=== PATIENT | male | born 1945 | race Asian ===

== ENCOUNTER 2016-10-30 00:36 | Inpatient (IN) | payer OTHER ==
[2016-10-30] VITALS (103 sets, daily range): BP systolic 65–179; BP diastolic 32–116; PULSE 79–156; RESP 11–27; TEMP 96; Ht 162.6 cm; Wt 65.0 kg
[~2016-10-30] VITALS: Ht 162.6 cm; Wt 65.0 kg
--- NOTE | 2016-10-30 00:50 | ERA ---
ER Documentation Chief Complaint Date/Time DATE: 10/30/16 TIME: 00:50 Chief Complaint mid abd pain and blood in stools today, weakness HPI The patient is a 71-year-old male, presenting to the ER because of having had one large bloody bowel movement at home. He was brought to the ER by his son. He complains of generalized weakness, denies syncope, near syncope, neck pain, chest pain, abdominal pain, vomiting, dysuria. He denies any history of gastrointestinal bleeding. He does not smoke nor drink Past medical history: Hypertension, chronic kidney disease, dyslipidemia, diabetes mellitus Past surgical history: Appendectomy ROS All systems reviewed and are negative except as per history of present illness. Allergies Allergies: Coded Allergies: No Known Allergy (Unverified , 10/30/16) Physical Exam Vitals Vital Signs Date Time Temp Pulse Resp B/P Pulse Ox O2 Delivery O2 Flow Rate FiO2 10/30/16 04:00 96.0 73 20 102/70 100 Mask 7.0 10/30/16 03:50 96.0 72 18 106/94 100 Mask 7.0 10/30/16 03:45 96.0 69 18 116/72 100 Mask 7.0 10/30/16 03:35 66 16 101/55 100 Mask 7.0 10/30/16 03:30 96.0 70 17 84/50 100 Mask 7.0 10/30/16 03:15 76 19 102/85 100 Room Air 10/30/16 03:00 99.8 74 14 96/62 100 Room Air 10/30/16 02:45 72 14 120/64 100 Room Air 10/30/16 01:55 97.6 79 21 100/52 100 Room Air 10/30/16 01:20 97.5 68 16 111/56 100 Room Air 10/30/16 00:50 76 17 110/53 100 Room Air 10/30/16 00:38 98.2 86 20 82/45 100 Physical Exam Const: No acute distress. Pale, Head: Atraumatic. Eyes: Normal Conjunctiva. ENT: Normal External Ears, Nose and Mouth. Neck: Full range of motion. No meningismus. Resp: Clear to auscultation bilaterally. Cardio: Regular rate and rhythm, no murmurs. Abd: Soft, non distended, normal bowel sounds, vague and diffuse abdominal discomfort, no rigidity, rebound, CVA tenderness Skin: No petechiae or rashes. Back: No midline or flank tenderness. Ext: No cyanosis, or edema. Neur: Limited due to his condition Psych: Limited due to his condition Result Diagram: 10/30/169910/30/1699 Results 24 hrs Laboratory Tests Test 10/30/16 01:00 Activated Partial Thromboplast Time 29.0Sec Alanine Aminotransferase (ALT/SGPT) 22IU/L Albumin 2.4g/dl Albumin/Globulin Ratio 0.80 Alkaline Phosphatase 129IU/L Anion Gap 16 Aspartate Amino Transf (AST/SGOT) 18IU/L Basophils # 0.110^3/ul Basophils % 0.6% Blood Urea Nitrogen 47mg/dl Calcium Level 7.5mg/dl Carbon Dioxide Level 21mmol/L Chloride Level 105mmol/L Creatinine 3.03mg/dl Direct Bilirubin 0.00mg/dl Eosinophils # 0.910^3/ul Eosinophils % 6.6% Globulin 3.00g/dl Glucose Level 205mg/dl Hematocrit 21.5% Hemoglobin 6.8g/dl INR International Normalized Ratio 0.93 Indirect Bilirubin 0.0mg/dl Lymphocytes # 3.110^3/ul Lymphocytes % 21.6% Mean Corpuscular Hemoglobin 27.5pg Mean Corpuscular Hemoglobin Concent 31.6g/dl Mean Corpuscular Volume 87.0fl Mean Platelet Volume 11.3fl Monocytes # 0.610^3/ul Monocytes % 4.4% Neutrophils # 9.410^3/ul Neutrophils % 66.2% Nucleated Red Blood Cells # 0.010^3/ul Nucleated Red Blood Cells % 0.0/100WBC Platelet Count 97826^3/UL Potassium Level 4.5mmol/L Prothrombin Time 12.5Sec Prothrombin Time Ratio 1.0 Red Blood Count 2.4710^6/ul Red Cell Distribution Width 14.5% Sodium Level 137mmol/L Total Bilirubin 0.0mg/dl Total Protein 5.4g/dl Troponin I 0.039ng/ml White Blood Count 14.210^3/ul Current Medications Medications (Trade) Dose Ordered Sig/Joan Route PRN Reason Start Time Stop Time Status Last Admin Dose Admin Sodium Chloride (NS) 1,000 ml @ 1,000 mls/hr Q1H STAT IV 10/30/16 00:58 10/30/16 01:57 DC 10/30/16 01:15 Ondansetron HCl (Zofran Inj) 4 mg ONCE STAT IV 10/30/16 02:05 10/30/16 02:06 DC 10/30/16 02:23 Procedures/MDM [place] [id number] [place] [id number] Radiology Main Line: [phone] DIAGNOSTIC IMAGING REPORT Patient: NAALI THORPE : 1945 Age: 71 Sex: M MR #: [id number] DOS: 10/30/16 0058 Ordering MD: PARISH SPRING MD Location: E/R Room/Bed: PROCEDURE: XR Chest. CLINICAL INDICATION: Upper GI bleed. TECHNIQUE: Single frontal chest x-ray. COMPARISON: None. FINDINGS: The cardiomediastinal silhouette is unremarkable. There is minimal left basilar atelectasis.. No focal infiltrate is seen. There is no pleural effusion. There is no pneumothorax. The osseous structures are unremarkable. IMPRESSION: Minimal left basilar atelectasis. RPTAT: HMVK .Parish Tran MD, MD Date Time Electronically viewed and signed by .Parish Tran MD, MD on 10/30/2016 01:16 .K/ CC: PARISH SPRING MD EKG: Read by emergency physician Rate/Rhythm: Normal Sinus Rhythm 70 beats/min QRS, ST, T-waves: No ST elevation, no T inversion, first-degree AV block, right bundle branch block Impression: Abnormal EKG MEDICAL MAKING DECISION: The patient is a 71-year-old male, presenting with acute lower GI bleed. He is hypotensive, however he is awake, alert, able to answer questions He has had about 4 bloody bowel movement in the ER. He was emergently treated with 2 units O- blood, and 2 packed red blood cell and 1 L normal saline, Zofran 4 mg IV for nausea with good response The differential diagnoses considered include but are not limited to carcinoma, polyp, hemorrhoid, fissure, diverticulosis, angiodysplasia., gastritis, peptic ulcer disease, esophageal varices, Kassie-Wiggins tear. Consultation: I discussed the patient with the on-call general surgeon Dr Arshad , who was made aware of the lab, the treatment, the patient condition. He accepted the consult at 2:20 AM and requested for emergent gastroenterology consultation before he see the patient I discussed the patient with the public policy mediator Dr Rivera at 2:30 am per the admitting physician Dr. Cheema's request. He was kind enough to come to the ER to evaluate the patient and does emergent colonoscopy in the OR Departure Diagnosis: Primary Impression: Acute GI bleeding Condition: Critical Comments I discussed the findings with the patient. I discussed the patient with his physician Dr. Cheema at 2:25 am who was made aware of the lab, the treatment, the patient condition. The patient is admitted to intensive care unit Critical Care: Time: 75 minutes excluding all billable procedures. Treatments/Evaluations: Close monitoring and treatment of unstable vital signs, cardiorespiratory, and neurologic status, while maintaining tight balance of fluid, respiratory, and cardiac interventions. PARISH SPRING MD Oct 30, 2016 00:50
[2016-10-30] MEDS ORDERED: SOD CHLORIDE 0.9% 1,000 ML IV STA (00:58)
--- NOTE | 2016-10-30 01:16 | RADRPT ---
PROCEDURE: XR Chest. CLINICAL INDICATION: Upper GI bleed. TECHNIQUE: Single frontal chest x-ray. COMPARISON: None. FINDINGS: The cardiomediastinal silhouette is unremarkable. There is minimal left basilar atelectasis.. No fo all infiltrate is seen. There is no pleural effusion. There is no pneumothorax. The osseous struc tures are unremarkable. IMPRESSION: Minimal left basilar atelectasis. RPTAT: HMVK .Parish Tran MD, Date Time Electronically viewed and signed by .Parish Tran MD, on 10/30/2016 01:16 .K/
[2016-10-30 01:17] LABS: ADD SCAN DIFF NO
[2016-10-30 01:21] LABS: ABNORMAL IP MESSAGE 1; BASOPHIL # 0.1 10^3/ul (0.0-0.1); BASOPHILS % 0.6 % (0.0-2.0); EOSINOPHILS # 0.9 10^3/ul (0.0-0.5); EOSINOPHILS % 6.6 % (0.0-7.0); HEMATOCRIT 21.5 % (42.0-52.0); LYMPHOCYTES # 3.1 10^3/ul (0.8-2.9); LYMPHOCYTES % 21.6 % (15.0-51.0); MEAN CORPUSCULAR HEMOGLOBIN 27.5 pg (29.0-33.0); MEAN CORPUSCULAR HGB CONC 31.6 g/dl (32.0-37.0); MEAN PLATELET VOLUME 11.3 fl (7.4-10.4); MONOCYTE # 0.6 10^3/ul (0.3-0.9); MONOCYTES % 4.4 % (0.0-11.0); NEUTROPHIL # 9.4 10^3/ul (1.6-7.5); NEUTROPHILS % 66.2 % (39.0-77.0); PLATELET COUNT 210 10^3/UL (140-415); RED BLOOD COUNT 2.47 10^6/ul (4.70-6.10); RED CELL DISTRIBUTION WIDTH 14.5 % (11.5-14.5); WHITE BLOOD COUNT 14.2 10^3/ul (4.8-10.8)
[2016-10-30 01:34] LABS: HEMOGLOBIN 6.8 g/dl (14.0-18.0)
[2016-10-30 01:35] LABS: INR 0.93; PROTIME 12.5 Sec (12.2-14.2)
[2016-10-30 01:40] LABS: ALBUMIN 2.4 g/dl (3.3-4.9)
[2016-10-30 01:41] LABS: POTASSIUM 4.5 mmol/L (3.5-5.1)
[2016-10-30 01:43] LABS: ALBUMIN/GLOBULIN RATIO 0.8; CREATININE 3.03 mg/dl (0.61-1.24); TOTAL PROTEIN 5.4 g/dl (6.1-8.1)
[2016-10-30 01:44] LABS: CALCIUM 7.5 mg/dl (8.4-10.2)
[2016-10-30 01:53] LABS: TROPONIN-I 0.039 ng/ml (0.00-0.12)
[2016-10-30] MEDS ORDERED: ONDANSETRON 4 MG INJ IV STA (02:05)
--- NOTE | 2016-10-30 03:37 | CONS ---
Date/Time of Note Date/Time of Note DATE: 10/30/16 TIME: 03:25 Assessment/Plan Assessment/Plan Chief Complaint/Hosp Course Impression: large volume hemorrhage surgery wishes for GI to do emergency colonoscopy first symptomatic anemia Recommendation: proceed to emergency colonoscopy for hemostasis if unable to identify the source of bleeding due to large volume BRBPR, will need surgery to see patient and consider colectomy for hemostasis son is aware of the risks of colonoscopy including perforation, aspiration, infection, and others. Knowing the alternatives which is surgery with colectomy for hemostasis, son wishes to proceed with colonoscopy for attempted hemostasis. Problems: Consultation Date/Type/Reason Admit Date/Time Date of Consultation: Oct 30, 2016 Type of Consultation: GI Reason for Consultation brbpr Referring Provider: ABBY RAMOS Hx of Present Illness 71 yo M, in his USOH until last night at 11 pm where he developed BRBPR associated with dizziness, lightheadedness, near syncope. His son brought him to the hospital for evaluation. In ER, he had several more episode of BRBPR. He is unable to give me any history due to his critical condition. Dr. Lucas called Dr. Arshad for emergency surgery however, Dr. Arshad wanted GI to do emergency colonoscopy to identify the source of bleeding first. I am at bedside and patient had another BRBPR with red clots. He is hypotensive and tachycardic. Due to his weakness and unable to provide any meaningful history, history obtained from ER MD Dr. Lucas and patient's son. Subjective hx not possible: pt non-verbal, pt critical Past Medical History CVA Medical History: coronary artery disease, GERD, GI bleed, hypertension Past Surgical History Past Surgical Hx: noncontributory Family History Significant Family History: no pertinent family hx Social History Alcohol Use: none Smoking Status: Never smoker Drug Use: none Exam/Review of Systems Vital Signs Vitals Vital Signs Date Time Temp Pulse Resp B/P Pulse Ox O2 Delivery O2 Flow Rate FiO2 10/30/16 03:15 76 19 102/85 100 Room Air 10/30/16 03:00 99.8 Intake and Output 10/29/16 10/29/16 10/30/16 15:00 23:00 07:00 Intake Total 1000 ml Balance 1000 ml Exam Constitutional: alert, oriented, well developed Psych: nl mood/affect, no complaints Head: atraumatic, normocephalic Eyes: EOMI, nl conjunctiva, nl lids, nl sclera ENMT: mucosa pink and moist, nl external ears & nose, nl lips & teeth, nl nasal mucosa & septum Neck: non-tender, supple Respiratory: clear to auscultation, normal air movement Cardiovascular: nl pulses, regular rate and rhythm Gastrointestinal: bowel sounds, non-tender, soft Genitourinary - Male: nl penis, other (BRBPR on rectal exam) Extremities: normal pulses Neurological: confused, lethargic Results Result Diagram: 10/30/169910/30/1699 Results 24 hrs Laboratory Tests Test 10/30/16 01:00 Activated Partial Thromboplast Time 29.0 Alanine Aminotransferase (ALT/SGPT) 22 Albumin 2.4 L Albumin/Globulin Ratio 0.80 Alkaline Phosphatase 129 H Anion Gap 16 Aspartate Amino Transf (AST/SGOT) 18 Basophils # 0.1 Basophils % 0.6 Blood Urea Nitrogen 47 H Calcium Level 7.5 L Carbon Dioxide Level 21 Chloride Level 105 Creatinine 3.03 H Direct Bilirubin 0.00 Eosinophils # 0.9 H Eosinophils % 6.6 Globulin 3.00 Glucose Level 205 Hematocrit 21.5 L Hemoglobin 6.8 *L INR International Normalized Ratio 0.93 Indirect Bilirubin 0.0 Lymphocytes # 3.1 H Lymphocytes % 21.6 Mean Corpuscular Hemoglobin 27.5 L Mean Corpuscular Hemoglobin Concent 31.6 L Mean Corpuscular Volume 87.0 Mean Platelet Volume 11.3 H Monocytes # 0.6 Monocytes % 4.4 Neutrophils # 9.4 H Neutrophils % 66.2 Nucleated Red Blood Cells # 0.0 Nucleated Red Blood Cells % 0.0 Platelet Count 210 Potassium Level 4.5 Prothrombin Time 12.5 Prothrombin Time Ratio 1.0 Red Blood Count 2.47 L Red Cell Distribution Width 14.5 Sodium Level 137 Total Bilirubin 0.0 L Total Protein 5.4 L Troponin I 0.039 White Blood Count 14.2 H GERTRUDE ARNDT MD Oct 30, 2016 03:36
[2016-10-30] MEDS ORDERED: DEXTROSE 5%-0.45% NACL 1,000 ML IV SCH (04:44)
[2016-10-30] MEDS ORDERED: LIDOCAINE 1% (MDV) 20 ML INJ ONE (04:45)
[2016-10-30] MEDS ORDERED: NALOXONE (0.4 MG/ML) INJ IV PRN (05:00)
[2016-10-30] MEDS ORDERED: ACETAMINOPHEN 325 MG TAB PO PRN (05:00)
[2016-10-30] MEDS ORDERED: ALBUTEROL/IPRATROPIUM (NEB) 3 ML AMP NEB SCH (05:00)
[2016-10-30] MEDS ORDERED: ZOLPIDEM 5 MG TAB PO PRN (05:00)
[2016-10-30] MEDS ORDERED: FLUMAZENIL 0.5 MG INJ IV PRN (05:00)
[2016-10-30] MEDS ORDERED: ACETAMINOPHEN 650MG/20.3ML CUP PO PRN (05:00)
[2016-10-30] MEDS ORDERED: DOCUSATE SODIUM 100 MG CAP PO PRN (05:00)
[2016-10-30] MEDS ORDERED: ONDANSETRON 4 MG INJ IV PRN (05:00)
[2016-10-30 05:20] LABS: AADO2 Arterial 299.2 mmHg (7.0-24.0); Arterial Base Excess -11.6 mmol/L (-3.0-3); Arterial COHb 0.3 % (0.0-3.0); Arterial Fraction of Oxyhgb 96.9 % (93.0-99.0); Arterial HCO3 13.3 mmol/L (22.0-26.0); Arterial MetHb 0.3 % (0.0-1.5); MODE MASK - SIMPLE
[2016-10-30] MEDS ORDERED: OCTREOTIDE 50 MCG in SOD CHLORIDE 0.9% 50 ML IVPB ONE (05:30)
[2016-10-30] MEDS ORDERED: PHENYLephrine (100 MCG/ML) 5ML SYG ONE (05:53)
[2016-10-30] MEDS ORDERED: PANTOPRAZOLE 40 MG INJ IV SCH (06:00)
--- NOTE | 2016-10-30 06:26 | OPR ---
Date/Time of Note Date/Time of Note DATE: 10/30/16 TIME: 06:24 Operative Report Free Text/Dictation Impression: 1. massive hematochezia 2. bleeding source likely between 2nd portion of duodenum to ileum Recommendation: 1. protonix and octreotide gtt 2. RBC scan 3. Dr. Arshad to consider intra-op enteroscopy by running bowel over the scope and resect the bleeding source Above discussed with Dr. Cheema and Jeancarlos. Procedure Date: Oct 30, 2016 Preoperative Diagnosis massive hematochezia Postoperative Diagnosis likely bleeding source is between 2nd portion of duodenum and ileum (portion of gut not reachable with standard endoscopy) Operation Performed EGD with biopsy, colonoscopy Surgeon: GERTRUDE ARNDT MD Anesthesia: general, MAC Estimated Blood Loss: 200 - 250 ml's Complications: None Pt Condition Post Procedure: stable Disposition: PACU Indications massive hematochezia. Anesthesia is needed as patient is hemodynamically unstable, high aspiration risk, and needed to intubate and protect airway and to provide other support for safer controlled environment for this high risk procedure. Operative Findings 1. fresh red blood with clots throughout the colon 2. cecum reached as evidenced by appendiceal orifice and IC valve. photodocumentation done. 3. IC valve is covered with clot. I tried to suction up the blood and remove clot but I am unable to intubate into the ileum due to clot in the opening of IC valve that I cannot shave off or suction off. 4. Thickened antral fold, s/p biopsy Procedure Description After time out and informed consent, I performed rectal exam that showed normal rectal tone and fresh blood with clots. I then inserted an adult colonoscope from the anus and advanced to the cecum. The cecum is also full of fresh blood with clots. I removed the clots and suctioned the blood. After which appendiceal orifice is identified. I then identified IC valve but the opening is blocked with clot. As a result, I cannot intubate the ileum. Retroflexion was not done due to blood clots and I do not feel I can safely retroflex. At the end of the procedure, I relayed the findings to Dr. Arshad. We decided to do EGD to see if he has brisk upper GI bleed. I then called his son and his son agreed to give inform consent for EGD after I answered all of his questions and explained risks, alternatives. I then inserted an EGD scope from the mouth and advanced to 2nd portion of duodenum. There were no bleeding source in the upper GI to 2nd portion of duodenum. The antrum appeared thickened which I took random biopsy. I then suctioned out the air while remove the EGD scope completely. GERTRUDE ARNDT MD Oct 30, 2016 06:26
[2016-10-30] MEDS ORDERED: FENTAnyl 50 MCG/ML VIAL ONE (06:29)
[2016-10-30] MEDS ORDERED: ETOMIDATE 20 MG INJ ONE (07:00)
[2016-10-30 07:51] LABS: AADO2 Arterial 212.3 mmHg (7.0-24.0); Arterial Base Excess -14.5 mmol/L (-3.0-3); Arterial COHb 0.3 % (0.0-3.0); Arterial Fraction of Oxyhgb 95.6 % (93.0-99.0); Arterial HCO3 13.4 mmol/L (22.0-26.0); Arterial MetHb 0.5 % (0.0-1.5); Blood Gas Low PEEP Setting 0 cmH2O; MODE VENT - AC
[2016-10-30] MEDS ORDERED: NORepinephrine 8MG/250 ML (PMX 250 ML ONE (08:48)
[2016-10-30 09:08] LABS: ADD SCAN DIFF NO
[2016-10-30 09:14] LABS: ABNORMAL IP MESSAGE 1; HEMATOCRIT 29.8 % (42.0-52.0); HEMOGLOBIN 9.6 g/dl (14.0-18.0); MEAN CORPUSCULAR HEMOGLOBIN 29.7 pg (29.0-33.0); MEAN CORPUSCULAR HGB CONC 32.2 g/dl (32.0-37.0); MEAN CORPUSCULAR VOLUME 92.3 fl (82.0-101.0); MEAN PLATELET VOLUME 11.3 fl (7.4-10.4); PLATELET COUNT 61 10^3/UL (140-415); RED BLOOD COUNT 3.23 10^6/ul (4.70-6.10); RED CELL DISTRIBUTION WIDTH 14.2 % (11.5-14.5); WHITE BLOOD COUNT 22.6 10^3/ul (4.8-10.8)
[2016-10-30 09:19] LABS: INR 1.82; POTASSIUM 5.4 mmol/L (3.5-5.1); PROTIME 21.2 Sec (12.2-14.2); PT RATIO 1.7
[2016-10-30 09:21] LABS: ALBUMIN/GLOBULIN RATIO 0.66; BILIRUBIN,INDIRECT 0.9 mg/dl (0-1.1); BILIRUBIN,TOTAL 0.9 mg/dl (0.2-1.3); CREATININE 2.46 mg/dl (0.61-1.24); TOTAL PROTEIN 2.5 g/dl (6.1-8.1)
[2016-10-30] MEDS: OCTREOTIDE 1 MG in SOD CHLORIDE 0.9% 95 ML IV SCH (09:30)
[2016-10-30] MEDS: PANTOPRAZOLE IV 80 MG in SOD CHLORIDE 0.9% 100 ML IV SCH ×3 (09:30→19:59)
[2016-10-30 09:33] LABS: CALCIUM 5.3 mg/dl (8.4-10.2)
--- NOTE | 2016-10-30 09:58 | CONS ---
DATE OF ADMISSION: 10/30/2016 DATE OF CONSULTATION: 10/30/2016 PULMONARY CONSULTATION Thank you, Dr. Rivera, for this consultation. HISTORY OF PRESENT ILLNESS: This is an unfortunate 71-year-old gentleman who presented to the ER wi th a large bloody bowel movement with associated nausea and vomiting. Denied any active GI bleeding that he was aware of prior to this. SOCIAL HISTORY: Nonsmoker, no alcohol, no history of drug use. FAMILY HISTORY: Noncontributory. SYSTEMS REVIEW: A 12-point review of systems, currently unable to perform. PAST MEDICAL HISTORY: Hypertension, hyperlipidemia, chronic kidney disease. LABORATORY DATA: Initial hemoglobin was 6.8. The patient underwent emergent EGD and colonoscopy with Dr. Rivera and found to have a bleeding source between the second portion of the duodenum and the ileum. He remains intubated, on mechanical venti lation, receiving packed red blood cells, requiring initiation of vasopressor support. PAST MEDICAL HISTORY: As above. MEDICATIONS: Per chart. ALLERGIES: NONE KNOWN. SOCIAL HISTORY: Nonsmoker, no alcohol, no history of drug use. FAMILY HISTORY: Noncontributory. REVIEW OF SYSTEMS: A 12-point review of systems was unable to be performed. PHYSICAL EXAMINATION: GENERAL: An elderly gentleman, intubated, on mechanical ventilation. Appears comfortable at rest, in no acute distress. VITAL SIGNS: Currently afebrile, pulse is 100, blood pressure 80/40, O2 saturation 96% on FIO2 of 1 00%. NECK: Supple. No JVD or lymphadenopathy. CARDIAC EXAM: S1, S2. No added sounds or murmurs. CHEST: Diminished air entry bilaterally. ABDOMEN: Soft, nontender. No guarding or rebound. EXTREMITIES: No cyanosis, clubbing or edema. NEUROLOGIC: Unable to assess. LABORATORIES: White count 22.6, hemoglobin 9.6, platelets of 69. BUN 47, creatinine 3.03. Arteria l blood gas with a pH of 7.156, pCO2 of 38, pO2 of 100, bicarbonate was 13.4, INR is 1.82. IMPRESSION AND PLAN: 1. Acute gastrointestinal bleed, etiology of which remains unclear, possibly small bowel. 2. Coagulopathy. 3. Severe metabolic acidosis, likely secondary to hypoperfusion. 4. Severe hypovolemic septic shock. The patient will require: 1. Aggressive volume resuscitation. 2. Vasopressor support. 3. Correction of metabolic acidosis. 4. Gastrointestinal recommendations. 5. DVT and GI prophylaxis. Dictated By: JIAN GALLEGOS/INOCENCIO Conf#: [id number] DID#: [id number]
[2016-10-30] MEDS ORDERED: NA BICARBONATE 8.4% 50 ML SYG IV ONE (10:00)
[2016-10-30] MEDS ORDERED: NORepinephrine 8MG/250 ML (PMX 250 ML IV SCH (10:00)
[2016-10-30 10:36] LABS: PLATELET ESTIMATE PLT APPEAR DECREASED
[2016-10-30 10:37] LABS: EOSINOPHILS # 0.5 10^3/ul (0.0-0.5); LYMPHOCYTES # 1.4 10^3/ul (0.8-2.9); MONOCYTE # 0.7 10^3/ul (0.3-0.9); NEUTROPHIL # 15.8 10^3/ul (1.6-7.5)
[2016-10-30] MEDS ORDERED: CALCIUM GLUCONATE 10% 1 GM in SOD CHLORIDE 0.9% 100 ML IVPB ONE (11:00)
[2016-10-30] MEDS: morphine 2 MG INJ IV PRN (11:20)
[2016-10-30] MEDS ORDERED: LIDOCAINE 1% (MDV) 20 ML INJ SC ONE (13:30)
[2016-10-30] MEDS: MIDAZOLAM (DRIP) 50 mg/50 mL 50 ML IV SCH (13:34)
[2016-10-30 15:04] LABS: AADO2 Arterial 161.6 mmHg (7.0-24.0); Arterial Base Excess -8.2 mmol/L (-3.0-3); Arterial COHb 0.3 % (0.0-3.0); Arterial Fraction of Oxyhgb 97.6 % (93.0-99.0); Arterial HCO3 17.1 mmol/L (22.0-26.0); Arterial MetHb 0.5 % (0.0-1.5); Arterial Total Hemglobin 11.6 g/dl (12.0-18.0); Blood Gas Low PEEP Setting 0 cmH2O; MODE VENT - AC
[2016-10-30] MEDS ORDERED: ATOR80TA75 PO (16:03)
[2016-10-30] MEDS ORDERED: ASPI-664 PO (16:03)
[2016-10-30] MEDS ORDERED: AMLO-147 PO (16:03)
[2016-10-30] MEDS ORDERED: CLOP75TA27 PO (16:05)
[2016-10-30] MEDS ORDERED: CHOL100062 PO (16:05)
[2016-10-30] MEDS ORDERED: LORA10TA3 PO (16:18)
[2016-10-30] MEDS ORDERED: TAMS0.4C2 PO (16:18)
[2016-10-30] MEDS ORDERED: GABA300C16 PO (16:18)
--- NOTE | 2016-10-30 16:50 | CONS ---
DATE OF ADMISSION: 10/30/2016 DATE OF CONSULTATION: 10/30/2016 TYPE OF CONSULTATION: Surgical. REASON FOR CONSULTATION: GI bleeding. HISTORY OF PRESENT ILLNESS: The patient is a 71-year-old gentleman who was brought by his son to [facility] emergency room last night. The son is an employee here at [employer]. He had b right red blood per rectum and hypotension. He required resuscitation with fluids and blood. He un derwent an emergency colonoscopy and EGD. The colonoscopy from anus to the cecum showed no source o f bleeding. There was clot extruding through the ileocecal valve. This was followed by an EGD. EG D showed a normal stomach and first portion of the duodenum. It was presumed that the bleeding sour ce may be between the second and fourth portions of the duodenum. The patient was transferred to [facility] intensive care unit, where he has been maintained on Levophed, and has now just completed his 8th unit of packed cells. His vital signs have stabilized significantly and he is no longer passing bl ood per rectum. He is scheduled to undergo a bleeding scan tomorrow. PAST MEDICAL HISTORY: The patient has a history of coronary artery disease, hypertension and CVA, l eaving him with left-sided weakness. REVIEW OF SYSTEMS: HEAD, EARS, EYES, NOSE AND THROAT: CVA as noted above. PULMONARY: No history of pneumonia or shortness of breath. CARDIAC: Atherosclerotic heart disease. No history of IL. GENITOURINARY: The patient has a history of chronic renal failure. Other comorbidities include diabetes mellitus. OUTPATIENT MEDICATIONS: Unknown. ALLERGIES: NONE. PHYSICAL EXAMINATION: GENERAL: The patient is intubated and on the ventilator. HEAD, EARS, EYES, NOSE, THROAT: Sclerae are anicteric. LUNGS: Clear. HEART: Regular rhythm. ABDOMEN: Entirely soft and nontender. EXTREMITIES: Unremarkable. LABORATORY DATA: The most recent H and H was drawn at 9:00 a.m. this morning and showed a hemoglobi n of 9.6, with a hematocrit of 29.8, as well as a white count of 22,500. His INR is abnormal, with a PT of 21.2 and an INR of 1.82. IMPRESSION: Massive gastrointestinal bleed. Etiology unknown, in the small bowel. PLAN: Continue with supportive measures. Follow up bleeding scan. If the patient does come to expl oratory surgery, we will arrange for intraoperative endoscopy. I will follow with you. Dictated By: PALOMO HUGGINS/INOCENCIO Conf#: [id number] DID#: [id number] CC: ABBY RAMOS MD;*EndCC*
[2016-10-30 17:22] LABS: INR 1.23; PARTIAL THROMBOPLASTIN TIME 32.4 Sec (25.0-35.0); PROTIME 15.6 Sec (12.2-14.2); PT RATIO 1.2; THROMBIN TIME 18.3 SEC (13.8-19.1)
[2016-10-30 17:51] LABS: HEMOGLOBIN 11.5 g/dl (14.0-18.0)
--- NOTE | 2016-10-30 18:16 | QN ---
Documentation Comment [id number] ABBY RAMOS MD Oct 30, 2016 18:15
[2016-10-30 19:59] LABS: ADD UMIC YES; URINE BILIRUBIN (Dip) NEGATIVE (NEGATIVE); URINE BLOOD (Dip) TRACE (NEGATIVE); URINE COLOR LT. YELLOW (YELLOW); URINE KETONES (Dip) TRACE (NEGATIVE); URINE LEUKOCYTE ESTERASE (Dip) NEGATIVE (NEGATIVE); URINE NITRITE (Dip) NEGATIVE (NEGATIVE); URINE TOTAL PROTEIN (Dip) 2+ (NEGATIVE); URINE UROBILINOGEN (Dip) 0.2 E.U./dL (0.1-1.0)
--- NOTE | 2016-10-30 20:19 | RADRPT ---
PROCEDURE: XR Chest. CLINICAL INDICATION: Check PICC line position. TECHNIQUE: Single frontal view. COMPARISON: 10/30/2016. FINDINGS: There is a left arm PICC line with the tip in the lower superior vena cava. The endotracheal tube i s at the level of the clavicles and should be advanced approximately 4.5 cm. Mild atelectasis at th e lung bases is unchanged. The lungs are otherwise clear. The heart is mildly enlarged. There is calcification in the aorta consistent with atherosclerosis. There is no pleural effusion. There is no pneumothorax. IMPRESSION: 1. Satisfactory position of left arm PICC line. 2. The endotracheal tube should be advanced approximately 4.5 cm. 3. Mild atelectasis at the lung bases. 4. Mild cardiomegaly and atherosclerosis. RPTAT: QQ .Allen Mackey MD, MD Date Time Electronically viewed and signed by .Allen Mackey MD, on 10/30/2016 20:18 .R/
[2016-10-30] MEDS: SODIUM BICARBONATE (IV ADD) 100 MEQ in DEXTROSE 5% 1,000 ML IV SCH (20:32)
--- NOTE | 2016-10-30 20:53 | HP ---
DATE OF ADMISSION: 10/30/2016 HISTORY OF PRESENT ILLNESS: Mr. Duran patient is a 71-year-old male, who presented to this hospital with gastrointestinal bleed, was taken to surgery by Dr. Rivera. The patient also was seen by Dr. Anjum Arshad with massive GI bleed. The patient has massive hematochezia, bleeding source, likely between second portion of the duodenum. That was Dr. Rivera's impression. The patient has had EGD with biopsy and colonoscopy done, shows fresh red blood with clots throughout the colon and cecum reached as evidenced by appendiceal orifice, antral fold. The patient was intubated and transferred to ICU. PAST MEDICAL HISTORY: Cannot be obtained. ALLERGIES, FAMILY HISTORY, SOCIAL HISTORY: Cannot be obtained. MEDICATION HISTORY: Cannot be obtained. Patient's listed medicines include, patient is on: 1. Amlodipine. 2. Aspirin. 3. Lipitor. 4. Vitamin D3. 5. Plavix. 6. Gabapentin. 7. Loratadine. 8. Flomax. REVIEW OF SYSTEMS: Cannot be obtained. PHYSICAL EXAMINATION GENERAL: The patient is intubated, on pressors. VITAL SIGNS: Pulse of 90, blood pressure 105/42. HEENT: Head is atraumatic, normocephalic. Pupils equal, reactive to light. NECK: Supple. No JVD. LUNGS: Clear. CARDIOVASCULAR: S1, S2 normal. ABDOMEN: Soft, nontender. Bowel sounds positive. EXTREMITIES: No cyanosis, clubbing, or edema. LABORATORY DATA: The patient's WBC 14.2, hematocrit 21.5, platelet count of 210. INR 1.7, sodium 137, potassium 5.4. Patient's CO2 21 earlier BUN 40, creatinine 3.03, glucose 360, patient's calcium 7.5, _ 5.3. The patient's albumin 1.0. IMPRESSION: 1. Patient has massive gastrointestinal bleed. 2. Hyperkalemia. 3. Metabolic acidosis and acute kidney injury. 4. Incomplete database. 5. Hypoalbuminemia. PLAN: 1. Give this patient IV fluid. The patient is currently on Levophed. The patient is on octreotide drip, Protonix, Zofran. 2. The patient will be given sodium bicarbonate as well as patient is going to be monitored very closely. The patient carries poor prognosis. Dictated By: ABBY RAMOS MD BS/INOCENCIO Conf#: [id number] DID#: [id number] MTDD
[2016-10-30 20:55] LABS: SQUAMOUS EPITHELIAL CELL,UR FEW; URINE RBCS 0-2 /HPF (0)
[2016-10-30 20:56] LABS: BACTERIA,URINE FEW
--- NOTE | 2016-10-30 21:05 | RADRPT ---
PROCEDURE: Ultrasound guidance for placement of needle in left upper extremity vein. CLINICAL INDICATION: Venous access. TECHNIQUE: Limited sonography of the left upper extremity was performed. Ultrasound images were recorded and s tored in the patient's medical record. COMPARISON: None. FINDINGS: The ultrasound images demonstrate a patent left upper extremity vein. The PICC line was inserted by the PICC line nurse. IMPRESSION: 1. Ultrasound guidance for a needle placement in a left upper extremity vein. 2. The left upper extremity vein is patent. RPTAT: QQ .Allen Mackey MD, MD Date Time Electronically viewed and signed by .Allen Mackey MD, MD on 10/30/2016 21:04 .R/
[2016-10-30] MEDS ORDERED: SOD CHLORIDE 0.9% 100 ML ONE (21:09)
[2016-10-30] MEDS: IPRATROPIUM (HFA) 12.9 GM INHALER INH SCH (22:01)
[2016-10-30] MEDS: ALBUTEROL HFA 8 GM INHALER INH SCH (22:01)
[2016-10-31] VITALS (106 sets, daily range): BP systolic 98–176; BP diastolic 37–87; PULSE 73–119; RESP 16–31
[2016-10-31 00:12] LABS: HEMATOCRIT 22.7 % (42.0-52.0)
[2016-10-31] MEDS: ALBUTEROL HFA 8 GM INHALER INH SCH ×6 (01:10→20:00)
[2016-10-31] MEDS: IPRATROPIUM (HFA) 12.9 GM INHALER INH SCH ×6 (01:10→20:00)
[2016-10-31] MEDS: OCTREOTIDE 1 MG in SOD CHLORIDE 0.9% 95 ML IV SCH ×2 (02:05→22:05)
[2016-10-31] MEDS: SODIUM BICARBONATE (IV ADD) 100 MEQ in DEXTROSE 5% 1,000 ML IV SCH ×3 (04:35→22:05)
[2016-10-31] MEDS: morphine 2 MG INJ IV PRN (04:41)
[2016-10-31] MEDS: MIDAZOLAM (DRIP) 50 mg/50 mL 50 ML IV SCH (05:57)
[2016-10-31] MEDS: PANTOPRAZOLE IV 80 MG in SOD CHLORIDE 0.9% 100 ML IV SCH ×2 (06:07→16:51)
[2016-10-31 06:51] LABS: ADD SCAN DIFF NO
[2016-10-31 07:02] LABS: ABNORMAL IP MESSAGE 1; BASOPHILS % 0.2 % (0.0-2.0); EOSINOPHILS % 0.2 % (0.0-7.0); HEMATOCRIT 24.3 % (42.0-52.0); HEMOGLOBIN 8.3 g/dl (14.0-18.0); LYMPHOCYTES # 2.7 10^3/ul (0.8-2.9); MEAN CORPUSCULAR HEMOGLOBIN 29.3 pg (29.0-33.0); MEAN CORPUSCULAR HGB CONC 34.2 g/dl (32.0-37.0); MEAN CORPUSCULAR VOLUME 85.9 fl (82.0-101.0); MEAN PLATELET VOLUME 12.6 fl (7.4-10.4); MONOCYTE # 1.2 10^3/ul (0.3-0.9); MONOCYTES % 7.2 % (0.0-11.0); NEUTROPHIL # 12.9 10^3/ul (1.6-7.5); NEUTROPHILS % 76.1 % (39.0-77.0); NUCLEATED RED BLOOD CELLS% 0.1 /100WBC (0.0-0.0); PLATELET COUNT 69 10^3/UL (140-415); RED BLOOD COUNT 2.83 10^6/ul (4.70-6.10); RED CELL DISTRIBUTION WIDTH 14.9 % (11.5-14.5)
[2016-10-31 07:10] LABS: POTASSIUM 4.7 mmol/L (3.5-5.1)
[2016-10-31 07:13] LABS: CREATININE 3.96 mg/dl (0.61-1.24)
[2016-10-31 07:14] LABS: MAGNESIUM 1.6 mg/dl (1.7-2.5); PHOSPHORUS 4.9 mg/dl (2.5-4.9)
--- NOTE | 2016-10-31 08:35 | RADRPT ---
PROCEDURE: XR Chest. CLINICAL INDICATION: Shortness of breath. TECHNIQUE: Single frontal view. COMPARISON: 10/30/2016. FINDINGS: The endotracheal tube is at the level of the clavicles and should be advanced approximately 4 cm. A left arm PICC line is present with the tip in the lower superior vena cava. Mild atelectasis at th e lung bases is unchanged. The lungs are otherwise clear. The heart is mildly enlarged. There is calcification in the aorta consistent with atherosclerosis. There is no pleural effusion. There is no pneumothorax. IMPRESSION: 1. Endotracheal tube should be advanced approximately 4 cm. 2. Left arm PICC line in satisfactory position. 3. Mild atelectasis at the lung bases. 4. Mild cardiomegaly and atherosclerosis. RPTAT: QQ .Allen Mackey MD, MD Date Time Electronically viewed and signed by .Allen Mackey MD, MD on 10/31/2016 08:34 .R/
[2016-10-31 08:49] LABS: AADO2 Arterial 164.6 mmHg (7.0-24.0); Arterial Base Excess -3.1 mmol/L (-3.0-3); Arterial COHb 0.2 % (0.0-3.0); Arterial Fraction of Oxyhgb 94.2 % (93.0-99.0); Arterial HCO3 21.3 mmol/L (22.0-26.0); Arterial MetHb 0.5 % (0.0-1.5); Arterial Total Hemglobin 9.7 g/dl (12.0-18.0); MODE VENT - AC
[2016-10-31] MEDS ORDERED: ACETAMINOPHEN 650 MG SUPP PR PRN (09:00)
[2016-10-31] MEDS: PIPER-TAZO 3.375 GM IV (PMX) 100 ML IVPB SCH ×3 (10:26→22:05)
--- NOTE | 2016-10-31 10:33 | PN ---
DATE: 10/31/2016 The patient's bleeding apparently has stopped. His vital signs are stable. He has spiked a fever t o 102. His white count, however, has come down to 17,000. The abdominal examination remains benign . There has been no bloody output through the rectum overnight. PLAN: Blood cultures have been drawn. The patient is scheduled for a bleeding scan sometime today. Dictated By: PALOMO HUGGINS/INOCENCIO Conf#: [id number] DID#: [id number]
[2016-10-31 11:02] LABS: ADD UMIC YES; URINE BILIRUBIN (Dip) NEGATIVE (NEGATIVE); URINE BLOOD (Dip) 2+ (NEGATIVE); URINE COLOR LT. YELLOW (YELLOW); URINE KETONES (Dip) NEGATIVE (NEGATIVE); URINE LEUKOCYTE ESTERASE (Dip) TRACE (NEGATIVE); URINE NITRITE (Dip) NEGATIVE (NEGATIVE); URINE TOTAL PROTEIN (Dip) 2+ (NEGATIVE); URINE UROBILINOGEN (Dip) 0.2 E.U./dL (0.1-1.0)
[2016-10-31 11:16] LABS: BACTERIA,URINE FEW
--- NOTE | 2016-10-31 11:34 | CONS ---
Date/Time of Note Date/Time of Note DATE: 10/31/16 TIME: 11:31 Assessment/Plan Assessment/Plan Additional Assessment/Plan Ventilator settings AC of 10, tidal volume 375, PEEP of 0, 40% FiO2. Next Assessment recommendations; 1. Patient admitted with GI bleed with negative EGD and colonoscopy. Hematocrit is stable. 2. Chronic renal insufficiency. 3. Patient also admitted with severe metabolic acidosis with interval correction. Likely from GI bleed causing hypoperfusion. 4. Thrombocytopenia. 5. Patient adequately fluid resuscitated. Off pressor support. 6. Episode of fever spike. No obvious focus of infection. Continue current treatment for now stop sedation to assess mental status. Once the patient is off sedative effect he will be evaluated for possible weaning from ventilator. Consultation Date/Type/Reason Admit Date/Time Oct 30, 2016 at 08:00 Initial Consult Date 10/30/16 Type of Consultation: Pulmonary/critical care Referring Provider: ABBY RAMOS MD 24 HR Interval Summary Free Text/Dictation Patient condition remains critical. Still on full ventilator support. Patient also being on sedation. No overt GI bleed noted. General exam; elderly male, orally intubated, sedated, currently in no distress. Exam/Review of Systems Vital Signs Vitals Vital Signs Date Time Temp Pulse Resp B/P Pulse Ox O2 Delivery O2 Flow Rate FiO2 10/31/16 09:15 112 20 161/46 99 10/31/16 09:00 Mechanical Ventilator 10/31/16 08:00 101.6 10/31/16 08:00 50 10/30/16 05:15 6.0 Intake and Output 10/30/16 10/30/16 10/31/16 15:00 23:00 07:00 Intake Total 1307.0 ml 1237.6 ml 871 ml Output Total 270 ml 210 ml 160 ml Balance 1037.0 ml 1027.6 ml 711 ml Exam H EENT examination; supple neck, no JVD. No lymphadenopathy. Midline trachea. Orally intubated. Patient has fair dentition. Pupils are midsize and reactive to light. No thyromegaly. Chest examination; clear to auscultation bilaterally. S1-S2 audible, no murmurs. Regular rhythm. Abdomen examination; soft, nondistended. No organomegaly. Bowel sounds audible. Extremity examination; no peripheral edema. Pulses 1+ bilaterally. Chronic appearing skin changes are present in both feet. 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 Results Result Diagram: 10/31/16 0600 10/31/16 0600 Results 24 hrs Laboratory Tests Test 10/30/16 14:00 10/30/16 16:27 10/30/16 17:45 10/31/16 00:01 Arterial Blood HCO3 17.1 L Arterial Blood Base Excess -8.2 L Arterial Blood Oxygen Saturation 98.4 H Ankit Test N/A Arterial Blood Gas Puncture Site A-Line Arterial Blood Carboxyhemoglobin 0.3 Arterial Blood Date Drawn 10/30/2016 2:50:51 PM Arterial Blood Methemoglobin 0.5 Arterial Blood pCO2 (Temp correct) 34.6 L Arterial Blood pH (Temp corrected) 7.312 L Arterial Blood pO2 (Temp corrected) 156.0 H Blood Gas A-a O2 Differential 161.6 H Blood Gas Actual Respiration Rate 18 Blood Gas Low PEEP Setting 0 Blood Gas Modality VENT - AC Blood Gas Notified Time 10/30/2016 3:04:36 PM Blood Gas Notified Whom JLD Blood Gas Respiration Rate 10.0 Blood Gas Specimen Source Blood arterial Blood Gas Temperature 37.0 Blood Gas Tidal Volume 375.0 FiO2 50.0 Oxyhemoglobin Percent 97.6 Total Hemoglobin 11.6 L Activated Partial Thromboplast Time 32.4 Ammonia < 9 L Hematocrit 33.0 L 22.7 #L Hemoglobin 11.5 L 8.0 #L INR International Normalized Ratio 1.23 Platelet Count 60 L Prothrombin Time 15.6 #H Prothrombin Time Ratio 1.2 Thrombin Time 18.3 Urine Bacteria FEW Urine Bilirubin NEGATIVE Urine Clarity SLIGHTLY CLOUDY Urine Color LT. YELLOW Urine Glucose 0.25% H Urine Hemoglobin TRACE Urine Ketones TRACE Urine Leukocyte Esterase NEGATIVE Urine Microscopic RBC 0-2 Urine Microscopic WBC 0-2 Urine Nitrite NEGATIVE Urine Specific [place] 1.025 Urine Squamous Epithelial Cells FEW Urine Total Protein 2+ H Urine Urobilinogen 0.2 E.U./dL Urine pH 5.0 Test 10/31/16 06:00 10/31/16 07:00 10/31/16 10:15 Anion Gap 14 Basophils # 0.0 Basophils % 0.2 Blood Urea Nitrogen 56 H Calcium Level 6.0 L Carbon Dioxide Level 22 # Chloride Level 106 # Creatinine 3.96 #H Eosinophils # 0.0 Eosinophils % 0.2 Glucose Level 395 H Hematocrit 24.3 L Hemoglobin 8.3 L Lymphocytes # 2.7 Lymphocytes % 16.0 Magnesium Level 1.6 L Mean Corpuscular Hemoglobin 29.3 Mean Corpuscular Hemoglobin Concent 34.2 Mean Corpuscular Volume 85.9 Mean Platelet Volume 12.6 H Monocytes # 1.2 H Monocytes % 7.2 Neutrophils # 12.9 H Neutrophils % 76.1 Nucleated Red Blood Cells # 0.0 Nucleated Red Blood Cells % 0.1 H Phosphorus Level 4.9 Platelet Count 69 L Potassium Level 4.7 Red Blood Count 2.83 L Red Cell Distribution Width 14.9 H Sodium Level 137 White Blood Count 17.0 #H Arterial Blood HCO3 21.3 L Arterial Blood Base Excess -3.1 L Arterial Blood Oxygen Saturation 94.9 L Ankit Test N/A Arterial Blood Gas Puncture Site A-Line Arterial Blood Carboxyhemoglobin 0.2 Arterial Blood Date Drawn 10/31/2016 8:25:00 AM Arterial Blood Methemoglobin 0.5 Arterial Blood pCO2 (Temp correct) 35.8 Arterial Blood pH (Temp corrected) 7.393 Arterial Blood pO2 (Temp corrected) 79.4 L Blood Gas A-a O2 Differential 164.6 H Blood Gas Actual Respiration Rate 22 Blood Gas Low PEEP Setting 5.0 Blood Gas Modality VENT - AC Blood Gas Notified Time 10/31/2016 8:47:00 AM Blood Gas Notified Whom DT Blood Gas Respiration Rate 10.0 Blood Gas Specimen Source Blood arterial Blood Gas Temperature 37.0 Blood Gas Tidal Volume 375.0 FiO2 40.0 Oxyhemoglobin Percent 94.2 Total Hemoglobin 9.7 L Urine Bacteria FEW Urine Bilirubin NEGATIVE Urine Clarity HAZY Urine Color LT. YELLOW Urine Glucose 0.25% H Urine Hemoglobin 2+ H Urine Ketones NEGATIVE Urine Leukocyte Esterase TRACE H Urine Microscopic RBC 2-5 Urine Microscopic WBC 10-25 Urine Nitrite NEGATIVE Urine Specific [place] 1.025 Urine Total Protein 2+ H Urine Urobilinogen 0.2 E.U./dL Urine pH 5.5 Medications Medications Current Medications Flumazenil (Romazicon) 0.2 mg Q1M PRN IV BENZODIAZEPINE OVERDOSE; Start at 05:00 Naloxone HCl (Narcan) 0.4 mg Q3M PRN IV DECREASED REPIRATORY RATE; Start at 05:00 Ondansetron HCl (Zofran Inj) 4 mg Q6H PRN IV NAUSEA AND/OR VOMITING; Start 06/08 at 05:00 Acetaminophen (Tylenol Liquid) 650 mg Q6H PRN PO PAIN LEVEL 1-3 OR FEVER; Start 10/30/16 at 05:00 Acetaminophen (Tylenol Tab) 650 mg Q6H PRN PO PAIN LEVEL 1-3 OR FEVER; Start at 05:00 Morphine Sulfate (morphine) 2 mg Q4H PRN IV PAIN LEVEL 7-10 Last administered on 10/31/16 04:41; Admin Dose 2 MG; Start 10/30/16 at 05:00 Zolpidem Tartrate (Ambien) 5 mg QHS PRN PO INSOMNIA; Start 10/30/16 at 05:00 Docusate Sodium 100 mg 100 mg Q12H PRN PO CONSTIPATION; Start 10/30/16 at 05:00 Octreotide Acetate 1 mg/ Sodium Chloride 100 ml @ 5 mls/hr Q20H IV Last administered on 10/31/16 02:05; Admin Dose 5 MLS/HR; Start 10/30/16 at 05:45 Pantoprazole 80 mg/Sodium Chloride 100 ml @ 10 mls/hr Q10H IV Last administered on 10/31/16 06:07; Admin Dose 10 MLS/HR; Start 10/30/16 at 05:30 Norepinephrine 16 mg/Dextrose 500 ml @ 1.87 mls/hr TITRATE IV ; Start 10/30/16 at 10:00 Midazolam HCl (Versed) 50 ml @ 1 mls/hr TITRATE IV Last administered on 05:57; Admin Dose 2 MLS/HR; Start 10/30/16 at 13:30 Influenza Virus Vaccine 0.5 ml 0.5 ml ONCE ONCE IM* ; Start 11/02/16 at 09:00; Stop 11/02/16 at 09:01 Sodium Bicarbonate/ Dextrose (Na Bicarb/D5W) 1,100 ml @ 125 mls/hr Q8H48M IV Last administered on 10/31/16 04:35; Admin Dose 125 MLS/HR; Start 10/30/16 at 18:30 IV Flush 10 ml 10 ml PRN PRN IV IV PROTOCOL; Start 10/30/16 at 19:00 Piperacillin Sod/ Tazobactam Sod (Zosyn 3.375gm/ 100 ml (Pmx)) 100 ml @ 200 mls /hr Q8 IVPB Last administered on 10/31/16 10:26; Admin Dose 200 MLS/HR; Start 10/31/16 at 09:00 Acetaminophen (Tylenol Supp) 650 mg Q6H PRN MD FEVER Last administered on 08:43; Admin Dose 650 MG; Start 10/31/16 at 09:00 SUJIT MAXWELL Oct 31, 2016 11:34
[2016-10-31 11:52] LABS: HEMATOCRIT 22.5 % (42.0-52.0)
--- NOTE | 2016-10-31 12:25 | PN ---
Date/Time of Note Date/Time of Note DATE: 10/31/16 TIME: 12:18 Assessment/Plan VTE Prophylaxis VTE Prophylaxis Intervention: SCD's Lines/Catheters IV Catheter Type (from Nrsg): PICC Line Central line still needed: Yes Urinary Cath still in place: Yes Reason Cath still needed: other (indicate) (pt is sedated with versed) Assessment/Plan Chief Complaint/Hosp Course 1. GI bleed, no more apparent bleeding. Pt is on octreotide drip 2. Pt is orally intubated 10/31/16, mechanical ventillated 2. Temperature spiked to 104 with minimal DC tylenol effect, cooling measures per nursing protocol 3. DVT prophylaxis, GI ulcer prevention engaged 4. IV nutrition with bicarbonate CAre was coordinated with Dr Cheema and nursing staff Problems: Assessment/Plan 1. Continue ventillator support 2. Drips to prevent GI bleeding 3. IV hydration 4. Sedation as needed when intubated Subjective 24 Hr Interval Summary Subjective hx not possible: pt non-verbal Exam/Review of Systems Vital Signs Vitals Vital Signs Date Time Temp Pulse Resp B/P Pulse Ox O2 Delivery O2 Flow Rate FiO2 10/31/16 12:00 100.7 110 19 118/58 99 Mechanical Ventilator 10/31/16 11:10 40 10/30/16 05:15 6.0 Intake and Output 10/30/16 10/30/16 10/31/16 15:00 23:00 07:00 Intake Total 1307.0 ml 1237.6 ml 871 ml Output Total 270 ml 210 ml 160 ml Balance 1037.0 ml 1027.6 ml 711 ml Exam Constitutional: other (lethargic) Head: normocephalic, other (orally intubated) Eyes: nl conjunctiva ENMT: mucosa pink and moist, nl external ears & nose, nl lips & teeth Neck: supple Respiratory: clear to auscultation Cardiovascular: regular rate and rhythm Gastrointestinal: soft Genitourinary - Male: nl penis Musculoskeletal: nl extremities to inspection, other (bilateral restraints) Extremities: normal pulses Skin: rash or lesions Results Result Diagram: 10/31/16 1142 10/31/16 0600 Results 24 hrs Laboratory Tests Test 10/30/16 14:00 10/30/16 16:27 10/30/16 17:45 10/31/16 00:01 Arterial Blood HCO3 17.1 L Arterial Blood Base Excess -8.2 L Arterial Blood Oxygen Saturation 98.4 H Ankit Test N/A Arterial Blood Gas Puncture Site A-Line Arterial Blood Carboxyhemoglobin 0.3 Arterial Blood Date Drawn 10/30/2016 2:50:51 PM Arterial Blood Methemoglobin 0.5 Arterial Blood pCO2 (Temp correct) 34.6 L Arterial Blood pH (Temp corrected) 7.312 L Arterial Blood pO2 (Temp corrected) 156.0 H Blood Gas A-a O2 Differential 161.6 H Blood Gas Actual Respiration Rate 18 Blood Gas Low PEEP Setting 0 Blood Gas Modality VENT - AC Blood Gas Notified Time 10/30/2016 3:04:36 PM Blood Gas Notified Whom JLD Blood Gas Respiration Rate 10.0 Blood Gas Specimen Source Blood arterial Blood Gas Temperature 37.0 Blood Gas Tidal Volume 375.0 FiO2 50.0 Oxyhemoglobin Percent 97.6 Total Hemoglobin 11.6 L Activated Partial Thromboplast Time 32.4 Ammonia < 9 L Hematocrit 33.0 L 22.7 #L Hemoglobin 11.5 L 8.0 #L INR International Normalized Ratio 1.23 Platelet Count 60 L Prothrombin Time 15.6 #H Prothrombin Time Ratio 1.2 Thrombin Time 18.3 Urine Bacteria FEW Urine Bilirubin NEGATIVE Urine Clarity SLIGHTLY CLOUDY Urine Color LT. YELLOW Urine Glucose 0.25% H Urine Hemoglobin TRACE Urine Ketones TRACE Urine Leukocyte Esterase NEGATIVE Urine Microscopic RBC 0-2 Urine Microscopic WBC 0-2 Urine Nitrite NEGATIVE Urine Specific [place] 1.025 Urine Squamous Epithelial Cells FEW Urine Total Protein 2+ H Urine Urobilinogen 0.2 E.U./dL Urine pH 5.0 Test 10/31/16 06:00 10/31/16 07:00 10/31/16 10:15 10/31/16 11:42 Anion Gap 14 Basophils # 0.0 Basophils % 0.2 Blood Urea Nitrogen 56 H Calcium Level 6.0 L Carbon Dioxide Level 22 # Chloride Level 106 # Creatinine 3.96 #H Eosinophils # 0.0 Eosinophils % 0.2 Glucose Level 395 H Hematocrit 24.3 L 22.5 L Hemoglobin 8.3 L 8.0 L Lymphocytes # 2.7 Lymphocytes % 16.0 Magnesium Level 1.6 L Mean Corpuscular Hemoglobin 29.3 Mean Corpuscular Hemoglobin Concent 34.2 Mean Corpuscular Volume 85.9 Mean Platelet Volume 12.6 H Monocytes # 1.2 H Monocytes % 7.2 Neutrophils # 12.9 H Neutrophils % 76.1 Nucleated Red Blood Cells # 0.0 Nucleated Red Blood Cells % 0.1 H Phosphorus Level 4.9 Platelet Count 69 L Potassium Level 4.7 Red Blood Count 2.83 L Red Cell Distribution Width 14.9 H Sodium Level 137 White Blood Count 17.0 #H Arterial Blood HCO3 21.3 L Arterial Blood Base Excess -3.1 L Arterial Blood Oxygen Saturation 94.9 L Ankit Test N/A Arterial Blood Gas Puncture Site A-Line Arterial Blood Carboxyhemoglobin 0.2 Arterial Blood Date Drawn 10/31/2016 8:25:00 AM Arterial Blood Methemoglobin 0.5 Arterial Blood pCO2 (Temp correct) 35.8 Arterial Blood pH (Temp corrected) 7.393 Arterial Blood pO2 (Temp corrected) 79.4 L Blood Gas A-a O2 Differential 164.6 H Blood Gas Actual Respiration Rate 22 Blood Gas Low PEEP Setting 5.0 Blood Gas Modality VENT - AC Blood Gas Notified Time 10/31/2016 8:47:00 AM Blood Gas Notified Whom DT Blood Gas Respiration Rate 10.0 Blood Gas Specimen Source Blood arterial Blood Gas Temperature 37.0 Blood Gas Tidal Volume 375.0 FiO2 40.0 Oxyhemoglobin Percent 94.2 Total Hemoglobin 9.7 L Urine Bacteria FEW Urine Bilirubin NEGATIVE Urine Clarity HAZY Urine Color LT. YELLOW Urine Glucose 0.25% H Urine Hemoglobin 2+ H Urine Ketones NEGATIVE Urine Leukocyte Esterase TRACE H Urine Microscopic RBC 2-5 Urine Microscopic WBC 10-25 Urine Nitrite NEGATIVE Urine Specific [place] 1.025 Urine Total Protein 2+ H Urine Urobilinogen 0.2 E.U./dL Urine pH 5.5 Medications Medications Current Medications Flumazenil (Romazicon) 0.2 mg Q1M PRN IV BENZODIAZEPINE OVERDOSE; Start at 05:00 Naloxone HCl (Narcan) 0.4 mg Q3M PRN IV DECREASED REPIRATORY RATE; Start at 05:00 Ondansetron HCl (Zofran Inj) 4 mg Q6H PRN IV NAUSEA AND/OR VOMITING; Start 06/08 at 05:00 Acetaminophen (Tylenol Liquid) 650 mg Q6H PRN PO PAIN LEVEL 1-3 OR FEVER; Start 10/30/16 at 05:00 Acetaminophen (Tylenol Tab) 650 mg Q6H PRN PO PAIN LEVEL 1-3 OR FEVER; Start at 05:00 Morphine Sulfate (morphine) 2 mg Q4H PRN IV PAIN LEVEL 7-10 Last administered on 10/31/16 04:41; Admin Dose 2 MG; Start 10/30/16 at 05:00 Zolpidem Tartrate (Ambien) 5 mg QHS PRN PO INSOMNIA; Start 10/30/16 at 05:00 Docusate Sodium 100 mg 100 mg Q12H PRN PO CONSTIPATION; Start 10/30/16 at 05:00 Octreotide Acetate 1 mg/ Sodium Chloride 100 ml @ 5 mls/hr Q20H IV Last administered on 10/31/16 02:05; Admin Dose 5 MLS/HR; Start 10/30/16 at 05:45 Pantoprazole 80 mg/Sodium Chloride 100 ml @ 10 mls/hr Q10H IV Last administered on 10/31/16 06:07; Admin Dose 10 MLS/HR; Start 10/30/16 at 05:30 Norepinephrine 16 mg/Dextrose 500 ml @ 1.87 mls/hr TITRATE IV ; Start 10/30/16 at 10:00 Midazolam HCl (Versed) 50 ml @ 1 mls/hr TITRATE IV Last administered on 05:57; Admin Dose 2 MLS/HR; Start 10/30/16 at 13:30 Influenza Virus Vaccine 0.5 ml 0.5 ml ONCE ONCE IM* ; Start 11/02/16 at 09:00; Stop 11/02/16 at 09:01 Sodium Bicarbonate/ Dextrose (Na Bicarb/D5W) 1,100 ml @ 125 mls/hr Q8H48M IV Last administered on 10/31/16 04:35; Admin Dose 125 MLS/HR; Start 10/30/16 at 18:30 IV Flush 10 ml 10 ml PRN PRN IV IV PROTOCOL; Start 10/30/16 at 19:00 Piperacillin Sod/ Tazobactam Sod (Zosyn 3.375gm/ 100 ml (Pmx)) 100 ml @ 200 mls /hr Q8 IVPB Last administered on 10/31/16 10:26; Admin Dose 200 MLS/HR; Start 10/31/16 at 09:00 Acetaminophen (Tylenol Supp) 650 mg Q6H PRN DC FEVER Last administered on t 08:43; Admin Dose 650 MG; Start 10/31/16 at 09:00 CHELSIE HERNÁNDEZ Oct 31, 2016 12:25
[2016-10-31] MEDS ORDERED: GLUCOSE GEL 15 GRAM TUBE BUCCAL PRN (12:30)
[2016-10-31] MEDS ORDERED: GLUCOSE GEL 15 GRAM TUBE PO PRN ×2 (12:30)
[2016-10-31] MEDS ORDERED: DEXTROSE 50% 50 ML SYRINGE IV PRN ×2 (12:30)
[2016-10-31] MEDS ORDERED: GLUCAGON 1 MG INJ IM PRN (12:30)
[2016-10-31] MEDS: INSULIN ASPART [NOVOLOG] 3 ML PEN SC SCH ×3 (12:38→20:48)
[2016-10-31 13:52] LABS: ANISOCYTOSIS 1+
[2016-10-31 13:53] LABS: PLATELET ESTIMATE PLT APPEAR DECREASED
[2016-10-31 18:52] LABS: HEMOGLOBIN 7.7 g/dl (14.0-18.0)
[2016-10-31] MEDS ORDERED: FUROSEMIDE 40 MG INJ IV ONE (23:00)
[2016-11-01] VITALS (84 sets, daily range): BP systolic 115–217; BP diastolic 39–96; PULSE 87–120; RESP 10–22
[2016-11-01] MEDS: ALBUTEROL HFA 8 GM INHALER INH SCH ×6 (00:06→20:06)
[2016-11-01] MEDS: IPRATROPIUM (HFA) 12.9 GM INHALER INH SCH ×6 (00:06→20:06)
[2016-11-01] MEDS: INSULIN ASPART [NOVOLOG] 3 ML PEN SC SCH ×6 (01:00→20:42)
[2016-11-01] MEDS: hydrALAzine 20 MG INJ IV PRN ×3 (01:39→14:27)
[2016-11-01] MEDS: PANTOPRAZOLE IV 80 MG in SOD CHLORIDE 0.9% 100 ML IV SCH ×2 (04:31→15:24)
[2016-11-01] MEDS: morphine 2 MG INJ IV PRN ×4 (04:50→20:48)
[2016-11-01] MEDS: PIPER-TAZO 3.375 GM IV (PMX) 100 ML IVPB SCH ×3 (05:31→22:17)
[2016-11-01] MEDS: SODIUM BICARBONATE (IV ADD) 100 MEQ in DEXTROSE 5% 1,000 ML IV SCH ×3 (05:42→23:18)
[2016-11-01 06:38] LABS: ADD SCAN DIFF NO
[2016-11-01 06:55] LABS: ABNORMAL IP MESSAGE 1; BASOPHIL # 0.1 10^3/ul (0.0-0.1); BASOPHILS % 0.4 % (0.0-2.0); EOSINOPHILS % 0.1 % (0.0-7.0); HEMOGLOBIN 10.2 g/dl (14.0-18.0); LYMPHOCYTES # 1.3 10^3/ul (0.8-2.9); LYMPHOCYTES % 7.4 % (15.0-51.0); MEAN CORPUSCULAR HEMOGLOBIN 29.8 pg (29.0-33.0); MEAN CORPUSCULAR HGB CONC 35.2 g/dl (32.0-37.0); MEAN CORPUSCULAR VOLUME 84.8 fl (82.0-101.0); MEAN PLATELET VOLUME 11.5 fl (7.4-10.4); MONOCYTE # 0.8 10^3/ul (0.3-0.9); MONOCYTES % 4.6 % (0.0-11.0); NEUTROPHIL # 15.4 10^3/ul (1.6-7.5); NEUTROPHILS % 86.8 % (39.0-77.0); NUCLEATED RED BLOOD CELLS% 0.1 /100WBC (0.0-0.0); RED BLOOD COUNT 3.42 10^6/ul (4.70-6.10); RED CELL DISTRIBUTION WIDTH 14.2 % (11.5-14.5); WHITE BLOOD COUNT 17.8 10^3/ul (4.8-10.8)
[2016-11-01 06:56] LABS: POTASSIUM 3.9 mmol/L (3.5-5.1)
[2016-11-01 06:58] LABS: CREATININE 3.97 mg/dl (0.61-1.24)
[2016-11-01 06:59] LABS: CALCIUM 6.1 mg/dl (8.4-10.2); MAGNESIUM 1.5 mg/dl (1.7-2.5); PHOSPHORUS 4.1 mg/dl (2.5-4.9)
[2016-11-01 07:06] LABS: PLATELET COUNT 62 10^3/UL (140-415)
[2016-11-01] MEDS: MIDAZOLAM (DRIP) 50 mg/50 mL 50 ML IV SCH (08:12)
[2016-11-01 08:48] LABS: AADO2 Arterial 150.3 mmHg (7.0-24.0); Arterial Base Excess 2.8 mmol/L (-3.0-3); Arterial COHb 0.3 % (0.0-3.0); Arterial Fraction of Oxyhgb 96.3 % (93.0-99.0); Arterial HCO3 26.4 mmol/L (22.0-26.0); Arterial MetHb 0.4 % (0.0-1.5); Arterial Total Hemglobin 12.2 g/dl (12.0-18.0); MODE VENT - AC
[2016-11-01] MEDS: PROPOFOL 100 ML IV SCH ×2 (10:30→22:30)
--- NOTE | 2016-11-01 10:34 | CONS ---
Date/Time of Note Date/Time of Note DATE: 11/01/16 TIME: 10:27 Assessment/Plan Assessment/Plan Additional Assessment/Plan Ventilator settings; AC of 10, tidal volume 375, PEEP of 5, 30% FiO2. Assessment recommendations; 1. Patient admitted for anemia with negative EGD and colonoscopy. Stable hematocrit. 2. Leukocytosis. 3. Thrombocytopenia. 4. Renal insufficiency. Heading towards renal failure. Due to current supportive care. Stop or sit. Was a patient is off Versed he will be evaluated for adequacy of mental status to facilitate weaning from ventilator, failing that, patient will need to be put on propofol drip for sedation. A chest x-ray is to performed. Continue current antibiotics. Consultation Date/Type/Reason Admit Date/Time Oct 30, 2016 at 08:00 Initial Consult Date 10/30/16 Type of Consultation: Pulmonary/critical care Referring Provider: ABBY RAMOS MD 24 HR Interval Summary Free Text/Dictation Patient condition remains critical. Still requiring full ventilator support. The patient was given a sedation vacation early this morning he became agitated had to be resumed on Versed drip at 1 mg/h. Patient currently sedated and does not appear to be in any distress. Exam/Review of Systems Vital Signs Vitals Vital Signs Date Time Temp Pulse Resp B/P Pulse Ox O2 Delivery O2 Flow Rate FiO2 11/01/16 08:00 112 11/01/16 07:00 16 131/65 100 Mechanical Ventilator 11/01/16 05:14 40 10/31/16 20:00 99.2 10/30/16 05:15 6.0 Intake and Output 10/31/16 10/31/16 11/01/16 15:00 23:00 07:00 Intake Total 675 ml 705 ml Output Total 375 ml 280 ml 1535 ml Balance -375 ml 395 ml -830 ml Exam HEENT exam; supple neck, no JVD. No lymphadenopathy. Midline trachea. No thyromegaly. Orally intubated. Pupils are small bilaterally. Dentition is fair. Chest examination; clear to auscultation. S1-S2 audible, no murmurs. Regular rhythm. Abdomen examination; no organomegaly. Nondistended. Bowel sounds audible. Extremity exam is; no peripheral edema. Pulses 1+ bilaterally. 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 Results Result Diagram: 11/01/16 0615 11/01/16 0615 Results 24 hrs Laboratory Tests Test 10/31/16 11:42 10/31/16 12:27 10/31/16 16:00 10/31/16 18:39 Hematocrit 22.5 L 22.0 L Hemoglobin 8.0 L 7.7 L Bedside Glucose 402 *H 279 H Test 10/31/16 20:45 11/01/16 01:32 11/01/16 05:30 11/01/16 06:15 Bedside Glucose 159 131 133 Anion Gap 12 Basophils # 0.1 Basophils % 0.4 Blood Urea Nitrogen 58 H Calcium Level 6.1 L Carbon Dioxide Level 30 Chloride Level 102 Creatinine 3.97 H Eosinophils # 0.0 Eosinophils % 0.1 Glucose Level 149 # Hematocrit 29.0 #L Hemoglobin 10.2 #L Lymphocytes # 1.3 Lymphocytes % 7.4 L Magnesium Level 1.5 L Mean Corpuscular Hemoglobin 29.8 Mean Corpuscular Hemoglobin Concent 35.2 Mean Corpuscular Volume 84.8 Mean Platelet Volume 11.5 H Monocytes # 0.8 Monocytes % 4.6 Neutrophils # 15.4 H Neutrophils % 86.8 H Nucleated Red Blood Cells # 0.0 Nucleated Red Blood Cells % 0.1 H Phosphorus Level 4.1 Platelet Count 62 L Potassium Level 3.9 Red Blood Count 3.42 #L Red Cell Distribution Width 14.2 Sodium Level 140 White Blood Count 17.8 H Test 11/01/16 07:00 11/01/16 08:18 Arterial Blood HCO3 26.4 H Arterial Blood Base Excess 2.8 Arterial Blood Oxygen Saturation 97.0 Ankit Test N/A Arterial Blood Gas Puncture Site A-Line Arterial Blood Carboxyhemoglobin 0.3 Arterial Blood Date Drawn 11/01/2016 8:30:17 AM Arterial Blood Methemoglobin 0.4 Arterial Blood pCO2 (Temp correct) 36.9 Arterial Blood pH (Temp corrected) 7.472 H Arterial Blood pO2 (Temp corrected) 92.5 Blood Gas A-a O2 Differential 150.3 H Blood Gas Actual Respiration Rate 17 Blood Gas Modality VENT - AC Blood Gas Notified Time 11/01/2016 8:46:51 AM Blood Gas Notified Whom DT Blood Gas Respiration Rate 10.0 Blood Gas Specimen Source Blood arterial Blood Gas Temperature 37.0 Blood Gas Tidal Volume 375.0 FiO2 40.0 Oxyhemoglobin Percent 96.3 Total Hemoglobin 12.2 Bedside Glucose 189 Medications Medications Current Medications Flumazenil (Romazicon) 0.2 mg Q1M PRN IV BENZODIAZEPINE OVERDOSE; Start at 05:00 Naloxone HCl (Narcan) 0.4 mg Q3M PRN IV DECREASED REPIRATORY RATE; Start at 05:00 Ondansetron HCl (Zofran Inj) 4 mg Q6H PRN IV NAUSEA AND/OR VOMITING; Start 06/08 at 05:00 Acetaminophen (Tylenol Liquid) 650 mg Q6H PRN PO PAIN LEVEL 1-3 OR FEVER; Start 10/30/16 at 05:00 Acetaminophen (Tylenol Tab) 650 mg Q6H PRN PO PAIN LEVEL 1-3 OR FEVER; Start at 05:00 Morphine Sulfate (morphine) 2 mg Q4H PRN IV PAIN LEVEL 7-10 Last administered on 11/01/16 04:50; Admin Dose 2 MG; Start 10/30/16 at 05:00 Zolpidem Tartrate (Ambien) 5 mg QHS PRN PO INSOMNIA; Start 10/30/16 at 05:00 Docusate Sodium 100 mg 100 mg Q12H PRN PO CONSTIPATION; Start 10/30/16 at 05:00 Octreotide Acetate 1 mg/ Sodium Chloride 100 ml @ 5 mls/hr Q20H IV Last administered on 10/31/16 22:05; Admin Dose 5 MLS/HR; Start 10/30/16 at 05:45 Pantoprazole 80 mg/Sodium Chloride 100 ml @ 10 mls/hr Q10H IV Last administered on 11/01/16 04:31; Admin Dose 10 MLS/HR; Start 10/30/16 at 05:30 Norepinephrine 16 mg/Dextrose 500 ml @ 1.87 mls/hr TITRATE IV ; Start 10/30/16 at 10:00 Midazolam HCl (Versed) 50 ml @ 1 mls/hr TITRATE IV Last administered on 08:12; Admin Dose 1 MLS/HR; Start 10/30/16 at 13:30 Influenza Virus Vaccine 0.5 ml 0.5 ml ONCE ONCE IM* ; Start 11/02/16 at 09:00; Stop 11/02/16 at 09:01 Sodium Bicarbonate/ Dextrose (Na Bicarb/D5W) 1,100 ml @ 125 mls/hr Q8H48M IV Last administered on 10/31/16 22:05; Admin Dose 125 MLS/HR; Start 10/30/16 at 18:30 IV Flush 10 ml 10 ml PRN PRN IV IV PROTOCOL; Start 10/30/16 at 19:00 Piperacillin Sod/ Tazobactam Sod (Zosyn 3.375gm/ 100 ml (Pmx)) 100 ml @ 200 mls /hr Q8 IVPB Last administered on 11/01/16 05:31; Admin Dose 200 MLS/HR; Start 10/31/16 at 09:00 Acetaminophen (Tylenol Supp) 650 mg Q6H PRN LA FEVER Last administered on 08:43; Admin Dose 650 MG; Start 10/31/16 at 09:00 Miscellaneous Information 1 ea NOTE XX ; Start 10/31/16 at 12:30 Glucose (Glutose) 15 gm Q15M PRN PO DECREASED GLUCOSE; Start 10/31/16 at 12:30 Glucose (Glutose) 22.5 gm Q15M PRN PO DECREASED GLUCOSE; Start 10/31/16 at 12: 30 Dextrose (D50w Syringe) 25 ml Q15M PRN IV DECREASED GLUCOSE; Start 10/31/16 at 12:30 Dextrose (D50w Syringe) 50 ml Q15M PRN IV DECREASED GLUCOSE; Start 10/31/16 at 12:30 Glucagon (Glucagen) 1 mg Q15M PRN IM DECREASED GLUCOSE; Start 10/31/16 at 12:30 Glucose (Glutose) 15 gm Q15M PRN BUCCAL DECREASED GLUCOSE; Start 10/31/16 at 12 :30 Insulin Aspart (Novolog Insulin Pen) NOVOLOG *MODERATE* ALGORI... Q4 SC Last administered on 11/01/16 08:23; Admin Dose 4 UNIT; Start 10/31/16 at 21:00 Hydralazine HCl (Apresoline) 10 mg Q4H PRN IV SBP GREATER THAN 170 Last administered on 11/01/16 07:37; Admin Dose 10 MG; Start 10/31/16 at 23:00 SUJIT MAXWELL Nov 01, 2016 10:34
[2016-11-01 11:49] LABS: HEMATOCRIT 29.5 % (42.0-52.0); HEMOGLOBIN 10.5 g/dl (14.0-18.0)
[2016-11-01] MEDS: CEFEPIME 1GM/50 ML (PMX) 50 ML IVPB SCH (12:18)
--- NOTE | 2016-11-01 13:42 | RADRPT ---
PROCEDURE: XR Chest. CLINICAL INDICATION: Shortness of breath. TECHNIQUE: Single frontal view. COMPARISON: 10/31/2016. FINDINGS: The endotracheal tube is at the level of the clavicles and should be advanced approximately 4 cm. A left arm PICC line is present with the tip in the lower superior vena cava. Mild atelectasis at the lung bases is unchanged. The lungs are otherwise clear. The heart is mildly enlarged. There is calcification in the aorta consistent with atherosclerosis. There is no pleural effusion. There is no pneumothorax. IMPRESSION: 1. No change from 10/31/2016. 2. The endotracheal tube should be advanced approximately 4 cm. RPTAT: QQ .Allen Mackey MD, MD Date Time Electronically viewed and signed by .Allen Mackey MD, MD on 11/01/2016 13:41 .R/
--- NOTE | 2016-11-01 14:21 | PN ---
DATE: 11/01/2016 The patient remains intubated. Last night he remained afebrile. His leukocytosis persists at 17,80 0. His H and H is stable and his bleeding has stopped. His abdominal examination is benign. Also of note is the fact that his renal function is worsening, with a BUN of 58 and a creatinine of 3.97. IMPRESSION: At the present time, bleeding is not an issue; however, it will need to be addressed. The source of bleeding appears to be somewhere in the small intestine from the second portion of the duodenum down. We will consult with GI whether capsule enteroscopy is feasible or whether he will ultimately need an upper GI endoscope. Will follow. Dictated By: PALOMO HUGGINS/INOCENCIO Conf#: [id number] DID#: [id number]
--- NOTE | 2016-11-01 16:44 | PN ---
Date/Time of Note Date/Time of Note DATE: 11/01/16 TIME: 16:42 Assessment/Plan VTE Prophylaxis VTE Prophylaxis Intervention: other Lines/Catheters IV Catheter Type (from Nrs): PICC Line Central line still needed: Yes Urinary Cath still in place: Yes Reason Cath still needed: other (indicate) Assessment/Plan Chief Complaint/Hosp Course IMPRESSION: 1. Patient has massive gastrointestinal bleed. 2. Hyperkalemia.BETTER 3. Metabolic acidosis and acute kidney injury. 4. Incomplete database. 5. Hypoalbuminemia. HYPOMAGNESEMIA PLAN IV MG PER GI AND SURGERY Problems: Subjective 24 Hr Interval Summary Subjective hx not possible: other (ON VENT) Exam/Review of Systems Vital Signs Vitals Vital Signs Date Time Temp Pulse Resp B/P Pulse Ox O2 Delivery O2 Flow Rate FiO2 11/01/16 15:10 108 16 98 40 11/01/16 13:00 128/61 Mechanical Ventilator 11/01/16 12:00 98.1 10/30/16 05:15 6.0 Intake and Output 10/31/16 10/31/16 11/01/16 14:59 22:59 06:59 Intake Total 560 ml 680 ml Output Total 380 ml 270 ml 1560 ml Balance -380 ml 290 ml -880 ml Exam Neck: supple Respiratory: clear to auscultation Cardiovascular: regular rate and rhythm Gastrointestinal: soft Musculoskeletal: nl extremities to inspection Extremities: normal pulses Results Result Diagram: 11/01/16 1142 11/01/16 0615 Results 24 hrs Laboratory Tests Test 10/31/16 18:39 10/31/16 20:45 11/01/16 01:32 11/01/16 05:30 Hematocrit 22.0 L Hemoglobin 7.7 L Bedside Glucose 159 131 133 Test 11/01/16 06:15 11/01/16 07:00 11/01/16 08:18 11/01/16 11:42 Anion Gap 12 Basophils # 0.1 Basophils % 0.4 Blood Urea Nitrogen 58 H Calcium Level 6.1 L Carbon Dioxide Level 30 Chloride Level 102 Creatinine 3.97 H Eosinophils # 0.0 Eosinophils % 0.1 Glucose Level 149 # Hematocrit 29.0 #L 29.5 L Hemoglobin 10.2 #L 10.5 L Lymphocytes # 1.3 Lymphocytes % 7.4 L Magnesium Level 1.5 L Mean Corpuscular Hemoglobin 29.8 Mean Corpuscular Hemoglobin Concent 35.2 Mean Corpuscular Volume 84.8 Mean Platelet Volume 11.5 H Monocytes # 0.8 Monocytes % 4.6 Neutrophils # 15.4 H Neutrophils % 86.8 H Nucleated Red Blood Cells # 0.0 Nucleated Red Blood Cells % 0.1 H Phosphorus Level 4.1 Platelet Count 62 L Potassium Level 3.9 Red Blood Count 3.42 #L Red Cell Distribution Width 14.2 Sodium Level 140 White Blood Count 17.8 H Arterial Blood HCO3 26.4 H Arterial Blood Base Excess 2.8 Arterial Blood Oxygen Saturation 97.0 Ankit Test N/A Arterial Blood Gas Puncture Site A-Line Arterial Blood Carboxyhemoglobin 0.3 Arterial Blood Date Drawn 11/01/2016 8:30:17 AM Arterial Blood Methemoglobin 0.4 Arterial Blood pCO2 (Temp correct) 36.9 Arterial Blood pH (Temp corrected) 7.472 H Arterial Blood pO2 (Temp corrected) 92.5 Blood Gas A-a O2 Differential 150.3 H Blood Gas Actual Respiration Rate 17 Blood Gas Modality VENT - AC Blood Gas Notified Time 11/01/2016 8:46:51 AM Blood Gas Notified Whom DT Blood Gas Respiration Rate 10.0 Blood Gas Specimen Source Blood arterial Blood Gas Temperature 37.0 Blood Gas Tidal Volume 375.0 FiO2 40.0 Oxyhemoglobin Percent 96.3 Total Hemoglobin 12.2 Bedside Glucose 189 Test 11/01/16 11:53 11/01/16 16:03 Bedside Glucose 175 171 Medications Medications Current Medications Flumazenil (Romazicon) 0.2 mg Q1M PRN IV BENZODIAZEPINE OVERDOSE; Start at 05:00 Naloxone HCl (Narcan) 0.4 mg Q3M PRN IV DECREASED REPIRATORY RATE; Start at 05:00 Ondansetron HCl (Zofran Inj) 4 mg Q6H PRN IV NAUSEA AND/OR VOMITING; Start 06/08 at 05:00 Acetaminophen (Tylenol Liquid) 650 mg Q6H PRN PO PAIN LEVEL 1-3 OR FEVER; Start 10/30/16 at 05:00 Acetaminophen (Tylenol Tab) 650 mg Q6H PRN PO PAIN LEVEL 1-3 OR FEVER; Start at 05:00 Morphine Sulfate (morphine) 2 mg Q4H PRN IV PAIN LEVEL 7-10 Last administered on 11/01/16 16:04; Admin Dose 2 MG; Start 10/30/16 at 05:00 Zolpidem Tartrate (Ambien) 5 mg QHS PRN PO INSOMNIA; Start 10/30/16 at 05:00 Docusate Sodium 100 mg 100 mg Q12H PRN PO CONSTIPATION; Start 10/30/16 at 05:00 Octreotide Acetate 1 mg/ Sodium Chloride 100 ml @ 5 mls/hr Q20H IV Last administered on 10/31/16 22:05; Admin Dose 5 MLS/HR; Start 10/30/16 at 05:45 Pantoprazole 80 mg/Sodium Chloride 100 ml @ 10 mls/hr Q10H IV Last administered on 11/01/16 15:24; Admin Dose 10 MLS/HR; Start 10/30/16 at 05:30 Norepinephrine/ Dextrose (Levophed/D5W) 500 ml @ 1.87 mls/hr TITRATE IV ; Start 10/30/16 at 10:00 Influenza Virus Vaccine 0.5 ml 0.5 ml ONCE ONCE IM* ; Start 11/02/16 at 09:00; Stop 11/02/16 at 09:01 Sodium Bicarbonate/ Dextrose (Na Bicarb/D5W) 1,100 ml @ 125 mls/hr Q8H48M IV Last administered on 11/01/16 15:24; Admin Dose 125 MLS/HR; Start 10/30/16 at 18:30 IV Flush 10 ml 10 ml PRN PRN IV IV PROTOCOL; Start 10/30/16 at 19:00 Piperacillin Sod/ Tazobactam Sod (Zosyn 3.375gm/ 100 ml (Pmx)) 100 ml @ 200 mls /hr Q8 IVPB Last administered on 11/01/16 14:28; Admin Dose 200 MLS/HR; Start 10/31/16 at 09:00 Acetaminophen (Tylenol Supp) 650 mg Q6H PRN [place] FEVER Last administered on 08:43; Admin Dose 650 MG; Start 10/31/16 at 09:00 Miscellaneous Information 1 ea NOTE XX ; Start 10/31/16 at 12:30 Glucose (Glutose) 15 gm Q15M PRN PO DECREASED GLUCOSE; Start 10/31/16 at 12:30 Glucose (Glutose) 22.5 gm Q15M PRN PO DECREASED GLUCOSE; Start 10/31/16 at 12: 30 Dextrose (D50w Syringe) 25 ml Q15M PRN IV DECREASED GLUCOSE; Start 10/31/16 at 12:30 Dextrose (D50w Syringe) 50 ml Q15M PRN IV DECREASED GLUCOSE; Start 10/31/16 at 12:30 Glucagon (Glucagen) 1 mg Q15M PRN IM DECREASED GLUCOSE; Start 10/31/16 at 12:30 Glucose (Glutose) 15 gm Q15M PRN BUCCAL DECREASED GLUCOSE; Start 10/31/16 at 12 :30 Insulin Aspart (Novolog Insulin Pen) NOVOLOG *MODERATE* ALGORI... Q4 SC Last administered on 11/01/16 16:05; Admin Dose 2 UNIT; Start 10/31/16 at 21:00 Hydralazine HCl 10 mg 10 mg Q4H PRN IV SBP GREATER THAN 170 Last administered on 11/01/16 14:27; Admin Dose 10 MG; Start 10/31/16 at 23:00 Propofol 100 ml @ 1.95 mls/hr Q12H IV ; Start 11/01/16 at 10:30 Cefepime HCl (Maxipime 1gm/50 ml (Pmx)) 50 ml @ 100 mls/hr DAILY IVPB Last administered on 11/01/16 12:18; Admin Dose 100 MLS/HR; Start 11/01/16 at 11:30 ABBY RAMOS MD Nov 01, 2016 16:44
--- NOTE | 2016-11-01 16:56 | CONS ---
Date/Time of Note Date/Time of Note DATE: 10/31/16 TIME: 12:50 Patient was seen on 10-31-16 and family discussed. I am not sure why the note did not save. This is a repeat note for encounter on 10-31-16 Assessment/Plan Assessment/Plan Chief Complaint/Hosp Course Impression: 1. large volume hemorrhage: bleeding source between 2nd portion of duodenum and ileum due to the fact that there is no blood on EGD but blood throughout the colon in colonoscopy with blood clot blocking the entrance into ileum on the procedures performed on 10-30-16. 2. symptomatic anemia secondary to #1 3. Altered mental status 4. respiratory failure Recommendation: 1. protonix and octreotide gtt 2. RBC scan 3. Dr. Arshad to consider intra-op enteroscopy by running bowel over the scope and resect the bleeding source Problems: Consultation Date/Type/Reason Admit Date/Time Oct 30, 2016 at 08:00 Initial Consult Date 10/30/16 Type of Consultation: GI Referring Provider: ABBY RAMOS MD 24 HR Interval Summary Free Text/Dictation intubated, sedated, no further GI bleed Exam/Review of Systems Vital Signs Vitals Vital Signs Date Time Temp Pulse Resp B/P Pulse Ox O2 Delivery O2 Flow Rate FiO2 11/01/16 16:00 112 11/01/16 15:10 16 98 40 11/01/16 13:00 128/61 Mechanical Ventilator 11/01/16 12:00 98.1 10/30/16 05:15 6.0 Intake and Output 10/31/16 10/31/16 11/01/16 15:00 23:00 07:00 Intake Total 675 ml 705 ml Output Total 375 ml 280 ml 1535 ml Balance -375 ml 395 ml -830 ml Exam Constitutional: frail Head: atraumatic, normocephalic Eyes: nl conjunctiva, nl lids, nl sclera ENMT: mucosa pink and moist, nl external ears & nose, nl lips & teeth, nl nasal mucosa & septum Neck: non-tender, supple Respiratory: clear to auscultation, normal air movement Cardiovascular: nl pulses, regular rate and rhythm Gastrointestinal: bowel sounds, non-tender, soft Results Result Diagram: 11/01/16 1142 11/01/16 0615 Results 24 hrs Laboratory Tests Test 10/31/16 18:39 10/31/16 20:45 11/01/16 01:32 11/01/16 05:30 Hematocrit 22.0 L Hemoglobin 7.7 L Bedside Glucose 159 131 133 Test 11/01/16 06:15 11/01/16 07:00 11/01/16 08:18 11/01/16 11:42 Anion Gap 12 Basophils # 0.1 Basophils % 0.4 Blood Urea Nitrogen 58 H Calcium Level 6.1 L Carbon Dioxide Level 30 Chloride Level 102 Creatinine 3.97 H Eosinophils # 0.0 Eosinophils % 0.1 Glucose Level 149 # Hematocrit 29.0 #L 29.5 L Hemoglobin 10.2 #L 10.5 L Lymphocytes # 1.3 Lymphocytes % 7.4 L Magnesium Level 1.5 L Mean Corpuscular Hemoglobin 29.8 Mean Corpuscular Hemoglobin Concent 35.2 Mean Corpuscular Volume 84.8 Mean Platelet Volume 11.5 H Monocytes # 0.8 Monocytes % 4.6 Neutrophils # 15.4 H Neutrophils % 86.8 H Nucleated Red Blood Cells # 0.0 Nucleated Red Blood Cells % 0.1 H Phosphorus Level 4.1 Platelet Count 62 L Potassium Level 3.9 Red Blood Count 3.42 #L Red Cell Distribution Width 14.2 Sodium Level 140 White Blood Count 17.8 H Arterial Blood HCO3 26.4 H Arterial Blood Base Excess 2.8 Arterial Blood Oxygen Saturation 97.0 Ankit Test N/A Arterial Blood Gas Puncture Site A-Line Arterial Blood Carboxyhemoglobin 0.3 Arterial Blood Date Drawn 11/01/2016 8:30:17 AM Arterial Blood Methemoglobin 0.4 Arterial Blood pCO2 (Temp correct) 36.9 Arterial Blood pH (Temp corrected) 7.472 H Arterial Blood pO2 (Temp corrected) 92.5 Blood Gas A-a O2 Differential 150.3 H Blood Gas Actual Respiration Rate 17 Blood Gas Modality VENT - AC Blood Gas Notified Time 11/01/2016 8:46:51 AM Blood Gas Notified Whom DT Blood Gas Respiration Rate 10.0 Blood Gas Specimen Source Blood arterial Blood Gas Temperature 37.0 Blood Gas Tidal Volume 375.0 FiO2 40.0 Oxyhemoglobin Percent 96.3 Total Hemoglobin 12.2 Bedside Glucose 189 Test 11/01/16 11:53 11/01/16 16:03 Bedside Glucose 175 171 Medications Medications Current Medications Flumazenil (Romazicon) 0.2 mg Q1M PRN IV BENZODIAZEPINE OVERDOSE; Start at 05:00 Naloxone HCl (Narcan) 0.4 mg Q3M PRN IV DECREASED REPIRATORY RATE; Start at 05:00 Ondansetron HCl (Zofran Inj) 4 mg Q6H PRN IV NAUSEA AND/OR VOMITING; Start 06/08 at 05:00 Acetaminophen (Tylenol Liquid) 650 mg Q6H PRN PO PAIN LEVEL 1-3 OR FEVER; Start 10/30/16 at 05:00 Acetaminophen (Tylenol Tab) 650 mg Q6H PRN PO PAIN LEVEL 1-3 OR FEVER; Start at 05:00 Morphine Sulfate (morphine) 2 mg Q4H PRN IV PAIN LEVEL 7-10 Last administered on 11/01/16 16:04; Admin Dose 2 MG; Start 10/30/16 at 05:00 Zolpidem Tartrate (Ambien) 5 mg QHS PRN PO INSOMNIA; Start 10/30/16 at 05:00 Docusate Sodium 100 mg 100 mg Q12H PRN PO CONSTIPATION; Start 10/30/16 at 05:00 Octreotide Acetate 1 mg/ Sodium Chloride 100 ml @ 5 mls/hr Q20H IV Last administered on 10/31/16 22:05; Admin Dose 5 MLS/HR; Start 10/30/16 at 05:45 Pantoprazole 80 mg/Sodium Chloride 100 ml @ 10 mls/hr Q10H IV Last administered on 11/01/16 15:24; Admin Dose 10 MLS/HR; Start 10/30/16 at 05:30 Norepinephrine/ Dextrose (Levophed/D5W) 500 ml @ 1.87 mls/hr TITRATE IV ; Start 10/30/16 at 10:00 Influenza Virus Vaccine 0.5 ml 0.5 ml ONCE ONCE IM* ; Start 11/02/16 at 09:00; Stop 11/02/16 at 09:01 Sodium Bicarbonate/ Dextrose (Na Bicarb/D5W) 1,100 ml @ 125 mls/hr Q8H48M IV Last administered on 11/01/16 15:24; Admin Dose 125 MLS/HR; Start 10/30/16 at 18:30 IV Flush 10 ml 10 ml PRN PRN IV IV PROTOCOL; Start 10/30/16 at 19:00 Piperacillin Sod/ Tazobactam Sod (Zosyn 3.375gm/ 100 ml (Pmx)) 100 ml @ 200 mls /hr Q8 IVPB Last administered on 11/01/16 14:28; Admin Dose 200 MLS/HR; Start 10/31/16 at 09:00 Acetaminophen (Tylenol Supp) 650 mg Q6H PRN [place] FEVER Last administered on 08:43; Admin Dose 650 MG; Start 10/31/16 at 09:00 Miscellaneous Information 1 ea NOTE XX ; Start 10/31/16 at 12:30 Glucose (Glutose) 15 gm Q15M PRN PO DECREASED GLUCOSE; Start 10/31/16 at 12:30 Glucose (Glutose) 22.5 gm Q15M PRN PO DECREASED GLUCOSE; Start 10/31/16 at 12: 30 Dextrose (D50w Syringe) 25 ml Q15M PRN IV DECREASED GLUCOSE; Start 10/31/16 at 12:30 Dextrose (D50w Syringe) 50 ml Q15M PRN IV DECREASED GLUCOSE; Start 10/31/16 at 12:30 Glucagon (Glucagen) 1 mg Q15M PRN IM DECREASED GLUCOSE; Start 10/31/16 at 12:30 Glucose (Glutose) 15 gm Q15M PRN BUCCAL DECREASED GLUCOSE; Start 10/31/16 at 12 :30 Insulin Aspart (Novolog Insulin Pen) NOVOLOG *MODERATE* ALGORI... Q4 SC Last administered on 11/01/16 16:05; Admin Dose 2 UNIT; Start 10/31/16 at 21:00 Hydralazine HCl 10 mg 10 mg Q4H PRN IV SBP GREATER THAN 170 Last administered on 11/01/16 14:27; Admin Dose 10 MG; Start 10/31/16 at 23:00 Propofol 100 ml @ 1.95 mls/hr Q12H IV ; Start 11/01/16 at 10:30 Cefepime HCl 50 ml @ 100 mls/hr DAILY IVPB Last administered on 11/01/16 12: 18; Admin Dose 100 MLS/HR; Start 11/01/16 at 11:30 Magnesium Sulfate (Magnesium Sulfate 2 Gm/50 ml) 50 ml @ 25 mls/hr ONCE ONCE IVPB ; Start 3/12/17 at 17:00; Stop 11/01/16 at 18:59; Status KATELINV GERTRUDE ARNDT MD Nov 01, 2016 16:56
[2016-11-01] MEDS ORDERED: MAGNESIUM SULFATE 2 GM/50 ML 50 ML IVPB ONE (17:00)
--- NOTE | 2016-11-01 17:05 | CONS ---
Date/Time of Note Date/Time of Note DATE: 11/01/16 TIME: 16:59 Assessment/Plan Assessment/Plan Chief Complaint/Hosp Course Impression: 1. large volume hemorrhage: bleeding source between 2nd portion of duodenum and ileum due to the fact that there is no blood on EGD but blood throughout the colon in colonoscopy with blood clot blocking the entrance into ileum on the procedures performed on 10-30-16. 2. symptomatic anemia secondary to #1 3. Altered mental status 4. respiratory failure Recommendation: 1. as h/h stable, I discontinued protonix and octreotide gtt 2. I started protonix 40 mg iv bid. If bleeding recurs, will need to restart protonix and octreotide gtt 3. Awaiting RBC bleeding scan which was ordered on 10-30-16. 4. Dr. Arshad to consider intra-op enteroscopy by running bowel over the scope and resect the bleeding source 5. If #4 is not an option, then consider IR for angiogram for embolization 6. capsule endoscopy is an out-pt procedure and not available as an in-pt procedure at [facility] 7. upper GI endoscopy already done on 10-30-16 and there were no bleeding source on upper endosocopy. Thus bleeding source between 2nd portion of duodenum and ileum. This is discussed with Dr. Arshad. 8. Dr. Cabral to resume care tomorrow. Problems: Consultation Date/Type/Reason Admit Date/Time Oct 30, 2016 at 08:00 Initial Consult Date 10/30/16 Type of Consultation: GI Referring Provider: ABBY RAMOS MD 24 HR Interval Summary Free Text/Dictation intubated and sedated. Exam/Review of Systems Vital Signs Vitals Vital Signs Date Time Temp Pulse Resp B/P Pulse Ox O2 Delivery O2 Flow Rate FiO2 11/01/16 16:00 112 11/01/16 15:10 16 98 40 11/01/16 13:00 128/61 Mechanical Ventilator 11/01/16 12:00 98.1 10/30/16 05:15 6.0 Intake and Output 10/31/16 10/31/16 11/01/16 15:00 23:00 07:00 Intake Total 675 ml 705 ml Output Total 375 ml 280 ml 1535 ml Balance -375 ml 395 ml -830 ml Exam Constitutional: frail Head: atraumatic, normocephalic Eyes: nl conjunctiva, nl lids, nl sclera ENMT: mucosa pink and moist, nl external ears & nose, nl lips & teeth, nl nasal mucosa & septum Neck: non-tender, supple Respiratory: clear to auscultation, normal air movement Cardiovascular: nl pulses, regular rate and rhythm Gastrointestinal: bowel sounds, non-tender, soft Results Result Diagram: 11/01/16 1142 11/01/16 0615 Results 24 hrs Laboratory Tests Test 10/31/16 18:39 10/31/16 20:45 11/01/16 01:32 11/01/16 05:30 Hematocrit 22.0 L Hemoglobin 7.7 L Bedside Glucose 159 131 133 Test 11/01/16 06:15 11/01/16 07:00 11/01/16 08:18 11/01/16 11:42 Anion Gap 12 Basophils # 0.1 Basophils % 0.4 Blood Urea Nitrogen 58 H Calcium Level 6.1 L Carbon Dioxide Level 30 Chloride Level 102 Creatinine 3.97 H Eosinophils # 0.0 Eosinophils % 0.1 Glucose Level 149 # Hematocrit 29.0 #L 29.5 L Hemoglobin 10.2 #L 10.5 L Lymphocytes # 1.3 Lymphocytes % 7.4 L Magnesium Level 1.5 L Mean Corpuscular Hemoglobin 29.8 Mean Corpuscular Hemoglobin Concent 35.2 Mean Corpuscular Volume 84.8 Mean Platelet Volume 11.5 H Monocytes # 0.8 Monocytes % 4.6 Neutrophils # 15.4 H Neutrophils % 86.8 H Nucleated Red Blood Cells # 0.0 Nucleated Red Blood Cells % 0.1 H Phosphorus Level 4.1 Platelet Count 62 L Potassium Level 3.9 Red Blood Count 3.42 #L Red Cell Distribution Width 14.2 Sodium Level 140 White Blood Count 17.8 H Arterial Blood HCO3 26.4 H Arterial Blood Base Excess 2.8 Arterial Blood Oxygen Saturation 97.0 Ankit Test N/A Arterial Blood Gas Puncture Site A-Line Arterial Blood Carboxyhemoglobin 0.3 Arterial Blood Date Drawn 11/01/2016 8:30:17 AM Arterial Blood Methemoglobin 0.4 Arterial Blood pCO2 (Temp correct) 36.9 Arterial Blood pH (Temp corrected) 7.472 H Arterial Blood pO2 (Temp corrected) 92.5 Blood Gas A-a O2 Differential 150.3 H Blood Gas Actual Respiration Rate 17 Blood Gas Modality VENT - AC Blood Gas Notified Time 11/01/2016 8:46:51 AM Blood Gas Notified Whom DT Blood Gas Respiration Rate 10.0 Blood Gas Specimen Source Blood arterial Blood Gas Temperature 37.0 Blood Gas Tidal Volume 375.0 FiO2 40.0 Oxyhemoglobin Percent 96.3 Total Hemoglobin 12.2 Bedside Glucose 189 Test 11/01/16 11:53 11/01/16 16:03 Bedside Glucose 175 171 Medications Medications Current Medications Flumazenil (Romazicon) 0.2 mg Q1M PRN IV BENZODIAZEPINE OVERDOSE; Start at 05:00 Naloxone HCl (Narcan) 0.4 mg Q3M PRN IV DECREASED REPIRATORY RATE; Start at 05:00 Ondansetron HCl (Zofran Inj) 4 mg Q6H PRN IV NAUSEA AND/OR VOMITING; Start 06/08 at 05:00 Acetaminophen (Tylenol Liquid) 650 mg Q6H PRN PO PAIN LEVEL 1-3 OR FEVER; Start 10/30/16 at 05:00 Acetaminophen (Tylenol Tab) 650 mg Q6H PRN PO PAIN LEVEL 1-3 OR FEVER; Start at 05:00 Morphine Sulfate (morphine) 2 mg Q4H PRN IV PAIN LEVEL 7-10 Last administered on 11/01/16 16:04; Admin Dose 2 MG; Start 10/30/16 at 05:00 Zolpidem Tartrate (Ambien) 5 mg QHS PRN PO INSOMNIA; Start 10/30/16 at 05:00 Docusate Sodium 100 mg 100 mg Q12H PRN PO CONSTIPATION; Start 10/30/16 at 05:00 Octreotide Acetate 1 mg/ Sodium Chloride 100 ml @ 5 mls/hr Q20H IV Last administered on 10/31/16 22:05; Admin Dose 5 MLS/HR; Start 10/30/16 at 05:45 Pantoprazole 80 mg/Sodium Chloride 100 ml @ 10 mls/hr Q10H IV Last administered on 11/01/16 15:24; Admin Dose 10 MLS/HR; Start 10/30/16 at 05:30 Norepinephrine/ Dextrose (Levophed/D5W) 500 ml @ 1.87 mls/hr TITRATE IV ; Start 10/30/16 at 10:00 Influenza Virus Vaccine 0.5 ml 0.5 ml ONCE ONCE IM* ; Start 11/02/16 at 09:00; Stop 11/02/16 at 09:01 Sodium Bicarbonate/ Dextrose (Na Bicarb/D5W) 1,100 ml @ 125 mls/hr Q8H48M IV Last administered on 11/01/16 15:24; Admin Dose 125 MLS/HR; Start 10/30/16 at 18:30 IV Flush 10 ml 10 ml PRN PRN IV IV PROTOCOL; Start 10/30/16 at 19:00 Piperacillin Sod/ Tazobactam Sod (Zosyn 3.375gm/ 100 ml (Pmx)) 100 ml @ 200 mls /hr Q8 IVPB Last administered on 11/01/16 14:28; Admin Dose 200 MLS/HR; Start 10/31/16 at 09:00 Acetaminophen (Tylenol Supp) 650 mg Q6H PRN [place] FEVER Last administered on 08:43; Admin Dose 650 MG; Start 10/31/16 at 09:00 Miscellaneous Information 1 ea NOTE XX ; Start 10/31/16 at 12:30 Glucose (Glutose) 15 gm Q15M PRN PO DECREASED GLUCOSE; Start 10/31/16 at 12:30 Glucose (Glutose) 22.5 gm Q15M PRN PO DECREASED GLUCOSE; Start 10/31/16 at 12: 30 Dextrose (D50w Syringe) 25 ml Q15M PRN IV DECREASED GLUCOSE; Start 10/31/16 at 12:30 Dextrose (D50w Syringe) 50 ml Q15M PRN IV DECREASED GLUCOSE; Start 10/31/16 at 12:30 Glucagon (Glucagen) 1 mg Q15M PRN IM DECREASED GLUCOSE; Start 10/31/16 at 12:30 Glucose (Glutose) 15 gm Q15M PRN BUCCAL DECREASED GLUCOSE; Start 10/31/16 at 12 :30 Insulin Aspart (Novolog Insulin Pen) NOVOLOG *MODERATE* ALGORI... Q4 SC Last administered on 11/01/16 16:05; Admin Dose 2 UNIT; Start 10/31/16 at 21:00 Hydralazine HCl 10 mg 10 mg Q4H PRN IV SBP GREATER THAN 170 Last administered on 11/01/16 14:27; Admin Dose 10 MG; Start 10/31/16 at 23:00 Propofol 100 ml @ 1.95 mls/hr Q12H IV ; Start 11/01/16 at 10:30 Cefepime HCl 50 ml @ 100 mls/hr DAILY IVPB Last administered on 11/01/16t 12: 18; Admin Dose 100 MLS/HR; Start 11/01/16 at 11:30 Magnesium Sulfate (Magnesium Sulfate 2 Gm/50 ml) 50 ml @ 25 mls/hr ONCE ONCE IVPB ; Start 11/01/16 at 17:00; Stop 11/01/16 at 18:59; Status UNV HAIR,GERTRUDE Noguera MD Nov 01, 2016 17:05
[2016-11-01] MEDS: PANTOPRAZOLE 40 MG INJ IV SCH (17:49)
[2016-11-01 18:13] LABS: HEMATOCRIT 30.7 % (42.0-52.0); HEMOGLOBIN 10.8 g/dl (14.0-18.0)
[2016-11-02] VITALS (72 sets, daily range): BP systolic 115–175; BP diastolic 42–79; PULSE 73–113; RESP 10–31
[2016-11-02] MEDS: INSULIN ASPART [NOVOLOG] 3 ML PEN SC SCH ×6 (00:48→20:55)
[2016-11-02] MEDS: SODIUM BICARBONATE (IV ADD) 100 MEQ in DEXTROSE 5% 1,000 ML IV SCH ×2 (02:12→13:44)
[2016-11-02] MEDS: morphine 2 MG INJ IV PRN ×2 (02:14→20:52)
[2016-11-02] MEDS: hydrALAzine 20 MG INJ IV PRN ×2 (02:45→15:40)
[2016-11-02] MEDS: ALBUTEROL HFA 8 GM INHALER INH SCH ×7 (04:57→20:19)
[2016-11-02] MEDS: IPRATROPIUM (HFA) 12.9 GM INHALER INH SCH ×6 (04:57→20:19)
[2016-11-02] MEDS: PANTOPRAZOLE 40 MG INJ IV SCH ×2 (05:24→17:49)
[2016-11-02] MEDS: PIPER-TAZO 3.375 GM IV (PMX) 100 ML IVPB SCH ×2 (05:25→15:44)
[2016-11-02 06:25] LABS: ADD SCAN DIFF NO
[2016-11-02 06:30] LABS: ABNORMAL IP MESSAGE 1; BASOPHIL # 0.1 10^3/ul (0.0-0.1); BASOPHILS % 0.3 % (0.0-2.0); EOSINOPHILS # 0.1 10^3/ul (0.0-0.5); EOSINOPHILS % 0.4 % (0.0-7.0); HEMOGLOBIN 10.4 g/dl (14.0-18.0); LYMPHOCYTES # 1.2 10^3/ul (0.8-2.9); LYMPHOCYTES % 5.5 % (15.0-51.0); MEAN CORPUSCULAR HGB CONC 33.5 g/dl (32.0-37.0); MEAN CORPUSCULAR VOLUME 86.4 fl (82.0-101.0); MONOCYTE # 0.8 10^3/ul (0.3-0.9); MONOCYTES % 3.6 % (0.0-11.0); NEUTROPHIL # 20.3 10^3/ul (1.6-7.5); NEUTROPHILS % 89.8 % (39.0-77.0); PLATELET COUNT 66 10^3/UL (140-415); RED BLOOD COUNT 3.59 10^6/ul (4.70-6.10); RED CELL DISTRIBUTION WIDTH 14.5 % (11.5-14.5); WHITE BLOOD COUNT 22.7 10^3/ul (4.8-10.8)
[2016-11-02 06:51] LABS: POTASSIUM 3.5 mmol/L (3.5-5.1)
[2016-11-02 06:53] LABS: BILIRUBIN,INDIRECT 0.6 mg/dl (0-1.1); BILIRUBIN,TOTAL 0.6 mg/dl (0.2-1.3); CREATININE 3.88 mg/dl (0.61-1.24)
[2016-11-02 06:54] LABS: ALBUMIN/GLOBULIN RATIO 0.8; CALCIUM 6.5 mg/dl (8.4-10.2); TOTAL PROTEIN 4.5 g/dl (6.1-8.1)
[2016-11-02] MEDS ORDERED: INFLUENZA VIRUS VACCINE 0.5 ML SYG IM* ONE (09:00)
--- NOTE | 2016-11-02 10:03 | CONS ---
Date/Time of Note Date/Time of Note DATE: 11/02/16 TIME: 09:59 Assessment/Plan Assessment/Plan Additional Assessment/Plan Ventilator settings; AC of 10, tidal volume 375, PEEP of 5, 40% FiO2. Assessment recommendations; 1. Patient admitted for anemia with negative EGD and colonoscopy. Status post blood transfusion. With stable hematocrit. 2. Increasing leukocytosis, etiology is unclear. Possibly reactive in etiology. Chest x-ray was reviewed from yesterday afternoon which is essentially unremarkable with a very scant if any right lower lobe infiltrate. 3. Worsening renal function. Possibly some element of uremia. 4. Respiratory failure. 5. Poor mental status. Possibly from cumulative dosing of Versed that was initially used for sedation. Continue current treatment. Obtain a follow-up chest x-ray. Weaning from ventilator with depend upon adequate mental status recovery. Prognosis remains guarded. Consultation Date/Type/Reason Admit Date/Time Oct 30, 2016 at 08:00 Initial Consult Date 10/30/16 Type of Consultation: Pulmonary/critical care Referring Provider: ABBY RAMOS MD 24 HR Interval Summary Free Text/Dictation Patient's condition remains critical. Still requiring full ventilator support. Off sedation with poor mental status. Although slightly improved today. Patient opening eyes on deep sternal rubbing. Patient has remained hemodynamically stable. Exam/Review of Systems Vital Signs Vitals Vital Signs Date Time Temp Pulse Resp B/P Pulse Ox O2 Delivery O2 Flow Rate FiO2 11/02/16 09:35 83 14 99 30 11/02/16 08:00 98.5 157/67 Mechanical Ventilator 10/30/16 05:15 6.0 Intake and Output 11/01/16 11/01/16 11/02/16 15:00 23:00 07:00 Intake Total 625 ml 1075 ml Output Total 2475 ml 1435 ml 1225 ml Balance -2475 ml -810 ml -150 ml Exam H EENT exam; supple neck, no JVD. No lymphadenopathy. Midline trachea. Orally intubated. Pupils are midsize and reactive to light. No neck masses. Chest examination; clear to auscultation. S1-S2 audible, no murmurs. Regular rhythm. Abdomen examination; soft, nondistended. No organomegaly. Bowel sounds audible. Extremity exam; no peripheral edema. 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 Results Result Diagram: 11/02/16 0430 11/02/16 0430 Results 24 hrs Laboratory Tests Test 11/01/16 11:42 11/01/16 11:53 11/01/16 16:03 11/01/16 17:56 Hematocrit 29.5 L 30.7 L Hemoglobin 10.5 L 10.8 L Bedside Glucose 175 171 Test 11/01/16 20:33 11/02/16 00:45 11/02/16 04:30 11/02/16 05:24 Bedside Glucose 158 194 113 Alanine Aminotransferase (ALT/SGPT) 79 H Albumin 2.0 L Albumin/Globulin Ratio 0.80 Alkaline Phosphatase 98 Anion Gap 13 Aspartate Amino Transf (AST/SGOT) 75 H Basophils # 0.1 Basophils % 0.3 Blood Urea Nitrogen 58 H Calcium Level 6.5 L Carbon Dioxide Level 35 H Chloride Level 96 L Creatinine 3.88 H Direct Bilirubin 0.00 Eosinophils # 0.1 Eosinophils % 0.4 Globulin 2.50 Glucose Level 100 # Hematocrit 31.0 L Hemoglobin 10.4 L Indirect Bilirubin 0.6 Lymphocytes # 1.2 Lymphocytes % 5.5 L Magnesium Level 2.0 Mean Corpuscular Hemoglobin 29.0 Mean Corpuscular Hemoglobin Concent 33.5 Mean Corpuscular Volume 86.4 Mean Platelet Volume 12.0 H Monocytes # 0.8 Monocytes % 3.6 Neutrophils # 20.3 H Neutrophils % 89.8 H Nucleated Red Blood Cells # 0.0 Nucleated Red Blood Cells % 0.0 Platelet Count 66 L Potassium Level 3.5 Red Blood Count 3.59 L Red Cell Distribution Width 14.5 Sodium Level 140 Total Bilirubin 0.6 Total Protein 4.5 L White Blood Count 22.7 #H Test 11/02/16 08:52 Bedside Glucose 155 Medications Medications Current Medications Flumazenil (Romazicon) 0.2 mg Q1M PRN IV BENZODIAZEPINE OVERDOSE; Start at 05:00 Naloxone HCl (Narcan) 0.4 mg Q3M PRN IV DECREASED REPIRATORY RATE; Start at 05:00 Ondansetron HCl (Zofran Inj) 4 mg Q6H PRN IV NAUSEA AND/OR VOMITING; Start 06/08 at 05:00 Acetaminophen (Tylenol Liquid) 650 mg Q6H PRN PO PAIN LEVEL 1-3 OR FEVER; Start 10/30/16 at 05:00 Acetaminophen (Tylenol Tab) 650 mg Q6H PRN PO PAIN LEVEL 1-3 OR FEVER; Start at 05:00 Morphine Sulfate (morphine) 2 mg Q4H PRN IV PAIN LEVEL 7-10 Last administered on 11/02/16 02:14; Admin Dose 2 MG; Start 10/30/16 at 05:00 Zolpidem Tartrate (Ambien) 5 mg QHS PRN PO INSOMNIA; Start 10/30/16 at 05:00 Docusate Sodium 100 mg 100 mg Q12H PRN PO CONSTIPATION; Start 10/30/16 at 05:00 Norepinephrine 16 mg/Dextrose 500 ml @ 1.87 mls/hr TITRATE IV ; Start 10/30/16 at 10:00 Sodium Bicarbonate/ Dextrose (Na Bicarb/D5W) 1,100 ml @ 125 mls/hr Q8H48M IV Last administered on 11/02/16 02:12; Admin Dose 125 MLS/HR; Start 10/30/16 at 18:30 IV Flush 10 ml 10 ml PRN PRN IV IV PROTOCOL; Start 10/30/16 at 19:00 Piperacillin Sod/ Tazobactam Sod (Zosyn 3.375gm/ 100 ml (Pmx)) 100 ml @ 200 mls /hr Q8 IVPB Last administered on 11/02/16 05:25; Admin Dose 200 MLS/HR; Start 10/31/16 at 09:00 Acetaminophen (Tylenol Supp) 650 mg Q6H PRN [place] FEVER Last administered on 08:43; Admin Dose 650 MG; Start 10/31/16 at 09:00 Miscellaneous Information 1 ea NOTE XX ; Start 10/31/16 at 12:30 Glucose (Glutose) 15 gm Q15M PRN PO DECREASED GLUCOSE; Start 10/31/16 at 12:30 Glucose (Glutose) 22.5 gm Q15M PRN PO DECREASED GLUCOSE; Start 10/31/16 at 12: 30 Dextrose (D50w Syringe) 25 ml Q15M PRN IV DECREASED GLUCOSE; Start 10/31/16 at 12:30 Dextrose (D50w Syringe) 50 ml Q15M PRN IV DECREASED GLUCOSE; Start 10/31/16 at 12:30 Glucagon (Glucagen) 1 mg Q15M PRN IM DECREASED GLUCOSE; Start 10/31/16 at 12:30 Glucose (Glutose) 15 gm Q15M PRN BUCCAL DECREASED GLUCOSE; Start 10/31/16 at 12 :30 Insulin Aspart (Novolog Insulin Pen) NOVOLOG *MODERATE* ALGORI... Q4 SC Last administered on 11/02/16 08:55; Admin Dose 2 UNIT; Start 10/31/16 at 21:00 Hydralazine HCl 10 mg 10 mg Q4H PRN IV SBP GREATER THAN 170 Last administered on 11/02/16 02:45; Admin Dose 10 MG; Start 10/31/16 at 23:00 Propofol 100 ml @ 1.95 mls/hr Q12H IV ; Start 11/01/16 at 10:30 Cefepime HCl (Maxipime 1gm/50 ml (Pmx)) 50 ml @ 100 mls/hr DAILY IVPB Last administered on 11/01/16 12:18; Admin Dose 100 MLS/HR; Start 11/01/16 at 11:30 Pantoprazole (Protonix Iv) 40 mg BID@06,18 IV Last administered on 11/02/16 05 :24; Admin Dose 40 MG; Start 11/01/16 at 18:00 SUJIT MAXWELL Nov 02, 2016 10:03
[2016-11-02] MEDS: CEFEPIME 1GM/50 ML (PMX) 50 ML IVPB SCH (10:10)
[2016-11-02] MEDS: PROPOFOL 100 ML IV SCH ×2 (10:30→21:52)
--- NOTE | 2016-11-02 11:40 | PN ---
DATE: 11/02/2016 SUBJECTIVE: Patient remains intubated. He is hemodynamically stable and his bleeding has stopped. There is an unexplained leukocytosis of 22,000. The patient is currently undergoing a bleeding scan. Dr. Rivera's notes are appreciated. Further rec ommendations will be forthcoming based on the patient's further workup and clinical course. I will follow with you. Dictated By: PALOMO HUGGINS/INOCENCIO Conf#: [id number] DID#: [id number]
--- NOTE | 2016-11-02 11:45 | CONS ---
Date/Time of Note Date/Time of Note DATE: 11/02/16 TIME: 11:44 Consultation Date/Type/Reason Admit Date/Time Oct 30, 2016 at 08:00 Hx of Present Illness Neurology consultation for persistent encephalopathy. MRI Brain w/o contrast and EEG ordered. Patient at MRI this morning, unable to evaluate him, will follow up again tomorrow for further recommendations. Psychological: nl mood/affect, no complaints Past Medical History Medical History: coronary artery disease, GERD, GI bleed, hypertension Past Surgical History Past Surgical Hx: noncontributory Social History Alcohol Use: none Smoking Status: Never smoker Drug Use: none Exam/Review of Systems Vital Signs Vitals Vital Signs Date Time Temp Pulse Resp B/P Pulse Ox O2 Delivery O2 Flow Rate FiO2 11/02/16 09:35 83 14 99 30 11/02/16 08:00 98.5 157/67 Mechanical Ventilator 10/30/16 05:15 6.0 Intake and Output 11/01/16 11/01/16 11/02/16 15:00 23:00 07:00 Intake Total 625 ml 1075 ml Output Total 2475 ml 1435 ml 1225 ml Balance -2475 ml -810 ml -150 ml Results Result Diagram: 11/02/16 0430 11/02/16 0430 Results 24 hrs Laboratory Tests Test 11/01/16 11:53 11/01/16 16:03 11/01/16 17:56 11/01/16 20:33 Bedside Glucose 175 171 158 Hematocrit 30.7 L Hemoglobin 10.8 L Test 11/02/16 00:45 11/02/16 04:30 11/02/16 05:24 11/02/16 08:52 Bedside Glucose 194 113 155 Alanine Aminotransferase (ALT/SGPT) 79 H Albumin 2.0 L Albumin/Globulin Ratio 0.80 Alkaline Phosphatase 98 Anion Gap 13 Aspartate Amino Transf (AST/SGOT) 75 H Basophils # 0.1 Basophils % 0.3 Blood Urea Nitrogen 58 H Calcium Level 6.5 L Carbon Dioxide Level 35 H Chloride Level 96 L Creatinine 3.88 H Direct Bilirubin 0.00 Eosinophils # 0.1 Eosinophils % 0.4 Globulin 2.50 Glucose Level 100 # Hematocrit 31.0 L Hemoglobin 10.4 L Indirect Bilirubin 0.6 Lymphocytes # 1.2 Lymphocytes % 5.5 L Magnesium Level 2.0 Mean Corpuscular Hemoglobin 29.0 Mean Corpuscular Hemoglobin Concent 33.5 Mean Corpuscular Volume 86.4 Mean Platelet Volume 12.0 H Monocytes # 0.8 Monocytes % 3.6 Neutrophils # 20.3 H Neutrophils % 89.8 H Nucleated Red Blood Cells # 0.0 Nucleated Red Blood Cells % 0.0 Platelet Count 66 L Potassium Level 3.5 Red Blood Count 3.59 L Red Cell Distribution Width 14.5 Sodium Level 140 Total Bilirubin 0.6 Total Protein 4.5 L White Blood Count 22.7 #H Medications Medications Current Medications Flumazenil (Romazicon) 0.2 mg Q1M PRN IV BENZODIAZEPINE OVERDOSE; Start at 05:00 Naloxone HCl (Narcan) 0.4 mg Q3M PRN IV DECREASED REPIRATORY RATE; Start at 05:00 Ondansetron HCl (Zofran Inj) 4 mg Q6H PRN IV NAUSEA AND/OR VOMITING; Start 06/08 at 05:00 Acetaminophen (Tylenol Liquid) 650 mg Q6H PRN PO PAIN LEVEL 1-3 OR FEVER; Start 10/30/16 at 05:00 Acetaminophen (Tylenol Tab) 650 mg Q6H PRN PO PAIN LEVEL 1-3 OR FEVER; Start at 05:00 Morphine Sulfate (morphine) 2 mg Q4H PRN IV PAIN LEVEL 7-10 Last administered on 11/02/16 02:14; Admin Dose 2 MG; Start 10/30/16 at 05:00 Zolpidem Tartrate (Ambien) 5 mg QHS PRN PO INSOMNIA; Start 10/30/16 at 05:00 Docusate Sodium 100 mg 100 mg Q12H PRN PO CONSTIPATION; Start 10/30/16 at 05:00 Norepinephrine 16 mg/Dextrose 500 ml @ 1.87 mls/hr TITRATE IV ; Start 10/30/16 at 10:00 Sodium Bicarbonate/ Dextrose (Na Bicarb/D5W) 1,100 ml @ 125 mls/hr Q8H48M IV Last administered on 11/02/16 02:12; Admin Dose 125 MLS/HR; Start 10/30/16 at 18:30 IV Flush 10 ml 10 ml PRN PRN IV IV PROTOCOL; Start 10/30/16 at 19:00 Piperacillin Sod/ Tazobactam Sod (Zosyn 3.375gm/ 100 ml (Pmx)) 100 ml @ 200 mls /hr Q8 IVPB Last administered on 11/02/16 05:25; Admin Dose 200 MLS/HR; Start 10/31/16 at 09:00 Acetaminophen (Tylenol Supp) 650 mg Q6H PRN [place] FEVER Last administered on 08:43; Admin Dose 650 MG; Start 10/31/16 at 09:00 Miscellaneous Information 1 ea NOTE XX ; Start 10/31/16 at 12:30 Glucose (Glutose) 15 gm Q15M PRN PO DECREASED GLUCOSE; Start 10/31/16 at 12:30 Glucose (Glutose) 22.5 gm Q15M PRN PO DECREASED GLUCOSE; Start 10/31/16 at 12: 30 Dextrose (D50w Syringe) 25 ml Q15M PRN IV DECREASED GLUCOSE; Start 10/31/16 at 12:30 Dextrose (D50w Syringe) 50 ml Q15M PRN IV DECREASED GLUCOSE; Start 10/31/16 at 12:30 Glucagon (Glucagen) 1 mg Q15M PRN IM DECREASED GLUCOSE; Start 10/31/16 at 12:30 Glucose (Glutose) 15 gm Q15M PRN BUCCAL DECREASED GLUCOSE; Start 10/31/16 at 12 :30 Insulin Aspart (Novolog Insulin Pen) NOVOLOG *MODERATE* ALGORI... Q4 SC Last administered on 11/02/16 08:55; Admin Dose 2 UNIT; Start 10/31/16 at 21:00 Hydralazine HCl 10 mg 10 mg Q4H PRN IV SBP GREATER THAN 170 Last administered on 11/02/16 02:45; Admin Dose 10 MG; Start 10/31/16 at 23:00 Propofol 100 ml @ 1.95 mls/hr Q12H IV ; Start 11/01/16 at 10:30 Cefepime HCl (Maxipime 1gm/50 ml (Pmx)) 50 ml @ 100 mls/hr DAILY IVPB Last administered on 11/02/16 10:10; Admin Dose 100 MLS/HR; Start 11/01/16 at 11:30 Pantoprazole (Protonix Iv) 40 mg BID@06,18 IV Last administered on 11/02/16 05 :24; Admin Dose 40 MG; Start 11/01/16 at 18:00 OVIDIO CRUZ MD Nov 02, 2016 11:45
--- NOTE | 2016-11-02 11:48 | RADRPT ---
AMENDMENT: 11/02/2016 12:08:48 PM Eddie Cedeño M.D A call report attempt was made to the ICU but no one was available to take report at 11/02/2016 11:38 :19 PM. PROCEDURE: MR Brain without contrast. CLINICAL INDICATION: Neurologic deficit TECHNIQUE: An MRI of the brain was performed on a high-resolution MR scanner utilizing the followi ng sequences: Sagittal and axial T1 weighted, axial T2 weighted, axial FLAIR, coronal GRE, and axial diffusion weighted with ADC mapping. Images were reviewed high-resolution PACS workstation. No con trast was administered. COMPARISON: None FINDINGS: Numerous foci of diffusion restriction are seen involving the bilateral frontal lobes including the pre central gyrus bilaterally, right deep frontal white matter, posterior cingulate gyrus/corpus all losum, bilateral cerebellar hemispheres. No significant mass effect or midline shift. 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 Scattered subcortical, deep, and periventricular white matter T2-weighted/FLAIR hyperintensities ar e consistent with microvascular ischemic disease. Moderate volume loss. Paranasal sinus partial opacification. Opacified right mastoid and middle ea r cavity. Partially opacified left mastoid. Normal flow voids are visible in the major proximal intracranial arteries suggesting their patency. IMPRESSION: Scattered infarcts in the bilateral cerebral and cerebellar hemispheres suggestive of an underlying embolic etiology. 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 Chronic microvascular disease. RPTAT: AA .Eddie Cedeño MD, Date Time Electronically viewed and signed by .Eddie Cedeño MD, MD on 11/02/2016 12:08 .T/
[2016-11-02 16:54] LABS: HEMATOCRIT 32.3 % (42.0-52.0); HEMOGLOBIN 11.1 g/dl (14.0-18.0)
--- NOTE | 2016-11-02 17:08 | CONS ---
DATE OF ADMISSION: 10/30/2016 DATE OF CONSULTATION: 11/02/2016 TYPE OF CONSULTATION: Infectious Disease. REASON FOR CONSULTATION: Antibiotic management. HISTORY OF PRESENT ILLNESS: Daquan Duran is a 71-year-old male who comes in. He was i n usual state of health until the night of the , when he developed bright red blood per rectum, l ightheadedness, and near syncope. He was brought to the emergency room. Dr. Arshad was called, and he wanted GI to do an emergent colonoscopy to identify the source of bleeding first. Patient was h ypotensive and tachycardic. His other problems include coronary artery disease, GERD, GI bleed, and hypertension. On admission, his white count was 14.2, H and H of 6.8 and 21.5, platelet count 210, 000. BUN and creatinine 47/3.03. PAST MEDICAL HISTORY: Operations: None. FAMILY HISTORY: Noncontributory. SOCIAL HISTORY: Does not smoke, drink, or abuse drugs. ALLERGIES: NONE TO PENICILLIN, SULFA, OR FOODS. MEDICATIONS: Per chart. REVIEW OF SYSTEMS: As per HPI. PHYSICAL EXAMINATION: GENERAL: Patient is an elderly appearing male who is intubated on a respirator. HOSPITAL COURSE: Patient was seen in consultation by Dr. Marroquin on the . He had a negative EGD and colonoscopy. He had severe metabolic acidosis with interval correction. Likely cause of GI ble ed was hypoperfusion. He is thrombocytopenic. Patient was intubated, placed on a respirator. Whit e count on the was 17,000, H and H 8.3 and 24.3, platelet count 69,000. BUN and creatinine 56/ 3.96. Chest x-ray shows endotracheal tube, a left PICC line. Lungs otherwise clear. MRI of the br ain, scattered infarcts in the bilateral cerebral and cerebellar hemispheres, suggesting an underlyi ng embolic etiology, chronic left centrum semiovale and right thalamic lacunar infarcts, old right a nterior temporal and cortical infarcts, chronic microvascular disease. Today, patient had an EGD wi th brushing and colonoscopy with washings by Dr. Stout. Neurology saw the patient for persistent enc ephalopathy. White count today is 22.7. With regard to his antibiotics, patient is on cefepime and Zosyn, but microbiologically, his blood cultures are negative, and his urine is growing E. coli sen sitive to everything. PAST MEDICAL HISTORY: Operations as outlined. FAMILY HISTORY: Noncontributory. SOCIAL HISTORY: Does not smoke, drink, or abuse drugs. ALLERGIES: NONE TO PENICILLIN, SULFA, OR FOODS. MEDICATIONS: Per chart. REVIEW OF SYSTEMS: As per HPI. PHYSICAL EXAMINATION: GENERAL: Patient is an elderly appearing male who is intubated on a respirator. He has an ET tube. He has a PICC line. SKIN: Without generalized rash. HEENT: Within normal limits. NECK: Supple. LYMPH NODES: None palpable. CHEST: Decreased breath sounds at the bases. HEART: Without murmur or gallop. ABDOMEN: Soft, nontender, without organosplenomegaly or masses. EXTREMITIES: Without cyanosis, clubbing, or edema. RECTAL AND GENITAL: Deferred. NEUROLOGIC: No focal neurological abnormalities. Patient is sedated on a respirator, so his neurol ogical evaluation cannot be completed. IMPRESSION/PLAN: We will deescalate his antibiotics, place him on ceftriaxone, discontinue the Zosy n and cefepime. I will dictate my findings to Dr. Cheema and to the aforementioned consultants. Dictated By: NUBIA PUGH MD, JD/INOCENCIO Conf#: [id number] DID#: [id number]
--- NOTE | 2016-11-02 17:10 | RADRPT ---
PROCEDURE: Nuclear medicine GI bleeding scan CLINICAL INDICATION: Recurrent GI bleeding. Anemia. Bloody stool. TECHNIQUE: 24.4 mCi of technetium-99m tagged red blood cells was injected intravenously into the b felix. Planar imaging of the abdomen and pelvis was performed at 1 minutes intervals for 1 hour. Del ayed planar imaging was obtained as well. COMPARISON: None available FINDINGS: There is normal and homogeneous activity throughout the vascular structures. Low-level normal activ ity is seen throughout the abdominal pelvic cavity. No focus of abnormal increased activity is seen to indicate GI bleeding. Normal activity is seen accumulating within the bladder. IMPRESSION: 1. Negative GI bleeding scan. RPTAT: HMJB .eKe Rubio MD, Date Time Electronically viewed and signed by .Kee Rubio MD, on 11/02/2016 17:09 .B/
[2016-11-02] MEDS: CEFTRIAXONE 1 GM/50 ML (PMX) 50 ML IVPB SCH (17:45)
--- NOTE | 2016-11-02 22:46 | RADRPT ---
PROCEDURE: XR Chest. CLINICAL INDICATION: Endotracheal tube placement. TECHNIQUE: Portable AP semi erect view of the chest was obtained. COMPARISON: 11/01/2016 FINDINGS: The cardiomediastinal silhouette is within normal limits. Distal tip of the endotracheal tube is in good position projecting 4.8 cm above the michel. There has been improved aeration of the lungs co mpared to the prior study the lungs now appear clear. Left-sided PICC is again noted the tip projec ting in the superior vena cava region above the right atrial junction. There is no evidence for ple ural effusion, pneumothorax or pulmonary vascular congestion. The osseous structures are intact wit h no evidence for acute abnormality. Calcification of the aorta is again visualized. RPTAT:HJJR IMPRESSION: 1. Distal tip of the endotracheal tube is in good position approximately 4.8 cm above the michel. 2. Interval improvement in aeration of the lungs compared to 11/01/2016. 3. Left-sided PICC remains in good position. Physician Jon Date Time Electronically viewed and signed by Physician Jon on 11/02/2016 22:46 JR/
--- NOTE | 2016-11-02 23:17 | PN ---
Date/Time of Note Date/Time of Note DATE: 11/02/16 TIME: 23:15 Assessment/Plan VTE Prophylaxis VTE Prophylaxis Intervention: other Lines/Catheters IV Catheter Type (from Nrs): PICC Line Central line still needed: Yes Urinary Cath still in place: Yes Reason Cath still needed: other (indicate) Assessment/Plan Chief Complaint/Hosp Course IMPRESSION: 1. Patient has massive gastrointestinal bleed.better 2. Hyperkalemia.BETTER 3. Metabolic acidosis and acute kidney injury. 4. Incomplete database. 5. Hypoalbuminemia. 6 thrombocytopenia PER GI AND SURGERY antibiotic id Problems: Subjective 24 Hr Interval Summary Subjective hx not possible: other (on vent) Exam/Review of Systems Vital Signs Vitals Vital Signs Date Time Temp Pulse Resp B/P Pulse Ox O2 Delivery O2 Flow Rate FiO2 11/02/16 22:30 81 16 144/52 100 11/02/16 22:00 Mechanical Ventilator 11/02/16 20:15 30 11/02/16 20:00 99.9 10/30/16 05:15 6.0 Intake and Output 11/01/16 11/01/16 11/02/16 15:00 23:00 07:00 Intake Total 625 ml 1200 ml Output Total 2475 ml 1435 ml 1225 ml Balance -2475 ml -810 ml -25 ml Exam Neck: supple Respiratory: diminished breath sounds Cardiovascular: regular rate and rhythm Musculoskeletal: nl extremities to inspection Extremities: normal pulses Neurological: lethargic Results Result Diagram: 11/02/16 1640 11/02/16 0430 Results 24 hrs Laboratory Tests Test 11/02/16 00:45 11/02/16 04:30 11/02/16 05:24 11/02/16 08:52 Bedside Glucose 194 113 155 Alanine Aminotransferase (ALT/SGPT) 79 H Albumin 2.0 L Albumin/Globulin Ratio 0.80 Alkaline Phosphatase 98 Anion Gap 13 Aspartate Amino Transf (AST/SGOT) 75 H Basophils # 0.1 Basophils % 0.3 Blood Urea Nitrogen 58 H Calcium Level 6.5 L Carbon Dioxide Level 35 H Chloride Level 96 L Creatinine 3.88 H Direct Bilirubin 0.00 Eosinophils # 0.1 Eosinophils % 0.4 Globulin 2.50 Glucose Level 100 # Hematocrit 31.0 L Hemoglobin 10.4 L Indirect Bilirubin 0.6 Lymphocytes # 1.2 Lymphocytes % 5.5 L Magnesium Level 2.0 Mean Corpuscular Hemoglobin 29.0 Mean Corpuscular Hemoglobin Concent 33.5 Mean Corpuscular Volume 86.4 Mean Platelet Volume 12.0 H Monocytes # 0.8 Monocytes % 3.6 Neutrophils # 20.3 H Neutrophils % 89.8 H Nucleated Red Blood Cells # 0.0 Nucleated Red Blood Cells % 0.0 Platelet Count 66 L Potassium Level 3.5 Red Blood Count 3.59 L Red Cell Distribution Width 14.5 Sodium Level 140 Total Bilirubin 0.6 Total Protein 4.5 L White Blood Count 22.7 #H Test 11/02/16 12:39 11/02/16 16:40 11/02/16 17:23 11/02/16 20:52 Bedside Glucose 136 172 179 Hematocrit 32.3 L Hemoglobin 11.1 L Medications Medications Current Medications Flumazenil (Romazicon) 0.2 mg Q1M PRN IV BENZODIAZEPINE OVERDOSE; Start at 05:00 Naloxone HCl (Narcan) 0.4 mg Q3M PRN IV DECREASED REPIRATORY RATE; Start at 05:00 Ondansetron HCl (Zofran Inj) 4 mg Q6H PRN IV NAUSEA AND/OR VOMITING; Start 06/08 at 05:00 Acetaminophen (Tylenol Liquid) 650 mg Q6H PRN PO PAIN LEVEL 1-3 OR FEVER; Start 10/30/16 at 05:00 Acetaminophen (Tylenol Tab) 650 mg Q6H PRN PO PAIN LEVEL 1-3 OR FEVER; Start at 05:00 Morphine Sulfate (morphine) 2 mg Q4H PRN IV PAIN LEVEL 7-10 Last administered on 11/02/16 20:52; Admin Dose 2 MG; Start 10/30/16 at 05:00 Zolpidem Tartrate (Ambien) 5 mg QHS PRN PO INSOMNIA; Start 10/30/16 at 05:00 Docusate Sodium 100 mg 100 mg Q12H PRN PO CONSTIPATION; Start 10/30/16 at 05:00 Norepinephrine 16 mg/Dextrose 500 ml @ 1.87 mls/hr TITRATE IV ; Start 10/30/16 at 10:00 Sodium Bicarbonate/ Dextrose (Na Bicarb/D5W) 1,100 ml @ 125 mls/hr Q8H48M IV Last administered on 11/02/16 13:44; Admin Dose 125 MLS/HR; Start 10/30/16 at 18:30 IV Flush (NS 10 ml) 10 ml PRN PRN IV IV PROTOCOL; Start 10/30/16 at 19:00 Acetaminophen (Tylenol Supp) 650 mg Q6H PRN [place] FEVER Last administered on 08:43; Admin Dose 650 MG; Start 10/31/16 at 09:00 Miscellaneous Information 1 ea NOTE XX ; Start 10/31/16 at 12:30 Glucose (Glutose) 15 gm Q15M PRN PO DECREASED GLUCOSE; Start 10/31/16 at 12:30 Glucose (Glutose) 22.5 gm Q15M PRN PO DECREASED GLUCOSE; Start 10/31/16 at 12: 30 Dextrose (D50w Syringe) 25 ml Q15M PRN IV DECREASED GLUCOSE; Start 10/31/16 at 12:30 Dextrose (D50w Syringe) 50 ml Q15M PRN IV DECREASED GLUCOSE; Start 10/31/16 at 12:30 Glucagon (Glucagen) 1 mg Q15M PRN IM DECREASED GLUCOSE; Start 10/31/16 at 12:30 Glucose (Glutose) 15 gm Q15M PRN BUCCAL DECREASED GLUCOSE; Start 10/31/16 at 12 :30 Insulin Aspart (Novolog Insulin Pen) NOVOLOG *MODERATE* ALGORI... Q4 SC Last administered on 11/02/16 20:55; Admin Dose 2 UNIT; Start 10/31/16 at 21:00 Hydralazine HCl 10 mg 10 mg Q4H PRN IV SBP GREATER THAN 170 Last administered on 11/02/16 15:40; Admin Dose 10 MG; Start 10/31/16 at 23:00 Propofol (Diprivan) 100 ml @ 1.95 mls/hr Q12H IV ; Start 11/01/16 at 10:30 Pantoprazole 40 mg 40 mg BID@06,18 IV Last administered on 11/02/16 17:49; Admin Dose 40 MG; Start 11/01/16 at 18:00 Ceftriaxone Sodium (Rocephin) 50 ml @ 100 mls/hr Q24H IVPB Last administered on 11/02/16 17:45; Admin Dose 100 MLS/HR; Start 11/02/16 at 16:30 ABBY RAMOS MD Nov 02, 2016 23:17
[2016-11-03] VITALS (45 sets, daily range): BP systolic 132–191; BP diastolic 44–97; PULSE 69–102; RESP 8–24
[2016-11-03] MEDS: SODIUM BICARBONATE (IV ADD) 100 MEQ in DEXTROSE 5% 1,000 ML IV SCH ×3 (00:25→20:22)
[2016-11-03] MEDS: morphine 2 MG INJ IV PRN ×3 (00:40→17:11)
[2016-11-03] MEDS: ALBUTEROL HFA 8 GM INHALER INH SCH ×6 (01:10→20:43)
[2016-11-03] MEDS: IPRATROPIUM (HFA) 12.9 GM INHALER INH SCH ×6 (01:10→20:43)
[2016-11-03] MEDS: INSULIN ASPART [NOVOLOG] 3 ML PEN SC SCH ×7 (01:19→21:05)
[2016-11-03] MEDS: hydrALAzine 20 MG INJ IV PRN ×3 (03:19→19:30)
[2016-11-03 05:50] LABS: ADD SCAN DIFF NO
[2016-11-03] MEDS: PANTOPRAZOLE 40 MG INJ IV SCH ×2 (06:04→17:17)
[2016-11-03 06:12] LABS: ABNORMAL IP MESSAGE 1; BASOPHIL # 0.1 10^3/ul (0.0-0.1); BASOPHILS % 0.3 % (0.0-2.0); EOSINOPHILS # 0.4 10^3/ul (0.0-0.5); EOSINOPHILS % 1.7 % (0.0-7.0); HEMATOCRIT 31.6 % (42.0-52.0); HEMOGLOBIN 10.4 g/dl (14.0-18.0); LYMPHOCYTES # 1.9 10^3/ul (0.8-2.9); LYMPHOCYTES % 8.5 % (15.0-51.0); MEAN CORPUSCULAR HEMOGLOBIN 28.7 pg (29.0-33.0); MEAN CORPUSCULAR HGB CONC 32.9 g/dl (32.0-37.0); MEAN CORPUSCULAR VOLUME 87.3 fl (82.0-101.0); MEAN PLATELET VOLUME 12.3 fl (7.4-10.4); MONOCYTE # 1.1 10^3/ul (0.3-0.9); MONOCYTES % 5.1 % (0.0-11.0); NEUTROPHIL # 18.7 10^3/ul (1.6-7.5); NEUTROPHILS % 83.9 % (39.0-77.0); NUCLEATED RED BLOOD CELLS% 0.1 /100WBC (0.0-0.0); PLATELET COUNT 72 10^3/UL (140-415); RED BLOOD COUNT 3.62 10^6/ul (4.70-6.10); RED CELL DISTRIBUTION WIDTH 14.3 % (11.5-14.5); WHITE BLOOD COUNT 22.3 10^3/ul (4.8-10.8)
[2016-11-03 06:16] LABS: ALBUMIN 2.1 g/dl (3.3-4.9); POTASSIUM 3.5 mmol/L (3.5-5.1)
[2016-11-03 06:18] LABS: CREATININE 3.18 mg/dl (0.61-1.24)
[2016-11-03 06:19] LABS: ALBUMIN/GLOBULIN RATIO 0.75; BILIRUBIN,INDIRECT 0.4 mg/dl (0-1.1); BILIRUBIN,TOTAL 0.4 mg/dl (0.2-1.3); CALCIUM 6.9 mg/dl (8.4-10.2); TOTAL PROTEIN 4.9 g/dl (6.1-8.1)
--- NOTE | 2016-11-03 07:52 | CONS ---
Date/Time of Note Date/Time of Note DATE: 11/03/16 TIME: 07:48 Assessment/Plan Assessment/Plan Additional Assessment/Plan Ventilator settings; AC of 10, tidal volume 375, PEEP of 5, 40% FiO2. Chest x-ray was reviewed from 10:45 PM last night which is totally clear. Endotracheal tube is at an adequate level. Assessment recommendations; 1. Patient admitted for anemia without any overt bleeding site been discovered despite undergoing EGD and colonoscopy. Patient maintaining stable hematocrit. 2. Leukocytosis of uncertain etiology. No gross evidence of any significant infective process at the very mild UTI. Patient currently on Rocephin. 3. Renal insufficiency. With improving serum creatinine. 4. Severe mental unresponsiveness likely from accumulated dosing of Versed in conjunction with renal insufficiency however patient's mental status today is markedly improved. 5. Thrombocytopenia with improving platelet count. Patient was assessed briefly at bedside on CPAP mode, currently has excellent weaning parameters. I would recommend switching him to CPAP mode at least for 45 minutes and to perform an ABG ,if the ABG is adequate to extubate him. Meanwhile continue current treatment. Consultation Date/Type/Reason Admit Date/Time Oct 30, 2016 at 08:00 Initial Consult Date 10/30/16 Type of Consultation: Pulmonary/critical care Referring Provider: ABBY RAMOS MD 24 HR Interval Summary Free Text/Dictation Patient condition is significantly improved. Marked mental status is markedly improved to the point where the patient is following commands. She has remained hemodynamically stable. No overt bleeding noted. Next General exam; elderly male, orally intubated, awake currently in no distress. Exam/Review of Systems Vital Signs Vitals Vital Signs Date Time Temp Pulse Resp B/P Pulse Ox O2 Delivery O2 Flow Rate FiO2 11/03/16 07:00 81 11 152/82 99 Mechanical Ventilator 11/03/16 05:43 30 11/03/16 04:00 98.5 Intake and Output 11/02/16 11/02/16 11/03/16 15:00 23:00 07:00 Intake Total 1050 ml 1150 ml 1000 ml Output Total 1450 ml 1465 ml 1235 ml Balance -400 ml -315 ml -235 ml Exam H EENT exam; supple neck, no JVD. No lymphadenopathy. Midline trachea. No thyromegaly. Orally intubated. Fair dentition. Pupils are small bilaterally. Chest examination; clear to auscultation bilaterally. S1-S2 audible, no murmurs. Regular rhythm. Abdomen examination; soft, nondistended. No organomegaly. Bowel sounds audible. Extremity examination; no peripheral edema. Pulses 1+ bilaterally. 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 Results Result Diagram: 11/03/16 0535 11/03/16 0535 Results 24 hrs Laboratory Tests Test 11/02/16 08:52 11/02/16 12:39 11/02/16 16:40 11/02/16 17:23 Bedside Glucose 155 136 172 Hematocrit 32.3 L Hemoglobin 11.1 L Test 11/02/16 20:52 11/03/16 01:18 11/03/16 05:35 11/03/16 06:03 Bedside Glucose 179 180 188 Alanine Aminotransferase (ALT/SGPT) 81 H Albumin 2.1 L Albumin/Globulin Ratio 0.75 Alkaline Phosphatase 110 Anion Gap 10 Aspartate Amino Transf (AST/SGOT) 64 H Basophils # 0.1 Basophils % 0.3 Blood Urea Nitrogen 49 H Calcium Level 6.9 L Carbon Dioxide Level 39 H Chloride Level 91 L Creatinine 3.18 H Direct Bilirubin 0.00 Eosinophils # 0.4 Eosinophils % 1.7 Globulin 2.80 Glucose Level 162 Hematocrit 31.6 L Hemoglobin 10.4 L Indirect Bilirubin 0.4 Lymphocytes # 1.9 Lymphocytes % 8.5 L Mean Corpuscular Hemoglobin 28.7 L Mean Corpuscular Hemoglobin Concent 32.9 Mean Corpuscular Volume 87.3 Mean Platelet Volume 12.3 H Monocytes # 1.1 H Monocytes % 5.1 Neutrophils # 18.7 H Neutrophils % 83.9 H Nucleated Red Blood Cells # 0.0 Nucleated Red Blood Cells % 0.1 H Platelet Count 72 L Potassium Level 3.5 Red Blood Count 3.62 L Red Cell Distribution Width 14.3 Sodium Level 136 Total Bilirubin 0.4 Total Protein 4.9 L White Blood Count 22.3 H Medications Medications Current Medications Flumazenil (Romazicon) 0.2 mg Q1M PRN IV BENZODIAZEPINE OVERDOSE; Start at 05:00 Naloxone HCl (Narcan) 0.4 mg Q3M PRN IV DECREASED REPIRATORY RATE; Start at 05:00 Ondansetron HCl (Zofran Inj) 4 mg Q6H PRN IV NAUSEA AND/OR VOMITING; Start 06/08 at 05:00 Acetaminophen (Tylenol Liquid) 650 mg Q6H PRN PO PAIN LEVEL 1-3 OR FEVER; Start 10/30/16 at 05:00 Acetaminophen (Tylenol Tab) 650 mg Q6H PRN PO PAIN LEVEL 1-3 OR FEVER; Start at 05:00 Morphine Sulfate (morphine) 2 mg Q4H PRN IV PAIN LEVEL 7-10 Last administered on 11/03/16 00:40; Admin Dose 2 MG; Start 10/30/16 at 05:00 Zolpidem Tartrate (Ambien) 5 mg QHS PRN PO INSOMNIA; Start 10/30/16 at 05:00 Docusate Sodium 100 mg 100 mg Q12H PRN PO CONSTIPATION; Start 10/30/16 at 05:00 Norepinephrine 16 mg/Dextrose 500 ml @ 1.87 mls/hr TITRATE IV ; Start 10/30/16 at 10:00 Sodium Bicarbonate/ Dextrose (Na Bicarb/D5W) 1,100 ml @ 125 mls/hr Q8H48M IV Last administered on 11/03/16 00:25; Admin Dose 125 MLS/HR; Start 10/30/16 at 18:30 IV Flush (NS 10 ml) 10 ml PRN PRN IV IV PROTOCOL; Start 10/30/16 at 19:00 Acetaminophen (Tylenol Supp) 650 mg Q6H PRN [place] FEVER Last administered on 08:43; Admin Dose 650 MG; Start 10/31/16 at 09:00 Miscellaneous Information 1 ea NOTE XX ; Start 10/31/16 at 12:30 Glucose (Glutose) 15 gm Q15M PRN PO DECREASED GLUCOSE; Start 10/31/16 at 12:30 Glucose (Glutose) 22.5 gm Q15M PRN PO DECREASED GLUCOSE; Start 10/31/16 at 12: 30 Dextrose (D50w Syringe) 25 ml Q15M PRN IV DECREASED GLUCOSE; Start 10/31/16 at 12:30 Dextrose (D50w Syringe) 50 ml Q15M PRN IV DECREASED GLUCOSE; Start 10/31/16 at 12:30 Glucagon (Glucagen) 1 mg Q15M PRN IM DECREASED GLUCOSE; Start 10/31/16 at 12:30 Glucose (Glutose) 15 gm Q15M PRN BUCCAL DECREASED GLUCOSE; Start 10/31/16 at 12 :30 Insulin Aspart (Novolog Insulin Pen) NOVOLOG *MODERATE* ALGORI... Q4 SC Last administered on 11/03/16 06:04; Admin Dose 4 UNIT; Start 10/31/16 at 21:00 Hydralazine HCl 10 mg 10 mg Q4H PRN IV SBP GREATER THAN 170 Last administered on 11/03/16 03:19; Admin Dose 10 MG; Start 10/31/16 at 23:00 Propofol (Diprivan) 100 ml @ 1.95 mls/hr Q12H IV ; Start 11/01/16 at 10:30 Pantoprazole 40 mg 40 mg BID@06,18 IV Last administered on 11/03/16 06:04; Admin Dose 40 MG; Start 11/01/16 at 18:00 Ceftriaxone Sodium (Rocephin) 50 ml @ 100 mls/hr Q24H IVPB Last administered on 11/02/16 17:45; Admin Dose 100 MLS/HR; Start 11/02/16 at 16:30 SUJIT MAXWELL Nov 03, 2016 07:51
[2016-11-03] MEDS: PROPOFOL 100 ML IV SCH ×2 (10:30→22:30)
[2016-11-03 10:33] LABS: AADO2 Arterial 41.2 mmHg (7.0-24.0); Arterial Base Excess 14.1 mmol/L (-3.0-3); Arterial COHb 0.3 % (0.0-3.0); Arterial Fraction of Oxyhgb 97.3 % (93.0-99.0); Arterial HCO3 38.6 mmol/L (22.0-26.0); Arterial MetHb 0.4 % (0.0-1.5); Arterial Total Hemglobin 10.6 g/dl (12.0-18.0); Blood Gas PS 10; MODE VENT - CPAP
--- NOTE | 2016-11-03 10:46 | PN ---
DATE: 11/03/2016 SUBJECTIVE: Patient is hemodynamically stable and his bleeding has stopped. LABORATORY DATA: His hematocrit is 31.6, unexplained leukocytosis at 22.3 persists. His renal func tion is improving and his BUN is down to 49 with improvement in his creatinine of 3.18. PHYSICAL EXAMINATION: ABDOMEN: Soft and nontender. Ventilator status is improving and he is on a slow wean. PLAN: I have discussed imaging issues with the radiologist. Since the bleeding site was presumed t o be in the small intestine anywhere from the second portion of the duodenum down, the best imaging study for this would be a CT enterography with IV contrast. However, because of the renal failure, we will use oral contrast only. Further recommendations will be forthcoming based on the patient's further workup and clinical course. I will follow with you. Dictated By: PALOMO HUGGINS/INOCENCIO Conf#: [id number] DID#: [id number]
--- NOTE | 2016-11-03 11:32 | RADRPT ---
PROCEDURE: XR Chest. CLINICAL INDICATION: Shortness of breath. TECHNIQUE: Single frontal view. COMPARISON: 11/02/2016. FINDINGS: The endotracheal tube and left arm PICC line are in satisfactory position. There is mild atelectasi s at the lung bases. The lungs are otherwise clear. The heart size is normal. There is calcification in the aorta consistent with atherosclerosis. There is no pleural effusion. There is no pneumothorax. IMPRESSION: 1. Mild atelectasis at the lung bases. 2. Atherosclerosis. 3. Endotracheal tube and left arm PICC line in satisfactory position. RPTAT: QQ .Allen Mackey MD, MD Date Time Electronically viewed and signed by .Allen Mackey MD, MD on 11/03/2016 11:32 .R/
--- NOTE | 2016-11-03 14:51 | PN ---
DATE: 11/03/2016 SUBJECTIVE: No acute changes. The patient is awake, lying comfortably in bed, no fevers. He faile d weaning trials today. VITAL SIGNS: Temperature 98.5, pulse 81, respirations 13, blood pressure 152/57, saturation 100 on 30 FIO2. INDWELLINGS: Endotracheal tube, NG tube, right radial A-line, left upper extremity PICC line placed on October 30. DIAGNOSTICS: Chest x-ray this morning revealed mild atelectasis at the lung bases. MICROBIOLOGY: Urine culture on admission grew E. coli. ANTIMICROBIALS: The patient is on IV Rocephin. PHYSICAL EXAMINATION: GENERAL: Fragile, elderly man who is lying comfortably in bed. HEENT: Head atraumatic, normocephalic. Sclerae anicteric. Buccal mucosa dry. NECK: Supple, trachea midline. CHEST: Rise symmetrical. Breath sounds diminished to bases. HEART: S1, S2. ABDOMEN: Soft, bowel tones present. EXTREMITIES: Without cyanosis. ASSESSMENT: 1. Acute respiratory failure. 2. Urinary tract infection. 3. Acute anemia. 4. Persistent leukocytosis, possibly reactive. PLAN: The patient remains stable. Blood cultures since October 31 remain negative. Urine culture gr ew E. coli that is covered with Rocephin. The patient is being followed by multiple consultants. His gastrointestinal bleeding scan essentially was negative. He is being seen by Dr. Arshad, who re commends a CT enterography with IV contrast if bleeding persists. Dictated By: KAYLA CASTREJON [employer] INSTRUCTOR for NUBIA VALLECILLO/INOCENCIO Conf#: [id number] DID#: [id number]
--- NOTE | 2016-11-03 15:26 | CONS ---
Date/Time of Note Date/Time of Note DATE: 11/03/16 TIME: 15:14 Assessment/Plan Assessment/Plan Chief Complaint/Hosp Course 71 year old male with history of HTN, HLD, CKD p/w massive GI bleed no clear source of bleeding, intubated for respiratory failure currently being managed in the ICU, MRI shows bilateral embolic appearing punctate infarcts. Encephalopathy likely in the setting of multiple bilateral cortical strokes as well as metabolic abnormalities. Routine EEG done to evaluate for potential seizures as well, pending review. Recommendations: -unable to initiate antiplatelet at this time until cleared by GI -may check FLP and HBA1C to optimize secondary risk factors for stroke -EEG result pending -continue to maintain normotension avoid blood pressure less than 120 -ECHO with bubble study, cardiology consultation to evaluate for afib -DVT ppx with SCD will continue to follow Problems: Consultation Date/Type/Reason Admit Date/Time Oct 30, 2016 at 08:00 Date of Consultation: Nov 03, 2016 Type of Consultation: Neurology Reason for Consultation encephalopathy Referring Provider: ABBY RAMOS MD Hx of Present Illness 71 year old male history of HTN, HLD, CKD presented to the hospital with massive gastrointestinal bleed, large bloody bowel movement with hospital course complicated by respiratory failure, requiring pressors for hypotension, metabolic acidosis with encephalopathy. On admission H/H: 6.8/21.5, further GI work up obtained, EGD with biopsy and colonoscopy showed fresh red blood with clots. MRI Brain was ordered for encephalopathy work up, shows numerous foci of restricted diffusion bilateral frontal lobes, pre central gyrus, right deep frontal matter, corpus callosum, bilateral cerebellar hemispheres. Chronic infarcts also seen in left centrum semiovale, right thalamic, right old anterior temporal infarcts. Respiratory status remains poor, failed weaning trials. Subjective hx not possible: pt non-verbal, pt critical Psychological: nl mood/affect, no complaints Past Medical History Medical History: coronary artery disease, GERD, GI bleed, hypertension Past Surgical History Past Surgical Hx: noncontributory Social History Alcohol Use: none Smoking Status: Never smoker Drug Use: none Exam/Review of Systems Vital Signs Vitals Vital Signs Date Time Temp Pulse Resp B/P Pulse Ox O2 Delivery O2 Flow Rate FiO2 11/03/16 12:35 67 13 100 30 11/03/16 12:00 98.5 152/57 Mechanical Ventilator Intake and Output 3/11/02/16 11/03/16 15:00 23:00 07:00 Intake Total 1050 ml 1150 ml 1000 ml Output Total 1450 ml 1465 ml 1335 ml Balance -400 ml -315 ml -335 ml Exam intubated breathing on ventilator opens his eyes to voice briefly tracks examiner delay in response unable to follow commands reliably grimaces to pain CN: LAURY can Doll's tracks although possible some right sided visual neglect no facial asymmetry Motor moves arms in the plane of the bed minimally, moves legs only to noxious toes are upgoing bilaterally Results Result Diagram: 11/03/16 0535 11/03/16 0535 Results 24 hrs Laboratory Tests Test 11/02/16 16:40 11/02/16 17:23 11/02/16 20:52 11/03/16 01:18 Hematocrit 32.3 L Hemoglobin 11.1 L Bedside Glucose 172 179 180 Test 11/03/16 05:35 11/03/16 06:03 11/03/16 08:45 11/03/16 09:32 Alanine Aminotransferase (ALT/SGPT) 81 H Albumin 2.1 L Albumin/Globulin Ratio 0.75 Alkaline Phosphatase 110 Anion Gap 10 Aspartate Amino Transf (AST/SGOT) 64 H Basophils # 0.1 Basophils % 0.3 Blood Urea Nitrogen 49 H Calcium Level 6.9 L Carbon Dioxide Level 39 H Chloride Level 91 L Creatinine 3.18 H Direct Bilirubin 0.00 Eosinophils # 0.4 Eosinophils % 1.7 Globulin 2.80 Glucose Level 162 Hematocrit 31.6 L Hemoglobin 10.4 L Indirect Bilirubin 0.4 Lymphocytes # 1.9 Lymphocytes % 8.5 L Mean Corpuscular Hemoglobin 28.7 L Mean Corpuscular Hemoglobin Concent 32.9 Mean Corpuscular Volume 87.3 Mean Platelet Volume 12.3 H Monocytes # 1.1 H Monocytes % 5.1 Neutrophils # 18.7 H Neutrophils % 83.9 H Nucleated Red Blood Cells # 0.0 Nucleated Red Blood Cells % 0.1 H Platelet Count 72 L Potassium Level 3.5 Prealbumin 7.0 L Red Blood Count 3.62 L Red Cell Distribution Width 14.3 Sodium Level 136 Total Bilirubin 0.4 Total Protein 4.9 L White Blood Count 22.3 H Bedside Glucose 188 143 Arterial Blood HCO3 38.6 H Arterial Blood Base Excess 14.1 H Arterial Blood Oxygen Saturation 98.0 Ankit Test N/A Arterial Blood Gas Puncture Site A-Line Arterial Blood Carboxyhemoglobin 0.3 Arterial Blood Date Drawn 11/03/2016 10:20:08 AM Arterial Blood Methemoglobin 0.4 Arterial Blood pCO2 (Temp correct) 48.3 H Arterial Blood pH (Temp corrected) 7.520 H Arterial Blood pO2 (Temp corrected) 116.0 H Blood Gas A-a O2 Differential 41.2 H Blood Gas Actual Respiration Rate 10 Blood Gas Low PEEP Setting 5.0 Blood Gas Modality VENT - CPAP Blood Gas Notified Time 11/03/2016 10:33:45 AM Blood Gas Notified Whom JLD Blood Gas Pressure Support 10 Blood Gas Specimen Source Blood arterial Blood Gas Temperature 37.0 FiO2 30.0 Oxyhemoglobin Percent 97.3 Total Hemoglobin 10.6 L Test 11/03/16 12:21 Bedside Glucose 148 Medications Medications Current Medications Flumazenil (Romazicon) 0.2 mg Q1M PRN IV BENZODIAZEPINE OVERDOSE; Start at 05:00 Naloxone HCl (Narcan) 0.4 mg Q3M PRN IV DECREASED REPIRATORY RATE; Start at 05:00 Ondansetron HCl (Zofran Inj) 4 mg Q6H PRN IV NAUSEA AND/OR VOMITING; Start 06/08 at 05:00 Acetaminophen (Tylenol Liquid) 650 mg Q6H PRN PO PAIN LEVEL 1-3 OR FEVER; Start 10/30/16 at 05:00 Acetaminophen (Tylenol Tab) 650 mg Q6H PRN PO PAIN LEVEL 1-3 OR FEVER; Start at 05:00 Morphine Sulfate (morphine) 2 mg Q4H PRN IV PAIN LEVEL 7-10 Last administered on 11/03/16t 00:40; Admin Dose 2 MG; Start 10/30/16 at 05:00 Zolpidem Tartrate (Ambien) 5 mg QHS PRN PO INSOMNIA; Start 10/30/16 at 05:00 Docusate Sodium 100 mg 100 mg Q12H PRN PO CONSTIPATION; Start 10/30/16 at 05:00 Norepinephrine 16 mg/Dextrose 500 ml @ 1.87 mls/hr TITRATE IV ; Start 10/30/16 at 10:00 Sodium Bicarbonate/ Dextrose (Na Bicarb/D5W) 1,100 ml @ 125 mls/hr Q8H48M IV Last administered on 11/03/16 09:26; Admin Dose 125 MLS/HR; Start 10/30/16 at 18:30 IV Flush (NS 10 ml) 10 ml PRN PRN IV IV PROTOCOL; Start 10/30/16 at 19:00 Acetaminophen (Tylenol Supp) 650 mg Q6H PRN [place] FEVER Last administered on 08:43; Admin Dose 650 MG; Start 10/31/16 at 09:00 Miscellaneous Information 1 ea NOTE XX ; Start 10/31/16 at 12:30 Glucose (Glutose) 15 gm Q15M PRN PO DECREASED GLUCOSE; Start 10/31/16 at 12:30 Glucose (Glutose) 22.5 gm Q15M PRN PO DECREASED GLUCOSE; Start 10/31/16 at 12: 30 Dextrose (D50w Syringe) 25 ml Q15M PRN IV DECREASED GLUCOSE; Start 10/31/16 at 12:30 Dextrose (D50w Syringe) 50 ml Q15M PRN IV DECREASED GLUCOSE; Start 10/31/16 at 12:30 Glucagon (Glucagen) 1 mg Q15M PRN IM DECREASED GLUCOSE; Start 10/31/16 at 12:30 Glucose (Glutose) 15 gm Q15M PRN BUCCAL DECREASED GLUCOSE; Start 10/31/16 at 12 :30 Insulin Aspart (Novolog Insulin Pen) NOVOLOG *MODERATE* ALGORI... Q4 SC Last administered on 11/03/16 12:23; Admin Dose 2 UNIT; Start 10/31/16 at 21:00 Hydralazine HCl 10 mg 10 mg Q4H PRN IV SBP GREATER THAN 170 Last administered on 11/03/16 15:01; Admin Dose 10 MG; Start 10/31/16 at 23:00 Propofol (Diprivan) 100 ml @ 1.95 mls/hr Q12H IV ; Start 11/01/16 at 10:30 Pantoprazole 40 mg 40 mg BID@06,18 IV Last administered on 11/03/16 06:04; Admin Dose 40 MG; Start 11/01/16 at 18:00 Ceftriaxone Sodium (Rocephin) 50 ml @ 100 mls/hr Q24H IVPB Last administered on 11/02/16 17:45; Admin Dose 100 MLS/HR; Start 3/13/17 at 16:30 OVIDIO CRUZ MD Nov 03, 2016 15:24
[2016-11-03] MEDS: CEFTRIAXONE 1 GM/50 ML (PMX) 50 ML IVPB SCH (15:54)
--- NOTE | 2016-11-03 20:31 | PN ---
Date/Time of Note Date/Time of Note DATE: 11/03/16 TIME: 20:29 Assessment/Plan VTE Prophylaxis VTE Prophylaxis Intervention: other Lines/Catheters IV Catheter Type (from Nrs): A Line Urinary Cath still in place: Yes Reason Cath still needed: other (indicate) Assessment/Plan Chief Complaint/Hosp Course IMPRESSION: 1. Patient has massive gastrointestinal bleed.better 2. Hyperkalemia.BETTER 3. Metabolic acidosis and acute kidney injury. 4. cva 5. Hypoalbuminemia. 6 thrombocytopenia PER GI AND SURGERY antibiotic id cardio Problems: Subjective 24 Hr Interval Summary Subjective hx not possible: other (mri positive cva) Respiratory: no complaints Cardiovascular: no complaints Exam/Review of Systems Vital Signs Vitals Vital Signs Date Time Temp Pulse Resp B/P Pulse Ox O2 Delivery O2 Flow Rate FiO2 11/03/16 18:00 79 18 148/82 98 Mechanical Ventilator 11/03/16 17:26 30 11/03/16 16:00 98.9 Intake and Output 11/02/16 11/02/16 11/03/16 15:00 23:00 07:00 Intake Total 1050 ml 1150 ml 1000 ml Output Total 1450 ml 1465 ml 1335 ml Balance -400 ml -315 ml -335 ml Exam Neck: supple Respiratory: clear to auscultation Cardiovascular: regular rate and rhythm Gastrointestinal: soft Musculoskeletal: nl extremities to inspection Extremities: normal pulses Results Result Diagram: 11/03/16 0535 11/03/16 0535 Results 24 hrs Laboratory Tests Test 11/02/16 20:52 11/03/16 01:18 11/03/16 05:35 11/03/16 06:03 Bedside Glucose 179 180 188 Alanine Aminotransferase (ALT/SGPT) 81 H Albumin 2.1 L Albumin/Globulin Ratio 0.75 Alkaline Phosphatase 110 Anion Gap 10 Aspartate Amino Transf (AST/SGOT) 64 H Basophils # 0.1 Basophils % 0.3 Blood Urea Nitrogen 49 H Calcium Level 6.9 L Carbon Dioxide Level 39 H Chloride Level 91 L Creatinine 3.18 H Direct Bilirubin 0.00 Eosinophils # 0.4 Eosinophils % 1.7 Globulin 2.80 Glucose Level 162 Hematocrit 31.6 L Hemoglobin 10.4 L Indirect Bilirubin 0.4 Lymphocytes # 1.9 Lymphocytes % 8.5 L Mean Corpuscular Hemoglobin 28.7 L Mean Corpuscular Hemoglobin Concent 32.9 Mean Corpuscular Volume 87.3 Mean Platelet Volume 12.3 H Monocytes # 1.1 H Monocytes % 5.1 Neutrophils # 18.7 H Neutrophils % 83.9 H Nucleated Red Blood Cells # 0.0 Nucleated Red Blood Cells % 0.1 H Platelet Count 72 L Potassium Level 3.5 Prealbumin 7.0 L Red Blood Count 3.62 L Red Cell Distribution Width 14.3 Sodium Level 136 Total Bilirubin 0.4 Total Protein 4.9 L White Blood Count 22.3 H Test 11/03/16 08:45 11/03/16 09:32 11/03/16 12:21 11/03/16 17:07 Bedside Glucose 143 148 174 Arterial Blood HCO3 38.6 H Arterial Blood Base Excess 14.1 H Arterial Blood Oxygen Saturation 98.0 Aknit Test N/A Arterial Blood Gas Puncture Site A-Line Arterial Blood Carboxyhemoglobin 0.3 Arterial Blood Date Drawn 11/03/2016 10:20:08 AM Arterial Blood Methemoglobin 0.4 Arterial Blood pCO2 (Temp correct) 48.3 H Arterial Blood pH (Temp corrected) 7.520 H Arterial Blood pO2 (Temp corrected) 116.0 H Blood Gas A-a O2 Differential 41.2 H Blood Gas Actual Respiration Rate 10 Blood Gas Low PEEP Setting 5.0 Blood Gas Modality VENT - CPAP Blood Gas Notified Time 11/03/2016 10:33:45 AM Blood Gas Notified Whom JLD Blood Gas Pressure Support 10 Blood Gas Specimen Source Blood arterial Blood Gas Temperature 37.0 FiO2 30.0 Oxyhemoglobin Percent 97.3 Total Hemoglobin 10.6 L Medications Medications Current Medications Flumazenil (Romazicon) 0.2 mg Q1M PRN IV BENZODIAZEPINE OVERDOSE; Start at 05:00 Naloxone HCl (Narcan) 0.4 mg Q3M PRN IV DECREASED REPIRATORY RATE; Start at 05:00 Ondansetron HCl (Zofran Inj) 4 mg Q6H PRN IV NAUSEA AND/OR VOMITING; Start 06/08 at 05:00 Acetaminophen (Tylenol Liquid) 650 mg Q6H PRN PO PAIN LEVEL 1-3 OR FEVER; Start 10/30/16 at 05:00 Acetaminophen (Tylenol Tab) 650 mg Q6H PRN PO PAIN LEVEL 1-3 OR FEVER; Start at 05:00 Morphine Sulfate (morphine) 2 mg Q4H PRN IV PAIN LEVEL 7-10 Last administered on 11/03/16 15:50; Admin Dose 2 MG; Start 10/30/16 at 05:00 Zolpidem Tartrate (Ambien) 5 mg QHS PRN PO INSOMNIA; Start 10/30/16 at 05:00 Docusate Sodium 100 mg 100 mg Q12H PRN PO CONSTIPATION; Start 10/30/16 at 05:00 Norepinephrine 16 mg/Dextrose 500 ml @ 1.87 mls/hr TITRATE IV ; Start 10/30/16 at 10:00 Sodium Bicarbonate/ Dextrose (Na Bicarb/D5W) 1,100 ml @ 125 mls/hr Q8H48M IV Last administered on 11/03/16 20:22; Admin Dose 125 MLS/HR; Start 10/30/16 at 18:30 IV Flush (NS 10 ml) 10 ml PRN PRN IV IV PROTOCOL; Start 10/30/16 at 19:00 Acetaminophen (Tylenol Supp) 650 mg Q6H PRN [place] FEVER Last administered on 08:43; Admin Dose 650 MG; Start 10/31/16 at 09:00 Miscellaneous Information 1 ea NOTE XX ; Start 10/31/16 at 12:30 Glucose (Glutose) 15 gm Q15M PRN PO DECREASED GLUCOSE; Start 10/31/16 at 12:30 Glucose (Glutose) 22.5 gm Q15M PRN PO DECREASED GLUCOSE; Start 10/31/16 at 12: 30 Dextrose (D50w Syringe) 25 ml Q15M PRN IV DECREASED GLUCOSE; Start 10/31/16 at 12:30 Dextrose (D50w Syringe) 50 ml Q15M PRN IV DECREASED GLUCOSE; Start 10/31/16 at 12:30 Glucagon (Glucagen) 1 mg Q15M PRN IM DECREASED GLUCOSE; Start 10/31/16 at 12:30 Glucose (Glutose) 15 gm Q15M PRN BUCCAL DECREASED GLUCOSE; Start 10/31/16 at 12 :30 Insulin Aspart (Novolog Insulin Pen) NOVOLOG *MODERATE* ALGORI... Q4 SC Last administered on 11/03/16 17:09; Admin Dose 2 UNIT; Start 10/31/16 at 21:00 Hydralazine HCl 10 mg 10 mg Q4H PRN IV SBP GREATER THAN 170 Last administered on 11/03/16 19:30; Admin Dose 10 MG; Start 10/31/16 at 23:00 Propofol (Diprivan) 100 ml @ 1.95 mls/hr Q12H IV ; Start 11/01/16 at 10:30 Pantoprazole 40 mg 40 mg BID@06,18 IV Last administered on 11/03/16 17:17; Admin Dose 40 MG; Start 11/01/16 at 18:00 Ceftriaxone Sodium (Rocephin) 50 ml @ 100 mls/hr Q24H IVPB Last administered on 11/03/16 15:54; Admin Dose 100 MLS/HR; Start 11/02/16 at 16:30 ABBY RAMOS MD Nov 03, 2016 20:30
[2016-11-04] VITALS (66 sets, daily range): BP systolic 130–184; BP diastolic 51–123; PULSE 63–118; RESP 1–22
[2016-11-04] MEDS: hydrALAzine 20 MG INJ IV PRN ×4 (00:38→12:00)
[2016-11-04] MEDS: ALBUTEROL HFA 8 GM INHALER INH SCH ×4 (01:31→13:08)
[2016-11-04] MEDS: IPRATROPIUM (HFA) 12.9 GM INHALER INH SCH ×4 (01:31→13:08)
[2016-11-04] MEDS: INSULIN ASPART [NOVOLOG] 3 ML PEN SC SCH ×6 (01:47→21:00)
[2016-11-04] MEDS: morphine 2 MG INJ IV PRN (01:51)
[2016-11-04] MEDS: SODIUM BICARBONATE (IV ADD) 100 MEQ in DEXTROSE 5% 1,000 ML IV SCH (04:17)
[2016-11-04 04:44] LABS: ADD SCAN DIFF NO
[2016-11-04 04:50] LABS: BASOPHILS % 0.3 % (0.0-2.0); EOSINOPHILS # 0.4 10^3/ul (0.0-0.5); EOSINOPHILS % 2.9 % (0.0-7.0); HEMATOCRIT 30.4 % (42.0-52.0); HEMOGLOBIN 10.3 g/dl (14.0-18.0); LYMPHOCYTES # 1.4 10^3/ul (0.8-2.9); MEAN CORPUSCULAR HEMOGLOBIN 29.2 pg (29.0-33.0); MEAN CORPUSCULAR HGB CONC 33.9 g/dl (32.0-37.0); MEAN CORPUSCULAR VOLUME 86.1 fl (82.0-101.0); MEAN PLATELET VOLUME 11.8 fl (7.4-10.4); MONOCYTE # 1.1 10^3/ul (0.3-0.9); MONOCYTES % 7.6 % (0.0-11.0); NEUTROPHIL # 11.2 10^3/ul (1.6-7.5); NEUTROPHILS % 78.2 % (39.0-77.0); PLATELET COUNT 104 10^3/UL (140-415); RED BLOOD COUNT 3.53 10^6/ul (4.70-6.10); RED CELL DISTRIBUTION WIDTH 14.2 % (11.5-14.5); WHITE BLOOD COUNT 14.3 10^3/ul (4.8-10.8)
[2016-11-04] MEDS: PANTOPRAZOLE 40 MG INJ IV SCH ×2 (05:22→17:24)
[2016-11-04 05:30] LABS: CHOL/HDL RATIO 6.4 RATIO
[2016-11-04 05:31] LABS: ALBUMIN 2.2 g/dl (3.3-4.9); POTASSIUM 3.3 mmol/L (3.5-5.1)
[2016-11-04 05:34] LABS: ALBUMIN/GLOBULIN RATIO 0.73; BILIRUBIN,INDIRECT 0.4 mg/dl (0-1.1); BILIRUBIN,TOTAL 0.4 mg/dl (0.2-1.3); CREATININE 2.7 mg/dl (0.61-1.24); TOTAL PROTEIN 5.2 g/dl (6.1-8.1)
[2016-11-04] MEDS: PROPOFOL 100 ML IV SCH ×2 (10:30→21:12)
--- NOTE | 2016-11-04 10:41 | PN ---
DATE: 11/04/2016 SUBJECTIVE: Although the patient remains intubated there is continued improvement. His H&H is stable. OBJECTIVE: Intubated ABDOMEN: His abdominal examination is benign. LABORATORY DATA: His white blood cell count has come down to 14,300. BUN is down to 58 and creatinine is down to 3.88. INR is 1.23. IMPRESSION: Continued improvement. The patient is clinically stable, has stopped bleeding. PLAN: We will proceed with CT enterography once the patient is extubated and stabilized. I will follow with you. Dictated By: PALOMO HUGGINS/INOCENCIO Conf#: [id number] DID#: [id number]
--- NOTE | 2016-11-04 11:11 | SP ---
DATE OF PROCEDURE: 11/01/2016 PROCEDURE: Electroencephalogram. HISTORY OF PRESENT ILLNESS: This is a 71-year-old male with large volume hemorrhage with lower GI b leed has been altered. CURRENT MEDICATIONS: 1. Protonix. 2. Cefepime. 3. Glucagon. 4. Apresoline. PROCEDURE: Utilizing a 16-channel EEG machine, cap scalp electrodes were applied in accordance with International 10-20 system. Uteoa-yu-apiva and hjwii-xk-exd montages were displayed. Electrical i mpedances were reported, less than 5 kilohms. DESCRIPTION: During the resting state a posterior dominant rhythm of about 5 to 6 Hz were seen bihe mispherically. Photic stimulation had a good response. Hyperventilation was not performed. There was no focal lateralizing or epileptiform discharge identified. INTERPRETATION: This is an abnormal EEG because of the presence of generalized bihemispheric backgr ound slowing consistent with bihemispheric subcortical dysfunction consistent with encephalopathy wi thout any epileptiform activity. Please correlate these findings with patient's clinical picture. Dictated By: EDGARD HUFF/INOCENCIO Conf#: [id number] DID#: [id number]
[2016-11-04 11:38] LABS: AADO2 Arterial 26.9 mmHg (7.0-24.0); Arterial Base Excess 16.5 mmol/L (-3.0-3); Arterial COHb 0.3 % (0.0-3.0); Arterial Fraction of Oxyhgb 97.7 % (93.0-99.0); Arterial HCO3 41.1 mmol/L (22.0-26.0); Arterial MetHb 0.3 % (0.0-1.5); Arterial Total Hemglobin 10.5 g/dl (12.0-18.0); Blood Gas PS 10; MODE VENT - CPAP
[2016-11-04] MEDS: DEXTROSE 5%-0.45% NACL 1,000 ML IV SCH (12:02)
--- NOTE | 2016-11-04 12:10 | CONS ---
Date/Time of Note Date/Time of Note DATE: 11/04/16 TIME: 12:08 Assessment/Plan Assessment/Plan Chief Complaint/Hosp Course SUBJECTIVE: No acute changes. The patient is lying comfortably in bed, no fevers. INDWELLINGS: Endotracheal tube, NG tube, left upper extremity PICC line placed on October 30. MICROBIOLOGY: Urine culture on admission grew E. coli. ANTIMICROBIALS: The patient is on IV Rocephin. PHYSICAL EXAMINATION: GENERAL: Fragile, elderly man who is lying comfortably in bed. HEENT: Head atraumatic, normocephalic. Sclerae anicteric. Buccal mucosa dry. NECK: Supple, trachea midline. CHEST: Rise symmetrical. Breath sounds diminished to bases. HEART: S1, S2. ABDOMEN: Soft, bowel tones present. EXTREMITIES: Without cyanosis. ASSESSMENT: 1. Acute respiratory failure. 2. Urinary tract infection. 3. Acute anemia. 4. Persistent leukocytosis, possibly reactive. PLAN: The patient remains stable. Blood cultures since October 31 remain negative. Urine culture grew E. coli that is covered with Rocephin. The patient is being followed by multiple consultants. Continue weaning trials per pulmonary rec-s. CT enterography once the patient is extubated and stabilized per surgical rec-s [facility] staff Problems: Consultation Date/Type/Reason Admit Date/Time Oct 30, 2016 at 08:00 Initial Consult Date 11/03/16 Type of Consultation: ID Referring Provider: ABBY RAMOS MD Exam/Review of Systems Vital Signs Vitals Vital Signs Date Time Temp Pulse Resp B/P Pulse Ox O2 Delivery O2 Flow Rate FiO2 11/04/16 11:45 82 15 162/57 100 CPAP Mechanical Ventilator 11/04/16 07:00 97.4 11/04/16 05:15 30 Intake and Output 11/03/16 11/03/16 11/04/16 15:00 23:00 07:00 Intake Total 750 ml 850 ml 1000 ml Output Total 710 ml 875 ml 1125 ml Balance 40 ml -25 ml -125 ml Results Result Diagram: 11/04/16 0420 11/04/16 0420 Results 24 hrs Laboratory Tests Test 11/03/16 12:21 11/03/16 17:07 11/03/16 21:02 11/04/16 01:45 Bedside Glucose 148 174 170 195 Test 11/04/16 04:20 11/04/16 04:41 11/04/16 08:35 11/04/16 11:30 Alanine Aminotransferase (ALT/SGPT) 67 Albumin 2.2 L Albumin/Globulin Ratio 0.73 Alkaline Phosphatase 115 Anion Gap 11 Aspartate Amino Transf (AST/SGOT) 44 Basophils # 0.0 Basophils % 0.3 Blood Urea Nitrogen 38 #H Calcium Level 7.0 L Carbon Dioxide Level 38 H Chloride Level 87 L Cholesterol Level 123 Cholesterol/HDL Ratio 6.4 Creatinine 2.70 H Direct Bilirubin 0.00 Eosinophils # 0.4 Eosinophils % 2.9 Globulin 3.00 Glucose Level 206 HDL Cholesterol 19 L Hematocrit 30.4 L Hemoglobin 10.3 L Hemoglobin A1c 5.7 Indirect Bilirubin 0.4 LDL Cholesterol, Calculated 75 Lymphocytes # 1.4 Lymphocytes % 10.0 L Mean Corpuscular Hemoglobin 29.2 Mean Corpuscular Hemoglobin Concent 33.9 Mean Corpuscular Volume 86.1 Mean Platelet Volume 11.8 H Monocytes # 1.1 H Monocytes % 7.6 Neutrophils # 11.2 H Neutrophils % 78.2 H Nucleated Red Blood Cells # 0.0 Nucleated Red Blood Cells % 0.0 Platelet Count 104 #L Potassium Level 3.3 L Red Blood Count 3.53 L Red Cell Distribution Width 14.2 Sodium Level 133 L Total Bilirubin 0.4 Total Protein 5.2 L Triglycerides Level 147 White Blood Count 14.3 #H Bedside Glucose 182 176 Arterial Blood HCO3 41.1 *H Arterial Blood Base Excess 16.5 H Arterial Blood Oxygen Saturation 98.3 H Ankit Test N/A Arterial Blood Gas Puncture Site A-Line Arterial Blood Carboxyhemoglobin 0.3 Arterial Blood Date Drawn 11/04/2016 11:30:57 AM Arterial Blood Methemoglobin 0.3 Arterial Blood pCO2 (Temp correct) 49.8 H Arterial Blood pH (Temp corrected) 7.534 H Arterial Blood pO2 (Temp corrected) 128.5 H Blood Gas A-a O2 Differential 26.9 H Blood Gas Actual Respiration Rate 12 Blood Gas Critical Value Read Back Y KASSANDRA HORTON Blood Gas Low PEEP Setting 5.0 Blood Gas Modality VENT - CPAP Blood Gas Notified Time 11/04/2016 11:38:36 AM Blood Gas Notified Whom JLD Blood Gas Pressure Support 10 Blood Gas Specimen Source Blood arterial Blood Gas Temperature 37.0 FiO2 30.0 Oxyhemoglobin Percent 97.7 Total Hemoglobin 10.5 L Medications Medications Current Medications Flumazenil (Romazicon) 0.2 mg Q1M PRN IV BENZODIAZEPINE OVERDOSE; Start at 05:00 Naloxone HCl (Narcan) 0.4 mg Q3M PRN IV DECREASED REPIRATORY RATE; Start at 05:00 Ondansetron HCl (Zofran Inj) 4 mg Q6H PRN IV NAUSEA AND/OR VOMITING; Start 06/08 at 05:00 Acetaminophen (Tylenol Liquid) 650 mg Q6H PRN PO PAIN LEVEL 1-3 OR FEVER; Start 10/30/16 at 05:00 Acetaminophen (Tylenol Tab) 650 mg Q6H PRN PO PAIN LEVEL 1-3 OR FEVER; Start at 05:00 Morphine Sulfate (morphine) 2 mg Q4H PRN IV PAIN LEVEL 7-10 Last administered on 11/04/16 01:51; Admin Dose 2 MG; Start 10/30/16 at 05:00 Zolpidem Tartrate (Ambien) 5 mg QHS PRN PO INSOMNIA; Start 10/30/16 at 05:00 Docusate Sodium 100 mg 100 mg Q12H PRN PO CONSTIPATION; Start 10/30/16 at 05:00 Norepinephrine/ Dextrose (Levophed/D5W) 500 ml @ 1.87 mls/hr TITRATE IV ; Start 10/30/16 at 10:00 IV Flush (NS 10 ml) 10 ml PRN PRN IV IV PROTOCOL; Start 10/30/16 at 19:00 Acetaminophen (Tylenol Supp) 650 mg Q6H PRN [place] FEVER Last administered on 08:43; Admin Dose 650 MG; Start 10/31/16 at 09:00 Miscellaneous Information 1 ea NOTE XX ; Start 10/31/16 at 12:30 Glucose (Glutose) 15 gm Q15M PRN PO DECREASED GLUCOSE; Start 10/31/16 at 12:30 Glucose (Glutose) 22.5 gm Q15M PRN PO DECREASED GLUCOSE; Start 10/31/16 at 12: 30 Dextrose (D50w Syringe) 25 ml Q15M PRN IV DECREASED GLUCOSE; Start 10/31/16 at 12:30 Dextrose (D50w Syringe) 50 ml Q15M PRN IV DECREASED GLUCOSE; Start 10/31/16 at 12:30 Glucagon (Glucagen) 1 mg Q15M PRN IM DECREASED GLUCOSE; Start 10/31/16 at 12:30 Glucose (Glutose) 15 gm Q15M PRN BUCCAL DECREASED GLUCOSE; Start 10/31/16 at 12 :30 Insulin Aspart (Novolog Insulin Pen) NOVOLOG *MODERATE* ALGORI... Q4 SC Last administered on 11/04/16 08:39; Admin Dose 2 UNIT; Start 10/31/16 at 21:00 Hydralazine HCl 10 mg 10 mg Q4H PRN IV SBP GREATER THAN 170 Last administered on 11/04/16 12:00; Admin Dose 10 MG; Start 10/31/16 at 23:00 Propofol (Diprivan) 100 ml @ 1.95 mls/hr Q12H IV ; Start 11/01/16 at 10:30 Pantoprazole 40 mg 40 mg BID@06,18 IV Last administered on 11/04/16 05:22; Admin Dose 40 MG; Start 11/01/16 at 18:00 Ceftriaxone Sodium 50 ml @ 100 mls/hr Q24H IVPB Last administered on 15:54; Admin Dose 100 MLS/HR; Start 11/02/16 at 16:30 Dextrose/Sodium Chloride (D5-1/2ns) 1,000 ml @ 40 mls/hr Q24H IV Last administered on 11/04/16 12:02; Admin Dose 40 MLS/HR; Start 11/04/16 at 12:00 KAYLA CASTREJON NP Nov 04, 2016 12:10
--- NOTE | 2016-11-04 14:18 | CONS ---
Date/Time of Note Date/Time of Note DATE: 11/04/16 TIME: 14:08 Consult Date/Type/Reason Admit Date/Time Oct 30, 2016 at 08:00 Initial Consult Date 11/03/16 Type of Consultation: Neurology Reason for Consultation persistent encephalopathy b/l strokes secondary to afib Ordering Provider: ABBY RAMOS MD Subjective extubated this morning, more awake still encephalopathic Objective Vital Signs Date Time Temp Pulse Resp B/P Pulse Ox O2 Delivery O2 Flow Rate FiO2 11/04/16 14:00 79 20 130/65 99 Nasal Cannula 11/04/16 13:00 98.0 11/04/16 11:45 30 Intake and Output 11/03/16 11/03/16 11/04/16 14:59 22:59 06:59 Intake Total 750 ml 850 ml 1000 ml Output Total 710 ml 875 ml 1225 ml Balance 40 ml -25 ml -225 ml awake and alert tracks examiner follows simple commands CN: LAURY, blinks to threat, no significant facial asymmetry, palate upgoing uvula midline scm/trap intact tongue midline poor dentition Motor: moves both arms and legs in plane of the bed spontaneously Results/Medications Result Diagram: 11/04/16 0420 11/04/16 0420 Results 24 hrs Laboratory Tests Test 11/03/16 17:07 11/03/16 21:02 11/04/16 01:45 11/04/16 04:20 Bedside Glucose 174 170 195 Alanine Aminotransferase (ALT/SGPT) 67 Albumin 2.2 L Albumin/Globulin Ratio 0.73 Alkaline Phosphatase 115 Anion Gap 11 Aspartate Amino Transf (AST/SGOT) 44 Basophils # 0.0 Basophils % 0.3 Blood Urea Nitrogen 38 #H Calcium Level 7.0 L Carbon Dioxide Level 38 H Chloride Level 87 L Cholesterol Level 123 Cholesterol/HDL Ratio 6.4 Creatinine 2.70 H Direct Bilirubin 0.00 Eosinophils # 0.4 Eosinophils % 2.9 Globulin 3.00 Glucose Level 206 HDL Cholesterol 19 L Hematocrit 30.4 L Hemoglobin 10.3 L Hemoglobin A1c 5.7 Indirect Bilirubin 0.4 LDL Cholesterol, Calculated 75 Lymphocytes # 1.4 Lymphocytes % 10.0 L Mean Corpuscular Hemoglobin 29.2 Mean Corpuscular Hemoglobin Concent 33.9 Mean Corpuscular Volume 86.1 Mean Platelet Volume 11.8 H Monocytes # 1.1 H Monocytes % 7.6 Neutrophils # 11.2 H Neutrophils % 78.2 H Nucleated Red Blood Cells # 0.0 Nucleated Red Blood Cells % 0.0 Platelet Count 104 #L Potassium Level 3.3 L Red Blood Count 3.53 L Red Cell Distribution Width 14.2 Sodium Level 133 L Total Bilirubin 0.4 Total Protein 5.2 L Triglycerides Level 147 White Blood Count 14.3 #H Test 11/04/16 04:41 11/04/16 08:35 11/04/16 11:30 11/04/16 13:35 Bedside Glucose 182 176 191 Arterial Blood HCO3 41.1 *H Arterial Blood Base Excess 16.5 H Arterial Blood Oxygen Saturation 98.3 H Ankit Test N/A Arterial Blood Gas Puncture Site A-Line Arterial Blood Carboxyhemoglobin 0.3 Arterial Blood Date Drawn 11/04/2016 11:30:57 AM Arterial Blood Methemoglobin 0.3 Arterial Blood pCO2 (Temp correct) 49.8 H Arterial Blood pH (Temp corrected) 7.534 H Arterial Blood pO2 (Temp corrected) 128.5 H Blood Gas A-a O2 Differential 26.9 H Blood Gas Actual Respiration Rate 12 Blood Gas Critical Value Read Back Robbi CANNON RN Blood Gas Low PEEP Setting 5.0 Blood Gas Modality VENT - CPAP Blood Gas Notified Time 11/04/2016 11:38:36 AM Blood Gas Notified Whom JLD Blood Gas Pressure Support 10 Blood Gas Specimen Source Blood arterial Blood Gas Temperature 37.0 FiO2 30.0 Oxyhemoglobin Percent 97.7 Total Hemoglobin 10.5 L Medications Current Medications Flumazenil (Romazicon) 0.2 mg Q1M PRN IV BENZODIAZEPINE OVERDOSE; Start at 05:00 Naloxone HCl (Narcan) 0.4 mg Q3M PRN IV DECREASED REPIRATORY RATE; Start at 05:00 Ondansetron HCl (Zofran Inj) 4 mg Q6H PRN IV NAUSEA AND/OR VOMITING; Start 06/08 at 05:00 Acetaminophen (Tylenol Liquid) 650 mg Q6H PRN PO PAIN LEVEL 1-3 OR FEVER; Start 10/30/16 at 05:00 Acetaminophen (Tylenol Tab) 650 mg Q6H PRN PO PAIN LEVEL 1-3 OR FEVER; Start at 05:00 Morphine Sulfate (morphine) 2 mg Q4H PRN IV PAIN LEVEL 7-10 Last administered on 11/04/16 01:51; Admin Dose 2 MG; Start 10/30/16 at 05:00 Zolpidem Tartrate (Ambien) 5 mg QHS PRN PO INSOMNIA; Start 10/30/16 at 05:00 Docusate Sodium 100 mg 100 mg Q12H PRN PO CONSTIPATION; Start 10/30/16 at 05:00 Norepinephrine/ Dextrose (Levophed/D5W) 500 ml @ 1.87 mls/hr TITRATE IV ; Start 10/30/16 at 10:00 IV Flush (NS 10 ml) 10 ml PRN PRN IV IV PROTOCOL; Start 10/30/16 at 19:00 Acetaminophen (Tylenol Supp) 650 mg Q6H PRN [place] FEVER Last administered on 08:43; Admin Dose 650 MG; Start 10/31/16 at 09:00 Miscellaneous Information 1 ea NOTE XX ; Start 10/31/16 at 12:30 Glucose (Glutose) 15 gm Q15M PRN PO DECREASED GLUCOSE; Start 10/31/16 at 12:30 Glucose (Glutose) 22.5 gm Q15M PRN PO DECREASED GLUCOSE; Start 10/31/16 at 12: 30 Dextrose (D50w Syringe) 25 ml Q15M PRN IV DECREASED GLUCOSE; Start 10/31/16 at 12:30 Dextrose (D50w Syringe) 50 ml Q15M PRN IV DECREASED GLUCOSE; Start 10/31/16 at 12:30 Glucagon (Glucagen) 1 mg Q15M PRN IM DECREASED GLUCOSE; Start 10/31/16 at 12:30 Glucose (Glutose) 15 gm Q15M PRN BUCCAL DECREASED GLUCOSE; Start 10/31/16 at 12 :30 Insulin Aspart (Novolog Insulin Pen) NOVOLOG *MODERATE* ALGORI... Q4 SC Last administered on 11/04/16 13:37; Admin Dose 4 UNIT; Start 10/31/16 at 21:00 Hydralazine HCl 10 mg 10 mg Q4H PRN IV SBP GREATER THAN 170 Last administered on 11/04/16 12:00; Admin Dose 10 MG; Start 10/31/16 at 23:00 Propofol (Diprivan) 100 ml @ 1.95 mls/hr Q12H IV ; Start 11/01/16 at 10:30 Pantoprazole 40 mg 40 mg BID@06,18 IV Last administered on 11/04/16 05:22; Admin Dose 40 MG; Start 11/01/16 at 18:00 Ceftriaxone Sodium 50 ml @ 100 mls/hr Q24H IVPB Last administered on 15:54; Admin Dose 100 MLS/HR; Start 11/02/16 at 16:30 Dextrose/Sodium Chloride (D5-1/2ns) 1,000 ml @ 40 mls/hr Q24H IV Last administered on 11/04/16 12:02; Admin Dose 40 MLS/HR; Start 11/04/16 at 12:00 Clonidine HCl 1 patch 1 patch Q7D TRANSDERM ; Start 11/04/16 at 14:00; Status UNV Amiodarone HCl 100 ml @ 600 mls/hr ONCE ONCE IV ; Start 11/04/16 at 14:00; Stop 11/04/16 at 14:09; Status UNV Amiodarone HCl/ Dextrose (Cordarone Iv/ D5W) 500 ml @ 0 mls/hr Q0M IV ; Start at 14:00; Stop 11/05/16 at 13:59; Status UNV Assessment/Plan Chief Complaint/Hosp Course 71 year old male with history of HTN, HLD, CKD p/w massive GI bleed no clear source of bleeding, required intubation for respiratory failure currently being managed in the ICU, MRI shows bilateral embolic appearing punctate infarcts with newly diagnosed afib. Encephalopathy likely in the setting of multiple bilateral cortical strokes secondary to cardioembolism as well as metabolic abnormalities. Routine EEG consistent with encephalopathy, no epileptiform activity. Recommendations: -newly diagnosed afib, appreciate cardiology consultation -FLP pending, HBA1C: 5.7% pre-diabetes, to optimize secondary risk factors for stroke -continue to maintain normotension avoid blood pressure less than 120 -ECHO with bubble study pending -will eventually require anticoagulation for secondary prevention of stroke when cleared by GI in the future, if unable to receive anticoagulation he may benefit from cardiac procedures for left atrial appendage closure in the future such as LARIAT, Watchman -DVT ppx with SCD -expect encephalopathy to improve over the next several days Problems: OVIDIO CRUZ MD Nov 04, 2016 14:18
[2016-11-04] MEDS ORDERED: AMIODARONE 150MG/D5W BOLUS 100 ML IV ONE (14:30)
--- NOTE | 2016-11-04 14:40 | CONS ---
Date/Time of Note Date/Time of Note DATE: 11/04/16 TIME: 14:37 Assessment/Plan Assessment/Plan Additional Assessment/Plan Assessment recommendations; 1. Patient admitted for anemia but then developed respiratory failure source could not be ascertained despite having undergone EGD and colonoscopy. Patient however maintaining stable hematocrit. 2. Status post successful extubated short while ago patient exhibiting excellent overall clinical status. 3. History of renal insufficiency. With stable serum creatinine. 4. Improving leukocytosis. Continue current treatment. Consultation Date/Type/Reason Admit Date/Time Oct 30, 2016 at 08:00 Initial Consult Date 10/30/16 Type of Consultation: Pulmonary/critical care Referring Provider: ABBY RAMOS MD 24 HR Interval Summary Free Text/Dictation Patient condition is markedly improved. He was extubated a short while ago and is exhibiting excellent clinical status overall. General exam; elderly male, awake and alert. Currently in no distress. Exam/Review of Systems Vital Signs Vitals Vital Signs Date Time Temp Pulse Resp B/P Pulse Ox O2 Delivery O2 Flow Rate FiO2 11/04/16 14:00 79 20 130/65 99 Nasal Cannula 11/04/16 13:00 98.0 11/04/16 11:45 30 Intake and Output 11/03/16 11/03/16 11/04/16 15:00 23:00 07:00 Intake Total 750 ml 850 ml 1000 ml Output Total 710 ml 875 ml 1125 ml Balance 40 ml -25 ml -125 ml Exam HEENT exam is; supple neck, no JVD. No lymphadenopathy. Midline trachea. No thyromegaly. No neck masses. It was a small bilaterally. Patient has fair dentition. Neck Chest examination; clear to auscultate bilaterally. S1-S2 audible, no murmurs. Regular rhythm. Abdomen examination; soft, nondistended. No organomegaly. Bowel sounds audible. Extremity examination; no peripheral edema. Pulses 1+ bilaterally. REMITTANCE CLERK examination; no focal deficit. Results Result Diagram: 11/04/1641911/04/16419 Results 24 hrs Laboratory Tests Test 11/03/16 17:07 11/03/16 21:02 11/04/16 01:45 11/04/16 04:20 Bedside Glucose 174 170 195 Alanine Aminotransferase (ALT/SGPT) 67 Albumin 2.2 L Albumin/Globulin Ratio 0.73 Alkaline Phosphatase 115 Anion Gap 11 Aspartate Amino Transf (AST/SGOT) 44 Basophils # 0.0 Basophils % 0.3 Blood Urea Nitrogen 38 #H Calcium Level 7.0 L Carbon Dioxide Level 38 H Chloride Level 87 L Cholesterol Level 123 Cholesterol/HDL Ratio 6.4 Creatinine 2.70 H Direct Bilirubin 0.00 Eosinophils # 0.4 Eosinophils % 2.9 Globulin 3.00 Glucose Level 206 HDL Cholesterol 19 L Hematocrit 30.4 L Hemoglobin 10.3 L Hemoglobin A1c 5.7 Indirect Bilirubin 0.4 LDL Cholesterol, Calculated 75 Lymphocytes # 1.4 Lymphocytes % 10.0 L Mean Corpuscular Hemoglobin 29.2 Mean Corpuscular Hemoglobin Concent 33.9 Mean Corpuscular Volume 86.1 Mean Platelet Volume 11.8 H Monocytes # 1.1 H Monocytes % 7.6 Neutrophils # 11.2 H Neutrophils % 78.2 H Nucleated Red Blood Cells # 0.0 Nucleated Red Blood Cells % 0.0 Platelet Count 104 #L Potassium Level 3.3 L Red Blood Count 3.53 L Red Cell Distribution Width 14.2 Sodium Level 133 L Total Bilirubin 0.4 Total Protein 5.2 L Triglycerides Level 147 White Blood Count 14.3 #H Test 11/04/16 04:41 11/04/16 08:35 11/04/16 11:30 11/04/16 13:35 Bedside Glucose 182 176 191 Arterial Blood HCO3 41.1 *H Arterial Blood Base Excess 16.5 H Arterial Blood Oxygen Saturation 98.3 H Ankit Test N/A Arterial Blood Gas Puncture Site A-Line Arterial Blood Carboxyhemoglobin 0.3 Arterial Blood Date Drawn 11/04/2016 11:30:57 AM Arterial Blood Methemoglobin 0.3 Arterial Blood pCO2 (Temp correct) 49.8 H Arterial Blood pH (Temp corrected) 7.534 H Arterial Blood pO2 (Temp corrected) 128.5 H Blood Gas A-a O2 Differential 26.9 H Blood Gas Actual Respiration Rate 12 Blood Gas Critical Value Read Back Y KASSANDRA RN Blood Gas Low PEEP Setting 5.0 Blood Gas Modality VENT - CPAP Blood Gas Notified Time 11/04/2016 11:38:36 AM Blood Gas Notified Whom JLD Blood Gas Pressure Support 10 Blood Gas Specimen Source Blood arterial Blood Gas Temperature 37.0 FiO2 30.0 Oxyhemoglobin Percent 97.7 Total Hemoglobin 10.5 L Medications Medications Current Medications Flumazenil (Romazicon) 0.2 mg Q1M PRN IV BENZODIAZEPINE OVERDOSE; Start at 05:00 Naloxone HCl (Narcan) 0.4 mg Q3M PRN IV DECREASED REPIRATORY RATE; Start at 05:00 Ondansetron HCl (Zofran Inj) 4 mg Q6H PRN IV NAUSEA AND/OR VOMITING; Start 06/08 at 05:00 Acetaminophen (Tylenol Liquid) 650 mg Q6H PRN PO PAIN LEVEL 1-3 OR FEVER; Start 10/30/16 at 05:00 Acetaminophen (Tylenol Tab) 650 mg Q6H PRN PO PAIN LEVEL 1-3 OR FEVER; Start at 05:00 Morphine Sulfate (morphine) 2 mg Q4H PRN IV PAIN LEVEL 7-10 Last administered on 11/04/16 01:51; Admin Dose 2 MG; Start 10/30/16 at 05:00 Zolpidem Tartrate (Ambien) 5 mg QHS PRN PO INSOMNIA; Start 10/30/16 at 05:00 Docusate Sodium 100 mg 100 mg Q12H PRN PO CONSTIPATION; Start 10/30/16 at 05:00 Norepinephrine/ Dextrose (Levophed/D5W) 500 ml @ 1.87 mls/hr TITRATE IV ; Start 10/30/16 at 10:00 IV Flush (NS 10 ml) 10 ml PRN PRN IV IV PROTOCOL; Start 10/30/16 at 19:00 Acetaminophen (Tylenol Supp) 650 mg Q6H PRN [place] FEVER Last administered on 08:43; Admin Dose 650 MG; Start 10/31/16 at 09:00 Miscellaneous Information 1 ea NOTE XX ; Start 10/31/16 at 12:30 Glucose (Glutose) 15 gm Q15M PRN PO DECREASED GLUCOSE; Start 10/31/16 at 12:30 Glucose (Glutose) 22.5 gm Q15M PRN PO DECREASED GLUCOSE; Start 10/31/16 at 12: 30 Dextrose (D50w Syringe) 25 ml Q15M PRN IV DECREASED GLUCOSE; Start 10/31/16 at 12:30 Dextrose (D50w Syringe) 50 ml Q15M PRN IV DECREASED GLUCOSE; Start 10/31/16 at 12:30 Glucagon (Glucagen) 1 mg Q15M PRN IM DECREASED GLUCOSE; Start 10/31/16 at 12:30 Glucose (Glutose) 15 gm Q15M PRN BUCCAL DECREASED GLUCOSE; Start 10/31/16 at 12 :30 Insulin Aspart (Novolog Insulin Pen) NOVOLOG *MODERATE* ALGORI... Q4 SC Last administered on 11/04/16 13:37; Admin Dose 4 UNIT; Start 10/31/16 at 21:00 Hydralazine HCl 10 mg 10 mg Q4H PRN IV SBP GREATER THAN 170 Last administered on 11/04/16 12:00; Admin Dose 10 MG; Start 10/31/16 at 23:00 Propofol (Diprivan) 100 ml @ 1.95 mls/hr Q12H IV ; Start 11/01/16 at 10:30 Pantoprazole 40 mg 40 mg BID@06,18 IV Last administered on 11/04/16 05:22; Admin Dose 40 MG; Start 11/01/16 at 18:00 Ceftriaxone Sodium 50 ml @ 100 mls/hr Q24H IVPB Last administered on 15:54; Admin Dose 100 MLS/HR; Start 11/02/16 at 16:30 Dextrose/Sodium Chloride (D5-1/2ns) 1,000 ml @ 40 mls/hr Q24H IV Last administered on 11/04/16 12:02; Admin Dose 40 MLS/HR; Start 11/04/16 at 12:00 Clonidine HCl 1 patch 1 patch Q7D TRANSDERM ; Start 11/04/16 at 15:00 Amiodarone HCl 100 ml @ 600 mls/hr ONCE ONCE IV Last administered on 14:28; Admin Dose 600 MLS/HR; Start 11/04/16 at 14:30; Stop 11/04/16 at 14: 39 Amiodarone HCl/ Dextrose (Cordarone Iv/ D5W) 500 ml @ 0 mls/hr Q0M IV ; Start at 14:45; Stop 11/05/16 at 14:44 SUJIT MAXWELL Nov 04, 2016 14:40
[2016-11-04] MEDS ORDERED: AMIODARONE 900 MG in DEXTROSE 5% 482 ML IV SCH (14:45)
--- NOTE | 2016-11-04 14:53 | CONS ---
DATE OF ADMISSION: 10/30/2016 DATE OF CONSULTATION: 11/04/2016 TYPE OF CONSULTATION: Cardiology REASON FOR CONSULTATION: Paroxysmal atrial fibrillation with rapid ventricular response, abnormal e lectrocardiogram, assess for acute coronary syndrome. REQUESTING PHYSICIAN: Rock Ramos MD HISTORY OF PRESENT ILLNESS: Mr. Duran is a 71-year-old male with a history of hypertension, dys lipidemia, chronic kidney disease, who had initially presented with large bloody bowel movement and associated nausea and vomiting. The patient upon arrival was seen by the gastrointestinal service a nd was taken to endoscopy where he was found to have massive hematochezia with the bleeding source l mitchell seen in the second portion of the duodenum to the ileum. The patient was subsequently additio monroe consulted by surgery, Dr. Arshad, but as bleeding dissipated did not have to take the patient to surgery. The patient extensively consulted by neurology services due to encephalopathy and under went an MRI. This revealed scattered infarcts in the bilateral cerebral, cerebellar hemispheres sug gestive of underlying embolic etiology. The patient during this time has been admitted to the ICU w here he has been continuously monitored on telemetry and has been revealed to have some recurrent olya uts of atrial fibrillation with a pause of approximately 2.4 seconds. The patient at this time arslan ins in the ICU, confused, hypertensive and with paroxysmal atrial fibrillation, currently in sinus r hythm. PAST MEDICAL HISTORY: As above in HPI. MEDICATIONS CURRENTLY IN HOSPITAL: 1. Ceftriaxone. 2. Protonix 40 mg IV b.i.d. 3. Hydralazine. 4. Albuterol. 5. Atrovent. 6. Zofran p.r.n. 7. Tylenol p.r.n. 8. Morphine p.r.n. ALLERGIES: NO KNOWN DRUG ALLERGIES. SOCIAL HISTORY: No tobacco, ETOH or illicit drug use. FAMILY HISTORY: No history of sudden cardiac or early CAD. REVIEW OF SYSTEMS: As above in HPI. CONSTITUTIONAL: No fevers, chills. PULMONARY: No current signs of respiratory compromise. GASTROINTESTINAL: GI bleed. GENITOURINARY: Renal failure. PSYCHIATRIC: No documented psychiatric history. NEUROLOGIC: Altered mental state, encephalopathy, CVA. ENDOCRINE: No documented history of thyroid disease or diabetes mellitus. PHYSICAL EXAMINATION: VITAL SIGNS: Temperature 97.4, blood pressure most recently 160/57, pulse 82, respiratory rate 15, saturating 100%, FIO2 of 30%. GENERAL: The patient is awake, alert, confused. NECK: JVP approximately 9 cm water. CHEST: Upper airway transmitted rhonchorous sounds. HEART: Regular rate and rhythm. Normal S1, S2, I/ systolic murmur, nondisplaced PMI. ABDOMEN: Positive bowel sounds, soft. EXTREMITIES: No pitting edema, 1+ pulses bilaterally, posterior tibial. LABORATORY DATA: As above in HPI, with most recently from today, sodium 133, potassium 3.3, creatin ine 2.7, BUN 38. Troponin negative x1. White blood cell count 14.3, hemoglobin 10.3, platelet coun t of 104. UA borderline. ABG revealing a pH of 7.53, PaO2 of 128, pCO2 of 49. IMAGING STUDIES: Chest x-ray from 11/03/2016, revealing mild atelectasis at lung bases, atheroscler osis. ECG: Dated 10/30/2016 revealed sinus rhythm, first-degree AV block, normal axis, right bundle branc h block, secondary repolarization abnormalities. IMPRESSION: 1. Paroxysmal atrial fibrillation. 2. Hypertension. 3. Abnormal electrocardiogram, assess for acute coronary syndrome. 4. Right bundle branch block pattern. 5. Cerebrovascular accident, question etiology, likely related to paroxysmal atrial fibrillation. 6. Encephalopathy. 7. Gastrointestinal bleed with ongoing GI evaluation. 8. Possible urinary tract infection. 9. Renal failure. 10. Hyponatremia. 11. Coagulopathy, mild. 12. Anemia. 13. Leukocytosis. RECOMMENDATIONS: 1. At this time, would maintain the patient on telemetry monitoring to follow rhythm and rate contr ol closely. 2. Would initiate the patient on clonidine patch at this time to improve overall systolic blood pre ssure control and we will hold on any systemic anticoagulation at this time given patient's GI bleed and thrombocytopenia. 3. We will initiate patient on amiodarone bolus continuous infusion in an attempt to maintain sinus rhythm as patient at this time is a poor anticoagulation candidate. 4. We will perform a bubble study on the patient to further identify any other possible etiologies for the patient's CVA other than atrial fibrillation. 5. Ongoing neurologic evaluation and continue patient's antibiotics and follow up all culture data. Thank you for allowing me to take part in the care of this patient. I will continue to follow him mark melendez closely with you with further recommendations to be made as the patient progresses through his [facility] clinical course. Dictated By: LESLI MADDOX/INOCENCIO Conf#: [id number] DID#: [id number] CC: ROCK RAMOS MD;*EndCC*
[2016-11-04] MEDS ORDERED: CLONIDINE 0.1 MG/24 HR PATCH TRANSDERM SCH (15:00)
[2016-11-04] MEDS: CEFTRIAXONE 1 GM/50 ML (PMX) 50 ML IVPB SCH (16:07)
--- NOTE | 2016-11-04 19:34 | RADRPT ---
Echocardiogram Report Patient Name: ANALI THORPE Gender: Male Date: 1945 Study Date: 04-Nov-2016 Medicare Compliance Auditor: Katrina Ernst [facility] Location: 106 Ref. Physician: LESLI MCGRATH Quality: Good Procedures: Transthoracic echocardiogram with complete 2D, M-Mode, and doppler examination. Indications: Cerebrovascular Accident. 2D/M Mode Doppler Measurement Value Normal Ranges Measurement Value Normal Ranges LVIDd 2D 5.1 3.5 - 5.6 cm AV Peak Tucker 1.9 m/sec LVIDs 2D 2.6 2.1 - 4.1 cm AV Peak PG 15.0 mmHg FS 2D 48.4 % LVOT Peak Tucker 1.1 m/sec LVPWd 2D 0.8 0.6 - 1.1 cm LVOT Peak PG 5.0 mmHg IVSd 2D 0.9 0.6 - 1.1 cm MV E Peak Tucker 0.7 m/sec IVS/LVPW 2D 1.1 MV A Peak Tucker 0.8 m/sec AoR Diam 2D 2.6 2.0 - 3.7 cm MV E/A 0.8 LA/Ao 2D 1 0 - 1 MV Decel Time 194 msec EDV 2D 133.0 cm3 MV E/A 0.8 ESV 2D 18.2 cm3 TR Peak Tucker 2.4 m/sec LA Dimen 2D 3.8 2.3 - 4.0 cm TR Peak PG 23.0 mmHg RVSP 26.0 mmHg Findings Left Ventricle: Normal left ventricular systolic function. Normal left ventricular cavity size. Normal left ventricular wall thickness. Ejection fraction is visually estimated at 60 %. Tissue Doppler/Mitral Doppler indices are consistent with impaired relaxation (Stage I diastolic dysfunction). Right Ventricle: Normal right ventricular size. Normal right ventricular systolic function. Left Atrium: The left atrium is normal in size. Right Atrium: The right atrium is normal in size. Atrial Septum: Bubble study was performed with and with out valsalva indicating no evidence of intra atrial shunt. Mitral Valve: Normal appearance and function of the mitral valve with trace physiologic regurgitation. Aortic Valve: No significant aortic stenosis or insufficiency. Aortic cusps appear mildly calcified. Tricuspid Valve: Normal appearance of the tricuspid valve. Estimated peak PA systolic pressure 30 mmHg. There is trace tricuspid regurgitation. Pulmonic Valve: Normal pulmonic valve appearance. Pericardium: Normal pericardium with no significant pericardial effusion. Aorta: Normal aortic root. IVC: Normal size and no respiratory collapse consistent with elevated right atrial pressure. Conclusions 1.Normal left ventricular systolic function. Normal left ventricular cavity size. Normal left ventricular wall thickness. Ejection fraction is visually estimated at 60-65 %. Tissue Doppler/Mitral Doppler indices are consistent with impaired relaxation (Stage I diastolic dysfunction). 2.Bubble study was performed with and with out valsalva indicating no definite evidence of intra atrial shunt with somewhat limited visualization. 3.Normal appearance and function of the mitral valve with trace physiologic regurgitation. 4.Estimated peak PA systolic pressure 30 mmHg. 5.There is trace tricuspid regurgitation. Electronically Signed By: Lesli Mcgrath 04-Nov-2016 19:34:05 -0700 Patient Name: ANALI THORPE Study Date: 04-Nov-2016 [id number]
--- NOTE | 2016-11-04 20:18 | PN ---
Date/Time of Note Date/Time of Note DATE: 11/04/16 TIME: 20:17 Assessment/Plan VTE Prophylaxis VTE Prophylaxis Intervention: other Lines/Catheters IV Catheter Type (from Nrs): A Line Urinary Cath still in place: Yes Reason Cath still needed: other (indicate) Assessment/Plan Chief Complaint/Hosp Course IMPRESSION: 1. Patient has massive gastrointestinal bleed.better 2. Hyperkalemia.BETTER 3. Metabolic acidosis and acute kidney injury. 4. cva 5. Hypoalbuminemia. 6 thrombocytopenia PER GI AND SURGERY antibiotic id cardio kcl Problems: Subjective 24 Hr Interval Summary Subjective hx not possible: other (on vent) Exam/Review of Systems Vital Signs Vitals Vital Signs Date Time Temp Pulse Resp B/P Pulse Ox O2 Delivery O2 Flow Rate FiO2 11/04/16 19:00 68 14 161/56 100 Nasal Cannula 11/04/16 18:00 2.0 11/04/16 15:00 98.2 11/04/16 11:45 30 Intake and Output 11/03/16 11/03/16 11/04/16 15:00 23:00 07:00 Intake Total 750 ml 850 ml 1000 ml Output Total 710 ml 875 ml 1125 ml Balance 40 ml -25 ml -125 ml Exam Respiratory: diminished breath sounds Cardiovascular: regular rate and rhythm Gastrointestinal: bowel sounds (+), soft Results Result Diagram: 11/04/1641911/04/16419 Results 24 hrs Laboratory Tests Test 11/03/16 21:02 11/04/16 01:45 11/04/16 04:20 11/04/16 04:41 Bedside Glucose 170 195 182 Alanine Aminotransferase (ALT/SGPT) 67 Albumin 2.2 L Albumin/Globulin Ratio 0.73 Alkaline Phosphatase 115 Anion Gap 11 Aspartate Amino Transf (AST/SGOT) 44 Basophils # 0.0 Basophils % 0.3 Blood Urea Nitrogen 38 #H Calcium Level 7.0 L Carbon Dioxide Level 38 H Chloride Level 87 L Cholesterol Level 123 Cholesterol/HDL Ratio 6.4 Creatinine 2.70 H Direct Bilirubin 0.00 Eosinophils # 0.4 Eosinophils % 2.9 Globulin 3.00 Glucose Level 206 HDL Cholesterol 19 L Hematocrit 30.4 L Hemoglobin 10.3 L Hemoglobin A1c 5.7 Indirect Bilirubin 0.4 LDL Cholesterol, Calculated 75 Lymphocytes # 1.4 Lymphocytes % 10.0 L Mean Corpuscular Hemoglobin 29.2 Mean Corpuscular Hemoglobin Concent 33.9 Mean Corpuscular Volume 86.1 Mean Platelet Volume 11.8 H Monocytes # 1.1 H Monocytes % 7.6 Neutrophils # 11.2 H Neutrophils % 78.2 H Nucleated Red Blood Cells # 0.0 Nucleated Red Blood Cells % 0.0 Platelet Count 104 #L Potassium Level 3.3 L Red Blood Count 3.53 L Red Cell Distribution Width 14.2 Sodium Level 133 L Thyroid Stimulating Hormone (TSH) 0.237 L Total Bilirubin 0.4 Total Protein 5.2 L Triglycerides Level 147 White Blood Count 14.3 #H Test 11/04/16 08:35 11/04/16 11:30 11/04/16 13:35 11/04/16 16:54 Bedside Glucose 176 191 150 Arterial Blood HCO3 41.1 *H Arterial Blood Base Excess 16.5 H Arterial Blood Oxygen Saturation 98.3 H Ankit Test N/A Arterial Blood Gas Puncture Site A-Line Arterial Blood Carboxyhemoglobin 0.3 Arterial Blood Date Drawn 11/04/2016 11:30:57 AM Arterial Blood Methemoglobin 0.3 Arterial Blood pCO2 (Temp correct) 49.8 H Arterial Blood pH (Temp corrected) 7.534 H Arterial Blood pO2 (Temp corrected) 128.5 H Blood Gas A-a O2 Differential 26.9 H Blood Gas Actual Respiration Rate 12 Blood Gas Critical Value Read Back Robbi CANNON RN Blood Gas Low PEEP Setting 5.0 Blood Gas Modality VENT - CPAP Blood Gas Notified Time 11/04/2016 11:38:36 AM Blood Gas Notified Whom JLD Blood Gas Pressure Support 10 Blood Gas Specimen Source Blood arterial Blood Gas Temperature 37.0 FiO2 30.0 Oxyhemoglobin Percent 97.7 Total Hemoglobin 10.5 L Test 11/04/16 18:00 Troponin I 0.150 *H Medications Medications Current Medications Flumazenil (Romazicon) 0.2 mg Q1M PRN IV BENZODIAZEPINE OVERDOSE; Start at 05:00 Naloxone HCl (Narcan) 0.4 mg Q3M PRN IV DECREASED REPIRATORY RATE; Start at 05:00 Ondansetron HCl (Zofran Inj) 4 mg Q6H PRN IV NAUSEA AND/OR VOMITING; Start 06/08 at 05:00 Acetaminophen (Tylenol Liquid) 650 mg Q6H PRN PO PAIN LEVEL 1-3 OR FEVER; Start 10/30/16 at 05:00 Acetaminophen (Tylenol Tab) 650 mg Q6H PRN PO PAIN LEVEL 1-3 OR FEVER; Start at 05:00 Morphine Sulfate (morphine) 2 mg Q4H PRN IV PAIN LEVEL 7-10 Last administered on 11/04/16 01:51; Admin Dose 2 MG; Start 10/30/16 at 05:00 Zolpidem Tartrate (Ambien) 5 mg QHS PRN PO INSOMNIA; Start 10/30/16 at 05:00 Docusate Sodium 100 mg 100 mg Q12H PRN PO CONSTIPATION; Start 10/30/16 at 05:00 Norepinephrine/ Dextrose (Levophed/D5W) 500 ml @ 1.87 mls/hr TITRATE IV ; Start 10/30/16 at 10:00 IV Flush (NS 10 ml) 10 ml PRN PRN IV IV PROTOCOL; Start 10/30/16 at 19:00 Acetaminophen (Tylenol Supp) 650 mg Q6H PRN [place] FEVER Last administered on 08:43; Admin Dose 650 MG; Start 10/31/16 at 09:00 Miscellaneous Information 1 ea NOTE XX ; Start 10/31/16 at 12:30 Glucose (Glutose) 15 gm Q15M PRN PO DECREASED GLUCOSE; Start 10/31/16 at 12:30 Glucose (Glutose) 22.5 gm Q15M PRN PO DECREASED GLUCOSE; Start 10/31/16 at 12: 30 Dextrose (D50w Syringe) 25 ml Q15M PRN IV DECREASED GLUCOSE; Start 10/31/16 at 12:30 Dextrose (D50w Syringe) 50 ml Q15M PRN IV DECREASED GLUCOSE; Start 10/31/16 at 12:30 Glucagon (Glucagen) 1 mg Q15M PRN IM DECREASED GLUCOSE; Start 10/31/16 at 12:30 Glucose (Glutose) 15 gm Q15M PRN BUCCAL DECREASED GLUCOSE; Start 10/31/16 at 12 :30 Insulin Aspart (Novolog Insulin Pen) NOVOLOG *MODERATE* ALGORI... Q4 SC Last administered on 11/04/16 16:56; Admin Dose 2 UNIT; Start 10/31/16 at 21:00 Hydralazine HCl 10 mg 10 mg Q4H PRN IV SBP GREATER THAN 170 Last administered on 11/04/16 12:00; Admin Dose 10 MG; Start 10/31/16 at 23:00 Propofol (Diprivan) 100 ml @ 1.95 mls/hr Q12H IV ; Start 11/01/16 at 10:30 Pantoprazole 40 mg 40 mg BID@06,18 IV Last administered on 11/04/16 17:24; Admin Dose 40 MG; Start 11/01/16 at 18:00 Ceftriaxone Sodium 50 ml @ 100 mls/hr Q24H IVPB Last administered on 16:07; Admin Dose 100 MLS/HR; Start 11/02/16 at 16:30 Dextrose/Sodium Chloride (D5-1/2ns) 1,000 ml @ 40 mls/hr Q24H IV Last administered on 11/04/16 12:02; Admin Dose 40 MLS/HR; Start 11/04/16 at 12:00 Clonidine HCl 1 patch 1 patch Q7D TRANSDERM Last administered on 11/04/16 14: 42; Admin Dose 1 PATCH; Start 11/04/16 at 15:00 Amiodarone HCl/ Dextrose (Cordarone Iv/ D5W) 500 ml @ 0 mls/hr Q0M IV Last administered on 11/04/16 14:42; Admin Dose 33.4 MLS/HR; Start 11/04/16 at 14:45 ; Stop 11/05/16 at 14:44 ABBY RAMOS MD Nov 04, 2016 20:18
[2016-11-04] MEDS ORDERED: POTASSIUM CHLORIDE (SR) 10 MEQ TAB PO ONE (20:30)
[2016-11-05] VITALS (78 sets, daily range): BP systolic 116–186; BP diastolic 47–133; PULSE 55–84; RESP 5–25
[2016-11-05] MEDS: INSULIN ASPART [NOVOLOG] 3 ML PEN SC SCH ×6 (00:36→20:19)
[2016-11-05] MEDS: PANTOPRAZOLE 40 MG INJ IV SCH ×2 (05:26→18:33)
[2016-11-05 06:14] LABS: ADD SCAN DIFF NO
[2016-11-05] MEDS: hydrALAzine 20 MG INJ IV PRN ×3 (06:26→15:52)
[2016-11-05 06:35] LABS: CALCIUM 7.2 mg/dl (8.4-10.2); CREATININE 2.14 mg/dl (0.61-1.24); MAGNESIUM 1.6 mg/dl (1.7-2.5)
[2016-11-05 06:41] LABS: BASOPHILS % 0.3 % (0.0-2.0); EOSINOPHILS % 9.4 % (0.0-7.0); HEMATOCRIT 29.7 % (42.0-52.0); HEMOGLOBIN 9.9 g/dl (14.0-18.0); LYMPHOCYTES # 1.1 10^3/ul (0.8-2.9); LYMPHOCYTES % 10.7 % (15.0-51.0); MEAN CORPUSCULAR HEMOGLOBIN 29.5 pg (29.0-33.0); MEAN CORPUSCULAR HGB CONC 33.3 g/dl (32.0-37.0); MEAN CORPUSCULAR VOLUME 88.4 fl (82.0-101.0); MONOCYTES % 9.8 % (0.0-11.0); NEUTROPHIL # 7.2 10^3/ul (1.6-7.5); NEUTROPHILS % 68.9 % (39.0-77.0); PLATELET COUNT 141 10^3/UL (140-415); RED BLOOD COUNT 3.36 10^6/ul (4.70-6.10); RED CELL DISTRIBUTION WIDTH 14.1 % (11.5-14.5); WHITE BLOOD COUNT 10.4 10^3/ul (4.8-10.8)
[2016-11-05 08:13] LABS: CHOL/HDL RATIO 7.3 RATIO
--- NOTE | 2016-11-05 08:43 | CONS ---
Date/Time of Note Date/Time of Note DATE: 11/05/16 TIME: 08:40 Assessment/Plan Assessment/Plan Additional Assessment/Plan Assessment recommendations; 1. Patient admitted for anemia with stable hematocrit status post blood transfusion. Patient underwent EGD as well as colonoscopy both were negative studies. 2. Status post respiratory failure. 3. History of renal insufficiency. 4. Leukocytosis of uncertain etiology, with a significant downward trend. Patient been afebrile. 5. Development of paroxysmal atrial fibrillation, currently on amiodarone drip. Continue current treatment. Patient will be switched over to enteral amiodarone. After that she can be transferred to telemetry unit. We are going to sign off. Thanks for the referral. Please reconsult if needed. Consultation Date/Type/Reason Admit Date/Time Oct 30, 2016 at 08:00 Initial Consult Date 10/30/16 Type of Consultation: Pulmonary/critical care Referring Provider: ABBY RAMOS MD 24 HR Interval Summary Free Text/Dictation Patient condition remains stable. Denies any shortness of breath, chest pain,. Patient is awake and alert. Patient however developed atrial fibrillation overnight and is now currently on amiodarone drip with conversion to sinus rhythm. General exam; elderly male, currently in no distress. Exam/Review of Systems Vital Signs Vitals Vital Signs Date Time Temp Pulse Resp B/P Pulse Ox O2 Delivery O2 Flow Rate FiO2 11/05/16 08:15 71 17 148/58 100 11/05/16 08:00 97.8 Nasal Cannula 11/05/16 00:55 2.0 11/04/16 11:45 30 Intake and Output 11/04/16 11/04/16 11/05/16 15:00 23:00 07:00 Intake Total 753.4 ml 303.6 ml 450 ml Output Total 880 ml 1240 ml 550 ml Balance -126.6 ml -936.4 ml -100 ml Exam H EENT exam is; supple neck, no JVD. No lymphadenopathy. Midline trachea. No thyromegaly. Pharynx is clear. Patient has fair dentition. Chest examination; clear to auscultation bilaterally. S1-S2 audible, no murmurs. Regular rhythm. Abdomen examination; soft, nondistended. Nontender. Bowel sounds audible. No organomegaly. Extremity exam is; no peripheral edema. [employer] examination no focal deficit. Results Result Diagram: 11/05/16 0530 11/05/16 0530 Results 24 hrs Laboratory Tests Test 11/04/16 11:30 11/04/16 13:35 11/04/16 16:54 11/04/16 18:00 Arterial Blood HCO3 41.1 *H Arterial Blood Base Excess 16.5 H Arterial Blood Oxygen Saturation 98.3 H Ankit Test N/A Arterial Blood Gas Puncture Site A-Line Arterial Blood Carboxyhemoglobin 0.3 Arterial Blood Date Drawn 11/04/2016 11:30:57 AM Arterial Blood Methemoglobin 0.3 Arterial Blood pCO2 (Temp correct) 49.8 H Arterial Blood pH (Temp corrected) 7.534 H Arterial Blood pO2 (Temp corrected) 128.5 H Blood Gas A-a O2 Differential 26.9 H Blood Gas Actual Respiration Rate 12 Blood Gas Critical Value Read Back Y KASSANDRA HORTON Blood Gas Low PEEP Setting 5.0 Blood Gas Modality VENT - CPAP Blood Gas Notified Time 11/04/2016 11:38:36 AM Blood Gas Notified Whom JLD Blood Gas Pressure Support 10 Blood Gas Specimen Source Blood arterial Blood Gas Temperature 37.0 FiO2 30.0 Oxyhemoglobin Percent 97.7 Total Hemoglobin 10.5 L Bedside Glucose 191 150 Troponin I 0.150 *H Test 11/04/16 21:05 11/05/16 00:35 11/05/16 01:13 11/05/16 05:25 Bedside Glucose 131 134 130 Troponin I 0.182 *H Test 11/05/16 05:30 Anion Gap 8 Basophils # 0.0 Basophils % 0.3 Blood Urea Nitrogen 31 H Calcium Level 7.2 L Carbon Dioxide Level 36 H Chloride Level 91 L Cholesterol Level 132 Cholesterol/HDL Ratio 7.3 Creatinine 2.14 H Eosinophils # 1.0 H Eosinophils % 9.4 H Glucose Level 132 # HDL Cholesterol 18 L Hematocrit 29.7 L Hemoglobin 9.9 L LDL Cholesterol, Calculated 88 Lymphocytes # 1.1 Lymphocytes % 10.7 L Magnesium Level 1.6 L Mean Corpuscular Hemoglobin 29.5 Mean Corpuscular Hemoglobin Concent 33.3 Mean Corpuscular Volume 88.4 Mean Platelet Volume 12.0 H Monocytes # 1.0 H Monocytes % 9.8 Neutrophils # 7.2 Neutrophils % 68.9 Nucleated Red Blood Cells # 0.0 Nucleated Red Blood Cells % 0.0 Phosphorus Level 3.0 Platelet Count 141 # Potassium Level 3.0 L Red Blood Count 3.36 L Red Cell Distribution Width 14.1 Sodium Level 132 L Triglycerides Level 129 White Blood Count 10.4 # Medications Medications Current Medications Flumazenil (Romazicon) 0.2 mg Q1M PRN IV BENZODIAZEPINE OVERDOSE; Start at 05:00 Naloxone HCl (Narcan) 0.4 mg Q3M PRN IV DECREASED REPIRATORY RATE; Start at 05:00 Ondansetron HCl (Zofran Inj) 4 mg Q6H PRN IV NAUSEA AND/OR VOMITING; Start 06/08 at 05:00 Acetaminophen (Tylenol Liquid) 650 mg Q6H PRN PO PAIN LEVEL 1-3 OR FEVER; Start 10/30/16 at 05:00 Acetaminophen (Tylenol Tab) 650 mg Q6H PRN PO PAIN LEVEL 1-3 OR FEVER; Start at 05:00 Morphine Sulfate (morphine) 2 mg Q4H PRN IV PAIN LEVEL 7-10 Last administered on 11/04/16 01:51; Admin Dose 2 MG; Start 10/30/16 at 05:00 Zolpidem Tartrate (Ambien) 5 mg QHS PRN PO INSOMNIA; Start 10/30/16 at 05:00 Docusate Sodium 100 mg 100 mg Q12H PRN PO CONSTIPATION; Start 10/30/16 at 05:00 Norepinephrine/ Dextrose (Levophed/D5W) 500 ml @ 1.87 mls/hr TITRATE IV ; Start 10/30/16 at 10:00 IV Flush (NS 10 ml) 10 ml PRN PRN IV IV PROTOCOL; Start 10/30/16 at 19:00 Acetaminophen (Tylenol Supp) 650 mg Q6H PRN [place] FEVER Last administered on 08:43; Admin Dose 650 MG; Start 10/31/16 at 09:00 Miscellaneous Information 1 ea NOTE XX ; Start 10/31/16 at 12:30 Glucose (Glutose) 15 gm Q15M PRN PO DECREASED GLUCOSE; Start 10/31/16 at 12:30 Glucose (Glutose) 22.5 gm Q15M PRN PO DECREASED GLUCOSE; Start 10/31/16 at 12: 30 Dextrose (D50w Syringe) 25 ml Q15M PRN IV DECREASED GLUCOSE; Start 10/31/16 at 12:30 Dextrose (D50w Syringe) 50 ml Q15M PRN IV DECREASED GLUCOSE; Start 10/31/16 at 12:30 Glucagon (Glucagen) 1 mg Q15M PRN IM DECREASED GLUCOSE; Start 10/31/16 at 12:30 Glucose (Glutose) 15 gm Q15M PRN BUCCAL DECREASED GLUCOSE; Start 10/31/16 at 12 :30 Insulin Aspart (Novolog Insulin Pen) NOVOLOG *MODERATE* ALGORI... Q4 SC Last administered on 11/04/16 16:56; Admin Dose 2 UNIT; Start 10/31/16 at 21:00 Hydralazine HCl 10 mg 10 mg Q4H PRN IV SBP GREATER THAN 170 Last administered on 11/05/16 06:26; Admin Dose 10 MG; Start 10/31/16 at 23:00 Propofol (Diprivan) 100 ml @ 1.95 mls/hr Q12H IV ; Start 11/01/16 at 10:30 Pantoprazole 40 mg 40 mg BID@06,18 IV Last administered on 11/05/16 05:26; Admin Dose 40 MG; Start 11/01/16 at 18:00 Ceftriaxone Sodium 50 ml @ 100 mls/hr Q24H IVPB Last administered on 16:07; Admin Dose 100 MLS/HR; Start 11/02/16 at 16:30 Dextrose/Sodium Chloride (D5-1/2ns) 1,000 ml @ 40 mls/hr Q24H IV Last administered on 11/04/16 12:02; Admin Dose 40 MLS/HR; Start 11/04/16 at 12:00 Clonidine HCl 1 patch 1 patch Q7D TRANSDERM Last administered on 11/04/16 14: 42; Admin Dose 1 PATCH; Start 11/04/16 at 15:00 Amiodarone HCl/ Dextrose (Cordarone Iv/ D5W) 500 ml @ 0 mls/hr Q0M IV Last administered on 11/04/16 14:42; Admin Dose 33.4 MLS/HR; Start 11/04/16 at 14:45 ; Stop 11/05/16 at 14:44 SUJIT MAXWELL 16, 2017 08:43
--- NOTE | 2016-11-05 09:43 | RADRPT ---
PROCEDURE: XR Chest. CLINICAL INDICATION: Shortness of breath. TECHNIQUE: Single frontal view. COMPARISON: 11/03/2016. FINDINGS: The endotracheal tube has been removed. The left arm PICC line is in satisfactory position with the tip in the right atrium. The bibasilar atelectasis is unchanged. The lungs are otherwise clear. The heart size is normal. There is calcification in the aorta consistent with atherosclerosis. There is no pleural effusion. There is no pneumothorax. IMPRESSION: 1. Endotracheal tube removed. 2. No other change from 11/03/2016. RPTAT: QQ .Allen Mackey MD, MD Date Time Electronically viewed and signed by .Allen Mackey MD, MD on 11/05/2016 09:43 .R/
--- NOTE | 2016-11-05 10:21 | PN ---
DATE: 11/05/2016 The patient is extubated. There is continued and marked improvement in the patient's clinical status. He is awake. He responds appropriately to questions. His abdominal examination is benign. LABORATORY DATA: His hematocrit is stable at 29.7. His leukocytosis has resolved, with a white count of 10,400, without a left shift. Renal function continues to improve, with BUN decreased to 31 and creatinine decreased to 2.14. IMPRESSION: The patient is clinically stable, with no signs of recurrent bleeding. I am concerned about the cause of initial bleeding. The source is in the small bowel and may represent lymphoma, adenocarcinoma or AV malformation. In that regard, a CT enterography has been ordered. Further recommendations will be forthcoming, based on the patient's further workup and clinical course. Dictated By: PALOMO HUGGINS/INOCENCIO Conf#: [id number] DID#: [id number] MTDD
[2016-11-05] MEDS: PROPOFOL 100 ML IV SCH ×2 (10:30→20:40)
[2016-11-05] MEDS ORDERED: POTASSIUM CHLORIDE 250 ML IVPB ONE (11:00)
[2016-11-05] MEDS ORDERED: MAGNESIUM SULFATE 2 GM/50 ML 50 ML IVPB ONE (11:00)
--- NOTE | 2016-11-05 11:02 | CONS ---
Date/Time of Note Date/Time of Note DATE: 11/05/16 TIME: 10:57 Assessment/Plan Assessment/Plan Chief Complaint/Hosp Course IMPRESSION: 1. Paroxysmal atrial fibrillation-in SR on IV amio 2. Hypertension. 3. Abnormal electrocardiogram, assess for acute coronary syndrome.-mildly positive troponin 4. Right bundle branch block pattern. 5. Cerebrovascular accident, question etiology, likely related to paroxysmal atrial fibrillation.-s/p TTE with bubble study 11/04 negative for definite PFO/ ASD 6. Encephalopathy. 7. Gastrointestinal bleed with ongoing GI evaluation. 8. Possible urinary tract infection. 9. Renal failure. 10. Hyponatremia. 11. Coagulopathy, mild. 12. Anemia. 13. Leukocytosis. Recc: -Tele -IV amio to PO amio as tolerated -continue clonidine TTS and follow BP closely -Continue abx's -Ongoing Neuro eval -Follow hgb closely Problems: Consultation Date/Type/Reason Admit Date/Time Oct 30, 2016 at 08:00 Initial Consult Date 11/03/16 Type of Consultation: Cardiology Reason for Consultation PAF Referring Provider: ABBY RAMOS MD Exam/Review of Systems Vital Signs Vitals Vital Signs Date Time Temp Pulse Resp B/P Pulse Ox O2 Delivery O2 Flow Rate FiO2 11/05/16 08:15 71 17 148/58 100 11/05/16 08:00 97.8 Nasal Cannula 11/05/16 00:55 2.0 11/04/16 11:45 30 Intake and Output 11/04/16 11/04/16 11/05/16 15:00 23:00 07:00 Intake Total 753.4 ml 303.6 ml 450 ml Output Total 880 ml 1240 ml 550 ml Balance -126.6 ml -936.4 ml -100 ml Exam Review of Systems: CONSTITUTIONAL: No fevers, chills. PULMONARY: No sob CARDIOVASCULAR: No chest pain/palpitations GASTROINTESTINAL: No nausea/vomiting. GENITOURINARY: No hematuria/dysuria. MUSCULOSKELETAL: No myagias/arthalgias. PSYCHIATRIC: The patient denies depression. NEUROLOGIC: confused Constitutional: alert, oriented Psych: no complaints Head: normocephalic Neck: jvd (9 cm water), supple Respiratory: diminished breath sounds Cardiovascular: regular rate and rhythm Gastrointestinal: non-tender, soft Musculoskeletal: muscle tone Extremities: edema (none) Neurological: other (deficits) Results Result Diagram: 11/05/16 0530 11/05/16 0530 Results 24 hrs Laboratory Tests Test 11/04/16 11:30 11/04/16 13:35 11/04/16 16:54 11/04/16 18:00 Arterial Blood HCO3 41.1 *H Arterial Blood Base Excess 16.5 H Arterial Blood Oxygen Saturation 98.3 H Ankit Test N/A Arterial Blood Gas Puncture Site A-Line Arterial Blood Carboxyhemoglobin 0.3 Arterial Blood Date Drawn 11/04/2016 11:30:57 AM Arterial Blood Methemoglobin 0.3 Arterial Blood pCO2 (Temp correct) 49.8 H Arterial Blood pH (Temp corrected) 7.534 H Arterial Blood pO2 (Temp corrected) 128.5 H Blood Gas A-a O2 Differential 26.9 H Blood Gas Actual Respiration Rate 12 Blood Gas Critical Value Read Back Robbi CANNON RN Blood Gas Low PEEP Setting 5.0 Blood Gas Modality VENT - CPAP Blood Gas Notified Time 11/04/2016 11:38:36 AM Blood Gas Notified Whom JLD Blood Gas Pressure Support 10 Blood Gas Specimen Source Blood arterial Blood Gas Temperature 37.0 FiO2 30.0 Oxyhemoglobin Percent 97.7 Total Hemoglobin 10.5 L Bedside Glucose 191 150 Troponin I 0.150 *H Test 11/04/16 21:05 11/05/16 00:35 11/05/16 01:13 11/05/16 05:25 Bedside Glucose 131 134 130 Troponin I 0.182 *H Test 11/05/16 05:30 11/05/16 08:37 Anion Gap 8 Basophils # 0.0 Basophils % 0.3 Blood Urea Nitrogen 31 H Calcium Level 7.2 L Carbon Dioxide Level 36 H Chloride Level 91 L Cholesterol Level 132 Cholesterol/HDL Ratio 7.3 Creatinine 2.14 H Eosinophils # 1.0 H Eosinophils % 9.4 H Glucose Level 132 # HDL Cholesterol 18 L Hematocrit 29.7 L Hemoglobin 9.9 L LDL Cholesterol, Calculated 88 Lymphocytes # 1.1 Lymphocytes % 10.7 L Magnesium Level 1.6 L Mean Corpuscular Hemoglobin 29.5 Mean Corpuscular Hemoglobin Concent 33.3 Mean Corpuscular Volume 88.4 Mean Platelet Volume 12.0 H Monocytes # 1.0 H Monocytes % 9.8 Neutrophils # 7.2 Neutrophils % 68.9 Nucleated Red Blood Cells # 0.0 Nucleated Red Blood Cells % 0.0 Phosphorus Level 3.0 Platelet Count 141 # Potassium Level 3.0 L Red Blood Count 3.36 L Red Cell Distribution Width 14.1 Sodium Level 132 L Triglycerides Level 129 White Blood Count 10.4 # Bedside Glucose 171 Medications Medications Current Medications Flumazenil (Romazicon) 0.2 mg Q1M PRN IV BENZODIAZEPINE OVERDOSE; Start at 05:00 Naloxone HCl (Narcan) 0.4 mg Q3M PRN IV DECREASED REPIRATORY RATE; Start at 05:00 Ondansetron HCl (Zofran Inj) 4 mg Q6H PRN IV NAUSEA AND/OR VOMITING; Start 06/08 at 05:00 Acetaminophen (Tylenol Liquid) 650 mg Q6H PRN PO PAIN LEVEL 1-3 OR FEVER; Start 10/30/16 at 05:00 Acetaminophen (Tylenol Tab) 650 mg Q6H PRN PO PAIN LEVEL 1-3 OR FEVER; Start at 05:00 Morphine Sulfate (morphine) 2 mg Q4H PRN IV PAIN LEVEL 7-10 Last administered on 11/04/16 01:51; Admin Dose 2 MG; Start 10/30/16 at 05:00 Zolpidem Tartrate (Ambien) 5 mg QHS PRN PO INSOMNIA; Start 10/30/16 at 05:00 Docusate Sodium 100 mg 100 mg Q12H PRN PO CONSTIPATION; Start 10/30/16 at 05:00 Norepinephrine/ Dextrose (Levophed/D5W) 500 ml @ 1.87 mls/hr TITRATE IV ; Start 10/30/16 at 10:00 IV Flush (NS 10 ml) 10 ml PRN PRN IV IV PROTOCOL; Start 10/30/16 at 19:00 Acetaminophen (Tylenol Supp) 650 mg Q6H PRN [place] FEVER Last administered on 08:43; Admin Dose 650 MG; Start 10/31/16 at 09:00 Miscellaneous Information 1 ea NOTE XX ; Start 10/31/16 at 12:30 Glucose (Glutose) 15 gm Q15M PRN PO DECREASED GLUCOSE; Start 10/31/16 at 12:30 Glucose (Glutose) 22.5 gm Q15M PRN PO DECREASED GLUCOSE; Start 10/31/16 at 12: 30 Dextrose (D50w Syringe) 25 ml Q15M PRN IV DECREASED GLUCOSE; Start 10/31/16 at 12:30 Dextrose (D50w Syringe) 50 ml Q15M PRN IV DECREASED GLUCOSE; Start 10/31/16 at 12:30 Glucagon (Glucagen) 1 mg Q15M PRN IM DECREASED GLUCOSE; Start 10/31/16 at 12:30 Glucose (Glutose) 15 gm Q15M PRN BUCCAL DECREASED GLUCOSE; Start 10/31/16 at 12 :30 Insulin Aspart (Novolog Insulin Pen) NOVOLOG *MODERATE* ALGORI... Q4 SC Last administered on 11/05/16 08:53; Admin Dose 2 UNIT; Start 10/31/16 at 21:00 Hydralazine HCl 10 mg 10 mg Q4H PRN IV SBP GREATER THAN 170 Last administered on 11/05/16 06:26; Admin Dose 10 MG; Start 10/31/16 at 23:00 Propofol (Diprivan) 100 ml @ 1.95 mls/hr Q12H IV ; Start 11/01/16 at 10:30 Pantoprazole 40 mg 40 mg BID@06,18 IV Last administered on 11/05/16 05:26; Admin Dose 40 MG; Start 11/01/16 at 18:00 Ceftriaxone Sodium 50 ml @ 100 mls/hr Q24H IVPB Last administered on 16:07; Admin Dose 100 MLS/HR; Start 11/02/16 at 16:30 Dextrose/Sodium Chloride (D5-1/2ns) 1,000 ml @ 40 mls/hr Q24H IV Last administered on 11/04/16 12:02; Admin Dose 40 MLS/HR; Start 11/04/16 at 12:00 Clonidine HCl 1 patch 1 patch Q7D TRANSDERM Last administered on 11/04/16 14: 42; Admin Dose 1 PATCH; Start 11/04/16 at 15:00 Amiodarone HCl/ Dextrose (Cordarone Iv/ D5W) 500 ml @ 0 mls/hr Q0M IV Last administered on 11/04/16 14:42; Admin Dose 33.4 MLS/HR; Start 11/04/16 at 14:45 ; Stop 11/05/16 at 14:44 LESLI SHEA 16, 2017 11:02
[2016-11-05] MEDS ORDERED: CLONIDINE 0.2 MG/24 HR PATCH TRANSDERM SCH (12:30)
[2016-11-05] MEDS: AMIODARONE 200 MG TAB PO SCH ×2 (13:35→20:22)
[2016-11-05] MEDS: DEXTROSE 5%-0.45% NACL 1,000 ML IV SCH (13:46)
--- NOTE | 2016-11-05 14:13 | CONS ---
Date/Time of Note Date/Time of Note DATE: 11/05/16 TIME: 14:11 Assessment/Plan Assessment/Plan Chief Complaint/Hosp Course SUBJECTIVE: No acute changes. S/p extubated, awake, wants to eat, looks comfortable, no fevers INDWELLINGS: left upper extremity PICC line placed on October 30, Mark. MICROBIOLOGY: Urine culture on admission grew E. coli. ANTIMICROBIALS: The patient is on IV Rocephin. PHYSICAL EXAMINATION: GENERAL: Fragile, elderly man who is lying comfortably in bed. HEENT: Head atraumatic, normocephalic. Sclerae anicteric. Buccal mucosa dry. NECK: Supple, trachea midline. CHEST: Rise symmetrical. Breath sounds diminished to bases. HEART: S1, S2. ABDOMEN: Soft, bowel tones present. EXTREMITIES: Without cyanosis. ASSESSMENT: 1. Acute respiratory failure==> extubated. 2. Urinary tract infection. 3. Acute anemia. 4. Persistent leukocytosis, likely reactive. PLAN: Stable post extubation. Continue abx, aspiration precautions, follow recommendations of consultants. DW staff/py Problems: Consultation Date/Type/Reason Admit Date/Time Oct 30, 2016 at 08:00 Initial Consult Date 11/03/16 Type of Consultation: ID Referring Provider: ABBY RAMOS MD Exam/Review of Systems Vital Signs Vitals Vital Signs Date Time Temp Pulse Resp B/P Pulse Ox O2 Delivery O2 Flow Rate FiO2 11/05/16 12:15 75 14 159/62 100 11/05/16 12:00 98.4 Nasal Cannula 11/05/16 00:55 2.0 11/04/16 11:45 30 Intake and Output 11/04/16 11/04/16 11/05/16 15:00 23:00 07:00 Intake Total 753.4 ml 303.6 ml 450 ml Output Total 880 ml 1240 ml 550 ml Balance -126.6 ml -936.4 ml -100 ml Results Result Diagram: 11/05/16 0530 11/05/16 0530 Results 24 hrs Laboratory Tests Test 11/04/16 16:54 11/04/16 18:00 11/04/16 21:05 11/05/16 00:35 Bedside Glucose 150 131 134 Troponin I 0.150 *H Test 11/05/16 01:13 11/05/16 05:25 11/05/16 05:30 11/05/16 08:37 Troponin I 0.182 *H Bedside Glucose 130 171 Anion Gap 8 Basophils # 0.0 Basophils % 0.3 Blood Urea Nitrogen 31 H Calcium Level 7.2 L Carbon Dioxide Level 36 H Chloride Level 91 L Cholesterol Level 132 Cholesterol/HDL Ratio 7.3 Creatinine 2.14 H Eosinophils # 1.0 H Eosinophils % 9.4 H Glucose Level 132 # HDL Cholesterol 18 L Hematocrit 29.7 L Hemoglobin 9.9 L LDL Cholesterol, Calculated 88 Lymphocytes # 1.1 Lymphocytes % 10.7 L Magnesium Level 1.6 L Mean Corpuscular Hemoglobin 29.5 Mean Corpuscular Hemoglobin Concent 33.3 Mean Corpuscular Volume 88.4 Mean Platelet Volume 12.0 H Monocytes # 1.0 H Monocytes % 9.8 Neutrophils # 7.2 Neutrophils % 68.9 Nucleated Red Blood Cells # 0.0 Nucleated Red Blood Cells % 0.0 Phosphorus Level 3.0 Platelet Count 141 # Potassium Level 3.0 L Red Blood Count 3.36 L Red Cell Distribution Width 14.1 Sodium Level 132 L Triglycerides Level 129 White Blood Count 10.4 # Test 11/05/16 12:55 Bedside Glucose 187 Medications Medications Current Medications Flumazenil (Romazicon) 0.2 mg Q1M PRN IV BENZODIAZEPINE OVERDOSE; Start at 05:00 Naloxone HCl (Narcan) 0.4 mg Q3M PRN IV DECREASED REPIRATORY RATE; Start at 05:00 Ondansetron HCl (Zofran Inj) 4 mg Q6H PRN IV NAUSEA AND/OR VOMITING; Start 06/08 at 05:00 Acetaminophen (Tylenol Liquid) 650 mg Q6H PRN PO PAIN LEVEL 1-3 OR FEVER; Start 10/30/16 at 05:00 Acetaminophen (Tylenol Tab) 650 mg Q6H PRN PO PAIN LEVEL 1-3 OR FEVER; Start at 05:00 Morphine Sulfate (morphine) 2 mg Q4H PRN IV PAIN LEVEL 7-10 Last administered on 11/04/16t 01:51; Admin Dose 2 MG; Start 10/30/16 at 05:00 Zolpidem Tartrate (Ambien) 5 mg QHS PRN PO INSOMNIA; Start 10/30/16 at 05:00 Docusate Sodium 100 mg 100 mg Q12H PRN PO CONSTIPATION; Start 10/30/16 at 05:00 Norepinephrine/ Dextrose (Levophed/D5W) 500 ml @ 1.87 mls/hr TITRATE IV ; Start 10/30/16 at 10:00 IV Flush (NS 10 ml) 10 ml PRN PRN IV IV PROTOCOL; Start 10/30/16 at 19:00 Acetaminophen (Tylenol Supp) 650 mg Q6H PRN [place] FEVER Last administered on 08:43; Admin Dose 650 MG; Start 10/31/16 at 09:00 Miscellaneous Information 1 ea NOTE XX ; Start 10/31/16 at 12:30 Glucose (Glutose) 15 gm Q15M PRN PO DECREASED GLUCOSE; Start 10/31/16 at 12:30 Glucose (Glutose) 22.5 gm Q15M PRN PO DECREASED GLUCOSE; Start 10/31/16 at 12: 30 Dextrose (D50w Syringe) 25 ml Q15M PRN IV DECREASED GLUCOSE; Start 10/31/16 at 12:30 Dextrose (D50w Syringe) 50 ml Q15M PRN IV DECREASED GLUCOSE; Start 10/31/16 at 12:30 Glucagon (Glucagen) 1 mg Q15M PRN IM DECREASED GLUCOSE; Start 10/31/16 at 12:30 Glucose (Glutose) 15 gm Q15M PRN BUCCAL DECREASED GLUCOSE; Start 10/31/16 at 12 :30 Insulin Aspart (Novolog Insulin Pen) NOVOLOG *MODERATE* ALGORI... Q4 SC Last administered on 11/05/16 12:59; Admin Dose 4 UNIT; Start 10/31/16 at 21:00 Hydralazine HCl 10 mg 10 mg Q4H PRN IV SBP GREATER THAN 170 Last administered on 11/05/16 06:26; Admin Dose 10 MG; Start 10/31/16 at 23:00 Propofol (Diprivan) 100 ml @ 1.95 mls/hr Q12H IV ; Start 11/01/16 at 10:30 Pantoprazole 40 mg 40 mg BID@06,18 IV Last administered on 11/05/16 05:26; Admin Dose 40 MG; Start 11/01/16 at 18:00 Ceftriaxone Sodium 50 ml @ 100 mls/hr Q24H IVPB Last administered on 16:07; Admin Dose 100 MLS/HR; Start 11/02/16 at 16:30 Dextrose/Sodium Chloride 1,000 ml @ 40 mls/hr Q24H IV Last administered on 13:46; Admin Dose 40 MLS/HR; Start 11/04/16 at 12:00 Amiodarone HCl 900 mg/Dextrose 500 ml @ 0 mls/hr Q0M IV Last administered on 14:42; Admin Dose 33.4 MLS/HR; Start 11/04/16 at 14:45; Stop 11/05/16 at 14:44 Potassium Chloride (KCl 40 MEQ/250 ML NS) 250 ml @ 62.5 mls/hr ONCE ONCE IVPB Last administered on 11/05/16 13:47; Admin Dose 62.5 MLS/HR; Start 11/05/16 at 11:00; Stop 11/05/16 at 14:59 Amiodarone HCl (Cordarone) 200 mg TID PO Last administered on 11/05/16 13:35; Admin Dose 200 MG; Start 11/05/16 at 13:00 Clonidine HCl (Catapres-Tts 2 Patch) 1 patch Q7D TRANSDERM Last administered on 11/05/16 13:53; Admin Dose 1 PATCH; Start 11/05/16 at 12:30 KAYLA CASTREJON NP Nov 05, 2016 14:13
[2016-11-05] MEDS ORDERED: BARIUM SULFATE 0.1% 450 ML BTL (VOLUMEN) PO ONE ×3 (15:18)
[2016-11-05] MEDS: CEFTRIAXONE 1 GM/50 ML (PMX) 50 ML IVPB SCH (16:30)
--- NOTE | 2016-11-05 16:46 | CONS ---
Date/Time of Note Date/Time of Note DATE: 11/05/16 TIME: 16:39 Assessment/Plan Assessment/Plan Chief Complaint/Hosp Course The patient is a 62 year old male with pAFib, HTN, CVA, acute respiratory failure s/p extubation, UTI, with GIB s/p EGD and colonoscopy on 10/30/16 with likely bleeding source is between 2nd portion of duodenum and ileum (portion of gut not reachable with standard endoscopy). The antrum appeared thickened status post random biopsy showed showed chronic gastritis and benign lymphoid aggregates but no evidence of H. pylori and no evidence of intestinal metaplasia , dysplasia or malignancy. Per Dr. Arshad, pending CT enterography. # Normocytic anemia, likely related to GIB, possible anemia of chronic inflammation or chronic kidney disease. - Hemoglobin currently fairly stable at 9.9, transfuse < 8 - Pending iron panel, ferritin, LDH, retic count, Vitamin B12, folate, epo level # Leukocytosis, likely reactive, resolved today. F/U ESR, CRP. # Thrombocytopenia, possibly due to infection or consumption, resolving. DIC panel sent. Will continue to follow. Problems: Consultation Date/Type/Reason Admit Date/Time Oct 30, 2016 at 08:00 Date of Consultation: Nov 05, 2016 Type of Consultation: Hematology Reason for Consultation Leukocytosis, anemia, thrombocytopenia Hx of Present Illness The patient is a 62 year old male with acute respiratory failure s/p extubation , UTI, with GIB s/p EGD and colonoscopy on 10/30/16 with likely bleeding source is between 2nd portion of duodenum and ileum (portion of gut not reachable with standard endoscopy). The antrum appeared thickened status post random biopsy showed showed chronic gastritis and benign lymphoid aggregates but no evidence of H. pylori and no evidence of intestinal metaplasia, dysplasia or malignancy. Per Dr. Arshad, pending CT enterography. Patient had one episode of bloody stool today. Respiratory: no complaints Cardiovascular: no complaints Psychological: no complaints Past Medical History Medical History: coronary artery disease, GERD, GI bleed, hypertension, other ( Afib) Past Surgical History Past Surgical Hx: noncontributory Social History Alcohol Use: none Smoking Status: Never smoker Drug Use: none Exam/Review of Systems Vital Signs Vitals Vital Signs Date Time Temp Pulse Resp B/P Pulse Ox O2 Delivery O2 Flow Rate FiO2 11/05/16 16:00 66 11/05/16 13:45 10 133/62 98 11/05/16 13:30 Nasal Cannula 11/05/16 12:00 98.4 11/05/16 00:55 2.0 11/04/16 11:45 30 Intake and Output 11/04/16 11/04/16 11/05/16 15:00 23:00 07:00 Intake Total 753.4 ml 303.6 ml 450 ml Output Total 880 ml 1240 ml 550 ml Balance -126.6 ml -936.4 ml -100 ml Exam Constitutional: alert Psych: no complaints Head: normocephalic Neck: supple Respiratory: clear to auscultation Cardiovascular: regular rate and rhythm Gastrointestinal: non-tender, soft Musculoskeletal: nl extremities to inspection Results Result Diagram: 11/05/16 0530 11/05/16 0530 Results 24 hrs Laboratory Tests Test 11/04/16 16:54 11/04/16 18:00 11/04/16 21:05 11/05/16 00:35 Bedside Glucose 150 131 134 Troponin I 0.150 *H Test 11/05/16 01:13 11/05/16 05:25 11/05/16 05:30 11/05/16 08:37 Troponin I 0.182 *H Bedside Glucose 130 171 Anion Gap 8 Basophils # 0.0 Basophils % 0.3 Blood Urea Nitrogen 31 H Calcium Level 7.2 L Carbon Dioxide Level 36 H Chloride Level 91 L Cholesterol Level 132 Cholesterol/HDL Ratio 7.3 Creatinine 2.14 H Eosinophils # 1.0 H Eosinophils % 9.4 H Glucose Level 132 # HDL Cholesterol 18 L Hematocrit 29.7 L Hemoglobin 9.9 L LDL Cholesterol, Calculated 88 Lymphocytes # 1.1 Lymphocytes % 10.7 L Magnesium Level 1.6 L Mean Corpuscular Hemoglobin 29.5 Mean Corpuscular Hemoglobin Concent 33.3 Mean Corpuscular Volume 88.4 Mean Platelet Volume 12.0 H Monocytes # 1.0 H Monocytes % 9.8 Neutrophils # 7.2 Neutrophils % 68.9 Nucleated Red Blood Cells # 0.0 Nucleated Red Blood Cells % 0.0 Phosphorus Level 3.0 Platelet Count 141 # Potassium Level 3.0 L Red Blood Count 3.36 L Red Cell Distribution Width 14.1 Sodium Level 132 L Triglycerides Level 129 White Blood Count 10.4 # Test 11/05/16 12:55 Bedside Glucose 187 Medications Medications Current Medications Flumazenil (Romazicon) 0.2 mg Q1M PRN IV BENZODIAZEPINE OVERDOSE; Start at 05:00 Naloxone HCl (Narcan) 0.4 mg Q3M PRN IV DECREASED REPIRATORY RATE; Start at 05:00 Ondansetron HCl (Zofran Inj) 4 mg Q6H PRN IV NAUSEA AND/OR VOMITING; Start 06/08 at 05:00 Acetaminophen (Tylenol Liquid) 650 mg Q6H PRN PO PAIN LEVEL 1-3 OR FEVER; Start 10/30/16 at 05:00 Acetaminophen (Tylenol Tab) 650 mg Q6H PRN PO PAIN LEVEL 1-3 OR FEVER; Start at 05:00 Morphine Sulfate (morphine) 2 mg Q4H PRN IV PAIN LEVEL 7-10 Last administered on 11/04/16 01:51; Admin Dose 2 MG; Start 10/30/16 at 05:00 Zolpidem Tartrate (Ambien) 5 mg QHS PRN PO INSOMNIA; Start 10/30/16 at 05:00 Docusate Sodium 100 mg 100 mg Q12H PRN PO CONSTIPATION; Start 10/30/16 at 05:00 Norepinephrine/ Dextrose (Levophed/D5W) 500 ml @ 1.87 mls/hr TITRATE IV ; Start 10/30/16 at 10:00 IV Flush (NS 10 ml) 10 ml PRN PRN IV IV PROTOCOL; Start 10/30/16 at 19:00 Acetaminophen (Tylenol Supp) 650 mg Q6H PRN [place] FEVER Last administered on 08:43; Admin Dose 650 MG; Start 10/31/16 at 09:00 Miscellaneous Information 1 ea NOTE XX ; Start 10/31/16 at 12:30 Glucose (Glutose) 15 gm Q15M PRN PO DECREASED GLUCOSE; Start 10/31/16 at 12:30 Glucose (Glutose) 22.5 gm Q15M PRN PO DECREASED GLUCOSE; Start 10/31/16 at 12: 30 Dextrose (D50w Syringe) 25 ml Q15M PRN IV DECREASED GLUCOSE; Start 10/31/16 at 12:30 Dextrose (D50w Syringe) 50 ml Q15M PRN IV DECREASED GLUCOSE; Start 10/31/16 at 12:30 Glucagon (Glucagen) 1 mg Q15M PRN IM DECREASED GLUCOSE; Start 10/31/16 at 12:30 Glucose (Glutose) 15 gm Q15M PRN BUCCAL DECREASED GLUCOSE; Start 10/31/16 at 12 :30 Insulin Aspart (Novolog Insulin Pen) NOVOLOG *MODERATE* ALGORI... Q4 SC Last administered on 11/05/16 12:59; Admin Dose 4 UNIT; Start 10/31/16 at 21:00 Hydralazine HCl 10 mg 10 mg Q4H PRN IV SBP GREATER THAN 170 Last administered on 11/05/16 15:52; Admin Dose 10 MG; Start 10/31/16 at 23:00 Propofol (Diprivan) 100 ml @ 1.95 mls/hr Q12H IV ; Start 11/01/16 at 10:30 Pantoprazole 40 mg 40 mg BID@06,18 IV Last administered on 11/05/16 05:26; Admin Dose 40 MG; Start 11/01/16 at 18:00 Ceftriaxone Sodium 50 ml @ 100 mls/hr Q24H IVPB Last administered on 16:07; Admin Dose 100 MLS/HR; Start 11/02/16 at 16:30 Dextrose/Sodium Chloride (D5-1/2ns) 1,000 ml @ 40 mls/hr Q24H IV Last administered on 11/05/16 13:46; Admin Dose 40 MLS/HR; Start 11/04/16 at 12:00 Amiodarone HCl (Cordarone) 200 mg TID PO Last administered on 11/05/16 13:35; Admin Dose 200 MG; Start 11/05/16 at 13:00 Clonidine HCl (Catapres-Tts 2 Patch) 1 patch Q7D TRANSDERM Last administered on 11/05/16 13:53; Admin Dose 1 PATCH; Start 11/05/16 at 12:30 ELIZABETH CHURCH MD Nov 05, 2016 16:45
[2016-11-05] MEDS ORDERED: GLUCAGON 1 MG INJ ONE (17:04)
--- NOTE | 2016-11-05 18:52 | PN ---
Date/Time of Note Date/Time of Note DATE: 11/05/16 TIME: 18:50 Assessment/Plan VTE Prophylaxis VTE Prophylaxis Intervention: other Lines/Catheters IV Catheter Type (from [facility]): A Line Urinary Cath still in place: Yes Reason Cath still needed: other (indicate) Assessment/Plan Chief Complaint/Hosp Course IMPRESSION: 1. Patient has massive gastrointestinal bleed.better 2. HYPOKALEMIA 3. Metabolic acidosis and acute kidney injury. 4. cva 5. Hypoalbuminemia. 6 thrombocytopenia BETTER 7 HYPOMAGNESEMIA PER GI AND SURGERY antibiotic id cardio IV LYTES Problems: Subjective 24 Hr Interval Summary Subjective hx not possible: other (OFF VENT) Respiratory: no complaints Cardiovascular: no complaints Gastrointestinal: no complaints Exam/Review of Systems Vital Signs Vitals Vital Signs Date Time Temp Pulse Resp B/P Pulse Ox O2 Delivery O2 Flow Rate FiO2 11/05/16 16:00 66 11/05/16 13:45 10 133/62 98 11/05/16 13:30 Nasal Cannula 11/05/16 12:00 98.4 11/05/16 00:55 2.0 11/04/16 11:45 30 Intake and Output 11/04/16 11/04/16 11/05/16 14:59 22:59 06:59 Intake Total 805 ml 377.0 ml 450 ml Output Total 840 ml 1080 ml 750 ml Balance -35 ml -703.0 ml -300 ml Exam Neck: supple Respiratory: clear to auscultation Cardiovascular: regular rate and rhythm Gastrointestinal: bowel sounds (+), soft Results Result Diagram: 11/05/16 0530 11/05/16 0530 Results 24 hrs Laboratory Tests Test 11/04/16 21:05 11/05/16 00:35 11/05/16 01:13 11/05/16 05:25 Bedside Glucose 131 134 130 Troponin I 0.182 *H Test 11/05/16 05:30 11/05/16 08:37 11/05/16 12:55 11/05/16 18:28 Anion Gap 8 Basophils # 0.0 Basophils % 0.3 Blood Urea Nitrogen 31 H Calcium Level 7.2 L Carbon Dioxide Level 36 H Chloride Level 91 L Cholesterol Level 132 Cholesterol/HDL Ratio 7.3 Creatinine 2.14 H Eosinophils # 1.0 H Eosinophils % 9.4 H Glucose Level 132 # HDL Cholesterol 18 L Hematocrit 29.7 L Hemoglobin 9.9 L LDL Cholesterol, Calculated 88 Lymphocytes # 1.1 Lymphocytes % 10.7 L Magnesium Level 1.6 L Mean Corpuscular Hemoglobin 29.5 Mean Corpuscular Hemoglobin Concent 33.3 Mean Corpuscular Volume 88.4 Mean Platelet Volume 12.0 H Monocytes # 1.0 H Monocytes % 9.8 Neutrophils # 7.2 Neutrophils % 68.9 Nucleated Red Blood Cells # 0.0 Nucleated Red Blood Cells % 0.0 Phosphorus Level 3.0 Platelet Count 141 # Potassium Level 3.0 L Red Blood Count 3.36 L Red Cell Distribution Width 14.1 Sodium Level 132 L Triglycerides Level 129 White Blood Count 10.4 # Bedside Glucose 171 187 118 Medications Medications Current Medications Flumazenil (Romazicon) 0.2 mg Q1M PRN IV BENZODIAZEPINE OVERDOSE; Start at 05:00 Naloxone HCl (Narcan) 0.4 mg Q3M PRN IV DECREASED REPIRATORY RATE; Start at 05:00 Ondansetron HCl (Zofran Inj) 4 mg Q6H PRN IV NAUSEA AND/OR VOMITING; Start 06/08 at 05:00 Acetaminophen (Tylenol Liquid) 650 mg Q6H PRN PO PAIN LEVEL 1-3 OR FEVER; Start 10/30/16 at 05:00 Acetaminophen (Tylenol Tab) 650 mg Q6H PRN PO PAIN LEVEL 1-3 OR FEVER; Start at 05:00 Morphine Sulfate (morphine) 2 mg Q4H PRN IV PAIN LEVEL 7-10 Last administered on 11/04/16 01:51; Admin Dose 2 MG; Start 10/30/16 at 05:00 Zolpidem Tartrate (Ambien) 5 mg QHS PRN PO INSOMNIA; Start 10/30/16 at 05:00 Docusate Sodium 100 mg 100 mg Q12H PRN PO CONSTIPATION; Start 10/30/16 at 05:00 Norepinephrine/ Dextrose (Levophed/D5W) 500 ml @ 1.87 mls/hr TITRATE IV ; Start 10/30/16 at 10:00 IV Flush (NS 10 ml) 10 ml PRN PRN IV IV PROTOCOL; Start 10/30/16 at 19:00 Acetaminophen (Tylenol Supp) 650 mg Q6H PRN [place] FEVER Last administered on 08:43; Admin Dose 650 MG; Start 10/31/16 at 09:00 Miscellaneous Information 1 ea NOTE XX ; Start 10/31/16 at 12:30 Glucose (Glutose) 15 gm Q15M PRN PO DECREASED GLUCOSE; Start 10/31/16 at 12:30 Glucose (Glutose) 22.5 gm Q15M PRN PO DECREASED GLUCOSE; Start 10/31/16 at 12: 30 Dextrose (D50w Syringe) 25 ml Q15M PRN IV DECREASED GLUCOSE; Start 10/31/16 at 12:30 Dextrose (D50w Syringe) 50 ml Q15M PRN IV DECREASED GLUCOSE; Start 10/31/16 at 12:30 Glucagon (Glucagen) 1 mg Q15M PRN IM DECREASED GLUCOSE; Start 10/31/16 at 12:30 Glucose (Glutose) 15 gm Q15M PRN BUCCAL DECREASED GLUCOSE; Start 10/31/16 at 12 :30 Insulin Aspart (Novolog Insulin Pen) NOVOLOG *MODERATE* ALGORI... Q4 SC Last administered on 11/05/16 12:59; Admin Dose 4 UNIT; Start 10/31/16 at 21:00 Hydralazine HCl 10 mg 10 mg Q4H PRN IV SBP GREATER THAN 170 Last administered on 11/05/16 15:52; Admin Dose 10 MG; Start 10/31/16 at 23:00 Propofol (Diprivan) 100 ml @ 1.95 mls/hr Q12H IV ; Start 11/01/16 at 10:30 Pantoprazole 40 mg 40 mg BID@06,18 IV Last administered on 11/05/16 18:33; Admin Dose 40 MG; Start 11/01/16 at 18:00 Ceftriaxone Sodium 50 ml @ 100 mls/hr Q24H IVPB Last administered on 16:30; Admin Dose 100 MLS/HR; Start 11/02/16 at 16:30 Dextrose/Sodium Chloride (D5-1/2ns) 1,000 ml @ 40 mls/hr Q24H IV Last administered on 11/05/16 13:46; Admin Dose 40 MLS/HR; Start 11/04/16 at 12:00 Amiodarone HCl (Cordarone) 200 mg TID PO Last administered on 11/05/16 13:35; Admin Dose 200 MG; Start 11/05/16 at 13:00 Clonidine HCl (Catapres-Tts 2 Patch) 1 patch Q7D TRANSDERM Last administered on 11/05/16t 13:53; Admin Dose 1 PATCH; Start 11/05/16 at 12:30 ABBY RAMOS MD Nov 05, 2016 18:51
--- NOTE | 2016-11-05 19:32 | CONS ---
DATE OF ADMISSION: 10/30/2016 DATE OF CONSULTATION: HISTORY OF PRESENT ILLNESS: A 71-year-old male who came to the ER complaining of bright red blood p er rectum associated with dizziness and syncopal episode. The patient was evaluated in the ER and w as seen by Dr. Arshad. Dr. Arshad ____ asked for GI consult for a possible colonoscopy. The patien t was seen by Dr. Caballero ____, coke burner. Endoscopy was done. EGD did not find any signifi cant finding. Colonoscopy also was negative. The patient was given multiple blood transfusions. T he patient was also in respiratory failure and had a leukocytosis, initially intubated and was succe ssfully extubated yesterday on 11/04/2016. The patient was placed on antibiotic by ID for UTI and W BC count has come down. Hematology consult also was called in for thrombocytopenia and now the plat elet count has come back to 141. Patient had a neurology consult for altered mental status, but aft er extubation and stopping all the sedatives, the patient appears to be alert and awake. The patien t was not signed out to me by Dr. Caballero ____, so I did not see the patient for 3 days. Today, I acc identally looked at the chart and realized that this patient needed a followup, so I looked at all t he progress notes from different consultants and also his blood workup. The patient was given contr ast for a CT enterography ordered by Dr. Arshad and after having had a large quantity of contrast as per the staff, patient after 3 days for the first time had a blackish colored stool. I looked at t he clothes which was stained by the stool and it appeared to be dark ____ with blackish color on the clothes. PHYSICAL EXAMINATION GENERAL: The patient was alert, awake, oriented, had no complaint. ABDOMEN: Benign. CARDIOVASCULAR SYSTEM, RESPIRATORY SYSTEM: Within normal limits. EXTREMITIES: No edema. CENTRAL NERVOUS SYSTEM: Also grossly appeared normal. The patient's WBC count was 10.4. Hematocri t 29, which has remained stable. BUN was 38, creatinine was 2.14. CT enterography: The result is still pending. His bleeding scan on 11/02/2016 was negative. IMPRESSION: 1. Recurrent upper gastrointestinal bleeding, appears to be coming from the upper gastrointestinal tract, probably proximal small bowel because it is sort of a blackish in color. 2. Anemia. 3. Thrombocytopenia, which is corrected. 4. Urinary tract infection, responded well to antibiotic. 5. Status post extubation. 6. Hypertension by history. 7. Renal failure. PLAN: At this point, is to continue PPI, monitor H and H. Will review the CT scan. Continue PPI a nd antibiotics. Monitor H and H and transfuse on a need basis and after reviewing CT enterography r esults, we will decide whether patient needs a push enteroscopy or not, and if the bleeding has stop ped, I will do capsule endoscopy in the office. If the bleeding continues then possible push entero scopy and close surgical followup, or the patient may need a celiac axis angiogram. Dictated By: JEFRY PRUETT/INOCENCIO Conf#: [id number] DID#: [id number]
--- NOTE | 2016-11-05 20:06 | RADRPT ---
PROCEDURE: CT abdomen and pelvis without contrast. CLINICAL INDICATION: Gastrointestinal bleeding. Enterography TECHNIQUE: CT scan of the abdomen and pelvis without contrast was performed. A total of 1350 ml Vo lumen for enteric contrast media is utilized. Sagittal and coronal reformatted images were obtained from the axial source images. CTDI = 5.34 mGy; DLP = 340.51 mGy-cm COMPARISON: Gastrointestinal bleeding scan 11/02/2016 FINDINGS: Visualized lower thorax: Moderate bilateral posterior lower lobe subsegmental atelectasis is presen t. The visualized heart shows extensive coronary artery calcification and a central venous access c atheter in the right atrium. Small to moderate bilateral pleural effusions are present. Liver, gallbladder, pancreas and spleen: The liver is normal and size, contour and attenuation. Th ere is no evidence for a liver mass or ductal dilatation. Mild gallbladder distension of wall thick ening suggest without calcified gallstones. No common bile duct abnormality is demonstrated. Tiny punctate calcifications in the region of the pancreas may reflect the sequela of chronic pancreatiti s but there is no evidence of acute pancreatic abnormality or ductal dilatation. The calcifications may be related to atherosclerotic disease. The spleen is normal in size. Adrenal glands and genitourinary system: The adrenal glands are normal bilaterally. Tiny punctate 1 mm calcifications within the interpolar region is of the kidneys bilaterally likely nonobstructing calculi. A simple exophytic cyst of 1.5 cm in the right lateral renal cortex is noted.. The ureter s are unremarkable. The urinary bladder is contracted around a Flores catheter. The prostate gland i s normal in size. The scrotum shows no abnormality. Gastrointestinal system: The stomach is distended with a gas/fluid level. A small sliding hiatal h ernia is present. There is no evidence of gastric wall thickening. The small bowel is normal in ca liber. In the region of the duodenal below both medially and is a punctate focus of gas which may r eflect a small diverticulum, a duodenal ulcer is a consideration but believed to be less likely (ser ies 3 image 60). There is no evidence of focal small bowel wall thickening, ileus or obstruction. T he appendix is not well visualized but there are no findings to suggest appendicitis. The colon dem onstrates predominately liquid stool throughout. There is no evidence for colitis or diverticulitis . Peritoneum, retroperitoneum, lymph nodes and vessels: The abdominal aorta is normal in caliber. The re is moderate to severe aortic and iliac system atherosclerotic calcification. The inferior vena c ivette is unremarkable. There is no evidence for adenopathy or mass. A small amount of pelvic and lef t pericolic gutter ascites is present. Small amount of perihepatic ascites is also noted. Osseous structures and musculoskeletal findings: There is no fracture, lytic or blastic lesion. Mod erate to severe multilevel degenerative spondylosis of the thoracolumbar spine is present No muscula r abnormality or soft tissue pathology is present. RPTAT:HJJR IMPRESSION: 1. Small punctate focus of gas in the region of the medial duodenal bulb is likely a small divertic ulum or normal, a duodenal ulcer is a consideration believed to be less likely. 2. The remainder of the gastrointestinal system is grossly normal without focal or diffuse bowel wa ll thickening nor abnormality to help explain the location of the patient's gastrointestinal bleedin g, liquid stool is seen throughout the colon may correlate with diarrhea clinically. 3. Perihepatic, pelvic and left pericolic gutter ascites. 4. Small sliding hiatal hernia. 5. Bilateral pleural effusions and compressive atelectasis of the lower lobes. 6. Mild gallbladder wall thickening possibly related to ascites. 7. Tiny punctate nonobstructing bilateral renal calculi and simple right renal cyst. 8. Extensive atherosclerotic calcification of the aorta and branches. 9. Flores catheter in good position. Physician Jon Date Time Electronically viewed and signed by Physician Jon on 11/05/2016 20:06 JR/
[2016-11-06] VITALS (27 sets, daily range): BP systolic 122–189; BP diastolic 52–108; PULSE 64–113; RESP 12–25
[2016-11-06] MEDS: INSULIN ASPART [NOVOLOG] 3 ML PEN SC SCH ×6 (01:00→20:46)
[2016-11-06] MEDS: PANTOPRAZOLE 40 MG INJ IV SCH ×2 (05:16→17:12)
[2016-11-06 06:14] LABS: RETICULOCYTE COUNT % 2.2 % (0.5-1.5)
[2016-11-06 06:17] LABS: PLATELET COUNT 226 10^3/UL (140-415)
[2016-11-06 06:27] LABS: IRON 34 ug/dl (35-150)
[2016-11-06 06:33] LABS: PROTIME 13.2 Sec (12.2-14.2)
[2016-11-06 06:34] LABS: ALBUMIN 2.3 g/dl (3.3-4.9); PARTIAL THROMBOPLASTIN TIME 39.5 Sec (25.0-35.0)
[2016-11-06 06:35] LABS: POTASSIUM 3.4 mmol/L (3.5-5.1)
[2016-11-06 06:36] LABS: CREATININE 2.32 mg/dl (0.61-1.24); THROMBIN TIME 15.5 SEC (13.8-19.1)
[2016-11-06 06:37] LABS: ALBUMIN/GLOBULIN RATIO 0.71; BILIRUBIN,INDIRECT 0.2 mg/dl (0-1.1); BILIRUBIN,TOTAL 0.2 mg/dl (0.2-1.3); CALCIUM 7.2 mg/dl (8.4-10.2); TOTAL PROTEIN 5.5 g/dl (6.1-8.1)
[2016-11-06 06:38] LABS: MAGNESIUM 2.2 mg/dl (1.7-2.5)
[2016-11-06 06:43] LABS: D-DIMER 2571.38 ng/ml (<460)
[2016-11-06 07:11] LABS: TOTAL IRON BINDING CAPACITY < 60 ug/dl (241-421)
--- NOTE | 2016-11-06 07:28 | CONS ---
Date/Time of Note Date/Time of Note DATE: 11/06/16 TIME: 07:26 Assessment/Plan Assessment/Plan Additional Assessment/Plan Assessment recommendations; 1. Patient admitted for anemia with source unknown. This was blood transfusion with stable hematocrit. Status post negative EGD and colonoscopy. 2. Significant thrombus cytopenia with marked interval improvement today. 3. Renal insufficiency. 4. Possible atrial fibrillation. Currently on amiodarone. 5. Leukocytosis with interval improvement as well. Continue current treatment. Patient can be transferred to the medical floor. We will sign off. Thanks for the referral. Consultation Date/Type/Reason Admit Date/Time Oct 30, 2016 at 08:00 Initial Consult Date 10/30/16 Type of Consultation: Pulmonary/critical care Referring Provider: ABBY RAMOS MD 24 HR Interval Summary Free Text/Dictation Patient condition is stable. Remains awake and alert. Has remained hemodynamically stable. Patient to be taken off intravenous amiodarone and switch over to enteral amiodarone and remains in sinus rhythm. Next General exam; elderly male, currently in no distress. Awake and alert. Exam/Review of Systems Vital Signs Vitals Vital Signs Date Time Temp Pulse Resp B/P Pulse Ox O2 Delivery O2 Flow Rate FiO2 11/06/16 06:00 81 22 162/82 100 11/06/16 04:00 98.6 11/06/16 02:55 2.0 11/05/16 21:00 Nasal Cannula 11/04/16 11:45 30 Intake and Output 11/05/16 11/05/16 11/06/16 15:00 23:00 07:00 Intake Total 320 ml 170 ml 30 ml Output Total 1065 ml 1090 ml 1070 ml Balance -745 ml -920 ml -1040 ml Exam H EENT exam; supple neck, no JVD. No lymphadenopathy. Midline trachea. No thyromegaly. Pharynx is clear. Patient has multiple carious teeth. Pupils are equal and reactive to light. Chest examination; clear to auscultation bilaterally. S1-S2 audible, no murmurs. Regular rhythm. Abdomen examination; soft, nondistended. No organomegaly. Bowel is audible. Extremity examination; no peripheral edema. Next STUDENT NURSE examination; no focal deficit. Results Result Diagram: 11/06/16 0530 11/06/16 0530 Results 24 hrs Laboratory Tests Test 11/05/16 08:37 11/05/16 12:55 11/05/16 18:28 11/05/16 20:18 Bedside Glucose 171 187 118 107 Test 11/06/16 00:59 11/06/16 05:15 11/06/16 05:30 Bedside Glucose 132 119 Absolute Reticulocyte Count 0.075 Activated Partial Thromboplast Time 39.5 H Alanine Aminotransferase (ALT/SGPT) 45 Albumin 2.3 L Albumin/Globulin Ratio 0.71 Alkaline Phosphatase 98 Anion Gap 9 Aspartate Amino Transf (AST/SGOT) 32 Blood Urea Nitrogen 25 H Calcium Level 7.2 L Carbon Dioxide Level 34 H Chloride Level 93 L Creatinine 2.32 H D-Dimer 2571.38 H D-Dimer Comment Direct Bilirubin 0.00 Fibrinogen 608.0 H Globulin 3.20 Glucose Level 127 INR International Normalized Ratio 1.00 Indirect Bilirubin 0.2 Iron Level 34 L Magnesium Level 2.2 Percent Iron Saturation Percent Reticulocyte Count 2.2 H Plasma Fibrin Degradation Products Pending Platelet Count 226 # Potassium Level 3.4 L Prothrombin Time 13.2 Prothrombin Time Ratio 1.0 Sodium Level 133 L Thrombin Time Pending Total Bilirubin 0.2 Total Iron Binding Capacity < 60 L Total Protein 5.5 L Medications Medications Current Medications Flumazenil (Romazicon) 0.2 mg Q1M PRN IV BENZODIAZEPINE OVERDOSE; Start at 05:00 Naloxone HCl (Narcan) 0.4 mg Q3M PRN IV DECREASED REPIRATORY RATE; Start at 05:00 Ondansetron HCl (Zofran Inj) 4 mg Q6H PRN IV NAUSEA AND/OR VOMITING; Start 06/08 at 05:00 Acetaminophen (Tylenol Liquid) 650 mg Q6H PRN PO PAIN LEVEL 1-3 OR FEVER; Start 10/30/16 at 05:00 Acetaminophen (Tylenol Tab) 650 mg Q6H PRN PO PAIN LEVEL 1-3 OR FEVER; Start at 05:00 Morphine Sulfate (morphine) 2 mg Q4H PRN IV PAIN LEVEL 7-10 Last administered on 11/04/16t 01:51; Admin Dose 2 MG; Start 10/30/16 at 05:00 Zolpidem Tartrate (Ambien) 5 mg QHS PRN PO INSOMNIA; Start 10/30/16 at 05:00 Docusate Sodium 100 mg 100 mg Q12H PRN PO CONSTIPATION; Start 10/30/16 at 05:00 Norepinephrine/ Dextrose (Levophed/D5W) 500 ml @ 1.87 mls/hr TITRATE IV ; Start 10/30/16 at 10:00 IV Flush (NS 10 ml) 10 ml PRN PRN IV IV PROTOCOL; Start 10/30/16 at 19:00 Acetaminophen (Tylenol Supp) 650 mg Q6H PRN [place] FEVER Last administered on 08:43; Admin Dose 650 MG; Start 10/31/16 at 09:00 Miscellaneous Information 1 ea NOTE XX ; Start 10/31/16 at 12:30 Glucose (Glutose) 15 gm Q15M PRN PO DECREASED GLUCOSE; Start 10/31/16 at 12:30 Glucose (Glutose) 22.5 gm Q15M PRN PO DECREASED GLUCOSE; Start 10/31/16 at 12: 30 Dextrose (D50w Syringe) 25 ml Q15M PRN IV DECREASED GLUCOSE; Start 10/31/16 at 12:30 Dextrose (D50w Syringe) 50 ml Q15M PRN IV DECREASED GLUCOSE; Start 10/31/16 at 12:30 Glucagon (Glucagen) 1 mg Q15M PRN IM DECREASED GLUCOSE; Start 10/31/16 at 12:30 Glucose (Glutose) 15 gm Q15M PRN BUCCAL DECREASED GLUCOSE; Start 10/31/16 at 12 :30 Insulin Aspart (Novolog Insulin Pen) NOVOLOG *MODERATE* ALGORI... Q4 SC Last administered on 11/05/16 12:59; Admin Dose 4 UNIT; Start 10/31/16 at 21:00 Hydralazine HCl 10 mg 10 mg Q4H PRN IV SBP GREATER THAN 170 Last administered on 11/05/16 15:52; Admin Dose 10 MG; Start 10/31/16 at 23:00 Propofol (Diprivan) 100 ml @ 1.95 mls/hr Q12H IV ; Start 11/01/16 at 10:30 Pantoprazole 40 mg 40 mg BID@06,18 IV Last administered on 11/06/16 05:16; Admin Dose 40 MG; Start 11/01/16 at 18:00 Ceftriaxone Sodium 50 ml @ 100 mls/hr Q24H IVPB Last administered on 16:30; Admin Dose 100 MLS/HR; Start 11/02/16 at 16:30 Dextrose/Sodium Chloride (D5-1/2ns) 1,000 ml @ 40 mls/hr Q24H IV Last administered on 11/05/16 13:46; Admin Dose 40 MLS/HR; Start 11/04/16 at 12:00 Amiodarone HCl (Cordarone) 200 mg TID PO Last administered on 11/05/16 20:22; Admin Dose 200 MG; Start 11/05/16 at 13:00 Clonidine HCl (Catapres-Tts 2 Patch) 1 patch Q7D TRANSDERM Last administered on 11/05/16 13:53; Admin Dose 1 PATCH; Start 11/05/16 at 12:30 SUJIT MAXWELL 17, 2017 07:28
[2016-11-06] MEDS: DEXTROSE 5%-0.45% NACL 1,000 ML IV SCH ×2 (07:34→09:49)
[2016-11-06] MEDS ORDERED: ALBUTEROL/IPRATROPIUM (NEB) 3 ML AMP HHN PRN (08:00)
[2016-11-06 08:16] LABS: ADD SCAN DIFF NO
--- NOTE | 2016-11-06 08:38 | CONS ---
Date/Time of Note Date/Time of Note DATE: 11/06/16 TIME: 08:35 Assessment/Plan Assessment/Plan Chief Complaint/Hosp Course The patient is a 62 year old male with pAFib, HTN, CVA, acute respiratory failure s/p extubation, UTI, with GIB s/p EGD and colonoscopy on 10/30/16 with likely bleeding source is between 2nd portion of duodenum and ileum (portion of gut not reachable with standard endoscopy). The antrum appeared thickened status post random biopsy showed showed chronic gastritis and benign lymphoid aggregates but no evidence of H. pylori and no evidence of intestinal metaplasia , dysplasia or malignancy. CT enterography showed 1. Small punctate focus of gas in the region of the medial duodenal bulb is likely a small diverticulum or normal, a duodenal ulcer is a consideration believed to be less likely. 2. The remainder of the gastrointestinal system is grossly normal without focal or diffuse bowel wall thickening nor abnormality to help explain the location of the patient's gastrointestinal bleeding, liquid stool is seen throughout the colon may correlate with diarrhea clinically. Plan for capsule endoscopy as outpatient. # Normocytic anemia, likely related to GIB, possible anemia of chronic inflammation or chronic kidney disease. - Hemoglobin currently fairly stable at 9.9, transfuse < 8. Hemoglobin stable at 10.2 today. - Iron panel suggests anemia of chronic inflammation, retic count inappropriately low; pending ferritin, Vitamin B12, folate, epo level - LDH elevated, will check haptoglobin # Leukocytosis, likely reactive, resolved today. ESR and CRP elevated at 90 and 6.9, respectively. # Thrombocytopenia, possibly due to infection or consumption, resolved. DIC does not suggest florid DIC at this time. Will continue to follow. Problems: Consultation Date/Type/Reason Admit Date/Time Oct 30, 2016 at 08:00 Initial Consult Date 11/05/16 Type of Consultation: Hematology Referring Provider: ABBY RAMOS MD 24 HR Interval Summary Free Text/Dictation No bleeding overnight per nurse. Patient had brown/green BM overnight. Exam/Review of Systems Vital Signs Vitals Vital Signs Date Time Temp Pulse Resp B/P Pulse Ox O2 Delivery O2 Flow Rate FiO2 11/06/16 06:00 81 22 162/82 100 11/06/16 04:00 98.6 11/06/16 02:55 2.0 11/05/16 21:00 Nasal Cannula 11/04/16 11:45 30 Intake and Output 11/05/16 11/05/16 11/06/16 15:00 23:00 07:00 Intake Total 320 ml 170 ml 30 ml Output Total 1065 ml 1090 ml 1070 ml Balance -745 ml -920 ml -1040 ml Exam Constitutional: alert Psych: no complaints Head: normocephalic Neck: supple Respiratory: clear to auscultation Cardiovascular: regular rate and rhythm Gastrointestinal: non-tender, soft Musculoskeletal: nl extremities to inspection Results Result Diagram: 11/06/16 0530 11/06/16 0530 Results 24 hrs Laboratory Tests Test 11/05/16 08:37 11/05/16 12:55 11/05/16 18:28 11/05/16 20:18 Bedside Glucose 171 187 118 107 Test 11/06/16 00:59 11/06/16 05:15 11/06/16 05:30 Bedside Glucose 132 119 Absolute Reticulocyte Count 0.075 Activated Partial Thromboplast Time 39.5 H Alanine Aminotransferase (ALT/SGPT) 45 Albumin 2.3 L Albumin/Globulin Ratio 0.71 Alkaline Phosphatase 98 Anion Gap 9 Aspartate Amino Transf (AST/SGOT) 32 Blood Urea Nitrogen 25 H Calcium Level 7.2 L Carbon Dioxide Level 34 H Chloride Level 93 L Creatinine 2.32 H D-Dimer 2571.38 H D-Dimer Comment Direct Bilirubin 0.00 Fibrinogen 608.0 H Globulin 3.20 Glucose Level 127 INR International Normalized Ratio 1.00 Indirect Bilirubin 0.2 Iron Level 34 L Magnesium Level 2.2 Percent Iron Saturation Percent Reticulocyte Count 2.2 H Plasma Fibrin Degradation Products Pending Platelet Count 226 # Potassium Level 3.4 L Prothrombin Time 13.2 Prothrombin Time Ratio 1.0 Sodium Level 133 L Thrombin Time Pending Total Bilirubin 0.2 Total Iron Binding Capacity < 60 L Total Protein 5.5 L Medications Medications Current Medications Flumazenil (Romazicon) 0.2 mg Q1M PRN IV BENZODIAZEPINE OVERDOSE; Start at 05:00 Naloxone HCl (Narcan) 0.4 mg Q3M PRN IV DECREASED REPIRATORY RATE; Start at 05:00 Ondansetron HCl (Zofran Inj) 4 mg Q6H PRN IV NAUSEA AND/OR VOMITING; Start 06/08 at 05:00 Acetaminophen (Tylenol Liquid) 650 mg Q6H PRN PO PAIN LEVEL 1-3 OR FEVER; Start 10/30/16 at 05:00 Acetaminophen (Tylenol Tab) 650 mg Q6H PRN PO PAIN LEVEL 1-3 OR FEVER; Start at 05:00 Morphine Sulfate (morphine) 2 mg Q4H PRN IV PAIN LEVEL 7-10 Last administered on 11/04/16 01:51; Admin Dose 2 MG; Start 10/30/16 at 05:00 Zolpidem Tartrate (Ambien) 5 mg QHS PRN PO INSOMNIA; Start 10/30/16 at 05:00 Docusate Sodium 100 mg 100 mg Q12H PRN PO CONSTIPATION; Start 10/30/16 at 05:00 Norepinephrine/ Dextrose (Levophed/D5W) 500 ml @ 1.87 mls/hr TITRATE IV ; Start 10/30/16 at 10:00 IV Flush (NS 10 ml) 10 ml PRN PRN IV IV PROTOCOL; Start 10/30/16 at 19:00 Acetaminophen (Tylenol Supp) 650 mg Q6H PRN [place] FEVER Last administered on 08:43; Admin Dose 650 MG; Start 10/31/16 at 09:00 Miscellaneous Information 1 ea NOTE XX ; Start 10/31/16 at 12:30 Glucose (Glutose) 15 gm Q15M PRN PO DECREASED GLUCOSE; Start 10/31/16 at 12:30 Glucose (Glutose) 22.5 gm Q15M PRN PO DECREASED GLUCOSE; Start 10/31/16 at 12: 30 Dextrose (D50w Syringe) 25 ml Q15M PRN IV DECREASED GLUCOSE; Start 10/31/16 at 12:30 Dextrose (D50w Syringe) 50 ml Q15M PRN IV DECREASED GLUCOSE; Start 10/31/16 at 12:30 Glucagon (Glucagen) 1 mg Q15M PRN IM DECREASED GLUCOSE; Start 10/31/16 at 12:30 Glucose (Glutose) 15 gm Q15M PRN BUCCAL DECREASED GLUCOSE; Start 10/31/16 at 12 :30 Insulin Aspart (Novolog Insulin Pen) NOVOLOG *MODERATE* ALGORI... Q4 SC Last administered on 11/05/16 12:59; Admin Dose 4 UNIT; Start 10/31/16 at 21:00 Hydralazine HCl (Apresoline) 10 mg Q4H PRN IV SBP GREATER THAN 170 Last administered on 11/05/16 15:52; Admin Dose 10 MG; Start 10/31/16 at 23:00 Pantoprazole 40 mg 40 mg BID@06,18 IV Last administered on 11/06/16 05:16; Admin Dose 40 MG; Start 11/01/16 at 18:00 Ceftriaxone Sodium 50 ml @ 100 mls/hr Q24H IVPB Last administered on 16:30; Admin Dose 100 MLS/HR; Start 11/02/16 at 16:30 Dextrose/Sodium Chloride (D5-1/2ns) 1,000 ml @ 40 mls/hr Q24H IV Last administered on 11/06/16 07:34; Admin Dose 40 MLS/HR; Start 11/04/16 at 12:00 Amiodarone HCl (Cordarone) 200 mg TID PO Last administered on 11/05/16 20:22; Admin Dose 200 MG; Start 11/05/16 at 13:00 Clonidine HCl (Catapres-Tts 2 Patch) 1 patch Q7D TRANSDERM Last administered on 11/05/16 13:53; Admin Dose 1 PATCH; Start 11/05/16 at 12:30 TOELIZABETH MD Nov 06, 2016 08:38 ELIZABETH CHURCH MD Nov 06, 2016 08:38
[2016-11-06 09:04] LABS: FIBRIN SPLIT PRODUCT <10 ug/ml (<10)
--- NOTE | 2016-11-06 09:14 | PN ---
Date/Time of Note Date/Time of Note DATE: 11/06/16 TIME: 09:10 Assessment/Plan VTE Prophylaxis VTE Prophylaxis Intervention: SCD's Lines/Catheters IV Catheter Type (from Nrs): A Line Central line still needed: No Urinary Cath still in place: Yes Reason Cath still needed: urinary retention Assessment/Plan Chief Complaint/Hosp Course 1. GI bleed, no more apparent bleeding. Pt is off drips, will be transferrred telemetry service 2. Pt is extubated, on 2 l/min nasal cannula 2. Temperature afebrile 3. DVT prophylaxis, GI ulcer prevention engaged 4. IV nutrition, continue oral nutrition as tolerated 5. PT evaluation, DTI coccyx per nursing care Care was coordinated with Dr Cheema and nursing staff Problems: Subjective 24 Hr Interval Summary Constitutional: improved Eyes: no complaints ENT: no complaints Respiratory: no complaints Cardiovascular: no complaints Gastrointestinal: no complaints Genitourinary: no complaints Musculoskeletal: no complaints Skin: no complaints Exam/Review of Systems Vital Signs Vitals Vital Signs Date Time Temp Pulse Resp B/P Pulse Ox O2 Delivery O2 Flow Rate FiO2 11/06/16 06:00 81 22 162/82 100 11/06/16 04:00 98.6 11/06/16 02:55 2.0 11/05/16 21:00 Nasal Cannula 11/04/16 11:45 30 Intake and Output 11/05/16 11/05/16 11/06/16 15:00 23:00 07:00 Intake Total 320 ml 170 ml 30 ml Output Total 1065 ml 1090 ml 1070 ml Balance -745 ml -920 ml -1040 ml Exam Constitutional: alert, oriented Psych: nl mood/affect, no complaints Head: atraumatic, normocephalic Eyes: EOMI, nl conjunctiva ENMT: nl external ears & nose Neck: supple Respiratory: clear to auscultation, diminished breath sounds (bilaterally) Cardiovascular: regular rate and rhythm Gastrointestinal: soft Genitourinary - Male: nl penis Musculoskeletal: nl extremities to inspection Extremities: normal pulses Skin: nl turgor Results Result Diagram: 11/06/16 0530 11/06/16 0530 Results 24 hrs Laboratory Tests Test 11/05/16 12:55 11/05/16 18:28 11/05/16 20:18 11/06/16 00:59 Bedside Glucose 187 118 107 132 Test 11/06/16 05:15 11/06/16 05:30 Bedside Glucose 119 Absolute Reticulocyte Count 0.075 Activated Partial Thromboplast Time 39.5 H Alanine Aminotransferase (ALT/SGPT) 45 Albumin 2.3 L Albumin/Globulin Ratio 0.71 Alkaline Phosphatase 98 Anion Gap 9 Aspartate Amino Transf (AST/SGOT) 32 Blood Urea Nitrogen 25 H Calcium Level 7.2 L Carbon Dioxide Level 34 H Chloride Level 93 L Creatinine 2.32 H D-Dimer 2571.38 H D-Dimer Comment Direct Bilirubin 0.00 Fibrinogen 608.0 H Globulin 3.20 Glucose Level 127 INR International Normalized Ratio 1.00 Indirect Bilirubin 0.2 Iron Level 34 L Magnesium Level 2.2 Percent Iron Saturation Percent Reticulocyte Count 2.2 H Plasma Fibrin Degradation Products <10 Platelet Count 226 # Potassium Level 3.4 L Prothrombin Time 13.2 Prothrombin Time Ratio 1.0 Sodium Level 133 L Thrombin Time 15.5 Total Bilirubin 0.2 Total Iron Binding Capacity < 60 L Total Protein 5.5 L Medications Medications Current Medications Flumazenil (Romazicon) 0.2 mg Q1M PRN IV BENZODIAZEPINE OVERDOSE; Start at 05:00 Naloxone HCl (Narcan) 0.4 mg Q3M PRN IV DECREASED REPIRATORY RATE; Start at 05:00 Ondansetron HCl (Zofran Inj) 4 mg Q6H PRN IV NAUSEA AND/OR VOMITING; Start 06/08 at 05:00 Acetaminophen (Tylenol Liquid) 650 mg Q6H PRN PO PAIN LEVEL 1-3 OR FEVER; Start 10/30/16 at 05:00 Acetaminophen (Tylenol Tab) 650 mg Q6H PRN PO PAIN LEVEL 1-3 OR FEVER; Start at 05:00 Morphine Sulfate (morphine) 2 mg Q4H PRN IV PAIN LEVEL 7-10 Last administered on 11/04/16t 01:51; Admin Dose 2 MG; Start 10/30/16 at 05:00 Zolpidem Tartrate (Ambien) 5 mg QHS PRN PO INSOMNIA; Start 10/30/16 at 05:00 Docusate Sodium 100 mg 100 mg Q12H PRN PO CONSTIPATION; Start 10/30/16 at 05:00 Norepinephrine/ Dextrose (Levophed/D5W) 500 ml @ 1.87 mls/hr TITRATE IV ; Start 10/30/16 at 10:00 IV Flush (NS 10 ml) 10 ml PRN PRN IV IV PROTOCOL; Start 10/30/16 at 19:00 Acetaminophen (Tylenol Supp) 650 mg Q6H PRN [place] FEVER Last administered on 08:43; Admin Dose 650 MG; Start 10/31/16 at 09:00 Miscellaneous Information 1 ea NOTE XX ; Start 10/31/16 at 12:30 Glucose (Glutose) 15 gm Q15M PRN PO DECREASED GLUCOSE; Start 10/31/16 at 12:30 Glucose (Glutose) 22.5 gm Q15M PRN PO DECREASED GLUCOSE; Start 10/31/16 at 12: 30 Dextrose (D50w Syringe) 25 ml Q15M PRN IV DECREASED GLUCOSE; Start 10/31/16 at 12:30 Dextrose (D50w Syringe) 50 ml Q15M PRN IV DECREASED GLUCOSE; Start 10/31/16 at 12:30 Glucagon (Glucagen) 1 mg Q15M PRN IM DECREASED GLUCOSE; Start 10/31/16 at 12:30 Glucose (Glutose) 15 gm Q15M PRN BUCCAL DECREASED GLUCOSE; Start 10/31/16 at 12 :30 Insulin Aspart (Novolog Insulin Pen) NOVOLOG *MODERATE* ALGORI... Q4 SC Last administered on 11/05/16 12:59; Admin Dose 4 UNIT; Start 10/31/16 at 21:00 Hydralazine HCl (Apresoline) 10 mg Q4H PRN IV SBP GREATER THAN 170 Last administered on 11/05/16 15:52; Admin Dose 10 MG; Start 10/31/16 at 23:00 Pantoprazole 40 mg 40 mg BID@06,18 IV Last administered on 11/06/16 05:16; Admin Dose 40 MG; Start 11/01/16 at 18:00 Ceftriaxone Sodium 50 ml @ 100 mls/hr Q24H IVPB Last administered on 16:30; Admin Dose 100 MLS/HR; Start 11/02/16 at 16:30 Dextrose/Sodium Chloride (D5-1/2ns) 1,000 ml @ 40 mls/hr Q24H IV Last administered on 11/06/16 07:34; Admin Dose 40 MLS/HR; Start 11/04/16 at 12:00 Amiodarone HCl (Cordarone) 200 mg TID PO Last administered on 11/05/16 20:22; Admin Dose 200 MG; Start 11/05/16 at 13:00 Clonidine HCl (Catapres-Tts 2 Patch) 1 patch Q7D TRANSDERM Last administered on 11/05/16 13:53; Admin Dose 1 PATCH; Start 11/05/16 at 12:30 CHELSIE HERNÁNDEZ Nov 06, 2016 09:14
[2016-11-06 09:30] LABS: BASOPHILS % 0.4 % (0.0-2.0); EOSINOPHILS % 9.4 % (0.0-7.0); HEMATOCRIT 30.3 % (42.0-52.0); HEMOGLOBIN 10.2 g/dl (14.0-18.0); LYMPHOCYTES # 1.4 10^3/ul (0.8-2.9); LYMPHOCYTES % 13.3 % (15.0-51.0); MEAN CORPUSCULAR HGB CONC 33.7 g/dl (32.0-37.0); MEAN CORPUSCULAR VOLUME 89.1 fl (82.0-101.0); MEAN PLATELET VOLUME 11.3 fl (7.4-10.4); MONOCYTE # 0.8 10^3/ul (0.3-0.9); MONOCYTES % 7.9 % (0.0-11.0); PLATELET COUNT 235 10^3/UL (140-415); RED CELL DISTRIBUTION WIDTH 13.7 % (11.5-14.5); WHITE BLOOD COUNT 10.4 10^3/ul (4.8-10.8)
[2016-11-06] MEDS: AMIODARONE 200 MG TAB PO SCH ×3 (09:43→20:46)
[2016-11-06] MEDS: hydrALAzine 20 MG INJ IV PRN (09:43)
--- NOTE | 2016-11-06 10:49 | PN ---
DATE: 11/06/2016 HISTORY OF PRESENT ILLNESS: The patient is clinically stable with continued progressive improvement . His CT enterography yesterday did not show any obvious duodenal or small bowel source for his GI bleed. His abdominal examination is benign and he is tolerating a pureed diet. LABORATORY DATA: Hematocrit is 30 with a white count of 10,400. BUN has come down to 25 and creati nine is down to 2.32. IMPRESSION: No further bleed. Clinically improving in all parameters. PLAN: Continue medical management. Dictated By: PALOMO HUGGINS/INOCENCIO Conf#: [id number] DID#: [id number]
[2016-11-06 11:32] LABS: C-REACTIVE PROTEIN 6.9 mg/dl (0.0-0.9)
[2016-11-06 11:34] LABS: LACTATE DEHYDROGENASE 663 IU/L (313-618)
--- NOTE | 2016-11-06 11:49 | CONS ---
Date/Time of Note Date/Time of Note DATE: 11/06/16 TIME: 11:47 Assessment/Plan Assessment/Plan Additional Assessment/Plan IMPRESSION: 1. Recurrent upper gastrointestinal bleeding, appears to be coming from the upper gastrointestinal tract, probably proximal small bowel because it is sort of a blackish in color.ht.stable bleeding has stopped. 2. Anemia. 3. Thrombocytopenia, which is corrected. 4. Urinary tract infection, responded well to antibiotic. 5. Status post extubation. 6. Hypertension by history. 7. Renal failure. Plan continue PPI will do capsule endoscopy as OP Consultation Date/Type/Reason Admit Date/Time Oct 30, 2016 at 08:00 Initial Consult Date 11/05/16 Type of Consultation: Hematology Referring Provider: ABBY RAMOS MD 24 HR Interval Summary Free Text/Dictation no further bleeding Constitutional: disoriented, no complaints Exam/Review of Systems Vital Signs Vitals Vital Signs Date Time Temp Pulse Resp B/P Pulse Ox O2 Delivery O2 Flow Rate FiO2 11/06/16 11:00 113 15 136/102 93 Nasal Cannula 11/06/16 08:00 3.0 11/06/16 08:00 97.8 11/04/16 11:45 30 Intake and Output 11/05/16 11/05/16 11/06/16 15:00 23:00 07:00 Intake Total 320 ml 170 ml 30 ml Output Total 1065 ml 1090 ml 1170 ml Balance -745 ml -920 ml -1140 ml Exam Constitutional: alert, oriented, well developed Psych: nl mood/affect, no complaints Head: atraumatic, normocephalic Eyes: EOMI, PERRL, nl conjunctiva, nl lids, nl sclera ENMT: nl external ears & nose, nl lips & teeth, nl nasal mucosa & septum Neck: non-tender, supple Respiratory: clear to auscultation, normal air movement Cardiovascular: nl pulses, regular rate and rhythm Gastrointestinal: nl liver, spleen, non-tender, soft Musculoskeletal: nl extremities to inspection, nl gait and stance Extremities: normal pulses Neurological: [employer] II-XII intact, nl mental status, nl speech, nl strength Skin: nl turgor, No rash or lesions Lymph: nl lymph nodes Results Result Diagram: 11/06/16 0530 11/06/16 0530 Results 24 hrs Laboratory Tests Test 11/05/16 12:55 11/05/16 18:28 11/05/16 20:18 11/06/16 00:59 Bedside Glucose 187 118 107 132 Test 11/06/16 05:15 11/06/16 05:30 11/06/16 09:53 Bedside Glucose 119 122 Absolute Reticulocyte Count 0.075 Activated Partial Thromboplast Time 39.5 H Alanine Aminotransferase (ALT/SGPT) 45 Albumin 2.3 L Albumin/Globulin Ratio 0.71 Alkaline Phosphatase 98 Anion Gap 9 Aspartate Amino Transf (AST/SGOT) 32 Basophils # 0.0 Basophils % 0.4 Blood Urea Nitrogen 25 H C-Reactive Protein 6.9 H Calcium Level 7.2 L Carbon Dioxide Level 34 H Chloride Level 93 L Creatinine 2.32 H D-Dimer 2571.38 H D-Dimer Comment Direct Bilirubin 0.00 Eosinophils # 1.0 H Eosinophils % 9.4 H Erythrocyte Sedimentation Rate 90 H Ferritin Pending Fibrinogen 608.0 H Folate Pending Globulin 3.20 Glucose Level 127 Hematocrit 30.3 L Hemoglobin 10.2 L INR International Normalized Ratio 1.00 Indirect Bilirubin 0.2 Iron Level 34 L Lactate Dehydrogenase 663 H Lymphocytes # 1.4 Lymphocytes % 13.3 L Magnesium Level 2.2 Mean Corpuscular Hemoglobin 30.0 Mean Corpuscular Hemoglobin Concent 33.7 Mean Corpuscular Volume 89.1 Mean Platelet Volume 11.3 H Monocytes # 0.8 Monocytes % 7.9 Neutrophils # 7.0 Neutrophils % 68.0 Nucleated Red Blood Cells # 0.0 Nucleated Red Blood Cells % 0.0 Percent Iron Saturation Percent Reticulocyte Count 2.2 H Plasma Fibrin Degradation Products <10 Platelet Count 235 # Potassium Level 3.4 L Prothrombin Time 13.2 Prothrombin Time Ratio 1.0 Red Blood Count 3.40 L Red Cell Distribution Width 13.7 Sodium Level 133 L Thrombin Time 15.5 Total Bilirubin 0.2 Total Iron Binding Capacity < 60 L Total Protein 5.5 L Vitamin B12 Level Pending White Blood Count 10.4 Medications Medications Current Medications Flumazenil (Romazicon) 0.2 mg Q1M PRN IV BENZODIAZEPINE OVERDOSE; Start at 05:00 Naloxone HCl (Narcan) 0.4 mg Q3M PRN IV DECREASED REPIRATORY RATE; Start at 05:00 Ondansetron HCl (Zofran Inj) 4 mg Q6H PRN IV NAUSEA AND/OR VOMITING; Start 06/08 at 05:00 Acetaminophen (Tylenol Liquid) 650 mg Q6H PRN PO PAIN LEVEL 1-3 OR FEVER; Start 10/30/16 at 05:00 Acetaminophen (Tylenol Tab) 650 mg Q6H PRN PO PAIN LEVEL 1-3 OR FEVER; Start at 05:00 Morphine Sulfate (morphine) 2 mg Q4H PRN IV PAIN LEVEL 7-10 Last administered on 11/04/16 01:51; Admin Dose 2 MG; Start 10/30/16 at 05:00 Zolpidem Tartrate (Ambien) 5 mg QHS PRN PO INSOMNIA; Start 10/30/16 at 05:00 Docusate Sodium 100 mg 100 mg Q12H PRN PO CONSTIPATION; Start 10/30/16 at 05:00 Norepinephrine/ Dextrose (Levophed/D5W) 500 ml @ 1.87 mls/hr TITRATE IV ; Start 10/30/16 at 10:00 IV Flush (NS 10 ml) 10 ml PRN PRN IV IV PROTOCOL; Start 10/30/16 at 19:00 Acetaminophen (Tylenol Supp) 650 mg Q6H PRN [place] FEVER Last administered on 08:43; Admin Dose 650 MG; Start 10/31/16 at 09:00 Miscellaneous Information 1 ea NOTE XX ; Start 10/31/16 at 12:30 Glucose (Glutose) 15 gm Q15M PRN PO DECREASED GLUCOSE; Start 10/31/16 at 12:30 Glucose (Glutose) 22.5 gm Q15M PRN PO DECREASED GLUCOSE; Start 10/31/16 at 12: 30 Dextrose (D50w Syringe) 25 ml Q15M PRN IV DECREASED GLUCOSE; Start 10/31/16 at 12:30 Dextrose (D50w Syringe) 50 ml Q15M PRN IV DECREASED GLUCOSE; Start 10/31/16 at 12:30 Glucagon (Glucagen) 1 mg Q15M PRN IM DECREASED GLUCOSE; Start 10/31/16 at 12:30 Glucose (Glutose) 15 gm Q15M PRN BUCCAL DECREASED GLUCOSE; Start 10/31/16 at 12 :30 Insulin Aspart (Novolog Insulin Pen) NOVOLOG *MODERATE* ALGORI... Q4 SC Last administered on 11/05/16 12:59; Admin Dose 4 UNIT; Start 10/31/16 at 21:00 Hydralazine HCl (Apresoline) 10 mg Q4H PRN IV SBP GREATER THAN 170 Last administered on 11/06/16 09:43; Admin Dose 10 MG; Start 10/31/16 at 23:00 Pantoprazole 40 mg 40 mg BID@06,18 IV Last administered on 11/06/16 05:16; Admin Dose 40 MG; Start 11/01/16 at 18:00 Ceftriaxone Sodium 50 ml @ 100 mls/hr Q24H IVPB Last administered on 16:30; Admin Dose 100 MLS/HR; Start 11/02/16 at 16:30 Dextrose/Sodium Chloride (D5-1/2ns) 1,000 ml @ 40 mls/hr Q24H IV Last administered on 11/06/16 09:49; Admin Dose 40 MLS/HR; Start 11/04/16 at 12:00 Amiodarone HCl (Cordarone) 200 mg TID PO Last administered on 11/06/16 09:43; Admin Dose 200 MG; Start 11/05/16 at 13:00 Clonidine HCl (Catapres-Tts 2 Patch) 1 patch Q7D TRANSDERM Last administered on 11/05/16 13:53; Admin Dose 1 PATCH; Start 11/05/16 at 12:30 JEFRY CERNA MD Nov 06, 2016 11:49
[2016-11-06 12:43] LABS: FOLATE 7.8 ng/ml (2.8-20.0)
--- NOTE | 2016-11-06 13:26 | CONS ---
Date/Time of Note Date/Time of Note DATE: 11/06/16 TIME: 13:22 Assessment/Plan Assessment/Plan Chief Complaint/Hosp Course IMPRESSION: 1. Paroxysmal atrial fibrillation-in SR on IV amio 2. Hypertension. 3. Abnormal electrocardiogram, assess for acute coronary syndrome.-mildly positive troponin 4. Right bundle branch block pattern. 5. Cerebrovascular accident, question etiology, likely related to paroxysmal atrial fibrillation.-s/p TTE with bubble study 11/04 negative for definite PFO/ ASD 6. Encephalopathy. 7. Gastrointestinal bleed with ongoing GI evaluation. 8. Possible urinary tract infection. 9. Renal failure. 10. Hyponatremia. 11. Coagulopathy, mild. 12. Anemia. 13. Leukocytosis. Recc: -Tele -Continue PO amio as tolerated -Start BB to improve BP control -continue clonidine TTS -Continue abx's -Ongoing Neuro eval -Follow hgb closely Problems: Consultation Date/Type/Reason Admit Date/Time Oct 30, 2016 at 08:00 Initial Consult Date 11/03/16 Type of Consultation: Cardiology Reason for Consultation PAF Referring Provider: ABBY RAMOS MD Exam/Review of Systems Vital Signs Vitals Vital Signs Date Time Temp Pulse Resp B/P Pulse Ox O2 Delivery O2 Flow Rate FiO2 11/06/16 11:00 113 15 136/102 93 Nasal Cannula 11/06/16 08:00 3.0 11/06/16 08:00 97.8 11/04/16 11:45 30 Intake and Output 11/05/16 11/05/16 11/06/16 15:00 23:00 07:00 Intake Total 320 ml 170 ml 30 ml Output Total 1065 ml 1090 ml 1170 ml Balance -745 ml -920 ml -1140 ml Exam Review of Systems: CONSTITUTIONAL: No fevers, chills. PULMONARY: No sob CARDIOVASCULAR: No chest pain/palpitations GASTROINTESTINAL: No nausea/vomiting. GENITOURINARY: No hematuria/dysuria. MUSCULOSKELETAL: No myagias/arthalgias. PSYCHIATRIC: The patient denies depression. NEUROLOGIC: No weakness Constitutional: other (sleeping) Psych: no complaints Head: normocephalic ENMT: mucosa pink and moist Neck: jvd (9 cm water), supple Respiratory: diminished breath sounds (at bases/B) Cardiovascular: regular rate and rhythm Gastrointestinal: non-tender, soft Musculoskeletal: muscle tone (normal) Extremities: edema (trace/B) Neurological: other (No focal deficits) Results Result Diagram: 11/06/16 0530 11/06/16 0530 Results 24 hrs Laboratory Tests Test 11/05/16 18:28 11/05/16 20:18 11/06/16 00:59 11/06/16 05:15 Bedside Glucose 118 107 132 119 Test 11/06/16 05:30 11/06/16 09:53 11/06/16 12:24 Absolute Reticulocyte Count 0.075 Activated Partial Thromboplast Time 39.5 H Alanine Aminotransferase (ALT/SGPT) 45 Albumin 2.3 L Albumin/Globulin Ratio 0.71 Alkaline Phosphatase 98 Anion Gap 9 Aspartate Amino Transf (AST/SGOT) 32 Basophils # 0.0 Basophils % 0.4 Blood Urea Nitrogen 25 H C-Reactive Protein 6.9 H Calcium Level 7.2 L Carbon Dioxide Level 34 H Chloride Level 93 L Creatinine 2.32 H D-Dimer 2571.38 H D-Dimer Comment Direct Bilirubin 0.00 Eosinophils # 1.0 H Eosinophils % 9.4 H Erythrocyte Sedimentation Rate 90 H Ferritin 309.0 H Fibrinogen 608.0 H Folate 7.8 Globulin 3.20 Glucose Level 127 Hematocrit 30.3 L Hemoglobin 10.2 L INR International Normalized Ratio 1.00 Indirect Bilirubin 0.2 Iron Level 34 L Lactate Dehydrogenase 663 H Lymphocytes # 1.4 Lymphocytes % 13.3 L Magnesium Level 2.2 Mean Corpuscular Hemoglobin 30.0 Mean Corpuscular Hemoglobin Concent 33.7 Mean Corpuscular Volume 89.1 Mean Platelet Volume 11.3 H Monocytes # 0.8 Monocytes % 7.9 Neutrophils # 7.0 Neutrophils % 68.0 Nucleated Red Blood Cells # 0.0 Nucleated Red Blood Cells % 0.0 Percent Iron Saturation Percent Reticulocyte Count 2.2 H Plasma Fibrin Degradation Products <10 Platelet Count 235 # Potassium Level 3.4 L Prothrombin Time 13.2 Prothrombin Time Ratio 1.0 Red Blood Count 3.40 L Red Cell Distribution Width 13.7 Sodium Level 133 L Thrombin Time 15.5 Total Bilirubin 0.2 Total Iron Binding Capacity < 60 L Total Protein 5.5 L Vitamin B12 Level > 1000 H White Blood Count 10.4 Bedside Glucose 122 161 Medications Medications Current Medications Flumazenil (Romazicon) 0.2 mg Q1M PRN IV BENZODIAZEPINE OVERDOSE; Start at 05:00 Naloxone HCl (Narcan) 0.4 mg Q3M PRN IV DECREASED REPIRATORY RATE; Start at 05:00 Ondansetron HCl (Zofran Inj) 4 mg Q6H PRN IV NAUSEA AND/OR VOMITING; Start 06/08 at 05:00 Acetaminophen (Tylenol Liquid) 650 mg Q6H PRN PO PAIN LEVEL 1-3 OR FEVER; Start 10/30/16 at 05:00 Acetaminophen (Tylenol Tab) 650 mg Q6H PRN PO PAIN LEVEL 1-3 OR FEVER; Start at 05:00 Morphine Sulfate (morphine) 2 mg Q4H PRN IV PAIN LEVEL 7-10 Last administered on 11/04/16 01:51; Admin Dose 2 MG; Start 10/30/16 at 05:00 Zolpidem Tartrate (Ambien) 5 mg QHS PRN PO INSOMNIA; Start 10/30/16 at 05:00 Docusate Sodium 100 mg 100 mg Q12H PRN PO CONSTIPATION; Start 10/30/16 at 05:00 Norepinephrine/ Dextrose (Levophed/D5W) 500 ml @ 1.87 mls/hr TITRATE IV ; Start 10/30/16 at 10:00 IV Flush (NS 10 ml) 10 ml PRN PRN IV IV PROTOCOL; Start 10/30/16 at 19:00 Acetaminophen (Tylenol Supp) 650 mg Q6H PRN [place] FEVER Last administered on 08:43; Admin Dose 650 MG; Start 10/31/16 at 09:00 Miscellaneous Information 1 ea NOTE XX ; Start 10/31/16 at 12:30 Glucose (Glutose) 15 gm Q15M PRN PO DECREASED GLUCOSE; Start 10/31/16 at 12:30 Glucose (Glutose) 22.5 gm Q15M PRN PO DECREASED GLUCOSE; Start 10/31/16 at 12: 30 Dextrose (D50w Syringe) 25 ml Q15M PRN IV DECREASED GLUCOSE; Start 10/31/16 at 12:30 Dextrose (D50w Syringe) 50 ml Q15M PRN IV DECREASED GLUCOSE; Start 10/31/16 at 12:30 Glucagon (Glucagen) 1 mg Q15M PRN IM DECREASED GLUCOSE; Start 10/31/16 at 12:30 Glucose (Glutose) 15 gm Q15M PRN BUCCAL DECREASED GLUCOSE; Start 10/31/16 at 12 :30 Insulin Aspart (Novolog Insulin Pen) NOVOLOG *MODERATE* ALGORI... Q4 SC Last administered on 11/06/16 12:49; Admin Dose 2 UNIT; Start 10/31/16 at 21:00 Hydralazine HCl (Apresoline) 10 mg Q4H PRN IV SBP GREATER THAN 170 Last administered on 11/06/16 09:43; Admin Dose 10 MG; Start 10/31/16 at 23:00 Pantoprazole 40 mg 40 mg BID@06,18 IV Last administered on 11/06/16 05:16; Admin Dose 40 MG; Start 11/01/16 at 18:00 Ceftriaxone Sodium 50 ml @ 100 mls/hr Q24H IVPB Last administered on 16:30; Admin Dose 100 MLS/HR; Start 11/02/16 at 16:30 Dextrose/Sodium Chloride (D5-1/2ns) 1,000 ml @ 40 mls/hr Q24H IV Last administered on 11/06/16 09:49; Admin Dose 40 MLS/HR; Start 11/04/16 at 12:00 Amiodarone HCl (Cordarone) 200 mg TID PO Last administered on 11/06/16 12:40; Admin Dose 200 MG; Start 11/05/16 at 13:00 Clonidine HCl (Catapres-Tts 2 Patch) 1 patch Q7D TRANSDERM Last administered on 11/05/16 13:53; Admin Dose 1 PATCH; Start 11/05/16 at 12:30 LESLI SHEA 17, 2017 13:26
--- NOTE | 2016-11-06 14:19 | CONS ---
Date/Time of Note Date/Time of Note DATE: 11/06/16 TIME: 14:16 Assessment/Plan Assessment/Plan Chief Complaint/Hosp Course SUBJECTIVE: No acute changes. Awake, confused, looks comfortable, no fevers INDWELLINGS: left upper extremity PICC line placed on October 30 Flores. MICROBIOLOGY: Urine culture on admission grew E. coli. ANTIMICROBIALS: IV Rocephin. PHYSICAL EXAMINATION: GENERAL: Fragile, elderly man who is lying comfortably in bed. HEENT: Head atraumatic, normocephalic. Sclerae anicteric. Buccal mucosa dry. NECK: Supple, trachea midline. CHEST: Rise symmetrical. Breath sounds diminished to bases. HEART: S1, S2. ABDOMEN: Soft, bowel tones present. EXTREMITIES: Without cyanosis. ASSESSMENT: 1. S/p acute respiratory failure==> extubated. 2. Urinary tract infection. 3. Acute anemia. 4. Persistent leukocytosis, likely reactive. PLAN: Remains stable post extubation. Continue abx, aspiration precautions, pending tx o tele. DW staff Problems: Consultation Date/Type/Reason Admit Date/Time Oct 30, 2016 at 08:00 Initial Consult Date 11/03/16 Type of Consultation: id Referring Provider: ABBY RAMOS MD Exam/Review of Systems Vital Signs Vitals Vital Signs Date Time Temp Pulse Resp B/P Pulse Ox O2 Delivery O2 Flow Rate FiO2 11/06/16 14:00 88 15 146/70 100 Nasal Cannula 11/06/16 12:00 98.0 11/06/16 08:00 3.0 11/04/16 11:45 30 Intake and Output 11/05/16 11/05/16 11/06/16 15:00 23:00 07:00 Intake Total 320 ml 170 ml 30 ml Output Total 1065 ml 1090 ml 1170 ml Balance -745 ml -920 ml -1140 ml Results Result Diagram: 11/06/16 0530 11/06/16 0530 Results 24 hrs Laboratory Tests Test 11/05/16 18:28 11/05/16 20:18 11/06/16 00:59 11/06/16 05:15 Bedside Glucose 118 107 132 119 Test 11/06/16 05:30 11/06/16 09:53 11/06/16 12:24 Absolute Reticulocyte Count 0.075 Activated Partial Thromboplast Time 39.5 H Alanine Aminotransferase (ALT/SGPT) 45 Albumin 2.3 L Albumin/Globulin Ratio 0.71 Alkaline Phosphatase 98 Anion Gap 9 Aspartate Amino Transf (AST/SGOT) 32 Basophils # 0.0 Basophils % 0.4 Blood Urea Nitrogen 25 H C-Reactive Protein 6.9 H Calcium Level 7.2 L Carbon Dioxide Level 34 H Chloride Level 93 L Creatinine 2.32 H D-Dimer 2571.38 H D-Dimer Comment Direct Bilirubin 0.00 Eosinophils # 1.0 H Eosinophils % 9.4 H Erythrocyte Sedimentation Rate 90 H Ferritin 309.0 H Fibrinogen 608.0 H Folate 7.8 Globulin 3.20 Glucose Level 127 Hematocrit 30.3 L Hemoglobin 10.2 L INR International Normalized Ratio 1.00 Indirect Bilirubin 0.2 Iron Level 34 L Lactate Dehydrogenase 663 H Lymphocytes # 1.4 Lymphocytes % 13.3 L Magnesium Level 2.2 Mean Corpuscular Hemoglobin 30.0 Mean Corpuscular Hemoglobin Concent 33.7 Mean Corpuscular Volume 89.1 Mean Platelet Volume 11.3 H Monocytes # 0.8 Monocytes % 7.9 Neutrophils # 7.0 Neutrophils % 68.0 Nucleated Red Blood Cells # 0.0 Nucleated Red Blood Cells % 0.0 Percent Iron Saturation Percent Reticulocyte Count 2.2 H Plasma Fibrin Degradation Products <10 Platelet Count 235 # Potassium Level 3.4 L Prothrombin Time 13.2 Prothrombin Time Ratio 1.0 Red Blood Count 3.40 L Red Cell Distribution Width 13.7 Sodium Level 133 L Thrombin Time 15.5 Total Bilirubin 0.2 Total Iron Binding Capacity < 60 L Total Protein 5.5 L Vitamin B12 Level > 1000 H White Blood Count 10.4 Bedside Glucose 122 161 Medications Medications Current Medications Flumazenil (Romazicon) 0.2 mg Q1M PRN IV BENZODIAZEPINE OVERDOSE; Start at 05:00 Naloxone HCl (Narcan) 0.4 mg Q3M PRN IV DECREASED REPIRATORY RATE; Start at 05:00 Ondansetron HCl (Zofran Inj) 4 mg Q6H PRN IV NAUSEA AND/OR VOMITING; Start 06/08 at 05:00 Acetaminophen (Tylenol Liquid) 650 mg Q6H PRN PO PAIN LEVEL 1-3 OR FEVER; Start 10/30/16 at 05:00 Acetaminophen (Tylenol Tab) 650 mg Q6H PRN PO PAIN LEVEL 1-3 OR FEVER; Start at 05:00 Morphine Sulfate (morphine) 2 mg Q4H PRN IV PAIN LEVEL 7-10 Last administered on 11/04/16 01:51; Admin Dose 2 MG; Start 10/30/16 at 05:00 Zolpidem Tartrate (Ambien) 5 mg QHS PRN PO INSOMNIA; Start 10/30/16 at 05:00 Docusate Sodium 100 mg 100 mg Q12H PRN PO CONSTIPATION; Start 10/30/16 at 05:00 Norepinephrine/ Dextrose (Levophed/D5W) 500 ml @ 1.87 mls/hr TITRATE IV ; Start 10/30/16 at 10:00 IV Flush (NS 10 ml) 10 ml PRN PRN IV IV PROTOCOL; Start 10/30/16 at 19:00 Acetaminophen (Tylenol Supp) 650 mg Q6H PRN [place] FEVER Last administered on 08:43; Admin Dose 650 MG; Start 10/31/16 at 09:00 Miscellaneous Information 1 ea NOTE XX ; Start 10/31/16 at 12:30 Glucose (Glutose) 15 gm Q15M PRN PO DECREASED GLUCOSE; Start 10/31/16 at 12:30 Glucose (Glutose) 22.5 gm Q15M PRN PO DECREASED GLUCOSE; Start 10/31/16 at 12: 30 Dextrose (D50w Syringe) 25 ml Q15M PRN IV DECREASED GLUCOSE; Start 10/31/16 at 12:30 Dextrose (D50w Syringe) 50 ml Q15M PRN IV DECREASED GLUCOSE; Start 10/31/16 at 12:30 Glucagon (Glucagen) 1 mg Q15M PRN IM DECREASED GLUCOSE; Start 10/31/16 at 12:30 Glucose (Glutose) 15 gm Q15M PRN BUCCAL DECREASED GLUCOSE; Start 10/31/16 at 12 :30 Insulin Aspart (Novolog Insulin Pen) NOVOLOG *MODERATE* ALGORI... Q4 SC Last administered on 11/06/16 12:49; Admin Dose 2 UNIT; Start 10/31/16 at 21:00 Hydralazine HCl (Apresoline) 10 mg Q4H PRN IV SBP GREATER THAN 170 Last administered on 11/06/16 09:43; Admin Dose 10 MG; Start 10/31/16 at 23:00 Pantoprazole 40 mg 40 mg BID@06,18 IV Last administered on 11/06/16 05:16; Admin Dose 40 MG; Start 11/01/16 at 18:00 Ceftriaxone Sodium 50 ml @ 100 mls/hr Q24H IVPB Last administered on 16:30; Admin Dose 100 MLS/HR; Start 11/02/16 at 16:30 Dextrose/Sodium Chloride (D5-1/2ns) 1,000 ml @ 40 mls/hr Q24H IV Last administered on 11/06/16 09:49; Admin Dose 40 MLS/HR; Start 11/04/16 at 12:00 Amiodarone HCl (Cordarone) 200 mg TID PO Last administered on 11/06/16 12:40; Admin Dose 200 MG; Start 11/05/16 at 13:00 Clonidine HCl (Catapres-Tts 2 Patch) 1 patch Q7D TRANSDERM Last administered on 11/05/16 13:53; Admin Dose 1 PATCH; Start 11/05/16 at 12:30 KAYLA CASTREJON NP Nov 06, 2016 14:19
[2016-11-06] MEDS: CEFTRIAXONE 1 GM/50 ML (PMX) 50 ML IVPB SCH (17:10)
[2016-11-06] MEDS: COLLAGENASE 30 GM TUBE TOP SCH (18:53)
--- NOTE | 2016-11-06 19:31 | RADRPT ---
PROCEDURE: CT Brain without contrast. CLINICAL INDICATION: Trauma due to a fall. Headache. TECHNIQUE: A CT of the brain without contrast was performed utilizing axial sections from the skul l base through the vertex. The patient was scanned without intravenous contrast enhancement. Sagitta l and coronal reformatted images were obtained using the data from the axial images. Total exam DLP is 810.25 mGy-cm. CTDIvol is 45.01 mGy. One or more of the following dose reduction techniques we re used: Automated exposure control, adjustment of the mA and/or kV according to patient size, use o f iterative reconstruction technique. COMPARISON: None available FINDINGS: There is an old infarct in the right thalamus measuring 1.2 x 1.0 cm in AP and transverse dimensions . There is no evidence of recent infarct. The meeks and white matter differentiation is otherwise n ormal. There is enlargement of the ventricles and subarachnoid spaces consistent with atrophy. There is decreased attenuation of the periventricular white matter consistent with microangiopathic ischemic change. There is no intracranial hemorrhage or space-occupying lesion. There are vascular calcifications consistent with atherosclerosis. There is no skull fracture or lytic lesion. IMPRESSION: 1. Atrophy. 2. Microangiopathic ischemic change. 3. Atherosclerosis. 4. 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 5. No intracranial hemorrhage. 6. Otherwise unremarkable noncontrast CT scan of the brain. RPTAT: QQ .Allen Mackey MD, MD Date Time Electronically viewed and signed by .Allen Mackey MD, on 11/06/2016 19:30 .R/
--- NOTE | 2016-11-06 19:58 | RADRPT ---
PROCEDURE: XR Left Hip. CLINICAL INDICATION: Fall with bilateral hip pain. TECHNIQUE: AP and frog lateral views of the bilateral hips were performed. COMPARISON: None. FINDINGS: Demineralization limits evaluation of fine osseous detail. No acute fracture or osseous lesion is identified. There are no significant degenerative changes in the hip. The soft tissues are unremarkable. Flores catheter in place IMPRESSION: No acute fracture in the bilateral hips. RPTAT: [facility] Physician Demond Date Time Electronically viewed and signed by Physician Demond on 11/06/2016 19:57 RS/
[2016-11-07] VITALS (14 sets, daily range): BP systolic 124–199; BP diastolic 58–94; PULSE 66–95; RESP 18–20
[2016-11-07] MEDS: hydrALAzine 20 MG INJ IV PRN ×2 (00:39→06:43)
[2016-11-07] MEDS: INSULIN ASPART [NOVOLOG] 3 ML PEN SC SCH ×6 (01:19→21:17)
[2016-11-07] MEDS: DEXTROSE 5%-0.45% NACL 1,000 ML IV SCH (05:18)
[2016-11-07] MEDS: PANTOPRAZOLE 40 MG INJ IV SCH (05:32)
[2016-11-07] MEDS: AMIODARONE 200 MG TAB PO SCH ×3 (08:43→21:05)
[2016-11-07] MEDS: COLLAGENASE 30 GM TUBE TOP SCH (09:57)
--- NOTE | 2016-11-07 11:21 | PN ---
Date/Time of Note Date/Time of Note DATE: 11/07/16 TIME: 11:15 Assessment/Plan VTE Prophylaxis VTE Prophylaxis Intervention: SCD's Lines/Catheters IV Catheter Type (from Nrs): PICC Line Central line still needed: No Urinary Cath still in place: Yes Reason Cath still needed: pres ulcer contaminated by urine Assessment/Plan Chief Complaint/Hosp Course 1. GI bleed, improved. 2. Pt is o room air 2. Temperature afebrile 3. DVT prophylaxis, GI ulcer prevention engaged 4. Continue oral nutrition as tolerated 5. PT evaluation, DTI coccyx per nursing care 6. gait disturbance, PT ordered but did not evaluate pt yet. Pt has a sitter for fall prevention. Care was coordinated with Dr Cheema and nursing staff Problems: Assessment/Plan 1. Continue telemetry 2. PICC line can be removed when peripheral line is established 3. Keep sitter for safety 4. PT as soon as possible 5. Pt might be placed in SNF for reabilitation Subjective 24 Hr Interval Summary Subjective hx not possible: other (pt is confused) Constitutional: no complaints Eyes: no complaints ENT: no complaints Respiratory: no complaints Cardiovascular: no complaints Gastrointestinal: no complaints Genitourinary: no complaints, other (loss of balance) Musculoskeletal: no complaints Exam/Review of Systems Vital Signs Vitals Vital Signs Date Time Temp Pulse Resp B/P Pulse Ox O2 Delivery O2 Flow Rate FiO2 11/07/16 08:20 79 11/07/16 06:59 98.4 20 139/65 97 11/07/16 06:45 Room Air 11/06/16 08:00 3.0 11/04/16 11:45 30 Intake and Output 11/06/16 11/06/16 11/07/16 15:00 23:00 07:00 Intake Total 400 ml 720 ml Output Total 805 ml 250 ml 800 ml Balance -405 ml -250 ml -80 ml Exam Constitutional: alert, oriented (to name) Psych: confusion Head: normocephalic Eyes: nl conjunctiva ENMT: nl external ears & nose Neck: supple Respiratory: clear to auscultation Cardiovascular: regular rate and rhythm (SR on monitor) Gastrointestinal: soft Musculoskeletal: muscle weakness Extremities: normal pulses Neurological: confused Skin: nl turgor Results Result Diagram: 11/06/16 0530 11/06/16 0530 Results 24 hrs Laboratory Tests Test 11/06/16 12:24 11/06/16 17:17 11/06/16 20:43 11/07/16 00:56 Bedside Glucose 161 160 136 151 Test 11/07/16 05:08 11/07/16 08:20 Bedside Glucose 174 148 Medications Medications Current Medications Naloxone HCl (Narcan) 0.4 mg Q3M PRN IV DECREASED REPIRATORY RATE; Start at 05:00 Ondansetron HCl (Zofran Inj) 4 mg Q6H PRN IV NAUSEA AND/OR VOMITING; Start 06/08 at 05:00 Acetaminophen (Tylenol Liquid) 650 mg Q6H PRN PO PAIN LEVEL 1-3 OR FEVER; Start 10/30/16 at 05:00 Acetaminophen (Tylenol Tab) 650 mg Q6H PRN PO PAIN LEVEL 1-3 OR FEVER; Start at 05:00 Morphine Sulfate (morphine) 2 mg Q4H PRN IV PAIN LEVEL 7-10 Last administered on 11/04/16 01:51; Admin Dose 2 MG; Start 10/30/16 at 05:00 Zolpidem Tartrate (Ambien) 5 mg QHS PRN PO INSOMNIA; Start 10/30/16 at 05:00 Docusate Sodium (Colace) 100 mg Q12H PRN PO CONSTIPATION; Start 10/30/16 at 05: 00 IV Flush (NS 10 ml) 10 ml PRN PRN IV IV PROTOCOL; Start 10/30/16 at 19:00 Acetaminophen (Tylenol Supp) 650 mg Q6H PRN [place] FEVER Last administered on 08:43; Admin Dose 650 MG; Start 10/31/16 at 09:00 Miscellaneous Information 1 ea NOTE XX ; Start 10/31/16 at 12:30 Glucose (Glutose) 15 gm Q15M PRN PO DECREASED GLUCOSE; Start 10/31/16 at 12:30 Glucose (Glutose) 22.5 gm Q15M PRN PO DECREASED GLUCOSE; Start 10/31/16 at 12: 30 Dextrose (D50w Syringe) 25 ml Q15M PRN IV DECREASED GLUCOSE; Start 10/31/16 at 12:30 Dextrose (D50w Syringe) 50 ml Q15M PRN IV DECREASED GLUCOSE; Start 10/31/16 at 12:30 Glucagon (Glucagen) 1 mg Q15M PRN IM DECREASED GLUCOSE; Start 10/31/16 at 12:30 Glucose (Glutose) 15 gm Q15M PRN BUCCAL DECREASED GLUCOSE; Start 10/31/16 at 12 :30 Hydralazine HCl 10 mg 10 mg Q4H PRN IV SBP GREATER THAN 170 Last administered on 11/07/16 06:43; Admin Dose 10 MG; Start 10/31/16 at 23:00 Ceftriaxone Sodium 50 ml @ 100 mls/hr Q24H IVPB Last administered on 17:10; Admin Dose 100 MLS/HR; Start 11/02/16 at 16:30 Dextrose/Sodium Chloride (D5-1/2ns) 1,000 ml @ 40 mls/hr Q24H IV Last administered on 11/07/16 05:18; Admin Dose 40 MLS/HR; Start 11/04/16 at 12:00 Amiodarone HCl (Cordarone) 200 mg TID PO Last administered on 11/07/16 08:43; Admin Dose 200 MG; Start 11/05/16 at 13:00 Clonidine HCl (Catapres-Tts 2 Patch) 1 patch Q7D TRANSDERM Last administered on 11/05/16 13:53; Admin Dose 1 PATCH; Start 11/05/16 at 12:30 Collagenase (Santyl) 1 applic DAILY TOP Last administered on 11/07/16 09:57; Admin Dose 1 APPLIC; Start 11/06/16 at 17:00 CHELSIE HERNÁNDEZ 18, 2017 11:20
[2016-11-07] MEDS ORDERED: POTASSIUM CHLORIDE 250 ML IVPB ONE (12:00)
--- NOTE | 2016-11-07 12:01 | PN ---
DATE: The patient is now awake and alert. He is afebrile. His abdominal examination is benign. His H an d H is stable. PLAN: The patient will need to be mobilized. Continue medical management. Dictated By: PALOMO HUGGINS/INOCENCIO Conf#: [id number] DID#: [id number]
--- NOTE | 2016-11-07 13:13 | CONS ---
Date/Time of Note Date/Time of Note DATE: 11/07/16 TIME: 13:11 Assessment/Plan Assessment/Plan Additional Assessment/Plan 1. Paroxysmal atrial fibrillation-in SR on IV amio - now in SINUs, rate controlled. 2. Hypertension- BP in good range - con't MEd rx 3. Abnormal electrocardiogram, assess for acute coronary syndrome.-mildly positive troponin 4. Right bundle branch block pattern - stable VS. 5. Cerebrovascular accident, question etiology, likely related to paroxysmal atrial fibrillation.-s/p TTE with bubble study 11/04 negative for definite PFO/ ASD 6. Encephalopathy- unchanged. 7. Gastrointestinal bleed with ongoing GI evaluation. 8. Possible urinary tract infection. 9. Renal failure. 10. Hyponatremia. 11. Coagulopathy, mild. 12. Anemia. 13. Leukocytosis. Consultation Date/Type/Reason Admit Date/Time Oct 30, 2016 at 08:00 Initial Consult Date 11/05/16 Type of Consultation: id Referring Provider: ABBY RAMOS MD 24 HR Interval Summary Free Text/Dictation No acute e vents - paroxysmal a. fib - in SINUS now. ROS: No fever, no chills, no nausea, no vomiting, no diarrhea/constipation No recent weight changes No chest pain, no PND, no orthopnea No dizziness, blurred vision No thirst, no heat or cold intolerance (per nurse) Exam/Review of Systems Vital Signs Vitals Vital Signs Date Time Temp Pulse Resp B/P Pulse Ox O2 Delivery O2 Flow Rate FiO2 11/07/16 12:18 69 11/07/16 11:16 97.6 20 124/58 97 11/07/16 06:45 Room Air 11/06/16 08:00 3.0 11/04/16 11:45 30 Intake and Output 11/06/16 11/06/16 11/07/16 15:00 23:00 07:00 Intake Total 400 ml 720 ml Output Total 805 ml 250 ml 800 ml Balance -405 ml -250 ml -80 ml Exam General: WN/WD/NAD, AOx 0-1 HEENT: Unicetric/atraumatic/EOMI (does not follow commands) h/o CVA NECK: JVD elevated, no thyromegaly Lymph: no lymphadenopathy HEART: regular with no S3, II/ systolic murmur at apex LUNGS: Coarse sounds ABD: soft, NT, ND, +BS : Intact Neuro: non focal SKIN: chronic changes EXT: trace edema Results Result Diagram: 11/06/16 0530 11/06/16 0530 Results 24 hrs Laboratory Tests Test 11/06/16 17:17 11/06/16 20:43 11/07/16 00:56 11/07/16 05:08 Bedside Glucose 160 136 151 174 Test 11/07/16 08:20 11/07/16 12:06 Bedside Glucose 148 255 H Medications Medications Current Medications Naloxone HCl (Narcan) 0.4 mg Q3M PRN IV DECREASED REPIRATORY RATE; Start at 05:00 Ondansetron HCl (Zofran Inj) 4 mg Q6H PRN IV NAUSEA AND/OR VOMITING; Start 06/08 at 05:00 Acetaminophen (Tylenol Liquid) 650 mg Q6H PRN PO PAIN LEVEL 1-3 OR FEVER; Start 10/30/16 at 05:00 Acetaminophen (Tylenol Tab) 650 mg Q6H PRN PO PAIN LEVEL 1-3 OR FEVER; Start at 05:00 Morphine Sulfate (morphine) 2 mg Q4H PRN IV PAIN LEVEL 7-10 Last administered on 11/04/16t 01:51; Admin Dose 2 MG; Start 10/30/16 at 05:00 Zolpidem Tartrate (Ambien) 5 mg QHS PRN PO INSOMNIA; Start 10/30/16 at 05:00 Docusate Sodium (Colace) 100 mg Q12H PRN PO CONSTIPATION; Start 10/30/16 at 05: 00 IV Flush (NS 10 ml) 10 ml PRN PRN IV IV PROTOCOL; Start 10/30/16 at 19:00 Acetaminophen (Tylenol Supp) 650 mg Q6H PRN [place] FEVER Last administered on t 08:43; Admin Dose 650 MG; Start 10/31/16 at 09:00 Miscellaneous Information 1 ea NOTE XX ; Start 10/31/16 at 12:30 Glucose (Glutose) 15 gm Q15M PRN PO DECREASED GLUCOSE; Start 10/31/16 at 12:30 Glucose (Glutose) 22.5 gm Q15M PRN PO DECREASED GLUCOSE; Start 10/31/16 at 12: 30 Dextrose (D50w Syringe) 25 ml Q15M PRN IV DECREASED GLUCOSE; Start 10/31/16 at 12:30 Dextrose (D50w Syringe) 50 ml Q15M PRN IV DECREASED GLUCOSE; Start 10/31/16 at 12:30 Glucagon (Glucagen) 1 mg Q15M PRN IM DECREASED GLUCOSE; Start 10/31/16 at 12:30 Glucose (Glutose) 15 gm Q15M PRN BUCCAL DECREASED GLUCOSE; Start 10/31/16 at 12 :30 Hydralazine HCl 10 mg 10 mg Q4H PRN IV SBP GREATER THAN 170 Last administered on 11/07/16 06:43; Admin Dose 10 MG; Start 10/31/16 at 23:00 Ceftriaxone Sodium 50 ml @ 100 mls/hr Q24H IVPB Last administered on 17:10; Admin Dose 100 MLS/HR; Start 11/02/16 at 16:30 Dextrose/Sodium Chloride (D5-1/2ns) 1,000 ml @ 40 mls/hr Q24H IV Last administered on 11/07/16 05:18; Admin Dose 40 MLS/HR; Start 11/04/16 at 12:00 Amiodarone HCl (Cordarone) 200 mg TID PO Last administered on 11/07/16 08:43; Admin Dose 200 MG; Start 11/05/16 at 13:00 Clonidine HCl (Catapres-Tts 2 Patch) 1 patch Q7D TRANSDERM Last administered on 11/05/16 13:53; Admin Dose 1 PATCH; Start 11/05/16 at 12:30 Collagenase (Santyl) 1 applic DAILY TOP Last administered on 11/07/16 09:57; Admin Dose 1 APPLIC; Start 11/06/16 at 17:00 Pantoprazole (Protonix Tab) 40 mg DAILY@06 PO ; Start 11/08/16 at 06:00 Diagnostic Test (Pha) 1 ea 1 ea 02 XX ; Start 11/08/16 at 02:00 Potassium Chloride (KCl 40 MEQ/250 ML NS) 250 ml @ 62.5 mls/hr ONCE ONCE IVPB ; Start 11/07/16 at 12:00; Stop 11/07/16 at 15:59 HERBERTH ZUNIGA MD Nov 07, 2016 13:12
--- NOTE | 2016-11-07 13:42 | PN ---
DATE: 11/07/2016 PULMONARY FOLLOWUP SUBJECTIVE: Patient Roger is stable this morning, not requiring supplemental O2. PHYSICAL EXAMINATION: VITAL SIGNS: Temperature 98, pulse 78, blood pressure 124/58, O2 saturation 96% on room air. NECK: Supple. No JVD or lymphadenopathy. CARDIAC: S1, S2, no added sounds or murmurs. CHEST: Diminished air entry both lung bases. ABDOMEN: Soft, nontender. No guarding or rebound. EXTREMITIES: No cyanosis, clubbing, 1+ edema. NEUROLOGIC: Generalized weakness. LABORATORY DATA: White count 10.4, hemoglobin 10.2, platelets 235. Chemistry yesterday: BUN 25, c reatinine 2.32. ABG showed respiratory alkalosis. IMPRESSION: 1. Status post hypoxemic respiratory failure, now safely extubated. 2. History of gastrointestinal bleed, followed by general surgery and GI. 3. History of urinary tract infection. 4. Significant neuromuscular weakness, slowly improving. PLAN: 1. Continue GI and surgical recommendations. 2. Encourage out of bed. 3. Aspiration precautions. 4. Consider acute rehabilitation evaluation. Dictated By: JIAN GALLEGOS/INOCENCIO Conf#: [id number] DID#: [id number]
--- NOTE | 2016-11-07 16:57 | CONS ---
Date/Time of Note Date/Time of Note DATE: 11/07/16 TIME: 16:55 Assessment/Plan Assessment/Plan Additional Assessment/Plan IMPRESSION: 1. Recurrent upper gastrointestinal bleeding, appears to be coming from the upper gastrointestinal tract, probably proximal small bowel because it is sort of a blackish in color.ht.stable bleeding has stopped. 2. Anemia. 3. Thrombocytopenia, which is corrected. 4. Urinary tract infection, responded well to antibiotic. 5. Status post extubation. 6. Hypertension by history. 7. Renal failure. 8.confused,cva 9. atrial fibrillation Plan continue PPI will do capsule endoscopy as OP no blood thinner Consultation Date/Type/Reason Admit Date/Time Oct 30, 2016 at 08:00 Initial Consult Date 11/05/16 Type of Consultation: id Referring Provider: ABBY RAMOS MD 24 HR Interval Summary Constitutional: improved, no complaints Exam/Review of Systems Vital Signs Vitals Vital Signs Date Time Temp Pulse Resp B/P Pulse Ox O2 Delivery O2 Flow Rate FiO2 11/07/16 16:11 66 11/07/16 15:16 97.8 20 150/67 98 11/07/16 06:45 Room Air 11/06/16 08:00 3.0 11/04/16 11:45 30 Intake and Output 11/06/16 11/06/16 11/07/16 15:00 23:00 07:00 Intake Total 400 ml 720 ml Output Total 805 ml 250 ml 800 ml Balance -405 ml -250 ml -80 ml Exam Constitutional: alert, oriented, well developed Psych: nl mood/affect, no complaints Head: atraumatic, normocephalic Eyes: EOMI, PERRL, nl conjunctiva, nl lids, nl sclera ENMT: nl external ears & nose, nl lips & teeth, nl nasal mucosa & septum Neck: non-tender, supple Respiratory: clear to auscultation, normal air movement Cardiovascular: nl pulses, regular rate and rhythm Gastrointestinal: nl liver, spleen, non-tender, soft Musculoskeletal: nl extremities to inspection, nl gait and stance Extremities: normal pulses Neurological: GAS BRAZER II-XII intact, nl mental status, nl speech, nl strength Skin: nl turgor, No rash or lesions Lymph: nl lymph nodes Results Result Diagram: 11/06/16 0530 11/06/16 0530 Results 24 hrs Laboratory Tests Test 11/06/16 17:17 11/06/16 20:43 11/07/16 00:56 11/07/16 05:08 Bedside Glucose 160 136 151 174 Test 11/07/16 08:20 11/07/16 12:06 Bedside Glucose 148 255 H Medications Medications Current Medications Naloxone HCl (Narcan) 0.4 mg Q3M PRN IV DECREASED REPIRATORY RATE; Start at 05:00 Ondansetron HCl (Zofran Inj) 4 mg Q6H PRN IV NAUSEA AND/OR VOMITING; Start 06/08 at 05:00 Acetaminophen (Tylenol Liquid) 650 mg Q6H PRN PO PAIN LEVEL 1-3 OR FEVER; Start 10/30/16 at 05:00 Acetaminophen (Tylenol Tab) 650 mg Q6H PRN PO PAIN LEVEL 1-3 OR FEVER; Start at 05:00 Morphine Sulfate (morphine) 2 mg Q4H PRN IV PAIN LEVEL 7-10 Last administered on 11/04/16 01:51; Admin Dose 2 MG; Start 10/30/16 at 05:00 Zolpidem Tartrate (Ambien) 5 mg QHS PRN PO INSOMNIA; Start 10/30/16 at 05:00 Docusate Sodium (Colace) 100 mg Q12H PRN PO CONSTIPATION; Start 10/30/16 at 05: 00 IV Flush (NS 10 ml) 10 ml PRN PRN IV IV PROTOCOL; Start 10/30/16 at 19:00 Acetaminophen (Tylenol Supp) 650 mg Q6H PRN [place] FEVER Last administered on 08:43; Admin Dose 650 MG; Start 10/31/16 at 09:00 Miscellaneous Information 1 ea NOTE XX ; Start 10/31/16 at 12:30 Glucose (Glutose) 15 gm Q15M PRN PO DECREASED GLUCOSE; Start 10/31/16 at 12:30 Glucose (Glutose) 22.5 gm Q15M PRN PO DECREASED GLUCOSE; Start 10/31/16 at 12: 30 Dextrose (D50w Syringe) 25 ml Q15M PRN IV DECREASED GLUCOSE; Start 10/31/16 at 12:30 Dextrose (D50w Syringe) 50 ml Q15M PRN IV DECREASED GLUCOSE; Start 10/31/16 at 12:30 Glucagon (Glucagen) 1 mg Q15M PRN IM DECREASED GLUCOSE; Start 10/31/16 at 12:30 Glucose (Glutose) 15 gm Q15M PRN BUCCAL DECREASED GLUCOSE; Start 10/31/16 at 12 :30 Hydralazine HCl 10 mg 10 mg Q4H PRN IV SBP GREATER THAN 170 Last administered on 11/07/16 06:43; Admin Dose 10 MG; Start 10/31/16 at 23:00 Ceftriaxone Sodium 50 ml @ 100 mls/hr Q24H IVPB Last administered on 17:10; Admin Dose 100 MLS/HR; Start 11/02/16 at 16:30 Dextrose/Sodium Chloride (D5-1/2ns) 1,000 ml @ 40 mls/hr Q24H IV Last administered on 11/07/16 05:18; Admin Dose 40 MLS/HR; Start 11/04/16 at 12:00 Amiodarone HCl (Cordarone) 200 mg TID PO Last administered on 11/07/16 13:45; Admin Dose 200 MG; Start 11/05/16 at 13:00 Clonidine HCl (Catapres-Tts 2 Patch) 1 patch Q7D TRANSDERM Last administered on 11/05/16 13:53; Admin Dose 1 PATCH; Start 11/05/16 at 12:30 Collagenase (Santyl) 1 applic DAILY TOP Last administered on 11/07/16 09:57; Admin Dose 1 APPLIC; Start 11/06/16 at 17:00 Pantoprazole (Protonix Tab) 40 mg DAILY@06 PO ; Start 11/08/16 at 06:00 Diagnostic Test (Pha) (Accucheck) 1 ea 02 XX ; Start 11/08/16 at 02:00 JEFRY CERNA MD Nov 07, 2016 16:57
--- NOTE | 2016-11-07 17:07 | CONS ---
Date/Time of Note Date/Time of Note DATE: 11/07/16 TIME: 17:04 Assessment/Plan Assessment/Plan Chief Complaint/Hosp Course SUBJECTIVE: No acute changes. Awake, looks comfortable, no fevers INDWELLINGS: left upper extremity PICC line placed on October 30 [address]. MICROBIOLOGY: Urine culture on admission grew E. coli. ANTIMICROBIALS: IV Rocephin. PHYSICAL EXAMINATION: GENERAL: Fragile, elderly man who is lying comfortably in bed. HEENT: Head atraumatic, normocephalic. Sclerae anicteric. Buccal mucosa dry. NECK: Supple, trachea midline. CHEST: Rise symmetrical. Breath sounds diminished to bases. HEART: S1, S2. ABDOMEN: Soft, bowel tones present. EXTREMITIES: Without cyanosis. ASSESSMENT: 1. S/p acute respiratory failure==> extubated. 2. S/p urinary tract infection. 3. Acute anemia. PLAN: Remains stable, will dc abx and observe, continue aspiration precautions , kelly cx prn. DW staff Problems: Consultation Date/Type/Reason Admit Date/Time Oct 30, 2016 at 08:00 Initial Consult Date 11/03/16 Type of Consultation: id Referring Provider: ABBY RAMOS MD Exam/Review of Systems Vital Signs Vitals Vital Signs Date Time Temp Pulse Resp B/P Pulse Ox O2 Delivery O2 Flow Rate FiO2 11/07/16 16:11 66 11/07/16 15:16 97.8 20 150/67 98 11/07/16 06:45 Room Air 11/06/16 08:00 3.0 11/04/16 11:45 30 Intake and Output 11/06/16 11/06/16 11/07/16 15:00 23:00 07:00 Intake Total 400 ml 720 ml Output Total 805 ml 250 ml 800 ml Balance -405 ml -250 ml -80 ml Results Result Diagram: 11/06/16 0530 11/06/16 0530 Results 24 hrs Laboratory Tests Test 11/06/16 17:17 11/06/16 20:43 11/07/16 00:56 11/07/16 05:08 Bedside Glucose 160 136 151 174 Test 11/07/16 08:20 11/07/16 12:06 11/07/16 17:01 Bedside Glucose 148 255 H 115 Medications Medications Current Medications Naloxone HCl (Narcan) 0.4 mg Q3M PRN IV DECREASED REPIRATORY RATE; Start at 05:00 Ondansetron HCl (Zofran Inj) 4 mg Q6H PRN IV NAUSEA AND/OR VOMITING; Start 06/08 at 05:00 Acetaminophen (Tylenol Liquid) 650 mg Q6H PRN PO PAIN LEVEL 1-3 OR FEVER; Start 10/30/16 at 05:00 Acetaminophen (Tylenol Tab) 650 mg Q6H PRN PO PAIN LEVEL 1-3 OR FEVER; Start at 05:00 Morphine Sulfate (morphine) 2 mg Q4H PRN IV PAIN LEVEL 7-10 Last administered on 11/04/16 01:51; Admin Dose 2 MG; Start 10/30/16 at 05:00 Zolpidem Tartrate (Ambien) 5 mg QHS PRN PO INSOMNIA; Start 10/30/16 at 05:00 Docusate Sodium (Colace) 100 mg Q12H PRN PO CONSTIPATION; Start 10/30/16 at 05: 00 IV Flush (NS 10 ml) 10 ml PRN PRN IV IV PROTOCOL; Start 10/30/16 at 19:00 Acetaminophen (Tylenol Supp) 650 mg Q6H PRN [place] FEVER Last administered on 08:43; Admin Dose 650 MG; Start 10/31/16 at 09:00 Miscellaneous Information 1 ea NOTE XX ; Start 10/31/16 at 12:30 Glucose (Glutose) 15 gm Q15M PRN PO DECREASED GLUCOSE; Start 10/31/16 at 12:30 Glucose (Glutose) 22.5 gm Q15M PRN PO DECREASED GLUCOSE; Start 10/31/16 at 12: 30 Dextrose (D50w Syringe) 25 ml Q15M PRN IV DECREASED GLUCOSE; Start 10/31/16 at 12:30 Dextrose (D50w Syringe) 50 ml Q15M PRN IV DECREASED GLUCOSE; Start 10/31/16 at 12:30 Glucagon (Glucagen) 1 mg Q15M PRN IM DECREASED GLUCOSE; Start 10/31/16 at 12:30 Glucose (Glutose) 15 gm Q15M PRN BUCCAL DECREASED GLUCOSE; Start 10/31/16 at 12 :30 Hydralazine HCl 10 mg 10 mg Q4H PRN IV SBP GREATER THAN 170 Last administered on 11/07/16 06:43; Admin Dose 10 MG; Start 10/31/16 at 23:00 Ceftriaxone Sodium 50 ml @ 100 mls/hr Q24H IVPB Last administered on 17:10; Admin Dose 100 MLS/HR; Start 11/02/16 at 16:30 Dextrose/Sodium Chloride (D5-1/2ns) 1,000 ml @ 40 mls/hr Q24H IV Last administered on 11/07/16 05:18; Admin Dose 40 MLS/HR; Start 11/04/16 at 12:00 Amiodarone HCl (Cordarone) 200 mg TID PO Last administered on 11/07/16 13:45; Admin Dose 200 MG; Start 11/05/16 at 13:00 Clonidine HCl (Catapres-Tts 2 Patch) 1 patch Q7D TRANSDERM Last administered on 11/05/16 13:53; Admin Dose 1 PATCH; Start 11/05/16 at 12:30 Collagenase (Santyl) 1 applic DAILY TOP Last administered on 11/07/16 09:57; Admin Dose 1 APPLIC; Start 11/06/16 at 17:00 Pantoprazole (Protonix Tab) 40 mg DAILY@06 PO ; Start 11/08/16 at 06:00 Diagnostic Test (Pha) (Accucheck) 1 ea 02 XX ; Start 11/08/16 at 02:00 KAYLA CASTREJON NP Nov 07, 2016 17:07
[2016-11-07] MEDS: CEFTRIAXONE 1 GM/50 ML (PMX) 50 ML IVPB SCH (17:54)
[2016-11-08] VITALS (13 sets, daily range): BP systolic 128–159; BP diastolic 60–72; PULSE 61–74; RESP 16–20
[2016-11-08] MEDS: ACCUCHECK AT 2AM (Patients on SS coverage) XX SCH (02:20)
[2016-11-08] MEDS: PANTOPRAZOLE (EC) 40 MG TAB PO SCH (05:10)
[2016-11-08 05:55] LABS: ADD SCAN DIFF NO
[2016-11-08 06:04] LABS: BASOPHILS % 0.3 % (0.0-2.0); EOSINOPHILS # 0.6 10^3/ul (0.0-0.5); EOSINOPHILS % 5.4 % (0.0-7.0); HEMATOCRIT 26.4 % (42.0-52.0); HEMOGLOBIN 8.6 g/dl (14.0-18.0); LYMPHOCYTES # 1.5 10^3/ul (0.8-2.9); MEAN CORPUSCULAR HEMOGLOBIN 28.5 pg (29.0-33.0); MEAN CORPUSCULAR HGB CONC 32.6 g/dl (32.0-37.0); MEAN CORPUSCULAR VOLUME 87.4 fl (82.0-101.0); MEAN PLATELET VOLUME 10.6 fl (7.4-10.4); MONOCYTE # 0.7 10^3/ul (0.3-0.9); MONOCYTES % 6.1 % (0.0-11.0); NEUTROPHIL # 7.9 10^3/ul (1.6-7.5); NEUTROPHILS % 73.5 % (39.0-77.0); PLATELET COUNT 305 10^3/UL (140-415); RED BLOOD COUNT 3.02 10^6/ul (4.70-6.10); RED CELL DISTRIBUTION WIDTH 13.8 % (11.5-14.5); WHITE BLOOD COUNT 10.8 10^3/ul (4.8-10.8)
[2016-11-08 06:27] LABS: POTASSIUM 3.4 mmol/L (3.5-5.1)
[2016-11-08 06:29] LABS: CREATININE 2.42 mg/dl (0.61-1.24)
[2016-11-08 06:30] LABS: ALBUMIN/GLOBULIN RATIO 0.62; BILIRUBIN,INDIRECT 0.2 mg/dl (0-1.1); BILIRUBIN,TOTAL 0.2 mg/dl (0.2-1.3); TOTAL PROTEIN 5.2 g/dl (6.1-8.1)
--- NOTE | 2016-11-08 07:10 | PN ---
DATE: 11/07/2016 HISTORY OF PRESENT ILLNESS: This 71-year-old gentleman has a history of recurrent upper GI bleeding and also normochromic anemia; however, his ferritin level was normal. His creatinine is 2.32. GI is planning to do capsular endoscopy. PHYSICAL EXAMINATION: GENERAL: Shows a moderately built male who is somewhat lethargic. ENT: Normal. HEART: Normal. LUNGS: Normal. ABDOMEN: Soft. Showed no masses or tenderness. IMPRESSION: 1. Normochromic anemia, most likely multifactorial from chronic illness, azotemia, and gastrointest inal bleeding. 2. Moderate azotemia. 3. History of recurrent upper GI bleeding, capsular endoscopy pending. PLAN AND DISCUSSION: The patient's anemia a stable. In spite of his history of GI bleeding, his fe rritin was 309, and it is unlikely to be iron deficiency alone. I will get a serum EPO level. He m ight benefit from Procrit because of his azotemia. Dictated By: JOHANNA GILLESPIE/INOCENCIO Conf#: [id number] DID#: [id number]
[2016-11-08] MEDS: INSULIN ASPART [NOVOLOG] 3 ML PEN SC SCH ×4 (07:25→21:26)
[2016-11-08] MEDS: DEXTROSE 5%-0.45% NACL 1,000 ML IV SCH (07:37)
[2016-11-08] MEDS: AMIODARONE 200 MG TAB PO SCH ×3 (08:02→21:29)
[2016-11-08] MEDS: COLLAGENASE 30 GM TUBE TOP SCH (08:02)
[2016-11-08] MEDS ORDERED: POTASSIUM CHLORIDE 250 ML IVPB ONE (11:30)
--- NOTE | 2016-11-08 15:20 | PN ---
Date/Time of Note Date/Time of Note DATE: 11/08/16 TIME: 15:17 Assessment/Plan VTE Prophylaxis VTE Prophylaxis Intervention: other Lines/Catheters IV Catheter Type (from Nrs): Peripheral IV Urinary Cath still in place: Yes Reason Cath still needed: other (indicate) Assessment/Plan Chief Complaint/Hosp Course IMPRESSION: 1. Patient has massive gastrointestinal bleed.better 2. HYPOKALEMIA 3. Metabolic acidosis and acute kidney injury.better 4. cva 5. Hypoalbuminemia. 6 thrombocytopenia better 7 uti antibiotic kcl Problems: Subjective 24 Hr Interval Summary Respiratory: no complaints Cardiovascular: no complaints Gastrointestinal: no complaints Exam/Review of Systems Vital Signs Vitals Vital Signs Date Time Temp Pulse Resp B/P Pulse Ox O2 Delivery O2 Flow Rate FiO2 11/08/16 12:19 68 11/08/16 11:39 98.0 16 128/60 96 11/08/16 01:36 Room Air 11/06/16 08:00 3.0 11/04/16 11:45 30 Intake and Output 11/07/16 11/07/16 11/08/16 15:00 23:00 07:00 Intake Total 1270 ml 410 ml Output Total 700 ml 625 ml Balance 570 ml -215 ml Exam Respiratory: clear to auscultation Cardiovascular: regular rate and rhythm Gastrointestinal: soft Musculoskeletal: nl extremities to inspection Extremities: normal pulses Results Result Diagram: 11/08/16 0524 11/08/16 0524 Results 24 hrs Laboratory Tests Test 11/07/16 17:01 11/07/16 21:09 11/08/16 01:31 11/08/16 05:01 Bedside Glucose 115 243 H 77 94 Test 11/08/16 05:24 11/08/16 07:32 11/08/16 11:24 Alanine Aminotransferase (ALT/SGPT) 37 Albumin 2.0 L Albumin/Globulin Ratio 0.62 Alkaline Phosphatase 84 Anion Gap 11 Aspartate Amino Transf (AST/SGOT) 28 Basophils # 0.0 Basophils % 0.3 Blood Urea Nitrogen 18 Calcium Level 7.0 L Carbon Dioxide Level 25 Chloride Level 103 # Creatinine 2.42 H Direct Bilirubin 0.00 Eosinophils # 0.6 H Eosinophils % 5.4 Globulin 3.20 Glucose Level 85 # Hematocrit 26.4 L Hemoglobin 8.6 L Indirect Bilirubin 0.2 Lymphocytes # 1.5 Lymphocytes % 14.0 L Mean Corpuscular Hemoglobin 28.5 L Mean Corpuscular Hemoglobin Concent 32.6 Mean Corpuscular Volume 87.4 Mean Platelet Volume 10.6 H Monocytes # 0.7 Monocytes % 6.1 Neutrophils # 7.9 H Neutrophils % 73.5 Nucleated Red Blood Cells # 0.0 Nucleated Red Blood Cells % 0.0 Platelet Count 305 # Potassium Level 3.4 L Red Blood Count 3.02 L Red Cell Distribution Width 13.8 Sodium Level 136 Total Bilirubin 0.2 Total Protein 5.2 L White Blood Count 10.8 Bedside Glucose 111 284 H Medications Medications Current Medications Naloxone HCl (Narcan) 0.4 mg Q3M PRN IV DECREASED REPIRATORY RATE; Start at 05:00 Ondansetron HCl (Zofran Inj) 4 mg Q6H PRN IV NAUSEA AND/OR VOMITING; Start 06/08 at 05:00 Acetaminophen (Tylenol Liquid) 650 mg Q6H PRN PO PAIN LEVEL 1-3 OR FEVER; Start 10/30/16 at 05:00 Acetaminophen (Tylenol Tab) 650 mg Q6H PRN PO PAIN LEVEL 1-3 OR FEVER; Start at 05:00 Morphine Sulfate (morphine) 2 mg Q4H PRN IV PAIN LEVEL 7-10 Last administered on 11/04/16t 01:51; Admin Dose 2 MG; Start 10/30/16 at 05:00 Zolpidem Tartrate (Ambien) 5 mg QHS PRN PO INSOMNIA; Start 10/30/16 at 05:00 Docusate Sodium (Colace) 100 mg Q12H PRN PO CONSTIPATION; Start 10/30/16 at 05: 00 IV Flush (NS 10 ml) 10 ml PRN PRN IV IV PROTOCOL; Start 10/30/16 at 19:00 Acetaminophen (Tylenol Supp) 650 mg Q6H PRN [place] FEVER Last administered on t 08:43; Admin Dose 650 MG; Start 10/31/16 at 09:00 Miscellaneous Information 1 ea NOTE XX ; Start 10/31/16 at 12:30 Glucose (Glutose) 15 gm Q15M PRN PO DECREASED GLUCOSE; Start 10/31/16 at 12:30 Glucose (Glutose) 22.5 gm Q15M PRN PO DECREASED GLUCOSE; Start 10/31/16 at 12: 30 Dextrose (D50w Syringe) 25 ml Q15M PRN IV DECREASED GLUCOSE; Start 10/31/16 at 12:30 Dextrose (D50w Syringe) 50 ml Q15M PRN IV DECREASED GLUCOSE; Start 10/31/16 at 12:30 Glucagon (Glucagen) 1 mg Q15M PRN IM DECREASED GLUCOSE; Start 10/31/16 at 12:30 Glucose (Glutose) 15 gm Q15M PRN BUCCAL DECREASED GLUCOSE; Start 10/31/16 at 12 :30 Hydralazine HCl 10 mg 10 mg Q4H PRN IV SBP GREATER THAN 170 Last administered on 11/07/16 06:43; Admin Dose 10 MG; Start 10/31/16 at 23:00 Ceftriaxone Sodium (Rocephin) 50 ml @ 100 mls/hr Q24H IVPB Last administered on 11/07/16 17:54; Admin Dose 100 MLS/HR; Start 11/02/16 at 16:30 Amiodarone HCl (Cordarone) 200 mg TID PO Last administered on 11/08/16 12:31; Admin Dose 200 MG; Start 11/05/16 at 13:00 Clonidine HCl (Catapres-Tts 2 Patch) 1 patch Q7D TRANSDERM Last administered on 11/05/16 13:53; Admin Dose 1 PATCH; Start 11/05/16 at 12:30 Collagenase (Santyl) 1 applic DAILY TOP Last administered on 11/08/16 08:02; Admin Dose 1 APPLIC; Start 11/06/16 at 17:00 Pantoprazole (Protonix Tab) 40 mg DAILY@06 PO Last administered on 11/08/16 05 :10; Admin Dose 40 MG; Start 11/08/16 at 06:00 Diagnostic Test (Pha) 1 ea 1 ea 02 XX Last administered on 11/08/16 02:20; Admin Dose 1 EA; Start 11/08/16 at 02:00 Potassium Chloride (KCl 40 MEQ/250 ML NS) 250 ml @ 62.5 mls/hr ONCE ONCE IVPB Last administered on 11/08/16 12:47; Admin Dose 62.5 MLS/HR; Start 11/08/16 at 11:30; Stop 11/08/16 at 15:29 BABY RAMOS MD Nov 08, 2016 15:20
--- NOTE | 2016-11-08 15:49 | CONS ---
Date/Time of Note Date/Time of Note DATE: 11/08/16 TIME: 15:48 Assessment/Plan Assessment/Plan Chief Complaint/Hosp Course SUBJECTIVE: No acute changes. Awake, looks comfortable, no fevers INDWELLINGS: left upper extremity PICC line placed on October 30, [place]. MICROBIOLOGY: Urine culture on admission grew E. coli. ANTIMICROBIALS: s/p Rocephin. PHYSICAL EXAMINATION: GENERAL: Fragile, elderly man who is lying comfortably in bed. HEENT: Head atraumatic, normocephalic. Sclerae anicteric. Buccal mucosa dry. NECK: Supple, trachea midline. CHEST: Rise symmetrical. Breath sounds diminished to bases. HEART: S1, S2. ABDOMEN: Soft, bowel tones present. EXTREMITIES: Without cyanosis. ASSESSMENT: 1. S/p acute respiratory failure==> extubated. 2. S/p urinary tract infection. 3. Acute anemia. PLAN: Remains stable, off abx, continue aspiration precautions, kelly cx prn. DW staff Problems: Consultation Date/Type/Reason Admit Date/Time Oct 30, 2016 at 08:00 Initial Consult Date 11/03/16 Type of Consultation: id Referring Provider: ABBY RAMOS MD Exam/Review of Systems Vital Signs Vitals Vital Signs Date Time Temp Pulse Resp B/P Pulse Ox O2 Delivery O2 Flow Rate FiO2 11/08/16 12:19 68 11/08/16 11:39 98.0 16 128/60 96 11/08/16 01:36 Room Air 11/06/16 08:00 3.0 11/04/16 11:45 30 Intake and Output 11/07/16 11/07/16 11/08/16 15:00 23:00 07:00 Intake Total 1270 ml 410 ml Output Total 700 ml 625 ml Balance 570 ml -215 ml Results Result Diagram: 11/08/16 0524 11/08/16 0524 Results 24 hrs Laboratory Tests Test 11/07/16 17:01 11/07/16 21:09 11/08/16 01:31 11/08/16 05:01 Bedside Glucose 115 243 H 77 94 Test 11/08/16 05:24 11/08/16 07:32 11/08/16 11:24 Alanine Aminotransferase (ALT/SGPT) 37 Albumin 2.0 L Albumin/Globulin Ratio 0.62 Alkaline Phosphatase 84 Anion Gap 11 Aspartate Amino Transf (AST/SGOT) 28 Basophils # 0.0 Basophils % 0.3 Blood Urea Nitrogen 18 Calcium Level 7.0 L Carbon Dioxide Level 25 Chloride Level 103 # Creatinine 2.42 H Direct Bilirubin 0.00 Eosinophils # 0.6 H Eosinophils % 5.4 Globulin 3.20 Glucose Level 85 # Hematocrit 26.4 L Hemoglobin 8.6 L Indirect Bilirubin 0.2 Lymphocytes # 1.5 Lymphocytes % 14.0 L Mean Corpuscular Hemoglobin 28.5 L Mean Corpuscular Hemoglobin Concent 32.6 Mean Corpuscular Volume 87.4 Mean Platelet Volume 10.6 H Monocytes # 0.7 Monocytes % 6.1 Neutrophils # 7.9 H Neutrophils % 73.5 Nucleated Red Blood Cells # 0.0 Nucleated Red Blood Cells % 0.0 Platelet Count 305 # Potassium Level 3.4 L Red Blood Count 3.02 L Red Cell Distribution Width 13.8 Sodium Level 136 Total Bilirubin 0.2 Total Protein 5.2 L White Blood Count 10.8 Bedside Glucose 111 284 H Medications Medications Current Medications Naloxone HCl (Narcan) 0.4 mg Q3M PRN IV DECREASED REPIRATORY RATE; Start at 05:00 Ondansetron HCl (Zofran Inj) 4 mg Q6H PRN IV NAUSEA AND/OR VOMITING; Start 06/08 at 05:00 Acetaminophen (Tylenol Liquid) 650 mg Q6H PRN PO PAIN LEVEL 1-3 OR FEVER; Start 10/30/16 at 05:00 Acetaminophen (Tylenol Tab) 650 mg Q6H PRN PO PAIN LEVEL 1-3 OR FEVER; Start at 05:00 Morphine Sulfate (morphine) 2 mg Q4H PRN IV PAIN LEVEL 7-10 Last administered on 11/04/16 01:51; Admin Dose 2 MG; Start 10/30/16 at 05:00 Zolpidem Tartrate (Ambien) 5 mg QHS PRN PO INSOMNIA; Start 10/30/16 at 05:00 Docusate Sodium (Colace) 100 mg Q12H PRN PO CONSTIPATION; Start 10/30/16 at 05: 00 IV Flush (NS 10 ml) 10 ml PRN PRN IV IV PROTOCOL; Start 10/30/16 at 19:00 Acetaminophen (Tylenol Supp) 650 mg Q6H PRN [place] FEVER Last administered on 08:43; Admin Dose 650 MG; Start 10/31/16 at 09:00 Miscellaneous Information 1 ea NOTE XX ; Start 10/31/16 at 12:30 Glucose (Glutose) 15 gm Q15M PRN PO DECREASED GLUCOSE; Start 10/31/16 at 12:30 Glucose (Glutose) 22.5 gm Q15M PRN PO DECREASED GLUCOSE; Start 10/31/16 at 12: 30 Dextrose (D50w Syringe) 25 ml Q15M PRN IV DECREASED GLUCOSE; Start 10/31/16 at 12:30 Dextrose (D50w Syringe) 50 ml Q15M PRN IV DECREASED GLUCOSE; Start 10/31/16 at 12:30 Glucagon (Glucagen) 1 mg Q15M PRN IM DECREASED GLUCOSE; Start 10/31/16 at 12:30 Glucose (Glutose) 15 gm Q15M PRN BUCCAL DECREASED GLUCOSE; Start 10/31/16 at 12 :30 Hydralazine HCl 10 mg 10 mg Q4H PRN IV SBP GREATER THAN 170 Last administered on 11/07/16 06:43; Admin Dose 10 MG; Start 10/31/16 at 23:00 Ceftriaxone Sodium (Rocephin) 50 ml @ 100 mls/hr Q24H IVPB Last administered on 11/07/16 17:54; Admin Dose 100 MLS/HR; Start 11/02/16 at 16:30 Amiodarone HCl (Cordarone) 200 mg TID PO Last administered on 11/08/16 12:31; Admin Dose 200 MG; Start 11/05/16 at 13:00 Clonidine HCl (Catapres-Tts 2 Patch) 1 patch Q7D TRANSDERM Last administered on 11/05/16 13:53; Admin Dose 1 PATCH; Start 11/05/16 at 12:30 Collagenase (Santyl) 1 applic DAILY TOP Last administered on 11/08/16 08:02; Admin Dose 1 APPLIC; Start 11/06/16 at 17:00 Pantoprazole (Protonix Tab) 40 mg DAILY@06 PO Last administered on 11/08/16 05 :10; Admin Dose 40 MG; Start 11/08/16 at 06:00 Diagnostic Test (Pha) (Accucheck) 1 ea 02 XX Last administered on 11/08/16 02: 20; Admin Dose 1 EA; Start 11/08/16 at 02:00 KAYLA CASTREJON NP Nov 08, 2016 15:49
[2016-11-08] MEDS: CEFTRIAXONE 1 GM/50 ML (PMX) 50 ML IVPB SCH (16:37)
--- NOTE | 2016-11-08 17:23 | PN ---
DATE: 11/08/2016 Mr. Duran is stable this morning. No new events. PHYSICAL EXAMINATION: VITAL SIGNS: Temperature 98, pulse 68, blood pressure 128/60, O2 saturation 96% on 3 liters. NECK: Supple. No JVD4 or lymphadenopathy. CARDIAC: S1, S2, no added sounds or murmurs. CHEST: Diminished air entry bilaterally. ABDOMEN: Soft, nontender. No guarding or rebound. EXTREMITIES: No cyanosis, clubbing, edema. NEUROLOGIC: Generalized weakness. LABORATORY DATA: White count 10.2, hemoglobin 8.6, platelets of 305, BUN 18, creatinine 2.42. IMPRESSION AND PLAN: 1. Hypoxemic respiratory failure. 2. Gastrointestinal bleed. 3. History of urinary tract infection. 4. Recovering neuromuscular weakness. PLAN: 1. Continued supplemental O2. 2. Pulmonary toilet. 3. Bronchodilators. 4. Deep vein thrombosis and GI prophylaxis. Dictated By: JIAN GALLEGOS/INOCENCIO Conf#: [id number] DID#: [id number]
--- NOTE | 2016-11-08 17:23 | PN ---
DATE: The patient's hematocrit this morning is 26.4, with a white count of 10,800. OBJECTIVE: ABDOMEN: Benign. LABORATORY DATA: His BUN is down to 18, with a creatinine down to 2.4. IMPRESSION: No further bleed. Patient has fully stabilized. I would recommend to follow up as an outpatient with a capsule endoscopy to run the small bowel. Dictated By: PALOMO HUGGINS/INOCENCIO Conf#: [id number] DID#: [id number]
--- NOTE | 2016-11-08 17:56 | CONS ---
Date/Time of Note Date/Time of Note DATE: 11/08/16 TIME: 17:54 Assessment/Plan Assessment/Plan Additional Assessment/Plan 1. Paroxysmal atrial fibrillation-in SR on IV amio - now in SINUs, rate controlled. STABLE HR now. 2. Hypertension- BP in good range - con't MEd rx 3. Abnormal electrocardiogram, assess for acute coronary syndrome.-mildly positive troponin 4. Right bundle branch block pattern - stable VS. 5. Cerebrovascular accident, question etiology, likely related to paroxysmal atrial fibrillation.-s/p TTE with bubble study 11/04 negative for definite PFO/ ASD 6. Encephalopathy- unchanged. 7. Gastrointestinal bleed with ongoing GI evaluation - seen by GI, outpt endoscopy capsule advised. 8. Possible urinary tract infection. 9. Renal failure. 10. Hyponatremia. 11. Coagulopathy, mild. 12. Anemia. 13. Leukocytosis. Consultation Date/Type/Reason Admit Date/Time Oct 30, 2016 at 08:00 Initial Consult Date 11/05/16 Type of Consultation: id Referring Provider: ABBY RAMOS MD 24 HR Interval Summary Free Text/Dictation NO acute events - H/H stable - in sinus now. no new bleeding noted. ROS: No fever, no chills, no nausea, no vomiting, no diarrhea/constipation No recent weight changes No chest pain, no PND, no orthopnea No dizziness, blurred vision No thirst, no heat or cold intolerance Exam/Review of Systems Vital Signs Vitals Vital Signs Date Time Temp Pulse Resp B/P Pulse Ox O2 Delivery O2 Flow Rate FiO2 11/08/16 16:51 61 11/08/16 16:09 97.8 16 159/72 98 11/08/16 01:36 Room Air 11/06/16 08:00 3.0 11/04/16 11:45 30 Intake and Output 11/07/16 11/07/16 11/08/16 15:00 23:00 07:00 Intake Total 1270 ml 410 ml Output Total 700 ml 625 ml Balance 570 ml -215 ml Exam General: WN/WD/NAD, AOx 2 HEENT: Unicetric/atraumatic/EOMI (follow commands) NECK: JVD elevated, no thyromegaly Lymph: no lymphadenopathy HEART: regular with no S3, II/ systolic murmur at apex LUNGS: Coarse sounds ABD: soft, NT, ND, +BS : Intact Neuro: non focal SKIN: chronic changes EXT: trace edema Results Result Diagram: 11/08/1652311/08/16523 Results 24 hrs Laboratory Tests Test 11/07/16 21:09 11/08/16 01:31 11/08/16 05:01 11/08/16 05:24 Bedside Glucose 243 H 77 94 Alanine Aminotransferase (ALT/SGPT) 37 Albumin 2.0 L Albumin/Globulin Ratio 0.62 Alkaline Phosphatase 84 Anion Gap 11 Aspartate Amino Transf (AST/SGOT) 28 Basophils # 0.0 Basophils % 0.3 Blood Urea Nitrogen 18 Calcium Level 7.0 L Carbon Dioxide Level 25 Chloride Level 103 # Creatinine 2.42 H Direct Bilirubin 0.00 Eosinophils # 0.6 H Eosinophils % 5.4 Globulin 3.20 Glucose Level 85 # Hematocrit 26.4 L Hemoglobin 8.6 L Indirect Bilirubin 0.2 Lymphocytes # 1.5 Lymphocytes % 14.0 L Mean Corpuscular Hemoglobin 28.5 L Mean Corpuscular Hemoglobin Concent 32.6 Mean Corpuscular Volume 87.4 Mean Platelet Volume 10.6 H Monocytes # 0.7 Monocytes % 6.1 Neutrophils # 7.9 H Neutrophils % 73.5 Nucleated Red Blood Cells # 0.0 Nucleated Red Blood Cells % 0.0 Platelet Count 305 # Potassium Level 3.4 L Red Blood Count 3.02 L Red Cell Distribution Width 13.8 Sodium Level 136 Total Bilirubin 0.2 Total Protein 5.2 L White Blood Count 10.8 Test 11/08/16 07:32 11/08/16 11:24 11/08/16 16:36 Bedside Glucose 111 284 H 190 Medications Medications Current Medications Naloxone HCl (Narcan) 0.4 mg Q3M PRN IV DECREASED REPIRATORY RATE; Start at 05:00 Ondansetron HCl (Zofran Inj) 4 mg Q6H PRN IV NAUSEA AND/OR VOMITING; Start 06/08 at 05:00 Acetaminophen (Tylenol Liquid) 650 mg Q6H PRN PO PAIN LEVEL 1-3 OR FEVER; Start 10/30/16 at 05:00 Acetaminophen (Tylenol Tab) 650 mg Q6H PRN PO PAIN LEVEL 1-3 OR FEVER; Start at 05:00 Morphine Sulfate (morphine) 2 mg Q4H PRN IV PAIN LEVEL 7-10 Last administered on 11/04/16 01:51; Admin Dose 2 MG; Start 10/30/16 at 05:00 Zolpidem Tartrate (Ambien) 5 mg QHS PRN PO INSOMNIA; Start 10/30/16 at 05:00 Docusate Sodium (Colace) 100 mg Q12H PRN PO CONSTIPATION; Start 10/30/16 at 05: 00 IV Flush (NS 10 ml) 10 ml PRN PRN IV IV PROTOCOL; Start 10/30/16 at 19:00 Acetaminophen (Tylenol Supp) 650 mg Q6H PRN [place] FEVER Last administered on 08:43; Admin Dose 650 MG; Start 10/31/16 at 09:00 Miscellaneous Information 1 ea NOTE XX ; Start 10/31/16 at 12:30 Glucose (Glutose) 15 gm Q15M PRN PO DECREASED GLUCOSE; Start 10/31/16 at 12:30 Glucose (Glutose) 22.5 gm Q15M PRN PO DECREASED GLUCOSE; Start 10/31/16 at 12: 30 Dextrose (D50w Syringe) 25 ml Q15M PRN IV DECREASED GLUCOSE; Start 10/31/16 at 12:30 Dextrose (D50w Syringe) 50 ml Q15M PRN IV DECREASED GLUCOSE; Start 10/31/16 at 12:30 Glucagon (Glucagen) 1 mg Q15M PRN IM DECREASED GLUCOSE; Start 10/31/16 at 12:30 Glucose (Glutose) 15 gm Q15M PRN BUCCAL DECREASED GLUCOSE; Start 10/31/16 at 12 :30 Hydralazine HCl 10 mg 10 mg Q4H PRN IV SBP GREATER THAN 170 Last administered on 11/07/16 06:43; Admin Dose 10 MG; Start 10/31/16 at 23:00 Ceftriaxone Sodium (Rocephin) 50 ml @ 100 mls/hr Q24H IVPB Last administered on 11/08/16 16:37; Admin Dose 100 MLS/HR; Start 11/02/16 at 16:30 Amiodarone HCl (Cordarone) 200 mg TID PO Last administered on 11/08/16 12:31; Admin Dose 200 MG; Start 11/05/16 at 13:00 Clonidine HCl (Catapres-Tts 2 Patch) 1 patch Q7D TRANSDERM Last administered on 11/05/16 13:53; Admin Dose 1 PATCH; Start 11/05/16 at 12:30 Collagenase (Santyl) 1 applic DAILY TOP Last administered on 11/08/16 08:02; Admin Dose 1 APPLIC; Start 11/06/16 at 17:00 Pantoprazole (Protonix Tab) 40 mg DAILY@06 PO Last administered on 11/08/16 05 :10; Admin Dose 40 MG; Start 11/08/16 at 06:00 Diagnostic Test (Pha) (Accucheck) 1 ea 02 XX Last administered on 11/08/16 02: 20; Admin Dose 1 EA; Start 11/08/16 at 02:00 HERBERTH ZUNIGA MD Nov 08, 2016 17:55
--- NOTE | 2016-11-08 19:07 | PN ---
DATE: 11/08/2016 HISTORY OF PRESENT ILLNESS: This 71-year-old gentleman, originally from the [facility], has recurr ent upper GI bleeding, but his EGD and colonoscopy were unremarkable. His ferritin level also was n ormal. He has chronic renal failure with creatinine 2.32. The patient is being further evaluated b y GI possibly for capsular endoscopy. PHYSICAL EXAMINATION: GENERAL: Shows a somewhat thinly built male who is alert, but is slightly forgetful. VITAL SIGNS: Unremarkable and he is afebrile. EARS, NOSE, THROAT: Normal. HEART AND LUNGS: Unremarkable. ABDOMEN: Soft. No masses. EXTERNAL GENITALIA: Normal. CENTRAL NERVOUS SYSTEM: No focal defects. LABORATORY DATA: Hemoglobin decreased to 8.6 and was 10.2 yesterday. Creatinine is 2.42. IMPRESSION: 1. Normochromic anemia, most likely from gastrointestinal bleeding, azotemia, and/or chronic illnes s. 2. Moderate azotemia. 3. Severe recurrent gastrointestinal bleeding. Capsule endoscopy pending. PLAN AND DISCUSSION: This patient's anemia has been getting worse with hemoglobin down to 8.6. We need to monitor it. He might need a transfusion. I have ordered a serum epo level, which is still pending. He might benefit from Procrit. Thank you again very much. Dictated By: JOHANNA CURRY MD PC/INOCENCIO Conf#: [id number] DID#: [id number]
--- NOTE | 2016-11-08 21:25 | PN ---
DATE: SUBJECTIVE: No complaint. The patient is confused. OBJECTIVE VITAL SIGNS: Stable. ABDOMEN: Benign. CARDIOVASCULAR: No murmur, gallop or click. LUNGS: Clear. EXTREMITIES: No edema. CENTRAL NERVOUS SYSTEM: The patient is sleepy. LABORATORY DATA: Hematocrit dropped down to 26.4. As per the staff, there was no melena or hematem esis. IMPRESSION: 1. Anemia. 2. Gastrointestinal bleeding which clinically seems to have stopped. 3. Thrombocytopenia, corrected. 4. Urinary tract infection. 5. Hypertension. 6. Renal failure. 7. 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 8. Atrial fibrillation. PLAN: Continue present care. Monitor H and H. Dictated By: JEFRY PRUETT/INOCENCIO Conf#: [id number] DID#: [id number]
[2016-11-09] VITALS (15 sets, daily range): BP systolic 136–176; BP diastolic 36–82; PULSE 57–78; RESP 18
[2016-11-09] MEDS: ACCUCHECK AT 2AM (Patients on SS coverage) XX SCH (02:07)
[2016-11-09] MEDS: morphine 2 MG INJ IV PRN (02:08)
[2016-11-09] MEDS: PANTOPRAZOLE (EC) 40 MG TAB PO SCH (06:18)
[2016-11-09] MEDS: hydrALAzine 20 MG INJ IV PRN ×2 (06:19→20:54)
[2016-11-09 07:52] LABS: POTASSIUM 4.2 mmol/L (3.5-5.1)
[2016-11-09 07:55] LABS: CREATININE 2.55 mg/dl (0.61-1.24)
[2016-11-09 07:56] LABS: CALCIUM 7.3 mg/dl (8.4-10.2)
[2016-11-09] MEDS: COLLAGENASE 30 GM TUBE TOP SCH (09:00)
[2016-11-09] MEDS: INSULIN ASPART [NOVOLOG] 3 ML PEN SC SCH ×4 (09:11→21:00)
[2016-11-09] MEDS: AMIODARONE 200 MG TAB PO SCH ×2 (09:46→20:53)
--- NOTE | 2016-11-09 11:40 | CONS ---
Date/Time of Note Date/Time of Note DATE: 11/09/16 TIME: 11:35 Assessment/Plan Assessment/Plan Chief Complaint/Hosp Course IMPRESSION: 1. Paroxysmal atrial fibrillation-in SR on IV amio 2. Hypertension. 3. Abnormal electrocardiogram, assess for acute coronary syndrome.-mildly positive troponin 4. Right bundle branch block pattern. 5. Cerebrovascular accident, question etiology, likely related to paroxysmal atrial fibrillation.-s/p TTE with bubble study 11/04 negative for definite PFO/ ASD 6. Encephalopathy. 7. Gastrointestinal bleed with ongoing GI evaluation-no signs of active bleeding at this time. 8. Possible urinary tract infection. 9. Renal failure. 10. Hyponatremia-resolved 11. Coagulopathy, mild. 12. Anemia. 13. Leukocytosis. Recc: -Tele -Continue PO amio as tolerated in attempt to maintain SR -Start BB to improve BP control -continue clonidine TTS with possible incrase to improve BP control -Continue abx's -Ongoing Heme/GI eval -Follow hgb closely Problems: Consultation Date/Type/Reason Admit Date/Time Oct 30, 2016 at 08:00 Initial Consult Date 11/03/16 Type of Consultation: Cardiology Reason for Consultation PAF Referring Provider: ABBY RAMOS MD Exam/Review of Systems Vital Signs Vitals Vital Signs Date Time Temp Pulse Resp B/P Pulse Ox O2 Delivery O2 Flow Rate FiO2 11/09/16 11:21 98.4 70 18 147/68 97 11/08/16 01:36 Room Air 11/06/16 08:00 3.0 Intake and Output 11/08/16 11/08/16 11/09/16 15:00 23:00 07:00 Intake Total 1290 ml 450 ml Output Total 650 ml 600 ml Balance 640 ml -150 ml Exam Review of Systems: CONSTITUTIONAL: No fevers, chills. PULMONARY: No sob CARDIOVASCULAR: No chest pain/palpitations GASTROINTESTINAL: No nausea/vomiting. GENITOURINARY: No hematuria/dysuria. MUSCULOSKELETAL: No myagias/arthalgias. PSYCHIATRIC: The patient denies depression. NEUROLOGIC: lethargic Constitutional: other (sleeping) Psych: no complaints Head: normocephalic ENMT: mucosa pink and moist Neck: jvd (9 cm water), supple Respiratory: diminished breath sounds (at bases/B) Cardiovascular: regular rate and rhythm Gastrointestinal: non-tender, soft Musculoskeletal: other (No focal deficits) Results Result Diagram: 11/08/16 0524 11/09/16 0625 Results 24 hrs Laboratory Tests Test 11/08/16 16:36 11/08/16 21:15 11/09/16 02:07 11/09/16 06:25 Bedside Glucose 190 188 156 Anion Gap 13 Blood Urea Nitrogen 22 H Calcium Level 7.3 L Carbon Dioxide Level 22 Chloride Level 104 Creatinine 2.55 H Glucose Level 135 # Potassium Level 4.2 Sodium Level 135 Test 11/09/16 08:33 Bedside Glucose 161 Medications Medications Current Medications Naloxone HCl (Narcan) 0.4 mg Q3M PRN IV DECREASED REPIRATORY RATE; Start at 05:00 Ondansetron HCl (Zofran Inj) 4 mg Q6H PRN IV NAUSEA AND/OR VOMITING; Start 06/08 at 05:00 Acetaminophen (Tylenol Liquid) 650 mg Q6H PRN PO PAIN LEVEL 1-3 OR FEVER; Start 10/30/16 at 05:00 Acetaminophen (Tylenol Tab) 650 mg Q6H PRN PO PAIN LEVEL 1-3 OR FEVER; Start at 05:00 Morphine Sulfate (morphine) 2 mg Q4H PRN IV PAIN LEVEL 7-10 Last administered on 11/09/16 02:08; Admin Dose 2 MG; Start 10/30/16 at 05:00 Zolpidem Tartrate (Ambien) 5 mg QHS PRN PO INSOMNIA; Start 10/30/16 at 05:00 Docusate Sodium (Colace) 100 mg Q12H PRN PO CONSTIPATION; Start 10/30/16 at 05: 00 IV Flush (NS 10 ml) 10 ml PRN PRN IV IV PROTOCOL; Start 10/30/16 at 19:00 Acetaminophen (Tylenol Supp) 650 mg Q6H PRN OR FEVER Last administered on 08:43; Admin Dose 650 MG; Start 10/31/16 at 09:00 Miscellaneous Information 1 ea NOTE XX ; Start 10/31/16 at 12:30 Glucose (Glutose) 15 gm Q15M PRN PO DECREASED GLUCOSE; Start 10/31/16 at 12:30 Glucose (Glutose) 22.5 gm Q15M PRN PO DECREASED GLUCOSE; Start 10/31/16 at 12: 30 Dextrose (D50w Syringe) 25 ml Q15M PRN IV DECREASED GLUCOSE; Start 10/31/16 at 12:30 Dextrose (D50w Syringe) 50 ml Q15M PRN IV DECREASED GLUCOSE; Start 10/31/16 at 12:30 Glucagon (Glucagen) 1 mg Q15M PRN IM DECREASED GLUCOSE; Start 10/31/16 at 12:30 Glucose (Glutose) 15 gm Q15M PRN BUCCAL DECREASED GLUCOSE; Start 10/31/16 at 12 :30 Hydralazine HCl 10 mg 10 mg Q4H PRN IV SBP GREATER THAN 170 Last administered on 11/09/16 06:19; Admin Dose 10 MG; Start 10/31/16 at 23:00 Ceftriaxone Sodium (Rocephin) 50 ml @ 100 mls/hr Q24H IVPB Last administered on 11/08/16 16:37; Admin Dose 100 MLS/HR; Start 11/02/16 at 16:30 Amiodarone HCl (Cordarone) 200 mg TID PO Last administered on 11/09/16 09:46; Admin Dose 200 MG; Start 11/05/16 at 13:00 Clonidine HCl (Catapres-Tts 2 Patch) 1 patch Q7D TRANSDERM Last administered on 11/05/16 13:53; Admin Dose 1 PATCH; Start 11/05/16 at 12:30 Collagenase (Santyl) 1 applic DAILY TOP Last administered on 11/08/16 08:02; Admin Dose 1 APPLIC; Start 11/06/16 at 17:00 Pantoprazole (Protonix Tab) 40 mg DAILY@06 PO Last administered on 11/09/16 06 :18; Admin Dose 40 MG; Start 11/08/16 at 06:00 Diagnostic Test (Pha) (Accucheck) 1 ea 02 XX Last administered on 11/09/16 02: 07; Admin Dose 1 EA; Start 11/08/16 at 02:00 LESLI SHEA Nov 09, 2016 11:39
--- NOTE | 2016-11-09 12:07 | CONS ---
Date/Time of Note Date/Time of Note DATE: 11/09/16 TIME: 12:05 Assessment/Plan Assessment/Plan Additional Assessment/Plan Assessment recommendations; 1. Patient admitted for anemia and respiratory failure with marked overall clinical improvement. Status post extubation several days ago. 2. Hypertension. 3. Renal insufficiency. 4. Status post metabolic encephalopathy with interval resolution as well. Continue current treatment. Consultation Date/Type/Reason Admit Date/Time Oct 30, 2016 at 08:00 Initial Consult Date 10/30/16 Type of Consultation: Pulmonary Referring Provider: ABBY RAMOS MD 24 HR Interval Summary Free Text/Dictation Patient condition is stable. Has been transferred out of ICU to telemetry unit. He is awake alert denies any shortness of breath, chest pain. General exam; elderly male, currently in no distress. Awake and alert. Exam/Review of Systems Vital Signs Vitals Vital Signs Date Time Temp Pulse Resp B/P Pulse Ox O2 Delivery O2 Flow Rate FiO2 11/09/16 11:21 98.4 70 18 147/68 97 11/08/16 01:36 Room Air 11/06/16 08:00 3.0 Intake and Output 11/08/16 11/08/16 11/09/16 15:00 23:00 07:00 Intake Total 1290 ml 450 ml Output Total 650 ml 600 ml Balance 640 ml -150 ml Exam HEENT exam is; supple neck, no JVD. No lymphadenopathy. Midline trachea. No thyromegaly. Pharynx is clear. Patient has fair dentition. Neck Chest examination; diminished but clear breath sounds bilaterally. S1-S2 audible, no murmurs. Regular rhythm. Abdomen examination; soft, nondistended. No organomegaly. Bowel sounds audible. Nontender. Extremity examination; no peripheral edema. Pulses 1+ bilaterally. [employer] examination; no focal deficit. Results Result Diagram: 11/08/16 0524 11/09/16 0625 Results 24 hrs Laboratory Tests Test 11/08/16 16:36 11/08/16 21:15 11/09/16 02:07 11/09/16 06:25 Bedside Glucose 190 188 156 Anion Gap 13 Blood Urea Nitrogen 22 H Calcium Level 7.3 L Carbon Dioxide Level 22 Chloride Level 104 Creatinine 2.55 H Glucose Level 135 # Potassium Level 4.2 Sodium Level 135 Test 11/09/16 08:33 Bedside Glucose 161 Medications Medications Current Medications Naloxone HCl (Narcan) 0.4 mg Q3M PRN IV DECREASED REPIRATORY RATE; Start at 05:00 Ondansetron HCl (Zofran Inj) 4 mg Q6H PRN IV NAUSEA AND/OR VOMITING; Start 06/08 at 05:00 Acetaminophen (Tylenol Liquid) 650 mg Q6H PRN PO PAIN LEVEL 1-3 OR FEVER; Start 10/30/16 at 05:00 Acetaminophen (Tylenol Tab) 650 mg Q6H PRN PO PAIN LEVEL 1-3 OR FEVER; Start at 05:00 Morphine Sulfate (morphine) 2 mg Q4H PRN IV PAIN LEVEL 7-10 Last administered on 11/09/16 02:08; Admin Dose 2 MG; Start 10/30/16 at 05:00 Zolpidem Tartrate (Ambien) 5 mg QHS PRN PO INSOMNIA; Start 10/30/16 at 05:00 Docusate Sodium (Colace) 100 mg Q12H PRN PO CONSTIPATION; Start 10/30/16 at 05: 00 IV Flush (NS 10 ml) 10 ml PRN PRN IV IV PROTOCOL; Start 10/30/16 at 19:00 Acetaminophen (Tylenol Supp) [address] FEVER Last administered on 08:43; Admin Dose 650 MG; Start 10/31/16 at 09:00 Miscellaneous Information 1 ea NOTE XX ; Start 10/31/16 at 12:30 Glucose (Glutose) 15 gm Q15M PRN PO DECREASED GLUCOSE; Start 10/31/16 at 12:30 Glucose (Glutose) 22.5 gm Q15M PRN PO DECREASED GLUCOSE; Start 10/31/16 at 12: 30 Dextrose (D50w Syringe) 25 ml Q15M PRN IV DECREASED GLUCOSE; Start 10/31/16 at 12:30 Dextrose (D50w Syringe) 50 ml Q15M PRN IV DECREASED GLUCOSE; Start 10/31/16 at 12:30 Glucagon (Glucagen) 1 mg Q15M PRN IM DECREASED GLUCOSE; Start 10/31/16 at 12:30 Glucose (Glutose) 15 gm Q15M PRN BUCCAL DECREASED GLUCOSE; Start 10/31/16 at 12 :30 Hydralazine HCl 10 mg 10 mg Q4H PRN IV SBP GREATER THAN 170 Last administered on 11/09/16 06:19; Admin Dose 10 MG; Start 10/31/16 at 23:00 Ceftriaxone Sodium (Rocephin) 50 ml @ 100 mls/hr Q24H IVPB Last administered on 11/08/16 16:37; Admin Dose 100 MLS/HR; Start 11/02/16 at 16:30 Collagenase (Santyl) 1 applic DAILY TOP Last administered on 11/08/16 08:02; Admin Dose 1 APPLIC; Start 11/06/16 at 17:00 Pantoprazole (Protonix Tab) 40 mg DAILY@06 PO Last administered on 11/09/16 06 :18; Admin Dose 40 MG; Start 11/08/16 at 06:00 Diagnostic Test (Pha) (Accucheck) 1 ea 02 XX Last administered on 11/09/16 02: 07; Admin Dose 1 EA; Start 11/08/16 at 02:00 Amiodarone HCl (Cordarone) 200 mg BID PO ; Start 11/09/16 at 21:00 Clonidine HCl (Catapres-Tts 3 Patch) 1 patch Q7D TRANSDERM ; Start 11/09/16 at 13:00 SUJIT MAXWELL Nov 09, 2016 12:07
[2016-11-09] MEDS ORDERED: CLONIDINE 0.3 MG/24 HR PATCH TRANSDERM SCH (13:00)
--- NOTE | 2016-11-09 14:39 | CONS ---
Date/Time of Note Date/Time of Note DATE: 11/09/16 TIME: 14:38 Assessment/Plan Assessment/Plan Chief Complaint/Hosp Course SUBJECTIVE: No acute changes. Awake, looks comfortable, no fevers. per staff gagging with food intake INDWELLINGS: left upper extremity PICC line placed on October 30 [address]. MICROBIOLOGY: Urine culture on admission grew E. coli. ANTIMICROBIALS: s/p Rocephin. PHYSICAL EXAMINATION: GENERAL: Fragile, elderly man who is lying comfortably in bed. HEENT: Head atraumatic, normocephalic. Sclerae anicteric. Buccal mucosa dry. NECK: Supple, trachea midline. CHEST: Rise symmetrical. Breath sounds diminished to bases. HEART: S1, S2. ABDOMEN: Soft, bowel tones present. EXTREMITIES: Without cyanosis. ASSESSMENT: 1. S/p acute respiratory failure==> extubated. 2. S/p urinary tract infection. 3. Acute anemia. PLAN: Clinically unchanged, stable off abx, continue aspiration precautions, kelly cx prn. DW staff Problems: Consultation Date/Type/Reason Admit Date/Time Oct 30, 2016 at 08:00 Initial Consult Date 11/03/16 Type of Consultation: id Referring Provider: ABBY RAMOS MD Exam/Review of Systems Vital Signs Vitals Vital Signs Date Time Temp Pulse Resp B/P Pulse Ox O2 Delivery O2 Flow Rate FiO2 11/09/16 12:00 62 11/09/16 11:21 98.4 18 147/68 97 11/08/16 01:36 Room Air 11/06/16 08:00 3.0 Intake and Output 11/08/16 11/08/16 11/09/16 15:00 23:00 07:00 Intake Total 1290 ml 450 ml Output Total 650 ml 600 ml Balance 640 ml -150 ml Results Result Diagram: 11/08/16 0524 11/09/16 0625 Results 24 hrs Laboratory Tests Test 11/08/16 16:36 11/08/16 21:15 11/09/16 02:07 11/09/16 06:25 Bedside Glucose 190 188 156 Anion Gap 13 Blood Urea Nitrogen 22 H Calcium Level 7.3 L Carbon Dioxide Level 22 Chloride Level 104 Creatinine 2.55 H Glucose Level 135 # Potassium Level 4.2 Sodium Level 135 Test 11/09/16 08:33 11/09/16 12:10 Bedside Glucose 161 187 Medications Medications Current Medications Naloxone HCl (Narcan) 0.4 mg Q3M PRN IV DECREASED REPIRATORY RATE; Start at 05:00 Ondansetron HCl (Zofran Inj) 4 mg Q6H PRN IV NAUSEA AND/OR VOMITING; Start 06/08 at 05:00 Acetaminophen (Tylenol Liquid) 650 mg Q6H PRN PO PAIN LEVEL 1-3 OR FEVER; Start 10/30/16 at 05:00 Acetaminophen (Tylenol Tab) 650 mg Q6H PRN PO PAIN LEVEL 1-3 OR FEVER; Start at 05:00 Morphine Sulfate (morphine) 2 mg Q4H PRN IV PAIN LEVEL 7-10 Last administered on 11/09/16 02:08; Admin Dose 2 MG; Start 10/30/16 at 05:00 Zolpidem Tartrate (Ambien) 5 mg QHS PRN PO INSOMNIA; Start 10/30/16 at 05:00 Docusate Sodium (Colace) 100 mg Q12H PRN PO CONSTIPATION; Start 10/30/16 at 05: 00 IV Flush (NS 10 ml) 10 ml PRN PRN IV IV PROTOCOL; Start 10/30/16 at 19:00 Acetaminophen (Tylenol Supp) 650 mg Q6H PRN [place] FEVER Last administered on 08:43; Admin Dose 650 MG; Start 10/31/16 at 09:00 Miscellaneous Information 1 ea NOTE XX ; Start 10/31/16 at 12:30 Glucose (Glutose) 15 gm Q15M PRN PO DECREASED GLUCOSE; Start 10/31/16 at 12:30 Glucose (Glutose) 22.5 gm Q15M PRN PO DECREASED GLUCOSE; Start 10/31/16 at 12: 30 Dextrose (D50w Syringe) 25 ml Q15M PRN IV DECREASED GLUCOSE; Start 10/31/16 at 12:30 Dextrose (D50w Syringe) 50 ml Q15M PRN IV DECREASED GLUCOSE; Start 10/31/16 at 12:30 Glucagon (Glucagen) 1 mg Q15M PRN IM DECREASED GLUCOSE; Start 10/31/16 at 12:30 Glucose (Glutose) 15 gm Q15M PRN BUCCAL DECREASED GLUCOSE; Start 10/31/16 at 12 :30 Hydralazine HCl 10 mg 10 mg Q4H PRN IV SBP GREATER THAN 170 Last administered on 11/09/16 06:19; Admin Dose 10 MG; Start 10/31/16 at 23:00 Ceftriaxone Sodium (Rocephin) 50 ml @ 100 mls/hr Q24H IVPB Last administered on 11/08/16 16:37; Admin Dose 100 MLS/HR; Start 11/02/16 at 16:30 Collagenase (Santyl) 1 applic DAILY TOP Last administered on 11/08/16 08:02; Admin Dose 1 APPLIC; Start 11/06/16 at 17:00 Pantoprazole (Protonix Tab) 40 mg DAILY@06 PO Last administered on 11/09/16 06 :18; Admin Dose 40 MG; Start 11/08/16 at 06:00 Diagnostic Test (Pha) (Accucheck) 1 ea 02 XX Last administered on 11/09/16 02: 07; Admin Dose 1 EA; Start 11/08/16 at 02:00 Amiodarone HCl (Cordarone) 200 mg BID PO ; Start 11/09/16 at 21:00 Clonidine HCl (Catapres-Tts 3 Patch) 1 patch Q7D TRANSDERM Last administered on 11/09/16 13:54; Admin Dose 1 PATCH; Start 11/09/16 at 13:00 KAYLA CASTREJON NP Nov 09, 2016 14:39
--- NOTE | 2016-11-09 15:33 | PN ---
DATE: 11/09/2016 There are no new developments. The patient is clinically stable. He has not had any further bloody bowel movements. His abdominal examination remains benign. PLAN: There are no new surgical recommendations other than for capsule endoscopy to be arranged for the patient after he is discharged. Dictated By: PALOMO HUGGINS/INOCENCIO Conf#: [id number] DID#: [id number]
--- NOTE | 2016-11-09 16:42 | CONS ---
Date/Time of Note Date/Time of Note DATE: 11/09/16 TIME: 16:41 Assessment/Plan Assessment/Plan Additional Assessment/Plan IMPRESSION: 1. Anemia. 2. Gastrointestinal bleeding which clinically seems to have stopped. 3. Thrombocytopenia, corrected. 4. Urinary tract infection. 5. Hypertension. 6. Renal failure. 7. 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 8. Atrial fibrillation. PLAN: Continue present care. Monitor H and H. capsule endoscopy as OP Consultation Date/Type/Reason Admit Date/Time Oct 30, 2016 at 08:00 Initial Consult Date 11/05/16 Type of Consultation: id Referring Provider: ABBY RAMOS MD 24 HR Interval Summary Free Text/Dictation c/o nausea Constitutional: improved Exam/Review of Systems Vital Signs Vitals Vital Signs Date Time Temp Pulse Resp B/P Pulse Ox O2 Delivery O2 Flow Rate FiO2 11/09/16 12:00 62 11/09/16 11:21 98.4 18 147/68 97 11/08/16 01:36 Room Air 11/06/16 08:00 3.0 Intake and Output 11/08/16 11/08/16 11/09/16 15:00 23:00 07:00 Intake Total 1290 ml 450 ml Output Total 650 ml 600 ml Balance 640 ml -150 ml Exam Constitutional: alert, oriented, well developed Psych: nl mood/affect, no complaints Head: atraumatic, normocephalic Eyes: EOMI, PERRL, nl conjunctiva, nl lids, nl sclera ENMT: nl external ears & nose, nl lips & teeth, nl nasal mucosa & septum Neck: non-tender, supple Respiratory: clear to auscultation, normal air movement Cardiovascular: nl pulses, regular rate and rhythm Gastrointestinal: nl liver, spleen, non-tender, soft Musculoskeletal: nl extremities to inspection, nl gait and stance Extremities: normal pulses Neurological: PARIMUTUEL CASHIER II-XII intact, nl mental status, nl speech, nl strength Skin: nl turgor, No rash or lesions Lymph: nl lymph nodes Results Result Diagram: 11/08/16 0524 11/09/16 0625 Results 24 hrs Laboratory Tests Test 11/08/16 21:15 11/09/16 02:07 11/09/16 06:25 11/09/16 08:33 Bedside Glucose 188 156 161 Anion Gap 13 Blood Urea Nitrogen 22 H Calcium Level 7.3 L Carbon Dioxide Level 22 Chloride Level 104 Creatinine 2.55 H Glucose Level 135 # Potassium Level 4.2 Sodium Level 135 Test 11/09/16 12:10 Bedside Glucose 187 Medications Medications Current Medications Naloxone HCl (Narcan) 0.4 mg Q3M PRN IV DECREASED REPIRATORY RATE; Start at 05:00 Ondansetron HCl (Zofran Inj) 4 mg Q6H PRN IV NAUSEA AND/OR VOMITING; Start 06/08 at 05:00 Acetaminophen (Tylenol Liquid) 650 mg Q6H PRN PO PAIN LEVEL 1-3 OR FEVER; Start 10/30/16 at 05:00 Acetaminophen (Tylenol Tab) 650 mg Q6H PRN PO PAIN LEVEL 1-3 OR FEVER; Start at 05:00 Morphine Sulfate (morphine) 2 mg Q4H PRN IV PAIN LEVEL 7-10 Last administered on 11/09/16 02:08; Admin Dose 2 MG; Start 10/30/16 at 05:00 Zolpidem Tartrate (Ambien) 5 mg QHS PRN PO INSOMNIA; Start 10/30/16 at 05:00 Docusate Sodium (Colace) 100 mg Q12H PRN PO CONSTIPATION; Start 10/30/16 at 05: 00 IV Flush (NS 10 ml) 10 ml PRN PRN IV IV PROTOCOL; Start 10/30/16 at 19:00 Acetaminophen (Tylenol Supp) 650 mg Q6H PRN [place] FEVER Last administered on 08:43; Admin Dose 650 MG; Start 10/31/16 at 09:00 Miscellaneous Information 1 ea NOTE XX ; Start 10/31/16 at 12:30 Glucose (Glutose) 15 gm Q15M PRN PO DECREASED GLUCOSE; Start 10/31/16 at 12:30 Glucose (Glutose) 22.5 gm Q15M PRN PO DECREASED GLUCOSE; Start 10/31/16 at 12: 30 Dextrose (D50w Syringe) 25 ml Q15M PRN IV DECREASED GLUCOSE; Start 10/31/16 at 12:30 Dextrose (D50w Syringe) 50 ml Q15M PRN IV DECREASED GLUCOSE; Start 10/31/16 at 12:30 Glucagon (Glucagen) 1 mg Q15M PRN IM DECREASED GLUCOSE; Start 10/31/16 at 12:30 Glucose (Glutose) 15 gm Q15M PRN BUCCAL DECREASED GLUCOSE; Start 10/31/16 at 12 :30 Hydralazine HCl (Apresoline) 10 mg Q4H PRN IV SBP GREATER THAN 170 Last administered on 11/09/16 06:19; Admin Dose 10 MG; Start 10/31/16 at 23:00 Collagenase (Santyl) 1 applic DAILY TOP Last administered on 11/08/16 08:02; Admin Dose 1 APPLIC; Start 11/06/16 at 17:00 Pantoprazole (Protonix Tab) 40 mg DAILY@06 PO Last administered on 11/09/16 06 :18; Admin Dose 40 MG; Start 11/08/16 at 06:00 Diagnostic Test (Pha) (Accucheck) 1 ea 02 XX Last administered on 11/09/16 02: 07; Admin Dose 1 EA; Start 11/08/16 at 02:00 Amiodarone HCl (Cordarone) 200 mg BID PO ; Start 11/09/16 at 21:00 Clonidine HCl (Catapres-Tts 3 Patch) 1 patch Q7D TRANSDERM Last administered on 11/09/16 13:54; Admin Dose 1 PATCH; Start 11/09/16 at 13:00 JEFRY CERNA MD Nov 09, 2016 16:42
[2016-11-10] VITALS (14 sets, daily range): BP systolic 145–179; BP diastolic 68–83; PULSE 60–75; RESP 16–20
[2016-11-10] MEDS: ACCUCHECK AT 2AM (Patients on SS coverage) XX SCH (02:00)
[2016-11-10] MEDS: hydrALAzine 20 MG INJ IV PRN ×2 (06:18→22:06)
[2016-11-10] MEDS: PANTOPRAZOLE (EC) 40 MG TAB PO SCH (06:20)
[2016-11-10] MEDS: INSULIN ASPART [NOVOLOG] 3 ML PEN SC SCH ×4 (07:25→21:56)
[2016-11-10] MEDS: COLLAGENASE 30 GM TUBE TOP SCH (09:00)
[2016-11-10] MEDS: AMIODARONE 200 MG TAB PO SCH ×2 (09:57→21:53)
--- NOTE | 2016-11-10 10:17 | PN ---
DATE: 11/10/2016 The patient remains clinically stable without evidence of GI bleed. PLAN: As there are no further surgical recommendations. I will sign off and see again p.r.n. your request. Dictated By: PALOMO HUGGINS/INOCENCIO Conf#: [id number] DID#: [id number]
[2016-11-10 10:44] LABS: ADD SCAN DIFF NO
[2016-11-10 11:19] LABS: BASOPHIL # 0.1 10^3/ul (0.0-0.1); BASOPHILS % 0.5 % (0.0-2.0); EOSINOPHILS # 0.5 10^3/ul (0.0-0.5); EOSINOPHILS % 2.8 % (0.0-7.0); HEMATOCRIT 28.7 % (42.0-52.0); HEMOGLOBIN 9.1 g/dl (14.0-18.0); LYMPHOCYTES # 1.1 10^3/ul (0.8-2.9); LYMPHOCYTES % 6.9 % (15.0-51.0); MEAN CORPUSCULAR HGB CONC 31.7 g/dl (32.0-37.0); MEAN CORPUSCULAR VOLUME 91.4 fl (82.0-101.0); MEAN PLATELET VOLUME 10.7 fl (7.4-10.4); MONOCYTE # 0.6 10^3/ul (0.3-0.9); MONOCYTES % 3.8 % (0.0-11.0); NEUTROPHIL # 13.5 10^3/ul (1.6-7.5); NEUTROPHILS % 85.4 % (39.0-77.0); RED BLOOD COUNT 3.14 10^6/ul (4.70-6.10); WHITE BLOOD COUNT 15.8 10^3/ul (4.8-10.8)
[2016-11-10 11:21] LABS: PLATELET COUNT 473 10^3/UL (140-415)
--- NOTE | 2016-11-10 11:24 | CONS ---
Date/Time of Note Date/Time of Note DATE: 11/10/16 TIME: 11:23 Assessment/Plan Assessment/Plan Additional Assessment/Plan IMPRESSION: 1. Anemia. 2. Gastrointestinal bleeding which clinically seems to have stopped.ht stable 3. Thrombocytopenia, corrected. 4. Urinary tract infection. 5. Hypertension. 6. Renal failure. 7. 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 8. Atrial fibrillation. PLAN: Continue present care. Monitor H and H. capsule endoscopy as OP Consultation Date/Type/Reason Admit Date/Time Oct 30, 2016 at 08:00 Initial Consult Date 11/05/16 Type of Consultation: id Referring Provider: ABBY RAMOS MD 24 HR Interval Summary Free Text/Dictation discussed with staff,no bleeding Constitutional: no complaints Exam/Review of Systems Vital Signs Vitals Vital Signs Date Time Temp Pulse Resp B/P Pulse Ox O2 Delivery O2 Flow Rate FiO2 11/10/16 08:11 75 11/10/16 07:25 97.5 18 145/83 98 11/08/16 01:36 Room Air 11/06/16 08:00 3.0 Intake and Output 11/09/16 11/09/16 11/10/16 15:00 23:00 07:00 Intake Total 600 ml 150 ml Output Total 500 ml 550 ml Balance 100 ml -400 ml Exam Constitutional: alert, oriented, well developed Psych: nl mood/affect, no complaints Head: atraumatic, normocephalic Eyes: EOMI, PERRL, nl conjunctiva, nl lids, nl sclera ENMT: nl external ears & nose, nl lips & teeth, nl nasal mucosa & septum Neck: non-tender, supple Respiratory: clear to auscultation, normal air movement Cardiovascular: nl pulses, regular rate and rhythm Gastrointestinal: nl liver, spleen, non-tender, soft Musculoskeletal: nl extremities to inspection, nl gait and stance Extremities: normal pulses Neurological: CDL INSTRUCTOR II-XII intact, nl mental status, nl speech, nl strength Skin: nl turgor, No rash or lesions Lymph: nl lymph nodes Results Result Diagram: 11/10/16 1028 11/09/16 0625 Results 24 hrs Laboratory Tests Test 11/09/16 12:10 11/09/16 17:40 11/09/16 21:00 11/10/16 08:11 Bedside Glucose 187 141 114 119 Test 11/10/16 10:28 Basophils # 0.1 Basophils % 0.5 Eosinophils # 0.5 Eosinophils % 2.8 Hematocrit 28.7 L Hemoglobin 9.1 L Lymphocytes # 1.1 Lymphocytes % 6.9 L Mean Corpuscular Hemoglobin 29.0 Mean Corpuscular Hemoglobin Concent 31.7 L Mean Corpuscular Volume 91.4 Mean Platelet Volume 10.7 H Monocytes # 0.6 Monocytes % 3.8 Neutrophils # 13.5 H Neutrophils % 85.4 H Nucleated Red Blood Cells # 0.0 Nucleated Red Blood Cells % 0.0 Platelet Count 473 #H Red Blood Count 3.14 L Red Cell Distribution Width 14.0 White Blood Count 15.8 #H Medications Medications Current Medications Naloxone HCl (Narcan) 0.4 mg Q3M PRN IV DECREASED REPIRATORY RATE; Start at 05:00 Ondansetron HCl (Zofran Inj) 4 mg Q6H PRN IV NAUSEA AND/OR VOMITING; Start 06/08 at 05:00 Acetaminophen (Tylenol Liquid) 650 mg Q6H PRN PO PAIN LEVEL 1-3 OR FEVER; Start 10/30/16 at 05:00 Acetaminophen (Tylenol Tab) 650 mg Q6H PRN PO PAIN LEVEL 1-3 OR FEVER; Start at 05:00 Morphine Sulfate (morphine) 2 mg Q4H PRN IV PAIN LEVEL 7-10 Last administered on 11/09/16 02:08; Admin Dose 2 MG; Start 10/30/16 at 05:00 Zolpidem Tartrate (Ambien) 5 mg QHS PRN PO INSOMNIA; Start 10/30/16 at 05:00 Docusate Sodium (Colace) 100 mg Q12H PRN PO CONSTIPATION; Start 10/30/16 at 05: 00 IV Flush (NS 10 ml) 10 ml PRN PRN IV IV PROTOCOL; Start 10/30/16 at 19:00 Acetaminophen (Tylenol Supp) 650 mg Q6H PRN [place] FEVER Last administered on 08:43; Admin Dose 650 MG; Start 10/31/16 at 09:00 Miscellaneous Information 1 ea NOTE XX ; Start 10/31/16 at 12:30 Glucose (Glutose) 15 gm Q15M PRN PO DECREASED GLUCOSE; Start 10/31/16 at 12:30 Glucose (Glutose) 22.5 gm Q15M PRN PO DECREASED GLUCOSE; Start 10/31/16 at 12: 30 Dextrose (D50w Syringe) 25 ml Q15M PRN IV DECREASED GLUCOSE; Start 10/31/16 at 12:30 Dextrose (D50w Syringe) 50 ml Q15M PRN IV DECREASED GLUCOSE; Start 10/31/16 at 12:30 Glucagon (Glucagen) 1 mg Q15M PRN IM DECREASED GLUCOSE; Start 10/31/16 at 12:30 Glucose (Glutose) 15 gm Q15M PRN BUCCAL DECREASED GLUCOSE; Start 10/31/16 at 12 :30 Hydralazine HCl (Apresoline) 10 mg Q4H PRN IV SBP GREATER THAN 170 Last administered on 11/10/16 06:18; Admin Dose 10 MG; Start 10/31/16 at 23:00 Collagenase (Santyl) 1 applic DAILY TOP Last administered on 11/08/16 08:02; Admin Dose 1 APPLIC; Start 11/06/16 at 17:00 Pantoprazole (Protonix Tab) 40 mg DAILY@06 PO Last administered on 11/10/16 06 :20; Admin Dose 40 MG; Start 11/08/16 at 06:00 Diagnostic Test (Pha) (Accucheck) 1 ea 02 XX Last administered on 11/09/16 02: 07; Admin Dose 1 EA; Start 11/08/16 at 02:00 Amiodarone HCl (Cordarone) 200 mg BID PO Last administered on 11/10/16 09:57; Admin Dose 200 MG; Start 11/09/16 at 21:00 Clonidine HCl (Catapres-Tts 3 Patch) 1 patch Q7D TRANSDERM Last administered on 11/09/16 13:54; Admin Dose 1 PATCH; Start 11/09/16 at 13:00 JEFRY CERNA MD Nov 10, 2016 11:24
--- NOTE | 2016-11-10 11:26 | CONS ---
Date/Time of Note Date/Time of Note DATE: 11/10/16 TIME: 11:25 Assessment/Plan Assessment/Plan Additional Assessment/Plan 1. Paroxysmal atrial fibrillation-in SR on IV amio - now in SINUS, rate controlled. STABLE HR now. 2. Hypertension- BP in good range - con't MEd rx - BETTER now 3. Abnormal electrocardiogram, assess for acute coronary syndrome-mildly positive troponin- MED rX for now 4. Right bundle branch block pattern - stable VS. 5. Cerebrovascular accident, question etiology, likely related to paroxysmal atrial fibrillation.-s/p TTE with bubble study 11/04 negative for definite PFO/ ASD 6. Encephalopathy- much better - ambulating with assistance now. 7. Gastrointestinal bleed with ongoing GI evaluation - seen by GI, outpt endoscopy capsule advised. 8. Possible urinary tract infection. 9. Renal failure. 10. Hyponatremia. 11. Coagulopathy, mild. 12. Anemia. 13. Leukocytosis. Consultation Date/Type/Reason Admit Date/Time Oct 30, 2016 at 08:00 Initial Consult Date 11/05/16 Type of Consultation: id Referring Provider: ABBY RAMOS MD 24 HR Interval Summary Free Text/Dictation much better - ambulating with assistance now. ROS: No fever, no chills, no nausea, no vomiting, no diarrhea/constipation No recent weight changes No chest pain, no PND, no orthopnea No dizziness, blurred vision No thirst, no heat or cold intolerance Exam/Review of Systems Vital Signs Vitals Vital Signs Date Time Temp Pulse Resp B/P Pulse Ox O2 Delivery O2 Flow Rate FiO2 11/10/16 08:11 75 11/10/16 07:25 97.5 18 145/83 98 11/08/16 01:36 Room Air 11/06/16 08:00 3.0 Intake and Output 11/09/16 11/09/16 11/10/16 15:00 23:00 07:00 Intake Total 600 ml 150 ml Output Total 500 ml 550 ml Balance 100 ml -400 ml Exam General: WN/WD/NAD, AOx1-2 more alert HEENT: Unicetric/atraumatic/EOMI (follow commands) NECK: JVD elevated, no thyromegaly Lymph: no lymphadenopathy HEART: regular with no S3, II/ systolic murmur at apex LUNGS: Coarse sounds ABD: soft, NT, ND, +BS : Intact Neuro: non focal SKIN: chronic changes EXT: trace edema Results Result Diagram: 11/10/16 1028 11/09/16 0625 Results 24 hrs Laboratory Tests Test 11/09/16 12:10 11/09/16 17:40 11/09/16 21:00 11/10/16 08:11 Bedside Glucose 187 141 114 119 Test 11/10/16 10:28 Basophils # 0.1 Basophils % 0.5 Eosinophils # 0.5 Eosinophils % 2.8 Hematocrit 28.7 L Hemoglobin 9.1 L Lymphocytes # 1.1 Lymphocytes % 6.9 L Mean Corpuscular Hemoglobin 29.0 Mean Corpuscular Hemoglobin Concent 31.7 L Mean Corpuscular Volume 91.4 Mean Platelet Volume 10.7 H Monocytes # 0.6 Monocytes % 3.8 Neutrophils # 13.5 H Neutrophils % 85.4 H Nucleated Red Blood Cells # 0.0 Nucleated Red Blood Cells % 0.0 Platelet Count 473 #H Red Blood Count 3.14 L Red Cell Distribution Width 14.0 White Blood Count 15.8 #H Medications Medications Current Medications Naloxone HCl (Narcan) 0.4 mg Q3M PRN IV DECREASED REPIRATORY RATE; Start at 05:00 Ondansetron HCl (Zofran Inj) 4 mg Q6H PRN IV NAUSEA AND/OR VOMITING; Start 06/08 at 05:00 Acetaminophen (Tylenol Liquid) 650 mg Q6H PRN PO PAIN LEVEL 1-3 OR FEVER; Start 10/30/16 at 05:00 Acetaminophen (Tylenol Tab) 650 mg Q6H PRN PO PAIN LEVEL 1-3 OR FEVER; Start at 05:00 Morphine Sulfate (morphine) 2 mg Q4H PRN IV PAIN LEVEL 7-10 Last administered on 11/09/16t 02:08; Admin Dose 2 MG; Start 10/30/16 at 05:00 Zolpidem Tartrate (Ambien) 5 mg QHS PRN PO INSOMNIA; Start 10/30/16 at 05:00 Docusate Sodium (Colace) 100 mg Q12H PRN PO CONSTIPATION; Start 10/30/16 at 05: 00 IV Flush (NS 10 ml) 10 ml PRN PRN IV IV PROTOCOL; Start 10/30/16 at 19:00 Acetaminophen (Tylenol Supp) 650 mg Q6H PRN [place] FEVER Last administered on 08:43; Admin Dose 650 MG; Start 10/31/16 at 09:00 Miscellaneous Information 1 ea NOTE XX ; Start 10/31/16 at 12:30 Glucose (Glutose) 15 gm Q15M PRN PO DECREASED GLUCOSE; Start 10/31/16 at 12:30 Glucose (Glutose) 22.5 gm Q15M PRN PO DECREASED GLUCOSE; Start 10/31/16 at 12: 30 Dextrose (D50w Syringe) 25 ml Q15M PRN IV DECREASED GLUCOSE; Start 10/31/16 at 12:30 Dextrose (D50w Syringe) 50 ml Q15M PRN IV DECREASED GLUCOSE; Start 10/31/16 at 12:30 Glucagon (Glucagen) 1 mg Q15M PRN IM DECREASED GLUCOSE; Start 10/31/16 at 12:30 Glucose (Glutose) 15 gm Q15M PRN BUCCAL DECREASED GLUCOSE; Start 10/31/16 at 12 :30 Hydralazine HCl (Apresoline) 10 mg Q4H PRN IV SBP GREATER THAN 170 Last administered on 11/10/16 06:18; Admin Dose 10 MG; Start 10/31/16 at 23:00 Collagenase (Santyl) 1 applic DAILY TOP Last administered on 11/08/16 08:02; Admin Dose 1 APPLIC; Start 11/06/16 at 17:00 Pantoprazole (Protonix Tab) 40 mg DAILY@06 PO Last administered on 11/10/16 06 :20; Admin Dose 40 MG; Start 11/08/16 at 06:00 Diagnostic Test (Pha) (Accucheck) 1 ea 02 XX Last administered on 11/09/16 02: 07; Admin Dose 1 EA; Start 11/08/16 at 02:00 Amiodarone HCl (Cordarone) 200 mg BID PO Last administered on 11/10/16 09:57; Admin Dose 200 MG; Start 11/09/16 at 21:00 Clonidine HCl (Catapres-Tts 3 Patch) 1 patch Q7D TRANSDERM Last administered on 11/09/16 13:54; Admin Dose 1 PATCH; Start 11/09/16 at 13:00 HERBERTH ZUNIGA MD Nov 10, 2016 11:26
--- NOTE | 2016-11-10 14:03 | CONS ---
Date/Time of Note Date/Time of Note DATE: 11/10/16 TIME: 13:56 Assessment/Plan Assessment/Plan Chief Complaint/Hosp Course The patient is a 62 year old male with GIB s/p EGD and colonoscopy on 10/30/16 with likely bleeding source is between 2nd portion of duodenum and ileum ( portion of gut not reachable with standard endoscopy). The antrum appeared thickened status post random biopsy showed showed chronic gastritis and benign lymphoid aggregates but no evidence of H. pylori and no evidence of intestinal metaplasia, dysplasia or malignancy. CT enterography showed 1. Small punctate focus of gas in the region of the medial duodenal bulb is likely a small diverticulum or normal, a duodenal ulcer is a consideration believed to be less likely. # Normocytic anemia, likely related to GIB, possible anemia of chronic inflammation or chronic kidney disease. - Hemoglobin currently fairly stable at 9.1, transfuse < 8. - Iron panel suggests anemia of chronic inflammation, retic count inappropriately low; pending ferritin, Vitamin B12, folate, epo level - LDH elevated, will check haptoglobin - agree with capsule endoscopy as out patient # Leukocytosis, likely reactive. WBC did rise to 15. pt has a stage II decub which may be infected. will order blood cx x 2 # Thrombocytosis - likely reactive. -as stated above will order blood cx Will continue to follow. Problems: Consultation Date/Type/Reason Admit Date/Time Oct 30, 2016 at 08:00 Initial Consult Date 11/05/16 Type of Consultation: Hematology Reason for Consultation anemia Referring Provider: ABBY RAMOS MD 24 HR Interval Summary Free Text/Dictation no more GI bleed per nurse. H and H stable Exam/Review of Systems Vital Signs Vitals Vital Signs Date Time Temp Pulse Resp B/P Pulse Ox O2 Delivery O2 Flow Rate FiO2 11/10/16 12:10 67 11/10/16 11:48 97.6 18 149/68 96 11/08/16 01:36 Room Air 11/06/16 08:00 3.0 Intake and Output 11/09/16 11/09/16 11/10/16 15:00 23:00 07:00 Intake Total 600 ml 150 ml Output Total 500 ml 550 ml Balance 100 ml -400 ml Exam Constitutional: frail Head: atraumatic, normocephalic Eyes: nl conjunctiva ENMT: nl external ears & nose Neck: non-tender, supple Respiratory: clear to auscultation, normal air movement Cardiovascular: regular rate and rhythm Gastrointestinal: soft Musculoskeletal: nl extremities to inspection, nl gait and stance Extremities: normal pulses Results Result Diagram: 11/10/16 1028 11/09/16 0625 Results 24 hrs Laboratory Tests Test 11/09/16 17:40 11/09/16 21:00 11/10/16 08:11 11/10/16 10:28 Bedside Glucose 141 114 119 Basophils # 0.1 Basophils % 0.5 Eosinophils # 0.5 Eosinophils % 2.8 Hematocrit 28.7 L Hemoglobin 9.1 L Lymphocytes # 1.1 Lymphocytes % 6.9 L Mean Corpuscular Hemoglobin 29.0 Mean Corpuscular Hemoglobin Concent 31.7 L Mean Corpuscular Volume 91.4 Mean Platelet Volume 10.7 H Monocytes # 0.6 Monocytes % 3.8 Neutrophils # 13.5 H Neutrophils % 85.4 H Nucleated Red Blood Cells # 0.0 Nucleated Red Blood Cells % 0.0 Platelet Count 473 #H Red Blood Count 3.14 L Red Cell Distribution Width 14.0 White Blood Count 15.8 #H Test 11/10/16 11:28 Bedside Glucose 143 Medications Medications Current Medications Naloxone HCl (Narcan) 0.4 mg Q3M PRN IV DECREASED REPIRATORY RATE; Start at 05:00 Ondansetron HCl (Zofran Inj) 4 mg Q6H PRN IV NAUSEA AND/OR VOMITING; Start 06/08 at 05:00 Acetaminophen (Tylenol Liquid) 650 mg Q6H PRN PO PAIN LEVEL 1-3 OR FEVER; Start 10/30/16 at 05:00 Acetaminophen (Tylenol Tab) 650 mg Q6H PRN PO PAIN LEVEL 1-3 OR FEVER; Start at 05:00 Morphine Sulfate (morphine) 2 mg Q4H PRN IV PAIN LEVEL 7-10 Last administered on 11/09/16t 02:08; Admin Dose 2 MG; Start 10/30/16 at 05:00 Zolpidem Tartrate (Ambien) 5 mg QHS PRN PO INSOMNIA; Start 10/30/16 at 05:00 Docusate Sodium (Colace) 100 mg Q12H PRN PO CONSTIPATION; Start 10/30/16 at 05: 00 IV Flush (NS 10 ml) 10 ml PRN PRN IV IV PROTOCOL; Start 10/30/16 at 19:00 Acetaminophen (Tylenol Supp) 650 mg Q6H PRN [place] FEVER Last administered on 08:43; Admin Dose 650 MG; Start 10/31/16 at 09:00 Miscellaneous Information 1 ea NOTE XX ; Start 10/31/16 at 12:30 Glucose (Glutose) 15 gm Q15M PRN PO DECREASED GLUCOSE; Start 10/31/16 at 12:30 Glucose (Glutose) 22.5 gm Q15M PRN PO DECREASED GLUCOSE; Start 10/31/16 at 12: 30 Dextrose (D50w Syringe) 25 ml Q15M PRN IV DECREASED GLUCOSE; Start 10/31/16 at 12:30 Dextrose (D50w Syringe) 50 ml Q15M PRN IV DECREASED GLUCOSE; Start 10/31/16 at 12:30 Glucagon (Glucagen) 1 mg Q15M PRN IM DECREASED GLUCOSE; Start 10/31/16 at 12:30 Glucose (Glutose) 15 gm Q15M PRN BUCCAL DECREASED GLUCOSE; Start 10/31/16 at 12 :30 Hydralazine HCl (Apresoline) 10 mg Q4H PRN IV SBP GREATER THAN 170 Last administered on 11/10/16 06:18; Admin Dose 10 MG; Start 10/31/16 at 23:00 Collagenase (Santyl) 1 applic DAILY TOP Last administered on 11/08/16 08:02; Admin Dose 1 APPLIC; Start 11/06/16 at 17:00 Pantoprazole (Protonix Tab) 40 mg DAILY@06 PO Last administered on 11/10/16 06 :20; Admin Dose 40 MG; Start 11/08/16 at 06:00 Diagnostic Test (Pha) (Accucheck) 1 ea 02 XX Last administered on 11/09/16 02: 07; Admin Dose 1 EA; Start 11/08/16 at 02:00 Amiodarone HCl (Cordarone) 200 mg BID PO Last administered on 11/10/16 09:57; Admin Dose 200 MG; Start 11/09/16 at 21:00 Clonidine HCl (Catapres-Tts 3 Patch) 1 patch Q7D TRANSDERM Last administered on 11/09/16 13:54; Admin Dose 1 PATCH; Start 11/09/16 at 13:00 RACHEL HERNANDEZ M.D. Nov 10, 2016 14:03
--- NOTE | 2016-11-10 14:59 | CONS ---
Date/Time of Note Date/Time of Note DATE: 11/10/16 TIME: 14:58 Assessment/Plan Assessment/Plan Chief Complaint/Hosp Course SUBJECTIVE: No acute changes. Alert, looks comfortable, no fevers. INDWELLINGS: left upper extremity PICC line placed on October 30 [address]. MICROBIOLOGY: Urine culture on admission grew E. coli. ANTIMICROBIALS: s/p Rocephin. PHYSICAL EXAMINATION: GENERAL: Fragile, elderly man who is lying comfortably in bed. HEENT: Head atraumatic, normocephalic. Sclerae anicteric. Buccal mucosa dry. NECK: Supple, trachea midline. CHEST: Rise symmetrical. Breath sounds diminished to bases. HEART: S1, S2. ABDOMEN: Soft, bowel tones present. EXTREMITIES: Without cyanosis. ASSESSMENT: 1. S/p acute respiratory failure==> extubated. 2. S/p urinary tract infection. 3. Acute anemia. PLAN: Stable off abx [facility] staff Problems: Consultation Date/Type/Reason Admit Date/Time Oct 30, 2016 at 08:00 Initial Consult Date 11/03/16 Type of Consultation: id Referring Provider: ABBY RAMOS MD Exam/Review of Systems Vital Signs Vitals Vital Signs Date Time Temp Pulse Resp B/P Pulse Ox O2 Delivery O2 Flow Rate FiO2 11/10/16 12:10 67 11/10/16 11:48 97.6 18 149/68 96 11/08/16 01:36 Room Air 11/06/16 08:00 3.0 Intake and Output 11/09/16 11/09/16 11/10/16 15:00 23:00 07:00 Intake Total 600 ml 150 ml Output Total 500 ml 550 ml Balance 100 ml -400 ml Results Result Diagram: 11/10/16 1028 11/09/16 0625 Results 24 hrs Laboratory Tests Test 11/09/16 17:40 11/09/16 21:00 11/10/16 08:11 11/10/16 10:28 Bedside Glucose 141 114 119 Basophils # 0.1 Basophils % 0.5 Eosinophils # 0.5 Eosinophils % 2.8 Hematocrit 28.7 L Hemoglobin 9.1 L Lymphocytes # 1.1 Lymphocytes % 6.9 L Mean Corpuscular Hemoglobin 29.0 Mean Corpuscular Hemoglobin Concent 31.7 L Mean Corpuscular Volume 91.4 Mean Platelet Volume 10.7 H Monocytes # 0.6 Monocytes % 3.8 Neutrophils # 13.5 H Neutrophils % 85.4 H Nucleated Red Blood Cells # 0.0 Nucleated Red Blood Cells % 0.0 Platelet Count 473 #H Red Blood Count 3.14 L Red Cell Distribution Width 14.0 White Blood Count 15.8 #H Test 11/10/16 11:28 Bedside Glucose 143 Medications Medications Current Medications Naloxone HCl (Narcan) 0.4 mg Q3M PRN IV DECREASED REPIRATORY RATE; Start at 05:00 Ondansetron HCl (Zofran Inj) 4 mg Q6H PRN IV NAUSEA AND/OR VOMITING; Start 06/08 at 05:00 Acetaminophen (Tylenol Liquid) 650 mg Q6H PRN PO PAIN LEVEL 1-3 OR FEVER; Start 10/30/16 at 05:00 Acetaminophen (Tylenol Tab) 650 mg Q6H PRN PO PAIN LEVEL 1-3 OR FEVER; Start at 05:00 Morphine Sulfate (morphine) 2 mg Q4H PRN IV PAIN LEVEL 7-10 Last administered on 11/09/16 02:08; Admin Dose 2 MG; Start 10/30/16 at 05:00 Zolpidem Tartrate (Ambien) 5 mg QHS PRN PO INSOMNIA; Start 10/30/16 at 05:00 Docusate Sodium (Colace) 100 mg Q12H PRN PO CONSTIPATION; Start 10/30/16 at 05: 00 IV Flush (NS 10 ml) 10 ml PRN PRN IV IV PROTOCOL; Start 10/30/16 at 19:00 Acetaminophen (Tylenol Supp) 650 mg Q6H PRN [place] FEVER Last administered on 08:43; Admin Dose 650 MG; Start 10/31/16 at 09:00 Miscellaneous Information 1 ea NOTE XX ; Start 10/31/16 at 12:30 Glucose (Glutose) 15 gm Q15M PRN PO DECREASED GLUCOSE; Start 10/31/16 at 12:30 Glucose (Glutose) 22.5 gm Q15M PRN PO DECREASED GLUCOSE; Start 10/31/16 at 12: 30 Dextrose (D50w Syringe) 25 ml Q15M PRN IV DECREASED GLUCOSE; Start 10/31/16 at 12:30 Dextrose (D50w Syringe) 50 ml Q15M PRN IV DECREASED GLUCOSE; Start 10/31/16 at 12:30 Glucagon (Glucagen) 1 mg Q15M PRN IM DECREASED GLUCOSE; Start 10/31/16 at 12:30 Glucose (Glutose) 15 gm Q15M PRN BUCCAL DECREASED GLUCOSE; Start 10/31/16 at 12 :30 Hydralazine HCl (Apresoline) 10 mg Q4H PRN IV SBP GREATER THAN 170 Last administered on 11/10/16 06:18; Admin Dose 10 MG; Start 10/31/16 at 23:00 Collagenase (Santyl) 1 applic DAILY TOP Last administered on 11/08/16 08:02; Admin Dose 1 APPLIC; Start 11/06/16 at 17:00 Pantoprazole (Protonix Tab) 40 mg DAILY@06 PO Last administered on 11/10/16 06 :20; Admin Dose 40 MG; Start 11/08/16 at 06:00 Diagnostic Test (Pha) (Accucheck) 1 ea 02 XX Last administered on 11/09/16 02: 07; Admin Dose 1 EA; Start 11/08/16 at 02:00 Amiodarone HCl (Cordarone) 200 mg BID PO Last administered on 11/10/16 09:57; Admin Dose 200 MG; Start 11/09/16 at 21:00 Clonidine HCl (Catapres-Tts 3 Patch) 1 patch Q7D TRANSDERM Last administered on 11/09/16 13:54; Admin Dose 1 PATCH; Start 11/09/16 at 13:00 KAYLA CASTREJON NP Nov 10, 2016 14:59
--- NOTE | 2016-11-10 18:06 | RADRPT ---
Vent Rate: 73 bpm RR Interval: 0 msec CA Interval: 304 msec QRS Duration: 136 msec QT Interval: 494 msec QTC Interval: 544 msec P-R-T [place]: 0 - 53 - 25 degrees Sinus rhythm with 1st degree AV block Right bundle branch block Abnormal ECG Electronically Signed By: Moustapha Newton [id number]
--- NOTE | 2016-11-10 23:15 | PN ---
Date/Time of Note Date/Time of Note DATE: 11/10/16 TIME: 23:14 Assessment/Plan VTE Prophylaxis VTE Prophylaxis Intervention: other Lines/Catheters IV Catheter Type (from Nrs): Saline Lock Urinary Cath still in place: Yes Reason Cath still needed: other (indicate) Assessment/Plan Chief Complaint/Hosp Course IMPRESSION: 1. Patient has massive gastrointestinal bleed.better 2. HYPOKALEMIA 3. Metabolic acidosis and acute kidney injury.better 4. cva 5. Hypoalbuminemia. 6 thrombocytopenia better 7 uti plan snf ck labs Problems: Subjective 24 Hr Interval Summary Cardiovascular: no complaints Gastrointestinal: no complaints Genitourinary: no complaints Exam/Review of Systems Vital Signs Vitals Vital Signs Date Time Temp Pulse Resp B/P Pulse Ox O2 Delivery O2 Flow Rate FiO2 11/10/16 20:28 98.4 65 20 179/79 97 11/08/16 01:36 Room Air 11/06/16 08:00 3.0 Intake and Output 11/09/16 11/09/16 11/10/16 15:00 23:00 07:00 Intake Total 600 ml 150 ml Output Total 500 ml 550 ml Balance 100 ml -400 ml Exam Respiratory: clear to auscultation Cardiovascular: regular rate and rhythm Gastrointestinal: soft Musculoskeletal: nl extremities to inspection Extremities: normal pulses Results Result Diagram: 11/10/16 1028 11/09/16 0625 Results 24 hrs Laboratory Tests Test 11/10/16 08:11 11/10/16 10:28 11/10/16 11:28 11/10/16 17:02 Bedside Glucose 119 143 262 H Basophils # 0.1 Basophils % 0.5 Eosinophils # 0.5 Eosinophils % 2.8 Hematocrit 28.7 L Hemoglobin 9.1 L Lymphocytes # 1.1 Lymphocytes % 6.9 L Mean Corpuscular Hemoglobin 29.0 Mean Corpuscular Hemoglobin Concent 31.7 L Mean Corpuscular Volume 91.4 Mean Platelet Volume 10.7 H Monocytes # 0.6 Monocytes % 3.8 Neutrophils # 13.5 H Neutrophils % 85.4 H Nucleated Red Blood Cells # 0.0 Nucleated Red Blood Cells % 0.0 Platelet Count 473 #H Red Blood Count 3.14 L Red Cell Distribution Width 14.0 White Blood Count 15.8 #H Test 11/10/16 21:51 Bedside Glucose 152 Medications Medications Current Medications Naloxone HCl (Narcan) 0.4 mg Q3M PRN IV DECREASED REPIRATORY RATE; Start at 05:00 Ondansetron HCl (Zofran Inj) 4 mg Q6H PRN IV NAUSEA AND/OR VOMITING; Start 06/08 at 05:00 Acetaminophen (Tylenol Liquid) 650 mg Q6H PRN PO PAIN LEVEL 1-3 OR FEVER; Start 10/30/16 at 05:00 Acetaminophen (Tylenol Tab) 650 mg Q6H PRN PO PAIN LEVEL 1-3 OR FEVER; Start at 05:00 Morphine Sulfate (morphine) 2 mg Q4H PRN IV PAIN LEVEL 7-10 Last administered on 11/09/16 02:08; Admin Dose 2 MG; Start 10/30/16 at 05:00 Zolpidem Tartrate (Ambien) 5 mg QHS PRN PO INSOMNIA; Start 10/30/16 at 05:00 Docusate Sodium (Colace) 100 mg Q12H PRN PO CONSTIPATION; Start 10/30/16 at 05: 00 IV Flush (NS 10 ml) 10 ml PRN PRN IV IV PROTOCOL; Start 10/30/16 at 19:00 Acetaminophen (Tylenol Supp) 650 mg Q6H PRN [place] FEVER Last administered on 08:43; Admin Dose 650 MG; Start 10/31/16 at 09:00 Miscellaneous Information 1 ea NOTE XX ; Start 10/31/16 at 12:30 Glucose (Glutose) 15 gm Q15M PRN PO DECREASED GLUCOSE; Start 10/31/16 at 12:30 Glucose (Glutose) 22.5 gm Q15M PRN PO DECREASED GLUCOSE; Start 10/31/16 at 12: 30 Dextrose (D50w Syringe) 25 ml Q15M PRN IV DECREASED GLUCOSE; Start 10/31/16 at 12:30 Dextrose (D50w Syringe) 50 ml Q15M PRN IV DECREASED GLUCOSE; Start 10/31/16 at 12:30 Glucagon (Glucagen) 1 mg Q15M PRN IM DECREASED GLUCOSE; Start 10/31/16 at 12:30 Glucose (Glutose) 15 gm Q15M PRN BUCCAL DECREASED GLUCOSE; Start 10/31/16 at 12 :30 Hydralazine HCl (Apresoline) 10 mg Q4H PRN IV SBP GREATER THAN 170 Last administered on 11/10/16 22:06; Admin Dose 10 MG; Start 10/31/16 at 23:00 Collagenase (Santyl) 1 applic DAILY TOP Last administered on 11/08/16 08:02; Admin Dose 1 APPLIC; Start 11/06/16 at 17:00 Pantoprazole (Protonix Tab) 40 mg DAILY@06 PO Last administered on 11/10/16 06 :20; Admin Dose 40 MG; Start 11/08/16 at 06:00 Diagnostic Test (Pha) (Accucheck) 1 ea 02 XX Last administered on 11/09/16 02: 07; Admin Dose 1 EA; Start 11/08/16 at 02:00 Amiodarone HCl (Cordarone) 200 mg BID PO Last administered on 11/10/16 21:53; Admin Dose 200 MG; Start 11/09/16 at 21:00 Clonidine HCl (Catapres-Tts 3 Patch) 1 patch Q7D TRANSDERM Last administered on 11/09/16 13:54; Admin Dose 1 PATCH; Start 11/09/16 at 13:00 ABBY RAMOS MD Nov 10, 2016 23:15
[2016-11-11] VITALS (14 sets, daily range): BP systolic 129–174; BP diastolic 62–83; PULSE 60–68; RESP 18–20
[2016-11-11] MEDS: ACCUCHECK AT 2AM (Patients on SS coverage) XX SCH (02:00)
[2016-11-11] MEDS: PANTOPRAZOLE (EC) 40 MG TAB PO SCH (06:31)
[2016-11-11] MEDS: INSULIN ASPART [NOVOLOG] 3 ML PEN SC SCH ×4 (07:46→21:09)
[2016-11-11 08:04] LABS: ADD SCAN DIFF NO
[2016-11-11 08:09] LABS: BASOPHIL # 0.1 10^3/ul (0.0-0.1); BASOPHILS % 0.4 % (0.0-2.0); EOSINOPHILS # 0.5 10^3/ul (0.0-0.5); HEMATOCRIT 27.6 % (42.0-52.0); HEMOGLOBIN 8.9 g/dl (14.0-18.0); LYMPHOCYTES # 1.1 10^3/ul (0.8-2.9); LYMPHOCYTES % 7.1 % (15.0-51.0); MEAN CORPUSCULAR HEMOGLOBIN 28.7 pg (29.0-33.0); MEAN CORPUSCULAR HGB CONC 32.2 g/dl (32.0-37.0); MEAN PLATELET VOLUME 10.5 fl (7.4-10.4); MONOCYTE # 0.7 10^3/ul (0.3-0.9); MONOCYTES % 4.4 % (0.0-11.0); NEUTROPHIL # 13.4 10^3/ul (1.6-7.5); NEUTROPHILS % 84.5 % (39.0-77.0); PLATELET COUNT 470 10^3/UL (140-415); RED CELL DISTRIBUTION WIDTH 14.1 % (11.5-14.5); WHITE BLOOD COUNT 15.8 10^3/ul (4.8-10.8)
[2016-11-11] MEDS: AMIODARONE 200 MG TAB PO SCH ×2 (08:20→21:06)
[2016-11-11 08:25] LABS: POTASSIUM 3.7 mmol/L (3.5-5.1)
[2016-11-11] MEDS: COLLAGENASE 30 GM TUBE TOP SCH (08:26)
[2016-11-11 08:27] LABS: CREATININE 2.43 mg/dl (0.61-1.24)
[2016-11-11 08:29] LABS: CALCIUM 7.3 mg/dl (8.4-10.2)
--- NOTE | 2016-11-11 10:38 | CONS ---
Date/Time of Note Date/Time of Note DATE: 11/11/16 TIME: 10:36 Assessment/Plan Assessment/Plan Chief Complaint/Hosp Course IMPRESSION: 1. Paroxysmal atrial fibrillation-in SR on PO amio 2. Hypertension. 3. Abnormal electrocardiogram, assess for acute coronary syndrome.-mildly positive troponin 4. Right bundle branch block pattern. 5. Cerebrovascular accident, question etiology, likely related to paroxysmal atrial fibrillation.-s/p TTE with bubble study 11/04 negative for definite PFO/ ASD 6. Encephalopathy. 7. Gastrointestinal bleed with ongoing GI evaluation-no signs of active bleeding at this time. 8. Possible urinary tract infection. 9. Renal failure. 10. Hyponatremia-resolved 11. Coagulopathy, mild. 12. Anemia. 13. Leukocytosis. Recc: -Tele -Continue PO amio as tolerated in attempt to maintain SR -Start BB to improve BP control and hydralazine -continue clonidine TTS w -Continue abx's -Ongoing Heme/GI eval -Follow hgb closely Problems: Consultation Date/Type/Reason Admit Date/Time Oct 30, 2016 at 08:00 Initial Consult Date 11/03/16 Type of Consultation: Cardiology Reason for Consultation PAF Referring Provider: ABBY RAMOS MD Exam/Review of Systems Vital Signs Vitals Vital Signs Date Time Temp Pulse Resp B/P Pulse Ox O2 Delivery O2 Flow Rate FiO2 11/11/16 08:18 61 11/11/16 07:08 97.9 18 164/77 96 11/08/16 01:36 Room Air Intake and Output 11/10/16 11/10/16 11/11/16 14:59 22:59 06:59 Intake Total 150 ml 220 ml Output Total 500 ml 650 ml Balance -350 ml -430 ml Exam Review of Systems: CONSTITUTIONAL: No fevers, chills. PULMONARY: No sob CARDIOVASCULAR: No chest pain/palpitations GASTROINTESTINAL: No nausea/vomiting. GENITOURINARY: No hematuria/dysuria. MUSCULOSKELETAL: No myagias/arthalgias. PSYCHIATRIC: The patient denies depression. NEUROLOGIC: No weakness Constitutional: other (sleeping) Psych: no complaints Head: normocephalic ENMT: mucosa pink and moist Neck: jvd (9 cm water), supple Respiratory: diminished breath sounds (at bases/B) Cardiovascular: regular rate and rhythm Gastrointestinal: non-tender, soft Musculoskeletal: muscle tone (normal) Extremities: edema (none) Neurological: other (No focal deficits) Results Result Diagram: 11/11/16 0734 11/11/16 0734 Results 24 hrs Laboratory Tests Test 11/10/16 11:28 11/10/16 17:02 11/10/16 21:51 11/11/16 02:28 Bedside Glucose 143 262 H 152 115 Test 11/11/16 07:34 11/11/16 07:40 Anion Gap 14 Basophils # 0.1 Basophils % 0.4 Blood Urea Nitrogen 20 Calcium Level 7.3 L Carbon Dioxide Level 21 Chloride Level 105 Creatinine 2.43 H Eosinophils # 0.5 Eosinophils % 3.0 Glucose Level 131 Hematocrit 27.6 L Hemoglobin 8.9 L Lymphocytes # 1.1 Lymphocytes % 7.1 L Mean Corpuscular Hemoglobin 28.7 L Mean Corpuscular Hemoglobin Concent 32.2 Mean Corpuscular Volume 89.0 Mean Platelet Volume 10.5 H Monocytes # 0.7 Monocytes % 4.4 Neutrophils # 13.4 H Neutrophils % 84.5 H Nucleated Red Blood Cells # 0.0 Nucleated Red Blood Cells % 0.0 Platelet Count 470 H Potassium Level 3.7 Red Blood Count 3.10 L Red Cell Distribution Width 14.1 Sodium Level 136 White Blood Count 15.8 H Bedside Glucose 143 Medications Medications Current Medications Naloxone HCl (Narcan) 0.4 mg Q3M PRN IV DECREASED REPIRATORY RATE; Start at 05:00 Ondansetron HCl (Zofran Inj) 4 mg Q6H PRN IV NAUSEA AND/OR VOMITING; Start 06/08 at 05:00 Acetaminophen (Tylenol Liquid) 650 mg Q6H PRN PO PAIN LEVEL 1-3 OR FEVER; Start 10/30/16 at 05:00 Acetaminophen (Tylenol Tab) 650 mg Q6H PRN PO PAIN LEVEL 1-3 OR FEVER; Start at 05:00 Morphine Sulfate (morphine) 2 mg Q4H PRN IV PAIN LEVEL 7-10 Last administered on 11/09/16t 02:08; Admin Dose 2 MG; Start 10/30/16 at 05:00 Zolpidem Tartrate (Ambien) 5 mg QHS PRN PO INSOMNIA; Start 10/30/16 at 05:00 Docusate Sodium (Colace) 100 mg Q12H PRN PO CONSTIPATION; Start 10/30/16 at 05: 00 IV Flush (NS 10 ml) 10 ml PRN PRN IV IV PROTOCOL; Start 10/30/16 at 19:00 Acetaminophen (Tylenol Supp) 650 mg Q6H PRN [place] FEVER Last administered on 08:43; Admin Dose 650 MG; Start 10/31/16 at 09:00 Miscellaneous Information 1 ea NOTE XX ; Start 10/31/16 at 12:30 Glucose (Glutose) 15 gm Q15M PRN PO DECREASED GLUCOSE; Start 10/31/16 at 12:30 Glucose (Glutose) 22.5 gm Q15M PRN PO DECREASED GLUCOSE; Start 10/31/16 at 12: 30 Dextrose (D50w Syringe) 25 ml Q15M PRN IV DECREASED GLUCOSE; Start 10/31/16 at 12:30 Dextrose (D50w Syringe) 50 ml Q15M PRN IV DECREASED GLUCOSE; Start 10/31/16 at 12:30 Glucagon (Glucagen) 1 mg Q15M PRN IM DECREASED GLUCOSE; Start 10/31/16 at 12:30 Glucose (Glutose) 15 gm Q15M PRN BUCCAL DECREASED GLUCOSE; Start 10/31/16 at 12 :30 Hydralazine HCl (Apresoline) 10 mg Q4H PRN IV SBP GREATER THAN 170 Last administered on 11/10/16 22:06; Admin Dose 10 MG; Start 10/31/16 at 23:00 Collagenase (Santyl) 1 applic DAILY TOP Last administered on 11/11/16 08:26; Admin Dose 1 APPLIC; Start 11/06/16 at 17:00 Pantoprazole (Protonix Tab) 40 mg DAILY@06 PO Last administered on 11/11/16 06 :31; Admin Dose 40 MG; Start 11/08/16 at 06:00 Diagnostic Test (Pha) (Accucheck) 1 ea 02 XX Last administered on 11/09/16 02: 07; Admin Dose 1 EA; Start 11/08/16 at 02:00 Amiodarone HCl (Cordarone) 200 mg BID PO Last administered on 11/11/16 08:20; Admin Dose 200 MG; Start 11/09/16 at 21:00 Clonidine HCl (Catapres-Tts 3 Patch) 1 patch Q7D TRANSDERM Last administered on 3/20/17at 13:54; Admin Dose 1 PATCH; Start 11/09/16 at 13:00 LESLI SHEA Nov 11, 2016 10:38
[2016-11-11] MEDS: hydrALAzine 20 MG INJ IV PRN ×2 (12:38→21:11)
--- NOTE | 2016-11-11 16:04 | CONS ---
Date/Time of Note Date/Time of Note DATE: 11/11/16 TIME: 16:01 Assessment/Plan Assessment/Plan Chief Complaint/Hosp Course The patient is a 62 year old male with GIB s/p EGD and colonoscopy on 10/30/16 with likely bleeding source is between 2nd portion of duodenum and ileum ( portion of gut not reachable with standard endoscopy). The antrum appeared thickened status post random biopsy showed showed chronic gastritis and benign lymphoid aggregates but no evidence of H. pylori and no evidence of intestinal metaplasia, dysplasia or malignancy. CT enterography showed 1. Small punctate focus of gas in the region of the medial duodenal bulb is likely a small diverticulum or normal, a duodenal ulcer is a consideration believed to be less likely. # Normocytic anemia, likely related to GIB, possible anemia of chronic inflammation or chronic kidney disease. - Hemoglobin currently fairly stable, transfuse < 8. - Iron panel suggests anemia of chronic inflammation, retic count inappropriately low; pending ferritin, Vitamin B12, folate, epo level - LDH elevated, but haptoglobin not suppressed, unlikely hemolysis - agree with capsule endoscopy as outpatient # Leukocytosis, likely reactive. WBC did rise to 15. Pt has a stage II decub which may be infected. f/u blood cx x 2 # Thrombocytosis - likely reactive Will continue to follow. Problems: Consultation Date/Type/Reason Admit Date/Time Oct 30, 2016 at 08:00 Initial Consult Date 11/05/16 Type of Consultation: Hematology Referring Provider: ABBY RAMOS MD 24 HR Interval Summary Free Text/Dictation No complaints, no bleeding. Exam/Review of Systems Vital Signs Vitals Vital Signs Date Time Temp Pulse Resp B/P Pulse Ox O2 Delivery O2 Flow Rate FiO2 11/11/16 15:37 97.9 74 18 138/68 97 11/08/16 01:36 Room Air Intake and Output 11/10/16 11/10/16 11/11/16 15:00 23:00 07:00 Intake Total 150 ml 220 ml Output Total 500 ml 650 ml Balance -350 ml -430 ml Exam Constitutional: frail Head: atraumatic, normocephalic Eyes: nl conjunctiva ENMT: nl external ears & nose Neck: non-tender, supple Respiratory: clear to auscultation, normal air movement Cardiovascular: regular rate and rhythm Gastrointestinal: soft Musculoskeletal: nl extremities to inspection, nl gait and stance Extremities: normal pulses Results Result Diagram: 11/11/16 0734 11/11/16 0734 Results 24 hrs Laboratory Tests Test 11/10/16 17:02 11/10/16 21:51 11/11/16 02:28 11/11/16 07:34 Bedside Glucose 262 H 152 115 White Blood Count 15.8 H Red Blood Count 3.10 L Hemoglobin 8.9 L Hematocrit 27.6 L Mean Corpuscular Volume 89.0 Mean Corpuscular Hemoglobin 28.7 L Mean Corpuscular Hemoglobin Concent 32.2 Red Cell Distribution Width 14.1 Platelet Count 470 H Mean Platelet Volume 10.5 H Neutrophils % 84.5 H Lymphocytes % 7.1 L Monocytes % 4.4 Eosinophils % 3.0 Basophils % 0.4 Nucleated Red Blood Cells % 0.0 Neutrophils # 13.4 H Lymphocytes # 1.1 Monocytes # 0.7 Eosinophils # 0.5 Basophils # 0.1 Nucleated Red Blood Cells # 0.0 Sodium Level 136 Potassium Level 3.7 Chloride Level 105 Carbon Dioxide Level 21 Anion Gap 14 Blood Urea Nitrogen 20 Creatinine 2.43 H Glucose Level 131 Calcium Level 7.3 L Test 11/11/16 07:40 11/11/16 11:29 Bedside Glucose 143 244 H Medications Medications Current Medications Naloxone HCl (Narcan) 0.4 mg Q3M PRN IV DECREASED REPIRATORY RATE; Start at 05:00 Ondansetron HCl (Zofran Inj) 4 mg Q6H PRN IV NAUSEA AND/OR VOMITING; Start 06/08 at 05:00 Acetaminophen (Tylenol Liquid) 650 mg Q6H PRN PO PAIN LEVEL 1-3 OR FEVER; Start 10/30/16 at 05:00 Acetaminophen (Tylenol Tab) 650 mg Q6H PRN PO PAIN LEVEL 1-3 OR FEVER; Start at 05:00 Morphine Sulfate (morphine) 2 mg Q4H PRN IV PAIN LEVEL 7-10 Last administered on 11/09/16t 02:08; Admin Dose 2 MG; Start 10/30/16 at 05:00 Zolpidem Tartrate (Ambien) 5 mg QHS PRN PO INSOMNIA; Start 10/30/16 at 05:00 Docusate Sodium (Colace) 100 mg Q12H PRN PO CONSTIPATION; Start 10/30/16 at 05: 00 IV Flush (NS 10 ml) 10 ml PRN PRN IV IV PROTOCOL; Start 10/30/16 at 19:00 Acetaminophen (Tylenol Supp) 650 mg Q6H PRN [place] FEVER Last administered on 08:43; Admin Dose 650 MG; Start 10/31/16 at 09:00 Miscellaneous Information 1 ea NOTE XX ; Start 10/31/16 at 12:30 Glucose (Glutose) 15 gm Q15M PRN PO DECREASED GLUCOSE; Start 10/31/16 at 12:30 Glucose (Glutose) 22.5 gm Q15M PRN PO DECREASED GLUCOSE; Start 10/31/16 at 12: 30 Dextrose (D50w Syringe) 25 ml Q15M PRN IV DECREASED GLUCOSE; Start 10/31/16 at 12:30 Dextrose (D50w Syringe) 50 ml Q15M PRN IV DECREASED GLUCOSE; Start 10/31/16 at 12:30 Glucagon (Glucagen) 1 mg Q15M PRN IM DECREASED GLUCOSE; Start 10/31/16 at 12:30 Glucose (Glutose) 15 gm Q15M PRN BUCCAL DECREASED GLUCOSE; Start 10/31/16 at 12 :30 Hydralazine HCl (Apresoline) 10 mg Q4H PRN IV SBP GREATER THAN 170 Last administered on 11/11/16 12:38; Admin Dose 10 MG; Start 10/31/16 at 23:00 Collagenase (Santyl) 1 applic DAILY TOP Last administered on 11/11/16 08:26; Admin Dose 1 APPLIC; Start 11/06/16 at 17:00 Pantoprazole (Protonix Tab) 40 mg DAILY@06 PO Last administered on 11/11/16 06 :31; Admin Dose 40 MG; Start 11/08/16 at 06:00 Diagnostic Test (Pha) (Accucheck) 1 ea 02 XX Last administered on 11/09/16 02: 07; Admin Dose 1 EA; Start 11/08/16 at 02:00 Amiodarone HCl (Cordarone) 200 mg BID PO Last administered on 11/11/16 08:20; Admin Dose 200 MG; Start 11/09/16 at 21:00 Clonidine HCl (Catapres-Tts 3 Patch) 1 patch Q7D TRANSDERM Last administered on 11/09/16 13:54; Admin Dose 1 PATCH; Start 11/09/16 at 13:00 Hydralazine HCl (Apresoline) 25 mg Q8 PO Last administered on 11/11/16t 13:47; Admin Dose 25 MG; Start 11/11/16 at 14:00 Metoprolol Tartrate (Lopressor) 12.5 mg BID PO ; Start 11/11/16 at 21:00 ELIZABETH CHURCH MD Nov 11, 2016 16:04
--- NOTE | 2016-11-11 19:22 | CONS ---
Date/Time of Note Date/Time of Note DATE: 11/11/16 TIME: 19:21 Assessment/Plan Assessment/Plan Additional Assessment/Plan IMPRESSION: 1. Anemia. 2. Gastrointestinal bleeding which clinically seems to have stopped.ht stable 3. Thrombocytopenia, corrected. 4. Urinary tract infection. 5. Hypertension. 6. Renal failure. 7. 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 Atrial fibrillation. PLAN: Continue present care. Monitor H and H. no blood thinner Consultation Date/Type/Reason Admit Date/Time Oct 30, 2016 at 08:00 Initial Consult Date 11/05/16 Type of Consultation: Hematology Referring Provider: ABBY RAMOS MD 24 HR Interval Summary Constitutional: improved, no complaints Exam/Review of Systems Vital Signs Vitals Vital Signs Date Time Temp Pulse Resp B/P Pulse Ox O2 Delivery O2 Flow Rate FiO2 11/11/16 16:11 68 11/11/16 15:37 97.9 18 138/68 97 11/08/16 01:36 Room Air Intake and Output 11/10/16 11/10/16 11/11/16 15:00 23:00 07:00 Intake Total 150 ml 220 ml Output Total 500 ml 650 ml Balance -350 ml -430 ml Exam Constitutional: alert, oriented, well developed Psych: nl mood/affect, no complaints Head: atraumatic, normocephalic Eyes: EOMI, PERRL, nl conjunctiva, nl lids, nl sclera ENMT: nl external ears & nose, nl lips & teeth, nl nasal mucosa & septum Neck: non-tender, supple Respiratory: clear to auscultation, normal air movement Cardiovascular: nl pulses, regular rate and rhythm Gastrointestinal: nl liver, spleen, non-tender, soft Musculoskeletal: nl extremities to inspection, nl gait and stance Extremities: normal pulses Neurological: HISTOLOGICAL ILLUSTRATOR II-XII intact, nl mental status, nl speech, nl strength Skin: nl turgor, No rash or lesions Lymph: nl lymph nodes Results Result Diagram: 11/11/16 0734 11/11/16 0734 Results 24 hrs Laboratory Tests Test 11/10/16 21:51 11/11/16 02:28 11/11/16 07:34 11/11/16 07:40 Bedside Glucose 152 115 143 White Blood Count 15.8 H Red Blood Count 3.10 L Hemoglobin 8.9 L Hematocrit 27.6 L Mean Corpuscular Volume 89.0 Mean Corpuscular Hemoglobin 28.7 L Mean Corpuscular Hemoglobin Concent 32.2 Red Cell Distribution Width 14.1 Platelet Count 470 H Mean Platelet Volume 10.5 H Neutrophils % 84.5 H Lymphocytes % 7.1 L Monocytes % 4.4 Eosinophils % 3.0 Basophils % 0.4 Nucleated Red Blood Cells % 0.0 Neutrophils # 13.4 H Lymphocytes # 1.1 Monocytes # 0.7 Eosinophils # 0.5 Basophils # 0.1 Nucleated Red Blood Cells # 0.0 Sodium Level 136 Potassium Level 3.7 Chloride Level 105 Carbon Dioxide Level 21 Anion Gap 14 Blood Urea Nitrogen 20 Creatinine 2.43 H Glucose Level 131 Calcium Level 7.3 L Test 11/11/16 11:29 11/11/16 17:06 Bedside Glucose 244 H 292 H Medications Medications Current Medications Naloxone HCl (Narcan) 0.4 mg Q3M PRN IV DECREASED REPIRATORY RATE; Start at 05:00 Ondansetron HCl (Zofran Inj) 4 mg Q6H PRN IV NAUSEA AND/OR VOMITING; Start 06/08 at 05:00 Acetaminophen (Tylenol Liquid) 650 mg Q6H PRN PO PAIN LEVEL 1-3 OR FEVER; Start 10/30/16 at 05:00 Acetaminophen (Tylenol Tab) 650 mg Q6H PRN PO PAIN LEVEL 1-3 OR FEVER; Start at 05:00 Morphine Sulfate (morphine) 2 mg Q4H PRN IV PAIN LEVEL 7-10 Last administered on 11/09/16 02:08; Admin Dose 2 MG; Start 10/30/16 at 05:00 Zolpidem Tartrate (Ambien) 5 mg QHS PRN PO INSOMNIA; Start 10/30/16 at 05:00 Docusate Sodium (Colace) 100 mg Q12H PRN PO CONSTIPATION; Start 10/30/16 at 05: 00 IV Flush (NS 10 ml) 10 ml PRN PRN IV IV PROTOCOL; Start 10/30/16 at 19:00 Acetaminophen (Tylenol Supp) 650 mg Q6H PRN [place] FEVER Last administered on 08:43; Admin Dose 650 MG; Start 10/31/16 at 09:00 Miscellaneous Information 1 ea NOTE XX ; Start 10/31/16 at 12:30 Glucose (Glutose) 15 gm Q15M PRN PO DECREASED GLUCOSE; Start 10/31/16 at 12:30 Glucose (Glutose) 22.5 gm Q15M PRN PO DECREASED GLUCOSE; Start 10/31/16 at 12: 30 Dextrose (D50w Syringe) 25 ml Q15M PRN IV DECREASED GLUCOSE; Start 10/31/16 at 12:30 Dextrose (D50w Syringe) 50 ml Q15M PRN IV DECREASED GLUCOSE; Start 10/31/16 at 12:30 Glucagon (Glucagen) 1 mg Q15M PRN IM DECREASED GLUCOSE; Start 10/31/16 at 12:30 Glucose (Glutose) 15 gm Q15M PRN BUCCAL DECREASED GLUCOSE; Start 10/31/16 at 12 :30 Hydralazine HCl (Apresoline) 10 mg Q4H PRN IV SBP GREATER THAN 170 Last administered on 11/11/16 12:38; Admin Dose 10 MG; Start 10/31/16 at 23:00 Collagenase (Santyl) 1 applic DAILY TOP Last administered on 11/11/16 08:26; Admin Dose 1 APPLIC; Start 11/06/16 at 17:00 Pantoprazole (Protonix Tab) 40 mg DAILY@06 PO Last administered on 11/11/16 06 :31; Admin Dose 40 MG; Start 11/08/16 at 06:00 Diagnostic Test (Pha) (Accucheck) 1 ea 02 XX Last administered on 11/09/16 02: 07; Admin Dose 1 EA; Start 11/08/16 at 02:00 Amiodarone HCl (Cordarone) 200 mg BID PO Last administered on 11/11/16 08:20; Admin Dose 200 MG; Start 11/09/16 at 21:00 Clonidine HCl (Catapres-Tts 3 Patch) 1 patch Q7D TRANSDERM Last administered on 11/09/16 13:54; Admin Dose 1 PATCH; Start 11/09/16 at 13:00 Hydralazine HCl (Apresoline) 25 mg Q8 PO Last administered on 11/11/16 13:47; Admin Dose 25 MG; Start 11/11/16 at 14:00 Metoprolol Tartrate (Lopressor) 12.5 mg BID PO ; Start 11/11/16 at 21:00 JEFRY CERNA MD Nov 11, 2016 19:22
[2016-11-11] MEDS: METOPROLOL 25 MG TAB PO SCH (21:07)
--- NOTE | 2016-11-11 23:21 | PN ---
Date/Time of Note Date/Time of Note DATE: 11/11/16 TIME: 23:20 Assessment/Plan VTE Prophylaxis VTE Prophylaxis Intervention: other Lines/Catheters IV Catheter Type (from Nrs): Saline Lock Urinary Cath still in place: Yes Reason Cath still needed: other (indicate) Assessment/Plan Chief Complaint/Hosp Course IMPRESSION: 1. Patient has massive gastrointestinal bleed.better 2. leucocytosis 3. Metabolic acidosis and acute kidney injury.better 4. cva 5. Hypoalbuminemia. 6 thrombocytopenia better 7 uti 8 p afib plan snf ck labs per id Problems: Subjective 24 Hr Interval Summary Respiratory: no complaints Cardiovascular: no complaints Exam/Review of Systems Vital Signs Vitals Vital Signs Date Time Temp Pulse Resp B/P Pulse Ox O2 Delivery O2 Flow Rate FiO2 11/11/16 20:13 98.4 67 20 139/65 96 11/08/16 01:36 Room Air Intake and Output 11/10/16 11/10/16 11/11/16 15:00 23:00 07:00 Intake Total 150 ml 220 ml Output Total 500 ml 650 ml Balance -350 ml -430 ml Exam Neck: supple Respiratory: clear to auscultation Cardiovascular: regular rate and rhythm Gastrointestinal: bowel sounds (+), soft Results Result Diagram: 11/11/16 0734 11/11/16 0734 Results 24 hrs Laboratory Tests Test 11/11/16 02:28 11/11/16 07:34 11/11/16 07:40 11/11/16 11:29 Bedside Glucose 115 143 244 H White Blood Count 15.8 H Red Blood Count 3.10 L Hemoglobin 8.9 L Hematocrit 27.6 L Mean Corpuscular Volume 89.0 Mean Corpuscular Hemoglobin 28.7 L Mean Corpuscular Hemoglobin Concent 32.2 Red Cell Distribution Width 14.1 Platelet Count 470 H Mean Platelet Volume 10.5 H Neutrophils % 84.5 H Lymphocytes % 7.1 L Monocytes % 4.4 Eosinophils % 3.0 Basophils % 0.4 Nucleated Red Blood Cells % 0.0 Neutrophils # 13.4 H Lymphocytes # 1.1 Monocytes # 0.7 Eosinophils # 0.5 Basophils # 0.1 Nucleated Red Blood Cells # 0.0 Sodium Level 136 Potassium Level 3.7 Chloride Level 105 Carbon Dioxide Level 21 Anion Gap 14 Blood Urea Nitrogen 20 Creatinine 2.43 H Glucose Level 131 Calcium Level 7.3 L Test 11/11/16:06 11/11/16 20:47 Bedside Glucose 292 H 172 Medications Medications Current Medications Naloxone HCl (Narcan) 0.4 mg Q3M PRN IV DECREASED REPIRATORY RATE; Start at 05:00 Ondansetron HCl (Zofran Inj) 4 mg Q6H PRN IV NAUSEA AND/OR VOMITING; Start 06/08 at 05:00 Acetaminophen (Tylenol Liquid) 650 mg Q6H PRN PO PAIN LEVEL 1-3 OR FEVER; Start 10/30/16 at 05:00 Acetaminophen (Tylenol Tab) 650 mg Q6H PRN PO PAIN LEVEL 1-3 OR FEVER; Start at 05:00 Morphine Sulfate (morphine) 2 mg Q4H PRN IV PAIN LEVEL 7-10 Last administered on 11/09/16 02:08; Admin Dose 2 MG; Start 10/30/16 at 05:00 Zolpidem Tartrate (Ambien) 5 mg QHS PRN PO INSOMNIA; Start 10/30/16 at 05:00 Docusate Sodium (Colace) 100 mg Q12H PRN PO CONSTIPATION; Start 10/30/16 at 05: 00 IV Flush (NS 10 ml) 10 ml PRN PRN IV IV PROTOCOL; Start 10/30/16 at 19:00 Acetaminophen (Tylenol Supp) 650 mg Q6H PRN [place] FEVER Last administered on 08:43; Admin Dose 650 MG; Start 10/31/16 at 09:00 Miscellaneous Information 1 ea NOTE XX ; Start 10/31/16 at 12:30 Glucose (Glutose) 15 gm Q15M PRN PO DECREASED GLUCOSE; Start 10/31/16 at 12:30 Glucose (Glutose) 22.5 gm Q15M PRN PO DECREASED GLUCOSE; Start 10/31/16 at 12: 30 Dextrose (D50w Syringe) 25 ml Q15M PRN IV DECREASED GLUCOSE; Start 10/31/16 at 12:30 Dextrose (D50w Syringe) 50 ml Q15M PRN IV DECREASED GLUCOSE; Start 10/31/16 at 12:30 Glucagon (Glucagen) 1 mg Q15M PRN IM DECREASED GLUCOSE; Start 10/31/16 at 12:30 Glucose (Glutose) 15 gm Q15M PRN BUCCAL DECREASED GLUCOSE; Start 10/31/16 at 12 :30 Hydralazine HCl (Apresoline) 10 mg Q4H PRN IV SBP GREATER THAN 170 Last administered on 11/11/16 21:11; Admin Dose 10 MG; Start 10/31/16 at 23:00 Collagenase (Santyl) 1 applic DAILY TOP Last administered on 11/11/16 08:26; Admin Dose 1 APPLIC; Start 11/06/16 at 17:00 Pantoprazole (Protonix Tab) 40 mg DAILY@06 PO Last administered on 11/11/16 06 :31; Admin Dose 40 MG; Start 11/08/16 at 06:00 Diagnostic Test (Pha) (Accucheck) 1 ea 02 XX Last administered on 11/09/16 02: 07; Admin Dose 1 EA; Start 11/08/16 at 02:00 Amiodarone HCl (Cordarone) 200 mg BID PO Last administered on 11/11/16 21:06; Admin Dose 200 MG; Start 11/09/16 at 21:00 Clonidine HCl (Catapres-Tts 3 Patch) 1 patch Q7D TRANSDERM Last administered on 11/09/16 13:54; Admin Dose 1 PATCH; Start 11/09/16 at 13:00 Hydralazine HCl (Apresoline) 25 mg Q8 PO Last administered on 11/11/16 22:00; Admin Dose 25 MG; Start 11/11/16 at 14:00 Metoprolol Tartrate (Lopressor) 12.5 mg BID PO Last administered on 11/11/16 21:07; Admin Dose 12.5 MG; Start 11/11/16 at 21:00 ABBY RAMOS MD Nov 11, 2016 23:21
[2016-11-12] VITALS (13 sets, daily range): BP systolic 125–148; BP diastolic 55–66; PULSE 51–60; RESP 16–20
[2016-11-12] MEDS: ACCUCHECK AT 2AM (Patients on SS coverage) XX SCH (02:00)
[2016-11-12] MEDS: PANTOPRAZOLE (EC) 40 MG TAB PO SCH (06:28)
[2016-11-12] MEDS: INSULIN ASPART [NOVOLOG] 3 ML PEN SC SCH ×4 (07:24→21:54)
[2016-11-12] MEDS: AMIODARONE 200 MG TAB PO SCH ×2 (08:27→21:50)
[2016-11-12] MEDS: METOPROLOL 25 MG TAB PO SCH ×2 (08:27→21:56)
[2016-11-12] MEDS: COLLAGENASE 30 GM TUBE TOP SCH (08:28)
--- NOTE | 2016-11-12 10:49 | CONS ---
Date/Time of Note Date/Time of Note DATE: 11/12/16 TIME: 10:46 Assessment/Plan Assessment/Plan Additional Assessment/Plan Assessment recommendations; 1. Patient admitted for anemia without any reading site been discovered. Status post negative EGD and colonoscopy. However patient has maintained stable hematocrit. 2. Status post respiratory failure. 3. Renal insufficiency. 4. Toxic encephalopathy with interval improvement as well. Continue current treatment. We will sign off. Thanks for the referral. Please reconsult if needed. Consultation Date/Type/Reason Admit Date/Time Oct 30, 2016 at 08:00 Initial Consult Date 10/30/16 Type of Consultation: Pulmonary Referring Provider: ABBY RAMOS MD 24 HR Interval Summary Free Text/Dictation Patient condition is stable. There is continually marked improvement in mental status. Patient denies any shortness of breath. Has remained hemodynamically stable. General exam; elderly male, currently in no distress. Awake and alert. Exam/Review of Systems Vital Signs Vitals Vital Signs Date Time Temp Pulse Resp B/P Pulse Ox O2 Delivery O2 Flow Rate FiO2 11/12/16 08:01 98.0 59 19 129/57 97 Intake and Output 11/11/16 11/11/16 11/12/16 15:00 23:00 07:00 Intake Total 300 ml 300 ml Output Total 350 ml 300 ml Balance -50 ml 0 ml Exam HEENT exam is; supple neck, no JVD. No lymphadenopathy. Midline trachea. No thyromegaly. Pharynx is clear. Chest examination; clear to auscultation bilaterally. S1-S2 audible, no murmurs. Regular rhythm. Abdomen exam is; soft, nontender. No organomegaly. Bowel sounds audible. Extremity examination; no peripheral edema. CREATIVE SERVICES COORDINATOR examination; no focal deficit. Results Result Diagram: 11/11/16 0734 11/11/16 0734 Results 24 hrs Laboratory Tests Test 11/11/16 11:29 11/11/16 17:06 11/11/16 20:47 11/12/16 02:37 Bedside Glucose 244 H 292 H 172 153 Test 11/12/16 07:16 Bedside Glucose 168 Medications Medications Current Medications Naloxone HCl (Narcan) 0.4 mg Q3M PRN IV DECREASED REPIRATORY RATE; Start at 05:00 Ondansetron HCl (Zofran Inj) 4 mg Q6H PRN IV NAUSEA AND/OR VOMITING; Start 06/08 at 05:00 Acetaminophen (Tylenol Liquid) 650 mg Q6H PRN PO PAIN LEVEL 1-3 OR FEVER; Start 10/30/16 at 05:00 Acetaminophen (Tylenol Tab) 650 mg Q6H PRN PO PAIN LEVEL 1-3 OR FEVER; Start at 05:00 Morphine Sulfate (morphine) 2 mg Q4H PRN IV PAIN LEVEL 7-10 Last administered on 11/09/16 02:08; Admin Dose 2 MG; Start 10/30/16 at 05:00 Zolpidem Tartrate (Ambien) 5 mg QHS PRN PO INSOMNIA; Start 10/30/16 at 05:00 Docusate Sodium (Colace) 100 mg Q12H PRN PO CONSTIPATION; Start 10/30/16 at 05: 00 IV Flush (NS 10 ml) 10 ml PRN PRN IV IV PROTOCOL; Start 10/30/16 at 19:00 Acetaminophen (Tylenol Supp) 650 mg Q6H PRN [place] FEVER Last administered on 08:43; Admin Dose 650 MG; Start 10/31/16 at 09:00 Miscellaneous Information 1 ea NOTE XX ; Start 10/31/16 at 12:30 Glucose (Glutose) 15 gm Q15M PRN PO DECREASED GLUCOSE; Start 10/31/16 at 12:30 Glucose (Glutose) 22.5 gm Q15M PRN PO DECREASED GLUCOSE; Start 10/31/16 at 12: 30 Dextrose (D50w Syringe) 25 ml Q15M PRN IV DECREASED GLUCOSE; Start 10/31/16 at 12:30 Dextrose (D50w Syringe) 50 ml Q15M PRN IV DECREASED GLUCOSE; Start 10/31/16 at 12:30 Glucagon (Glucagen) 1 mg Q15M PRN IM DECREASED GLUCOSE; Start 10/31/16 at 12:30 Glucose (Glutose) 15 gm Q15M PRN BUCCAL DECREASED GLUCOSE; Start 10/31/16 at 12 :30 Hydralazine HCl (Apresoline) 10 mg Q4H PRN IV SBP GREATER THAN 170 Last administered on 11/11/16 21:11; Admin Dose 10 MG; Start 10/31/16 at 23:00 Collagenase (Santyl) 1 applic DAILY TOP Last administered on 11/12/16 08:28; Admin Dose 1 APPLIC; Start 11/06/16 at 17:00 Pantoprazole (Protonix Tab) 40 mg DAILY@06 PO Last administered on 11/12/16 06 :28; Admin Dose 40 MG; Start 11/08/16 at 06:00 Diagnostic Test (Pha) (Accucheck) 1 ea 02 XX Last administered on 11/09/16 02: 07; Admin Dose 1 EA; Start 11/08/16 at 02:00 Amiodarone HCl (Cordarone) 200 mg BID PO Last administered on 11/12/16 08:27; Admin Dose 200 MG; Start 11/09/16 at 21:00 Clonidine HCl (Catapres-Tts 3 Patch) 1 patch Q7D TRANSDERM Last administered on 11/09/16 13:54; Admin Dose 1 PATCH; Start 11/09/16 at 13:00 Hydralazine HCl (Apresoline) 25 mg Q8 PO Last administered on 11/12/16 06:29; Admin Dose 25 MG; Start 11/11/16 at 14:00 Metoprolol Tartrate (Lopressor) 12.5 mg BID PO Last administered on 11/12/16 08:27; Admin Dose 12.5 MG; Start 11/11/16 at 21:00 SUJIT MAXWELL Nov 12, 2016 10:49
--- NOTE | 2016-11-12 12:50 | CONS ---
Date/Time of Note Date/Time of Note DATE: 11/12/16 TIME: 12:47 Assessment/Plan Assessment/Plan Chief Complaint/Hosp Course IMPRESSION: 1. Paroxysmal atrial fibrillation-in SR/SB on PO amio 2. Hypertension. 3. Abnormal electrocardiogram, assess for acute coronary syndrome.-mildly positive troponin 4. Right bundle branch block pattern. 5. Cerebrovascular accident, question etiology, likely related to paroxysmal atrial fibrillation.-s/p TTE with bubble study 11/04 negative for definite PFO/ ASD 6. Encephalopathy. 7. Gastrointestinal bleed with ongoing GI evaluation-no signs of active bleeding at this time. 8. Possible urinary tract infection. 9. Renal failure. 10. Hyponatremia-resolved 11. Coagulopathy, mild. 12. Anemia. 13. Leukocytosis. Recc: -Tele -Continue PO amio as tolerated in attempt to maintain SR -Continue low dose BB as tolerated -Continue hydralazine with currently reasonable BP control -continue clonidine TTS w -Continue abx's -Ongoing Heme/GI eval -Follow hgb closely Problems: Consultation Date/Type/Reason Admit Date/Time Oct 30, 2016 at 08:00 Initial Consult Date 11/03/16 Type of Consultation: Cardiology Reason for Consultation PAF Referring Provider: ABBY RAMOS MD Exam/Review of Systems Vital Signs Vitals Vital Signs Date Time Temp Pulse Resp B/P Pulse Ox O2 Delivery O2 Flow Rate FiO2 11/12/16 12:21 97.8 54 20 146/66 97 Intake and Output 11/11/16 11/11/16 11/12/16 15:00 23:00 07:00 Intake Total 300 ml 300 ml Output Total 350 ml 300 ml Balance -50 ml 0 ml Exam Review of Systems: CONSTITUTIONAL: No fevers, chills. PULMONARY: No sob CARDIOVASCULAR: No chest pain/palpitations GASTROINTESTINAL: Dysphagia GENITOURINARY: No hematuria/dysuria. MUSCULOSKELETAL: No myagias/arthalgias. PSYCHIATRIC: The patient denies depression. NEUROLOGIC: lethargic Constitutional: alert Psych: no complaints Head: normocephalic ENMT: mucosa pink and moist Neck: jvd (8-9 cm water), supple Respiratory: diminished breath sounds (at bases/B) Cardiovascular: other (bradycardic regular rhythm) Gastrointestinal: non-tender, soft Musculoskeletal: muscle tone (normal) Extremities: edema (none) Neurological: lethargic, other (No focal deficits) Results Result Diagram: 11/11/16 0734 11/11/16 0734 Results 24 hrs Laboratory Tests Test 11/11/16 17:06 11/11/16 20:47 11/12/16 02:37 11/12/16 07:16 Bedside Glucose 292 H 172 153 168 Test 11/12/16 11:16 Bedside Glucose 329 H Medications Medications Current Medications Naloxone HCl (Narcan) 0.4 mg Q3M PRN IV DECREASED REPIRATORY RATE; Start at 05:00 Ondansetron HCl (Zofran Inj) 4 mg Q6H PRN IV NAUSEA AND/OR VOMITING; Start 06/08 at 05:00 Acetaminophen (Tylenol Liquid) 650 mg Q6H PRN PO PAIN LEVEL 1-3 OR FEVER; Start 10/30/16 at 05:00 Acetaminophen (Tylenol Tab) 650 mg Q6H PRN PO PAIN LEVEL 1-3 OR FEVER; Start at 05:00 Morphine Sulfate (morphine) 2 mg Q4H PRN IV PAIN LEVEL 7-10 Last administered on 11/09/16 02:08; Admin Dose 2 MG; Start 10/30/16 at 05:00 Zolpidem Tartrate (Ambien) 5 mg QHS PRN PO INSOMNIA; Start 10/30/16 at 05:00 Docusate Sodium (Colace) 100 mg Q12H PRN PO CONSTIPATION; Start 10/30/16 at 05: 00 IV Flush (NS 10 ml) 10 ml PRN PRN IV IV PROTOCOL; Start 10/30/16 at 19:00 Acetaminophen (Tylenol Supp) 650 mg Q6H PRN [place] FEVER Last administered on 08:43; Admin Dose 650 MG; Start 10/31/16 at 09:00 Miscellaneous Information 1 ea NOTE XX ; Start 10/31/16 at 12:30 Glucose (Glutose) 15 gm Q15M PRN PO DECREASED GLUCOSE; Start 10/31/16 at 12:30 Glucose (Glutose) 22.5 gm Q15M PRN PO DECREASED GLUCOSE; Start 10/31/16 at 12: 30 Dextrose (D50w Syringe) 25 ml Q15M PRN IV DECREASED GLUCOSE; Start 10/31/16 at 12:30 Dextrose (D50w Syringe) 50 ml Q15M PRN IV DECREASED GLUCOSE; Start 10/31/16 at 12:30 Glucagon (Glucagen) 1 mg Q15M PRN IM DECREASED GLUCOSE; Start 10/31/16 at 12:30 Glucose (Glutose) 15 gm Q15M PRN BUCCAL DECREASED GLUCOSE; Start 10/31/16 at 12 :30 Hydralazine HCl (Apresoline) 10 mg Q4H PRN IV SBP GREATER THAN 170 Last administered on 11/11/16 21:11; Admin Dose 10 MG; Start 10/31/16 at 23:00 Collagenase (Santyl) 1 applic DAILY TOP Last administered on 11/12/16 08:28; Admin Dose 1 APPLIC; Start 11/06/16 at 17:00 Pantoprazole (Protonix Tab) 40 mg DAILY@06 PO Last administered on 11/12/16 06 :28; Admin Dose 40 MG; Start 11/08/16 at 06:00 Diagnostic Test (Pha) (Accucheck) 1 ea 02 XX Last administered on 11/09/16 02: 07; Admin Dose 1 EA; Start 11/08/16 at 02:00 Amiodarone HCl (Cordarone) 200 mg BID PO Last administered on 11/12/16 08:27; Admin Dose 200 MG; Start 11/09/16 at 21:00 Clonidine HCl (Catapres-Tts 3 Patch) 1 patch Q7D TRANSDERM Last administered on 11/09/16 13:54; Admin Dose 1 PATCH; Start 11/09/16 at 13:00 Hydralazine HCl (Apresoline) 25 mg Q8 PO Last administered on 11/12/16 06:29; Admin Dose 25 MG; Start 11/11/16 at 14:00 Metoprolol Tartrate (Lopressor) 12.5 mg BID PO Last administered on 11/12/16 08:27; Admin Dose 12.5 MG; Start 11/11/16 at 21:00 LESLI SHEA Nov 12, 2016 12:50
--- NOTE | 2016-11-12 15:40 | CONS ---
Date/Time of Note Date/Time of Note DATE: 11/12/16 TIME: 15:40 Assessment/Plan Assessment/Plan Chief Complaint/Hosp Course The patient is a 62 year old male with GIB s/p EGD and colonoscopy on 10/30/16 with likely bleeding source is between 2nd portion of duodenum and ileum ( portion of gut not reachable with standard endoscopy). The antrum appeared thickened status post random biopsy showed showed chronic gastritis and benign lymphoid aggregates but no evidence of H. pylori and no evidence of intestinal metaplasia, dysplasia or malignancy. CT enterography showed 1. Small punctate focus of gas in the region of the medial duodenal bulb is likely a small diverticulum or normal, a duodenal ulcer is a consideration believed to be less likely. # Normocytic anemia, likely related to GIB, possible anemia of chronic inflammation or chronic kidney disease. - Hemoglobin has been fairly stable, no labs today. Will order CBC tomorrow a.m. Transfuse < 8. - Iron panel suggests anemia of chronic inflammation, retic count inappropriately low; pending ferritin, Vitamin B12, folate, epo level - LDH elevated, but haptoglobin not suppressed, unlikely hemolysis - agree with capsule endoscopy as outpatient # Leukocytosis, likely reactive. WBC did rise to 15. Pt has a stage II decub which may be infected. f/u blood cx x 2 # Thrombocytosis - likely reactive Will continue to follow. Problems: Consultation Date/Type/Reason Admit Date/Time Oct 30, 2016 at 08:00 Initial Consult Date 11/05/16 Type of Consultation: Hematology Referring Provider: ABBY RAMOS MD 24 HR Interval Summary Free Text/Dictation Doing well, resting. No melena/hematochezia, no bleeding. Exam/Review of Systems Vital Signs Vitals Vital Signs Date Time Temp Pulse Resp B/P Pulse Ox O2 Delivery O2 Flow Rate FiO2 11/12/16 12:21 97.8 54 20 146/66 97 Intake and Output 11/11/16 11/11/16 11/12/16 15:00 23:00 07:00 Intake Total 300 ml 300 ml Output Total 350 ml 300 ml Balance -50 ml 0 ml Exam Constitutional: frail Head: atraumatic, normocephalic Eyes: nl conjunctiva ENMT: nl external ears & nose Neck: non-tender, supple Respiratory: clear to auscultation, normal air movement Cardiovascular: regular rate and rhythm Gastrointestinal: soft Musculoskeletal: nl extremities to inspection, nl gait and stance Extremities: normal pulses Results Result Diagram: 11/11/16 0734 11/11/16 0734 Results 24 hrs Laboratory Tests Test 11/11/16 17:06 11/11/16 20:47 11/12/16 02:37 11/12/16 07:16 Bedside Glucose 292 H 172 153 168 Test 11/12/16 11:16 Bedside Glucose 329 H Medications Medications Current Medications Naloxone HCl (Narcan) 0.4 mg Q3M PRN IV DECREASED REPIRATORY RATE; Start at 05:00 Ondansetron HCl (Zofran Inj) 4 mg Q6H PRN IV NAUSEA AND/OR VOMITING; Start 06/08 at 05:00 Acetaminophen (Tylenol Liquid) 650 mg Q6H PRN PO PAIN LEVEL 1-3 OR FEVER; Start 10/30/16 at 05:00 Acetaminophen (Tylenol Tab) 650 mg Q6H PRN PO PAIN LEVEL 1-3 OR FEVER; Start at 05:00 Morphine Sulfate (morphine) 2 mg Q4H PRN IV PAIN LEVEL 7-10 Last administered on 11/09/16 02:08; Admin Dose 2 MG; Start 10/30/16 at 05:00 Zolpidem Tartrate (Ambien) 5 mg QHS PRN PO INSOMNIA; Start 10/30/16 at 05:00 Docusate Sodium (Colace) 100 mg Q12H PRN PO CONSTIPATION; Start 10/30/16 at 05: 00 IV Flush (NS 10 ml) 10 ml PRN PRN IV IV PROTOCOL; Start 10/30/16 at 19:00 Acetaminophen (Tylenol Supp) 650 mg Q6H PRN [place] FEVER Last administered on t 08:43; Admin Dose 650 MG; Start 10/31/16 at 09:00 Miscellaneous Information 1 ea NOTE XX ; Start 10/31/16 at 12:30 Glucose (Glutose) 15 gm Q15M PRN PO DECREASED GLUCOSE; Start 10/31/16 at 12:30 Glucose (Glutose) 22.5 gm Q15M PRN PO DECREASED GLUCOSE; Start 10/31/16 at 12: 30 Dextrose (D50w Syringe) 25 ml Q15M PRN IV DECREASED GLUCOSE; Start 10/31/16 at 12:30 Dextrose (D50w Syringe) 50 ml Q15M PRN IV DECREASED GLUCOSE; Start 10/31/16 at 12:30 Glucagon (Glucagen) 1 mg Q15M PRN IM DECREASED GLUCOSE; Start 10/31/16 at 12:30 Glucose (Glutose) 15 gm Q15M PRN BUCCAL DECREASED GLUCOSE; Start 10/31/16 at 12 :30 Hydralazine HCl (Apresoline) 10 mg Q4H PRN IV SBP GREATER THAN 170 Last administered on 11/11/16 21:11; Admin Dose 10 MG; Start 10/31/16 at 23:00 Collagenase (Santyl) 1 applic DAILY TOP Last administered on 11/12/16 08:28; Admin Dose 1 APPLIC; Start 11/06/16 at 17:00 Pantoprazole (Protonix Tab) 40 mg DAILY@06 PO Last administered on 11/12/16 06 :28; Admin Dose 40 MG; Start 11/08/16 at 06:00 Diagnostic Test (Pha) (Accucheck) 1 ea 02 XX Last administered on 11/09/16 02: 07; Admin Dose 1 EA; Start 11/08/16 at 02:00 Amiodarone HCl (Cordarone) 200 mg BID PO Last administered on 11/12/16 08:27; Admin Dose 200 MG; Start 11/09/16 at 21:00 Clonidine HCl (Catapres-Tts 3 Patch) 1 patch Q7D TRANSDERM Last administered on 11/09/16 13:54; Admin Dose 1 PATCH; Start 11/09/16 at 13:00 Hydralazine HCl (Apresoline) 25 mg Q8 PO Last administered on 11/12/16 13:56; Admin Dose 25 MG; Start 11/11/16 at 14:00 Metoprolol Tartrate (Lopressor) 12.5 mg BID PO Last administered on 11/12/16 08:27; Admin Dose 12.5 MG; Start 11/11/16 at 21:00 ELIZABETH CHURCH MD Nov 12, 2016 15:40
--- NOTE | 2016-11-12 22:46 | PN ---
Date/Time of Note Date/Time of Note DATE: 11/12/16 TIME: 22:44 Assessment/Plan VTE Prophylaxis VTE Prophylaxis Intervention: other Lines/Catheters IV Catheter Type (from Nrsg): Saline Lock Urinary Cath still in place: Yes Reason Cath still needed: other (indicate) Assessment/Plan Chief Complaint/Hosp Course IMPRESSION: 1. Patient has massive gastrointestinal bleed.better 2. leucocytosis 3. Metabolic acidosis and acute kidney injury.better 4. cva 5. Hypoalbuminemia. 6 thrombocytopenia better 7 uti 8 p afib plan snf ck labs per id video swallow rest Problems: Subjective 24 Hr Interval Summary Gastrointestinal: no complaints, No diarrhea Exam/Review of Systems Vital Signs Vitals Vital Signs Date Time Temp Pulse Resp B/P Pulse Ox O2 Delivery O2 Flow Rate FiO2 11/12/16 20:21 53 11/12/16 19:23 98.4 16 138/57 98 Intake and Output 11/11/16 11/11/16 11/12/16 15:00 23:00 07:00 Intake Total 300 ml 300 ml Output Total 350 ml 300 ml Balance -50 ml 0 ml Exam Respiratory: clear to auscultation Cardiovascular: regular rate and rhythm Gastrointestinal: soft Musculoskeletal: nl extremities to inspection Results Result Diagram: 11/11/16 0734 11/11/16 0734 Results 24 hrs Laboratory Tests Test 11/12/16 02:37 11/12/16 07:16 11/12/16 11:16 11/12/16 17:11 Bedside Glucose 153 168 329 H 190 Test 11/12/16 21:45 Bedside Glucose 192 Medications Medications Current Medications Naloxone HCl (Narcan) 0.4 mg Q3M PRN IV DECREASED REPIRATORY RATE; Start at 05:00 Ondansetron HCl (Zofran Inj) 4 mg Q6H PRN IV NAUSEA AND/OR VOMITING; Start 06/08 at 05:00 Acetaminophen (Tylenol Liquid) 650 mg Q6H PRN PO PAIN LEVEL 1-3 OR FEVER; Start 10/30/16 at 05:00 Acetaminophen (Tylenol Tab) 650 mg Q6H PRN PO PAIN LEVEL 1-3 OR FEVER; Start at 05:00 Morphine Sulfate (morphine) 2 mg Q4H PRN IV PAIN LEVEL 7-10 Last administered on 11/09/16t 02:08; Admin Dose 2 MG; Start 10/30/16 at 05:00 Zolpidem Tartrate (Ambien) 5 mg QHS PRN PO INSOMNIA; Start 10/30/16 at 05:00 Docusate Sodium (Colace) 100 mg Q12H PRN PO CONSTIPATION; Start 10/30/16 at 05: 00 IV Flush (NS 10 ml) 10 ml PRN PRN IV IV PROTOCOL; Start 10/30/16 at 19:00 Acetaminophen (Tylenol Supp) 650 mg Q6H PRN [place] FEVER Last administered on 08:43; Admin Dose 650 MG; Start 10/31/16 at 09:00 Miscellaneous Information 1 ea NOTE XX ; Start 10/31/16 at 12:30 Glucose (Glutose) 15 gm Q15M PRN PO DECREASED GLUCOSE; Start 10/31/16 at 12:30 Glucose (Glutose) 22.5 gm Q15M PRN PO DECREASED GLUCOSE; Start 10/31/16 at 12: 30 Dextrose (D50w Syringe) 25 ml Q15M PRN IV DECREASED GLUCOSE; Start 10/31/16 at 12:30 Dextrose (D50w Syringe) 50 ml Q15M PRN IV DECREASED GLUCOSE; Start 10/31/16 at 12:30 Glucagon (Glucagen) 1 mg Q15M PRN IM DECREASED GLUCOSE; Start 10/31/16 at 12:30 Glucose (Glutose) 15 gm Q15M PRN BUCCAL DECREASED GLUCOSE; Start 10/31/16 at 12 :30 Hydralazine HCl (Apresoline) 10 mg Q4H PRN IV SBP GREATER THAN 170 Last administered on 11/11/16 21:11; Admin Dose 10 MG; Start 10/31/16 at 23:00 Collagenase (Santyl) 1 applic DAILY TOP Last administered on 11/12/16 08:28; Admin Dose 1 APPLIC; Start 11/06/16 at 17:00 Pantoprazole (Protonix Tab) 40 mg DAILY@06 PO Last administered on 11/12/16 06 :28; Admin Dose 40 MG; Start 11/08/16 at 06:00 Diagnostic Test (Pha) (Accucheck) 1 ea 02 XX Last administered on 11/09/16 02: 07; Admin Dose 1 EA; Start 11/08/16 at 02:00 Amiodarone HCl (Cordarone) 200 mg BID PO Last administered on 11/12/16 21:50; Admin Dose 200 MG; Start 11/09/16 at 21:00 Clonidine HCl (Catapres-Tts 3 Patch) 1 patch Q7D TRANSDERM Last administered on 11/09/16 13:54; Admin Dose 1 PATCH; Start 11/09/16 at 13:00 Hydralazine HCl (Apresoline) 25 mg Q8 PO Last administered on 11/12/16 21:50; Admin Dose 25 MG; Start 11/11/16 at 14:00 Metoprolol Tartrate (Lopressor) 12.5 mg BID PO Last administered on 11/12/16 21:56; Admin Dose 12.5 MG; Start 11/11/16 at 21:00 ABBY RAMOS MD Nov 12, 2016 22:46
[2016-11-13] VITALS (12 sets, daily range): BP systolic 122–176; BP diastolic 59–77; PULSE 51–57; RESP 16–19
[2016-11-13] MEDS: ACCUCHECK AT 2AM (Patients on SS coverage) XX SCH (02:00)
[2016-11-13] MEDS: PANTOPRAZOLE (EC) 40 MG TAB PO SCH (05:58)
[2016-11-13 06:13] LABS: ADD SCAN DIFF NO
[2016-11-13 06:34] LABS: POTASSIUM 4.2 mmol/L (3.5-5.1)
[2016-11-13 06:36] LABS: BILIRUBIN,INDIRECT 0.2 mg/dl (0-1.1); BILIRUBIN,TOTAL 0.2 mg/dl (0.2-1.3); CREATININE 2.9 mg/dl (0.61-1.24)
[2016-11-13 06:37] LABS: ALBUMIN/GLOBULIN RATIO 0.62; CALCIUM 7.3 mg/dl (8.4-10.2); TOTAL PROTEIN 5.2 g/dl (6.1-8.1)
[2016-11-13 07:05] LABS: BASOPHIL # 0.1 10^3/ul (0.0-0.1); BASOPHILS % 0.6 % (0.0-2.0); EOSINOPHILS # 0.5 10^3/ul (0.0-0.5); EOSINOPHILS % 3.9 % (0.0-7.0); HEMATOCRIT 25.9 % (42.0-52.0); HEMOGLOBIN 8.3 g/dl (14.0-18.0); LYMPHOCYTES # 1.8 10^3/ul (0.8-2.9); LYMPHOCYTES % 15.4 % (15.0-51.0); MEAN CORPUSCULAR HEMOGLOBIN 28.9 pg (29.0-33.0); MEAN CORPUSCULAR VOLUME 90.2 fl (82.0-101.0); MEAN PLATELET VOLUME 10.9 fl (7.4-10.4); MONOCYTE # 0.9 10^3/ul (0.3-0.9); MONOCYTES % 7.1 % (0.0-11.0); NEUTROPHIL # 8.7 10^3/ul (1.6-7.5); NEUTROPHILS % 72.6 % (39.0-77.0); PLATELET COUNT 417 10^3/UL (140-415); RED BLOOD COUNT 2.87 10^6/ul (4.70-6.10); RED CELL DISTRIBUTION WIDTH 13.9 % (11.5-14.5); WHITE BLOOD COUNT 11.9 10^3/ul (4.8-10.8)
[2016-11-13] MEDS: INSULIN ASPART [NOVOLOG] 3 ML PEN SC SCH ×4 (07:34→21:06)
[2016-11-13] MEDS: COLLAGENASE 30 GM TUBE TOP SCH (08:28)
[2016-11-13] MEDS: METOPROLOL 25 MG TAB PO SCH ×2 (08:36→20:59)
[2016-11-13] MEDS: AMIODARONE 200 MG TAB PO SCH ×2 (08:36→20:58)
--- NOTE | 2016-11-13 14:35 | CONS ---
Date/Time of Note Date/Time of Note DATE: 11/13/16 TIME: 14:34 Assessment/Plan Assessment/Plan Additional Assessment/Plan IMPRESSION: 1. Anemia. 2. Gastrointestinal bleeding which clinically seems to have stopped.ht stable 3. Thrombocytopenia, corrected. 4. Urinary tract infection. 5. Hypertension. 6. Renal failure. 7. 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 Atrial fibrillation Plan aspiration precaution continue present care Consultation Date/Type/Reason Admit Date/Time Oct 30, 2016 at 08:00 Initial Consult Date 11/05/16 Type of Consultation: Hematology Referring Provider: ABBY RAMOS MD 24 HR Interval Summary Constitutional: improved, no complaints Exam/Review of Systems Vital Signs Vitals Vital Signs Date Time Temp Pulse Resp B/P Pulse Ox O2 Delivery O2 Flow Rate FiO2 11/13/16 12:30 53 11/13/16 11:45 98.2 19 145/65 98 Intake and Output 11/12/16 11/12/16 11/13/16 15:00 23:00 07:00 Intake Total 530 ml 300 ml Output Total 350 ml 350 ml Balance 180 ml -50 ml Exam Constitutional: alert, oriented, well developed Psych: nl mood/affect, no complaints Head: atraumatic, normocephalic Eyes: EOMI, PERRL, nl conjunctiva, nl lids, nl sclera ENMT: nl external ears & nose, nl lips & teeth, nl nasal mucosa & septum Neck: non-tender, supple Respiratory: clear to auscultation, normal air movement Cardiovascular: nl pulses, regular rate and rhythm Gastrointestinal: nl liver, spleen, non-tender, soft Musculoskeletal: nl extremities to inspection, nl gait and stance Extremities: normal pulses 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, nl mental status, nl speech, nl strength Skin: nl turgor, No rash or lesions Lymph: nl lymph nodes Results Result Diagram: 11/13/16 0540 11/13/16 0540 Results 24 hrs Laboratory Tests Test 11/12/16 17:11 11/12/16 21:45 11/13/16 02:09 11/13/16 05:40 Bedside Glucose 190 192 108 White Blood Count 11.9 #H Red Blood Count 2.87 L Hemoglobin 8.3 L Hematocrit 25.9 L Mean Corpuscular Volume 90.2 Mean Corpuscular Hemoglobin 28.9 L Mean Corpuscular Hemoglobin Concent 32.0 Red Cell Distribution Width 13.9 Platelet Count 417 H Mean Platelet Volume 10.9 H Neutrophils % 72.6 Lymphocytes % 15.4 Monocytes % 7.1 Eosinophils % 3.9 Basophils % 0.6 Nucleated Red Blood Cells % 0.0 Neutrophils # 8.7 H Lymphocytes # 1.8 Monocytes # 0.9 Eosinophils # 0.5 Basophils # 0.1 Nucleated Red Blood Cells # 0.0 Sodium Level 136 Potassium Level 4.2 Chloride Level 106 Carbon Dioxide Level 23 Anion Gap 11 Blood Urea Nitrogen 27 H Creatinine 2.90 H Glucose Level 120 Calcium Level 7.3 L Total Bilirubin 0.2 Direct Bilirubin 0.00 Indirect Bilirubin 0.2 Aspartate Amino Transf (AST/SGOT) 15 Alanine Aminotransferase (ALT/SGPT) 26 Alkaline Phosphatase 79 Total Protein 5.2 L Albumin 2.0 L Globulin 3.20 Albumin/Globulin Ratio 0.62 Test 11/13/16 07:29 11/13/16 11:23 Bedside Glucose 149 228 H Medications Medications Current Medications Naloxone HCl (Narcan) 0.4 mg Q3M PRN IV DECREASED REPIRATORY RATE; Start at 05:00 Ondansetron HCl (Zofran Inj) 4 mg Q6H PRN IV NAUSEA AND/OR VOMITING; Start 06/08 at 05:00 Acetaminophen (Tylenol Liquid) 650 mg Q6H PRN PO PAIN LEVEL 1-3 OR FEVER; Start 10/30/16 at 05:00 Acetaminophen (Tylenol Tab) 650 mg Q6H PRN PO PAIN LEVEL 1-3 OR FEVER; Start at 05:00 Morphine Sulfate (morphine) 2 mg Q4H PRN IV PAIN LEVEL 7-10 Last administered on 11/09/16 02:08; Admin Dose 2 MG; Start 10/30/16 at 05:00 Zolpidem Tartrate (Ambien) 5 mg QHS PRN PO INSOMNIA; Start 10/30/16 at 05:00 Docusate Sodium (Colace) 100 mg Q12H PRN PO CONSTIPATION; Start 10/30/16 at 05: 00 IV Flush (NS 10 ml) 10 ml PRN PRN IV IV PROTOCOL; Start 10/30/16 at 19:00 Acetaminophen (Tylenol Supp) 650 mg Q6H PRN [place] FEVER Last administered on 08:43; Admin Dose 650 MG; Start 10/31/16 at 09:00 Miscellaneous Information 1 ea NOTE XX ; Start 10/31/16 at 12:30 Glucose (Glutose) 15 gm Q15M PRN PO DECREASED GLUCOSE; Start 10/31/16 at 12:30 Glucose (Glutose) 22.5 gm Q15M PRN PO DECREASED GLUCOSE; Start 10/31/16 at 12: 30 Dextrose (D50w Syringe) 25 ml Q15M PRN IV DECREASED GLUCOSE; Start 10/31/16 at 12:30 Dextrose (D50w Syringe) 50 ml Q15M PRN IV DECREASED GLUCOSE; Start 10/31/16 at 12:30 Glucagon (Glucagen) 1 mg Q15M PRN IM DECREASED GLUCOSE; Start 10/31/16 at 12:30 Glucose (Glutose) 15 gm Q15M PRN BUCCAL DECREASED GLUCOSE; Start 10/31/16 at 12 :30 Hydralazine HCl (Apresoline) 10 mg Q4H PRN IV SBP GREATER THAN 170 Last administered on 11/11/16 21:11; Admin Dose 10 MG; Start 10/31/16 at 23:00 Collagenase (Santyl) 1 applic DAILY TOP Last administered on 11/13/16 08:28; Admin Dose 1 APPLIC; Start 11/06/16 at 17:00 Pantoprazole (Protonix Tab) 40 mg DAILY@06 PO Last administered on 11/13/16 05 :58; Admin Dose 40 MG; Start 11/08/16 at 06:00 Diagnostic Test (Pha) (Accucheck) 1 ea 02 XX Last administered on 11/09/16 02: 07; Admin Dose 1 EA; Start 11/08/16 at 02:00 Amiodarone HCl (Cordarone) 200 mg BID PO Last administered on 11/13/16 08:36; Admin Dose 200 MG; Start 11/09/16 at 21:00 Clonidine HCl (Catapres-Tts 3 Patch) 1 patch Q7D TRANSDERM Last administered on 11/09/16 13:54; Admin Dose 1 PATCH; Start 11/09/16 at 13:00 Hydralazine HCl (Apresoline) 25 mg Q8 PO Last administered on 11/13/16 13:30; Admin Dose 25 MG; Start 11/11/16 at 14:00 Metoprolol Tartrate (Lopressor) 12.5 mg BID PO Last administered on 11/12/16t 21:56; Admin Dose 12.5 MG; Start 11/11/16 at 21:00 JEFRY CERNA MD Nov 13, 2016 14:35
--- NOTE | 2016-11-13 14:51 | CONS ---
Date/Time of Note Date/Time of Note DATE: 11/13/16 TIME: 14:48 Assessment/Plan Assessment/Plan Chief Complaint/Hosp Course The patient is a 62 year old male with GIB s/p EGD and colonoscopy on 10/30/16 with likely bleeding source is between 2nd portion of duodenum and ileum ( portion of gut not reachable with standard endoscopy). The antrum appeared thickened status post random biopsy showed showed chronic gastritis and benign lymphoid aggregates but no evidence of H. pylori and no evidence of intestinal metaplasia, dysplasia or malignancy. CT enterography showed 1. Small punctate focus of gas in the region of the medial duodenal bulb is likely a small diverticulum or normal, a duodenal ulcer is a consideration believed to be less likely. # Normocytic anemia, likely related to GIB, possible anemia of chronic inflammation or chronic kidney disease. - Hemoglobin has been fairly stable. Transfuse < 8. - Iron panel suggests anemia of chronic inflammation, retic count inappropriately low; pending ferritin, Vitamin B12, folate, epo level - LDH elevated, but haptoglobin not suppressed, unlikely hemolysis - agree with capsule endoscopy as outpatient # Leukocytosis, likely reactive. WBC did rise to 15. Pt has a stage II decub which may be infected. f/u blood cx x 2. Resolving. # Thrombocytosis - likely reactive. Resolving. Will continue to follow. Problems: Consultation Date/Type/Reason Admit Date/Time Oct 30, 2016 at 08:00 Initial Consult Date 11/05/16 Type of Consultation: Hematology Referring Provider: ABBY RAMOS MD 24 HR Interval Summary Free Text/Dictation Patient doing well, no melena or hematochezia. Exam/Review of Systems Vital Signs Vitals Vital Signs Date Time Temp Pulse Resp B/P Pulse Ox O2 Delivery O2 Flow Rate FiO2 11/13/16 12:30 53 11/13/16 11:45 98.2 19 145/65 98 Intake and Output 11/12/16 11/12/16 11/13/16 15:00 23:00 07:00 Intake Total 530 ml 300 ml Output Total 350 ml 350 ml Balance 180 ml -50 ml Exam Constitutional: frail Head: atraumatic, normocephalic Eyes: nl conjunctiva ENMT: nl external ears & nose Neck: non-tender, supple Respiratory: clear to auscultation, normal air movement Cardiovascular: regular rate and rhythm Gastrointestinal: soft Musculoskeletal: nl extremities to inspection, nl gait and stance Extremities: normal pulses Results Result Diagram: 11/13/16 0540 11/13/16 0540 Results 24 hrs Laboratory Tests Test 11/12/16 17:11 11/12/16 21:45 11/13/16 02:09 11/13/16 05:40 Bedside Glucose 190 192 108 White Blood Count 11.9 #H Red Blood Count 2.87 L Hemoglobin 8.3 L Hematocrit 25.9 L Mean Corpuscular Volume 90.2 Mean Corpuscular Hemoglobin 28.9 L Mean Corpuscular Hemoglobin Concent 32.0 Red Cell Distribution Width 13.9 Platelet Count 417 H Mean Platelet Volume 10.9 H Neutrophils % 72.6 Lymphocytes % 15.4 Monocytes % 7.1 Eosinophils % 3.9 Basophils % 0.6 Nucleated Red Blood Cells % 0.0 Neutrophils # 8.7 H Lymphocytes # 1.8 Monocytes # 0.9 Eosinophils # 0.5 Basophils # 0.1 Nucleated Red Blood Cells # 0.0 Sodium Level 136 Potassium Level 4.2 Chloride Level 106 Carbon Dioxide Level 23 Anion Gap 11 Blood Urea Nitrogen 27 H Creatinine 2.90 H Glucose Level 120 Calcium Level 7.3 L Total Bilirubin 0.2 Direct Bilirubin 0.00 Indirect Bilirubin 0.2 Aspartate Amino Transf (AST/SGOT) 15 Alanine Aminotransferase (ALT/SGPT) 26 Alkaline Phosphatase 79 Total Protein 5.2 L Albumin 2.0 L Globulin 3.20 Albumin/Globulin Ratio 0.62 Test 11/13/16 07:29 11/13/16 11:23 Bedside Glucose 149 228 H Medications Medications Current Medications Naloxone HCl (Narcan) 0.4 mg Q3M PRN IV DECREASED REPIRATORY RATE; Start at 05:00 Ondansetron HCl (Zofran Inj) 4 mg Q6H PRN IV NAUSEA AND/OR VOMITING; Start 06/08 at 05:00 Acetaminophen (Tylenol Liquid) 650 mg Q6H PRN PO PAIN LEVEL 1-3 OR FEVER; Start 10/30/16 at 05:00 Acetaminophen (Tylenol Tab) 650 mg Q6H PRN PO PAIN LEVEL 1-3 OR FEVER; Start at 05:00 Morphine Sulfate (morphine) 2 mg Q4H PRN IV PAIN LEVEL 7-10 Last administered on 11/09/16t 02:08; Admin Dose 2 MG; Start 10/30/16 at 05:00 Zolpidem Tartrate (Ambien) 5 mg QHS PRN PO INSOMNIA; Start 10/30/16 at 05:00 Docusate Sodium (Colace) 100 mg Q12H PRN PO CONSTIPATION; Start 10/30/16 at 05: 00 IV Flush (NS 10 ml) 10 ml PRN PRN IV IV PROTOCOL; Start 10/30/16 at 19:00 Acetaminophen (Tylenol Supp) 650 mg Q6H PRN [place] FEVER Last administered on 08:43; Admin Dose 650 MG; Start 10/31/16 at 09:00 Miscellaneous Information 1 ea NOTE XX ; Start 10/31/16 at 12:30 Glucose (Glutose) 15 gm Q15M PRN PO DECREASED GLUCOSE; Start 10/31/16 at 12:30 Glucose (Glutose) 22.5 gm Q15M PRN PO DECREASED GLUCOSE; Start 10/31/16 at 12: 30 Dextrose (D50w Syringe) 25 ml Q15M PRN IV DECREASED GLUCOSE; Start 10/31/16 at 12:30 Dextrose (D50w Syringe) 50 ml Q15M PRN IV DECREASED GLUCOSE; Start 10/31/16 at 12:30 Glucagon (Glucagen) 1 mg Q15M PRN IM DECREASED GLUCOSE; Start 10/31/16 at 12:30 Glucose (Glutose) 15 gm Q15M PRN BUCCAL DECREASED GLUCOSE; Start 10/31/16 at 12 :30 Hydralazine HCl (Apresoline) 10 mg Q4H PRN IV SBP GREATER THAN 170 Last administered on 11/11/16 21:11; Admin Dose 10 MG; Start 10/31/16 at 23:00 Collagenase (Santyl) 1 applic DAILY TOP Last administered on 11/13/16 08:28; Admin Dose 1 APPLIC; Start 11/06/16 at 17:00 Pantoprazole (Protonix Tab) 40 mg DAILY@06 PO Last administered on 11/13/16 05 :58; Admin Dose 40 MG; Start 11/08/16 at 06:00 Diagnostic Test (Pha) (Accucheck) 1 ea 02 XX Last administered on 11/09/16 02: 07; Admin Dose 1 EA; Start 11/08/16 at 02:00 Amiodarone HCl (Cordarone) 200 mg BID PO Last administered on 11/13/16 08:36; Admin Dose 200 MG; Start 11/09/16 at 21:00 Clonidine HCl (Catapres-Tts 3 Patch) 1 patch Q7D TRANSDERM Last administered on 11/09/16 13:54; Admin Dose 1 PATCH; Start 11/09/16 at 13:00 Hydralazine HCl (Apresoline) 25 mg Q8 PO Last administered on 11/13/16 13:30; Admin Dose 25 MG; Start 11/11/16 at 14:00 Metoprolol Tartrate (Lopressor) 12.5 mg BID PO Last administered on 11/12/16 21:56; Admin Dose 12.5 MG; Start 11/11/16 at 21:00 TOELIZABETH MD Nov 13, 2016 14:51
--- NOTE | 2016-11-13 15:07 | CONS ---
DATE OF ADMISSION: 10/30/2016 DATE OF CONSULTATION: 11/12/2016 HISTORY OF PRESENT ILLNESS: A 71-year-old male who had recurrent episodes of GI bleeding, now has n o complaints. Spoke to the blood bank business manager or the sitter who spoke Sergio. The patient is able to under stand now. However, he is coughing while eating food and this happens occasionally. OBJECTIVE: VITAL SIGNS: Stable. ABDOMEN: Benign. CARDIOVASCULAR: Normal limits. CENTRAL NERVOUS SYSTEM: Grossly within normal limit. EXTREMITIES: No edema. GENERAL: Patient is bedridden, does not ambulate. IMPRESSION: 1. Gastrointestinal bleeding which has stopped. 2. Atrial fibrillation. 3. Anemia. 4. Hypertension. 5. Renal failure. PLAN: Continue present care. Aspiration precaution and will follow. Dictated By: JEFRY PRUETT/INOCENCIO Conf#: [id number] DID#: [id number]
--- NOTE | 2016-11-13 16:00 | CONS ---
Date/Time of Note Date/Time of Note DATE: 11/13/16 TIME: 15:56 Assessment/Plan Assessment/Plan Chief Complaint/Hosp Course IMPRESSION: 1. Paroxysmal atrial fibrillation-in SR/SB on PO amio as tolerated given bradycardia 2. Hypertension. 3. Abnormal electrocardiogram, assess for acute coronary syndrome.-mildly positive troponin 4. Right bundle branch block pattern. 5. Cerebrovascular accident, question etiology, likely related to paroxysmal atrial fibrillation.-s/p TTE with bubble study 11/04 negative for definite PFO/ ASD 6. Encephalopathy. 7. Gastrointestinal bleed with ongoing GI evaluation-no signs of active bleeding at this time. 8. Possible urinary tract infection. 9. Renal failure. 10. Hyponatremia-resolved 11. Coagulopathy, mild. 12. Anemia. 13. Leukocytosis. Recc: -Continue tele to follow bradycardia close at this time -Continue PO amio as tolerated in attempt to maintain SR -Continue low dose BB as tolerated -Continue hydralazine with slight increase -continue clonidine TTS -Continue abx's -Ongoing Heme/GI eval -Follow hgb closely Problems: Consultation Date/Type/Reason Admit Date/Time Oct 30, 2016 at 08:00 Initial Consult Date 11/03/16 Type of Consultation: Cardiology Reason for Consultation PAF Referring Provider: ABBY RAMOS MD Exam/Review of Systems Vital Signs Vitals Vital Signs Date Time Temp Pulse Resp B/P Pulse Ox O2 Delivery O2 Flow Rate FiO2 11/13/16 15:32 98.3 52 19 176/77 98 Intake and Output 11/12/16 11/12/16 11/13/16 15:00 23:00 07:00 Intake Total 530 ml 300 ml Output Total 350 ml 350 ml Balance 180 ml -50 ml Exam Review of Systems: CONSTITUTIONAL: No fevers, chills. PULMONARY: No sob CARDIOVASCULAR: No chest pain/palpitations GASTROINTESTINAL: No nausea/vomiting. GENITOURINARY: No hematuria/dysuria. MUSCULOSKELETAL: No myagias/arthalgias. PSYCHIATRIC: The patient denies depression. NEUROLOGIC: lethargic Constitutional: other (sleeping) Head: normocephalic Eyes: nl conjunctiva ENMT: mucosa pink and moist Neck: jvd (8 cm water), supple Respiratory: diminished breath sounds (at bases/B) Cardiovascular: other (bradycardic) Gastrointestinal: non-tender, soft Musculoskeletal: muscle tone (normal) Extremities: edema (none) Neurological: lethargic Results Result Diagram: 11/13/16 0540 11/13/16 0540 Results 24 hrs Laboratory Tests Test 11/12/16 17:11 11/12/16 21:45 11/13/16 02:09 11/13/16 05:40 Bedside Glucose 190 192 108 White Blood Count 11.9 #H Red Blood Count 2.87 L Hemoglobin 8.3 L Hematocrit 25.9 L Mean Corpuscular Volume 90.2 Mean Corpuscular Hemoglobin 28.9 L Mean Corpuscular Hemoglobin Concent 32.0 Red Cell Distribution Width 13.9 Platelet Count 417 H Mean Platelet Volume 10.9 H Neutrophils % 72.6 Lymphocytes % 15.4 Monocytes % 7.1 Eosinophils % 3.9 Basophils % 0.6 Nucleated Red Blood Cells % 0.0 Neutrophils # 8.7 H Lymphocytes # 1.8 Monocytes # 0.9 Eosinophils # 0.5 Basophils # 0.1 Nucleated Red Blood Cells # 0.0 Sodium Level 136 Potassium Level 4.2 Chloride Level 106 Carbon Dioxide Level 23 Anion Gap 11 Blood Urea Nitrogen 27 H Creatinine 2.90 H Glucose Level 120 Calcium Level 7.3 L Total Bilirubin 0.2 Direct Bilirubin 0.00 Indirect Bilirubin 0.2 Aspartate Amino Transf (AST/SGOT) 15 Alanine Aminotransferase (ALT/SGPT) 26 Alkaline Phosphatase 79 Total Protein 5.2 L Albumin 2.0 L Globulin 3.20 Albumin/Globulin Ratio 0.62 Test 11/13/16 07:29 11/13/16 11:23 Bedside Glucose 149 228 H Medications Medications Current Medications Naloxone HCl (Narcan) 0.4 mg Q3M PRN IV DECREASED REPIRATORY RATE; Start at 05:00 Ondansetron HCl (Zofran Inj) 4 mg Q6H PRN IV NAUSEA AND/OR VOMITING; Start 06/08 at 05:00 Acetaminophen (Tylenol Liquid) 650 mg Q6H PRN PO PAIN LEVEL 1-3 OR FEVER; Start 10/30/16 at 05:00 Acetaminophen (Tylenol Tab) 650 mg Q6H PRN PO PAIN LEVEL 1-3 OR FEVER; Start at 05:00 Morphine Sulfate (morphine) 2 mg Q4H PRN IV PAIN LEVEL 7-10 Last administered on 11/09/16t 02:08; Admin Dose 2 MG; Start 10/30/16 at 05:00 Zolpidem Tartrate (Ambien) 5 mg QHS PRN PO INSOMNIA; Start 10/30/16 at 05:00 Docusate Sodium (Colace) 100 mg Q12H PRN PO CONSTIPATION; Start 10/30/16 at 05: 00 IV Flush (NS 10 ml) 10 ml PRN PRN IV IV PROTOCOL; Start 10/30/16 at 19:00 Acetaminophen (Tylenol Supp) 650 mg Q6H PRN [place] FEVER Last administered on 08:43; Admin Dose 650 MG; Start 10/31/16 at 09:00 Miscellaneous Information 1 ea NOTE XX ; Start 10/31/16 at 12:30 Glucose (Glutose) 15 gm Q15M PRN PO DECREASED GLUCOSE; Start 10/31/16 at 12:30 Glucose (Glutose) 22.5 gm Q15M PRN PO DECREASED GLUCOSE; Start 10/31/16 at 12: 30 Dextrose (D50w Syringe) 25 ml Q15M PRN IV DECREASED GLUCOSE; Start 10/31/16 at 12:30 Dextrose (D50w Syringe) 50 ml Q15M PRN IV DECREASED GLUCOSE; Start 10/31/16 at 12:30 Glucagon (Glucagen) 1 mg Q15M PRN IM DECREASED GLUCOSE; Start 10/31/16 at 12:30 Glucose (Glutose) 15 gm Q15M PRN BUCCAL DECREASED GLUCOSE; Start 10/31/16 at 12 :30 Hydralazine HCl (Apresoline) 10 mg Q4H PRN IV SBP GREATER THAN 170 Last administered on 11/11/16 21:11; Admin Dose 10 MG; Start 10/31/16 at 23:00 Collagenase (Santyl) 1 applic DAILY TOP Last administered on 11/13/16 08:28; Admin Dose 1 APPLIC; Start 11/06/16 at 17:00 Pantoprazole (Protonix Tab) 40 mg DAILY@06 PO Last administered on 11/13/16 05 :58; Admin Dose 40 MG; Start 11/08/16 at 06:00 Diagnostic Test (Pha) (Accucheck) 1 ea 02 XX Last administered on 11/09/16 02: 07; Admin Dose 1 EA; Start 11/08/16 at 02:00 Amiodarone HCl (Cordarone) 200 mg BID PO Last administered on 11/13/16 08:36; Admin Dose 200 MG; Start 11/09/16 at 21:00 Clonidine HCl (Catapres-Tts 3 Patch) 1 patch Q7D TRANSDERM Last administered on 11/09/16 13:54; Admin Dose 1 PATCH; Start 11/09/16 at 13:00 Hydralazine HCl (Apresoline) 25 mg Q8 PO Last administered on 11/13/16 13:30; Admin Dose 25 MG; Start 11/11/16 at 14:00 Metoprolol Tartrate (Lopressor) 12.5 mg BID PO Last administered on 11/12/16 21:56; Admin Dose 12.5 MG; Start 11/11/16 at 21:00 LESLI SHEA Nov 13, 2016 16:00
--- NOTE | 2016-11-13 16:17 | PN ---
Date/Time of Note Date/Time of Note DATE: 11/13/16 TIME: 16:14 Assessment/Plan VTE Prophylaxis VTE Prophylaxis Intervention: SCD's Lines/Catheters [facility] Urinary Cath still in place: Yes Reason Cath still needed: urinary retention Assessment/Plan Chief Complaint/Hosp Course 1. Patient has massive gastrointestinal bleed.better 2. leucocytosis 3. Metabolic acidosis and acute kidney injury.better 4. cva 5. Hypoalbuminemia. 6 thrombocytopenia better 7 uti 8 p afib Problems: Assessment/Plan 1. dISCHARGE TOMORROW, DR Mcgrath wants to keep pt one more day Subjective 24 Hr Interval Summary Constitutional: improved Eyes: no complaints ENT: no complaints Exam/Review of Systems Vital Signs Vitals Vital Signs Date Time Temp Pulse Resp B/P Pulse Ox O2 Delivery O2 Flow Rate FiO2 11/13/16 15:32 98.3 52 19 176/77 98 Intake and Output 11/12/16 11/12/16 11/13/16 15:00 23:00 07:00 Intake Total 530 ml 300 ml Output Total 350 ml 350 ml Balance 180 ml -50 ml Exam Constitutional: alert, oriented, other (periodicALLY CONFUSED) Psych: no complaints Head: normocephalic Eyes: nl conjunctiva ENMT: nl external ears & nose Neck: supple Respiratory: clear to auscultation Cardiovascular: irregular rhythm Results Result Diagram: 11/13/16 0540 11/13/16 0540 Results 24 hrs Laboratory Tests Test 11/12/16 17:11 11/12/16 21:45 11/13/16 02:09 11/13/16 05:40 Bedside Glucose 190 192 108 White Blood Count 11.9 #H Red Blood Count 2.87 L Hemoglobin 8.3 L Hematocrit 25.9 L Mean Corpuscular Volume 90.2 Mean Corpuscular Hemoglobin 28.9 L Mean Corpuscular Hemoglobin Concent 32.0 Red Cell Distribution Width 13.9 Platelet Count 417 H Mean Platelet Volume 10.9 H Neutrophils % 72.6 Lymphocytes % 15.4 Monocytes % 7.1 Eosinophils % 3.9 Basophils % 0.6 Nucleated Red Blood Cells % 0.0 Neutrophils # 8.7 H Lymphocytes # 1.8 Monocytes # 0.9 Eosinophils # 0.5 Basophils # 0.1 Nucleated Red Blood Cells # 0.0 Sodium Level 136 Potassium Level 4.2 Chloride Level 106 Carbon Dioxide Level 23 Anion Gap 11 Blood Urea Nitrogen 27 H Creatinine 2.90 H Glucose Level 120 Calcium Level 7.3 L Total Bilirubin 0.2 Direct Bilirubin 0.00 Indirect Bilirubin 0.2 Aspartate Amino Transf (AST/SGOT) 15 Alanine Aminotransferase (ALT/SGPT) 26 Alkaline Phosphatase 79 Total Protein 5.2 L Albumin 2.0 L Globulin 3.20 Albumin/Globulin Ratio 0.62 Test 11/13/16 07:29 11/13/16 11:23 Bedside Glucose 149 228 H Medications Medications Current Medications Naloxone HCl (Narcan) 0.4 mg Q3M PRN IV DECREASED REPIRATORY RATE; Start at 05:00 Ondansetron HCl (Zofran Inj) 4 mg Q6H PRN IV NAUSEA AND/OR VOMITING; Start 06/08 at 05:00 Acetaminophen (Tylenol Liquid) 650 mg Q6H PRN PO PAIN LEVEL 1-3 OR FEVER; Start 10/30/16 at 05:00 Acetaminophen (Tylenol Tab) 650 mg Q6H PRN PO PAIN LEVEL 1-3 OR FEVER; Start at 05:00 Morphine Sulfate (morphine) 2 mg Q4H PRN IV PAIN LEVEL 7-10 Last administered on 11/09/16t 02:08; Admin Dose 2 MG; Start 10/30/16 at 05:00 Zolpidem Tartrate (Ambien) 5 mg QHS PRN PO INSOMNIA; Start 10/30/16 at 05:00 Docusate Sodium (Colace) 100 mg Q12H PRN PO CONSTIPATION; Start 10/30/16 at 05: 00 IV Flush (NS 10 ml) 10 ml PRN PRN IV IV PROTOCOL; Start 10/30/16 at 19:00 Acetaminophen (Tylenol Supp) 650 mg Q6H PRN IN FEVER Last administered on t 08:43; Admin Dose 650 MG; Start 10/31/16 at 09:00 Miscellaneous Information 1 ea NOTE XX ; Start 10/31/16 at 12:30 Glucose (Glutose) 15 gm Q15M PRN PO DECREASED GLUCOSE; Start 10/31/16 at 12:30 Glucose (Glutose) 22.5 gm Q15M PRN PO DECREASED GLUCOSE; Start 10/31/16 at 12: 30 Dextrose (D50w Syringe) 25 ml Q15M PRN IV DECREASED GLUCOSE; Start 10/31/16 at 12:30 Dextrose (D50w Syringe) 50 ml Q15M PRN IV DECREASED GLUCOSE; Start 10/31/16 at 12:30 Glucagon (Glucagen) 1 mg Q15M PRN IM DECREASED GLUCOSE; Start 10/31/16 at 12:30 Glucose (Glutose) 15 gm Q15M PRN BUCCAL DECREASED GLUCOSE; Start 10/31/16 at 12 :30 Hydralazine HCl (Apresoline) 10 mg Q4H PRN IV SBP GREATER THAN 170 Last administered on 11/11/16 21:11; Admin Dose 10 MG; Start 10/31/16 at 23:00 Collagenase (Santyl) 1 applic DAILY TOP Last administered on 11/13/16 08:28; Admin Dose 1 APPLIC; Start 11/06/16 at 17:00 Pantoprazole (Protonix Tab) 40 mg DAILY@06 PO Last administered on 11/13/16 05 :58; Admin Dose 40 MG; Start 11/08/16 at 06:00 Diagnostic Test (Pha) (Accucheck) 1 ea 02 XX Last administered on 11/09/16 02: 07; Admin Dose 1 EA; Start 11/08/16 at 02:00 Amiodarone HCl (Cordarone) 200 mg BID PO Last administered on 11/13/16 08:36; Admin Dose 200 MG; Start 11/09/16 at 21:00 Clonidine HCl (Catapres-Tts 3 Patch) 1 patch Q7D TRANSDERM Last administered on 11/09/16 13:54; Admin Dose 1 PATCH; Start 11/09/16 at 13:00 Metoprolol Tartrate (Lopressor) 12.5 mg BID PO Last administered on 11/12/16 21:56; Admin Dose 12.5 MG; Start 11/11/16 at 21:00 Hydralazine HCl (Apresoline) 50 mg Q8 PO ; Start 11/13/16 at 22:00 CHELSIE HERNÁNDEZ 24, 2017 16:17
[2016-11-14] VITALS (11 sets, daily range): BP systolic 138–154; BP diastolic 64–80; PULSE 45–86; RESP 18–20
[2016-11-14] MEDS: ACCUCHECK AT 2AM (Patients on SS coverage) XX SCH (02:00)
[2016-11-14] MEDS: PANTOPRAZOLE (EC) 40 MG TAB PO SCH (06:00)
[2016-11-14] MEDS: AMIODARONE 200 MG TAB PO SCH ×2 (08:30→20:51)
[2016-11-14] MEDS: METOPROLOL 25 MG TAB PO SCH ×2 (08:32→20:52)
[2016-11-14] MEDS: INSULIN ASPART [NOVOLOG] 3 ML PEN SC SCH ×4 (08:32→20:54)
[2016-11-14] MEDS: COLLAGENASE 30 GM TUBE TOP SCH (08:32)
--- NOTE | 2016-11-14 11:43 | PN ---
Date/Time of Note Date/Time of Note DATE: 11/14/16 TIME: 11:40 Assessment/Plan VTE Prophylaxis VTE Prophylaxis Intervention: SCD's Lines/Catheters IV Catheter Type (from [facility]rsg): Saline Lock Urinary Cath still in place: Yes Reason Cath still needed: urinary retention Assessment/Plan Chief Complaint/Hosp Course 1. Patient has massive gastrointestinal bleed.better 2. leucocytosis, improving 3. Metabolic acidosis and acute kidney injury.better 4. cva 5. Hypoalbuminemia. 6 thrombocytopenia better 7 uti 8 HS afib 9. Bradycardia Problems: Assessment/Plan 1. Discharge planning to SNF for mobility. Subjective 24 Hr Interval Summary Constitutional: no complaints Eyes: no complaints ENT: no complaints Exam/Review of Systems Vital Signs Vitals Vital Signs Date Time Temp Pulse Resp B/P Pulse Ox O2 Delivery O2 Flow Rate FiO2 11/14/16 08:29 49 11/14/16 07:03 98.1 18 154/69 98 Intake and Output 11/13/16 11/13/16 11/14/16 15:00 23:00 07:00 Intake Total 600 ml 120 ml Output Total 400 ml 300 ml Balance 200 ml -180 ml Exam Constitutional: other (lethargic easily arousable) Psych: no complaints Head: normocephalic Eyes: nl conjunctiva ENMT: nl external ears & nose Cardiovascular: other (bradycardia 51) Gastrointestinal: soft Genitourinary - Male: nl penis Musculoskeletal: muscle weakness Extremities: normal pulses Results Result Diagram: 11/13/16 0540 11/13/16 0540 Results 24 hrs Laboratory Tests Test 11/13/16 17:04 11/13/16 20:55 11/14/16 02:23 11/14/16 08:26 Bedside Glucose 282 H 242 H 158 168 Test 11/14/16 11:37 Bedside Glucose 234 H Medications Medications Current Medications Naloxone HCl (Narcan) 0.4 mg Q3M PRN IV DECREASED REPIRATORY RATE; Start at 05:00 Ondansetron HCl (Zofran Inj) 4 mg Q6H PRN IV NAUSEA AND/OR VOMITING; Start 06/08 at 05:00 Acetaminophen (Tylenol Liquid) 650 mg Q6H PRN PO PAIN LEVEL 1-3 OR FEVER; Start 10/30/16 at 05:00 Acetaminophen (Tylenol Tab) 650 mg Q6H PRN PO PAIN LEVEL 1-3 OR FEVER; Start at 05:00 Morphine Sulfate (morphine) 2 mg Q4H PRN IV PAIN LEVEL 7-10 Last administered on 11/09/16 02:08; Admin Dose 2 MG; Start 10/30/16 at 05:00 Zolpidem Tartrate (Ambien) 5 mg QHS PRN PO INSOMNIA Last administered on 21:00; Admin Dose 5 MG; Start 10/30/16 at 05:00 Docusate Sodium (Colace) 100 mg Q12H PRN PO CONSTIPATION; Start 10/30/16 at 05: 00 IV Flush (NS 10 ml) 10 ml PRN PRN IV IV PROTOCOL; Start 10/30/16 at 19:00 Acetaminophen (Tylenol Supp) 650 mg Q6H PRN [place] FEVER Last administered on 08:43; Admin Dose 650 MG; Start 10/31/16 at 09:00 Miscellaneous Information 1 ea NOTE XX ; Start 10/31/16 at 12:30 Glucose (Glutose) 15 gm Q15M PRN PO DECREASED GLUCOSE; Start 10/31/16 at 12:30 Glucose (Glutose) 22.5 gm Q15M PRN PO DECREASED GLUCOSE; Start 10/31/16 at 12: 30 Dextrose (D50w Syringe) 25 ml Q15M PRN IV DECREASED GLUCOSE; Start 10/31/16 at 12:30 Dextrose (D50w Syringe) 50 ml Q15M PRN IV DECREASED GLUCOSE; Start 10/31/16 at 12:30 Glucagon (Glucagen) 1 mg Q15M PRN IM DECREASED GLUCOSE; Start 10/31/16 at 12:30 Glucose (Glutose) 15 gm Q15M PRN BUCCAL DECREASED GLUCOSE; Start 10/31/16 at 12 :30 Hydralazine HCl (Apresoline) 10 mg Q4H PRN IV SBP GREATER THAN 170 Last administered on 11/11/16 21:11; Admin Dose 10 MG; Start 10/31/16 at 23:00 Collagenase (Santyl) 1 applic DAILY TOP Last administered on 11/14/16 08:32; Admin Dose 1 APPLIC; Start 11/06/16 at 17:00 Pantoprazole (Protonix Tab) 40 mg DAILY@06 PO Last administered on 11/14/16 06 :00; Admin Dose 40 MG; Start 11/08/16 at 06:00 Diagnostic Test (Pha) (Accucheck) 1 ea 02 XX Last administered on 11/14/16 02: 00; Admin Dose 1 EA; Start 11/08/16 at 02:00 Amiodarone HCl (Cordarone) 200 mg BID PO Last administered on 11/13/16 20:58; Admin Dose 200 MG; Start 11/09/16 at 21:00 Clonidine HCl (Catapres-Tts 3 Patch) 1 patch Q7D TRANSDERM Last administered on 11/09/16 13:54; Admin Dose 1 PATCH; Start 11/09/16 at 13:00 Metoprolol Tartrate (Lopressor) 12.5 mg BID PO Last administered on 11/12/16 21:56; Admin Dose 12.5 MG; Start 11/11/16 at 21:00 Hydralazine HCl (Apresoline) 50 mg Q8 PO Last administered on 11/14/16 06:01; Admin Dose 50 MG; Start 11/13/16 at 22:00 CHELSIE HERNÁNDEZ Nov 14, 2016 11:43
--- NOTE | 2016-11-14 12:10 | PN ---
Date/Time of Note Date/Time of Note DATE: 11/14/16 TIME: 12:08 Assessment/Plan VTE Prophylaxis VTE Prophylaxis Intervention: ambulation Lines/Catheters IV [facility] Type (from [facility] Saline Lock Urinary Cath still in place: Yes Reason Cath still needed: urinary retention Assessment/Plan Assessment/Plan 62 year old male with GIB s/p EGD and colonoscopy on 10/30/16 with likely bleeding source between 2nd portion of duodenum and ileum (portion of gut not reachable with standard endoscopy). The antrum appeared thickened status post random biopsy showed showed chronic gastritis and benign lymphoid aggregates but no evidence of H. pylori and no evidence of intestinal metaplasia, dysplasia or malignancy. CT enterography showed 1. Small punctate focus of gas in the region of the medial duodenal bulb is likely a small diverticulum or normal, a duodenal ulcer is a consideration believed to be less likely. # Normocytic anemia, likely related to GIB, possible anemia of chronic inflammation or chronic kidney disease. - Hemoglobin has been fairly stable. Transfuse < 8. hgb 8.3 and check cbc if she is still inpatient on Wednesday. - Iron panel suggests anemia of chronic inflammation, retic count inappropriately low; pending ferritin, Vitamin B12, folate, epo level - LDH elevated, but haptoglobin not suppressed, unlikely hemolysis - agree with capsule endoscopy as outpatient and d/w Dr Cabral # Leukocytosis, likely reactive. WBC did rise to 15. Pt has a stage II decub which may be infected. f/u blood cx x 2. Resolving. # Thrombocytosis - likely reactive. Resolving. now at 417. Subjective 24 Hr Interval Summary Constitutional: no complaints Eyes: no complaints Cardiovascular: no complaints Gastrointestinal: no complaints Exam/Review of Systems Vital Signs Vitals Vital Signs Date Time Temp Pulse Resp B/P Pulse Ox O2 Delivery O2 Flow Rate FiO2 11/14/16 11:47 98.1 51 18 153/65 95 Intake and Output 11/13/16 11/13/16 11/14/16 15:00 23:00 07:00 Intake Total 600 ml 120 ml Output Total 400 ml 300 ml Balance 200 ml -180 ml Exam Constitutional: alert, oriented Eyes: nl conjunctiva Neck: supple Respiratory: normal air movement Results Result Diagram: 11/13/16 0540 11/13/16 0540 Results 24 hrs Laboratory Tests Test 11/13/16 17:04 11/13/16 20:55 11/14/16 02:23 11/14/16 08:26 Bedside Glucose 282 H 242 H 158 168 Test 11/14/16 11:37 Bedside Glucose 234 H Medications Medications Current Medications Naloxone HCl (Narcan) 0.4 mg Q3M PRN IV DECREASED REPIRATORY RATE; Start at 05:00 Ondansetron HCl (Zofran Inj) 4 mg Q6H PRN IV NAUSEA AND/OR VOMITING; Start 06/08 at 05:00 Acetaminophen (Tylenol Liquid) 650 mg Q6H PRN PO PAIN LEVEL 1-3 OR FEVER; Start 10/30/16 at 05:00 Acetaminophen (Tylenol Tab) 650 mg Q6H PRN PO PAIN LEVEL 1-3 OR FEVER; Start at 05:00 Morphine Sulfate (morphine) 2 mg Q4H PRN IV PAIN LEVEL 7-10 Last administered on 11/09/16 02:08; Admin Dose 2 MG; Start 10/30/16 at 05:00 Zolpidem Tartrate (Ambien) 5 mg QHS PRN PO INSOMNIA Last administered on 21:00; Admin Dose 5 MG; Start 10/30/16 at 05:00 Docusate Sodium (Colace) 100 mg Q12H PRN PO CONSTIPATION; Start 10/30/16 at 05: 00 IV Flush (NS 10 ml) 10 ml PRN PRN IV IV PROTOCOL; Start 10/30/16 at 19:00 Acetaminophen (Tylenol Supp) 650 mg Q6H PRN [place] FEVER Last administered on 08:43; Admin Dose 650 MG; Start 10/31/16 at 09:00 Miscellaneous Information 1 ea NOTE XX ; Start 10/31/16 at 12:30 Glucose (Glutose) 15 gm Q15M PRN PO DECREASED GLUCOSE; Start 10/31/16 at 12:30 Glucose (Glutose) 22.5 gm Q15M PRN PO DECREASED GLUCOSE; Start 10/31/16 at 12: 30 Dextrose (D50w Syringe) 25 ml Q15M PRN IV DECREASED GLUCOSE; Start 10/31/16 at 12:30 Dextrose (D50w Syringe) 50 ml Q15M PRN IV DECREASED GLUCOSE; Start 10/31/16 at 12:30 Glucagon (Glucagen) 1 mg Q15M PRN IM DECREASED GLUCOSE; Start 10/31/16 at 12:30 Glucose (Glutose) 15 gm Q15M PRN BUCCAL DECREASED GLUCOSE; Start 10/31/16 at 12 :30 Hydralazine HCl (Apresoline) 10 mg Q4H PRN IV SBP GREATER THAN 170 Last administered on 11/11/16 21:11; Admin Dose 10 MG; Start 10/31/16 at 23:00 Collagenase (Santyl) 1 applic DAILY TOP Last administered on 11/14/16 08:32; Admin Dose 1 APPLIC; Start 11/06/16 at 17:00 Pantoprazole (Protonix Tab) 40 mg DAILY@06 PO Last administered on 11/14/16 06 :00; Admin Dose 40 MG; Start 11/08/16 at 06:00 Diagnostic Test (Pha) (Accucheck) 1 ea 02 XX Last administered on 11/14/16 02: 00; Admin Dose 1 EA; Start 11/08/16 at 02:00 Amiodarone HCl (Cordarone) 200 mg BID PO Last administered on 11/13/16 20:58; Admin Dose 200 MG; Start 11/09/16 at 21:00 Clonidine HCl (Catapres-Tts 3 Patch) 1 patch Q7D TRANSDERM Last administered on 11/09/16 13:54; Admin Dose 1 PATCH; Start 11/09/16 at 13:00 Metoprolol Tartrate (Lopressor) 12.5 mg BID PO Last administered on 11/12/16 21:56; Admin Dose 12.5 MG; Start 11/11/16 at 21:00 Hydralazine HCl (Apresoline) 50 mg Q8 PO Last administered on 11/14/16 06:01; Admin Dose 50 MG; Start 11/13/16 at 22:00 PAIGE CASTANEDA MD Nov 14, 2016 12:10
[2016-11-14] MEDS ORDERED: BARIUM SULFATE 135 ML (E-Z HD) PO ONE (13:36)
--- NOTE | 2016-11-14 15:19 | RADRPT ---
PROCEDURE: Video swallowing study CLINICAL INDICATION: Dysphagia TECHNIQUE: Modified barium swallowing study was performed. Fluoroscopy was utilized for the proce dure. Imaging was confined to the oral pharyngeal and cervical phases of the swallowing mechanism. Fluoroscopic guidance was utilized during a modified barium swallowing study with multiple swallows of thin and thick liquids. COMPARISON: None available. FINDINGS: There was laryngeal penetration, but no aspiration with nectar-thick barium. There was silent aspir ation with nectar-thick barium via the straw. There was laryngeal penetration with honey thick aminah um and with puree. There was silent aspiration with puree thick barium. There was laryngeal penetr ation with soft, dry solid, and thin liquid barium via the spine. There was silent aspiration with thin barium via cup. There is increased pharyngeal residue with the soft and solids. 2.8 minutes of fluoroscopy time was utilized during the procedure. IMPRESSION: 1. Silent aspiration with nectar-thick of barium via the straw, thin barium via cup, and puree thic k barium. 2. Laryngeal penetration with thicknesses as above. 3. Please refer to swallowing therapist's recommendations for future feedings. RPTAT: QQ .Arvin Alejandra MD, MD Date Time Electronically viewed and signed by .Arvin Alejandra MD, MD on 11/14/2016 15:18 .P/
--- NOTE | 2016-11-14 18:11 | PN ---
DATE: 11/14/2016 On questioning, the patient has no complaints and appears to be comfortable lying in bed, although t here is a language barrier. VITAL SIGNS: Blood pressure is slightly elevated at 153/65, other vital signs are stable. In fact , his heart rate is not so slow at 50. HEAD: Normocephaly. NECK: JVP not traced. Carotid pulses with normal upstrokes. CHEST: Bilaterally symmetrical and nontender. HEART: PMI localized in the fourth intercostal space in the midclavicular line. S1 and S2 are regu lar. LUNGS: Clear to percussion and auscultation. GI: Abdomen soft, nontender belly without any abnormality. EXTREMITIES: No pedal edema, no clubbing, no cyanosis. LABORATORIES: Reveal that his sugar is elevated to 234 this morning at 11:37. IMPRESSION: 1. Hypertension, slightly uncontrolled. 2. Paroxysmal atrial fibrillation, but now in sinus bradycardia on amiodarone. In fact, the amioda magdalena and the metoprolol were held this morning because of the bradycardia. 3. Right bundle branch block pattern. 4. Cerebrovascular accident. RECOMMENDATIONS: Continue same medications, but will decrease the amiodarone to 200 mg once a day a nd will recommend holding the metoprolol and the clonidine patch if the heart rate is below 50, and will also hold amiodarone for a heart rate less than 50. Dictated By: DEBORAH GLASER MD, RA/INOCENCIO Conf#: [id number] DID#: [id number]
[2016-11-15] VITALS (14 sets, daily range): BP systolic 121–174; BP diastolic 56–94; PULSE 40–56; RESP 15–20
[2016-11-15] MEDS: ACCUCHECK AT 2AM (Patients on SS coverage) XX SCH (02:12)
[2016-11-15] MEDS: PANTOPRAZOLE (EC) 40 MG TAB PO SCH (05:35)
[2016-11-15] MEDS: INSULIN ASPART [NOVOLOG] 3 ML PEN SC SCH ×4 (08:52→21:00)
[2016-11-15] MEDS: AMIODARONE 200 MG TAB PO SCH ×2 (08:56→21:40)
[2016-11-15] MEDS: NIFEdipine (XL) 30 MG TAB PO SCH (08:56)
[2016-11-15] MEDS: COLLAGENASE 30 GM TUBE TOP SCH (08:57)
--- NOTE | 2016-11-15 11:56 | CONS ---
Date/Time of Note Date/Time of Note DATE: 11/15/16 TIME: 11:55 Assessment/Plan Assessment/Plan Additional Assessment/Plan Assessment/Plan Assessment/Plan Additional Assessment/Plan IMPRESSION: 1. Anemia. Stable 2. Gastrointestinal bleeding which clinically seems to have stopped.ht stable 3. Thrombocytopenia, corrected. 4. Urinary tract infection. 5. Hypertension. 6. Renal failure. 7. 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 Atrial fibrillation Plan aspiration precaution continue present care Consultation Date/Type/Reason Admit Date/Time Oct 30, 2016 at 08:00 Initial Consult Date 11/05/16 Type of Consultation: Cardiology Referring Provider: ABBY RAMOS MD 24 HR Interval Summary Constitutional: no complaints Exam/Review of Systems Vital Signs Vitals Vital Signs Date Time Temp Pulse Resp B/P Pulse Ox O2 Delivery O2 Flow Rate FiO2 11/15/16 11:37 98.2 53 18 146/67 96 Intake and Output 11/14/16 11/14/16 11/15/16 15:00 23:00 07:00 Intake Total 400 ml Output Total 400 ml Balance 0 ml Exam Constitutional: alert, oriented, well developed Psych: nl mood/affect, no complaints Head: atraumatic, normocephalic Eyes: EOMI, PERRL, nl conjunctiva, nl lids, nl sclera ENMT: nl external ears & nose, nl lips & teeth, nl nasal mucosa & septum Neck: non-tender, supple Respiratory: clear to auscultation, normal air movement Cardiovascular: nl pulses, regular rate and rhythm Gastrointestinal: nl liver, spleen, non-tender, soft Musculoskeletal: nl extremities to inspection, nl gait and stance Extremities: normal pulses Neurological: SOLAR TECHNICIAN II-XII intact, nl mental status, nl speech, nl strength Skin: nl turgor, No rash or lesions Lymph: nl lymph nodes Results Result Diagram: 11/13/16 0540 11/13/16 0540 Results 24 hrs Laboratory Tests Test 11/14/16 17:09 11/14/16 20:47 11/15/16 02:10 11/15/16 08:50 Bedside Glucose 200 210 158 161 Medications Medications Current Medications Naloxone HCl (Narcan) 0.4 mg Q3M PRN IV DECREASED REPIRATORY RATE; Start at 05:00 Ondansetron HCl (Zofran Inj) 4 mg Q6H PRN IV NAUSEA AND/OR VOMITING; Start 06/08 at 05:00 Acetaminophen (Tylenol Liquid) 650 mg Q6H PRN PO PAIN LEVEL 1-3 OR FEVER; Start 10/30/16 at 05:00 Acetaminophen (Tylenol Tab) 650 mg Q6H PRN PO PAIN LEVEL 1-3 OR FEVER; Start at 05:00 Morphine Sulfate (morphine) 2 mg Q4H PRN IV PAIN LEVEL 7-10 Last administered on 11/09/16 02:08; Admin Dose 2 MG; Start 10/30/16 at 05:00 Zolpidem Tartrate (Ambien) 5 mg QHS PRN PO INSOMNIA Last administered on 21:00; Admin Dose 5 MG; Start 10/30/16 at 05:00 Docusate Sodium (Colace) 100 mg Q12H PRN PO CONSTIPATION; Start 10/30/16 at 05: 00 IV Flush (NS 10 ml) 10 ml PRN PRN IV IV PROTOCOL; Start 10/30/16 at 19:00 Acetaminophen (Tylenol Supp) 650 mg Q6H PRN [place] FEVER Last administered on 08:43; Admin Dose 650 MG; Start 10/31/16 at 09:00 Miscellaneous Information 1 ea NOTE XX ; Start 10/31/16 at 12:30 Glucose (Glutose) 15 gm Q15M PRN PO DECREASED GLUCOSE; Start 10/31/16 at 12:30 Glucose (Glutose) 22.5 gm Q15M PRN PO DECREASED GLUCOSE; Start 10/31/16 at 12: 30 Dextrose (D50w Syringe) 25 ml Q15M PRN IV DECREASED GLUCOSE; Start 10/31/16 at 12:30 Dextrose (D50w Syringe) 50 ml Q15M PRN IV DECREASED GLUCOSE; Start 10/31/16 at 12:30 Glucagon (Glucagen) 1 mg Q15M PRN IM DECREASED GLUCOSE; Start 10/31/16 at 12:30 Glucose (Glutose) 15 gm Q15M PRN BUCCAL DECREASED GLUCOSE; Start 10/31/16 at 12 :30 Hydralazine HCl (Apresoline) 10 mg Q4H PRN IV SBP GREATER THAN 170 Last administered on 11/11/16 21:11; Admin Dose 10 MG; Start 10/31/16 at 23:00 Collagenase (Santyl) 1 applic DAILY TOP Last administered on 11/15/16 08:57; Admin Dose 1 APPLIC; Start 11/06/16 at 17:00 Pantoprazole (Protonix Tab) 40 mg DAILY@06 PO Last administered on 11/15/16 05 :35; Admin Dose 40 MG; Start 11/08/16 at 06:00 Diagnostic Test (Pha) (Accucheck) 1 ea 02 XX Last administered on 11/15/16 02: 12; Admin Dose 1 EA; Start 11/08/16 at 02:00 Amiodarone HCl (Cordarone) 200 mg BID PO Last administered on 11/15/16 08:56; Admin Dose 200 MG; Start 11/09/16 at 21:00 Hydralazine HCl (Apresoline) 50 mg Q8 PO Last administered on 11/15/16 05:35; Admin Dose 50 MG; Start 11/13/16 at 22:00 Nifedipine (Procardia Xl) 30 mg DAILY PO Last administered on 11/15/16 08:56; Admin Dose 30 MG; Start 11/15/16 at 09:00 JEFRY CERNA MD Nov 15, 2016 11:56
--- NOTE | 2016-11-15 12:57 | PN ---
Date/Time of Note Date/Time of Note DATE: 11/15/16 TIME: 12:55 Assessment/Plan VTE Prophylaxis VTE Prophylaxis Intervention: ambulation Lines/Catheters IV C[facility]ter Type (from [facility]): Saline Lock Urinary Cath still in place: Yes Reason Cath still needed: urinary retention Assessment/Plan Assessment/Plan 62 year old male with GIB s/p EGD and colonoscopy on 10/30/16 with likely bleeding source between 2nd portion of duodenum and ileum (portion of gut not reachable with standard endoscopy). The antrum appeared thickened status post random biopsy showed showed chronic gastritis and benign lymphoid aggregates but no evidence of H. pylori and no evidence of intestinal metaplasia, dysplasia or malignancy. CT enterography showed small punctate focus of gas in the region of the medial duodenal bulb is likely a small diverticulum or normal, a duodenal ulcer is a consideration believed to be less likely. # Normocytic anemia, likely related to GIB, possible anemia of chronic inflammation or chronic kidney disease. - Hemoglobin has been fairly stable. Transfuse < 8. hgb 8.3 and check cbc if he is still inpatient on Wednesday. - Iron panel suggests anemia of chronic inflammation, retic count inappropriately low; adequate ferritin, Vitamin B12, folate, epo level - LDH elevated, but haptoglobin not suppressed, unlikely hemolysis - agree with capsule endoscopy as outpatient and d/w Dr Cabral yesterday. # Leukocytosis, likely reactive. WBC did rise to 15. Pt has a stage II decub which may be infected. f/u blood cx x 2. Resolving. # Thrombocytosis - likely reactive. Resolving. now at 417. Subjective 24 Hr Interval Summary Free Text/Dictation sitting up for lunch, more awake Constitutional: no complaints Exam/Review of Systems Vital Signs Vitals Vital Signs Date Time Temp Pulse Resp B/P Pulse Ox O2 Delivery O2 Flow Rate FiO2 11/15/16 12:00 51 11/15/16 11:37 98.2 18 146/67 96 Intake and Output 11/14/16 11/14/16 11/15/16 15:00 23:00 07:00 Intake Total 400 ml Output Total 400 ml Balance 0 ml Exam Constitutional: alert, frail Psych: anxiety Eyes: nl conjunctiva Neck: supple Gastrointestinal: soft Results Result Diagram: 11/13/16 0540 11/13/16 0540 Results 24 hrs Laboratory Tests Test 11/14/16 17:09 11/14/16 20:47 11/15/16 02:10 11/15/16 08:50 Bedside Glucose 200 210 158 161 Test 11/15/16 12:07 Bedside Glucose 286 H Medications Medications Current Medications Naloxone HCl (Narcan) 0.4 mg Q3M PRN IV DECREASED REPIRATORY RATE; Start at 05:00 Ondansetron HCl (Zofran Inj) 4 mg Q6H PRN IV NAUSEA AND/OR VOMITING; Start 06/08 at 05:00 Acetaminophen (Tylenol Liquid) 650 mg Q6H PRN PO PAIN LEVEL 1-3 OR FEVER; Start 10/30/16 at 05:00 Acetaminophen (Tylenol Tab) 650 mg Q6H PRN PO PAIN LEVEL 1-3 OR FEVER; Start at 05:00 Morphine Sulfate (morphine) 2 mg Q4H PRN IV PAIN LEVEL 7-10 Last administered on 11/09/16 02:08; Admin Dose 2 MG; Start 10/30/16 at 05:00 Zolpidem Tartrate (Ambien) 5 mg QHS PRN PO INSOMNIA Last administered on 21:00; Admin Dose 5 MG; Start 10/30/16 at 05:00 Docusate Sodium (Colace) 100 mg Q12H PRN PO CONSTIPATION; Start 10/30/16 at 05: 00 IV Flush (NS 10 ml) 10 ml PRN PRN IV IV PROTOCOL; Start 10/30/16 at 19:00 Acetaminophen (Tylenol Supp) 650 mg Q6H PRN [place] FEVER Last administered on 08:43; Admin Dose 650 MG; Start 10/31/16 at 09:00 Miscellaneous Information 1 ea NOTE XX ; Start 10/31/16 at 12:30 Glucose (Glutose) 15 gm Q15M PRN PO DECREASED GLUCOSE; Start 10/31/16 at 12:30 Glucose (Glutose) 22.5 gm Q15M PRN PO DECREASED GLUCOSE; Start 10/31/16 at 12: 30 Dextrose (D50w Syringe) 25 ml Q15M PRN IV DECREASED GLUCOSE; Start 10/31/16 at 12:30 Dextrose (D50w Syringe) 50 ml Q15M PRN IV DECREASED GLUCOSE; Start 10/31/16 at 12:30 Glucagon (Glucagen) 1 mg Q15M PRN IM DECREASED GLUCOSE; Start 10/31/16 at 12:30 Glucose (Glutose) 15 gm Q15M PRN BUCCAL DECREASED GLUCOSE; Start 10/31/16 at 12 :30 Hydralazine HCl (Apresoline) 10 mg Q4H PRN IV SBP GREATER THAN 170 Last administered on 11/11/16 21:11; Admin Dose 10 MG; Start 10/31/16 at 23:00 Collagenase (Santyl) 1 applic DAILY TOP Last administered on 11/15/16 08:57; Admin Dose 1 APPLIC; Start 11/06/16 at 17:00 Pantoprazole (Protonix Tab) 40 mg DAILY@06 PO Last administered on 11/15/16 05 :35; Admin Dose 40 MG; Start 11/08/16 at 06:00 Diagnostic Test (Pha) (Accucheck) 1 ea 02 XX Last administered on 11/15/16 02: 12; Admin Dose 1 EA; Start 11/08/16 at 02:00 Amiodarone HCl (Cordarone) 200 mg BID PO Last administered on 11/15/16 08:56; Admin Dose 200 MG; Start 11/09/16 at 21:00 Hydralazine HCl (Apresoline) 50 mg Q8 PO Last administered on 11/15/16 05:35; Admin Dose 50 MG; Start 11/13/16 at 22:00 Nifedipine (Procardia Xl) 30 mg DAILY PO Last administered on 11/15/16 08:56; Admin Dose 30 MG; Start 11/15/16 at 09:00 PAIGE CASTANEDA MD Nov 15, 2016 12:57
--- NOTE | 2016-11-15 15:36 | PN ---
DATE: 11/15/2016 FOLLOWUP CARDIOLOGY NOTE SUBJECTIVE: On questioning, patient offers no complaint of chest pain or shortness of breath and ap pears comfortable. OBJECTIVE: VITAL SIGNS: Stable. Blood pressure 129/58 and is afebrile. NECK: JVP not raised. CHEST: Bilaterally symmetrical. HEART: S1, S2 are regular. LUNGS: Clear to percussion and auscultation. ABDOMEN: Soft, nontender belly without any organomegaly and bowel sounds are present. EXTREMITIES: Good femoral and pedal pulses. No femoral bruits. No pedal edema. Telemetry is revealing sinus rhythm with sinus bradycardia at times with the heart rate being as slo w as 46 and patient also had bradycardia as low as 35 on 11/13/2016 with also appears to be sinus br adycardia. LABORATORY DATA: The sugar is elevated to 158, but no CBC or chemistry otherwise and there is no re cent imaging either. IMPRESSION: 1. Sinus bradycardia. 2. Paroxysmal atrial fibrillation earlier during the admission, which is now converted to sinus bra dycardia. 3. Hypertension which is under control. 4. Abnormal EKG. 5. Right bundle branch block pattern. 6. Encephalopathy. 7. Cerebrovascular accident. OTHER RECOMMENDATIONS AT : Include that I will discontinue the metoprolol and we will also hol d the amiodarone for now and even we will hold the Catapres patch for now and we will instead use Pr ocardia to control the blood pressure, which will cause some reflex tachycardia and help his bradyca rdia. Dictated By: DEBORAH GLASER MD, RA/INOCENCIO Conf#: [id number] DID#: [id number]
--- NOTE | 2016-11-15 16:25 | PN ---
Date/Time of Note Date/Time of Note DATE: 11/15/16 TIME: 16:23 Assessment/Plan VTE Prophylaxis VTE Prophylaxis Intervention: other Lines/Catheters IV Catheter Type (from Nrsg): Saline Lock Urinary Cath still in place: Yes Reason Cath still needed: other (indicate) Assessment/Plan Chief Complaint/Hosp Course IMPRESSION: 1. Patient has massive gastrointestinal bleed.better 2. leucocytosis 3. Metabolic acidosis and acute kidney injury.better 4. cva 5. Hypoalbuminemia. 6 thrombocytopenia better 7 uti 8 p afib plan snf ck labs per id WAITING FOR SNF Problems: Subjective 24 Hr Interval Summary Respiratory: no complaints Cardiovascular: no complaints Gastrointestinal: No vomiting Exam/Review of Systems Vital Signs Vitals Vital Signs Date Time Temp Pulse Resp B/P Pulse Ox O2 Delivery O2 Flow Rate FiO2 11/15/16 15:25 98.2 56 18 140/60 57 Intake and Output 11/14/16 11/14/16 11/15/16 15:00 23:00 07:00 Intake Total 400 ml Output Total 400 ml Balance 0 ml Exam Neck: supple Respiratory: clear to auscultation Cardiovascular: regular rate and rhythm Gastrointestinal: soft Musculoskeletal: nl extremities to inspection Extremities: normal pulses Results Result Diagram: 11/13/16 0540 11/13/16 0540 Results 24 hrs Laboratory Tests Test 11/14/16 17:09 11/14/16 20:47 11/15/16 02:10 11/15/16 08:50 Bedside Glucose 200 210 158 161 Test 11/15/16 12:07 Bedside Glucose 286 H Medications Medications Current Medications Naloxone HCl (Narcan) 0.4 mg Q3M PRN IV DECREASED REPIRATORY RATE; Start at 05:00 Ondansetron HCl (Zofran Inj) 4 mg Q6H PRN IV NAUSEA AND/OR VOMITING; Start 06/08 at 05:00 Acetaminophen (Tylenol Liquid) 650 mg Q6H PRN PO PAIN LEVEL 1-3 OR FEVER; Start 10/30/16 at 05:00 Acetaminophen (Tylenol Tab) 650 mg Q6H PRN PO PAIN LEVEL 1-3 OR FEVER; Start at 05:00 Morphine Sulfate (morphine) 2 mg Q4H PRN IV PAIN LEVEL 7-10 Last administered on 11/09/16t 02:08; Admin Dose 2 MG; Start 10/30/16 at 05:00 Zolpidem Tartrate (Ambien) 5 mg QHS PRN PO INSOMNIA Last administered on 21:00; Admin Dose 5 MG; Start 10/30/16 at 05:00 Docusate Sodium (Colace) 100 mg Q12H PRN PO CONSTIPATION; Start 10/30/16 at 05: 00 IV Flush (NS 10 ml) 10 ml PRN PRN IV IV PROTOCOL; Start 10/30/16 at 19:00 Acetaminophen (Tylenol Supp) 650 mg Q6H PRN [place] FEVER Last administered on 08:43; Admin Dose 650 MG; Start 10/31/16 at 09:00 Miscellaneous Information 1 ea NOTE XX ; Start 10/31/16 at 12:30 Glucose (Glutose) 15 gm Q15M PRN PO DECREASED GLUCOSE; Start 10/31/16 at 12:30 Glucose (Glutose) 22.5 gm Q15M PRN PO DECREASED GLUCOSE; Start 10/31/16 at 12: 30 Dextrose (D50w Syringe) 25 ml Q15M PRN IV DECREASED GLUCOSE; Start 10/31/16 at 12:30 Dextrose (D50w Syringe) 50 ml Q15M PRN IV DECREASED GLUCOSE; Start 10/31/16 at 12:30 Glucagon (Glucagen) 1 mg Q15M PRN IM DECREASED GLUCOSE; Start 10/31/16 at 12:30 Glucose (Glutose) 15 gm Q15M PRN BUCCAL DECREASED GLUCOSE; Start 10/31/16 at 12 :30 Hydralazine HCl (Apresoline) 10 mg Q4H PRN IV SBP GREATER THAN 170 Last administered on 11/11/16 21:11; Admin Dose 10 MG; Start 10/31/16 at 23:00 Collagenase (Santyl) 1 applic DAILY TOP Last administered on 11/15/16 08:57; Admin Dose 1 APPLIC; Start 11/06/16 at 17:00 Pantoprazole (Protonix Tab) 40 mg DAILY@06 PO Last administered on 11/15/16 05 :35; Admin Dose 40 MG; Start 11/08/16 at 06:00 Diagnostic Test (Pha) (Accucheck) 1 ea 02 XX Last administered on 11/15/16 02: 12; Admin Dose 1 EA; Start 11/08/16 at 02:00 Amiodarone HCl (Cordarone) 200 mg BID PO Last administered on 11/15/16 08:56; Admin Dose 200 MG; Start 11/09/16 at 21:00 Hydralazine HCl (Apresoline) 50 mg Q8 PO Last administered on 11/15/16 14:27; Admin Dose 50 MG; Start 11/13/16 at 22:00 Nifedipine (Procardia Xl) 30 mg DAILY PO Last administered on 11/15/16 08:56; Admin Dose 30 MG; Start 11/15/16 at 09:00 ABBY RAMOS MD Nov 15, 2016 16:25
[2016-11-16] VITALS (12 sets, daily range): BP systolic 89–156; BP diastolic 48–71; PULSE 47–56; RESP 15–20
[2016-11-16] MEDS: ACCUCHECK AT 2AM (Patients on SS coverage) XX SCH (02:00)
[2016-11-16] MEDS: PANTOPRAZOLE (EC) 40 MG TAB PO SCH (05:17)
[2016-11-16 07:34] LABS: ADD SCAN DIFF NO
[2016-11-16 07:42] LABS: BASOPHIL # 0.1 10^3/ul (0.0-0.1); BASOPHILS % 1.1 % (0.0-2.0); EOSINOPHILS # 0.4 10^3/ul (0.0-0.5); EOSINOPHILS % 3.9 % (0.0-7.0); HEMATOCRIT 26.3 % (42.0-52.0); HEMOGLOBIN 8.5 g/dl (14.0-18.0); LYMPHOCYTES # 1.7 10^3/ul (0.8-2.9); MEAN CORPUSCULAR HEMOGLOBIN 28.7 pg (29.0-33.0); MEAN CORPUSCULAR HGB CONC 32.3 g/dl (32.0-37.0); MEAN CORPUSCULAR VOLUME 88.9 fl (82.0-101.0); MEAN PLATELET VOLUME 10.4 fl (7.4-10.4); MONOCYTE # 0.7 10^3/ul (0.3-0.9); MONOCYTES % 7.8 % (0.0-11.0); NEUTROPHIL # 6.3 10^3/ul (1.6-7.5); NEUTROPHILS % 68.8 % (39.0-77.0); PLATELET COUNT 427 10^3/UL (140-415); RED BLOOD COUNT 2.96 10^6/ul (4.70-6.10); RED CELL DISTRIBUTION WIDTH 13.7 % (11.5-14.5); WHITE BLOOD COUNT 9.2 10^3/ul (4.8-10.8)
[2016-11-16 07:56] LABS: POTASSIUM 4.6 mmol/L (3.5-5.1)
[2016-11-16 07:58] LABS: CREATININE 2.76 mg/dl (0.61-1.24)
[2016-11-16 07:59] LABS: CALCIUM 7.3 mg/dl (8.4-10.2)
--- NOTE | 2016-11-16 08:34 | CONS ---
Date/Time of Note Date/Time of Note DATE: 11/16/16 TIME: 08:30 Assessment/Plan Assessment/Plan Chief Complaint/Hosp Course The patient is a 62 year old male with GIB s/p EGD and colonoscopy on 10/30/16 with likely bleeding source is between 2nd portion of duodenum and ileum ( portion of gut not reachable with standard endoscopy). The antrum appeared thickened status post random biopsy showed showed chronic gastritis and benign lymphoid aggregates but no evidence of H. pylori and no evidence of intestinal metaplasia, dysplasia or malignancy. CT enterography showed 1. Small punctate focus of gas in the region of the medial duodenal bulb is likely a small diverticulum or normal, a duodenal ulcer is a consideration believed to be less likely. # Normocytic anemia secondary to GIB, possible anemia of chronic inflammation or chronic kidney disease. - Hemoglobin currently fairly stable greater than 8, transfuse < 8. - Iron panel suggests anemia of chronic inflammation, retic count inappropriately low; pending ferritin, Vitamin B12, folate, epo level - LDH elevated, will check haptoglobin - agree with capsule endoscopy as out patient # Leukocytosis, likely reactive. leukocytosis has now resolved. blood cultures are now negative # Arrhythmia -management per cardiology -agree with holding all blood thinners given risk of GI bleed Will continue to follow. Problems: Consultation Date/Type/Reason Admit Date/Time Oct 30, 2016 at 08:00 Initial Consult Date 11/05/16 Type of Consultation: Hematology Reason for Consultation anemia Referring Provider: ABBY RAMOS MD 24 HR Interval Summary Free Text/Dictation Hg stable. no further evidence of GI bleed Exam/Review of Systems Vital Signs Vitals Vital Signs Date Time Temp Pulse Resp B/P Pulse Ox O2 Delivery O2 Flow Rate FiO2 11/16/16 08:21 55 11/16/16 07:56 98.3 20 136/65 96 Intake and Output 11/15/16 11/15/16 11/16/16 15:00 23:00 07:00 Intake Total 200 ml 640 ml 200 ml Output Total 700 ml 350 ml 600 ml Balance -500 ml 290 ml -400 ml Exam Constitutional: alert, oriented Psych: no complaints Head: atraumatic, normocephalic Eyes: nl conjunctiva ENMT: nl external ears & nose Neck: non-tender Respiratory: clear to auscultation Cardiovascular: irregular rhythm Gastrointestinal: soft Musculoskeletal: nl extremities to inspection, nl gait and stance Extremities: normal pulses Results Result Diagram: 11/16/16 0620 11/16/16 0620 Results 24 hrs Laboratory Tests Test 11/15/16 08:50 11/15/16 12:07 11/15/16 17:00 11/15/16 21:38 Bedside Glucose 161 286 H 236 H 133 Test 11/16/16 06:20 11/16/16 07:24 White Blood Count 9.2 # Red Blood Count 2.96 L Hemoglobin 8.5 L Hematocrit 26.3 L Mean Corpuscular Volume 88.9 Mean Corpuscular Hemoglobin 28.7 L Mean Corpuscular Hemoglobin Concent 32.3 Red Cell Distribution Width 13.7 Platelet Count 427 H Mean Platelet Volume 10.4 Neutrophils % 68.8 Lymphocytes % 18.0 Monocytes % 7.8 Eosinophils % 3.9 Basophils % 1.1 Nucleated Red Blood Cells % 0.0 Neutrophils # 6.3 Lymphocytes # 1.7 Monocytes # 0.7 Eosinophils # 0.4 Basophils # 0.1 Nucleated Red Blood Cells # 0.0 Sodium Level 132 L Potassium Level 4.6 Chloride Level 104 Carbon Dioxide Level 23 Anion Gap 10 Blood Urea Nitrogen 29 H Creatinine 2.76 H Glucose Level 159 Calcium Level 7.3 L Bedside Glucose 230 H Medications Medications Current Medications Naloxone HCl (Narcan) 0.4 mg Q3M PRN IV DECREASED REPIRATORY RATE; Start at 05:00 Ondansetron HCl (Zofran Inj) 4 mg Q6H PRN IV NAUSEA AND/OR VOMITING; Start 06/08 at 05:00 Acetaminophen (Tylenol Liquid) 650 mg Q6H PRN PO PAIN LEVEL 1-3 OR FEVER; Start 10/30/16 at 05:00 Acetaminophen (Tylenol Tab) 650 mg Q6H PRN PO PAIN LEVEL 1-3 OR FEVER; Start at 05:00 Morphine Sulfate (morphine) 2 mg Q4H PRN IV PAIN LEVEL 7-10 Last administered on 11/09/16 02:08; Admin Dose 2 MG; Start 10/30/16 at 05:00 Zolpidem Tartrate (Ambien) 5 mg QHS PRN PO INSOMNIA Last administered on 21:00; Admin Dose 5 MG; Start 10/30/16 at 05:00 Docusate Sodium (Colace) 100 mg Q12H PRN PO CONSTIPATION; Start 10/30/16 at 05: 00 IV Flush (NS 10 ml) 10 ml PRN PRN IV IV PROTOCOL; Start 10/30/16 at 19:00 Acetaminophen (Tylenol Supp) 650 mg Q6H PRN [place] FEVER Last administered on 08:43; Admin Dose 650 MG; Start 10/31/16 at 09:00 Miscellaneous Information 1 ea NOTE XX ; Start 10/31/16 at 12:30 Glucose (Glutose) 15 gm Q15M PRN PO DECREASED GLUCOSE; Start 10/31/16 at 12:30 Glucose (Glutose) 22.5 gm Q15M PRN PO DECREASED GLUCOSE; Start 10/31/16 at 12: 30 Dextrose (D50w Syringe) 25 ml Q15M PRN IV DECREASED GLUCOSE; Start 10/31/16 at 12:30 Dextrose (D50w Syringe) 50 ml Q15M PRN IV DECREASED GLUCOSE; Start 10/31/16 at 12:30 Glucagon (Glucagen) 1 mg Q15M PRN IM DECREASED GLUCOSE; Start 10/31/16 at 12:30 Glucose (Glutose) 15 gm Q15M PRN BUCCAL DECREASED GLUCOSE; Start 10/31/16 at 12 :30 Hydralazine HCl (Apresoline) 10 mg Q4H PRN IV SBP GREATER THAN 170 Last administered on 11/11/16 21:11; Admin Dose 10 MG; Start 10/31/16 at 23:00 Collagenase (Santyl) 1 applic DAILY TOP Last administered on 11/15/16 08:57; Admin Dose 1 APPLIC; Start 11/06/16 at 17:00 Pantoprazole (Protonix Tab) 40 mg DAILY@06 PO Last administered on 11/16/16 05 :17; Admin Dose 40 MG; Start 11/08/16 at 06:00 Diagnostic Test (Pha) (Accucheck) 1 ea 02 XX Last administered on 11/15/16 02: 12; Admin Dose 1 EA; Start 11/08/16 at 02:00 Amiodarone HCl (Cordarone) 200 mg BID PO Last administered on 11/15/16 21:40; Admin Dose 200 MG; Start 11/09/16 at 21:00 Hydralazine HCl (Apresoline) 50 mg Q8 PO Last administered on 11/16/16 05:19; Admin Dose 50 MG; Start 11/13/16 at 22:00 Nifedipine (Procardia Xl) 30 mg DAILY PO Last administered on 11/15/16 08:56; Admin Dose 30 MG; Start 11/15/16 at 09:00 RACHEL HERNANDEZ M.D. Nov 16, 2016 08:34
[2016-11-16] MEDS: AMIODARONE 200 MG TAB PO SCH ×2 (08:46→21:00)
[2016-11-16] MEDS: COLLAGENASE 30 GM TUBE TOP SCH (08:47)
[2016-11-16] MEDS: NIFEdipine (XL) 30 MG TAB PO SCH (08:47)
[2016-11-16] MEDS: INSULIN ASPART [NOVOLOG] 3 ML PEN SC SCH ×4 (08:50→21:35)
--- NOTE | 2016-11-16 13:07 | CONS ---
Date/Time of Note Date/Time of Note DATE: 11/16/16 TIME: 13:01 Assessment/Plan Assessment/Plan Chief Complaint/Hosp Course IMPRESSION: 1. Paroxysmal atrial fibrillation-in SR/SB on PO amio as tolerated given bradycardia 2. Hypertension. 3. Abnormal electrocardiogram, assess for acute coronary syndrome.-mildly positive troponin 4. Right bundle branch block pattern. 5. Cerebrovascular accident, question etiology, likely related to paroxysmal atrial fibrillation.-s/p TTE with bubble study 11/04 negative for definite PFO/ ASD 6. Encephalopathy. 7. Gastrointestinal bleed with ongoing GI evaluation-no signs of active bleeding at this time. 8. Possible urinary tract infection. 9. Renal failure. 10. Hyponatremia-resolved 11. Coagulopathy, mild. 12. Anemia. 13. Leukocytosis. 14. Bradycardia to high 40's-mainlly stable BP. Some low BP today. If remains slow with low BP will consider PPM Recc: -Tele -Continue PO amio as tolerated in attempt to maintain SR -Continue Procardia for now but if BP remains low will d/c -Continue hydralazine with slight increase -Continue abx's -Ongoing Heme/GI eval -Follow hgb closely Problems: Consultation Date/Type/Reason Admit Date/Time Oct 30, 2016 at 08:00 Initial Consult Date 11/03/16 Type of Consultation: Cardiology Reason for Consultation Bradycardia Referring Provider: ABBY RAMOS MD Exam/Review of Systems Vital Signs Vitals Vital Signs Date Time Temp Pulse Resp B/P Pulse Ox O2 Delivery O2 Flow Rate FiO2 11/16/16 12:45 47 11/16/16 11:45 98.3 20 89/48 100 Intake and Output 11/15/16 11/15/16 11/16/16 15:00 23:00 07:00 Intake Total 200 ml 640 ml 200 ml Output Total 700 ml 350 ml 600 ml Balance -500 ml 290 ml -400 ml Exam Review of Systems: CONSTITUTIONAL: No fevers, chills. PULMONARY: No sob CARDIOVASCULAR: No chest pain/palpitations GASTROINTESTINAL: No nausea/vomiting. GENITOURINARY: No hematuria/dysuria. MUSCULOSKELETAL: No myagias/arthalgias. PSYCHIATRIC: The patient denies depression. NEUROLOGIC: lethargic Constitutional: other (sleeping) Psych: no complaints Head: normocephalic ENMT: mucosa pink and moist Neck: jvd (9 cm water), supple Respiratory: diminished breath sounds (at bases/B) Cardiovascular: regular rate and rhythm Gastrointestinal: non-tender, soft Musculoskeletal: muscle tone (normal) Extremities: edema (none) Neurological: lethargic Results Result Diagram: 11/16/16 0620 11/16/16 0620 Results 24 hrs Laboratory Tests Test 11/15/16 17:00 11/15/16 21:38 11/16/16 06:20 11/16/16 07:24 Bedside Glucose 236 H 133 230 H White Blood Count 9.2 # Red Blood Count 2.96 L Hemoglobin 8.5 L Hematocrit 26.3 L Mean Corpuscular Volume 88.9 Mean Corpuscular Hemoglobin 28.7 L Mean Corpuscular Hemoglobin Concent 32.3 Red Cell Distribution Width 13.7 Platelet Count 427 H Mean Platelet Volume 10.4 Neutrophils % 68.8 Lymphocytes % 18.0 Monocytes % 7.8 Eosinophils % 3.9 Basophils % 1.1 Nucleated Red Blood Cells % 0.0 Neutrophils # 6.3 Lymphocytes # 1.7 Monocytes # 0.7 Eosinophils # 0.4 Basophils # 0.1 Nucleated Red Blood Cells # 0.0 Sodium Level 132 L Potassium Level 4.6 Chloride Level 104 Carbon Dioxide Level 23 Anion Gap 10 Blood Urea Nitrogen 29 H Creatinine 2.76 H Glucose Level 159 Calcium Level 7.3 L Test 11/16/16 12:05 Bedside Glucose 206 Medications Medications Current Medications Naloxone HCl (Narcan) 0.4 mg Q3M PRN IV DECREASED REPIRATORY RATE; Start at 05:00 Ondansetron HCl (Zofran Inj) 4 mg Q6H PRN IV NAUSEA AND/OR VOMITING; Start 06/08 at 05:00 Acetaminophen (Tylenol Liquid) 650 mg Q6H PRN PO PAIN LEVEL 1-3 OR FEVER; Start 10/30/16 at 05:00 Acetaminophen (Tylenol Tab) 650 mg Q6H PRN PO PAIN LEVEL 1-3 OR FEVER; Start at 05:00 Morphine Sulfate (morphine) 2 mg Q4H PRN IV PAIN LEVEL 7-10 Last administered on 11/09/16t 02:08; Admin Dose 2 MG; Start 10/30/16 at 05:00 Zolpidem Tartrate (Ambien) 5 mg QHS PRN PO INSOMNIA Last administered on 21:00; Admin Dose 5 MG; Start 10/30/16 at 05:00 Docusate Sodium (Colace) 100 mg Q12H PRN PO CONSTIPATION; Start 10/30/16 at 05: 00 IV Flush (NS 10 ml) 10 ml PRN PRN IV IV PROTOCOL; Start 10/30/16 at 19:00 Acetaminophen (Tylenol Supp) 650 mg Q6H PRN [place] FEVER Last administered on 08:43; Admin Dose 650 MG; Start 10/31/16 at 09:00 Miscellaneous Information 1 ea NOTE XX ; Start 10/31/16 at 12:30 Glucose (Glutose) 15 gm Q15M PRN PO DECREASED GLUCOSE; Start 10/31/16 at 12:30 Glucose (Glutose) 22.5 gm Q15M PRN PO DECREASED GLUCOSE; Start 10/31/16 at 12: 30 Dextrose (D50w Syringe) 25 ml Q15M PRN IV DECREASED GLUCOSE; Start 10/31/16 at 12:30 Dextrose (D50w Syringe) 50 ml Q15M PRN IV DECREASED GLUCOSE; Start 10/31/16 at 12:30 Glucagon (Glucagen) 1 mg Q15M PRN IM DECREASED GLUCOSE; Start 10/31/16 at 12:30 Glucose (Glutose) 15 gm Q15M PRN BUCCAL DECREASED GLUCOSE; Start 10/31/16 at 12 :30 Hydralazine HCl (Apresoline) 10 mg Q4H PRN IV SBP GREATER THAN 170 Last administered on 11/11/16 21:11; Admin Dose 10 MG; Start 10/31/16 at 23:00 Collagenase (Santyl) 1 applic DAILY TOP Last administered on 11/16/16 08:47; Admin Dose 1 APPLIC; Start 11/06/16 at 17:00 Pantoprazole (Protonix Tab) 40 mg DAILY@06 PO Last administered on 11/16/16 05 :17; Admin Dose 40 MG; Start 11/08/16 at 06:00 Diagnostic Test (Pha) (Accucheck) 1 ea 02 XX Last administered on 11/15/16 02: 12; Admin Dose 1 EA; Start 11/08/16 at 02:00 Amiodarone HCl (Cordarone) 200 mg BID PO Last administered on 11/15/16 21:40; Admin Dose 200 MG; Start 11/09/16 at 21:00 Hydralazine HCl (Apresoline) 50 mg Q8 PO Last administered on 11/16/16 05:19; Admin Dose 50 MG; Start 11/13/16 at 22:00 Nifedipine (Procardia Xl) 30 mg DAILY PO Last administered on 11/16/16 08:47; Admin Dose 30 MG; Start 11/15/16 at 09:00 LESLI SHEA Nov 16, 2016 13:07
--- NOTE | 2016-11-16 17:37 | PN ---
Date/Time of Note Date/Time of Note DATE: 11/16/16 TIME: 17:35 Assessment/Plan VTE Prophylaxis VTE Prophylaxis Intervention: other Lines/Catheters IV [facility] Urinary Cath still in place: Yes Reason Cath still needed: other (indicate) Assessment/Plan Chief Complaint/Hosp Course IMPRESSION: 1. Patient has massive gastrointestinal bleed.better 2. leucocytosis better 3. Metabolic acidosis and acute kidney injury.better 4. cva 5. Hypoalbuminemia. 6 thrombocytopenia better 7 uti 8 p afib plan snf per id WAITING FOR SNF d/w son Problems: Subjective 24 Hr Interval Summary Respiratory: no complaints Cardiovascular: no complaints Exam/Review of Systems Vital Signs Vitals Vital Signs Date Time Temp Pulse Resp B/P Pulse Ox O2 Delivery O2 Flow Rate FiO2 11/16/16 16:28 53 11/16/16 15:32 98.4 20 106/53 95 Intake and Output 11/15/16 11/15/16 11/16/16 15:00 23:00 07:00 Intake Total 200 ml 640 ml 200 ml Output Total 700 ml 350 ml 600 ml Balance -500 ml 290 ml -400 ml Exam Respiratory: clear to auscultation Cardiovascular: regular rate and rhythm Gastrointestinal: soft Musculoskeletal: nl extremities to inspection Extremities: normal pulses Results Result Diagram: 11/16/16 0620 11/16/16 0620 Results 24 hrs Laboratory Tests Test 11/15/16 21:38 11/16/16 06:20 11/16/16 07:24 11/16/16 12:05 Bedside Glucose 133 230 H 206 White Blood Count 9.2 # Red Blood Count 2.96 L Hemoglobin 8.5 L Hematocrit 26.3 L Mean Corpuscular Volume 88.9 Mean Corpuscular Hemoglobin 28.7 L Mean Corpuscular Hemoglobin Concent 32.3 Red Cell Distribution Width 13.7 Platelet Count 427 H Mean Platelet Volume 10.4 Neutrophils % 68.8 Lymphocytes % 18.0 Monocytes % 7.8 Eosinophils % 3.9 Basophils % 1.1 Nucleated Red Blood Cells % 0.0 Neutrophils # 6.3 Lymphocytes # 1.7 Monocytes # 0.7 Eosinophils # 0.4 Basophils # 0.1 Nucleated Red Blood Cells # 0.0 Sodium Level 132 L Potassium Level 4.6 Chloride Level 104 Carbon Dioxide Level 23 Anion Gap 10 Blood Urea Nitrogen 29 H Creatinine 2.76 H Glucose Level 159 Calcium Level 7.3 L Test 11/16/16 17:12 Bedside Glucose 198 Medications Medications Current Medications Naloxone HCl (Narcan) 0.4 mg Q3M PRN IV DECREASED REPIRATORY RATE; Start at 05:00 Ondansetron HCl (Zofran Inj) 4 mg Q6H PRN IV NAUSEA AND/OR VOMITING; Start 06/08 at 05:00 Acetaminophen (Tylenol Liquid) 650 mg Q6H PRN PO PAIN LEVEL 1-3 OR FEVER; Start 10/30/16 at 05:00 Acetaminophen (Tylenol Tab) 650 mg Q6H PRN PO PAIN LEVEL 1-3 OR FEVER; Start at 05:00 Morphine Sulfate (morphine) 2 mg Q4H PRN IV PAIN LEVEL 7-10 Last administered on 11/09/16 02:08; Admin Dose 2 MG; Start 10/30/16 at 05:00 Zolpidem Tartrate (Ambien) 5 mg QHS PRN PO INSOMNIA Last administered on 21:00; Admin Dose 5 MG; Start 10/30/16 at 05:00 Docusate Sodium (Colace) 100 mg Q12H PRN PO CONSTIPATION; Start 10/30/16 at 05: 00 IV Flush (NS 10 ml) 10 ml PRN PRN IV IV PROTOCOL; Start 10/30/16 at 19:00 Acetaminophen (Tylenol Supp) 650 mg Q6H PRN [place] FEVER Last administered on 08:43; Admin Dose 650 MG; Start 10/31/16 at 09:00 Miscellaneous Information 1 ea NOTE XX ; Start 10/31/16 at 12:30 Glucose (Glutose) 15 gm Q15M PRN PO DECREASED GLUCOSE; Start 10/31/16 at 12:30 Glucose (Glutose) 22.5 gm Q15M PRN PO DECREASED GLUCOSE; Start 10/31/16 at 12: 30 Dextrose (D50w Syringe) 25 ml Q15M PRN IV DECREASED GLUCOSE; Start 10/31/16 at 12:30 Dextrose (D50w Syringe) 50 ml Q15M PRN IV DECREASED GLUCOSE; Start 10/31/16 at 12:30 Glucagon (Glucagen) 1 mg Q15M PRN IM DECREASED GLUCOSE; Start 10/31/16 at 12:30 Glucose (Glutose) 15 gm Q15M PRN BUCCAL DECREASED GLUCOSE; Start 10/31/16 at 12 :30 Hydralazine HCl (Apresoline) 10 mg Q4H PRN IV SBP GREATER THAN 170 Last administered on 11/11/16 21:11; Admin Dose 10 MG; Start 10/31/16 at 23:00 Collagenase (Santyl) 1 applic DAILY TOP Last administered on 11/16/16 08:47; Admin Dose 1 APPLIC; Start 11/06/16 at 17:00 Pantoprazole (Protonix Tab) 40 mg DAILY@06 PO Last administered on 11/16/16 05 :17; Admin Dose 40 MG; Start 11/08/16 at 06:00 Diagnostic Test (Pha) (Accucheck) 1 ea 02 XX Last administered on 11/15/16 02: 12; Admin Dose 1 EA; Start 11/08/16 at 02:00 Amiodarone HCl (Cordarone) 200 mg BID PO Last administered on 11/15/16 21:40; Admin Dose 200 MG; Start 11/09/16 at 21:00 Hydralazine HCl (Apresoline) 50 mg Q8 PO Last administered on 11/16/16 05:19; Admin Dose 50 MG; Start 11/13/16 at 22:00 Nifedipine (Procardia Xl) 30 mg DAILY PO Last administered on 11/16/16 08:47; Admin Dose 30 MG; Start 11/15/16 at 09:00 Insulin Glargine (Lantus) 15 unit QHS SC ; Start 11/16/16 at 21:00 ABBY RAMOS MD Nov 16, 2016 17:37
--- NOTE | 2016-11-16 19:56 | CONS ---
Date/Time of Note Date/Time of Note DATE: 11/16/16 TIME: 19:56 Assessment/Plan Assessment/Plan Additional Assessment/Plan IMPRESSION: 1. Anemia. Stable 2. Gastrointestinal bleeding which clinically seems to have stopped.ht stable 3. Thrombocytopenia, corrected. 4. Urinary tract infection. 5. Hypertension. 6. Renal failure. 7. 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 Atrial fibrillation Plan aspiration precaution continue present care Physical therapy Transfer to SNF when stable Consultation Date/Type/Reason Admit Date/Time Oct 30, 2016 at 08:00 Initial Consult Date 11/05/16 Type of Consultation: Cardiology Referring Provider: ABBY RAMOS MD 24 HR Interval Summary Constitutional: improved, no complaints Exam/Review of Systems Vital Signs Vitals Vital Signs Date Time Temp Pulse Resp B/P Pulse Ox O2 Delivery O2 Flow Rate FiO2 11/16/16 18:57 97.5 54 15 107/55 95 Intake and Output 11/15/16 11/15/16 11/16/16 15:00 23:00 07:00 Intake Total 200 ml 640 ml 200 ml Output Total 700 ml 350 ml 600 ml Balance -500 ml 290 ml -400 ml Exam Constitutional: alert, oriented, well developed Psych: nl mood/affect, no complaints Head: atraumatic, normocephalic Eyes: EOMI, PERRL, nl conjunctiva, nl lids, nl sclera ENMT: nl external ears & nose, nl lips & teeth, nl nasal mucosa & septum Neck: non-tender, supple Respiratory: clear to auscultation, normal air movement Cardiovascular: nl pulses, regular rate and rhythm Gastrointestinal: nl liver, spleen, non-tender, soft Musculoskeletal: nl extremities to inspection, nl gait and stance Extremities: normal pulses Neurological: [employer] II-XII intact, nl mental status, nl speech, nl strength Skin: nl turgor, No rash or lesions Lymph: nl lymph nodes Results Result Diagram: 11/16/16 0620 11/16/16 0620 Results 24 hrs Laboratory Tests Test 11/15/16 21:38 11/16/16 06:20 11/16/16 07:24 11/16/16 12:05 Bedside Glucose 133 230 H 206 White Blood Count 9.2 # Red Blood Count 2.96 L Hemoglobin 8.5 L Hematocrit 26.3 L Mean Corpuscular Volume 88.9 Mean Corpuscular Hemoglobin 28.7 L Mean Corpuscular Hemoglobin Concent 32.3 Red Cell Distribution Width 13.7 Platelet Count 427 H Mean Platelet Volume 10.4 Neutrophils % 68.8 Lymphocytes % 18.0 Monocytes % 7.8 Eosinophils % 3.9 Basophils % 1.1 Nucleated Red Blood Cells % 0.0 Neutrophils # 6.3 Lymphocytes # 1.7 Monocytes # 0.7 Eosinophils # 0.4 Basophils # 0.1 Nucleated Red Blood Cells # 0.0 Sodium Level 132 L Potassium Level 4.6 Chloride Level 104 Carbon Dioxide Level 23 Anion Gap 10 Blood Urea Nitrogen 29 H Creatinine 2.76 H Glucose Level 159 Calcium Level 7.3 L Test 11/16/16 17:12 Bedside Glucose 198 Medications Medications Current Medications Naloxone HCl (Narcan) 0.4 mg Q3M PRN IV DECREASED REPIRATORY RATE; Start at 05:00 Ondansetron HCl (Zofran Inj) 4 mg Q6H PRN IV NAUSEA AND/OR VOMITING; Start 06/08 at 05:00 Acetaminophen (Tylenol Liquid) 650 mg Q6H PRN PO PAIN LEVEL 1-3 OR FEVER; Start 10/30/16 at 05:00 Acetaminophen (Tylenol Tab) 650 mg Q6H PRN PO PAIN LEVEL 1-3 OR FEVER; Start at 05:00 Morphine Sulfate (morphine) 2 mg Q4H PRN IV PAIN LEVEL 7-10 Last administered on 11/09/16 02:08; Admin Dose 2 MG; Start 10/30/16 at 05:00 Zolpidem Tartrate (Ambien) 5 mg QHS PRN PO INSOMNIA Last administered on 21:00; Admin Dose 5 MG; Start 10/30/16 at 05:00 Docusate Sodium (Colace) 100 mg Q12H PRN PO CONSTIPATION; Start 10/30/16 at 05: 00 IV Flush (NS 10 ml) 10 ml PRN PRN IV IV PROTOCOL; Start 10/30/16 at 19:00 Acetaminophen (Tylenol Supp) 650 mg Q6H PRN [place] FEVER Last administered on 08:43; Admin Dose 650 MG; Start 10/31/16 at 09:00 Miscellaneous Information 1 ea NOTE XX ; Start 10/31/16 at 12:30 Glucose (Glutose) 15 gm Q15M PRN PO DECREASED GLUCOSE; Start 10/31/16 at 12:30 Glucose (Glutose) 22.5 gm Q15M PRN PO DECREASED GLUCOSE; Start 10/31/16 at 12: 30 Dextrose (D50w Syringe) 25 ml Q15M PRN IV DECREASED GLUCOSE; Start 10/31/16 at 12:30 Dextrose (D50w Syringe) 50 ml Q15M PRN IV DECREASED GLUCOSE; Start 10/31/16 at 12:30 Glucagon (Glucagen) 1 mg Q15M PRN IM DECREASED GLUCOSE; Start 10/31/16 at 12:30 Glucose (Glutose) 15 gm Q15M PRN BUCCAL DECREASED GLUCOSE; Start 10/31/16 at 12 :30 Hydralazine HCl (Apresoline) 10 mg Q4H PRN IV SBP GREATER THAN 170 Last administered on 11/11/16 21:11; Admin Dose 10 MG; Start 10/31/16 at 23:00 Collagenase (Santyl) 1 applic DAILY TOP Last administered on 11/16/16 08:47; Admin Dose 1 APPLIC; Start 11/06/16 at 17:00 Pantoprazole (Protonix Tab) 40 mg DAILY@06 PO Last administered on 11/16/16 05 :17; Admin Dose 40 MG; Start 11/08/16 at 06:00 Diagnostic Test (Pha) (Accucheck) 1 ea 02 XX Last administered on 11/15/16 02: 12; Admin Dose 1 EA; Start 11/08/16 at 02:00 Amiodarone HCl (Cordarone) 200 mg BID PO Last administered on 11/15/16 21:40; Admin Dose 200 MG; Start 11/09/16 at 21:00 Hydralazine HCl (Apresoline) 50 mg Q8 PO Last administered on 11/16/16 05:19; Admin Dose 50 MG; Start 11/13/16 at 22:00 Nifedipine (Procardia Xl) 30 mg DAILY PO Last administered on 11/16/16 08:47; Admin Dose 30 MG; Start 11/15/16 at 09:00 Insulin Glargine (Lantus) 15 unit QHS SC ; Start 11/16/16 at 21:00 JEFRY CERNA MD Nov 16, 2016 19:56
[2016-11-16] MEDS ORDERED: INSULIN GLARGINE [LANtus] 3 ML PEN SC SCH (21:00)
[2016-11-17] VITALS (12 sets, daily range): BP systolic 102–135; BP diastolic 51–62; PULSE 45–54; RESP 17–20
[2016-11-17] MEDS: ACCUCHECK AT 2AM (Patients on SS coverage) XX SCH (02:00)
[2016-11-17] MEDS: PANTOPRAZOLE (EC) 40 MG TAB PO SCH (05:47)
[2016-11-17] MEDS ORDERED: INSULIN ASPART [NOVOLOG] 3 ML PEN SC SCH (07:25)
[2016-11-17] MEDS ORDERED: Insulin NOVOLOG SS MILD Algorithm (SS with meals and bedtime) SC SCH (07:25)
[2016-11-17] MEDS ORDERED: INSULIN GLARGINE [LANtus] 3 ML PEN SC SCH (08:00)
[2016-11-17] MEDS: INSULIN ASPART [NOVOLOG] 3 ML PEN SC SCH ×4 (08:03→20:25)
[2016-11-17] MEDS: AMIODARONE 200 MG TAB PO SCH ×2 (08:04→21:00)
[2016-11-17] MEDS: COLLAGENASE 30 GM TUBE TOP SCH (08:04)
[2016-11-17] MEDS: NIFEdipine (XL) 30 MG TAB PO SCH (08:05)
--- NOTE | 2016-11-17 09:24 | CONS ---
Date/Time of Note Date/Time of Note DATE: 11/17/16 TIME: 09:22 Assessment/Plan Assessment/Plan Additional Assessment/Plan 1. Paroxysmal atrial fibrillation-in SR/SB on PO amio as tolerated given bradycardia - no indication for pacer now 2. Hypertension- better Rx, will monitor closely 3. Abnormal electrocardiogram, assess for acute coronary syndrome.-mildly positive troponin 4. Right bundle branch block pattern- chronic 5. Cerebrovascular accident, question etiology, likely related to paroxysmal atrial fibrillation.-s/p TTE with bubble study 11/04 negative for definite PFO/ ASD 6. Encephalopathy- stable 7. Gastrointestinal bleed with ongoing GI evaluation-no signs of active bleeding at this time. 8. Possible urinary tract infection. 9. Renal failure- avoid nephrotoxic meds 10. Hyponatremia-resolved 11. Coagulopathy, mild. 12. Anemia. 13. Leukocytosis. 14. Bradycardia to high 40's-mainlly stable BP. Some low BP today. If remains slow with low BP will consider PPM Consultation Date/Type/Reason Admit Date/Time Oct 30, 2016 at 08:00 Initial Consult Date 11/05/16 Type of Consultation: Cardiology Referring Provider: ABBY RAMOS MD 24 HR Interval Summary Free Text/Dictation NO acute change - HR stable on tele ROS: No fever, no chills, no nausea, no vomiting, no diarrhea/constipation No recent weight changes No chest pain, no PND, no orthopnea No dizziness, blurred vision No thirst, no heat or cold intolerance (per nurse) Exam/Review of Systems Vital Signs Vitals Vital Signs Date Time Temp Pulse Resp B/P Pulse Ox O2 Delivery O2 Flow Rate FiO2 11/17/16 08:16 51 11/17/16 07:44 97.8 20 135/60 98 Intake and Output 11/16/16 11/16/16 11/17/16 14:59 22:59 06:59 Intake Total 300 ml 400 ml Output Total 200 ml 350 ml Balance 100 ml 50 ml Exam General: WN/WD/NAD, AOx 1-2 HEENT: Unicetric/atraumatic/EOMI (does not follow commands) NECK: JVD elevated, no thyromegaly Lymph: no lymphadenopathy HEART: regular with no S3, II/ systolic murmur at apex LUNGS: Coarse sounds ABD: soft, NT, ND, +BS : Intact Neuro: non focal SKIN: chronic changes EXT: trace edema Results Result Diagram: 11/16/16 0620 11/16/16 0620 Results 24 hrs Laboratory Tests Test 11/16/16 12:05 11/16/16 17:12 11/16/16 21:20 11/17/16 02:04 Bedside Glucose 206 198 156 53 L Test 11/17/16 05:46 11/17/16 05:59 11/17/16 06:17 11/17/16 07:16 Bedside Glucose 53 L 54 L 105 185 Medications Medications Current Medications Naloxone HCl (Narcan) 0.4 mg Q3M PRN IV DECREASED REPIRATORY RATE; Start at 05:00 Ondansetron HCl (Zofran Inj) 4 mg Q6H PRN IV NAUSEA AND/OR VOMITING; Start 06/08 at 05:00 Acetaminophen (Tylenol Liquid) 650 mg Q6H PRN PO PAIN LEVEL 1-3 OR FEVER; Start 10/30/16 at 05:00 Acetaminophen (Tylenol Tab) 650 mg Q6H PRN PO PAIN LEVEL 1-3 OR FEVER; Start at 05:00 Morphine Sulfate (morphine) 2 mg Q4H PRN IV PAIN LEVEL 7-10 Last administered on 11/09/16 02:08; Admin Dose 2 MG; Start 10/30/16 at 05:00 Zolpidem Tartrate (Ambien) 5 mg QHS PRN PO INSOMNIA Last administered on 21:00; Admin Dose 5 MG; Start 10/30/16 at 05:00 Docusate Sodium (Colace) 100 mg Q12H PRN PO CONSTIPATION; Start 10/30/16 at 05: 00 IV Flush (NS 10 ml) 10 ml PRN PRN IV IV PROTOCOL; Start 10/30/16 at 19:00 Acetaminophen (Tylenol Supp) 650 mg Q6H PRN [place] FEVER Last administered on 08:43; Admin Dose 650 MG; Start 10/31/16 at 09:00 Miscellaneous Information 1 ea NOTE XX ; Start 10/31/16 at 12:30 Glucose (Glutose) 15 gm Q15M PRN PO DECREASED GLUCOSE; Start 10/31/16 at 12:30 Glucose (Glutose) 22.5 gm Q15M PRN PO DECREASED GLUCOSE; Start 10/31/16 at 12: 30 Dextrose (D50w Syringe) 25 ml Q15M PRN IV DECREASED GLUCOSE; Start 10/31/16 at 12:30 Dextrose (D50w Syringe) 50 ml Q15M PRN IV DECREASED GLUCOSE Last administered on 11/17/16 02:10; Admin Dose 50 ML; Start 10/31/16 at 12:30 Glucagon (Glucagen) 1 mg Q15M PRN IM DECREASED GLUCOSE; Start 10/31/16 at 12:30 Glucose (Glutose) 15 gm Q15M PRN BUCCAL DECREASED GLUCOSE; Start 10/31/16 at 12 :30 Hydralazine HCl (Apresoline) 10 mg Q4H PRN IV SBP GREATER THAN 170 Last administered on 11/11/16 21:11; Admin Dose 10 MG; Start 10/31/16 at 23:00 Collagenase (Santyl) 1 applic DAILY TOP Last administered on 11/17/16 08:04; Admin Dose 1 APPLIC; Start 11/06/16 at 17:00 Pantoprazole (Protonix Tab) 40 mg DAILY@06 PO Last administered on 11/17/16 05 :47; Admin Dose 40 MG; Start 11/08/16 at 06:00 Diagnostic Test (Pha) (Accucheck) 1 ea 02 XX Last administered on 11/15/16 02: 12; Admin Dose 1 EA; Start 11/08/16 at 02:00 Amiodarone HCl (Cordarone) 200 mg BID PO Last administered on 11/15/16 21:40; Admin Dose 200 MG; Start 11/09/16 at 21:00 Hydralazine HCl (Apresoline) 50 mg Q8 PO Last administered on 11/17/16 05:47; Admin Dose 50 MG; Start 11/13/16 at 22:00 Nifedipine (Procardia Xl) 30 mg DAILY PO Last administered on 11/17/16 08:05; Admin Dose 30 MG; Start 11/15/16 at 09:00 Diagnostic Test (Pha) (Accu-Chek) 1 ea 02 XX ; Start 11/18/16 at 02:00 HERBERTH ZUNIGA MD Nov 17, 2016 09:24
--- NOTE | 2016-11-17 15:38 | CONS ---
Date/Time of Note Date/Time of Note DATE: 11/17/16 TIME: 15:36 Assessment/Plan Assessment/Plan Chief Complaint/Hosp Course The patient is a 62 year old male with GIB s/p EGD and colonoscopy on 10/30/16 with likely bleeding source is between 2nd portion of duodenum and ileum ( portion of gut not reachable with standard endoscopy). The antrum appeared thickened status post random biopsy showed showed chronic gastritis and benign lymphoid aggregates but no evidence of H. pylori and no evidence of intestinal metaplasia, dysplasia or malignancy. CT enterography showed 1. Small punctate focus of gas in the region of the medial duodenal bulb is likely a small diverticulum or normal, a duodenal ulcer is a consideration believed to be less likely. # Normocytic anemia secondary to GIB, possible anemia of chronic inflammation or chronic kidney disease. - Hemoglobin currently fairly stable greater than 8, transfuse < 8. - Iron panel suggests anemia of chronic inflammation, retic count inappropriately low; pending ferritin, Vitamin B12, folate, epo level - LDH elevated, will check haptoglobin - agree with capsule endoscopy as out patient # Leukocytosis, likely reactive. leukocytosis has now resolved. blood cultures are now negative # Arrhythmia -management per cardiology -agree with holding all blood thinners given risk of GI bleed will sign off for now as patient is currently awaiting placement. please call with any further questions Problems: Consultation Date/Type/Reason Admit Date/Time Oct 30, 2016 at 08:00 Initial Consult Date 11/05/16 Type of Consultation: oncology/ hematology Reason for Consultation anemia/ gi bleed Referring Provider: ABBY RAMOS MD 24 HR Interval Summary Free Text/Dictation no acute overnight events. no bleeding Exam/Review of Systems Vital Signs Vitals Vital Signs Date Time Temp Pulse Resp B/P Pulse Ox O2 Delivery O2 Flow Rate FiO2 11/17/16 15:18 97.7 50 20 122/60 96 Intake and Output 11/16/16 11/16/16 11/17/16 15:00 23:00 07:00 Intake Total 300 ml 400 ml Output Total 200 ml 350 ml Balance 100 ml 50 ml Exam Constitutional: alert Head: atraumatic, normocephalic Eyes: nl conjunctiva ENMT: nl external ears & nose Neck: non-tender, supple Respiratory: clear to auscultation Cardiovascular: regular rate and rhythm Gastrointestinal: soft Musculoskeletal: nl extremities to inspection Results Result Diagram: 11/16/16 0620 11/16/16 0620 Results 24 hrs Laboratory Tests Test 11/16/16 17:12 11/16/16 21:20 11/17/16 02:04 11/17/16 02:15 Bedside Glucose 198 156 53 L 302 H Test 11/17/16 05:46 11/17/16 05:59 11/17/16 06:17 11/17/16 07:16 Bedside Glucose 53 L 54 L 105 185 Test 11/17/16 11:57 Bedside Glucose 157 Medications Medications Current Medications Naloxone HCl (Narcan) 0.4 mg Q3M PRN IV DECREASED REPIRATORY RATE; Start at 05:00 Ondansetron HCl (Zofran Inj) 4 mg Q6H PRN IV NAUSEA AND/OR VOMITING; Start 06/08 at 05:00 Acetaminophen (Tylenol Liquid) 650 mg Q6H PRN PO PAIN LEVEL 1-3 OR FEVER; Start 10/30/16 at 05:00 Acetaminophen (Tylenol Tab) 650 mg Q6H PRN PO PAIN LEVEL 1-3 OR FEVER; Start at 05:00 Morphine Sulfate (morphine) 2 mg Q4H PRN IV PAIN LEVEL 7-10 Last administered on 11/09/16 02:08; Admin Dose 2 MG; Start 10/30/16 at 05:00 Zolpidem Tartrate (Ambien) 5 mg QHS PRN PO INSOMNIA Last administered on 21:00; Admin Dose 5 MG; Start 10/30/16 at 05:00 Docusate Sodium (Colace) 100 mg Q12H PRN PO CONSTIPATION; Start 10/30/16 at 05: 00 IV Flush (NS 10 ml) 10 ml PRN PRN IV IV PROTOCOL; Start 10/30/16 at 19:00 Acetaminophen (Tylenol Supp) 650 mg Q6H PRN [place] FEVER Last administered on 08:43; Admin Dose 650 MG; Start 10/31/16 at 09:00 Miscellaneous Information 1 ea NOTE XX ; Start 10/31/16 at 12:30 Glucose (Glutose) 15 gm Q15M PRN PO DECREASED GLUCOSE; Start 10/31/16 at 12:30 Glucose (Glutose) 22.5 gm Q15M PRN PO DECREASED GLUCOSE; Start 10/31/16 at 12: 30 Dextrose (D50w Syringe) 25 ml Q15M PRN IV DECREASED GLUCOSE; Start 10/31/16 at 12:30 Dextrose (D50w Syringe) 50 ml Q15M PRN IV DECREASED GLUCOSE Last administered on 11/17/16 02:10; Admin Dose 50 ML; Start 10/31/16 at 12:30 Glucagon (Glucagen) 1 mg Q15M PRN IM DECREASED GLUCOSE; Start 10/31/16 at 12:30 Glucose (Glutose) 15 gm Q15M PRN BUCCAL DECREASED GLUCOSE; Start 10/31/16 at 12 :30 Hydralazine HCl (Apresoline) 10 mg Q4H PRN IV SBP GREATER THAN 170 Last administered on 11/11/16 21:11; Admin Dose 10 MG; Start 10/31/16 at 23:00 Collagenase (Santyl) 1 applic DAILY TOP Last administered on 11/17/16 08:04; Admin Dose 1 APPLIC; Start 11/06/16 at 17:00 Pantoprazole (Protonix Tab) 40 mg DAILY@06 PO Last administered on 11/17/16 05 :47; Admin Dose 40 MG; Start 11/08/16 at 06:00 Diagnostic Test (Pha) (Accucheck) 1 ea 02 XX Last administered on 11/15/16 02: 12; Admin Dose 1 EA; Start 11/08/16 at 02:00 Amiodarone HCl (Cordarone) 200 mg BID PO Last administered on 11/15/16 21:40; Admin Dose 200 MG; Start 11/09/16 at 21:00 Hydralazine HCl (Apresoline) 50 mg Q8 PO Last administered on 11/17/16 05:47; Admin Dose 50 MG; Start 11/13/16 at 22:00 Nifedipine (Procardia Xl) 30 mg DAILY PO Last administered on 11/17/16 08:05; Admin Dose 30 MG; Start 11/15/16 at 09:00 Diagnostic Test (Pha) (Accu-Chek) 1 ea 02 XX ; Start 11/18/16 at 02:00 RACHEL HERNANDEZ M.D. Nov 17, 2016 15:38
--- NOTE | 2016-11-17 18:24 | PN ---
Date/Time of Note Date/Time of Note DATE: 11/17/16 TIME: 18:19 Assessment/Plan VTE Prophylaxis VTE Prophylaxis Intervention: other Lines/Catheters IV Catheter Type (from Nrsg): Saline Lock Urinary Cath still in place: Yes Reason Cath still needed: other (indicate) Assessment/Plan Chief Complaint/Hosp Course IMPRESSION: 1. Patient has massive gastrointestinal bleed.better 2. leucocytosis better 3. Metabolic acidosis and acute kidney injury.better 4. cva 5. Hypoalbuminemia. 6 thrombocytopenia better 7 uti 8 p afib 9 dm s/p hypoglycemia plan per id WAITING FOR SNF d/w son dec insulin Problems: Subjective 24 Hr Interval Summary Subjective hx not possible: other (s/p hypoglycemia) Cardiovascular: no complaints Gastrointestinal: no complaints Exam/Review of Systems Vital Signs Vitals Vital Signs Date Time Temp Pulse Resp B/P Pulse Ox O2 Delivery O2 Flow Rate FiO2 11/17/16 16:11 47 11/17/16 15:18 97.7 20 122/60 96 Intake and Output 11/16/16 11/16/16 11/17/16 15:00 23:00 07:00 Intake Total 300 ml 400 ml Output Total 200 ml 350 ml Balance 100 ml 50 ml Exam Neck: supple Respiratory: clear to auscultation Cardiovascular: regular rate and rhythm Gastrointestinal: soft Musculoskeletal: nl extremities to inspection Extremities: normal pulses Results Result Diagram: 11/16/16 0620 11/16/16 0620 Results 24 hrs Laboratory Tests Test 11/16/16 21:20 11/17/16 02:04 11/17/16 02:15 11/17/16 05:46 Bedside Glucose 156 53 L 302 H 53 L Test 11/17/16 05:59 11/17/16 06:17 11/17/16 07:16 11/17/16 11:57 Bedside Glucose 54 L 105 185 157 Medications Medications Current Medications Naloxone HCl (Narcan) 0.4 mg Q3M PRN IV DECREASED REPIRATORY RATE; Start at 05:00 Ondansetron HCl (Zofran Inj) 4 mg Q6H PRN IV NAUSEA AND/OR VOMITING; Start 06/08 at 05:00 Acetaminophen (Tylenol Liquid) 650 mg Q6H PRN PO PAIN LEVEL 1-3 OR FEVER; Start 10/30/16 at 05:00 Acetaminophen (Tylenol Tab) 650 mg Q6H PRN PO PAIN LEVEL 1-3 OR FEVER; Start at 05:00 Morphine Sulfate (morphine) 2 mg Q4H PRN IV PAIN LEVEL 7-10 Last administered on 11/09/16 02:08; Admin Dose 2 MG; Start 10/30/16 at 05:00 Zolpidem Tartrate (Ambien) 5 mg QHS PRN PO INSOMNIA Last administered on 21:00; Admin Dose 5 MG; Start 10/30/16 at 05:00 Docusate Sodium (Colace) 100 mg Q12H PRN PO CONSTIPATION; Start 10/30/16 at 05: 00 IV Flush (NS 10 ml) 10 ml PRN PRN IV IV PROTOCOL; Start 10/30/16 at 19:00 Acetaminophen (Tylenol Supp) 650 mg Q6H PRN [place] FEVER Last administered on 08:43; Admin Dose 650 MG; Start 10/31/16 at 09:00 Miscellaneous Information 1 ea NOTE XX ; Start 10/31/16 at 12:30 Glucose (Glutose) 15 gm Q15M PRN PO DECREASED GLUCOSE; Start 10/31/16 at 12:30 Glucose (Glutose) 22.5 gm Q15M PRN PO DECREASED GLUCOSE; Start 10/31/16 at 12: 30 Dextrose (D50w Syringe) 25 ml Q15M PRN IV DECREASED GLUCOSE; Start 10/31/16 at 12:30 Dextrose (D50w Syringe) 50 ml Q15M PRN IV DECREASED GLUCOSE Last administered on 11/17/16 02:10; Admin Dose 50 ML; Start 10/31/16 at 12:30 Glucagon (Glucagen) 1 mg Q15M PRN IM DECREASED GLUCOSE; Start 10/31/16 at 12:30 Glucose (Glutose) 15 gm Q15M PRN BUCCAL DECREASED GLUCOSE; Start 10/31/16 at 12 :30 Hydralazine HCl (Apresoline) 10 mg Q4H PRN IV SBP GREATER THAN 170 Last administered on 11/11/16 21:11; Admin Dose 10 MG; Start 10/31/16 at 23:00 Collagenase (Santyl) 1 applic DAILY TOP Last administered on 11/17/16 08:04; Admin Dose 1 APPLIC; Start 11/06/16 at 17:00 Pantoprazole (Protonix Tab) 40 mg DAILY@06 PO Last administered on 11/17/16 05 :47; Admin Dose 40 MG; Start 11/08/16 at 06:00 Diagnostic Test (Pha) (Accucheck) 1 ea XX Last administered on 11/15/16 02: 12; Admin Dose 1 EA; Start 11/08/16 at 02:00 Amiodarone HCl (Cordarone) 200 mg BID PO Last administered on 11/15/16 21:40; Admin Dose 200 MG; Start 11/09/16 at 21:00 Hydralazine HCl (Apresoline) 50 mg Q8 PO Last administered on 11/17/16 14:00; Admin Dose 50 MG; Start 11/13/16 at 22:00 Nifedipine (Procardia Xl) 30 mg DAILY PO Last administered on 11/17/16 08:05; Admin Dose 30 MG; Start 11/15/16 at 09:00 Diagnostic Test (Pha) (Accu-Chek) ea XX ; Start 11/18/16 at 02:00 Insulin Glargine (Lantus) 10 unit DAILY@20 SC ; Start 11/17/16 at 20:00 ABBY RAMOS MD Nov 17, 2016 18:24
[2016-11-17] MEDS: INSULIN GLARGINE [LANtus] 3 ML PEN SC SCH (20:24)
--- NOTE | 2016-11-17 22:52 | CONS ---
Date/Time of Note Date/Time of Note DATE: 11/17/16 TIME: 22:51 Assessment/Plan Assessment/Plan Additional Assessment/Plan Additional Assessment/Plan IMPRESSION: 1. Anemia. Stable 2. Gastrointestinal bleeding which clinically seems to have stopped.ht stable 3. Thrombocytopenia, corrected. 4. Urinary tract infection. 5. Hypertension. 6. Renal failure. 7. Multiple lacunar infarcts in the brain.oriented now 8. Atrial fibrillation Plan aspiration precaution continue present care Physical therapy Transfer to SNF when stable Consultation Date/Type/Reason Admit Date/Time Oct 30, 2016 at 08:00 Initial Consult Date 11/05/16 Type of Consultation: oncology/ hematology Referring Provider: ABBY RAMOS MD 24 HR Interval Summary Constitutional: improved, no complaints Exam/Review of Systems Vital Signs Vitals Vital Signs Date Time Temp Pulse Resp B/P Pulse Ox O2 Delivery O2 Flow Rate FiO2 11/17/16 20:40 54 11/17/16 20:00 98.0 17 131/61 97 Intake and Output 11/16/16 11/16/16 11/17/16 15:00 23:00 07:00 Intake Total 300 ml 400 ml Output Total 200 ml 350 ml Balance 100 ml 50 ml Exam Constitutional: alert, oriented, well developed Psych: nl mood/affect, no complaints Head: atraumatic, normocephalic Eyes: EOMI, PERRL, nl conjunctiva, nl lids, nl sclera ENMT: nl external ears & nose, nl lips & teeth, nl nasal mucosa & septum Neck: non-tender, supple Respiratory: clear to auscultation, normal air movement Cardiovascular: nl pulses, regular rate and rhythm Gastrointestinal: nl liver, spleen, non-tender, soft Musculoskeletal: nl extremities to inspection, nl gait and stance Extremities: normal pulses Neurological: [employer] II-XII intact, nl mental status, nl speech, nl strength Skin: nl turgor, No rash or lesions Lymph: nl lymph nodes Results Result Diagram: 11/16/16 0620 11/16/16 0620 Results 24 hrs Laboratory Tests Test 11/17/16 02:04 11/17/16 02:15 11/17/16 05:46 11/17/16 05:59 Bedside Glucose 53 L 302 H 53 L 54 L Test 11/17/16 06:17 11/17/16 07:16 11/17/16 11:57 11/17/16 20:19 Bedside Glucose 105 185 157 224 H Medications Medications Current Medications Naloxone HCl (Narcan) 0.4 mg Q3M PRN IV DECREASED REPIRATORY RATE; Start at 05:00 Ondansetron HCl (Zofran Inj) 4 mg Q6H PRN IV NAUSEA AND/OR VOMITING; Start 06/08 at 05:00 Acetaminophen (Tylenol Liquid) 650 mg Q6H PRN PO PAIN LEVEL 1-3 OR FEVER; Start 10/30/16 at 05:00 Acetaminophen (Tylenol Tab) 650 mg Q6H PRN PO PAIN LEVEL 1-3 OR FEVER; Start at 05:00 Morphine Sulfate (morphine) 2 mg Q4H PRN IV PAIN LEVEL 7-10 Last administered on 11/09/16 02:08; Admin Dose 2 MG; Start 10/30/16 at 05:00 Zolpidem Tartrate (Ambien) 5 mg QHS PRN PO INSOMNIA Last administered on 21:00; Admin Dose 5 MG; Start 10/30/16 at 05:00 Docusate Sodium (Colace) 100 mg Q12H PRN PO CONSTIPATION; Start 10/30/16 at 05: 00 IV Flush (NS 10 ml) 10 ml PRN PRN IV IV PROTOCOL; Start 10/30/16 at 19:00 Acetaminophen (Tylenol Supp) 650 mg Q6H PRN [place] FEVER Last administered on 08:43; Admin Dose 650 MG; Start 10/31/16 at 09:00 Miscellaneous Information 1 ea NOTE XX ; Start 10/31/16 at 12:30 Glucose (Glutose) 15 gm Q15M PRN PO DECREASED GLUCOSE; Start 10/31/16 at 12:30 Glucose (Glutose) 22.5 gm Q15M PRN PO DECREASED GLUCOSE; Start 10/31/16 at 12: 30 Dextrose (D50w Syringe) 25 ml Q15M PRN IV DECREASED GLUCOSE; Start 10/31/16 at 12:30 Dextrose (D50w Syringe) 50 ml Q15M PRN IV DECREASED GLUCOSE Last administered on 11/17/16 02:10; Admin Dose 50 ML; Start 10/31/16 at 12:30 Glucagon (Glucagen) 1 mg Q15M PRN IM DECREASED GLUCOSE; Start 10/31/16 at 12:30 Glucose (Glutose) 15 gm Q15M PRN BUCCAL DECREASED GLUCOSE; Start 10/31/16 at 12 :30 Hydralazine HCl (Apresoline) 10 mg Q4H PRN IV SBP GREATER THAN 170 Last administered on 11/11/16 21:11; Admin Dose 10 MG; Start 10/31/16 at 23:00 Collagenase (Santyl) 1 applic DAILY TOP Last administered on 11/17/16 08:04; Admin Dose 1 APPLIC; Start 11/06/16 at 17:00 Pantoprazole (Protonix Tab) 40 mg DAILY@06 PO Last administered on 11/17/16 05 :47; Admin Dose 40 MG; Start 11/08/16 at 06:00 Diagnostic Test (Pha) (Accucheck) 1 ea 02 XX Last administered on 11/15/16 02: 12; Admin Dose 1 EA; Start 11/08/16 at 02:00 Amiodarone HCl (Cordarone) 200 mg BID PO Last administered on 11/15/16 21:40; Admin Dose 200 MG; Start 11/09/16 at 21:00 Hydralazine HCl (Apresoline) 50 mg Q8 PO Last administered on 11/17/16 21:23; Admin Dose 50 MG; Start 11/13/16 at 22:00 Nifedipine (Procardia Xl) 30 mg DAILY PO Last administered on 11/17/16 08:05; Admin Dose 30 MG; Start 11/15/16 at 09:00 Diagnostic Test (Pha) (Accu-Chek) 1 ea 02 XX ; Start 11/18/16 at 02:00 Insulin Glargine (Lantus) 10 unit DAILY@20 SC Last administered on 11/17/16 20 :24; Admin Dose 10 UNIT; Start 11/17/16 at 20:00 JEFRY CERNA MD Nov 17, 2016 22:52
[2016-11-18] VITALS (14 sets, daily range): BP systolic 87–173; BP diastolic 44–79; PULSE 51–58; RESP 17–18
[2016-11-18] MEDS: ACCU-CHEK XX SCH (02:45)
[2016-11-18] MEDS: ACCUCHECK AT 2AM (Patients on SS coverage) XX SCH (02:46)
[2016-11-18] MEDS: hydrALAzine 20 MG INJ IV PRN (05:04)
[2016-11-18] MEDS: PANTOPRAZOLE (EC) 40 MG TAB PO SCH (05:22)
[2016-11-18] MEDS: INSULIN ASPART [NOVOLOG] 3 ML PEN SC SCH ×4 (07:55→20:55)
[2016-11-18] MEDS: AMIODARONE 200 MG TAB PO SCH (08:59)
[2016-11-18] MEDS: COLLAGENASE 30 GM TUBE TOP SCH (09:00)
[2016-11-18] MEDS: NIFEdipine (XL) 30 MG TAB PO SCH (09:00)
--- NOTE | 2016-11-18 14:11 | CONS ---
Date/Time of Note Date/Time of Note DATE: 11/18/16 TIME: 14:07 Assessment/Plan Assessment/Plan Chief Complaint/Hosp Course IMPRESSION: 1. Paroxysmal atrial fibrillation-in SR/SB on PO amio as tolerated given bradycardia 2. Hypertension. 3. Abnormal electrocardiogram, assess for acute coronary syndrome.-mildly positive troponin 4. Right bundle branch block pattern. 5. Cerebrovascular accident, question etiology, likely related to paroxysmal atrial fibrillation.-s/p TTE with bubble study 11/04 negative for definite PFO/ ASD 6. Encephalopathy. 7. Gastrointestinal bleed with ongoing GI evaluation-no signs of active bleeding at this time. 8. Possible urinary tract infection. 9. Renal failure. 10. Hyponatremia-resolved 11. Coagulopathy, mild. 12. Anemia. 13. Leukocytosis. 14. Bradycardia to high 40's-mainlly stable BP with some ,ow readings after being given anti-hypertensives Recc: -Tele -Continue PO amio as tolerated in attempt to maintain SR and will thus decrease top daily -Continue Procardia for now -Decrease dose of hydralazine to allow patient to better tolerate medications -Continue abx's -Ongoing Heme/GI eval -Follow hgb closely Problems: Consultation Date/Type/Reason Admit Date/Time Oct 30, 2016 at 08:00 Initial Consult Date 11/03/16 Type of Consultation: Cardiology Reason for Consultation HTN Referring Provider: ABBY RAMOS MD Exam/Review of Systems Vital Signs Vitals Vital Signs Date Time Temp Pulse Resp B/P Pulse Ox O2 Delivery O2 Flow Rate FiO2 11/18/16 12:32 54 18 93/50 11/18/16 11:24 98.6 95 Intake and Output 11/17/16 11/17/16 11/18/16 15:00 23:00 07:00 Intake Total 200 ml 300 ml Output Total 250 ml 800 ml Balance -50 ml -500 ml Exam Review of Systems: CONSTITUTIONAL: No fevers, chills. PULMONARY: No sob CARDIOVASCULAR: No chest pain/palpitations GASTROINTESTINAL: No nausea/vomiting. GENITOURINARY: No hematuria/dysuria. MUSCULOSKELETAL: No myagias/arthalgias. PSYCHIATRIC: The patient denies depression. NEUROLOGIC: No weakness Constitutional: other (sleeping) Psych: no complaints Head: normocephalic ENMT: mucosa pink and moist Neck: jvd (8 cm water), supple Respiratory: diminished breath sounds (at bases/B) Cardiovascular: regular rate and rhythm Gastrointestinal: non-tender, soft Musculoskeletal: muscle tone (normal) Extremities: edema (none) Neurological: other (No focal deficits) Results Result Diagram: 11/16/16 0620 11/16/16 0620 Results 24 hrs Laboratory Tests Test 11/17/16 20:19 11/18/16 02:05 11/18/16 08:14 11/18/16 11:43 Bedside Glucose 224 H 212 114 200 Medications Medications Current Medications Naloxone HCl (Narcan) 0.4 mg Q3M PRN IV DECREASED REPIRATORY RATE; Start at 05:00 Ondansetron HCl (Zofran Inj) 4 mg Q6H PRN IV NAUSEA AND/OR VOMITING; Start 06/08 at 05:00 Acetaminophen (Tylenol Liquid) 650 mg Q6H PRN PO PAIN LEVEL 1-3 OR FEVER; Start 10/30/16 at 05:00 Acetaminophen (Tylenol Tab) 650 mg Q6H PRN PO PAIN LEVEL 1-3 OR FEVER; Start at 05:00 Morphine Sulfate (morphine) 2 mg Q4H PRN IV PAIN LEVEL 7-10 Last administered on 11/09/16 02:08; Admin Dose 2 MG; Start 10/30/16 at 05:00 Zolpidem Tartrate (Ambien) 5 mg QHS PRN PO INSOMNIA Last administered on 21:00; Admin Dose 5 MG; Start 10/30/16 at 05:00 Docusate Sodium (Colace) 100 mg Q12H PRN PO CONSTIPATION; Start 10/30/16 at 05: 00 IV Flush (NS 10 ml) 10 ml PRN PRN IV IV PROTOCOL; Start 10/30/16 at 19:00 Acetaminophen (Tylenol Supp) 650 mg Q6H PRN [place] FEVER Last administered on 08:43; Admin Dose 650 MG; Start 10/31/16 at 09:00 Miscellaneous Information 1 ea NOTE XX ; Start 10/31/16 at 12:30 Glucose (Glutose) 15 gm Q15M PRN PO DECREASED GLUCOSE; Start 10/31/16 at 12:30 Glucose (Glutose) 22.5 gm Q15M PRN PO DECREASED GLUCOSE; Start 10/31/16 at 12: 30 Dextrose (D50w Syringe) 25 ml Q15M PRN IV DECREASED GLUCOSE; Start 10/31/16 at 12:30 Dextrose (D50w Syringe) 50 ml Q15M PRN IV DECREASED GLUCOSE Last administered on 11/17/16 02:10; Admin Dose 50 ML; Start 10/31/16 at 12:30 Glucagon (Glucagen) 1 mg Q15M PRN IM DECREASED GLUCOSE; Start 10/31/16 at 12:30 Glucose (Glutose) 15 gm Q15M PRN BUCCAL DECREASED GLUCOSE; Start 10/31/16 at 12 :30 Hydralazine HCl (Apresoline) 10 mg Q4H PRN IV SBP GREATER THAN 170 Last administered on 11/18/16 05:04; Admin Dose 10 MG; Start 10/31/16 at 23:00 Collagenase (Santyl) 1 applic DAILY TOP Last administered on 11/18/16 09:00; Admin Dose 1 APPLIC; Start 11/06/16 at 17:00 Pantoprazole (Protonix Tab) 40 mg DAILY@06 PO Last administered on 11/18/16 05 :22; Admin Dose 40 MG; Start 11/08/16 at 06:00 Diagnostic Test (Pha) (Accucheck) 1 ea XX Last administered on 11/18/16 02: 46; Admin Dose 1 EA; Start 11/08/16 at 02:00 Amiodarone HCl (Cordarone) 200 mg BID PO Last administered on 11/18/16 08:59; Admin Dose 200 MG; Start 11/09/16 at 21:00 Hydralazine HCl (Apresoline) 50 mg Q8 PO Last administered on 11/18/16 05:22; Admin Dose 50 MG; Start 11/13/16 at 22:00 Nifedipine (Procardia Xl) 30 mg DAILY PO Last administered on 11/18/16 09:00; Admin Dose 30 MG; Start 11/15/16 at 09:00 Diagnostic Test (Pha) (Accu-Chek) 1 ea 02 XX Last administered on 11/18/16 02: 45; Admin Dose 1 EA; Start 11/18/16 at 02:00 Insulin Glargine (Lantus) 10 unit DAILY@20 SC Last administered on 3/28/17at 20 :24; Admin Dose 10 UNIT; Start 11/17/16 at 20:00 LESLI SHEA Nov 18, 2016 14:11
--- NOTE | 2016-11-18 17:53 | CONS ---
Date/Time of Note Date/Time of Note DATE: 11/18/16 TIME: 17:52 Assessment/Plan Assessment/Plan Additional Assessment/Plan IMPRESSION: 1. Anemia. Stable 2. Gastrointestinal bleeding which clinically seems to have stopped.ht stable 3. Thrombocytopenia, corrected. 4. Urinary tract infection. 5. Hypertension. 6. Renal failure. 7. Multiple lacunar infarcts in the brain.oriented now 8. Atrial fibrillation Plan aspiration precaution continue present care Physical therapy monitor H&H Consultation Date/Type/Reason Admit Date/Time Oct 30, 2016 at 08:00 Initial Consult Date 11/05/16 Type of Consultation: Cardiology Referring Provider: ABBY RAMOS MD 24 HR Interval Summary Constitutional: no complaints Exam/Review of Systems Vital Signs Vitals Vital Signs Date Time Temp Pulse Resp B/P Pulse Ox O2 Delivery O2 Flow Rate FiO2 11/18/16 16:18 51 11/18/16 16:07 97.7 18 110/56 94 Intake and Output 11/17/16 11/17/16 11/18/16 15:00 23:00 07:00 Intake Total 200 ml 300 ml Output Total 250 ml 800 ml Balance -50 ml -500 ml Exam Constitutional: alert, oriented, well developed Psych: nl mood/affect, no complaints Head: atraumatic, normocephalic Eyes: EOMI, PERRL, nl conjunctiva, nl lids, nl sclera ENMT: nl external ears & nose, nl lips & teeth, nl nasal mucosa & septum Neck: non-tender, supple Respiratory: clear to auscultation, normal air movement Cardiovascular: nl pulses, regular rate and rhythm Gastrointestinal: nl liver, spleen, non-tender, soft Musculoskeletal: nl extremities to inspection, nl gait and stance Extremities: normal pulses Neurological: BID MANAGER II-XII intact, nl mental status, nl speech, nl strength Skin: nl turgor, No rash or lesions Lymph: nl lymph nodes Results Result Diagram: 11/16/16 0620 11/16/16 0620 Results 24 hrs Laboratory Tests Test 11/17/16 20:19 11/18/16 02:05 11/18/16 08:14 11/18/16 11:43 Bedside Glucose 224 H 212 114 200 Test 11/18/16 17:12 Bedside Glucose 254 H Medications Medications Current Medications Naloxone HCl (Narcan) 0.4 mg Q3M PRN IV DECREASED REPIRATORY RATE; Start at 05:00 Ondansetron HCl (Zofran Inj) 4 mg Q6H PRN IV NAUSEA AND/OR VOMITING; Start 06/08 at 05:00 Acetaminophen (Tylenol Liquid) 650 mg Q6H PRN PO PAIN LEVEL 1-3 OR FEVER; Start 10/30/16 at 05:00 Acetaminophen (Tylenol Tab) 650 mg Q6H PRN PO PAIN LEVEL 1-3 OR FEVER; Start at 05:00 Morphine Sulfate (morphine) 2 mg Q4H PRN IV PAIN LEVEL 7-10 Last administered on 11/09/16 02:08; Admin Dose 2 MG; Start 10/30/16 at 05:00 Zolpidem Tartrate (Ambien) 5 mg QHS PRN PO INSOMNIA Last administered on 21:00; Admin Dose 5 MG; Start 10/30/16 at 05:00 Docusate Sodium (Colace) 100 mg Q12H PRN PO CONSTIPATION; Start 10/30/16 at 05: 00 IV Flush (NS 10 ml) 10 ml PRN PRN IV IV PROTOCOL; Start 10/30/16 at 19:00 Acetaminophen (Tylenol Supp) 650 mg Q6H PRN [place] FEVER Last administered on 08:43; Admin Dose 650 MG; Start 10/31/16 at 09:00 Miscellaneous Information 1 ea NOTE XX ; Start 10/31/16 at 12:30 Glucose (Glutose) 15 gm Q15M PRN PO DECREASED GLUCOSE; Start 10/31/16 at 12:30 Glucose (Glutose) 22.5 gm Q15M PRN PO DECREASED GLUCOSE; Start 10/31/16 at 12: 30 Dextrose (D50w Syringe) 25 ml Q15M PRN IV DECREASED GLUCOSE; Start 10/31/16 at 12:30 Dextrose (D50w Syringe) 50 ml Q15M PRN IV DECREASED GLUCOSE Last administered on 11/17/16 02:10; Admin Dose 50 ML; Start 10/31/16 at 12:30 Glucagon (Glucagen) 1 mg Q15M PRN IM DECREASED GLUCOSE; Start 10/31/16 at 12:30 Glucose (Glutose) 15 gm Q15M PRN BUCCAL DECREASED GLUCOSE; Start 3/11/17 at 12 :30 Hydralazine HCl (Apresoline) 10 mg Q4H PRN IV SBP GREATER THAN 170 Last administered on 11/18/16 05:04; Admin Dose 10 MG; Start 10/31/16 at 23:00 Collagenase (Santyl) 1 applic DAILY TOP Last administered on 11/18/16 09:00; Admin Dose 1 APPLIC; Start 11/06/16 at 17:00 Pantoprazole (Protonix Tab) 40 mg DAILY@06 PO Last administered on 11/18/16 05 :22; Admin Dose 40 MG; Start 11/08/16 at 06:00 Diagnostic Test (Pha) (Accucheck) 1 ea 02 XX Last administered on 11/18/16 02: 46; Admin Dose 1 EA; Start 11/08/16 at 02:00 Nifedipine (Procardia Xl) 30 mg DAILY PO Last administered on 11/18/16 09:00; Admin Dose 30 MG; Start 11/15/16 at 09:00 Diagnostic Test (Pha) (Accu-Chek) 1 ea 02 XX Last administered on 11/18/16 02: 45; Admin Dose 1 EA; Start 11/18/16 at 02:00 Insulin Glargine (Lantus) 10 unit DAILY@20 SC Last administered on 11/17/16 20 :24; Admin Dose 10 UNIT; Start 11/17/16 at 20:00 Amiodarone HCl (Cordarone) 200 mg DAILY PO ; Start 11/19/16 at 09:00 Hydralazine HCl (Apresoline) 25 mg Q8 PO ; Start 11/18/16 at 22:00 JEFRY CERNA MD Nov 18, 2016 17:52
[2016-11-18] MEDS: INSULIN GLARGINE [LANtus] 3 ML PEN SC SCH (19:52)
--- NOTE | 2016-11-18 19:59 | PN ---
Date/Time of Note Date/Time of Note DATE: 11/18/16 TIME: 19:59 Assessment/Plan VTE Prophylaxis VTE Prophylaxis Intervention: other Lines/Catheters IV Catheter Type (from Nrsg): Saline Lock Urinary Cath still in place: Yes Reason Cath still needed: other (indicate) Assessment/Plan Chief Complaint/Hosp Course IMPRESSION: 1. Patient has massive gastrointestinal bleed.better 2. leucocytosis better 3. Metabolic acidosis and acute kidney injury.better 4. cva 5. Hypoalbuminemia. 6 thrombocytopenia better 7 uti 8 p afib 9 dm s/p hypoglycemia plan per id WAITING FOR SNF d/w son dec insulin Problems: Subjective 24 Hr Interval Summary Respiratory: no complaints Cardiovascular: no complaints Exam/Review of Systems Vital Signs Vitals Vital Signs Date Time Temp Pulse Resp B/P Pulse Ox O2 Delivery O2 Flow Rate FiO2 11/18/16 19:38 97.9 53 18 115/57 95 Intake and Output 11/17/16 11/17/16 11/18/16 15:00 23:00 07:00 Intake Total 200 ml 300 ml Output Total 250 ml 800 ml Balance -50 ml -500 ml Exam Respiratory: clear to auscultation Cardiovascular: regular rate and rhythm Gastrointestinal: soft Musculoskeletal: nl extremities to inspection Extremities: normal pulses Results Result Diagram: 11/16/16 0620 11/16/16 0620 Results 24 hrs Laboratory Tests Test 11/17/16 20:19 11/18/16 02:05 11/18/16 08:14 11/18/16 11:43 Bedside Glucose 224 H 212 114 200 Test 11/18/16 17:12 Bedside Glucose 254 H Medications Medications Current Medications Naloxone HCl (Narcan) 0.4 mg Q3M PRN IV DECREASED REPIRATORY RATE; Start at 05:00 Ondansetron HCl (Zofran Inj) 4 mg Q6H PRN IV NAUSEA AND/OR VOMITING; Start 06/08 at 05:00 Acetaminophen (Tylenol Liquid) 650 mg Q6H PRN PO PAIN LEVEL 1-3 OR FEVER; Start 10/30/16 at 05:00 Acetaminophen (Tylenol Tab) 650 mg Q6H PRN PO PAIN LEVEL 1-3 OR FEVER; Start at 05:00 Morphine Sulfate (morphine) 2 mg Q4H PRN IV PAIN LEVEL 7-10 Last administered on 11/09/16 02:08; Admin Dose 2 MG; Start 10/30/16 at 05:00 Zolpidem Tartrate (Ambien) 5 mg QHS PRN PO INSOMNIA Last administered on 21:00; Admin Dose 5 MG; Start 10/30/16 at 05:00 Docusate Sodium (Colace) 100 mg Q12H PRN PO CONSTIPATION; Start 10/30/16 at 05: 00 IV Flush (NS 10 ml) 10 ml PRN PRN IV IV PROTOCOL; Start 10/30/16 at 19:00 Acetaminophen (Tylenol Supp) 650 mg Q6H PRN [place] FEVER Last administered on 08:43; Admin Dose 650 MG; Start 10/31/16 at 09:00 Miscellaneous Information 1 ea NOTE XX ; Start 10/31/16 at 12:30 Glucose (Glutose) 15 gm Q15M PRN PO DECREASED GLUCOSE; Start 10/31/16 at 12:30 Glucose (Glutose) 22.5 gm Q15M PRN PO DECREASED GLUCOSE; Start 10/31/16 at 12: 30 Dextrose (D50w Syringe) 25 ml Q15M PRN IV DECREASED GLUCOSE; Start 10/31/16 at 12:30 Dextrose (D50w Syringe) 50 ml Q15M PRN IV DECREASED GLUCOSE Last administered on 11/17/16 02:10; Admin Dose 50 ML; Start 10/31/16 at 12:30 Glucagon (Glucagen) 1 mg Q15M PRN IM DECREASED GLUCOSE; Start 10/31/16 at 12:30 Glucose (Glutose) 15 gm Q15M PRN BUCCAL DECREASED GLUCOSE; Start 10/31/16 at 12 :30 Hydralazine HCl (Apresoline) 10 mg Q4H PRN IV SBP GREATER THAN 170 Last administered on 11/18/16 05:04; Admin Dose 10 MG; Start 10/31/16 at 23:00 Collagenase (Santyl) 1 applic DAILY TOP Last administered on 11/18/16 09:00; Admin Dose 1 APPLIC; Start 11/06/16 at 17:00 Pantoprazole (Protonix Tab) 40 mg DAILY@06 PO Last administered on 11/18/16 05 :22; Admin Dose 40 MG; Start 11/08/16 at 06:00 Diagnostic Test (Pha) (Accucheck) 1 ea 02 XX Last administered on 11/18/16 02: 46; Admin Dose 1 EA; Start 11/08/16 at 02:00 Nifedipine (Procardia Xl) 30 mg DAILY PO Last administered on 11/18/16 09:00; Admin Dose 30 MG; Start 11/15/16 at 09:00 Diagnostic Test (Pha) (Accu-Chek) ea XX Last administered on 11/18/16 02: 45; Admin Dose 1 EA; Start 11/18/16 at 02:00 Insulin Glargine (Lantus) 10 unit DAILY@20 SC Last administered on 11/18/16 19 :52; Admin Dose 10 UNIT; Start 11/17/16 at 20:00 Amiodarone HCl (Cordarone) 200 mg DAILY PO ; Start 11/19/16 at 09:00 Hydralazine HCl (Apresoline) 25 mg Q8 PO ; Start 11/18/16 at 22:00 ABBY RAMOS MD Nov 18, 2016 19:59
[2016-11-19] VITALS (10 sets, daily range): BP systolic 93–164; BP diastolic 52–72; PULSE 49–57; RESP 18
[2016-11-19] MEDS: ACCU-CHEK XX SCH (02:08)
[2016-11-19] MEDS: ACCUCHECK AT 2AM (Patients on SS coverage) XX SCH (02:14)
[2016-11-19] MEDS: PANTOPRAZOLE (EC) 40 MG TAB PO SCH (05:36)
[2016-11-19] MEDS: INSULIN ASPART [NOVOLOG] 3 ML PEN SC SCH ×3 (07:55→17:39)
[2016-11-19] MEDS: COLLAGENASE 30 GM TUBE TOP SCH (08:05)
[2016-11-19] MEDS: NIFEdipine (XL) 30 MG TAB PO SCH (08:06)
[2016-11-19] MEDS ORDERED: AMIODARONE 200 MG TAB PO SCH (09:00)
--- NOTE | 2016-11-19 10:26 | CONS ---
Date/Time of Note Date/Time of Note DATE: 11/19/16 TIME: 10:25 Assessment/Plan Assessment/Plan Additional Assessment/Plan Additional Assessment/Plan IMPRESSION: 1. Anemia. Stable 2. Gastrointestinal bleeding which clinically seems to have stopped.ht stable 3. Thrombocytopenia, corrected. 4. Urinary tract infection. 5. Hypertension. 6. Renal failure. 7. Multiple lacunar infarcts in the brain.oriented now 8. Atrial fibrillation Plan aspiration precaution continue present care Physical therapy monitor H&H Discussed with the stop patient is not coughing while swallowing. There is no evidence of aspiration. Patient is on pured diet Consultation Date/Type/Reason Admit Date/Time Oct 30, 2016 at 08:00 Initial Consult Date 11/05/16 Type of Consultation: Cardiology Referring Provider: ABBY RAMOS MD 24 HR Interval Summary Constitutional: improved, no complaints Exam/Review of Systems Vital Signs Vitals Vital Signs Date Time Temp Pulse Resp B/P Pulse Ox O2 Delivery O2 Flow Rate FiO2 11/19/16 08:13 52 11/19/16 07:07 98.5 18 164/72 98 Intake and Output 11/18/16 11/18/16 11/19/16 15:00 23:00 07:00 Intake Total 450 ml 200 ml Output Total 550 ml 480 ml Balance -100 ml -280 ml Exam Constitutional: alert, oriented, well developed Psych: nl mood/affect, no complaints Head: atraumatic, normocephalic Eyes: EOMI, PERRL, nl conjunctiva, nl lids, nl sclera ENMT: nl external ears & nose, nl lips & teeth, nl nasal mucosa & septum Neck: non-tender, supple Respiratory: clear to auscultation, normal air movement Cardiovascular: nl pulses, regular rate and rhythm Gastrointestinal: nl liver, spleen, non-tender, soft Musculoskeletal: nl extremities to inspection, nl gait and stance Extremities: normal pulses Neurological: TREATMENT COORDINATOR II-XII intact, nl mental status, nl speech, nl strength Skin: nl turgor, No rash or lesions Lymph: nl lymph nodes Results Result Diagram: 11/16/16 0620 11/16/16 0620 Results 24 hrs Laboratory Tests Test 11/18/16 11:43 11/18/16 17:12 11/18/16 20:52 11/19/16 02:04 Bedside Glucose 200 254 H 262 H 165 Test 11/19/16 08:03 Bedside Glucose 86 Medications Medications Current Medications Naloxone HCl (Narcan) 0.4 mg Q3M PRN IV DECREASED REPIRATORY RATE; Start at 05:00 Ondansetron HCl (Zofran Inj) 4 mg Q6H PRN IV NAUSEA AND/OR VOMITING; Start 06/08 at 05:00 Acetaminophen (Tylenol Liquid) 650 mg Q6H PRN PO PAIN LEVEL 1-3 OR FEVER; Start 10/30/16 at 05:00 Acetaminophen (Tylenol Tab) 650 mg Q6H PRN PO PAIN LEVEL 1-3 OR FEVER; Start at 05:00 Morphine Sulfate (morphine) 2 mg Q4H PRN IV PAIN LEVEL 7-10 Last administered on 11/09/16 02:08; Admin Dose 2 MG; Start 10/30/16 at 05:00 Zolpidem Tartrate (Ambien) 5 mg QHS PRN PO INSOMNIA Last administered on 21:00; Admin Dose 5 MG; Start 10/30/16 at 05:00 Docusate Sodium (Colace) 100 mg Q12H PRN PO CONSTIPATION; Start 10/30/16 at 05: 00 IV Flush (NS 10 ml) 10 ml PRN PRN IV IV PROTOCOL; Start 10/30/16 at 19:00 Acetaminophen (Tylenol Supp) 650 mg Q6H PRN [place] FEVER Last administered on 08:43; Admin Dose 650 MG; Start 10/31/16 at 09:00 Miscellaneous Information 1 ea NOTE XX ; Start 10/31/16 at 12:30 Glucose (Glutose) 15 gm Q15M PRN PO DECREASED GLUCOSE; Start 10/31/16 at 12:30 Glucose (Glutose) 22.5 gm Q15M PRN PO DECREASED GLUCOSE; Start 10/31/16 at 12: 30 Dextrose (D50w Syringe) 25 ml Q15M PRN IV DECREASED GLUCOSE; Start 10/31/16 at 12:30 Dextrose (D50w Syringe) 50 ml Q15M PRN IV DECREASED GLUCOSE Last administered on 11/17/16 02:10; Admin Dose 50 ML; Start 10/31/16 at 12:30 Glucagon (Glucagen) 1 mg Q15M PRN IM DECREASED GLUCOSE; Start 10/31/16 at 12:30 Glucose (Glutose) 15 gm Q15M PRN BUCCAL DECREASED GLUCOSE; Start 10/31/16 at 12 :30 Hydralazine HCl (Apresoline) 10 mg Q4H PRN IV SBP GREATER THAN 170 Last administered on 11/18/16 05:04; Admin Dose 10 MG; Start 10/31/16 at 23:00 Collagenase (Santyl) 1 applic DAILY TOP Last administered on 11/19/16 08:05; Admin Dose 1 APPLIC; Start 11/06/16 at 17:00 Pantoprazole (Protonix Tab) 40 mg DAILY@06 PO Last administered on 11/19/16 05 :36; Admin Dose 40 MG; Start 11/08/16 at 06:00 Diagnostic Test (Pha) (Accucheck) 1 ea 02 XX Last administered on 11/19/16 02: 14; Admin Dose 1 EA; Start 11/08/16 at 02:00 Nifedipine (Procardia Xl) 30 mg DAILY PO Last administered on 11/19/16 08:06; Admin Dose 30 MG; Start 11/15/16 at 09:00 Diagnostic Test (Pha) (Accu-Chek) 1 ea 02 XX Last administered on 11/19/16 02: 08; Admin Dose 1 EA; Start 11/18/16 at 02:00 Insulin Glargine (Lantus) 10 unit DAILY@20 SC Last administered on 11/18/16 19 :52; Admin Dose 10 UNIT; Start 11/17/16 at 20:00 Amiodarone HCl (Cordarone) 200 mg DAILY PO ; Start 11/19/16 at 09:00 Hydralazine HCl (Apresoline) 25 mg Q8 PO Last administered on 11/19/16 05:38; Admin Dose 25 MG; Start 11/18/16 at 22:00 JEFRY CERNA MD Nov 19, 2016 10:26
== END 2016-11-19 18:45 | DRG 377 ==
LOC: EEVIPCON 00:36 → E/R 00:36 → SDS 04:06 → ICU 08:00 → SDS 08:01 → ICU 16:55 → SDS 16:55 → TEL 11-06 15:00
PROVIDERS: ADMIT Internal Medicine Nephrology; ATTEND Internal Medicine Nephrology
PROC: 0DJD8ZZ Inspection of Lower Intestinal Tract, Via Natural or Artificial Opening Endoscopic (ICD-10-PCS; 2016-10-30)
PROC: 5A1955Z Respiratory Ventilation, Greater than 96 Consecutive Hours (ICD-10-PCS; 2016-10-30)
PROC: 0BH17EZ Insertion of Endotracheal Airway into Trachea, Via Natural or Artificial Opening (ICD-10-PCS; 2016-10-30)
PROC: 30243K1 Transfusion of Nonautologous Frozen Plasma into Central Vein, Percutaneous Approach (ICD-10-PCS; 2016-10-30)
PROC: 30243N1 Transfusion of Nonautologous Red Blood Cells into Central Vein, Percutaneous Approach (ICD-10-PCS; 2016-10-30)
PROC: 4A133R1 Monitoring of Arterial Saturation, Peripheral, Percutaneous Approach (ICD-10-PCS; 2016-10-30)
PROC: 02HV33Z Insertion of Infusion Device into Superior Vena Cava, Percutaneous Approach (ICD-10-PCS; 2016-10-30)
PROC: B548ZZA Ultrasonography of Superior Vena Cava, Guidance (ICD-10-PCS; 2016-10-30)
PROC: 0DB68ZX Excision of Stomach, Via Natural or Artificial Opening Endoscopic, Diagnostic (ICD-10-PCS; principal; 2016-10-30 06:00)
DX: K92.1 Melena (principal); J96.01 Acute respiratory failure with hypoxia; I63.9 Cerebral infarction, unspecified; N17.9 Acute kidney failure, unspecified; G93.41 Metabolic encephalopathy; E87.2 Acidosis; D69.6 Thrombocytopenia, unspecified; N39.0 Urinary tract infection, site not specified; D68.9 Coagulation defect, unspecified; I69.354 Hemiplegia and hemiparesis following cerebral infarction affecting left non-dominant side; E87.1 Hypo-osmolality and hyponatremia; E11.22 Type 2 diabetes mellitus with diabetic chronic kidney disease; I12.9 Hypertensive chronic kidney disease with stage 1 through stage 4 chronic kidney disease, or unspecified chronic kidney disease; N18.9 Chronic kidney disease, unspecified; E78.5 Hyperlipidemia, unspecified; E87.5 Hyperkalemia; E88.09 Other disorders of plasma-protein metabolism, not elsewhere classified; R50.9 Fever, unspecified; E83.42 Hypomagnesemia; D72.829 Elevated white blood cell count, unspecified; B96.20 Unspecified Escherichia coli [E. coli] as the cause of diseases classified elsewhere; D50.0 Iron deficiency anemia secondary to blood loss (chronic); I48.0 Paroxysmal atrial fibrillation; I45.10 Unspecified right bundle-branch block; K29.50 Unspecified chronic gastritis without bleeding; I25.10 Atherosclerotic heart disease of native coronary artery without angina pectoris; K21.9 Gastro-esophageal reflux disease without esophagitis; D47.3 Essential (hemorrhagic) thrombocythemia; Z79.82 Long term (current) use of aspirin; Z79.02 Long term (current) use of antithrombotics/antiplatelets
CPT/HCPCS: 36415; 36430; 36569; 36600; 70450; 70551; 71010; 73520; 74176; 74230; 76937; 78278; 80048; 80053; 80061; 81001; 81003; 82140; 82607; 82668; 82728; 82746; 82803; 82962; 83010; 83036; 83540; 83615; 83735; 84100; 84134; 84443; 84484; 85014; 85018; 85025; 85045; 85049; 85362; 85378; 85384; 85610; 85651; 85670; 85730; 86140; 86850; 86900; 86901; 86920; 87040; 87070; 87081; 87086; 88305; 88312; 89220; 90686; 92526; 92610; 92611; 93005; 93306; 94002; 94003; 94640; 94770; 95819; 96361; 96374; 97110; 97116; 97162; 97164; 97167; 97530; A9560; C1769; C9113; J0282; J0360; J0610; J0692; J0696; J1610; J1644; J1815; J1940; J2270; J2370; J2405; J2543; J3010; J3475; J3480; J7030; J7042; J7060; J7070; P9016; P9059

== ENCOUNTER 2016-12-29 01:00 | Inpatient (IN) | payer OTHER ==
[2016-12-29] VITALS (8 sets, daily range): BP systolic 129–197; BP diastolic 61–89; PULSE 72–84; RESP 16–18; Ht 162.6 cm; Wt 55.3 kg
[~2016-12-29] VITALS: Ht 162.6 cm; Wt 55.3 kg
[~2016-12-29 01:00] MED LIST: AMLO-147 PO; ASPI-664 PO; ATOR80TA75 PO; CHOL100062 PO; CLOP75TA27 PO; GABA300C16 PO; LORA10TA3 PO; TAMS0.4C2 PO
[2016-12-29] MEDS ORDERED: SOD CHLORIDE 0.9% 500 ML IV STA (01:16)
[2016-12-29] MEDS ORDERED: ATOR40TA68 PO (01:57)
[2016-12-29] MEDS ORDERED: [UNRECOGNIZED DRUG - CODE] RC (02:08)
[2016-12-29] MEDS ORDERED: ACET325T45 PO (02:09)
[2016-12-29 02:13] LABS: ADD SCAN DIFF NO
[2016-12-29] MEDS ORDERED: AMIO100T4 PO (02:14)
[2016-12-29] MEDS ORDERED: CRAN425C PO (02:16)
[2016-12-29] MEDS ORDERED: DOCU-159 PO (02:17)
[2016-12-29] MEDS ORDERED: IPRA3AMP INHALATION (02:18)
[2016-12-29] MEDS ORDERED: TAMS0.4C2 PO (02:18)
[2016-12-29] MEDS ORDERED: HYDR-3671 PO (02:22)
[2016-12-29 02:24] LABS: BASOPHIL # 0.1 10^3/ul (0.0-0.1); BASOPHILS % 0.6 % (0.0-2.0); EOSINOPHILS # 0.3 10^3/ul (0.0-0.5); EOSINOPHILS % 1.7 % (0.0-7.0); HEMATOCRIT 24.6 % (42.0-52.0); HEMOGLOBIN 7.9 g/dl (14.0-18.0); LYMPHOCYTES # 2.8 10^3/ul (0.8-2.9); LYMPHOCYTES % 17.6 % (15.0-51.0); MEAN CORPUSCULAR HEMOGLOBIN 28.2 pg (29.0-33.0); MEAN CORPUSCULAR HGB CONC 32.1 g/dl (32.0-37.0); MEAN CORPUSCULAR VOLUME 87.9 fl (82.0-101.0); MEAN PLATELET VOLUME 11.1 fl (7.4-10.4); MONOCYTE # 0.8 10^3/ul (0.3-0.9); MONOCYTES % 4.7 % (0.0-11.0); NEUTROPHILS % 74.8 % (39.0-77.0); PLATELET COUNT 378 10^3/UL (140-415); RED CELL DISTRIBUTION WIDTH 16.7 % (11.5-14.5)
[2016-12-29] MEDS ORDERED: MEGE40TA PO (02:26)
[2016-12-29] MEDS ORDERED: MELA3TAB51 PO (02:28)
[2016-12-29] MEDS ORDERED: PANT40TA3 PO (02:29)
[2016-12-29 02:30] LABS: PROTIME 13.2 Sec (12.2-14.2)
[2016-12-29] MEDS ORDERED: ONDA4TAB95 PO (02:30)
[2016-12-29 02:31] LABS: PARTIAL THROMBOPLASTIN TIME 34.4 Sec (25.0-35.0)
[2016-12-29] MEDS ORDERED: MULT-105 PO (02:32)
[2016-12-29 02:33] LABS: ALBUMIN 2.9 g/dl (3.3-4.9); CHLORIDE 106 mmol/L (97-110); SODIUM 135 mmol/L (135-144)
[2016-12-29 02:35] LABS: CREATININE 4.63 mg/dl (0.61-1.24)
[2016-12-29 02:35] LABS: URINE BILIRUBIN (Dip) NEGATIVE (NEGATIVE); URINE BLOOD (Dip) NEGATIVE (NEGATIVE); URINE COLOR LT. YELLOW (YELLOW); URINE GLUCOSE (Dip) NEGATIVE (NEGATIVE); URINE KETONES (Dip) NEGATIVE (NEGATIVE); URINE LEUKOCYTE ESTERASE (Dip) NEGATIVE (NEGATIVE); URINE NITRITE (Dip) NEGATIVE (NEGATIVE); URINE UROBILINOGEN (Dip) 0.2 E.U./dL (0.1-1.0)
[2016-12-29 02:36] LABS: ALANINE AMINOTRANSFERASE 31 IU/L (13-69); ALBUMIN/GLOBULIN RATIO 0.65; ALKALINE PHOSPHATASE 124 IU/L (42-121); ANION GAP 18 (8-16); ASPARTATE AMINO TRANSFERASE 29 IU/L (15-46); BLOOD UREA NITROGEN 51 mg/dl (7-20); CALCIUM 8.3 mg/dl (8.4-10.2); CARBON DIOXIDE 18 mmol/L (21-31); GLUCOSE 198 mg/dl (70-220); TOTAL PROTEIN 7.3 g/dl (6.1-8.1)
[2016-12-29] MEDS ORDERED: NOVO3I SC (02:38)
[2016-12-29 02:48] LABS: TROPONIN-I 0.049 ng/ml (0.00-0.12)
[2016-12-29 02:51] LABS: ADD UMIC YES; URINE TOTAL PROTEIN (Dip) 2+ (NEGATIVE)
[2016-12-29 02:53] LABS: URINE RBCS NONE SEEN /HPF (0)
[2016-12-29 02:57] LABS: BARBITURATES Negative (NEGATIVE); BENZODIAZEPINES Negative (NEGATIVE); CANNABINOIDS Negative (NEGATIVE); COCAINE Negative (NEGATIVE); OPIATES Negative (NEGATIVE)
[2016-12-29 02:59] LABS: ACETAMINOPHEN < 10.0 ug/ml (10.0-30.0); ETHANOL < 10.0 mg/dl; POTASSIUM 6.8 mmol/L (3.5-5.1); SALICYLATE < 1.0 mg/dl (5.0-30.0)
--- NOTE | 2016-12-29 03:06 | RADRPT ---
PROCEDURE: XR Chest. CLINICAL INDICATION: Altered Mental Status TECHNIQUE: Portable single view of the chest COMPARISON: 11/05 FINDINGS: Again seen is cardiomegaly and a calcified aorta. Slightly increased interstitial markings of the l ungs and reduced lung volumes again seen. There is slightly increased left retrocardiac opacity whi ch could be due to an area of infiltrate. No pleural effusion is seen. Degenerative change of the spine is seen. IMPRESSION: Question left lower lobe infiltrate. Otherwise stable exam. RPTAT: [facility] Physician Luther Date Time Electronically viewed and signed by Kenzie Dominique Physician on 12/29/2016 03:05 LE/
--- NOTE | 2016-12-29 03:06 | RADRPT ---
PROCEDURE: CT BRAIN WITHOUT CONTRAST CLINICAL INDICATION: 71-year-old male with altered mental status. TECHNIQUE: The study was performed utilizing [employer] VCT 64-slice CT scanner. Direct axial sections were obtained from the foramen magnum to the vertex without the use of intravenous contrast material. Sagittal and coronal reformations were obtained. Sagittal and coronal reformations were obtained. One or more the following dose reduction techniques were utilized: automated exposure cont rol, adjustment of the mA and/or kV according to patient's size or use of iterative reconstruction t echnique. The images were viewed on a PACS workstation. CTD/vol = 43.9 mGy; Total Exam DLP = 720.2 mGy-cm. COMPARISON: None. FINDINGS: There is moderate degree of diffuse cortical and central atrophy with compensatory ventricular enlar gement. There is no evidence for mass effect or midline shift. There are periventricular areas of decreased density consistent with microangiopathic ischemic changes. There is an old right fall lacu sherry infarct again visualized. There is an old lacunar infarct within the left retana radiata. There is no evidence for acute intra or extra-axial blood. Calcifications are seen within the intracrania l carotid arteries bilaterally. The bony calvarium is intact. There is mild mucosal thickening withi n the ethmoid air cells bilaterally. No air-fluid levels are noted. The mastoid air cells are with out significant soft tissue. IMPRESSION: 1. The intracranial contents are without significant interval change compared to the patient's prio r study from November 06, 2016. 2. Moderate diffuse atrophy. 3. Microangiopathic ischemic changes. 4. Old lacunar infarcts within the right thalamus and left retana radiata. 5. Vascular calcifications. 6. Mild mucosal thickening ethmoid air cells. .Hansel Moss MD, Date Time Electronically viewed and signed by .Hansel Moss MD, on 12/29/2016 03:06 .Gabriel/
[2016-12-29] MEDS ORDERED: CEFEPIME 2GM/50 ML (PMX) 50 ML IVPB STA (03:10)
[2016-12-29] MEDS ORDERED: VANCOMYCIN 1 GM (PMX) 250 ML IVPB ONE (03:30)
[2016-12-29] MEDS ORDERED: NA POLYST SULFON 15 GM/60 ML BTL PO ONE (03:30)
--- NOTE | 2016-12-29 04:41 | ERA ---
ER Documentation Chief Complaint Date/Time DATE: 12/29/16 TIME: 04:33 Chief Complaint from [facility] HPI This is a 71-year-old male sent in from [facility] for altered mental status. Patient cannot provide any relevant history. History is per EMS. Denies any fevers chills. Denies any other current issues ROS All systems reviewed and are negative except as per history of present illness. Medications Home Meds Reported Medications Insulin Aspart* (Novolog Insulin Pen*) 100 Unit/Ml Soln, 0 SC .SLIDING SCALE AC for DIABETES, EA INJECT PER SLIDING SCALE: IF 150-200=1UNIT; 201-250= 2UNITS; 251-300=3UNITS; 301-350=4UNITS; 351-400=5UNITS;BG>400=6UNITS AND CALL MD, BG<70 MAY GIVE NECTAR 8oz ORANGE JUICE IF CONSCIOUS, SC BEFORE MEALS FOR DIABETES ROTATE SITE 12/29/16 Multivitamin with Minerals (Multivitamins with Minerals) 1 Each Tablet, 1 EACH PO for SUPPLEMENT, TAB 12/29/16 Ondansetron Hcl* (Ondansetron Hcl*) 4 Mg Tablet, 4 MG PO Q8 for NAUSEA AND/OR VOMITING, TAB 12/29/16 Pantoprazole* (Protonix*) 40 Mg Tablet.dr, 40 MG PO QAM for GERD W/OUT ESOPHAGITIS, TAB 12/29/16 Melatonin (Melatin) 3 Mg Tablet, 3 MG PO QHS for IMPROVE CIRCADIAN RHYTHM, TAB 12/29/16 Megestrol Acetate* (Megace*) 40 Mg Tab, 40 MG PO BID for APPETITE STIMULANT, TAB 12/29/16 Hydralazine Hcl* (Hydralazine Hcl*) 25 Mg Tab, 25 MG PO Q8 Y for HYPERTENSION , #60 TAB TK 1 TABLET Q8 RELATED TO ESSENTIAL (PRIMARY) HYPERTENSION HOLD FOR SBP <110,HR <60 12/29/16 Tamsulosin Hcl* (Tamsulosin Hcl*) 0.4 Mg Cap.er.24h, 0.4 MG PO HS, CAP 12/29/16 Ipratropium-Albuterol (Ipratropium-Albuterol) 0.5-3 Mg/3 Ml Ampul.neb, 3 ML INHALATION Q4 for SHORTNESS OF BREATH, #30 VIAL 12/29/16 Docusate Sodium* (Docusate Sodium*) 100 Mg Capsule, 100 MG PO Q12 for CONSTIPATION, #30 CAP 12/29/16 Cranberry Extract (Cranberry) 425 Mg Capsule, 425 MG PO DAILY for UTI PROPHYLAXIS, CAP 12/29/16 Amiodarone Hcl* (Amiodarone Hcl*) 100 Mg Tablet, 100 MG PO DAILY, #30 TAB 12/29/16 Acetaminophen* (Acetaminophen*) 325 Mg Tablet, 650 MG PO Q6H, #30 TAB GIVE 2 TABS EVERY Q6H NEEDED FOR PAIN RATE 1-06/01 NTE 3GM/24 HOURS 12/29/16 Acetaminophen (Feverall) 325 Mg Supp.rect, 325 MG RC Q6H, SUPP.RECT 12/29/16 Atorvastatin* (Atorvastatin*) 40 Mg Tablet, 20 MG PO QHS for HYPERLIPIDIMIA, # 30 TAB 12/29/16 Gabapentin* (Gabapentin*) 300 Mg Capsule, 300 MG PO DAILY, #60 CAP 10/30/16 Discontinued Reported Medications Tamsulosin Hcl* (Tamsulosin Hcl*) 0.4 Mg Cap.er.24h, 0.4 MG PO DAILY, CAP 10/30/16 Loratadine* (Loratadine*) 10 Mg Tablet, 10 MG PO DAILY, #30 TAB 10/30/16 Clopidogrel Bisulfate (Clopidogrel) 75 Mg Tablet, 75 MG PO DAILY, #30 TAB 10/30/16 Cholecalciferol* (Vitamin D3*) 1,000 Unit Tablet, 1000 UNIT PO DAILY, TAB 10/30/16 Atorvastatin* (Atorvastatin*) 80 Mg Tablet, 80 MG PO QHS, #30 TAB 10/30/16 Aspirin* (Aspirin* EC) 81 Mg Tablet.dr, 81 MG PO DAILY, TAB 10/30/16 Amlodipine Besylate* (Amlodipine Besylate*) 10 Mg Tablet, 10 MG PO DAILY, #30 TAB 10/30/16 Allergies Allergies: Coded Allergies: No Known Allergy (Unverified , 12/29/16) PMhx/Soc History of Surgery: No Anesthesia Reaction: No Hx Neurological Disorder: Yes Hx Respiratory Disorders: Yes Hx Cardiac Disorders: Yes Hx Psychiatric Problems: No Hx Miscellaneous Medical Probl: Yes (a-fib, HTN, CVA, hip sx. ) Hx Alcohol Use: No Hx Substance Use: No Hx Tobacco Use: No Smoking Status: Never smoker Physical Exam Vitals Vital Signs Date Time Temp Pulse Resp B/P Pulse Ox O2 Delivery O2 Flow Rate FiO2 12/29/16 03:30 47 15 143/74 100 Nasal Cannula 2.0 12/29/16 01:59 Nasal Cannula 2 12/29/16 01:21 98.1 35 19 135/71 96 Physical Exam Const: [] Head: Atraumatic Eyes: Normal Conjunctiva ENT: Normal External Ears, Nose and Mouth. Neck: Full range of motion..~ No meningismus. Resp: Clear to auscultation bilaterally Cardio: Regular rate and rhythm, no murmurs Abd: Soft, non tender, non distended. Normal bowel sounds Skin: No petechiae or rashes Back: No midline or flank tenderness Ext: No cyanosis, or edema Neur: Awake and alert Psych: Normal Mood and Affect Result Diagram: 12/29/1612912/29/16129 Results 24 hrs Laboratory Tests Test 12/29/16 01:30 12/29/16 01:40 12/29/16 01:54 12/29/16 03:20 White Blood Count 16.010^3/ul Red Blood Count 2.8010^6/ul Hemoglobin 7.9g/dl Hematocrit 24.6% Mean Corpuscular Volume 87.9fl Mean Corpuscular Hemoglobin 28.2pg Mean Corpuscular Hemoglobin Concent 32.1g/dl Red Cell Distribution Width 16.7% Platelet Count 66379^3/UL Mean Platelet Volume 11.1fl Neutrophils % 74.8% Lymphocytes % 17.6% Monocytes % 4.7% Eosinophils % 1.7% Basophils % 0.6% Nucleated Red Blood Cells % 0.0/100WBC Neutrophils # 12.010^3/ul Lymphocytes # 2.810^3/ul Monocytes # 0.810^3/ul Eosinophils # 0.310^3/ul Basophils # 0.110^3/ul Nucleated Red Blood Cells # 0.010^3/ul Prothrombin Time 13.2Sec Prothrombin Time Ratio 1.0 INR International Normalized Ratio 1.00 Activated Partial Thromboplast Time 34.4Sec Sodium Level 135mmol/L Potassium Level 6.8mmol/L Chloride Level 106mmol/L Carbon Dioxide Level 18mmol/L Anion Gap 18 Blood Urea Nitrogen 51mg/dl Creatinine 4.63mg/dl Glucose Level 198mg/dl Calcium Level 8.3mg/dl Total Bilirubin 0.0mg/dl Direct Bilirubin 0.00mg/dl Indirect Bilirubin 0.0mg/dl Aspartate Amino Transf (AST/SGOT) 29IU/L Alanine Aminotransferase (ALT/SGPT) 31IU/L Alkaline Phosphatase 124IU/L Troponin I 0.049ng/ml Total Protein 7.3g/dl Albumin 2.9g/dl Globulin 4.40g/dl Albumin/Globulin Ratio 0.65 Salicylates Level < 1.0mg/dl Acetaminophen Level < 10.0ug/ml Ethyl Alcohol Level < 10.0mg/dl Urine Color LT. YELLOW Urine Clarity CLEAR Urine pH 6.5 Urine Specific [place] 1.015 Urine Ketones NEGATIVE Urine Nitrite NEGATIVE Urine Bilirubin NEGATIVE Urine Urobilinogen 0.2 E.U./dL Urine Leukocyte Esterase NEGATIVE Urine Microscopic RBC NONE SEEN/HPF Urine Microscopic WBC 0-2/HPF Urine Hemoglobin NEGATIVE Urine Glucose NEGATIVE% Urine Total Protein 2+ Urine Opiates Screen Negative Urine Barbiturates Negative Urine Amphetamines Screen Negative Urine Benzodiazepines Screen Negative Urine Cocaine Screen Negative Urine Cannabinoids Negative Bedside Glucose 183mg/dL Lactic Acid Level 1.1mmol/L Current Medications Medications (Trade) Dose Ordered Sig/Joan Route PRN Reason Start Time Stop Time Status Last Admin Dose Admin Sodium Chloride 500 ml @ 500 mls/hr Q1H STAT IV 12/29/16 01:16 12/29/16 02:15 DC 12/29/16 02:06 Cefepime HCl 50 ml @ 100 mls/hr ONCE STAT IVPB 12/29/16 03:10 12/29/16 03:39 DC 12/29/16 03:33 Vancomycin HCl (Vancocin) 250 ml @ 125 mls/hr ONCE ONCE IVPB 12/29/16 03:30 12/29/16 05:29 12/29/16 04:13 Sodium Polystyrene Sulfonate (Kayexalate) 60 gm ONCE ONCE PO 12/29/16 03:30 12/29/16 03:31 DC 12/29/16 03:33 Procedures/MDM EKG: Rate/Rhythm: Normal Sinus Rhythm QRS, ST, T-waves: No changes consistent w/ acute ischemia Impression: No evidence of ischemia or arrhythmia Chest X-ray 1V Interpreted by me: Soft Tissue: No acute abnormalities Bones: No acute abnormalities Mediastinum/Cardiac Silhouette/Lungs: No acute abnormalities Chest x-ray shows questionable left lower lobe pneumonia Medical assessment: Patient who comes in with left lower lobe pneumonia and hyperkalemia. Treated with Kayexalate. No EKG changes. Admitted to the telemetry. Started on broad-spectrum antibiotics post blood cultures. Critical Care: Time: 45 minutes Treatments/Evaluations: Close monitoring and treatment of unstable vital signs, cardiorespiratory, and neurologic status, while maintaining tight balance of fluid, respiratory, and cardiac interventions. Departure Diagnosis: Primary Impression: Altered level of consciousness Additional Impressions: Hyperkalemia Left lower lobe pneumonia Qualified Code: J18.1 - Pneumonia of left lower lobe due to infectious organism Condition: Serious SHELIA HARMAN December 29, 2016 04:41
[2016-12-29] MEDS ORDERED: hydrALAzine 20 MG INJ ONE (10:25)
[2016-12-29] MEDS: hydrALAzine 20 MG INJ IV PRN (10:27)
[2016-12-29] MEDS ORDERED: GLUCOSE GEL 15 GRAM TUBE PO PRN ×2 (10:30)
[2016-12-29] MEDS ORDERED: GLUCAGON 1 MG INJ IM PRN (10:30)
[2016-12-29] MEDS ORDERED: GLUCOSE GEL 15 GRAM TUBE BUCCAL PRN (10:30)
[2016-12-29] MEDS ORDERED: DEXTROSE 50% 50 ML SYRINGE IV PRN ×2 (10:30)
[2016-12-29] MEDS ORDERED: ACETAMINOPHEN 325 MG TAB PO PRN (10:30)
[2016-12-29] MEDS ORDERED: [UNRECOGNIZED DRUG - REMARK] XX SCH (11:30)
[2016-12-29] MEDS: NA POLYST SULFON 15 GM/60 ML BTL PO SCH ×3 (11:34→19:29)
[2016-12-29] MEDS: SOD CHLORIDE 0.9% 1,000 ML IV SCH (11:47)
[2016-12-29] MEDS: PANTOPRAZOLE 40 MG INJ IV SCH (11:47)
[2016-12-29] MEDS: INSULIN ASPART [NOVOLOG] 3 ML PEN SC SCH ×3 (12:00→21:00)
[2016-12-29] MEDS: ALBUTEROL/IPRATROPIUM (NEB) 3 ML AMP HHN SCH ×3 (12:34→21:12)
[2016-12-29] MEDS: GABAPENTIN 300 MG CAP PO SCH (12:52)
[2016-12-29] MEDS: ACETAMINOPHEN 325 MG TAB PO SCH ×3 (12:52→22:24)
[2016-12-29] MEDS: DOCUSATE SODIUM 100 MG CAP PO SCH ×2 (12:52→21:00)
[2016-12-29] MEDS: MEGESTROL 40 MG TAB PO SCH ×2 (12:53→21:06)
[2016-12-29] MEDS: AMIODARONE 200 MG TAB PO SCH (12:54)
[2016-12-29] MEDS: ONDANSETRON 4 MG TAB PO SCH ×2 (15:31→21:05)
[2016-12-29] MEDS ORDERED: ATORVASTATIN 40 MG TAB PO SCH (21:00)
[2016-12-29] MEDS: TAMSULOSIN (SR) 0.4 MG CAP PO SCH (21:05)
[2016-12-29] MEDS: ATORVASTATIN 20 MG TAB PO SCH (21:06)
--- NOTE | 2016-12-29 21:06 | CONS ---
Date/Time of Note Date/Time of Note DATE: 12/29/16 TIME: 21:04 Assessment/Plan Assessment/Plan Chief Complaint/Hosp Course 135756 consult a/p akiw ckd hyperkalemia pneumonia dm hx gi bleed cva plan per order Problems: Consultation Date/Type/Reason Admit Date/Time December 29, 2016 at 04:03 Initial Consult Date Type of Consultation: renal 24 HR Interval Summary Subjective hx not possible: pt non-verbal Exam/Review of Systems Vital Signs Vitals Vital Signs Date Time Temp Pulse Resp B/P Pulse Ox O2 Delivery O2 Flow Rate FiO2 12/29/16 20:00 98.1 80 16 129/61 98 12/29/16 12:37 2.0 12/29/16 12:36 Nasal Cannula Exam Respiratory: diminished breath sounds Cardiovascular: regular rate and rhythm Gastrointestinal: bowel sounds, soft Musculoskeletal: nl extremities to inspection Extremities: normal pulses Results Result Diagram: 12/29/16 0130 12/29/16 1720 Results 24 hrs Laboratory Tests Test 12/29/16 01:30 12/29/16 01:40 12/29/16 01:54 12/29/16 03:20 White Blood Count 16.0 #H Red Blood Count 2.80 L Hemoglobin 7.9 L Hematocrit 24.6 L Mean Corpuscular Volume 87.9 Mean Corpuscular Hemoglobin 28.2 L Mean Corpuscular Hemoglobin Concent 32.1 Red Cell Distribution Width 16.7 #H Platelet Count 378 Mean Platelet Volume 11.1 H Neutrophils % 74.8 Lymphocytes % 17.6 Monocytes % 4.7 Eosinophils % 1.7 Basophils % 0.6 Nucleated Red Blood Cells % 0.0 Neutrophils # 12.0 H Lymphocytes # 2.8 Monocytes # 0.8 Eosinophils # 0.3 Basophils # 0.1 Nucleated Red Blood Cells # 0.0 Prothrombin Time 13.2 Prothrombin Time Ratio 1.0 INR International Normalized Ratio 1.00 Activated Partial Thromboplast Time 34.4 Sodium Level 135 Potassium Level 6.8 *H Chloride Level 106 Carbon Dioxide Level 18 L Anion Gap 18 H Blood Urea Nitrogen 51 H Creatinine 4.63 H Glucose Level 198 Calcium Level 8.3 L Total Bilirubin 0.0 L Direct Bilirubin 0.00 Indirect Bilirubin 0.0 Aspartate Amino Transf (AST/SGOT) 29 Alanine Aminotransferase (ALT/SGPT) 31 Alkaline Phosphatase 124 H Troponin I 0.049 Total Protein 7.3 Albumin 2.9 L Globulin 4.40 H Albumin/Globulin Ratio 0.65 Salicylates Level < 1.0 L Acetaminophen Level < 10.0 L Ethyl Alcohol Level < 10.0 Urine Color LT. YELLOW Urine Clarity CLEAR Urine pH 6.5 Urine Specific [place] 1.015 Urine Ketones NEGATIVE Urine Nitrite NEGATIVE Urine Bilirubin NEGATIVE Urine Urobilinogen 0.2 E.U./dL Urine Leukocyte Esterase NEGATIVE Urine Microscopic RBC NONE SEEN Urine Microscopic WBC 0-2 Urine Hemoglobin NEGATIVE Urine Glucose NEGATIVE Urine Total Protein 2+ H Urine Opiates Screen Negative Urine Barbiturates Negative Urine Amphetamines Screen Negative Urine Benzodiazepines Screen Negative Urine Cocaine Screen Negative Urine Cannabinoids Negative Bedside Glucose 183 Lactic Acid Level 1.1 Test 12/29/16 06:56 12/29/16 08:11 12/29/16 10:08 12/29/16 12:22 Bedside Glucose 127 124 Lactic Acid Level 1.2 1.0 B-Type Natriuretic Peptide 21544 H Potassium Level 6.1 *H Test 12/29/16 12:46 12/29/16 17:16 12/29/16 17:20 12/29/16 20:20 Bedside Glucose 115 142 144 Potassium Level 4.3 Medications Medications Current Medications Pantoprazole (Protonix Iv) 40 mg DAILY@06 IV Last administered on 12/29/16t 11: 47; Admin Dose 40 MG; Start 12/29/16 at 10:30 Acetaminophen (Tylenol Tab) 650 mg Q6H PRN PO PAIN AND OR ELEVATED TEMP; Start 12/29/16 at 10:30 Diagnostic Test (Pha) (Accu-Chek) 1 ea 02 XX ; Start 12/30/16 at 02:00 Miscellaneous Information 1 ea NOTE XX ; Start 12/29/16 at 10:30 Glucose (Glutose) 15 gm Q15M PRN PO DECREASED GLUCOSE; Start 12/29/16 at 10:30 Glucose (Glutose) 22.5 gm Q15M PRN PO DECREASED GLUCOSE; Start 12/29/16 at 10:30 Dextrose (D50w Syringe) 25 ml Q15M PRN IV DECREASED GLUCOSE; Start 12/29/16 at 10:30 Dextrose (D50w Syringe) 50 ml Q15M PRN IV DECREASED GLUCOSE; Start 12/29/16 at 10:30 Glucagon (Glucagen) 1 mg Q15M PRN IM DECREASED GLUCOSE; Start 12/29/16 at 10:30 Glucose (Glutose) 15 gm Q15M PRN BUCCAL DECREASED GLUCOSE; Start 12/29/16 at 10: 30 Hydralazine HCl (Apresoline) 10 mg Q6H PRN IV sbp greater than 165 Last administered on 12/29/16 10:27; Admin Dose 10 MG; Start 12/29/16 at 10:30 Acetaminophen (Tylenol Tab) 650 mg Q6H PO Last administered on 12/29/16 17:46; Admin Dose 650 MG; Start 12/29/16 at 11:00 Amiodarone HCl (Cordarone) 100 mg DAILY PO Last administered on 12/29/16 12:54 ; Admin Dose 100 MG; Start 12/29/16 at 12:00 Docusate Sodium (Colace) 100 mg Q12 PO Last administered on 12/29/16 12:52; Admin Dose 100 MG; Start 12/29/16 at 12:00 Gabapentin (Neurontin) 300 mg DAILY PO Last administered on 12/29/16 12:52; Admin Dose 300 MG; Start 12/29/16 at 12:00 Megestrol Acetate (Megace) 40 mg BID PO Last administered on 12/29/16 12:53; Admin Dose 40 MG; Start 12/29/16 at 12:00 Ondansetron HCl (Zofran Tab) 4 mg Q8 PO Last administered on 12/29/16 15:31; Admin Dose 4 MG; Start 12/29/16 at 14:00 Pantoprazole (Protonix Tab) 40 mg QAM PO ; Start 12/30/16 at 09:00 Tamsulosin HCl (Flomax) 0.4 mg HS PO ; Start 12/29/16 at 21:00 Atorvastatin Calcium 20 mg 20 mg DAILY@21 PO ; Start 12/29/16 at 21:00 Sodium Chloride (NS) 1,000 ml @ 40 mls/hr Q24H IV Last administered on 11:47; Admin Dose 50 MLS/HR; Start 12/29/16 at 11:30 Hydralazine HCl (Apresoline) 25 mg Q8 PO Last administered on 12/29/16 15:32; Admin Dose 25 MG; Start 12/29/16 at 14:13 ABBY RAMOS MD December 29, 2016 21:06
[2016-12-29] MEDS: CEFTRIAXONE 1 GM/50 ML (PMX) 50 ML IVPB SCH (22:24)
--- NOTE | 2016-12-29 22:54 | HP ---
DATE OF ADMISSION: 12/29/2016 CHIEF COMPLAINT: Altered mental status. HISTORY OF PRESENT ILLNESS: The patient is a 71-year-old gentleman with extensive medical history i ncluding paroxysmal atrial fibrillation, hypertension, diabetes, history of stroke with lower extrem ity weakness, history of GI bleed and chronic kidney disease. The patient was recuperating at [facility] and noted to have altered mental status. The patient also noted to have very low appetite, was actually on pureed diet at [facility]. On evalua tion in the emergency room, patient noted to have hyperkalemia with potassium being 6.8 on admission . The patient was given Kayexalate. The patient underwent brain CT. However, it revealed no intra cranial ____ without significant interval change compared to patient's prior study in 10/2016. The patient showed old lacunar infarcts within the right thalamus and left retana radiata. The patient underwent chest x-ray which revealed question left lower lobe infiltrate, otherwise stable exam. Th e patient was started on vancomycin and cefepime for possible healthcare-acquired pneumonia, and pat ient is admitted for further evaluation and management to the telemetry floor. The patient also had elevated white blood cells of 16,000 and anemia with hemoglobin of 7.9. The patient is a poor hist orian, and most of the history was obtained from medical records and talking to nursing staff. PAST MEDICAL HISTORY: Per HPI. PAST SURGICAL HISTORY: Status post hip surgery. FAMILY HISTORY: Noncontributory. SOCIAL HISTORY: The patient is a resident of [facility]. There is no recent tobacco, alcohol or drug use. ALLERGIES: NO KNOWN ALLERGIES. MEDICATIONS ON ADMISSION: Include: 1. NovoLog per sliding scale. 2. Multivitamin. 3. Zofran p.r.n. 4. Protonix. 5. Megace. 6. Hydralazine. 7. Tamsulosin. 8. Colace. 9. Cranberry extract. 10. Amiodarone. 11. Tylenol. 12. Atorvastatin. 13. Gabapentin. REVIEW OF SYSTEMS: Unable to obtain due to patient's condition. There is no reported nausea, vomit ing, diarrhea. No reported fever and chills. PHYSICAL ASSESSMENT: GENERAL: Well-developed, cachectic, elderly fragile gentleman, currently is awake, alert to name. VITAL SIGNS: Temperature is 98.2, pulse is 74, blood pressure is 139/65, respiratory rate 18, oxyge n saturation 100% on 2 L nasal cannula. HEENT: Head is atraumatic, normocephalic. Pupils equal and round, reactive to light and accommodat ion. Oral mucosa is pink, moist. NECK: Supple. No cervical lymphadenopathy, no thyromegaly. CHEST: Lung sounds clear bilaterally, slightly diminished at the bases. There are no rhonchi, whee zes, rales noted. CARDIOVASCULAR: Normal S1, S2. No murmurs, clicks, rubs noted. ABDOMEN: Flat, soft, nondistended, nontender. Bowel sounds present. There is no guarding, no rebo und tenderness. EXTREMITIES: There is no edema, clubbing, cyanosis. Pulses equal bilaterally 2+. SKIN: The patient has a sacral small stage II ulcer. No rash, petechiae noted. NEUROLOGICAL: The patient is awake, alert to name and situation, otherwise confused. The patient w ith history of bilateral lower extremity weakness, however was able to ambulate using walker at [facility]. LABORATORY DATA ON ADMISSION: CBC: White blood cells 16.0, hemoglobin 7.9, hematocrit 24.6, platel ets 378. Chemistry: Sodium is 135, potassium 6.8 ____ chloride 106, carbon dioxide 18, anion gap 1 8, BUN is 51, creatinine 4.63, glucose 198, AST is 29, ALT is 31, alkaline phosphatase 124. Troponi n 0.049. Albumin is 2.9. PT is 13.2, INR is 1, APTT is 34.4. Urinalysis was negative nitrite and negative leukocyte esterase. ASSESSMENT AND PLAN: 1. Altered level of consciousness, most likely secondary to electrolyte imbalances secondary to met abolic encephalopathy. 2. Possible healthcare-acquired pneumonia. Will continue patient on cefepime and vancomycin. 3. Systemic inflammatory response syndrome secondary to pneumonia. 4. Diastolic congestive heart failure. 5. Chronic kidney disease. 6. Hyperkalemia. 7. Anemia. 8. Severe protein calorie malnutrition as evidenced by low albumin of 2.9. 9. History of cerebrovascular accident. 10. Hypertension. 11. History of paroxysmal atrial fibrillation. 12. Diabetes mellitus. Going to monitor patient on telemetry floor. Dr. Cheema will be following patient in nephrology cons ultation. Continue IV fluids. Continue patient's home medication. Will obtain swallow evaluation. Continue NovoLog per mild algorithm sliding scale. Monitor patient on telemetry floor. Monitor e lectrolytes and CBC. Will continue sequential compression device for deep venous thrombosis prophyl axis and Protonix for peptic ulcer disease prophylaxis. Further recommendations based on clinical course. Plan of care discussed with Dr. Javed. Dictated By: GEOVANY IBARRA CAREER LAW CLERK for KE JAVED MD SR/NTS Conf#: [id number] DID#: [id number]
[2016-12-30] VITALS (12 sets, daily range): BP systolic 125–166; BP diastolic 60–108; PULSE 77–91; RESP 17–20
[2016-12-30] MEDS: ALBUTEROL/IPRATROPIUM (NEB) 3 ML AMP HHN SCH ×6 (01:16→21:15)
[2016-12-30] MEDS: ACCU-CHEK XX SCH (02:00)
--- NOTE | 2016-12-30 02:55 | CONS ---
DATE OF ADMISSION: 12/29/2016 DATE OF CONSULTATION: NEPHROLOGY CONSULTATION HISTORY OF PRESENT ILLNESS: Thank you, Dr. Patel, for kindly asking me to see this patient in nephrology consultation. The patient is a 71-year-old male who was recently discharged from this hospital [facility] shelter with a diagnosis of a massive upper GI bleed, status post upper endoscopy, colonoscopy, leukocytosis, metabolic acidosis, acute kidney injury with CKD, acute CVA, thrombocytopenia, UTI, paroxysmal atrial fibrillation, diabetes mellitus, status post hypoglycemia. The patient now presents to this hospital with electrolyte imbalance. Blood pressure 129/61. The patient, himself, is unable to give a detailed history, seems to be comfortable. The patient noted to have blood pressure 142/74 and in the ER, WBC is 16, hematocrit 24.6, platelet count 378, sodium 135, potassium 6.8, BUN 51, creatinine 4.63, glucose 198 and patient received kayexalate, vancomycin, cefepime and sodium chloride, received normal saline in the ER and transferred to the floor for further management. PAST MEDICAL HISTORY: Briefly, it is positive for GI bleed, CVA. Other history includes, patient has metabolic acidosis, history of CVA, thrombocytopenia, history of UTI, paroxysmal atrial fibrillation, diabetes mellitus. ALLERGY HISTORY: NEGATIVE. FAMILY HISTORY: Noncontributory. SOCIAL HISTORY: Negative at this point. MEDICATION HISTORY: Listed as medications, the patient at home is on: 1. Tylenol. 2. Albuterol. 3. Atrovent. 4. Amiodarone. 5. Lipitor. 6. Cranberry extract. 7. Docusate sodium. 8. Gabapentin. 9. Hydralazine. 10. Insulin. 11. Megace. 12. Melatonin. 13. Multiple vitamin. 14. Zofran. 15. Protonix. 16. Flomax. Right now, patient is on: 1. DuoNeb. 2. Amiodarone. 3. Lipitor. 4. The patient is on gabapentin. 5. Hydralazine. 6. Insulin. 7. Protonix. 8. Flomax. REVIEW OF SYSTEMS: Limited. GENERAL: The patient is awake, alert, comfortable, not in any acute respiratory distress. VITAL SIGNS: Pulse 74, blood pressure 139/65. HEENT: Head is atraumatic, normocephalic. Pupils equal, reactive to light. NECK: Supple. No JVD. LUNGS: Clear. CARDIOVASCULAR: S1, S2 normal. ABDOMEN: Soft, nontender. Bowel sounds positive . EXTREMITIES: There is no cyanosis, clubbing or edema. CENTRAL NERVOUS SYSTEM: The patient is awake, alert with generalized weakness noted. Patient moving upper and lower extremities by himself. LABORATORY DATA: Patient's WBC 16, hematocrit 24.6. Patient's potassium as mentioned above. The patient's CT of the brain shows intracranial contents are without significant interval change compared to the patient's prior study, moderate diffuse atrophy, microangiopathic ischemic changes, old lacunar infarction within the right thalamus and left retana radiata, vascular calcification, mild mucosal thickening of ethmoid air cells. IMPRESSION: 1. Patient has [id number]-cvmbfam kidney disease. 2. Hyperkalemia. 3. Hypertension. 4. Diabetes mellitus. 5. Uremia. 6. Metabolic acidosis. 7. Leukocytosis. 8. Systemic inflammatory response syndrome. 9. The patient has incomplete database. 10. History of cerebrovascular accident. 11. History of gastrointestinal bleed. 12. History of pneumonia. PLAN: At this point, is to continue home medication, gentle IV fluid, kayexalate p.r.n. The patient will benefit from antibiotics. The patient's laboratory data will be monitored. The patient had a workup done for the kidney disease in the past which will not be repeated. Orders were done. Thank you, Dr. Patel, for kindly asking me to see this patient in nephrology consultation. Dictated By: ABBY RAMOS MD BS/NTS Conf#: [id number] DID#: [id number] CC: KE PATEL MD;*EndCC* MTDD
[2016-12-30] MEDS: PANTOPRAZOLE 40 MG INJ IV SCH (05:25)
[2016-12-30] MEDS: ONDANSETRON 4 MG TAB PO SCH ×3 (05:26→22:00)
[2016-12-30] MEDS: ACETAMINOPHEN 325 MG TAB PO SCH ×4 (05:26→22:01)
[2016-12-30 07:35] LABS: ADD SCAN DIFF NO
[2016-12-30 07:44] LABS: BASOPHIL # 0.1 10^3/ul (0.0-0.1); BASOPHILS % 0.8 % (0.0-2.0); EOSINOPHILS # 0.7 10^3/ul (0.0-0.5); EOSINOPHILS % 4.6 % (0.0-7.0); HEMATOCRIT 24.2 % (42.0-52.0); HEMOGLOBIN 7.6 g/dl (14.0-18.0); LYMPHOCYTES # 1.6 10^3/ul (0.8-2.9); LYMPHOCYTES % 11.3 % (15.0-51.0); MEAN CORPUSCULAR HEMOGLOBIN 27.9 pg (29.0-33.0); MEAN CORPUSCULAR HGB CONC 31.4 g/dl (32.0-37.0); MEAN PLATELET VOLUME 10.2 fl (7.4-10.4); MONOCYTE # 0.8 10^3/ul (0.3-0.9); MONOCYTES % 5.8 % (0.0-11.0); NEUTROPHILS % 76.9 % (39.0-77.0); PLATELET COUNT 369 10^3/UL (140-415); RED BLOOD COUNT 2.72 10^6/ul (4.70-6.10); RED CELL DISTRIBUTION WIDTH 16.7 % (11.5-14.5); WHITE BLOOD COUNT 14.2 10^3/ul (4.8-10.8)
[2016-12-30 07:56] LABS: ALBUMIN 2.8 g/dl (3.3-4.9)
[2016-12-30 07:57] LABS: POTASSIUM 4.1 mmol/L (3.5-5.1)
[2016-12-30 07:59] LABS: BILIRUBIN,INDIRECT 0.1 mg/dl (0-1.1); BILIRUBIN,TOTAL 0.1 mg/dl (0.2-1.3); CREATININE 3.32 mg/dl (0.61-1.24)
[2016-12-30 08:00] LABS: CREATININE 3.17 mg/dl (0.61-1.24); POTASSIUM 4.4 mmol/L (3.5-5.1)
[2016-12-30 08:00] LABS: ALBUMIN/GLOBULIN RATIO 0.66; CALCIUM 7.8 mg/dl (8.4-10.2)
[2016-12-30] MEDS: INSULIN ASPART [NOVOLOG] 3 ML PEN SC SCH ×4 (08:00→22:05)
[2016-12-30] MEDS ORDERED: PANTOPRAZOLE (EC) 40 MG TAB PO SCH (09:00)
[2016-12-30] MEDS: AMIODARONE 200 MG TAB PO SCH (09:33)
[2016-12-30] MEDS: MEGESTROL 40 MG TAB PO SCH ×2 (09:33→22:01)
[2016-12-30] MEDS: DOCUSATE SODIUM 100 MG CAP PO SCH ×2 (09:33→21:00)
[2016-12-30] MEDS: GABAPENTIN 300 MG CAP PO SCH (09:34)
[2016-12-30] MEDS: SOD CHLORIDE 0.9% 1,000 ML IV SCH (11:54)
--- NOTE | 2016-12-30 15:48 | CONS ---
DATE OF ADMISSION: 12/29/2016 DATE OF CONSULTATION: 12/30/2016 TYPE OF CONSULTATION: Gastroenterology. REFERRING PHYSICIAN: KE PATEL MD. HISTORY OF PRESENT ILLNESS: The patient is a 71-year-old male with a history of diabetes mellitus, legally blind with deafness, paroxysmal atrial fibrillation, hypertension, history of stroke, GI ble eding in the past and chronic kidney disease. He is a resident of [facility] and they found change in his mental status with left-sided facial weakness so they sent the patient to the emergency room. In the ER, the patient was evaluated. CT of the head was done which was negati ve. Patient was admitted for further management. The patient's appetite has been extremely poor. He is also aspirating on thin liquids and he came with a diagnosis of aspiration pneumonia. PAST MEDICAL HISTORY: As described. PAST SURGICAL HISTORY: Status post hip surgery. FAMILY HISTORY: Nothing contributory. SOCIAL HISTORY: The patient is a resident of [facility]. MEDICATIONS: All reviewed. PHYSICAL EXAMINATION GENERAL: Thin built, not in distress. VITAL SIGNS: Stable. HEENT: Unremarkable. NECK: Supple, no thyromegaly, no lymphadenopathy. CARDIOVASCULAR: No murmur, gallop or click. LUNGS: Clear. ABDOMEN: Benign. EXTREMITIES: No edema. CENTRAL NERVOUS SYSTEM: Grossly within normal limits. LABORATORY DATA: Hematocrit is 24, WBC is 14,000. BUN is 34, creatinine is 3.17. Liver function t ests all within normal limits. INR is 1. IMPRESSION: 1. Dysphagia. 2. Prerenal azotemia. 3. History of hypertension. 4. Cerebrovascular accident. 5. Chronic kidney disease. 6. Cachexia and malnutrition. 7. Diabetes mellitus. 8. Paroxysmal atrial fibrillation. PLAN: Discussed with the son and nurse practitioner and they are all in agreement for the placement of G-tube. I discussed with Dr. Patel if he is in agreement and we will proceed with G-tube. Dictated By: JEFRY CERNA MD PJ/NTS Conf#: [id number] DID#: [id number] CC: KE PATEL MD;*EndCC*
--- NOTE | 2016-12-30 17:36 | PN ---
Date/Time of Note Date/Time of Note DATE: 12/30/16 TIME: 17:31 Assessment/Plan VTE Prophylaxis VTE Prophylaxis Intervention: SCD's Lines/Catheters IV Catheter Type (from [facility]): Peripheral IV Urinary Cath still in place: Yes Reason Cath still needed: urinary retention Assessment/Plan Chief Complaint/Hosp Course ASSESSMENT AND PLAN: 1. Altered level of consciousness, most likely secondary to electrolyte imbalances secondary to metabolic encephalopathy. 2. Possible healthcare-acquired pneumonia. Continue patient on cefepime and vancomycin. 3. Systemic inflammatory response syndrome secondary to pneumonia. 4. Diastolic congestive heart failure. 5. Chronic kidney disease. 6. Hyperkalemia., Resolved. 7. Anemia. We will transfuse 2 units of packed red blood cells. 8. Severe protein calorie malnutrition as evidenced by low albumin of 2.9. Dr. Cabral is following in gastroenterology consultation. Plan for placing G- tube tomorrow. 9. History of cerebrovascular accident. 10. Hypertension. 11. History of paroxysmal atrial fibrillation. 12. Diabetes mellitus. Continue NovoLog per mild algorithm sliding scale. Further recommendations based on clinical course. Plan of care discussed with Dr. Patel. Problems: Subjective 24 Hr Interval Summary Free Text/Dictation Hemoglobin 7.6 we will transfuse 2 units of packed red blood cells, patient is awake alert to name. Exam/Review of Systems Vital Signs Vitals Vital Signs Date Time Temp Pulse Resp B/P Pulse Ox O2 Delivery O2 Flow Rate FiO2 12/30/16 16:36 98 2.0 12/30/16 16:34 81 18 Nasal Cannula 12/30/16 15:43 99.8 147/68 Intake and Output 12/29/16 12/29/16 12/30/16 15:00 23:00 07:00 Intake Total 300 ml 400 ml Output Total 500 ml 1500 ml 750 ml Balance -500 ml -1200 ml -350 ml Exam GENERAL: Well-developed, cachectic, elderly fragile gentleman, currently is awake, alert to name. HEENT: Head is atraumatic, normocephalic. Pupils equal and round, reactive to light and accommodation. Oral mucosa is pink, moist. NECK: Supple. No cervical lymphadenopathy, no thyromegaly. CHEST: Lung sounds clear bilaterally, slightly diminished at the bases. There are no rhonchi, wheezes, rales noted. CARDIOVASCULAR: Normal S1, S2. No murmurs, clicks, rubs noted. ABDOMEN: Flat, soft, nondistended, nontender. Bowel sounds present. There is no guarding, no rebound tenderness. EXTREMITIES: There is no edema, clubbing, cyanosis. Pulses equal bilaterally 2 +. SKIN: The patient has a sacral small stage II ulcer. No rash, petechiae noted. NEUROLOGICAL: The patient is awake, alert to name and situation, otherwise confused. The patient with history of bilateral lower extremity weakness, however was able to ambulate using walker at long term facility. Results Result Diagram: 12/30/16 0700 12/30/16 0710 Results 24 hrs Laboratory Tests Test 12/29/16 20:20 12/30/16 07:00 12/30/16 07:10 12/30/16 08:14 Bedside Glucose 144 140 White Blood Count 14.2 H Red Blood Count 2.72 L Hemoglobin 7.6 L Hematocrit 24.2 L Mean Corpuscular Volume 89.0 Mean Corpuscular Hemoglobin 27.9 L Mean Corpuscular Hemoglobin Concent 31.4 L Red Cell Distribution Width 16.7 H Platelet Count 369 Mean Platelet Volume 10.2 Neutrophils % 76.9 Lymphocytes % 11.3 L Monocytes % 5.8 Eosinophils % 4.6 Basophils % 0.8 Nucleated Red Blood Cells % 0.0 Neutrophils # 11.0 H Lymphocytes # 1.6 Monocytes # 0.8 Eosinophils # 0.7 H Basophils # 0.1 Nucleated Red Blood Cells # 0.0 Sodium Level 141 140 Potassium Level 4.1 4.4 Chloride Level 109 112 H Carbon Dioxide Level 19 L 20 L Anion Gap 17 H 12 Blood Urea Nitrogen 35 #H 34 H Creatinine 3.32 #H 3.17 H Glucose Level 105 # 102 Calcium Level 7.8 L 8.0 L Total Bilirubin 0.1 L Direct Bilirubin 0.00 Indirect Bilirubin 0.1 Aspartate Amino Transf (AST/SGOT) 29 Alanine Aminotransferase (ALT/SGPT) 32 Alkaline Phosphatase 108 Total Protein 7.0 Albumin 2.8 L Globulin 4.20 H Albumin/Globulin Ratio 0.66 Test 12/30/16 11:52 12/30/16 17:18 Bedside Glucose 267 H 184 Medications Medications Current Medications Acetaminophen (Tylenol Tab) 650 mg Q6H PRN PO PAIN AND OR ELEVATED TEMP; Start 12/29/16 at 10:30; Status Future Hold Diagnostic Test (Pha) (Accu-Chek) 1 ea 02 XX ; Start 12/30/16 at 02:00 Miscellaneous Information 1 ea NOTE XX ; Start 12/29/16 at 10:30 Glucose (Glutose) 15 gm Q15M PRN PO DECREASED GLUCOSE; Start 12/29/16 at 10:30 Glucose (Glutose) 22.5 gm Q15M PRN PO DECREASED GLUCOSE; Start 12/29/16 at 10:30 Dextrose (D50w Syringe) 25 ml Q15M PRN IV DECREASED GLUCOSE; Start 12/29/16 at 10:30 Dextrose (D50w Syringe) 50 ml Q15M PRN IV DECREASED GLUCOSE; Start 12/29/16 at 10:30 Glucagon (Glucagen) 1 mg Q15M PRN IM DECREASED GLUCOSE; Start 12/29/16 at 10:30 Glucose (Glutose) 15 gm Q15M PRN BUCCAL DECREASED GLUCOSE; Start 12/29/16 at 10: 30 Hydralazine HCl (Apresoline) 10 mg Q6H PRN IV sbp greater than 165 Last administered on 12/29/16 10:27; Admin Dose 10 MG; Start 12/29/16 at 10:30 Acetaminophen (Tylenol Tab) 650 mg Q6H PO Last administered on 12/30/16 17:20 ; Admin Dose 650 MG; Start 12/29/16 at 11:00 Amiodarone HCl (Cordarone) 100 mg DAILY PO Last administered on 12/30/16 09:33 ; Admin Dose 100 MG; Start 12/29/16 at 12:00 Docusate Sodium (Colace) 100 mg Q12 PO Last administered on 12/30/16 09:33; Admin Dose 100 MG; Start 12/29/16 at 12:00 Gabapentin (Neurontin) 300 mg DAILY PO Last administered on 12/30/16 09:34; Admin Dose 300 MG; Start 12/29/16 at 12:00 Megestrol Acetate (Megace) 40 mg BID PO Last administered on 12/30/16 09:33; Admin Dose 40 MG; Start 12/29/16 at 12:00 Ondansetron HCl (Zofran Tab) 4 mg Q8 PO Last administered on 12/30/16 15:00; Admin Dose 4 MG; Start 12/29/16 at 14:00 Tamsulosin HCl (Flomax) 0.4 mg HS PO Last administered on 12/29/16 21:05; Admin Dose 0.4 MG; Start 12/29/16 at 21:00 Atorvastatin Calcium 20 mg 20 mg DAILY@21 PO Last administered on 12/29/16 21: 06; Admin Dose 20 MG; Start 12/29/16 at 21:00 Sodium Chloride (NS) 1,000 ml @ 40 mls/hr Q24H IV Last administered on 11:54; Admin Dose 40 MLS/HR; Start 12/29/16 at 11:30 Hydralazine HCl 25 mg 25 mg Q8 PO Last administered on 12/30/16 15:00; Admin Dose 25 MG; Start 12/29/16 at 14:13 Ceftriaxone Sodium (Rocephin) 50 ml @ 100 mls/hr Q24H IVPB Last administered on 12/29/16 22:24; Admin Dose 100 MLS/HR; Start 12/29/16 at 21:30 Pantoprazole (Protonix Tab) 40 mg QAM PO ; Start 12/31/16 at 09:00 GEOVANY IBARRA December 30, 2016 17:36
[2016-12-30] MEDS: ATORVASTATIN 20 MG TAB PO SCH (22:01)
[2016-12-30] MEDS: TAMSULOSIN (SR) 0.4 MG CAP PO SCH (22:02)
--- NOTE | 2016-12-30 23:45 | CONS ---
Date/Time of Note Date/Time of Note DATE: 12/30/16 TIME: 23:45 Assessment/Plan Assessment/Plan Chief Complaint/Hosp Course IMPRESSION: 1. Patient has hgnmx-tp-[id number] kidney disease. 2. Hyperkalemia. 3. Hypertension. 4. Diabetes mellitus. 5. Uremia. 6. Metabolic acidosis. 7. Leukocytosis. 8. Systemic inflammatory response syndrome. 9. The patient has incomplete database. 10. History of cerebrovascular accident. 11. History of gastrointestinal bleed. 12. History of pneumonia. plan ck bmp Problems: Consultation Date/Type/Reason Admit Date/Time December 29, 2016 at 04:03 Type of Consultation: renal 24 HR Interval Summary Constitutional: no complaints Exam/Review of Systems Vital Signs Vitals Vital Signs Date Time Temp Pulse Resp B/P Pulse Ox O2 Delivery O2 Flow Rate FiO2 12/30/16 21:20 98 2.0 12/30/16 21:17 80 18 Nasal Cannula 12/30/16 19:50 99.0 153/66 Intake and Output 12/29/16 12/29/16 12/30/16 15:00 23:00 07:00 Intake Total 300 ml 400 ml Output Total 500 ml 1500 ml 750 ml Balance -500 ml -1200 ml -350 ml Exam Neck: supple Respiratory: clear to auscultation Cardiovascular: regular rate and rhythm Gastrointestinal: bowel sounds, soft Results Result Diagram: 12/30/16 0700 12/30/16 0710 Results 24 hrs Laboratory Tests Test 12/30/16 07:00 12/30/16 07:10 12/30/16 08:14 12/30/16 11:52 White Blood Count 14.2 H Red Blood Count 2.72 L Hemoglobin 7.6 L Hematocrit 24.2 L Mean Corpuscular Volume 89.0 Mean Corpuscular Hemoglobin 27.9 L Mean Corpuscular Hemoglobin Concent 31.4 L Red Cell Distribution Width 16.7 H Platelet Count 369 Mean Platelet Volume 10.2 Neutrophils % 76.9 Lymphocytes % 11.3 L Monocytes % 5.8 Eosinophils % 4.6 Basophils % 0.8 Nucleated Red Blood Cells % 0.0 Neutrophils # 11.0 H Lymphocytes # 1.6 Monocytes # 0.8 Eosinophils # 0.7 H Basophils # 0.1 Nucleated Red Blood Cells # 0.0 Sodium Level 141 140 Potassium Level 4.1 4.4 Chloride Level 109 112 H Carbon Dioxide Level 19 L 20 L Anion Gap 17 H 12 Blood Urea Nitrogen 35 #H 34 H Creatinine 3.32 #H 3.17 H Glucose Level 105 # 102 Calcium Level 7.8 L 8.0 L Total Bilirubin 0.1 L Direct Bilirubin 0.00 Indirect Bilirubin 0.1 Aspartate Amino Transf (AST/SGOT) 29 Alanine Aminotransferase (ALT/SGPT) 32 Alkaline Phosphatase 108 Total Protein 7.0 Albumin 2.8 L Globulin 4.20 H Albumin/Globulin Ratio 0.66 Bedside Glucose 140 267 H Test 12/30/16 17:18 12/30/16 20:59 Bedside Glucose 184 190 Medications Medications Current Medications Acetaminophen (Tylenol Tab) 650 mg Q6H PRN PO PAIN AND OR ELEVATED TEMP; Start 12/29/16 at 10:30; Status Future Hold Diagnostic Test (Pha) (Accu-Chek) 1 ea 02 XX ; Start 12/30/16 at 02:00 Miscellaneous Information 1 ea NOTE XX ; Start 12/29/16 at 10:30 Glucose (Glutose) 15 gm Q15M PRN PO DECREASED GLUCOSE; Start 12/29/16 at 10:30 Glucose (Glutose) 22.5 gm Q15M PRN PO DECREASED GLUCOSE; Start 12/29/16 at 10:30 Dextrose (D50w Syringe) 25 ml Q15M PRN IV DECREASED GLUCOSE; Start 12/29/16 at 10:30 Dextrose (D50w Syringe) 50 ml Q15M PRN IV DECREASED GLUCOSE; Start 12/29/16 at 10:30 Glucagon (Glucagen) 1 mg Q15M PRN IM DECREASED GLUCOSE; Start 12/29/16 at 10:30 Glucose (Glutose) 15 gm Q15M PRN BUCCAL DECREASED GLUCOSE; Start 12/29/16 at 10: 30 Hydralazine HCl (Apresoline) 10 mg Q6H PRN IV sbp greater than 165 Last administered on 12/29/16 10:27; Admin Dose 10 MG; Start 12/29/16 at 10:30 Acetaminophen (Tylenol Tab) 650 mg Q6H PO Last administered on 12/30/16 22:01 ; Admin Dose 650 MG; Start 12/29/16 at 11:00 Amiodarone HCl (Cordarone) 100 mg DAILY PO Last administered on 12/30/16 09:33 ; Admin Dose 100 MG; Start 12/29/16 at 12:00 Docusate Sodium (Colace) 100 mg Q12 PO Last administered on 12/30/16 09:33; Admin Dose 100 MG; Start 12/29/16 at 12:00 Gabapentin (Neurontin) 300 mg DAILY PO Last administered on 12/30/16 09:34; Admin Dose 300 MG; Start 12/29/16 at 12:00 Megestrol Acetate (Megace) 40 mg BID PO Last administered on 12/30/16 22:01; Admin Dose 40 MG; Start 12/29/16 at 12:00 Ondansetron HCl (Zofran Tab) 4 mg Q8 PO Last administered on 12/30/16 15:00; Admin Dose 4 MG; Start 12/29/16 at 14:00 Tamsulosin HCl (Flomax) 0.4 mg HS PO Last administered on 12/30/16 22:02; Admin Dose 0.4 MG; Start 12/29/16 at 21:00 Atorvastatin Calcium 20 mg 20 mg DAILY@21 PO Last administered on 12/30/16 22: 01; Admin Dose 20 MG; Start 12/29/16 at 21:00 Sodium Chloride (NS) 1,000 ml @ 40 mls/hr Q24H IV Last administered on 11:54; Admin Dose 40 MLS/HR; Start 12/29/16 at 11:30 Hydralazine HCl 25 mg 25 mg Q8 PO Last administered on 12/30/16 15:00; Admin Dose 25 MG; Start 12/29/16 at 14:13 Ceftriaxone Sodium (Rocephin) 50 ml @ 100 mls/hr Q24H IVPB Last administered on 12/29/16 22:24; Admin Dose 100 MLS/HR; Start 12/29/16 at 21:30 Pantoprazole (Protonix Tab) 40 mg QAM PO ; Start 12/31/16 at 09:00 ABBY RAMOS MD December 30, 2016 23:45
[2016-12-31] VITALS (22 sets, daily range): BP systolic 117–171; BP diastolic 56–79; PULSE 79–96; RESP 12–19
[2016-12-31] MEDS: ALBUTEROL/IPRATROPIUM (NEB) 3 ML AMP HHN SCH ×6 (01:08→21:49)
[2016-12-31] MEDS: ACCU-CHEK XX SCH (02:00)
[2016-12-31] MEDS: hydrALAzine 20 MG INJ IV PRN ×2 (02:43→14:00)
[2016-12-31] MEDS: CEFTRIAXONE 1 GM/50 ML (PMX) 50 ML IVPB SCH ×2 (02:51→22:41)
[2016-12-31] MEDS: ACETAMINOPHEN 325 MG TAB PO SCH ×4 (05:00→23:00)
[2016-12-31] MEDS: ONDANSETRON 4 MG TAB PO SCH ×2 (06:00→22:00)
[2016-12-31] MEDS: INSULIN ASPART [NOVOLOG] 3 ML PEN SC SCH ×4 (08:00→21:00)
[2016-12-31 08:38] LABS: ADD SCAN DIFF NO
[2016-12-31 08:52] LABS: BASOPHIL # 0.1 10^3/ul (0.0-0.1); BASOPHILS % 0.8 % (0.0-2.0); EOSINOPHILS % 8.1 % (0.0-7.0); HEMATOCRIT 25.2 % (42.0-52.0); HEMOGLOBIN 8.3 g/dl (14.0-18.0); LYMPHOCYTES % 15.4 % (15.0-51.0); MEAN CORPUSCULAR HEMOGLOBIN 28.1 pg (29.0-33.0); MEAN CORPUSCULAR HGB CONC 32.9 g/dl (32.0-37.0); MEAN CORPUSCULAR VOLUME 85.4 fl (82.0-101.0); MEAN PLATELET VOLUME 10.4 fl (7.4-10.4); MONOCYTE # 0.9 10^3/ul (0.3-0.9); NEUTROPHIL # 8.7 10^3/ul (1.6-7.5); NEUTROPHILS % 67.8 % (39.0-77.0); PLATELET COUNT 356 10^3/UL (140-415); RED BLOOD COUNT 2.95 10^6/ul (4.70-6.10); RED CELL DISTRIBUTION WIDTH 15.6 % (11.5-14.5); WHITE BLOOD COUNT 12.8 10^3/ul (4.8-10.8)
[2016-12-31] MEDS: DOCUSATE SODIUM 100 MG CAP PO SCH (09:00)
[2016-12-31] MEDS: PANTOPRAZOLE (EC) 40 MG TAB PO SCH (09:00)
[2016-12-31] MEDS: MEGESTROL 40 MG TAB PO SCH ×2 (09:00→21:00)
[2016-12-31 09:07] LABS: POTASSIUM 3.8 mmol/L (3.5-5.1)
[2016-12-31 09:09] LABS: INR 1.04; PROTIME 13.6 Sec (12.2-14.2); PT RATIO 1.1
[2016-12-31 09:10] LABS: CALCIUM 7.9 mg/dl (8.4-10.2)
[2016-12-31 09:11] LABS: THROMBIN TIME 16.7 SEC (13.8-19.1)
--- NOTE | 2016-12-31 10:35 | RADRPT ---
Vent Rate: 92 bpm RR Interval: 0 msec [place] Interval: 216 msec QRS Duration: 122 msec QT Interval: 408 msec QTC Interval: 504 msec P-R-T [place]: 70 - 73 - 32 degrees Sinus rhythm with 1st degree AV block with premature atrial complexes Right bundle branch block Abnormal ECG Electronically Signed By: Romulo Wilkes [id number]
[2016-12-31] MEDS ORDERED: LIDOCAINE 2% (SDV) 5 ML INJ ONE (11:18)
[2016-12-31] MEDS ORDERED: PROPOFOL 20 ML ONE (11:18)
[2016-12-31] MEDS ORDERED: FENTAnyl 50 MCG/ML VIAL ONE (11:19)
[2016-12-31] MEDS ORDERED: CEFAZOLIN 1 GM/50 ML (PMX) 50 ML IVPB ONE (11:44)
[2016-12-31] MEDS ORDERED: LABETALOL HCL 20MG INJ IV PRN (12:00)
[2016-12-31] MEDS ORDERED: morphine (1 MG/ML) 10ML SYRINGE IV PRN ×3 (12:00)
[2016-12-31] MEDS ORDERED: DIPHENHYDRAMINE 50 MG INJ IV PRN (12:00)
[2016-12-31] MEDS ORDERED: MEPERIDINE 25 MG INJ IV PRN (12:00)
[2016-12-31] MEDS ORDERED: hydrALAzine 20 MG INJ IV PRN (12:00)
[2016-12-31] MEDS ORDERED: EPHEDrine SULFATE 50 MG/5 ML SYG IV PRN (12:00)
[2016-12-31] MEDS ORDERED: METOCLOPRAMIDE 10 MG INJ IV PRN (12:00)
[2016-12-31] MEDS ORDERED: INSULIN ASPART [NOVOLOG] 3 ML PEN SC ONE (12:00)
[2016-12-31] MEDS ORDERED: ONDANSETRON 4 MG INJ IV PRN (12:00)
--- NOTE | 2016-12-31 12:34 | GILP ---
DATE OF PROCEDURE: PROCEDURE PERFORMED: Percutaneous endoscopic gastrostomy. INDICATION: A 71-year-old male undergoing this procedure for dysphagia and aspiration pneumonia. T he purpose is to put a G-tube for senior care enteral nutrition. INFORMED CONSENT: The risk of the procedure, related and unrelated complications, anesthetic risks, alternatives discussed, and informed consent was obtained. DESCRIPTION OF PROCEDURE: The patient was brought to the GI lab, sedated by the CRNFA. After optim al sedation, antibiotic, Ancef 1 gram was given, scope was passed with much ease into esophagus and advanced further down into stomach and duodenum. There was no evidence of obstruction or ulcer or a ny AVM. By transillumination and digital palpation technique, appropriate site was chosen on anteri or abdominal wall. Site was sterilized with chlorhexidine solution, 2% Xylocaine instilled by safe method. A small incision was made. Through that incision, trocar stylet was passed into the stomac h. Stylet was removed through the hollow tip of the catheter, the insertion wire was passed, and th e entire procedure was completed by modified Ponsky technique. The patient was rescoped. The posit ion of the internal bumper confirmed. External bumper secured. Tolerated the procedure very well. IMPRESSION: Successful placement of G-tube done. PLAN: To have abdominal binder all the time and resume feeding after 6 hours. Dictated By: JEFRY PRUETT/NTS Conf#: [id number] DID#: [id number] CC: ABBY RAMOS MD; KE JAVED MD;*[facility]*
--- NOTE | 2016-12-31 13:40 | PN ---
Date/Time of Note Date/Time of Note DATE: 12/31/16 TIME: 13:36 Assessment/Plan Lines/Catheters IV [facility] (from [facility] [place] Urinary Cath still in place: Yes Assessment/Plan Assessment/Plan 1. Altered level of consciousness, most likely secondary to electrolyte imbalances secondary to metabolic encephalopathy- IMPROVING 2. Possible healthcare-acquired pneumonia. Continue patient on cefepime and vancomycin. 3. Systemic inflammatory response syndrome secondary to pneumonia. 4. Diastolic congestive heart failure. 5. Chronic kidney disease. 6. Hyperkalemia., Resolved. 7. Anemia. We will transfuse 2 units of packed red blood cells. 8. Severe protein calorie malnutrition as evidenced by low albumin of 2.9. Dr. Cabral is following in gastroenterology consultation. Plan for placing G- tube tomorrow. 9. History of cerebrovascular accident. 10. Hypertension. 11. History of paroxysmal atrial fibrillation. 12. Diabetes mellitus. Continue NovoLog per mild algorithm sliding scale. Further recommendations based on clinical course. Plan of care discussed with Dr. Patel. Subjective 24 Hr Interval Summary Free Text/Dictation resting, awake, sp GT placement today- stable, dw staff. Exam/Review of Systems Vital Signs Vitals Vital Signs Date Time Temp Pulse Resp B/P Pulse Ox O2 Delivery O2 Flow Rate FiO2 12/31/16 13:17 93 12/31/16 12:40 17 146/67 99 Nasal Cannula 2.0 12/31/16 12:25 97.9 Intake and Output 12/30/16 12/30/16 12/31/16 15:00 23:00 07:00 Intake Total 700 ml 700 ml Output Total 600 ml 500 ml Balance 100 ml 200 ml Exam Constitutional: alert, well developed Psych: no complaints Eyes: nl sclera ENMT: nl external ears & nose Neck: non-tender Respiratory: clear to auscultation Cardiovascular: nl pulses Gastrointestinal: non-tender, other (sp GT placement), soft Extremities: normal pulses Results Result Diagram: 12/31/16 0753 12/31/16 0753 Results 24 hrs Laboratory Tests Test 12/30/16 17:18 12/30/16 20:59 12/31/16 02:28 12/31/16 07:53 Bedside Glucose 184 190 138 White Blood Count 12.8 H Red Blood Count 2.95 L Hemoglobin 8.3 L Hematocrit 25.2 L Mean Corpuscular Volume 85.4 Mean Corpuscular Hemoglobin 28.1 L Mean Corpuscular Hemoglobin Concent 32.9 Red Cell Distribution Width 15.6 H Platelet Count 344 # Mean Platelet Volume 10.4 Neutrophils % 67.8 Lymphocytes % 15.4 Monocytes % 7.0 Eosinophils % 8.1 H Basophils % 0.8 Nucleated Red Blood Cells % 0.0 Neutrophils # 8.7 H Lymphocytes # 2.0 Monocytes # 0.9 Eosinophils # 1.0 H Basophils # 0.1 Nucleated Red Blood Cells # 0.0 Prothrombin Time 13.6 Prothrombin Time Ratio 1.1 INR International Normalized Ratio 1.04 Activated Partial Thromboplast Time 42.0 H Thrombin Time Pending Sodium Level 139 Potassium Level 3.8 Chloride Level 108 Carbon Dioxide Level 21 Anion Gap 14 Blood Urea Nitrogen 29 H Creatinine 3.00 H Glucose Level 114 Calcium Level 7.9 L Test 12/31/16 08:04 Bedside Glucose 119 Medications Medications Current Medications Acetaminophen (Tylenol Tab) 650 mg Q6H PRN PO PAIN AND OR ELEVATED TEMP; Start 12/29/16 at 10:30; Status Future Hold Diagnostic Test (Pha) (Accu-Chek) 1 ea 02 XX ; Start 12/30/16 at 02:00 Miscellaneous Information 1 ea NOTE XX ; Start 12/29/16 at 10:30 Glucose (Glutose) 15 gm Q15M PRN PO DECREASED GLUCOSE; Start 12/29/16 at 10:30 Glucose (Glutose) 22.5 gm Q15M PRN PO DECREASED GLUCOSE; Start 12/29/16 at 10:30 Dextrose (D50w Syringe) 25 ml Q15M PRN IV DECREASED GLUCOSE; Start 12/29/16 at 10:30 Dextrose (D50w Syringe) 50 ml Q15M PRN IV DECREASED GLUCOSE; Start 12/29/16 at 10:30 Glucagon (Glucagen) 1 mg Q15M PRN IM DECREASED GLUCOSE; Start 12/29/16 at 10:30 Glucose (Glutose) 15 gm Q15M PRN BUCCAL DECREASED GLUCOSE; Start 12/29/16 at 10: 30 Hydralazine HCl (Apresoline) 10 mg Q6H PRN IV sbp greater than 165 Last administered on 12/31/16t 02:43; Admin Dose 10 MG; Start 12/29/16 at 10:30 Acetaminophen (Tylenol Tab) 650 mg Q6H PO Last administered on 12/31/16 05:00 ; Admin Dose 650 MG; Start 12/29/16 at 11:00 Amiodarone HCl (Cordarone) 100 mg DAILY PO Last administered on 12/30/16 09:33 ; Admin Dose 100 MG; Start 12/29/16 at 12:00 Docusate Sodium (Colace) 100 mg Q12 PO Last administered on 12/30/16 09:33; Admin Dose 100 MG; Start 12/29/16 at 12:00 Gabapentin (Neurontin) 300 mg DAILY PO Last administered on 12/30/16 09:34; Admin Dose 300 MG; Start 12/29/16 at 12:00 Megestrol Acetate (Megace) 40 mg BID PO Last administered on 12/30/16 22:01; Admin Dose 40 MG; Start 12/29/16 at 12:00 Ondansetron HCl (Zofran Tab) 4 mg Q8 PO Last administered on 12/30/16 15:00; Admin Dose 4 MG; Start 12/29/16 at 14:00 Tamsulosin HCl (Flomax) 0.4 mg HS PO Last administered on 12/30/16 22:02; Admin Dose 0.4 MG; Start 12/29/16 at 21:00 Atorvastatin Calcium 20 mg 20 mg DAILY@21 PO Last administered on 12/30/16 22: 01; Admin Dose 20 MG; Start 12/29/16 at 21:00 Sodium Chloride (NS) 1,000 ml @ 40 mls/hr Q24H IV Last administered on 11:54; Admin Dose 40 MLS/HR; Start 12/29/16 at 11:30 Hydralazine HCl 25 mg 25 mg Q8 PO Last administered on 12/31/16 06:05; Admin Dose 25 MG; Start 12/29/16 at 14:13 Ceftriaxone Sodium (Rocephin) 50 ml @ 100 mls/hr Q24H IVPB Last administered on 12/31/16 02:51; Admin Dose 100 MLS/HR; Start 12/29/16 at 21:30 Pantoprazole (Protonix Tab) 40 mg QAM PO ; Start 12/31/16 at 09:00 MARCY WEINER December 31, 2016 13:40
--- NOTE | 2016-12-31 16:26 | CONS ---
Date/Time of Note Date/Time of Note DATE: 12/31/16 TIME: 16:25 Assessment/Plan Assessment/Plan Chief Complaint/Hosp Course IMPRESSION: 1. Patient has omxgo-op-cozfhko kidney disease. 2. Hyperkalemia.BETTER 3. Hypertension. 4. Diabetes mellitus. 5. Uremia. 6. Metabolic acidosis. 7. Leukocytosis. 8. Systemic inflammatory response syndrome. 9. The patient has incomplete database. 10. History of cerebrovascular accident. 11. History of gastrointestinal bleed. 12. History of pneumonia. 13 S/P PEG plan ck bmp Problems: Consultation Date/Type/Reason Admit Date/Time December 29, 2016 at 04:03 Type of Consultation: renal 24 HR Interval Summary Constitutional: no complaints Exam/Review of Systems Vital Signs Vitals Vital Signs Date Time Temp Pulse Resp B/P Pulse Ox O2 Delivery O2 Flow Rate FiO2 12/31/16 16:17 99.5 98 18 166/79 96 12/31/16 13:05 Nasal Cannula 2.0 Intake and Output 12/30/16 12/30/16 12/31/16 15:00 23:00 07:00 Intake Total 700 ml 700 ml Output Total 600 ml 500 ml Balance 100 ml 200 ml Exam Neck: supple Respiratory: clear to auscultation Cardiovascular: regular rate and rhythm Gastrointestinal: bowel sounds (+), soft Extremities: No edema Results Result Diagram: 12/31/16 0753 12/31/16 0753 Results 24 hrs Laboratory Tests Test 12/30/16 17:18 12/30/16 20:59 12/31/16 02:28 12/31/16 07:53 Bedside Glucose 184 190 138 White Blood Count 12.8 H Red Blood Count 2.95 L Hemoglobin 8.3 L Hematocrit 25.2 L Mean Corpuscular Volume 85.4 Mean Corpuscular Hemoglobin 28.1 L Mean Corpuscular Hemoglobin Concent 32.9 Red Cell Distribution Width 15.6 H Platelet Count 344 # Mean Platelet Volume 10.4 Neutrophils % 67.8 Lymphocytes % 15.4 Monocytes % 7.0 Eosinophils % 8.1 H Basophils % 0.8 Nucleated Red Blood Cells % 0.0 Neutrophils # 8.7 H Lymphocytes # 2.0 Monocytes # 0.9 Eosinophils # 1.0 H Basophils # 0.1 Nucleated Red Blood Cells # 0.0 Prothrombin Time 13.6 Prothrombin Time Ratio 1.1 INR International Normalized Ratio 1.04 Activated Partial Thromboplast Time 42.0 H Thrombin Time 16.7 Sodium Level 139 Potassium Level 3.8 Chloride Level 108 Carbon Dioxide Level 21 Anion Gap 14 Blood Urea Nitrogen 29 H Creatinine 3.00 H Glucose Level 114 Calcium Level 7.9 L Test 12/31/16 08:04 12/31/16 13:53 Bedside Glucose 119 105 Medications Medications Current Medications Acetaminophen (Tylenol Tab) 650 mg Q6H PRN PO PAIN AND OR ELEVATED TEMP; Start 12/29/16 at 10:30; Status Future Hold Diagnostic Test (Pha) (Accu-Chek) 1 ea 02 XX ; Start 12/30/16 at 02:00 Miscellaneous Information 1 ea NOTE XX ; Start 12/29/16 at 10:30 Glucose (Glutose) 15 gm Q15M PRN PO DECREASED GLUCOSE; Start 12/29/16 at 10:30 Glucose (Glutose) 22.5 gm Q15M PRN PO DECREASED GLUCOSE; Start 12/29/16 at 10:30 Dextrose (D50w Syringe) 25 ml Q15M PRN IV DECREASED GLUCOSE; Start 12/29/16 at 10:30 Dextrose (D50w Syringe) 50 ml Q15M PRN IV DECREASED GLUCOSE; Start 12/29/16 at 10:30 Glucagon (Glucagen) 1 mg Q15M PRN IM DECREASED GLUCOSE; Start 12/29/16 at 10:30 Glucose (Glutose) 15 gm Q15M PRN BUCCAL DECREASED GLUCOSE; Start 12/29/16 at 10: 30 Hydralazine HCl (Apresoline) 10 mg Q6H PRN IV sbp greater than 165 Last administered on 12/31/16 14:00; Admin Dose 10 MG; Start 12/29/16 at 10:30 Acetaminophen (Tylenol Tab) 650 mg Q6H PO Last administered on 12/31/16 05:00 ; Admin Dose 650 MG; Start 12/29/16 at 11:00 Amiodarone HCl (Cordarone) 100 mg DAILY PO Last administered on 12/30/16 09:33 ; Admin Dose 100 MG; Start 12/29/16 at 12:00 Docusate Sodium (Colace) 100 mg Q12 PO Last administered on 12/30/16 09:33; Admin Dose 100 MG; Start 12/29/16 at 12:00 Gabapentin (Neurontin) 300 mg DAILY PO Last administered on 12/30/16 09:34; Admin Dose 300 MG; Start 12/29/16 at 12:00 Megestrol Acetate (Megace) 40 mg BID PO Last administered on 12/30/16 22:01; Admin Dose 40 MG; Start 12/29/16 at 12:00 Ondansetron HCl (Zofran Tab) 4 mg Q8 PO Last administered on 12/30/16 15:00; Admin Dose 4 MG; Start 12/29/16 at 14:00 Tamsulosin HCl (Flomax) 0.4 mg HS PO Last administered on 12/30/16 22:02; Admin Dose 0.4 MG; Start 12/29/16 at 21:00 Atorvastatin Calcium 20 mg 20 mg DAILY@21 PO Last administered on 12/30/16 22: 01; Admin Dose 20 MG; Start 12/29/16 at 21:00 Sodium Chloride (NS) 1,000 ml @ 40 mls/hr Q24H IV Last administered on 11:54; Admin Dose 40 MLS/HR; Start 12/29/16 at 11:30 Hydralazine HCl 25 mg 25 mg Q8 PO Last administered on 12/31/16 06:05; Admin Dose 25 MG; Start 12/29/16 at 14:13 Ceftriaxone Sodium (Rocephin) 50 ml @ 100 mls/hr Q24H IVPB Last administered on 12/31/16 02:51; Admin Dose 100 MLS/HR; Start 12/29/16 at 21:30 Pantoprazole (Protonix Tab) 40 mg QAM PO ; Start 12/31/16 at 09:00 ABBY RAMOS MD December 31, 2016 16:26
[2016-12-31] MEDS: AMIODARONE 200 MG TAB PO SCH (18:02)
[2016-12-31] MEDS: GABAPENTIN 300 MG CAP PO SCH (18:03)
[2016-12-31] MEDS: DOCUSATE SODIUM 10 MG/ML (10ML CUP) GTB SCH (21:59)
[2016-12-31] MEDS: ATORVASTATIN 20 MG TAB PO SCH (22:22)
[2016-12-31] MEDS: TAMSULOSIN (SR) 0.4 MG CAP PO SCH (22:22)
[2017-01-01] VITALS (12 sets, daily range): BP systolic 135–158; BP diastolic 63–74; PULSE 78–87; RESP 16–18
[2017-01-01] MEDS: ALBUTEROL/IPRATROPIUM (NEB) 3 ML AMP HHN SCH ×6 (01:42→20:02)
[2017-01-01] MEDS: ACCU-CHEK XX SCH (02:00)
[2017-01-01] MEDS: ACETAMINOPHEN 325 MG TAB PO SCH ×4 (05:53→22:45)
[2017-01-01] MEDS: ONDANSETRON 4 MG TAB PO SCH ×3 (05:55→22:39)
[2017-01-01] MEDS: INSULIN ASPART [NOVOLOG] 3 ML PEN SC SCH ×4 (08:00→21:00)
[2017-01-01] MEDS: MEGESTROL 40 MG TAB PO SCH ×2 (08:36→22:39)
[2017-01-01] MEDS: PANTOPRAZOLE (EC) 40 MG TAB PO SCH (08:36)
[2017-01-01] MEDS: AMIODARONE 200 MG TAB PO SCH (08:37)
[2017-01-01] MEDS: DOCUSATE SODIUM 10 MG/ML (10ML CUP) GTB SCH ×2 (08:37→21:43)
[2017-01-01] MEDS: GABAPENTIN 300 MG CAP PO SCH (08:37)
[2017-01-01] MEDS: SOD CHLORIDE 0.9% 1,000 ML IV SCH ×2 (08:43→11:30)
[2017-01-01 09:16] LABS: ALBUMIN 2.7 g/dl (3.3-4.9); ALBUMIN/GLOBULIN RATIO 0.69; BILIRUBIN,INDIRECT 0.2 mg/dl (0-1.1); BILIRUBIN,TOTAL 0.2 mg/dl (0.2-1.3); CALCIUM 8.3 mg/dl (8.4-10.2); CREATININE 2.72 mg/dl (0.61-1.24); POTASSIUM 3.7 mmol/L (3.5-5.1); TOTAL PROTEIN 6.6 g/dl (6.1-8.1)
--- NOTE | 2017-01-01 13:13 | CONS ---
Date/Time of Note Date/Time of Note DATE: 01/01/17 TIME: 13:12 Assessment/Plan Assessment/Plan Additional Assessment/Plan IMPRESSION: 1. Dysphagia. Status post PEG 2. Prerenal azotemia. 3. History of hypertension. 4. Cerebrovascular accident. 5. Chronic kidney disease. 6. Cachexia and malnutrition. 7. Diabetes mellitus. 8. Paroxysmal atrial fibrillation. Plan Increase feeding slowly Consultation Date/Type/Reason Admit Date/Time December 29, 2016 at 04:03 Initial Consult Date Type of Consultation: renal 24 HR Interval Summary Constitutional: no complaints Exam/Review of Systems Vital Signs Vitals Vital Signs Date Time Temp Pulse Resp B/P Pulse Ox O2 Delivery O2 Flow Rate FiO2 01/01/17 12:27 21 01/01/17 12:27 80 18 Nasal Cannula 2.0 01/01/17 12:03 97.0 143/72 Intake and Output 12/31/16 12/31/16 01/01/17 15:00 23:00 07:00 Intake Total 0 ml 0 ml Output Total 55 ml 700 ml Balance -55 ml -700 ml Exam Constitutional: alert, oriented, well developed Psych: nl mood/affect, no complaints Head: atraumatic, normocephalic Eyes: EOMI, PERRL, nl conjunctiva, nl lids, nl sclera ENMT: nl external ears & nose, nl lips & teeth, nl nasal mucosa & septum Neck: non-tender, supple Respiratory: clear to auscultation, normal air movement Cardiovascular: nl pulses, regular rate and rhythm Gastrointestinal: nl liver, spleen, non-tender, soft Musculoskeletal: nl extremities to inspection, nl gait and stance Extremities: normal pulses Neurological: PRECISION GRINDER EXTERNAL II-XII intact, nl mental status, nl speech, nl strength Skin: nl turgor, No rash or lesions Lymph: nl lymph nodes Results Result Diagram: 12/31/16 0753 01/01/17 0730 Results 24 hrs Laboratory Tests Test 12/31/16 13:53 12/31/16 17:41 12/31/16 20:36 01/01/17 02:39 Bedside Glucose 105 89 86 98 Test 01/01/17 07:30 01/01/17 08:34 01/01/17 12:13 Sodium Level 137 Potassium Level 3.7 Chloride Level 111 H Carbon Dioxide Level 21 Anion Gap 9 # Blood Urea Nitrogen 27 H Creatinine 2.72 H Glucose Level 138 Calcium Level 8.3 L Total Bilirubin 0.2 Direct Bilirubin 0.00 Indirect Bilirubin 0.2 Aspartate Amino Transf (AST/SGOT) 20 Alanine Aminotransferase (ALT/SGPT) 25 Alkaline Phosphatase 101 Total Protein 6.6 Albumin 2.7 L Globulin 3.90 H Albumin/Globulin Ratio 0.69 Bedside Glucose 137 162 Medications Medications Current Medications Acetaminophen (Tylenol Tab) 650 mg Q6H PRN PO PAIN AND OR ELEVATED TEMP; Start 12/29/16 at 10:30; Status Future Hold Diagnostic Test (Pha) (Accu-Chek) 1 ea 02 XX ; Start 12/30/16 at 02:00 Miscellaneous Information 1 ea NOTE XX ; Start 12/29/16 at 10:30 Glucose (Glutose) 15 gm Q15M PRN PO DECREASED GLUCOSE; Start 12/29/16 at 10:30 Glucose (Glutose) 22.5 gm Q15M PRN PO DECREASED GLUCOSE; Start 12/29/16 at 10:30 Dextrose (D50w Syringe) 25 ml Q15M PRN IV DECREASED GLUCOSE; Start 12/29/16 at 10:30 Dextrose (D50w Syringe) 50 ml Q15M PRN IV DECREASED GLUCOSE; Start 12/29/16 at 10:30 Glucagon (Glucagen) 1 mg Q15M PRN IM DECREASED GLUCOSE; Start 12/29/16 at 10:30 Glucose (Glutose) 15 gm Q15M PRN BUCCAL DECREASED GLUCOSE; Start 12/29/16 at 10: 30 Hydralazine HCl (Apresoline) 10 mg Q6H PRN IV sbp greater than 165 Last administered on 12/31/16 14:00; Admin Dose 10 MG; Start 12/29/16 at 10:30 Acetaminophen (Tylenol Tab) 650 mg Q6H PO Last administered on 01/01/17 12:08 ; Admin Dose 650 MG; Start 12/29/16 at 11:00 Amiodarone HCl (Cordarone) 100 mg DAILY PO Last administered on 01/01/17 08:37 ; Admin Dose 100 MG; Start 12/29/16 at 12:00 Gabapentin (Neurontin) 300 mg DAILY PO Last administered on 01/01/17 08:37; Admin Dose 300 MG; Start 12/29/16 at 12:00 Megestrol Acetate (Megace) 40 mg BID PO Last administered on 01/01/17 08:36; Admin Dose 40 MG; Start 12/29/16 at 12:00 Ondansetron HCl (Zofran Tab) 4 mg Q8 PO Last administered on 12/30/16 15:00; Admin Dose 4 MG; Start 12/29/16 at 14:00 Tamsulosin HCl (Flomax) 0.4 mg HS PO Last administered on 12/31/16 22:22; Admin Dose 0.4 MG; Start 12/29/16 at 21:00 Atorvastatin Calcium 20 mg 20 mg DAILY@21 PO Last administered on 12/31/16 22: 22; Admin Dose 20 MG; Start 12/29/16 at 21:00 Sodium Chloride (NS) 1,000 ml @ 40 mls/hr Q24H IV Last administered on 08:43; Admin Dose 40 MLS/HR; Start 12/29/16 at 11:30 Hydralazine HCl 25 mg 25 mg Q8 PO Last administered on 01/01/17 05:54; Admin Dose 25 MG; Start 12/29/16 at 14:13 Ceftriaxone Sodium (Rocephin) 50 ml @ 100 mls/hr Q24H IVPB Last administered on 12/31/16 22:41; Admin Dose 100 MLS/HR; Start 12/29/16 at 21:30 Pantoprazole (Protonix Tab) 40 mg QAM PO Last administered on 01/01/17 08:36; Admin Dose 40 MG; Start 12/31/16 at 09:00 Docusate Sodium (Colace Liquid Cup) 100 mg Q12 GTB Last administered on 08:37; Admin Dose 100 MG; Start 12/31/16 at 21:59 JEFRY CERNA MD January 01, 2017 13:13
--- NOTE | 2017-01-01 16:40 | PN ---
Date/Time of Note Date/Time of Note DATE: 01/01/17 TIME: 16:38 Assessment/Plan VTE Prophylaxis VTE Prophylaxis Intervention: ambulation, SCD's Lines/Catheters IV Catheter Type (from Nrs): Saline Lock Urinary Cath still in place: Yes Reason Cath still needed: pres ulcer contaminated by urine Assessment/Plan Chief Complaint/Hosp Course 1. Dysphagia. Status post PEG 2. Prerenal azotemia. 3. History of hypertension. 4. Cerebrovascular accident. 5. Chronic kidney disease. 6. Cachexia and malnutrition. 7. Diabetes mellitus. 8. Paroxysmal atrial fibrillation. Problems: Assessment/Plan 1. Barium swallow 2. Oral gratification if passed 3. DC IV fluids Exam/Review of Systems Vital Signs Vitals Vital Signs Date Time Temp Pulse Resp B/P Pulse Ox O2 Delivery O2 Flow Rate FiO2 01/01/17 16:29 78 01/01/17 15:58 98.0 18 139/74 98 01/01/17 12:27 Nasal Cannula 2.0 Intake and Output 12/31/16 12/31/16 01/01/17 15:00 23:00 07:00 Intake Total 0 ml 0 ml Output Total 55 ml 700 ml Balance -55 ml -700 ml Exam Constitutional: alert, oriented (one) Neck: supple Respiratory: clear to auscultation Cardiovascular: regular rate and rhythm Gastrointestinal: other (GT ), soft Results Result Diagram: 12/31/16 0753 01/01/17 0730 Results 24 hrs Laboratory Tests Test 12/31/16 17:41 12/31/16 20:36 01/01/17 02:39 01/01/17 07:30 Bedside Glucose 89 86 98 Sodium Level 137 Potassium Level 3.7 Chloride Level 111 H Carbon Dioxide Level 21 Anion Gap 9 # Blood Urea Nitrogen 27 H Creatinine 2.72 H Glucose Level 138 Calcium Level 8.3 L Total Bilirubin 0.2 Direct Bilirubin 0.00 Indirect Bilirubin 0.2 Aspartate Amino Transf (AST/SGOT) 20 Alanine Aminotransferase (ALT/SGPT) 25 Alkaline Phosphatase 101 Total Protein 6.6 Albumin 2.7 L Globulin 3.90 H Albumin/Globulin Ratio 0.69 Test 01/01/17 08:34 01/01/17 12:13 Bedside Glucose 137 162 Medications Medications Current Medications Acetaminophen (Tylenol Tab) 650 mg Q6H PRN PO PAIN AND OR ELEVATED TEMP; Start 12/29/16 at 10:30; Status Future Hold Diagnostic Test (Pha) (Accu-Chek) 1 ea 02 XX ; Start 12/30/16 at 02:00 Miscellaneous Information 1 ea NOTE XX ; Start 12/29/16 at 10:30 Glucose (Glutose) 15 gm Q15M PRN PO DECREASED GLUCOSE; Start 12/29/16 at 10:30 Glucose (Glutose) 22.5 gm Q15M PRN PO DECREASED GLUCOSE; Start 12/29/16 at 10:30 Dextrose (D50w Syringe) 25 ml Q15M PRN IV DECREASED GLUCOSE; Start 12/29/16 at 10:30 Dextrose (D50w Syringe) 50 ml Q15M PRN IV DECREASED GLUCOSE; Start 12/29/16 at 10:30 Glucagon (Glucagen) 1 mg Q15M PRN IM DECREASED GLUCOSE; Start 12/29/16 at 10:30 Glucose (Glutose) 15 gm Q15M PRN BUCCAL DECREASED GLUCOSE; Start 12/29/16 at 10: 30 Hydralazine HCl (Apresoline) 10 mg Q6H PRN IV sbp greater than 165 Last administered on 12/31/16 14:00; Admin Dose 10 MG; Start 12/29/16 at 10:30 Acetaminophen (Tylenol Tab) 650 mg Q6H PO Last administered on 01/01/17 12:08 ; Admin Dose 650 MG; Start 12/29/16 at 11:00 Amiodarone HCl (Cordarone) 100 mg DAILY PO Last administered on 01/01/17 08:37 ; Admin Dose 100 MG; Start 12/29/16 at 12:00 Gabapentin (Neurontin) 300 mg DAILY PO Last administered on 01/01/17 08:37; Admin Dose 300 MG; Start 12/29/16 at 12:00 Megestrol Acetate (Megace) 40 mg BID PO Last administered on 01/01/17 08:36; Admin Dose 40 MG; Start 12/29/16 at 12:00 Ondansetron HCl (Zofran Tab) 4 mg Q8 PO Last administered on 01/01/17 13:34; Admin Dose 4 MG; Start 12/29/16 at 14:00 Tamsulosin HCl (Flomax) 0.4 mg HS PO Last administered on 12/31/16 22:22; Admin Dose 0.4 MG; Start 12/29/16 at 21:00 Atorvastatin Calcium 20 mg 20 mg DAILY@21 PO Last administered on 12/31/16 22: 22; Admin Dose 20 MG; Start 12/29/16 at 21:00 Sodium Chloride (NS) 1,000 ml @ 40 mls/hr Q24H IV Last administered on 08:43; Admin Dose 40 MLS/HR; Start 12/29/16 at 11:30 Hydralazine HCl 25 mg 25 mg Q8 PO Last administered on 01/01/17 13:34; Admin Dose 25 MG; Start 12/29/16 at 14:13 Ceftriaxone Sodium (Rocephin) 50 ml @ 100 mls/hr Q24H IVPB Last administered on 12/31/16 22:41; Admin Dose 100 MLS/HR; Start 12/29/16 at 21:30 Pantoprazole (Protonix Tab) 40 mg QAM PO Last administered on 01/01/17 08:36; Admin Dose 40 MG; Start 12/31/16 at 09:00 Docusate Sodium (Colace Liquid Cup) 100 mg Q12 GTB Last administered on 08:37; Admin Dose 100 MG; Start 12/31/16 at 21:59 CHELSIE HERNÁNDEZ January 01, 2017 16:40
--- NOTE | 2017-01-01 18:17 | PN ---
Date/Time of Note Date/Time of Note DATE: 01/01/17 TIME: 18:14 Assessment/Plan VTE Prophylaxis VTE Prophylaxis Intervention: SCD's Lines/Catheters IV [facility]ter Type (from [facility]): Saline Lock Urinary Cath still in place: Yes Reason Cath still needed: urinary retention Assessment/Plan Chief Complaint/Hosp Course ASSESSMENT AND PLAN: 1. Altered level of consciousness, most likely secondary to electrolyte imbalances secondary to metabolic encephalopathy. 2. Possible healthcare-acquired pneumonia. Continue patient on cefepime and vancomycin. 3. Systemic inflammatory response syndrome secondary to pneumonia. 4. Diastolic congestive heart failure. 5. Chronic kidney disease. 6. Hyperkalemia., Resolved. 7. Anemia, status post blood transfusion, continue to monitor hemoglobin and hematocrit. 8. Severe protein calorie malnutrition as evidenced by low albumin of 2.9. Dr. Cabral is following in gastroenterology consultation. Status G-tube placement. 9. History of cerebrovascular accident. 10. Hypertension. 11. History of paroxysmal atrial fibrillation. 12. Diabetes mellitus. Continue NovoLog per mild algorithm sliding scale. Further recommendations based on clinical course. Plan of care discussed with Dr. Patel. Problems: Subjective 24 Hr Interval Summary Free Text/Dictation No acute events overnight, she status post G-tube placement yesterday, tolerates G-tube feeding well, continue to monitor G-tube residual, will obtain video swallow evaluation. Exam/Review of Systems Vital Signs Vitals Vital Signs Date Time Temp Pulse Resp B/P Pulse Ox O2 Delivery O2 Flow Rate FiO2 01/01/17 17:16 77 18 95 21 01/01/17 15:58 98.0 139/74 01/01/17 12:27 Nasal Cannula 2.0 Intake and Output 12/31/16 12/31/16 01/01/17 15:00 23:00 07:00 Intake Total 0 ml 0 ml Output Total 55 ml 700 ml Balance -55 ml -700 ml Exam GENERAL: Well-developed, cachectic, elderly fragile gentleman, currently is awake, alert to name. HEENT: Head is atraumatic, normocephalic. Pupils equal and round, reactive to light and accommodation. Oral mucosa is pink, moist. NECK: Supple. No cervical lymphadenopathy, no thyromegaly. CHEST: Lung sounds clear bilaterally, slightly diminished at the bases. There are no rhonchi, wheezes, rales noted. CARDIOVASCULAR: Normal S1, S2. No murmurs, clicks, rubs noted. ABDOMEN: Flat, soft, nondistended, nontender. Bowel sounds present. G-tube. EXTREMITIES: There is no edema, clubbing, cyanosis. Pulses equal bilaterally 2 +. SKIN: The patient has a sacral small stage II ulcer. No rash, petechiae noted. NEUROLOGICAL: The patient is awake, alert to name and situation, otherwise confused. The patient with history of bilateral lower extremity weakness, however was able to ambulate using walker at group home [facility]. Results Result Diagram: 12/31/16 0753 01/01/17 0730 Results 24 hrs Laboratory Tests Test 12/31/16 20:36 01/01/17 02:39 01/01/17 07:30 01/01/17 08:34 Bedside Glucose 86 98 137 Sodium Level 137 Potassium Level 3.7 Chloride Level 111 H Carbon Dioxide Level 21 Anion Gap 9 # Blood Urea Nitrogen 27 H Creatinine 2.72 H Glucose Level 138 Calcium Level 8.3 L Total Bilirubin 0.2 Direct Bilirubin 0.00 Indirect Bilirubin 0.2 Aspartate Amino Transf (AST/SGOT) 20 Alanine Aminotransferase (ALT/SGPT) 25 Alkaline Phosphatase 101 Total Protein 6.6 Albumin 2.7 L Globulin 3.90 H Albumin/Globulin Ratio 0.69 Test 01/01/17 12:13 01/01/17 17:20 Bedside Glucose 162 145 Medications Medications Current Medications Acetaminophen (Tylenol Tab) 650 mg Q6H PRN PO PAIN AND OR ELEVATED TEMP; Start 12/29/16 at 10:30; Status Future Hold Diagnostic Test (Pha) (Accu-Chek) 1 ea 02 XX ; Start 12/30/16 at 02:00 Miscellaneous Information 1 ea NOTE XX ; Start 12/29/16 at 10:30 Glucose (Glutose) 15 gm Q15M PRN PO DECREASED GLUCOSE; Start 12/29/16 at 10:30 Glucose (Glutose) 22.5 gm Q15M PRN PO DECREASED GLUCOSE; Start 12/29/16 at 10:30 Dextrose (D50w Syringe) 25 ml Q15M PRN IV DECREASED GLUCOSE; Start 12/29/16 at 10:30 Dextrose (D50w Syringe) 50 ml Q15M PRN IV DECREASED GLUCOSE; Start 12/29/16 at 10:30 Glucagon (Glucagen) 1 mg Q15M PRN IM DECREASED GLUCOSE; Start 12/29/16 at 10:30 Glucose (Glutose) 15 gm Q15M PRN BUCCAL DECREASED GLUCOSE; Start 12/29/16 at 10: 30 Hydralazine HCl (Apresoline) 10 mg Q6H PRN IV sbp greater than 165 Last administered on 12/31/16 14:00; Admin Dose 10 MG; Start 12/29/16 at 10:30 Acetaminophen (Tylenol Tab) 650 mg Q6H PO Last administered on 01/01/17 17:33 ; Admin Dose 650 MG; Start 12/29/16 at 11:00 Amiodarone HCl (Cordarone) 100 mg DAILY PO Last administered on 01/01/17 08:37 ; Admin Dose 100 MG; Start 12/29/16 at 12:00 Gabapentin (Neurontin) 300 mg DAILY PO Last administered on 01/01/17 08:37; Admin Dose 300 MG; Start 12/29/16 at 12:00 Megestrol Acetate (Megace) 40 mg BID PO Last administered on 01/01/17 08:36; Admin Dose 40 MG; Start 12/29/16 at 12:00 Ondansetron HCl (Zofran Tab) 4 mg Q8 PO Last administered on 01/01/17 13:34; Admin Dose 4 MG; Start 12/29/16 at 14:00 Tamsulosin HCl (Flomax) 0.4 mg HS PO Last administered on 12/31/16 22:22; Admin Dose 0.4 MG; Start 12/29/16 at 21:00 Atorvastatin Calcium (Lipitor) 20 mg DAILY@21 PO Last administered on 22:22; Admin Dose 20 MG; Start 12/29/16 at 21:00 Hydralazine HCl 25 mg 25 mg Q8 PO Last administered on 01/01/17 13:34; Admin Dose 25 MG; Start 12/29/16 at 14:13 Ceftriaxone Sodium (Rocephin) 50 ml @ 100 mls/hr Q24H IVPB Last administered on 12/31/16 22:41; Admin Dose 100 MLS/HR; Start 12/29/16 at 21:30 Pantoprazole (Protonix Tab) 40 mg QAM PO Last administered on 01/01/17 08:36; Admin Dose 40 MG; Start 12/31/16 at 09:00 Docusate Sodium (Colace Liquid Cup) 100 mg Q12 GTB Last administered on t 08:37; Admin Dose 100 MG; Start 12/31/16 at 21:59 GEOVANY IBARRA January 01, 2017 18:17
[2017-01-01] MEDS: TAMSULOSIN (SR) 0.4 MG CAP PO SCH (21:43)
[2017-01-01] MEDS: ATORVASTATIN 20 MG TAB PO SCH (21:43)
[2017-01-01] MEDS: CEFTRIAXONE 1 GM/50 ML (PMX) 50 ML IVPB SCH (21:47)
[2017-01-02] VITALS (14 sets, daily range): BP systolic 133–182; BP diastolic 69–94; PULSE 80–84; RESP 16–17
[2017-01-02] MEDS: ALBUTEROL/IPRATROPIUM (NEB) 3 ML AMP HHN SCH ×6 (00:01→20:33)
[2017-01-02] MEDS: ACCU-CHEK XX SCH (01:57)
[2017-01-02] MEDS: ACETAMINOPHEN 325 MG TAB PO SCH ×3 (05:08→17:53)
[2017-01-02] MEDS: ONDANSETRON 4 MG TAB PO SCH ×2 (05:37→13:39)
[2017-01-02] MEDS: INSULIN ASPART [NOVOLOG] 3 ML PEN SC SCH ×3 (08:00→17:55)
[2017-01-02 08:04] LABS: ADD SCAN DIFF NO
[2017-01-02 08:10] LABS: BASOPHIL # 0.1 10^3/ul (0.0-0.1); BASOPHILS % 0.7 % (0.0-2.0); EOSINOPHILS # 1.1 10^3/ul (0.0-0.5); EOSINOPHILS % 8.7 % (0.0-7.0); HEMATOCRIT 25.2 % (42.0-52.0); HEMOGLOBIN 8.3 g/dl (14.0-18.0); LYMPHOCYTES # 1.4 10^3/ul (0.8-2.9); LYMPHOCYTES % 10.6 % (15.0-51.0); MEAN CORPUSCULAR HEMOGLOBIN 28.1 pg (29.0-33.0); MEAN CORPUSCULAR HGB CONC 32.9 g/dl (32.0-37.0); MEAN CORPUSCULAR VOLUME 85.4 fl (82.0-101.0); MEAN PLATELET VOLUME 10.4 fl (7.4-10.4); MONOCYTE # 0.8 10^3/ul (0.3-0.9); MONOCYTES % 5.9 % (0.0-11.0); NEUTROPHIL # 9.2 10^3/ul (1.6-7.5); NEUTROPHILS % 72.7 % (39.0-77.0); PLATELET COUNT 354 10^3/UL (140-415); RED BLOOD COUNT 2.95 10^6/ul (4.70-6.10); RED CELL DISTRIBUTION WIDTH 15.9 % (11.5-14.5); WHITE BLOOD COUNT 12.7 10^3/ul (4.8-10.8)
[2017-01-02 08:41] LABS: CALCIUM 8.2 mg/dl (8.4-10.2); CREATININE 2.49 mg/dl (0.61-1.24); POTASSIUM 3.7 mmol/L (3.5-5.1)
[2017-01-02] MEDS: PANTOPRAZOLE (EC) 40 MG TAB PO SCH (08:49)
[2017-01-02] MEDS: GABAPENTIN 300 MG CAP PO SCH (08:49)
[2017-01-02] MEDS: DOCUSATE SODIUM 10 MG/ML (10ML CUP) GTB SCH ×2 (08:49→20:49)
[2017-01-02] MEDS: MEGESTROL 40 MG TAB PO SCH ×2 (08:50→20:49)
[2017-01-02] MEDS: AMIODARONE 200 MG TAB PO SCH (08:53)
--- NOTE | 2017-01-02 11:33 | PN ---
Date/Time of Note Date/Time of Note DATE: 01/02/17 TIME: 11:33 Assessment/Plan VTE Prophylaxis VTE Prophylaxis Intervention: other Lines/Catheters IV C[facility]ter Type (from [facility] Saline Lock Urinary Cath still in place: Yes Reason Cath still needed: skin wounds contaminated by urine Assessment/Plan Chief Complaint/Hosp Course 1. Altered level of consciousness, most likely secondary to electrolyte imbalances secondary to metabolic encephalopathy. 2. Possible healthcare-acquired pneumonia. Continue patient on cefepime and vancomycin. 3. Systemic inflammatory response syndrome secondary to pneumonia. 4. Diastolic congestive heart failure. 5. Chronic kidney disease. 6. Hyperkalemia., Resolved. 7. Anemia, status post blood transfusion, continue to monitor hemoglobin and hematocrit. 8. Severe protein calorie malnutrition as evidenced by low albumin of 2.9. Dr. Cabral is following in gastroenterology consultation. Status G-tube placement. 9. History of cerebrovascular accident. 10. Hypertension. 11. History of paroxysmal atrial fibrillation. 12. Diabetes mellitus. Continue NovoLog per mild algorithm sliding scale. Problems: Subjective 24 Hr Interval Summary Free Text/Dictation Patient appears confused Exam/Review of Systems Vital Signs Vitals Vital Signs Date Time Temp Pulse Resp B/P Pulse Ox O2 Delivery O2 Flow Rate FiO2 01/02/17 08:45 Nasal Cannula 2.0 01/02/17 08:39 79 20 96 21 01/02/17 08:18 98.2 171/74 Intake and Output 01/01/17 01/01/17 01/02/17 15:00 23:00 07:00 Intake Total 400 ml 500 ml Output Total 550 ml 580 ml Balance -150 ml -80 ml Exam Constitutional: well developed Head: atraumatic, normocephalic Neck: supple Respiratory: clear to auscultation Cardiovascular: regular rate and rhythm Gastrointestinal: non-tender, soft Extremities: normal pulses Results Result Diagram: 01/02/17 0651 01/02/17 0651 Results 24 hrs Laboratory Tests Test 01/01/17 12:13 01/01/17 17:20 01/01/17 21:42 01/02/17 06:51 Bedside Glucose 162 145 118 White Blood Count 12.7 H Red Blood Count 2.95 L Hemoglobin 8.3 L Hematocrit 25.2 L Mean Corpuscular Volume 85.4 Mean Corpuscular Hemoglobin 28.1 L Mean Corpuscular Hemoglobin Concent 32.9 Red Cell Distribution Width 15.9 H Platelet Count 354 Mean Platelet Volume 10.4 Neutrophils % 72.7 Lymphocytes % 10.6 L Monocytes % 5.9 Eosinophils % 8.7 H Basophils % 0.7 Nucleated Red Blood Cells % 0.0 Neutrophils # 9.2 H Lymphocytes # 1.4 Monocytes # 0.8 Eosinophils # 1.1 H Basophils # 0.1 Nucleated Red Blood Cells # 0.0 Sodium Level 138 Potassium Level 3.7 Chloride Level 111 H Carbon Dioxide Level 21 Anion Gap 10 Blood Urea Nitrogen 30 H Creatinine 2.49 H Glucose Level 126 Calcium Level 8.2 L Test 01/02/17 08:48 Bedside Glucose 128 Medications Medications Current Medications Acetaminophen (Tylenol Tab) 650 mg Q6H PRN PO PAIN AND OR ELEVATED TEMP; Start 12/29/16 at 10:30; Status Future Hold Diagnostic Test (Pha) (Accu-Chek) 1 ea 02 XX Last administered on 01/02/17 01: 57; Admin Dose 1 EA; Start 12/30/16 at 02:00 Miscellaneous Information 1 ea NOTE XX ; Start 12/29/16 at 10:30 Glucose (Glutose) 15 gm Q15M PRN PO DECREASED GLUCOSE; Start 12/29/16 at 10:30 Glucose (Glutose) 22.5 gm Q15M PRN PO DECREASED GLUCOSE; Start 12/29/16 at 10:30 Dextrose (D50w Syringe) 25 ml Q15M PRN IV DECREASED GLUCOSE; Start 12/29/16 at 10:30 Dextrose (D50w Syringe) 50 ml Q15M PRN IV DECREASED GLUCOSE; Start 12/29/16 at 10:30 Glucagon (Glucagen) 1 mg Q15M PRN IM DECREASED GLUCOSE; Start 12/29/16 at 10:30 Glucose (Glutose) 15 gm Q15M PRN BUCCAL DECREASED GLUCOSE; Start 12/29/16 at 10: 30 Hydralazine HCl (Apresoline) 10 mg Q6H PRN IV sbp greater than 165 Last administered on 12/31/16 14:00; Admin Dose 10 MG; Start 12/29/16 at 10:30 Acetaminophen (Tylenol Tab) 650 mg Q6H PO Last administered on 01/02/17 05:08 ; Admin Dose 650 MG; Start 12/29/16 at 11:00 Amiodarone HCl (Cordarone) 100 mg DAILY PO Last administered on 01/02/17 08:53 ; Admin Dose 100 MG; Start 12/29/16 at 12:00 Gabapentin (Neurontin) 300 mg DAILY PO Last administered on 01/02/17 08:49; Admin Dose 300 MG; Start 12/29/16 at 12:00 Megestrol Acetate (Megace) 40 mg BID PO Last administered on 01/02/17 08:50; Admin Dose 40 MG; Start 12/29/16 at 12:00 Ondansetron HCl (Zofran Tab) 4 mg Q8 PO Last administered on 01/02/17 05:37; Admin Dose 4 MG; Start 12/29/16 at 14:00 Tamsulosin HCl (Flomax) 0.4 mg HS PO Last administered on 01/01/17 21:43; Admin Dose 0.4 MG; Start 12/29/16 at 21:00 Atorvastatin Calcium (Lipitor) 20 mg DAILY@21 PO Last administered on 21:43; Admin Dose 20 MG; Start 12/29/16 at 21:00 Hydralazine HCl 25 mg 25 mg Q8 PO Last administered on 01/02/17 05:33; Admin Dose 25 MG; Start 12/29/16 at 14:13 Ceftriaxone Sodium (Rocephin) 50 ml @ 100 mls/hr Q24H IVPB Last administered on 01/01/17 21:47; Admin Dose 100 MLS/HR; Start 12/29/16 at 21:30 Pantoprazole (Protonix Tab) 40 mg QAM PO Last administered on 01/02/17 08:49; Admin Dose 40 MG; Start 12/31/16 at 09:00 Docusate Sodium (Colace Liquid Cup) 100 mg Q12 GTB Last administered on 08:49; Admin Dose 100 MG; Start 12/31/16 at 21:59 AURA CALL January 02, 2017 11:33
--- NOTE | 2017-01-02 13:48 | CONS ---
Date/Time of Note Date/Time of Note DATE: 01/02/17 TIME: 13:47 Assessment/Plan Assessment/Plan Additional Assessment/Plan Additional Assessment/Plan IMPRESSION: 1. Dysphagia. Status post PEG 2. Prerenal azotemia. 3. History of hypertension. 4. Cerebrovascular accident. 5. Chronic kidney disease. 6. Cachexia and malnutrition. 7. Diabetes mellitus. 8. Paroxysmal atrial fibrillation. Plan Increase feeding slowly Consultation Date/Type/Reason Admit Date/Time December 29, 2016 at 04:03 Type of Consultation: renal 24 HR Interval Summary Constitutional: improved, no complaints Exam/Review of Systems Vital Signs Vitals Vital Signs Date Time Temp Pulse Resp B/P Pulse Ox O2 Delivery O2 Flow Rate FiO2 01/02/17 13:11 83 01/02/17 13:01 20 97 21 01/02/17 12:17 98.2 182/84 01/02/17 08:45 Nasal Cannula 2.0 Intake and Output 01/01/17 01/01/17 01/02/17 15:00 23:00 07:00 Intake Total 400 ml 500 ml Output Total 550 ml 580 ml Balance -150 ml -80 ml Exam Constitutional: alert, oriented, well developed Psych: nl mood/affect, no complaints Head: atraumatic, normocephalic Eyes: EOMI, PERRL, nl conjunctiva, nl lids, nl sclera ENMT: nl external ears & nose, nl lips & teeth, nl nasal mucosa & septum Neck: non-tender, supple Respiratory: clear to auscultation, normal air movement Cardiovascular: nl pulses, regular rate and rhythm Gastrointestinal: nl liver, spleen, non-tender, soft Musculoskeletal: nl extremities to inspection, nl gait and stance Extremities: normal pulses 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9 Eosinophils % 8.7 H Basophils % 0.7 Nucleated Red Blood Cells % 0.0 Neutrophils # 9.2 H Lymphocytes # 1.4 Monocytes # 0.8 Eosinophils # 1.1 H Basophils # 0.1 Nucleated Red Blood Cells # 0.0 Sodium Level 138 Potassium Level 3.7 Chloride Level 111 H Carbon Dioxide Level 21 Anion Gap 10 Blood Urea Nitrogen 30 H Creatinine 2.49 H Glucose Level 126 Calcium Level 8.2 L Test 01/02/17 11:40 Bedside Glucose 138 Medications Medications Current Medications Acetaminophen (Tylenol Tab) 650 mg Q6H PRN PO PAIN AND OR ELEVATED TEMP; Start 12/29/16 at 10:30; Status Future Hold Diagnostic Test (Pha) (Accu-Chek) 1 ea 02 XX Last administered on 01/02/17 01: 57; Admin Dose 1 EA; Start 12/30/16 at 02:00 Miscellaneous Information 1 ea NOTE XX ; Start 12/29/16 at 10:30 Glucose (Glutose) 15 gm Q15M PRN PO DECREASED GLUCOSE; Start 12/29/16 at 10:30 Glucose (Glutose) 22.5 gm Q15M PRN PO DECREASED GLUCOSE; Start 12/29/16 at 10:30 Dextrose (D50w Syringe) 25 ml Q15M PRN IV DECREASED GLUCOSE; Start 12/29/16 at 10:30 Dextrose (D50w Syringe) 50 ml Q15M PRN IV DECREASED GLUCOSE; Start 12/29/16 at 10:30 Glucagon (Glucagen) 1 mg Q15M PRN IM DECREASED GLUCOSE; Start 12/29/16 at 10:30 Glucose (Glutose) 15 gm Q15M PRN BUCCAL DECREASED GLUCOSE; Start 12/29/16 at 10: 30 Hydralazine HCl (Apresoline) 10 mg Q6H PRN IV sbp greater than 165 Last administered on 12/31/16 14:00; Admin Dose 10 MG; Start 12/29/16 at 10:30 Acetaminophen (Tylenol Tab) 650 mg Q6H PO Last administered on 01/02/17 11:39 ; Admin Dose 650 MG; Start 12/29/16 at 11:00 Amiodarone HCl (Cordarone) 100 mg DAILY PO Last administered on 01/02/17 08:53 ; Admin Dose 100 MG; Start 12/29/16 at 12:00 Gabapentin (Neurontin) 300 mg DAILY PO Last administered on 01/02/17 08:49; Admin Dose 300 MG; Start 12/29/16 at 12:00 Megestrol Acetate (Megace) 40 mg BID PO Last administered on 01/02/17 08:50; Admin Dose 40 MG; Start 12/29/16 at 12:00 Ondansetron HCl (Zofran Tab) 4 mg Q8 PO Last administered on 01/02/17 13:39; Admin Dose 4 MG; Start 12/29/16 at 14:00 Tamsulosin HCl (Flomax) 0.4 mg HS PO Last administered on 01/01/17 21:43; Admin Dose 0.4 MG; Start 12/29/16 at 21:00 Atorvastatin Calcium (Lipitor) 20 mg DAILY@21 PO Last administered on 21:43; Admin Dose 20 MG; Start 12/29/16 at 21:00 Hydralazine HCl 25 mg 25 mg Q8 PO Last administered on 01/02/17 13:39; Admin Dose 25 MG; Start 12/29/16 at 14:13 Ceftriaxone Sodium (Rocephin) 50 ml @ 100 mls/hr Q24H IVPB Last administered on 01/01/17 21:47; Admin Dose 100 MLS/HR; Start 12/29/16 at 21:30 Pantoprazole (Protonix Tab) 40 mg QAM PO Last administered on 01/02/17 08:49; Admin Dose 40 MG; Start 12/31/16 at 09:00 Docusate Sodium (Colace Liquid Cup) 100 mg Q12 GTB Last administered on 08:49; Admin Dose 100 MG; Start 12/31/16 at 21:59 JEFRY CERNA MD January 02, 2017 13:47
[2017-01-02] MEDS: hydrALAzine 20 MG INJ IV PRN ×2 (15:17→22:56)
--- NOTE | 2017-01-02 15:35 | PN ---
Date/Time of Note Date/Time of Note DATE: 01/02/17 TIME: 15:33 Assessment/Plan VTE Prophylaxis VTE Prophylaxis Intervention: SCD's Lines/Catheters [facility] Urinary Cath still in place: Yes Reason Cath still needed: urinary retention Assessment/Plan Chief Complaint/Hosp Course 1. Dysphagia. Status post PEG 2. Prerenal azotemia. 3. History of hypertension. 4. Cerebrovascular accident. 5. Chronic kidney disease. 6. Cachexia and malnutrition. 7. Diabetes mellitus. 8. Paroxysmal atrial fibrillation. Problems: Assessment/Plan 1. Elevated WBC despite antibiotic therapy 2. Consult Dr Dawson Subjective 24 Hr Interval Summary Constitutional: requiring O2 Eyes: no complaints Gastrointestinal: no complaints Genitourinary: no complaints Exam/Review of Systems Vital Signs Vitals Vital Signs Date Time Temp Pulse Resp B/P Pulse Ox O2 Delivery O2 Flow Rate FiO2 01/02/17 13:53 169/79 01/02/17 13:11 83 01/02/17 13:01 20 97 21 01/02/17 12:17 98.2 01/02/17 08:45 Nasal Cannula 2.0 Intake and Output 01/01/17 01/01/17 01/02/17 15:00 23:00 07:00 Intake Total 400 ml 500 ml Output Total 550 ml 580 ml Balance -150 ml -80 ml Exam Constitutional: alert Psych: no complaints Eyes: nl conjunctiva ENMT: nl external ears & nose Neck: supple Respiratory: clear to auscultation Cardiovascular: regular rate and rhythm Results Result Diagram: 01/02/17 0651 01/02/17 0651 Results 24 hrs Laboratory Tests Test 01/01/17 17:20 01/01/17 21:42 01/02/17 06:51 01/02/17 08:48 Bedside Glucose 145 118 128 White Blood Count 12.7 H Red Blood Count 2.95 L Hemoglobin 8.3 L Hematocrit 25.2 L Mean Corpuscular Volume 85.4 Mean Corpuscular Hemoglobin 28.1 L Mean Corpuscular Hemoglobin Concent 32.9 Red Cell Distribution Width 15.9 H Platelet Count 354 Mean Platelet Volume 10.4 Neutrophils % 72.7 Lymphocytes % 10.6 L Monocytes % 5.9 Eosinophils % 8.7 H Basophils % 0.7 Nucleated Red Blood Cells % 0.0 Neutrophils # 9.2 H Lymphocytes # 1.4 Monocytes # 0.8 Eosinophils # 1.1 H Basophils # 0.1 Nucleated Red Blood Cells # 0.0 Sodium Level 138 Potassium Level 3.7 Chloride Level 111 H Carbon Dioxide Level 21 Anion Gap 10 Blood Urea Nitrogen 30 H Creatinine 2.49 H Glucose Level 126 Calcium Level 8.2 L Test 01/02/17 11:40 Bedside Glucose 138 Medications Medications Current Medications Acetaminophen (Tylenol Tab) 650 mg Q6H PRN PO PAIN AND OR ELEVATED TEMP; Start 12/29/16 at 10:30; Status Future Hold Diagnostic Test (Pha) (Accu-Chek) 1 ea 02 XX Last administered on 01/02/17 01: 57; Admin Dose 1 EA; Start 12/30/16 at 02:00 Miscellaneous Information 1 ea NOTE XX ; Start 12/29/16 at 10:30 Glucose (Glutose) 15 gm Q15M PRN PO DECREASED GLUCOSE; Start 12/29/16 at 10:30 Glucose (Glutose) 22.5 gm Q15M PRN PO DECREASED GLUCOSE; Start 12/29/16 at 10:30 Dextrose (D50w Syringe) 25 ml Q15M PRN IV DECREASED GLUCOSE; Start 12/29/16 at 10:30 Dextrose (D50w Syringe) 50 ml Q15M PRN IV DECREASED GLUCOSE; Start 12/29/16 at 10:30 Glucagon (Glucagen) 1 mg Q15M PRN IM DECREASED GLUCOSE; Start 12/29/16 at 10:30 Glucose (Glutose) 15 gm Q15M PRN BUCCAL DECREASED GLUCOSE; Start 12/29/16 at 10: 30 Hydralazine HCl (Apresoline) 10 mg Q6H PRN IV sbp greater than 165 Last administered on 01/02/17 15:17; Admin Dose 10 MG; Start 12/29/16 at 10:30 Acetaminophen (Tylenol Tab) 650 mg Q6H PO Last administered on 01/02/17 11:39 ; Admin Dose 650 MG; Start 12/29/16 at 11:00 Amiodarone HCl (Cordarone) 100 mg DAILY PO Last administered on 01/02/17 08:53 ; Admin Dose 100 MG; Start 12/29/16 at 12:00 Gabapentin (Neurontin) 300 mg DAILY PO Last administered on 01/02/17 08:49; Admin Dose 300 MG; Start 12/29/16 at 12:00 Megestrol Acetate (Megace) 40 mg BID PO Last administered on 01/02/17 08:50; Admin Dose 40 MG; Start 12/29/16 at 12:00 Ondansetron HCl (Zofran Tab) 4 mg Q8 PO Last administered on 01/02/17 13:39; Admin Dose 4 MG; Start 12/29/16 at 14:00 Tamsulosin HCl (Flomax) 0.4 mg HS PO Last administered on 01/01/17 21:43; Admin Dose 0.4 MG; Start 12/29/16 at 21:00 Atorvastatin Calcium (Lipitor) 20 mg DAILY@21 PO Last administered on 21:43; Admin Dose 20 MG; Start 12/29/16 at 21:00 Hydralazine HCl 25 mg 25 mg Q8 PO Last administered on 01/02/17 13:39; Admin Dose 25 MG; Start 12/29/16 at 14:13 Ceftriaxone Sodium (Rocephin) 50 ml @ 100 mls/hr Q24H IVPB Last administered on 01/01/17 21:47; Admin Dose 100 MLS/HR; Start 12/29/16 at 21:30 Pantoprazole (Protonix Tab) 40 mg QAM PO Last administered on 01/02/17 08:49; Admin Dose 40 MG; Start 12/31/16 at 09:00 Docusate Sodium (Colace Liquid Cup) 100 mg Q12 GTB Last administered on 08:49; Admin Dose 100 MG; Start 12/31/16 at 21:59 CHELSIE HERNÁNDEZ January 02, 2017 15:35
[2017-01-02] MEDS: ATORVASTATIN 20 MG TAB PO SCH (20:49)
[2017-01-02] MEDS: CEFEPIME 1GM/50 ML (PMX) 50 ML IVPB SCH (20:49)
[2017-01-02] MEDS: TAMSULOSIN (SR) 0.4 MG CAP PO SCH (20:49)
[2017-01-02] MEDS ORDERED: CEFEPIME 1GM/50 ML (PMX) 50 ML IVPB SCH (21:00)
[2017-01-02] MEDS ORDERED: INSULIN ASPART [NOVOLOG] 3 ML PEN SC SCH (21:00)
--- NOTE | 2017-01-02 21:08 | CONS ---
DATE OF ADMISSION: 12/29/2016 DATE OF CONSULTATION: 01/02/2017 REASON FOR CONSULTATION: Antibiotic management. HISTORY OF PRESENT ILLNESS: Mr. Duran is a 71-year-old male who comes in with altered mental status and is being seen for antibiotic management. His past problems include: 1. Paroxysmal atrial fibrillation. 2. Hypertension. 3. Adult-onset diabetes mellitus. 4. History of cerebrovascular accident with lower extremity weakness. 5. Gastrointestinal bleed. 6. Chronic renal disease. Patient was noted to have altered mental status. He was hyperkalemic with potassium of 6.8 and was given Kayexalate. A CT scan of the brain showed no intracranial hemorrhage and no significant inter sera change compared to a study in 10/2016, which showed old lacunar infarcts within the right pelvis and left retana radiata. The patient underwent chest x-ray, which showed left lower lobe infiltrat e, otherwise stable exam. He was started on vancomycin and cefepime for healthcare-associated pneum onia, and was admitted on for further evaluation. On admission, his white count was 16,000, H a nd H 7.9 and 24.6, platelet count 378,000. BUN and creatinine were 51/4.63. The patient was noted to have altered levels of consciousness as noted. PAST MEDICAL HISTORY: As outlined. PAST SURGICAL HISTORY: Status post hip surgery. FAMILY HISTORY: Noncontributory. SOCIAL HISTORY: Lives in a [facility] facility. No recent history of alcohol, tobacco, or taty g use. ALLERGIES: NONE TO PENICILLIN, SULFA, OR FOODS. MEDICATIONS: Per chart. REVIEW OF SYSTEMS: As per HPI. PHYSICAL EXAMINATION: GENERAL: The patient is a cachectic, elderly, and fragile male who is awake, responsive only to his name. VITAL SIGNS: Stable. He is afebrile. SKIN: Without generalized rash. He has a small stage II sacral ulcer. HEENT: Within normal limits. NECK: Supple. LYMPH NODES: None palpable. CHEST: Decreased breath sounds at the bases. HEART: Without murmur or gallop. ABDOMEN: Soft, nontender, without organosplenomegaly or masses. EXTREMITIES: Without cyanosis, clubbing, or edema. RECTAL AND GENITAL: Deferred. NEUROLOGIC: The patient is confused. He has bilateral lower extremity weakness, but was able to am bulate using a walker in his [facility] facility. HOSPITAL COURSE: The patient was seen by multiple physicians. He was seen by Dr. Cabral, who noted dysphagia, hypertension, CVA in the past, cachexia. Recommendation was to place a G-tube for morph ine. He was seen by Dr. Wilkes from cardiology in evaluation. He has sinus rhythm with first degre e AV block with premature atrial complexes. A GI procedure/G-tube placement was done by Dr. Cabral on the . Patient had a catheter placed for urinary retention. He is on vancomycin and cefepime for possible healthcare-acquired pneumonia. He still has electrolyte imbalances secondary to metab olic encephalopathy. He has severe protein calorie malnutrition, history of cerebrovascular acciden ts. He has an elevated white count despite antibiotic therapy, and infectious disease consultation was obtained. He still has a PEG placed and is currently on ceftriaxone. IMPRESSION AND PLAN: The patient comes from a [facility] facility and therefore his initial th erapy with vancomycin and cefepime was appropriate. We will repeat chest x-ray. He has a barium sw allow that was ordered. We will order a chest x-ray, 2 sets of blood cultures, urinalysis and cultu re, and put him back on cefepime. I will dictate my findings to Dr. aPtel, Dr. Cabral, Dr. Cheema . Dictated By: NUBIA PUGH MD, JD/INOCENCIO Conf#: [id number] DID#: [id number]
[2017-01-02] MEDS: ONDANSETRON 4 MG TAB GTB SCH (22:53)
[2017-01-02] MEDS ORDERED: ACETAMINOPHEN 650MG/20.3ML CUP GTB PRN (23:00)
[2017-01-03] VITALS (12 sets, daily range): BP systolic 146–174; BP diastolic 66–82; PULSE 86–94; RESP 16–18
[2017-01-03] MEDS: ALBUTEROL/IPRATROPIUM (NEB) 3 ML AMP HHN SCH ×6 (01:02→20:00)
[2017-01-03] MEDS: ONDANSETRON 4 MG TAB GTB SCH ×3 (05:28→21:58)
[2017-01-03] MEDS: hydrALAzine 20 MG INJ IV PRN ×2 (05:33→14:42)
[2017-01-03] MEDS: INSULIN ASPART [NOVOLOG] 3 ML PEN SC SCH ×5 (05:40→23:58)
[2017-01-03] MEDS: PANTOPRAZOLE (EC) 40 MG TAB PO SCH (08:09)
[2017-01-03] MEDS: DOCUSATE SODIUM 10 MG/ML (10ML CUP) GTB SCH ×2 (08:09→21:00)
[2017-01-03] MEDS: GABAPENTIN 300 MG CAP PO SCH (08:10)
[2017-01-03] MEDS: MEGESTROL 40 MG TAB PO SCH ×2 (08:10→21:00)
[2017-01-03] MEDS: AMIODARONE 200 MG TAB PO SCH (08:10)
--- NOTE | 2017-01-03 11:53 | PN ---
Date/Time of Note Date/Time of Note DATE: 01/03/17 TIME: 11:52 Assessment/Plan VTE Prophylaxis VTE Prophylaxis Intervention: other Lines/Catheters IV Catheter Type (from Nrs): Saline Lock Urinary Cath still in place: Yes Reason Cath still needed: skin wounds contaminated by urine Assessment/Plan Chief Complaint/Hosp Course 1. Altered level of consciousness, most likely secondary to electrolyte imbalances secondary to metabolic encephalopathy. 2. Possible healthcare-acquired pneumonia. Continue patient on cefepime and vancomycin. 3. Systemic inflammatory response syndrome secondary to pneumonia. 4. Diastolic congestive heart failure. 5. Chronic kidney disease. 6. Hyperkalemia., Resolved. 7. Anemia, status post blood transfusion, continue to monitor hemoglobin and hematocrit. 8. Severe protein calorie malnutrition as evidenced by low albumin of 2.9. Dr. Cabral is following in gastroenterology consultation. Status G-tube placement. 9. History of cerebrovascular accident. 10. Hypertension. 11. History of paroxysmal atrial fibrillation. 12. Diabetes mellitus. Continue NovoLog per mild algorithm sliding scale. Problems: Subjective 24 Hr Interval Summary Free Text/Dictation Patient appears to be more awake Exam/Review of Systems Vital Signs Vitals Vital Signs Date Time Temp Pulse Resp B/P Pulse Ox O2 Delivery O2 Flow Rate FiO2 01/03/17 08:33 79 20 94 21 01/03/17 07:36 98.2 146/66 01/02/17 20:50 Nasal Cannula 2.0 Intake and Output 01/02/17 01/02/17 01/03/17 15:00 23:00 07:00 Intake Total 610 ml 490 ml Output Total 600 ml 450 ml Balance 10 ml 40 ml Exam Constitutional: well developed Head: atraumatic, normocephalic Neck: supple Respiratory: clear to auscultation Cardiovascular: regular rate and rhythm Gastrointestinal: non-tender, soft Extremities: normal pulses Results Result Diagram: 01/02/17 0651 01/02/17 0651 Results 24 hrs Laboratory Tests Test 01/02/17 17:55 01/02/17 23:26 01/03/17 05:38 01/03/17 11:36 Bedside Glucose 121 120 125 147 Medications Medications Current Medications Acetaminophen (Tylenol Tab) 650 mg Q6H PRN PO PAIN AND OR ELEVATED TEMP; Start 12/29/16 at 10:30; Status Future Hold Miscellaneous Information 1 ea NOTE XX ; Start 12/29/16 at 10:30 Glucose (Glutose) 15 gm Q15M PRN PO DECREASED GLUCOSE; Start 12/29/16 at 10:30 Glucose (Glutose) 22.5 gm Q15M PRN PO DECREASED GLUCOSE; Start 12/29/16 at 10:30 Dextrose (D50w Syringe) 25 ml Q15M PRN IV DECREASED GLUCOSE; Start 12/29/16 at 10:30 Dextrose (D50w Syringe) 50 ml Q15M PRN IV DECREASED GLUCOSE; Start 12/29/16 at 10:30 Glucagon (Glucagen) 1 mg Q15M PRN IM DECREASED GLUCOSE; Start 12/29/16 at 10:30 Glucose (Glutose) 15 gm Q15M PRN BUCCAL DECREASED GLUCOSE; Start 12/29/16 at 10: 30 Hydralazine HCl (Apresoline) 10 mg Q6H PRN IV sbp greater than 165 Last administered on 01/03/17 05:33; Admin Dose 10 MG; Start 12/29/16 at 10:30 Amiodarone HCl (Cordarone) 100 mg DAILY PO Last administered on 01/03/17 08:10 ; Admin Dose 100 MG; Start 12/29/16 at 12:00 Gabapentin (Neurontin) 300 mg DAILY PO Last administered on 01/03/17 08:10; Admin Dose 300 MG; Start 12/29/16 at 12:00 Megestrol Acetate (Megace) 40 mg BID PO Last administered on 01/03/17 08:10; Admin Dose 40 MG; Start 12/29/16 at 12:00 Tamsulosin HCl (Flomax) 0.4 mg HS PO Last administered on 01/02/17 20:49; Admin Dose 0.4 MG; Start 12/29/16 at 21:00 Atorvastatin Calcium (Lipitor) 20 mg DAILY@21 PO Last administered on 20:49; Admin Dose 20 MG; Start 12/29/16 at 21:00 Pantoprazole (Protonix Tab) 40 mg QAM PO Last administered on 01/03/17 08:09; Admin Dose 40 MG; Start 12/31/16 at 09:00 Docusate Sodium 100 mg 100 mg Q12 GTB Last administered on 01/03/17 08:09; Admin Dose 100 MG; Start 12/31/16 at 21:59 Cefepime HCl (Maxipime 1gm/50 ml (Pmx)) 50 ml @ 100 mls/hr Q24H IVPB Last administered on 01/02/17 20:49; Admin Dose 100 MLS/HR; Start 01/02/17 at 20:00 Insulin Aspart (Novolog Insulin Pen) NOVOLOG *MILD* ALGORI... Q6 SC Last administered on 01/03/17 11:46; Admin Dose 1 UNIT; Start 01/03/17 at 00:00 Hydralazine HCl (Apresoline) 25 mg Q8 GTB Last administered on 01/03/17 05:30 ; Admin Dose 25 MG; Start 01/02/17 at 22:45 Ondansetron HCl (Zofran Tab) 4 mg Q8 GTB Last administered on 01/03/17 05:28; Admin Dose 4 MG; Start 01/02/17 at 22:50 Acetaminophen (Tylenol Liquid) 650 mg Q6 PRN GTB PAIN AND OR ELEVATED TEMP; Start 01/02/17 at 23:00 AURA CALL January 03, 2017 11:53
--- NOTE | 2017-01-03 14:29 | CONS ---
Date/Time of Note Date/Time of Note DATE: 01/03/17 TIME: 14:29 Assessment/Plan Assessment/Plan Additional Assessment/Plan Additional Assessment/Plan Additional Assessment/Plan IMPRESSION: 1. Dysphagia. Status post PEG 2. Prerenal azotemia. 3. History of hypertension. 4. Cerebrovascular accident. 5. Chronic kidney disease. 6. Cachexia and malnutrition. 7. Diabetes mellitus. 8. Paroxysmal atrial fibrillation. Plan Increase feeding slowly Consultation Date/Type/Reason Admit Date/Time December 29, 2016 at 04:03 Type of Consultation: renal 24 HR Interval Summary Constitutional: no complaints Exam/Review of Systems Vital Signs Vitals Vital Signs Date Time Temp Pulse Resp B/P Pulse Ox O2 Delivery O2 Flow Rate FiO2 01/03/17 13:32 83 18 95 21 01/03/17 12:00 98.6 174/82 01/02/17 20:50 Nasal Cannula 2.0 Intake and Output 01/02/17 01/02/17 01/03/17 15:00 23:00 07:00 Intake Total 610 ml 490 ml Output Total 600 ml 450 ml Balance 10 ml 40 ml Exam Constitutional: alert, oriented, well developed Psych: nl mood/affect, no complaints Head: atraumatic, normocephalic Eyes: EOMI, PERRL, nl conjunctiva, nl lids, nl sclera ENMT: nl external ears & nose, nl lips & teeth, nl nasal mucosa & septum Neck: non-tender, supple Respiratory: clear to auscultation, normal air movement Cardiovascular: nl pulses, regular rate and rhythm Gastrointestinal: nl liver, spleen, non-tender, soft Musculoskeletal: nl extremities to inspection, nl gait and stance Extremities: normal pulses 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, nl mental status, nl speech, nl strength Skin: nl turgor, No rash or lesions Lymph: nl lymph nodes Results Result Diagram: 01/02/17 0651 01/02/17 0651 Results 24 hrs Laboratory Tests Test 01/02/17 17:55 01/02/17 23:26 01/03/17 05:38 01/03/17 11:36 Bedside Glucose 121 120 125 147 Medications Medications Current Medications Acetaminophen (Tylenol Tab) 650 mg Q6H PRN PO PAIN AND OR ELEVATED TEMP; Start 12/29/16 at 10:30; Status Future Hold Miscellaneous Information 1 ea NOTE XX ; Start 12/29/16 at 10:30 Glucose (Glutose) 15 gm Q15M PRN PO DECREASED GLUCOSE; Start 12/29/16 at 10:30 Glucose (Glutose) 22.5 gm Q15M PRN PO DECREASED GLUCOSE; Start 12/29/16 at 10:30 Dextrose (D50w Syringe) 25 ml Q15M PRN IV DECREASED GLUCOSE; Start 12/29/16 at 10:30 Dextrose (D50w Syringe) 50 ml Q15M PRN IV DECREASED GLUCOSE; Start 12/29/16 at 10:30 Glucagon (Glucagen) 1 mg Q15M PRN IM DECREASED GLUCOSE; Start 12/29/16 at 10:30 Glucose (Glutose) 15 gm Q15M PRN BUCCAL DECREASED GLUCOSE; Start 12/29/16 at 10: 30 Hydralazine HCl (Apresoline) 10 mg Q6H PRN IV sbp greater than 165 Last administered on 01/03/17 05:33; Admin Dose 10 MG; Start 12/29/16 at 10:30 Amiodarone HCl (Cordarone) 100 mg DAILY PO Last administered on 01/03/17 08:10 ; Admin Dose 100 MG; Start 12/29/16 at 12:00 Gabapentin (Neurontin) 300 mg DAILY PO Last administered on 01/03/17 08:10; Admin Dose 300 MG; Start 12/29/16 at 12:00 Megestrol Acetate (Megace) 40 mg BID PO Last administered on 01/03/17 08:10; Admin Dose 40 MG; Start 12/29/16 at 12:00 Tamsulosin HCl (Flomax) 0.4 mg HS PO Last administered on 01/02/17 20:49; Admin Dose 0.4 MG; Start 12/29/16 at 21:00 Atorvastatin Calcium (Lipitor) 20 mg DAILY@21 PO Last administered on 20:49; Admin Dose 20 MG; Start 12/29/16 at 21:00 Pantoprazole (Protonix Tab) 40 mg QAM PO Last administered on 01/03/17 08:09; Admin Dose 40 MG; Start 12/31/16 at 09:00 Docusate Sodium 100 mg 100 mg Q12 GTB Last administered on 01/03/17 08:09; Admin Dose 100 MG; Start 12/31/16 at 21:59 Cefepime HCl (Maxipime 1gm/50 ml (Pmx)) 50 ml @ 100 mls/hr Q24H IVPB Last administered on 01/02/17 20:49; Admin Dose 100 MLS/HR; Start 01/02/17 at 20:00 Insulin Aspart (Novolog Insulin Pen) NOVOLOG *MILD* ALGORI... Q6 SC Last administered on 01/03/17 11:46; Admin Dose 1 UNIT; Start 01/03/17 at 00:00 Hydralazine HCl (Apresoline) 25 mg Q8 GTB Last administered on 01/03/17 13:15 ; Admin Dose 25 MG; Start 01/02/17 at 22:45 Ondansetron HCl (Zofran Tab) 4 mg Q8 GTB Last administered on 01/03/17 13:15; Admin Dose 4 MG; Start 01/02/17 at 22:50 Acetaminophen (Tylenol Liquid) 650 mg Q6 PRN GTB PAIN AND OR ELEVATED TEMP; Start 01/02/17 at 23:00 JEFRY CERNA MD January 03, 2017 14:29
--- NOTE | 2017-01-03 17:07 | PN ---
Date/Time of Note Date/Time of Note DATE: 01/03/17 TIME: 17:06 Assessment/Plan VTE Prophylaxis VTE Prophylaxis Intervention: other Lines/Catheters [facility] Saline Lock Urinary Cath still in place: Yes Reason Cath still needed: other (indicate) Assessment/Plan Chief Complaint/Hosp Course IMPRESSION: 1. Patient has fdaer-il-cqecsma kidney disease. 2. Hyperkalemia.BETTER 3. Hypertension. 4. Diabetes mellitus. 5. Uremia. 6. Metabolic acidosis. 7. Leukocytosis. 8. Systemic inflammatory response syndrome. 9. The patient has incomplete database. 10. History of cerebrovascular accident. 11. History of gastrointestinal bleed. 12. History of pneumonia. 13 S/P PEG plan ck bmp Problems: Subjective 24 Hr Interval Summary Cardiovascular: no complaints Gastrointestinal: no complaints Exam/Review of Systems Vital Signs Vitals Vital Signs Date Time Temp Pulse Resp B/P Pulse Ox O2 Delivery O2 Flow Rate FiO2 01/03/17 16:04 98.2 87 16 156/72 96 01/03/17 13:32 21 01/02/17 20:50 Nasal Cannula 2.0 Intake and Output 01/02/17 01/02/17 01/03/17 15:00 23:00 07:00 Intake Total 610 ml 490 ml Output Total 600 ml 450 ml Balance 10 ml 40 ml Exam Respiratory: clear to auscultation Cardiovascular: regular rate and rhythm Gastrointestinal: soft Musculoskeletal: nl extremities to inspection Extremities: normal pulses Results Result Diagram: 01/02/17 0651 01/02/17 0651 Results 24 hrs Laboratory Tests Test 01/02/17 17:55 01/02/17 23:26 01/03/17 05:38 01/03/17 11:36 Bedside Glucose 121 120 125 147 Medications Medications Current Medications Acetaminophen (Tylenol Tab) 650 mg Q6H PRN PO PAIN AND OR ELEVATED TEMP; Start 12/29/16 at 10:30; Status Future Hold Miscellaneous Information 1 ea NOTE XX ; Start 12/29/16 at 10:30 Glucose (Glutose) 15 gm Q15M PRN PO DECREASED GLUCOSE; Start 12/29/16 at 10:30 Glucose (Glutose) 22.5 gm Q15M PRN PO DECREASED GLUCOSE; Start 12/29/16 at 10:30 Dextrose (D50w Syringe) 25 ml Q15M PRN IV DECREASED GLUCOSE; Start 12/29/16 at 10:30 Dextrose (D50w Syringe) 50 ml Q15M PRN IV DECREASED GLUCOSE; Start 12/29/16 at 10:30 Glucagon (Glucagen) 1 mg Q15M PRN IM DECREASED GLUCOSE; Start 12/29/16 at 10:30 Glucose (Glutose) 15 gm Q15M PRN BUCCAL DECREASED GLUCOSE; Start 12/29/16 at 10: 30 Hydralazine HCl (Apresoline) 10 mg Q6H PRN IV sbp greater than 165 Last administered on 01/03/17 14:42; Admin Dose 10 MG; Start 12/29/16 at 10:30 Amiodarone HCl (Cordarone) 100 mg DAILY PO Last administered on 01/03/17 08:10 ; Admin Dose 100 MG; Start 12/29/16 at 12:00 Gabapentin (Neurontin) 300 mg DAILY PO Last administered on 01/03/17 08:10; Admin Dose 300 MG; Start 12/29/16 at 12:00 Megestrol Acetate (Megace) 40 mg BID PO Last administered on 01/03/17 08:10; Admin Dose 40 MG; Start 12/29/16 at 12:00 Tamsulosin HCl (Flomax) 0.4 mg HS PO Last administered on 01/02/17 20:49; Admin Dose 0.4 MG; Start 12/29/16 at 21:00 Atorvastatin Calcium (Lipitor) 20 mg DAILY@21 PO Last administered on 20:49; Admin Dose 20 MG; Start 12/29/16 at 21:00 Pantoprazole (Protonix Tab) 40 mg QAM PO Last administered on 01/03/17 08:09; Admin Dose 40 MG; Start 12/31/16 at 09:00 Docusate Sodium 100 mg 100 mg Q12 GTB Last administered on 01/03/17 08:09; Admin Dose 100 MG; Start 12/31/16 at 21:59 Cefepime HCl (Maxipime 1gm/50 ml (Pmx)) 50 ml @ 100 mls/hr Q24H IVPB Last administered on 01/02/17 20:49; Admin Dose 100 MLS/HR; Start 01/02/17 at 20:00 Insulin Aspart (Novolog Insulin Pen) NOVOLOG *MILD* ALGORI... Q6 SC Last administered on 01/03/17 11:46; Admin Dose 1 UNIT; Start 01/03/17 at 00:00 Hydralazine HCl (Apresoline) 25 mg Q8 GTB Last administered on 01/03/17 13:15 ; Admin Dose 25 MG; Start 01/02/17 at 22:45 Ondansetron HCl (Zofran Tab) 4 mg Q8 GTB Last administered on 01/03/17 13:15; Admin Dose 4 MG; Start 01/02/17 at 22:50 Acetaminophen (Tylenol Liquid) 650 mg Q6 PRN GTB PAIN AND OR ELEVATED TEMP; Start 01/02/17 at 23:00 ABBY RAMOS MD January 03, 2017 17:07
[2017-01-03 17:15] LABS: ADD UMIC YES; URINE BILIRUBIN (Dip) NEGATIVE (NEGATIVE); URINE BLOOD (Dip) 1+ (NEGATIVE); URINE COLOR LT. YELLOW (YELLOW); URINE GLUCOSE (Dip) NEGATIVE (NEGATIVE); URINE KETONES (Dip) NEGATIVE (NEGATIVE); URINE LEUKOCYTE ESTERASE (Dip) 1+ (NEGATIVE); URINE NITRITE (Dip) NEGATIVE (NEGATIVE); URINE TOTAL PROTEIN (Dip) 2+ (NEGATIVE); URINE UROBILINOGEN (Dip) 0.2 E.U./dL (0.1-1.0)
[2017-01-03 17:54] LABS: BACTERIA,URINE FEW; URINE RBCS 0-2 /HPF (0)
--- NOTE | 2017-01-03 18:43 | PN ---
DATE: 01/03/2017 INFECTIOUS DISEASE PROGRESS NOTE SUBJECTIVE: No acute changes. The patient is lethargic, weak, lying comfortably in bed, afebrile. Tolerates tube feeding. No labs this morning. MICROBIOLOGY: Urine culture had been negative. DIAGNOSTICS: Chest x-ray on admission revealed left lower lobe infiltrate. CT of the brain reveale d no significant changes from previous findings. INDWELLINGS: Flores, PEG. ANTIMICROBIALS: The patient is on Cefepime. PHYSICAL EXAMINATION: GENERAL: This is a cachectic, fragile, elderly man who is in no distress. HEENT: Head atraumatic, normocephalic. Sclerae anicteric. Buccal mucosa dry. NECK: Supple, trachea midline. CHEST: Rise symmetrical. Breath sounds diminished to bases. HEART: S1, S2. ABDOMEN: Soft. Bowel tones present. ASSESSMENT: 1. Pneumonia, possibly aspiration. 2. Failure to thrive with dysphagia, patient has PEG. 3. Anemia. 4. Dementia. 5. Diabetes. 6. History of cerebrovascular accident. PLAN: The patient remains stable. Continue present care. Continue on current antimicrobials, foll ow chest x-ray, continue aspiration precautions. Dictated By: KAYLA CASTREJON MACHINE CLERICAL VERIFIER for NUBIA VALLECILLO/INOCENCIO Conf#: [id number] DID#: [id number]
[2017-01-03] MEDS: CEFEPIME 1GM/50 ML (PMX) 50 ML IVPB SCH (20:22)
[2017-01-03] MEDS: ATORVASTATIN 20 MG TAB PO SCH (21:00)
[2017-01-03] MEDS: TAMSULOSIN (SR) 0.4 MG CAP PO SCH (21:00)
[2017-01-04] MEDS: ALBUTEROL/IPRATROPIUM (NEB) 3 ML AMP HHN SCH ×6 (00:06→20:54)
[2017-01-04] MEDS: INSULIN ASPART [NOVOLOG] 3 ML PEN SC SCH ×3 (06:00→17:43)
[2017-01-04] MEDS: ONDANSETRON 4 MG TAB GTB SCH ×3 (06:01→21:13)
--- NOTE | 2017-01-04 07:36 | RADRPT ---
PROCEDURE: XR Chest. CLINICAL INDICATION: Shortness of breath. TECHNIQUE: Single frontal view. COMPARISON: 12/29/2016. FINDINGS: There is mild interstitial disease bilaterally consistent with pulmonary edema or bilateral pneumoni a. The heart size is normal. There is calcification in the aorta consistent with atherosclerosis. There is no pleural effusion. There is no pneumothorax. IMPRESSION: 1. Pulmonary edema or bilateral pneumonia. 2. Atherosclerosis. RPTAT: QQ .Allen Mackey MD, MD Date Time Electronically viewed and signed by .Allen Mackey MD, MD on 01/04/2017 07:36 .R/
[2017-01-04 07:45] LABS: ADD SCAN DIFF NO
[2017-01-04 07:49] LABS: BASOPHIL # 0.1 10^3/ul (0.0-0.1); BASOPHILS % 0.8 % (0.0-2.0); EOSINOPHILS # 1.1 10^3/ul (0.0-0.5); HEMATOCRIT 23.7 % (42.0-52.0); HEMOGLOBIN 8.1 g/dl (14.0-18.0); LYMPHOCYTES # 1.6 10^3/ul (0.8-2.9); LYMPHOCYTES % 15.2 % (15.0-51.0); MEAN CORPUSCULAR HEMOGLOBIN 28.8 pg (29.0-33.0); MEAN CORPUSCULAR HGB CONC 34.2 g/dl (32.0-37.0); MEAN CORPUSCULAR VOLUME 84.3 fl (82.0-101.0); MONOCYTE # 0.8 10^3/ul (0.3-0.9); MONOCYTES % 7.2 % (0.0-11.0); NEUTROPHIL # 6.9 10^3/ul (1.6-7.5); NEUTROPHILS % 65.4 % (39.0-77.0); PLATELET COUNT 360 10^3/UL (140-415); RED BLOOD COUNT 2.81 10^6/ul (4.70-6.10); RED CELL DISTRIBUTION WIDTH 15.6 % (11.5-14.5); WHITE BLOOD COUNT 10.5 10^3/ul (4.8-10.8)
[2017-01-04 08:03] VITALS: BP 152/68; RESP 18
[2017-01-04 09:40] LABS: POTASSIUM 3.8 mmol/L (3.5-5.1)
[2017-01-04 09:42] LABS: CREATININE 2.46 mg/dl (0.61-1.24)
[2017-01-04 09:43] LABS: CALCIUM 8.2 mg/dl (8.4-10.2)
[2017-01-04] MEDS: DOCUSATE SODIUM 10 MG/ML (10ML CUP) GTB SCH ×2 (10:16→20:03)
[2017-01-04] MEDS: GABAPENTIN 300 MG CAP PO SCH (10:16)
[2017-01-04] MEDS: MEGESTROL 40 MG TAB PO SCH ×2 (10:16→20:03)
[2017-01-04] MEDS: PANTOPRAZOLE (EC) 40 MG TAB PO SCH (10:16)
[2017-01-04] MEDS: AMIODARONE 200 MG TAB PO SCH (10:17)
--- NOTE | 2017-01-04 13:52 | CONS ---
Date/Time of Note Date/Time of Note DATE: 01/04/17 TIME: 13:51 Assessment/Plan Assessment/Plan Chief Complaint/Hosp Course SUBJECTIVE: No acute changes, lying comfortably in bed, afebrile. Tolerates tube feeding. MICROBIOLOGY: Urine culture had been negative. DIAGNOSTICS: Chest x-ray on admission revealed left lower lobe infiltrate. CT of the brain revealed no significant changes from previous findings. INDWELLINGS: Flores, PEG. ANTIMICROBIALS: The patient is on Cefepime. PHYSICAL EXAMINATION: GENERAL: This is a cachectic, fragile, elderly man who is in no distress. HEENT: Head atraumatic, normocephalic. Sclerae anicteric. Buccal mucosa dry. NECK: Supple, trachea midline. CHEST: Rise symmetrical. Breath sounds diminished to bases. HEART: S1, S2. ABDOMEN: Soft. Bowel tones present. ASSESSMENT: 1. Pneumonia, possibly aspiration. 2. Failure to thrive with dysphagia, patient has PEG. 3. Anemia. 4. Dementia. 5. Diabetes. 6. History of cerebrovascular accident. PLAN: The patient remains stable. Continue present care. Continue on current antimicrobials, follow chest x-ray, continue aspiration precautions. DW staff Problems: Consultation Date/Type/Reason Admit Date/Time December 29, 2016 at 04:03 Initial Consult Date Type of Consultation: ID Exam/Review of Systems Vital Signs Vitals Vital Signs Date Time Temp Pulse Resp B/P Pulse Ox O2 Delivery O2 Flow Rate FiO2 01/04/17 12:26 79 16 97 21 01/04/17 08:03 98.4 152/68 01/02/17 20:50 Nasal Cannula 2.0 Intake and Output 01/03/17 01/03/17 01/04/17 15:00 23:00 07:00 Intake Total 140 ml 660 ml Output Total 0 ml 650 ml Balance 140 ml 10 ml Results Result Diagram: 01/04/17 0710 01/04/17 0710 Results 24 hrs Laboratory Tests Test 01/03/17 17:56 01/03/17 23:57 01/04/17 06:09 01/04/17 07:10 Bedside Glucose 141 128 132 White Blood Count 10.5 Red Blood Count 2.81 L Hemoglobin 8.1 L Hematocrit 23.7 L Mean Corpuscular Volume 84.3 Mean Corpuscular Hemoglobin 28.8 L Mean Corpuscular Hemoglobin Concent 34.2 Red Cell Distribution Width 15.6 H Platelet Count 360 Mean Platelet Volume 10.0 Neutrophils % 65.4 Lymphocytes % 15.2 Monocytes % 7.2 Eosinophils % 10.0 H Basophils % 0.8 Nucleated Red Blood Cells % 0.0 Neutrophils # 6.9 Lymphocytes # 1.6 Monocytes # 0.8 Eosinophils # 1.1 H Basophils # 0.1 Nucleated Red Blood Cells # 0.0 Sodium Level 138 Potassium Level 3.8 Chloride Level 105 Carbon Dioxide Level 23 Anion Gap 14 Blood Urea Nitrogen 35 H Creatinine 2.46 H Glucose Level 129 Calcium Level 8.2 L Test 01/04/17 12:28 Bedside Glucose 149 Medications Medications Current Medications Acetaminophen (Tylenol Tab) 650 mg Q6H PRN PO PAIN AND OR ELEVATED TEMP; Start 12/29/16 at 10:30; Status Future Hold Miscellaneous Information 1 ea NOTE XX ; Start 12/29/16 at 10:30 Glucose (Glutose) 15 gm Q15M PRN PO DECREASED GLUCOSE; Start 12/29/16 at 10:30 Glucose (Glutose) 22.5 gm Q15M PRN PO DECREASED GLUCOSE; Start 12/29/16 at 10:30 Dextrose (D50w Syringe) 25 ml Q15M PRN IV DECREASED GLUCOSE; Start 12/29/16 at 10:30 Dextrose (D50w Syringe) 50 ml Q15M PRN IV DECREASED GLUCOSE; Start 12/29/16 at 10:30 Glucagon (Glucagen) 1 mg Q15M PRN IM DECREASED GLUCOSE; Start 12/29/16 at 10:30 Glucose (Glutose) 15 gm Q15M PRN BUCCAL DECREASED GLUCOSE; Start 12/29/16 at 10: 30 Hydralazine HCl (Apresoline) 10 mg Q6H PRN IV sbp greater than 165 Last administered on 01/03/17 14:42; Admin Dose 10 MG; Start 12/29/16 at 10:30 Amiodarone HCl (Cordarone) 100 mg DAILY PO Last administered on 01/04/17 10:17 ; Admin Dose 100 MG; Start 12/29/16 at 12:00 Gabapentin (Neurontin) 300 mg DAILY PO Last administered on 01/04/17 10:16; Admin Dose 300 MG; Start 12/29/16 at 12:00 Megestrol Acetate (Megace) 40 mg BID PO Last administered on 01/04/17 10:16; Admin Dose 40 MG; Start 12/29/16 at 12:00 Tamsulosin HCl (Flomax) 0.4 mg HS PO Last administered on 01/03/17 21:00; Admin Dose 0.4 MG; Start 12/29/16 at 21:00 Atorvastatin Calcium (Lipitor) 20 mg DAILY@21 PO Last administered on 21:00; Admin Dose 20 MG; Start 12/29/16 at 21:00 Pantoprazole (Protonix Tab) 40 mg QAM PO Last administered on 01/04/17 10:16; Admin Dose 40 MG; Start 12/31/16 at 09:00 Docusate Sodium 100 mg 100 mg Q12 GTB Last administered on 01/04/17 10:16; Admin Dose 100 MG; Start 12/31/16 at 21:59 Cefepime HCl (Maxipime 1gm/50 ml (Pmx)) 50 ml @ 100 mls/hr Q24H IVPB Last administered on 01/03/17 20:22; Admin Dose 100 MLS/HR; Start 01/02/17 at 20:00 Insulin Aspart (Novolog Insulin Pen) NOVOLOG *MILD* ALGORI... Q6 SC Last administered on 01/04/17 12:32; Admin Dose 1 UNIT; Start 01/03/17 at 00:00 Hydralazine HCl (Apresoline) 25 mg Q8 GTB Last administered on 01/04/17 06:03 ; Admin Dose 25 MG; Start 01/02/17 at 22:45 Ondansetron HCl (Zofran Tab) 4 mg Q8 GTB Last administered on 01/04/17 06:01; Admin Dose 4 MG; Start 01/02/17 at 22:50 Acetaminophen (Tylenol Liquid) 650 mg Q6 PRN GTB PAIN AND OR ELEVATED TEMP; Start 01/02/17 at 23:00 KAYLA CASTREJON NP January 04, 2017 13:52
--- NOTE | 2017-01-04 16:01 | PN ---
Date/Time of Note Date/Time of Note DATE: 01/04/17 TIME: 15:58 Assessment/Plan VTE Prophylaxis VTE Prophylaxis Intervention: SCD's Lines/Catheters IV C[facility]ter Type (from [facility]): Saline Lock Urinary Cath still in place: Yes Reason Cath still needed: urinary retention Assessment/Plan Chief Complaint/Hosp Course ASSESSMENT AND PLAN: 1. Altered level of consciousness, most likely secondary to electrolyte imbalances secondary to metabolic encephalopathy. 2. Possible healthcare-acquired pneumonia. Continue patient on cefepime and vancomycin. 3. Systemic inflammatory response syndrome secondary to pneumonia. 4. Diastolic congestive heart failure. 5. Chronic kidney disease. 6. Hyperkalemia., Resolved. 7. Anemia, status post blood transfusion, continue to monitor hemoglobin and hematocrit. 8. Severe protein calorie malnutrition as evidenced by low albumin of 2.9. Dr. Cabral is following in gastroenterology consultation. Status post G-tube placement. 9. History of cerebrovascular accident. 10. Hypertension. 11. History of paroxysmal atrial fibrillation. 12. Diabetes mellitus. Continue NovoLog per mild algorithm sliding scale. Further recommendations based on clinical course. Plan of care discussed with Dr. Patel. Problems: Subjective 24 Hr Interval Summary Free Text/Dictation Patient remains afebrile, no acute events overnight. Exam/Review of Systems Vital Signs Vitals Vital Signs Date Time Temp Pulse Resp B/P Pulse Ox O2 Delivery O2 Flow Rate FiO2 01/04/17 12:26 79 16 97 21 01/04/17 08:03 98.4 152/68 01/02/17 20:50 Nasal Cannula 2.0 Intake and Output 01/03/17 01/03/17 01/04/17 15:00 23:00 07:00 Intake Total 140 ml 660 ml Output Total 0 ml 650 ml Balance 140 ml 10 ml Exam GENERAL: Well-developed, cachectic, elderly fragile gentleman, currently is awake, alert to name. HEENT: Head is atraumatic, normocephalic. Pupils equal and round, reactive to light and accommodation. Oral mucosa is pink, moist. NECK: Supple. No cervical lymphadenopathy, no thyromegaly. CHEST: Lung sounds clear bilaterally, slightly diminished at the bases. There are no rhonchi, wheezes, rales noted. CARDIOVASCULAR: Normal S1, S2. No murmurs, clicks, rubs noted. ABDOMEN: Flat, soft, nondistended, nontender. Bowel sounds present. G-tube. EXTREMITIES: There is no edema, clubbing, cyanosis. Pulses equal bilaterally 2 +. SKIN: The patient has a sacral small stage II ulcer. No rash, petechiae noted. NEUROLOGICAL: The patient is awake, alert to name and situation, otherwise confused. The patient with history of bilateral lower extremity weakness, however was able to ambulate using walker at shelter facility. Results Result Diagram: 01/04/17 0710 01/04/17 0710 Results 24 hrs Laboratory Tests Test 01/03/17 17:56 01/03/17 23:57 01/04/17 06:09 01/04/17 07:10 Bedside Glucose 141 128 132 White Blood Count 10.5 Red Blood Count 2.81 L Hemoglobin 8.1 L Hematocrit 23.7 L Mean Corpuscular Volume 84.3 Mean Corpuscular Hemoglobin 28.8 L Mean Corpuscular Hemoglobin Concent 34.2 Red Cell Distribution Width 15.6 H Platelet Count 360 Mean Platelet Volume 10.0 Neutrophils % 65.4 Lymphocytes % 15.2 Monocytes % 7.2 Eosinophils % 10.0 H Basophils % 0.8 Nucleated Red Blood Cells % 0.0 Neutrophils # 6.9 Lymphocytes # 1.6 Monocytes # 0.8 Eosinophils # 1.1 H Basophils # 0.1 Nucleated Red Blood Cells # 0.0 Sodium Level 138 Potassium Level 3.8 Chloride Level 105 Carbon Dioxide Level 23 Anion Gap 14 Blood Urea Nitrogen 35 H Creatinine 2.46 H Glucose Level 129 Calcium Level 8.2 L Test 01/04/17 12:28 Bedside Glucose 149 Medications Medications Current Medications Acetaminophen (Tylenol Tab) 650 mg Q6H PRN PO PAIN AND OR ELEVATED TEMP; Start 12/29/16 at 10:30; Status Future Hold Miscellaneous Information 1 ea NOTE XX ; Start 12/29/16 at 10:30 Glucose (Glutose) 15 gm Q15M PRN PO DECREASED GLUCOSE; Start 12/29/16 at 10:30 Glucose (Glutose) 22.5 gm Q15M PRN PO DECREASED GLUCOSE; Start 12/29/16 at 10:30 Dextrose (D50w Syringe) 25 ml Q15M PRN IV DECREASED GLUCOSE; Start 12/29/16 at 10:30 Dextrose (D50w Syringe) 50 ml Q15M PRN IV DECREASED GLUCOSE; Start 12/29/16 at 10:30 Glucagon (Glucagen) 1 mg Q15M PRN IM DECREASED GLUCOSE; Start 12/29/16 at 10:30 Glucose (Glutose) 15 gm Q15M PRN BUCCAL DECREASED GLUCOSE; Start 12/29/16 at 10: 30 Hydralazine HCl (Apresoline) 10 mg Q6H PRN IV sbp greater than 165 Last administered on 01/03/17 14:42; Admin Dose 10 MG; Start 12/29/16 at 10:30 Amiodarone HCl (Cordarone) 100 mg DAILY PO Last administered on 01/04/17 10:17 ; Admin Dose 100 MG; Start 12/29/16 at 12:00 Gabapentin (Neurontin) 300 mg DAILY PO Last administered on 01/04/17 10:16; Admin Dose 300 MG; Start 12/29/16 at 12:00 Megestrol Acetate (Megace) 40 mg BID PO Last administered on 01/04/17 10:16; Admin Dose 40 MG; Start 12/29/16 at 12:00 Tamsulosin HCl (Flomax) 0.4 mg HS PO Last administered on 01/03/17 21:00; Admin Dose 0.4 MG; Start 12/29/16 at 21:00 Atorvastatin Calcium (Lipitor) 20 mg DAILY@21 PO Last administered on 21:00; Admin Dose 20 MG; Start 12/29/16 at 21:00 Pantoprazole (Protonix Tab) 40 mg QAM PO Last administered on 01/04/17 10:16; Admin Dose 40 MG; Start 12/31/16 at 09:00 Docusate Sodium 100 mg 100 mg Q12 GTB Last administered on 01/04/17 10:16; Admin Dose 100 MG; Start 12/31/16 at 21:59 Cefepime HCl (Maxipime 1gm/50 ml (Pmx)) 50 ml @ 100 mls/hr Q24H IVPB Last administered on 01/03/17 20:22; Admin Dose 100 MLS/HR; Start 01/02/17 at 20:00 Insulin Aspart (Novolog Insulin Pen) NOVOLOG *MILD* ALGORI... Q6 SC Last administered on 01/04/17 12:32; Admin Dose 1 UNIT; Start 01/03/17 at 00:00 Hydralazine HCl (Apresoline) 25 mg Q8 GTB Last administered on 01/04/17 14:44 ; Admin Dose 25 MG; Start 01/02/17 at 22:45 Ondansetron HCl (Zofran Tab) 4 mg Q8 GTB Last administered on 01/04/17 14:44; Admin Dose 4 MG; Start 01/02/17 at 22:50 Acetaminophen (Tylenol Liquid) 650 mg Q6 PRN GTB PAIN AND OR ELEVATED TEMP; Start 01/02/17 at 23:00 GEOVANY IBARRA January 04, 2017 16:01
--- NOTE | 2017-01-04 18:28 | CONS ---
Date/Time of Note Date/Time of Note DATE: 01/04/17 TIME: 18:27 Assessment/Plan Assessment/Plan Chief Complaint/Hosp Course IMPRESSION: 1. Patient has ipcmf-jg-fpceidm kidney disease. 2. Hyperkalemia.BETTER 3. Hypertension. 4. Diabetes mellitus. 5. Uremia. 6. Metabolic acidosis. 7. Leukocytosis. 8. Systemic inflammatory response syndrome. 9. The patient has incomplete database. 10. History of cerebrovascular accident. 11. History of gastrointestinal bleed. 12. History of pneumonia. 13 S/P PEG plan ck bmp Problems: Consultation Date/Type/Reason Admit Date/Time December 29, 2016 at 04:03 Type of Consultation: RENAL 24 HR Interval Summary Constitutional: no complaints Exam/Review of Systems Vital Signs Vitals Vital Signs Date Time Temp Pulse Resp B/P Pulse Ox O2 Delivery O2 Flow Rate FiO2 01/04/17 17:51 77 18 98 21 01/04/17 08:03 98.4 152/68 01/02/17 20:50 Nasal Cannula 2.0 Intake and Output 01/03/17 01/03/17 01/04/17 15:00 23:00 07:00 Intake Total 140 ml 660 ml Output Total 0 ml 650 ml Balance 140 ml 10 ml Exam Respiratory: clear to auscultation Cardiovascular: regular rate and rhythm Gastrointestinal: soft Musculoskeletal: nl extremities to inspection Results Result Diagram: 01/04/17 0710 01/04/17 0710 Results 24 hrs Laboratory Tests Test 01/03/17 23:57 01/04/17 06:09 01/04/17 07:10 01/04/17 12:28 Bedside Glucose 128 132 149 White Blood Count 10.5 Red Blood Count 2.81 L Hemoglobin 8.1 L Hematocrit 23.7 L Mean Corpuscular Volume 84.3 Mean Corpuscular Hemoglobin 28.8 L Mean Corpuscular Hemoglobin Concent 34.2 Red Cell Distribution Width 15.6 H Platelet Count 360 Mean Platelet Volume 10.0 Neutrophils % 65.4 Lymphocytes % 15.2 Monocytes % 7.2 Eosinophils % 10.0 H Basophils % 0.8 Nucleated Red Blood Cells % 0.0 Neutrophils # 6.9 Lymphocytes # 1.6 Monocytes # 0.8 Eosinophils # 1.1 H Basophils # 0.1 Nucleated Red Blood Cells # 0.0 Sodium Level 138 Potassium Level 3.8 Chloride Level 105 Carbon Dioxide Level 23 Anion Gap 14 Blood Urea Nitrogen 35 H Creatinine 2.46 H Glucose Level 129 Calcium Level 8.2 L Test 01/04/17 17:39 Bedside Glucose 141 Medications Medications Current Medications Acetaminophen (Tylenol Tab) 650 mg Q6H PRN PO PAIN AND OR ELEVATED TEMP; Start 12/29/16 at 10:30; Status Future Hold Miscellaneous Information 1 ea NOTE XX ; Start 12/29/16 at 10:30 Glucose (Glutose) 15 gm Q15M PRN PO DECREASED GLUCOSE; Start 12/29/16 at 10:30 Glucose (Glutose) 22.5 gm Q15M PRN PO DECREASED GLUCOSE; Start 12/29/16 at 10:30 Dextrose (D50w Syringe) 25 ml Q15M PRN IV DECREASED GLUCOSE; Start 12/29/16 at 10:30 Dextrose (D50w Syringe) 50 ml Q15M PRN IV DECREASED GLUCOSE; Start 12/29/16 at 10:30 Glucagon (Glucagen) 1 mg Q15M PRN IM DECREASED GLUCOSE; Start 12/29/16 at 10:30 Glucose (Glutose) 15 gm Q15M PRN BUCCAL DECREASED GLUCOSE; Start 12/29/16 at 10: 30 Hydralazine HCl (Apresoline) 10 mg Q6H PRN IV sbp greater than 165 Last administered on 01/03/17 14:42; Admin Dose 10 MG; Start 12/29/16 at 10:30 Amiodarone HCl (Cordarone) 100 mg DAILY PO Last administered on 01/04/17 10:17 ; Admin Dose 100 MG; Start 12/29/16 at 12:00 Gabapentin (Neurontin) 300 mg DAILY PO Last administered on 01/04/17 10:16; Admin Dose 300 MG; Start 12/29/16 at 12:00 Megestrol Acetate (Megace) 40 mg BID PO Last administered on 01/04/17 10:16; Admin Dose 40 MG; Start 12/29/16 at 12:00 Tamsulosin HCl (Flomax) 0.4 mg HS PO Last administered on 01/03/17 21:00; Admin Dose 0.4 MG; Start 12/29/16 at 21:00 Atorvastatin Calcium (Lipitor) 20 mg DAILY@21 PO Last administered on 21:00; Admin Dose 20 MG; Start 12/29/16 at 21:00 Pantoprazole (Protonix Tab) 40 mg QAM PO Last administered on 01/04/17 10:16; Admin Dose 40 MG; Start 12/31/16 at 09:00 Docusate Sodium 100 mg 100 mg Q12 GTB Last administered on 01/04/17 10:16; Admin Dose 100 MG; Start 12/31/16 at 21:59 Cefepime HCl (Maxipime 1gm/50 ml (Pmx)) 50 ml @ 100 mls/hr Q24H IVPB Last administered on 01/03/17 20:22; Admin Dose 100 MLS/HR; Start 01/02/17 at 20:00 Insulin Aspart (Novolog Insulin Pen) NOVOLOG *MILD* ALGORI... Q6 SC Last administered on 01/04/17 17:43; Admin Dose 1 UNIT; Start 01/03/17 at 00:00 Hydralazine HCl (Apresoline) 25 mg Q8 GTB Last administered on 01/04/17 14:44 ; Admin Dose 25 MG; Start 01/02/17 at 22:45 Ondansetron HCl (Zofran Tab) 4 mg Q8 GTB Last administered on 01/04/17 14:44; Admin Dose 4 MG; Start 01/02/17 at 22:50 Acetaminophen (Tylenol Liquid) 650 mg Q6 PRN GTB PAIN AND OR ELEVATED TEMP; Start 01/02/17 at 23:00 ABBY RAMOS MD January 04, 2017 18:28
--- NOTE | 2017-01-04 19:26 | CONS ---
Date/Time of Note Date/Time of Note DATE: 01/04/17 TIME: 19:26 Assessment/Plan Assessment/Plan Additional Assessment/Plan IMPRESSION: 1. Dysphagia. Status post PEG 2. Prerenal azotemia. 3. History of hypertension. 4. Cerebrovascular accident. 5. Chronic kidney disease. 6. Cachexia and malnutrition. 7. Diabetes mellitus. 8. Paroxysmal atrial fibrillation. 9. Anemia most probably of chronic disease Plan Increase feeding slowly No active GI bleeding Consultation Date/Type/Reason Admit Date/Time December 29, 2016 at 04:03 Type of Consultation: RENAL 24 HR Interval Summary Constitutional: no complaints Exam/Review of Systems Vital Signs Vitals Vital Signs Date Time Temp Pulse Resp B/P Pulse Ox O2 Delivery O2 Flow Rate FiO2 01/04/17 17:51 77 18 98 21 01/04/17 08:03 98.4 152/68 01/02/17 20:50 Nasal Cannula 2.0 Intake and Output 01/03/17 01/03/17 01/04/17 15:00 23:00 07:00 Intake Total 140 ml 660 ml Output Total 0 ml 650 ml Balance 140 ml 10 ml Exam Constitutional: alert, oriented, well developed Psych: nl mood/affect, no complaints Head: atraumatic, normocephalic Eyes: EOMI, PERRL, nl conjunctiva, nl lids, nl sclera ENMT: nl external ears & nose, nl lips & teeth, nl nasal mucosa & septum Neck: non-tender, supple Respiratory: clear to auscultation, normal air movement Cardiovascular: nl pulses, regular rate and rhythm Gastrointestinal: nl liver, spleen, non-tender, soft Musculoskeletal: nl extremities to inspection, nl gait and stance Extremities: normal pulses 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, nl mental status, nl speech, nl strength Skin: nl turgor, No rash or lesions Lymph: nl lymph nodes Results Result Diagram: 01/04/17 0710 01/04/17 0710 Results 24 hrs Laboratory Tests Test 01/03/17 23:57 01/04/17 06:09 01/04/17 07:10 01/04/17 12:28 Bedside Glucose 128 132 149 White Blood Count 10.5 Red Blood Count 2.81 L Hemoglobin 8.1 L Hematocrit 23.7 L Mean Corpuscular Volume 84.3 Mean Corpuscular Hemoglobin 28.8 L Mean Corpuscular Hemoglobin Concent 34.2 Red Cell Distribution Width 15.6 H Platelet Count 360 Mean Platelet Volume 10.0 Neutrophils % 65.4 Lymphocytes % 15.2 Monocytes % 7.2 Eosinophils % 10.0 H Basophils % 0.8 Nucleated Red Blood Cells % 0.0 Neutrophils # 6.9 Lymphocytes # 1.6 Monocytes # 0.8 Eosinophils # 1.1 H Basophils # 0.1 Nucleated Red Blood Cells # 0.0 Sodium Level 138 Potassium Level 3.8 Chloride Level 105 Carbon Dioxide Level 23 Anion Gap 14 Blood Urea Nitrogen 35 H Creatinine 2.46 H Glucose Level 129 Calcium Level 8.2 L Test 01/04/17 17:39 Bedside Glucose 141 Medications Medications Current Medications Acetaminophen (Tylenol Tab) 650 mg Q6H PRN PO PAIN AND OR ELEVATED TEMP; Start 12/29/16 at 10:30; Status Future Hold Miscellaneous Information 1 ea NOTE XX ; Start 12/29/16 at 10:30 Glucose (Glutose) 15 gm Q15M PRN PO DECREASED GLUCOSE; Start 12/29/16 at 10:30 Glucose (Glutose) 22.5 gm Q15M PRN PO DECREASED GLUCOSE; Start 12/29/16 at 10:30 Dextrose (D50w Syringe) 25 ml Q15M PRN IV DECREASED GLUCOSE; Start 12/29/16 at 10:30 Dextrose (D50w Syringe) 50 ml Q15M PRN IV DECREASED GLUCOSE; Start 12/29/16 at 10:30 Glucagon (Glucagen) 1 mg Q15M PRN IM DECREASED GLUCOSE; Start 12/29/16 at 10:30 Glucose (Glutose) 15 gm Q15M PRN BUCCAL DECREASED GLUCOSE; Start 12/29/16 at 10: 30 Hydralazine HCl (Apresoline) 10 mg Q6H PRN IV sbp greater than 165 Last administered on 01/03/17 14:42; Admin Dose 10 MG; Start 12/29/16 at 10:30 Amiodarone HCl (Cordarone) 100 mg DAILY PO Last administered on 01/04/17 10:17 ; Admin Dose 100 MG; Start 12/29/16 at 12:00 Gabapentin (Neurontin) 300 mg DAILY PO Last administered on 01/04/17 10:16; Admin Dose 300 MG; Start 12/29/16 at 12:00 Megestrol Acetate (Megace) 40 mg BID PO Last administered on 01/04/17 10:16; Admin Dose 40 MG; Start 12/29/16 at 12:00 Tamsulosin HCl (Flomax) 0.4 mg HS PO Last administered on 01/03/17 21:00; Admin Dose 0.4 MG; Start 12/29/16 at 21:00 Atorvastatin Calcium (Lipitor) 20 mg DAILY@21 PO Last administered on 21:00; Admin Dose 20 MG; Start 12/29/16 at 21:00 Pantoprazole (Protonix Tab) 40 mg QAM PO Last administered on 01/04/17 10:16; Admin Dose 40 MG; Start 12/31/16 at 09:00 Docusate Sodium 100 mg 100 mg Q12 GTB Last administered on 01/04/17 10:16; Admin Dose 100 MG; Start 12/31/16 at 21:59 Cefepime HCl (Maxipime 1gm/50 ml (Pmx)) 50 ml @ 100 mls/hr Q24H IVPB Last administered on 01/03/17 20:22; Admin Dose 100 MLS/HR; Start 01/02/17 at 20:00 Insulin Aspart (Novolog Insulin Pen) NOVOLOG *MILD* ALGORI... Q6 SC Last administered on 01/04/17 17:43; Admin Dose 1 UNIT; Start 01/03/17 at 00:00 Hydralazine HCl (Apresoline) 25 mg Q8 GTB Last administered on 01/04/17 14:44 ; Admin Dose 25 MG; Start 01/02/17 at 22:45 Ondansetron HCl (Zofran Tab) 4 mg Q8 GTB Last administered on 01/04/17 14:44; Admin Dose 4 MG; Start 01/02/17 at 22:50 Acetaminophen (Tylenol Liquid) 650 mg Q6 PRN GTB PAIN AND OR ELEVATED TEMP; Start 01/02/17 at 23:00 JEFRY CERNA MD January 04, 2017 19:26
[2017-01-04] MEDS: CEFEPIME 1GM/50 ML (PMX) 50 ML IVPB SCH (20:03)
[2017-01-04] MEDS: TAMSULOSIN (SR) 0.4 MG CAP PO SCH (20:03)
[2017-01-04] MEDS: ATORVASTATIN 20 MG TAB PO SCH (20:03)
[2017-01-04] MEDS: hydrALAzine 20 MG INJ IV PRN (20:04)
[2017-01-04 20:15] VITALS: BP 168/76; RESP 18
[2017-01-04 20:44] VITALS: BP 144/66; RESP 18
[2017-01-05] MEDS: ALBUTEROL/IPRATROPIUM (NEB) 3 ML AMP HHN SCH ×6 (00:38→20:14)
[2017-01-05] MEDS: INSULIN ASPART [NOVOLOG] 3 ML PEN SC SCH ×4 (06:00→17:29)
[2017-01-05 06:12] LABS: ADD SCAN DIFF NO
[2017-01-05 06:17] LABS: BASOPHIL # 0.1 10^3/ul (0.0-0.1); BASOPHILS % 0.8 % (0.0-2.0); EOSINOPHILS # 1.2 10^3/ul (0.0-0.5); EOSINOPHILS % 11.5 % (0.0-7.0); HEMATOCRIT 24.8 % (42.0-52.0); HEMOGLOBIN 8.2 g/dl (14.0-18.0); LYMPHOCYTES # 1.9 10^3/ul (0.8-2.9); LYMPHOCYTES % 18.6 % (15.0-51.0); MEAN CORPUSCULAR HGB CONC 33.1 g/dl (32.0-37.0); MEAN CORPUSCULAR VOLUME 84.6 fl (82.0-101.0); MEAN PLATELET VOLUME 10.5 fl (7.4-10.4); MONOCYTE # 0.8 10^3/ul (0.3-0.9); MONOCYTES % 8.1 % (0.0-11.0); NEUTROPHIL # 6.1 10^3/ul (1.6-7.5); NEUTROPHILS % 60.3 % (39.0-77.0); PLATELET COUNT 366 10^3/UL (140-415); RED BLOOD COUNT 2.93 10^6/ul (4.70-6.10); RED CELL DISTRIBUTION WIDTH 15.4 % (11.5-14.5); WHITE BLOOD COUNT 10.1 10^3/ul (4.8-10.8)
[2017-01-05 06:28] LABS: CREATININE 2.46 mg/dl (0.61-1.24)
[2017-01-05] MEDS: ONDANSETRON 4 MG TAB GTB SCH ×3 (06:32→21:09)
[2017-01-05 07:30] VITALS: BP 160/76; RESP 18
[2017-01-05] MEDS: PANTOPRAZOLE (EC) 40 MG TAB PO SCH (09:31)
[2017-01-05] MEDS: DOCUSATE SODIUM 10 MG/ML (10ML CUP) GTB SCH ×2 (09:31→21:09)
[2017-01-05] MEDS: MEGESTROL 40 MG TAB PO SCH ×2 (09:31→21:09)
[2017-01-05] MEDS: GABAPENTIN 300 MG CAP PO SCH (09:32)
[2017-01-05] MEDS: AMIODARONE 200 MG TAB PO SCH (09:34)
[2017-01-05] MEDS: FLUCONAZOLE 100 MG TAB PO SCH (11:23)
--- NOTE | 2017-01-05 13:04 | PN ---
Date/Time of Note Date/Time of Note DATE: 01/05/17 TIME: 13:02 Assessment/Plan VTE Prophylaxis VTE Prophylaxis Intervention: SCD's Lines/Catheters IV [facility] Urinary Cath still in place: Yes Reason Cath still needed: urinary retention Assessment/Plan Chief Complaint/Hosp Course ASSESSMENT AND PLAN: 1. Altered level of consciousness, most likely secondary to electrolyte imbalances secondary to metabolic encephalopathy. 2. Possible healthcare-acquired pneumonia. Continue patient on cefepime and vancomycin. 3. Systemic inflammatory response syndrome secondary to pneumonia. 4. Diastolic congestive heart failure. 5. Chronic kidney disease. 6. Hyperkalemia., Resolved. 7. Anemia, status post blood transfusion, continue to monitor hemoglobin and hematocrit. 8. Severe protein calorie malnutrition as evidenced by low albumin of 2.9. Dr. Cabral is following in gastroenterology consultation. Status post G-tube placement. 9. History of cerebrovascular accident. 10. Hypertension. 11. History of paroxysmal atrial fibrillation. 12. Diabetes mellitus. Continue NovoLog per mild algorithm sliding scale. Further recommendations based on clinical course. Plan of care discussed with Dr. Patel. Problems: Subjective 24 Hr Interval Summary Free Text/Dictation Patient is lethargic but easily arousable, tolerates G-tube feeding well, no fever per RN, pending swallow evaluation. Exam/Review of Systems Vital Signs Vitals Vital Signs Date Time Temp Pulse Resp B/P Pulse Ox O2 Delivery O2 Flow Rate FiO2 01/05/17 08:11 76 16 95 21 01/05/17 07:30 98.1 160/76 01/02/17 20:50 Nasal Cannula 2.0 Intake and Output 01/04/17 01/04/17 01/05/17 15:00 23:00 07:00 Intake Total 550 ml 500 ml Output Total 700 ml 700 ml Balance -150 ml -200 ml Exam GENERAL: Well-developed, cachectic, elderly fragile gentleman, currently is awake, alert to name. HEENT: Head is atraumatic, normocephalic. Pupils equal and round, reactive to light and accommodation. Oral mucosa is pink, moist. NECK: Supple. No cervical lymphadenopathy, no thyromegaly. CHEST: Lung sounds clear bilaterally, slightly diminished at the bases. There are no rhonchi, wheezes, rales noted. CARDIOVASCULAR: Normal S1, S2. No murmurs, clicks, rubs noted. ABDOMEN: Flat, soft, nondistended, nontender. Bowel sounds present. G-tube. EXTREMITIES: There is no edema, clubbing, cyanosis. Pulses equal bilaterally 2 +. SKIN: The patient has a sacral small stage II ulcer. No rash, petechiae noted. NEUROLOGICAL: The patient is awake, alert to name and situation, otherwise confused. The patient with history of bilateral lower extremity weakness, however was able [facility]. Results Result Diagram: 01/05/17 0420 01/05/17 0420 Results 24 hrs Laboratory Tests Test 01/04/17 17:39 01/05/17 00:18 01/05/17 04:20 01/05/17 06:32 Bedside Glucose 141 127 135 White Blood Count 10.1 Red Blood Count 2.93 L Hemoglobin 8.2 L Hematocrit 24.8 L Mean Corpuscular Volume 84.6 Mean Corpuscular Hemoglobin 28.0 L Mean Corpuscular Hemoglobin Concent 33.1 Red Cell Distribution Width 15.4 H Platelet Count 366 Mean Platelet Volume 10.5 H Neutrophils % 60.3 Lymphocytes % 18.6 Monocytes % 8.1 Eosinophils % 11.5 H Basophils % 0.8 Nucleated Red Blood Cells % 0.0 Neutrophils # 6.1 Lymphocytes # 1.9 Monocytes # 0.8 Eosinophils # 1.2 H Basophils # 0.1 Nucleated Red Blood Cells # 0.0 Sodium Level 138 Potassium Level 4.0 Chloride Level 105 Carbon Dioxide Level 24 Anion Gap 13 Blood Urea Nitrogen 38 H Creatinine 2.46 H Glucose Level 121 Calcium Level 8.0 L Test 01/05/17 11:26 Bedside Glucose 161 Medications Medications Current Medications Acetaminophen (Tylenol Tab) 650 mg Q6H PRN PO PAIN AND OR ELEVATED TEMP; Start 12/29/16 at 10:30; Status Future Hold Miscellaneous Information 1 ea NOTE XX ; Start 12/29/16 at 10:30 Glucose (Glutose) 15 gm Q15M PRN PO DECREASED GLUCOSE; Start 12/29/16 at 10:30 Glucose (Glutose) 22.5 gm Q15M PRN PO DECREASED GLUCOSE; Start 12/29/16 at 10:30 Dextrose (D50w Syringe) 25 ml Q15M PRN IV DECREASED GLUCOSE; Start 12/29/16 at 10:30 Dextrose (D50w Syringe) 50 ml Q15M PRN IV DECREASED GLUCOSE; Start 12/29/16 at 10:30 Glucagon (Glucagen) 1 mg Q15M PRN IM DECREASED GLUCOSE; Start 12/29/16 at 10:30 Glucose (Glutose) 15 gm Q15M PRN BUCCAL DECREASED GLUCOSE; Start 12/29/16 at 10: 30 Hydralazine HCl (Apresoline) 10 mg Q6H PRN IV sbp greater than 165 Last administered on 01/04/17 20:04; Admin Dose 10 MG; Start 12/29/16 at 10:30 Amiodarone HCl (Cordarone) 100 mg DAILY PO Last administered on 01/05/17 09:34 ; Admin Dose 100 MG; Start 12/29/16 at 12:00 Gabapentin (Neurontin) 300 mg DAILY PO Last administered on 01/05/17 09:32; Admin Dose 300 MG; Start 12/29/16 at 12:00 Megestrol Acetate (Megace) 40 mg BID PO Last administered on 01/05/17 09:31; Admin Dose 40 MG; Start 12/29/16 at 12:00 Tamsulosin HCl (Flomax) 0.4 mg HS PO Last administered on 01/04/17 20:03; Admin Dose 0.4 MG; Start 12/29/16 at 21:00 Atorvastatin Calcium (Lipitor) 20 mg DAILY@21 PO Last administered on 20:03; Admin Dose 20 MG; Start 12/29/16 at 21:00 Pantoprazole (Protonix Tab) 40 mg QAM PO Last administered on 01/05/17 09:31; Admin Dose 40 MG; Start 12/31/16 at 09:00 Docusate Sodium 100 mg 100 mg Q12 GTB Last administered on 01/05/17 09:31; Admin Dose 100 MG; Start 12/31/16 at 21:59 Cefepime HCl (Maxipime 1gm/50 ml (Pmx)) 50 ml @ 100 mls/hr Q24H IVPB Last administered on 01/04/17 20:03; Admin Dose 100 MLS/HR; Start 01/02/17 at 20:00 Insulin Aspart (Novolog Insulin Pen) NOVOLOG *MILD* ALGORI... Q6 SC Last administered on 01/05/17 11:29; Admin Dose 1 UNIT; Start 01/03/17 at 00:00 Hydralazine HCl (Apresoline) 25 mg Q8 GTB Last administered on 01/05/17 06:33 ; Admin Dose 25 MG; Start 01/02/17 at 22:45 Ondansetron HCl (Zofran Tab) 4 mg Q8 GTB Last administered on 01/05/17 06:32; Admin Dose 4 MG; Start 01/02/17 at 22:50 Acetaminophen (Tylenol Liquid) 650 mg Q6 PRN GTB PAIN AND OR ELEVATED TEMP; Start 01/02/17 at 23:00 Fluconazole (Diflucan) 100 mg DAILY PO Last administered on 01/05/17 11:23; Admin Dose 100 MG; Start 01/05/17 at 10:30 GEOVANY IBARRA January 05, 2017 13:04
--- NOTE | 2017-01-05 13:16 | CONS ---
Date/Time of Note Date/Time of Note DATE: 01/05/17 TIME: 13:15 Assessment/Plan Assessment/Plan Chief Complaint/Hosp Course SUBJECTIVE: No acute changes, lying comfortably in bed, afebrile. Tolerates tube feeding. MICROBIOLOGY: Urine culture + yeast DIAGNOSTICS: Chest x-ray on admission revealed left lower lobe infiltrate. CT of the brain revealed no significant changes from previous findings. INDWELLINGS: Flores, PEG. ANTIMICROBIALS: Cefepime. PHYSICAL EXAMINATION: GENERAL: This is a cachectic, fragile, elderly man who is in no distress. HEENT: Head atraumatic, normocephalic. Sclerae anicteric. Buccal mucosa dry. NECK: Supple, trachea midline. CHEST: Rise symmetrical. Breath sounds diminished to bases. HEART: S1, S2. ABDOMEN: Soft. Bowel tones present. ASSESSMENT: 1. Pneumonia, possibly aspiration. 2. Failure to thrive with dysphagia, patient has PEG. 3. Anemia. 4. Dementia. 5. Diabetes. 6. History of cerebrovascular accident. PLAN: The patient remains stable. Continue present care, abx, add Diflucan. DW staff Problems: Consultation Date/Type/Reason Admit Date/Time December 29, 2016 at 04:03 Type of Consultation: id Exam/Review of Systems Vital Signs Vitals Vital Signs Date Time Temp Pulse Resp B/P Pulse Ox O2 Delivery O2 Flow Rate FiO2 01/05/17 13:12 71 18 94 21 01/05/17 07:30 98.1 160/76 01/02/17 20:50 Nasal Cannula 2.0 Intake and Output 01/04/17 01/04/17 01/05/17 15:00 23:00 07:00 Intake Total 550 ml 500 ml Output Total 700 ml 700 ml Balance -150 ml -200 ml Results Result Diagram: 01/05/17 0420 01/05/17 0420 Results 24 hrs Laboratory Tests Test 01/04/17 17:39 01/05/17 00:18 01/05/17 04:20 01/05/17 06:32 Bedside Glucose 141 127 135 White Blood Count 10.1 Red Blood Count 2.93 L Hemoglobin 8.2 L Hematocrit 24.8 L Mean Corpuscular Volume 84.6 Mean Corpuscular Hemoglobin 28.0 L Mean Corpuscular Hemoglobin Concent 33.1 Red Cell Distribution Width 15.4 H Platelet Count 366 Mean Platelet Volume 10.5 H Neutrophils % 60.3 Lymphocytes % 18.6 Monocytes % 8.1 Eosinophils % 11.5 H Basophils % 0.8 Nucleated Red Blood Cells % 0.0 Neutrophils # 6.1 Lymphocytes # 1.9 Monocytes # 0.8 Eosinophils # 1.2 H Basophils # 0.1 Nucleated Red Blood Cells # 0.0 Sodium Level 138 Potassium Level 4.0 Chloride Level 105 Carbon Dioxide Level 24 Anion Gap 13 Blood Urea Nitrogen 38 H Creatinine 2.46 H Glucose Level 121 Calcium Level 8.0 L Test 01/05/17 11:26 Bedside Glucose 161 Medications Medications Current Medications Acetaminophen (Tylenol Tab) 650 mg Q6H PRN PO PAIN AND OR ELEVATED TEMP; Start 12/29/16 at 10:30; Status Future Hold Miscellaneous Information 1 ea NOTE XX ; Start 12/29/16 at 10:30 Glucose (Glutose) 15 gm Q15M PRN PO DECREASED GLUCOSE; Start 12/29/16 at 10:30 Glucose (Glutose) 22.5 gm Q15M PRN PO DECREASED GLUCOSE; Start 12/29/16 at 10:30 Dextrose (D50w Syringe) 25 ml Q15M PRN IV DECREASED GLUCOSE; Start 12/29/16 at 10:30 Dextrose (D50w Syringe) 50 ml Q15M PRN IV DECREASED GLUCOSE; Start 12/29/16 at 10:30 Glucagon (Glucagen) 1 mg Q15M PRN IM DECREASED GLUCOSE; Start 12/29/16 at 10:30 Glucose (Glutose) 15 gm Q15M PRN BUCCAL DECREASED GLUCOSE; Start 12/29/16 at 10: 30 Hydralazine HCl (Apresoline) 10 mg Q6H PRN IV sbp greater than 165 Last administered on 01/04/17 20:04; Admin Dose 10 MG; Start 12/29/16 at 10:30 Amiodarone HCl (Cordarone) 100 mg DAILY PO Last administered on 01/05/17 09:34 ; Admin Dose 100 MG; Start 12/29/16 at 12:00 Gabapentin (Neurontin) 300 mg DAILY PO Last administered on 01/05/17 09:32; Admin Dose 300 MG; Start 12/29/16 at 12:00 Megestrol Acetate (Megace) 40 mg BID PO Last administered on 01/05/17 09:31; Admin Dose 40 MG; Start 12/29/16 at 12:00 Tamsulosin HCl (Flomax) 0.4 mg HS PO Last administered on 01/04/17 20:03; Admin Dose 0.4 MG; Start 12/29/16 at 21:00 Atorvastatin Calcium (Lipitor) 20 mg DAILY@21 PO Last administered on 20:03; Admin Dose 20 MG; Start 12/29/16 at 21:00 Pantoprazole (Protonix Tab) 40 mg QAM PO Last administered on 01/05/17 09:31; Admin Dose 40 MG; Start 12/31/16 at 09:00 Docusate Sodium 100 mg 100 mg Q12 GTB Last administered on 01/05/17 09:31; Admin Dose 100 MG; Start 12/31/16 at 21:59 Cefepime HCl (Maxipime 1gm/50 ml (Pmx)) 50 ml @ 100 mls/hr Q24H IVPB Last administered on 01/04/17 20:03; Admin Dose 100 MLS/HR; Start 01/02/17 at 20:00 Insulin Aspart (Novolog Insulin Pen) NOVOLOG *MILD* ALGORI... Q6 SC Last administered on 01/05/17 11:29; Admin Dose 1 UNIT; Start 01/03/17 at 00:00 Hydralazine HCl (Apresoline) 25 mg Q8 GTB Last administered on 01/05/17 06:33 ; Admin Dose 25 MG; Start 01/02/17 at 22:45 Ondansetron HCl (Zofran Tab) 4 mg Q8 GTB Last administered on 01/05/17 06:32; Admin Dose 4 MG; Start 01/02/17 at 22:50 Acetaminophen (Tylenol Liquid) 650 mg Q6 PRN GTB PAIN AND OR ELEVATED TEMP; Start 01/02/17 at 23:00 Fluconazole (Diflucan) 100 mg DAILY PO Last administered on 01/05/17 11:23; Admin Dose 100 MG; Start 01/05/17 at 10:30 KAYLA CASTREJON NP January 05, 2017 13:16
[2017-01-05] MEDS ORDERED: BARIUM SULFATE 135 ML (E-Z HD) PO ONE (15:23)
[2017-01-05] MEDS ORDERED: BISACODYL 10 MG SUPP PR PRN (15:30)
[2017-01-05 15:47] VITALS: BP 147/65; PULSE 74
[2017-01-05] MEDS ORDERED: VITAMIN A & D 5 GM OINT PACKET TOP ONE (16:38)
--- NOTE | 2017-01-05 17:02 | RADRPT ---
PROCEDURE: Video-fluoroscopy swallowing study. CLINICAL INDICATION: Dysphagia. TECHNIQUE: Fluoroscopic guided video swallowing study was done in conjunction with the speech ther apist. The study was confined to the oral, pharyngeal, and cervical phases of the swallowing mechani sm. 3.3 minutes of fluoroscopy time was used. COMPARISON: No prior study is available for comparison. FINDINGS: There is silent aspiration during swallowing nectar-thick liquid by cup. There is silent aspiration during swallowing puree. There is silent aspiration during swallowing thin liquid by cup and straw . IMPRESSION: 1. Abnormal study with silent aspiration during swallowing. 2. Please refer to the speech therapist's recommendations for future feedings. RPTAT: QQ .Allen Mackey MD, MD Date Time Electronically viewed and signed by .Allen Mackey MD, on 01/05/2017 17:02 .R/
--- NOTE | 2017-01-05 19:12 | CONS ---
Date/Time of Note Date/Time of Note DATE: 01/05/17 TIME: 19:11 Assessment/Plan Assessment/Plan Chief Complaint/Hosp Course IMPRESSION: 1. Patient has blavv-tn-[id number] kidney disease.better 2. Hyperkalemia.BETTER 3. Hypertension. 4. Diabetes mellitus. 5. Uremia. 6. Metabolic acidosis. 7. Leukocytosis. 8. Systemic inflammatory response syndrome. 9. The patient has incomplete database. 10. History of cerebrovascular accident. 11. History of gastrointestinal bleed. 12. History of pneumonia. 13 S/P PEG plan ck bmp lytes stable Problems: Consultation Date/Type/Reason Admit Date/Time December 29, 2016 at 04:03 Type of Consultation: renal 24 HR Interval Summary Constitutional: no complaints Exam/Review of Systems Vital Signs Vitals Vital Signs Date Time Temp Pulse Resp B/P Pulse Ox O2 Delivery O2 Flow Rate FiO2 01/05/17 15:47 74 147/65 01/05/17 13:12 18 94 21 01/05/17 07:30 98.1 01/02/17 20:50 Nasal Cannula 2.0 Intake and Output 01/04/17 01/04/17 01/05/17 15:00 23:00 07:00 Intake Total 550 ml 500 ml Output Total 700 ml 700 ml Balance -150 ml -200 ml Exam Respiratory: clear to auscultation Cardiovascular: regular rate and rhythm Gastrointestinal: soft Musculoskeletal: nl extremities to inspection Extremities: normal pulses Results Result Diagram: 01/05/17 0420 01/05/17 0420 Results 24 hrs Laboratory Tests Test 01/05/17 00:18 01/05/17 04:20 01/05/17 06:32 01/05/17 11:26 Bedside Glucose 127 135 161 White Blood Count 10.1 Red Blood Count 2.93 L Hemoglobin 8.2 L Hematocrit 24.8 L Mean Corpuscular Volume 84.6 Mean Corpuscular Hemoglobin 28.0 L Mean Corpuscular Hemoglobin Concent 33.1 Red Cell Distribution Width 15.4 H Platelet Count 366 Mean Platelet Volume 10.5 H Neutrophils % 60.3 Lymphocytes % 18.6 Monocytes % 8.1 Eosinophils % 11.5 H Basophils % 0.8 Nucleated Red Blood Cells % 0.0 Neutrophils # 6.1 Lymphocytes # 1.9 Monocytes # 0.8 Eosinophils # 1.2 H Basophils # 0.1 Nucleated Red Blood Cells # 0.0 Sodium Level 138 Potassium Level 4.0 Chloride Level 105 Carbon Dioxide Level 24 Anion Gap 13 Blood Urea Nitrogen 38 H Creatinine 2.46 H Glucose Level 121 Calcium Level 8.0 L Test 01/05/17 17:23 Bedside Glucose 158 Medications Medications Current Medications Acetaminophen (Tylenol Tab) 650 mg Q6H PRN PO PAIN AND OR ELEVATED TEMP; Start 12/29/16 at 10:30; Status Future Hold Miscellaneous Information 1 ea NOTE XX ; Start 12/29/16 at 10:30 Glucose (Glutose) 15 gm Q15M PRN PO DECREASED GLUCOSE; Start 12/29/16 at 10:30 Glucose (Glutose) 22.5 gm Q15M PRN PO DECREASED GLUCOSE; Start 12/29/16 at 10:30 Dextrose (D50w Syringe) 25 ml Q15M PRN IV DECREASED GLUCOSE; Start 12/29/16 at 10:30 Dextrose (D50w Syringe) 50 ml Q15M PRN IV DECREASED GLUCOSE; Start 12/29/16 at 10:30 Glucagon (Glucagen) 1 mg Q15M PRN IM DECREASED GLUCOSE; Start 12/29/16 at 10:30 Glucose (Glutose) 15 gm Q15M PRN BUCCAL DECREASED GLUCOSE; Start 12/29/16 at 10: 30 Hydralazine HCl (Apresoline) 10 mg Q6H PRN IV sbp greater than 165 Last administered on 01/04/17 20:04; Admin Dose 10 MG; Start 12/29/16 at 10:30 Amiodarone HCl (Cordarone) 100 mg DAILY PO Last administered on 01/05/17 09:34 ; Admin Dose 100 MG; Start 12/29/16 at 12:00 Gabapentin (Neurontin) 300 mg DAILY PO Last administered on 01/05/17 09:32; Admin Dose 300 MG; Start 12/29/16 at 12:00 Megestrol Acetate (Megace) 40 mg BID PO Last administered on 01/05/17 09:31; Admin Dose 40 MG; Start 12/29/16 at 12:00 Tamsulosin HCl (Flomax) 0.4 mg HS PO Last administered on 01/04/17 20:03; Admin Dose 0.4 MG; Start 12/29/16 at 21:00 Atorvastatin Calcium (Lipitor) 20 mg DAILY@21 PO Last administered on 20:03; Admin Dose 20 MG; Start 12/29/16 at 21:00 Pantoprazole (Protonix Tab) 40 mg QAM PO Last administered on 01/05/17 09:31; Admin Dose 40 MG; Start 12/31/16 at 09:00 Docusate Sodium 100 mg 100 mg Q12 GTB Last administered on 01/05/17 09:31; Admin Dose 100 MG; Start 12/31/16 at 21:59 Cefepime HCl (Maxipime 1gm/50 ml (Pmx)) 50 ml @ 100 mls/hr Q24H IVPB Last administered on 01/04/17 20:03; Admin Dose 100 MLS/HR; Start 01/02/17 at 20:00 Insulin Aspart (Novolog Insulin Pen) NOVOLOG *MILD* ALGORI... Q6 SC Last administered on 01/05/17 17:29; Admin Dose 1 UNIT; Start 01/03/17 at 00:00 Hydralazine HCl (Apresoline) 25 mg Q8 GTB Last administered on 01/05/17 13:43 ; Admin Dose 25 MG; Start 01/02/17 at 22:45 Ondansetron HCl (Zofran Tab) 4 mg Q8 GTB Last administered on 01/05/17 13:43; Admin Dose 4 MG; Start 01/02/17 at 22:50 Acetaminophen (Tylenol Liquid) 650 mg Q6 PRN GTB PAIN AND OR ELEVATED TEMP; Start 01/02/17 at 23:00 Fluconazole (Diflucan) 100 mg DAILY PO Last administered on 01/05/17 11:23; Admin Dose 100 MG; Start 01/05/17 at 10:30 Polyethylene Glycol (Miralax) 17 gm DAILY PO ; Start 01/06/17 at 09:00 Bisacodyl (Dulcolax Supp) 10 mg DAILY PRN NM CONSTIPATION Last administered on 01/05/17 16:40; Admin Dose 10 MG; Start 01/05/17 at 15:30 ABBY RAMOS MD January 05, 2017 19:12
[2017-01-05] MEDS: hydrALAzine 20 MG INJ IV PRN (19:40)
[2017-01-05] MEDS: CEFEPIME 1GM/50 ML (PMX) 50 ML IVPB SCH (19:41)
[2017-01-05 20:01] VITALS: BP 186/84; RESP 17
[2017-01-05 20:42] VITALS: BP 158/70
[2017-01-05] MEDS: TAMSULOSIN (SR) 0.4 MG CAP PO SCH (21:09)
[2017-01-05] MEDS: ATORVASTATIN 20 MG TAB PO SCH (21:09)
[2017-01-06 00:12] VITALS: BP 132/61; PULSE 81
[2017-01-06] MEDS: ALBUTEROL/IPRATROPIUM (NEB) 3 ML AMP HHN SCH ×6 (01:52→20:18)
[2017-01-06] MEDS: ONDANSETRON 4 MG TAB GTB SCH ×3 (05:27→21:00)
[2017-01-06] MEDS: INSULIN ASPART [NOVOLOG] 3 ML PEN SC SCH ×4 (05:35→17:49)
[2017-01-06 05:46] VITALS: BP 153/70
[2017-01-06 05:52] LABS: ADD SCAN DIFF NO
[2017-01-06 06:03] LABS: BASOPHIL # 0.1 10^3/ul (0.0-0.1); EOSINOPHILS # 0.9 10^3/ul (0.0-0.5); EOSINOPHILS % 8.5 % (0.0-7.0); HEMATOCRIT 24.4 % (42.0-52.0); LYMPHOCYTES # 2.3 10^3/ul (0.8-2.9); MEAN CORPUSCULAR HEMOGLOBIN 27.8 pg (29.0-33.0); MEAN CORPUSCULAR HGB CONC 32.8 g/dl (32.0-37.0); MEAN CORPUSCULAR VOLUME 84.7 fl (82.0-101.0); MEAN PLATELET VOLUME 10.5 fl (7.4-10.4); MONOCYTE # 0.7 10^3/ul (0.3-0.9); MONOCYTES % 6.8 % (0.0-11.0); NEUTROPHIL # 6.3 10^3/ul (1.6-7.5); NEUTROPHILS % 60.9 % (39.0-77.0); PLATELET COUNT 375 10^3/UL (140-415); RED BLOOD COUNT 2.88 10^6/ul (4.70-6.10); RED CELL DISTRIBUTION WIDTH 15.3 % (11.5-14.5); WHITE BLOOD COUNT 10.4 10^3/ul (4.8-10.8)
[2017-01-06 06:23] LABS: POTASSIUM 4.2 mmol/L (3.5-5.1)
[2017-01-06 06:25] LABS: CREATININE 2.49 mg/dl (0.61-1.24)
[2017-01-06 06:26] LABS: CALCIUM 8.1 mg/dl (8.4-10.2)
[2017-01-06 07:54] VITALS: BP 151/70; RESP 20
[2017-01-06] MEDS: GABAPENTIN 300 MG CAP PO SCH (08:05)
[2017-01-06] MEDS: PANTOPRAZOLE (EC) 40 MG TAB PO SCH (08:05)
[2017-01-06] MEDS: MEGESTROL 40 MG TAB PO SCH ×2 (08:05→20:07)
[2017-01-06] MEDS: FLUCONAZOLE 100 MG TAB PO SCH (08:05)
[2017-01-06] MEDS: DOCUSATE SODIUM 10 MG/ML (10ML CUP) GTB SCH ×2 (08:06→20:07)
[2017-01-06] MEDS: AMIODARONE 200 MG TAB PO SCH (08:06)
[2017-01-06] MEDS ORDERED: VITAMIN A & D 5 GM OINT PACKET TOP ONE (08:14)
[2017-01-06] MEDS: POLYETHYLENE GLYCOL 17 GM PACKET PO SCH (08:15)
--- NOTE | 2017-01-06 13:48 | PN ---
Date/Time of Note Date/Time of Note DATE: 01/06/17 TIME: 13:45 Assessment/Plan VTE Prophylaxis VTE Prophylaxis Intervention: SCD's Lines/Catheters IV C[facility]ter Type [facility]from [facility] Urinary Cath still in place: Yes Reason Cath still needed: urinary retention Assessment/Plan Chief Complaint/Hosp Course ASSESSMENT AND PLAN: 1. Altered level of consciousness, most likely secondary to electrolyte imbalances secondary to metabolic encephalopathy. 2. Possible healthcare-acquired pneumonia. Continue patient on cefepime and vancomycin. 3. Systemic inflammatory response syndrome secondary to pneumonia. 4. Diastolic congestive heart failure. 5. Chronic kidney disease. 6. Hyperkalemia., Resolved. 7. Anemia, status post blood transfusion, continue to monitor hemoglobin and hematocrit. Started on Epogen. 8. Severe protein calorie malnutrition as evidenced by low albumin of 2.9. Dr. Cabral is following in gastroenterology consultation. Continue G-tube feeding. 9. History of cerebrovascular accident. 10. Hypertension. 11. History of paroxysmal atrial fibrillation. 12. Diabetes mellitus. Continue NovoLog per mild algorithm sliding scale. 13. Dysphagia, status post G-tube placement. With silent aspiration per video swallow eval, per speech therapy may have nectar thick by spoon only. Further recommendations based on clinical course. Plan of care discussed with Dr. Patel. Problems: Subjective 24 Hr Interval Summary Free Text/Dictation Patient remains afebrile tolerates G-tube feeding well at 30 cc/h, will increase G-tube feeding according to grill chef recommendation. Exam/Review of Systems Vital Signs Vitals Vital Signs Date Time Temp Pulse Resp B/P Pulse Ox O2 Delivery O2 Flow Rate FiO2 01/06/17 07:54 98.6 74 20 151/70 98 01/06/17 05:19 21 01/02/17 20:50 Nasal Cannula 2.0 Intake and Output 01/05/17 01/05/17 01/06/17 15:00 23:00 07:00 Intake Total 590 ml 560 ml Output Total 450 ml 700 ml Balance 140 ml -140 ml Exam GENERAL: Well-developed, cachectic, elderly fragile gentleman, currently is awake, alert to name. HEENT: Head is atraumatic, normocephalic. Pupils equal and round, reactive to light and accommodation. Oral mucosa is pink, moist. NECK: Supple. No cervical lymphadenopathy, no thyromegaly. CHEST: Lung sounds clear bilaterally, slightly diminished at the bases. There are no rhonchi, wheezes, rales noted. CARDIOVASCULAR: Normal S1, S2. No murmurs, clicks, rubs noted. ABDOMEN: Flat, soft, nondistended, nontender. Bowel sounds present. G-tube. EXTREMITIES: There is no edema, clubbing, cyanosis. Pulses equal bilaterally 2 +. SKIN: The patient has a sacral small stage II ulcer. No rash, petechiae noted. NEUROLOGICAL: The patient is awake, alert to name and situation, otherwise confused. The patient with history of bilateral lower extremity weakness, however was able to ambulate using walker at care home facility. Results Result Diagram: 01/06/1753701/06/17537 Results 24 hrs Laboratory Tests Test 01/05/17 17:23 01/06/17 00:09 01/06/17 05:30 01/06/17 05:38 Bedside Glucose 158 136 146 White Blood Count 10.4 Red Blood Count 2.88 L Hemoglobin 8.0 L Hematocrit 24.4 L Mean Corpuscular Volume 84.7 Mean Corpuscular Hemoglobin 27.8 L Mean Corpuscular Hemoglobin Concent 32.8 Red Cell Distribution Width 15.3 H Platelet Count 375 Mean Platelet Volume 10.5 H Neutrophils % 60.9 Lymphocytes % 22.0 Monocytes % 6.8 Eosinophils % 8.5 H Basophils % 1.0 Nucleated Red Blood Cells % 0.0 Neutrophils # 6.3 Lymphocytes # 2.3 Monocytes # 0.7 Eosinophils # 0.9 H Basophils # 0.1 Nucleated Red Blood Cells # 0.0 Sodium Level 137 Potassium Level 4.2 Chloride Level 104 Carbon Dioxide Level 24 Anion Gap 13 Blood Urea Nitrogen 42 H Creatinine 2.49 H Glucose Level 132 Calcium Level 8.1 L Test 01/06/17 11:31 Bedside Glucose 135 Medications Medications Current Medications Acetaminophen (Tylenol Tab) 650 mg Q6H PRN PO PAIN AND OR ELEVATED TEMP; Start 12/29/16 at 10:30; Status Future Hold Miscellaneous Information 1 ea NOTE XX ; Start 12/29/16 at 10:30 Glucose (Glutose) 15 gm Q15M PRN PO DECREASED GLUCOSE; Start 12/29/16 at 10:30 Glucose (Glutose) 22.5 gm Q15M PRN PO DECREASED GLUCOSE; Start 12/29/16 at 10:30 Dextrose (D50w Syringe) 25 ml Q15M PRN IV DECREASED GLUCOSE; Start 12/29/16 at 10:30 Dextrose (D50w Syringe) 50 ml Q15M PRN IV DECREASED GLUCOSE; Start 12/29/16 at 10:30 Glucagon (Glucagen) 1 mg Q15M PRN IM DECREASED GLUCOSE; Start 12/29/16 at 10:30 Glucose (Glutose) 15 gm Q15M PRN BUCCAL DECREASED GLUCOSE; Start 12/29/16 at 10: 30 Hydralazine HCl (Apresoline) 10 mg Q6H PRN IV sbp greater than 165 Last administered on 01/05/17 19:40; Admin Dose 10 MG; Start 12/29/16 at 10:30 Amiodarone HCl (Cordarone) 100 mg DAILY PO Last administered on 01/06/17 08:06 ; Admin Dose 100 MG; Start 12/29/16 at 12:00 Gabapentin (Neurontin) 300 mg DAILY PO Last administered on 01/06/17 08:05; Admin Dose 300 MG; Start 12/29/16 at 12:00 Megestrol Acetate (Megace) 40 mg BID PO Last administered on 01/06/17 08:05; Admin Dose 40 MG; Start 12/29/16 at 12:00 Tamsulosin HCl (Flomax) 0.4 mg HS PO Last administered on 01/05/17 21:09; Admin Dose 0.4 MG; Start 12/29/16 at 21:00 Atorvastatin Calcium (Lipitor) 20 mg DAILY@21 PO Last administered on 21:09; Admin Dose 20 MG; Start 12/29/16 at 21:00 Pantoprazole (Protonix Tab) 40 mg QAM PO Last administered on 01/06/17 08:05; Admin Dose 40 MG; Start 12/31/16 at 09:00 Docusate Sodium 100 mg 100 mg Q12 GTB Last administered on 01/06/17 08:06; Admin Dose 100 MG; Start 12/31/16 at 21:59 Cefepime HCl (Maxipime 1gm/50 ml (Pmx)) 50 ml @ 100 mls/hr Q24H IVPB Last administered on 01/05/17 19:41; Admin Dose 100 MLS/HR; Start 01/02/17 at 20:00 Insulin Aspart (Novolog Insulin Pen) NOVOLOG *MILD* ALGORI... Q6 SC Last administered on 01/06/17 05:35; Admin Dose 1 UNIT; Start 01/03/17 at 00:00 Hydralazine HCl (Apresoline) 25 mg Q8 GTB Last administered on 01/06/17 05:27 ; Admin Dose 25 MG; Start 01/02/17 at 22:45 Ondansetron HCl (Zofran Tab) 4 mg Q8 GTB Last administered on 01/06/17 05:27; Admin Dose 4 MG; Start 01/02/17 at 22:50 Acetaminophen (Tylenol Liquid) 650 mg Q6 PRN GTB PAIN AND OR ELEVATED TEMP; Start 01/02/17 at 23:00 Fluconazole (Diflucan) 100 mg DAILY PO Last administered on 01/06/17 08:05; Admin Dose 100 MG; Start 01/05/17 at 10:30 Polyethylene Glycol (Miralax) 17 gm DAILY PO Last administered on 01/06/17 08: 15; Admin Dose 17 GM; Start 01/06/17 at 09:00 Bisacodyl (Dulcolax Supp) 10 mg DAILY PRN [place] CONSTIPATION Last administered on 01/05/17 16:40; Admin Dose 10 MG; Start 01/05/17 at 15:30 Epoetin Taqueria (Epogen (Non Esrd/Non Oncology)) 10,000 units MoWeFr@17 SC ; Start 01/06/17 at 17:00 GEOVANY IBARRA January 06, 2017 13:48
--- NOTE | 2017-01-06 14:34 | CONS ---
Date/Time of Note Date/Time of Note DATE: 01/06/17 TIME: 14:34 Assessment/Plan Assessment/Plan Chief Complaint/Hosp Course SUBJECTIVE: No acute changes, lying comfortably in bed, afebrile. Tolerates tube feeding. MICROBIOLOGY: Urine culture + yeast DIAGNOSTICS: Chest x-ray on admission revealed left lower lobe infiltrate. CT of the brain revealed no significant changes from previous findings. INDWELLINGS: Flores, PEG. ANTIMICROBIALS: Cefepime, Diflucan. PHYSICAL EXAMINATION: GENERAL: This is a cachectic, fragile, elderly man who is in no distress. HEENT: Head atraumatic, normocephalic. Sclerae anicteric. Buccal mucosa dry. NECK: Supple, trachea midline. CHEST: Rise symmetrical. Breath sounds diminished to bases. HEART: S1, S2. ABDOMEN: Soft. Bowel tones present. ASSESSMENT: 1. Pneumonia, possibly aspiration. 2. Failure to thrive with dysphagia, patient has PEG. 3. Anemia. 4. Dementia. 5. Diabetes. 6. History of cerebrovascular accident. PLAN: The patient remains stable. Continue present care DW staff Problems: Consultation Date/Type/Reason Admit Date/Time December 29, 2016 at 04:03 Type of Consultation: id Exam/Review of Systems Vital Signs Vitals Vital Signs Date Time Temp Pulse Resp B/P Pulse Ox O2 Delivery O2 Flow Rate FiO2 01/06/17 07:54 98.6 74 20 151/70 98 01/06/17 05:19 21 01/02/17 20:50 Nasal Cannula 2.0 Intake and Output 01/05/17 01/05/17 01/06/17 14:59 22:59 06:59 Intake Total 590 ml 560 ml Output Total 450 ml 700 ml Balance 140 ml -140 ml Results Result Diagram: 01/06/17 0538 01/06/17 0538 Results 24 hrs Laboratory Tests Test 01/05/17 17:23 01/06/17 00:09 01/06/17 05:30 01/06/17 05:38 Bedside Glucose 158 136 146 White Blood Count 10.4 Red Blood Count 2.88 L Hemoglobin 8.0 L Hematocrit 24.4 L Mean Corpuscular Volume 84.7 Mean Corpuscular Hemoglobin 27.8 L Mean Corpuscular Hemoglobin Concent 32.8 Red Cell Distribution Width 15.3 H Platelet Count 375 Mean Platelet Volume 10.5 H Neutrophils % 60.9 Lymphocytes % 22.0 Monocytes % 6.8 Eosinophils % 8.5 H Basophils % 1.0 Nucleated Red Blood Cells % 0.0 Neutrophils # 6.3 Lymphocytes # 2.3 Monocytes # 0.7 Eosinophils # 0.9 H Basophils # 0.1 Nucleated Red Blood Cells # 0.0 Sodium Level 137 Potassium Level 4.2 Chloride Level 104 Carbon Dioxide Level 24 Anion Gap 13 Blood Urea Nitrogen 42 H Creatinine 2.49 H Glucose Level 132 Calcium Level 8.1 L Test 01/06/17 11:31 Bedside Glucose 135 Medications Medications Current Medications Acetaminophen (Tylenol Tab) 650 mg Q6H PRN PO PAIN AND OR ELEVATED TEMP; Start 12/29/16 at 10:30; Status Future Hold Miscellaneous Information 1 ea NOTE XX ; Start 12/29/16 at 10:30 Glucose (Glutose) 15 gm Q15M PRN PO DECREASED GLUCOSE; Start 12/29/16 at 10:30 Glucose (Glutose) 22.5 gm Q15M PRN PO DECREASED GLUCOSE; Start 12/29/16 at 10:30 Dextrose (D50w Syringe) 25 ml Q15M PRN IV DECREASED GLUCOSE; Start 12/29/16 at 10:30 Dextrose (D50w Syringe) 50 ml Q15M PRN IV DECREASED GLUCOSE; Start 12/29/16 at 10:30 Glucagon (Glucagen) 1 mg Q15M PRN IM DECREASED GLUCOSE; Start 12/29/16 at 10:30 Glucose (Glutose) 15 gm Q15M PRN BUCCAL DECREASED GLUCOSE; Start 12/29/16 at 10: 30 Hydralazine HCl (Apresoline) 10 mg Q6H PRN IV sbp greater than 165 Last administered on 01/05/17 19:40; Admin Dose 10 MG; Start 12/29/16 at 10:30 Amiodarone HCl (Cordarone) 100 mg DAILY PO Last administered on 01/06/17 08:06 ; Admin Dose 100 MG; Start 12/29/16 at 12:00 Gabapentin (Neurontin) 300 mg DAILY PO Last administered on 01/06/17 08:05; Admin Dose 300 MG; Start 12/29/16 at 12:00 Megestrol Acetate (Megace) 40 mg BID PO Last administered on 01/06/17 08:05; Admin Dose 40 MG; Start 12/29/16 at 12:00 Tamsulosin HCl (Flomax) 0.4 mg HS PO Last administered on 01/05/17 21:09; Admin Dose 0.4 MG; Start 12/29/16 at 21:00 Atorvastatin Calcium (Lipitor) 20 mg DAILY@21 PO Last administered on 21:09; Admin Dose 20 MG; Start 12/29/16 at 21:00 Pantoprazole (Protonix Tab) 40 mg QAM PO Last administered on 01/06/17 08:05; Admin Dose 40 MG; Start 12/31/16 at 09:00 Docusate Sodium 100 mg 100 mg Q12 GTB Last administered on 01/06/17 08:06; Admin Dose 100 MG; Start 12/31/16 at 21:59 Cefepime HCl (Maxipime 1gm/50 ml (Pmx)) 50 ml @ 100 mls/hr Q24H IVPB Last administered on 01/05/17 19:41; Admin Dose 100 MLS/HR; Start 01/02/17 at 20:00 Insulin Aspart (Novolog Insulin Pen) NOVOLOG *MILD* ALGORI... Q6 SC Last administered on 01/06/17 05:35; Admin Dose 1 UNIT; Start 01/03/17 at 00:00 Hydralazine HCl (Apresoline) 25 mg Q8 GTB Last administered on 01/06/17 05:27 ; Admin Dose 25 MG; Start 01/02/17 at 22:45 Ondansetron HCl (Zofran Tab) 4 mg Q8 GTB Last administered on 01/06/17 05:27; Admin Dose 4 MG; Start 01/02/17 at 22:50 Acetaminophen (Tylenol Liquid) 650 mg Q6 PRN GTB PAIN AND OR ELEVATED TEMP; Start 01/02/17 at 23:00 Fluconazole (Diflucan) 100 mg DAILY PO Last administered on 01/06/17 08:05; Admin Dose 100 MG; Start 01/05/17 at 10:30 Polyethylene Glycol (Miralax) 17 gm DAILY PO Last administered on 01/06/17 08: 15; Admin Dose 17 GM; Start 01/06/17 at 09:00 Bisacodyl (Dulcolax Supp) 10 mg DAILY PRN [place] CONSTIPATION Last administered on 01/05/17t 16:40; Admin Dose 10 MG; Start 01/05/17 at 15:30 Epoetin Taqueria (Epogen (Non Esrd/Non Oncology)) 10,000 units MoWeFr@17 SC ; Start 01/06/17 at 17:00 KAYLA CASTREJON NP January 06, 2017 14:34
[2017-01-06] MEDS: EPOETIN 10000 UNITS/ML (NON ESRD/NON ONCOLOGY) SC SCH (17:37)
--- NOTE | 2017-01-06 18:05 | CONS ---
Date/Time of Note Date/Time of Note DATE: 01/06/17 TIME: 18:05 Assessment/Plan Assessment/Plan Additional Assessment/Plan Additional Assessment/Plan IMPRESSION: 1. Dysphagia. Status post PEG 2. Prerenal azotemia. 3. History of hypertension. 4. Cerebrovascular accident. 5. Chronic kidney disease. 6. Cachexia and malnutrition. 7. Diabetes mellitus. 8. Paroxysmal atrial fibrillation. 9. Anemia most probably of chronic disease Plan Increase feeding slowly, now to 40 cc/h No active GI bleeding Consultation Date/Type/Reason Admit Date/Time December 29, 2016 at 04:03 Type of Consultation: id [id number] HR Interval Summary Constitutional: improved, no complaints Exam/Review of Systems Vital Signs Vitals Vital Signs Date Time Temp Pulse Resp B/P Pulse Ox O2 Delivery O2 Flow Rate FiO2 01/06/17 17:06 71 18 96 21 01/06/17 07:54 98.6 151/70 01/02/17 20:50 Nasal Cannula 2.0 Intake and Output 01/05/17 01/05/17 01/06/17 15:00 23:00 07:00 Intake Total 590 ml 560 ml Output Total 450 ml 700 ml Balance 140 ml -140 ml Exam Constitutional: alert, oriented, well developed Psych: nl mood/affect, no complaints Head: atraumatic, normocephalic Eyes: EOMI, PERRL, nl conjunctiva, nl lids, nl sclera ENMT: nl external ears & nose, nl lips & teeth, nl nasal mucosa & septum Neck: non-tender, supple Respiratory: clear to auscultation, normal air movement Cardiovascular: nl pulses, regular rate and rhythm Gastrointestinal: nl liver, spleen, non-tender, soft Musculoskeletal: nl extremities to inspection, nl gait and stance Extremities: normal pulses Neurological: COMMUNICATIONS SCIENTIST II-XII intact, nl mental status, nl speech, nl strength Skin: nl turgor, No rash or lesions Lymph: nl lymph nodes Results Result Diagram: 01/06/17 0538 01/06/1738 Results 24 hrs Laboratory Tests Test 01/06/17 00:09 01/06/17 05:30 01/06/17 05:38 01/06/17 11:31 Bedside Glucose 136 146 135 White Blood Count 10.4 Red Blood Count 2.88 L Hemoglobin 8.0 L Hematocrit 24.4 L Mean Corpuscular Volume 84.7 Mean Corpuscular Hemoglobin 27.8 L Mean Corpuscular Hemoglobin Concent 32.8 Red Cell Distribution Width 15.3 H Platelet Count 375 Mean Platelet Volume 10.5 H Neutrophils % 60.9 Lymphocytes % 22.0 Monocytes % 6.8 Eosinophils % 8.5 H Basophils % 1.0 Nucleated Red Blood Cells % 0.0 Neutrophils # 6.3 Lymphocytes # 2.3 Monocytes # 0.7 Eosinophils # 0.9 H Basophils # 0.1 Nucleated Red Blood Cells # 0.0 Sodium Level 137 Potassium Level 4.2 Chloride Level 104 Carbon Dioxide Level 24 Anion Gap 13 Blood Urea Nitrogen 42 H Creatinine 2.49 H Glucose Level 132 Calcium Level 8.1 L Test 01/06/17 17:41 Bedside Glucose 161 Medications Medications Current Medications Acetaminophen (Tylenol Tab) 650 mg Q6H PRN PO PAIN AND OR ELEVATED TEMP; Start 12/29/16 at 10:30; Status Future Hold Miscellaneous Information 1 ea NOTE XX ; Start 12/29/16 at 10:30 Glucose (Glutose) 15 gm Q15M PRN PO DECREASED GLUCOSE; Start 12/29/16 at 10:30 Glucose (Glutose) 22.5 gm Q15M PRN PO DECREASED GLUCOSE; Start 12/29/16 at 10:30 Dextrose (D50w Syringe) 25 ml Q15M PRN IV DECREASED GLUCOSE; Start 12/29/16 at 10:30 Dextrose (D50w Syringe) 50 ml Q15M PRN IV DECREASED GLUCOSE; Start 12/29/16 at 10:30 Glucagon (Glucagen) 1 mg Q15M PRN IM DECREASED GLUCOSE; Start 12/29/16 at 10:30 Glucose (Glutose) 15 gm Q15M PRN BUCCAL DECREASED GLUCOSE; Start 12/29/16 at 10: 30 Hydralazine HCl (Apresoline) 10 mg Q6H PRN IV sbp greater than 165 Last administered on 01/05/17 19:40; Admin Dose 10 MG; Start 12/29/16 at 10:30 Amiodarone HCl (Cordarone) 100 mg DAILY PO Last administered on 01/06/17 08:06 ; Admin Dose 100 MG; Start 12/29/16 at 12:00 Gabapentin (Neurontin) 300 mg DAILY PO Last administered on 01/06/17 08:05; Admin Dose 300 MG; Start 12/29/16 at 12:00 Megestrol Acetate (Megace) 40 mg BID PO Last administered on 01/06/17 08:05; Admin Dose 40 MG; Start 12/29/16 at 12:00 Tamsulosin HCl (Flomax) 0.4 mg HS PO Last administered on 01/05/17 21:09; Admin Dose 0.4 MG; Start 12/29/16 at 21:00 Atorvastatin Calcium (Lipitor) 20 mg DAILY@21 PO Last administered on 21:09; Admin Dose 20 MG; Start 12/29/16 at 21:00 Pantoprazole (Protonix Tab) 40 mg QAM PO Last administered on 01/06/17 08:05; Admin Dose 40 MG; Start 12/31/16 at 09:00 Docusate Sodium 100 mg 100 mg Q12 GTB Last administered on 01/06/17 08:06; Admin Dose 100 MG; Start 12/31/16 at 21:59 Cefepime HCl (Maxipime 1gm/50 ml (Pmx)) 50 ml @ 100 mls/hr Q24H IVPB Last administered on 01/05/17 19:41; Admin Dose 100 MLS/HR; Start 01/02/17 at 20:00 Insulin Aspart (Novolog Insulin Pen) NOVOLOG *MILD* ALGORI... Q6 SC Last administered on 01/06/17 17:49; Admin Dose 1 UNIT; Start 01/03/17 at 00:00 Hydralazine HCl (Apresoline) 25 mg Q8 GTB Last administered on 01/06/17 14:38 ; Admin Dose 25 MG; Start 01/02/17 at 22:45 Ondansetron HCl (Zofran Tab) 4 mg Q8 GTB Last administered on 01/06/17 14:38; Admin Dose 4 MG; Start 01/02/17 at 22:50 Acetaminophen (Tylenol Liquid) 650 mg Q6 PRN GTB PAIN AND OR ELEVATED TEMP; Start 01/02/17 at 23:00 Fluconazole (Diflucan) 100 mg DAILY PO Last administered on 01/06/17 08:05; Admin Dose 100 MG; Start 01/05/17 at 10:30 Polyethylene Glycol (Miralax) 17 gm DAILY PO Last administered on 01/06/17 08: 15; Admin Dose 17 GM; Start 01/06/17 at 09:00 Bisacodyl (Dulcolax Supp) 10 mg DAILY PRN [place] CONSTIPATION Last administered on 01/05/17 16:40; Admin Dose 10 MG; Start 01/05/17 at 15:30 Epoetin Taqueria (Epogen (Non Esrd/Non Oncology)) 10,000 units MoWeFr@17 SC Last administered on 01/06/17 17:37; Admin Dose 10,000 UNITS; Start 01/06/17 at 17: 00 JEFRY CERNA MD January 06, 2017 18:05
--- NOTE | 2017-01-06 18:06 | CONS ---
Date/Time of Note Date/Time of Note DATE: 01/06/17 TIME: 18:06 Assessment/Plan Assessment/Plan Additional Assessment/Plan IMPRESSION: 1. Dysphagia. Status post PEG 2. Prerenal azotemia. 3. History of hypertension. 4. Cerebrovascular accident. 5. Chronic kidney disease. 6. Cachexia and malnutrition. 7. Diabetes mellitus. 8. Paroxysmal atrial fibrillation. 9. Anemia most probably of chronic disease Plan Increase feeding slowly No active GI bleeding Consultation Date/Type/Reason Admit Date/Time December 29, 2016 at 04:03 Type of Consultation: id 24 HR Interval Summary Free Text/Dictation Patient was seen by me yesterday 01/05/2017 He was tolerating feeding. No complaint Exam/Review of Systems Vital Signs Vitals Vital Signs Date Time Temp Pulse Resp B/P Pulse Ox O2 Delivery O2 Flow Rate FiO2 01/06/17 17:06 71 18 96 21 01/06/17 07:54 98.6 151/70 01/02/17 20:50 Nasal Cannula 2.0 Intake and Output 01/05/17 01/05/17 01/06/17 15:00 23:00 07:00 Intake Total 590 ml 560 ml Output Total 450 ml 700 ml Balance 140 ml -140 ml Exam Constitutional: alert, oriented, well developed Psych: nl mood/affect, no complaints Head: atraumatic, normocephalic Eyes: EOMI, PERRL, nl conjunctiva, nl lids, nl sclera ENMT: nl external ears & nose, nl lips & teeth, nl nasal mucosa & septum Neck: non-tender, supple Respiratory: clear to auscultation, normal air movement Cardiovascular: nl pulses, regular rate and rhythm Gastrointestinal: nl liver, spleen, non-tender, soft Musculoskeletal: nl extremities to inspection, nl gait and stance Extremities: normal pulses Neurological: CLIENT MANAGER LARGE LAW II-XII intact, nl mental status, nl speech, nl strength Skin: nl turgor, No rash or lesions Lymph: nl lymph nodes Results Result Diagram: 01/06/17 0538 01/06/17 0538 Results 24 hrs Laboratory Tests Test 01/06/17 00:09 01/06/17 05:30 01/06/17 05:38 01/06/17 11:31 Bedside Glucose 136 146 135 White Blood Count 10.4 Red Blood Count 2.88 L Hemoglobin 8.0 L Hematocrit 24.4 L Mean Corpuscular Volume 84.7 Mean Corpuscular Hemoglobin 27.8 L Mean Corpuscular Hemoglobin Concent 32.8 Red Cell Distribution Width 15.3 H Platelet Count 375 Mean Platelet Volume 10.5 H Neutrophils % 60.9 Lymphocytes % 22.0 Monocytes % 6.8 Eosinophils % 8.5 H Basophils % 1.0 Nucleated Red Blood Cells % 0.0 Neutrophils # 6.3 Lymphocytes # 2.3 Monocytes # 0.7 Eosinophils # 0.9 H Basophils # 0.1 Nucleated Red Blood Cells # 0.0 Sodium Level 137 Potassium Level 4.2 Chloride Level 104 Carbon Dioxide Level 24 Anion Gap 13 Blood Urea Nitrogen 42 H Creatinine 2.49 H Glucose Level 132 Calcium Level 8.1 L Test 01/06/17 17:41 Bedside Glucose 161 Medications Medications Current Medications Acetaminophen (Tylenol Tab) 650 mg Q6H PRN PO PAIN AND OR ELEVATED TEMP; Start 12/29/16 at 10:30; Status Future Hold Miscellaneous Information 1 ea NOTE XX ; Start 12/29/16 at 10:30 Glucose (Glutose) 15 gm Q15M PRN PO DECREASED GLUCOSE; Start 12/29/16 at 10:30 Glucose (Glutose) 22.5 gm Q15M PRN PO DECREASED GLUCOSE; Start 12/29/16 at 10:30 Dextrose (D50w Syringe) 25 ml Q15M PRN IV DECREASED GLUCOSE; Start 12/29/16 at 10:30 Dextrose (D50w Syringe) 50 ml Q15M PRN IV DECREASED GLUCOSE; Start 12/29/16 at 10:30 Glucagon (Glucagen) 1 mg Q15M PRN IM DECREASED GLUCOSE; Start 12/29/16 at 10:30 Glucose (Glutose) 15 gm Q15M PRN BUCCAL DECREASED GLUCOSE; Start 12/29/16 at 10: 30 Hydralazine HCl (Apresoline) 10 mg Q6H PRN IV sbp greater than 165 Last administered on 01/05/17 19:40; Admin Dose 10 MG; Start 12/29/16 at 10:30 Amiodarone HCl (Cordarone) 100 mg DAILY PO Last administered on 01/06/17 08:06 ; Admin Dose 100 MG; Start 12/29/16 at 12:00 Gabapentin (Neurontin) 300 mg DAILY PO Last administered on 01/06/17 08:05; Admin Dose 300 MG; Start 12/29/16 at 12:00 Megestrol Acetate (Megace) 40 mg BID PO Last administered on 01/06/17 08:05; Admin Dose 40 MG; Start 12/29/16 at 12:00 Tamsulosin HCl (Flomax) 0.4 mg HS PO Last administered on 01/05/17 21:09; Admin Dose 0.4 MG; Start 12/29/16 at 21:00 Atorvastatin Calcium (Lipitor) 20 mg DAILY@21 PO Last administered on 21:09; Admin Dose 20 MG; Start 12/29/16 at 21:00 Pantoprazole (Protonix Tab) 40 mg QAM PO Last administered on 01/06/17 08:05; Admin Dose 40 MG; Start 12/31/16 at 09:00 Docusate Sodium 100 mg 100 mg Q12 GTB Last administered on 01/06/17 08:06; Admin Dose 100 MG; Start 12/31/16 at 21:59 Cefepime HCl (Maxipime 1gm/50 ml (Pmx)) 50 ml @ 100 mls/hr Q24H IVPB Last administered on 01/05/17 19:41; Admin Dose 100 MLS/HR; Start 01/02/17 at 20:00 Insulin Aspart (Novolog Insulin Pen) NOVOLOG *MILD* ALGORI... Q6 SC Last administered on 01/06/17 17:49; Admin Dose 1 UNIT; Start 01/03/17 at 00:00 Hydralazine HCl (Apresoline) 25 mg Q8 GTB Last administered on 01/06/17 14:38 ; Admin Dose 25 MG; Start 01/02/17 at 22:45 Ondansetron HCl (Zofran Tab) 4 mg Q8 GTB Last administered on 01/06/17 14:38; Admin Dose 4 MG; Start 01/02/17 at 22:50 Acetaminophen (Tylenol Liquid) 650 mg Q6 PRN GTB PAIN AND OR ELEVATED TEMP; Start 01/02/17 at 23:00 Fluconazole (Diflucan) 100 mg DAILY PO Last administered on 01/06/17 08:05; Admin Dose 100 MG; Start 01/05/17 at 10:30 Polyethylene Glycol (Miralax) 17 gm DAILY PO Last administered on 01/06/17 08: 15; Admin Dose 17 GM; Start 01/06/17 at 09:00 Bisacodyl (Dulcolax Supp) 10 mg DAILY PRN [place] CONSTIPATION Last administered on 01/05/17 16:40; Admin Dose 10 MG; Start 01/05/17 at 15:30 Epoetin Taqueria (Epogen (Non Esrd/Non Oncology)) 10,000 units MoWeFr@17 SC Last administered on 01/06/17 17:37; Admin Dose 10,000 UNITS; Start 01/06/17 at 17: 00 JEFRY CERNA MD January 06, 2017 18:06
--- NOTE | 2017-01-06 19:58 | CONS ---
Date/Time of Note Date/Time of Note DATE: 01/06/17 TIME: 19:57 Assessment/Plan Assessment/Plan Chief Complaint/Hosp Course IMPRESSION: 1. Patient has [id number] kidney disease.better 2. Hyperkalemia.BETTER 3. Hypertension. 4. Diabetes mellitus. 5. Uremia. 6. Metabolic acidosis. 7. Leukocytosis. 8. Systemic inflammatory response syndrome. 9. The patient has incomplete database. 10. History of cerebrovascular accident. 11. History of gastrointestinal bleed. 12. History of pneumonia. 13 S/P PEG plan ck bmp lytes stable PEG FEEDING Problems: Consultation Date/Type/Reason Admit Date/Time December 29, 2016 at 04:03 Type of Consultation: RENAL 24 HR Interval Summary Constitutional: no complaints Exam/Review of Systems Vital Signs Vitals Vital Signs Date Time Temp Pulse Resp B/P Pulse Ox O2 Delivery O2 Flow Rate FiO2 01/06/17 17:06 71 18 96 21 01/06/17 07:54 98.6 151/70 01/02/17 20:50 Nasal Cannula 2.0 Intake and Output 01/05/17 01/05/17 01/06/17 15:00 23:00 07:00 Intake Total 590 ml 560 ml Output Total 450 ml 700 ml Balance 140 ml -140 ml Exam Neck: supple Respiratory: clear to auscultation Cardiovascular: regular rate and rhythm Gastrointestinal: soft Musculoskeletal: nl extremities to inspection Results Result Diagram: 01/06/17 0538 01/06/17 0538 Results 24 hrs Laboratory Tests Test 01/06/17 00:09 01/06/17 05:30 01/06/17 05:38 01/06/17 11:31 Bedside Glucose 136 146 135 White Blood Count 10.4 Red Blood Count 2.88 L Hemoglobin 8.0 L Hematocrit 24.4 L Mean Corpuscular Volume 84.7 Mean Corpuscular Hemoglobin 27.8 L Mean Corpuscular Hemoglobin Concent 32.8 Red Cell Distribution Width 15.3 H Platelet Count 375 Mean Platelet Volume 10.5 H Neutrophils % 60.9 Lymphocytes % 22.0 Monocytes % 6.8 Eosinophils % 8.5 H Basophils % 1.0 Nucleated Red Blood Cells % 0.0 Neutrophils # 6.3 Lymphocytes # 2.3 Monocytes # 0.7 Eosinophils # 0.9 H Basophils # 0.1 Nucleated Red Blood Cells # 0.0 Sodium Level 137 Potassium Level 4.2 Chloride Level 104 Carbon Dioxide Level 24 Anion Gap 13 Blood Urea Nitrogen 42 H Creatinine 2.49 H Glucose Level 132 Calcium Level 8.1 L Test 01/06/17 17:41 Bedside Glucose 161 Medications Medications Current Medications Acetaminophen (Tylenol Tab) 650 mg Q6H PRN PO PAIN AND OR ELEVATED TEMP; Start 12/29/16 at 10:30; Status Future Hold Miscellaneous Information 1 ea NOTE XX ; Start 12/29/16 at 10:30 Glucose (Glutose) 15 gm Q15M PRN PO DECREASED GLUCOSE; Start 12/29/16 at 10:30 Glucose (Glutose) 22.5 gm Q15M PRN PO DECREASED GLUCOSE; Start 12/29/16 at 10:30 Dextrose (D50w Syringe) 25 ml Q15M PRN IV DECREASED GLUCOSE; Start 12/29/16 at 10:30 Dextrose (D50w Syringe) 50 ml Q15M PRN IV DECREASED GLUCOSE; Start 12/29/16 at 10:30 Glucagon (Glucagen) 1 mg Q15M PRN IM DECREASED GLUCOSE; Start 12/29/16 at 10:30 Glucose (Glutose) 15 gm Q15M PRN BUCCAL DECREASED GLUCOSE; Start 12/29/16 at 10: 30 Hydralazine HCl (Apresoline) 10 mg Q6H PRN IV sbp greater than 165 Last administered on 01/05/17 19:40; Admin Dose 10 MG; Start 12/29/16 at 10:30 Amiodarone HCl (Cordarone) 100 mg DAILY PO Last administered on 01/06/17 08:06 ; Admin Dose 100 MG; Start 12/29/16 at 12:00 Gabapentin (Neurontin) 300 mg DAILY PO Last administered on 01/06/17 08:05; Admin Dose 300 MG; Start 12/29/16 at 12:00 Megestrol Acetate (Megace) 40 mg BID PO Last administered on 01/06/17 08:05; Admin Dose 40 MG; Start 12/29/16 at 12:00 Tamsulosin HCl (Flomax) 0.4 mg HS PO Last administered on 01/05/17 21:09; Admin Dose 0.4 MG; Start 12/29/16 at 21:00 Atorvastatin Calcium (Lipitor) 20 mg DAILY@21 PO Last administered on 21:09; Admin Dose 20 MG; Start 12/29/16 at 21:00 Pantoprazole (Protonix Tab) 40 mg QAM PO Last administered on 01/06/17 08:05; Admin Dose 40 MG; Start 12/31/16 at 09:00 Docusate Sodium 100 mg 100 mg Q12 GTB Last administered on 01/06/17 08:06; Admin Dose 100 MG; Start 12/31/16 at 21:59 Cefepime HCl (Maxipime 1gm/50 ml (Pmx)) 50 ml @ 100 mls/hr Q24H IVPB Last administered on 01/05/17 19:41; Admin Dose 100 MLS/HR; Start 01/02/17 at 20:00 Insulin Aspart (Novolog Insulin Pen) NOVOLOG *MILD* ALGORI... Q6 SC Last administered on 01/06/17 17:49; Admin Dose 1 UNIT; Start 01/03/17 at 00:00 Hydralazine HCl (Apresoline) 25 mg Q8 GTB Last administered on 01/06/17 14:38 ; Admin Dose 25 MG; Start 01/02/17 at 22:45 Ondansetron HCl (Zofran Tab) 4 mg Q8 GTB Last administered on 01/06/17 14:38; Admin Dose 4 MG; Start 01/02/17 at 22:50 Acetaminophen (Tylenol Liquid) 650 mg Q6 PRN GTB PAIN AND OR ELEVATED TEMP; Start 01/02/17 at 23:00 Fluconazole (Diflucan) 100 mg DAILY PO Last administered on 01/06/17 08:05; Admin Dose 100 MG; Start 01/05/17 at 10:30 Polyethylene Glycol (Miralax) 17 gm DAILY PO Last administered on 01/06/17 08: 15; Admin Dose 17 GM; Start 01/06/17 at 09:00 Bisacodyl (Dulcolax Supp) 10 mg DAILY PRN [place] CONSTIPATION Last administered on 01/05/17 16:40; Admin Dose 10 MG; Start 01/05/17 at 15:30 Epoetin Taqueria (Epogen (Non Esrd/Non Oncology)) 10,000 units MoWeFr@17 SC Last administered on 01/06/17 17:37; Admin Dose 10,000 UNITS; Start 01/06/17 at 17: 00 ABBY RAMOS MD January 06, 2017 19:58
[2017-01-06 20:01] VITALS: BP 168/78; RESP 18
[2017-01-06] MEDS: ATORVASTATIN 20 MG TAB PO SCH (20:07)
[2017-01-06] MEDS: TAMSULOSIN (SR) 0.4 MG CAP PO SCH (20:07)
[2017-01-06] MEDS: CEFEPIME 1GM/50 ML (PMX) 50 ML IVPB SCH (20:07)
[2017-01-06] MEDS: hydrALAzine 20 MG INJ IV PRN (20:09)
[2017-01-06 20:15] VITALS: BP 186/84; PULSE 86
[2017-01-06 21:11] VITALS: BP 143/65
[2017-01-07] MEDS: ALBUTEROL/IPRATROPIUM (NEB) 3 ML AMP HHN SCH ×6 (00:11→21:49)
[2017-01-07] MEDS: INSULIN ASPART [NOVOLOG] 3 ML PEN SC SCH ×4 (00:31→17:58)
[2017-01-07 05:06] LABS: ADD SCAN DIFF NO
[2017-01-07 05:12] LABS: BASOPHIL # 0.1 10^3/ul (0.0-0.1); BASOPHILS % 0.6 % (0.0-2.0); EOSINOPHILS # 0.6 10^3/ul (0.0-0.5); EOSINOPHILS % 5.7 % (0.0-7.0); HEMATOCRIT 23.8 % (42.0-52.0); HEMOGLOBIN 7.8 g/dl (14.0-18.0); LYMPHOCYTES # 2.1 10^3/ul (0.8-2.9); LYMPHOCYTES % 19.4 % (15.0-51.0); MEAN CORPUSCULAR HEMOGLOBIN 27.9 pg (29.0-33.0); MEAN CORPUSCULAR HGB CONC 32.8 g/dl (32.0-37.0); MEAN PLATELET VOLUME 10.6 fl (7.4-10.4); MONOCYTE # 0.9 10^3/ul (0.3-0.9); MONOCYTES % 7.9 % (0.0-11.0); NEUTROPHIL # 7.2 10^3/ul (1.6-7.5); NEUTROPHILS % 65.9 % (39.0-77.0); PLATELET COUNT 373 10^3/UL (140-415); RED CELL DISTRIBUTION WIDTH 15.4 % (11.5-14.5)
[2017-01-07 05:32] LABS: CREATININE 2.66 mg/dl (0.61-1.24)
[2017-01-07 05:33] LABS: CALCIUM 8.2 mg/dl (8.4-10.2)
[2017-01-07] MEDS: ONDANSETRON 4 MG TAB GTB SCH ×3 (05:37→21:46)
[2017-01-07 05:57] LABS: POTASSIUM 4.4 mmol/L (3.5-5.1)
[2017-01-07 07:59] VITALS: BP 141/69; RESP 16
[2017-01-07] MEDS: DOCUSATE SODIUM 10 MG/ML (10ML CUP) GTB SCH ×2 (08:22→21:46)
[2017-01-07] MEDS: POLYETHYLENE GLYCOL 17 GM PACKET PO SCH (08:24)
[2017-01-07] MEDS: AMIODARONE 200 MG TAB PO SCH (08:24)
[2017-01-07] MEDS: FLUCONAZOLE 100 MG TAB PO SCH (08:24)
[2017-01-07] MEDS: PANTOPRAZOLE (EC) 40 MG TAB PO SCH (08:24)
[2017-01-07] MEDS: GABAPENTIN 300 MG CAP PO SCH (08:24)
[2017-01-07] MEDS: MEGESTROL 40 MG TAB PO SCH ×2 (08:24→21:46)
[2017-01-07] MEDS ORDERED: VITAMIN A & D 5 GM OINT PACKET TOP ONE (08:30)
[2017-01-07] MEDS: SOD FERRIC GLUC COMPLX 125 MG in SOD CHLORIDE 0.9% 100 ML IVPB SCH (11:02)
--- NOTE | 2017-01-07 14:07 | CONS ---
Date/Time of Note Date/Time of Note DATE: 01/07/17 TIME: 14:07 Assessment/Plan Assessment/Plan Chief Complaint/Hosp Course SUBJECTIVE: No acute changes, lying comfortably in bed, afebrile. Tolerates tube feeding. MICROBIOLOGY: Urine culture + yeast DIAGNOSTICS: Chest x-ray on admission revealed left lower lobe infiltrate. CT of the brain revealed no significant changes from previous findings. INDWELLINGS: Flores, PEG. ANTIMICROBIALS: Cefepime, Diflucan. PHYSICAL EXAMINATION: GENERAL: This is a cachectic, fragile, elderly man who is in no distress. HEENT: Head atraumatic, normocephalic. Sclerae anicteric. Buccal mucosa dry. NECK: Supple, trachea midline. CHEST: Rise symmetrical. Breath sounds diminished to bases. HEART: S1, S2. ABDOMEN: Soft. Bowel tones present. ASSESSMENT: 1. Pneumonia, possibly aspiration. 2. Failure to thrive with dysphagia, patient has PEG. 3. Anemia. 4. Dementia. 5. Diabetes. 6. History of cerebrovascular accident. PLAN: The patient remains stable. Continue present care, f/u cxr in am [facility] staff Problems: Consultation Date/Type/Reason Admit Date/Time December 29, 2016 at 04:03 Type of Consultation: id Exam/Review of Systems Vital Signs Vitals Vital Signs Date Time Temp Pulse Resp B/P Pulse Ox O2 Delivery O2 Flow Rate FiO2 01/07/17 09:15 79 17 96 21 01/07/17 07:59 97.6 141/69 Intake and Output 01/06/17 01/06/17 01/07/17 15:00 23:00 07:00 Intake Total 1030 ml 600 ml Output Total 650 ml 700 ml Balance 380 ml -100 ml Results Result Diagram: 01/07/17 0423 01/07/17 0423 Results 24 hrs Laboratory Tests Test 01/06/17 17:41 01/07/17 00:29 01/07/17 04:23 01/07/17 05:29 Bedside Glucose 161 145 135 White Blood Count 11.0 H Red Blood Count 2.80 L Hemoglobin 7.8 L Hematocrit 23.8 L Mean Corpuscular Volume 85.0 Mean Corpuscular Hemoglobin 27.9 L Mean Corpuscular Hemoglobin Concent 32.8 Red Cell Distribution Width 15.4 H Platelet Count 373 Mean Platelet Volume 10.6 H Neutrophils % 65.9 Lymphocytes % 19.4 Monocytes % 7.9 Eosinophils % 5.7 Basophils % 0.6 Nucleated Red Blood Cells % 0.0 Neutrophils # 7.2 Lymphocytes # 2.1 Monocytes # 0.9 Eosinophils # 0.6 H Basophils # 0.1 Nucleated Red Blood Cells # 0.0 Sodium Level 138 Potassium Level 4.4 Chloride Level 104 Carbon Dioxide Level 25 Anion Gap 13 Blood Urea Nitrogen 45 H Creatinine 2.66 H Glucose Level 133 Calcium Level 8.2 L Test 01/07/17 11:48 Bedside Glucose 172 Medications Medications Current Medications Acetaminophen (Tylenol Tab) 650 mg Q6H PRN PO PAIN AND OR ELEVATED TEMP; Start 12/29/16 at 10:30; Status Future Hold Miscellaneous Information 1 ea NOTE XX ; Start 12/29/16 at 10:30 Glucose (Glutose) 15 gm Q15M PRN PO DECREASED GLUCOSE; Start 12/29/16 at 10:30 Glucose (Glutose) 22.5 gm Q15M PRN PO DECREASED GLUCOSE; Start 12/29/16 at 10:30 Dextrose (D50w Syringe) 25 ml Q15M PRN IV DECREASED GLUCOSE; Start 12/29/16 at 10:30 Dextrose (D50w Syringe) 50 ml Q15M PRN IV DECREASED GLUCOSE; Start 12/29/16 at 10:30 Glucagon (Glucagen) 1 mg Q15M PRN IM DECREASED GLUCOSE; Start 12/29/16 at 10:30 Glucose (Glutose) 15 gm Q15M PRN BUCCAL DECREASED GLUCOSE; Start 12/29/16 at 10: 30 Hydralazine HCl (Apresoline) 10 mg Q6H PRN IV sbp greater than 165 Last administered on 01/06/17 20:09; Admin Dose 10 MG; Start 12/29/16 at 10:30 Amiodarone HCl (Cordarone) 100 mg DAILY PO Last administered on 01/07/17 08:24 ; Admin Dose 100 MG; Start 12/29/16 at 12:00 Gabapentin (Neurontin) 300 mg DAILY PO Last administered on 01/07/17 08:24; Admin Dose 300 MG; Start 12/29/16 at 12:00 Megestrol Acetate (Megace) 40 mg BID PO Last administered on 01/07/17 08:24; Admin Dose 40 MG; Start 12/29/16 at 12:00 Tamsulosin HCl (Flomax) 0.4 mg HS PO Last administered on 01/06/17 20:07; Admin Dose 0.4 MG; Start 12/29/16 at 21:00 Atorvastatin Calcium (Lipitor) 20 mg DAILY@21 PO Last administered on 20:07; Admin Dose 20 MG; Start 12/29/16 at 21:00 Pantoprazole (Protonix Tab) 40 mg QAM PO Last administered on 01/07/17 08:24; Admin Dose 40 MG; Start 12/31/16 at 09:00 Docusate Sodium 100 mg 100 mg Q12 GTB Last administered on 01/07/17 08:22; Admin Dose 100 MG; Start 12/31/16 at 21:59 Cefepime HCl (Maxipime 1gm/50 ml (Pmx)) 50 ml @ 100 mls/hr Q24H IVPB Last administered on 01/06/17 20:07; Admin Dose 100 MLS/HR; Start 01/02/17 at 20:00 Insulin Aspart (Novolog Insulin Pen) NOVOLOG *MILD* ALGORI... Q6 SC Last administered on 01/07/17 11:56; Admin Dose 1 UNIT; Start 01/03/17 at 00:00 Hydralazine HCl (Apresoline) 25 mg Q8 GTB Last administered on 01/07/17 05:39 ; Admin Dose 25 MG; Start 01/02/17 at 22:45 Ondansetron HCl (Zofran Tab) 4 mg Q8 GTB Last administered on 01/07/17 05:37; Admin Dose 4 MG; Start 01/02/17 at 22:50 Acetaminophen (Tylenol Liquid) 650 mg Q6 PRN GTB PAIN AND OR ELEVATED TEMP; Start 01/02/17 at 23:00 Fluconazole (Diflucan) 100 mg DAILY PO Last administered on 01/07/17 08:24; Admin Dose 100 MG; Start 01/05/17 at 10:30 Polyethylene Glycol (Miralax) 17 gm DAILY PO Last administered on 01/07/17 08: 24; Admin Dose 17 GM; Start 01/06/17 at 09:00 Bisacodyl (Dulcolax Supp) 10 mg DAILY PRN [place] CONSTIPATION Last administered on 01/05/17 16:40; Admin Dose 10 MG; Start 01/05/17 at 15:30 Epoetin Taqueria 28195 units 10,000 units MoWeFr@17 SC Last administered on 17:37; Admin Dose 10,000 UNITS; Start 01/06/17 at 17:00 Ferric Sodium Gluconate Complex/ Sodium Chloride (Ferrlecit/NS) 110 ml @ 100 mls/hr Q24H IVPB Last administered on 01/07/17 11:02; Admin Dose 100 MLS/HR; Start 01/07/17 at 09:00; Stop 01/08/17 at 10:05 KAYLA CASTREJON NP January 07, 2017 14:07
--- NOTE | 2017-01-07 15:40 | PN ---
Date/Time of Note Date/Time of Note DATE: 01/07/17 TIME: 15:29 Assessment/Plan VTE Prophylaxis VTE Prophylaxis Intervention: other Lines/Catheters IV [facility] Urinary Cath still in place: Yes Reason Cath still needed: urinary retention Assessment/Plan Assessment/Plan 1. Altered level of consciousness, most likely secondary to electrolyte imbalances secondary to metabolic encephalopathy. 2. Possible healthcare-acquired pneumonia. Continue patient on cefepime and vancomycin. 3. Systemic inflammatory response syndrome secondary to pneumonia. 4. Diastolic congestive heart failure. 5. Chronic kidney disease. 6. Hyperkalemia., Resolved. 7. Anemia, status post blood transfusion, continue to monitor hemoglobin and hematocrit. Started on Epogen. 8. Severe protein calorie malnutrition as evidenced by low albumin of 2.9. Dr. Cabral is following in gastroenterology consultation. Continue G-tube feeding. 9. History of cerebrovascular accident. 10. Hypertension. 11. History of paroxysmal atrial fibrillation. 12. Diabetes mellitus. Continue NovoLog per mild algorithm sliding scale. 13. Dysphagia, status post G-tube placement. With silent aspiration per video swallow eval, per speech therapy may have nectar thick by spoon only. Further recommendations based on clinical course. Plan of care discussed with Dr. Patel. Subjective 24 Hr Interval Summary Free Text/Dictation nad, getting breathing treatment now, afebrile tolerates G-tube feeding well , dw staff. Constitutional: requiring O2 Eyes: no complaints ENT: no complaints Respiratory: no complaints Cardiovascular: no complaints Gastrointestinal: no complaints Genitourinary: no complaints Musculoskeletal: no complaints Skin: no complaints Neurologic: no complaints Endocrine: no complaints Exam/Review of Systems Vital Signs Vitals Vital Signs Date Time Temp Pulse Resp B/P Pulse Ox O2 Delivery O2 Flow Rate FiO2 01/07/17 15:09 75 18 96 21 01/07/17 07:59 97.6 141/69 Intake and Output 01/06/17 01/06/17 01/07/17 15:00 23:00 07:00 Intake Total 1030 ml 600 ml Output Total 650 ml 700 ml Balance 380 ml -100 ml Exam Constitutional: alert Psych: nl mood/affect Eyes: EOMI ENMT: nl external ears & nose Neck: non-tender Respiratory: clear to auscultation Cardiovascular: nl pulses Gastrointestinal: non-tender, soft Musculoskeletal: nl extremities to inspection Extremities: normal pulses Neurological: confused, nl speech Skin: other Lymph: nontender Results Result Diagram: 01/07/17 0423 01/07/17 0423 Results 24 hrs Laboratory Tests Test 01/06/17 17:41 01/07/17 00:29 01/07/17 04:23 01/07/17 05:29 Bedside Glucose 161 145 135 White Blood Count 11.0 H Red Blood Count 2.80 L Hemoglobin 7.8 L Hematocrit 23.8 L Mean Corpuscular Volume 85.0 Mean Corpuscular Hemoglobin 27.9 L Mean Corpuscular Hemoglobin Concent 32.8 Red Cell Distribution Width 15.4 H Platelet Count 373 Mean Platelet Volume 10.6 H Neutrophils % 65.9 Lymphocytes % 19.4 Monocytes % 7.9 Eosinophils % 5.7 Basophils % 0.6 Nucleated Red Blood Cells % 0.0 Neutrophils # 7.2 Lymphocytes # 2.1 Monocytes # 0.9 Eosinophils # 0.6 H Basophils # 0.1 Nucleated Red Blood Cells # 0.0 Sodium Level 138 Potassium Level 4.4 Chloride Level 104 Carbon Dioxide Level 25 Anion Gap 13 Blood Urea Nitrogen 45 H Creatinine 2.66 H Glucose Level 133 Calcium Level 8.2 L Test 01/07/17 11:48 Bedside Glucose 172 Medications Medications Current Medications Acetaminophen (Tylenol Tab) 650 mg Q6H PRN PO PAIN AND OR ELEVATED TEMP; Start 12/29/16 at 10:30; Status Future Hold Miscellaneous Information 1 ea NOTE XX ; Start 12/29/16 at 10:30 Glucose (Glutose) 15 gm Q15M PRN PO DECREASED GLUCOSE; Start 12/29/16 at 10:30 Glucose (Glutose) 22.5 gm Q15M PRN PO DECREASED GLUCOSE; Start 12/29/16 at 10:30 Dextrose (D50w Syringe) 25 ml Q15M PRN IV DECREASED GLUCOSE; Start 12/29/16 at 10:30 Dextrose (D50w Syringe) 50 ml Q15M PRN IV DECREASED GLUCOSE; Start 12/29/16 at 10:30 Glucagon (Glucagen) 1 mg Q15M PRN IM DECREASED GLUCOSE; Start 12/29/16 at 10:30 Glucose (Glutose) 15 gm Q15M PRN BUCCAL DECREASED GLUCOSE; Start 12/29/16 at 10: 30 Hydralazine HCl (Apresoline) 10 mg Q6H PRN IV sbp greater than 165 Last administered on 01/06/17 20:09; Admin Dose 10 MG; Start 12/29/16 at 10:30 Amiodarone HCl (Cordarone) 100 mg DAILY PO Last administered on 01/07/17 08:24 ; Admin Dose 100 MG; Start 12/29/16 at 12:00 Gabapentin (Neurontin) 300 mg DAILY PO Last administered on 01/07/17 08:24; Admin Dose 300 MG; Start 12/29/16 at 12:00 Megestrol Acetate (Megace) 40 mg BID PO Last administered on 01/07/17 08:24; Admin Dose 40 MG; Start 12/29/16 at 12:00 Tamsulosin HCl (Flomax) 0.4 mg HS PO Last administered on 01/06/17 20:07; Admin Dose 0.4 MG; Start 12/29/16 at 21:00 Atorvastatin Calcium (Lipitor) 20 mg DAILY@21 PO Last administered on 20:07; Admin Dose 20 MG; Start 12/29/16 at 21:00 Pantoprazole (Protonix Tab) 40 mg QAM PO Last administered on 01/07/17 08:24; Admin Dose 40 MG; Start 12/31/16 at 09:00 Docusate Sodium 100 mg 100 mg Q12 GTB Last administered on 01/07/17 08:22; Admin Dose 100 MG; Start 12/31/16 at 21:59 Cefepime HCl (Maxipime 1gm/50 ml (Pmx)) 50 ml @ 100 mls/hr Q24H IVPB Last administered on 01/06/17 20:07; Admin Dose 100 MLS/HR; Start 01/02/17 at 20:00 Insulin Aspart (Novolog Insulin Pen) NOVOLOG *MILD* ALGORI... Q6 SC Last administered on 01/07/17 11:56; Admin Dose 1 UNIT; Start 01/03/17 at 00:00 Hydralazine HCl (Apresoline) 25 mg Q8 GTB Last administered on 01/07/17 14:30 ; Admin Dose 25 MG; Start 01/02/17 at 22:45 Ondansetron HCl (Zofran Tab) 4 mg Q8 GTB Last administered on 01/07/17 14:30; Admin Dose 4 MG; Start 01/02/17 at 22:50 Acetaminophen (Tylenol Liquid) 650 mg Q6 PRN GTB PAIN AND OR ELEVATED TEMP; Start 01/02/17 at 23:00 Fluconazole (Diflucan) 100 mg DAILY PO Last administered on 01/07/17 08:24; Admin Dose 100 MG; Start 01/05/17 at 10:30 Polyethylene Glycol (Miralax) 17 gm DAILY PO Last administered on 01/07/17 08: 24; Admin Dose 17 GM; Start 01/06/17 at 09:00 Bisacodyl (Dulcolax Supp) 10 mg DAILY PRN [place] CONSTIPATION Last administered on 01/05/17 16:40; Admin Dose 10 MG; Start 01/05/17 at 15:30 Epoetin Taqueria 86992 units 10,000 units MoWeFr@17 SC Last administered on 17:37; Admin Dose 10,000 UNITS; Start 01/06/17 at 17:00 Ferric Sodium Gluconate Complex/ Sodium Chloride (Ferrlecit/NS) 110 ml @ 100 mls/hr Q24H IVPB Last administered on 01/07/17 11:02; Admin Dose 100 MLS/HR; Start 01/07/17 at 09:00; Stop 01/08/17 at 10:05 MARCY WEINER January 07, 2017 15:39
--- NOTE | 2017-01-07 16:48 | RADRPT ---
PROCEDURE: XR Chest. CLINICAL INDICATION: Shortness of breath. TECHNIQUE: Single frontal view. COMPARISON: 01/03/2017. FINDINGS: There is bilateral interstitial pulmonary disease consistent with pulmonary edema or bilateral pneum onia, unchanged. The lungs are otherwise clear. The heart size is normal. There is calcification in the aorta consistent with atherosclerosis. There is no pleural effusion or pneumothorax. Contrast is present in the colon from a prior study. IMPRESSION: 1. Contrast in the colon from a prior study. 2. No other change from 01/03/2017. RPTAT: QQ .Allen Mackey MD, MD Date Time Electronically viewed and signed by .Allen Mackey MD, MD on 01/07/2017 16:48 .R/
--- NOTE | 2017-01-07 19:29 | CONS ---
Date/Time of Note Date/Time of Note DATE: 01/07/17 TIME: 19:27 Assessment/Plan Assessment/Plan Additional Assessment/Plan Additional Assessment/Plan IMPRESSION: 1. Dysphagia. Status post PEG 2. Prerenal azotemia. 3. History of hypertension. 4. Cerebrovascular accident. 5. Chronic kidney disease. 6. Cachexia and malnutrition. 7. Diabetes mellitus. 8. Paroxysmal atrial fibrillation. 9. Anemia most probably of chronic disease 10. Pneumonia Plan Increase feeding slowly No active GI bleeding Monitor H&H Consultation Date/Type/Reason Admit Date/Time December 29, 2016 at 04:03 Type of Consultation: id 24 HR Interval Summary Constitutional: no complaints Exam/Review of Systems Vital Signs Vitals Vital Signs Date Time Temp Pulse Resp B/P Pulse Ox O2 Delivery O2 Flow Rate FiO2 01/07/17 17:55 70 17 96 21 01/07/17 07:59 97.6 141/69 Intake and Output 01/06/17 01/06/17 01/07/17 15:00 23:00 07:00 Intake Total 1030 ml 600 ml Output Total 650 ml 700 ml Balance 380 ml -100 ml Exam Constitutional: alert, oriented, well developed Psych: nl mood/affect, no complaints Head: atraumatic, normocephalic Eyes: EOMI, PERRL, nl conjunctiva, nl lids, nl sclera ENMT: nl external ears & nose, nl lips & teeth, nl nasal mucosa & septum Neck: non-tender, supple Respiratory: clear to auscultation, normal air movement Cardiovascular: nl pulses, regular rate and rhythm Gastrointestinal: nl liver, spleen, non-tender, soft Musculoskeletal: nl extremities to inspection, nl gait and stance Extremities: normal pulses Neurological: INKER AND OPAQUER II-XII intact, nl mental status, nl speech, nl strength Skin: nl turgor, No rash or lesions Lymph: nl lymph nodes Results Result Diagram: 01/07/173 01/07/17 0423 Results 24 hrs Laboratory Tests Test 01/07/17 00:29 01/07/17 04:23 01/07/17 05:29 01/07/17 11:48 Bedside Glucose 145 135 172 White Blood Count 11.0 H Red Blood Count 2.80 L Hemoglobin 7.8 L Hematocrit 23.8 L Mean Corpuscular Volume 85.0 Mean Corpuscular Hemoglobin 27.9 L Mean Corpuscular Hemoglobin Concent 32.8 Red Cell Distribution Width 15.4 H Platelet Count 373 Mean Platelet Volume 10.6 H Neutrophils % 65.9 Lymphocytes % 19.4 Monocytes % 7.9 Eosinophils % 5.7 Basophils % 0.6 Nucleated Red Blood Cells % 0.0 Neutrophils # 7.2 Lymphocytes # 2.1 Monocytes # 0.9 Eosinophils # 0.6 H Basophils # 0.1 Nucleated Red Blood Cells # 0.0 Sodium Level 138 Potassium Level 4.4 Chloride Level 104 Carbon Dioxide Level 25 Anion Gap 13 Blood Urea Nitrogen 45 H Creatinine 2.66 H Glucose Level 133 Calcium Level 8.2 L Test 01/07/17 17:53 Bedside Glucose 161 Medications Medications Current Medications Acetaminophen (Tylenol Tab) 650 mg Q6H PRN PO PAIN AND OR ELEVATED TEMP; Start 12/29/16 at 10:30; Status Future Hold Miscellaneous Information 1 ea NOTE XX ; Start 12/29/16 at 10:30 Glucose (Glutose) 15 gm Q15M PRN PO DECREASED GLUCOSE; Start 12/29/16 at 10:30 Glucose (Glutose) 22.5 gm Q15M PRN PO DECREASED GLUCOSE; Start 12/29/16 at 10:30 Dextrose (D50w Syringe) 25 ml Q15M PRN IV DECREASED GLUCOSE; Start 12/29/16 at 10:30 Dextrose (D50w Syringe) 50 ml Q15M PRN IV DECREASED GLUCOSE; Start 12/29/16 at 10:30 Glucagon (Glucagen) 1 mg Q15M PRN IM DECREASED GLUCOSE; Start 12/29/16 at 10:30 Glucose (Glutose) 15 gm Q15M PRN BUCCAL DECREASED GLUCOSE; Start 12/29/16 at 10: 30 Hydralazine HCl (Apresoline) 10 mg Q6H PRN IV sbp greater than 165 Last administered on 01/06/17 20:09; Admin Dose 10 MG; Start 12/29/16 at 10:30 Amiodarone HCl (Cordarone) 100 mg DAILY PO Last administered on 01/07/17 08:24 ; Admin Dose 100 MG; Start 12/29/16 at 12:00 Gabapentin (Neurontin) 300 mg DAILY PO Last administered on 01/07/17 08:24; Admin Dose 300 MG; Start 12/29/16 at 12:00 Megestrol Acetate (Megace) 40 mg BID PO Last administered on 01/07/17 08:24; Admin Dose 40 MG; Start 12/29/16 at 12:00 Tamsulosin HCl (Flomax) 0.4 mg HS PO Last administered on 01/06/17 20:07; Admin Dose 0.4 MG; Start 12/29/16 at 21:00 Atorvastatin Calcium (Lipitor) 20 mg DAILY@21 PO Last administered on 20:07; Admin Dose 20 MG; Start 12/29/16 at 21:00 Pantoprazole (Protonix Tab) 40 mg QAM PO Last administered on 01/07/17 08:24; Admin Dose 40 MG; Start 12/31/16 at 09:00 Docusate Sodium 100 mg 100 mg Q12 GTB Last administered on 01/07/17 08:22; Admin Dose 100 MG; Start 12/31/16 at 21:59 Cefepime HCl (Maxipime 1gm/50 ml (Pmx)) 50 ml @ 100 mls/hr Q24H IVPB Last administered on 01/06/17 20:07; Admin Dose 100 MLS/HR; Start 01/02/17 at 20:00 Insulin Aspart (Novolog Insulin Pen) NOVOLOG *MILD* ALGORI... Q6 SC Last administered on 01/07/17 17:58; Admin Dose 1 UNIT; Start 01/03/17 at 00:00 Hydralazine HCl (Apresoline) 25 mg Q8 GTB Last administered on 01/07/17 14:30 ; Admin Dose 25 MG; Start 01/02/17 at 22:45 Ondansetron HCl (Zofran Tab) 4 mg Q8 GTB Last administered on 01/07/17 14:30; Admin Dose 4 MG; Start 01/02/17 at 22:50 Acetaminophen (Tylenol Liquid) 650 mg Q6 PRN GTB PAIN AND OR ELEVATED TEMP; Start 01/02/17 at 23:00 Fluconazole (Diflucan) 100 mg DAILY PO Last administered on 01/07/17 08:24; Admin Dose 100 MG; Start 01/05/17 at 10:30 Polyethylene Glycol (Miralax) 17 gm DAILY PO Last administered on 01/07/17 08: 24; Admin Dose 17 GM; Start 01/06/17 at 09:00 Bisacodyl (Dulcolax Supp) 10 mg DAILY PRN [place] CONSTIPATION Last administered on 01/05/17 16:40; Admin Dose 10 MG; Start 01/05/17 at 15:30 Epoetin Taqueria 33868 units 10,000 units MoWeFr@17 SC Last administered on 17:37; Admin Dose 10,000 UNITS; Start 01/06/17 at 17:00 Ferric Sodium Gluconate Complex/ Sodium Chloride (Ferrlecit/NS) 110 ml @ 100 mls/hr Q24H IVPB Last administered on 01/07/17 11:02; Admin Dose 100 MLS/HR; Start 01/07/17 at 09:00; Stop 01/08/17 at 10:05 JEFRY CERNA MD January 07, 2017 19:29
--- NOTE | 2017-01-07 20:14 | CONS ---
Date/Time of Note Date/Time of Note DATE: 01/07/17 TIME: 20:13 Assessment/Plan Assessment/Plan Chief Complaint/Hosp Course IMPRESSION: 1. Patient has sardi-jf-ndgnujo kidney disease.better 2. Hyperkalemia.BETTER 3. Hypertension. 4. Diabetes mellitus. 5. Uremia. 6. Metabolic acidosis. 7. Leukocytosis. 8. Systemic inflammatory response syndrome. 9. The patient has incomplete database. 10. History of cerebrovascular accident. 11. History of gastrointestinal bleed. 12. History of pneumonia. 13 S/P PEG plan ck bmp lytes stable PEG FEEDING Problems: Consultation Date/Type/Reason Admit Date/Time December 29, 2016 at 04:03 Type of Consultation: renal 24 HR Interval Summary Constitutional: no complaints Exam/Review of Systems Vital Signs Vitals Vital Signs Date Time Temp Pulse Resp B/P Pulse Ox O2 Delivery O2 Flow Rate FiO2 01/07/17 17:55 70 17 96 21 01/07/17 07:59 97.6 141/69 Intake and Output 01/06/17 01/06/17 01/07/17 15:00 23:00 07:00 Intake Total 1030 ml 600 ml Output Total 650 ml 700 ml Balance 380 ml -100 ml Exam Respiratory: clear to auscultation Cardiovascular: regular rate and rhythm Gastrointestinal: soft Musculoskeletal: nl extremities to inspection Extremities: normal pulses Results Result Diagram: 01/07/17 0423 01/07/17 0423 Results 24 hrs Laboratory Tests Test 01/07/17 00:29 01/07/17 04:23 01/07/17 05:29 01/07/17 11:48 Bedside Glucose 145 135 172 White Blood Count 11.0 H Red Blood Count 2.80 L Hemoglobin 7.8 L Hematocrit 23.8 L Mean Corpuscular Volume 85.0 Mean Corpuscular Hemoglobin 27.9 L Mean Corpuscular Hemoglobin Concent 32.8 Red Cell Distribution Width 15.4 H Platelet Count 373 Mean Platelet Volume 10.6 H Neutrophils % 65.9 Lymphocytes % 19.4 Monocytes % 7.9 Eosinophils % 5.7 Basophils % 0.6 Nucleated Red Blood Cells % 0.0 Neutrophils # 7.2 Lymphocytes # 2.1 Monocytes # 0.9 Eosinophils # 0.6 H Basophils # 0.1 Nucleated Red Blood Cells # 0.0 Sodium Level 138 Potassium Level 4.4 Chloride Level 104 Carbon Dioxide Level 25 Anion Gap 13 Blood Urea Nitrogen 45 H Creatinine 2.66 H Glucose Level 133 Calcium Level 8.2 L Test 01/07/17 17:53 Bedside Glucose 161 Medications Medications Current Medications Acetaminophen (Tylenol Tab) 650 mg Q6H PRN PO PAIN AND OR ELEVATED TEMP; Start 12/29/16 at 10:30; Status Future Hold Miscellaneous Information 1 ea NOTE XX ; Start 12/29/16 at 10:30 Glucose (Glutose) 15 gm Q15M PRN PO DECREASED GLUCOSE; Start 12/29/16 at 10:30 Glucose (Glutose) 22.5 gm Q15M PRN PO DECREASED GLUCOSE; Start 12/29/16 at 10:30 Dextrose (D50w Syringe) 25 ml Q15M PRN IV DECREASED GLUCOSE; Start 12/29/16 at 10:30 Dextrose (D50w Syringe) 50 ml Q15M PRN IV DECREASED GLUCOSE; Start 12/29/16 at 10:30 Glucagon (Glucagen) 1 mg Q15M PRN IM DECREASED GLUCOSE; Start 12/29/16 at 10:30 Glucose (Glutose) 15 gm Q15M PRN BUCCAL DECREASED GLUCOSE; Start 12/29/16 at 10: 30 Hydralazine HCl (Apresoline) 10 mg Q6H PRN IV sbp greater than 165 Last administered on 01/06/17 20:09; Admin Dose 10 MG; Start 12/29/16 at 10:30 Amiodarone HCl (Cordarone) 100 mg DAILY PO Last administered on 01/07/17 08:24 ; Admin Dose 100 MG; Start 12/29/16 at 12:00 Gabapentin (Neurontin) 300 mg DAILY PO Last administered on 01/07/17 08:24; Admin Dose 300 MG; Start 12/29/16 at 12:00 Megestrol Acetate (Megace) 40 mg BID PO Last administered on 01/07/17 08:24; Admin Dose 40 MG; Start 12/29/16 at 12:00 Tamsulosin HCl (Flomax) 0.4 mg HS PO Last administered on 01/06/17 20:07; Admin Dose 0.4 MG; Start 12/29/16 at 21:00 Atorvastatin Calcium (Lipitor) 20 mg DAILY@21 PO Last administered on 20:07; Admin Dose 20 MG; Start 12/29/16 at 21:00 Pantoprazole (Protonix Tab) 40 mg QAM PO Last administered on 01/07/17 08:24; Admin Dose 40 MG; Start 12/31/16 at 09:00 Docusate Sodium 100 mg 100 mg Q12 GTB Last administered on 01/07/17 08:22; Admin Dose 100 MG; Start 12/31/16 at 21:59 Cefepime HCl (Maxipime 1gm/50 ml (Pmx)) 50 ml @ 100 mls/hr Q24H IVPB Last administered on 01/06/17 20:07; Admin Dose 100 MLS/HR; Start 01/02/17 at 20:00 Insulin Aspart (Novolog Insulin Pen) NOVOLOG *MILD* ALGORI... Q6 SC Last administered on 01/07/17 17:58; Admin Dose 1 UNIT; Start 01/03/17 at 00:00 Hydralazine HCl (Apresoline) 25 mg Q8 GTB Last administered on 01/07/17 14:30 ; Admin Dose 25 MG; Start 01/02/17 at 22:45 Ondansetron HCl (Zofran Tab) 4 mg Q8 GTB Last administered on 01/07/17 14:30; Admin Dose 4 MG; Start 01/02/17 at 22:50 Acetaminophen (Tylenol Liquid) 650 mg Q6 PRN GTB PAIN AND OR ELEVATED TEMP; Start 01/02/17 at 23:00 Fluconazole (Diflucan) 100 mg DAILY PO Last administered on 01/07/17 08:24; Admin Dose 100 MG; Start 01/05/17 at 10:30 Polyethylene Glycol (Miralax) 17 gm DAILY PO Last administered on 01/07/17 08: 24; Admin Dose 17 GM; Start 01/06/17 at 09:00 Bisacodyl (Dulcolax Supp) 10 mg DAILY PRN [place] CONSTIPATION Last administered on 01/05/17 16:40; Admin Dose 10 MG; Start 01/05/17 at 15:30 Epoetin Taqueria 01501 units 10,000 units MoWeFr@17 SC Last administered on 17:37; Admin Dose 10,000 UNITS; Start 01/06/17 at 17:00 Ferric Sodium Gluconate Complex/ Sodium Chloride (Ferrlecit/NS) 110 ml @ 100 mls/hr Q24H IVPB Last administered on 01/07/17t 11:02; Admin Dose 100 MLS/HR; Start 01/07/17 at 09:00; Stop 01/08/17 at 10:05 ABBY RAMOS MD January 07, 2017 20:14
[2017-01-07 20:16] VITALS: BP 139/65; RESP 18
[2017-01-07] MEDS: TAMSULOSIN (SR) 0.4 MG CAP PO SCH (21:46)
[2017-01-07] MEDS: ATORVASTATIN 20 MG TAB PO SCH (21:46)
[2017-01-07] MEDS: CEFEPIME 1GM/50 ML (PMX) 50 ML IVPB SCH (21:46)
[2017-01-08] MEDS: ALBUTEROL/IPRATROPIUM (NEB) 3 ML AMP HHN SCH ×6 (01:00→21:53)
[2017-01-08] MEDS: INSULIN ASPART [NOVOLOG] 3 ML PEN SC SCH ×4 (05:34→17:59)
[2017-01-08] MEDS: ONDANSETRON 4 MG TAB GTB SCH ×3 (05:48→21:29)
[2017-01-08 06:03] LABS: ADD SCAN DIFF NO
[2017-01-08 06:14] LABS: BASOPHIL # 0.1 10^3/ul (0.0-0.1); BASOPHILS % 0.8 % (0.0-2.0); EOSINOPHILS # 1.1 10^3/ul (0.0-0.5); EOSINOPHILS % 8.4 % (0.0-7.0); HEMOGLOBIN 8.4 g/dl (14.0-18.0); LYMPHOCYTES # 2.3 10^3/ul (0.8-2.9); LYMPHOCYTES % 17.2 % (15.0-51.0); MEAN CORPUSCULAR HEMOGLOBIN 27.5 pg (29.0-33.0); MEAN CORPUSCULAR HGB CONC 32.3 g/dl (32.0-37.0); MONOCYTE # 1.2 10^3/ul (0.3-0.9); NEUTROPHIL # 8.4 10^3/ul (1.6-7.5); PLATELET COUNT 410 10^3/UL (140-415); RED BLOOD COUNT 3.06 10^6/ul (4.70-6.10); RED CELL DISTRIBUTION WIDTH 15.6 % (11.5-14.5); WHITE BLOOD COUNT 13.1 10^3/ul (4.8-10.8)
[2017-01-08 06:45] LABS: CALCIUM 8.6 mg/dl (8.4-10.2); CREATININE 2.68 mg/dl (0.61-1.24)
[2017-01-08 08:03] VITALS: BP 145/66; RESP 18
[2017-01-08] MEDS: FLUCONAZOLE 100 MG TAB PO SCH (08:41)
[2017-01-08] MEDS: DOCUSATE SODIUM 10 MG/ML (10ML CUP) GTB SCH ×2 (08:41→20:21)
[2017-01-08] MEDS: POLYETHYLENE GLYCOL 17 GM PACKET PO SCH (08:41)
[2017-01-08] MEDS: MEGESTROL 40 MG TAB PO SCH ×2 (08:41→20:21)
[2017-01-08] MEDS: AMIODARONE 200 MG TAB PO SCH (08:41)
[2017-01-08] MEDS: GABAPENTIN 300 MG CAP PO SCH (08:41)
[2017-01-08] MEDS: PANTOPRAZOLE (EC) 40 MG TAB PO SCH (08:41)
[2017-01-08 09:37] LABS: POTASSIUM 4.7 mmol/L (3.5-5.1)
[2017-01-08] MEDS: SOD FERRIC GLUC COMPLX 125 MG in SOD CHLORIDE 0.9% 100 ML IVPB SCH (10:04)
--- NOTE | 2017-01-08 10:35 | PN ---
Date/Time of Note Date/Time of Note DATE: 01/08/17 TIME: 10:34 Assessment/Plan VTE Prophylaxis VTE Prophylaxis Intervention: ambulation Lines/Catheters IV Catheter Type (from Nrs): Saline Lock Urinary Cath still in place: Yes Reason Cath still needed: urinary retention Assessment/Plan Chief Complaint/Hosp Course 1. Dysphagia. Status post PEG 2. Prerenal azotemia. 3. History of hypertension. 4. Cerebrovascular accident. 5. Chronic kidney disease. 6. Cachexia and malnutrition. 7. Diabetes mellitus. 8. Paroxysmal atrial fibrillation. Problems: Assessment/Plan 1. continue HD Subjective 24 Hr Interval Summary Constitutional: no complaints Eyes: no complaints ENT: no complaints Musculoskeletal: back pain, bone/joint pain Neurologic: no complaints Exam/Review of Systems Vital Signs Vitals Vital Signs Date Time Temp Pulse Resp B/P Pulse Ox O2 Delivery O2 Flow Rate FiO2 01/08/17 08:05 69 18 95 21 01/08/17 08:03 98.3 145/66 Intake and Output 01/07/17 01/07/17 01/08/17 15:00 23:00 07:00 Intake Total 1250 ml 700 ml Output Total 650 ml 1000 ml Balance 600 ml -300 ml Exam Constitutional: alert, oriented Psych: no complaints Respiratory: diminished breath sounds Cardiovascular: regular rate and rhythm Gastrointestinal: bowel sounds (ositive) Results Result Diagram: 01/08/17 0520 01/08/17 0520 Results 24 hrs Laboratory Tests Test 01/07/17 11:48 01/07/17 17:53 01/08/17 00:39 01/08/17 05:20 Bedside Glucose 172 161 122 White Blood Count 13.1 H Red Blood Count 3.06 L Hemoglobin 8.4 L Hematocrit 26.0 L Mean Corpuscular Volume 85.0 Mean Corpuscular Hemoglobin 27.5 L Mean Corpuscular Hemoglobin Concent 32.3 Red Cell Distribution Width 15.6 H Platelet Count 410 Mean Platelet Volume 11.0 H Neutrophils % 64.0 Lymphocytes % 17.2 Monocytes % 9.0 Eosinophils % 8.4 H Basophils % 0.8 Nucleated Red Blood Cells % 0.0 Neutrophils # 8.4 H Lymphocytes # 2.3 Monocytes # 1.2 H Eosinophils # 1.1 H Basophils # 0.1 Nucleated Red Blood Cells # 0.0 Sodium Level 137 Potassium Level 4.7 Chloride Level 103 Carbon Dioxide Level 24 Anion Gap 15 Blood Urea Nitrogen 44 H Creatinine 2.68 H Glucose Level 133 Calcium Level 8.6 Test 01/08/17 05:32 Bedside Glucose 132 Medications Medications Current Medications Acetaminophen (Tylenol Tab) 650 mg Q6H PRN PO PAIN AND OR ELEVATED TEMP; Start 12/29/16 at 10:30; Status Future Hold Miscellaneous Information 1 ea NOTE XX ; Start 12/29/16 at 10:30 Glucose (Glutose) 15 gm Q15M PRN PO DECREASED GLUCOSE; Start 12/29/16 at 10:30 Glucose (Glutose) 22.5 gm Q15M PRN PO DECREASED GLUCOSE; Start 12/29/16 at 10:30 Dextrose (D50w Syringe) 25 ml Q15M PRN IV DECREASED GLUCOSE; Start 12/29/16 at 10:30 Dextrose (D50w Syringe) 50 ml Q15M PRN IV DECREASED GLUCOSE; Start 12/29/16 at 10:30 Glucagon (Glucagen) 1 mg Q15M PRN IM DECREASED GLUCOSE; Start 12/29/16 at 10:30 Glucose (Glutose) 15 gm Q15M PRN BUCCAL DECREASED GLUCOSE; Start 12/29/16 at 10: 30 Hydralazine HCl (Apresoline) 10 mg Q6H PRN IV sbp greater than 165 Last administered on 01/06/17 20:09; Admin Dose 10 MG; Start 12/29/16 at 10:30 Amiodarone HCl (Cordarone) 100 mg DAILY PO Last administered on 01/08/17 08:41 ; Admin Dose 100 MG; Start 12/29/16 at 12:00 Gabapentin (Neurontin) 300 mg DAILY PO Last administered on 01/08/17 08:41; Admin Dose 300 MG; Start 12/29/16 at 12:00 Megestrol Acetate (Megace) 40 mg BID PO Last administered on 01/08/17 08:41; Admin Dose 40 MG; Start 12/29/16 at 12:00 Tamsulosin HCl (Flomax) 0.4 mg HS PO Last administered on 01/07/17 21:46; Admin Dose 0.4 MG; Start 12/29/16 at 21:00 Atorvastatin Calcium (Lipitor) 20 mg DAILY@21 PO Last administered on 21:46; Admin Dose 20 MG; Start 12/29/16 at 21:00 Pantoprazole (Protonix Tab) 40 mg QAM PO Last administered on 01/08/17 08:41; Admin Dose 40 MG; Start 12/31/16 at 09:00 Docusate Sodium 100 mg 100 mg Q12 GTB Last administered on 01/08/17 08:41; Admin Dose 100 MG; Start 12/31/16 at 21:59 Cefepime HCl (Maxipime 1gm/50 ml (Pmx)) 50 ml @ 100 mls/hr Q24H IVPB Last administered on 01/07/17 21:46; Admin Dose 100 MLS/HR; Start 01/02/17 at 20:00 Insulin Aspart (Novolog Insulin Pen) NOVOLOG *MILD* ALGORI... Q6 SC Last administered on 01/07/17 17:58; Admin Dose 1 UNIT; Start 01/03/17 at 00:00 Hydralazine HCl (Apresoline) 25 mg Q8 GTB Last administered on 01/08/17 05:48 ; Admin Dose 25 MG; Start 01/02/17 at 22:45 Ondansetron HCl (Zofran Tab) 4 mg Q8 GTB Last administered on 01/08/17 05:48; Admin Dose 4 MG; Start 01/02/17 at 22:50 Acetaminophen (Tylenol Liquid) 650 mg Q6 PRN GTB PAIN AND OR ELEVATED TEMP; Start 01/02/17 at 23:00 Fluconazole (Diflucan) 100 mg DAILY PO Last administered on 01/08/17 08:41; Admin Dose 100 MG; Start 01/05/17 at 10:30 Polyethylene Glycol (Miralax) 17 gm DAILY PO Last administered on 01/08/17 08: 41; Admin Dose 17 GM; Start 01/06/17 at 09:00 Bisacodyl (Dulcolax Supp) 10 mg DAILY PRN [place] CONSTIPATION Last administered on 01/05/17 16:40; Admin Dose 10 MG; Start 01/05/17 at 15:30 Epoetin Taqueria (Epogen (Non Esrd/Non Oncology)) 10,000 units MoWeFr@17 SC Last administered on 01/06/17 17:37; Admin Dose 10,000 UNITS; Start 01/06/17 at 17: 00 CHELSIE HERNÁNDEZ 19, 2017 10:35
--- NOTE | 2017-01-08 12:13 | PN ---
Date/Time of Note Date/Time of Note DATE: 01/08/17 TIME: 12:10 Assessment/Plan VTE Prophylaxis VTE Prophylaxis Intervention: SCD's Lines/Catheters [facility] Urinary Cath still in place: Yes Reason Cath still needed: urinary retention Assessment/Plan Chief Complaint/Hosp Course ASSESSMENT AND PLAN: 1. Altered level of consciousness, most likely secondary to electrolyte imbalances secondary to metabolic encephalopathy. 2. Possible healthcare-acquired pneumonia. Continue patient on cefepime and vancomycin. 3. Systemic inflammatory response syndrome secondary to pneumonia. 4. Diastolic congestive heart failure. 5. Chronic kidney disease. 6. Hyperkalemia., Resolved. 7. Anemia, status post blood transfusion, continue to monitor hemoglobin and hematocrit. Started on Epogen. 8. Severe protein calorie malnutrition as evidenced by low albumin of 2.9. Dr. Cabral is following in gastroenterology consultation. Continue G-tube feeding. 9. History of cerebrovascular accident. 10. Hypertension. 11. History of paroxysmal atrial fibrillation. 12. Diabetes mellitus. Continue NovoLog per mild algorithm sliding scale. 13. Dysphagia, status post G-tube placement. With silent aspiration per video swallow eval, per speech therapy may have nectar thick by spoon only. Start physical therapy Further recommendations based on clinical course. Plan of care discussed with Dr. Patel. Problems: Subjective 24 Hr Interval Summary Free Text/Dictation Patient remains afebrile tolerates G-tube feeding well. Exam/Review of Systems Vital Signs Vitals Vital Signs Date Time Temp Pulse Resp B/P Pulse Ox O2 Delivery O2 Flow Rate FiO2 01/08/17 08:05 69 18 95 21 01/08/17 08:03 98.3 145/66 Intake and Output 01/07/17 01/07/17 01/08/17 15:00 23:00 07:00 Intake Total 1250 ml 700 ml Output Total 650 ml 1000 ml Balance 600 ml -300 ml Exam GENERAL: Well-developed, cachectic, elderly fragile gentleman, currently is awake, alert to name. HEENT: Head is atraumatic, normocephalic. Pupils equal and round, reactive to light and accommodation. Oral mucosa is pink, moist. NECK: Supple. No cervical lymphadenopathy, no thyromegaly. CHEST: Lung sounds clear bilaterally, slightly diminished at the bases. There are no rhonchi, wheezes, rales noted. CARDIOVASCULAR: Normal S1, S2. No murmurs, clicks, rubs noted. ABDOMEN: Flat, soft, nondistended, nontender. Bowel sounds present. G-tube. EXTREMITIES: There is no edema, clubbing, cyanosis. Pulses equal bilaterally 2 +. SKIN: The patient has a sacral small stage II ulcer. No rash, petechiae noted. NEUROLOGICAL: The patient is awake, alert to name and situation, otherwise confused. The patient with history of bilateral lower extremity weakness, however was able to ambulate using walker at longterm facility. Results Result Diagram: 01/08/1751901/08/17519 Results 24 hrs Laboratory Tests Test 01/07/17 17:53 01/08/17 00:39 01/08/17 05:20 01/08/17 05:32 Bedside Glucose 161 122 132 White Blood Count 13.1 H Red Blood Count 3.06 L Hemoglobin 8.4 L Hematocrit 26.0 L Mean Corpuscular Volume 85.0 Mean Corpuscular Hemoglobin 27.5 L Mean Corpuscular Hemoglobin Concent 32.3 Red Cell Distribution Width 15.6 H Platelet Count 410 Mean Platelet Volume 11.0 H Neutrophils % 64.0 Lymphocytes % 17.2 Monocytes % 9.0 Eosinophils % 8.4 H Basophils % 0.8 Nucleated Red Blood Cells % 0.0 Neutrophils # 8.4 H Lymphocytes # 2.3 Monocytes # 1.2 H Eosinophils # 1.1 H Basophils # 0.1 Nucleated Red Blood Cells # 0.0 Sodium Level 137 Potassium Level 4.7 Chloride Level 103 Carbon Dioxide Level 24 Anion Gap 15 Blood Urea Nitrogen 44 H Creatinine 2.68 H Glucose Level 133 Calcium Level 8.6 Medications Medications Current Medications Acetaminophen (Tylenol Tab) 650 mg Q6H PRN PO PAIN AND OR ELEVATED TEMP; Start 12/29/16 at 10:30; Status Future Hold Miscellaneous Information 1 ea NOTE XX ; Start 12/29/16 at 10:30 Glucose (Glutose) 15 gm Q15M PRN PO DECREASED GLUCOSE; Start 12/29/16 at 10:30 Glucose (Glutose) 22.5 gm Q15M PRN PO DECREASED GLUCOSE; Start 12/29/16 at 10:30 Dextrose (D50w Syringe) 25 ml Q15M PRN IV DECREASED GLUCOSE; Start 12/29/16 at 10:30 Dextrose (D50w Syringe) 50 ml Q15M PRN IV DECREASED GLUCOSE; Start 12/29/16 at 10:30 Glucagon (Glucagen) 1 mg Q15M PRN IM DECREASED GLUCOSE; Start 12/29/16 at 10:30 Glucose (Glutose) 15 gm Q15M PRN BUCCAL DECREASED GLUCOSE; Start 12/29/16 at 10: 30 Hydralazine HCl (Apresoline) 10 mg Q6H PRN IV sbp greater than 165 Last administered on 01/06/17 20:09; Admin Dose 10 MG; Start 12/29/16 at 10:30 Amiodarone HCl (Cordarone) 100 mg DAILY PO Last administered on 01/08/17 08:41 ; Admin Dose 100 MG; Start 12/29/16 at 12:00 Gabapentin (Neurontin) 300 mg DAILY PO Last administered on 01/08/17 08:41; Admin Dose 300 MG; Start 12/29/16 at 12:00 Megestrol Acetate (Megace) 40 mg BID PO Last administered on 01/08/17 08:41; Admin Dose 40 MG; Start 12/29/16 at 12:00 Tamsulosin HCl (Flomax) 0.4 mg HS PO Last administered on 01/07/17 21:46; Admin Dose 0.4 MG; Start 12/29/16 at 21:00 Atorvastatin Calcium (Lipitor) 20 mg DAILY@21 PO Last administered on 21:46; Admin Dose 20 MG; Start 12/29/16 at 21:00 Pantoprazole (Protonix Tab) 40 mg QAM PO Last administered on 01/08/17 08:41; Admin Dose 40 MG; Start 12/31/16 at 09:00 Docusate Sodium 100 mg 100 mg Q12 GTB Last administered on 01/08/17 08:41; Admin Dose 100 MG; Start 12/31/16 at 21:59 Cefepime HCl (Maxipime 1gm/50 ml (Pmx)) 50 ml @ 100 mls/hr Q24H IVPB Last administered on 01/07/17 21:46; Admin Dose 100 MLS/HR; Start 01/02/17 at 20:00 Insulin Aspart (Novolog Insulin Pen) NOVOLOG *MILD* ALGORI... Q6 SC Last administered on 01/07/17 17:58; Admin Dose 1 UNIT; Start 01/03/17 at 00:00 Hydralazine HCl (Apresoline) 25 mg Q8 GTB Last administered on 01/08/17 05:48 ; Admin Dose 25 MG; Start 01/02/17 at 22:45 Ondansetron HCl (Zofran Tab) 4 mg Q8 GTB Last administered on 01/08/17 05:48; Admin Dose 4 MG; Start 01/02/17 at 22:50 Acetaminophen (Tylenol Liquid) 650 mg Q6 PRN GTB PAIN AND OR ELEVATED TEMP; Start 01/02/17 at 23:00 Fluconazole (Diflucan) 100 mg DAILY PO Last administered on 01/08/17 08:41; Admin Dose 100 MG; Start 01/05/17 at 10:30 Polyethylene Glycol (Miralax) 17 gm DAILY PO Last administered on 01/08/17 08: 41; Admin Dose 17 GM; Start 01/06/17 at 09:00 Bisacodyl (Dulcolax Supp) 10 mg DAILY PRN [place] CONSTIPATION Last administered on 01/05/17 16:40; Admin Dose 10 MG; Start 01/05/17 at 15:30 Epoetin Taqueria (Epogen (Non Esrd/Non Oncology)) 10,000 units MoWeFr@17 SC Last administered on 01/06/17 17:37; Admin Dose 10,000 UNITS; Start 01/06/17 at 17: 00 GEOVANY IBARRA January 08, 2017 12:13
--- NOTE | 2017-01-08 17:22 | CONS ---
Date/Time of Note Date/Time of Note DATE: 01/08/17 TIME: 17:22 Assessment/Plan Assessment/Plan Additional Assessment/Plan Assessment/Plan Additional Assessment/Plan Additional Assessment/Plan IMPRESSION: 1. Dysphagia. Status post PEG 2. Renal failure 3. History of hypertension. 4. Cerebrovascular accident. 5. Chronic kidney disease. 6. Cachexia and malnutrition. 7. Diabetes mellitus. 8. Paroxysmal atrial fibrillation. 9. Anemia most probably of chronic disease 10. Pneumonia Plan Increase feeding slowly No active GI bleeding Aspiration precaution Consultation Date/Type/Reason Admit Date/Time December 29, 2016 at 04:03 Type of Consultation: renal 24 HR Interval Summary Constitutional: no complaints Exam/Review of Systems Vital Signs Vitals Vital Signs Date Time Temp Pulse Resp B/P Pulse Ox O2 Delivery O2 Flow Rate FiO2 01/08/17 17:15 71 18 98 21 01/08/17 08:03 98.3 145/66 Intake and Output 01/07/17 01/07/17 01/08/17 15:00 23:00 07:00 Intake Total 1250 ml 700 ml Output Total 650 ml 1000 ml Balance 600 ml -300 ml Exam Respiratory: clear to auscultation, normal air movement Gastrointestinal: nl liver, spleen, non-tender, soft Musculoskeletal: nl extremities to inspection, nl gait and stance Extremities: normal pulses Results Result Diagram: 01/08/17 0520 01/08/17 0520 Results 24 hrs Laboratory Tests Test 01/07/17 17:53 01/08/17 00:39 01/08/17 05:20 01/08/17 05:32 Bedside Glucose 161 122 132 White Blood Count 13.1 H Red Blood Count 3.06 L Hemoglobin 8.4 L Hematocrit 26.0 L Mean Corpuscular Volume 85.0 Mean Corpuscular Hemoglobin 27.5 L Mean Corpuscular Hemoglobin Concent 32.3 Red Cell Distribution Width 15.6 H Platelet Count 410 Mean Platelet Volume 11.0 H Neutrophils % 64.0 Lymphocytes % 17.2 Monocytes % 9.0 Eosinophils % 8.4 H Basophils % 0.8 Nucleated Red Blood Cells % 0.0 Neutrophils # 8.4 H Lymphocytes # 2.3 Monocytes # 1.2 H Eosinophils # 1.1 H Basophils # 0.1 Nucleated Red Blood Cells # 0.0 Sodium Level 137 Potassium Level 4.7 Chloride Level 103 Carbon Dioxide Level 24 Anion Gap 15 Blood Urea Nitrogen 44 H Creatinine 2.68 H Glucose Level 133 Calcium Level 8.6 Test 01/08/17 12:04 Bedside Glucose 180 Medications Medications Current Medications Acetaminophen (Tylenol Tab) 650 mg Q6H PRN PO PAIN AND OR ELEVATED TEMP; Start 12/29/16 at 10:30; Status Future Hold Miscellaneous Information 1 ea NOTE XX ; Start 12/29/16 at 10:30 Glucose (Glutose) 15 gm Q15M PRN PO DECREASED GLUCOSE; Start 12/29/16 at 10:30 Glucose (Glutose) 22.5 gm Q15M PRN PO DECREASED GLUCOSE; Start 12/29/16 at 10:30 Dextrose (D50w Syringe) 25 ml Q15M PRN IV DECREASED GLUCOSE; Start 12/29/16 at 10:30 Dextrose (D50w Syringe) 50 ml Q15M PRN IV DECREASED GLUCOSE; Start 12/29/16 at 10:30 Glucagon (Glucagen) 1 mg Q15M PRN IM DECREASED GLUCOSE; Start 12/29/16 at 10:30 Glucose (Glutose) 15 gm Q15M PRN BUCCAL DECREASED GLUCOSE; Start 12/29/16 at 10: 30 Hydralazine HCl (Apresoline) 10 mg Q6H PRN IV sbp greater than 165 Last administered on 01/06/17 20:09; Admin Dose 10 MG; Start 12/29/16 at 10:30 Amiodarone HCl (Cordarone) 100 mg DAILY PO Last administered on 01/08/17 08:41 ; Admin Dose 100 MG; Start 12/29/16 at 12:00 Gabapentin (Neurontin) 300 mg DAILY PO Last administered on 01/08/17 08:41; Admin Dose 300 MG; Start 12/29/16 at 12:00 Megestrol Acetate (Megace) 40 mg BID PO Last administered on 01/08/17 08:41; Admin Dose 40 MG; Start 12/29/16 at 12:00 Tamsulosin HCl (Flomax) 0.4 mg HS PO Last administered on 01/07/17 21:46; Admin Dose 0.4 MG; Start 12/29/16 at 21:00 Atorvastatin Calcium (Lipitor) 20 mg DAILY@21 PO Last administered on 21:46; Admin Dose 20 MG; Start 12/29/16 at 21:00 Pantoprazole (Protonix Tab) 40 mg QAM PO Last administered on 01/08/17 08:41; Admin Dose 40 MG; Start 12/31/16 at 09:00 Docusate Sodium 100 mg 100 mg Q12 GTB Last administered on 01/08/17 08:41; Admin Dose 100 MG; Start 12/31/16 at 21:59 Cefepime HCl (Maxipime 1gm/50 ml (Pmx)) 50 ml @ 100 mls/hr Q24H IVPB Last administered on 01/07/17 21:46; Admin Dose 100 MLS/HR; Start 01/02/17 at 20:00 Insulin Aspart (Novolog Insulin Pen) NOVOLOG *MILD* ALGORI... Q6 SC Last administered on 01/08/17 12:20; Admin Dose 1 UNIT; Start 01/03/17 at 00:00 Hydralazine HCl (Apresoline) 25 mg Q8 GTB Last administered on 01/08/17 14:13 ; Admin Dose 25 MG; Start 01/02/17 at 22:45 Ondansetron HCl (Zofran Tab) 4 mg Q8 GTB Last administered on 01/08/17 14:13; Admin Dose 4 MG; Start 01/02/17 at 22:50 Acetaminophen (Tylenol Liquid) 650 mg Q6 PRN GTB PAIN AND OR ELEVATED TEMP; Start 01/02/17 at 23:00 Fluconazole (Diflucan) 100 mg DAILY PO Last administered on 01/08/17 08:41; Admin Dose 100 MG; Start 01/05/17 at 10:30 Polyethylene Glycol (Miralax) 17 gm DAILY PO Last administered on 01/08/17 08: 41; Admin Dose 17 GM; Start 01/06/17 at 09:00 Bisacodyl (Dulcolax Supp) 10 mg DAILY PRN [place] CONSTIPATION Last administered on 01/05/17 16:40; Admin Dose 10 MG; Start 01/05/17 at 15:30 Epoetin Taqueria (Epogen (Non Esrd/Non Oncology)) 10,000 units MoWeFr@17 SC Last administered on 01/06/17 17:37; Admin Dose 10,000 UNITS; Start 01/06/17 at 17: 00 JEFRY CERNA MD January 08, 2017 17:22
[2017-01-08] MEDS: EPOETIN 10000 UNITS/ML (NON ESRD/NON ONCOLOGY) SC SCH (18:00)
--- NOTE | 2017-01-08 18:51 | CONS ---
Date/Time of Note Date/Time of Note DATE: 01/08/17 TIME: 18:50 Assessment/Plan Assessment/Plan Chief Complaint/Hosp Course SUBJECTIVE: No acute changes per report, afebrile. Tolerates tube feeding. MICROBIOLOGY: Urine culture + yeast DIAGNOSTICS: Chest x-ray on admission revealed left lower lobe infiltrate. CT of the brain revealed no significant changes from previous findings. INDWELLINGS: Flores, PEG. ANTIMICROBIALS: Cefepime, Diflucan. PHYSICAL EXAMINATION: GENERAL: This is a cachectic, fragile, elderly man who is in no distress. HEENT: Head atraumatic, normocephalic. Sclerae anicteric. Buccal mucosa dry. NECK: Supple, trachea midline. CHEST: Rise symmetrical. Breath sounds diminished to bases. HEART: S1, S2. ABDOMEN: Soft. Bowel tones present. ASSESSMENT: 1. Pneumonia, possibly aspiration. 2. Failure to thrive with dysphagia, patient has PEG. 3. Anemia. 4. Dementia. 5. Diabetes. 6. History of cerebrovascular accident. PLAN: The patient remains stable. Continue present care, complete abx, f/u GI rec-s [facility] staff Problems: Consultation Date/Type/Reason Admit Date/Time December 29, 2016 at 04:03 Type of Consultation: ID Exam/Review of Systems Vital Signs Vitals Vital Signs Date Time Temp Pulse Resp B/P Pulse Ox O2 Delivery O2 Flow Rate FiO2 01/08/17 17:15 71 18 98 21 01/08/17 08:03 98.3 145/66 Intake and Output 01/07/17 01/07/17 01/08/17 15:00 23:00 07:00 Intake Total 1250 ml 700 ml Output Total 650 ml 1000 ml Balance 600 ml -300 ml Results Result Diagram: 01/08/17 0520 01/08/17 0520 Results 24 hrs Laboratory Tests Test 01/08/17 00:39 01/08/17 05:20 01/08/17 05:32 01/08/17 12:04 Bedside Glucose 122 132 180 White Blood Count 13.1 H Red Blood Count 3.06 L Hemoglobin 8.4 L Hematocrit 26.0 L Mean Corpuscular Volume 85.0 Mean Corpuscular Hemoglobin 27.5 L Mean Corpuscular Hemoglobin Concent 32.3 Red Cell Distribution Width 15.6 H Platelet Count 410 Mean Platelet Volume 11.0 H Neutrophils % 64.0 Lymphocytes % 17.2 Monocytes % 9.0 Eosinophils % 8.4 H Basophils % 0.8 Nucleated Red Blood Cells % 0.0 Neutrophils # 8.4 H Lymphocytes # 2.3 Monocytes # 1.2 H Eosinophils # 1.1 H Basophils # 0.1 Nucleated Red Blood Cells # 0.0 Sodium Level 137 Potassium Level 4.7 Chloride Level 103 Carbon Dioxide Level 24 Anion Gap 15 Blood Urea Nitrogen 44 H Creatinine 2.68 H Glucose Level 133 Calcium Level 8.6 Test 01/08/17 17:56 Bedside Glucose 171 Medications Medications Current Medications Acetaminophen (Tylenol Tab) 650 mg Q6H PRN PO PAIN AND OR ELEVATED TEMP; Start 12/29/16 at 10:30; Status Future Hold Miscellaneous Information 1 ea NOTE XX ; Start 12/29/16 at 10:30 Glucose (Glutose) 15 gm Q15M PRN PO DECREASED GLUCOSE; Start 12/29/16 at 10:30 Glucose (Glutose) 22.5 gm Q15M PRN PO DECREASED GLUCOSE; Start 12/29/16 at 10:30 Dextrose (D50w Syringe) 25 ml Q15M PRN IV DECREASED GLUCOSE; Start 12/29/16 at 10:30 Dextrose (D50w Syringe) 50 ml Q15M PRN IV DECREASED GLUCOSE; Start 12/29/16 at 10:30 Glucagon (Glucagen) 1 mg Q15M PRN IM DECREASED GLUCOSE; Start 12/29/16 at 10:30 Glucose (Glutose) 15 gm Q15M PRN BUCCAL DECREASED GLUCOSE; Start 12/29/16 at 10: 30 Hydralazine HCl (Apresoline) 10 mg Q6H PRN IV sbp greater than 165 Last administered on 01/06/17 20:09; Admin Dose 10 MG; Start 12/29/16 at 10:30 Amiodarone HCl (Cordarone) 100 mg DAILY PO Last administered on 01/08/17 08:41 ; Admin Dose 100 MG; Start 12/29/16 at 12:00 Gabapentin (Neurontin) 300 mg DAILY PO Last administered on 01/08/17 08:41; Admin Dose 300 MG; Start 12/29/16 at 12:00 Megestrol Acetate (Megace) 40 mg BID PO Last administered on 01/08/17 08:41; Admin Dose 40 MG; Start 12/29/16 at 12:00 Tamsulosin HCl (Flomax) 0.4 mg HS PO Last administered on 01/07/17 21:46; Admin Dose 0.4 MG; Start 12/29/16 at 21:00 Atorvastatin Calcium (Lipitor) 20 mg DAILY@21 PO Last administered on 21:46; Admin Dose 20 MG; Start 12/29/16 at 21:00 Pantoprazole (Protonix Tab) 40 mg QAM PO Last administered on 01/08/17 08:41; Admin Dose 40 MG; Start 12/31/16 at 09:00 Docusate Sodium 100 mg 100 mg Q12 GTB Last administered on 01/08/17 08:41; Admin Dose 100 MG; Start 12/31/16 at 21:59 Cefepime HCl (Maxipime 1gm/50 ml (Pmx)) 50 ml @ 100 mls/hr Q24H IVPB Last administered on 01/07/17 21:46; Admin Dose 100 MLS/HR; Start 01/02/17 at 20:00 Insulin Aspart (Novolog Insulin Pen) NOVOLOG *MILD* ALGORI... Q6 SC Last administered on 01/08/17 17:59; Admin Dose 1 UNIT; Start 01/03/17 at 00:00 Hydralazine HCl (Apresoline) 25 mg Q8 GTB Last administered on 01/08/17 14:13 ; Admin Dose 25 MG; Start 01/02/17 at 22:45 Ondansetron HCl (Zofran Tab) 4 mg Q8 GTB Last administered on 01/08/17 14:13; Admin Dose 4 MG; Start 01/02/17 at 22:50 Acetaminophen (Tylenol Liquid) 650 mg Q6 PRN GTB PAIN AND OR ELEVATED TEMP; Start 01/02/17 at 23:00 Fluconazole (Diflucan) 100 mg DAILY PO Last administered on 01/08/17 08:41; Admin Dose 100 MG; Start 01/05/17 at 10:30 Polyethylene Glycol (Miralax) 17 gm DAILY PO Last administered on 01/08/17 08: 41; Admin Dose 17 GM; Start 01/06/17 at 09:00 Bisacodyl (Dulcolax Supp) 10 mg DAILY PRN [place] CONSTIPATION Last administered on 01/05/17 16:40; Admin Dose 10 MG; Start 01/05/17 at 15:30 Epoetin Taqueria (Epogen (Non Esrd/Non Oncology)) 10,000 units MoWeFr@17 SC Last administered on 01/08/17 18:00; Admin Dose 10,000 UNITS; Start 01/06/17 at 17: 00 KAYLA CASTREJON NP January 08, 2017 18:51
[2017-01-08] MEDS: CEFEPIME 1GM/50 ML (PMX) 50 ML IVPB SCH (19:59)
[2017-01-08] MEDS: ATORVASTATIN 20 MG TAB PO SCH (20:21)
[2017-01-08] MEDS: TAMSULOSIN (SR) 0.4 MG CAP PO SCH (20:21)
[2017-01-08 21:30] VITALS: BP 160/76
[2017-01-08 21:47] VITALS: BP 179/61; RESP 18
[2017-01-09] MEDS: INSULIN ASPART [NOVOLOG] 3 ML PEN SC SCH ×4 (00:39→17:51)
[2017-01-09] MEDS: ALBUTEROL/IPRATROPIUM (NEB) 3 ML AMP HHN SCH ×6 (01:49→20:21)
[2017-01-09 05:06] LABS: ADD SCAN DIFF NO; BASOPHIL # 0.1 10^3/ul (0.0-0.1); BASOPHILS % 0.8 % (0.0-2.0); EOSINOPHILS # 0.9 10^3/ul (0.0-0.5); EOSINOPHILS % 7.1 % (0.0-7.0); HEMATOCRIT 24.8 % (42.0-52.0); HEMOGLOBIN 8.1 g/dl (14.0-18.0); LYMPHOCYTES # 2.4 10^3/ul (0.8-2.9); MEAN CORPUSCULAR HEMOGLOBIN 27.9 pg (29.0-33.0); MEAN CORPUSCULAR HGB CONC 32.7 g/dl (32.0-37.0); MEAN CORPUSCULAR VOLUME 85.5 fl (82.0-101.0); MEAN PLATELET VOLUME 10.9 fl (7.4-10.4); MONOCYTE # 1.1 10^3/ul (0.3-0.9); MONOCYTES % 8.7 % (0.0-11.0); NEUTROPHIL # 8.5 10^3/ul (1.6-7.5); NEUTROPHILS % 64.4 % (39.0-77.0); PLATELET COUNT 441 10^3/UL (140-415); RED CELL DISTRIBUTION WIDTH 15.5 % (11.5-14.5); WHITE BLOOD COUNT 13.2 10^3/ul (4.8-10.8)
[2017-01-09 05:37] LABS: POTASSIUM 5.3 mmol/L (3.5-5.1)
[2017-01-09 05:40] LABS: CALCIUM 8.3 mg/dl (8.4-10.2); CREATININE 2.84 mg/dl (0.61-1.24)
[2017-01-09] MEDS: ONDANSETRON 4 MG TAB GTB SCH ×3 (05:52→21:30)
[2017-01-09 07:49] VITALS: BP 126/68; RESP 18; RESP 79
[2017-01-09] MEDS: POLYETHYLENE GLYCOL 17 GM PACKET PO SCH (09:11)
[2017-01-09] MEDS: PANTOPRAZOLE (EC) 40 MG TAB PO SCH (09:11)
[2017-01-09] MEDS: DOCUSATE SODIUM 10 MG/ML (10ML CUP) GTB SCH ×2 (09:11→21:27)
[2017-01-09] MEDS: FLUCONAZOLE 100 MG TAB PO SCH (09:11)
[2017-01-09] MEDS: AMIODARONE 200 MG TAB PO SCH (09:11)
[2017-01-09] MEDS: GABAPENTIN 300 MG CAP PO SCH (09:11)
[2017-01-09] MEDS: MEGESTROL 40 MG TAB PO SCH ×2 (09:11→21:27)
[2017-01-09] MEDS ORDERED: NA POLYST SULFON 15 GM/60 ML BTL GTB ONE (09:30)
--- NOTE | 2017-01-09 11:12 | CONS ---
CHELSIE HERNÁNDEZ 01/09/17 1111: Date/Time of Note Date/Time of Note DATE: 01/09/17 TIME: 11:01 Assessment/Plan Assessment/Plan Chief Complaint/Hosp Course 1. Dysphagia. Status post PEG 2. Prerenal azotemia. 3. History of hypertension. 4. Cerebrovascular accident. 5. Chronic kidney disease. 6. Cachexia and malnutrition. 7. Diabetes mellitus. 8. Paroxysmal atrial fibrillation. Problems: Additional Assessment/Plan 1. Continue HD 2. Continue tube feeding Consultation Date/Type/Reason Admit Date/Time December 29, 2016 at 04:03 Initial Consult Date Type of Consultation: renal Reason for Consultation Dr Ramos 24 HR Interval Summary Subjective hx not possible: other (incoherent) Exam/Review of Systems Vital Signs Vitals Vital Signs Date Time Temp Pulse Resp B/P Pulse Ox O2 Delivery O2 Flow Rate FiO2 01/09/17 10:02 68 16 96 21 01/09/17 07:49 98.4 126/68 Intake and Output 01/08/17 01/08/17 01/09/17 15:00 23:00 07:00 Intake Total 110 ml 50 ml 920 ml Output Total 1100 ml Balance 110 ml 50 ml -180 ml Exam Constitutional: alert, other (speaking Tagalog poor historian) Results Result Diagram: 01/09/17 0425 01/09/17 0425 Results 24 hrs Laboratory Tests Test 01/08/17 12:04 01/08/17 17:56 01/09/17 00:22 01/09/17 04:25 Bedside Glucose 180 171 147 White Blood Count 13.2 H Red Blood Count 2.90 L Hemoglobin 8.1 L Hematocrit 24.8 L Mean Corpuscular Volume 85.5 Mean Corpuscular Hemoglobin 27.9 L Mean Corpuscular Hemoglobin Concent 32.7 Red Cell Distribution Width 15.5 H Platelet Count 441 H Mean Platelet Volume 10.9 H Neutrophils % 64.4 Lymphocytes % 18.0 Monocytes % 8.7 Eosinophils % 7.1 H Basophils % 0.8 Nucleated Red Blood Cells % 0.0 Neutrophils # 8.5 H Lymphocytes # 2.4 Monocytes # 1.1 H Eosinophils # 0.9 H Basophils # 0.1 Nucleated Red Blood Cells # 0.0 Sodium Level 135 Potassium Level 5.3 H Chloride Level 102 Carbon Dioxide Level 25 Anion Gap 13 Blood Urea Nitrogen 51 H Creatinine 2.84 H Glucose Level 136 Calcium Level 8.3 L Test 01/09/17 05:56 Bedside Glucose 149 Medications Medications Current Medications Acetaminophen (Tylenol Tab) 650 mg Q6H PRN PO PAIN AND OR ELEVATED TEMP; Start 12/29/16 at 10:30; Status Future Hold Miscellaneous Information 1 ea NOTE XX ; Start 12/29/16 at 10:30 Glucose (Glutose) 15 gm Q15M PRN PO DECREASED GLUCOSE; Start 12/29/16 at 10:30 Glucose (Glutose) 22.5 gm Q15M PRN PO DECREASED GLUCOSE; Start 12/29/16 at 10:30 Dextrose (D50w Syringe) 25 ml Q15M PRN IV DECREASED GLUCOSE; Start 12/29/16 at 10:30 Dextrose (D50w Syringe) 50 ml Q15M PRN IV DECREASED GLUCOSE; Start 12/29/16 at 10:30 Glucagon (Glucagen) 1 mg Q15M PRN IM DECREASED GLUCOSE; Start 12/29/16 at 10:30 Glucose (Glutose) 15 gm Q15M PRN BUCCAL DECREASED GLUCOSE; Start 12/29/16 at 10: 30 Hydralazine HCl (Apresoline) 10 mg Q6H PRN IV sbp greater than 165 Last administered on 01/06/17 20:09; Admin Dose 10 MG; Start 12/29/16 at 10:30 Amiodarone HCl (Cordarone) 100 mg DAILY PO Last administered on 01/09/17 09:11 ; Admin Dose 100 MG; Start 12/29/16 at 12:00 Gabapentin (Neurontin) 300 mg DAILY PO Last administered on 01/09/17 09:11; Admin Dose 300 MG; Start 12/29/16 at 12:00 Megestrol Acetate (Megace) 40 mg BID PO Last administered on 01/09/17 09:11; Admin Dose 40 MG; Start 12/29/16 at 12:00 Tamsulosin HCl (Flomax) 0.4 mg HS PO Last administered on 01/08/17 20:21; Admin Dose 0.4 MG; Start 12/29/16 at 21:00 Atorvastatin Calcium (Lipitor) 20 mg DAILY@21 PO Last administered on 20:21; Admin Dose 20 MG; Start 12/29/16 at 21:00 Pantoprazole (Protonix Tab) 40 mg QAM PO Last administered on 01/09/17 09:11; Admin Dose 40 MG; Start 12/31/16 at 09:00 Docusate Sodium 100 mg 100 mg Q12 GTB Last administered on 01/09/17 09:11; Admin Dose 100 MG; Start 12/31/16 at 21:59 Cefepime HCl (Maxipime 1gm/50 ml (Pmx)) 50 ml @ 100 mls/hr Q24H IVPB Last administered on 01/08/17 19:59; Admin Dose 100 MLS/HR; Start 01/02/17 at 20:00 Insulin Aspart (Novolog Insulin Pen) NOVOLOG *MILD* ALGORI... Q6 SC Last administered on 01/09/17 05:58; Admin Dose 1 UNIT; Start 01/03/17 at 00:00 Hydralazine HCl (Apresoline) 25 mg Q8 GTB Last administered on 01/09/17 05:52 ; Admin Dose 25 MG; Start 01/02/17 at 22:45 Ondansetron HCl (Zofran Tab) 4 mg Q8 GTB Last administered on 01/09/17 05:52; Admin Dose 4 MG; Start 01/02/17 at 22:50 Acetaminophen (Tylenol Liquid) 650 mg Q6 PRN GTB PAIN AND OR ELEVATED TEMP; Start 01/02/17 at 23:00 Fluconazole (Diflucan) 100 mg DAILY PO Last administered on 01/09/17 09:11; Admin Dose 100 MG; Start 01/05/17 at 10:30 Polyethylene Glycol (Miralax) 17 gm DAILY PO Last administered on 01/09/17 09: 11; Admin Dose 17 GM; Start 01/06/17 at 09:00 Bisacodyl (Dulcolax Supp) 10 mg DAILY PRN [place] CONSTIPATION Last administered on 01/05/17 16:40; Admin Dose 10 MG; Start 01/05/17 at 15:30 Epoetin Taqueria (Epogen (Non Esrd/Non Oncology)) 10,000 units MoWeFr@17 SC Last administered on 01/08/17 18:00; Admin Dose 10,000 UNITS; Start 01/06/17 at 17: 00 ABBY RAMOS MD 01/09/17 1611: Assessment/Plan Assessment/Plan Chief Complaint/Hosp Course ckd peg no hd Problems: Consultation Date/Type/Reason Type of Consultation: renal 24 HR Interval Summary Constitutional: no complaints Exam/Review of Systems Exam Respiratory: clear to auscultation Cardiovascular: regular rate and rhythm Results Result Diagram: 01/09/17 0425 01/09/17 0425 CHELSIE HERNÁNDEZ January 09, 2017 11:11 ABBY RAMOS MD January 09, 2017 16:11
[2017-01-09 13:58] VITALS: BP 143/66; PULSE 82
--- NOTE | 2017-01-09 16:16 | PN ---
Date/Time of Note Date/Time of Note DATE: 01/09/17 TIME: 16:14 Assessment/Plan VTE Prophylaxis VTE Prophylaxis Intervention: other Lines/Catheters IV Catheter Type (from [facility] Urinary Cath still in place: Yes Assessment/Plan Assessment/Plan 1. Altered level of consciousness, most likely secondary to electrolyte imbalances secondary to metabolic encephalopathy. 2. Possible healthcare-acquired pneumonia. Continue patient on cefepime and vancomycin. 3. Systemic inflammatory response syndrome secondary to pneumonia. 4. Diastolic congestive heart failure. 5. Chronic kidney disease. 6. Hyperkalemia- Kayexalate, am BMP 7. Anemia, status post blood transfusion, continue to monitor hemoglobin and hematocrit. Started on Epogen. 8. Severe protein calorie malnutrition as evidenced by low albumin of 2.9. Dr. Cabral is following in gastroenterology consultation. Continue G-tube feeding. 9. History of cerebrovascular accident. 10. Hypertension. 11. History of paroxysmal atrial fibrillation. 12. Diabetes mellitus. Continue NovoLog per mild algorithm sliding scale. 13. Dysphagia, status post G-tube placement. With silent aspiration per video swallow eval, per speech therapy may have nectar thick by \ spoon only. 14. Generalized weakness - cont. physical therapy Further recommendations based on clinical course. Plan of care discussed with Dr. Patel. Subjective 24 Hr Interval Summary Free Text/Dictation nad, awake, seems comfortable, follows simple commands, hyperkalemia- sp kayexalate, am labs. afebrile tolerates G-tube feeding well.dw staff Respiratory: no complaints Cardiovascular: no complaints Gastrointestinal: no complaints Exam/Review of Systems Vital Signs Vitals Vital Signs Date Time Temp Pulse Resp B/P Pulse Ox O2 Delivery O2 Flow Rate FiO2 01/09/17 13:58 82 143/66 01/09/17 13:17 18 95 21 01/09/17 07:49 98.4 Intake and Output 01/08/17 01/08/17 01/09/17 15:00 23:00 07:00 Intake Total 110 ml 50 ml 920 ml Output Total 1100 ml Balance 110 ml 50 ml -180 ml Exam Constitutional: alert, well developed Respiratory: clear to auscultation Cardiovascular: nl pulses Gastrointestinal: non-tender, soft Results Result Diagram: 01/09/17 0425 01/09/17 0425 Results 24 hrs Laboratory Tests Test 01/08/17 17:56 01/09/17 00:22 01/09/17 04:25 01/09/17 05:56 Bedside Glucose 171 147 149 White Blood Count 13.2 H Red Blood Count 2.90 L Hemoglobin 8.1 L Hematocrit 24.8 L Mean Corpuscular Volume 85.5 Mean Corpuscular Hemoglobin 27.9 L Mean Corpuscular Hemoglobin Concent 32.7 Red Cell Distribution Width 15.5 H Platelet Count 441 H Mean Platelet Volume 10.9 H Neutrophils % 64.4 Lymphocytes % 18.0 Monocytes % 8.7 Eosinophils % 7.1 H Basophils % 0.8 Nucleated Red Blood Cells % 0.0 Neutrophils # 8.5 H Lymphocytes # 2.4 Monocytes # 1.1 H Eosinophils # 0.9 H Basophils # 0.1 Nucleated Red Blood Cells # 0.0 Sodium Level 135 Potassium Level 5.3 H Chloride Level 102 Carbon Dioxide Level 25 Anion Gap 13 Blood Urea Nitrogen 51 H Creatinine 2.84 H Glucose Level 136 Calcium Level 8.3 L Test 01/09/17 12:32 Bedside Glucose 187 Medications Medications Current Medications Acetaminophen (Tylenol Tab) 650 mg Q6H PRN PO PAIN AND OR ELEVATED TEMP; Start 12/29/16 at 10:30; Status Future Hold Miscellaneous Information 1 ea NOTE XX ; Start 12/29/16 at 10:30 Glucose (Glutose) 15 gm Q15M PRN PO DECREASED GLUCOSE; Start 12/29/16 at 10:30 Glucose (Glutose) 22.5 gm Q15M PRN PO DECREASED GLUCOSE; Start 12/29/16 at 10:30 Dextrose (D50w Syringe) 25 ml Q15M PRN IV DECREASED GLUCOSE; Start 12/29/16 at 10:30 Dextrose (D50w Syringe) 50 ml Q15M PRN IV DECREASED GLUCOSE; Start 12/29/16 at 10:30 Glucagon (Glucagen) 1 mg Q15M PRN IM DECREASED GLUCOSE; Start 12/29/16 at 10:30 Glucose (Glutose) 15 gm Q15M PRN BUCCAL DECREASED GLUCOSE; Start 12/29/16 at 10: 30 Hydralazine HCl (Apresoline) 10 mg Q6H PRN IV sbp greater than 165 Last administered on 01/06/17t 20:09; Admin Dose 10 MG; Start 12/29/16 at 10:30 Amiodarone HCl (Cordarone) 100 mg DAILY PO Last administered on 01/09/17 09:11 ; Admin Dose 100 MG; Start 12/29/16 at 12:00 Gabapentin (Neurontin) 300 mg DAILY PO Last administered on 01/09/17 09:11; Admin Dose 300 MG; Start 12/29/16 at 12:00 Megestrol Acetate (Megace) 40 mg BID PO Last administered on 01/09/17 09:11; Admin Dose 40 MG; Start 12/29/16 at 12:00 Tamsulosin HCl (Flomax) 0.4 mg HS PO Last administered on 01/08/17 20:21; Admin Dose 0.4 MG; Start 12/29/16 at 21:00 Atorvastatin Calcium (Lipitor) 20 mg DAILY@21 PO Last administered on 20:21; Admin Dose 20 MG; Start 12/29/16 at 21:00 Pantoprazole (Protonix Tab) 40 mg QAM PO Last administered on 01/09/17 09:11; Admin Dose 40 MG; Start 12/31/16 at 09:00 Docusate Sodium 100 mg 100 mg Q12 GTB Last administered on 01/09/17 09:11; Admin Dose 100 MG; Start 12/31/16 at 21:59 Cefepime HCl (Maxipime 1gm/50 ml (Pmx)) 50 ml @ 100 mls/hr Q24H IVPB Last administered on 01/08/17 19:59; Admin Dose 100 MLS/HR; Start 01/02/17 at 20:00 Insulin Aspart (Novolog Insulin Pen) NOVOLOG *MILD* ALGORI... Q6 SC Last administered on 01/09/17 12:36; Admin Dose 2 UNIT; Start 01/03/17 at 00:00 Hydralazine HCl (Apresoline) 25 mg Q8 GTB Last administered on 01/09/17 13:57 ; Admin Dose 25 MG; Start 01/02/17 at 22:45 Ondansetron HCl (Zofran Tab) 4 mg Q8 GTB Last administered on 01/09/17 13:58; Admin Dose 4 MG; Start 01/02/17 at 22:50 Acetaminophen (Tylenol Liquid) 650 mg Q6 PRN GTB PAIN AND OR ELEVATED TEMP; Start 01/02/17 at 23:00 Fluconazole (Diflucan) 100 mg DAILY PO Last administered on 01/09/17 09:11; Admin Dose 100 MG; Start 01/05/17 at 10:30 Polyethylene Glycol (Miralax) 17 gm DAILY PO Last administered on 01/09/17 09: 11; Admin Dose 17 GM; Start 01/06/17 at 09:00 Bisacodyl (Dulcolax Supp) 10 mg DAILY PRN [place] CONSTIPATION Last administered on 01/05/17 16:40; Admin Dose 10 MG; Start 01/05/17 at 15:30 Epoetin Taqueria (Epogen (Non Esrd/Non Oncology)) 10,000 units MoWeFr@17 SC Last administered on 01/08/17 18:00; Admin Dose 10,000 UNITS; Start 01/06/17 at 17: 00 MARCY WEINER January 09, 2017 16:16
--- NOTE | 2017-01-09 17:18 | CONS ---
Date/Time of Note Date/Time of Note DATE: 01/09/17 TIME: 17:17 Assessment/Plan Assessment/Plan Chief Complaint/Hosp Course ID PROGRESS NOTE ABX DAY # Diflucan 01/05 + Cefepime 01/02 24H INTERVAL SUMMARY * Lethargic, looks comfortable, chart reviewed, no new issues, tolerate TF * MICROBIOLOGY: Urine culture + yeast * DIAGNOSTICS: Chest x-ray on admission revealed left lower lobe infiltrate. CT of the brain revealed no significant changes from previous findings. * INDWELLINGS: Flores, PEG. PIV PHYSICAL EXAMINATION: GENERAL: Thin appearing debilitated M, calm, looks comfortable HEENT: Unremarkable NECK: Trach-> midline CHEST: Equal chest rise bilaterally, without dyspnea on observation ABDOMEN: Soft, peg EXTREMITIES: Warm, SKIN: Warm, dry ID ASSESSMENT: 71 yo M w/PMHx CVA w/LE weakness, dementia, dysphagia admitted with: 1. Pneumonia, aspiration w/retained secretions 2. Failure to thrive with dysphagia, patient has PEG. 3. Anemia w/FeSo4 deficiency 4. Diabetes. 5. HTN 6 Afib 7. CKD 8. Hx of hip surgery 9. Sacral decub II, heel decub ABX ALLERGIES: NKDA CURRENT ABX: # Diflucan 01/05 + Cefepime 01/02 ID RECOMMENDATIONS: 1. Continue current ABX over the weekend. 2. ASP Precautions 3. ID team will follow . Problems: Consultation Date/Type/Reason Admit Date/Time December 29, 2016 at 04:03 Initial Consult Date Type of Consultation: ID Exam/Review of Systems Vital Signs Vitals Vital Signs Date Time Temp Pulse Resp B/P Pulse Ox O2 Delivery O2 Flow Rate FiO2 01/09/17 16:48 66 18 99 21 01/09/17 13:58 143/66 01/09/17 07:49 98.4 Intake and Output 01/08/17 01/08/17 01/09/17 15:00 23:00 07:00 Intake Total 110 ml 50 ml 920 ml Output Total 1100 ml Balance 110 ml 50 ml -180 ml Results Result Diagram: 01/09/17 0425 01/09/17 0425 Results 24 hrs Laboratory Tests Test 01/08/17 17:56 01/09/17 00:22 01/09/17 04:25 01/09/17 05:56 Bedside Glucose 171 147 149 White Blood Count 13.2 H Red Blood Count 2.90 L Hemoglobin 8.1 L Hematocrit 24.8 L Mean Corpuscular Volume 85.5 Mean Corpuscular Hemoglobin 27.9 L Mean Corpuscular Hemoglobin Concent 32.7 Red Cell Distribution Width 15.5 H Platelet Count 441 H Mean Platelet Volume 10.9 H Neutrophils % 64.4 Lymphocytes % 18.0 Monocytes % 8.7 Eosinophils % 7.1 H Basophils % 0.8 Nucleated Red Blood Cells % 0.0 Neutrophils # 8.5 H Lymphocytes # 2.4 Monocytes # 1.1 H Eosinophils # 0.9 H Basophils # 0.1 Nucleated Red Blood Cells # 0.0 Sodium Level 135 Potassium Level 5.3 H Chloride Level 102 Carbon Dioxide Level 25 Anion Gap 13 Blood Urea Nitrogen 51 H Creatinine 2.84 H Glucose Level 136 Calcium Level 8.3 L Test 01/09/17 12:32 Bedside Glucose 187 Medications Medications Current Medications Acetaminophen (Tylenol Tab) 650 mg Q6H PRN PO PAIN AND OR ELEVATED TEMP; Start 12/29/16 at 10:30; Status Future Hold Miscellaneous Information 1 ea NOTE XX ; Start 12/29/16 at 10:30 Glucose (Glutose) 15 gm Q15M PRN PO DECREASED GLUCOSE; Start 12/29/16 at 10:30 Glucose (Glutose) 22.5 gm Q15M PRN PO DECREASED GLUCOSE; Start 12/29/16 at 10:30 Dextrose (D50w Syringe) 25 ml Q15M PRN IV DECREASED GLUCOSE; Start 12/29/16 at 10:30 Dextrose (D50w Syringe) 50 ml Q15M PRN IV DECREASED GLUCOSE; Start 12/29/16 at 10:30 Glucagon (Glucagen) 1 mg Q15M PRN IM DECREASED GLUCOSE; Start 12/29/16 at 10:30 Glucose (Glutose) 15 gm Q15M PRN BUCCAL DECREASED GLUCOSE; Start 12/29/16 at 10: 30 Hydralazine HCl (Apresoline) 10 mg Q6H PRN IV sbp greater than 165 Last administered on 01/06/17 20:09; Admin Dose 10 MG; Start 12/29/16 at 10:30 Amiodarone HCl (Cordarone) 100 mg DAILY PO Last administered on 01/09/17 09:11 ; Admin Dose 100 MG; Start 12/29/16 at 12:00 Gabapentin (Neurontin) 300 mg DAILY PO Last administered on 01/09/17 09:11; Admin Dose 300 MG; Start 12/29/16 at 12:00 Megestrol Acetate (Megace) 40 mg BID PO Last administered on 01/09/17 09:11; Admin Dose 40 MG; Start 12/29/16 at 12:00 Tamsulosin HCl (Flomax) 0.4 mg HS PO Last administered on 01/08/17 20:21; Admin Dose 0.4 MG; Start 12/29/16 at 21:00 Atorvastatin Calcium (Lipitor) 20 mg DAILY@21 PO Last administered on 20:21; Admin Dose 20 MG; Start 12/29/16 at 21:00 Pantoprazole (Protonix Tab) 40 mg QAM PO Last administered on 01/09/17 09:11; Admin Dose 40 MG; Start 12/31/16 at 09:00 Docusate Sodium 100 mg 100 mg Q12 GTB Last administered on 01/09/17 09:11; Admin Dose 100 MG; Start 12/31/16 at 21:59 Cefepime HCl (Maxipime 1gm/50 ml (Pmx)) 50 ml @ 100 mls/hr Q24H IVPB Last administered on 01/08/17 19:59; Admin Dose 100 MLS/HR; Start 01/02/17 at 20:00 Insulin Aspart (Novolog Insulin Pen) NOVOLOG *MILD* ALGORI... Q6 SC Last administered on 01/09/17 12:36; Admin Dose 2 UNIT; Start 01/03/17 at 00:00 Hydralazine HCl (Apresoline) 25 mg Q8 GTB Last administered on 01/09/17 13:57 ; Admin Dose 25 MG; Start 01/02/17 at 22:45 Ondansetron HCl (Zofran Tab) 4 mg Q8 GTB Last administered on 01/09/17 13:58; Admin Dose 4 MG; Start 01/02/17 at 22:50 Acetaminophen (Tylenol Liquid) 650 mg Q6 PRN GTB PAIN AND OR ELEVATED TEMP; Start 01/02/17 at 23:00 Fluconazole (Diflucan) 100 mg DAILY PO Last administered on 01/09/17 09:11; Admin Dose 100 MG; Start 01/05/17 at 10:30 Polyethylene Glycol (Miralax) 17 gm DAILY PO Last administered on 01/09/17 09: 11; Admin Dose 17 GM; Start 01/06/17 at 09:00 Bisacodyl (Dulcolax Supp) 10 mg DAILY PRN [place] CONSTIPATION Last administered on 01/05/17 16:40; Admin Dose 10 MG; Start 01/05/17 at 15:30 Epoetin Taqueria (Epogen (Non Esrd/Non Oncology)) 10,000 units MoWeFr@17 SC Last administered on 01/08/17 18:00; Admin Dose 10,000 UNITS; Start 01/06/17 at 17: 00 ANNE-MARIE PRAKASH NP January 09, 2017 17:18
--- NOTE | 2017-01-09 20:08 | CONS ---
Date/Time of Note Date/Time of Note DATE: 01/09/17 TIME: 20:07 Assessment/Plan Assessment/Plan Additional Assessment/Plan Assessment/Plan Additional Assessment/Plan Additional Assessment/Plan IMPRESSION: 1. Dysphagia. Status post PEG 2. Renal failure 3. History of hypertension. 4. Cerebrovascular accident. 5. Chronic kidney disease. 6. Cachexia and malnutrition. 7. Diabetes mellitus. 8. Paroxysmal atrial fibrillation. 9. Anemia most probably of chronic disease 10. Pneumonia Plan Increase feeding slowly No active GI bleeding Aspiration precaution Continue antibiotic as per ID Physical therapy evaluation and treatment Consultation Date/Type/Reason Admit Date/Time December 29, 2016 at 04:03 Type of Consultation: ID [id number] HR Interval Summary Constitutional: no complaints Exam/Review of Systems Vital Signs Vitals Vital Signs Date Time Temp Pulse Resp B/P Pulse Ox O2 Delivery O2 Flow Rate FiO2 01/09/17 16:48 66 18 99 21 01/09/17 13:58 143/66 01/09/17 07:49 98.4 Intake and Output 01/08/17 01/08/17 01/09/17 15:00 23:00 07:00 Intake Total 110 ml 810 ml 920 ml Output Total 1200 ml 1100 ml Balance 110 ml -390 ml -180 ml Exam Constitutional: alert, oriented, well developed Psych: nl mood/affect, no complaints Head: atraumatic, normocephalic Eyes: EOMI, PERRL, nl conjunctiva, nl lids, nl sclera ENMT: nl external ears & nose, nl lips & teeth, nl nasal mucosa & septum Neck: non-tender, supple Respiratory: clear to auscultation, normal air movement Cardiovascular: nl pulses, regular rate and rhythm Gastrointestinal: nl liver, spleen, non-tender, soft Musculoskeletal: nl extremities to inspection, nl gait and stance Extremities: normal pulses 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, nl mental status, nl speech, nl strength Skin: nl turgor, No rash or lesions Lymph: nl lymph nodes Results Result Diagram: 01/09/17 0425 01/09/17 0425 Results 24 hrs Laboratory Tests Test 01/09/17 00:22 01/09/17 04:25 01/09/17 05:56 01/09/17 12:32 Bedside Glucose 147 149 187 White Blood Count 13.2 H Red Blood Count 2.90 L Hemoglobin 8.1 L Hematocrit 24.8 L Mean Corpuscular Volume 85.5 Mean Corpuscular Hemoglobin 27.9 L Mean Corpuscular Hemoglobin Concent 32.7 Red Cell Distribution Width 15.5 H Platelet Count 441 H Mean Platelet Volume 10.9 H Neutrophils % 64.4 Lymphocytes % 18.0 Monocytes % 8.7 Eosinophils % 7.1 H Basophils % 0.8 Nucleated Red Blood Cells % 0.0 Neutrophils # 8.5 H Lymphocytes # 2.4 Monocytes # 1.1 H Eosinophils # 0.9 H Basophils # 0.1 Nucleated Red Blood Cells # 0.0 Sodium Level 135 Potassium Level 5.3 H Chloride Level 102 Carbon Dioxide Level 25 Anion Gap 13 Blood Urea Nitrogen 51 H Creatinine 2.84 H Glucose Level 136 Calcium Level 8.3 L Test 01/09/17 17:42 Bedside Glucose 198 Medications Medications Current Medications Acetaminophen (Tylenol Tab) 650 mg Q6H PRN PO PAIN AND OR ELEVATED TEMP; Start 12/29/16 at 10:30; Status Future Hold Miscellaneous Information 1 ea NOTE XX ; Start 12/29/16 at 10:30 Glucose (Glutose) 15 gm Q15M PRN PO DECREASED GLUCOSE; Start 12/29/16 at 10:30 Glucose (Glutose) 22.5 gm Q15M PRN PO DECREASED GLUCOSE; Start 12/29/16 at 10:30 Dextrose (D50w Syringe) 25 ml Q15M PRN IV DECREASED GLUCOSE; Start 12/29/16 at 10:30 Dextrose (D50w Syringe) 50 ml Q15M PRN IV DECREASED GLUCOSE; Start 12/29/16 at 10:30 Glucagon (Glucagen) 1 mg Q15M PRN IM DECREASED GLUCOSE; Start 12/29/16 at 10:30 Glucose (Glutose) 15 gm Q15M PRN BUCCAL DECREASED GLUCOSE; Start 12/29/16 at 10: 30 Hydralazine HCl (Apresoline) 10 mg Q6H PRN IV sbp greater than 165 Last administered on 01/06/17 20:09; Admin Dose 10 MG; Start 12/29/16 at 10:30 Amiodarone HCl (Cordarone) 100 mg DAILY PO Last administered on 01/09/17 09:11 ; Admin Dose 100 MG; Start 12/29/16 at 12:00 Gabapentin (Neurontin) 300 mg DAILY PO Last administered on 01/09/17 09:11; Admin Dose 300 MG; Start 12/29/16 at 12:00 Megestrol Acetate (Megace) 40 mg BID PO Last administered on 01/09/17 09:11; Admin Dose 40 MG; Start 12/29/16 at 12:00 Tamsulosin HCl (Flomax) 0.4 mg HS PO Last administered on 01/08/17 20:21; Admin Dose 0.4 MG; Start 12/29/16 at 21:00 Atorvastatin Calcium (Lipitor) 20 mg DAILY@21 PO Last administered on 20:21; Admin Dose 20 MG; Start 12/29/16 at 21:00 Pantoprazole (Protonix Tab) 40 mg QAM PO Last administered on 01/09/17 09:11; Admin Dose 40 MG; Start 12/31/16 at 09:00 Docusate Sodium 100 mg 100 mg Q12 GTB Last administered on 01/09/17 09:11; Admin Dose 100 MG; Start 12/31/16 at 21:59 Cefepime HCl (Maxipime 1gm/50 ml (Pmx)) 50 ml @ 100 mls/hr Q24H IVPB Last administered on 01/08/17 19:59; Admin Dose 100 MLS/HR; Start 01/02/17 at 20:00 Insulin Aspart (Novolog Insulin Pen) NOVOLOG *MILD* ALGORI... Q6 SC Last administered on 01/09/17 17:51; Admin Dose 2 UNIT; Start 01/03/17 at 00:00 Hydralazine HCl (Apresoline) 25 mg Q8 GTB Last administered on 01/09/17 13:57 ; Admin Dose 25 MG; Start 01/02/17 at 22:45 Ondansetron HCl (Zofran Tab) 4 mg Q8 GTB Last administered on 01/09/17 13:58; Admin Dose 4 MG; Start 01/02/17 at 22:50 Acetaminophen (Tylenol Liquid) 650 mg Q6 PRN GTB PAIN AND OR ELEVATED TEMP; Start 01/02/17 at 23:00 Fluconazole (Diflucan) 100 mg DAILY PO Last administered on 01/09/17 09:11; Admin Dose 100 MG; Start 01/05/17 at 10:30 Polyethylene Glycol (Miralax) 17 gm DAILY PO Last administered on 01/09/17 09: 11; Admin Dose 17 GM; Start 01/06/17 at 09:00 Bisacodyl (Dulcolax Supp) 10 mg DAILY PRN [place] CONSTIPATION Last administered on 01/05/17 16:40; Admin Dose 10 MG; Start 01/05/17 at 15:30 Epoetin Taqueria (Epogen (Non Esrd/Non Oncology)) 10,000 units MoWeFr@17 SC Last administered on 01/08/17 18:00; Admin Dose 10,000 UNITS; Start 01/06/17 at 17: 00 JEFRY CERNA MD January 09, 2017 20:08
[2017-01-09 20:34] VITALS: BP 119/57; RESP 20
[2017-01-09] MEDS: TAMSULOSIN (SR) 0.4 MG CAP PO SCH (21:27)
[2017-01-09] MEDS: ATORVASTATIN 20 MG TAB PO SCH (21:27)
[2017-01-09] MEDS: CEFEPIME 1GM/50 ML (PMX) 50 ML IVPB SCH (21:27)
[2017-01-10] MEDS: ALBUTEROL/IPRATROPIUM (NEB) 3 ML AMP HHN SCH ×6 (00:09→20:15)
[2017-01-10] MEDS: INSULIN ASPART [NOVOLOG] 3 ML PEN SC SCH ×4 (01:06→17:37)
[2017-01-10 05:26] VITALS: BP 159/70; RESP 18
[2017-01-10] MEDS: ONDANSETRON 4 MG TAB GTB SCH ×3 (05:43→22:08)
[2017-01-10 06:37] LABS: POTASSIUM 4.9 mmol/L (3.5-5.1)
[2017-01-10 06:40] LABS: CALCIUM 8.4 mg/dl (8.4-10.2); CREATININE 2.99 mg/dl (0.61-1.24)
[2017-01-10 07:05] VITALS: BP 151/70; RESP 18
[2017-01-10] MEDS: FLUCONAZOLE 100 MG TAB PO SCH (08:11)
[2017-01-10] MEDS: DOCUSATE SODIUM 10 MG/ML (10ML CUP) GTB SCH ×2 (08:11→20:35)
[2017-01-10] MEDS: GABAPENTIN 300 MG CAP PO SCH (08:11)
[2017-01-10] MEDS: POLYETHYLENE GLYCOL 17 GM PACKET PO SCH (08:11)
[2017-01-10] MEDS: PANTOPRAZOLE (EC) 40 MG TAB PO SCH (08:11)
[2017-01-10] MEDS: MEGESTROL 40 MG TAB PO SCH ×2 (08:12→20:35)
[2017-01-10] MEDS: AMIODARONE 200 MG TAB PO SCH (08:12)
--- NOTE | 2017-01-10 11:43 | CONS ---
Date/Time of Note Date/Time of Note DATE: 01/10/17 TIME: 11:38 Assessment/Plan Assessment/Plan Chief Complaint/Hosp Course ID PROGRESS NOTE ABX DAY # Diflucan #6 (01/05) + Cefepime #9 (01/02) 24H INTERVAL SUMMARY * More alert rounding in am today instead of pm (as yesterday) * This morning she felt bladder pressure -> Per RN PVD revealed ~>400 w/ drainage tube kinked -> after tube repositioned & flushed output ~500mL. * MICROBIOLOGY: Urine culture + yeast * DIAGNOSTICS: Chest x-ray on admission revealed left lower lobe infiltrate. CT of the brain revealed no significant changes from previous findings. * INDWELLINGS: Flores, PEG. PIV PHYSICAL EXAMINATION: GENERAL: Thin appearing debilitated M, calm, looks comfortable HEENT: Unremarkable NECK: Trach-> midline CHEST: Equal chest rise bilaterally, without dyspnea on observation ABDOMEN: Soft, peg EXTREMITIES: Warm, SKIN: Warm, dry ID ASSESSMENT: 71 yo M w/PMHx CVA w/LE weakness, dementia, dysphagia admitted with: 1. Pneumonia, aspiration w/retained secretions 2. Failure to thrive with dysphagia, patient has PEG. 3. Anemia w/FeSo4 deficiency 4. Diabetes. 5. HTN 6 Afib 7. CKD 8. Neurogenic bladder with retention =>drainage tube kinked this am >>> after tube repositioned & flushed output ~500mL. 9. Sacral decub II, heel decub 10. Hx of hip surgery ABX ALLERGIES: NKDA CURRENT ABX: # Diflucan #6 (01/05) + Cefepime #9 (01/02) ID RECOMMENDATIONS: 1. Continue current ABX over the weekend. 2. ASP Precautions 3. ID team will follow . Problems: Consultation Date/Type/Reason Admit Date/Time December 29, 2016 at 04:03 Type of Consultation: ID Exam/Review of Systems Vital Signs Vitals Vital Signs Date Time Temp Pulse Resp B/P Pulse Ox O2 Delivery O2 Flow Rate FiO2 01/10/17 10:09 63 18 98 21 01/10/17 07:05 97.5 151/70 Intake and Output 01/09/17 01/09/17 01/10/17 15:00 23:00 07:00 Intake Total 660 ml 920 ml Output Total 1400 ml 1100 ml Balance -740 ml -180 ml Results Result Diagram: 01/09/17 0425 01/10/17 0450 Results 24 hrs Laboratory Tests Test 01/09/17 12:32 01/09/17 17:42 01/09/17 23:59 01/10/17 04:50 Bedside Glucose 187 198 142 Sodium Level 138 Potassium Level 4.9 Chloride Level 103 Carbon Dioxide Level 24 Anion Gap 16 Blood Urea Nitrogen 56 H Creatinine 2.99 H Glucose Level 144 Calcium Level 8.4 Test 01/10/17 05:41 Bedside Glucose 176 Medications Medications Current Medications Acetaminophen (Tylenol Tab) 650 mg Q6H PRN PO PAIN AND OR ELEVATED TEMP; Start 12/29/16 at 10:30; Status Future Hold Miscellaneous Information 1 ea NOTE XX ; Start 12/29/16 at 10:30 Glucose (Glutose) 15 gm Q15M PRN PO DECREASED GLUCOSE; Start 12/29/16 at 10:30 Glucose (Glutose) 22.5 gm Q15M PRN PO DECREASED GLUCOSE; Start 12/29/16 at 10:30 Dextrose (D50w Syringe) 25 ml Q15M PRN IV DECREASED GLUCOSE; Start 12/29/16 at 10:30 Dextrose (D50w Syringe) 50 ml Q15M PRN IV DECREASED GLUCOSE; Start 12/29/16 at 10:30 Glucagon (Glucagen) 1 mg Q15M PRN IM DECREASED GLUCOSE; Start 12/29/16 at 10:30 Glucose (Glutose) 15 gm Q15M PRN BUCCAL DECREASED GLUCOSE; Start 12/29/16 at 10: 30 Hydralazine HCl (Apresoline) 10 mg Q6H PRN IV sbp greater than 165 Last administered on 01/06/17 20:09; Admin Dose 10 MG; Start 12/29/16 at 10:30 Amiodarone HCl (Cordarone) 100 mg DAILY PO Last administered on 01/10/17 08:12 ; Admin Dose 100 MG; Start 12/29/16 at 12:00 Gabapentin (Neurontin) 300 mg DAILY PO Last administered on 01/10/17 08:11; Admin Dose 300 MG; Start 12/29/16 at 12:00 Megestrol Acetate (Megace) 40 mg BID PO Last administered on 01/10/17 08:12; Admin Dose 40 MG; Start 12/29/16 at 12:00 Tamsulosin HCl (Flomax) 0.4 mg HS PO Last administered on 01/09/17 21:27; Admin Dose 0.4 MG; Start 12/29/16 at 21:00 Atorvastatin Calcium (Lipitor) 20 mg DAILY@21 PO Last administered on 21:27; Admin Dose 20 MG; Start 12/29/16 at 21:00 Pantoprazole (Protonix Tab) 40 mg QAM PO Last administered on 01/10/17 08:11; Admin Dose 40 MG; Start 12/31/16 at 09:00 Docusate Sodium 100 mg 100 mg Q12 GTB Last administered on 01/10/17 08:11; Admin Dose 100 MG; Start 12/31/16 at 21:59 Cefepime HCl (Maxipime 1gm/50 ml (Pmx)) 50 ml @ 100 mls/hr Q24H IVPB Last administered on 01/09/17 21:27; Admin Dose 100 MLS/HR; Start 01/02/17 at 20:00 Insulin Aspart (Novolog Insulin Pen) NOVOLOG *MILD* ALGORI... Q6 SC Last administered on 01/10/17 05:45; Admin Dose 1 UNIT; Start 01/03/17 at 00:00 Hydralazine HCl (Apresoline) 25 mg Q8 GTB Last administered on 01/10/17 05:43 ; Admin Dose 25 MG; Start 01/02/17 at 22:45 Ondansetron HCl (Zofran Tab) 4 mg Q8 GTB Last administered on 01/10/17 05:43; Admin Dose 4 MG; Start 01/02/17 at 22:50 Acetaminophen (Tylenol Liquid) 650 mg Q6 PRN GTB PAIN AND OR ELEVATED TEMP Last administered on 01/09/17 21:27; Admin Dose 650 MG; Start 01/02/17 at 23:00 Fluconazole (Diflucan) 100 mg DAILY PO Last administered on 01/10/17 08:11; Admin Dose 100 MG; Start 01/05/17 at 10:30 Polyethylene Glycol (Miralax) 17 gm DAILY PO Last administered on 01/10/17 08: 11; Admin Dose 17 GM; Start 01/06/17 at 09:00 Bisacodyl (Dulcolax Supp) 10 mg DAILY PRN [place] CONSTIPATION Last administered on 01/05/17 16:40; Admin Dose 10 MG; Start 01/05/17 at 15:30 Epoetin Taqueria (Epogen (Non Esrd/Non Oncology)) 10,000 units MoWeFr@17 SC Last administered on 01/08/17 18:00; Admin Dose 10,000 UNITS; Start 01/06/17 at 17: 00 ANNE-MARIE PRAKASH NP January 10, 2017 11:43
--- NOTE | 2017-01-10 12:10 | PN ---
Date/Time of Note Date/Time of Note DATE: 01/10/17 TIME: 12:08 Assessment/Plan Lines/Catheters IV [facility] Type (from [facility] Urinary Cath still in place: Yes Assessment/Plan Assessment/Plan 1. Altered level of consciousness, most likely secondary to electrolyte imbalances secondary to metabolic encephalopathy. 2. Possible healthcare-acquired pneumonia. Continue patient on cefepime and vancomycin. 3. Systemic inflammatory response syndrome secondary to pneumonia. 4. Diastolic congestive heart failure. 5. Chronic kidney disease. 6. Hyperkalemia- Resolved. 7. Anemia, status post blood transfusion, continue to monitor hemoglobin and hematocrit. Started on Epogen. 8. Severe protein calorie malnutrition as evidenced by low albumin of 2.9. Dr. Cabral is following in gastroenterology consultation. Continue G-tube feeding. 9. History of cerebrovascular accident. 10. Hypertension. 11. History of paroxysmal atrial fibrillation. 12. Diabetes mellitus. Continue NovoLog per mild algorithm sliding scale. 13. Dysphagia, status post G-tube placement. With silent aspiration per video swallow eval, per speech therapy may have nectar thick by \ spoon only. 14. Generalized weakness - cont. physical therapy. no PT on Wednesday Further recommendations based on clinical course. Plan of care discussed with Dr. Patel. Subjective 24 Hr Interval Summary Free Text/Dictation nad, awake, seems comfortable, follows simple commands, hyperkalemia- resolved afebrile tolerates G-tube feeding well.dw staff Respiratory: no complaints Cardiovascular: no complaints Gastrointestinal: no complaints Exam/Review of Systems Vital Signs Vitals Vital Signs Date Time Temp Pulse Resp B/P Pulse Ox O2 Delivery O2 Flow Rate FiO2 01/10/17 10:09 63 18 98 21 01/10/17 07:05 97.5 151/70 Intake and Output 01/09/17 01/09/17 01/10/17 15:00 23:00 07:00 Intake Total 660 ml 920 ml Output Total 1400 ml 1100 ml Balance -740 ml -180 ml Results Result Diagram: 01/09/17 0425 01/10/17 0450 Results 24 hrs Laboratory Tests Test 01/09/17 12:32 01/09/17 17:42 01/09/17 23:59 01/10/17 04:50 Bedside Glucose 187 198 142 Sodium Level 138 Potassium Level 4.9 Chloride Level 103 Carbon Dioxide Level 24 Anion Gap 16 Blood Urea Nitrogen 56 H Creatinine 2.99 H Glucose Level 144 Calcium Level 8.4 Test 01/10/17 05:41 01/10/17 11:40 Bedside Glucose 176 159 Medications Medications Current Medications Acetaminophen (Tylenol Tab) 650 mg Q6H PRN PO PAIN AND OR ELEVATED TEMP; Start 12/29/16 at 10:30; Status Future Hold Miscellaneous Information 1 ea NOTE XX ; Start 12/29/16 at 10:30 Glucose (Glutose) 15 gm Q15M PRN PO DECREASED GLUCOSE; Start 12/29/16 at 10:30 Glucose (Glutose) 22.5 gm Q15M PRN PO DECREASED GLUCOSE; Start 12/29/16 at 10:30 Dextrose (D50w Syringe) 25 ml Q15M PRN IV DECREASED GLUCOSE; Start 12/29/16 at 10:30 Dextrose (D50w Syringe) 50 ml Q15M PRN IV DECREASED GLUCOSE; Start 12/29/16 at 10:30 Glucagon (Glucagen) 1 mg Q15M PRN IM DECREASED GLUCOSE; Start 12/29/16 at 10:30 Glucose (Glutose) 15 gm Q15M PRN BUCCAL DECREASED GLUCOSE; Start 12/29/16 at 10: 30 Hydralazine HCl (Apresoline) 10 mg Q6H PRN IV sbp greater than 165 Last administered on 01/06/17 20:09; Admin Dose 10 MG; Start 12/29/16 at 10:30 Amiodarone HCl (Cordarone) 100 mg DAILY PO Last administered on 01/10/17 08:12 ; Admin Dose 100 MG; Start 12/29/16 at 12:00 Gabapentin (Neurontin) 300 mg DAILY PO Last administered on 01/10/17 08:11; Admin Dose 300 MG; Start 12/29/16 at 12:00 Megestrol Acetate (Megace) 40 mg BID PO Last administered on 01/10/17 08:12; Admin Dose 40 MG; Start 12/29/16 at 12:00 Tamsulosin HCl (Flomax) 0.4 mg HS PO Last administered on 01/09/17 21:27; Admin Dose 0.4 MG; Start 12/29/16 at 21:00 Atorvastatin Calcium (Lipitor) 20 mg DAILY@ PO Last administered on 21:27; Admin Dose 20 MG; Start 12/29/16 at 21:00 Pantoprazole (Protonix Tab) 40 mg QAM PO Last administered on 01/10/17 08:11; Admin Dose 40 MG; Start 12/31/16 at 09:00 Docusate Sodium 100 mg 100 mg Q12 GTB Last administered on 01/10/17 08:11; Admin Dose 100 MG; Start 12/31/16 at 21:59 Cefepime HCl (Maxipime 1gm/50 ml (Pmx)) 50 ml @ 100 mls/hr Q24H IVPB Last administered on 01/09/17 21:27; Admin Dose 100 MLS/HR; Start 01/02/17 at 20:00 Insulin Aspart (Novolog Insulin Pen) NOVOLOG *MILD* ALGORI... Q6 SC Last administered on 01/10/17 12:04; Admin Dose 1 UNIT; Start 01/03/17 at 00:00 Hydralazine HCl (Apresoline) 25 mg Q8 GTB Last administered on 01/10/17 05:43 ; Admin Dose 25 MG; Start 01/02/17 at 22:45 Ondansetron HCl (Zofran Tab) 4 mg Q8 GTB Last administered on 01/10/17 05:43; Admin Dose 4 MG; Start 01/02/17 at 22:50 Acetaminophen (Tylenol Liquid) 650 mg Q6 PRN GTB PAIN AND OR ELEVATED TEMP Last administered on 01/09/17 21:27; Admin Dose 650 MG; Start 01/02/17 at 23:00 Fluconazole (Diflucan) 100 mg DAILY PO Last administered on 01/10/17 08:11; Admin Dose 100 MG; Start 01/05/17 at 10:30 Polyethylene Glycol (Miralax) 17 gm DAILY PO Last administered on 01/10/17 08: 11; Admin Dose 17 GM; Start 01/06/17 at 09:00 Bisacodyl (Dulcolax Supp) 10 mg DAILY PRN [place] CONSTIPATION Last administered on 01/05/17 16:40; Admin Dose 10 MG; Start 01/05/17 at 15:30 Epoetin Taqueria (Epogen (Non Esrd/Non Oncology)) 10,000 units MoWeFr@17 SC Last administered on 5/19/17at 18:00; Admin Dose 10,000 UNITS; Start 01/06/17 at 17: 00 MARCY WEINER January 10, 2017 12:10
[2017-01-10 14:29] VITALS: BP 134/64; PULSE 64
--- NOTE | 2017-01-10 16:29 | CONS ---
Date/Time of Note Date/Time of Note DATE: 01/10/17 TIME: 16:26 Assessment/Plan Assessment/Plan Chief Complaint/Hosp Course ESRD CAD S/P PEG LEUCOCYTOSIS PLAN RENAL STABLE Problems: Consultation Date/Type/Reason Admit Date/Time December 29, 2016 at 04:03 Type of Consultation: RENAL 24 HR Interval Summary Constitutional: no complaints Exam/Review of Systems Vital Signs Vitals Vital Signs Date Time Temp Pulse Resp B/P Pulse Ox O2 Delivery O2 Flow Rate FiO2 01/10/17 14:29 64 134/64 01/10/17 14:13 20 97 21 01/10/17 07:05 97.5 Intake and Output 01/09/17 01/09/17 01/10/17 15:00 23:00 07:00 Intake Total 660 ml 920 ml Output Total 1400 ml 1100 ml Balance -740 ml -180 ml Exam Neck: supple Respiratory: clear to auscultation Cardiovascular: regular rate and rhythm Gastrointestinal: other (PEG+), soft, No tender Results Result Diagram: 01/09/17 0425 01/10/17 0450 Results 24 hrs Laboratory Tests Test 01/09/17 17:42 01/09/17 23:59 01/10/17 04:50 01/10/17 05:41 Bedside Glucose 198 142 176 Sodium Level 138 Potassium Level 4.9 Chloride Level 103 Carbon Dioxide Level 24 Anion Gap 16 Blood Urea Nitrogen 56 H Creatinine 2.99 H Glucose Level 144 Calcium Level 8.4 Test 01/10/17 11:40 Bedside Glucose 159 Medications Medications Current Medications Acetaminophen (Tylenol Tab) 650 mg Q6H PRN PO PAIN AND OR ELEVATED TEMP; Start 12/29/16 at 10:30; Status Future Hold Miscellaneous Information 1 ea NOTE XX ; Start 12/29/16 at 10:30 Glucose (Glutose) 15 gm Q15M PRN PO DECREASED GLUCOSE; Start 12/29/16 at 10:30 Glucose (Glutose) 22.5 gm Q15M PRN PO DECREASED GLUCOSE; Start 12/29/16 at 10:30 Dextrose (D50w Syringe) 25 ml Q15M PRN IV DECREASED GLUCOSE; Start 12/29/16 at 10:30 Dextrose (D50w Syringe) 50 ml Q15M PRN IV DECREASED GLUCOSE; Start 12/29/16 at 10:30 Glucagon (Glucagen) 1 mg Q15M PRN IM DECREASED GLUCOSE; Start 12/29/16 at 10:30 Glucose (Glutose) 15 gm Q15M PRN BUCCAL DECREASED GLUCOSE; Start 12/29/16 at 10: 30 Hydralazine HCl (Apresoline) 10 mg Q6H PRN IV sbp greater than 165 Last administered on 01/06/17 20:09; Admin Dose 10 MG; Start 12/29/16 at 10:30 Amiodarone HCl (Cordarone) 100 mg DAILY PO Last administered on 01/10/17 08:12 ; Admin Dose 100 MG; Start 12/29/16 at 12:00 Gabapentin (Neurontin) 300 mg DAILY PO Last administered on 01/10/17 08:11; Admin Dose 300 MG; Start 12/29/16 at 12:00 Megestrol Acetate (Megace) 40 mg BID PO Last administered on 01/10/17 08:12; Admin Dose 40 MG; Start 12/29/16 at 12:00 Tamsulosin HCl (Flomax) 0.4 mg HS PO Last administered on 01/09/17 21:27; Admin Dose 0.4 MG; Start 12/29/16 at 21:00 Atorvastatin Calcium (Lipitor) 20 mg DAILY@21 PO Last administered on 21:27; Admin Dose 20 MG; Start 12/29/16 at 21:00 Pantoprazole (Protonix Tab) 40 mg QAM PO Last administered on 01/10/17 08:11; Admin Dose 40 MG; Start 12/31/16 at 09:00 Docusate Sodium 100 mg 100 mg Q12 GTB Last administered on 01/10/17 08:11; Admin Dose 100 MG; Start 12/31/16 at 21:59 Cefepime HCl (Maxipime 1gm/50 ml (Pmx)) 50 ml @ 100 mls/hr Q24H IVPB Last administered on 01/09/17 21:27; Admin Dose 100 MLS/HR; Start 01/02/17 at 20:00 Insulin Aspart (Novolog Insulin Pen) NOVOLOG *MILD* ALGORI... Q6 SC Last administered on 01/10/17 12:04; Admin Dose 1 UNIT; Start 01/03/17 at 00:00 Hydralazine HCl (Apresoline) 25 mg Q8 GTB Last administered on 01/10/17 14:28 ; Admin Dose 25 MG; Start 01/02/17 at 22:45 Ondansetron HCl (Zofran Tab) 4 mg Q8 GTB Last administered on 01/10/17 14:27; Admin Dose 4 MG; Start 01/02/17 at 22:50 Acetaminophen (Tylenol Liquid) 650 mg Q6 PRN GTB PAIN AND OR ELEVATED TEMP Last administered on 01/09/17 21:27; Admin Dose 650 MG; Start 01/02/17 at 23:00 Fluconazole (Diflucan) 100 mg DAILY PO Last administered on 01/10/17 08:11; Admin Dose 100 MG; Start 01/05/17 at 10:30 Polyethylene Glycol (Miralax) 17 gm DAILY PO Last administered on 01/10/17 08: 11; Admin Dose 17 GM; Start 01/06/17 at 09:00 Bisacodyl (Dulcolax Supp) 10 mg DAILY PRN [place] CONSTIPATION Last administered on 01/05/17 16:40; Admin Dose 10 MG; Start 01/05/17 at 15:30 Epoetin Taqueira (Epogen (Non Esrd/Non Oncology)) 10,000 units MoWeFr@17 SC Last administered on 01/08/17 18:00; Admin Dose 10,000 UNITS; Start 01/06/17 at 17: 00 ABBY RAMOS MD January 10, 2017 16:29
[2017-01-10] MEDS: CEFEPIME 1GM/50 ML (PMX) 50 ML IVPB SCH (19:50)
--- NOTE | 2017-01-10 20:24 | CONS ---
Date/Time of Note Date/Time of Note DATE: 01/10/17 TIME: 20:23 Assessment/Plan Assessment/Plan Additional Assessment/Plan Additional Assessment/Plan IMPRESSION: 1. Dysphagia. Status post PEG 2. Renal failure 3. History of hypertension. 4. Cerebrovascular accident. 5. Chronic kidney disease. 6. Cachexia and malnutrition. 7. Diabetes mellitus. 8. Paroxysmal atrial fibrillation. 9. Anemia most probably of chronic disease 10. Pneumonia Plan Increase feeding slowly No active GI bleeding Aspiration precaution Continue antibiotic as per ID Physical therapy evaluation and treatment Consultation Date/Type/Reason Admit Date/Time December 29, 2016 at 04:03 Type of Consultation: RENAL 24 HR Interval Summary Free Text/Dictation no gi bleeding Exam/Review of Systems Vital Signs Vitals Vital Signs Date Time Temp Pulse Resp B/P Pulse Ox O2 Delivery O2 Flow Rate FiO2 01/10/17 20:19 64 18 98 21 01/10/17 14:29 134/64 01/10/17 07:05 97.5 Intake and Output 01/09/17 01/09/17 01/10/17 15:00 23:00 07:00 Intake Total 660 ml 920 ml Output Total 1400 ml 1100 ml Balance -740 ml -180 ml Exam Constitutional: alert, oriented, well developed Psych: nl mood/affect, no complaints Head: atraumatic, normocephalic Eyes: EOMI, PERRL, nl conjunctiva, nl lids, nl sclera ENMT: nl external ears & nose, nl lips & teeth, nl nasal mucosa & septum Neck: non-tender, supple Respiratory: clear to auscultation, normal air movement Cardiovascular: nl pulses, regular rate and rhythm Gastrointestinal: nl liver, spleen, non-tender, soft Musculoskeletal: nl extremities to inspection, nl gait and stance Extremities: normal pulses Neurological: APPARATUS LINEMAN II-XII intact, nl mental status, nl speech, nl strength Skin: nl turgor, No rash or lesions Lymph: nl lymph nodes Results Result Diagram: 01/09/17 0425 01/10/17 0450 Results 24 hrs Laboratory Tests Test 01/09/17 23:59 01/10/17 04:50 01/10/17 05:41 01/10/17 11:40 Bedside Glucose 142 176 159 Sodium Level 138 Potassium Level 4.9 Chloride Level 103 Carbon Dioxide Level 24 Anion Gap 16 Blood Urea Nitrogen 56 H Creatinine 2.99 H Glucose Level 144 Calcium Level 8.4 Test 01/10/17 17:36 Bedside Glucose 157 Medications Medications Current Medications Acetaminophen (Tylenol Tab) 650 mg Q6H PRN PO PAIN AND OR ELEVATED TEMP; Start 12/29/16 at 10:30; Status Future Hold Miscellaneous Information 1 ea NOTE XX ; Start 12/29/16 at 10:30 Glucose (Glutose) 15 gm Q15M PRN PO DECREASED GLUCOSE; Start 12/29/16 at 10:30 Glucose (Glutose) 22.5 gm Q15M PRN PO DECREASED GLUCOSE; Start 12/29/16 at 10:30 Dextrose (D50w Syringe) 25 ml Q15M PRN IV DECREASED GLUCOSE; Start 12/29/16 at 10:30 Dextrose (D50w Syringe) 50 ml Q15M PRN IV DECREASED GLUCOSE; Start 12/29/16 at 10:30 Glucagon (Glucagen) 1 mg Q15M PRN IM DECREASED GLUCOSE; Start 12/29/16 at 10:30 Glucose (Glutose) 15 gm Q15M PRN BUCCAL DECREASED GLUCOSE; Start 12/29/16 at 10: 30 Hydralazine HCl (Apresoline) 10 mg Q6H PRN IV sbp greater than 165 Last administered on 01/06/17 20:09; Admin Dose 10 MG; Start 12/29/16 at 10:30 Amiodarone HCl (Cordarone) 100 mg DAILY PO Last administered on 01/10/17 08:12 ; Admin Dose 100 MG; Start 12/29/16 at 12:00 Gabapentin (Neurontin) 300 mg DAILY PO Last administered on 01/10/17 08:11; Admin Dose 300 MG; Start 12/29/16 at 12:00 Megestrol Acetate (Megace) 40 mg BID PO Last administered on 01/10/17 08:12; Admin Dose 40 MG; Start 12/29/16 at 12:00 Tamsulosin HCl (Flomax) 0.4 mg HS PO Last administered on 01/09/17 21:27; Admin Dose 0.4 MG; Start 12/29/16 at 21:00 Atorvastatin Calcium (Lipitor) 20 mg DAILY@21 PO Last administered on 21:27; Admin Dose 20 MG; Start 12/29/16 at 21:00 Pantoprazole (Protonix Tab) 40 mg QAM PO Last administered on 01/10/17 08:11; Admin Dose 40 MG; Start 12/31/16 at 09:00 Docusate Sodium 100 mg 100 mg Q12 GTB Last administered on 01/10/17 08:11; Admin Dose 100 MG; Start 12/31/16 at 21:59 Cefepime HCl (Maxipime 1gm/50 ml (Pmx)) 50 ml @ 100 mls/hr Q24H IVPB Last administered on 01/10/17 19:50; Admin Dose 100 MLS/HR; Start 01/02/17 at 20:00 Insulin Aspart (Novolog Insulin Pen) NOVOLOG *MILD* ALGORI... Q6 SC Last administered on 01/10/17 17:37; Admin Dose 1 UNIT; Start 01/03/17 at 00:00 Hydralazine HCl (Apresoline) 25 mg Q8 GTB Last administered on 01/10/17 14:28 ; Admin Dose 25 MG; Start 01/02/17 at 22:45 Ondansetron HCl (Zofran Tab) 4 mg Q8 GTB Last administered on 01/10/17 14:27; Admin Dose 4 MG; Start 01/02/17 at 22:50 Acetaminophen (Tylenol Liquid) 650 mg Q6 PRN GTB PAIN AND OR ELEVATED TEMP Last administered on 01/09/17 21:27; Admin Dose 650 MG; Start 01/02/17 at 23:00 Fluconazole (Diflucan) 100 mg DAILY PO Last administered on 01/10/17 08:11; Admin Dose 100 MG; Start 01/05/17 at 10:30 Polyethylene Glycol (Miralax) 17 gm DAILY PO Last administered on 01/10/17 08: 11; Admin Dose 17 GM; Start 01/06/17 at 09:00 Bisacodyl (Dulcolax Supp) 10 mg DAILY PRN [place] CONSTIPATION Last administered on 01/05/17 16:40; Admin Dose 10 MG; Start 01/05/17 at 15:30 Epoetin Taqueria (Epogen (Non Esrd/Non Oncology)) 10,000 units MoWeFr@17 SC Last administered on 01/08/17 18:00; Admin Dose 10,000 UNITS; Start 01/06/17 at 17: 00 JEFRY CERNA MD January 10, 2017 20:24
[2017-01-10] MEDS: ATORVASTATIN 20 MG TAB PO SCH (20:35)
[2017-01-10] MEDS: TAMSULOSIN (SR) 0.4 MG CAP PO SCH (20:35)
[2017-01-10 21:03] VITALS: BP 136/63; RESP 18
[2017-01-11] MEDS: ALBUTEROL/IPRATROPIUM (NEB) 3 ML AMP HHN SCH ×6 (01:33→20:07)
[2017-01-11] MEDS: ONDANSETRON 4 MG TAB GTB SCH ×3 (05:41→21:43)
[2017-01-11] MEDS: INSULIN ASPART [NOVOLOG] 3 ML PEN SC SCH ×4 (05:42→17:22)
[2017-01-11 06:15] LABS: ADD SCAN DIFF NO
[2017-01-11 06:25] LABS: BASOPHIL # 0.1 10^3/ul (0.0-0.1); BASOPHILS % 1.1 % (0.0-2.0); EOSINOPHILS # 1.1 10^3/ul (0.0-0.5); EOSINOPHILS % 8.8 % (0.0-7.0); HEMATOCRIT 27.2 % (42.0-52.0); HEMOGLOBIN 8.6 g/dl (14.0-18.0); LYMPHOCYTES # 2.5 10^3/ul (0.8-2.9); MEAN CORPUSCULAR HEMOGLOBIN 27.8 pg (29.0-33.0); MEAN CORPUSCULAR HGB CONC 31.6 g/dl (32.0-37.0); MEAN PLATELET VOLUME 10.8 fl (7.4-10.4); MONOCYTES % 8.4 % (0.0-11.0); NEUTROPHIL # 7.5 10^3/ul (1.6-7.5); NEUTROPHILS % 60.9 % (39.0-77.0); NUCLEATED RED BLOOD CELLS% 0.2 /100WBC (0.0-0.0); PLATELET COUNT 519 10^3/UL (140-415); RED BLOOD COUNT 3.09 10^6/ul (4.70-6.10); RED CELL DISTRIBUTION WIDTH 16.9 % (11.5-14.5); WHITE BLOOD COUNT 12.3 10^3/ul (4.8-10.8)
[2017-01-11 07:05] VITALS: BP 133/62; RESP 16
[2017-01-11 07:18] LABS: POTASSIUM 5.6 mmol/L (3.5-5.1)
[2017-01-11 07:20] LABS: CREATININE 3.09 mg/dl (0.61-1.24)
[2017-01-11 07:21] LABS: CALCIUM 8.4 mg/dl (8.4-10.2)
[2017-01-11] MEDS: POLYETHYLENE GLYCOL 17 GM PACKET PO SCH (08:39)
[2017-01-11] MEDS: MEGESTROL 40 MG TAB PO SCH ×2 (08:40→20:04)
[2017-01-11] MEDS: GABAPENTIN 300 MG CAP PO SCH (08:40)
[2017-01-11] MEDS: DOCUSATE SODIUM 10 MG/ML (10ML CUP) GTB SCH ×2 (08:40→20:04)
[2017-01-11] MEDS: FLUCONAZOLE 100 MG TAB PO SCH (08:40)
[2017-01-11] MEDS: PANTOPRAZOLE (EC) 40 MG TAB PO SCH (08:40)
[2017-01-11] MEDS: AMIODARONE 200 MG TAB PO SCH (08:40)
[2017-01-11] MEDS ORDERED: NA POLYST SULFON 15 GM/60 ML BTL GTB ONE (12:00)
--- NOTE | 2017-01-11 14:12 | CONS ---
Date/Time of Note Date/Time of Note DATE: 01/11/17 TIME: 14:11 Assessment/Plan Assessment/Plan Chief Complaint/Hosp Course SUBJECTIVE: Awake, looks comfortable, no fevers, nad MICROBIOLOGY: Urine culture + yeast DIAGNOSTICS: Chest x-ray on admission revealed left lower lobe infiltrate. CT of the brain revealed no significant changes from previous findings. INDWELLINGS: Flores, PEG. ANTIMICROBIALS: Cefepime, Diflucan. PHYSICAL EXAMINATION: GENERAL: This is a cachectic, fragile, elderly man who is in no distress. HEENT: Head atraumatic, normocephalic. Sclerae anicteric. Buccal mucosa dry. NECK: Supple, trachea midline. CHEST: Rise symmetrical. Breath sounds diminished to bases. HEART: S1, S2. ABDOMEN: Soft. Bowel tones present. ASSESSMENT: 1. Resolving pneumonia, possibly aspiration==> abx #10. 2. Failure to thrive with dysphagia, patient has PEG. 3. Anemia. 4. Dementia. 5. Diabetes. 6. History of cerebrovascular accident. PLAN: The patient remains stable. Will dc abx in am and observe DW staff Problems: Consultation Date/Type/Reason Admit Date/Time December 29, 2016 at 04:03 Type of Consultation: ID Exam/Review of Systems Vital Signs Vitals Vital Signs Date Time Temp Pulse Resp B/P Pulse Ox O2 Delivery O2 Flow Rate FiO2 01/11/17 07:05 97.8 71 16 133/62 100 01/11/17 05:39 21 Intake and Output 01/10/17 01/10/17 01/11/17 15:00 23:00 07:00 Intake Total 1220 ml 840 ml Output Total 1300 ml 800 ml Balance -80 ml 40 ml Results Result Diagram: 01/11/17 0526 01/11/17 0526 Results 24 hrs Laboratory Tests Test 01/10/17 17:36 01/11/17 00:09 01/11/17 05:26 01/11/17 05:37 Bedside Glucose 157 133 151 White Blood Count 12.3 H Red Blood Count 3.09 L Hemoglobin 8.6 L Hematocrit 27.2 L Mean Corpuscular Volume 88.0 Mean Corpuscular Hemoglobin 27.8 L Mean Corpuscular Hemoglobin Concent 31.6 L Red Cell Distribution Width 16.9 H Platelet Count 519 H Mean Platelet Volume 10.8 H Neutrophils % 60.9 Lymphocytes % 20.0 Monocytes % 8.4 Eosinophils % 8.8 H Basophils % 1.1 Nucleated Red Blood Cells % 0.2 H Neutrophils # 7.5 Lymphocytes # 2.5 Monocytes # 1.0 H Eosinophils # 1.1 H Basophils # 0.1 Nucleated Red Blood Cells # 0.0 Sodium Level 136 Potassium Level 5.6 H Chloride Level 105 Carbon Dioxide Level 24 Anion Gap 13 Blood Urea Nitrogen 64 H Creatinine 3.09 H Glucose Level 140 Calcium Level 8.4 Test 01/11/17 12:09 Bedside Glucose 179 Medications Medications Current Medications Acetaminophen (Tylenol Tab) 650 mg Q6H PRN PO PAIN AND OR ELEVATED TEMP; Start 12/29/16 at 10:30; Status Future Hold Miscellaneous Information 1 ea NOTE XX ; Start 12/29/16 at 10:30 Glucose (Glutose) 15 gm Q15M PRN PO DECREASED GLUCOSE; Start 12/29/16 at 10:30 Glucose (Glutose) 22.5 gm Q15M PRN PO DECREASED GLUCOSE; Start 12/29/16 at 10:30 Dextrose (D50w Syringe) 25 ml Q15M PRN IV DECREASED GLUCOSE; Start 12/29/16 at 10:30 Dextrose (D50w Syringe) 50 ml Q15M PRN IV DECREASED GLUCOSE; Start 12/29/16 at 10:30 Glucagon (Glucagen) 1 mg Q15M PRN IM DECREASED GLUCOSE; Start 12/29/16 at 10:30 Glucose (Glutose) 15 gm Q15M PRN BUCCAL DECREASED GLUCOSE; Start 12/29/16 at 10: 30 Hydralazine HCl (Apresoline) 10 mg Q6H PRN IV sbp greater than 165 Last administered on 01/06/17 20:09; Admin Dose 10 MG; Start 12/29/16 at 10:30 Amiodarone HCl (Cordarone) 100 mg DAILY PO Last administered on 01/11/17 08:40 ; Admin Dose 100 MG; Start 12/29/16 at 12:00 Gabapentin (Neurontin) 300 mg DAILY PO Last administered on 01/11/17 08:40; Admin Dose 300 MG; Start 12/29/16 at 12:00 Megestrol Acetate (Megace) 40 mg BID PO Last administered on 01/11/17 08:40; Admin Dose 40 MG; Start 12/29/16 at 12:00 Tamsulosin HCl (Flomax) 0.4 mg HS PO Last administered on 01/10/17 20:35; Admin Dose 0.4 MG; Start 12/29/16 at 21:00 Atorvastatin Calcium (Lipitor) 20 mg DAILY@21 PO Last administered on 20:35; Admin Dose 20 MG; Start 12/29/16 at 21:00 Pantoprazole (Protonix Tab) 40 mg QAM PO Last administered on 01/11/17 08:40; Admin Dose 40 MG; Start 12/31/16 at 09:00 Docusate Sodium 100 mg 100 mg Q12 GTB Last administered on 01/11/17 08:40; Admin Dose 100 MG; Start 12/31/16 at 21:59 Cefepime HCl (Maxipime 1gm/50 ml (Pmx)) 50 ml @ 100 mls/hr Q24H IVPB Last administered on 01/10/17 19:50; Admin Dose 100 MLS/HR; Start 01/02/17 at 20:00 Insulin Aspart (Novolog Insulin Pen) NOVOLOG *MILD* ALGORI... Q6 SC Last administered on 01/11/17 12:20; Admin Dose 1 UNIT; Start 01/03/17 at 00:00 Hydralazine HCl (Apresoline) 25 mg Q8 GTB Last administered on 01/11/17 05:41 ; Admin Dose 25 MG; Start 01/02/17 at 22:45 Ondansetron HCl (Zofran Tab) 4 mg Q8 GTB Last administered on 01/11/17 05:41; Admin Dose 4 MG; Start 01/02/17 at 22:50 Acetaminophen (Tylenol Liquid) 650 mg Q6 PRN GTB PAIN AND OR ELEVATED TEMP Last administered on 01/09/17 21:27; Admin Dose 650 MG; Start 01/02/17 at 23:00 Fluconazole (Diflucan) 100 mg DAILY PO Last administered on 01/11/17 08:40; Admin Dose 100 MG; Start 01/05/17 at 10:30 Polyethylene Glycol (Miralax) 17 gm DAILY PO Last administered on 01/11/17 08: 39; Admin Dose 17 GM; Start 01/06/17 at 09:00 Bisacodyl (Dulcolax Supp) 10 mg DAILY PRN [place] CONSTIPATION Last administered on 01/05/17 16:40; Admin Dose 10 MG; Start 01/05/17 at 15:30 Epoetin Taqueria (Epogen (Non Esrd/Non Oncology)) 10,000 units MoWeFr@17 SC Last administered on 01/08/17 18:00; Admin Dose 10,000 UNITS; Start 01/06/17 at 17: 00 KAYLA CASTREJON NP January 11, 2017 14:12
--- NOTE | 2017-01-11 14:44 | PN ---
DATE: 01/11/2017 INTERNAL MEDICINE PROGRESS NOTE SUBJECTIVE: Followup on patient who was admitted with metabolic encephalopathy. The patient is has chronic kidney disease and malnutrition and dysphagia. The patient currently tolerates the G-tube feeding well. The patient noted to have hyperkalemia with potassium of 5.6 today. Given Kayexalate and notified orthopedic designer on the case. The patient with underlying dementia. There is no nausea, vomiting reported per nurse. No fever. The patient remains hemodynamically stable. OBJECTIVE: VITAL SIGNS: Temperature is 98.7, pulse is 71, blood pressure is 133/62, respiratory rate 16, oxyge n saturation is 100% on room air. HEENT: BMP: Sodium is 136, potassium 5.6, chloride 105, carbon dioxide 24, anion gap 13, BUN 64, c reatinine 3.09, glucose 140. GENERAL: Well-developed, cachectic elderly gentleman, currently is awake, alert. HEENT: Head is atraumatic, normocephalic. CHEST: Lungs slightly diminished at the bases, clear bilaterally. HEART: Normal S1, S2. No murmurs. ABDOMEN: Flat, soft, nondistended. Bowel sounds present. G-tube with intact stoma. EXTREMITIES: No edema. ASSESSMENT AND PLAN: 1. Chronic kidney disease with hyperkalemia status post Kayexalate. Dr. Cheema is following in neph rology consultation. Continue to monitor BUN and creatinine. 2. Failure to thrive with dysphagia status post G-tube placement. Continue tube feeding, monitor r esidual. 3. Healthcare-acquired pneumonia versus aspiration. Dr. Garcia is following in infectious disease consultation. Continue antibiotics per ID. 4. Status post metabolic encephalopathy. 5. Anemia of chronic disease. The patient is continued on Epogen. 6. Severe protein-calorie malnutrition with albumin 2.9 on admission. 7. Diabetes mellitus. Continue NovoLog. 8. Diastolic congestive heart failure. Continue to monitor intake and output. 9. Hypertension. Continue hydralazine. 10. Hyperlipidemia. Continue statins. 11. Urinary retention with Flores catheter. 12. History of cerebrovascular accident. 13. Will continue Protonix for peptic ulcer disease prophylaxis and sequential compression device f or deep venous thrombosis prophylaxis. Further recommendations based on clinical course. Plan of care discussed with Dr. Javed. Dictated By: GEOVANY IBARRA HIDE SORTER for KE JAVED MD, SR/INOCENCIO Conf#: [id number] DID#: [id number]
[2017-01-11] MEDS: EPOETIN 10000 UNITS/ML (NON ESRD/NON ONCOLOGY) SC SCH (17:00)
--- NOTE | 2017-01-11 18:27 | CONS ---
Date/Time of Note Date/Time of Note DATE: 01/11/17 TIME: 18:27 Assessment/Plan Assessment/Plan Additional Assessment/Plan Additional Assessment/Plan Additional Assessment/Plan IMPRESSION: 1. Dysphagia. Status post PEG 2. Renal failure 3. History of hypertension. 4. Cerebrovascular accident. 5. Chronic kidney disease. 6. Cachexia and malnutrition. 7. Diabetes mellitus. 8. Paroxysmal atrial fibrillation. 9. Anemia most probably of chronic disease 10. Pneumonia Plan Increase feeding slowly No active GI bleeding Aspiration precaution Continue antibiotic as per ID Physical therapy evaluation and treatment Patient is stable and will sign off Consultation Date/Type/Reason Admit Date/Time December 29, 2016 at 04:03 Type of Consultation: ID 24 HR Interval Summary Constitutional: no complaints Exam/Review of Systems Vital Signs Vitals Vital Signs Date Time Temp Pulse Resp B/P Pulse Ox O2 Delivery O2 Flow Rate FiO2 01/11/17 17:58 62 16 97 21 01/11/17 07:05 97.8 133/62 Intake and Output 01/10/17 01/10/17 01/11/17 15:00 23:00 07:00 Intake Total 1220 ml 840 ml Output Total 1300 ml 800 ml Balance -80 ml 40 ml Exam Constitutional: alert, oriented, well developed Psych: nl mood/affect, no complaints Head: atraumatic, normocephalic Eyes: EOMI, PERRL, nl conjunctiva, nl lids, nl sclera ENMT: nl external ears & nose, nl lips & teeth, nl nasal mucosa & septum Neck: non-tender, supple Respiratory: clear to auscultation, normal air movement Cardiovascular: nl pulses, regular rate and rhythm Gastrointestinal: nl liver, spleen, non-tender, soft Musculoskeletal: nl extremities to inspection, nl gait and stance Extremities: normal pulses Neurological: LAST IRONER II-XII intact, nl mental status, nl speech, nl strength Skin: nl turgor, No rash or lesions Lymph: nl lymph nodes Results Result Diagram: 01/11/1752501/11/17525 Results 24 hrs Laboratory Tests Test 01/11/17 00:09 01/11/17 05:26 01/11/17 05:37 01/11/17 12:09 Bedside Glucose 133 151 179 White Blood Count 12.3 H Red Blood Count 3.09 L Hemoglobin 8.6 L Hematocrit 27.2 L Mean Corpuscular Volume 88.0 Mean Corpuscular Hemoglobin 27.8 L Mean Corpuscular Hemoglobin Concent 31.6 L Red Cell Distribution Width 16.9 H Platelet Count 519 H Mean Platelet Volume 10.8 H Neutrophils % 60.9 Lymphocytes % 20.0 Monocytes % 8.4 Eosinophils % 8.8 H Basophils % 1.1 Nucleated Red Blood Cells % 0.2 H Neutrophils # 7.5 Lymphocytes # 2.5 Monocytes # 1.0 H Eosinophils # 1.1 H Basophils # 0.1 Nucleated Red Blood Cells # 0.0 Sodium Level 136 Potassium Level 5.6 H Chloride Level 105 Carbon Dioxide Level 24 Anion Gap 13 Blood Urea Nitrogen 64 H Creatinine 3.09 H Glucose Level 140 Calcium Level 8.4 Test 01/11/17 17:17 Bedside Glucose 202 Medications Medications Current Medications Acetaminophen (Tylenol Tab) 650 mg Q6H PRN PO PAIN AND OR ELEVATED TEMP; Start 12/29/16 at 10:30; Status Future Hold Miscellaneous Information 1 ea NOTE XX ; Start 12/29/16 at 10:30 Glucose (Glutose) 15 gm Q15M PRN PO DECREASED GLUCOSE; Start 12/29/16 at 10:30 Glucose (Glutose) 22.5 gm Q15M PRN PO DECREASED GLUCOSE; Start 12/29/16 at 10:30 Dextrose (D50w Syringe) 25 ml Q15M PRN IV DECREASED GLUCOSE; Start 12/29/16 at 10:30 Dextrose (D50w Syringe) 50 ml Q15M PRN IV DECREASED GLUCOSE; Start 12/29/16 at 10:30 Glucagon (Glucagen) 1 mg Q15M PRN IM DECREASED GLUCOSE; Start 12/29/16 at 10:30 Glucose (Glutose) 15 gm Q15M PRN BUCCAL DECREASED GLUCOSE; Start 12/29/16 at 10: 30 Hydralazine HCl (Apresoline) 10 mg Q6H PRN IV sbp greater than 165 Last administered on 01/06/17 20:09; Admin Dose 10 MG; Start 12/29/16 at 10:30 Amiodarone HCl (Cordarone) 100 mg DAILY PO Last administered on 01/11/17 08:40 ; Admin Dose 100 MG; Start 12/29/16 at 12:00 Gabapentin (Neurontin) 300 mg DAILY PO Last administered on 01/11/17 08:40; Admin Dose 300 MG; Start 12/29/16 at 12:00 Megestrol Acetate (Megace) 40 mg BID PO Last administered on 01/11/17 08:40; Admin Dose 40 MG; Start 12/29/16 at 12:00 Tamsulosin HCl (Flomax) 0.4 mg HS PO Last administered on 01/10/17 20:35; Admin Dose 0.4 MG; Start 12/29/16 at 21:00 Atorvastatin Calcium (Lipitor) 20 mg DAILY@21 PO Last administered on 20:35; Admin Dose 20 MG; Start 12/29/16 at 21:00 Pantoprazole (Protonix Tab) 40 mg QAM PO Last administered on 01/11/17 08:40; Admin Dose 40 MG; Start 12/31/16 at 09:00 Docusate Sodium 100 mg 100 mg Q12 GTB Last administered on 01/11/17 08:40; Admin Dose 100 MG; Start 12/31/16 at 21:59 Cefepime HCl (Maxipime 1gm/50 ml (Pmx)) 50 ml @ 100 mls/hr Q24H IVPB Last administered on 01/10/17 19:50; Admin Dose 100 MLS/HR; Start 01/02/17 at 20:00 ; Stop 01/12/17 at 06:00 Insulin Aspart (Novolog Insulin Pen) NOVOLOG *MILD* ALGORI... Q6 SC Last administered on 01/11/17 17:22; Admin Dose 2 UNIT; Start 01/03/17 at 00:00 Hydralazine HCl (Apresoline) 25 mg Q8 GTB Last administered on 01/11/17 14:46 ; Admin Dose 25 MG; Start 01/02/17 at 22:45 Ondansetron HCl (Zofran Tab) 4 mg Q8 GTB Last administered on 01/11/17 14:46; Admin Dose 4 MG; Start 01/02/17 at 22:50 Acetaminophen (Tylenol Liquid) 650 mg Q6 PRN GTB PAIN AND OR ELEVATED TEMP Last administered on 01/09/17 21:27; Admin Dose 650 MG; Start 01/02/17 at 23:00 Fluconazole (Diflucan) 100 mg DAILY PO Last administered on 01/11/17 08:40; Admin Dose 100 MG; Start 01/05/17 at 10:30 Polyethylene Glycol (Miralax) 17 gm DAILY PO Last administered on 01/11/17 08: 39; Admin Dose 17 GM; Start 01/06/17 at 09:00 Bisacodyl (Dulcolax Supp) 10 mg DAILY PRN [place] CONSTIPATION Last administered on 01/05/17 16:40; Admin Dose 10 MG; Start 01/05/17 at 15:30 Epoetin Taqueria (Epogen (Non Esrd/Non Oncology)) 10,000 units MoWeFr@17 SC Last administered on 01/11/17 17:00; Admin Dose 10,000 UNITS; Start 01/06/17 at 17: 00 JEFRY CERNA MD January 11, 2017 18:27
[2017-01-11] MEDS: CEFEPIME 1GM/50 ML (PMX) 50 ML IVPB SCH (19:55)
[2017-01-11] MEDS: TAMSULOSIN (SR) 0.4 MG CAP PO SCH (20:04)
[2017-01-11] MEDS: ATORVASTATIN 20 MG TAB PO SCH (20:07)
[2017-01-11 21:58] VITALS: BP 128/60; RESP 16
--- NOTE | 2017-01-11 22:36 | PN ---
Date/Time of Note Date/Time of Note DATE: 01/11/17 TIME: 22:32 Assessment/Plan VTE Prophylaxis VTE Prophylaxis Intervention: other Lines/Catheters IV Catheter Type (from Nrs): Saline Lock Urinary Cath still in place: Yes Reason Cath still needed: other (indicate) Assessment/Plan Chief Complaint/Hosp Course ckd htn cad cva ashd hyperkalemia ashd plan kayexalate iv fluid Problems: Subjective 24 Hr Interval Summary Subjective hx not possible: other (awake no distress) Exam/Review of Systems Vital Signs Vitals Vital Signs Date Time Temp Pulse Resp B/P Pulse Ox O2 Delivery O2 Flow Rate FiO2 01/11/17 21:58 98.8 65 16 128/60 96 01/11/17 20:07 21 Intake and Output 01/10/17 01/10/17 01/11/17 15:00 23:00 07:00 Intake Total 1220 ml 840 ml Output Total 1300 ml 800 ml Balance -80 ml 40 ml Exam Neck: supple Respiratory: clear to auscultation Cardiovascular: regular rate and rhythm Gastrointestinal: bowel sounds (bs), other (peg+), soft, No tender Extremities: No edema Results Result Diagram: 01/11/1752501/11/17525 Results 24 hrs Laboratory Tests Test 01/11/17 00:09 01/11/17 05:26 01/11/17 05:37 01/11/17 12:09 Bedside Glucose 133 151 179 White Blood Count 12.3 H Red Blood Count 3.09 L Hemoglobin 8.6 L Hematocrit 27.2 L Mean Corpuscular Volume 88.0 Mean Corpuscular Hemoglobin 27.8 L Mean Corpuscular Hemoglobin Concent 31.6 L Red Cell Distribution Width 16.9 H Platelet Count 519 H Mean Platelet Volume 10.8 H Neutrophils % 60.9 Lymphocytes % 20.0 Monocytes % 8.4 Eosinophils % 8.8 H Basophils % 1.1 Nucleated Red Blood Cells % 0.2 H Neutrophils # 7.5 Lymphocytes # 2.5 Monocytes # 1.0 H Eosinophils # 1.1 H Basophils # 0.1 Nucleated Red Blood Cells # 0.0 Sodium Level 136 Potassium Level 5.6 H Chloride Level 105 Carbon Dioxide Level 24 Anion Gap 13 Blood Urea Nitrogen 64 H Creatinine 3.09 H Glucose Level 140 Calcium Level 8.4 Test 01/11/17 17:17 Bedside Glucose 202 Medications Medications Current Medications Acetaminophen (Tylenol Tab) 650 mg Q6H PRN PO PAIN AND OR ELEVATED TEMP; Start 12/29/16 at 10:30; Status Future Hold Miscellaneous Information 1 ea NOTE XX ; Start 12/29/16 at 10:30 Glucose (Glutose) 15 gm Q15M PRN PO DECREASED GLUCOSE; Start 12/29/16 at 10:30 Glucose (Glutose) 22.5 gm Q15M PRN PO DECREASED GLUCOSE; Start 12/29/16 at 10:30 Dextrose (D50w Syringe) 25 ml Q15M PRN IV DECREASED GLUCOSE; Start 12/29/16 at 10:30 Dextrose (D50w Syringe) 50 ml Q15M PRN IV DECREASED GLUCOSE; Start 12/29/16 at 10:30 Glucagon (Glucagen) 1 mg Q15M PRN IM DECREASED GLUCOSE; Start 12/29/16 at 10:30 Glucose (Glutose) 15 gm Q15M PRN BUCCAL DECREASED GLUCOSE; Start 12/29/16 at 10: 30 Hydralazine HCl (Apresoline) 10 mg Q6H PRN IV sbp greater than 165 Last administered on 01/06/17 20:09; Admin Dose 10 MG; Start 12/29/16 at 10:30 Amiodarone HCl (Cordarone) 100 mg DAILY PO Last administered on 01/11/17 08:40 ; Admin Dose 100 MG; Start 12/29/16 at 12:00 Gabapentin (Neurontin) 300 mg DAILY PO Last administered on 01/11/17 08:40; Admin Dose 300 MG; Start 12/29/16 at 12:00 Megestrol Acetate (Megace) 40 mg BID PO Last administered on 01/11/17 20:04; Admin Dose 40 MG; Start 12/29/16 at 12:00 Tamsulosin HCl (Flomax) 0.4 mg HS PO Last administered on 01/11/17 20:04; Admin Dose 0.4 MG; Start 12/29/16 at 21:00 Atorvastatin Calcium (Lipitor) 20 mg DAILY@21 PO Last administered on 20:07; Admin Dose 20 MG; Start 12/29/16 at 21:00 Pantoprazole (Protonix Tab) 40 mg QAM PO Last administered on 01/11/17 08:40; Admin Dose 40 MG; Start 12/31/16 at 09:00 Docusate Sodium 100 mg 100 mg Q12 GTB Last administered on 01/11/17 20:04; Admin Dose 100 MG; Start 12/31/16 at 21:59 Cefepime HCl (Maxipime 1gm/50 ml (Pmx)) 50 ml @ 100 mls/hr Q24H IVPB Last administered on 01/11/17 19:55; Admin Dose 100 MLS/HR; Start 01/02/17 at 20:00 ; Stop 01/12/17 at 06:00 Insulin Aspart (Novolog Insulin Pen) NOVOLOG *MILD* ALGORI... Q6 SC Last administered on 01/11/17 17:22; Admin Dose 2 UNIT; Start 01/03/17 at 00:00 Hydralazine HCl (Apresoline) 25 mg Q8 GTB Last administered on 01/11/17 21:43 ; Admin Dose 25 MG; Start 01/02/17 at 22:45 Ondansetron HCl (Zofran Tab) 4 mg Q8 GTB Last administered on 01/11/17 21:43; Admin Dose 4 MG; Start 01/02/17 at 22:50 Acetaminophen (Tylenol Liquid) 650 mg Q6 PRN GTB PAIN AND OR ELEVATED TEMP Last administered on 01/09/17 21:27; Admin Dose 650 MG; Start 01/02/17 at 23:00 Fluconazole (Diflucan) 100 mg DAILY PO Last administered on 01/11/17 08:40; Admin Dose 100 MG; Start 01/05/17 at 10:30 Polyethylene Glycol (Miralax) 17 gm DAILY PO Last administered on 01/11/17 08: 39; Admin Dose 17 GM; Start 01/06/17 at 09:00 Bisacodyl (Dulcolax Supp) 10 mg DAILY PRN [place] CONSTIPATION Last administered on 01/05/17 16:40; Admin Dose 10 MG; Start 01/05/17 at 15:30 Epoetin Taqueria (Epogen (Non Esrd/Non Oncology)) 10,000 units MoWeFr@17 SC Last administered on 01/11/17 17:00; Admin Dose 10,000 UNITS; Start 01/06/17 at 17: 00 ABBY RAMOS MD January 11, 2017 22:36
[2017-01-12] MEDS: SOD CHLORIDE 0.45% 1,000 ML IV SCH (00:04)
[2017-01-12] MEDS: INSULIN ASPART [NOVOLOG] 3 ML PEN SC SCH ×5 (00:20→18:14)
[2017-01-12] MEDS: ALBUTEROL/IPRATROPIUM (NEB) 3 ML AMP HHN SCH ×6 (00:44→21:06)
[2017-01-12 05:49] LABS: ADD SCAN DIFF NO
[2017-01-12 05:51] LABS: BASOPHIL # 0.1 10^3/ul (0.0-0.1); BASOPHILS % 1.1 % (0.0-2.0); EOSINOPHILS # 1.1 10^3/ul (0.0-0.5); EOSINOPHILS % 8.7 % (0.0-7.0); HEMATOCRIT 26.6 % (42.0-52.0); HEMOGLOBIN 8.6 g/dl (14.0-18.0); LYMPHOCYTES # 2.6 10^3/ul (0.8-2.9); LYMPHOCYTES % 21.5 % (15.0-51.0); MEAN CORPUSCULAR HEMOGLOBIN 28.5 pg (29.0-33.0); MEAN CORPUSCULAR HGB CONC 32.3 g/dl (32.0-37.0); MEAN CORPUSCULAR VOLUME 88.1 fl (82.0-101.0); MEAN PLATELET VOLUME 10.7 fl (7.4-10.4); MONOCYTES % 8.1 % (0.0-11.0); NEUTROPHIL # 7.3 10^3/ul (1.6-7.5); NEUTROPHILS % 59.1 % (39.0-77.0); PLATELET COUNT 554 10^3/UL (140-415); RED BLOOD COUNT 3.02 10^6/ul (4.70-6.10); RED CELL DISTRIBUTION WIDTH 16.9 % (11.5-14.5); WHITE BLOOD COUNT 12.3 10^3/ul (4.8-10.8)
[2017-01-12] MEDS: ONDANSETRON 4 MG TAB GTB SCH ×3 (06:01→22:08)
[2017-01-12 06:06] LABS: CALCIUM 8.3 mg/dl (8.4-10.2); CREATININE 3.17 mg/dl (0.61-1.24); POTASSIUM 4.7 mmol/L (3.5-5.1)
[2017-01-12 07:53] VITALS: BP 133/64; RESP 20
[2017-01-12] MEDS: POLYETHYLENE GLYCOL 17 GM PACKET PO SCH (08:27)
[2017-01-12] MEDS: PANTOPRAZOLE (EC) 40 MG TAB PO SCH (08:27)
[2017-01-12] MEDS: GABAPENTIN 300 MG CAP PO SCH (08:27)
[2017-01-12] MEDS: MEGESTROL 40 MG TAB PO SCH ×2 (08:27→21:21)
[2017-01-12] MEDS: FLUCONAZOLE 100 MG TAB PO SCH (08:27)
[2017-01-12] MEDS: DOCUSATE SODIUM 10 MG/ML (10ML CUP) GTB SCH ×2 (08:27→21:21)
[2017-01-12] MEDS: AMIODARONE 200 MG TAB PO SCH (08:28)
--- NOTE | 2017-01-12 12:29 | PN ---
Date/Time of Note Date/Time of Note DATE: 01/12/17 TIME: 12:26 Assessment/Plan VTE Prophylaxis VTE Prophylaxis Intervention: SCD's Lines/Catheters IV Catheter Type (from [facility]): Peripheral IV Urinary Cath still in place: Yes Reason Cath still needed: urinary retention Assessment/Plan Chief Complaint/Hosp Course Patient tolerates current G-tube feeding well, will increase G-tube feeding until the goal if patient tolerates, hyperkalemia resolved. ASSESSMENT AND PLAN: - Chronic kidney disease. Dr. Cheema is following in nephrology consultation. Continue to monitor BUN and creatinine. - Failure to thrive with dysphagia status post G-tube placement. Continue tube feeding, monitor residual. - Healthcare-acquired pneumonia versus aspiration. Dr. Garcia is following in infectious disease consultation. Continue antibiotics per ID. - Status post metabolic encephalopathy. - Anemia of chronic disease. The patient is continued on Epogen. - Severe protein-calorie malnutrition with albumin 2.9 on admission. - Diabetes mellitus. Continue NovoLog. - Diastolic congestive heart failure. Continue to monitor intake and output. - Hypertension. Continue hydralazine. - Hyperlipidemia. Continue statins. - Urinary retention with Flores catheter. - History of cerebrovascular accident. Continue Protonix for peptic ulcer disease prophylaxis and sequential compression device for deep venous thrombosis prophylaxis. Further recommendations based on clinical course. Plan of care discussed with Dr. Patel. Problems: Exam/Review of Systems Vital Signs Vitals Vital Signs Date Time Temp Pulse Resp B/P Pulse Ox O2 Delivery O2 Flow Rate FiO2 01/12/17 08:27 62 18 97 21 01/12/17 07:53 98.3 133/64 Intake and Output 01/11/17 01/11/17 01/12/17 15:00 23:00 07:00 Intake Total 1150 ml 820 ml Output Total 1000 ml 750 ml Balance 150 ml 70 ml Exam Constitutional: alert Psych: confusion Head: normocephalic Neck: supple Respiratory: clear to auscultation Cardiovascular: regular rate and rhythm Gastrointestinal: soft Genitourinary - Male: other (Flores catheter) Extremities: normal pulses Neurological: confused Skin: other (Stage II sacral) Results Result Diagram: 01/12/17 0420 01/12/17 0420 Results 24 hrs Laboratory Tests Test 01/11/17 17:17 01/12/17 00:14 01/12/17 04:20 01/12/17 05:59 Bedside Glucose 202 176 169 White Blood Count 12.3 H Red Blood Count 3.02 L Hemoglobin 8.6 L Hematocrit 26.6 L Mean Corpuscular Volume 88.1 Mean Corpuscular Hemoglobin 28.5 L Mean Corpuscular Hemoglobin Concent 32.3 Red Cell Distribution Width 16.9 H Platelet Count 554 H Mean Platelet Volume 10.7 H Neutrophils % 59.1 Lymphocytes % 21.5 Monocytes % 8.1 Eosinophils % 8.7 H Basophils % 1.1 Nucleated Red Blood Cells % 0.0 Neutrophils # 7.3 Lymphocytes # 2.6 Monocytes # 1.0 H Eosinophils # 1.1 H Basophils # 0.1 Nucleated Red Blood Cells # 0.0 Sodium Level 138 Potassium Level 4.7 Chloride Level 103 Carbon Dioxide Level 23 Anion Gap 17 H Blood Urea Nitrogen 63 H Creatinine 3.17 H Glucose Level 156 Calcium Level 8.3 L Test 01/12/17 07:58 01/12/17 12:19 Bedside Glucose 192 172 Medications Medications Current Medications Acetaminophen (Tylenol Tab) 650 mg Q6H PRN PO PAIN AND OR ELEVATED TEMP; Start 12/29/16 at 10:30; Status Future Hold Miscellaneous Information 1 ea NOTE XX ; Start 12/29/16 at 10:30 Glucose (Glutose) 15 gm Q15M PRN PO DECREASED GLUCOSE; Start 12/29/16 at 10:30 Glucose (Glutose) 22.5 gm Q15M PRN PO DECREASED GLUCOSE; Start 12/29/16 at 10:30 Dextrose (D50w Syringe) 25 ml Q15M PRN IV DECREASED GLUCOSE; Start 12/29/16 at 10:30 Dextrose (D50w Syringe) 50 ml Q15M PRN IV DECREASED GLUCOSE; Start 12/29/16 at 10:30 Glucagon (Glucagen) 1 mg Q15M PRN IM DECREASED GLUCOSE; Start 12/29/16 at 10:30 Glucose (Glutose) 15 gm Q15M PRN BUCCAL DECREASED GLUCOSE; Start 12/29/16 at 10: 30 Hydralazine HCl (Apresoline) 10 mg Q6H PRN IV sbp greater than 165 Last administered on 01/06/17t 20:09; Admin Dose 10 MG; Start 12/29/16 at 10:30 Amiodarone HCl (Cordarone) 100 mg DAILY PO Last administered on 01/12/17 08:28 ; Admin Dose 100 MG; Start 12/29/16 at 12:00 Gabapentin (Neurontin) 300 mg DAILY PO Last administered on 01/12/17 08:27; Admin Dose 300 MG; Start 12/29/16 at 12:00 Megestrol Acetate (Megace) 40 mg BID PO Last administered on 01/12/17 08:27; Admin Dose 40 MG; Start 12/29/16 at 12:00 Tamsulosin HCl (Flomax) 0.4 mg HS PO Last administered on 01/11/17 20:04; Admin Dose 0.4 MG; Start 12/29/16 at 21:00 Atorvastatin Calcium (Lipitor) 20 mg DAILY@21 PO Last administered on 20:07; Admin Dose 20 MG; Start 12/29/16 at 21:00 Pantoprazole (Protonix Tab) 40 mg QAM PO Last administered on 01/12/17 08:27; Admin Dose 40 MG; Start 12/31/16 at 09:00 Docusate Sodium (Colace Liquid Cup) 100 mg Q12 GTB Last administered on 08:27; Admin Dose 100 MG; Start 12/31/16 at 21:59 Insulin Aspart (Novolog Insulin Pen) NOVOLOG *MILD* ALGORI... Q6 SC Last administered on 01/12/17 08:34; Admin Dose 2 UNIT; Start 01/03/17 at 00:00 Hydralazine HCl (Apresoline) 25 mg Q8 GTB Last administered on 01/12/17 06:01 ; Admin Dose 25 MG; Start 01/02/17 at 22:45 Ondansetron HCl (Zofran Tab) 4 mg Q8 GTB Last administered on 01/12/17 06:01; Admin Dose 4 MG; Start 01/02/17 at 22:50 Acetaminophen (Tylenol Liquid) 650 mg Q6 PRN GTB PAIN AND OR ELEVATED TEMP Last administered on 01/09/17 21:27; Admin Dose 650 MG; Start 01/02/17 at 23:00 Fluconazole (Diflucan) 100 mg DAILY PO Last administered on 01/12/17 08:27; Admin Dose 100 MG; Start 01/05/17 at 10:30 Polyethylene Glycol (Miralax) 17 gm DAILY PO Last administered on 01/12/17 08: 27; Admin Dose 17 GM; Start 01/06/17 at 09:00 Bisacodyl (Dulcolax Supp) 10 mg DAILY PRN [place] CONSTIPATION Last administered on 01/05/17 16:40; Admin Dose 10 MG; Start 01/05/17 at 15:30 Epoetin [employer] [address]2674 units 10,000 units MoWeFr@17 SC Last administered on 17:00; Admin Dose 10,000 UNITS; Start 01/06/17 at 17:00 Sodium Chloride (1/2 NS) 1,000 ml @ 40 mls/hr Q24H IV Last administered on 00:04; Admin Dose 40 MLS/HR; Start 01/11/17 at 23:00 GEOVANY IBARRA January 12, 2017 12:29
--- NOTE | 2017-01-12 15:05 | CONS ---
Date/Time of Note Date/Time of Note DATE: 01/12/17 TIME: 15:04 Assessment/Plan Assessment/Plan Chief Complaint/Hosp Course SUBJECTIVE: No a events per report, looks comfortable, no fevers, nad INDWELLINGS: Flores, PEG. ANTIMICROBIALS: Diflucan. PHYSICAL EXAMINATION: GENERAL: This is a cachectic, fragile, elderly man who is in no distress. HEENT: Head atraumatic, normocephalic. Sclerae anicteric. Buccal mucosa dry. NECK: Supple, trachea midline. CHEST: Rise symmetrical. Breath sounds diminished to bases. HEART: S1, S2. ABDOMEN: Soft. Bowel tones present. ASSESSMENT: 1. S/p pneumonia, possibly aspiration==> completed abx. 2. Failure to thrive with dysphagia, patient has PEG. 3. Anemia. 4. Dementia. 5. Diabetes. 6. History of cerebrovascular accident. PLAN: The patient remains stable. Continue present care, aspiration precautions DW staff Problems: Consultation Date/Type/Reason Admit Date/Time December 29, 2016 at 04:03 Type of Consultation: ID Exam/Review of Systems Vital Signs Vitals Vital Signs Date Time Temp Pulse Resp B/P Pulse Ox O2 Delivery O2 Flow Rate FiO2 01/12/17 08:27 62 18 97 21 01/12/17 07:53 98.3 133/64 Intake and Output 01/11/17 01/11/17 01/12/17 15:00 23:00 07:00 Intake Total 1150 ml 820 ml Output Total 1000 ml 750 ml Balance 150 ml 70 ml Results Result Diagram: 01/12/17 0420 01/12/17 0420 Results 24 hrs Laboratory Tests Test 01/11/17 17:17 01/12/17 00:14 01/12/17 04:20 01/12/17 05:59 Bedside Glucose 202 176 169 White Blood Count 12.3 H Red Blood Count 3.02 L Hemoglobin 8.6 L Hematocrit 26.6 L Mean Corpuscular Volume 88.1 Mean Corpuscular Hemoglobin 28.5 L Mean Corpuscular Hemoglobin Concent 32.3 Red Cell Distribution Width 16.9 H Platelet Count 554 H Mean Platelet Volume 10.7 H Neutrophils % 59.1 Lymphocytes % 21.5 Monocytes % 8.1 Eosinophils % 8.7 H Basophils % 1.1 Nucleated Red Blood Cells % 0.0 Neutrophils # 7.3 Lymphocytes # 2.6 Monocytes # 1.0 H Eosinophils # 1.1 H Basophils # 0.1 Nucleated Red Blood Cells # 0.0 Sodium Level 138 Potassium Level 4.7 Chloride Level 103 Carbon Dioxide Level 23 Anion Gap 17 H Blood Urea Nitrogen 63 H Creatinine 3.17 H Glucose Level 156 Calcium Level 8.3 L Test 01/12/17 07:58 01/12/17 12:19 Bedside Glucose 192 172 Medications Medications Current Medications Acetaminophen (Tylenol Tab) 650 mg Q6H PRN PO PAIN AND OR ELEVATED TEMP; Start 12/29/16 at 10:30; Status Future Hold Miscellaneous Information 1 ea NOTE XX ; Start 12/29/16 at 10:30 Glucose (Glutose) 15 gm Q15M PRN PO DECREASED GLUCOSE; Start 12/29/16 at 10:30 Glucose (Glutose) 22.5 gm Q15M PRN PO DECREASED GLUCOSE; Start 12/29/16 at 10:30 Dextrose (D50w Syringe) 25 ml Q15M PRN IV DECREASED GLUCOSE; Start 12/29/16 at 10:30 Dextrose (D50w Syringe) 50 ml Q15M PRN IV DECREASED GLUCOSE; Start 12/29/16 at 10:30 Glucagon (Glucagen) 1 mg Q15M PRN IM DECREASED GLUCOSE; Start 12/29/16 at 10:30 Glucose (Glutose) 15 gm Q15M PRN BUCCAL DECREASED GLUCOSE; Start 12/29/16 at 10: 30 Hydralazine HCl (Apresoline) 10 mg Q6H PRN IV sbp greater than 165 Last administered on 01/06/17 20:09; Admin Dose 10 MG; Start 12/29/16 at 10:30 Amiodarone HCl (Cordarone) 100 mg DAILY PO Last administered on 01/12/17 08:28 ; Admin Dose 100 MG; Start 12/29/16 at 12:00 Gabapentin (Neurontin) 300 mg DAILY PO Last administered on 01/12/17 08:27; Admin Dose 300 MG; Start 12/29/16 at 12:00 Megestrol Acetate (Megace) 40 mg BID PO Last administered on 01/12/17 08:27; Admin Dose 40 MG; Start 12/29/16 at 12:00 Tamsulosin HCl (Flomax) 0.4 mg HS PO Last administered on 01/11/17 20:04; Admin Dose 0.4 MG; Start 12/29/16 at 21:00 Atorvastatin Calcium (Lipitor) 20 mg DAILY@21 PO Last administered on 20:07; Admin Dose 20 MG; Start 12/29/16 at 21:00 Pantoprazole (Protonix Tab) 40 mg QAM PO Last administered on 01/12/17 08:27; Admin Dose 40 MG; Start 12/31/16 at 09:00 Docusate Sodium (Colace Liquid Cup) 100 mg Q12 GTB Last administered on 08:27; Admin Dose 100 MG; Start 12/31/16 at 21:59 Insulin Aspart (Novolog Insulin Pen) NOVOLOG *MILD* ALGORI... Q6 SC Last administered on 01/12/17 12:26; Admin Dose 1 UNIT; Start 01/03/17 at 00:00 Hydralazine HCl (Apresoline) 25 mg Q8 GTB Last administered on 01/12/17 13:19 ; Admin Dose 25 MG; Start 01/02/17 at 22:45 Ondansetron HCl (Zofran Tab) 4 mg Q8 GTB Last administered on 01/12/17 13:18; Admin Dose 4 MG; Start 01/02/17 at 22:50 Acetaminophen (Tylenol Liquid) 650 mg Q6 PRN GTB PAIN AND OR ELEVATED TEMP Last administered on 01/09/17 21:27; Admin Dose 650 MG; Start 01/02/17 at 23:00 Fluconazole (Diflucan) 100 mg DAILY PO Last administered on 01/12/17 08:27; Admin Dose 100 MG; Start 01/05/17 at 10:30 Polyethylene Glycol (Miralax) 17 gm DAILY PO Last administered on 01/12/17 08: 27; Admin Dose 17 GM; Start 01/06/17 at 09:00 Bisacodyl (Dulcolax Supp) 10 mg DAILY PRN [place] CONSTIPATION Last administered on 01/05/17 16:40; Admin Dose 10 MG; Start 01/05/17 at 15:30 Epoetin [employer] 78993 units 10,000 units MoWeFr@17 SC Last administered on 17:00; Admin Dose 10,000 UNITS; Start 01/06/17 at 17:00 Sodium Chloride (1/2 NS) 1,000 ml @ 40 mls/hr Q24H IV Last administered on t 00:04; Admin Dose 40 MLS/HR; Start 01/11/17 at 23:00 KAYLA CASTREJON NP January 12, 2017 15:05
[2017-01-12 19:35] VITALS: BP 150/66; RESP 16
[2017-01-12] MEDS: TAMSULOSIN (SR) 0.4 MG CAP PO SCH (21:21)
[2017-01-12] MEDS: ATORVASTATIN 20 MG TAB PO SCH (21:21)
--- NOTE | 2017-01-12 23:53 | PN ---
Date/Time of Note Date/Time of Note DATE: 01/12/17 TIME: 23:52 Assessment/Plan VTE Prophylaxis VTE Prophylaxis Intervention: other Lines/Catheters IV Catheter Type (from Nrsg): Peripheral IV Urinary Cath still in place: Yes Reason Cath still needed: other (indicate) Assessment/Plan Chief Complaint/Hosp Course ckd htn cad cva ashd hyperkalemia ashd plan kayexalate PRN iv fluid CK BMP Problems: Subjective 24 Hr Interval Summary Gastrointestinal: no complaints Genitourinary: no complaints Exam/Review of Systems Vital Signs Vitals Vital Signs Date Time Temp Pulse Resp B/P Pulse Ox O2 Delivery O2 Flow Rate FiO2 01/12/17 21:15 68 16 97 21 01/12/17 19:35 98.6 150/66 Intake and Output 01/11/17 01/11/17 01/12/17 15:00 23:00 07:00 Intake Total 1150 ml 820 ml Output Total 1000 ml 750 ml Balance 150 ml 70 ml Exam Respiratory: clear to auscultation Cardiovascular: regular rate and rhythm Gastrointestinal: bowel sounds, soft Results Result Diagram: 01/12/17 0420 01/12/17 0420 Results 24 hrs Laboratory Tests Test 01/12/17 00:14 01/12/17 04:20 01/12/17 05:59 01/12/17 07:58 Bedside Glucose 176 169 192 White Blood Count 12.3 H Red Blood Count 3.02 L Hemoglobin 8.6 L Hematocrit 26.6 L Mean Corpuscular Volume 88.1 Mean Corpuscular Hemoglobin 28.5 L Mean Corpuscular Hemoglobin Concent 32.3 Red Cell Distribution Width 16.9 H Platelet Count 554 H Mean Platelet Volume 10.7 H Neutrophils % 59.1 Lymphocytes % 21.5 Monocytes % 8.1 Eosinophils % 8.7 H Basophils % 1.1 Nucleated Red Blood Cells % 0.0 Neutrophils # 7.3 Lymphocytes # 2.6 Monocytes # 1.0 H Eosinophils # 1.1 H Basophils # 0.1 Nucleated Red Blood Cells # 0.0 Sodium Level 138 Potassium Level 4.7 Chloride Level 103 Carbon Dioxide Level 23 Anion Gap 17 H Blood Urea Nitrogen 63 H Creatinine 3.17 H Glucose Level 156 Calcium Level 8.3 L Test 01/12/17 12:19 01/12/17 18:11 Bedside Glucose 172 167 Medications Medications Current Medications Acetaminophen (Tylenol Tab) 650 mg Q6H PRN PO PAIN AND OR ELEVATED TEMP; Start 12/29/16 at 10:30; Status Future Hold Miscellaneous Information 1 ea NOTE XX ; Start 12/29/16 at 10:30 Glucose (Glutose) 15 gm Q15M PRN PO DECREASED GLUCOSE; Start 12/29/16 at 10:30 Glucose (Glutose) 22.5 gm Q15M PRN PO DECREASED GLUCOSE; Start 12/29/16 at 10:30 Dextrose (D50w Syringe) 25 ml Q15M PRN IV DECREASED GLUCOSE; Start 12/29/16 at 10:30 Dextrose (D50w Syringe) 50 ml Q15M PRN IV DECREASED GLUCOSE; Start 12/29/16 at 10:30 Glucagon (Glucagen) 1 mg Q15M PRN IM DECREASED GLUCOSE; Start 12/29/16 at 10:30 Glucose (Glutose) 15 gm Q15M PRN BUCCAL DECREASED GLUCOSE; Start 12/29/16 at 10: 30 Hydralazine HCl (Apresoline) 10 mg Q6H PRN IV sbp greater than 165 Last administered on 01/06/17 20:09; Admin Dose 10 MG; Start 12/29/16 at 10:30 Amiodarone HCl (Cordarone) 100 mg DAILY PO Last administered on 01/12/17 08:28 ; Admin Dose 100 MG; Start 12/29/16 at 12:00 Gabapentin (Neurontin) 300 mg DAILY PO Last administered on 01/12/17 08:27; Admin Dose 300 MG; Start 12/29/16 at 12:00 Megestrol Acetate (Megace) 40 mg BID PO Last administered on 01/12/17 21:21; Admin Dose 40 MG; Start 12/29/16 at 12:00 Tamsulosin HCl (Flomax) 0.4 mg HS PO Last administered on 01/12/17 21:21; Admin Dose 0.4 MG; Start 12/29/16 at 21:00 Atorvastatin Calcium (Lipitor) 20 mg DAILY@21 PO Last administered on 21:21; Admin Dose 20 MG; Start 12/29/16 at 21:00 Pantoprazole (Protonix Tab) 40 mg QAM PO Last administered on 01/12/17 08:27; Admin Dose 40 MG; Start 12/31/16 at 09:00 Docusate Sodium (Colace Liquid Cup) 100 mg Q12 GTB Last administered on 21:21; Admin Dose 100 MG; Start 12/31/16 at 21:59 Insulin Aspart (Novolog Insulin Pen) NOVOLOG *MILD* ALGORI... Q6 SC Last administered on 01/12/17 18:14; Admin Dose 1 UNIT; Start 01/03/17 at 00:00 Hydralazine HCl (Apresoline) 25 mg Q8 GTB Last administered on 01/12/17 22:11 ; Admin Dose 25 MG; Start 01/02/17 at 22:45 Ondansetron HCl (Zofran Tab) 4 mg Q8 GTB Last administered on 01/12/17 22:08; Admin Dose 4 MG; Start 01/02/17 at 22:50 Acetaminophen (Tylenol Liquid) 650 mg Q6 PRN GTB PAIN AND OR ELEVATED TEMP Last administered on 01/09/17 21:27; Admin Dose 650 MG; Start 01/02/17 at 23:00 Fluconazole (Diflucan) 100 mg DAILY PO Last administered on 01/12/17 08:27; Admin Dose 100 MG; Start 01/05/17 at 10:30 Polyethylene Glycol (Miralax) 17 gm DAILY PO Last administered on 01/12/17 08: 27; Admin Dose 17 GM; Start 01/06/17 at 09:00 Bisacodyl (Dulcolax Supp) 10 mg DAILY PRN [place] CONSTIPATION Last administered on 01/05/17 16:40; Admin Dose 10 MG; Start 01/05/17 at 15:30 Epoetin [employer] 20298 units 10,000 units MoWeFr@17 SC Last administered on 17:00; Admin Dose 10,000 UNITS; Start 01/06/17 at 17:00 Sodium Chloride (1/2 NS) 1,000 ml @ 40 mls/hr Q24H IV Last administered on 00:04; Admin Dose 40 MLS/HR; Start 01/11/17 at 23:00 ABBY RAMOS MD January 12, 2017 23:53
[2017-01-13] MEDS: INSULIN ASPART [NOVOLOG] 3 ML PEN SC SCH ×5 (00:09→23:56)
[2017-01-13] MEDS: ALBUTEROL/IPRATROPIUM (NEB) 3 ML AMP HHN SCH ×3 (01:00→21:12)
[2017-01-13] MEDS: SOD CHLORIDE 0.45% 1,000 ML IV SCH ×2 (02:33→23:00)
[2017-01-13] MEDS: ONDANSETRON 4 MG TAB GTB SCH ×3 (05:28→21:00)
[2017-01-13 07:58] VITALS: BP 138/64; RESP 12
[2017-01-13] MEDS: FLUCONAZOLE 100 MG TAB PO SCH (08:55)
[2017-01-13] MEDS: GABAPENTIN 300 MG CAP PO SCH ×2 (08:55→20:59)
[2017-01-13] MEDS: PANTOPRAZOLE (EC) 40 MG TAB PO SCH (08:55)
[2017-01-13] MEDS: POLYETHYLENE GLYCOL 17 GM PACKET PO SCH (08:55)
[2017-01-13] MEDS: DOCUSATE SODIUM 10 MG/ML (10ML CUP) GTB SCH ×2 (08:55→20:58)
[2017-01-13] MEDS: MEGESTROL 40 MG TAB PO SCH ×2 (08:56→20:59)
[2017-01-13] MEDS: AMIODARONE 200 MG TAB PO SCH (08:57)
--- NOTE | 2017-01-13 13:48 | CONS ---
Date/Time of Note Date/Time of Note DATE: 01/13/17 TIME: 13:47 Assessment/Plan Assessment/Plan Chief Complaint/Hosp Course SUBJECTIVE: No events per report, awake, looks comfortable, no fevers INDWELLINGS: Flores, PEG. ANTIMICROBIALS: Diflucan. PHYSICAL EXAMINATION: GENERAL: This is a cachectic, fragile, elderly man who is in no distress. HEENT: Head atraumatic, normocephalic. Sclerae anicteric. Buccal mucosa dry. NECK: Supple, trachea midline. CHEST: Rise symmetrical. Breath sounds diminished to bases. HEART: S1, S2. ABDOMEN: Soft. Bowel tones present. ASSESSMENT: 1. S/p pneumonia, possibly aspiration==> completed abx. 2. Failure to thrive with dysphagia, patient has PEG. 3. Anemia. 4. Dementia. 5. Diabetes. 6. History of cerebrovascular accident. PLAN: The patient remains stable. Dc Diflucan. Continue present care, aspiration precautions DW staff Problems: Consultation Date/Type/Reason Admit Date/Time December 29, 2016 at 04:03 Type of Consultation: ID Exam/Review of Systems Vital Signs Vitals Vital Signs Date Time Temp Pulse Resp B/P Pulse Ox O2 Delivery O2 Flow Rate FiO2 01/13/17 07:58 98.0 62 12 138/64 98 01/12/17 21:15 21 Intake and Output 01/12/17 01/12/17 01/13/17 15:00 23:00 07:00 Intake Total 1440 ml 1320 ml Output Total 750 ml 1350 ml Balance 690 ml -30 ml Results Result Diagram: 01/12/17 0420 01/12/17 0420 Results 24 hrs Laboratory Tests Test 01/12/17 18:11 01/13/17 00:03 01/13/17 05:34 01/13/17 12:01 Bedside Glucose 167 189 173 203 Medications Medications Current Medications Acetaminophen (Tylenol Tab) 650 mg Q6H PRN PO PAIN AND OR ELEVATED TEMP; Start 12/29/16 at 10:30; Status Future Hold Miscellaneous Information 1 ea NOTE XX ; Start 12/29/16 at 10:30 Glucose (Glutose) 15 gm Q15M PRN PO DECREASED GLUCOSE; Start 12/29/16 at 10:30 Glucose (Glutose) 22.5 gm Q15M PRN PO DECREASED GLUCOSE; Start 12/29/16 at 10:30 Dextrose (D50w Syringe) 25 ml Q15M PRN IV DECREASED GLUCOSE; Start 12/29/16 at 10:30 Dextrose (D50w Syringe) 50 ml Q15M PRN IV DECREASED GLUCOSE; Start 12/29/16 at 10:30 Glucagon (Glucagen) 1 mg Q15M PRN IM DECREASED GLUCOSE; Start 12/29/16 at 10:30 Glucose (Glutose) 15 gm Q15M PRN BUCCAL DECREASED GLUCOSE; Start 12/29/16 at 10: 30 Hydralazine HCl (Apresoline) 10 mg Q6H PRN IV sbp greater than 165 Last administered on 01/06/17 20:09; Admin Dose 10 MG; Start 12/29/16 at 10:30 Amiodarone HCl (Cordarone) 100 mg DAILY PO Last administered on 01/13/17 08:57 ; Admin Dose 100 MG; Start 12/29/16 at 12:00 Gabapentin (Neurontin) 300 mg DAILY PO Last administered on 01/13/17 08:55; Admin Dose 300 MG; Start 12/29/16 at 12:00 Megestrol Acetate (Megace) 40 mg BID PO Last administered on 01/13/17 08:56; Admin Dose 40 MG; Start 12/29/16 at 12:00 Tamsulosin HCl (Flomax) 0.4 mg HS PO Last administered on 01/12/17 21:21; Admin Dose 0.4 MG; Start 12/29/16 at 21:00 Atorvastatin Calcium (Lipitor) 20 mg DAILY@21 PO Last administered on 21:21; Admin Dose 20 MG; Start 12/29/16 at 21:00 Pantoprazole (Protonix Tab) 40 mg QAM PO Last administered on 01/13/17 08:55; Admin Dose 40 MG; Start 12/31/16 at 09:00 Docusate Sodium (Colace Liquid Cup) 100 mg Q12 GTB Last administered on 08:55; Admin Dose 100 MG; Start 12/31/16 at 21:59 Insulin Aspart (Novolog Insulin Pen) NOVOLOG *MILD* ALGORI... Q6 SC Last administered on 01/13/17 12:32; Admin Dose 2 UNIT; Start 01/03/17 at 00:00 Hydralazine HCl (Apresoline) 25 mg Q8 GTB Last administered on 01/13/17 05:28 ; Admin Dose 25 MG; Start 01/02/17 at 22:45 Ondansetron HCl (Zofran Tab) 4 mg Q8 GTB Last administered on 01/13/17 05:28; Admin Dose 4 MG; Start 01/02/17 at 22:50 Acetaminophen (Tylenol Liquid) 650 mg Q6 PRN GTB PAIN AND OR ELEVATED TEMP Last administered on 01/09/17 21:27; Admin Dose 650 MG; Start 01/02/17 at 23:00 Fluconazole (Diflucan) 100 mg DAILY PO Last administered on 01/13/17 08:55; Admin Dose 100 MG; Start 01/05/17 at 10:30 Polyethylene Glycol (Miralax) 17 gm DAILY PO Last administered on 01/13/17 08: 55; Admin Dose 17 GM; Start 01/06/17 at 09:00 Bisacodyl (Dulcolax Supp) 10 mg DAILY PRN [place] CONSTIPATION Last administered on 01/05/17 16:40; Admin Dose 10 MG; Start 01/05/17 at 15:30 Epoetin [employer] 11044 units 10,000 units MoWeFr@17 SC Last administered on 17:00; Admin Dose 10,000 UNITS; Start 01/06/17 at 17:00 Sodium Chloride (1/2 NS) 1,000 ml @ 40 mls/hr Q24H IV Last administered on 02:33; Admin Dose 40 MLS/HR; Start 01/11/17 at 23:00 KAYLA CASTREJON NP January 13, 2017 13:48
[2017-01-13] MEDS: EPOETIN 10000 UNITS/ML (NON ESRD/NON ONCOLOGY) SC SCH (17:42)
--- NOTE | 2017-01-13 19:03 | PN ---
Date/Time of Note Date/Time of Note DATE: 01/13/17 TIME: 18:58 Assessment/Plan VTE Prophylaxis VTE Prophylaxis Intervention: SCD's Lines/Catheters IV Catheter Type (from [facility] Peripheral IV Urinary Cath still in place: Yes Reason Cath still needed: urinary retention Assessment/Plan Chief Complaint/Hosp Course Patient was slightly increased creatinine today, continue G-tube feeding, continue physical therapy. ASSESSMENT AND PLAN: - Chronic kidney disease. Dr. Cheema is following in nephrology consultation. Continue to monitor BUN and creatinine. - Failure to thrive with dysphagia status post G-tube placement. Continue tube feeding, monitor residual. - Healthcare-acquired pneumonia versus aspiration, status post treatment. Dr. Garcia is following in infectious disease consultation. - Status post metabolic encephalopathy. - Anemia of chronic disease. The patient is continued on Epogen. - Severe protein-calorie malnutrition with albumin 2.9 on admission. Continue G -tube feeding. - Diabetes mellitus. Continue NovoLog. - Diastolic congestive heart failure. Continue to monitor intake and output. - Hypertension. Continue hydralazine. - Hyperlipidemia. Continue statins. - Urinary retention with Flores catheter. - History of cerebrovascular accident. Continue Protonix for peptic ulcer disease prophylaxis and sequential compression device for deep venous thrombosis prophylaxis. Further recommendations based on clinical course. Plan of care discussed with Dr. Patel. Problems: Exam/Review of Systems Vital Signs Vitals Vital Signs Date Time Temp Pulse Resp B/P Pulse Ox O2 Delivery O2 Flow Rate FiO2 01/13/17 07:58 98.0 62 12 138/64 98 01/12/17 21:15 21 Intake and Output 01/12/17 01/12/17 01/13/17 15:00 23:00 07:00 Intake Total 1440 ml 1320 ml Output Total 750 ml 1350 ml Balance 690 ml -30 ml Exam Constitutional: alert Psych: confusion Head: normocephalic Neck: supple Respiratory: clear to auscultation Cardiovascular: regular rate and rhythm Gastrointestinal: soft Genitourinary - Male: other (Flores catheter) Extremities: normal pulses Neurological: confused Skin: other (Stage II sacral) Results Result Diagram: 01/12/17 0420 01/12/17 0420 Results 24 hrs Laboratory Tests Test 01/13/17 00:03 01/13/17 05:34 01/13/17 12:01 01/13/17 17:40 Bedside Glucose 189 173 203 170 Medications Medications Current Medications Acetaminophen (Tylenol Tab) 650 mg Q6H PRN PO PAIN AND OR ELEVATED TEMP; Start 12/29/16 at 10:30; Status Future Hold Miscellaneous Information 1 ea NOTE XX ; Start 12/29/16 at 10:30 Glucose (Glutose) 15 gm Q15M PRN PO DECREASED GLUCOSE; Start 12/29/16 at 10:30 Glucose (Glutose) 22.5 gm Q15M PRN PO DECREASED GLUCOSE; Start 12/29/16 at 10:30 Dextrose (D50w Syringe) 25 ml Q15M PRN IV DECREASED GLUCOSE; Start 12/29/16 at 10:30 Dextrose (D50w Syringe) 50 ml Q15M PRN IV DECREASED GLUCOSE; Start 12/29/16 at 10:30 Glucagon (Glucagen) 1 mg Q15M PRN IM DECREASED GLUCOSE; Start 12/29/16 at 10:30 Glucose (Glutose) 15 gm Q15M PRN BUCCAL DECREASED GLUCOSE; Start 12/29/16 at 10: 30 Hydralazine HCl (Apresoline) 10 mg Q6H PRN IV sbp greater than 165 Last administered on 01/06/17 20:09; Admin Dose 10 MG; Start 12/29/16 at 10:30 Amiodarone HCl (Cordarone) 100 mg DAILY PO Last administered on 01/13/17 08:57 ; Admin Dose 100 MG; Start 12/29/16 at 12:00 Gabapentin (Neurontin) 300 mg DAILY PO Last administered on 01/13/17 08:55; Admin Dose 300 MG; Start 12/29/16 at 12:00 Megestrol Acetate (Megace) 40 mg BID PO Last administered on 01/13/17 08:56; Admin Dose 40 MG; Start 12/29/16 at 12:00 Tamsulosin HCl (Flomax) 0.4 mg HS PO Last administered on 01/12/17 21:21; Admin Dose 0.4 MG; Start 12/29/16 at 21:00 Atorvastatin Calcium (Lipitor) 20 mg DAILY@21 PO Last administered on 21:21; Admin Dose 20 MG; Start 12/29/16 at 21:00 Pantoprazole (Protonix Tab) 40 mg QAM PO Last administered on 01/13/17 08:55; Admin Dose 40 MG; Start 12/31/16 at 09:00 Docusate Sodium (Colace Liquid Cup) 100 mg Q12 GTB Last administered on 08:55; Admin Dose 100 MG; Start 12/31/16 at 21:59 Insulin Aspart (Novolog Insulin Pen) NOVOLOG *MILD* ALGORI... Q6 SC Last administered on 01/13/17 17:43; Admin Dose 1 UNIT; Start 01/03/17 at 00:00 Hydralazine HCl (Apresoline) 25 mg Q8 GTB Last administered on 01/13/17 15:05 ; Admin Dose 25 MG; Start 01/02/17 at 22:45 Ondansetron HCl (Zofran Tab) 4 mg Q8 GTB Last administered on 01/13/17 15:05; Admin Dose 4 MG; Start 01/02/17 at 22:50 Acetaminophen (Tylenol Liquid) 650 mg Q6 PRN GTB PAIN AND OR ELEVATED TEMP Last administered on 01/09/17 21:27; Admin Dose 650 MG; Start 01/02/17 at 23:00 Polyethylene Glycol (Miralax) 17 gm DAILY PO Last administered on 01/13/17 08: 55; Admin Dose 17 GM; Start 01/06/17 at 09:00 Bisacodyl (Dulcolax Supp) 10 mg DAILY PRN [place] CONSTIPATION Last administered on 01/05/17 16:40; Admin Dose 10 MG; Start 01/05/17 at 15:30 Epoetin [employer] 74246 units 10,000 units MoWeFr@17 SC Last administered on 17:42; Admin Dose 10,000 UNITS; Start 01/06/17 at 17:00 Sodium Chloride (1/2 NS) 1,000 ml @ 40 mls/hr Q24H IV Last administered on 02:33; Admin Dose 40 MLS/HR; Start 01/11/17 at 23:00 GEOVANY IBARRA January 13, 2017 19:03
[2017-01-13 20:00] VITALS: BP 172/72; RESP 19
[2017-01-13] MEDS: ATORVASTATIN 20 MG TAB PO SCH (20:59)
[2017-01-13 21:00] VITALS: BP 144/66; RESP 19
[2017-01-13] MEDS: TAMSULOSIN (SR) 0.4 MG CAP PO SCH (21:04)
--- NOTE | 2017-01-13 23:57 | PN ---
Date/Time of Note Date/Time of Note DATE: 01/13/17 TIME: 23:56 Assessment/Plan VTE Prophylaxis VTE Prophylaxis Intervention: other Lines/Catheters IV Catheter Type (from Nrs): Peripheral IV Urinary Cath still in place: Yes Reason Cath still needed: other (indicate) Assessment/Plan Chief Complaint/Hosp Course ckd htn cad cva ashd hyperkalemia ashd plan kayexalate PRN iv fluid CK BMP Problems: Subjective 24 Hr Interval Summary Genitourinary: no complaints Musculoskeletal: no complaints Exam/Review of Systems Vital Signs Vitals Vital Signs Date Time Temp Pulse Resp B/P Pulse Ox O2 Delivery O2 Flow Rate FiO2 01/13/17 21:13 62 18 97 21 01/13/17 20:00 97.5 172/72 Intake and Output 01/12/17 01/12/17 01/13/17 15:00 23:00 07:00 Intake Total 1440 ml 1320 ml Output Total 750 ml 1350 ml Balance 690 ml -30 ml Exam Respiratory: clear to auscultation Cardiovascular: regular rate and rhythm Gastrointestinal: soft Musculoskeletal: nl extremities to inspection Results Result Diagram: 01/12/17 0420 01/12/17 0420 Results 24 hrs Laboratory Tests Test 01/13/17 00:03 01/13/17 05:34 01/13/17 12:01 01/13/17 17:40 Bedside Glucose 189 173 203 170 Medications Medications Current Medications Acetaminophen (Tylenol Tab) 650 mg Q6H PRN PO PAIN AND OR ELEVATED TEMP; Start 12/29/16 at 10:30; Status Future Hold Miscellaneous Information 1 ea NOTE XX ; Start 12/29/16 at 10:30 Glucose (Glutose) 15 gm Q15M PRN PO DECREASED GLUCOSE; Start 12/29/16 at 10:30 Glucose (Glutose) 22.5 gm Q15M PRN PO DECREASED GLUCOSE; Start 12/29/16 at 10:30 Dextrose (D50w Syringe) 25 ml Q15M PRN IV DECREASED GLUCOSE; Start 12/29/16 at 10:30 Dextrose (D50w Syringe) 50 ml Q15M PRN IV DECREASED GLUCOSE; Start 12/29/16 at 10:30 Glucagon (Glucagen) 1 mg Q15M PRN IM DECREASED GLUCOSE; Start 12/29/16 at 10:30 Glucose (Glutose) 15 gm Q15M PRN BUCCAL DECREASED GLUCOSE; Start 12/29/16 at 10: 30 Hydralazine HCl (Apresoline) 10 mg Q6H PRN IV sbp greater than 165 Last administered on 01/06/17 20:09; Admin Dose 10 MG; Start 12/29/16 at 10:30 Amiodarone HCl (Cordarone) 100 mg DAILY PO Last administered on 01/13/17 08:57 ; Admin Dose 100 MG; Start 12/29/16 at 12:00 Gabapentin (Neurontin) 300 mg DAILY PO Last administered on 01/13/17 20:59; Admin Dose 300 MG; Start 12/29/16 at 12:00 Megestrol Acetate (Megace) 40 mg BID PO Last administered on 01/13/17 20:59; Admin Dose 40 MG; Start 12/29/16 at 12:00 Tamsulosin HCl (Flomax) 0.4 mg HS PO Last administered on 01/13/17 21:04; Admin Dose 0.4 MG; Start 12/29/16 at 21:00 Atorvastatin Calcium (Lipitor) 20 mg DAILY@21 PO Last administered on 20:59; Admin Dose 20 MG; Start 12/29/16 at 21:00 Pantoprazole (Protonix Tab) 40 mg QAM PO Last administered on 01/13/17 08:55; Admin Dose 40 MG; Start 12/31/16 at 09:00 Docusate Sodium (Colace Liquid Cup) 100 mg Q12 GTB Last administered on 20:58; Admin Dose 100 MG; Start 12/31/16 at 21:59 Insulin Aspart (Novolog Insulin Pen) NOVOLOG *MILD* ALGORI... Q6 SC Last administered on 01/13/17 17:43; Admin Dose 1 UNIT; Start 01/03/17 at 00:00 Hydralazine HCl (Apresoline) 25 mg Q8 GTB Last administered on 01/13/17 20:59 ; Admin Dose 25 MG; Start 01/02/17 at 22:45 Ondansetron HCl (Zofran Tab) 4 mg Q8 GTB Last administered on 01/13/17 21:00; Admin Dose 4 MG; Start 01/02/17 at 22:50 Acetaminophen (Tylenol Liquid) 650 mg Q6 PRN GTB PAIN AND OR ELEVATED TEMP Last administered on 01/09/17 21:27; Admin Dose 650 MG; Start 01/02/17 at 23:00 Polyethylene Glycol (Miralax) 17 gm DAILY PO Last administered on 01/13/17 08: 55; Admin Dose 17 GM; Start 01/06/17 at 09:00 Bisacodyl (Dulcolax Supp) 10 mg DAILY PRN [place] CONSTIPATION Last administered on 01/05/17 16:40; Admin Dose 10 MG; Start 01/05/17 at 15:30 Epoetin [employer] 60465 units 10,000 units MoWeFr@17 SC Last administered on 17:42; Admin Dose 10,000 UNITS; Start 01/06/17 at 17:00 Sodium Chloride (1/2 NS) 1,000 ml @ 40 mls/hr Q24H IV Last administered on 02:33; Admin Dose 40 MLS/HR; Start 01/11/17 at 23:00 ABBY RAMOS MD January 13, 2017 23:57
[2017-01-14] MEDS: ALBUTEROL/IPRATROPIUM (NEB) 3 ML AMP HHN SCH ×6 (01:56→22:04)
[2017-01-14] MEDS: ONDANSETRON 4 MG TAB GTB SCH ×3 (05:12→21:50)
[2017-01-14] MEDS: INSULIN ASPART [NOVOLOG] 3 ML PEN SC SCH ×3 (05:22→17:55)
[2017-01-14] MEDS: SOD CHLORIDE 0.45% 1,000 ML IV SCH (05:26)
[2017-01-14 06:15] LABS: ADD SCAN DIFF NO
[2017-01-14 06:23] LABS: BASOPHIL # 0.2 10^3/ul (0.0-0.1); BASOPHILS % 1.3 % (0.0-2.0); EOSINOPHILS % 7.6 % (0.0-7.0); HEMATOCRIT 28.8 % (42.0-52.0); HEMOGLOBIN 9.2 g/dl (14.0-18.0); LYMPHOCYTES # 3.8 10^3/ul (0.8-2.9); LYMPHOCYTES % 27.6 % (15.0-51.0); MEAN CORPUSCULAR HEMOGLOBIN 28.3 pg (29.0-33.0); MEAN CORPUSCULAR HGB CONC 31.9 g/dl (32.0-37.0); MEAN CORPUSCULAR VOLUME 88.6 fl (82.0-101.0); MEAN PLATELET VOLUME 10.6 fl (7.4-10.4); NEUTROPHIL # 7.5 10^3/ul (1.6-7.5); NEUTROPHILS % 55.1 % (39.0-77.0); PLATELET COUNT 590 10^3/UL (140-415); RED BLOOD COUNT 3.25 10^6/ul (4.70-6.10); RED CELL DISTRIBUTION WIDTH 17.4 % (11.5-14.5); WHITE BLOOD COUNT 13.6 10^3/ul (4.8-10.8)
[2017-01-14 07:00] LABS: CALCIUM 8.6 mg/dl (8.4-10.2); CREATININE 2.63 mg/dl (0.61-1.24); POTASSIUM 4.2 mmol/L (3.5-5.1)
[2017-01-14] MEDS: DOCUSATE SODIUM 10 MG/ML (10ML CUP) GTB SCH ×2 (08:02→20:46)
[2017-01-14] MEDS: POLYETHYLENE GLYCOL 17 GM PACKET PO SCH (08:02)
[2017-01-14] MEDS: AMIODARONE 200 MG TAB PO SCH (08:03)
[2017-01-14] MEDS: MEGESTROL 40 MG TAB PO SCH ×2 (08:03→20:46)
[2017-01-14] MEDS: GABAPENTIN 300 MG CAP PO SCH (08:03)
[2017-01-14 08:04] VITALS: BP 146/62; RESP 19
[2017-01-14] MEDS: PANTOPRAZOLE (EC) 40 MG TAB PO SCH (08:05)
[2017-01-14] MEDS ORDERED: VITAMIN A & D 5 GM OINT PACKET TOP ONE (13:32)
--- NOTE | 2017-01-14 14:01 | CONS ---
Date/Time of Note Date/Time of Note DATE: 01/14/17 TIME: 14:01 Assessment/Plan Assessment/Plan Chief Complaint/Hosp Course SUBJECTIVE: No events, looks comfortable, no fevers INDWELLINGS: Flores, PEG. PHYSICAL EXAMINATION: GENERAL: This is a cachectic, fragile, elderly man who is in no distress. HEENT: Head atraumatic, normocephalic. Sclerae anicteric. Buccal mucosa dry. NECK: Supple, trachea midline. CHEST: Rise symmetrical. Breath sounds diminished to bases. HEART: S1, S2. ABDOMEN: Soft. Bowel tones present. ASSESSMENT: 1. S/p pneumonia, possibly aspiration==> completed abx. 2. Failure to thrive with dysphagia, patient has PEG. 3. Anemia. 4. Dementia. 5. Diabetes. 6. History of cerebrovascular accident. PLAN: The patient remains stable. Off abx. Continue present care, aspiration precautions DW staff Problems: Consultation Date/Type/Reason Admit Date/Time December 29, 2016 at 04:03 Type of Consultation: ID Exam/Review of Systems Vital Signs Vitals Vital Signs Date Time Temp Pulse Resp B/P Pulse Ox O2 Delivery O2 Flow Rate FiO2 01/14/17 13:08 61 18 97 21 01/14/17 08:04 97.7 146/62 Intake and Output 01/13/17 01/13/17 01/14/17 15:00 23:00 07:00 Intake Total 200 ml 900 ml Output Total 1200 ml 800 ml Balance -1000 ml 100 ml Results Result Diagram: 01/14/17 0525 01/14/17 0525 Results 24 hrs Laboratory Tests Test 01/13/17 17:40 01/13/17 23:54 01/14/17 05:19 01/14/17 05:25 Bedside Glucose 170 206 204 White Blood Count 13.6 H Red Blood Count 3.25 L Hemoglobin 9.2 L Hematocrit 28.8 L Mean Corpuscular Volume 88.6 Mean Corpuscular Hemoglobin 28.3 L Mean Corpuscular Hemoglobin Concent 31.9 L Red Cell Distribution Width 17.4 H Platelet Count 590 H Mean Platelet Volume 10.6 H Neutrophils % 55.1 Lymphocytes % 27.6 Monocytes % 7.0 Eosinophils % 7.6 H Basophils % 1.3 Nucleated Red Blood Cells % 0.0 Neutrophils # 7.5 Lymphocytes # 3.8 H Monocytes # 1.0 H Eosinophils # 1.0 H Basophils # 0.2 H Nucleated Red Blood Cells # 0.0 Sodium Level 135 Potassium Level 4.2 Chloride Level 107 Carbon Dioxide Level 22 Anion Gap 10 Blood Urea Nitrogen 53 H Creatinine 2.63 H Glucose Level 197 Calcium Level 8.6 Test 01/14/17 11:31 Bedside Glucose 234 H Medications Medications Current Medications Acetaminophen (Tylenol Tab) 650 mg Q6H PRN PO PAIN AND OR ELEVATED TEMP; Start 12/29/16 at 10:30; Status Future Hold Miscellaneous Information 1 ea NOTE XX ; Start 12/29/16 at 10:30 Glucose (Glutose) 15 gm Q15M PRN PO DECREASED GLUCOSE; Start 12/29/16 at 10:30 Glucose (Glutose) 22.5 gm Q15M PRN PO DECREASED GLUCOSE; Start 12/29/16 at 10:30 Dextrose (D50w Syringe) 25 ml Q15M PRN IV DECREASED GLUCOSE; Start 12/29/16 at 10:30 Dextrose (D50w Syringe) 50 ml Q15M PRN IV DECREASED GLUCOSE; Start 12/29/16 at 10:30 Glucagon (Glucagen) 1 mg Q15M PRN IM DECREASED GLUCOSE; Start 12/29/16 at 10:30 Glucose (Glutose) 15 gm Q15M PRN BUCCAL DECREASED GLUCOSE; Start 12/29/16 at 10: 30 Hydralazine HCl (Apresoline) 10 mg Q6H PRN IV sbp greater than 165 Last administered on 01/06/17 20:09; Admin Dose 10 MG; Start 12/29/16 at 10:30 Amiodarone HCl (Cordarone) 100 mg DAILY PO Last administered on 01/14/17 08:03 ; Admin Dose 100 MG; Start 12/29/16 at 12:00 Gabapentin (Neurontin) 300 mg DAILY PO Last administered on 01/14/17 08:03; Admin Dose 300 MG; Start 12/29/16 at 12:00 Megestrol Acetate (Megace) 40 mg BID PO Last administered on 01/14/17 08:03; Admin Dose 40 MG; Start 12/29/16 at 12:00 Tamsulosin HCl (Flomax) 0.4 mg HS PO Last administered on 01/13/17 21:04; Admin Dose 0.4 MG; Start 12/29/16 at 21:00 Atorvastatin Calcium (Lipitor) 20 mg DAILY@21 PO Last administered on 20:59; Admin Dose 20 MG; Start 12/29/16 at 21:00 Pantoprazole (Protonix Tab) 40 mg QAM PO Last administered on 01/14/17 08:05; Admin Dose 40 MG; Start 12/31/16 at 09:00 Docusate Sodium (Colace Liquid Cup) 100 mg Q12 GTB Last administered on 08:02; Admin Dose 100 MG; Start 12/31/16 at 21:59 Insulin Aspart (Novolog Insulin Pen) NOVOLOG *MILD* ALGORI... Q6 SC Last administered on 01/14/17 11:34; Admin Dose 3 UNIT; Start 01/03/17 at 00:00 Hydralazine HCl (Apresoline) 25 mg Q8 GTB Last administered on 01/14/17 13:23 ; Admin Dose 25 MG; Start 01/02/17 at 22:45 Ondansetron HCl (Zofran Tab) 4 mg Q8 GTB Last administered on 01/14/17 13:23; Admin Dose 4 MG; Start 01/02/17 at 22:50 Acetaminophen (Tylenol Liquid) 650 mg Q6 PRN GTB PAIN AND OR ELEVATED TEMP Last administered on 01/09/17 21:27; Admin Dose 650 MG; Start 01/02/17 at 23:00 Polyethylene Glycol (Miralax) 17 gm DAILY PO Last administered on 01/14/17 08: 02; Admin Dose 17 GM; Start 01/06/17 at 09:00 Bisacodyl (Dulcolax Supp) 10 mg DAILY PRN [place] CONSTIPATION Last administered on 01/05/17 16:40; Admin Dose 10 MG; Start 01/05/17 at 15:30 Epoetin [employer] 71765 units 10,000 units MoWeFr@17 SC Last administered on 17:42; Admin Dose 10,000 UNITS; Start 01/06/17 at 17:00 Sodium Chloride (1/2 NS) 1,000 ml @ 40 mls/hr Q24H IV Last administered on 05:26; Admin Dose 40 MLS/HR; Start 01/11/17 at 23:00 KAYLA CASTREJON NP January 14, 2017 14:01
--- NOTE | 2017-01-14 18:40 | CONS ---
Date/Time of Note Date/Time of Note DATE: 01/14/17 TIME: 18:39 Assessment/Plan Assessment/Plan Chief Complaint/Hosp Course ckd htn cad cva ashd hyperkalemia better ashd plan kayexalate PRN iv fluid CK BMP renal stable Problems: Consultation Date/Type/Reason Admit Date/Time December 29, 2016 at 04:03 Type of Consultation: renal 24 HR Interval Summary Constitutional: no complaints Exam/Review of Systems Vital Signs Vitals Vital Signs Date Time Temp Pulse Resp B/P Pulse Ox O2 Delivery O2 Flow Rate FiO2 01/14/17 16:26 67 18 95 21 01/14/17 08:04 97.7 146/62 Intake and Output 01/13/17 01/13/17 01/14/17 15:00 23:00 07:00 Intake Total 200 ml 900 ml Output Total 1200 ml 800 ml Balance -1000 ml 100 ml Exam Respiratory: diminished breath sounds Cardiovascular: regular rate and rhythm Gastrointestinal: soft Musculoskeletal: nl extremities to inspection Neurological: BEFORE SCHOOL II-XII intact Results Result Diagram: 01/14/17 0525 01/14/17 0525 Results 24 hrs Laboratory Tests Test 01/13/17 23:54 01/14/17 05:19 01/14/17 05:25 01/14/17 11:31 Bedside Glucose 206 204 234 H White Blood Count 13.6 H Red Blood Count 3.25 L Hemoglobin 9.2 L Hematocrit 28.8 L Mean Corpuscular Volume 88.6 Mean Corpuscular Hemoglobin 28.3 L Mean Corpuscular Hemoglobin Concent 31.9 L Red Cell Distribution Width 17.4 H Platelet Count 590 H Mean Platelet Volume 10.6 H Neutrophils % 55.1 Lymphocytes % 27.6 Monocytes % 7.0 Eosinophils % 7.6 H Basophils % 1.3 Nucleated Red Blood Cells % 0.0 Neutrophils # 7.5 Lymphocytes # 3.8 H Monocytes # 1.0 H Eosinophils # 1.0 H Basophils # 0.2 H Nucleated Red Blood Cells # 0.0 Sodium Level 135 Potassium Level 4.2 Chloride Level 107 Carbon Dioxide Level 22 Anion Gap 10 Blood Urea Nitrogen 53 H Creatinine 2.63 H Glucose Level 197 Calcium Level 8.6 Test 01/14/17 17:51 Bedside Glucose 201 Medications Medications Current Medications Acetaminophen (Tylenol Tab) 650 mg Q6H PRN PO PAIN AND OR ELEVATED TEMP; Start 12/29/16 at 10:30; Status Future Hold Miscellaneous Information 1 ea NOTE XX ; Start 12/29/16 at 10:30 Glucose (Glutose) 15 gm Q15M PRN PO DECREASED GLUCOSE; Start 12/29/16 at 10:30 Glucose (Glutose) 22.5 gm Q15M PRN PO DECREASED GLUCOSE; Start 12/29/16 at 10:30 Dextrose (D50w Syringe) 25 ml Q15M PRN IV DECREASED GLUCOSE; Start 12/29/16 at 10:30 Dextrose (D50w Syringe) 50 ml Q15M PRN IV DECREASED GLUCOSE; Start 12/29/16 at 10:30 Glucagon (Glucagen) 1 mg Q15M PRN IM DECREASED GLUCOSE; Start 12/29/16 at 10:30 Glucose (Glutose) 15 gm Q15M PRN BUCCAL DECREASED GLUCOSE; Start 12/29/16 at 10: 30 Hydralazine HCl (Apresoline) 10 mg Q6H PRN IV sbp greater than 165 Last administered on 01/06/17 20:09; Admin Dose 10 MG; Start 12/29/16 at 10:30 Amiodarone HCl (Cordarone) 100 mg DAILY PO Last administered on 01/14/17 08:03 ; Admin Dose 100 MG; Start 12/29/16 at 12:00 Gabapentin (Neurontin) 300 mg DAILY PO Last administered on 01/14/17 08:03; Admin Dose 300 MG; Start 12/29/16 at 12:00 Megestrol Acetate (Megace) 40 mg BID PO Last administered on 01/14/17 08:03; Admin Dose 40 MG; Start 12/29/16 at 12:00 Tamsulosin HCl (Flomax) 0.4 mg HS PO Last administered on 01/13/17 21:04; Admin Dose 0.4 MG; Start 12/29/16 at 21:00 Atorvastatin Calcium (Lipitor) 20 mg DAILY@21 PO Last administered on 20:59; Admin Dose 20 MG; Start 12/29/16 at 21:00 Pantoprazole (Protonix Tab) 40 mg QAM PO Last administered on 01/14/17 08:05; Admin Dose 40 MG; Start 12/31/16 at 09:00 Docusate Sodium (Colace Liquid Cup) 100 mg Q12 GTB Last administered on 08:02; Admin Dose 100 MG; Start 12/31/16 at 21:59 Insulin Aspart (Novolog Insulin Pen) NOVOLOG *MILD* ALGORI... Q6 SC Last administered on 01/14/17 17:55; Admin Dose 2 UNIT; Start 01/03/17 at 00:00 Hydralazine HCl (Apresoline) 25 mg Q8 GTB Last administered on 01/14/17 13:23 ; Admin Dose 25 MG; Start 01/02/17 at 22:45 Ondansetron HCl (Zofran Tab) 4 mg Q8 GTB Last administered on 01/14/17 13:23; Admin Dose 4 MG; Start 01/02/17 at 22:50 Acetaminophen (Tylenol Liquid) 650 mg Q6 PRN GTB PAIN AND OR ELEVATED TEMP Last administered on 01/09/17 21:27; Admin Dose 650 MG; Start 01/02/17 at 23:00 Polyethylene Glycol (Miralax) 17 gm DAILY PO Last administered on 01/14/17 08: 02; Admin Dose 17 GM; Start 01/06/17 at 09:00 Bisacodyl (Dulcolax Supp) 10 mg DAILY PRN [place] CONSTIPATION Last administered on 01/05/17 16:40; Admin Dose 10 MG; Start 01/05/17 at 15:30 Epoetin [employer] 71751 units 10,000 units MoWeFr@17 SC Last administered on 17:42; Admin Dose 10,000 UNITS; Start 01/06/17 at 17:00 Sodium Chloride (1/2 NS) 1,000 ml @ 40 mls/hr Q24H IV Last administered on 05:26; Admin Dose 40 MLS/HR; Start 01/11/17 at 23:00 ABBY RAMOS MD January 14, 2017 18:40
--- NOTE | 2017-01-14 19:42 | PN ---
Date/Time of Note Date/Time of Note DATE: 01/14/17 TIME: 19:39 Assessment/Plan VTE Prophylaxis VTE Prophylaxis Intervention: other Lines/Catheters IV [facility] Type ([facility] Peripheral IV Urinary Cath still in place: Yes Reason Cath still needed: urinary retention Assessment/Plan Assessment/Plan 1. Hepatic encephalopathy. Continue patient on lactulose, monitor ammonia level. 2. Liver cirrhosis. Dr. Mills is following in gastroenterology consultation. 3. Thrombocytopenia most likely secondary to liver cirrhosis. 4. Chronic congestive heart failure. Continue diuretics. 5. Hypertension. Patient is currently normotensive. 6. Dementia. 7. History of asthma. 8. Depression. 9. History of cerebrovascular accident. 10. Hypokalemia, will replace potassium. Continue Protonix for peptic ulcer disease prophylaxis and sequential compression devices for deep venous thrombosis prophylaxis. Further recommendations based on clinical course. Plan of care discussed with Dr. Patel. Subjective 24 Hr Interval Summary Free Text/Dictation BS elevated, on GT feedings- tolerating well, dw staff Exam/Review of Systems Vital Signs Vitals Vital Signs Date Time Temp Pulse Resp B/P Pulse Ox O2 Delivery O2 Flow Rate FiO2 01/14/17 16:26 67 18 95 21 01/14/17 08:04 97.7 146/62 Intake and Output 01/13/17 01/13/17 01/14/17 15:00 23:00 07:00 Intake Total 200 ml 900 ml Output Total 1200 ml 800 ml Balance -1000 ml 100 ml Exam Constitutional: alert, well developed Psych: nl mood/affect Head: normocephalic Eyes: EOMI, nl sclera Neck: non-tender, supple Respiratory: diminished breath sounds, normal air movement Cardiovascular: nl pulses, regular rate and rhythm Gastrointestinal: non-tender, soft Musculoskeletal: muscle weakness Extremities: normal pulses Neurological: nl mental status, nl speech Lymph: nontender Results Result Diagram: 01/14/1725 01/14/17 0525 Results 24 hrs Laboratory Tests Test 01/13/17 23:54 01/14/17 05:19 01/14/17 05:25 01/14/17 11:31 Bedside Glucose 206 204 234 H White Blood Count 13.6 H Red Blood Count 3.25 L Hemoglobin 9.2 L Hematocrit 28.8 L Mean Corpuscular Volume 88.6 Mean Corpuscular Hemoglobin 28.3 L Mean Corpuscular Hemoglobin Concent 31.9 L Red Cell Distribution Width 17.4 H Platelet Count 590 H Mean Platelet Volume 10.6 H Neutrophils % 55.1 Lymphocytes % 27.6 Monocytes % 7.0 Eosinophils % 7.6 H Basophils % 1.3 Nucleated Red Blood Cells % 0.0 Neutrophils # 7.5 Lymphocytes # 3.8 H Monocytes # 1.0 H Eosinophils # 1.0 H Basophils # 0.2 H Nucleated Red Blood Cells # 0.0 Sodium Level 135 Potassium Level 4.2 Chloride Level 107 Carbon Dioxide Level 22 Anion Gap 10 Blood Urea Nitrogen 53 H Creatinine 2.63 H Glucose Level 197 Calcium Level 8.6 Test 01/14/17 17:51 Bedside Glucose 201 Medications Medications Current Medications Acetaminophen (Tylenol Tab) 650 mg Q6H PRN PO PAIN AND OR ELEVATED TEMP; Start 12/29/16 at 10:30; Status Future Hold Miscellaneous Information 1 ea NOTE XX ; Start 12/29/16 at 10:30 Glucose (Glutose) 15 gm Q15M PRN PO DECREASED GLUCOSE; Start 12/29/16 at 10:30 Glucose (Glutose) 22.5 gm Q15M PRN PO DECREASED GLUCOSE; Start 12/29/16 at 10:30 Dextrose (D50w Syringe) 25 ml Q15M PRN IV DECREASED GLUCOSE; Start 12/29/16 at 10:30 Dextrose (D50w Syringe) 50 ml Q15M PRN IV DECREASED GLUCOSE; Start 12/29/16 at 10:30 Glucagon (Glucagen) 1 mg Q15M PRN IM DECREASED GLUCOSE; Start 12/29/16 at 10:30 Glucose (Glutose) 15 gm Q15M PRN BUCCAL DECREASED GLUCOSE; Start 12/29/16 at 10: 30 Hydralazine HCl (Apresoline) 10 mg Q6H PRN IV sbp greater than 165 Last administered on 01/06/17 20:09; Admin Dose 10 MG; Start 12/29/16 at 10:30 Amiodarone HCl (Cordarone) 100 mg DAILY PO Last administered on 01/14/17 08:03 ; Admin Dose 100 MG; Start 12/29/16 at 12:00 Gabapentin (Neurontin) 300 mg DAILY PO Last administered on 01/14/17 08:03; Admin Dose 300 MG; Start 12/29/16 at 12:00 Megestrol Acetate (Megace) 40 mg BID PO Last administered on 01/14/17 08:03; Admin Dose 40 MG; Start 12/29/16 at 12:00 Tamsulosin HCl (Flomax) 0.4 mg HS PO Last administered on 01/13/17 21:04; Admin Dose 0.4 MG; Start 12/29/16 at 21:00 Atorvastatin Calcium (Lipitor) 20 mg DAILY@21 PO Last administered on 20:59; Admin Dose 20 MG; Start 12/29/16 at 21:00 Pantoprazole (Protonix Tab) 40 mg QAM PO Last administered on 01/14/17 08:05; Admin Dose 40 MG; Start 12/31/16 at 09:00 Docusate Sodium (Colace Liquid Cup) 100 mg Q12 GTB Last administered on 08:02; Admin Dose 100 MG; Start 12/31/16 at 21:59 Insulin Aspart (Novolog Insulin Pen) NOVOLOG *MILD* ALGORI... Q6 SC Last administered on 01/14/17 17:55; Admin Dose 2 UNIT; Start 01/03/17 at 00:00 Hydralazine HCl (Apresoline) 25 mg Q8 GTB Last administered on 01/14/17 13:23 ; Admin Dose 25 MG; Start 01/02/17 at 22:45 Ondansetron HCl (Zofran Tab) 4 mg Q8 GTB Last administered on 01/14/17 13:23; Admin Dose 4 MG; Start 01/02/17 at 22:50 Acetaminophen (Tylenol Liquid) 650 mg Q6 PRN GTB PAIN AND OR ELEVATED TEMP Last administered on 01/09/17 21:27; Admin Dose 650 MG; Start 01/02/17 at 23:00 Polyethylene Glycol (Miralax) 17 gm DAILY PO Last administered on 01/14/17 08: 02; Admin Dose 17 GM; Start 01/06/17 at 09:00 Bisacodyl (Dulcolax Supp) 10 mg DAILY PRN [place] CONSTIPATION Last administered on 01/05/17 16:40; Admin Dose 10 MG; Start 01/05/17 at 15:30 E[employer]etin [employer] 41279 units 10,000 units MoWeFr@17 SC Last administered on 17:42; Admin Dose 10,000 UNITS; Start 01/06/17 at 17:00 Sodium Chloride (1/2 NS) 1,000 ml @ 40 mls/hr Q24H IV Last administered on 05:26; Admin Dose 40 MLS/HR; Start 01/11/17 at 23:00 MARCY WEINER January 14, 2017 19:42
[2017-01-14] MEDS: ATORVASTATIN 20 MG TAB PO SCH (20:46)
[2017-01-14] MEDS: TAMSULOSIN (SR) 0.4 MG CAP PO SCH (20:46)
[2017-01-14] MEDS: INSULIN GLARGINE [LANtus] 3 ML PEN SC SCH (20:49)
[2017-01-14 22:39] VITALS: BP 169/76; RESP 19
[2017-01-15 00:09] VITALS: BP 146/64
[2017-01-15] MEDS: INSULIN ASPART [NOVOLOG] 3 ML PEN SC SCH ×4 (00:09→17:52)
[2017-01-15] MEDS: ALBUTEROL/IPRATROPIUM (NEB) 3 ML AMP HHN SCH ×6 (01:09→20:59)
[2017-01-15 01:49] VITALS: BP 137/63; RESP 19
[2017-01-15 05:14] LABS: ADD SCAN DIFF NO
[2017-01-15 05:17] LABS: BASOPHIL # 0.2 10^3/ul (0.0-0.1); BASOPHILS % 1.4 % (0.0-2.0); EOSINOPHILS # 1.1 10^3/ul (0.0-0.5); EOSINOPHILS % 9.2 % (0.0-7.0); HEMATOCRIT 30.3 % (42.0-52.0); HEMOGLOBIN 9.4 g/dl (14.0-18.0); LYMPHOCYTES # 2.4 10^3/ul (0.8-2.9); LYMPHOCYTES % 20.3 % (15.0-51.0); MEAN CORPUSCULAR HEMOGLOBIN 27.6 pg (29.0-33.0); MEAN CORPUSCULAR VOLUME 89.1 fl (82.0-101.0); MEAN PLATELET VOLUME 10.4 fl (7.4-10.4); MONOCYTE # 0.9 10^3/ul (0.3-0.9); MONOCYTES % 7.9 % (0.0-11.0); NEUTROPHILS % 59.7 % (39.0-77.0); NUCLEATED RED BLOOD CELLS% 0.2 /100WBC (0.0-0.0); PLATELET COUNT 567 10^3/UL (140-415); RED CELL DISTRIBUTION WIDTH 17.9 % (11.5-14.5); WHITE BLOOD COUNT 11.8 10^3/ul (4.8-10.8)
[2017-01-15] MEDS: ONDANSETRON 4 MG TAB GTB SCH ×3 (05:36→21:40)
[2017-01-15] MEDS: SOD CHLORIDE 0.45% 1,000 ML IV SCH (05:39)
[2017-01-15 05:41] LABS: POTASSIUM 4.5 mmol/L (3.5-5.1)
[2017-01-15 05:44] LABS: CREATININE 2.58 mg/dl (0.61-1.24)
[2017-01-15 05:45] LABS: CALCIUM 8.7 mg/dl (8.4-10.2)
[2017-01-15 07:43] VITALS: BP 135/61; RESP 20
[2017-01-15] MEDS: GABAPENTIN 300 MG CAP PO SCH (08:11)
[2017-01-15] MEDS: DOCUSATE SODIUM 10 MG/ML (10ML CUP) GTB SCH ×2 (08:12→20:32)
[2017-01-15] MEDS: AMIODARONE 200 MG TAB PO SCH (08:12)
[2017-01-15] MEDS: MEGESTROL 40 MG TAB PO SCH ×2 (08:12→20:34)
[2017-01-15] MEDS: POLYETHYLENE GLYCOL 17 GM PACKET PO SCH (08:12)
[2017-01-15] MEDS: PANTOPRAZOLE (EC) 40 MG TAB PO SCH (08:13)
--- NOTE | 2017-01-15 14:18 | CONS ---
Date/Time of Note Date/Time of Note DATE: 01/15/17 TIME: 14:17 Assessment/Plan Assessment/Plan Chief Complaint/Hosp Course SUBJECTIVE: No events, looks comfortable, no fevers INDWELLINGS: Flores, PEG. PHYSICAL EXAMINATION: GENERAL: This is a cachectic, fragile, elderly man who is in no distress. HEENT: Head atraumatic, normocephalic. Sclerae anicteric. Buccal mucosa dry. NECK: Supple, trachea midline. CHEST: Rise symmetrical. Breath sounds diminished to bases. HEART: S1, S2. ABDOMEN: Soft. Bowel tones present. ASSESSMENT: 1. S/p pneumonia, possibly aspiration==> completed abx. 2. Failure to thrive with dysphagia, patient has PEG. 3. Anemia. 4. Dementia. 5. Diabetes. 6. History of cerebrovascular accident. PLAN: The patient remains stable. Off abx. Continue present care, aspiration precautions, pending dc DW staff Problems: Consultation Date/Type/Reason Admit Date/Time December 29, 2016 at 04:03 Type of Consultation: id Exam/Review of Systems Vital Signs Vitals Vital Signs Date Time Temp Pulse Resp B/P Pulse Ox O2 Delivery O2 Flow Rate FiO2 01/15/17 12:13 68 18 97 21 01/15/17 07:43 98.2 135/61 Intake and Output 01/14/17 01/14/17 01/15/17 15:00 23:00 07:00 Intake Total 1280 ml 1440 ml Output Total 1200 ml 1000 ml Balance 80 ml 440 ml Results Result Diagram: 01/15/17 0440 01/15/17 0500 Results 24 hrs Laboratory Tests Test 01/14/17 17:51 01/14/17 20:45 01/15/17 00:01 01/15/17 04:40 Bedside Glucose 201 197 166 White Blood Count 11.8 H Red Blood Count 3.40 L Hemoglobin 9.4 L Hematocrit 30.3 L Mean Corpuscular Volume 89.1 Mean Corpuscular Hemoglobin 27.6 L Mean Corpuscular Hemoglobin Concent 31.0 L Red Cell Distribution Width 17.9 H Platelet Count 567 H Mean Platelet Volume 10.4 Neutrophils % 59.7 Lymphocytes % 20.3 Monocytes % 7.9 Eosinophils % 9.2 H Basophils % 1.4 Nucleated Red Blood Cells % 0.2 H Neutrophils # 7.0 Lymphocytes # 2.4 Monocytes # 0.9 Eosinophils # 1.1 H Basophils # 0.2 H Nucleated Red Blood Cells # 0.0 Test 01/15/17 05:00 01/15/17 05:32 01/15/17 12:08 Sodium Level 140 Potassium Level 4.5 Chloride Level 106 Carbon Dioxide Level 25 Anion Gap 14 Blood Urea Nitrogen 51 H Creatinine 2.58 H Glucose Level 147 # Calcium Level 8.7 Bedside Glucose 147 182 Medications Medications Current Medications Acetaminophen (Tylenol Tab) 650 mg Q6H PRN PO PAIN AND OR ELEVATED TEMP; Start 12/29/16 at 10:30; Status Future Hold Miscellaneous Information 1 ea NOTE XX ; Start 12/29/16 at 10:30 Glucose (Glutose) 15 gm Q15M PRN PO DECREASED GLUCOSE; Start 12/29/16 at 10:30 Glucose (Glutose) 22.5 gm Q15M PRN PO DECREASED GLUCOSE; Start 12/29/16 at 10:30 Dextrose (D50w Syringe) 25 ml Q15M PRN IV DECREASED GLUCOSE; Start 12/29/16 at 10:30 Dextrose (D50w Syringe) 50 ml Q15M PRN IV DECREASED GLUCOSE; Start 12/29/16 at 10:30 Glucagon (Glucagen) 1 mg Q15M PRN IM DECREASED GLUCOSE; Start 12/29/16 at 10:30 Glucose (Glutose) 15 gm Q15M PRN BUCCAL DECREASED GLUCOSE; Start 12/29/16 at 10: 30 Hydralazine HCl (Apresoline) 10 mg Q6H PRN IV sbp greater than 165 Last administered on 01/06/17 20:09; Admin Dose 10 MG; Start 12/29/16 at 10:30 Amiodarone HCl (Cordarone) 100 mg DAILY PO Last administered on 01/15/17 08:12 ; Admin Dose 100 MG; Start 12/29/16 at 12:00 Gabapentin (Neurontin) 300 mg DAILY PO Last administered on 01/15/17 08:11; Admin Dose 300 MG; Start 12/29/16 at 12:00 Megestrol Acetate (Megace) 40 mg BID PO Last administered on 01/15/17 08:12; Admin Dose 40 MG; Start 12/29/16 at 12:00 Tamsulosin HCl (Flomax) 0.4 mg HS PO Last administered on 01/14/17 20:46; Admin Dose 0.4 MG; Start 12/29/16 at 21:00 Atorvastatin Calcium (Lipitor) 20 mg DAILY@21 PO Last administered on 20:46; Admin Dose 20 MG; Start 12/29/16 at 21:00 Pantoprazole (Protonix Tab) 40 mg QAM PO Last administered on 01/15/17 08:13; Admin Dose 40 MG; Start 12/31/16 at 09:00 Docusate Sodium (Colace Liquid Cup) 100 mg Q12 GTB Last administered on 08:12; Admin Dose 100 MG; Start 12/31/16 at 21:59 Insulin Aspart (Novolog Insulin Pen) NOVOLOG *MILD* ALGORI... Q6 SC Last administered on 01/15/17 12:12; Admin Dose 2 UNIT; Start 01/03/17 at 00:00 Hydralazine HCl (Apresoline) 25 mg Q8 GTB Last administered on 01/15/17 13:08 ; Admin Dose 25 MG; Start 01/02/17 at 22:45 Ondansetron HCl (Zofran Tab) 4 mg Q8 GTB Last administered on 01/15/17 13:07; Admin Dose 4 MG; Start 01/02/17 at 22:50 Acetaminophen (Tylenol Liquid) 650 mg Q6 PRN GTB PAIN AND OR ELEVATED TEMP Last administered on 01/09/17 21:27; Admin Dose 650 MG; Start 01/02/17 at 23:00 Polyethylene Glycol (Miralax) 17 gm DAILY PO Last administered on 01/15/17 08: 12; Admin Dose 17 GM; Start 01/06/17 at 09:00 Bisacodyl (Dulcolax Supp) 10 mg DAILY PRN [place] Last administered on 01/05/17 16:40; Admin Dose 10 MG; Start 01/05/17 at 15:30 Epoetin [employer] 69545 units 10,000 units MoWeFr@17 SC Last administered on 17:42; Admin Dose 10,000 UNITS; Start 01/06/17 at 17:00 Sodium Chloride (1/2 NS) 1,000 ml @ 40 mls/hr Q24H IV Last administered on 05:39; Admin Dose 40 MLS/HR; Start 01/11/17 at 23:00 Insulin Glargine (Lantus) 10 unit DAILY@20 SC Last administered on 01/14/17 20 :49; Admin Dose 10 UNIT; Start 01/14/17 at 20:30 KAYLA CASTREJON NP January 15, 2017 14:18
--- NOTE | 2017-01-15 16:07 | CONS ---
Date/Time of Note Date/Time of Note DATE: 01/15/17 TIME: 16:07 Assessment/Plan Assessment/Plan Additional Assessment/Plan Additional Assessment/Plan Additional Assessment/Plan IMPRESSION: 1. Dysphagia. Status post PEG 2. Renal failure 3. History of hypertension. 4. Cerebrovascular accident. 5. Chronic kidney disease. 6. Cachexia and malnutrition. 7. Diabetes mellitus. 8. Paroxysmal atrial fibrillation. 9. Anemia most probably of chronic disease 10. Pneumonia, no evidence of aspiration Plan Increase feeding slowly No active GI bleeding Aspiration precaution Continue antibiotic as per ID Physical therapy evaluation and treatment Consultation Date/Type/Reason Admit Date/Time December 29, 2016 at 04:03 Type of Consultation: id 24 HR Interval Summary Constitutional: improved Exam/Review of Systems Vital Signs Vitals Vital Signs Date Time Temp Pulse Resp B/P Pulse Ox O2 Delivery O2 Flow Rate FiO2 01/15/17 12:13 68 18 97 21 01/15/17 07:43 98.2 135/61 Intake and Output 01/14/17 01/14/17 01/15/17 15:00 23:00 07:00 Intake Total 1280 ml 1440 ml Output Total 1200 ml 1000 ml Balance 80 ml 440 ml Exam Constitutional: alert, oriented, well developed Psych: nl mood/affect, no complaints Head: atraumatic, normocephalic Eyes: EOMI, PERRL, nl conjunctiva, nl lids, nl sclera ENMT: nl external ears & nose, nl lips & teeth, nl nasal mucosa & septum Neck: non-tender, supple Respiratory: clear to auscultation, normal air movement Cardiovascular: nl pulses, regular rate and rhythm Gastrointestinal: nl liver, spleen, non-tender, soft Musculoskeletal: nl extremities to inspection, nl gait and stance Extremities: normal pulses Neurological: [employer] II-XII intact, nl mental status, nl speech, nl strength Skin: nl turgor, No rash or lesions Lymph: nl lymph nodes Results Result Diagram: 01/15/17 0440 01/15/17 0500 Results 24 hrs Laboratory Tests Test 01/14/17 17:51 01/14/17 20:45 01/15/17 00:01 01/15/17 04:40 Bedside Glucose 201 197 166 White Blood Count 11.8 H Red Blood Count 3.40 L Hemoglobin 9.4 L Hematocrit 30.3 L Mean Corpuscular Volume 89.1 Mean Corpuscular Hemoglobin 27.6 L Mean Corpuscular Hemoglobin Concent 31.0 L Red Cell Distribution Width 17.9 H Platelet Count 567 H Mean Platelet Volume 10.4 Neutrophils % 59.7 Lymphocytes % 20.3 Monocytes % 7.9 Eosinophils % 9.2 H Basophils % 1.4 Nucleated Red Blood Cells % 0.2 H Neutrophils # 7.0 Lymphocytes # 2.4 Monocytes # 0.9 Eosinophils # 1.1 H Basophils # 0.2 H Nucleated Red Blood Cells # 0.0 Test 01/15/17 05:00 01/15/17 05:32 01/15/17 12:08 Sodium Level 140 Potassium Level 4.5 Chloride Level 106 Carbon Dioxide Level 25 Anion Gap 14 Blood Urea Nitrogen 51 H Creatinine 2.58 H Glucose Level 147 # Calcium Level 8.7 Bedside Glucose 147 182 Medications Medications Current Medications Acetaminophen (Tylenol Tab) 650 mg Q6H PRN PO PAIN AND OR ELEVATED TEMP; Start 12/29/16 at 10:30; Status Future Hold Miscellaneous Information 1 ea NOTE XX ; Start 12/29/16 at 10:30 Glucose (Glutose) 15 gm Q15M PRN PO DECREASED GLUCOSE; Start 12/29/16 at 10:30 Glucose (Glutose) 22.5 gm Q15M PRN PO DECREASED GLUCOSE; Start 12/29/16 at 10:30 Dextrose (D50w Syringe) 25 ml Q15M PRN IV DECREASED GLUCOSE; Start 12/29/16 at 10:30 Dextrose (D50w Syringe) 50 ml Q15M PRN IV DECREASED GLUCOSE; Start 12/29/16 at 10:30 Glucagon (Glucagen) 1 mg Q15M PRN IM DECREASED GLUCOSE; Start 12/29/16 at 10:30 Glucose (Glutose) 15 gm Q15M PRN BUCCAL DECREASED GLUCOSE; Start 12/29/16 at 10: 30 Hydralazine HCl (Apresoline) 10 mg Q6H PRN IV sbp greater than 165 Last administered on 01/06/17 20:09; Admin Dose 10 MG; Start 12/29/16 at 10:30 Amiodarone HCl (Cordarone) 100 mg DAILY PO Last administered on 01/15/17 08:12 ; Admin Dose 100 MG; Start 12/29/16 at 12:00 Gabapentin (Neurontin) 300 mg DAILY PO Last administered on 01/15/17 08:11; Admin Dose 300 MG; Start 12/29/16 at 12:00 Megestrol Acetate (Megace) 40 mg BID PO Last administered on 01/15/17 08:12; Admin Dose 40 MG; Start 12/29/16 at 12:00 Tamsulosin HCl (Flomax) 0.4 mg HS PO Last administered on 01/14/17 20:46; Admin Dose 0.4 MG; Start 12/29/16 at 21:00 Atorvastatin Calcium (Lipitor) 20 mg DAILY@21 PO Last administered on 20:46; Admin Dose 20 MG; Start 12/29/16 at 21:00 Pantoprazole (Protonix Tab) 40 mg QAM PO Last administered on 01/15/17 08:13; Admin Dose 40 MG; Start 12/31/16 at 09:00 Docusate Sodium (Colace Liquid Cup) 100 mg Q12 GTB Last administered on 08:12; Admin Dose 100 MG; Start 12/31/16 at 21:59 Insulin Aspart (Novolog Insulin Pen) NOVOLOG *MILD* ALGORI... Q6 SC Last administered on 01/15/17 12:12; Admin Dose 2 UNIT; Start 01/03/17 at 00:00 Hydralazine HCl (Apresoline) 25 mg Q8 GTB Last administered on 01/15/17 13:08 ; Admin Dose 25 MG; Start 01/02/17 at 22:45 Ondansetron HCl (Zofran Tab) 4 mg Q8 GTB Last administered on 01/15/17 13:07; Admin Dose 4 MG; Start 01/02/17 at 22:50 Acetaminophen (Tylenol Liquid) 650 mg Q6 PRN GTB PAIN AND OR ELEVATED TEMP Last administered on 01/09/17 21:27; Admin Dose 650 MG; Start 01/02/17 at 23:00 Polyethylene Glycol (Miralax) 17 gm DAILY PO Last administered on 01/15/17 08: 12; Admin Dose 17 GM; Start 01/06/17 at 09:00 Bisacodyl (Dulcolax Supp) 10 mg DAILY PRN [place] CONSTIPATION Last administered on 01/05/17 16:40; Admin Dose 10 MG; Start 01/05/17 at 15:30 Epoetin [employer] 99422 units 10,000 units MoWeFr@17 SC Last administered on 17:42; Admin Dose 10,000 UNITS; Start 01/06/17 at 17:00 Sodium Chloride (1/2 NS) 1,000 ml @ 40 mls/hr Q24H IV Last administered on 05:39; Admin Dose 40 MLS/HR; Start 01/11/17 at 23:00 Insulin Glargine (Lantus) 10 unit DAILY@20 SC Last administered on 01/14/17 20 :49; Admin Dose 10 UNIT; Start 01/14/17 at 20:30 JEFRY CERNA MD January 15, 2017 16:07
--- NOTE | 2017-01-15 17:02 | PN ---
Date/Time of Note Date/Time of Note DATE: 01/15/17 TIME: 17:00 Assessment/Plan VTE Prophylaxis VTE Prophylaxis Intervention: SCD's Lines/Catheters IV Catheter Type (from [facility]): Peripheral IV Urinary Cath still in place: Yes Reason Cath still needed: urinary retention Assessment/Plan Chief Complaint/Hosp Course No acute events overnight per nursing staff, discussed with case management many , renal D convalescent excepting the patient however no male beds available today. Advance nova source renal to 35 cc/h per nutritional recommendations. ASSESSMENT AND PLAN: - Chronic kidney disease. Dr. Cheema is following in nephrology consultation. Continue to monitor BUN and creatinine. - Failure to thrive with dysphagia status post G-tube placement. Continue tube feeding, monitor residual. - Healthcare-acquired pneumonia versus aspiration, status post treatment. Dr. Garcia is following in infectious disease consultation. - Status post metabolic encephalopathy. - Anemia of chronic disease. The patient is continued on Epogen. - Severe protein-calorie malnutrition with albumin 2.9 on admission. Continue G -tube feeding. - Diabetes mellitus. Continue NovoLog. - Diastolic congestive heart failure. Continue to monitor intake and output. - Hypertension. Continue hydralazine. - Hyperlipidemia. Continue statins. - Urinary retention with Flores catheter. - History of cerebrovascular accident. Continue Protonix for peptic ulcer disease prophylaxis and sequential compression device for deep venous thrombosis prophylaxis. Further recommendations based on clinical course. Plan of care discussed with Dr. Patel. Problems: Exam/Review of Systems Vital Signs Vitals Vital Signs Date Time Temp Pulse Resp B/P Pulse Ox O2 Delivery O2 Flow Rate FiO2 01/15/17 16:16 65 18 98 21 01/15/17 07:43 98.2 135/61 Intake and Output 01/14/17 01/14/17 01/15/17 15:00 23:00 07:00 Intake Total 1280 ml 1440 ml Output Total 1200 ml 1000 ml Balance 80 ml 440 ml Exam Constitutional: alert Psych: confusion Head: normocephalic Neck: supple Respiratory: clear to auscultation Cardiovascular: regular rate and rhythm Gastrointestinal: soft Genitourinary - Male: other (Flores catheter) Extremities: normal pulses Neurological: confused Skin: other (Stage II sacral) Results Result Diagram: 01/15/17 0440 01/15/17 0500 Results 24 hrs Laboratory Tests Test 01/14/17 17:51 01/14/17 20:45 01/15/17 00:01 01/15/17 04:40 Bedside Glucose 201 197 166 White Blood Count 11.8 H Red Blood Count 3.40 L Hemoglobin 9.4 L Hematocrit 30.3 L Mean Corpuscular Volume 89.1 Mean Corpuscular Hemoglobin 27.6 L Mean Corpuscular Hemoglobin Concent 31.0 L Red Cell Distribution Width 17.9 H Platelet Count 567 H Mean Platelet Volume 10.4 Neutrophils % 59.7 Lymphocytes % 20.3 Monocytes % 7.9 Eosinophils % 9.2 H Basophils % 1.4 Nucleated Red Blood Cells % 0.2 H Neutrophils # 7.0 Lymphocytes # 2.4 Monocytes # 0.9 Eosinophils # 1.1 H Basophils # 0.2 H Nucleated Red Blood Cells # 0.0 Test 01/15/17 05:00 01/15/17 05:32 01/15/17 12:08 Sodium Level 140 Potassium Level 4.5 Chloride Level 106 Carbon Dioxide Level 25 Anion Gap 14 Blood Urea Nitrogen 51 H Creatinine 2.58 H Glucose Level 147 # Calcium Level 8.7 Bedside Glucose 147 182 Medications Medications Current Medications Acetaminophen (Tylenol Tab) 650 mg Q6H PRN PO PAIN AND OR ELEVATED TEMP; Start 12/29/16 at 10:30; Status Future Hold Miscellaneous Information 1 ea NOTE XX ; Start 12/29/16 at 10:30 Glucose (Glutose) 15 gm Q15M PRN PO DECREASED GLUCOSE; Start 12/29/16 at 10:30 Glucose (Glutose) 22.5 gm Q15M PRN PO DECREASED GLUCOSE; Start 12/29/16 at 10:30 Dextrose (D50w Syringe) 25 ml Q15M PRN IV DECREASED GLUCOSE; Start 12/29/16 at 10:30 Dextrose (D50w Syringe) 50 ml Q15M PRN IV DECREASED GLUCOSE; Start 12/29/16 at 10:30 Glucagon (Glucagen) 1 mg Q15M PRN IM DECREASED GLUCOSE; Start 12/29/16 at 10:30 Glucose (Glutose) 15 gm Q15M PRN BUCCAL DECREASED GLUCOSE; Start 12/29/16 at 10: 30 Hydralazine HCl (Apresoline) 10 mg Q6H PRN IV sbp greater than 165 Last administered on 01/06/17t 20:09; Admin Dose 10 MG; Start 12/29/16 at 10:30 Amiodarone HCl (Cordarone) 100 mg DAILY PO Last administered on 01/15/17 08:12 ; Admin Dose 100 MG; Start 12/29/16 at 12:00 Gabapentin (Neurontin) 300 mg DAILY PO Last administered on 01/15/17 08:11; Admin Dose 300 MG; Start 12/29/16 at 12:00 Megestrol Acetate (Megace) 40 mg BID PO Last administered on 01/15/17 08:12; Admin Dose 40 MG; Start 12/29/16 at 12:00 Tamsulosin HCl (Flomax) 0.4 mg HS PO Last administered on 01/14/17 20:46; Admin Dose 0.4 MG; Start 12/29/16 at 21:00 Atorvastatin Calcium (Lipitor) 20 mg DAILY@21 PO Last administered on 20:46; Admin Dose 20 MG; Start 12/29/16 at 21:00 Pantoprazole (Protonix Tab) 40 mg QAM PO Last administered on 01/15/17 08:13; Admin Dose 40 MG; Start 12/31/16 at 09:00 Docusate Sodium (Colace Liquid Cup) 100 mg Q12 GTB Last administered on 08:12; Admin Dose 100 MG; Start 12/31/16 at 21:59 Insulin Aspart (Novolog Insulin Pen) NOVOLOG *MILD* ALGORI... Q6 SC Last administered on 01/15/17 12:12; Admin Dose 2 UNIT; Start 01/03/17 at 00:00 Hydralazine HCl (Apresoline) 25 mg Q8 GTB Last administered on 01/15/17 13:08 ; Admin Dose 25 MG; Start 01/02/17 at 22:45 Ondansetron HCl (Zofran Tab) 4 mg Q8 GTB Last administered on 01/15/17 13:07; Admin Dose 4 MG; Start 01/02/17 at 22:50 Acetaminophen (Tylenol Liquid) 650 mg Q6 PRN GTB PAIN AND OR ELEVATED TEMP Last administered on 01/09/17 21:27; Admin Dose 650 MG; Start 01/02/17 at 23:00 Polyethylene Glycol (Miralax) 17 gm DAILY PO Last administered on 01/15/17 08: 12; Admin Dose 17 GM; Start 01/06/17 at 09:00 Bisacodyl (Dulcolax Supp) 10 mg DAILY PRN [place] CONSTIPATION Last administered on 01/05/17 16:40; Admin Dose 10 MG; Start 01/05/17 at 15:30 E[employer] 33442 units 10,000 units MoWeFr@17 SC Last administered on 17:42; Admin Dose 10,000 UNITS; Start 01/06/17 at 17:00 Sodium Chloride (1/2 NS) 1,000 ml @ 40 mls/hr Q24H IV Last administered on 05:39; Admin Dose 40 MLS/HR; Start 01/11/17 at 23:00 Insulin Glargine (Lantus) 10 unit DAILY@20 SC Last administered on 01/14/17 20 :49; Admin Dose 10 UNIT; Start 01/14/17 at 20:30 GEOVANY IBARRA January 15, 2017 17:02
[2017-01-15] MEDS: EPOETIN 10000 UNITS/ML (NON ESRD/NON ONCOLOGY) SC SCH (17:51)
[2017-01-15 20:24] VITALS: BP 147/63; RESP 18
[2017-01-15] MEDS: INSULIN GLARGINE [LANtus] 3 ML PEN SC SCH (20:31)
[2017-01-15] MEDS: TAMSULOSIN (SR) 0.4 MG CAP PO SCH (20:34)
[2017-01-15] MEDS: ATORVASTATIN 20 MG TAB PO SCH (20:34)
[2017-01-16] MEDS: INSULIN ASPART [NOVOLOG] 3 ML PEN SC SCH ×5 (01:46→23:48)
[2017-01-16] MEDS: ALBUTEROL/IPRATROPIUM (NEB) 3 ML AMP HHN SCH ×6 (02:46→21:42)
[2017-01-16] MEDS: ONDANSETRON 4 MG TAB GTB SCH ×3 (05:57→21:21)
[2017-01-16 06:00] VITALS: BP 157/75
[2017-01-16 08:17] VITALS: BP 158/68; RESP 18
[2017-01-16] MEDS: PANTOPRAZOLE (EC) 40 MG TAB PO SCH (09:00)
[2017-01-16] MEDS: POLYETHYLENE GLYCOL 17 GM PACKET PO SCH (09:00)
[2017-01-16] MEDS: DOCUSATE SODIUM 10 MG/ML (10ML CUP) GTB SCH ×2 (09:00→20:20)
[2017-01-16] MEDS: SOD CHLORIDE 0.45% 1,000 ML IV SCH ×2 (09:50→22:00)
[2017-01-16] MEDS: GABAPENTIN 300 MG CAP PO SCH (09:53)
[2017-01-16] MEDS: MEGESTROL 40 MG TAB PO SCH ×2 (09:53→20:20)
[2017-01-16] MEDS: AMIODARONE 200 MG TAB PO SCH (09:54)
--- NOTE | 2017-01-16 13:57 | PN ---
Date/Time of Note Date/Time of Note DATE: 01/16/17 TIME: 13:56 Assessment/Plan VTE Prophylaxis VTE Prophylaxis Intervention: other Lines/Catheters IV Catheter Type (from Nrs): Peripheral IV Urinary Cath still in place: Yes Reason Cath still needed: skin wounds contaminated by urine Assessment/Plan Chief Complaint/Hosp Course - Chronic kidney disease. Dr. Cheema is following in nephrology consultation. Continue to monitor BUN and creatinine. - Failure to thrive with dysphagia status post G-tube placement. Continue tube feeding, monitor residual. - Healthcare-acquired pneumonia versus aspiration, status post treatment. Dr. Garcia is following in infectious disease consultation. - Status post metabolic encephalopathy. - Anemia of chronic disease. The patient is continued on Epogen. - Severe protein-calorie malnutrition with albumin 2.9 on admission. Continue G -tube feeding. - Diabetes mellitus. Continue NovoLog. - Diastolic congestive heart failure. Continue to monitor intake and output. - Hypertension. Continue hydralazine. - Hyperlipidemia. Continue statins. - Urinary retention with Flores catheter. - History of cerebrovascular accident. Problems: Subjective 24 Hr Interval Summary Free Text/Dictation Patient has no complaints Exam/Review of Systems Vital Signs Vitals Vital Signs Date Time Temp Pulse Resp B/P Pulse Ox O2 Delivery O2 Flow Rate FiO2 01/16/17 08:17 98.8 71 18 158/68 96 01/16/17 05:20 21 Intake and Output 01/15/17 01/15/17 01/16/17 15:00 23:00 07:00 Intake Total 1520 ml 1040 ml Output Total 1100 ml 1000 ml Balance 420 ml 40 ml Exam Constitutional: well developed Head: atraumatic, normocephalic Neck: supple Respiratory: clear to auscultation Cardiovascular: regular rate and rhythm Gastrointestinal: non-tender, soft Extremities: normal pulses Results Result Diagram: 01/15/17 0440 01/15/17 0500 Results 24 hrs Laboratory Tests Test 01/15/17 17:49 01/15/17 20:27 01/16/17 01:41 01/16/17 05:55 Bedside Glucose 198 190 142 128 Test 01/16/17 12:04 01/16/17 12:24 Bedside Glucose 128 132 Medications Medications Current Medications Acetaminophen (Tylenol Tab) 650 mg Q6H PRN PO PAIN AND OR ELEVATED TEMP; Start 12/29/16 at 10:30; Status Future Hold Miscellaneous Information 1 ea NOTE XX ; Start 12/29/16 at 10:30 Glucose (Glutose) 15 gm Q15M PRN PO DECREASED GLUCOSE; Start 12/29/16 at 10:30 Glucose (Glutose) 22.5 gm Q15M PRN PO DECREASED GLUCOSE; Start 12/29/16 at 10:30 Dextrose (D50w Syringe) 25 ml Q15M PRN IV DECREASED GLUCOSE; Start 12/29/16 at 10:30 Dextrose (D50w Syringe) 50 ml Q15M PRN IV DECREASED GLUCOSE; Start 12/29/16 at 10:30 Glucagon (Glucagen) 1 mg Q15M PRN IM DECREASED GLUCOSE; Start 12/29/16 at 10:30 Glucose (Glutose) 15 gm Q15M PRN BUCCAL DECREASED GLUCOSE; Start 12/29/16 at 10: 30 Hydralazine HCl (Apresoline) 10 mg Q6H PRN IV sbp greater than 165 Last administered on 01/06/17 20:09; Admin Dose 10 MG; Start 12/29/16 at 10:30 Amiodarone HCl (Cordarone) 100 mg DAILY PO Last administered on 01/16/17 09:54 ; Admin Dose 100 MG; Start 12/29/16 at 12:00 Gabapentin (Neurontin) 300 mg DAILY PO Last administered on 01/16/17 09:53; Admin Dose 300 MG; Start 12/29/16 at 12:00 Megestrol Acetate (Megace) 40 mg BID PO Last administered on 01/16/17 09:53; Admin Dose 40 MG; Start 12/29/16 at 12:00 Tamsulosin HCl (Flomax) 0.4 mg HS PO Last administered on 01/15/17 20:34; Admin Dose 0.4 MG; Start 12/29/16 at 21:00 Atorvastatin Calcium (Lipitor) 20 mg DAILY@21 PO Last administered on 20:34; Admin Dose 20 MG; Start 12/29/16 at 21:00 Pantoprazole (Protonix Tab) 40 mg QAM PO Last administered on 01/15/17 08:13; Admin Dose 40 MG; Start 12/31/16 at 09:00 Docusate Sodium (Colace Liquid Cup) 100 mg Q12 GTB Last administered on 08:12; Admin Dose 100 MG; Start 12/31/16 at 21:59 Insulin Aspart (Novolog Insulin Pen) NOVOLOG *MILD* ALGORI... Q6 SC Last administered on 01/16/17 01:46; Admin Dose 1 UNIT; Start 01/03/17 at 00:00 Hydralazine HCl (Apresoline) 25 mg Q8 GTB Last administered on 01/16/17 13:50 ; Admin Dose 25 MG; Start 01/02/17 at 22:45 Ondansetron HCl (Zofran Tab) 4 mg Q8 GTB Last administered on 01/16/17 13:50; Admin Dose 4 MG; Start 01/02/17 at 22:50 Acetaminophen (Tylenol Liquid) 650 mg Q6 PRN GTB PAIN AND OR ELEVATED TEMP Last administered on 01/09/17 21:27; Admin Dose 650 MG; Start 01/02/17 at 23:00 Polyethylene Glycol (Miralax) 17 gm DAILY PO Last administered on 01/15/17 08: 12; Admin Dose 17 GM; Start 01/06/17 at 09:00 Bisacodyl (Dulcolax Supp) 10 mg DAILY PRN [place] CONSTIPATION Last administered on 01/05/17 16:40; Admin Dose 10 MG; Start 01/05/17 at 15:30 Epoetin [employer] 10200 units 10,000 units MoWeFr@17 SC Last administered on 17:51; Admin Dose 10,000 UNITS; Start 01/06/17 at 17:00 Sodium Chloride (1/2 NS) 1,000 ml @ 40 mls/hr Q24H IV Last administered on 09:50; Admin Dose 40 MLS/HR; Start 01/11/17 at 23:00 Insulin Glargine (Lantus) 10 unit DAILY@20 SC Last administered on 01/15/17 20 :31; Admin Dose 10 UNIT; Start 01/14/17 at 20:30 AURA CALL January 16, 2017 13:57
[2017-01-16] MEDS: TAMSULOSIN (SR) 0.4 MG CAP PO SCH (20:20)
[2017-01-16] MEDS: ATORVASTATIN 20 MG TAB PO SCH (20:20)
[2017-01-16] MEDS: INSULIN GLARGINE [LANtus] 3 ML PEN SC SCH (20:26)
[2017-01-16 20:29] VITALS: BP 144/65; RESP 20
[2017-01-17] MEDS: ALBUTEROL/IPRATROPIUM (NEB) 3 ML AMP HHN SCH ×6 (01:37→20:37)
[2017-01-17] MEDS: LANSOPRAZOLE 30 MG CAP GTB SCH (05:36)
[2017-01-17] MEDS: ONDANSETRON 4 MG TAB GTB SCH ×3 (05:36→21:49)
[2017-01-17] MEDS: INSULIN ASPART [NOVOLOG] 3 ML PEN SC SCH ×3 (05:39→17:44)
[2017-01-17 08:01] VITALS: BP 157/67; RESP 18
[2017-01-17] MEDS: DOCUSATE SODIUM 10 MG/ML (10ML CUP) GTB SCH ×2 (09:00→20:46)
[2017-01-17] MEDS: POLYETHYLENE GLYCOL 17 GM PACKET PO SCH (09:00)
[2017-01-17] MEDS: GABAPENTIN 300 MG CAP PO SCH (09:16)
[2017-01-17] MEDS: AMIODARONE 200 MG TAB PO SCH (09:16)
[2017-01-17] MEDS: MEGESTROL 40 MG TAB PO SCH ×2 (09:17→20:46)
[2017-01-17] MEDS: SOD CHLORIDE 0.45% 1,000 ML IV SCH (10:54)
--- NOTE | 2017-01-17 13:54 | PN ---
Date/Time of Note Date/Time of Note DATE: 01/17/17 TIME: 13:53 Assessment/Plan VTE Prophylaxis VTE Prophylaxis Intervention: other Lines/Catheters IV Catheter Type (from Nrs): Peripheral IV Urinary Cath still in place: Yes Reason Cath still needed: skin wounds contaminated by urine Assessment/Plan Chief Complaint/Hosp Course - Chronic kidney disease. Dr. Cheema is following in nephrology consultation. Continue to monitor BUN and creatinine. - Failure to thrive with dysphagia status post G-tube placement. Continue tube feeding, monitor residual. - Healthcare-acquired pneumonia versus aspiration, status post treatment. Dr. Garcia is following in infectious disease consultation. - Status post metabolic encephalopathy. - Anemia of chronic disease. The patient is continued on Epogen. - Severe protein-calorie malnutrition with albumin 2.9 on admission. Continue G -tube feeding. - Diabetes mellitus. Continue NovoLog. - Diastolic congestive heart failure. Continue to monitor intake and output. - Hypertension. Continue hydralazine. - Hyperlipidemia. Continue statins. - Urinary retention with Flores catheter. - History of cerebrovascular accident. Problems: Subjective 24 Hr Interval Summary Free Text/Dictation Patient resting comfortably Exam/Review of Systems Vital Signs Vitals Vital Signs Date Time Temp Pulse Resp B/P Pulse Ox O2 Delivery O2 Flow Rate FiO2 01/17/17 12:28 67 18 99 21 01/17/17 08:01 98.4 157/67 Intake and Output 01/16/17 01/16/17 01/17/17 15:00 23:00 07:00 Intake Total 160 ml 1060 ml 1300 ml Output Total 1600 ml 400 ml Balance 160 ml -540 ml 900 ml Exam Constitutional: well developed Head: atraumatic, normocephalic Neck: supple Respiratory: clear to auscultation Cardiovascular: regular rate and rhythm Gastrointestinal: non-tender, soft Extremities: normal pulses Results Result Diagram: 01/15/17 0440 01/15/17 0500 Results 24 hrs Laboratory Tests Test 01/16/17 17:48 01/16/17 20:24 01/16/17 23:46 01/17/17 05:36 Bedside Glucose 174 190 153 156 Test 01/17/17 11:42 Bedside Glucose 156 Medications Medications Current Medications Acetaminophen (Tylenol Tab) 650 mg Q6H PRN PO PAIN AND OR ELEVATED TEMP; Start 12/29/16 at 10:30; Status Future Hold Miscellaneous Information 1 ea NOTE XX ; Start 12/29/16 at 10:30 Glucose (Glutose) 15 gm Q15M PRN PO DECREASED GLUCOSE; Start 12/29/16 at 10:30 Glucose (Glutose) 22.5 gm Q15M PRN PO DECREASED GLUCOSE; Start 12/29/16 at 10:30 Dextrose (D50w Syringe) 25 ml Q15M PRN IV DECREASED GLUCOSE; Start 12/29/16 at 10:30 Dextrose (D50w Syringe) 50 ml Q15M PRN IV DECREASED GLUCOSE; Start 12/29/16 at 10:30 Glucagon (Glucagen) 1 mg Q15M PRN IM DECREASED GLUCOSE; Start 12/29/16 at 10:30 Glucose (Glutose) 15 gm Q15M PRN BUCCAL DECREASED GLUCOSE; Start 12/29/16 at 10: 30 Hydralazine HCl (Apresoline) 10 mg Q6H PRN IV sbp greater than 165 Last administered on 01/06/17 20:09; Admin Dose 10 MG; Start 12/29/16 at 10:30 Amiodarone HCl (Cordarone) 100 mg DAILY PO Last administered on 01/17/17 09:16 ; Admin Dose 100 MG; Start 12/29/16 at 12:00 Gabapentin (Neurontin) 300 mg DAILY PO Last administered on 01/17/17 09:16; Admin Dose 300 MG; Start 12/29/16 at 12:00 Megestrol Acetate (Megace) 40 mg BID PO Last administered on 01/17/17 09:17; Admin Dose 40 MG; Start 12/29/16 at 12:00 Tamsulosin HCl (Flomax) 0.4 mg HS PO Last administered on 01/16/17 20:20; Admin Dose 0.4 MG; Start 12/29/16 at 21:00 Atorvastatin Calcium (Lipitor) 20 mg DAILY@21 PO Last administered on 20:20; Admin Dose 20 MG; Start 12/29/16 at 21:00 Docusate Sodium (Colace Liquid Cup) 100 mg Q12 GTB Last administered on 08:12; Admin Dose 100 MG; Start 12/31/16 at 21:59 Insulin Aspart (Novolog Insulin Pen) NOVOLOG *MILD* ALGORI... Q6 SC Last administered on 01/17/17 12:16; Admin Dose 1 UNIT; Start 01/03/17 at 00:00 Hydralazine HCl (Apresoline) 25 mg Q8 GTB Last administered on 01/17/17 05:40 ; Admin Dose 25 MG; Start 01/02/17 at 22:45 Ondansetron HCl (Zofran Tab) 4 mg Q8 GTB Last administered on 01/17/17 05:36; Admin Dose 4 MG; Start 01/02/17 at 22:50 Acetaminophen (Tylenol Liquid) 650 mg Q6 PRN GTB PAIN AND OR ELEVATED TEMP Last administered on 01/09/17 21:27; Admin Dose 650 MG; Start 01/02/17 at 23:00 Polyethylene Glycol (Miralax) 17 gm DAILY PO Last administered on 01/15/17 08: 12; Admin Dose 17 GM; Start 01/06/17 at 09:00 Bisacodyl (Dulcolax Supp) 10 mg DAILY PRN [place] CONSTIPATION Last administered on 01/05/17 16:40; Admin Dose 10 MG; Start 01/05/17 at 15:30 Epoetin [employer] 23331 units 10,000 units MoWeFr@17 SC Last administered on 17:51; Admin Dose 10,000 UNITS; Start 01/06/17 at 17:00 Sodium Chloride (1/2 NS) 1,000 ml @ 40 mls/hr Q24H IV Last administered on 09:50; Admin Dose 40 MLS/HR; Start 01/11/17 at 23:00 Insulin Glargine (Lantus) 10 unit DAILY@20 SC Last administered on 01/16/17 20 :26; Admin Dose 10 UNIT; Start 01/14/17 at 20:30 Lansoprazole (Prevacid) 30 mg DAILY@06 GTB Last administered on 01/17/17 05:36 ; Admin Dose 30 MG; Start 01/17/17 at 06:00 AURA CALL January 17, 2017 13:54
[2017-01-17 14:00] VITALS: BP 143/66
[2017-01-17 14:54] VITALS: BP 158/72
--- NOTE | 2017-01-17 17:10 | CONS ---
Date/Time of Note Date/Time of Note DATE: 01/17/17 TIME: 17:09 Assessment/Plan Assessment/Plan Chief Complaint/Hosp Course ckd htn cad cva ashd hyperkalemia better ashd plan kayexalate PRN iv fluid CK BMP renal stable Problems: Consultation Date/Type/Reason Admit Date/Time December 29, 2016 at 04:03 Type of Consultation: RENAL 24 HR Interval Summary Constitutional: no complaints Exam/Review of Systems Vital Signs Vitals Vital Signs Date Time Temp Pulse Resp B/P Pulse Ox O2 Delivery O2 Flow Rate FiO2 01/17/17 16:14 66 18 99 21 01/17/17 14:54 158/72 01/17/17 08:01 98.4 Intake and Output 01/16/17 01/16/17 01/17/17 15:00 23:00 07:00 Intake Total 160 ml 1060 ml 1300 ml Output Total 1600 ml 400 ml Balance 160 ml -540 ml 900 ml Exam Respiratory: clear to auscultation Cardiovascular: regular rate and rhythm Gastrointestinal: soft Musculoskeletal: nl extremities to inspection Results Result Diagram: 01/15/17 0440 01/15/17 0500 Results 24 hrs Laboratory Tests Test 01/16/17 17:48 01/16/17 20:24 01/16/17 23:46 01/17/17 05:36 Bedside Glucose 174 190 153 156 Test 01/17/17 11:42 Bedside Glucose 156 Medications Medications Current Medications Acetaminophen (Tylenol Tab) 650 mg Q6H PRN PO PAIN AND OR ELEVATED TEMP; Start 12/29/16 at 10:30; Status Future Hold Miscellaneous Information 1 ea NOTE XX ; Start 12/29/16 at 10:30 Glucose (Glutose) 15 gm Q15M PRN PO DECREASED GLUCOSE; Start 12/29/16 at 10:30 Glucose (Glutose) 22.5 gm Q15M PRN PO DECREASED GLUCOSE; Start 12/29/16 at 10:30 Dextrose (D50w Syringe) 25 ml Q15M PRN IV DECREASED GLUCOSE; Start 12/29/16 at 10:30 Dextrose (D50w Syringe) 50 ml Q15M PRN IV DECREASED GLUCOSE; Start 12/29/16 at 10:30 Glucagon (Glucagen) 1 mg Q15M PRN IM DECREASED GLUCOSE; Start 12/29/16 at 10:30 Glucose (Glutose) 15 gm Q15M PRN BUCCAL DECREASED GLUCOSE; Start 12/29/16 at 10: 30 Hydralazine HCl (Apresoline) 10 mg Q6H PRN IV sbp greater than 165 Last administered on 01/06/17 20:09; Admin Dose 10 MG; Start 12/29/16 at 10:30 Amiodarone HCl (Cordarone) 100 mg DAILY PO Last administered on 01/17/17 09:16 ; Admin Dose 100 MG; Start 12/29/16 at 12:00 Gabapentin (Neurontin) 300 mg DAILY PO Last administered on 01/17/17 09:16; Admin Dose 300 MG; Start 12/29/16 at 12:00 Megestrol Acetate (Megace) 40 mg BID PO Last administered on 01/17/17 09:17; Admin Dose 40 MG; Start 12/29/16 at 12:00 Tamsulosin HCl (Flomax) 0.4 mg HS PO Last administered on 01/16/17 20:20; Admin Dose 0.4 MG; Start 12/29/16 at 21:00 Atorvastatin Calcium (Lipitor) 20 mg DAILY@21 PO Last administered on 20:20; Admin Dose 20 MG; Start 12/29/16 at 21:00 Docusate Sodium (Colace Liquid Cup) 100 mg Q12 GTB Last administered on 08:12; Admin Dose 100 MG; Start 12/31/16 at 21:59 Insulin Aspart (Novolog Insulin Pen) NOVOLOG *MILD* ALGORI... Q6 SC Last administered on 01/17/17 12:16; Admin Dose 1 UNIT; Start 01/03/17 at 00:00 Hydralazine HCl (Apresoline) 25 mg Q8 GTB Last administered on 01/17/17 14:51 ; Admin Dose 25 MG; Start 01/02/17 at 22:45 Ondansetron HCl (Zofran Tab) 4 mg Q8 GTB Last administered on 01/17/17 14:51; Admin Dose 4 MG; Start 01/02/17 at 22:50 Acetaminophen (Tylenol Liquid) 650 mg Q6 PRN GTB PAIN AND OR ELEVATED TEMP Last administered on 01/09/17 21:27; Admin Dose 650 MG; Start 01/02/17 at 23:00 Polyethylene Glycol (Miralax) 17 gm DAILY PO Last administered on 01/15/17 08: 12; Admin Dose 17 GM; Start 01/06/17 at 09:00 Bisacodyl (Dulcolax Supp) 10 mg DAILY PRN [place] CONSTIPATION Last administered on 01/05/17 16:40; Admin Dose 10 MG; Start 01/05/17 at 15:30 Epoetin [employer] 57443 units 10,000 units MoWeFr@17 SC Last administered on 17:51; Admin Dose 10,000 UNITS; Start 01/06/17 at 17:00 Sodium Chloride (1/2 NS) 1,000 ml @ 40 mls/hr Q24H IV Last administered on 09:50; Admin Dose 40 MLS/HR; Start 01/11/17 at 23:00 Insulin Glargine (Lantus) 10 unit DAILY@20 SC Last administered on 01/16/17 20 :26; Admin Dose 10 UNIT; Start 01/14/17 at 20:30 Lansoprazole (Prevacid) 30 mg DAILY@06 GTB Last administered on 01/17/17 05:36 ; Admin Dose 30 MG; Start 01/17/17 at 06:00 ABBY RAMOS MD January 17, 2017 17:10
[2017-01-17 19:38] VITALS: BP 159/70; RESP 18
[2017-01-17] MEDS: TAMSULOSIN (SR) 0.4 MG CAP PO SCH (20:46)
[2017-01-17] MEDS: INSULIN GLARGINE [LANtus] 3 ML PEN SC SCH (20:46)
[2017-01-17] MEDS: ATORVASTATIN 20 MG TAB PO SCH (20:46)
[2017-01-18] MEDS: ALBUTEROL/IPRATROPIUM (NEB) 3 ML AMP HHN SCH ×6 (00:01→21:58)
[2017-01-18] MEDS: ONDANSETRON 4 MG TAB GTB SCH ×3 (05:29→21:55)
[2017-01-18] MEDS: LANSOPRAZOLE 30 MG CAP GTB SCH (05:29)
[2017-01-18] MEDS: INSULIN ASPART [NOVOLOG] 3 ML PEN SC SCH ×4 (05:29→18:01)
[2017-01-18 05:48] LABS: CALCIUM 8.7 mg/dl (8.4-10.2); CREATININE 2.34 mg/dl (0.61-1.24); POTASSIUM 4.6 mmol/L (3.5-5.1)
[2017-01-18 07:15] VITALS: BP 139/65; RESP 16
[2017-01-18] MEDS: MEGESTROL 40 MG TAB PO SCH ×2 (08:47→20:47)
[2017-01-18] MEDS: POLYETHYLENE GLYCOL 17 GM PACKET PO SCH (08:48)
[2017-01-18] MEDS: GABAPENTIN 300 MG CAP PO SCH (08:48)
[2017-01-18] MEDS: AMIODARONE 200 MG TAB PO SCH (08:48)
[2017-01-18] MEDS: DOCUSATE SODIUM 10 MG/ML (10ML CUP) GTB SCH ×2 (08:48→20:48)
--- NOTE | 2017-01-18 11:27 | PN ---
Date/Time of Note Date/Time of Note DATE: 01/18/17 TIME: 11:26 Assessment/Plan VTE Prophylaxis VTE Prophylaxis Intervention: other Lines/Catheters IV Catheter Type (from [facility]): Peripheral IV Urinary Cath still in place: Yes Reason Cath still needed: skin wounds contaminated by urine Assessment/Plan Chief Complaint/Hosp Course - Chronic kidney disease. Dr. Cheema is following in nephrology consultation. Continue to monitor BUN and creatinine. - Failure to thrive with dysphagia status post G-tube placement. Continue tube feeding, monitor residual. - Healthcare-acquired pneumonia versus aspiration, status post treatment. Dr. Garcia is following in infectious disease consultation. - Status post metabolic encephalopathy. - Anemia of chronic disease. The patient is continued on Epogen. - Severe protein-calorie malnutrition with albumin 2.9 on admission. Continue G -tube feeding. - Diabetes mellitus. Continue NovoLog. - Diastolic congestive heart failure. Continue to monitor intake and output. - Hypertension. Continue hydralazine. - Hyperlipidemia. Continue statins. - Urinary retention with Flores catheter. - History of cerebrovascular accident. Problems: Subjective 24 Hr Interval Summary Free Text/Dictation Patient has no complaints Exam/Review of Systems Vital Signs Vitals Vital Signs Date Time Temp Pulse Resp B/P Pulse Ox O2 Delivery O2 Flow Rate FiO2 01/18/17 08:15 71 18 98 21 01/18/17 07:15 97.8 139/65 Intake and Output 01/17/17 01/17/17 01/18/17 14:59 22:59 06:59 Intake Total 560 ml 980 ml 1240 ml Output Total 2800 ml 1000 ml Balance 560 ml -1820 ml 240 ml Exam Constitutional: well developed Head: atraumatic, normocephalic Neck: supple Respiratory: clear to auscultation Cardiovascular: regular rate and rhythm Gastrointestinal: non-tender, soft Extremities: normal pulses Results Result Diagram: 01/18/17 0443 01/18/17 0443 Results 24 hrs Laboratory Tests Test 01/17/17 11:42 01/17/17 17:42 01/17/17 20:44 01/18/17 00:24 Bedside Glucose 156 171 163 140 Test 01/18/17 04:43 01/18/17 05:26 Hemoglobin 9.6 L Sodium Level 140 Potassium Level 4.6 Chloride Level 109 Carbon Dioxide Level 20 L Anion Gap 16 Blood Urea Nitrogen 51 H Creatinine 2.34 H Glucose Level 161 Calcium Level 8.7 Bedside Glucose 200 Medications Medications Current Medications Acetaminophen (Tylenol Tab) 650 mg Q6H PRN PO PAIN AND OR ELEVATED TEMP; Start 12/29/16 at 10:30; Status Future Hold Miscellaneous Information 1 ea NOTE XX ; Start 12/29/16 at 10:30 Glucose (Glutose) 15 gm Q15M PRN PO DECREASED GLUCOSE; Start 12/29/16 at 10:30 Glucose (Glutose) 22.5 gm Q15M PRN PO DECREASED GLUCOSE; Start 12/29/16 at 10:30 Dextrose (D50w Syringe) 25 ml Q15M PRN IV DECREASED GLUCOSE; Start 12/29/16 at 10:30 Dextrose (D50w Syringe) 50 ml Q15M PRN IV DECREASED GLUCOSE; Start 12/29/16 at 10:30 Glucagon (Glucagen) 1 mg Q15M PRN IM DECREASED GLUCOSE; Start 12/29/16 at 10:30 Glucose (Glutose) 15 gm Q15M PRN BUCCAL DECREASED GLUCOSE; Start 12/29/16 at 10: 30 Hydralazine HCl (Apresoline) 10 mg Q6H PRN IV sbp greater than 165 Last administered on 01/06/17 20:09; Admin Dose 10 MG; Start 12/29/16 at 10:30 Amiodarone HCl (Cordarone) 100 mg DAILY PO Last administered on 01/18/17 08:48 ; Admin Dose 100 MG; Start 12/29/16 at 12:00 Gabapentin (Neurontin) 300 mg DAILY PO Last administered on 01/18/17 08:48; Admin Dose 300 MG; Start 12/29/16 at 12:00 Megestrol Acetate (Megace) 40 mg BID PO Last administered on 01/18/17 08:47; Admin Dose 40 MG; Start 12/29/16 at 12:00 Tamsulosin HCl (Flomax) 0.4 mg HS PO Last administered on 01/17/17 20:46; Admin Dose 0.4 MG; Start 12/29/16 at 21:00 Atorvastatin Calcium (Lipitor) 20 mg DAILY@21 PO Last administered on 20:46; Admin Dose 20 MG; Start 12/29/16 at 21:00 Docusate Sodium (Colace Liquid Cup) 100 mg Q12 GTB Last administered on 08:48; Admin Dose 100 MG; Start 12/31/16 at 21:59 Insulin Aspart (Novolog Insulin Pen) NOVOLOG *MILD* ALGORI... Q6 SC Last administered on 01/18/17 05:29; Admin Dose 2 UNIT; Start 01/03/17 at 00:00 Ondansetron HCl (Zofran Tab) 4 mg Q8 GTB Last administered on 01/18/17 05:29; Admin Dose 4 MG; Start 01/02/17 at 22:50 Acetaminophen (Tylenol Liquid) 650 mg Q6 PRN GTB PAIN AND OR ELEVATED TEMP Last administered on 01/09/17 21:27; Admin Dose 650 MG; Start 01/02/17 at 23:00 Polyethylene Glycol (Miralax) 17 gm DAILY PO Last administered on 01/18/17 08: 48; Admin Dose 17 GM; Start 01/06/17 at 09:00 Bisacodyl (Dulcolax Supp) 10 mg DAILY PRN [place] CONSTIPATION Last administered on 01/05/17 16:40; Admin Dose 10 MG; Start 01/05/17 at 15:30 Epoetin [employer] 85213 units 10,000 units MoWeFr@17 SC Last administered on 17:51; Admin Dose 10,000 UNITS; Start 01/06/17 at 17:00 Sodium Chloride (1/2 NS) 1,000 ml @ 40 mls/hr Q24H IV Last administered on 10:54; Admin Dose 40 MLS/HR; Start 01/11/17 at 23:00 Insulin Glargine (Lantus) 10 unit DAILY@20 SC Last administered on 01/17/17 20 :46; Admin Dose 10 UNIT; Start 01/14/17 at 20:30 Lansoprazole (Prevacid) 30 mg DAILY@06 GTB Last administered on 01/18/17 05:29 ; Admin Dose 30 MG; Start 01/17/17 at 06:00 Hydralazine HCl (Apresoline) 50 mg Q8 GTB Last administered on 01/18/17 05:30 ; Admin Dose 50 MG; Start 01/17/17 at 22:00 AURA ACLL January 18, 2017 11:27
[2017-01-18] MEDS: SOD CHLORIDE 0.45% 1,000 ML IV SCH ×2 (15:02→22:16)
--- NOTE | 2017-01-18 15:34 | CONS ---
Date/Time of Note Date/Time of Note DATE: 01/18/17 TIME: 15:33 Assessment/Plan Assessment/Plan Chief Complaint/Hosp Course ckd htn cad cva ashd hyperkalemia better ashd plan iv fluid CK BMP renal stable Problems: Consultation Date/Type/Reason Admit Date/Time December 29, 2016 at 04:03 Type of Consultation: RENAL 24 HR Interval Summary Constitutional: no complaints Exam/Review of Systems Vital Signs Vitals Vital Signs Date Time Temp Pulse Resp B/P Pulse Ox O2 Delivery O2 Flow Rate FiO2 01/18/17 12:58 68 18 99 21 01/18/17 07:15 97.8 139/65 Intake and Output 01/17/17 01/17/17 01/18/17 15:00 23:00 07:00 Intake Total 560 ml 980 ml 1240 ml Output Total 2800 ml 1000 ml Balance 560 ml -1820 ml 240 ml Exam Neck: supple Respiratory: clear to auscultation Cardiovascular: regular rate and rhythm Gastrointestinal: soft Results Result Diagram: 01/18/17 0443 01/18/17 0443 Results 24 hrs Laboratory Tests Test 01/17/17 17:42 01/17/17 20:44 01/18/17 00:24 01/18/17 04:43 Bedside Glucose 171 163 140 Hemoglobin 9.6 L Sodium Level 140 Potassium Level 4.6 Chloride Level 109 Carbon Dioxide Level 20 L Anion Gap 16 Blood Urea Nitrogen 51 H Creatinine 2.34 H Glucose Level 161 Calcium Level 8.7 Test 01/18/17 05:26 01/18/17 11:48 Bedside Glucose 200 186 Medications Medications Current Medications Acetaminophen (Tylenol Tab) 650 mg Q6H PRN PO PAIN AND OR ELEVATED TEMP; Start 12/29/16 at 10:30; Status Future Hold Miscellaneous Information 1 ea NOTE XX ; Start 12/29/16 at 10:30 Glucose (Glutose) 15 gm Q15M PRN PO DECREASED GLUCOSE; Start 12/29/16 at 10:30 Glucose (Glutose) 22.5 gm Q15M PRN PO DECREASED GLUCOSE; Start 12/29/16 at 10:30 Dextrose (D50w Syringe) 25 ml Q15M PRN IV DECREASED GLUCOSE; Start 12/29/16 at 10:30 Dextrose (D50w Syringe) 50 ml Q15M PRN IV DECREASED GLUCOSE; Start 12/29/16 at 10:30 Glucagon (Glucagen) 1 mg Q15M PRN IM DECREASED GLUCOSE; Start 12/29/16 at 10:30 Glucose (Glutose) 15 gm Q15M PRN BUCCAL DECREASED GLUCOSE; Start 12/29/16 at 10: 30 Hydralazine HCl (Apresoline) 10 mg Q6H PRN IV sbp greater than 165 Last administered on 01/06/17 20:09; Admin Dose 10 MG; Start 12/29/16 at 10:30 Amiodarone HCl (Cordarone) 100 mg DAILY PO Last administered on 01/18/17 08:48 ; Admin Dose 100 MG; Start 12/29/16 at 12:00 Gabapentin (Neurontin) 300 mg DAILY PO Last administered on 01/18/17 08:48; Admin Dose 300 MG; Start 12/29/16 at 12:00 Megestrol Acetate (Megace) 40 mg BID PO Last administered on 01/18/17 08:47; Admin Dose 40 MG; Start 12/29/16 at 12:00 Tamsulosin HCl (Flomax) 0.4 mg HS PO Last administered on 01/17/17 20:46; Admin Dose 0.4 MG; Start 12/29/16 at 21:00 Atorvastatin Calcium (Lipitor) 20 mg DAILY@21 PO Last administered on 20:46; Admin Dose 20 MG; Start 12/29/16 at 21:00 Docusate Sodium (Colace Liquid Cup) 100 mg Q12 GTB Last administered on 08:48; Admin Dose 100 MG; Start 12/31/16 at 21:59 Insulin Aspart (Novolog Insulin Pen) NOVOLOG *MILD* ALGORI... Q6 SC Last administered on 01/18/17 11:50; Admin Dose 2 UNIT; Start 01/03/17 at 00:00 Ondansetron HCl (Zofran Tab) 4 mg Q8 GTB Last administered on 01/18/17 13:20; Admin Dose 4 MG; Start 01/02/17 at 22:50 Acetaminophen (Tylenol Liquid) 650 mg Q6 PRN GTB PAIN AND OR ELEVATED TEMP Last administered on 01/09/17 21:27; Admin Dose 650 MG; Start 01/02/17 at 23:00 Polyethylene Glycol (Miralax) 17 gm DAILY PO Last administered on 01/18/17 08: 48; Admin Dose 17 GM; Start 01/06/17 at 09:00 Bisacodyl (Dulcolax Supp) 10 mg DAILY PRN [place] CONSTIPATION Last administered on 01/05/17 16:40; Admin Dose 10 MG; Start 01/05/17 at 15:30 Epoetin [employer] 34183 units 10,000 units MoWeFr@17 SC Last administered on 17:51; Admin Dose 10,000 UNITS; Start 01/06/17 at 17:00 Sodium Chloride (1/2 NS) 1,000 ml @ 40 mls/hr Q24H IV Last administered on 15:02; Admin Dose 40 MLS/HR; Start 01/11/17 at 23:00 Insulin Glargine (Lantus) 10 unit DAILY@20 SC Last administered on 01/17/17 20 :46; Admin Dose 10 UNIT; Start 01/14/17 at 20:30 Lansoprazole (Prevacid) 30 mg DAILY@06 GTB Last administered on 01/18/17 05:29 ; Admin Dose 30 MG; Start 01/17/17 at 06:00 Hydralazine HCl (Apresoline) 50 mg Q8 GTB Last administered on 01/18/17 13:20 ; Admin Dose 50 MG; Start 01/17/17 at 22:00 ABBY RAMOS MD January 18, 2017 15:34
[2017-01-18] MEDS: EPOETIN 10000 UNITS/ML (NON ESRD/NON ONCOLOGY) SC SCH (17:56)
[2017-01-18 20:31] VITALS: BP 157/72; RESP 18
[2017-01-18] MEDS: INSULIN GLARGINE [LANtus] 3 ML PEN SC SCH (20:47)
[2017-01-18] MEDS: TAMSULOSIN (SR) 0.4 MG CAP PO SCH (20:47)
[2017-01-18] MEDS: ATORVASTATIN 20 MG TAB PO SCH (20:47)
[2017-01-19] MEDS: INSULIN ASPART [NOVOLOG] 3 ML PEN SC SCH ×4 (00:09→18:13)
[2017-01-19] MEDS: ALBUTEROL/IPRATROPIUM (NEB) 3 ML AMP HHN SCH ×6 (01:16→20:55)
[2017-01-19] MEDS: ONDANSETRON 4 MG TAB GTB SCH ×3 (05:10→21:15)
[2017-01-19] MEDS: LANSOPRAZOLE 30 MG CAP GTB SCH (05:10)
[2017-01-19 07:51] LABS: CALCIUM 8.5 mg/dl (8.4-10.2); CREATININE 2.35 mg/dl (0.61-1.24); POTASSIUM 4.6 mmol/L (3.5-5.1)
[2017-01-19 08:00] VITALS: BP 125/60; RESP 18
[2017-01-19] MEDS: DOCUSATE SODIUM 10 MG/ML (10ML CUP) GTB SCH ×2 (08:58→20:43)
[2017-01-19] MEDS: POLYETHYLENE GLYCOL 17 GM PACKET PO SCH (08:58)
[2017-01-19] MEDS: MEGESTROL 40 MG TAB PO SCH ×2 (08:58→20:43)
[2017-01-19] MEDS: GABAPENTIN 300 MG CAP PO SCH (09:02)
[2017-01-19] MEDS: AMIODARONE 200 MG TAB PO SCH (09:02)
[2017-01-19 15:00] VITALS: BP 145/65
--- NOTE | 2017-01-19 17:01 | PN ---
Date/Time of Note Date/Time of Note DATE: 01/19/17 TIME: 16:58 Assessment/Plan VTE Prophylaxis VTE Prophylaxis Intervention: SCD's Lines/Catheters IV [facility]ter Type (from [facility]): Peripheral IV Urinary Cath still in place: Yes Reason Cath still needed: urinary retention Assessment/Plan Chief Complaint/Hosp Course Patient remains hemodynamically stable, tolerates G-tube feeding well, awaits for [facility]dc facility bed ASSESSMENT AND PLAN: - Chronic kidney disease. Dr. Cheema is following in nephrology consultation. Continue to monitor BUN and creatinine. - Failure to thrive with dysphagia status post G-tube placement. Continue tube feeding, monitor residual. - Anemia of chronic disease continue Epogen - S/p Healthcare-acquired pneumonia versus aspiration. - Status post metabolic encephalopathy. - Severe protein-calorie malnutrition with albumin 2.9 on admission. Continue G -tube feeding. - Diabetes mellitus. Continue Lantus and NovoLog. - Diastolic congestive heart failure. Continue to monitor intake and output. - Hypertension. Continue hydralazine. - Hyperlipidemia. Continue statins. - Urinary retention with Flores catheter. - History of cerebrovascular accident. Continue Protonix for peptic ulcer disease prophylaxis and sequential compression device for deep venous thrombosis prophylaxis. Further recommendations based on clinical course. Plan of care discussed with Dr. Patel. Problems: Exam/Review of Systems Vital Signs Vitals Vital Signs Date Time Temp Pulse Resp B/P Pulse Ox O2 Delivery O2 Flow Rate FiO2 01/19/17 16:37 78 18 99 21 01/19/17 15:00 145/65 01/19/17 08:00 98.6 Intake and Output 01/18/17 01/18/17 01/19/17 14:59 22:59 06:59 Intake Total 2020 ml 1260 ml Output Total 700 ml 1500 ml Balance 1320 ml -240 ml Exam Constitutional: alert Psych: confusion Head: normocephalic Neck: supple Respiratory: clear to auscultation Cardiovascular: regular rate and rhythm Gastrointestinal: soft Genitourinary - Male: other (Flores catheter) Extremities: normal pulses Neurological: confused Skin: other (Stage II sacral) Results Result Diagram: 01/18/17 0443 01/19/17 0707 Results 24 hrs Laboratory Tests Test 01/18/17 17:58 01/18/17 20:45 01/18/17 23:54 01/19/17 05:07 Bedside Glucose 215 146 166 161 Test 01/19/17 05:49 01/19/17 07:07 01/19/17 12:16 Lab Scanned Report BLOOD TRANSFUSION Sodium Level 133 L Potassium Level 4.6 Chloride Level 109 Carbon Dioxide Level 20 L Anion Gap 9 # Blood Urea Nitrogen 52 H Creatinine 2.35 H Glucose Level 148 Calcium Level 8.5 Bedside Glucose 170 Medications Medications Current Medications Acetaminophen (Tylenol Tab) 650 mg Q6H PRN PO PAIN AND OR ELEVATED TEMP; Start 12/29/16 at 10:30; Status Future Hold Miscellaneous Information 1 ea NOTE XX ; Start 12/29/16 at 10:30 Glucose (Glutose) 15 gm Q15M PRN PO DECREASED GLUCOSE; Start 12/29/16 at 10:30 Glucose (Glutose) 22.5 gm Q15M PRN PO DECREASED GLUCOSE; Start 12/29/16 at 10:30 Dextrose (D50w Syringe) 25 ml Q15M PRN IV DECREASED GLUCOSE; Start 12/29/16 at 10:30 Dextrose (D50w Syringe) 50 ml Q15M PRN IV DECREASED GLUCOSE; Start 12/29/16 at 10:30 Glucagon (Glucagen) 1 mg Q15M PRN IM DECREASED GLUCOSE; Start 12/29/16 at 10:30 Glucose (Glutose) 15 gm Q15M PRN BUCCAL DECREASED GLUCOSE; Start 12/29/16 at 10: 30 Hydralazine HCl (Apresoline) 10 mg Q6H PRN IV sbp greater than 165 Last administered on 01/06/17 20:09; Admin Dose 10 MG; Start 12/29/16 at 10:30 Amiodarone HCl (Cordarone) 100 mg DAILY PO Last administered on 01/19/17 09:02 ; Admin Dose 100 MG; Start 12/29/16 at 12:00 Gabapentin (Neurontin) 300 mg DAILY PO Last administered on 01/19/17 09:02; Admin Dose 300 MG; Start 12/29/16 at 12:00 Megestrol Acetate (Megace) 40 mg BID PO Last administered on 01/19/17 08:58; Admin Dose 40 MG; Start 12/29/16 at 12:00 Tamsulosin HCl (Flomax) 0.4 mg HS PO Last administered on 01/18/17 20:47; Admin Dose 0.4 MG; Start 12/29/16 at 21:00 Atorvastatin Calcium (Lipitor) 20 mg DAILY@21 PO Last administered on 20:47; Admin Dose 20 MG; Start 12/29/16 at 21:00 Docusate Sodium (Colace Liquid Cup) 100 mg Q12 GTB Last administered on 08:58; Admin Dose 100 MG; Start 12/31/16 at 21:59 Insulin Aspart (Novolog Insulin Pen) NOVOLOG *MILD* ALGORI... Q6 SC Last administered on 01/19/17 12:25; Admin Dose 1 UNIT; Start 01/03/17 at 00:00 Ondansetron HCl (Zofran Tab) 4 mg Q8 GTB Last administered on 01/19/17 14:58; Admin Dose 4 MG; Start 01/02/17 at 22:50 Acetaminophen (Tylenol Liquid) 650 mg Q6 PRN GTB PAIN AND OR ELEVATED TEMP Last administered on 01/09/17 21:27; Admin Dose 650 MG; Start 01/02/17 at 23:00 Polyethylene Glycol (Miralax) 17 gm DAILY PO Last administered on 01/19/17 08: 58; Admin Dose 17 GM; Start 01/06/17 at 09:00 Bisacodyl (Dulcolax Supp) 10 mg DAILY PRN [place] CONSTIPATION Last administered on 01/05/17 16:40; Admin Dose 10 MG; Start 01/05/17 at 15:30 Epoetin [employer] 49792 units 10,000 units MoWeFr@17 SC Last administered on 17:56; Admin Dose 10,000 UNITS; Start 01/06/17 at 17:00 Sodium Chloride (1/2 NS) 1,000 ml @ 40 mls/hr Q24H IV Last administered on 15:02; Admin Dose 40 MLS/HR; Start 01/11/17 at 23:00 Insulin Glargine (Lantus) 10 unit DAILY@20 SC Last administered on 01/18/17 20 :47; Admin Dose 10 UNIT; Start 01/14/17 at 20:30 Lansoprazole (Prevacid) 30 mg DAILY@06 GTB Last administered on 01/19/17 05:10 ; Admin Dose 30 MG; Start 01/17/17 at 06:00 Hydralazine HCl (Apresoline) 50 mg Q8 GTB Last administered on 01/19/17t 14:58 ; Admin Dose 50 MG; Start 01/17/17 at 22:00 GEOVANY IBARRA January 19, 2017 17:01
[2017-01-19 20:39] VITALS: BP 135/60; RESP 18
[2017-01-19] MEDS: ATORVASTATIN 20 MG TAB PO SCH (20:43)
[2017-01-19] MEDS: TAMSULOSIN (SR) 0.4 MG CAP PO SCH (20:43)
[2017-01-19] MEDS: SOD CHLORIDE 0.45% 1,000 ML IV SCH (20:44)
[2017-01-19] MEDS: INSULIN GLARGINE [LANtus] 3 ML PEN SC SCH (20:45)
--- NOTE | 2017-01-19 23:39 | CONS ---
Date/Time of Note Date/Time of Note DATE: 01/19/17 TIME: 23:39 Assessment/Plan Assessment/Plan Chief Complaint/Hosp Course ckd htn cad cva ashd hyperkalemia better ashd high wbc plan iv fluid CK BMP renal stable Problems: Consultation Date/Type/Reason Admit Date/Time December 29, 2016 at 04:03 Type of Consultation: RENAL 24 HR Interval Summary Constitutional: No chills Exam/Review of Systems Vital Signs Vitals Vital Signs Date Time Temp Pulse Resp B/P Pulse Ox O2 Delivery O2 Flow Rate FiO2 01/19/17 20:55 75 18 98 21 01/19/17 20:39 98.2 135/60 Intake and Output 01/18/17 01/18/17 01/19/17 15:00 23:00 07:00 Intake Total 250 ml 1770 ml 1260 ml Output Total 700 ml 1500 ml Balance 250 ml 1070 ml -240 ml Exam Respiratory: clear to auscultation Cardiovascular: regular rate and rhythm Gastrointestinal: other (peg+), soft Results Result Diagram: 01/18/17 0443 01/19/17 0707 Results 24 hrs Laboratory Tests Test 01/18/17 23:54 01/19/17 05:07 01/19/17 05:49 01/19/17 07:07 Bedside Glucose 166 161 Lab Scanned Report BLOOD TRANSFUSION Sodium Level 133 L Potassium Level 4.6 Chloride Level 109 Carbon Dioxide Level 20 L Anion Gap 9 # Blood Urea Nitrogen 52 H Creatinine 2.35 H Glucose Level 148 Calcium Level 8.5 Test 01/19/17 12:16 01/19/17 18:12 01/19/17 20:42 Bedside Glucose 170 167 152 Medications Medications Current Medications Acetaminophen (Tylenol Tab) 650 mg Q6H PRN PO PAIN AND OR ELEVATED TEMP; Start 12/29/16 at 10:30; Status Future Hold Miscellaneous Information 1 ea NOTE XX ; Start 12/29/16 at 10:30 Glucose (Glutose) 15 gm Q15M PRN PO DECREASED GLUCOSE; Start 12/29/16 at 10:30 Glucose (Glutose) 22.5 gm Q15M PRN PO DECREASED GLUCOSE; Start 12/29/16 at 10:30 Dextrose (D50w Syringe) 25 ml Q15M PRN IV DECREASED GLUCOSE; Start 12/29/16 at 10:30 Dextrose (D50w Syringe) 50 ml Q15M PRN IV DECREASED GLUCOSE; Start 12/29/16 at 10:30 Glucagon (Glucagen) 1 mg Q15M PRN IM DECREASED GLUCOSE; Start 12/29/16 at 10:30 Glucose (Glutose) 15 gm Q15M PRN BUCCAL DECREASED GLUCOSE; Start 12/29/16 at 10: 30 Hydralazine HCl (Apresoline) 10 mg Q6H PRN IV sbp greater than 165 Last administered on 01/06/17 20:09; Admin Dose 10 MG; Start 12/29/16 at 10:30 Amiodarone HCl (Cordarone) 100 mg DAILY PO Last administered on 01/19/17 09:02 ; Admin Dose 100 MG; Start 12/29/16 at 12:00 Gabapentin (Neurontin) 300 mg DAILY PO Last administered on 01/19/17 09:02; Admin Dose 300 MG; Start 12/29/16 at 12:00 Megestrol Acetate (Megace) 40 mg BID PO Last administered on 01/19/17 20:43; Admin Dose 40 MG; Start 12/29/16 at 12:00 Tamsulosin HCl (Flomax) 0.4 mg HS PO Last administered on 01/19/17 20:43; Admin Dose 0.4 MG; Start 12/29/16 at 21:00 Atorvastatin Calcium (Lipitor) 20 mg DAILY@21 PO Last administered on 20:43; Admin Dose 20 MG; Start 12/29/16 at 21:00 Docusate Sodium (Colace Liquid Cup) 100 mg Q12 GTB Last administered on 20:43; Admin Dose 100 MG; Start 12/31/16 at 21:59 Insulin Aspart (Novolog Insulin Pen) NOVOLOG *MILD* ALGORI... Q6 SC Last administered on 01/19/17 18:13; Admin Dose 1 UNIT; Start 01/03/17 at 00:00 Ondansetron HCl (Zofran Tab) 4 mg Q8 GTB Last administered on 01/19/17 21:15; Admin Dose 4 MG; Start 01/02/17 at 22:50 Acetaminophen (Tylenol Liquid) 650 mg Q6 PRN GTB PAIN AND OR ELEVATED TEMP Last administered on 01/09/17 21:27; Admin Dose 650 MG; Start 01/02/17 at 23:00 Polyethylene Glycol (Miralax) 17 gm DAILY PO Last administered on 01/19/17 08: 58; Admin Dose 17 GM; Start 01/06/17 at 09:00 Bisacodyl (Dulcolax Supp) 10 mg DAILY PRN [place] CONSTIPATION Last administered on 01/05/17 16:40; Admin Dose 10 MG; Start 01/05/17 at 15:30 Epoetin [employer] 93014 units 10,000 units MoWeFr@17 SC Last administered on 17:56; Admin Dose 10,000 UNITS; Start 01/06/17 at 17:00 Sodium Chloride (1/2 NS) 1,000 ml @ 40 mls/hr Q24H IV Last administered on 20:44; Admin Dose 40 MLS/HR; Start 01/11/17 at 23:00 Insulin Glargine (Lantus) 10 unit DAILY@20 SC Last administered on 01/19/17 20 :45; Admin Dose 10 UNIT; Start 01/14/17 at 20:30 Lansoprazole (Prevacid) 30 mg DAILY@06 GTB Last administered on 01/19/17 05:10 ; Admin Dose 30 MG; Start 01/17/17 at 06:00 Hydralazine HCl (Apresoline) 50 mg Q8 GTB Last administered on 01/19/17 21:15 ; Admin Dose 50 MG; Start 01/17/17 at 22:00 ABBY RAMOS MD January 19, 2017 23:39
[2017-01-20] MEDS: INSULIN ASPART [NOVOLOG] 3 ML PEN SC SCH ×4 (00:01→17:22)
[2017-01-20] MEDS: ALBUTEROL/IPRATROPIUM (NEB) 3 ML AMP HHN SCH ×6 (00:17→20:01)
[2017-01-20] MEDS: ONDANSETRON 4 MG TAB GTB SCH ×3 (05:17→21:06)
[2017-01-20] MEDS: LANSOPRAZOLE 30 MG CAP GTB SCH (05:17)
[2017-01-20 06:48] LABS: ADD SCAN DIFF NO
[2017-01-20 06:52] LABS: BASOPHIL # 0.1 10^3/ul (0.0-0.1); BASOPHILS % 1.2 % (0.0-2.0); EOSINOPHILS # 0.9 10^3/ul (0.0-0.5); EOSINOPHILS % 8.3 % (0.0-7.0); HEMATOCRIT 29.7 % (42.0-52.0); HEMOGLOBIN 9.6 g/dl (14.0-18.0); LYMPHOCYTES # 2.5 10^3/ul (0.8-2.9); LYMPHOCYTES % 22.6 % (15.0-51.0); MEAN CORPUSCULAR HEMOGLOBIN 28.7 pg (29.0-33.0); MEAN CORPUSCULAR HGB CONC 32.3 g/dl (32.0-37.0); MEAN CORPUSCULAR VOLUME 88.9 fl (82.0-101.0); MEAN PLATELET VOLUME 10.6 fl (7.4-10.4); MONOCYTE # 0.8 10^3/ul (0.3-0.9); NEUTROPHIL # 6.8 10^3/ul (1.6-7.5); NEUTROPHILS % 60.5 % (39.0-77.0); PLATELET COUNT 473 10^3/UL (140-415); RED BLOOD COUNT 3.34 10^6/ul (4.70-6.10); RED CELL DISTRIBUTION WIDTH 18.7 % (11.5-14.5); WHITE BLOOD COUNT 11.3 10^3/ul (4.8-10.8)
[2017-01-20 07:15] VITALS: BP 137/65; RESP 16
[2017-01-20 07:23] LABS: CALCIUM 8.4 mg/dl (8.4-10.2); CREATININE 2.46 mg/dl (0.61-1.24); POTASSIUM 4.8 mmol/L (3.5-5.1)
[2017-01-20] MEDS: POLYETHYLENE GLYCOL 17 GM PACKET PO SCH (09:00)
[2017-01-20] MEDS: DOCUSATE SODIUM 10 MG/ML (10ML CUP) GTB SCH (09:00)
[2017-01-20] MEDS: AMIODARONE 200 MG TAB PO SCH (09:15)
[2017-01-20] MEDS: MEGESTROL 40 MG TAB PO SCH ×2 (09:17→21:06)
[2017-01-20] MEDS: GABAPENTIN 300 MG CAP PO SCH (09:17)
--- NOTE | 2017-01-20 14:20 | PN ---
Date/Time of Note Date/Time of Note DATE: 01/20/17 TIME: 14:16 Assessment/Plan VTE Prophylaxis VTE Prophylaxis Intervention: SCD's Lines/Catheters [facility] ([facility] Peripheral IV Urinary Cath still in place: Yes Reason Cath still needed: urinary retention Assessment/Plan Chief Complaint/Hosp Course No acute events overnight patient looks comfortable, awaits for senior care facility bed, discussed with case management not available today. ASSESSMENT AND PLAN: - Chronic kidney disease. Dr. Cheema is following in nephrology consultation. Continue to monitor BUN and creatinine. - Failure to thrive with dysphagia, status post G-tube placement. Continue tube feeding, monitor residual. - Anemia of chronic disease, continue Epogen - S/p Healthcare-acquired pneumonia versus aspiration. - Status post metabolic encephalopathy. - Severe protein-calorie malnutrition with albumin 2.9 on admission. Continue G-tube feeding. - Diabetes mellitus. Continue Lantus and NovoLog. - Diastolic congestive heart failure. Continue to monitor intake and output. - Hypertension. Continue hydralazine. - Hyperlipidemia. Continue statins. - Urinary retention with Flores catheter. - History of cerebrovascular accident. Continue Protonix for peptic ulcer disease prophylaxis and sequential compression device for deep venous thrombosis prophylaxis. Further recommendations based on clinical course. Plan of care discussed with Dr. Patel. Problems: Exam/Review of Systems Vital Signs Vitals Vital Signs Date Time Temp Pulse Resp B/P Pulse Ox O2 Delivery O2 Flow Rate FiO2 01/20/17 12:36 72 14 98 21 01/20/17 07:15 97.7 137/65 Intake and Output 01/19/17 01/19/17 01/20/17 15:00 23:00 07:00 Intake Total 1900 ml 1180 ml Output Total 800 ml 1300 ml Balance 1100 ml -120 ml Exam Constitutional: alert Psych: confusion Head: normocephalic Neck: supple Respiratory: clear to auscultation Cardiovascular: regular rate and rhythm Gastrointestinal: soft Genitourinary - Male: other (Flores catheter) Extremities: normal pulses Neurological: confused Skin: other (Stage II sacral) Results Result Diagram: 01/20/17 0520 01/20/17 0520 Results 24 hrs Laboratory Tests Test 01/19/17 18:12 01/19/17 20:42 01/19/17 23:59 01/20/17 05:15 Bedside Glucose 167 152 143 148 Test 01/20/17 05:20 01/20/17 11:13 White Blood Count 11.3 H Red Blood Count 3.34 L Hemoglobin 9.6 L Hematocrit 29.7 L Mean Corpuscular Volume 88.9 Mean Corpuscular Hemoglobin 28.7 L Mean Corpuscular Hemoglobin Concent 32.3 Red Cell Distribution Width 18.7 H Platelet Count 473 H Mean Platelet Volume 10.6 H Neutrophils % 60.5 Lymphocytes % 22.6 Monocytes % 7.0 Eosinophils % 8.3 H Basophils % 1.2 Nucleated Red Blood Cells % 0.0 Neutrophils # 6.8 Lymphocytes # 2.5 Monocytes # 0.8 Eosinophils # 0.9 H Basophils # 0.1 Nucleated Red Blood Cells # 0.0 Sodium Level 133 L Potassium Level 4.8 Chloride Level 110 Carbon Dioxide Level 20 L Anion Gap 8 Blood Urea Nitrogen 53 H Creatinine 2.46 H Glucose Level 138 Calcium Level 8.4 Bedside Glucose 136 Medications Medications Current Medications Acetaminophen (Tylenol Tab) 650 mg Q6H PRN PO PAIN AND OR ELEVATED TEMP; Start 12/29/16 at 10:30; Status Future Hold Miscellaneous Information 1 ea NOTE XX ; Start 12/29/16 at 10:30 Glucose (Glutose) 15 gm Q15M PRN PO DECREASED GLUCOSE; Start 12/29/16 at 10:30 Glucose (Glutose) 22.5 gm Q15M PRN PO DECREASED GLUCOSE; Start 12/29/16 at 10:30 Dextrose (D50w Syringe) 25 ml Q15M PRN IV DECREASED GLUCOSE; Start 12/29/16 at 10:30 Dextrose (D50w Syringe) 50 ml Q15M PRN IV DECREASED GLUCOSE; Start 12/29/16 at 10:30 Glucagon (Glucagen) 1 mg Q15M PRN IM DECREASED GLUCOSE; Start 12/29/16 at 10:30 Glucose (Glutose) 15 gm Q15M PRN BUCCAL DECREASED GLUCOSE; Start 12/29/16 at 10: 30 Hydralazine HCl (Apresoline) 10 mg Q6H PRN IV sbp greater than 165 Last administered on 01/06/17 20:09; Admin Dose 10 MG; Start 12/29/16 at 10:30 Amiodarone HCl (Cordarone) 100 mg DAILY PO Last administered on 01/20/17 09:15 ; Admin Dose 100 MG; Start 12/29/16 at 12:00 Gabapentin (Neurontin) 300 mg DAILY PO Last administered on 01/20/17 09:17; Admin Dose 300 MG; Start 12/29/16 at 12:00 Megestrol Acetate (Megace) 40 mg BID PO Last administered on 01/20/17 09:17; Admin Dose 40 MG; Start 12/29/16 at 12:00 Tamsulosin HCl (Flomax) 0.4 mg HS PO Last administered on 01/19/17 20:43; Admin Dose 0.4 MG; Start 12/29/16 at 21:00 Atorvastatin Calcium (Lipitor) 20 mg DAILY@21 PO Last administered on 20:43; Admin Dose 20 MG; Start 12/29/16 at 21:00 Docusate Sodium (Colace Liquid Cup) 100 mg Q12 GTB Last administered on 20:43; Admin Dose 100 MG; Start 12/31/16 at 21:59 Insulin Aspart (Novolog Insulin Pen) NOVOLOG *MILD* ALGORI... Q6 SC Last administered on 01/20/17 05:19; Admin Dose 1 UNIT; Start 01/03/17 at 00:00 Ondansetron HCl (Zofran Tab) 4 mg Q8 GTB Last administered on 01/20/17 13:50; Admin Dose 4 MG; Start 01/02/17 at 22:50 Acetaminophen (Tylenol Liquid) 650 mg Q6 PRN GTB PAIN AND OR ELEVATED TEMP Last administered on 01/09/17 21:27; Admin Dose 650 MG; Start 01/02/17 at 23:00 Polyethylene Glycol (Miralax) 17 gm DAILY PO Last administered on 01/19/17 08: 58; Admin Dose 17 GM; Start 01/06/17 at 09:00 Bisacodyl (Dulcolax Supp) 10 mg DAILY PRN [place] CONSTIPATION Last administered on 01/05/17 16:40; Admin Dose 10 MG; Start 01/05/17 at 15:30 Epoetin [employer] 55536 units 10,000 units MoWeFr@17 SC Last administered on 17:56; Admin Dose 10,000 UNITS; Start 01/06/17 at 17:00 Sodium Chloride (1/2 NS) 1,000 ml @ 40 mls/hr Q24H IV Last administered on 20:44; Admin Dose 40 MLS/HR; Start 01/11/17 at 23:00 Insulin Glargine (Lantus) 10 unit DAILY@20 SC Last administered on 01/19/17 20 :45; Admin Dose 10 UNIT; Start 01/14/17 at 20:30 Lansoprazole (Prevacid) 30 mg DAILY@06 GTB Last administered on 01/20/17 05:17 ; Admin Dose 30 MG; Start 01/17/17 at 06:00 Hydralazine HCl (Apresoline) 50 mg Q8 GTB Last administered on 01/20/17 13:50 ; Admin Dose 50 MG; Start 01/17/17 at 22:00 GEOVANY IBARRA January 20, 2017 14:20
[2017-01-20] MEDS: EPOETIN 10000 UNITS/ML (NON ESRD/NON ONCOLOGY) SC SCH (17:17)
--- NOTE | 2017-01-20 19:37 | CONS ---
Date/Time of Note Date/Time of Note DATE: 01/20/17 TIME: 19:36 Assessment/Plan Assessment/Plan Chief Complaint/Hosp Course ckd htn cad cva ashd hyperkalemia better ashd high wbc plan iv fluid CK BMP renal stable placement issue Problems: Consultation Date/Type/Reason Admit Date/Time December 29, 2016 at 04:03 Type of Consultation: RENAL 24 HR Interval Summary Constitutional: no complaints Exam/Review of Systems Vital Signs Vitals Vital Signs Date Time Temp Pulse Resp B/P Pulse Ox O2 Delivery O2 Flow Rate FiO2 01/20/17 16:23 76 18 97 21 01/20/17 07:15 97.7 137/65 Intake and Output 01/19/17 01/19/17 01/20/17 15:00 23:00 07:00 Intake Total 1900 ml 1180 ml Output Total 800 ml 1300 ml Balance 1100 ml -120 ml Exam Respiratory: clear to auscultation Cardiovascular: regular rate and rhythm Gastrointestinal: soft Results Result Diagram: 01/20/17 0520 01/20/17 0520 Results 24 hrs Laboratory Tests Test 01/19/17 20:42 01/19/17 23:59 01/20/17 05:15 01/20/17 05:20 Bedside Glucose 152 143 148 White Blood Count 11.3 H Red Blood Count 3.34 L Hemoglobin 9.6 L Hematocrit 29.7 L Mean Corpuscular Volume 88.9 Mean Corpuscular Hemoglobin 28.7 L Mean Corpuscular Hemoglobin Concent 32.3 Red Cell Distribution Width 18.7 H Platelet Count 473 H Mean Platelet Volume 10.6 H Neutrophils % 60.5 Lymphocytes % 22.6 Monocytes % 7.0 Eosinophils % 8.3 H Basophils % 1.2 Nucleated Red Blood Cells % 0.0 Neutrophils # 6.8 Lymphocytes # 2.5 Monocytes # 0.8 Eosinophils # 0.9 H Basophils # 0.1 Nucleated Red Blood Cells # 0.0 Sodium Level 133 L Potassium Level 4.8 Chloride Level 110 Carbon Dioxide Level 20 L Anion Gap 8 Blood Urea Nitrogen 53 H Creatinine 2.46 H Glucose Level 138 Calcium Level 8.4 Test 01/20/17 11:13 01/20/17 17:20 Bedside Glucose 136 221 H Medications Medications Current Medications Acetaminophen (Tylenol Tab) 650 mg Q6H PRN PO PAIN AND OR ELEVATED TEMP; Start 12/29/16 at 10:30; Status Future Hold Miscellaneous Information 1 ea NOTE XX ; Start 12/29/16 at 10:30 Glucose (Glutose) 15 gm Q15M PRN PO DECREASED GLUCOSE; Start 12/29/16 at 10:30 Glucose (Glutose) 22.5 gm Q15M PRN PO DECREASED GLUCOSE; Start 12/29/16 at 10:30 Dextrose (D50w Syringe) 25 ml Q15M PRN IV DECREASED GLUCOSE; Start 12/29/16 at 10:30 Dextrose (D50w Syringe) 50 ml Q15M PRN IV DECREASED GLUCOSE; Start 12/29/16 at 10:30 Glucagon (Glucagen) 1 mg Q15M PRN IM DECREASED GLUCOSE; Start 12/29/16 at 10:30 Glucose (Glutose) 15 gm Q15M PRN BUCCAL DECREASED GLUCOSE; Start 12/29/16 at 10: 30 Hydralazine HCl (Apresoline) 10 mg Q6H PRN IV sbp greater than 165 Last administered on 01/06/17 20:09; Admin Dose 10 MG; Start 12/29/16 at 10:30 Amiodarone HCl (Cordarone) 100 mg DAILY PO Last administered on 01/20/17 09:15 ; Admin Dose 100 MG; Start 12/29/16 at 12:00 Gabapentin (Neurontin) 300 mg DAILY PO Last administered on 01/20/17 09:17; Admin Dose 300 MG; Start 12/29/16 at 12:00 Megestrol Acetate (Megace) 40 mg BID PO Last administered on 01/20/17 09:17; Admin Dose 40 MG; Start 12/29/16 at 12:00 Tamsulosin HCl (Flomax) 0.4 mg HS PO Last administered on 01/19/17 20:43; Admin Dose 0.4 MG; Start 12/29/16 at 21:00 Atorvastatin Calcium (Lipitor) 20 mg DAILY@21 PO Last administered on 20:43; Admin Dose 20 MG; Start 12/29/16 at 21:00 Insulin Aspart (Novolog Insulin Pen) NOVOLOG *MILD* ALGORI... Q6 SC Last administered on 01/20/17 17:22; Admin Dose 3 UNIT; Start 01/03/17 at 00:00 Ondansetron HCl (Zofran Tab) 4 mg Q8 GTB Last administered on 01/20/17 13:50; Admin Dose 4 MG; Start 01/02/17 at 22:50 Acetaminophen (Tylenol Liquid) 650 mg Q6 PRN GTB PAIN AND OR ELEVATED TEMP Last administered on 01/09/17 21:27; Admin Dose 650 MG; Start 01/02/17 at 23:00 Bisacodyl (Dulcolax Supp) [address] CONSTIPATION Last administered on 01/05/17 16:40; Admin Dose 10 MG; Start 01/05/17 at 15:30 Epoetin [employer] 93425 units 10,000 units MoWeFr@17 SC Last administered on 17:17; Admin Dose 10,000 UNITS; Start 01/06/17 at 17:00 Sodium Chloride (1/2 NS) 1,000 ml @ 40 mls/hr Q24H IV Last administered on 20:44; Admin Dose 40 MLS/HR; Start 01/11/17 at 23:00 Insulin Glargine (Lantus) 10 unit DAILY@20 SC Last administered on 01/19/17 20 :45; Admin Dose 10 UNIT; Start 01/14/17 at 20:30 Lansoprazole (Prevacid) 30 mg DAILY@06 GTB Last administered on 01/20/17 05:17 ; Admin Dose 30 MG; Start 01/17/17 at 06:00 Hydralazine HCl (Apresoline) 50 mg Q8 GTB Last administered on 01/20/17 13:50 ; Admin Dose 50 MG; Start 01/17/17 at 22:00 ABBY RAMOS MD January 20, 2017 19:37
[2017-01-20 20:00] VITALS: BP 151/68; RESP 19
[2017-01-20] MEDS: INSULIN GLARGINE [LANtus] 3 ML PEN SC SCH (21:05)
[2017-01-20] MEDS: TAMSULOSIN (SR) 0.4 MG CAP PO SCH (21:06)
[2017-01-20] MEDS: SOD CHLORIDE 0.45% 1,000 ML IV SCH (21:06)
[2017-01-20] MEDS: ATORVASTATIN 20 MG TAB PO SCH (21:06)
[2017-01-21] MEDS: ALBUTEROL/IPRATROPIUM (NEB) 3 ML AMP HHN SCH ×5 (00:32→16:56)
[2017-01-21] MEDS: LANSOPRAZOLE 30 MG CAP GTB SCH (05:12)
[2017-01-21] MEDS: ONDANSETRON 4 MG TAB GTB SCH ×2 (05:12→14:00)
[2017-01-21] MEDS: INSULIN ASPART [NOVOLOG] 3 ML PEN SC SCH ×3 (05:14→11:52)
[2017-01-21 05:47] LABS: CALCIUM 8.5 mg/dl (8.4-10.2); CREATININE 2.48 mg/dl (0.61-1.24); POTASSIUM 4.8 mmol/L (3.5-5.1)
[2017-01-21 07:50] VITALS: BP 125/64; RESP 20
[2017-01-21] MEDS: GABAPENTIN 300 MG CAP PO SCH (08:50)
[2017-01-21] MEDS: MEGESTROL 40 MG TAB PO SCH (08:50)
[2017-01-21] MEDS: AMIODARONE 200 MG TAB PO SCH (08:51)
[2017-01-21 15:50] VITALS: BP 140/63; PULSE 90
[2017-01-21] MEDS ORDERED: INSULIN ASPART [NOVOLOG] 3 ML PEN SC SCH (17:00)
--- NOTE | 2017-01-21 19:13 | DS ---
Date/Time of Note Date/Time of Note DATE: 01/21/17 TIME: 19:13 Discharge Summary Admission/Discharge Info Admit Date/Time December 29, 2016 at 04:03 Discharge Date/Time Hospital Course ckd htn cad cva ashd hyperkalemia better ashd high wbc plan iv fluid CK BMP renal stable placement issue Home Meds Reported Medications Insulin Aspart* (Novolog Insulin Pen*) 100 Unit/Ml Soln, 0 SC .SLIDING SCALE AC for DIABETES, EA INJECT PER SLIDING SCALE: IF 150-200=1UNIT; 201-250= 2UNITS; 251-300=3UNITS; 301-350=4UNITS; 351-400=5UNITS;BG>400=6UNITS AND CALL MD, BG<70 MAY GIVE NECTAR 8oz ORANGE JUICE IF CONSCIOUS, SC BEFORE MEALS FOR DIABETES ROTATE SITE 12/29/16 Multivitamin with Minerals (Multivitamins with Minerals) 1 Each Tablet, 1 EACH PO for SUPPLEMENT, TAB 12/29/16 Ondansetron Hcl* (Ondansetron Hcl*) 4 Mg Tablet, 4 MG PO Q8 for NAUSEA AND/OR VOMITING, TAB 12/29/16 Pantoprazole* (Protonix*) 40 Mg Tablet.dr, 40 MG PO QAM for GERD W/OUT ESOPHAGITIS, TAB 12/29/16 Melatonin (Melatin) 3 Mg Tablet, 3 MG PO QHS for IMPROVE CIRCADIAN RHYTHM, TAB 12/29/16 Megestrol Acetate* (Megace*) 40 Mg Tab, 40 MG PO BID for APPETITE STIMULANT, TAB 12/29/16 Hydralazine Hcl* (Hydralazine Hcl*) 25 Mg Tab, 25 MG PO Q8 Y for HYPERTENSION , #60 TAB TK 1 TABLET Q8 RELATED TO ESSENTIAL (PRIMARY) HYPERTENSION HOLD FOR SBP <110,HR <60 12/29/16 Tamsulosin Hcl* (Tamsulosin Hcl*) 0.4 Mg Cap.er.24h, 0.4 MG PO HS, CAP 12/29/16 Ipratropium-Albuterol (Ipratropium-Albuterol) 0.5-3 Mg/3 Ml Ampul.neb, 3 ML INHALATION Q4 for SHORTNESS OF BREATH, #30 VIAL 12/29/16 Docusate Sodium* (Docusate Sodium*) 100 Mg Capsule, 100 MG PO Q12 for CONSTIPATION, #30 CAP 12/29/16 Cranberry Extract (Cranberry) 425 Mg Capsule, 425 MG PO DAILY for UTI PROPHYLAXIS, CAP 12/29/16 Amiodarone Hcl* (Amiodarone Hcl*) 100 Mg Tablet, 100 MG PO DAILY, #30 TAB 12/29/16 Acetaminophen* (Acetaminophen*) 325 Mg Tablet, 650 MG PO Q6H, #30 TAB GIVE 2 TABS EVERY Q6H NEEDED FOR PAIN RATE 1-06/01 NTE 3GM/24 HOURS 12/29/16 Acetaminophen (Feverall) 325 Mg Supp.rect, 325 MG RC Q6H, SUPP.RECT 12/29/16 Atorvastatin* (Atorvastatin*) 40 Mg Tablet, 20 MG PO QHS for HYPERLIPIDIMIA, # 30 TAB 12/29/16 Gabapentin* (Gabapentin*) 300 Mg Capsule, 300 MG PO DAILY, #60 CAP 10/30/16 Primary Care Provider Aravind Patel MD Pending Labs Laboratory Tests Test 01/20/17 21:04 01/21/17 00:11 01/21/17 04:40 01/21/17 05:10 Bedside Glucose 155mg/dL (70-220) 110mg/dL (70-220) 147mg/dL (70-220) Sodium Level 137mmol/L (135-144) Potassium Level 4.8mmol/L (3.5-5.1) Chloride Level 114mmol/L (97-110) Carbon Dioxide Level 21mmol/L (21-31) Anion Gap 7 (8-16) Blood Urea Nitrogen 52mg/dl (7-20) Creatinine 2.48mg/dl (0.61-1.24) Glucose Level 129mg/dl (70-220) Calcium Level 8.5mg/dl (8.4-10.2) Test 01/21/17 11:51 01/21/17 16:28 Bedside Glucose 130mg/dL (70-220) 127mg/dL (70-220) MARCY WEINER Jan 21, 2017 19:13
[2017-01-21] MEDS ORDERED: INSULIN GLARGINE [LANtus] 3 ML PEN SC SCH (20:00)
== END 2017-01-21 18:52 | DRG 177 ==
LOC: E/R 01:00 → MS4 04:03 → PP2 01-03 16:06
PROVIDERS: ADMIT Internal Medicine; ATTEND Internal Medicine
PROC: 30253N1 (ICD-10-PCS; 2016-12-31)
PROC: 0DH63UZ Insertion of Feeding Device into Stomach, Percutaneous Approach (ICD-10-PCS; principal; 2016-12-31 11:30)
DX: J69.0 Pneumonitis due to inhalation of food and vomit (principal); G93.41 Metabolic encephalopathy; E43 Unspecified severe protein-calorie malnutrition; N17.9 Acute kidney failure, unspecified; L89.152 Pressure ulcer of sacral region, stage 2; I13.0 Hypertensive heart and chronic kidney disease with heart failure and stage 1 through stage 4 chronic kidney disease, or unspecified chronic kidney disease; I69.959 Hemiplegia and hemiparesis following unspecified cerebrovascular disease affecting unspecified side; I50.30 Unspecified diastolic (congestive) heart failure; I48.0 Paroxysmal atrial fibrillation; B37.49 Other urogenital candidiasis; J18.9 Pneumonia, unspecified organism; E87.5 Hyperkalemia; E11.22 Type 2 diabetes mellitus with diabetic chronic kidney disease; N18.9 Chronic kidney disease, unspecified; Z68.20 Body mass index [BMI] 20.0-20.9, adult; R13.10 Dysphagia, unspecified; Z79.4 Long term (current) use of insulin; R33.9 Retention of urine, unspecified; I44.0 Atrioventricular block, first degree; D63.8 Anemia in other chronic diseases classified elsewhere
CPT/HCPCS: 36415; 36430; 70450; 71010; 74230; 80048; 80053; 80306; 80307; 81001; 81003; 82962; 83605; 83880; 84132; 84484; 85018; 85025; 85049; 85610; 85670; 85730; 86850; 86900; 86901; 86920; 87040; 87081; 87086; 92610; 92611; 93005; 94640; 94664; 96374; 96375; 97110; 97116; 97163; 97530; C9113; J0360; J0690; J0692; J0696; J0885; J1815; J2916; J3010; J3370; J7030; J7040; P9016

== ENCOUNTER 2017-04-17 13:37 | Inpatient (IN) | payer OTHER ==
[~2017-04-17] VITALS: Ht 170.2 cm; Wt 50.3 kg
[~2017-04-17 13:37] MED LIST changes: +ACET325T45 PO; +AMIO100T4 PO; -AMLO-147 PO; -ASPI-664 PO; +ATOR40TA68 PO; -ATOR80TA75 PO; -CHOL100062 PO; -CLOP75TA27 PO; +CRAN425C2 PO; +DOCU-159 PO; +HYDR-3671 PO; +IPRA3AMP INHALATION; -LORA10TA3 PO; +MEGE40TA PO; +MELA3TAB51 PO; +MULT-105 PO; +NOVO3I SC; +ONDA4TAB95 PO; +PANT40TA3 PO; +[UNRECOGNIZED DRUG - CODE] RC
[2017-04-17] MEDS ORDERED: SOD CHLORIDE 0.9% 1,000 ML IV STA ×2 (14:06→16:38)
[2017-04-17] MEDS ORDERED: ACET-2047 GTB (14:15)
[2017-04-17] MEDS ORDERED: AMIO100T4 GTB (14:16)
[2017-04-17] MEDS ORDERED: ATOR20TA38 GTB (14:17)
[2017-04-17] MEDS ORDERED: BEN25 GTB (14:18)
[2017-04-17] MEDS ORDERED: BISA10SU75 PR (14:19)
[2017-04-17] MEDS ORDERED: CRAN425C2 GTB (14:20)
[2017-04-17] MEDS ORDERED: TAMS-14 GTB (14:21)
[2017-04-17] MEDS ORDERED: ALEN70TA30 GTB (14:22)
[2017-04-17] MEDS ORDERED: GLUC1KIT IJ (14:22)
[2017-04-17] MEDS ORDERED: HYDR-3672 GTB (14:24)
[2017-04-17] MEDS ORDERED: LANT3I SC (14:25)
[2017-04-17] MEDS ORDERED: MELA3TAB17 GTB (14:26)
[2017-04-17] MEDS ORDERED: MULT-761 GTB (14:28)
[2017-04-17] MEDS ORDERED: GABA300C GTB (14:29)
[2017-04-17] MEDS ORDERED: OMEP20CA16 GTB (14:30)
[2017-04-17 14:42] LABS: BASOPHIL # 0.1 10^3/ul (0.0-0.1); BASOPHILS % 0.8 % (0.0-2.0); EOSINOPHILS # 0.8 10^3/ul (0.0-0.5); EOSINOPHILS % 6.4 % (0.0-7.0); HEMATOCRIT 35.6 % (42.0-52.0); HEMOGLOBIN 11.2 g/dl (14.0-18.0); LYMPHOCYTES # 1.4 10^3/ul (0.8-2.9); LYMPHOCYTES % 11.7 % (15.0-51.0); MEAN CORPUSCULAR HEMOGLOBIN 26.7 pg (29.0-33.0); MEAN CORPUSCULAR HGB CONC 31.5 g/dl (32.0-37.0); MEAN PLATELET VOLUME 12.7 fl (7.4-10.4); MONOCYTE # 0.9 10^3/ul (0.3-0.9); MONOCYTES % 7.1 % (0.0-11.0); NEUTROPHILS % 73.4 % (39.0-77.0); PLATELET COUNT 311 10^3/UL (140-415); RED BLOOD COUNT 4.19 10^6/ul (4.70-6.10); RED CELL DISTRIBUTION WIDTH 18.7 % (11.5-14.5); WHITE BLOOD COUNT 12.3 10^3/ul (4.8-10.8)
--- NOTE | 2017-04-17 14:50 | RADRPT ---
PROCEDURE: XR Chest 1 View. CLINICAL INDICATION: Shortness of breath. TECHNIQUE: AP view of the chest was obtained. COMPARISON: January 07, 2017 FINDINGS: The heart size is within normal limits. Calcified atherosclerosis is noted in the aorta. The lungs are hypoinflated. Elevated right hemidiaphragm is observed. No consolidations are identified. No p neumothorax is seen. Osseous structures are intact. IMPRESSION: Calcified atherosclerosis in the aorta. Elevated right hemidiaphragm. Hypoinflated, clear lungs. RPTAT: AA .Lance Barcenas MD, MD Date Time Electronically viewed and signed by .Lance Barcenas MD, on 04/17/2017 14:49 .P/
[2017-04-17 14:57] LABS: INR 0.96; PROTIME 12.8 Sec (12.2-14.2)
[2017-04-17 14:58] LABS: PARTIAL THROMBOPLASTIN TIME 34.3 Sec (25.0-35.0)
[2017-04-17 15:26] LABS: TROPONIN-I 0.016 ng/ml (0.00-0.12)
--- NOTE | 2017-04-17 15:46 | ERA ---
ER Documentation Chief Complaint Date/Time DATE: 04/17/17 TIME: 15:38 Chief Complaint GEN WEAKNESS SINCE THIS MORNING. NO TRAUMA NO NEURO CHANGES PER FAM HPI This is a 72-year-old male that presents to the emergency department with a known history of blindness, able to perceive light secondary to complications from diabetes. He also has a history of chronic kidney disease hypertension and a PEG tube. The patient's of a remote history of hematemesis and presents to the emergency department today complaining of dizziness upon awakening this morning roughly 5 hours prior to arrival. He normally ambulates with a walker but indicated he felt too weak to stand. He denied a headache. He has had no fevers or shaking no chills. He has an indwelling Flores catheter that was changed roughly 1 month ago. He also has a PEG tube. There is been no coughing choking or gagging episode. No antipyretics were given prior to arrival. The patient has not had any recent hospitalizations. There has been no shortness of breath at rest or exertion. ROS All systems reviewed and are negative except as per history of present illness. Medications Home Meds Reported Medications Omeprazole* (Omeprazole*) 20 Mg Capsule.dr, 20 MG GTB DAILY, #30 CAP 04/17/17 Gabapentin* (Neurontin*) 300 Mg Capsule, 300 MG GTB DAILY, #60 CAP 04/17/17 Multivitamin (MULTI VITAMIN DAILY) 1 Each Tablet, 1 TAB GTB DAILY, TAB 04/17/17 Melatonin (Melatonin) 3 Mg Tablet.sa, 3 MG GTB HS, TAB.SA 04/17/17 Insulin Glargine* (Lantus*) 100 Unit/Ml Soln, 20 UNIT SC QHS, #1 VIAL 04/17/17 Hydralazine Hcl* (Hydralazine Hcl*) 50 Mg Tab, 50 MG GTB Q8 Y for ELEVATED BLOOD PRESSURE, #90 TAB HOLD FOR SBP BELOW 110 HR BELOW 60 04/17/17 Glucagon,Human Recombinant (Glucagon Emergency Kit) 1 Mg Kit, 1 MG IJ PRN, KIT 04/17/17 Alendronate Sodium* (Fosamax*) 70 Mg Tablet, 70 MG GTB EVERY WEDNESDAY, #4 TAB 04/17/17 Tamsulosin Hcl* (Flomax*) 0.4 Mg Cap.er.24h, 0.4 MG GTB DAILY, CAP 04/17/17 Cranberry Extract (Cranberry) 425 Mg Capsule, 425 MG GTB DAILY, CAP 04/17/17 Bisacodyl* (Bisacodyl*) 10 Mg Supp, 10 MG KY Q24H for CONSTIPATION, SUPP 04/17/17 Diphenhydramine Hcl* (Benadryl*) 25 Mg Cap, 25 MG GTB Q6H Y for ITCHING, CAP 04/17/17 Atorvastatin Calcium* (Atorvastatin Calcium*) 20 Mg Tablet, 20 MG GTB QHS, #30 TAB 04/17/17 Amiodarone Hcl* (Amiodarone Hcl*) 100 Mg Tablet, 100 MG GTB DAILY, #30 TAB 04/17/17 Acetaminophen* (Acetaminophen*) 650 Mg Tablet, 650 MG GTB Q6H Y for PAIN AND OR ELEVATED TEMP, #30 TAB 04/17/17 Insulin Aspart* (Novolog Insulin Pen*) 100 Unit/Ml Soln, 0 SC .SLIDING SCALE AC for DIABETES, EA INJECT PER SLIDING SCALE: IF 150-200=1UNIT; 201-250= 2UNITS; 251-300=3UNITS; 301-350=4UNITS; 351-400=5UNITS;BG>400=6UNITS AND CALL MD, BG<70 MAY GIVE NECTAR 8oz ORANGE JUICE IF CONSCIOUS, SC BEFORE MEALS FOR DIABETES ROTATE SITE 12/29/16 Discontinued Reported Medications Multivitamin with Minerals (Multivitamins with Minerals) 1 Each Tablet, 1 EACH PO for SUPPLEMENT, TAB 12/29/16 Ondansetron Hcl* (Ondansetron Hcl*) 4 Mg Tablet, 4 MG PO Q8 for NAUSEA AND/OR VOMITING, TAB 12/29/16 Pantoprazole* (Protonix*) 40 Mg Tablet.dr, 40 MG PO QAM for GERD W/OUT ESOPHAGITIS, TAB 12/29/16 Melatonin (Melatin) 3 Mg Tablet, 3 MG PO QHS for IMPROVE CIRCADIAN RHYTHM, TAB 12/29/16 Megestrol Acetate* (Megace*) 40 Mg Tab, 40 MG PO BID for APPETITE STIMULANT, TAB 12/29/16 Hydralazine Hcl* (Hydralazine Hcl*) 25 Mg Tab, 25 MG PO Q8 Y for HYPERTENSION , #60 TAB TK 1 TABLET Q8 RELATED TO ESSENTIAL (PRIMARY) HYPERTENSION HOLD FOR SBP <110,HR <60 12/29/16 Tamsulosin Hcl* (Tamsulosin Hcl*) 0.4 Mg Cap.er.24h, 0.4 MG PO HS, CAP 12/29/16 Ipratropium-Albuterol (Ipratropium-Albuterol) 0.5-3 Mg/3 Ml Ampul.neb, 3 ML INHALATION Q4 for SHORTNESS OF BREATH, #30 VIAL 12/29/16 Docusate Sodium* (Docusate Sodium*) 100 Mg Capsule, 100 MG PO Q12 for CONSTIPATION, #30 CAP 12/29/16 Cranberry Extract (Cranberry) 425 Mg Capsule, 425 MG PO DAILY for UTI PROPHYLAXIS, CAP 12/29/16 Amiodarone Hcl* (Amiodarone Hcl*) 100 Mg Tablet, 100 MG PO DAILY, #30 TAB 12/29/16 Acetaminophen* (Acetaminophen*) 325 Mg Tablet, 650 MG PO Q6H, #30 TAB GIVE 2 TABS EVERY Q6H NEEDED FOR PAIN RATE 1-10/10 NTE 3GM/24 HOURS 12/29/16 Acetaminophen (Feverall) 325 Mg Supp.rect, 325 MG RC Q6H, SUPP.RECT 12/29/16 Atorvastatin* (Atorvastatin*) 40 Mg Tablet, 20 MG PO QHS for HYPERLIPIDIMIA, # 30 TAB 12/29/16 Gabapentin* (Gabapentin*) 300 Mg Capsule, 300 MG PO DAILY, #60 CAP 10/30/16 Allergies Allergies: Coded Allergies: No Known Allergy (Unverified , 04/17/17) PMhx/Soc History of Surgery: Yes (hip surgery) Anesthesia Reaction: No Hx Neurological Disorder: No Hx Respiratory Disorders: No Hx Cardiac Disorders: Yes (afib) Hx Psychiatric Problems: No Hx Miscellaneous Medical Probl: Yes (a-fib, HTN, DM, CVA with LE weakness, GI bleed, CKD) Hx Alcohol Use: No Hx Substance Use: No Hx Tobacco Use: No Smoking Status: Never smoker Physical Exam Vitals Vital Signs Date Time Temp Pulse Resp B/P Pulse Ox O2 Delivery O2 Flow Rate FiO2 04/17/17 13:56 98.6 70 21 116/69 99 Physical Exam Constitutional:Well-developed. Well-nourished. HEENT:Normocephalic. Atraumatic. Patient is blind and able to perceive light with dry mucous membranes.No tonsillar exudates. Neck: No nuchal rigidity. No lymphadenopathy. No posterior cervical spine tenderness or step-offs. Respiratory: Not using accessory muscles of respiration.Lungs were clear to auscultation bilaterally. No rhonchi. No rales. No wheezing. Cardiovascular: Irregular regular rhythm.No murmurs. No rubs were appreciated.S1 , S2 normal. Distal pulses are palpable 2+ bilaterally. GI: Abdomen was soft. Nontender. Non Distended. No pulsatile abdominal masses or bruits. No rebound. No guarding. Bowel sounds were present and normal. Indwelling Flores catheter Muscle skeletal: Full range of motion of both the upper and lower extremities bilaterally. Muscle atrophy of bilateral lower extremities no assymetrical calf tenderness or swelling. Skin: No petechia, no purpura. No lesions on the palms or the soles of the feet. No maculopapular rash. NEURO: Patient was alert, awake, orientated x3.No facial droop. rhythm. Patient ambulates with a walker Result Diagram: 04/17/17 1414 04/17/17 1414 Results 24 hrs Laboratory Tests Test 04/17/17 14:14 04/17/17 14:30 White Blood Count 12.310^3/ul Red Blood Count 4.1910^6/ul Hemoglobin 11.2g/dl Hematocrit 35.6% Mean Corpuscular Volume 85.0fl Mean Corpuscular Hemoglobin 26.7pg Mean Corpuscular Hemoglobin Concent 31.5g/dl Red Cell Distribution Width 18.7% Platelet Count 25647^3/UL Mean Platelet Volume 12.7fl Neutrophils % 73.4% Lymphocytes % 11.7% Monocytes % 7.1% Eosinophils % 6.4% Basophils % 0.8% Nucleated Red Blood Cells % 0.0/100WBC Neutrophils # (Manual) 9.010^3/ul Lymphocytes # 1.410^3/ul Monocytes # 0.910^3/ul Eosinophils # 0.810^3/ul Basophils # 0.110^3/ul Nucleated Red Blood Cells # 0.010^3/ul Prothrombin Time 12.8Sec Prothrombin Time Ratio 1.0 INR International Normalized Ratio 0.96 Activated Partial Thromboplast Time 34.3Sec Sodium Level 140mmol/L Potassium Level 7.3mmol/L Chloride Level 102mmol/L Carbon Dioxide Level 22mmol/L Anion Gap 23 Blood Urea Nitrogen 146mg/dl Creatinine 4.40mg/dl Glucose Level 122mg/dl Lactic Acid Level 1.1mmol/L Calcium Level 8.8mg/dl Total Bilirubin 0.0mg/dl Direct Bilirubin 0.00mg/dl Indirect Bilirubin 0.0mg/dl Aspartate Amino Transf (AST/SGOT) 113IU/L Alanine Aminotransferase (ALT/SGPT) 112IU/L Alkaline Phosphatase 313IU/L Troponin I 0.016ng/ml Total Protein 8.6g/dl Albumin 3.4g/dl Globulin 5.20g/dl Albumin/Globulin Ratio 0.65 Amylase Level 192U/L Lipase 467U/L Urine Color YELLOW Urine Clarity CLOUDY Urine pH 8.0 Urine Specific [place] 1.014 Urine Ketones NEGATIVEmg/dL Urine Nitrite NEGATIVEmg/dL Urine Bilirubin NEGATIVEmg/dL Urine Urobilinogen NEGATIVEmg/dL Urine Leukocyte Esterase 3+Lisa/ul Urine Microscopic RBC 2/HPF Urine Microscopic WBC > 182/HPF Urine Hemoglobin NEGATIVEmg/dL Urine Glucose 1+mg/dL Urine Total Protein 2+mg/dl Current Medications Medications (Trade) Dose Ordered Sig/Joan Route PRN Reason Start Time Stop Time Status Last Admin Dose Admin Sodium Chloride (NS) 1,000 ml @ 1,000 mls/hr Q1H STAT IV 04/17/17 14:06 04/17/17 15:05 DC 04/17/17 14:37 Furosemide (Lasix) 40 mg ONCE STAT IV 04/17/17 16:17 04/17/17 16:19 DC Sodium Polystyrene Sulfonate (Kayexalate) 30 gm ONCE STAT PO 04/17/17 16:17 04/17/17 16:19 DC Albuterol (Proventil 0.5% (Neb)) 15 mg ONCE STAT INH 04/17/17 16:17 04/17/17 16:19 DC Sodium Bicarbonate (Na Bicarb 8.4% Syg) 50 ml ONCE STAT IV 04/17/17 16:17 04/17/17 16:19 DC Calcium Chloride 1000 mg 1,000 mg ONCE STAT IV 04/17/17 16:17 04/17/17 16:19 DC Ceftriaxone Sodium 50 ml @ 100 mls/hr ONCE ONCE IVPB 04/17/17 17:00 04/17/17 17:29 Sodium Chloride (NS) 1,000 ml @ 1,000 mls/hr Q1H STAT IV 04/17/17 16:38 04/17/17 17:37 Ondansetron HCl (Zofran Inj) 4 mg ER BRIDGE PRN IV NAUSEA AND/OR VOMITING 04/17/17 17:00 04/18/17 16:59 Acetaminophen (Tylenol Tab) 650 mg ER BRIDGE PRN PO MILD PAIN/FEVER 04/17/17 17:00 04/18/17 16:59 Procedures/MDM This is a very pleasant 72-year-old male that presented to the emergency department with generalized weakness. The patient had IV access established was placed in a school lunch monitor and continuous pulse oximetry. The patient appeared to have clinical dehydration and was given a liter bolus of 0.9 normal saline. The patient has an indwelling Flores catheter and blood cultures and urine cultures were obtained. 12 Lead EKG tracing ordered and reviewed by myself showed: Irregular regular rhythm of 62bpm and no arrhythmia. [place] interval normal. QRS duration normal. No ST segment elevation No ST segment depression. No changes consistent with acute ischemia. No peaked T waves. Sexual no peak T waves the patient's potassium was elevated at 7.6. The patient 's BUN was 146 and creatinine was 4.4. This could be prerenal due to severe dehydration as the patient is unable to take oral intake and does have a PEG tube. The patient will receive IV fluids. His child life therapist is Dr. Cheema. 1 view chest radiograph for and reviewed by myself showed an elevated right hemidiaphragm. There is no infiltrates pneumothorax or pleural effusion The patient also had pyuria with suspected urinary tract infection. This urine was taken from the patient's initial Flores bag. The patient had blood cultures and urine cultures obtained and was given 1 g ceftriaxone intravenously I spoke with the patient's primary care physician Dr. Patel who kindly stated he will admit the patient. I repeated the patient's potassium was still elevated therefore the patient was treated with an amp of bicarb calcium chloride, Kayexalate Lasix and albuterol. Departure Diagnosis: Primary Impression: Acute weakness Additional Impressions: Hyperkalemia Acute renal failure Qualified Code: N17.9 - Acute renal failure, unspecified acute renal failure type Urinary tract infection Qualified Code: N30.00 - Acute cystitis without hematuria Condition: Serious PAUL SON Apr 17, 2017 15:46
[2017-04-17 15:48] LABS: ADD UMIC YES; UR ASCORBIC ACID 40 mg/dL (NEGATIVE); UR BILIRUBIN (Dip) NEGATIVE (NEGATIVE); UR BLOOD (Dip) NEGATIVE (NEGATIVE); UR CLARITY CLOUDY (CLEAR); UR COLOR YELLOW (YELLOW); UR GLUCOSE (Dip) 1+ mg/dL (NEGATIVE); UR KETONES (Dip) NEGATIVE (NEGATIVE); UR LEUKOCYTE ESTERASE (Dip) 3+ Leu/ul (NEGATIVE); UR NITRITE (Dip) NEGATIVE (NEGATIVE); UR RBC 2 /HPF (0-5); UR SPECIFIC GRAVITY (Dip) 1.014 (1.003-1.030); UR TOTAL PROTEIN (Dip) 2+ mg/dl (NEGATIVE); UR UROBILINOGEN (Dip) NEGATIVE (NEGATIVE)
[2017-04-17 15:58] LABS: ALBUMIN 3.4 g/dl (3.3-4.9); ALBUMIN/GLOBULIN RATIO 0.65; CALCIUM 8.8 mg/dl (8.4-10.2); CREATININE 4.4 mg/dl (0.61-1.24); TOTAL PROTEIN 8.6 g/dl (6.1-8.1)
[2017-04-17 16:03] LABS: POTASSIUM 7.3 mmol/L (3.5-5.1)
[2017-04-17] MEDS ORDERED: NA POLYST SULFON 15 GM/60 ML BTL PO STA (16:17)
[2017-04-17] MEDS ORDERED: NA BICARBONATE 8.4% 50 ML SYG IV STA (16:17)
[2017-04-17] MEDS ORDERED: FUROSEMIDE 40 MG INJ IV STA (16:17)
[2017-04-17] MEDS ORDERED: CA CHLORIDE 10% 10 ML SYRINGE IV STA (16:17)
[2017-04-17] MEDS ORDERED: ALBUTEROL 0.5% (NEB) 2.5 MG/0.5 ML AMP INH STA (16:17)
[2017-04-17] MEDS ORDERED: ONDANSETRON 4 MG INJ IV PRN (17:00)
[2017-04-17] MEDS ORDERED: ACETAMINOPHEN 325 MG TAB PO PRN (17:00)
[2017-04-17] MEDS ORDERED: CEFTRIAXONE 1 GM/50 ML (PMX) 50 ML IVPB ONE (17:00)
[2017-04-17 17:16] LABS: PHOSPHORUS 6.4 mg/dl (2.5-4.9)
[2017-04-17] MEDS ORDERED: INSULIN ASPART [NOVOLOG] 3 ML PEN SC SCH (18:00)
[2017-04-17] MEDS ORDERED: VANCOMYCIN IV PER PHARMACY XX SCH (18:00)
--- NOTE | 2017-04-17 18:01 | HP ---
Date/Time of Note Date/Time of Note DATE: 04/17/17 TIME: 17:46 Assessment/Plan VTE Prophylaxis VTE Prophylaxis Intervention: other Lines/Catheters Urinary Cath still in place: Yes Reason Cath still needed: urinary retention Assessment/Plan Assessment/Plan -Acute weakness sec to Dizziness - admit to hospital - cardiology consult - 2D Echo am - Hyperkalemia - Kayexalate 30 gm via GT X 1 - repeat BMP - fu - Acute renal failure on Chronic Kidney disease - nephro consult- dr Cheema notified -Acute cystitis without hematuria - sp Vanco/Zosyn - fu urine c/s - Dysphagia - sp PEG placement - aspiration precautions - History of paroxysmal atrial fibrillation. - Diabetes mellitus. - Glycemic control - Chronic kidney disease. - History of cerebrovascular accident. - Hx AMS PLAN - Resume long term meds -DVT/GI prophylaxis Plan of care dw Dr Patel/staff HPI/ROS Admit Date/Time Admit Date/Time Hx of Present Illness HPI This is a 72-year-old male with extensive medical history including AMS, paroxysmal atrial fibrillation, hypertension, diabetes, history of stroke with lower extremity weakness, history of GI bleed and chronic kidney disease, sP PEG tube placement urinary retention with indwelling FC , and with a known history of blindness, hematemesis. Patient is admitted with complaining of dizziness upon awakening this morning. He was not able to stand today eavestrough, normally he ambulates with a walker, No shortness of breath at rest or exertion reported. He denied a headache, chest pain, fevers or shaking no chills. He has an indwelling Flores catheter that was changed roughly 1 month ago. He also has a PEG tube. No coughing, choking reported. No antipyretics were given prior to arrival. The patient has not had any recent hospitalizations. ROS All systems reviewed and are negative except as per history of present illness. Allergies No Known Allergy (Unverified , 04/17/17) ROS Respiratory: no complaints Cardiovascular: no complaints Gastrointestinal: no complaints PMH/Family/Social Past Medical History PMhx/Soc History of Surgery: Yes (hip surgery) Anesthesia Reaction: No Hx Neurological Disorder: No Hx Respiratory Disorders: Yes healthcare-acquired pneumonia. Hx Cardiac Disorders: Yes (afib), Diastolic congestive heart failure. Hypertension. Hx Neurological Disorders: metabolic encephalopathy, cerebrovascular accident. Hx Endocrine Disorders: Yes Diabetes mellitus. Hx Renal Disorders: Chronic kidney disease. Hx Hematological Disorders: Anemia. Hx Psychiatric Problems: AMS Hx Miscellaneous Medical Probl: Yes (a-fib, HTN, DM, CVA with LE weakness, GI bleed, CKD) Hx Alcohol Use: No Hx Substance Use: No Hx Tobacco Use: No Smoking Status: Never smoker Past Surgical History Past Surgical Hx: noncontributory Social History Alcohol Use: none Smoking Status: Never smoker Drug Use: none Exam/Review of Systems Vital Signs Vitals Vital Signs Date Time Temp Pulse Resp B/P Pulse Ox O2 Delivery O2 Flow Rate FiO2 04/17/17 16:52 62 21 131/68 98 Nasal Cannula 2.0 04/17/17 13:56 98.6 Exam Constitutional: alert, oriented (name only ), well developed Respiratory: diminished breath sounds Cardiovascular: nl pulses Gastrointestinal: non-tender, other, soft Musculoskeletal: nl extremities to inspection Neurological: other Labs Result Diagram: 04/17/17 1414 04/17/17 1640 MARCY WEINER Apr 17, 2017 17:56
[2017-04-17] MEDS ORDERED: DEXTROSE 50% 50 ML SYRINGE IV PRN (21:00)
[2017-04-17] MEDS ORDERED: GLUCOSE GEL 15 GRAM TUBE BUCCAL PRN (21:00)
[2017-04-17] MEDS ORDERED: GLUCAGON 1 MG INJ IM PRN (21:00)
[2017-04-17] MEDS ORDERED: ATORVASTATIN 20 MG TAB GTB SCH (21:00)
[2017-04-17] MEDS ORDERED: GLUCOSE GEL 15 GRAM TUBE PO PRN ×2 (21:00)
[2017-04-17] MEDS ORDERED: VANCOMYCIN 1 GM in NS 250 ML IVPB SCH (21:30)
[2017-04-17 21:47] VITALS: PULSE 86
[2017-04-17] MEDS: SOD CHLORIDE 0.45% 1,000 ML IV SCH (23:13)
[2017-04-17] MEDS: BISACODYL 10 MG SUPP PR SCH (23:14)
[2017-04-17 23:24] VITALS: BMI 22.4
[2017-04-18] VITALS (11 sets, daily range): BP systolic 137–180; BP diastolic 66–85; PULSE 83–90; RESP 16–20
[2017-04-18] MEDS ORDERED: NA POLYST SULFON 15 GM/60 ML BTL PO ONE
[2017-04-18] MEDS: INSULIN ASPART [NOVOLOG] 3 ML PEN SC SCH ×5 (00:12→21:00)
[2017-04-18] MEDS: INSULIN GLARGINE [LANtus] 3 ML PEN SC SCH ×2 (00:23→21:49)
[2017-04-18] MEDS ORDERED: ONDANSETRON 4 MG INJ IV PRN (00:30)
[2017-04-18] MEDS ORDERED: VANCOMYCIN 1.25 GM in SOD CHLORIDE 0.9% 250 ML IVPB SCH (01:30)
[2017-04-18] MEDS: ACCU-CHEK XX SCH ×2 (02:00→23:38)
[2017-04-18] MEDS: SOD CHLORIDE 0.45% 1,000 ML IV SCH ×3 (03:52→23:37)
[2017-04-18] MEDS ORDERED: GABAPENTIN 300 MG CAP GTB SCH (09:00)
[2017-04-18 09:28] LABS: ALBUMIN 3.2 g/dl (3.3-4.9); ALBUMIN/GLOBULIN RATIO 0.61; CALCIUM 8.7 mg/dl (8.4-10.2); CREATININE 4.16 mg/dl (0.61-1.24); POTASSIUM 4.5 mmol/L (3.5-5.1); TOTAL PROTEIN 8.4 g/dl (6.1-8.1)
[2017-04-18] MEDS: TAMSULOSIN (SR) 0.4 MG CAP PO SCH (10:04)
[2017-04-18] MEDS: MULTIVITAMINS THERAPEUTIC TAB GTB SCH (10:04)
[2017-04-18] MEDS: AMIODARONE 200 MG TAB GTB SCH (10:13)
--- NOTE | 2017-04-18 10:33 | QN ---
Documentation Comment Pt with h/o parox a. fib - converted to sinus now - LFT high - will d/c statin, Rx ARF now - keep amio on if possible. Full note dictated # [id number] Thank you HERBERTH ZUNIGA MD Apr 18, 2017 10:33
--- NOTE | 2017-04-18 10:38 | RADRPT ---
Echocardiogram Report Patient Name: ANALI THORPE Gender: Male Date: 1945 Study Date: 18-Apr-2017 Bedspread Cutter Hand: Katrina Ernst [facility] Location: 5546 Ref. Physician: MARCY WEINER Quality: Good Procedures: Transthoracic echocardiogram with complete 2D, M-Mode, and doppler examination. Indications: Dizziness. 2D/M Mode Doppler Measurement Value Normal Ranges Measurement Value Normal Ranges LVIDd 2D 4.0 3.5 - 5.6 cm JIM Vmax 1.9 cm2 LVIDs 2D 2.7 2.1 - 4.1 cm AV Peak Tucker 1.8 m/sec FS 2D 33.0 % AV Peak PG 13.0 mmHg LVPWd 2D 1.1 0.6 - 1.1 cm LVOT Peak Tucker 0.9 m/sec IVSd 2D 1.1 0.6 - 1.1 cm LVOT Peak PG 3.0 mmHg IVS/LVPW 2D 1.0 MV E Peak Tucker 0.8 m/sec AoR Diam 2D 2.9 2.0 - 3.7 cm MV A Peak Tucker 0.9 m/sec LA/Ao 2D 1 0 - 1 MV E/A 0.8 EDV 2D 65.5 cm3 MV Decel Time 204 msec ESV 2D 19.7 cm3 MV E/A 0.8 LA Dimen 2D 4.0 2.3 - 4.0 cm TR Peak Tucker 1.8 m/sec LVOT Diam 2.2 cm TR Peak PG 13.0 mmHg LVOT Area 3.8 cm2 RVSP 16.0 mmHg Findings Left Ventricle: Normal left ventricular systolic function. Normal left ventricular cavity size. Mild concentric left ventricular hypertrophy. Ejection fraction is visually estimated at 65 %. Tissue Doppler/Mitral Doppler indices are consistent with impaired relaxation (Stage I diastolic dysfunction). Right Ventricle: Normal right ventricular size. Normal right ventricular systolic function. Left Atrium: The left atrium is normal in size. Right Atrium: The right atrium is normal in size. Mitral Valve: Normal appearance and function of the mitral valve with trace physiologic regurgitation. Aortic Valve: Aortic sclerosis without stenosis. Trace aortic valve regurgitation. Tricuspid Valve: Normal appearance of the tricuspid valve. Estimated peak PA systolic pressure 16 mmHg. There is trace tricuspid regurgitation. Pulmonic Valve: Normal pulmonic valve appearance. Pericardium: Normal pericardium with no significant pericardial effusion. Aorta: Normal aortic root. IVC: Normal size and normal respiratory collapse consistent with normal right atrial pressure. Conclusions 1.Normal left ventricular systolic function. Normal left ventricular cavity size. Mild concentric left ventricular hypertrophy. Ejection fraction is visually estimated at 65 %. Tissue Doppler/Mitral Doppler indices are consistent with impaired relaxation (Stage I diastolic dysfunction). 2.Normal appearance and function of the mitral valve with trace physiologic regurgitation. 3.Aortic sclerosis without stenosis. Trace aortic valve regurgitation. 4.Normal appearance of the tricuspid valve. Estimated peak PA systolic pressure 16 mmHg. There is trace tricuspid regurgitation. Electronically Signed By: Kee Diego 18-Apr-2017 10:37:20 -2500 Patient Name: ANALI THORPE Study Date: 18-Apr-[id number]
--- NOTE | 2017-04-18 11:39 | CONS ---
DATE OF ADMISSION: 04/17/2017 DATE OF CONSULTATION: 04/18/2017 REFERRING PHYSICIAN: Che Mccain MD REASON FOR EVALUATION: Atrial fibrillation, hypertension, coronary artery disease. HISTORY OF PRESENT ILLNESS: The patient is a 72-year-old gentleman, former patient of Dr. Mcgrath with a history of hypertension, dyslipidemia, history of paroxysmal atrial fibrillation, history of prior CVA, history of prior GI bleeding and chronic renal disease with PEG who comes to the hospital for alteration of mental status. Apparently, the patient was ambulatory just several weeks ago, now he is altered in acute renal failure. I have been asked to see the patient in consultation because of his atrial fibrillation. On presentation, the patient was in atrial fibrillation with the rate of 60s with some paroxsisms , now the patient is in sinus rhythm. He is on amiodarone and Lipitor with elevated liver enzymes. Per discussion with Dr. Mccain, we are going to hold off on his Lipitor and continue the patient's amiodarone at this point given the fact that he did convert successfully to sinus rhythm, it will be good to maintain the rhythm at this point. Other than that, we will follow liver function tests. If they do not improve, we will consider discontinuing amiodarone, although it would not be a preferred option. For now the dialysis. Dr. Cheema will follow from renal standpoint. PAST MEDICAL HISTORY: 1. Hypertension. 2. Dyslipidemia. 3. History of coronary artery disease. 4. History of paroxysmal atrial fibrillation. 5. History of elevated liver tests on amiodarone and statin. 6. History of GI bleeding in the past. 7. History of renal failure, acute on chronic. ALLERGIES: NO KNOWN DRUG ALLERGIES. SOCIAL HISTORY: The patient smokes. Does not drink. Does not do any drugs. FAMILY HISTORY: Negative for sudden cardiac or premature coronary artery disease. MEDICATION: 1. Glucose. 2. Vancomycin. 3. Diphenhydramine. 4. Hydralazine. REVIEW OF SYSTEMS: The patient has no fevers. No chills. No shortness of breath. . PSYCHIATRY: History of anxiety. PHYSICAL EXAMINATION: VITAL SIGNS: Temperature is 97.8, heart rate is 83, blood pressure is 157/65. GENERAL APPEARANCE: He is in no acute distress. Alert and oriented . HEENT: Head is normocephalic, atraumatic. Eyes intact. HEART: Rate is regular with soft S1, S2. No murmur. CHEST: . ABDOMEN: Nondistended. Bowel sounds present. Negative for . Flores is in place. EXTREMITIES: Show no cyanosis, clubbing, or edema. LABORATORY DATA: White blood cell count is 12.3, hemoglobin of 0.8, platelets 311, INR is 0.9, sodium 138, creatinine is 4.16. Troponin is 0.06 here on presentation. ASSESSMENT AND PLAN: 1. Atrial fibrillation. The patient has atrial fibrillation, paroxysmal on presentation. As described above, we will hold off on statin now in the setting of elevated liver function tests. We will try to continue amiodarone for now. 2. Patient with history of gastrointestinal bleeding. He is not anticoagulated for that reason. 3. because of bleeding. 4. Hypertension. Blood pressure was . The patient is being hydrated in the setting of acute renal failure. 5. Acute renal failure. Creatinine is elevated. Dr. Cheema will follow. Continue to avoid nephrotoxic medications. 6. History of heart failure with ejection fraction. We will obtain a 2D echocardiogram to establish ejection fraction. 7. Encephalopathy, likely multifactorial with renal insufficiency. Continue to treat the patient medically and follow. 8. Dyslipidemia. Fasting lipids to be followed. 9. History of cerebrovascular accident. Conservative care. We will defer . I would like to thank Dr. Pearson for referring this patient for my evaluation. Dictated By: Kee Diego MD /[email or web address]/gray /Document#: [id number]
--- NOTE | 2017-04-18 11:54 | PN ---
Date/Time of Note Date/Time of Note DATE: 04/18/17 TIME: 11:42 Assessment/Plan VTE Prophylaxis VTE Prophylaxis Intervention: SCD's Lines/Catheters IV Catheter Type (from Nrsg): Peripheral IV Urinary Cath still in place: Yes Reason Cath still needed: urinary retention Assessment/Plan Assessment/Plan - Leukocytosis sec to UTI- maira Albicans - -Acute cystitis without hematuria - sp Vanco/Zosyn - fu urine c/s - ID consult- Dr Garcia notified - am labs -Acute weakness sec to Dizziness - cardiology consult - 2D Echo am- LVEF 65% - Electrolyte imbalance- per nephrology - Hyperkalemia- RESOLVED - Hypernatremia - Hyperphosphatemia - Acute renal failure on Chronic Kidney disease - per nephro consult- dr Cheema - Dysphagia - sp PEG placement - aspiration precautions - cont tube feeding - History of paroxysmal atrial fibrillation.- no acute issues. SR at present - Diabetes mellitus. - Glycemic control - Dietary consult - lockmaker consult - Chronic kidney disease. - History of cerebrovascular accident- no acute issues reported - Hx AMS Plan of care dw Dr Patel/staff Subjective 24 Hr Interval Summary Free Text/Dictation nad, resting in bed. seems comfortable, SR with HR 83 at present, denies dizziness, more talkative, follows commands, 2D echo- LVEF 65 %. cardiology, ID , Nephro follows. dw staff- no new events reported last night Respiratory: no complaints Cardiovascular: no complaints Gastrointestinal: no complaints Genitourinary: no complaints Musculoskeletal: no complaints Exam/Review of Systems Vital Signs Vitals Vital Signs Date Time Temp Pulse Resp B/P Pulse Ox O2 Delivery O2 Flow Rate FiO2 04/18/17 08:27 97.8 83 16 157/75 97 04/18/17 08:00 Nasal Cannula 2.0 Intake and Output 04/17/17 04/17/17 04/18/17 15:00 23:00 07:00 Output Total 1500 ml Balance -1500 ml Exam Constitutional: alert, oriented Psych: nl mood/affect Respiratory: clear to auscultation, normal air movement Gastrointestinal: non-tender, soft Musculoskeletal: nl extremities to inspection Extremities: normal pulses Neurological: nl speech Skin: other Results Result Diagram: 04/17/17 1414 04/18/17 0725 Results 24 hrs Laboratory Tests Test 04/17/17 14:14 8/26/17 14:30 04/17/17 16:40 04/17/17 17:13 White Blood Count 12.3 H Red Blood Count 4.19 #L Hemoglobin 11.2 L Hematocrit 35.6 L Mean Corpuscular Volume 85.0 Mean Corpuscular Hemoglobin 26.7 L Mean Corpuscular Hemoglobin Concent 31.5 L Red Cell Distribution Width 18.7 H Platelet Count 311 # Mean Platelet Volume 12.7 H Neutrophils % 73.4 Lymphocytes % 11.7 L Monocytes % 7.1 Eosinophils % 6.4 Basophils % 0.8 Nucleated Red Blood Cells % 0.0 Neutrophils # (Manual) 9.0 H Lymphocytes # 1.4 Monocytes # 0.9 Eosinophils # 0.8 H Basophils # 0.1 Nucleated Red Blood Cells # 0.0 Prothrombin Time 12.8 Prothrombin Time Ratio 1.0 INR International Normalized Ratio 0.96 Activated Partial Thromboplast Time 34.3 Sodium Level 140 Potassium Level 7.3 *H 6.7 *H Chloride Level 102 Carbon Dioxide Level 22 Anion Gap 23 H Blood Urea Nitrogen 146 H Creatinine 4.40 H Glucose Level 122 Lactic Acid Level 1.1 Calcium Level 8.8 Total Bilirubin 0.0 L Direct Bilirubin 0.00 Indirect Bilirubin 0.0 Aspartate Amino Transf (AST/SGOT) 113 H Alanine Aminotransferase (ALT/SGPT) 112 H Alkaline Phosphatase 313 H Troponin I 0.016 Total Protein 8.6 H Albumin 3.4 Globulin 5.20 H Albumin/Globulin Ratio 0.65 Amylase Level 192 H Lipase 467 H Urine Color YELLOW Urine Clarity CLOUDY A Urine pH 8.0 Urine Specific [place] 1.014 Urine Ketones NEGATIVE Urine Nitrite NEGATIVE Urine Bilirubin NEGATIVE Urine Urobilinogen NEGATIVE Urine Leukocyte Esterase 3+ H Urine Microscopic RBC 2 Urine Microscopic WBC > 182 H Urine Hemoglobin NEGATIVE Urine Glucose 1+ H Urine Total Protein 2+ H Uric Acid 5.0 Phosphorus Level 6.4 H Bedside Glucose 127 Test 04/17/17 23:48 04/18/17 07:25 04/18/17 08:28 Bedside Glucose 94 138 Sodium Level 148 H Potassium Level 4.5 # Chloride Level 105 Carbon Dioxide Level 26 Anion Gap 22 H Blood Urea Nitrogen 131 H Creatinine 4.16 H Glucose Level 101 Calcium Level 8.7 Total Bilirubin 0.0 L Direct Bilirubin 0.00 Indirect Bilirubin 0.0 Aspartate Amino Transf (AST/SGOT) 110 H Alanine Aminotransferase (ALT/SGPT) 114 H Alkaline Phosphatase 220 H Total Protein 8.4 H Albumin 3.2 L Globulin 5.20 H Albumin/Globulin Ratio 0.61 Medications Medications Current Medications Acetaminophen (Tylenol Tab) 650 mg Q6H PRN GTB PAIN AND OR ELEVATED TEMP; Start 04/17/17 at 18:00 Amiodarone HCl (Cordarone) 100 mg DAILY GTB Last administered on 04/18/17 10: 13; Admin Dose 100 MG; Start 04/18/17 at 09:00 Bisacodyl (Dulcolax Supp) 10 mg Q24H [place] Last administered on 04/17/17 23:14; Admin Dose 10 MG; Start 04/17/17 at 18:00 Diphenhydramine HCl (Benadryl) 25 mg Q6H PRN GTB ITCHING; Start 04/17/17 at 18: 00 Hydralazine HCl (Apresoline) 50 mg Q8 PRN GTB ELEVATED BLOOD PRESSURE; Start at 18:00 Insulin Glargine (Lantus) 20 unit QHS SC Last administered on 04/18/17 00:23; Admin Dose 20 UNIT; Start 04/17/17 at 21:00 Multivitamins Therapeutic (Theragran) 1 tab DAILY GTB Last administered on 04/18 10:04; Admin Dose 1 TAB; Start 04/18/17 at 09:00 Tamsulosin HCl 0.4 mg 0.4 mg DAILY PO Last administered on 04/18/17 10:04; Admin Dose 0.4 MG; Start 04/18/17 at 09:00 Sodium Chloride (1/2 NS) 1,000 ml @ 100 mls/hr Q10H IV Last administered on 10:32; Admin Dose 100 MLS/HR; Start 04/17/17 at 18:30 Diagnostic Test (Pha) (Accu-Chek) 1 ea 02 XX ; Start 04/18/17 at 02:00 Miscellaneous Information 1 ea NOTE XX ; Start 04/17/17 at 21:00 Glucose (Glutose) 15 gm Q15M PRN PO DECREASED GLUCOSE; Start 04/17/17 at 21:00 Glucose (Glutose) 22.5 gm Q15M PRN PO DECREASED GLUCOSE; Start 04/17/17 at 21: 00 Dextrose (D50w Syringe) 25 ml Q15M PRN IV DECREASED GLUCOSE; Start 04/17/17 at 21:00 Dextrose (D50w Syringe) 50 ml Q15M PRN IV DECREASED GLUCOSE; Start 04/17/17 at 21:00 Glucagon (Glucagen) 1 mg Q15M PRN IM DECREASED GLUCOSE; Start 04/17/17 at 21:00 Glucose (Glutose) 15 gm Q15M PRN BUCCAL DECREASED GLUCOSE; Start 04/17/17 at 21 :00 Ondansetron HCl (Zofran Inj) 4 mg Q6H PRN IV NAUSEA AND/OR VOMITING; Start at 00:30 MARCY WEINER Apr 18, 2017 11:53
[2017-04-18] MEDS: BISACODYL 10 MG SUPP PR SCH (12:51)
--- NOTE | 2017-04-18 15:39 | CONS ---
Date/Time of Note Date/Time of Note DATE: 04/18/17 TIME: 15:36 Assessment/Plan Assessment/Plan Chief Complaint/Hosp Course BISI W ATN DEHYDRATION SEPSIS HYPERNATREMIA PEG HX CVA PLAN PER ORDER Problems: Consultation Date/Type/Reason Admit Date/Time Apr 17, 2017 at 16:39 Initial Consult Date Type of Consultation: RENAL 24 HR Interval Summary Constitutional: no complaints Exam/Review of Systems Vital Signs Vitals Vital Signs Date Time Temp Pulse Resp B/P Pulse Ox O2 Delivery O2 Flow Rate FiO2 04/18/17 13:11 86 18 170/75 97 04/18/17 12:49 98.0 04/18/17 08:00 Nasal Cannula 2.0 Intake and Output 04/17/17 04/17/17 04/18/17 15:00 23:00 07:00 Output Total 1500 ml Balance -1500 ml Exam Respiratory: clear to auscultation Cardiovascular: regular rate and rhythm Musculoskeletal: nl extremities to inspection Extremities: normal pulses Results Result Diagram: 04/17/17 1414 04/18/17 0725 Results 24 hrs Laboratory Tests Test 04/17/17 16:40 04/17/17 17:13 04/17/17 23:48 04/18/17 07:25 Potassium Level 6.7 *H 4.5 # Uric Acid 5.0 Phosphorus Level 6.4 H Bedside Glucose 127 94 Sodium Level 148 H Chloride Level 105 Carbon Dioxide Level 26 Anion Gap 22 H Blood Urea Nitrogen 131 H Creatinine 4.16 H Glucose Level 101 Calcium Level 8.7 Total Bilirubin 0.0 L Direct Bilirubin 0.00 Indirect Bilirubin 0.0 Aspartate Amino Transf (AST/SGOT) 110 H Alanine Aminotransferase (ALT/SGPT) 114 H Alkaline Phosphatase 220 H Total Protein 8.4 H Albumin 3.2 L Globulin 5.20 H Albumin/Globulin Ratio 0.61 Test 04/18/17 08:28 04/18/17 12:13 Bedside Glucose 138 155 Medications Medications Current Medications Acetaminophen (Tylenol Tab) 650 mg Q6H PRN GTB PAIN AND OR ELEVATED TEMP; Start 04/17/17 at 18:00 Amiodarone HCl (Cordarone) 100 mg DAILY GTB Last administered on 04/18/17t 10: 13; Admin Dose 100 MG; Start 04/18/17 at 09:00 Bisacodyl (Dulcolax Supp) 10 mg Q24H [place] Last administered on 04/17/17 23:14; Admin Dose 10 MG; Start 04/17/17 at 18:00 Diphenhydramine HCl (Benadryl) 25 mg Q6H PRN GTB ITCHING; Start 04/17/17 at 18: 00 Hydralazine HCl (Apresoline) 50 mg Q8 PRN GTB ELEVATED BLOOD PRESSURE Last administered on 04/18/17 13:18; Admin Dose 50 MG; Start 04/17/17 at 18:00 Insulin Glargine (Lantus) 20 unit QHS SC Last administered on 04/18/17 00:23; Admin Dose 20 UNIT; Start 04/17/17 at 21:00 Multivitamins Therapeutic (Theragran) 1 tab DAILY GTB Last administered on 04/18 10:04; Admin Dose 1 TAB; Start 04/18/17 at 09:00 Tamsulosin HCl 0.4 mg 0.4 mg DAILY PO Last administered on 04/18/17 10:04; Admin Dose 0.4 MG; Start 04/18/17 at 09:00 Sodium Chloride (1/2 NS) 1,000 ml @ 100 mls/hr Q10H IV Last administered on 10:32; Admin Dose 100 MLS/HR; Start 04/17/17 at 18:30 Diagnostic Test (Pha) (Accu-Chek) 1 ea 02 XX ; Start 04/18/17 at 02:00 Miscellaneous Information 1 ea NOTE XX ; Start 04/17/17 at 21:00 Glucose (Glutose) 15 gm Q15M PRN PO DECREASED GLUCOSE; Start 04/17/17 at 21:00 Glucose (Glutose) 22.5 gm Q15M PRN PO DECREASED GLUCOSE; Start 04/17/17 at 21: 00 Dextrose (D50w Syringe) 25 ml Q15M PRN IV DECREASED GLUCOSE; Start 04/17/17 at 21:00 Dextrose (D50w Syringe) 50 ml Q15M PRN IV DECREASED GLUCOSE; Start 04/17/17 at 21:00 Glucagon (Glucagen) 1 mg Q15M PRN IM DECREASED GLUCOSE; Start 04/17/17 at 21:00 Glucose (Glutose) 15 gm Q15M PRN BUCCAL DECREASED GLUCOSE; Start 04/17/17 at 21 :00 Ondansetron HCl 4 mg 4 mg Q6H PRN IV NAUSEA AND/OR VOMITING; Start 04/18/17 at 00:30 Cefepime HCl (Maxipime 2gm/50 ml (Pmx)) 50 ml @ 100 mls/hr Q24H IVPB ; Start at 17:00 ABBY RAMOS MD Apr 18, 2017 15:39
--- NOTE | 2017-04-18 16:22 | CONS ---
Date/Time of Note Date/Time of Note DATE: 04/18/17 TIME: 16:21 Consultation Date/Type/Reason Admit Date/Time Apr 17, 2017 at 16:39 Date of Consultation: Apr 18, 2017 Type of Consultation: ID Reason for Consultation antibiotic management Constitutional: no complaints Respiratory: no complaints Cardiovascular: no complaints Gastrointestinal: no complaints Genitourinary: no complaints Musculoskeletal: no complaints Psychological: nl mood/affect Past Surgical History Past Surgical Hx: noncontributory Social History Alcohol Use: none Smoking Status: Never smoker Drug Use: none Exam/Review of Systems Vital Signs Vitals Vital Signs Date Time Temp Pulse Resp B/P Pulse Ox O2 Delivery O2 Flow Rate FiO2 04/18/17 16:00 90 04/18/17 13:11 18 170/75 97 04/18/17 12:49 98.0 04/18/17 08:00 Nasal Cannula 2.0 Intake and Output 04/17/17 04/17/17 04/18/17 15:00 23:00 07:00 Output Total 1500 ml Balance -1500 ml Results Result Diagram: 04/17/17 1414 04/18/17 0725 Results 24 hrs Laboratory Tests Test 04/17/17 16:40 04/17/17 17:13 04/17/17 23:48 04/18/17 07:25 Potassium Level 6.7 *H 4.5 # Uric Acid 5.0 Phosphorus Level 6.4 H Bedside Glucose 127 94 Sodium Level 148 H Chloride Level 105 Carbon Dioxide Level 26 Anion Gap 22 H Blood Urea Nitrogen 131 H Creatinine 4.16 H Glucose Level 101 Calcium Level 8.7 Total Bilirubin 0.0 L Direct Bilirubin 0.00 Indirect Bilirubin 0.0 Aspartate Amino Transf (AST/SGOT) 110 H Alanine Aminotransferase (ALT/SGPT) 114 H Alkaline Phosphatase 220 H Total Protein 8.4 H Albumin 3.2 L Globulin 5.20 H Albumin/Globulin Ratio 0.61 Test 04/18/17 08:28 04/18/17 12:13 Bedside Glucose 138 155 Medications Medications Current Medications Acetaminophen (Tylenol Tab) 650 mg Q6H PRN GTB PAIN AND OR ELEVATED TEMP; Start 04/17/17 at 18:00 Amiodarone HCl (Cordarone) 100 mg DAILY GTB Last administered on 04/18/17t 10: 13; Admin Dose 100 MG; Start 04/18/17 at 09:00 Bisacodyl (Dulcolax Supp) 10 mg Q24H [place] Last administered on 04/17/17 23:14; Admin Dose 10 MG; Start 04/17/17 at 18:00 Diphenhydramine HCl (Benadryl) 25 mg Q6H PRN GTB ITCHING; Start 04/17/17 at 18: 00 Hydralazine HCl (Apresoline) 50 mg Q8 PRN GTB ELEVATED BLOOD PRESSURE Last administered on 04/18/17 13:18; Admin Dose 50 MG; Start 04/17/17 at 18:00 Insulin Glargine (Lantus) 20 unit QHS SC Last administered on 04/18/17 00:23; Admin Dose 20 UNIT; Start 04/17/17 at 21:00 Multivitamins Therapeutic (Theragran) 1 tab DAILY GTB Last administered on 04/18 10:04; Admin Dose 1 TAB; Start 04/18/17 at 09:00 Tamsulosin HCl 0.4 mg 0.4 mg DAILY PO Last administered on 04/18/17 10:04; Admin Dose 0.4 MG; Start 04/18/17 at 09:00 Sodium Chloride (1/2 NS) 1,000 ml @ 100 mls/hr Q10H IV Last administered on 10:32; Admin Dose 100 MLS/HR; Start 04/17/17 at 18:30 Diagnostic Test (Pha) (Accu-Chek) 1 ea 02 XX ; Start 04/18/17 at 02:00 Miscellaneous Information 1 ea NOTE XX ; Start 04/17/17 at 21:00 Glucose (Glutose) 15 gm Q15M PRN PO DECREASED GLUCOSE; Start 04/17/17 at 21:00 Glucose (Glutose) 22.5 gm Q15M PRN PO DECREASED GLUCOSE; Start 04/17/17 at 21: 00 Dextrose (D50w Syringe) 25 ml Q15M PRN IV DECREASED GLUCOSE; Start 04/17/17 at 21:00 Dextrose (D50w Syringe) 50 ml Q15M PRN IV DECREASED GLUCOSE; Start 04/17/17 at 21:00 Glucagon (Glucagen) 1 mg Q15M PRN IM DECREASED GLUCOSE; Start 04/17/17 at 21:00 Glucose (Glutose) 15 gm Q15M PRN BUCCAL DECREASED GLUCOSE; Start 04/17/17 at 21 :00 Ondansetron HCl 4 mg 4 mg Q6H PRN IV NAUSEA AND/OR VOMITING; Start 04/18/17 at 00:30 Cefepime HCl (Maxipime 2gm/50 ml (Pmx)) 50 ml @ 100 mls/hr Q24H IVPB ; Start at 17:00 NUBIA PUGH MD Apr 18, 2017 16:22
--- NOTE | 2017-04-18 16:28 | RADRPT ---
PROCEDURE: Renal US. CLINICAL INDICATION: Renal dysfunction. TECHNIQUE: Multiple sonographic images of the kidneys and urinary bladder were obtained. The imag es were reviewed on a PACS workstation. COMPARISON: No prior studies are available for comparison. FINDINGS: The right kidney measures 10.8 x 6.5 x 6.4 cm. The left kidney measures 9.3 x 7.1 x 5.2 cm. There is no solid renal mass. There is a benign cyst in the mid right kidney measuring 1.6 cm. There is no hydronephrosis. There is no renal calculus. Renal parenchymal thickness is normal bilaterally. Both kidneys are hyperechoic consistent with medical renal disease. The perirenal regions are normal with no fluid collection or mass. There is a Flores catheter in the urinary bladder. IMPRESSION: 1. Benign right renal cyst measuring 1.6 cm. 2. Bilateral hyperechoic kidneys consistent with medical renal disease. 3. Flores catheter in the bladder. RPTAT: QQ .Allen Mackey MD, MD Date Time Electronically viewed and signed by .Allen Mackey MD, on 04/18/2017 16:27 .R/
--- NOTE | 2017-04-18 17:04 | CONS ---
DATE OF ADMISSION: 04/17/2017 DATE OF CONSULTATION: 04/18/2017 REASON FOR CONSULTATION: Antibiotic management. HISTORY OF PRESENT ILLNESS: The patient is a 81-year-old male, who comes to the emergency room with general weakness on the and is being seen for antibiotic management. His past problems include. 1. History of blindness. 2. Adult-onset diabetes mellitus. 3. History of chronic renal disease. 4. Hypertension. 5. Dysphagia, status post G-tube placement. The patient comes to the emergency room complaining of dizziness for about 5 hours prior to arrival in the emergency room on the . He denied headache, fever or chills. He has an indwelling Flores catheter that was changed 1 month ago and a G-tube. No antipyretics were given prior to his arrival. On admission his white count was 12.3, H and H 11.2 and 35.6, platelet count 381,000. BUN and creatinine 146/4.4 consistent with renal failure. PAST MEDICAL HISTORY: Includes history of hip surgery, in addition the patient has a history of atrial fibrillation, and as noted, hypertension, diabetes. Patient has a history of CVA with left lower extremity weakness, a history of GI bleed in the past, and chronic renal disease. PHYSICAL EXAMINATION: GENERAL: Patient is a chronically ill-appearing male, who is awake, responsive, in no acute distress. VITAL SIGNS: Stable, he is afebrile. SKIN: Without generalized rash. HEENT: Within normal limits. He is blind. Able to perceive light. NECK: Supple. Lymph nodes not palpable. CHEST: Decreased breath sounds at the bases. HEART: Irregularly irregular rhythm without murmur or gallop. ABDOMEN: Abdomen is soft, nontender, nondistended. He has a G- tube in place. EXTREMITIES: Without cyanosis, clubbing, or edema. He has muscle atrophy of lower extremities bilaterally. RECTAL/GENITAL: Deferred. Flores catheter in place. NEUROLOGICAL: Patient ambulates with a walker. Has a history of CVA in the past with lower extremity weakness. IMPRESSION AND PLAN: Patient had urine culture, which grew out gram-negative rods. His blood cultures are negative. Chest x- ray shows calcified aorta, atherosclerosis, hyperinflated clear lungs. His urinalysis showed 3 plus leukocyte esterase and greater than 180 white cells per high-powered field as a cause for his weakness. The patient was started on cefepime 1 g q.24 and also on vancomycin 1 dose. I will await the results of the cultures. I will dictate my findings to Dr. Cheema. Dictated By: Michael Garcia MD JD/[email or web address]/jade /Document#: [id number]
[2017-04-18 17:27] LABS: PROTEIN/CREAT RATIO 18.39 RATIO
[2017-04-18] MEDS: CEFEPIME 2GM/50 ML (PMX) 50 ML IVPB SCH (17:56)
--- NOTE | 2017-04-18 23:11 | CONS ---
DATE OF ADMISSION: 04/17/2017 DATE OF CONSULTATION: 04/18/2017 HISTORY OF PRESENT ILLNESS: Patient with history of CKD, history of G-tube placement, history of pneumonia, history of metabolic encephalopathy, history of protein calorie malnutrition, history of diabetes mellitus, history of diastolic congestive heart failure, history of hypertension, dyslipidemia, history of urinary retention with Flores catheter, history of CVA. The patient now presents with weakness. Now complaining of dizziness. Noted to have electrolyte imbalance, and nephrology consultation requested. PAST MEDICAL HISTORY: Positive for CKD, failure to thrive, G- tube placement, pneumonia, history of metabolic encephalopathy, history of diabetes mellitus, history of diastolic congestive heart failure, hypertension, dyslipidemia, Flores catheter. ALLERGIES: NEGATIVE. FAMILY HISTORY: Noncontributory. SOCIAL HISTORY: Negative. MEDICATION HISTORY: The patient was on: 1. Fosamax. 2. Amiodarone. 3. Lipitor. 4. Bisacodyl. 5. Diphenhydramine. 6. Gabapentin. 7. Glucagon. 8. Hydralazine. 9. Insulin. 10. Melatonin. 11. Omeprazole. 12. Tamsulosin. CURRENT MEDICATIONS: The patient is on: 1. Cefepime. 2. Rocephin. 3. Saline at 100 mL/hour. 4. Vancomycin. 5. Tylenol. 6. Albuterol. 7. Amiodarone. 8. Lipitor. 9. Bisacodyl. 10. Calcium chloride previously. 11. Patient received Lasix x1. 12. Lantus insulin. 13. NovoLog. 14. Zofran. REVIEW OF SYSTEMS: HEENT: Unremarkable. RESPIRATORY: Unremarkable. CARDIOVASCULAR: Unremarkable. ABDOMEN: Denies any pain. EXTREMITIES: No edema. CENTRAL NERVOUS SYSTEM: Unremarkable. PHYSICAL EXAMINATION: GENERAL: The patient is a thin-looking male, awake, alert, talks very little. VITAL SIGNS: Pulse 83, blood pressure 170/75. HEENT: Head is atraumatic, normocephalic. Pupils are aphakic, no icterus. NECK: Supple. LUNGS: Clear. CARDIOVASCULAR: S1, S2 normal. ABDOMEN: Positive G-tube in place. EXTREMITIES: No cyanosis, clubbing, or edema. CENTRAL NERVOUS SYSTEM: Patient is awake, alert, moving both upper and lower extremities. LABORATORY DATA: WBC 12.3, hematocrit 35.6. Sodium 140, potassium 4.5, BUN 1.16. Abnormal LFTs are noted. Patient's urinalysis: Leukocytes 3+. IMPRESSION: 1. Acute kidney injury. 2. Underlying chronic kidney disease. 3. Acute kidney injury due to severe dehydration. 4. Sepsis. 5. Leukocytosis. 6. Anemia. 7. Hyponatremia. 8. Dehydration. 9. Prerenal azotemia. 10. Cerebrovascular accident. 11. History of gastrointestinal bleed. PLAN: At this point is to bring down sodium and creatinine, continue current IV fluid. Patient will have ultrasound of the kidney, if not done. Orders were done. Dictated By: Rock Cheema MD /[email or web address]/peter /Document#: [id number]
[2017-04-19] VITALS (12 sets, daily range): BP systolic 140–183; BP diastolic 61–87; PULSE 75–86; RESP 20
[2017-04-19 07:29] LABS: BASOPHIL # 0.1 10^3/ul (0.0-0.1); BASOPHILS % 0.8 % (0.0-2.0); EOSINOPHILS % 8.4 % (0.0-7.0); HEMOGLOBIN 10.7 g/dl (14.0-18.0); LYMPHOCYTES # 1.4 10^3/ul (0.8-2.9); LYMPHOCYTES % 11.8 % (15.0-51.0); MEAN CORPUSCULAR HEMOGLOBIN 26.2 pg (29.0-33.0); MEAN CORPUSCULAR HGB CONC 31.5 g/dl (32.0-37.0); MEAN CORPUSCULAR VOLUME 83.1 fl (82.0-101.0); MEAN PLATELET VOLUME 12.6 fl (7.4-10.4); MONOCYTE # 0.9 10^3/ul (0.3-0.9); MONOCYTES % 7.3 % (0.0-11.0); NEUTROPHILS % 71.1 % (39.0-77.0); PLATELET COUNT 280 10^3/UL (140-415); RED BLOOD COUNT 4.09 10^6/ul (4.70-6.10); RED CELL DISTRIBUTION WIDTH 18.8 % (11.5-14.5); WHITE BLOOD COUNT 12.1 10^3/ul (4.8-10.8)
[2017-04-19 07:50] LABS: ALBUMIN 3.2 g/dl (3.3-4.9); ALBUMIN/GLOBULIN RATIO 0.64; CALCIUM 8.4 mg/dl (8.4-10.2); CREATININE 3.64 mg/dl (0.61-1.24); POTASSIUM 4.2 mmol/L (3.5-5.1); TOTAL PROTEIN 8.2 g/dl (6.1-8.1)
[2017-04-19] MEDS: INSULIN ASPART [NOVOLOG] 3 ML PEN SC SCH ×3 (08:00→17:28)
[2017-04-19] MEDS: MULTIVITAMINS THERAPEUTIC TAB GTB SCH (08:31)
[2017-04-19] MEDS: TAMSULOSIN (SR) 0.4 MG CAP PO SCH (08:31)
[2017-04-19] MEDS: ACETAMINOPHEN 325 MG TAB GTB PRN (08:32)
[2017-04-19] MEDS: AMIODARONE 200 MG TAB GTB SCH (08:32)
--- NOTE | 2017-04-19 10:06 | CONS ---
Date/Time of Note Date/Time of Note DATE: 04/19/17 TIME: 09:58 Assessment/Plan Assessment/Plan Chief Complaint/Hosp Course 72 y/o with 1.BISI on CKD with baseline Cr 2.48 > improving 3.64 with iv fluids likely pre renal due to dehydration.Renal U./S negative for hydronephrois 2.Hypernatremia >improving 3.HTN uncontrolled 4 Ecoli UTI on Cefepime and Vancomycin 5 Sepsis due to #4 6 Chronic Afib 7 CVA s/p G tube placement 8 Renal cyst Recs - c/w /2 NS at 100 cc/hr - [facility]WF 100 q 4 - Add norvasc for BP - Repeat labs in am - Renal U/S negative for hydronephrosis - Kayexalate prn Problems: Consultation Date/Type/Reason Admit Date/Time Apr 17, 2017 at 16:39 Initial Consult Date 04/18/17 Type of Consultation: Nephrology 24 HR Interval Summary Free Text/Dictation Pt is doing better I/O1150/2000 neg 850 On 08/24 NS at 100 cc/hr Exam/Review of Systems Vital Signs Vitals Vital Signs Date Time Temp Pulse Resp B/P Pulse Ox O2 Delivery O2 Flow Rate FiO2 04/19/17 08:33 80 04/19/17 07:50 97.9 20 183/86 99 04/18/17 23:02 Nasal Cannula 2.0 Intake and Output 04/18/17 04/18/17 04/19/17 15:00 23:00 07:00 Intake Total 1150 ml Output Total 1000 ml 1000 ml Balance 150 ml -1000 ml Exam Gen:Awake Neck:supple Lungs:clear CVS:Irregular irregular Abdomen:soft, G tube Ext : no edema Results Result Diagram: 04/19/17 0646 04/19/17 0646 Results 24 hrs Laboratory Tests Test 04/18/17 12:13 04/18/17 16:30 04/18/17 17:39 04/18/17 21:32 Bedside Glucose 155 174 169 Urine Random Creatinine 22.45 Urine Random Sodium 92 H Urine Protein/Creatinine Ratio 18.39 Urine Total Protein 413.0 H Test 04/19/17 06:46 04/19/17 08:18 White Blood Count 12.1 H Red Blood Count 4.09 L Hemoglobin 10.7 L Hematocrit 34.0 L Mean Corpuscular Volume 83.1 Mean Corpuscular Hemoglobin 26.2 L Mean Corpuscular Hemoglobin Concent 31.5 L Red Cell Distribution Width 18.8 H Platelet Count 280 Mean Platelet Volume 12.6 H Neutrophils % 71.1 Lymphocytes % 11.8 L Monocytes % 7.3 Eosinophils % 8.4 H Basophils % 0.8 Nucleated Red Blood Cells % 0.0 Neutrophils # (Manual) 8.6 H Lymphocytes # 1.4 Monocytes # 0.9 Eosinophils # 1.0 H Basophils # 0.1 Nucleated Red Blood Cells # 0.0 Sodium Level 143 Potassium Level 4.2 Chloride Level 103 Carbon Dioxide Level 25 Anion Gap 19 H Blood Urea Nitrogen 115 H Creatinine 3.64 H Glucose Level 94 Calcium Level 8.4 Total Bilirubin 0.0 L Direct Bilirubin 0.00 Indirect Bilirubin 0.0 Aspartate Amino Transf (AST/SGOT) 86 H Alanine Aminotransferase (ALT/SGPT) 104 H Alkaline Phosphatase 223 H Total Protein 8.2 H Albumin 3.2 L Globulin 5.00 H Albumin/Globulin Ratio 0.64 Bedside Glucose 111 Medications Medications Current Medications Acetaminophen (Tylenol Tab) 650 mg Q6H PRN GTB PAIN AND OR ELEVATED TEMP Last administered on 04/19/17 08:32; Admin Dose 650 MG; Start 04/17/17 at 18:00 Amiodarone HCl (Cordarone) 100 mg DAILY GTB Last administered on 04/19/17 08: 32; Admin Dose 100 MG; Start 04/18/17 at 09:00 Bisacodyl (Dulcolax Supp) 10 mg Q24H VT Last administered on 04/17/17 23:14; Admin Dose 10 MG; Start 04/17/17 at 18:00 Diphenhydramine HCl (Benadryl) 25 mg Q6H PRN GTB ITCHING; Start 04/17/17 at 18: 00 Hydralazine HCl (Apresoline) 50 mg Q8 PRN GTB ELEVATED BLOOD PRESSURE Last administered on 04/18/17 13:18; Admin Dose 50 MG; Start 04/17/17 at 18:00 Insulin Glargine (Lantus) 20 unit QHS SC Last administered on 04/18/17 21:49; Admin Dose 20 UNIT; Start 04/17/17 at 21:00 Multivitamins Therapeutic (Theragran) 1 tab DAILY GTB Last administered on 04/19 08:31; Admin Dose 1 TAB; Start 04/18/17 at 09:00 Tamsulosin HCl 0.4 mg 0.4 mg DAILY PO Last administered on 04/19/17 08:31; Admin Dose 0.4 MG; Start 04/18/17 at 09:00 Sodium Chloride (1/2 NS) 1,000 ml @ 100 mls/hr Q10H IV Last administered on 23:37; Admin Dose 100 MLS/HR; Start 04/17/17 at 18:30 Diagnostic Test (Pha) (Accu-Chek) 1 ea 02 XX ; Start 04/18/17 at 02:00 Miscellaneous Information 1 ea NOTE XX ; Start 04/17/17 at 21:00 Glucose (Glutose) 15 gm Q15M PRN PO DECREASED GLUCOSE; Start 04/17/17 at 21:00 Glucose (Glutose) 22.5 gm Q15M PRN PO DECREASED GLUCOSE; Start 04/17/17 at 21: 00 Dextrose (D50w Syringe) 25 ml Q15M PRN IV DECREASED GLUCOSE; Start 04/17/17 at 21:00 Dextrose (D50w Syringe) 50 ml Q15M PRN IV DECREASED GLUCOSE; Start 04/17/17 at 21:00 Glucagon (Glucagen) 1 mg Q15M PRN IM DECREASED GLUCOSE; Start 04/17/17 at 21:00 Glucose (Glutose) 15 gm Q15M PRN BUCCAL DECREASED GLUCOSE; Start 04/17/17 at 21 :00 Ondansetron HCl 4 mg 4 mg Q6H PRN IV NAUSEA AND/OR VOMITING; Start 04/18/17 at 00:30 Cefepime HCl (Maxipime 2gm/50 ml (Pmx)) 50 ml @ 100 mls/hr Q24H IVPB Last administered on 04/18/17 17:56; Admin Dose 100 MLS/HR; Start 04/18/17 at 17:00 PORTIA OLIVER MD Apr 19, 2017 10:06
[2017-04-19] MEDS: SOD CHLORIDE 0.45% 1,000 ML IV SCH ×2 (10:25→21:10)
[2017-04-19] MEDS: CEFEPIME 2GM/50 ML (PMX) 50 ML IVPB SCH (17:28)
[2017-04-19] MEDS: BISACODYL 10 MG SUPP PR SCH (17:28)
--- NOTE | 2017-04-19 19:06 | PN ---
Date/Time of Note Date/Time of Note DATE: 04/19/17 TIME: 18:58 Assessment/Plan VTE Prophylaxis VTE Prophylaxis Intervention: SCD's Lines/Catheters IV Catheter Type (from [facility]): Peripheral IV Urinary Cath still in place: Yes Reason Cath still needed: urinary retention Assessment/Plan Chief Complaint/Hosp Course Patient tolerates G-tube feeding well, Flores catheter is changed today, blood sugar is well controlled. Problems: Assessment/Plan - E. coli urinary tract infection, continue cefepime. Dr. Garcia is following infection disease consultation. - Acute kidney injury on chronic kidney disease. Dr. Cheema is following in nephrology consultation. - History of cerebrovascular accident - Diabetes mellitus. Continue Lantus and NovoLog. - Diastolic congestive heart failure. Continue to monitor intake and output. - Hypertension. Continue Norvasc. - Hyperlipidemia. Continue statin. - Urinary retention with Flores catheter. Further recommendations based on clinical course. Plan of care discussed with Dr. Patel Exam/Review of Systems Vital Signs Vitals Vital Signs Date Time Temp Pulse Resp B/P Pulse Ox O2 Delivery O2 Flow Rate FiO2 04/19/17 16:54 75 04/19/17 15:49 97.4 20 162/77 98 04/18/17 23:02 Nasal Cannula 2.0 Intake and Output 04/18/17 04/18/17 04/19/17 15:00 23:00 07:00 Intake Total 1150 ml Output Total 1000 ml 1000 ml Balance 150 ml -1000 ml Exam Constitutional: alert Head: normocephalic Cardiovascular: nl pulses Gastrointestinal: non-tender, other (G-tube), soft Genitourinary - Male: other (Flores) Musculoskeletal: muscle weakness Extremities: normal pulses Results Result Diagram: 04/19/17 0646 04/19/17 0646 Results 24 hrs Laboratory Tests Test 04/18/17 21:32 04/19/17 06:46 04/19/17 08:18 04/19/17 12:20 Bedside Glucose 169 111 118 White Blood Count 12.1 H Red Blood Count 4.09 L Hemoglobin 10.7 L Hematocrit 34.0 L Mean Corpuscular Volume 83.1 Mean Corpuscular Hemoglobin 26.2 L Mean Corpuscular Hemoglobin Concent 31.5 L Red Cell Distribution Width 18.8 H Platelet Count 280 Mean Platelet Volume 12.6 H Neutrophils % 71.1 Lymphocytes % 11.8 L Monocytes % 7.3 Eosinophils % 8.4 H Basophils % 0.8 Nucleated Red Blood Cells % 0.0 Neutrophils # (Manual) 8.6 H Lymphocytes # 1.4 Monocytes # 0.9 Eosinophils # 1.0 H Basophils # 0.1 Nucleated Red Blood Cells # 0.0 Sodium Level 143 Potassium Level 4.2 Chloride Level 103 Carbon Dioxide Level 25 Anion Gap 19 H Blood Urea Nitrogen 115 H Creatinine 3.64 H Glucose Level 94 Calcium Level 8.4 Total Bilirubin 0.0 L Direct Bilirubin 0.00 Indirect Bilirubin 0.0 Aspartate Amino Transf (AST/SGOT) 86 H Alanine Aminotransferase (ALT/SGPT) 104 H Alkaline Phosphatase 223 H Total Protein 8.2 H Albumin 3.2 L Globulin 5.00 H Albumin/Globulin Ratio 0.64 Test 04/19/17 17:27 Bedside Glucose 120 Medications Medications Current Medications Acetaminophen (Tylenol Tab) 650 mg Q6H PRN GTB PAIN AND OR ELEVATED TEMP Last administered on 04/19/17 08:32; Admin Dose 650 MG; Start 04/17/17 at 18:00 Amiodarone HCl (Cordarone) 100 mg DAILY GTB Last administered on 04/19/17 08: 32; Admin Dose 100 MG; Start 04/18/17 at 09:00 Bisacodyl (Dulcolax Supp) 10 mg Q24H MD Last administered on 04/19/17 17:28; Admin Dose 10 MG; Start 04/17/17 at 18:00 Diphenhydramine HCl (Benadryl) 25 mg Q6H PRN GTB ITCHING; Start 04/17/17 at 18: 00 Hydralazine HCl (Apresoline) 50 mg Q8 PRN GTB ELEVATED BLOOD PRESSURE Last administered on 04/18/17 13:18; Admin Dose 50 MG; Start 04/17/17 at 18:00 Insulin Glargine (Lantus) 20 unit QHS SC Last administered on 04/18/17 21:49; Admin Dose 20 UNIT; Start 04/17/17 at 21:00 Multivitamins Therapeutic (Theragran) 1 tab DAILY GTB Last administered on 04/19 08:31; Admin Dose 1 TAB; Start 04/18/17 at 09:00 Tamsulosin HCl 0.4 mg 0.4 mg DAILY PO Last administered on 04/19/17 08:31; Admin Dose 0.4 MG; Start 04/18/17 at 09:00 Sodium Chloride (1/2 NS) 1,000 ml @ 100 mls/hr Q10H IV Last administered on 10:25; Admin Dose 100 MLS/HR; Start 04/17/17 at 18:30 Diagnostic Test (Pha) (Accu-Chek) 1 ea 02 XX ; Start 04/18/17 at 02:00 Miscellaneous Information 1 ea NOTE XX ; Start 04/17/17 at 21:00 Glucose (Glutose) 15 gm Q15M PRN PO DECREASED GLUCOSE; Start 04/17/17 at 21:00 Glucose (Glutose) 22.5 gm Q15M PRN PO DECREASED GLUCOSE; Start 04/17/17 at 21: 00 Dextrose (D50w Syringe) 25 ml Q15M PRN IV DECREASED GLUCOSE; Start 04/17/17 at 21:00 Dextrose (D50w Syringe) 50 ml Q15M PRN IV DECREASED GLUCOSE; Start 04/17/17 at 21:00 Glucagon (Glucagen) 1 mg Q15M PRN IM DECREASED GLUCOSE; Start 04/17/17 at 21:00 Glucose (Glutose) 15 gm Q15M PRN BUCCAL DECREASED GLUCOSE; Start 04/17/17 at 21 :00 Ondansetron HCl 4 mg 4 mg Q6H PRN IV NAUSEA AND/OR VOMITING; Start 04/18/17 at 00:30 Cefepime HCl (Maxipime 2gm/50 ml (Pmx)) 50 ml @ 100 mls/hr Q24H IVPB Last administered on 04/19/17 17:28; Admin Dose 100 MLS/HR; Start 04/18/17 at 17:00 Amlodipine Besylate (Norvasc) 5 mg DAILY GTB ; Start 04/20/17 at 09:00 GEOVANY IBARRA Apr 19, 2017 19:06
[2017-04-19] MEDS: INSULIN GLARGINE [LANtus] 3 ML PEN SC SCH (21:17)
[2017-04-20] VITALS (11 sets, daily range): BP systolic 136–183; BP diastolic 65–81; PULSE 73–85; RESP 17–20
[2017-04-20] MEDS ORDERED: INSULIN ASPART [NOVOLOG] 3 ML PEN SC SCH
[2017-04-20] MEDS: ACCU-CHEK XX SCH (02:18)
--- NOTE | 2017-04-20 04:00 | PN ---
DATE: 04/19/2017 SUBJECTIVE DATA: No events. Patient is lethargic, arousable, looks comfortable. No fevers. VITAL SIGNS: Temperature 97.4, pulse 77, respirations 20, blood pressure 162/77, saturation 98 percent. LABORATORY AND DIAGNOSTIC DATA: WBC 12.8, platelets 280, neutrophils 71.1. BUN 115, creatinine 3.64. Microbiology: Urine culture growing E coli. INDWELLING: PEG, Flores. ANTIMICROBIALS: Patient is on: 1. Cefepime. 2. IV vancomycin. DIAGNOSTICS: Chest x-ray on admission revealed hypoinflated clear lungs. Renal ultrasound yesterday revealed bilateral hyperechoic kidneys, consistent with medical renal disease. Flores catheter in the bladder. PHYSICAL EXAMINATION: GENERAL: This is a cachectic, chronically ill-appearing, elderly man, who is in no distress. HEENT: Head atraumatic, normocephalic. Sclerae anicteric. Buccal mucosa dry. NECK: Supple. CHEST: Rise symmetrical. Breath sounds diminished at bases. HEART: S1, S2. ABDOMEN: Soft, bowel sounds present. EXTREMITIES: Without cyanosis. ASSESSMENT: 1. Recurrent urinary tract infection. 2. Jtolw-be-nxkwsoa renal failure. 3. Dysphagia. 4. Chronic atrial fibrillation. 5. Hypertension. PLAN: We are going to discontinue vancomycin. Continue patient on cefepime. Monitor renal function closely. Follow Nephrology recommendations. Continue anti-aspiration measures. Dictated By: Maria Brothers NP /[email or web address]/gaye /Document#: [id number]
[2017-04-20] MEDS: SOD CHLORIDE 0.45% 1,000 ML IV SCH ×2 (05:57→15:41)
[2017-04-20] MEDS: Insulin NOVOLOG SS MILD Algorithm (NPO/TPN/ENTERAL FEEDS) SC SCH ×5 (05:57→23:47)
[2017-04-20 07:39] LABS: BASOPHIL # 0.1 10^3/ul (0.0-0.1); BASOPHILS % 0.7 % (0.0-2.0); EOSINOPHILS # 1.2 10^3/ul (0.0-0.5); EOSINOPHILS % 9.4 % (0.0-7.0); HEMATOCRIT 34.4 % (42.0-52.0); HEMOGLOBIN 10.9 g/dl (14.0-18.0); LYMPHOCYTES # 2.2 10^3/ul (0.8-2.9); LYMPHOCYTES % 17.4 % (15.0-51.0); MEAN CORPUSCULAR HEMOGLOBIN 26.7 pg (29.0-33.0); MEAN CORPUSCULAR HGB CONC 31.7 g/dl (32.0-37.0); MEAN CORPUSCULAR VOLUME 84.3 fl (82.0-101.0); MEAN PLATELET VOLUME 12.7 fl (7.4-10.4); MONOCYTE # 0.8 10^3/ul (0.3-0.9); MONOCYTES % 6.7 % (0.0-11.0); NEUTROPHILS % 65.3 % (39.0-77.0); PLATELET COUNT 281 10^3/UL (140-415); RED BLOOD COUNT 4.08 10^6/ul (4.70-6.10); RED CELL DISTRIBUTION WIDTH 18.4 % (11.5-14.5); WHITE BLOOD COUNT 12.5 10^3/ul (4.8-10.8)
[2017-04-20 08:01] LABS: MAGNESIUM 1.9 mg/dl (1.7-2.5); PHOSPHORUS 6.3 mg/dl (2.5-4.9)
[2017-04-20 08:07] LABS: CALCIUM 8.3 mg/dl (8.4-10.2); CREATININE 3.23 mg/dl (0.61-1.24); POTASSIUM 4.4 mmol/L (3.5-5.1)
[2017-04-20] MEDS: AMIODARONE 200 MG TAB GTB SCH (08:08)
[2017-04-20] MEDS: MULTIVITAMINS THERAPEUTIC TAB GTB SCH (08:08)
[2017-04-20] MEDS: AMLODIPINE 5 MG TAB GTB SCH (08:08)
[2017-04-20] MEDS: TAMSULOSIN (SR) 0.4 MG CAP PO SCH (08:08)
--- NOTE | 2017-04-20 13:16 | CONS ---
Date/Time of Note Date/Time of Note DATE: 04/20/17 TIME: 13:14 Assessment/Plan Assessment/Plan Chief Complaint/Hosp Course SUBJECTIVE DATA: No acute changes overnight patient is sleeping looks comfortable Temperature 97.8 pulse 80 respirations 17 blood pressure 157/74 saturation 98 on room air WBC 12.5 H&H 10.9 and 34.4 platelets 281 no shift BUN 108 creatinine 3.23 Microbiology: Urine culture growing E coli. INDWELLING: PEG, Flores. ANTIMICROBIALS: Cefepime DIAGNOSTICS: Chest x-ray on admission revealed hypoinflated clear lungs. Renal ultrasound yesterday revealed bilateral hyperechoic kidneys, consistent with medical renal disease. Flores catheter in the bladder. PHYSICAL EXAMINATION: GENERAL: This is a cachectic, chronically ill-appearing, elderly man, who is in no distress. HEENT: Head atraumatic, normocephalic. Sclerae anicteric. Buccal mucosa dry. NECK: Supple. CHEST: Rise symmetrical. Breath sounds diminished at bases. HEART: S1, S2. ABDOMEN: Soft, bowel sounds present. EXTREMITIES: Without cyanosis. ASSESSMENT: 1. Recurrent urinary tract infection. 2. Opxvw-kg-benwdle renal failure. 3. Dysphagia. 4. Chronic atrial fibrillation. 5. Hypertension. PLAN: Remains unchanged, continue antibiotics, anti-aspiration measures, follow nephrology recommendations Discussed with staff Problems: Consultation Date/Type/Reason Admit Date/Time Apr 17, 2017 at 16:39 Initial Consult Date 04/18/17 Type of Consultation: ID Exam/Review of Systems Vital Signs Vitals Vital Signs Date Time Temp Pulse Resp B/P Pulse Ox O2 Delivery O2 Flow Rate FiO2 04/20/17 12:23 74 04/20/17 12:10 97.8 17 157/74 98 04/18/17 23:02 Nasal Cannula 2.0 Intake and Output 04/19/17 04/19/17 04/20/17 15:00 23:00 07:00 Intake Total 850 ml 1050 ml Output Total 1200 ml 1000 ml Balance -350 ml 50 ml Results Result Diagram: 04/20/17 0650 04/20/17 0650 Results 24 hrs Laboratory Tests Test 04/19/17 17:27 04/19/17 21:13 04/20/17 01:51 04/20/17 02:12 Bedside Glucose 120 111 68 L 70 Test 04/20/17 05:32 04/20/17 06:50 04/20/17 09:09 04/20/17 11:39 Bedside Glucose 79 70 90 White Blood Count 12.5 H Red Blood Count 4.08 L Hemoglobin 10.9 L Hematocrit 34.4 L Mean Corpuscular Volume 84.3 Mean Corpuscular Hemoglobin 26.7 L Mean Corpuscular Hemoglobin Concent 31.7 L Red Cell Distribution Width 18.4 H Platelet Count 281 Mean Platelet Volume 12.7 H Neutrophils % 65.3 Lymphocytes % 17.4 Monocytes % 6.7 Eosinophils % 9.4 H Basophils % 0.7 Nucleated Red Blood Cells % 0.0 Neutrophils # (Manual) 8.2 H Lymphocytes # 2.2 Monocytes # 0.8 Eosinophils # 1.2 H Basophils # 0.1 Nucleated Red Blood Cells # 0.0 Sodium Level 138 Potassium Level 4.4 Chloride Level 98 Carbon Dioxide Level 27 Anion Gap 17 H Blood Urea Nitrogen 108 H Creatinine 3.23 H Glucose Level 53 #L Calcium Level 8.3 L Phosphorus Level 6.3 H Magnesium Level 1.9 Medications Medications Current Medications Acetaminophen (Tylenol Tab) 650 mg Q6H PRN GTB PAIN AND OR ELEVATED TEMP Last administered on 04/19/17 08:32; Admin Dose 650 MG; Start 04/17/17 at 18:00 Amiodarone HCl (Cordarone) 100 mg DAILY GTB Last administered on 04/20/17 08: 08; Admin Dose 100 MG; Start 04/18/17 at 09:00 Bisacodyl (Dulcolax Supp) 10 mg Q24H NM Last administered on 04/19/17 17:28; Admin Dose 10 MG; Start 04/17/17 at 18:00 Diphenhydramine HCl (Benadryl) 25 mg Q6H PRN GTB ITCHING; Start 04/17/17 at 18: 00 Hydralazine HCl (Apresoline) 50 mg Q8 PRN GTB ELEVATED BLOOD PRESSURE Last administered on 04/18/17 13:18; Admin Dose 50 MG; Start 04/17/17 at 18:00 Insulin Glargine (Lantus) 20 unit QHS SC Last administered on 04/19/17 21:17; Admin Dose 20 UNIT; Start 04/17/17 at 21:00 Multivitamins Therapeutic (Theragran) 1 tab DAILY GTB Last administered on 04/20 08:08; Admin Dose 1 TAB; Start 04/18/17 at 09:00 Tamsulosin HCl 0.4 mg 0.4 mg DAILY PO Last administered on 04/20/17 08:08; Admin Dose 0.4 MG; Start 04/18/17 at 09:00 Sodium Chloride (1/2 NS) 1,000 ml @ 100 mls/hr Q10H IV Last administered on 05:57; Admin Dose 100 MLS/HR; Start 04/17/17 at 18:30 Diagnostic Test (Pha) (Accu-Chek) 1 ea 02 XX Last administered on 04/20/17 02: 18; Admin Dose 1 EA; Start 04/18/17 at 02:00 Miscellaneous Information 1 ea NOTE XX ; Start 04/17/17 at 21:00 Glucose (Glutose) 15 gm Q15M PRN PO DECREASED GLUCOSE; Start 04/17/17 at 21:00 Glucose (Glutose) 22.5 gm Q15M PRN PO DECREASED GLUCOSE; Start 04/17/17 at 21: 00 Dextrose (D50w Syringe) 25 ml Q15M PRN IV DECREASED GLUCOSE; Start 04/17/17 at 21:00 Dextrose (D50w Syringe) 50 ml Q15M PRN IV DECREASED GLUCOSE; Start 04/17/17 at 21:00 Glucagon (Glucagen) 1 mg Q15M PRN IM DECREASED GLUCOSE; Start 04/17/17 at 21:00 Glucose (Glutose) 15 gm Q15M PRN BUCCAL DECREASED GLUCOSE; Start 04/17/17 at 21 :00 Ondansetron HCl 4 mg 4 mg Q6H PRN IV NAUSEA AND/OR VOMITING; Start 04/18/17 at 00:30 Cefepime HCl (Maxipime 2gm/50 ml (Pmx)) 50 ml @ 100 mls/hr Q24H IVPB Last administered on 04/19/17 17:28; Admin Dose 100 MLS/HR; Start 04/18/17 at 17:00 Amlodipine Besylate (Norvasc) 5 mg DAILY GTB Last administered on 04/20/17 08: 08; Admin Dose 5 MG; Start 04/20/17 at 09:00 Insulin Aspart (Novolog Insulin Pen) (Adult SC Insulin - Mild Algorithm)... Q6 SC ; Start 04/20/17 at 00:00 KAYLA CASTREJON NP Apr 20, 2017 13:16
--- NOTE | 2017-04-20 13:32 | CONS ---
Date/Time of Note Date/Time of Note DATE: 04/20/17 TIME: 13:26 Assessment/Plan Assessment/Plan Chief Complaint/Hosp Course 72 y/o with 1.BISI on CKD with baseline Cr 2.48 > improving 3.64>3.2 and BUN 108 FROM 146 ( elevated BUN/Cr ratio consistent with prerenal) with iv fluids likely pre renal due to dehydration.Renal U./S negative for hydronephrosis 2.Hypernatremia >improving 3.HTN uncontrolled > added Amlodipine 4 Ecoli UTI on Cefepime 5 Sepsis due to #4 6 Chronic Afib 7 CVA s/p G tube placement 8 Renal cyst 9 Hyperphos due to reduced renal clearence Recs - c/w 1/2 NS at 100 cc/hr, labs improving slowly - [facility] 100 q 4 - c/w norvasc for BP, titrate it to 10 mg based on pressures - Repeat labs in am - Renal U/S negative for hydronephrosis - Kayexalate prn - Will not give Phos binder now as Renal function improving - c/w Flores - Primary team to readjust insulin due to hypoglycemia Problems: Consultation Date/Type/Reason Admit Date/Time Apr 17, 2017 at 16:39 Initial Consult Date 04/18/17 Type of Consultation: Nephrology 24 HR Interval Summary Free Text/Dictation Overall improving Uop 2200. On 08/24 NS at 100 cc/hr Hypoglycemic Exam/Review of Systems Vital Signs Vitals Vital Signs Date Time Temp Pulse Resp B/P Pulse Ox O2 Delivery O2 Flow Rate FiO2 04/20/17 12:23 74 04/20/17 12:10 97.8 17 157/74 98 04/18/17 23:02 Nasal Cannula 2.0 Intake and Output 04/19/17 04/19/17 04/20/17 15:00 23:00 07:00 Intake Total 850 ml 1050 ml Output Total 1200 ml 1000 ml Balance -350 ml 50 ml Results Result Diagram: 04/20/17 0650 04/20/17 0650 Results 24 hrs Laboratory Tests Test 04/19/17 17:27 04/19/17 21:13 04/20/17 01:51 04/20/17 02:12 Bedside Glucose 120 111 68 L 70 Test 04/20/17 05:32 04/20/17 06:50 04/20/17 09:09 04/20/17 11:39 Bedside Glucose 79 70 90 White Blood Count 12.5 H Red Blood Count 4.08 L Hemoglobin 10.9 L Hematocrit 34.4 L Mean Corpuscular Volume 84.3 Mean Corpuscular Hemoglobin 26.7 L Mean Corpuscular Hemoglobin Concent 31.7 L Red Cell Distribution Width 18.4 H Platelet Count 281 Mean Platelet Volume 12.7 H Neutrophils % 65.3 Lymphocytes % 17.4 Monocytes % 6.7 Eosinophils % 9.4 H Basophils % 0.7 Nucleated Red Blood Cells % 0.0 Neutrophils # (Manual) 8.2 H Lymphocytes # 2.2 Monocytes # 0.8 Eosinophils # 1.2 H Basophils # 0.1 Nucleated Red Blood Cells # 0.0 Sodium Level 138 Potassium Level 4.4 Chloride Level 98 Carbon Dioxide Level 27 Anion Gap 17 H Blood Urea Nitrogen 108 H Creatinine 3.23 H Glucose Level 53 #L Calcium Level 8.3 L Phosphorus Level 6.3 H Magnesium Level 1.9 Medications Medications Current Medications Acetaminophen (Tylenol Tab) 650 mg Q6H PRN GTB PAIN AND OR ELEVATED TEMP Last administered on 04/19/17 08:32; Admin Dose 650 MG; Start 04/17/17 at 18:00 Amiodarone HCl (Cordarone) 100 mg DAILY GTB Last administered on 04/20/17 08: 08; Admin Dose 100 MG; Start 04/18/17 at 09:00 Bisacodyl (Dulcolax Supp) 10 mg Q24H [place] Last administered on 04/19/17 17:28; Admin Dose 10 MG; Start 04/17/17 at 18:00 Diphenhydramine HCl (Benadryl) 25 mg Q6H PRN GTB ITCHING; Start 04/17/17 at 18: 00 Hydralazine HCl (Apresoline) 50 mg Q8 PRN GTB ELEVATED BLOOD PRESSURE Last administered on 04/18/17 13:18; Admin Dose 50 MG; Start 04/17/17 at 18:00 Insulin Glargine (Lantus) 20 unit QHS SC Last administered on 04/19/17 21:17; Admin Dose 20 UNIT; Start 04/17/17 at 21:00 Multivitamins Therapeutic (Theragran) 1 tab DAILY GTB Last administered on 04/20 08:08; Admin Dose 1 TAB; Start 04/18/17 at 09:00 Tamsulosin HCl 0.4 mg 0.4 mg DAILY PO Last administered on 04/20/17 08:08; Admin Dose 0.4 MG; Start 04/18/17 at 09:00 Sodium Chloride (1/2 NS) 1,000 ml @ 100 mls/hr Q10H IV Last administered on 05:57; Admin Dose 100 MLS/HR; Start 04/17/17 at 18:30 Diagnostic Test (Pha) (Accu-Chek) 1 ea 02 XX Last administered on 04/20/17 02: 18; Admin Dose 1 EA; Start 04/18/17 at 02:00 Miscellaneous Information 1 ea NOTE XX ; Start 04/17/17 at 21:00 Glucose (Glutose) 15 gm Q15M PRN PO DECREASED GLUCOSE; Start 04/17/17 at 21:00 Glucose (Glutose) 22.5 gm Q15M PRN PO DECREASED GLUCOSE; Start 04/17/17 at 21: 00 Dextrose (D50w Syringe) 25 ml Q15M PRN IV DECREASED GLUCOSE; Start 04/17/17 at 21:00 Dextrose (D50w Syringe) 50 ml Q15M PRN IV DECREASED GLUCOSE; Start 04/17/17 at 21:00 Glucagon (Glucagen) 1 mg Q15M PRN IM DECREASED GLUCOSE; Start 04/17/17 at 21:00 Glucose (Glutose) 15 gm Q15M PRN BUCCAL DECREASED GLUCOSE; Start 04/17/17 at 21 :00 Ondansetron HCl 4 mg 4 mg Q6H PRN IV NAUSEA AND/OR VOMITING; Start 04/18/17 at 00:30 Cefepime HCl (Maxipime 2gm/50 ml (Pmx)) 50 ml @ 100 mls/hr Q24H IVPB Last administered on 04/19/17 17:28; Admin Dose 100 MLS/HR; Start 04/18/17 at 17:00 Amlodipine Besylate (Norvasc) 5 mg DAILY GTB Last administered on 04/20/17 08: 08; Admin Dose 5 MG; Start 04/20/17 at 09:00 Insulin Aspart (Novolog Insulin Pen) (Adult SC Insulin - Mild Algorithm)... Q6 SC ; Start 04/20/17 at 00:00 PORTIA OLIVER MD Apr 20, 2017 13:32
[2017-04-20] MEDS: BISACODYL 10 MG SUPP PR SCH (17:21)
[2017-04-20] MEDS: CEFEPIME 2GM/50 ML (PMX) 50 ML IVPB SCH (17:21)
[2017-04-20] MEDS: DEXTROSE 50% 50 ML SYRINGE IV PRN (17:22)
--- NOTE | 2017-04-20 17:57 | PN ---
Date/Time of Note Date/Time of Note DATE: 04/20/17 TIME: 17:55 Assessment/Plan VTE Prophylaxis VTE Prophylaxis Intervention: SCD's Lines/Catheters [facility]ter Type (from [facility]): Peripheral IV Urinary Cath still in place: Yes Reason Cath still needed: urinary retention Assessment/Plan Chief Complaint/Hosp Course Patient with episode of hypoglycemia in the morning, Lantus decreased, G tube formula changed to a nova source renal, continue to monitor blood sugar Assessment/Plan - E. coli urinary tract infection, continue cefepime. Dr. Garcia is following infection disease consultation. - Acute kidney injury on chronic kidney disease. Dr. Cheema is following in nephrology consultation. - History of cerebrovascular accident - Diabetes mellitus. Continue Lantus and NovoLog. - Diastolic congestive heart failure. Continue to monitor intake and output. - Hypertension. Continue Norvasc. - Hyperlipidemia. Continue statin. - Urinary retention with Flores catheter. Further recommendations based on clinical course. Plan of care discussed with Dr. Patel Problems: Exam/Review of Systems Vital Signs Vitals Vital Signs Date Time Temp Pulse Resp B/P Pulse Ox O2 Delivery O2 Flow Rate FiO2 04/20/17 16:15 98.3 81 17 146/65 98 04/18/17 23:02 Nasal Cannula 2.0 Intake and Output 04/19/17 04/19/17 04/20/17 15:00 23:00 07:00 Intake Total 850 ml 1050 ml Output Total 1200 ml 1000 ml Balance -350 ml 50 ml Exam Constitutional: alert Head: normocephalic Cardiovascular: nl pulses Gastrointestinal: non-tender, other (G-tube), soft Genitourinary - Male: other (Flores) Musculoskeletal: muscle weakness Extremities: normal pulses Results Result Diagram: 04/20/17 0650 04/20/17 0650 Results 24 hrs Laboratory Tests Test 04/19/17 21:13 04/20/17 01:51 04/20/17 02:12 04/20/17 05:32 Bedside Glucose 111 68 L 70 79 Test 04/20/17 06:50 04/20/17 09:09 04/20/17 11:39 04/20/17 17:14 White Blood Count 12.5 H Red Blood Count 4.08 L Hemoglobin 10.9 L Hematocrit 34.4 L Mean Corpuscular Volume 84.3 Mean Corpuscular Hemoglobin 26.7 L Mean Corpuscular Hemoglobin Concent 31.7 L Red Cell Distribution Width 18.4 H Platelet Count 281 Mean Platelet Volume 12.7 H Neutrophils % 65.3 Lymphocytes % 17.4 Monocytes % 6.7 Eosinophils % 9.4 H Basophils % 0.7 Nucleated Red Blood Cells % 0.0 Neutrophils # (Manual) 8.2 H Lymphocytes # 2.2 Monocytes # 0.8 Eosinophils # 1.2 H Basophils # 0.1 Nucleated Red Blood Cells # 0.0 Sodium Level 138 Potassium Level 4.4 Chloride Level 98 Carbon Dioxide Level 27 Anion Gap 17 H Blood Urea Nitrogen 108 H Creatinine 3.23 H Glucose Level 53 #L Calcium Level 8.3 L Phosphorus Level 6.3 H Magnesium Level 1.9 Bedside Glucose 70 90 64 L Test 04/20/17 17:36 04/20/17 17:50 Bedside Glucose 146 142 Medications Medications Current Medications Acetaminophen (Tylenol Tab) 650 mg Q6H PRN GTB PAIN AND OR ELEVATED TEMP Last administered on 04/19/17 08:32; Admin Dose 650 MG; Start 04/17/17 at 18:00 Amiodarone HCl (Cordarone) 100 mg DAILY GTB Last administered on 04/20/17 08: 08; Admin Dose 100 MG; Start 04/18/17 at 09:00 Bisacodyl (Dulcolax Supp) 10 mg Q24H SC Last administered on 04/20/17 17:21; Admin Dose 10 MG; Start 04/17/17 at 18:00 Diphenhydramine HCl (Benadryl) 25 mg Q6H PRN GTB ITCHING; Start 04/17/17 at 18: 00 Hydralazine HCl (Apresoline) 50 mg Q8 PRN GTB ELEVATED BLOOD PRESSURE Last administered on 04/18/17 13:18; Admin Dose 50 MG; Start 04/17/17 at 18:00 Multivitamins Therapeutic (Theragran) 1 tab DAILY GTB Last administered on 04/20 08:08; Admin Dose 1 TAB; Start 04/18/17 at 09:00 Tamsulosin HCl 0.4 mg 0.4 mg DAILY PO Last administered on 04/20/17 08:08; Admin Dose 0.4 MG; Start 04/18/17 at 09:00 Sodium Chloride (1/2 NS) 1,000 ml @ 100 mls/hr Q10H IV Last administered on 05:57; Admin Dose 100 MLS/HR; Start 04/17/17 at 18:30 Diagnostic Test (Pha) (Accu-Chek) 1 ea 02 XX Last administered on 04/20/17 02: 18; Admin Dose 1 EA; Start 04/18/17 at 02:00 Miscellaneous Information 1 ea NOTE XX ; Start 04/17/17 at 21:00 Glucose (Glutose) 15 gm Q15M PRN PO DECREASED GLUCOSE; Start 04/17/17 at 21:00 Glucose (Glutose) 22.5 gm Q15M PRN PO DECREASED GLUCOSE; Start 04/17/17 at 21: 00 Dextrose (D50w Syringe) 25 ml Q15M PRN IV DECREASED GLUCOSE Last administered on 04/20/17 17:22; Admin Dose 25 ML; Start 04/17/17 at 21:00 Dextrose (D50w Syringe) 50 ml Q15M PRN IV DECREASED GLUCOSE; Start 04/17/17 at 21:00 Glucagon (Glucagen) 1 mg Q15M PRN IM DECREASED GLUCOSE; Start 04/17/17 at 21:00 Glucose (Glutose) 15 gm Q15M PRN BUCCAL DECREASED GLUCOSE; Start 04/17/17 at 21 :00 Ondansetron HCl 4 mg 4 mg Q6H PRN IV NAUSEA AND/OR VOMITING; Start 04/18/17 at 00:30 Cefepime HCl (Maxipime 2gm/50 ml (Pmx)) 50 ml @ 100 mls/hr Q24H IVPB Last administered on 04/20/17 17:21; Admin Dose 100 MLS/HR; Start 04/18/17 at 17:00 Amlodipine Besylate (Norvasc) 5 mg DAILY GTB Last administered on 04/20/17 08: 08; Admin Dose 5 MG; Start 04/20/17 at 09:00 Insulin Aspart (Novolog Insulin Pen) (Adult SC Insulin - Mild Algorithm)... Q6 SC ; Start 04/20/17 at 00:00 Insulin Glargine (Lantus) 14 unit QHS SC ; Start 04/20/17 at 21:00 GEOVANY IBARRA Apr 20, 2017 17:57
[2017-04-20] MEDS: INSULIN GLARGINE [LANtus] 3 ML PEN SC SCH (21:02)
[2017-04-21] VITALS (13 sets, daily range): BP systolic 145–189; BP diastolic 62–88; PULSE 83–94; RESP 16–19
[2017-04-21] MEDS: ACCU-CHEK XX SCH (02:33)
[2017-04-21] MEDS: SOD CHLORIDE 0.45% 1,000 ML IV SCH ×2 (02:33→12:21)
[2017-04-21] MEDS: Insulin NOVOLOG SS MILD Algorithm (NPO/TPN/ENTERAL FEEDS) SC SCH ×3 (05:48→19:05)
[2017-04-21 08:07] LABS: BASOPHIL # 0.1 10^3/ul (0.0-0.1); BASOPHILS % 1.1 % (0.0-2.0); EOSINOPHILS # 1.2 10^3/ul (0.0-0.5); EOSINOPHILS % 11.5 % (0.0-7.0); HEMATOCRIT 32.2 % (42.0-52.0); HEMOGLOBIN 10.3 g/dl (14.0-18.0); LYMPHOCYTES # 1.5 10^3/ul (0.8-2.9); LYMPHOCYTES % 14.8 % (15.0-51.0); MEAN CORPUSCULAR HEMOGLOBIN 26.4 pg (29.0-33.0); MEAN CORPUSCULAR VOLUME 82.6 fl (82.0-101.0); MEAN PLATELET VOLUME 12.2 fl (7.4-10.4); MONOCYTE # 0.7 10^3/ul (0.3-0.9); MONOCYTES % 6.6 % (0.0-11.0); NEUTROPHILS % 65.4 % (39.0-77.0); PLATELET COUNT 266 10^3/UL (140-415); WHITE BLOOD COUNT 10.1 10^3/ul (4.8-10.8)
[2017-04-21] MEDS: TAMSULOSIN (SR) 0.4 MG CAP PO SCH (08:43)
[2017-04-21] MEDS: MULTIVITAMINS THERAPEUTIC TAB GTB SCH (08:44)
[2017-04-21] MEDS: AMIODARONE 200 MG TAB GTB SCH (08:45)
[2017-04-21] MEDS: AMLODIPINE 5 MG TAB GTB SCH ×2 (08:45→20:22)
[2017-04-21 08:59] LABS: CREATININE 3.05 mg/dl (0.61-1.24); POTASSIUM 4.3 mmol/L (3.5-5.1)
--- NOTE | 2017-04-21 12:33 | CONS ---
Date/Time of Note Date/Time of Note DATE: 04/21/17 TIME: 12:33 Assessment/Plan Assessment/Plan Chief Complaint/Hosp Course 72 y/o with 1.BISI on CKD with baseline Cr 2.48 > improving 3.64>3.2>3.0 and BUN 90 <108 FROM 146 ( elevated BUN/Cr ratio consistent with prerenal) with iv fluids likely pre renal due to dehydration.Renal U./S negative for hydronephrosis 2.Hypernatremia >improving 3.HTN uncontrolled > increased to norvasc 5 bid 4 Ecoli UTI on Cefepime 5 Sepsis due to #4 6 Chronic Afib 7 CVA s/p G tube placement 8 Renal cyst 9 Hyperphos due to reduced renal clearence Recs - c/w iv fluids NS at 100 cc/hr - FWF 100 q 4 - increased norvasc to 5 bid today - Repeat labs in am - Renal U/S negative for hydronephrosis - Kayexalate prn - Will not give Phos binder now as Renal function improving - c/w Flores Problems: Consultation Date/Type/Reason Admit Date/Time Apr 17, 2017 at 16:39 Initial Consult Date 04/18/17 Type of Consultation: Nephrology 24 HR Interval Summary Free Text/Dictation Agitated this am Exam/Review of Systems Vital Signs Vitals Vital Signs Date Time Temp Pulse Resp B/P Pulse Ox O2 Delivery O2 Flow Rate FiO2 04/21/17 12:13 98.1 89 19 189/84 97 04/18/17 23:02 Nasal Cannula 2.0 Intake and Output 04/20/17 04/20/17 04/21/17 15:00 23:00 07:00 Intake Total 2240 ml 990 ml Output Total 1700 ml 2000 ml Balance 540 ml -1010 ml Exam Gen:awake, agitated Neck:supple Heart:Regular Lungs:clear Abdomen: G tube Results Result Diagram: 04/21/1772004/21/17 07 Results 24 hrs Laboratory Tests Test 04/20/17 17:14 04/20/17 17:36 04/20/17 17:50 04/20/17 20:53 Bedside Glucose 64 L 146 142 118 Test 04/21/17 01:54 04/21/17 05:46 04/21/17 07:21 04/21/17 12:01 Bedside Glucose 122 117 145 White Blood Count 10.1 Red Blood Count 3.90 L Hemoglobin 10.3 L Hematocrit 32.2 L Mean Corpuscular Volume 82.6 Mean Corpuscular Hemoglobin 26.4 L Mean Corpuscular Hemoglobin Concent 32.0 Red Cell Distribution Width 18.0 H Platelet Count 266 Mean Platelet Volume 12.2 H Neutrophils % 65.4 Lymphocytes % 14.8 L Monocytes % 6.6 Eosinophils % 11.5 H Basophils % 1.1 Nucleated Red Blood Cells % 0.0 Neutrophils # (Manual) 6.6 Lymphocytes # 1.5 Monocytes # 0.7 Eosinophils # 1.2 H Basophils # 0.1 Nucleated Red Blood Cells # 0.0 Sodium Level 137 Potassium Level 4.3 Chloride Level 100 Carbon Dioxide Level 23 Anion Gap 18 H Blood Urea Nitrogen 95 H Creatinine 3.05 H Glucose Level 139 # Calcium Level 8.0 L Medications Medications Current Medications Acetaminophen (Tylenol Tab) 650 mg Q6H PRN GTB PAIN AND OR ELEVATED TEMP Last administered on 04/19/17 08:32; Admin Dose 650 MG; Start 04/17/17 at 18:00 Amiodarone HCl (Cordarone) 100 mg DAILY GTB Last administered on 04/21/17 08: 45; Admin Dose 100 MG; Start 04/18/17 at 09:00 Bisacodyl (Dulcolax Supp) 10 mg Q24H [place] Last administered on 04/20/17 17:21; Admin Dose 10 MG; Start 04/17/17 at 18:00 Diphenhydramine HCl (Benadryl) 25 mg Q6H PRN GTB ITCHING; Start 04/17/17 at 18: 00 Hydralazine HCl (Apresoline) 50 mg Q8 PRN GTB ELEVATED BLOOD PRESSURE Last administered on 04/18/17 13:18; Admin Dose 50 MG; Start 04/17/17 at 18:00 Multivitamins Therapeutic (Theragran) 1 tab DAILY GTB Last administered on 04/21 08:44; Admin Dose 1 TAB; Start 04/18/17 at 09:00 Tamsulosin HCl 0.4 mg 0.4 mg DAILY PO Last administered on 04/21/17 08:43; Admin Dose 0.4 MG; Start 04/18/17 at 09:00 Sodium Chloride (1/2 NS) 1,000 ml @ 100 mls/hr Q10H IV Last administered on 02:33; Admin Dose 100 MLS/HR; Start 04/17/17 at 18:30 Diagnostic Test (Pha) (Accu-Chek) 1 ea 02 XX Last administered on 04/21/17 02: 33; Admin Dose 1 EA; Start 04/18/17 at 02:00 Miscellaneous Information 1 ea NOTE XX ; Start 04/17/17 at 21:00 Glucose (Glutose) 15 gm Q15M PRN PO DECREASED GLUCOSE; Start 04/17/17 at 21:00 Glucose (Glutose) 22.5 gm Q15M PRN PO DECREASED GLUCOSE; Start 04/17/17 at 21: 00 Dextrose (D50w Syringe) 25 ml Q15M PRN IV DECREASED GLUCOSE Last administered on 04/20/17 17:22; Admin Dose 25 ML; Start 04/17/17 at 21:00 Dextrose (D50w Syringe) 50 ml Q15M PRN IV DECREASED GLUCOSE; Start 04/17/17 at 21:00 Glucagon (Glucagen) 1 mg Q15M PRN IM DECREASED GLUCOSE; Start 04/17/17 at 21:00 Glucose (Glutose) 15 gm Q15M PRN BUCCAL DECREASED GLUCOSE; Start 04/17/17 at 21 :00 Ondansetron HCl 4 mg 4 mg Q6H PRN IV NAUSEA AND/OR VOMITING; Start 04/18/17 at 00:30 Cefepime HCl (Maxipime 2gm/50 ml (Pmx)) 50 ml @ 100 mls/hr Q24H IVPB Last administered on 04/20/17 17:21; Admin Dose 100 MLS/HR; Start 04/18/17 at 17:00 Amlodipine Besylate (Norvasc) 5 mg DAILY GTB Last administered on 04/21/17 08: 45; Admin Dose 5 MG; Start 04/20/17 at 09:00 Insulin Aspart (Novolog Insulin Pen) (Adult SC Insulin - Mild Algorithm)... Q6 SC ; Start 04/20/17 at 00:00 Insulin Glargine (Lantus) 14 unit QHS SC Last administered on 04/20/17 21:02; Admin Dose 14 UNIT; Start 04/20/17 at 21:00 PORTIA OLIVER MD Apr 21, 2017 12:33
[2017-04-21] MEDS ORDERED: LORAZEPAM 2 MG INJ IV ONE (13:30)
--- NOTE | 2017-04-21 15:44 | CONS ---
Date/Time of Note Date/Time of Note DATE: 04/21/17 TIME: 15:39 Assessment/Plan Assessment/Plan Chief Complaint/Hosp Course IMP: 1.HTN-uncontrolled-? component of agitation 2.H/O PAF 3.renal failure 4.dysphagia 5. AMS REcc: -Tele -serial ecg's -Continue amio -follow rhythm closeloy -INcrease norvasc to improve BP control Problems: Consultation Date/Type/Reason Admit Date/Time Apr 17, 2017 at 16:39 Initial Consult Date 04/18/17 Type of Consultation: cardiology Reason for Consultation af Exam/Review of Systems Vital Signs Vitals Vital Signs Date Time Temp Pulse Resp B/P Pulse Ox O2 Delivery O2 Flow Rate FiO2 04/21/17 12:13 98.1 89 19 189/84 97 04/18/17 23:02 Nasal Cannula 2.0 Intake and Output 04/20/17 04/20/17 04/21/17 15:00 23:00 07:00 Intake Total 2240 ml 990 ml Output Total 1700 ml 2000 ml Balance 540 ml -1010 ml Exam Review of Systems: CONSTITUTIONAL: No fevers, chills. PULMONARY: No sob CARDIOVASCULAR: No chest pain/palpitations GASTROINTESTINAL: No nausea/vomiting. GENITOURINARY: No hematuria/dysuria. MUSCULOSKELETAL: No myagias/arthalgias. PSYCHIATRIC: The patient denies depression. NEUROLOGIC: No weakness Constitutional: alert, oriented Psych: no complaints Head: normocephalic ENMT: mucosa pink and moist Neck: jvd (9 cm water), supple Respiratory: diminished breath sounds (at bases/B) Cardiovascular: regular rate and rhythm Gastrointestinal: non-tender, soft Musculoskeletal: muscle tone (normal) Extremities: edema (none) Neurological: confused, lethargic Results Result Diagram: 04/21/17 0721 04/21/17 0721 Results 24 hrs Laboratory Tests Test 04/20/17 17:14 04/20/17 17:36 04/20/17 17:50 04/20/17 20:53 Bedside Glucose 64 L 146 142 118 Test 04/21/17 01:54 04/21/17 05:46 04/21/17 07:21 04/21/17 12:01 Bedside Glucose 122 117 145 White Blood Count 10.1 Red Blood Count 3.90 L Hemoglobin 10.3 L Hematocrit 32.2 L Mean Corpuscular Volume 82.6 Mean Corpuscular Hemoglobin 26.4 L Mean Corpuscular Hemoglobin Concent 32.0 Red Cell Distribution Width 18.0 H Platelet Count 266 Mean Platelet Volume 12.2 H Neutrophils % 65.4 Lymphocytes % 14.8 L Monocytes % 6.6 Eosinophils % 11.5 H Basophils % 1.1 Nucleated Red Blood Cells % 0.0 Neutrophils # (Manual) 6.6 Lymphocytes # 1.5 Monocytes # 0.7 Eosinophils # 1.2 H Basophils # 0.1 Nucleated Red Blood Cells # 0.0 Sodium Level 137 Potassium Level 4.3 Chloride Level 100 Carbon Dioxide Level 23 Anion Gap 18 H Blood Urea Nitrogen 95 H Creatinine 3.05 H Glucose Level 139 # Calcium Level 8.0 L Medications Medications Current Medications Acetaminophen (Tylenol Tab) 650 mg Q6H PRN GTB PAIN AND OR ELEVATED TEMP Last administered on 04/19/17 08:32; Admin Dose 650 MG; Start 04/17/17 at 18:00 Amiodarone HCl (Cordarone) 100 mg DAILY GTB Last administered on 04/21/17 08: 45; Admin Dose 100 MG; Start 04/18/17 at 09:00 Bisacodyl (Dulcolax Supp) 10 mg Q24H DC Last administered on 04/20/17 17:21; Admin Dose 10 MG; Start 04/17/17 at 18:00 Diphenhydramine HCl (Benadryl) 25 mg Q6H PRN GTB ITCHING; Start 04/17/17 at 18: 00 Hydralazine HCl (Apresoline) 50 mg Q8 PRN GTB ELEVATED BLOOD PRESSURE Last administered on 04/18/17 13:18; Admin Dose 50 MG; Start 04/17/17 at 18:00 Multivitamins Therapeutic (Theragran) 1 tab DAILY GTB Last administered on 04/21 08:44; Admin Dose 1 TAB; Start 04/18/17 at 09:00 Tamsulosin HCl 0.4 mg 0.4 mg DAILY PO Last administered on 04/21/17 08:43; Admin Dose 0.4 MG; Start 04/18/17 at 09:00 Sodium Chloride (1/2 NS) 1,000 ml @ 100 mls/hr Q10H IV Last administered on 12:21; Admin Dose 100 MLS/HR; Start 04/17/17 at 18:30 Diagnostic Test (Pha) (Accu-Chek) 1 ea 02 XX Last administered on 04/21/17 02: 33; Admin Dose 1 EA; Start 04/18/17 at 02:00 Miscellaneous Information 1 ea NOTE XX ; Start 04/17/17 at 21:00 Glucose (Glutose) 15 gm Q15M PRN PO DECREASED GLUCOSE; Start 04/17/17 at 21:00 Glucose (Glutose) 22.5 gm Q15M PRN PO DECREASED GLUCOSE; Start 04/17/17 at 21: 00 Dextrose (D50w Syringe) 25 ml Q15M PRN IV DECREASED GLUCOSE Last administered on 04/20/17 17:22; Admin Dose 25 ML; Start 04/17/17 at 21:00 Dextrose (D50w Syringe) 50 ml Q15M PRN IV DECREASED GLUCOSE; Start 04/17/17 at 21:00 Glucagon (Glucagen) 1 mg Q15M PRN IM DECREASED GLUCOSE; Start 04/17/17 at 21:00 Glucose (Glutose) 15 gm Q15M PRN BUCCAL DECREASED GLUCOSE; Start 04/17/17 at 21 :00 Ondansetron HCl 4 mg 4 mg Q6H PRN IV NAUSEA AND/OR VOMITING; Start 04/18/17 at 00:30 Cefepime HCl (Maxipime 2gm/50 ml (Pmx)) 50 ml @ 100 mls/hr Q24H IVPB Last administered on 04/20/17 17:21; Admin Dose 100 MLS/HR; Start 04/18/17 at 17:00 Amlodipine Besylate (Norvasc) 5 mg DAILY GTB Last administered on 04/21/17 08: 45; Admin Dose 5 MG; Start 04/20/17 at 09:00 Insulin Aspart (Novolog Insulin Pen) (Adult SC Insulin - Mild Algorithm)... Q6 SC Last administered on 04/21/17 12:45; Admin Dose 1 UNIT; Start 04/20/17 at 00:00 Insulin Glargine (Lantus) 14 unit QHS SC Last administered on 04/20/17 21:02; Admin Dose 14 UNIT; Start 04/20/17 at 21:00 LESLI SHEA Apr 21, 2017 15:44
[2017-04-21] MEDS: BISACODYL 10 MG SUPP PR SCH (17:43)
[2017-04-21] MEDS: CEFEPIME 2GM/50 ML (PMX) 50 ML IVPB SCH (17:43)
--- NOTE | 2017-04-21 18:02 | PN ---
Date/Time of Note Date/Time of Note DATE: 04/21/17 TIME: 18:00 Assessment/Plan VTE Prophylaxis VTE Prophylaxis Intervention: SCD's Lines/Catheters [facility]ter Type ([facility] Peripheral IV Urinary Cath still in place: Yes Reason Cath still needed: urinary retention Assessment/Plan Chief Complaint/Hosp Course Patient had periods of agitation when he removed IV, no fever per RN, patient is status post Ativan currently calm, decreased leukocytosis. Assessment/Plan - E. coli urinary tract infection, continue cefepime. Dr. Garcia is following infection disease consultation. - Acute kidney injury on chronic kidney disease. Dr. Cheema is following in nephrology consultation. - History of cerebrovascular accident - Diabetes mellitus. Continue Lantus and NovoLog. - Diastolic congestive heart failure. Continue to monitor intake and output. - Hypertension. Continue Norvasc. - Hyperlipidemia. Continue statin. - Urinary retention with Flores catheter. Further recommendations based on clinical course. Plan of care discussed with Dr. Patel Problems: Exam/Review of Systems Vital Signs Vitals Vital Signs Date Time Temp Pulse Resp B/P Pulse Ox O2 Delivery O2 Flow Rate FiO2 04/21/17 16:34 98.1 82 17 145/65 93 04/18/17 23:02 Nasal Cannula 2.0 Intake and Output 04/20/17 04/20/17 04/21/17 15:00 23:00 07:00 Intake Total 2240 ml 990 ml Output Total 1700 ml 2000 ml Balance 540 ml -1010 ml Exam Constitutional: alert Head: normocephalic Cardiovascular: nl pulses Gastrointestinal: non-tender, other (G-tube), soft Genitourinary - Male: other (Flores) Musculoskeletal: muscle weakness Extremities: normal pulses Results Result Diagram: 04/21/17 0704/21/17720 Results 24 hrs Laboratory Tests Test 04/20/17 20:53 04/21/17 01:54 04/21/17 05:46 04/21/17 07:21 Bedside Glucose 118 122 117 White Blood Count 10.1 Red Blood Count 3.90 L Hemoglobin 10.3 L Hematocrit 32.2 L Mean Corpuscular Volume 82.6 Mean Corpuscular Hemoglobin 26.4 L Mean Corpuscular Hemoglobin Concent 32.0 Red Cell Distribution Width 18.0 H Platelet Count 266 Mean Platelet Volume 12.2 H Neutrophils % 65.4 Lymphocytes % 14.8 L Monocytes % 6.6 Eosinophils % 11.5 H Basophils % 1.1 Nucleated Red Blood Cells % 0.0 Neutrophils # (Manual) 6.6 Lymphocytes # 1.5 Monocytes # 0.7 Eosinophils # 1.2 H Basophils # 0.1 Nucleated Red Blood Cells # 0.0 Sodium Level 137 Potassium Level 4.3 Chloride Level 100 Carbon Dioxide Level 23 Anion Gap 18 H Blood Urea Nitrogen 95 H Creatinine 3.05 H Glucose Level 139 # Calcium Level 8.0 L Test 04/21/17 12:01 Bedside Glucose 145 Medications Medications Current Medications Acetaminophen (Tylenol Tab) 650 mg Q6H PRN GTB PAIN AND OR ELEVATED TEMP Last administered on 04/19/17 08:32; Admin Dose 650 MG; Start 04/17/17 at 18:00 Amiodarone HCl (Cordarone) 100 mg DAILY GTB Last administered on 04/21/17 08: 45; Admin Dose 100 MG; Start 04/18/17 at 09:00 Bisacodyl (Dulcolax Supp) 10 mg Q24H [place] Last administered on 04/21/17 17:43; Admin Dose 10 MG; Start 04/17/17 at 18:00 Diphenhydramine HCl (Benadryl) 25 mg Q6H PRN GTB ITCHING; Start 04/17/17 at 18: 00 Hydralazine HCl (Apresoline) 50 mg Q8 PRN GTB ELEVATED BLOOD PRESSURE Last administered on 04/18/17 13:18; Admin Dose 50 MG; Start 04/17/17 at 18:00 Multivitamins Therapeutic (Theragran) 1 tab DAILY GTB Last administered on 04/21 08:44; Admin Dose 1 TAB; Start 04/18/17 at 09:00 Tamsulosin HCl 0.4 mg 0.4 mg DAILY PO Last administered on 04/21/17 08:43; Admin Dose 0.4 MG; Start 04/18/17 at 09:00 Sodium Chloride (1/2 NS) 1,000 ml @ 100 mls/hr Q10H IV Last administered on 12:21; Admin Dose 100 MLS/HR; Start 04/17/17 at 18:30 Diagnostic Test (Pha) (Accu-Chek) 1 ea 02 XX Last administered on 04/21/17 02: 33; Admin Dose 1 EA; Start 04/18/17 at 02:00 Miscellaneous Information 1 ea NOTE XX ; Start 04/17/17 at 21:00 Glucose (Glutose) 15 gm Q15M PRN PO DECREASED GLUCOSE; Start 04/17/17 at 21:00 Glucose (Glutose) 22.5 gm Q15M PRN PO DECREASED GLUCOSE; Start 04/17/17 at 21: 00 Dextrose (D50w Syringe) 25 ml Q15M PRN IV DECREASED GLUCOSE Last administered on 04/20/17 17:22; Admin Dose 25 ML; Start 04/17/17 at 21:00 Dextrose (D50w Syringe) 50 ml Q15M PRN IV DECREASED GLUCOSE; Start 04/17/17 at 21:00 Glucagon (Glucagen) 1 mg Q15M PRN IM DECREASED GLUCOSE; Start 04/17/17 at 21:00 Glucose (Glutose) 15 gm Q15M PRN BUCCAL DECREASED GLUCOSE; Start 04/17/17 at 21 :00 Ondansetron HCl 4 mg 4 mg Q6H PRN IV NAUSEA AND/OR VOMITING; Start 04/18/17 at 00:30 Cefepime HCl (Maxipime 2gm/50 ml (Pmx)) 50 ml @ 100 mls/hr Q24H IVPB Last administered on 04/21/17 17:43; Admin Dose 100 MLS/HR; Start 04/18/17 at 17:00 Insulin Aspart (Novolog Insulin Pen) (Adult SC Insulin - Mild Algorithm)... Q6 SC Last administered on 04/21/17 12:45; Admin Dose 1 UNIT; Start 04/20/17 at 00:00 Insulin Glargine (Lantus) 14 unit QHS SC Last administered on 04/20/17 21:02; Admin Dose 14 UNIT; Start 04/20/17 at 21:00 Amlodipine Besylate (Norvasc) 5 mg BID GTB ; Start 04/21/17 at 21:00 GEOVANY IBARRA Apr 21, 2017 18:02
[2017-04-21] MEDS: INSULIN GLARGINE [LANtus] 3 ML PEN SC SCH (20:26)
[2017-04-22] VITALS (16 sets, daily range): BP systolic 142–176; BP diastolic 69–81; PULSE 80–100; RESP 16–19
[2017-04-22] MEDS: SOD CHLORIDE 0.45% 1,000 ML IV SCH ×3 (00:21→17:44)
[2017-04-22] MEDS: ACCU-CHEK XX SCH (02:00)
--- NOTE | 2017-04-22 03:06 | PN ---
DATE: 04/21/2017 SUBJECTIVE DATA: No acute changes overnight. The patient is restless, looks comfortable. No fevers. LABORATORY AND DIAGNOSTIC DATA: WBC 10.1, H and H 10.3 and 32.2, platelets 266, neutrophils 65.4, BUN 95, creatinine 3.05. MICROBIOLOGY: Urine culture grew E coli, antimicrobials. The patient remains on cefepime, day #4. INDWELLING: PEG Flores. PHYSICAL EXAMINATION: VITALS: Temperature 98.1, pulse 89, respirations 20, blood pressure 189/84, saturation 97 percent on room air. GENERAL: Fragile, chronically ill-appearing elderly man who is in no distress. HEENT: Head is atraumatic and normocephalic. Sclerae are anicteric. Buccal mucosa is dry. NECK: Supple. LUNGS: Chest rise symmetrical. Breath sounds are diminished at the bases. HEART: S1, S2. ABDOMEN: Soft. Bowel sounds are present. EXTREMITIES: Without cyanosis. ASSESSMENT: 1. Recurrent urinary tract infection with systemic inflammatory response syndrome. 2. Acute on chronic kidney failure. 3. Dysphagia. 4. Hypertension. 5. Atrial fibrillation. 6. Encephalopathy. PLAN: The patient remains stable. WBC is tracing down. He is on appropriate antibiotics. Nephrology and cardiology on the case. Continue present care. Dictated By: Maria Brothers NP /[email or web address] /Document#: [id number]
[2017-04-22] MEDS: Insulin NOVOLOG SS MILD Algorithm (NPO/TPN/ENTERAL FEEDS) SC SCH ×4 (06:00→18:00)
[2017-04-22 07:45] LABS: BASOPHIL # 0.1 10^3/ul (0.0-0.1); BASOPHILS % 0.6 % (0.0-2.0); EOSINOPHILS # 0.6 10^3/ul (0.0-0.5); EOSINOPHILS % 3.1 % (0.0-7.0); HEMATOCRIT 34.6 % (42.0-52.0); HEMOGLOBIN 11.1 g/dl (14.0-18.0); LYMPHOCYTES # 1.7 10^3/ul (0.8-2.9); LYMPHOCYTES % 9.2 % (15.0-51.0); MEAN CORPUSCULAR HEMOGLOBIN 26.3 pg (29.0-33.0); MEAN CORPUSCULAR HGB CONC 32.1 g/dl (32.0-37.0); MEAN PLATELET VOLUME 12.7 fl (7.4-10.4); MONOCYTE # 0.7 10^3/ul (0.3-0.9); MONOCYTES % 3.7 % (0.0-11.0); NEUTROPHILS % 82.9 % (39.0-77.0); PLATELET COUNT 251 10^3/UL (140-415); RED BLOOD COUNT 4.22 10^6/ul (4.70-6.10); RED CELL DISTRIBUTION WIDTH 18.7 % (11.5-14.5); WHITE BLOOD COUNT 18.2 10^3/ul (4.8-10.8)
[2017-04-22 08:10] LABS: CALCIUM 8.6 mg/dl (8.4-10.2); CREATININE 3.13 mg/dl (0.61-1.24); POTASSIUM 4.3 mmol/L (3.5-5.1)
[2017-04-22] MEDS: MULTIVITAMINS THERAPEUTIC TAB GTB SCH (08:47)
[2017-04-22] MEDS: AMLODIPINE 5 MG TAB GTB SCH ×2 (08:47→21:50)
[2017-04-22] MEDS: TAMSULOSIN (SR) 0.4 MG CAP PO SCH (08:47)
[2017-04-22] MEDS: AMIODARONE 200 MG TAB GTB SCH (08:48)
--- NOTE | 2017-04-22 10:17 | PN ---
Date/Time of Note Date/Time of Note DATE: 04/22/17 TIME: 10:08 Assessment/Plan VTE Prophylaxis VTE Prophylaxis Intervention: other Lines/Catheters IV Catheter Type (from Nrs): Peripheral IV Urinary Cath still in place: Yes Reason Cath still needed: urinary retention Assessment/Plan Assessment/Plan - Leukocytosis sec to UTI- maira Albicans - -Acute cystitis without hematuria - sp Vanco/Zosyn - fu urine c/s - ID consult- Dr Garcia notified - am labs -Acute weakness sec to Dizziness - cardiology consult - 2D Echo am- LVEF 65% - Electrolyte imbalance- per nephrology - Hyperkalemia- RESOLVED - Hypernatremia - Hyperphosphatemia - Acute renal failure on Chronic Kidney disease - per nephro consult- dr Cheema - Dysphagia - sp PEG placement - aspiration precautions - cont tube feeding - History of paroxysmal atrial fibrillation.- no acute issues. SR at present - Diabetes mellitus. - Glycemic control - Dietary consult - special education paraeducator consult - Chronic kidney disease. - History of cerebrovascular accident- no acute issues reported - Hx AMS Plan of care dw Dr Patel/staff Subjective 24 Hr Interval Summary Free Text/Dictation afebrile, confused., dw staff- bp elevated, Respiratory: no complaints Cardiovascular: no complaints Gastrointestinal: no complaints Exam/Review of Systems Vital Signs Vitals Vital Signs Date Time Temp Pulse Resp B/P Pulse Ox O2 Delivery O2 Flow Rate FiO2 04/22/17 08:17 95 04/22/17 08:03 98.3 19 148/81 98 04/18/17 23:02 Nasal Cannula 2.0 Intake and Output 04/21/17 04/21/17 04/22/17 15:00 23:00 07:00 Intake Total 800 ml 400 ml Output Total 1500 ml Balance -700 ml 400 ml Exam Constitutional: alert Respiratory: clear to auscultation, normal air movement Gastrointestinal: non-tender, soft Extremities: normal pulses Results Result Diagram: 04/22/17 0716 04/22/17 0716 Results 24 hrs Laboratory Tests Test 04/21/17 12:01 04/21/17 19:00 04/21/17 20:21 04/22/17 00:18 Bedside Glucose 145 146 131 137 Test 04/22/17 06:32 04/22/17 07:16 Bedside Glucose 130 White Blood Count 18.2 #H Red Blood Count 4.22 L Hemoglobin 11.1 L Hematocrit 34.6 L Mean Corpuscular Volume 82.0 Mean Corpuscular Hemoglobin 26.3 L Mean Corpuscular Hemoglobin Concent 32.1 Red Cell Distribution Width 18.7 H Platelet Count 251 Mean Platelet Volume 12.7 H Neutrophils % 82.9 H Lymphocytes % 9.2 L Monocytes % 3.7 Eosinophils % 3.1 Basophils % 0.6 Nucleated Red Blood Cells % 0.0 Neutrophils # (Manual) 15.1 H Lymphocytes # 1.7 Monocytes # 0.7 Eosinophils # 0.6 H Basophils # 0.1 Nucleated Red Blood Cells # 0.0 Sodium Level 139 Potassium Level 4.3 Chloride Level 101 Carbon Dioxide Level 23 Anion Gap 19 H Blood Urea Nitrogen 91 H Creatinine 3.13 H Glucose Level 138 Calcium Level 8.6 Medications Medications Current Medications Acetaminophen (Tylenol Tab) 650 mg Q6H PRN GTB PAIN AND OR ELEVATED TEMP Last administered on 04/19/17 08:32; Admin Dose 650 MG; Start 04/17/17 at 18:00 Amiodarone HCl (Cordarone) 100 mg DAILY GTB Last administered on 04/22/17 08: 48; Admin Dose 100 MG; Start 04/18/17 at 09:00 Bisacodyl (Dulcolax Supp) 10 mg Q24H DC Last administered on 04/21/17 17:43; Admin Dose 10 MG; Start 04/17/17 at 18:00 Diphenhydramine HCl (Benadryl) 25 mg Q6H PRN GTB ITCHING; Start 04/17/17 at 18: 00 Hydralazine HCl (Apresoline) 50 mg Q8 PRN GTB ELEVATED BLOOD PRESSURE Last administered on 04/18/17 13:18; Admin Dose 50 MG; Start 04/17/17 at 18:00 Multivitamins Therapeutic (Theragran) 1 tab DAILY GTB Last administered on 04/22 08:47; Admin Dose 1 TAB; Start 04/18/17 at 09:00 Tamsulosin HCl 0.4 mg 0.4 mg DAILY PO Last administered on 04/22/17 08:47; Admin Dose 0.4 MG; Start 04/18/17 at 09:00 Sodium Chloride (1/2 NS) 1,000 ml @ 100 mls/hr Q10H IV Last administered on 08:50; Admin Dose 100 MLS/HR; Start 04/17/17 at 18:30 Diagnostic Test (Pha) (Accu-Chek) 1 ea 02 XX Last administered on 04/21/17 02: 33; Admin Dose 1 EA; Start 04/18/17 at 02:00 Miscellaneous Information 1 ea NOTE XX ; Start 04/17/17 at 21:00 Glucose (Glutose) 15 gm Q15M PRN PO DECREASED GLUCOSE; Start 04/17/17 at 21:00 Glucose (Glutose) 22.5 gm Q15M PRN PO DECREASED GLUCOSE; Start 04/17/17 at 21: 00 Dextrose (D50w Syringe) 25 ml Q15M PRN IV DECREASED GLUCOSE Last administered on 04/20/17 17:22; Admin Dose 25 ML; Start 04/17/17 at 21:00 Dextrose (D50w Syringe) 50 ml Q15M PRN IV DECREASED GLUCOSE; Start 04/17/17 at 21:00 Glucagon (Glucagen) 1 mg Q15M PRN IM DECREASED GLUCOSE; Start 04/17/17 at 21:00 Glucose (Glutose) 15 gm Q15M PRN BUCCAL DECREASED GLUCOSE; Start 04/17/17 at 21 :00 Ondansetron HCl 4 mg 4 mg Q6H PRN IV NAUSEA AND/OR VOMITING; Start 04/18/17 at 00:30 Cefepime HCl (Maxipime 2gm/50 ml (Pmx)) 50 ml @ 100 mls/hr Q24H IVPB Last administered on 04/21/17 17:43; Admin Dose 100 MLS/HR; Start 04/18/17 at 17:00 Insulin Aspart (Novolog Insulin Pen) (Adult SC Insulin - Mild Algorithm)... Q6 SC Last administered on 04/21/17 19:05; Admin Dose 1 UNIT; Start 04/20/17 at 00:00 Insulin Glargine (Lantus) 14 unit QHS SC Last administered on 04/21/17 20:26; Admin Dose 14 UNIT; Start 04/20/17 at 21:00 Amlodipine Besylate (Norvasc) 5 mg BID GTB Last administered on 04/22/17 08:47 ; Admin Dose 5 MG; Start 04/21/17 at 21:00 MARCY WEINER Apr 22, 2017 10:17
--- NOTE | 2017-04-22 10:26 | CONS ---
Date/Time of Note Date/Time of Note DATE: 04/22/17 TIME: 10:26 Assessment/Plan Assessment/Plan Chief Complaint/Hosp Course Gen:Awake, agitated Neck:supple CVS:Irregular irregular Abdomen:soft, G Tube Ext : no edema 72 y/o with 1.BISI on CKD with baseline Cr 2.48 > improving 3.64>3.2>3.0>3.13 and BUN 90 < 108 FROM 146 ( elevated BUN/Cr ratio consistent with prerenal) with iv fluids likely pre renal due to dehydration.Renal U./S negative for hydronephrosis 2.Hypernatremia >improving 3.HTN uncontrolled > increased to norvasc 5 bid 4 Ecoli UTI on Cefepime 5 Sepsis due to #4 6 Chronic Afib 7 CVA s/p G tube placement 8 Renal cyst 9 Hyperphos due to reduced renal clearence 10 Leukocytosis> work up per ID Recs - c/w iv fluids NS at 100 cc/hr - FWF 100 q 4 - cw Norvasc - Repeat labs in am - Renal U/S negative for hydronephrosis - Kayexalate prn - Will not give Phos binder now as Renal function improving - c/w Flores Problems: Consultation Date/Type/Reason Admit Date/Time Apr 17, 2017 at 16:39 Initial Consult Date 04/18/17 Type of Consultation: Nephrology 24 HR Interval Summary Free Text/Dictation Periods of agitation Leukocytosis Exam/Review of Systems Vital Signs Vitals Vital Signs Date Time Temp Pulse Resp B/P Pulse Ox O2 Delivery O2 Flow Rate FiO2 04/22/17 08:17 95 04/22/17 08:03 98.3 19 148/81 98 04/18/17 23:02 Nasal Cannula 2.0 Intake and Output 04/21/17 04/21/17 04/22/17 15:00 23:00 07:00 Intake Total 800 ml 400 ml Output Total 1500 ml Balance -700 ml 400 ml Results Result Diagram: 04/22/17 0716 04/22/17 0716 Results 24 hrs Laboratory Tests Test 04/21/17 12:01 04/21/17 19:00 04/21/17 20:21 04/22/17 00:18 Bedside Glucose 145 146 131 137 Test 04/22/17 06:32 04/22/17 07:16 Bedside Glucose 130 White Blood Count 18.2 #H Red Blood Count 4.22 L Hemoglobin 11.1 L Hematocrit 34.6 L Mean Corpuscular Volume 82.0 Mean Corpuscular Hemoglobin 26.3 L Mean Corpuscular Hemoglobin Concent 32.1 Red Cell Distribution Width 18.7 H Platelet Count 251 Mean Platelet Volume 12.7 H Neutrophils % 82.9 H Lymphocytes % 9.2 L Monocytes % 3.7 Eosinophils % 3.1 Basophils % 0.6 Nucleated Red Blood Cells % 0.0 Neutrophils # (Manual) 15.1 H Lymphocytes # 1.7 Monocytes # 0.7 Eosinophils # 0.6 H Basophils # 0.1 Nucleated Red Blood Cells # 0.0 Sodium Level 139 Potassium Level 4.3 Chloride Level 101 Carbon Dioxide Level 23 Anion Gap 19 H Blood Urea Nitrogen 91 H Creatinine 3.13 H Glucose Level 138 Calcium Level 8.6 Medications Medications Current Medications Acetaminophen (Tylenol Tab) 650 mg Q6H PRN GTB PAIN AND OR ELEVATED TEMP Last administered on 04/19/17 08:32; Admin Dose 650 MG; Start 04/17/17 at 18:00 Amiodarone HCl (Cordarone) 100 mg DAILY GTB Last administered on 04/22/17 08: 48; Admin Dose 100 MG; Start 04/18/17 at 09:00 Bisacodyl (Dulcolax Supp) 10 mg Q24H [place] Last administered on 04/21/17 17:43; Admin Dose 10 MG; Start 04/17/17 at 18:00 Diphenhydramine HCl (Benadryl) 25 mg Q6H PRN GTB ITCHING; Start 04/17/17 at 18: 00 Hydralazine HCl (Apresoline) 50 mg Q8 PRN GTB ELEVATED BLOOD PRESSURE Last administered on 04/18/17 13:18; Admin Dose 50 MG; Start 04/17/17 at 18:00 Multivitamins Therapeutic (Theragran) 1 tab DAILY GTB Last administered on 04/22 08:47; Admin Dose 1 TAB; Start 04/18/17 at 09:00 Tamsulosin HCl 0.4 mg 0.4 mg DAILY PO Last administered on 04/22/17 08:47; Admin Dose 0.4 MG; Start 04/18/17 at 09:00 Sodium Chloride (1/2 NS) 1,000 ml @ 100 mls/hr Q10H IV Last administered on 08:50; Admin Dose 100 MLS/HR; Start 04/17/17 at 18:30 Diagnostic Test (Pha) (Accu-Chek) 1 ea 02 XX Last administered on 04/21/17 02: 33; Admin Dose 1 EA; Start 04/18/17 at 02:00 Miscellaneous Information 1 ea NOTE XX ; Start 04/17/17 at 21:00 Glucose (Glutose) 15 gm Q15M PRN PO DECREASED GLUCOSE; Start 04/17/17 at 21:00 Glucose (Glutose) 22.5 gm Q15M PRN PO DECREASED GLUCOSE; Start 04/17/17 at 21: 00 Dextrose (D50w Syringe) 25 ml Q15M PRN IV DECREASED GLUCOSE Last administered on 04/20/17 17:22; Admin Dose 25 ML; Start 04/17/17 at 21:00 Dextrose (D50w Syringe) 50 ml Q15M PRN IV DECREASED GLUCOSE; Start 04/17/17 at 21:00 Glucagon (Glucagen) 1 mg Q15M PRN IM DECREASED GLUCOSE; Start 04/17/17 at 21:00 Glucose (Glutose) 15 gm Q15M PRN BUCCAL DECREASED GLUCOSE; Start 04/17/17 at 21 :00 Ondansetron HCl 4 mg 4 mg Q6H PRN IV NAUSEA AND/OR VOMITING; Start 04/18/17 at 00:30 Cefepime HCl (Maxipime 2gm/50 ml (Pmx)) 50 ml @ 100 mls/hr Q24H IVPB Last administered on 04/21/17 17:43; Admin Dose 100 MLS/HR; Start 04/18/17 at 17:00 Insulin Aspart (Novolog Insulin Pen) (Adult SC Insulin - Mild Algorithm)... Q6 SC Last administered on 04/21/17 19:05; Admin Dose 1 UNIT; Start 04/20/17 at 00:00 Insulin Glargine (Lantus) 14 unit QHS SC Last administered on 04/21/17 20:26; Admin Dose 14 UNIT; Start 04/20/17 at 21:00 Amlodipine Besylate (Norvasc) 5 mg BID GTB Last administered on 04/22/17 08:47 ; Admin Dose 5 MG; Start 04/21/17 at 21:00 PORTIA OLIVER MD Apr 22, 2017 10:26
--- NOTE | 2017-04-22 15:34 | PN ---
DATE: 04/22/2017 SUBJECTIVE DATA: Patient is awake, lying comfortably in bed. He is afebrile. LABORATORY AND DIAGNOSTIC DATA: WBC today 18.2, H and H 11.1 and 34.6, platelets 251, neutrophils 82.9. BUN 91, creatinine 3.13. ANTIMICROBIALS: Cefepime, day number 5. INDWELLINGS: Flores, PEG. PHYSICAL EXAMINATION: GENERAL: This is a chronically ill-appearing, elderly man, who is awake, confused, and in no distress. HEENT: Head atraumatic, normocephalic. Sclerae anicteric. Buccal mucosa pink. NECK: Supple. CHEST: Chest rise symmetrical. Breath sounds diminished at the bases. HEART: S1, S2. ABDOMEN: Soft, bowel sounds present. EXTREMITIES: No cyanosis. ASSESSMENT: 1. Leukocytosis. Rule out C. difficile colitis. 2. Urinary tract infection. 3. Dysphagia. 4. Dementia. 5. Acute renal failure on chronic kidney disease. 6. Atrial fibrillation. PLAN: We are going to order chest x-ray. Repeat cultures sent. Stool for C difficile. Continue present care. Antibiotics. Anti-aspiration measures. Follow nephrology recommendations. Dictated By: Maria Brothers NP /jackelin/greta /Document#: [id number]
--- NOTE | 2017-04-22 16:44 | RADRPT ---
PROCEDURE: XR Chest. CLINICAL INDICATION: Cough TECHNIQUE: Single frontal view of the chest was obtained. COMPARISON: 11/05/2016 FINDINGS: The cardiomediastinal silhouette is normal size. There is moderate aortic calcification. Pulmonary v asculature is within normal limits. The lungs are clear. No signs of pleural fluid or pneumothorax are seen. The osseous structures and soft tissues are unre markable. IMPRESSION: 1. Moderate aortic calcification. 2. No visualized consolidation or edema. RPTAT: DD .Ariel Harp MD, MD Date Time Electronically viewed and signed by .Ariel Harp MD, MD on 04/22/2017 16:43 .T/
[2017-04-22] MEDS: BISACODYL 10 MG SUPP PR SCH (17:34)
[2017-04-22] MEDS: CEFEPIME 2GM/50 ML (PMX) 50 ML IVPB SCH (17:34)
--- NOTE | 2017-04-22 21:32 | CONS ---
Date/Time of Note Date/Time of Note DATE: 04/22/17 TIME: 21:30 Assessment/Plan Assessment/Plan Chief Complaint/Hosp Course IMP: 1.HTN-uncontrolled-? component of agitation 2.H/O PAF 3.renal failure 4.dysphagia 5. AMS REcc: -Tele -serial ecg's -Continue amio -follow rhythm closeloy -Continue norvasc -add BB/hydralazine to improve BP control -[id number] volume status closelyt Problems: Consultation Date/Type/Reason Admit Date/Time Apr 17, 2017 at 16:39 Initial Consult Date 04/18/17 Type of Consultation: cardiology Reason for Consultation AF/HTN Referring Provider: PORTIA OLIVER MD Exam/Review of Systems Vital Signs Vitals Vital Signs Date Time Temp Pulse Resp B/P Pulse Ox O2 Delivery O2 Flow Rate FiO2 04/22/17 20:31 98.3 95 16 172/81 98 04/18/17 23:02 Nasal Cannula 2.0 Intake and Output 04/21/17 04/21/17 04/22/17 15:00 23:00 07:00 Intake Total 800 ml 400 ml Output Total 1500 ml Balance -700 ml 400 ml Exam Review of Systems: CONSTITUTIONAL: No fevers, chills. PULMONARY: No sob CARDIOVASCULAR: No chest pain/palpitations GASTROINTESTINAL: No nausea/vomiting. GENITOURINARY: No hematuria/dysuria. MUSCULOSKELETAL: No myagias/arthalgias. PSYCHIATRIC: The patient denies depression. NEUROLOGIC: No weakness Constitutional: alert, oriented Psych: no complaints Head: normocephalic ENMT: mucosa pink and moist Neck: jvd (8-9 ,cm water), supple Respiratory: diminished breath sounds (at bases/B) Cardiovascular: regular rate and rhythm Gastrointestinal: non-tender, soft Musculoskeletal: muscle tone (normal) Extremities: edema (trace/B) Neurological: other (npo focal deficits) Results Result Diagram: 04/22/17 0716 04/22/1716 Results 24 hrs Laboratory Tests Test 04/22/17 00:18 04/22/17 06:32 04/22/17 07:16 04/22/17 12:54 Bedside Glucose 137 130 140 White Blood Count 18.2 #H Red Blood Count 4.22 L Hemoglobin 11.1 L Hematocrit 34.6 L Mean Corpuscular Volume 82.0 Mean Corpuscular Hemoglobin 26.3 L Mean Corpuscular Hemoglobin Concent 32.1 Red Cell Distribution Width 18.7 H Platelet Count 251 Mean Platelet Volume 12.7 H Neutrophils % 82.9 H Lymphocytes % 9.2 L Monocytes % 3.7 Eosinophils % 3.1 Basophils % 0.6 Nucleated Red Blood Cells % 0.0 Neutrophils # (Manual) 15.1 H Lymphocytes # 1.7 Monocytes # 0.7 Eosinophils # 0.6 H Basophils # 0.1 Nucleated Red Blood Cells # 0.0 Sodium Level 139 Potassium Level 4.3 Chloride Level 101 Carbon Dioxide Level 23 Anion Gap 19 H Blood Urea Nitrogen 91 H Creatinine 3.13 H Glucose Level 138 Calcium Level 8.6 Test 04/22/17 17:36 Bedside Glucose 108 Medications Medications Current Medications Acetaminophen (Tylenol Tab) 650 mg Q6H PRN GTB PAIN AND OR ELEVATED TEMP Last administered on 04/19/17 08:32; Admin Dose 650 MG; Start 04/17/17 at 18:00 Amiodarone HCl (Cordarone) 100 mg DAILY GTB Last administered on 04/22/17 08: 48; Admin Dose 100 MG; Start 04/18/17 at 09:00 Bisacodyl (Dulcolax Supp) 10 mg Q24H [place] Last administered on 04/21/17 17:43; Admin Dose 10 MG; Start 04/17/17 at 18:00 Diphenhydramine HCl (Benadryl) 25 mg Q6H PRN GTB ITCHING; Start 04/17/17 at 18: 00 Hydralazine HCl (Apresoline) 50 mg Q8 PRN GTB ELEVATED BLOOD PRESSURE Last administered on 04/18/17 13:18; Admin Dose 50 MG; Start 04/17/17 at 18:00 Multivitamins Therapeutic (Theragran) 1 tab DAILY GTB Last administered on 04/22 08:47; Admin Dose 1 TAB; Start 04/18/17 at 09:00 Tamsulosin HCl 0.4 mg 0.4 mg DAILY PO Last administered on 04/22/17 08:47; Admin Dose 0.4 MG; Start 04/18/17 at 09:00 Sodium Chloride (1/2 NS) 1,000 ml @ 100 mls/hr Q10H IV Last administered on 17:44; Admin Dose 100 MLS/HR; Start 04/17/17 at 18:30 Diagnostic Test (Pha) (Accu-Chek) 1 ea 02 XX Last administered on 04/21/17 02: 33; Admin Dose 1 EA; Start 04/18/17 at 02:00 Miscellaneous Information 1 ea NOTE XX ; Start 04/17/17 at 21:00 Glucose (Glutose) 15 gm Q15M PRN PO DECREASED GLUCOSE; Start 04/17/17 at 21:00 Glucose (Glutose) 22.5 gm Q15M PRN PO DECREASED GLUCOSE; Start 04/17/17 at 21: 00 Dextrose (D50w Syringe) 25 ml Q15M PRN IV DECREASED GLUCOSE Last administered on 04/20/17 17:22; Admin Dose 25 ML; Start 04/17/17 at 21:00 Dextrose (D50w Syringe) 50 ml Q15M PRN IV DECREASED GLUCOSE; Start 04/17/17 at 21:00 Glucagon (Glucagen) 1 mg Q15M PRN IM DECREASED GLUCOSE; Start 04/17/17 at 21:00 Glucose (Glutose) 15 gm Q15M PRN BUCCAL DECREASED GLUCOSE; Start 04/17/17 at 21 :00 Ondansetron HCl 4 mg 4 mg Q6H PRN IV NAUSEA AND/OR VOMITING; Start 04/18/17 at 00:30 Cefepime HCl (Maxipime 2gm/50 ml (Pmx)) 50 ml @ 100 mls/hr Q24H IVPB Last administered on 04/22/17 17:34; Admin Dose 100 MLS/HR; Start 04/18/17 at 17:00 Insulin Aspart (Novolog Insulin Pen) (Adult SC Insulin - Mild Algorithm)... Q6 SC Last administered on 04/21/17 19:05; Admin Dose 1 UNIT; Start 04/20/17 at 00:00 Insulin Glargine (Lantus) 14 unit QHS SC Last administered on 04/21/17 20:26; Admin Dose 14 UNIT; Start 04/20/17 at 21:00 Amlodipine Besylate (Norvasc) 5 mg BID GTB Last administered on 04/22/17 08:47 ; Admin Dose 5 MG; Start 04/21/17 at 21:00 Metronidazole (Flagyl) 500 mg Q8 PO ; Start 04/22/17 at 22:00 LESLI SHEA Apr 22, 2017 21:32
[2017-04-22] MEDS: metroNIDAZOLE 500 MG TAB PO SCH (21:44)
[2017-04-22] MEDS: INSULIN GLARGINE [LANtus] 3 ML PEN SC SCH (21:44)
[2017-04-22] MEDS: DIPHENHYDRAMINE 25 MG CAP GTB PRN (21:44)
[2017-04-22] MEDS ORDERED: hydrALAzine 20 MG INJ IV PRN (22:00)
[2017-04-23] VITALS (13 sets, daily range): BP systolic 107–155; BP diastolic 52–74; PULSE 68–91; RESP 16–19
[2017-04-23] MEDS: Insulin NOVOLOG SS MILD Algorithm (NPO/TPN/ENTERAL FEEDS) SC SCH ×4 (00:29→23:56)
[2017-04-23] MEDS: ACCU-CHEK XX SCH (02:00)
[2017-04-23] MEDS: SOD CHLORIDE 0.45% 1,000 ML IV SCH ×3 (04:30→23:19)
[2017-04-23] MEDS: metroNIDAZOLE 500 MG TAB PO SCH ×3 (06:16→21:18)
[2017-04-23 08:31] LABS: BASOPHIL # 0.1 10^3/ul (0.0-0.1); BASOPHILS % 0.7 % (0.0-2.0); EOSINOPHILS # 0.9 10^3/ul (0.0-0.5); EOSINOPHILS % 5.2 % (0.0-7.0); HEMATOCRIT 30.3 % (42.0-52.0); HEMOGLOBIN 9.7 g/dl (14.0-18.0); LYMPHOCYTES # 2.2 10^3/ul (0.8-2.9); LYMPHOCYTES % 12.9 % (15.0-51.0); MEAN CORPUSCULAR HEMOGLOBIN 26.4 pg (29.0-33.0); MEAN CORPUSCULAR VOLUME 82.3 fl (82.0-101.0); MEAN PLATELET VOLUME 12.3 fl (7.4-10.4); MONOCYTE # 0.9 10^3/ul (0.3-0.9); MONOCYTES % 5.1 % (0.0-11.0); NEUTROPHILS % 75.6 % (39.0-77.0); PLATELET COUNT 249 10^3/UL (140-415); RED BLOOD COUNT 3.68 10^6/ul (4.70-6.10); RED CELL DISTRIBUTION WIDTH 18.4 % (11.5-14.5); WHITE BLOOD COUNT 16.8 10^3/ul (4.8-10.8)
[2017-04-23 08:50] LABS: CALCIUM 8.5 mg/dl (8.4-10.2); CREATININE 3.02 mg/dl (0.61-1.24); POTASSIUM 3.8 mmol/L (3.5-5.1)
[2017-04-23] MEDS: MULTIVITAMINS THERAPEUTIC TAB GTB SCH (09:31)
[2017-04-23] MEDS: TAMSULOSIN (SR) 0.4 MG CAP PO SCH (09:31)
[2017-04-23] MEDS: METOPROLOL 25 MG TAB PO SCH ×2 (09:37→21:18)
[2017-04-23] MEDS: AMLODIPINE 5 MG TAB GTB SCH ×2 (09:38→21:18)
[2017-04-23] MEDS: AMIODARONE 200 MG TAB GTB SCH (09:38)
--- NOTE | 2017-04-23 13:48 | PN ---
DATE: 04/23/2017 SUBJECTIVE DATA: No events overnight per discussion with RN. Patient is awake, confused and very restless. He is in no distress. No diarrhea overnight, and no fevers. Temperature 98.1, pulse 89, respirations 19, blood pressure 142/74, saturation 99 percent on nasal cannula. LABORATORY AND DIAGNOSTIC DATA: WBC 16.8, H and H 9.7 and 30.3, platelets 249,000; neutrophils 75.6. BUN 88, creatinine 3.02. MICROBIOLOGY: Blood and urine culture pending. Chest x-ray revealed clear lung mauro. ANTIMICROBIALS: The patient is on Flagyl and cefepime. INDWELLING: PEG, Flores. OBJECTIVE DATA: GENERAL: This is a chronically ill-appearing, elderly man, who is awake, confused, in no distress. HEENT: Head atraumatic, normocephalic. Sclerae anicteric. Buccal mucosa dry. NECK: Supple. Trachea midline. CHEST: Rise symmetrical. Breath sounds diminished at the bases. HEART: S1, S2. ABDOMEN: Soft, bowel sounds present. EXTREMITIES: No cyanosis. ASSESSMENT: 1. Persistent leukocytosis, rule out aspiration event, rule out Clostridium difficile colitis although no diarrhea since yesterday. Blood and urine cultures pending. Stool for C difficile pending, patient is on empiric Flagyl. 2. Urinary tract infection with urine culture on admission grew Escherichia coli. 3. Dysphagia, status post PEG. 4. Encephalopathy. 5. Acute on chronic kidney disease. 6. Coronary artery disease with atrial fibrillation. PLAN: The patient remains clinically unchanged although again on and off restless. We will keep him on current antimicrobials. Await for final cultures. Follow chest x-ray in a.m. Follow nephrology and cardiology recommendations. Continue anti- aspiration measures. Dictated By: Maria Brothers NP /jacklein/vazquez /Document#: [id number]
[2017-04-23] MEDS: DIPHENHYDRAMINE 25 MG CAP GTB PRN (15:47)
[2017-04-23] MEDS: ACETAMINOPHEN 325 MG TAB GTB PRN (15:47)
[2017-04-23] MEDS: CEFEPIME 2GM/50 ML (PMX) 50 ML IVPB SCH (16:13)
[2017-04-23] MEDS: BISACODYL 10 MG SUPP PR SCH (18:00)
--- NOTE | 2017-04-23 18:17 | CONS ---
Date/Time of Note Date/Time of Note DATE: 04/23/17 TIME: 18:15 Assessment/Plan Assessment/Plan Chief Complaint/Hosp Course 1. CKD, mild 2. Encephalopathy 3. SIRS 4. UTI 5. Dysphagia Problems: Additional Assessment/Plan 1.continue current regime 2. Optimization kidney function Consultation Date/Type/Reason Admit Date/Time Apr 17, 2017 at 16:39 Initial Consult Date 04/18/17 Type of Consultation: nephrology Reason for Consultation dr hsu Referring Provider: PORTIA OLIVER MD 24 HR Interval Summary Constitutional: disoriented, requiring IVF Exam/Review of Systems Vital Signs Vitals Vital Signs Date Time Temp Pulse Resp B/P Pulse Ox O2 Delivery O2 Flow Rate FiO2 04/23/17 16:26 75 04/23/17 15:50 97.9 19 133/60 98 Intake and Output 04/22/17 04/22/17 04/23/17 15:00 23:00 07:00 Intake Total 385 ml 400 ml 385 ml Output Total 800 ml 1000 ml 1000 ml Balance -415 ml -600 ml -615 ml Exam Constitutional: alert, frail Psych: confusion Head: normocephalic ENMT: nl external ears & nose Neck: supple Respiratory: diminished breath sounds Cardiovascular: irregular rhythm Gastrointestinal: other (g tube), soft Results Result Diagram: 04/23/17 0735 04/23/17 0734 Results 24 hrs Laboratory Tests Test 04/22/17 21:42 04/23/17 00:28 04/23/17 06:14 04/23/17 07:34 Bedside Glucose 144 150 81 Sodium Level 135 Potassium Level 3.8 Chloride Level 105 Carbon Dioxide Level 21 Anion Gap 13 Blood Urea Nitrogen 88 H Creatinine 3.02 H Glucose Level 89 # Calcium Level 8.5 Test 04/23/17 07:35 04/23/17 12:37 04/23/17 17:35 White Blood Count 16.8 H Red Blood Count 3.68 L Hemoglobin 9.7 L Hematocrit 30.3 L Mean Corpuscular Volume 82.3 Mean Corpuscular Hemoglobin 26.4 L Mean Corpuscular Hemoglobin Concent 32.0 Red Cell Distribution Width 18.4 H Platelet Count 249 Mean Platelet Volume 12.3 H Neutrophils % 75.6 Lymphocytes % 12.9 L Monocytes % 5.1 Eosinophils % 5.2 Basophils % 0.7 Nucleated Red Blood Cells % 0.0 Neutrophils # (Manual) 12.7 H Lymphocytes # 2.2 Monocytes # 0.9 Eosinophils # 0.9 H Basophils # 0.1 Nucleated Red Blood Cells # 0.0 Bedside Glucose 85 106 Medications Medications Current Medications Acetaminophen (Tylenol Tab) 650 mg Q6H PRN GTB PAIN AND OR ELEVATED TEMP Last administered on 04/23/17 15:47; Admin Dose 650 MG; Start 04/17/17 at 18:00 Amiodarone HCl (Cordarone) 100 mg DAILY GTB Last administered on 04/23/17 09:38 ; Admin Dose 100 MG; Start 04/18/17 at 09:00 Bisacodyl (Dulcolax Supp) 10 mg Q24H [place] Last administered on 04/21/17 17:43; Admin Dose 10 MG; Start 04/17/17 at 18:00 Diphenhydramine HCl (Benadryl) 25 mg Q6H PRN GTB ITCHING Last administered on 15:47; Admin Dose 25 MG; Start 04/17/17 at 18:00 Hydralazine HCl (Apresoline) 50 mg Q8 PRN GTB ELEVATED BLOOD PRESSURE Last administered on 04/18/17 13:18; Admin Dose 50 MG; Start 04/17/17 at 18:00 Multivitamins Therapeutic (Theragran) 1 tab DAILY GTB Last administered on 09:31; Admin Dose 1 TAB; Start 04/18/17 at 09:00 Tamsulosin HCl 0.4 mg 0.4 mg DAILY PO Last administered on 04/23/17 09:31; Admin Dose 0.4 MG; Start 04/18/17 at 09:00 Sodium Chloride (1/2 NS) 1,000 ml @ 100 mls/hr Q10H IV Last administered on 09:48; Admin Dose 100 MLS/HR; Start 04/17/17 at 18:30 Diagnostic Test (Pha) (Accu-Chek) 1 ea 02 XX Last administered on 04/21/17 02: 33; Admin Dose 1 EA; Start 04/18/17 at 02:00 Miscellaneous Information 1 ea NOTE XX ; Start 04/17/17 at 21:00 Glucose (Glutose) 15 gm Q15M PRN PO DECREASED GLUCOSE; Start 04/17/17 at 21:00 Glucose (Glutose) 22.5 gm Q15M PRN PO DECREASED GLUCOSE; Start 04/17/17 at 21: 00 Dextrose (D50w Syringe) 25 ml Q15M PRN IV DECREASED GLUCOSE Last administered on 04/20/17 17:22; Admin Dose 25 ML; Start 04/17/17 at 21:00 Dextrose (D50w Syringe) 50 ml Q15M PRN IV DECREASED GLUCOSE; Start 04/17/17 at 21:00 Glucagon (Glucagen) 1 mg Q15M PRN IM DECREASED GLUCOSE; Start 04/17/17 at 21:00 Glucose (Glutose) 15 gm Q15M PRN BUCCAL DECREASED GLUCOSE; Start 04/17/17 at 21 :00 Ondansetron HCl 4 mg 4 mg Q6H PRN IV NAUSEA AND/OR VOMITING; Start 04/18/17 at 00:30 Cefepime HCl (Maxipime 2gm/50 ml (Pmx)) 50 ml @ 100 mls/hr Q24H IVPB Last administered on 04/23/17 16:13; Admin Dose 100 MLS/HR; Start 04/18/17 at 17:00 Insulin Aspart (Novolog Insulin Pen) (Adult SC Insulin - Mild Algorithm)... Q6 SC Last administered on 04/23/17 00:29; Admin Dose 1 UNIT; Start 04/20/17 at 00 :00 Insulin Glargine (Lantus) 14 unit QHS SC Last administered on 04/22/17 21:44; Admin Dose 14 UNIT; Start 04/20/17 at 21:00 Amlodipine Besylate (Norvasc) 5 mg BID GTB Last administered on 04/23/17 09:38 ; Admin Dose 5 MG; Start 04/21/17 at 21:00 Metronidazole (Flagyl) 500 mg Q8 PO Last administered on 04/23/17 14:02; Admin Dose 500 MG; Start 04/22/17 at 22:00 Metoprolol Tartrate (Lopressor) 25 mg BID PO Last administered on 04/23/17 09: 37; Admin Dose 25 MG; Start 04/23/17 at 09:00 Hydralazine HCl (Apresoline) 25 mg Q8 PO Last administered on 04/23/17 14:02; Admin Dose 25 MG; Start 04/22/17 at 22:00 Hydralazine HCl (Apresoline) 10 mg Q4H PRN IV SBP>170; Start 04/22/17 at 22:00 CHELSIE HERNÁNDEZ Apr 23, 2017 18:17
--- NOTE | 2017-04-23 19:29 | PN ---
Date/Time of Note Date/Time of Note DATE: 04/23/17 TIME: 19:26 Assessment/Plan Lines/Catheters IV Catheter Type (from [facility]): Saline Lock Urinary Cath still in place: Yes Assessment/Plan Assessment/Plan - Leukocytosis sec to UTI- maira Albicans - -Acute cystitis without hematuria - sp Vanco/Zosyn - fu urine c/s - ID consult- Dr Garcia notified - am labs -Acute weakness sec to Dizziness - cardiology consult - 2D Echo am- LVEF 65% - Electrolyte imbalance- per nephrology - Hyperkalemia- RESOLVED - Hypernatremia - Hyperphosphatemia - Acute renal failure on Chronic Kidney disease - per nephro consult- dr Cheema - Dysphagia - sp PEG placement - aspiration precautions - cont tube feeding - History of paroxysmal atrial fibrillation.- no acute issues. SR at present - Diabetes mellitus. - Glycemic control - Dietary consult - visual journalist consult - Chronic kidney disease. - History of cerebrovascular accident- no acute issues reported - Hx AMS Plan of care dw Dr Patel/staff Exam/Review of Systems Vital Signs Vitals Vital Signs Date Time Temp Pulse Resp B/P Pulse Ox O2 Delivery O2 Flow Rate FiO2 04/23/17 16:26 75 04/23/17 15:50 97.9 19 133/60 98 Intake and Output 04/22/17 04/22/17 04/23/17 15:00 23:00 07:00 Intake Total 385 ml 400 ml 385 ml Output Total 800 ml 1000 ml 1000 ml Balance -415 ml -600 ml -615 ml Results Result Diagram: 04/23/17 0735 04/23/17 0734 Results 24 hrs Laboratory Tests Test 04/22/17 21:42 04/23/17 00:28 04/23/17 06:14 04/23/17 07:34 Bedside Glucose 144 150 81 Sodium Level 135 Potassium Level 3.8 Chloride Level 105 Carbon Dioxide Level 21 Anion Gap 13 Blood Urea Nitrogen 88 H Creatinine 3.02 H Glucose Level 89 # Calcium Level 8.5 Test 04/23/17 07:35 04/23/17 12:37 04/23/17 17:35 White Blood Count 16.8 H Red Blood Count 3.68 L Hemoglobin 9.7 L Hematocrit 30.3 L Mean Corpuscular Volume 82.3 Mean Corpuscular Hemoglobin 26.4 L Mean Corpuscular Hemoglobin Concent 32.0 Red Cell Distribution Width 18.4 H Platelet Count 249 Mean Platelet Volume 12.3 H Neutrophils % 75.6 Lymphocytes % 12.9 L Monocytes % 5.1 Eosinophils % 5.2 Basophils % 0.7 Nucleated Red Blood Cells % 0.0 Neutrophils # (Manual) 12.7 H Lymphocytes # 2.2 Monocytes # 0.9 Eosinophils # 0.9 H Basophils # 0.1 Nucleated Red Blood Cells # 0.0 Bedside Glucose 85 106 Medications Medications Current Medications Acetaminophen (Tylenol Tab) 650 mg Q6H PRN GTB PAIN AND OR ELEVATED TEMP Last administered on 04/23/17 15:47; Admin Dose 650 MG; Start 04/17/17 at 18:00 Amiodarone HCl (Cordarone) 100 mg DAILY GTB Last administered on 04/23/17 09:38 ; Admin Dose 100 MG; Start 04/18/17 at 09:00 Bisacodyl (Dulcolax Supp) 10 mg Q24H ID Last administered on 04/21/17 17:43; Admin Dose 10 MG; Start 04/17/17 at 18:00 Diphenhydramine HCl (Benadryl) 25 mg Q6H PRN GTB ITCHING Last administered on 15:47; Admin Dose 25 MG; Start 04/17/17 at 18:00 Hydralazine HCl (Apresoline) 50 mg Q8 PRN GTB ELEVATED BLOOD PRESSURE Last administered on 04/18/17 13:18; Admin Dose 50 MG; Start 04/17/17 at 18:00 Multivitamins Therapeutic (Theragran) 1 tab DAILY GTB Last administered on 09:31; Admin Dose 1 TAB; Start 04/18/17 at 09:00 Tamsulosin HCl 0.4 mg 0.4 mg DAILY PO Last administered on 04/23/17 09:31; Admin Dose 0.4 MG; Start 04/18/17 at 09:00 Sodium Chloride (1/2 NS) 1,000 ml @ 100 mls/hr Q10H IV Last administered on 09:48; Admin Dose 100 MLS/HR; Start 04/17/17 at 18:30 Diagnostic Test (Pha) (Accu-Chek) 1 ea 02 XX Last administered on 04/21/17 02: 33; Admin Dose 1 EA; Start 04/18/17 at 02:00 Miscellaneous Information 1 ea NOTE XX ; Start 04/17/17 at 21:00 Glucose (Glutose) 15 gm Q15M PRN PO DECREASED GLUCOSE; Start 04/17/17 at 21:00 Glucose (Glutose) 22.5 gm Q15M PRN PO DECREASED GLUCOSE; Start 04/17/17 at 21: 00 Dextrose (D50w Syringe) 25 ml Q15M PRN IV DECREASED GLUCOSE Last administered on 04/20/17 17:22; Admin Dose 25 ML; Start 04/17/17 at 21:00 Dextrose (D50w Syringe) 50 ml Q15M PRN IV DECREASED GLUCOSE; Start 04/17/17 at 21:00 Glucagon (Glucagen) 1 mg Q15M PRN IM DECREASED GLUCOSE; Start 04/17/17 at 21:00 Glucose (Glutose) 15 gm Q15M PRN BUCCAL DECREASED GLUCOSE; Start 04/17/17 at 21 :00 Ondansetron HCl 4 mg 4 mg Q6H PRN IV NAUSEA AND/OR VOMITING; Start 04/18/17 at 00:30 Cefepime HCl (Maxipime 2gm/50 ml (Pmx)) 50 ml @ 100 mls/hr Q24H IVPB Last administered on 04/23/17 16:13; Admin Dose 100 MLS/HR; Start 04/18/17 at 17:00 Insulin Aspart (Novolog Insulin Pen) (Adult SC Insulin - Mild Algorithm)... Q6 SC Last administered on 04/23/17 00:29; Admin Dose 1 UNIT; Start 04/20/17 at 00 :00 Insulin Glargine (Lantus) 14 unit QHS SC Last administered on 04/22/17 21:44; Admin Dose 14 UNIT; Start 04/20/17 at 21:00 Amlodipine Besylate (Norvasc) 5 mg BID GTB Last administered on 04/23/17 09:38 ; Admin Dose 5 MG; Start 04/21/17 at 21:00 Metronidazole (Flagyl) 500 mg Q8 PO Last administered on 04/23/17 14:02; Admin Dose 500 MG; Start 04/22/17 at 22:00 Metoprolol Tartrate (Lopressor) 25 mg BID PO Last administered on 04/23/17 09: 37; Admin Dose 25 MG; Start 04/23/17 at 09:00 Hydralazine HCl (Apresoline) 25 mg Q8 PO Last administered on 04/23/17 14:02; Admin Dose 25 MG; Start 04/22/17 at 22:00 Hydralazine HCl (Apresoline) 10 mg Q4H PRN IV SBP>170; Start 04/22/17 at 22:00 MARCY WEINER Apr 23, 2017 19:29
[2017-04-23] MEDS: INSULIN GLARGINE [LANtus] 3 ML PEN SC SCH (20:41)
[2017-04-24] VITALS (13 sets, daily range): BP systolic 114–138; BP diastolic 56–67; PULSE 61–79; RESP 18–20
[2017-04-24] MEDS: ACCU-CHEK XX SCH (02:00)
[2017-04-24] MEDS: ACETAMINOPHEN 325 MG TAB GTB PRN ×2 (02:07→21:33)
[2017-04-24] MEDS: DIPHENHYDRAMINE 25 MG CAP GTB PRN ×2 (02:21→21:33)
[2017-04-24] MEDS: Insulin NOVOLOG SS MILD Algorithm (NPO/TPN/ENTERAL FEEDS) SC SCH ×3 (05:44→18:12)
[2017-04-24] MEDS: metroNIDAZOLE 500 MG TAB PO SCH ×3 (05:52→21:33)
[2017-04-24] MEDS: MULTIVITAMINS THERAPEUTIC TAB GTB SCH (08:27)
[2017-04-24] MEDS: AMIODARONE 200 MG TAB GTB SCH (08:28)
[2017-04-24] MEDS: AMLODIPINE 5 MG TAB GTB SCH ×2 (08:28→21:33)
[2017-04-24] MEDS: TAMSULOSIN (SR) 0.4 MG CAP PO SCH (08:28)
[2017-04-24] MEDS: METOPROLOL 25 MG TAB PO SCH ×2 (08:29→21:34)
[2017-04-24] MEDS: SOD CHLORIDE 0.45% 1,000 ML IV SCH ×2 (10:00→21:34)
--- NOTE | 2017-04-24 10:17 | CONS ---
Date/Time of Note Date/Time of Note DATE: 04/24/17 TIME: 10:00 Assessment/Plan Assessment/Plan Chief Complaint/Hosp Course ID PROGRESS NOTE ABX DAY #6 => Cefepime #6 + Flagyl #2 s/p Vanco IV 04/17-04/08 24H INTERVAL SUMMARY * (+)Hiccups, nonverbal, lethargy persisting, no fevers, VSS, appears comfortable * 04/22 BCx(-); 04/22/Urine Cx (-) * 04/22 CXR: No evidence consolidating PNA/edema * LABS 04/23/17 0735 04/23/17 0734 PHYSICAL EXAMINATION: GENERAL: Thin appearing debilitated M, calm, looks comfortable HEENT: Unremarkable NECK: Trach-> midline CHEST: Equal chest rise bilaterally, without dyspnea on observation ABDOMEN: Soft, peg EXTREMITIES: Warm, SKIN: Warm, dry ID ASSESSMENT: 71 yo M w/PMHx CVA w/LE weakness, dementia, dysphagia admitted with: 1. Persistent leukocytosis, rule out aspiration event, rule out * Clostridium difficile colitis diarrhea => resolving * Blood and urine cultures 04/22 (-) * CXR 04/22 (-) 2. GNR Urinary tract infection=> urine culture on admission grew Escherichia coli. 3. Dysphagia, status post PEG. 4. s/p recent Aspiration PNA w/residual bronchiolitis recent admission MAR 2017 => Resolved 5. Encephalopathy. 6. Acute on chronic kidney disease. 7. HTN 8. DMII 9. Afib 10. 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 Neurogenic bladder with retention 13. Sacral decub II, heel decub 14. Hx of hip surgery INVASIVES: Flores, PEG. PIV ABX ALLERGIES: NKDA CURRENT ABX: ABX DAY #6 => Cefepime #6 + Flagyl #2 s/p Vanco IV 04/17-04/08 ID RECOMMENDATIONS: 1. Let's DC Cefepime -> he has hx of yeast UTI, limit ABX to avoid MDRO 2. Continue Flagyl 2. ASP Precautions 3. ID team will follow Problems: Consultation Date/Type/Reason Admit Date/Time Apr 17, 2017 at 16:39 Initial Consult Date 04/18/17 Type of Consultation: ID Referring Provider: PORTIA OLIVER MD Exam/Review of Systems Vital Signs Vitals Vital Signs Date Time Temp Pulse Resp B/P Pulse Ox O2 Delivery O2 Flow Rate FiO2 04/24/17 08:16 70 04/24/17 07:33 97.9 19 135/61 98 Intake and Output 04/23/17 04/23/17 04/24/17 15:00 23:00 07:00 Intake Total 720 ml 720 ml Output Total 600 ml 1450 ml Balance 120 ml -730 ml Results Result Diagram: 04/23/17 0735 04/23/17 0734 Results 24 hrs Laboratory Tests Test 04/23/17 12:37 04/23/17 17:35 04/23/17 20:36 04/23/17 23:50 Bedside Glucose 85 106 127 133 Test 04/24/17 05:36 Bedside Glucose 149 Medications Medications Current Medications Acetaminophen (Tylenol Tab) 650 mg Q6H PRN GTB PAIN AND OR ELEVATED TEMP Last administered on 04/24/17 02:07; Admin Dose 650 MG; Start 04/17/17 at 18:00 Amiodarone HCl (Cordarone) 100 mg DAILY GTB Last administered on 04/24/17 08:28 ; Admin Dose 100 MG; Start 04/18/17 at 09:00 Bisacodyl (Dulcolax Supp) 10 mg Q24H [place] Last administered on 04/21/17 17:43; Admin Dose 10 MG; Start 04/17/17 at 18:00 Diphenhydramine HCl (Benadryl) 25 mg Q6H PRN GTB ITCHING Last administered on 02:21; Admin Dose 25 MG; Start 04/17/17 at 18:00 Hydralazine HCl (Apresoline) 50 mg Q8 PRN GTB ELEVATED BLOOD PRESSURE Last administered on 04/18/17 13:18; Admin Dose 50 MG; Start 04/17/17 at 18:00 Multivitamins Therapeutic (Theragran) 1 tab DAILY GTB Last administered on 08:27; Admin Dose 1 TAB; Start 04/18/17 at 09:00 Tamsulosin HCl 0.4 mg 0.4 mg DAILY PO Last administered on 04/24/17 08:28; Admin Dose 0.4 MG; Start 04/18/17 at 09:00 Sodium Chloride (1/2 NS) 1,000 ml @ 100 mls/hr Q10H IV Last administered on 23:19; Admin Dose 100 MLS/HR; Start 04/17/17 at 18:30 Diagnostic Test (Pha) (Accu-Chek) 1 ea 02 XX Last administered on 04/21/17 02: 33; Admin Dose 1 EA; Start 04/18/17 at 02:00 Miscellaneous Information 1 ea NOTE XX ; Start 04/17/17 at 21:00 Glucose (Glutose) 15 gm Q15M PRN PO DECREASED GLUCOSE; Start 04/17/17 at 21:00 Glucose (Glutose) 22.5 gm Q15M PRN PO DECREASED GLUCOSE; Start 04/17/17 at 21: 00 Dextrose (D50w Syringe) 25 ml Q15M PRN IV DECREASED GLUCOSE Last administered on 04/20/17 17:22; Admin Dose 25 ML; Start 04/17/17 at 21:00 Dextrose (D50w Syringe) 50 ml Q15M PRN IV DECREASED GLUCOSE; Start 04/17/17 at 21:00 Glucagon (Glucagen) 1 mg Q15M PRN IM DECREASED GLUCOSE; Start 04/17/17 at 21:00 Glucose (Glutose) 15 gm Q15M PRN BUCCAL DECREASED GLUCOSE; Start 04/17/17 at 21 :00 Ondansetron HCl 4 mg 4 mg Q6H PRN IV NAUSEA AND/OR VOMITING; Start 04/18/17 at 00:30 Cefepime HCl (Maxipime 2gm/50 ml (Pmx)) 50 ml @ 100 mls/hr Q24H IVPB Last administered on 04/23/17 16:13; Admin Dose 100 MLS/HR; Start 04/18/17 at 17:00 Insulin Aspart (Novolog Insulin Pen) (Adult SC Insulin - Mild Algorithm)... Q6 SC Last administered on 04/24/17 05:44; Admin Dose 1 UNIT; Start 04/20/17 at 00 :00 Insulin Glargine (Lantus) 14 unit QHS SC Last administered on 04/23/17 20:41; Admin Dose 14 UNIT; Start 04/20/17 at 21:00 Amlodipine Besylate (Norvasc) 5 mg BID GTB Last administered on 04/24/17 08:28 ; Admin Dose 5 MG; Start 04/21/17 at 21:00 Metronidazole (Flagyl) 500 mg Q8 PO Last administered on 04/24/17 05:52; Admin Dose 500 MG; Start 04/22/17 at 22:00 Metoprolol Tartrate (Lopressor) 25 mg BID PO Last administered on 04/24/17 08: 29; Admin Dose 25 MG; Start 04/23/17 at 09:00 Hydralazine HCl (Apresoline) 25 mg Q8 PO Last administered on 04/24/17 05:52; Admin Dose 25 MG; Start 04/22/17 at 22:00 Hydralazine HCl (Apresoline) 10 mg Q4H PRN IV SBP>170; Start 04/22/17 at 22:00 ANNE-MARIE PRAKASH NP Apr 24, 2017 10:11
--- NOTE | 2017-04-24 11:07 | PN ---
Date/Time of Note Date/Time of Note DATE: 04/24/17 TIME: 11:06 Assessment/Plan VTE Prophylaxis VTE Prophylaxis Intervention: other Lines/Catheters IV Catheter Type (from [facility]): Saline Lock Urinary Cath still in place: Yes Reason Cath still needed: skin wounds contaminated by urine Assessment/Plan Chief Complaint/Hosp Course - generelized itching- Benadryl- ok now -Sepsis was positive blood cultures. Dr. Tom is following an infection disease consultation. Continue broad-spectrum antibiotics. -Coli UTI. -Severe hypokalemia, resolved -Nausea and vomiting on admission, resolved -Acute kidney injury secondary to dehydration, Dr. Castillo is following in nephrology consultation. Continue IV fluids -Electrolyte imbalances -History of Hirschsprung disease -Ileostomy -Right chest Port-A-Cath Problems: Subjective 24 Hr Interval Summary Free Text/Dictation Patient is resting comfortably, not responsive to voice or touch Exam/Review of Systems Vital Signs Vitals Vital Signs Date Time Temp Pulse Resp B/P Pulse Ox O2 Delivery O2 Flow Rate FiO2 04/24/17 08:16 70 04/24/17 07:33 97.9 19 135/61 98 Intake and Output 04/23/17 04/23/17 04/24/17 15:00 23:00 07:00 Intake Total 720 ml 720 ml Output Total 600 ml 1450 ml Balance 120 ml -730 ml Exam Constitutional: well developed Head: atraumatic, normocephalic Neck: supple Respiratory: diminished breath sounds Cardiovascular: regular rate and rhythm Gastrointestinal: non-tender, soft Extremities: normal pulses Results Result Diagram: 04/23/17 0735 04/23/17 0734 Results 24 hrs Laboratory Tests Test 04/23/17 12:37 04/23/17 17:35 04/23/17 20:36 04/23/17 23:50 Bedside Glucose 85 106 127 133 Test 04/24/17 05:36 Bedside Glucose 149 Medications Medications Current Medications Acetaminophen (Tylenol Tab) 650 mg Q6H PRN GTB PAIN AND OR ELEVATED TEMP Last administered on 04/24/17 02:07; Admin Dose 650 MG; Start 04/17/17 at 18:00 Amiodarone HCl (Cordarone) 100 mg DAILY GTB Last administered on 04/24/17 08:28 ; Admin Dose 100 MG; Start 04/18/17 at 09:00 Bisacodyl (Dulcolax Supp) 10 mg Q24H [place] Last administered on 04/21/17 17:43; Admin Dose 10 MG; Start 04/17/17 at 18:00 Diphenhydramine HCl (Benadryl) 25 mg Q6H PRN GTB ITCHING Last administered on 02:21; Admin Dose 25 MG; Start 04/17/17 at 18:00 Hydralazine HCl (Apresoline) 50 mg Q8 PRN GTB ELEVATED BLOOD PRESSURE Last administered on 04/18/17 13:18; Admin Dose 50 MG; Start 04/17/17 at 18:00 Multivitamins Therapeutic (Theragran) 1 tab DAILY GTB Last administered on 08:27; Admin Dose 1 TAB; Start 04/18/17 at 09:00 Tamsulosin HCl 0.4 mg 0.4 mg DAILY PO Last administered on 04/24/17 08:28; Admin Dose 0.4 MG; Start 04/18/17 at 09:00 Sodium Chloride (1/2 NS) 1,000 ml @ 100 mls/hr Q10H IV Last administered on 10:00; Admin Dose 100 MLS/HR; Start 04/17/17 at 18:30 Diagnostic Test (Pha) (Accu-Chek) 1 ea 02 XX Last administered on 04/21/17 02: 33; Admin Dose 1 EA; Start 04/18/17 at 02:00 Miscellaneous Information 1 ea NOTE XX ; Start 04/17/17 at 21:00 Glucose (Glutose) 15 gm Q15M PRN PO DECREASED GLUCOSE; Start 04/17/17 at 21:00 Glucose (Glutose) 22.5 gm Q15M PRN PO DECREASED GLUCOSE; Start 04/17/17 at 21: 00 Dextrose (D50w Syringe) 25 ml Q15M PRN IV DECREASED GLUCOSE Last administered on 04/20/17 17:22; Admin Dose 25 ML; Start 04/17/17 at 21:00 Dextrose (D50w Syringe) 50 ml Q15M PRN IV DECREASED GLUCOSE; Start 04/17/17 at 21:00 Glucagon (Glucagen) 1 mg Q15M PRN IM DECREASED GLUCOSE; Start 04/17/17 at 21:00 Glucose (Glutose) 15 gm Q15M PRN BUCCAL DECREASED GLUCOSE; Start 04/17/17 at 21 :00 Ondansetron HCl (Zofran Inj) 4 mg Q6H PRN IV NAUSEA AND/OR VOMITING; Start at 00:30 Insulin Aspart (Novolog Insulin Pen) (Adult SC Insulin - Mild Algorithm)... Q6 SC Last administered on 04/24/17 05:44; Admin Dose 1 UNIT; Start 04/20/17 at 00 :00 Insulin Glargine (Lantus) 14 unit QHS SC Last administered on 04/23/17 20:41; Admin Dose 14 UNIT; Start 04/20/17 at 21:00 Amlodipine Besylate (Norvasc) 5 mg BID GTB Last administered on 04/24/17 08:28 ; Admin Dose 5 MG; Start 04/21/17 at 21:00 Metronidazole (Flagyl) 500 mg Q8 PO Last administered on 04/24/17 05:52; Admin Dose 500 MG; Start 04/22/17 at 22:00 Metoprolol Tartrate (Lopressor) 25 mg BID PO Last administered on 04/24/17 08: 29; Admin Dose 25 MG; Start 04/23/17 at 09:00 Hydralazine HCl (Apresoline) 25 mg Q8 PO Last administered on 04/24/17 05:52; Admin Dose 25 MG; Start 04/22/17 at 22:00 Hydralazine HCl (Apresoline) 10 mg Q4H PRN IV SBP>170; Start 04/22/17 at 22:00 AURA CALL Apr 24, 2017 11:07
--- NOTE | 2017-04-24 12:19 | CONS ---
Date/Time of Note Date/Time of Note DATE: 04/24/17 TIME: 12:18 Assessment/Plan Assessment/Plan Chief Complaint/Hosp Course 1. CKD, mild 2. Encephalopathy 3. SIRS 4. UTI 5. Dysphagia Problems: Additional Assessment/Plan 1. Optimization of kidney function Consultation Date/Type/Reason Admit Date/Time Apr 17, 2017 at 16:39 Initial Consult Date 04/18/17 Type of Consultation: nephrology Reason for Consultation Dr Cheema Referring Provider: PORTIA OLIVER MD Exam/Review of Systems Vital Signs Vitals Vital Signs Date Time Temp Pulse Resp B/P Pulse Ox O2 Delivery O2 Flow Rate FiO2 04/24/17 12:08 61 04/24/17 11:32 97.9 19 114/56 96 Intake and Output 04/23/17 04/23/17 04/24/17 15:00 23:00 07:00 Intake Total 720 ml 720 ml Output Total 600 ml 1450 ml Balance 120 ml -730 ml Exam Constitutional: alert Psych: confusion Head: normocephalic Respiratory: diminished breath sounds Cardiovascular: regular rate and rhythm Gastrointestinal: other (G tube), soft Results Result Diagram: 04/23/17 0735 04/23/17 0734 Results 24 hrs Laboratory Tests Test 04/23/17 12:37 04/23/17 17:35 04/23/17 20:36 04/23/17 23:50 Bedside Glucose 85 106 127 133 Test 04/24/17 05:36 Bedside Glucose 149 Medications Medications Current Medications Acetaminophen (Tylenol Tab) 650 mg Q6H PRN GTB PAIN AND OR ELEVATED TEMP Last administered on 04/24/17 02:07; Admin Dose 650 MG; Start 04/17/17 at 18:00 Amiodarone HCl (Cordarone) 100 mg DAILY GTB Last administered on 04/24/17 08:28 ; Admin Dose 100 MG; Start 04/18/17 at 09:00 Bisacodyl (Dulcolax Supp) 10 mg Q24H [place] Last administered on 04/21/17 17:43; Admin Dose 10 MG; Start 04/17/17 at 18:00 Diphenhydramine HCl (Benadryl) 25 mg Q6H PRN GTB ITCHING Last administered on 02:21; Admin Dose 25 MG; Start 04/17/17 at 18:00 Hydralazine HCl (Apresoline) 50 mg Q8 PRN GTB ELEVATED BLOOD PRESSURE Last administered on 04/18/17 13:18; Admin Dose 50 MG; Start 04/17/17 at 18:00 Multivitamins Therapeutic (Theragran) 1 tab DAILY GTB Last administered on 08:27; Admin Dose 1 TAB; Start 04/18/17 at 09:00 Tamsulosin HCl 0.4 mg 0.4 mg DAILY PO Last administered on 04/24/17 08:28; Admin Dose 0.4 MG; Start 04/18/17 at 09:00 Sodium Chloride (1/2 NS) 1,000 ml @ 100 mls/hr Q10H IV Last administered on 10:00; Admin Dose 100 MLS/HR; Start 04/17/17 at 18:30 Diagnostic Test (Pha) (Accu-Chek) 1 ea 02 XX Last administered on 04/21/17 02: 33; Admin Dose 1 EA; Start 04/18/17 at 02:00 Miscellaneous Information 1 ea NOTE XX ; Start 04/17/17 at 21:00 Glucose (Glutose) 15 gm Q15M PRN PO DECREASED GLUCOSE; Start 04/17/17 at 21:00 Glucose (Glutose) 22.5 gm Q15M PRN PO DECREASED GLUCOSE; Start 04/17/17 at 21: 00 Dextrose (D50w Syringe) 25 ml Q15M PRN IV DECREASED GLUCOSE Last administered on 04/20/17 17:22; Admin Dose 25 ML; Start 04/17/17 at 21:00 Dextrose (D50w Syringe) 50 ml Q15M PRN IV DECREASED GLUCOSE; Start 04/17/17 at 21:00 Glucagon (Glucagen) 1 mg Q15M PRN IM DECREASED GLUCOSE; Start 04/17/17 at 21:00 Glucose (Glutose) 15 gm Q15M PRN BUCCAL DECREASED GLUCOSE; Start 04/17/17 at 21 :00 Ondansetron HCl (Zofran Inj) 4 mg Q6H PRN IV NAUSEA AND/OR VOMITING; Start at 00:30 Insulin Aspart (Novolog Insulin Pen) (Adult SC Insulin - Mild Algorithm)... Q6 SC Last administered on 04/24/17 05:44; Admin Dose 1 UNIT; Start 04/20/17 at 00 :00 Insulin Glargine (Lantus) 14 unit QHS SC Last administered on 04/23/17 20:41; Admin Dose 14 UNIT; Start 04/20/17 at 21:00 Amlodipine Besylate (Norvasc) 5 mg BID GTB Last administered on 04/24/17 08:28 ; Admin Dose 5 MG; Start 04/21/17 at 21:00 Metronidazole (Flagyl) 500 mg Q8 PO Last administered on 04/24/17 05:52; Admin Dose 500 MG; Start 04/22/17 at 22:00 Metoprolol Tartrate (Lopressor) 25 mg BID PO Last administered on 04/24/17 08: 29; Admin Dose 25 MG; Start 04/23/17 at 09:00 Hydralazine HCl (Apresoline) 25 mg Q8 PO Last administered on 04/24/17 05:52; Admin Dose 25 MG; Start 04/22/17 at 22:00 Hydralazine HCl (Apresoline) 10 mg Q4H PRN IV SBP>170; Start 04/22/17 at 22:00 CHELSIE HERNÁNDEZ Apr 24, 2017 12:19
[2017-04-24] MEDS: BISACODYL 10 MG SUPP PR SCH (18:13)
[2017-04-24] MEDS: INSULIN GLARGINE [LANtus] 3 ML PEN SC SCH (21:35)
[2017-04-25] VITALS (16 sets, daily range): BP systolic 107–170; BP diastolic 57–79; PULSE 65–87; RESP 16–18
[2017-04-25] MEDS: Insulin NOVOLOG SS MILD Algorithm (NPO/TPN/ENTERAL FEEDS) SC SCH ×5 (00:53→22:08)
[2017-04-25] MEDS: ACCU-CHEK XX SCH (02:00)
[2017-04-25] MEDS: metroNIDAZOLE 500 MG TAB PO SCH ×3 (06:01→22:23)
[2017-04-25] MEDS: SOD CHLORIDE 0.45% 1,000 ML IV SCH ×2 (06:05→16:32)
[2017-04-25 08:20] LABS: BASOPHIL # 0.1 10^3/ul (0.0-0.1); BASOPHILS % 0.8 % (0.0-2.0); EOSINOPHILS # 0.7 10^3/ul (0.0-0.5); EOSINOPHILS % 5.1 % (0.0-7.0); HEMATOCRIT 29.7 % (42.0-52.0); HEMOGLOBIN 9.7 g/dl (14.0-18.0); LYMPHOCYTES # 1.6 10^3/ul (0.8-2.9); LYMPHOCYTES % 11.5 % (15.0-51.0); MEAN CORPUSCULAR HEMOGLOBIN 26.9 pg (29.0-33.0); MEAN CORPUSCULAR HGB CONC 32.7 g/dl (32.0-37.0); MEAN CORPUSCULAR VOLUME 82.3 fl (82.0-101.0); MEAN PLATELET VOLUME 12.5 fl (7.4-10.4); MONOCYTE # 0.8 10^3/ul (0.3-0.9); MONOCYTES % 5.8 % (0.0-11.0); NEUTROPHILS % 76.2 % (39.0-77.0); PLATELET COUNT 278 10^3/UL (140-415); RED BLOOD COUNT 3.61 10^6/ul (4.70-6.10); RED CELL DISTRIBUTION WIDTH 18.4 % (11.5-14.5)
[2017-04-25 08:38] LABS: CALCIUM 8.2 mg/dl (8.4-10.2); CREATININE 3.1 mg/dl (0.61-1.24); POTASSIUM 4.1 mmol/L (3.5-5.1)
[2017-04-25] MEDS: AMIODARONE 200 MG TAB GTB SCH (09:51)
[2017-04-25] MEDS: MULTIVITAMINS THERAPEUTIC TAB GTB SCH (09:51)
[2017-04-25] MEDS: AMLODIPINE 5 MG TAB GTB SCH ×2 (09:52→21:58)
[2017-04-25] MEDS: TAMSULOSIN (SR) 0.4 MG CAP PO SCH (09:52)
[2017-04-25] MEDS: METOPROLOL 25 MG TAB PO SCH ×2 (09:52→21:58)
--- NOTE | 2017-04-25 11:52 | PN ---
Date/Time of Note Date/Time of Note DATE: 04/25/17 TIME: 11:51 Assessment/Plan VTE Prophylaxis VTE Prophylaxis Intervention: other Lines/Catheters IV Catheter Type (from [facility], [place]): Saline Lock Urinary Cath still in place: Yes Reason Cath still needed: skin wounds contaminated by urine Assessment/Plan Chief Complaint/Hosp Course - generelized itching- Benadryl- ok now -Sepsis was positive blood cultures. Dr. Tom is following an infection disease consultation. Continue broad-spectrum antibiotics. -Coli UTI. -Severe hypokalemia, resolved -Nausea and vomiting on admission, resolved -Acute kidney injury secondary to dehydration, Dr. Castillo is following in nephrology consultation. Continue IV fluids -Electrolyte imbalances -History of Hirschsprung disease -Ileostomy -Right chest Port-A-Cath Problems: Subjective 24 Hr Interval Summary Free Text/Dictation Patient is confused, unable to interact normally Exam/Review of Systems Vital Signs Vitals Vital Signs Date Time Temp Pulse Resp B/P Pulse Ox O2 Delivery O2 Flow Rate FiO2 04/25/17 08:20 98.1 80 18 130/60 97 04/25/17 06:00 Room Air Intake and Output 04/24/17 04/24/17 04/25/17 14:59 22:59 06:59 Intake Total 720 ml 650 ml Output Total 1200 ml 650 ml Balance -480 ml 0 ml Exam Head: atraumatic, normocephalic Neck: supple Respiratory: diminished breath sounds Cardiovascular: regular rate and rhythm Gastrointestinal: non-tender, soft Extremities: normal pulses Results Result Diagram: 04/25/17 0731 04/25/17 0731 Results 24 hrs Laboratory Tests Test 04/24/17 12:29 04/24/17 17:32 04/24/17 21:19 04/25/17 00:50 Bedside Glucose 183 149 200 142 Test 04/25/17 06:00 04/25/17 07:31 Bedside Glucose 119 White Blood Count 14.0 H Red Blood Count 3.61 L Hemoglobin 9.7 L Hematocrit 29.7 L Mean Corpuscular Volume 82.3 Mean Corpuscular Hemoglobin 26.9 L Mean Corpuscular Hemoglobin Concent 32.7 Red Cell Distribution Width 18.4 H Platelet Count 278 Mean Platelet Volume 12.5 H Neutrophils % 76.2 Lymphocytes % 11.5 L Monocytes % 5.8 Eosinophils % 5.1 Basophils % 0.8 Nucleated Red Blood Cells % 0.0 Neutrophils # (Manual) 10.7 H Lymphocytes # 1.6 Monocytes # 0.8 Eosinophils # 0.7 H Basophils # 0.1 Nucleated Red Blood Cells # 0.0 Sodium Level 134 L Potassium Level 4.1 Chloride Level 104 Carbon Dioxide Level 21 Anion Gap 13 Blood Urea Nitrogen 87 H Creatinine 3.10 H Glucose Level 123 Calcium Level 8.2 L Medications Medications Current Medications Acetaminophen (Tylenol Tab) 650 mg Q6H PRN GTB PAIN AND OR ELEVATED TEMP Last administered on 04/24/17 21:33; Admin Dose 650 MG; Start 04/17/17 at 18:00 Amiodarone HCl (Cordarone) 100 mg DAILY GTB Last administered on 04/25/17 09:51 ; Admin Dose 100 MG; Start 04/18/17 at 09:00 Bisacodyl (Dulcolax Supp) 10 mg Q24H [place] Last administered on 04/24/17 18:13; Admin Dose 10 MG; Start 04/17/17 at 18:00 Diphenhydramine HCl (Benadryl) 25 mg Q6H PRN GTB ITCHING Last administered on 21:33; Admin Dose 25 MG; Start 04/17/17 at 18:00 Hydralazine HCl (Apresoline) 50 mg Q8 PRN GTB ELEVATED BLOOD PRESSURE Last administered on 04/18/17 13:18; Admin Dose 50 MG; Start 04/17/17 at 18:00 Multivitamins Therapeutic (Theragran) 1 tab DAILY GTB Last administered on 09:51; Admin Dose 1 TAB; Start 04/18/17 at 09:00 Tamsulosin HCl 0.4 mg 0.4 mg DAILY PO Last administered on 04/25/17 09:52; Admin Dose 0.4 MG; Start 04/18/17 at 09:00 Sodium Chloride (1/2 NS) 1,000 ml @ 100 mls/hr Q10H IV Last administered on 06:05; Admin Dose 100 MLS/HR; Start 04/17/17 at 18:30 Diagnostic Test (Pha) (Accu-Chek) 1 ea 02 XX Last administered on 04/21/17 02: 33; Admin Dose 1 EA; Start 04/18/17 at 02:00 Miscellaneous Information 1 ea NOTE XX ; Start 04/17/17 at 21:00 Glucose (Glutose) 15 gm Q15M PRN PO DECREASED GLUCOSE; Start 04/17/17 at 21:00 Glucose (Glutose) 22.5 gm Q15M PRN PO DECREASED GLUCOSE; Start 04/17/17 at 21: 00 Dextrose (D50w Syringe) 25 ml Q15M PRN IV DECREASED GLUCOSE Last administered on 04/20/17 17:22; Admin Dose 25 ML; Start 04/17/17 at 21:00 Dextrose (D50w Syringe) 50 ml Q15M PRN IV DECREASED GLUCOSE; Start 04/17/17 at 21:00 Glucagon (Glucagen) 1 mg Q15M PRN IM DECREASED GLUCOSE; Start 04/17/17 at 21:00 Glucose (Glutose) 15 gm Q15M PRN BUCCAL DECREASED GLUCOSE; Start 04/17/17 at 21 :00 Ondansetron HCl (Zofran Inj) 4 mg Q6H PRN IV NAUSEA AND/OR VOMITING; Start at 00:30 Insulin Aspart (Novolog Insulin Pen) (Adult SC Insulin - Mild Algorithm)... Q6 SC Last administered on 04/25/17 00:53; Admin Dose 1 UNIT; Start 04/20/17 at 00 :00 Insulin Glargine (Lantus) 14 unit QHS SC Last administered on 04/24/17 21:35; Admin Dose 14 UNIT; Start 04/20/17 at 21:00 Amlodipine Besylate (Norvasc) 5 mg BID GTB Last administered on 04/25/17 09:52 ; Admin Dose 5 MG; Start 04/21/17 at 21:00 Metronidazole (Flagyl) 500 mg Q8 PO Last administered on 04/25/17 06:01; Admin Dose 500 MG; Start 04/22/17 at 22:00 Metoprolol Tartrate (Lopressor) 25 mg BID PO Last administered on 04/25/17 09: 52; Admin Dose 25 MG; Start 04/23/17 at 09:00 Hydralazine HCl (Apresoline) 25 mg Q8 PO Last administered on 04/25/17 06:02; Admin Dose 25 MG; Start 04/22/17 at 22:00 Hydralazine HCl (Apresoline) 10 mg Q4H PRN IV SBP>170; Start 04/22/17 at 22:00 AURA CALL Apr 25, 2017 11:52
--- NOTE | 2017-04-25 14:10 | CONS ---
Date/Time of Note Date/Time of Note DATE: 04/25/17 TIME: 14:08 Assessment/Plan Assessment/Plan Chief Complaint/Hosp Course 1. CKD, mild 2. Encephalopathy 3. SIRS 4. UTI 5. Dysphagia Problems: Additional Assessment/Plan 1. continue current regime 2. Continue tube feeding Consultation Date/Type/Reason Admit Date/Time Apr 17, 2017 at 16:39 Initial Consult Date 04/18/17 Type of Consultation: nephrology Reason for Consultation Dr Cheema Referring Provider: PORTIA OLIVER MD Exam/Review of Systems Vital Signs Vitals Vital Signs Date Time Temp Pulse Resp B/P Pulse Ox O2 Delivery O2 Flow Rate FiO2 04/25/17 12:09 87 04/25/17 12:09 98.5 18 170/72 96 04/25/17 06:00 Room Air Intake and Output 04/24/17 04/24/17 04/25/17 14:59 22:59 06:59 Intake Total 720 ml 650 ml Output Total 1200 ml 650 ml Balance -480 ml 0 ml Exam Constitutional: alert, oriented (name only) Eyes: nl conjunctiva (yellow) Respiratory: clear to auscultation Cardiovascular: regular rate and rhythm Results Result Diagram: 04/25/17 0731 04/25/17 0731 Results 24 hrs Laboratory Tests Test 04/24/17 17:32 04/24/17 21:19 04/25/17 00:50 04/25/17 06:00 Bedside Glucose 149 200 142 119 Test 04/25/17 07:31 04/25/17 13:13 White Blood Count 14.0 H Red Blood Count 3.61 L Hemoglobin 9.7 L Hematocrit 29.7 L Mean Corpuscular Volume 82.3 Mean Corpuscular Hemoglobin 26.9 L Mean Corpuscular Hemoglobin Concent 32.7 Red Cell Distribution Width 18.4 H Platelet Count 278 Mean Platelet Volume 12.5 H Neutrophils % 76.2 Lymphocytes % 11.5 L Monocytes % 5.8 Eosinophils % 5.1 Basophils % 0.8 Nucleated Red Blood Cells % 0.0 Neutrophils # (Manual) 10.7 H Lymphocytes # 1.6 Monocytes # 0.8 Eosinophils # 0.7 H Basophils # 0.1 Nucleated Red Blood Cells # 0.0 Sodium Level 134 L Potassium Level 4.1 Chloride Level 104 Carbon Dioxide Level 21 Anion Gap 13 Blood Urea Nitrogen 87 H Creatinine 3.10 H Glucose Level 123 Calcium Level 8.2 L Bedside Glucose 173 Medications Medications Current Medications Acetaminophen (Tylenol Tab) 650 mg Q6H PRN GTB PAIN AND OR ELEVATED TEMP Last administered on 04/24/17 21:33; Admin Dose 650 MG; Start 04/17/17 at 18:00 Amiodarone HCl (Cordarone) 100 mg DAILY GTB Last administered on 04/25/17 09:51 ; Admin Dose 100 MG; Start 04/18/17 at 09:00 Bisacodyl (Dulcolax Supp) 10 mg Q24H [place] Last administered on 04/24/17 18:13; Admin Dose 10 MG; Start 04/17/17 at 18:00 Diphenhydramine HCl (Benadryl) 25 mg Q6H PRN GTB ITCHING Last administered on 21:33; Admin Dose 25 MG; Start 04/17/17 at 18:00 Hydralazine HCl (Apresoline) 50 mg Q8 PRN GTB ELEVATED BLOOD PRESSURE Last administered on 04/18/17 13:18; Admin Dose 50 MG; Start 04/17/17 at 18:00 Multivitamins Therapeutic (Theragran) 1 tab DAILY GTB Last administered on 09:51; Admin Dose 1 TAB; Start 04/18/17 at 09:00 Tamsulosin HCl 0.4 mg 0.4 mg DAILY PO Last administered on 04/25/17 09:52; Admin Dose 0.4 MG; Start 04/18/17 at 09:00 Sodium Chloride (1/2 NS) 1,000 ml @ 100 mls/hr Q10H IV Last administered on 06:05; Admin Dose 100 MLS/HR; Start 04/17/17 at 18:30 Diagnostic Test (Pha) (Accu-Chek) 1 ea 02 XX Last administered on 04/21/17 02: 33; Admin Dose 1 EA; Start 04/18/17 at 02:00 Miscellaneous Information 1 ea NOTE XX ; Start 04/17/17 at 21:00 Glucose (Glutose) 15 gm Q15M PRN PO DECREASED GLUCOSE; Start 04/17/17 at 21:00 Glucose (Glutose) 22.5 gm Q15M PRN PO DECREASED GLUCOSE; Start 04/17/17 at 21: 00 Dextrose (D50w Syringe) 25 ml Q15M PRN IV DECREASED GLUCOSE Last administered on 04/20/17 17:22; Admin Dose 25 ML; Start 04/17/17 at 21:00 Dextrose (D50w Syringe) 50 ml Q15M PRN IV DECREASED GLUCOSE; Start 04/17/17 at 21:00 Glucagon (Glucagen) 1 mg Q15M PRN IM DECREASED GLUCOSE; Start 04/17/17 at 21:00 Glucose (Glutose) 15 gm Q15M PRN BUCCAL DECREASED GLUCOSE; Start 04/17/17 at 21 :00 Ondansetron HCl (Zofran Inj) 4 mg Q6H PRN IV NAUSEA AND/OR VOMITING; Start at 00:30 Insulin Aspart (Novolog Insulin Pen) (Adult SC Insulin - Mild Algorithm)... Q6 SC Last administered on 04/25/17 00:53; Admin Dose 1 UNIT; Start 04/20/17 at 00 :00 Insulin Glargine (Lantus) 14 unit QHS SC Last administered on 04/24/17 21:35; Admin Dose 14 UNIT; Start 04/20/17 at 21:00 Amlodipine Besylate (Norvasc) 5 mg BID GTB Last administered on 04/25/17 09:52 ; Admin Dose 5 MG; Start 04/21/17 at 21:00 Metronidazole (Flagyl) 500 mg Q8 PO Last administered on 04/25/17 06:01; Admin Dose 500 MG; Start 04/22/17 at 22:00 Metoprolol Tartrate (Lopressor) 25 mg BID PO Last administered on 04/25/17 09: 52; Admin Dose 25 MG; Start 04/23/17 at 09:00 Hydralazine HCl (Apresoline) 25 mg Q8 PO Last administered on 04/25/17 06:02; Admin Dose 25 MG; Start 04/22/17 at 22:00 Hydralazine HCl (Apresoline) 10 mg Q4H PRN IV SBP>170; Start 04/22/17 at 22:00 CHELSIE HERNÁNDEZ Apr 25, 2017 14:10
--- NOTE | 2017-04-25 14:41 | CONS ---
Date/Time of Note Date/Time of Note DATE: 04/25/17 TIME: 14:38 Assessment/Plan Assessment/Plan Chief Complaint/Hosp Course ID PROGRESS NOTE ABX DAY #7 => + Flagyl #3 s/p Cefepime #6 -> DC 04/24/17 s/p Vanco IV 04/17-04/08 24H INTERVAL SUMMARY * Chronic encephalopathy, frail, debilitated, moves extremities, lethargic, no fevers, VSS, NAD PHYSICAL EXAMINATION: GENERAL: Thin appearing debilitated M, calm, looks comfortable HEENT: Unremarkable NECK: Trach-> midline CHEST: Equal chest rise bilaterally, without dyspnea on observation ABDOMEN: Soft, peg EXTREMITIES: Warm, SKIN: Warm, dry ID ASSESSMENT: 71 yo M w/PMHx CVA w/LE weakness, dementia, dysphagia admitted with: 1. Persistent leukocytosis, rule out aspiration event, rule out * Clostridium difficile colitis diarrhea => resolving * Blood and urine cultures 04/22 (-) * CXR 04/22 (-) 2. GNR Urinary tract infection=> urine culture on admission grew Escherichia coli. 3. Dysphagia, status post PEG. 4. s/p recent Aspiration PNA w/residual bronchiolitis recent admission MAR 2017 => Resolved 5. Encephalopathy. 6. Acute on chronic kidney disease. 7. HTN 8. DMII 9. Afib 10. 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 Neurogenic bladder with retention 13. Sacral decub II, heel decub 14. Hx of hip surgery INVASIVES: Flores, PEG. PIV ABX ALLERGIES: NKDA CURRENT ABX: ABX DAY #7 => + Flagyl #3 s/p Cefepime x#6 -> DC 04/24/17 s/p Vanco IV 04/17-04/08 ID RECOMMENDATIONS: 1. Monitor off Cefepime -> he has hx of yeast UTI, limit ABX to avoid MDRO 2. Continue Flagyl 2. ASP Precautions 3. ID team will follow Problems: Consultation Date/Type/Reason Admit Date/Time Apr 17, 2017 at 16:39 Initial Consult Date 04/18/17 Type of Consultation: ID Referring Provider: PORTIA OLIVER MD Exam/Review of Systems Vital Signs Vitals Vital Signs Date Time Temp Pulse Resp B/P Pulse Ox O2 Delivery O2 Flow Rate FiO2 04/25/17 12:09 87 04/25/17 12:09 98.5 18 170/72 96 04/25/17 06:00 Room Air Intake and Output 04/24/17 04/24/17 04/25/17 15:00 23:00 07:00 Intake Total 720 ml 650 ml Output Total 1200 ml 650 ml Balance -480 ml 0 ml Results Result Diagram: 04/25/17 0731 04/25/17 0731 Results 24 hrs Laboratory Tests Test 04/24/17 17:32 04/24/17 21:19 04/25/17 00:50 04/25/17 06:00 Bedside Glucose 149 200 142 119 Test 04/25/17 07:31 04/25/17 13:13 White Blood Count 14.0 H Red Blood Count 3.61 L Hemoglobin 9.7 L Hematocrit 29.7 L Mean Corpuscular Volume 82.3 Mean Corpuscular Hemoglobin 26.9 L Mean Corpuscular Hemoglobin Concent 32.7 Red Cell Distribution Width 18.4 H Platelet Count 278 Mean Platelet Volume 12.5 H Neutrophils % 76.2 Lymphocytes % 11.5 L Monocytes % 5.8 Eosinophils % 5.1 Basophils % 0.8 Nucleated Red Blood Cells % 0.0 Neutrophils # (Manual) 10.7 H Lymphocytes # 1.6 Monocytes # 0.8 Eosinophils # 0.7 H Basophils # 0.1 Nucleated Red Blood Cells # 0.0 Sodium Level 134 L Potassium Level 4.1 Chloride Level 104 Carbon Dioxide Level 21 Anion Gap 13 Blood Urea Nitrogen 87 H Creatinine 3.10 H Glucose Level 123 Calcium Level 8.2 L Bedside Glucose 173 Medications Medications Current Medications Acetaminophen (Tylenol Tab) 650 mg Q6H PRN GTB PAIN AND OR ELEVATED TEMP Last administered on 04/24/17 21:33; Admin Dose 650 MG; Start 04/17/17 at 18:00 Amiodarone HCl (Cordarone) 100 mg DAILY GTB Last administered on 04/25/17 09:51 ; Admin Dose 100 MG; Start 04/18/17 at 09:00 Bisacodyl (Dulcolax Supp) 10 mg Q24H [place] Last administered on 04/24/17 18:13; Admin Dose 10 MG; Start 04/17/17 at 18:00 Diphenhydramine HCl (Benadryl) 25 mg Q6H PRN GTB ITCHING Last administered on 21:33; Admin Dose 25 MG; Start 04/17/17 at 18:00 Hydralazine HCl (Apresoline) 50 mg Q8 PRN GTB ELEVATED BLOOD PRESSURE Last administered on 04/18/17 13:18; Admin Dose 50 MG; Start 04/17/17 at 18:00 Multivitamins Therapeutic (Theragran) 1 tab DAILY GTB Last administered on 09:51; Admin Dose 1 TAB; Start 04/18/17 at 09:00 Tamsulosin HCl 0.4 mg 0.4 mg DAILY PO Last administered on 04/25/17 09:52; Admin Dose 0.4 MG; Start 04/18/17 at 09:00 Sodium Chloride (1/2 NS) 1,000 ml @ 100 mls/hr Q10H IV Last administered on 06:05; Admin Dose 100 MLS/HR; Start 04/17/17 at 18:30 Diagnostic Test (Pha) (Accu-Chek) 1 ea 02 XX Last administered on 04/21/17 02: 33; Admin Dose 1 EA; Start 04/18/17 at 02:00 Miscellaneous Information 1 ea NOTE XX ; Start 04/17/17 at 21:00 Glucose (Glutose) 15 gm Q15M PRN PO DECREASED GLUCOSE; Start 04/17/17 at 21:00 Glucose (Glutose) 22.5 gm Q15M PRN PO DECREASED GLUCOSE; Start 04/17/17 at 21: 00 Dextrose (D50w Syringe) 25 ml Q15M PRN IV DECREASED GLUCOSE Last administered on 04/20/17 17:22; Admin Dose 25 ML; Start 04/17/17 at 21:00 Dextrose (D50w Syringe) 50 ml Q15M PRN IV DECREASED GLUCOSE; Start 04/17/17 at 21:00 Glucagon (Glucagen) 1 mg Q15M PRN IM DECREASED GLUCOSE; Start 04/17/17 at 21:00 Glucose (Glutose) 15 gm Q15M PRN BUCCAL DECREASED GLUCOSE; Start 04/17/17 at 21 :00 Ondansetron HCl (Zofran Inj) 4 mg Q6H PRN IV NAUSEA AND/OR VOMITING; Start at 00:30 Insulin Aspart (Novolog Insulin Pen) (Adult SC Insulin - Mild Algorithm)... Q6 SC Last administered on 04/25/17 00:53; Admin Dose 1 UNIT; Start 04/20/17 at 00 :00 Insulin Glargine (Lantus) 14 unit QHS SC Last administered on 04/24/17 21:35; Admin Dose 14 UNIT; Start 04/20/17 at 21:00 Amlodipine Besylate (Norvasc) 5 mg BID GTB Last administered on 04/25/17 09:52 ; Admin Dose 5 MG; Start 04/21/17 at 21:00 Metronidazole (Flagyl) 500 mg Q8 PO Last administered on 04/25/17 06:01; Admin Dose 500 MG; Start 04/22/17 at 22:00 Metoprolol Tartrate (Lopressor) 25 mg BID PO Last administered on 04/25/17 09: 52; Admin Dose 25 MG; Start 04/23/17 at 09:00 Hydralazine HCl (Apresoline) 25 mg Q8 PO Last administered on 04/25/17 06:02; Admin Dose 25 MG; Start 04/22/17 at 22:00 Hydralazine HCl (Apresoline) 10 mg Q4H PRN IV SBP>170; Start 04/22/17 at 22:00 ANNE-MARIE PRAKASH NP Apr 25, 2017 14:41
[2017-04-25] MEDS: BISACODYL 10 MG SUPP PR SCH (18:09)
[2017-04-25] MEDS: INSULIN GLARGINE [LANtus] 3 ML PEN SC SCH (22:07)
[2017-04-26] VITALS (16 sets, daily range): BP systolic 101–138; BP diastolic 53–102; PULSE 68–84; RESP 16–20
[2017-04-26] MEDS: SOD CHLORIDE 0.45% 1,000 ML IV SCH ×3 (02:20→22:30)
[2017-04-26] MEDS: ACCU-CHEK XX SCH (02:20)
[2017-04-26] MEDS: DEXTROSE 5%-0.45% NACL 1,000 ML IV SCH (04:33)
[2017-04-26] MEDS: Insulin NOVOLOG SS MILD Algorithm (NPO/TPN/ENTERAL FEEDS) SC SCH ×3 (06:00→18:00)
[2017-04-26] MEDS: metroNIDAZOLE 500 MG TAB PO SCH ×3 (06:33→21:25)
--- NOTE | 2017-04-26 08:32 | CONS ---
Date/Time of Note Date/Time of Note DATE: 04/26/17 TIME: 08:25 Assessment/Plan Assessment/Plan Chief Complaint/Hosp Course 72 y/o with 1.BISI on CKD with baseline Cr 2.48 > improving ( elevated BUN/Cr ratio consistent with prerenal) with iv fluids likely pre renal due to dehydration.Renal U./S negative for hydronephrosis 2.Hypernatremia >improving 3.HTN uncontrolled > increased to norvasc 5 bid 4 Ecoli UTI on > Flagyl 5 Sepsis due to #4 6 Chronic Afib 7 CVA s/p G tube placement 8 Renal cyst 9 Hyperphos due to reduced renal clearence 10 Leukocytosis> work up per ID Recs - on D51/2 NS at 50 cc/hr due to no TF - FWF 100 q 4 - cw Norvasc 5 bid/MTP 25 bid and Hydralzine 25 q8 - Repeat labs - Renal U/S negative for hydronephrosis - Kayexalate prn - Will not give Phos binder now as Renal function improving - c/w Flores Problems: Consultation Date/Type/Reason Admit Date/Time Apr 17, 2017 at 16:39 Initial Consult Date 04/18/17 Type of Consultation: Nephrology Referring Provider: PORTIA OLIVER MD 24 HR Interval Summary Free Text/Dictation Tube feeding with high residuals, pending KUB Pt comfortable today Exam/Review of Systems Vital Signs Vitals Vital Signs Date Time Temp Pulse Resp B/P Pulse Ox O2 Delivery O2 Flow Rate FiO2 04/26/17 08:08 74 04/26/17 08:00 98.5 20 123/60 98 04/25/17 14:00 Room Air Intake and Output 04/25/17 04/25/17 04/26/17 14:59 22:59 06:59 Intake Total 720 ml 200 ml Output Total 700 ml 850 ml Balance 20 ml -650 ml Exam General: Well developed, HEENT: Normocephalic, Atraumatic, No laceration or hematoma; Cardiac: S1, S2 auscultated, irregular irregular , no mumurs or gallop Pulmonary: . Chest clear to auscultation bilaterally, no adventitious breath sounds GI: G tube. Bowel sounds active on all four quadrants Extremities: No cyanosis, clubbing, or edema. Neurologic: Alert Results Result Diagram: 04/25/17 0731 04/25/17 0731 Results 24 hrs Laboratory Tests Test 04/25/17 13:13 04/25/17 18:13 04/25/17 22:02 04/26/17 02:13 Bedside Glucose 173 127 161 96 Test 04/26/17 03:40 04/26/17 06:30 Bedside Glucose 82 89 Medications Medications Current Medications Acetaminophen (Tylenol Tab) 650 mg Q6H PRN GTB PAIN AND OR ELEVATED TEMP Last administered on 04/24/17 21:33; Admin Dose 650 MG; Start 04/17/17 at 18:00 Amiodarone HCl (Cordarone) 100 mg DAILY GTB Last administered on 04/25/17 09:51 ; Admin Dose 100 MG; Start 04/18/17 at 09:00 Bisacodyl (Dulcolax Supp) 10 mg Q24H [place] Last administered on 04/25/17 18:09; Admin Dose 10 MG; Start 04/17/17 at 18:00 Diphenhydramine HCl (Benadryl) 25 mg Q6H PRN GTB ITCHING Last administered on 21:33; Admin Dose 25 MG; Start 04/17/17 at 18:00 Hydralazine HCl (Apresoline) 50 mg Q8 PRN GTB ELEVATED BLOOD PRESSURE Last administered on 04/18/17 13:18; Admin Dose 50 MG; Start 04/17/17 at 18:00 Multivitamins Therapeutic (Theragran) 1 tab DAILY GTB Last administered on 09:51; Admin Dose 1 TAB; Start 04/18/17 at 09:00 Tamsulosin HCl 0.4 mg 0.4 mg DAILY PO Last administered on 04/25/17 09:52; Admin Dose 0.4 MG; Start 04/18/17 at 09:00 Sodium Chloride (1/2 NS) 1,000 ml @ 100 mls/hr Q10H IV Last administered on 02:20; Admin Dose 100 MLS/HR; Start 04/17/17 at 18:30 Diagnostic Test (Pha) (Accu-Chek) 1 ea 02 XX Last administered on 04/26/17 02: 20; Admin Dose 1 EA; Start 04/18/17 at 02:00 Miscellaneous Information 1 ea NOTE XX ; Start 04/17/17 at 21:00 Glucose (Glutose) 15 gm Q15M PRN PO DECREASED GLUCOSE; Start 04/17/17 at 21:00 Glucose (Glutose) 22.5 gm Q15M PRN PO DECREASED GLUCOSE; Start 04/17/17 at 21: 00 Dextrose (D50w Syringe) 25 ml Q15M PRN IV DECREASED GLUCOSE Last administered on 04/20/17 17:22; Admin Dose 25 ML; Start 04/17/17 at 21:00 Dextrose (D50w Syringe) 50 ml Q15M PRN IV DECREASED GLUCOSE; Start 04/17/17 at 21:00 Glucagon (Glucagen) 1 mg Q15M PRN IM DECREASED GLUCOSE; Start 04/17/17 at 21:00 Glucose (Glutose) 15 gm Q15M PRN BUCCAL DECREASED GLUCOSE; Start 04/17/17 at 21 :00 Ondansetron HCl (Zofran Inj) 4 mg Q6H PRN IV NAUSEA AND/OR VOMITING; Start at 00:30 Insulin Aspart (Novolog Insulin Pen) (Adult SC Insulin - Mild Algorithm)... Q6 SC Last administered on 04/25/17 22:08; Admin Dose 1 UNIT; Start 04/20/17 at 00 :00 Insulin Glargine (Lantus) 14 unit QHS SC Last administered on 04/25/17 22:07; Admin Dose 14 UNIT; Start 04/20/17 at 21:00 Amlodipine Besylate (Norvasc) 5 mg BID GTB Last administered on 04/25/17 21:58 ; Admin Dose 5 MG; Start 04/21/17 at 21:00 Metronidazole (Flagyl) 500 mg Q8 PO Last administered on 04/26/17 06:33; Admin Dose 500 MG; Start 04/22/17 at 22:00 Metoprolol Tartrate (Lopressor) 25 mg BID PO Last administered on 04/25/17 21: 58; Admin Dose 25 MG; Start 04/23/17 at 09:00 Hydralazine HCl (Apresoline) 25 mg Q8 PO Last administered on 04/26/17 06:37; Admin Dose 25 MG; Start 04/22/17 at 22:00 Hydralazine HCl 10 mg 10 mg Q4H PRN IV SBP>170; Start 04/22/17 at 22:00 Dextrose/Sodium Chloride (D5-1/2ns) 1,000 ml @ 50 mls/hr Q20H IV Last administered on 04/26/17 04:33; Admin Dose 50 MLS/HR; Start 04/26/17 at 04:30 PORTIA OLIVER MD Apr 26, 2017 08:32
[2017-04-26] MEDS: METOPROLOL 25 MG TAB PO SCH ×2 (09:50→21:19)
[2017-04-26] MEDS: AMIODARONE 200 MG TAB GTB SCH (09:50)
[2017-04-26] MEDS: TAMSULOSIN (SR) 0.4 MG CAP PO SCH (09:50)
[2017-04-26] MEDS: MULTIVITAMINS THERAPEUTIC TAB GTB SCH (09:50)
[2017-04-26] MEDS: AMLODIPINE 5 MG TAB GTB SCH ×2 (09:50→21:00)
--- NOTE | 2017-04-26 11:32 | PN ---
Date/Time of Note Date/Time of Note DATE: 04/26/17 TIME: 11:32 Assessment/Plan VTE Prophylaxis VTE Prophylaxis Intervention: other Lines/Catheters IV Catheter Type (from Nrs): Saline Lock Urinary Cath still in place: Yes Reason Cath still needed: skin wounds contaminated by urine Assessment/Plan Chief Complaint/Hosp Course - generelized itching- Benadryl- ok now -Sepsis was positive blood cultures. Dr. Tom is following an infection disease consultation. Continue broad-spectrum antibiotics. -Coli UTI. -Severe hypokalemia, resolved -Nausea and vomiting on admission, resolved -Acute kidney injury secondary to dehydration, Dr. Castillo is following in nephrology consultation. Continue IV fluids -Electrolyte imbalances -History of Hirschsprung disease -Ileostomy -Right chest Port-A-Cath Problems: Subjective 24 Hr Interval Summary Free Text/Dictation Patient remains confused Exam/Review of Systems Vital Signs Vitals Vital Signs Date Time Temp Pulse Resp B/P Pulse Ox O2 Delivery O2 Flow Rate FiO2 04/26/17 08:08 74 04/26/17 08:00 98.5 20 123/60 98 04/25/17 14:00 Room Air Intake and Output 04/25/17 04/25/17 04/26/17 15:00 23:00 07:00 Intake Total 720 ml 200 ml Output Total 700 ml 850 ml Balance 20 ml -650 ml Exam Constitutional: well developed Head: atraumatic, normocephalic Neck: supple Respiratory: clear to auscultation Cardiovascular: regular rate and rhythm Gastrointestinal: non-tender, soft Results Result Diagram: 04/25/17 0731 04/25/17 0731 Results 24 hrs Laboratory Tests Test 04/25/17 13:13 04/25/17 18:13 04/25/17 22:02 04/26/17 02:13 Bedside Glucose 173 127 161 96 Test 04/26/17 03:40 04/26/17 06:30 Bedside Glucose 82 89 Medications Medications Current Medications Acetaminophen (Tylenol Tab) 650 mg Q6H PRN GTB PAIN AND OR ELEVATED TEMP Last administered on 04/24/17 21:33; Admin Dose 650 MG; Start 04/17/17 at 18:00 Amiodarone HCl (Cordarone) 100 mg DAILY GTB Last administered on 04/26/17 09:50 ; Admin Dose 100 MG; Start 04/18/17 at 09:00 Bisacodyl (Dulcolax Supp) 10 mg Q24H [place] Last administered on 04/25/17 18:09; Admin Dose 10 MG; Start 04/17/17 at 18:00 Diphenhydramine HCl (Benadryl) 25 mg Q6H PRN GTB ITCHING Last administered on 21:33; Admin Dose 25 MG; Start 04/17/17 at 18:00 Hydralazine HCl (Apresoline) 50 mg Q8 PRN GTB ELEVATED BLOOD PRESSURE Last administered on 04/18/17 13:18; Admin Dose 50 MG; Start 04/17/17 at 18:00 Multivitamins Therapeutic (Theragran) 1 tab DAILY GTB Last administered on 09:50; Admin Dose 1 TAB; Start 04/18/17 at 09:00 Tamsulosin HCl 0.4 mg 0.4 mg DAILY PO Last administered on 04/26/17 09:50; Admin Dose 0.4 MG; Start 04/18/17 at 09:00 Sodium Chloride (1/2 NS) 1,000 ml @ 100 mls/hr Q10H IV Last administered on 02:20; Admin Dose 100 MLS/HR; Start 04/17/17 at 18:30 Diagnostic Test (Pha) (Accu-Chek) 1 ea 02 XX Last administered on 04/26/17 02: 20; Admin Dose 1 EA; Start 04/18/17 at 02:00 Miscellaneous Information 1 ea NOTE XX ; Start 04/17/17 at 21:00 Glucose (Glutose) 15 gm Q15M PRN PO DECREASED GLUCOSE; Start 04/17/17 at 21:00 Glucose (Glutose) 22.5 gm Q15M PRN PO DECREASED GLUCOSE; Start 04/17/17 at 21: 00 Dextrose (D50w Syringe) 25 ml Q15M PRN IV DECREASED GLUCOSE Last administered on 04/20/17 17:22; Admin Dose 25 ML; Start 04/17/17 at 21:00 Dextrose (D50w Syringe) 50 ml Q15M PRN IV DECREASED GLUCOSE; Start 04/17/17 at 21:00 Glucagon (Glucagen) 1 mg Q15M PRN IM DECREASED GLUCOSE; Start 04/17/17 at 21:00 Glucose (Glutose) 15 gm Q15M PRN BUCCAL DECREASED GLUCOSE; Start 04/17/17 at 21 :00 Ondansetron HCl (Zofran Inj) 4 mg Q6H PRN IV NAUSEA AND/OR VOMITING; Start at 00:30 Insulin Aspart (Novolog Insulin Pen) (Adult SC Insulin - Mild Algorithm)... Q6 SC Last administered on 04/25/17 22:08; Admin Dose 1 UNIT; Start 04/20/17 at 00 :00 Insulin Glargine (Lantus) 14 unit QHS SC Last administered on 04/25/17 22:07; Admin Dose 14 UNIT; Start 04/20/17 at 21:00 Amlodipine Besylate (Norvasc) 5 mg BID GTB Last administered on 04/26/17 09:50 ; Admin Dose 5 MG; Start 04/21/17 at 21:00 Metronidazole (Flagyl) 500 mg Q8 PO Last administered on 04/26/17 06:33; Admin Dose 500 MG; Start 04/22/17 at 22:00 Metoprolol Tartrate (Lopressor) 25 mg BID PO Last administered on 04/26/17 09: 50; Admin Dose 25 MG; Start 04/23/17 at 09:00 Hydralazine HCl (Apresoline) 25 mg Q8 PO Last administered on 04/26/17 06:37; Admin Dose 25 MG; Start 04/22/17 at 22:00 Hydralazine HCl 10 mg 10 mg Q4H PRN IV SBP>170; Start 04/22/17 at 22:00 Dextrose/Sodium Chloride (D5-1/2ns) 1,000 ml @ 50 mls/hr Q20H IV Last administered on 04/26/17 04:33; Admin Dose 50 MLS/HR; Start 04/26/17 at 04:30 AURA CALL Apr 26, 2017 11:32
[2017-04-26] MEDS: ACETAMINOPHEN 325 MG TAB GTB PRN (14:25)
--- NOTE | 2017-04-26 14:54 | RADRPT ---
PROCEDURE: XR Abdomen 1 View. CLINICAL INDICATION: Abdominal pain and distension. TECHNIQUE: AP abdomen x-ray. COMPARISON: None. FINDINGS: Gastrostomy tube has its distal end over the expected location of the stomach. Scattered air and st ool are noted in the colon. No dilated loops of small bowel are observed. No organomegaly is identi fied. No abnormal calculi are observed. Degenerative changes are seen in the hips and spine. IMPRESSION: Nonspecific bowel gas pattern. If further characterization of the abdomen is needed CT should be considered. RPTAT: AA .Lance Barcenas MD, MD Date Time Electronically viewed and signed by .Lance Barcenas MD, MD on 04/26/2017 14:54 .P/
[2017-04-26] MEDS: BISACODYL 10 MG SUPP PR SCH (18:52)
--- NOTE | 2017-04-26 20:06 | CONS ---
Date/Time of Note Date/Time of Note DATE: 04/26/17 TIME: 20:01 Assessment/Plan Assessment/Plan Chief Complaint/Hosp Course ID PROGRESS NOTE ABX DAY #7 => + Flagyl #4 s/p Cefepime #6 -> DC 04/24/17 s/p Vanco IV 04/17-04/08 24H INTERVAL SUMMARY * Clinically status quo -- no new issues -- chronic encephalopathy, frail, debilitated, moves extremities, lethargic, no fevers, VSS, NAD * Stable OFF Cefepime PHYSICAL EXAMINATION: GENERAL: Thin appearing debilitated M, calm, looks comfortable HEENT: Unremarkable NECK: Trach-> midline CHEST: Equal chest rise bilaterally, without dyspnea on observation ABDOMEN: Soft, peg EXTREMITIES: Warm, SKIN: Warm, dry ID ASSESSMENT: 71 yo M w/PMHx CVA w/LE weakness, dementia, dysphagia admitted with: 1. Persistent leukocytosis -- post ABX = likely due to ABX associated diarrhea * Blood and urine cultures 04/22 (-) * CXR 04/22 (-) 2. Clostridium difficile colitis diarrhea => resolving 3. GNR Urinary tract infection=> urine culture on admission grew Escherichia coli. 4. Dysphagia, status post PEG. * s/p recent Aspiration PNA w/residual bronchiolitis recent admission MAR 2017 = > Resolved 5. Encephalopathy. 6. Acute on chronic kidney disease. 7. HTN 8. DMII 9. Afib 10. 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 Neurogenic bladder with retention 13. Sacral decub II, heel decub 14. Hx of hip surgery 15. Pruritis -- resolved w/Benadryl INVASIVES: Flores, PEG. PIV ABX ALLERGIES: NKDA CURRENT ABX: ABX DAY #8 => + Flagyl #4 s/p Cefepime x#6 -> DC 04/24/17 s/p Vanco IV 04/17-04/08 ID RECOMMENDATIONS: 1. No evidence of full blown PNA -- stable post 6 days ABX for aspiration pneumonitis concern 2. Continue Flagyl == ABX associated diarrhea 2. ASP Precautions 3. ID team will follow Problems: Consultation Date/Type/Reason Admit Date/Time Apr 17, 2017 at 16:39 Initial Consult Date 04/18/17 Type of Consultation: ID Referring Provider: PORTIA OLIVER MD Exam/Review of Systems Vital Signs Vitals Vital Signs Date Time Temp Pulse Resp B/P Pulse Ox O2 Delivery O2 Flow Rate FiO2 04/26/17 19:51 98.2 85 20 138/102 98 04/25/17 14:00 Room Air Intake and Output 04/25/17 04/25/17 04/26/17 15:00 23:00 07:00 Intake Total 720 ml 200 ml Output Total 700 ml 850 ml Balance 20 ml -650 ml Results Result Diagram: 04/25/1731 04/25/17 0731 Results 24 hrs Laboratory Tests Test 04/25/17 22:02 04/26/17 02:13 04/26/17 03:40 04/26/17 06:30 Bedside Glucose 161 96 82 89 Test 04/26/17 12:26 04/26/17 18:09 Bedside Glucose 90 119 Medications Medications Current Medications Acetaminophen (Tylenol Tab) 650 mg Q6H PRN GTB PAIN AND OR ELEVATED TEMP Last administered on 04/26/17 14:25; Admin Dose 650 MG; Start 04/17/17 at 18:00 Amiodarone HCl (Cordarone) 100 mg DAILY GTB Last administered on 04/26/17 09:50 ; Admin Dose 100 MG; Start 04/18/17 at 09:00 Bisacodyl (Dulcolax Supp) 10 mg Q24H [place] Last administered on 04/26/17 18:52; Admin Dose 10 MG; Start 04/17/17 at 18:00 Diphenhydramine HCl (Benadryl) 25 mg Q6H PRN GTB ITCHING Last administered on 21:33; Admin Dose 25 MG; Start 04/17/17 at 18:00 Hydralazine HCl (Apresoline) 50 mg Q8 PRN GTB ELEVATED BLOOD PRESSURE Last administered on 04/18/17 13:18; Admin Dose 50 MG; Start 04/17/17 at 18:00 Multivitamins Therapeutic (Theragran) 1 tab DAILY GTB Last administered on 09:50; Admin Dose 1 TAB; Start 04/18/17 at 09:00 Tamsulosin HCl 0.4 mg 0.4 mg DAILY PO Last administered on 04/26/17 09:50; Admin Dose 0.4 MG; Start 04/18/17 at 09:00 Sodium Chloride (1/2 NS) 1,000 ml @ 100 mls/hr Q10H IV Last administered on 02:20; Admin Dose 100 MLS/HR; Start 04/17/17 at 18:30 Diagnostic Test (Pha) (Accu-Chek) 1 ea 02 XX Last administered on 04/26/17 02: 20; Admin Dose 1 EA; Start 04/18/17 at 02:00 Miscellaneous Information 1 ea NOTE XX ; Start 04/17/17 at 21:00 Glucose (Glutose) 15 gm Q15M PRN PO DECREASED GLUCOSE; Start 04/17/17 at 21:00 Glucose (Glutose) 22.5 gm Q15M PRN PO DECREASED GLUCOSE; Start 04/17/17 at 21: 00 Dextrose (D50w Syringe) 25 ml Q15M PRN IV DECREASED GLUCOSE Last administered on 04/20/17 17:22; Admin Dose 25 ML; Start 04/17/17 at 21:00 Dextrose (D50w Syringe) 50 ml Q15M PRN IV DECREASED GLUCOSE; Start 04/17/17 at 21:00 Glucagon (Glucagen) 1 mg Q15M PRN IM DECREASED GLUCOSE; Start 04/17/17 at 21:00 Glucose (Glutose) 15 gm Q15M PRN BUCCAL DECREASED GLUCOSE; Start 04/17/17 at 21 :00 Ondansetron HCl (Zofran Inj) 4 mg Q6H PRN IV NAUSEA AND/OR VOMITING; Start at 00:30 Insulin Aspart (Novolog Insulin Pen) (Adult SC Insulin - Mild Algorithm)... Q6 SC Last administered on 04/25/17 22:08; Admin Dose 1 UNIT; Start 04/20/17 at 00 :00 Insulin Glargine (Lantus) 14 unit QHS SC Last administered on 04/25/17 22:07; Admin Dose 14 UNIT; Start 04/20/17 at 21:00 Amlodipine Besylate (Norvasc) 5 mg BID GTB Last administered on 04/26/17 09:50 ; Admin Dose 5 MG; Start 04/21/17 at 21:00 Metronidazole (Flagyl) 500 mg Q8 PO Last administered on 04/26/17 14:26; Admin Dose 500 MG; Start 04/22/17 at 22:00 Metoprolol Tartrate (Lopressor) 25 mg BID PO Last administered on 04/26/17 09: 50; Admin Dose 25 MG; Start 04/23/17 at 09:00 Hydralazine HCl (Apresoline) 25 mg Q8 PO Last administered on 04/26/17 14:26; Admin Dose 25 MG; Start 04/22/17 at 22:00 Hydralazine HCl 10 mg 10 mg Q4H PRN IV SBP>170; Start 04/22/17 at 22:00 Dextrose/Sodium Chloride (D5-1/2ns) 1,000 ml @ 50 mls/hr Q20H IV Last administered on 04/26/17 04:33; Admin Dose 50 MLS/HR; Start 04/26/17 at 04:30 ANNE-MARIE PRAKASH NP Apr 26, 2017 20:06
[2017-04-26] MEDS: INSULIN GLARGINE [LANtus] 3 ML PEN SC SCH (21:23)
[2017-04-27] VITALS (14 sets, daily range): BP systolic 102–136; BP diastolic 40–90; PULSE 40–76; RESP 18–65
[2017-04-27] MEDS: DEXTROSE 5%-0.45% NACL 1,000 ML IV SCH ×2 (01:22→16:41)
[2017-04-27] MEDS: ACCU-CHEK XX SCH (02:00)
[2017-04-27] MEDS: Insulin NOVOLOG SS MILD Algorithm (NPO/TPN/ENTERAL FEEDS) SC SCH ×4 (06:00→17:09)
[2017-04-27] MEDS: metroNIDAZOLE 500 MG TAB PO SCH ×3 (06:14→21:57)
[2017-04-27] MEDS: SOD CHLORIDE 0.45% 1,000 ML IV SCH (06:35)
[2017-04-27 07:40] LABS: BASOPHIL # 0.1 10^3/ul (0.0-0.1); BASOPHILS % 0.6 % (0.0-2.0); EOSINOPHILS # 0.3 10^3/ul (0.0-0.5); EOSINOPHILS % 2.2 % (0.0-7.0); HEMATOCRIT 26.2 % (42.0-52.0); HEMOGLOBIN 8.3 g/dl (14.0-18.0); LYMPHOCYTES # 1.6 10^3/ul (0.8-2.9); LYMPHOCYTES % 11.6 % (15.0-51.0); MEAN CORPUSCULAR HEMOGLOBIN 25.9 pg (29.0-33.0); MEAN CORPUSCULAR HGB CONC 31.7 g/dl (32.0-37.0); MEAN CORPUSCULAR VOLUME 81.9 fl (82.0-101.0); MONOCYTE # 0.8 10^3/ul (0.3-0.9); MONOCYTES % 6.1 % (0.0-11.0); PLATELET COUNT 249 10^3/UL (140-415); RED CELL DISTRIBUTION WIDTH 19.5 % (11.5-14.5); WHITE BLOOD COUNT 13.4 10^3/ul (4.8-10.8)
[2017-04-27 08:15] LABS: CALCIUM 7.9 mg/dl (8.4-10.2); CREATININE 2.9 mg/dl (0.61-1.24); POTASSIUM 3.6 mmol/L (3.5-5.1)
[2017-04-27] MEDS: MULTIVITAMINS THERAPEUTIC TAB GTB SCH (08:56)
[2017-04-27] MEDS: AMLODIPINE 5 MG TAB GTB SCH ×2 (08:57→22:00)
[2017-04-27] MEDS: AMIODARONE 200 MG TAB GTB SCH (08:57)
[2017-04-27] MEDS: TAMSULOSIN (SR) 0.4 MG CAP PO SCH (08:57)
[2017-04-27] MEDS: METOPROLOL 25 MG TAB PO SCH ×2 (08:57→21:57)
--- NOTE | 2017-04-27 10:35 | PN ---
Date/Time of Note Date/Time of Note DATE: 04/27/17 TIME: 10:32 Assessment/Plan Lines/Catheters IV Catheter Type (from Nrs): Saline Lock Urinary Cath still in place: Yes Assessment/Plan Assessment/Plan - Leukocytosis sec to UTI- maira Albicans - -Acute cystitis without hematuria - sp Vanco/Zosyn - fu urine c/s - ID consult- Dr Garcia notified - am labs -Acute weakness sec to Dizziness - cardiology consult - 2D Echo am- LVEF 65% - Electrolyte imbalance- per nephrology - Hyperkalemia- RESOLVED - Hypernatremia - Hyperphosphatemia - Acute renal failure on Chronic Kidney disease - per nephro consult- dr Cheema - Dysphagia - sp PEG placement - aspiration precautions - cont tube feeding - History of paroxysmal atrial fibrillation.- no acute issues. SR at present - Diabetes mellitus. - Glycemic control - Dietary consult - community health educator consult - Chronic kidney disease. - History of cerebrovascular accident- no acute issues reported - Hx AMS Plan of care dw Dr Patel/staff Subjective 24 Hr Interval Summary Respiratory: no complaints Cardiovascular: no complaints Exam/Review of Systems Vital Signs Vitals Vital Signs Date Time Temp Pulse Resp B/P Pulse Ox O2 Delivery O2 Flow Rate FiO2 04/27/17 08:00 76 04/27/17 08:00 98.2 20 125/67 98 04/25/17 14:00 Room Air Intake and Output 04/26/17 04/26/17 04/27/17 15:00 23:00 07:00 Intake Total 740 ml Output Total 700 ml Balance 40 ml Exam afebrile, BP stable, ID follows, dw staff Psych: nl mood/affect Respiratory: diminished breath sounds Cardiovascular: nl pulses, regular rate and rhythm Gastrointestinal: non-tender, soft Extremities: normal pulses Results Result Diagram: 04/27/17 0643 04/27/17 0643 Results 24 hrs Laboratory Tests Test 04/26/17 12:26 04/26/17 18:09 04/26/17 21:15 04/27/17 00:35 Bedside Glucose 90 119 131 134 Test 04/27/17 06:11 04/27/17 06:43 04/27/17 07:56 Bedside Glucose 110 108 White Blood Count 13.4 H Red Blood Count 3.20 L Hemoglobin 8.3 L Hematocrit 26.2 L Mean Corpuscular Volume 81.9 L Mean Corpuscular Hemoglobin 25.9 L Mean Corpuscular Hemoglobin Concent 31.7 L Red Cell Distribution Width 19.5 H Platelet Count 249 Mean Platelet Volume 12.0 H Neutrophils % 79.0 H Lymphocytes % 11.6 L Monocytes % 6.1 Eosinophils % 2.2 Basophils % 0.6 Nucleated Red Blood Cells % 0.0 Neutrophils # (Manual) 10.6 H Lymphocytes # 1.6 Monocytes # 0.8 Eosinophils # 0.3 Basophils # 0.1 Nucleated Red Blood Cells # 0.0 Sodium Level 132 L Potassium Level 3.6 Chloride Level 104 Carbon Dioxide Level 20 L Anion Gap 12 Blood Urea Nitrogen 90 H Creatinine 2.90 H Glucose Level 100 Calcium Level 7.9 L Medications Medications Current Medications Acetaminophen (Tylenol Tab) 650 mg Q6H PRN GTB PAIN AND OR ELEVATED TEMP Last administered on 04/26/17 14:25; Admin Dose 650 MG; Start 04/17/17 at 18:00 Amiodarone HCl (Cordarone) 100 mg DAILY GTB Last administered on 04/27/17 08:57 ; Admin Dose 100 MG; Start 04/18/17 at 09:00 Bisacodyl (Dulcolax Supp) 10 mg Q24H [place] Last administered on 04/26/17 18:52; Admin Dose 10 MG; Start 04/17/17 at 18:00 Diphenhydramine HCl (Benadryl) 25 mg Q6H PRN GTB ITCHING Last administered on 21:33; Admin Dose 25 MG; Start 04/17/17 at 18:00 Hydralazine HCl (Apresoline) 50 mg Q8 PRN GTB ELEVATED BLOOD PRESSURE Last administered on 04/18/17 13:18; Admin Dose 50 MG; Start 04/17/17 at 18:00 Multivitamins Therapeutic (Theragran) 1 tab DAILY GTB Last administered on 08:56; Admin Dose 1 TAB; Start 04/18/17 at 09:00 Tamsulosin HCl 0.4 mg 0.4 mg DAILY PO Last administered on 04/27/17 08:57; Admin Dose 0.4 MG; Start 04/18/17 at 09:00 Sodium Chloride (1/2 NS) 1,000 ml @ 100 mls/hr Q10H IV Last administered on 02:20; Admin Dose 100 MLS/HR; Start 04/17/17 at 18:30 Diagnostic Test (Pha) (Accu-Chek) 1 ea 02 XX Last administered on 04/26/17 02: 20; Admin Dose 1 EA; Start 04/18/17 at 02:00 Miscellaneous Information 1 ea NOTE XX ; Start 04/17/17 at 21:00 Glucose (Glutose) 15 gm Q15M PRN PO DECREASED GLUCOSE; Start 04/17/17 at 21:00 Glucose (Glutose) 22.5 gm Q15M PRN PO DECREASED GLUCOSE; Start 04/17/17 at 21: 00 Dextrose (D50w Syringe) 25 ml Q15M PRN IV DECREASED GLUCOSE Last administered on 04/20/17 17:22; Admin Dose 25 ML; Start 04/17/17 at 21:00 Dextrose (D50w Syringe) 50 ml Q15M PRN IV DECREASED GLUCOSE; Start 04/17/17 at 21:00 Glucagon (Glucagen) 1 mg Q15M PRN IM DECREASED GLUCOSE; Start 04/17/17 at 21:00 Glucose (Glutose) 15 gm Q15M PRN BUCCAL DECREASED GLUCOSE; Start 04/17/17 at 21 :00 Ondansetron HCl (Zofran Inj) 4 mg Q6H PRN IV NAUSEA AND/OR VOMITING; Start at 00:30 Insulin Aspart (Novolog Insulin Pen) (Adult SC Insulin - Mild Algorithm)... Q6 SC Last administered on 04/25/17 22:08; Admin Dose 1 UNIT; Start 04/20/17 at 00 :00 Insulin Glargine (Lantus) 14 unit QHS SC Last administered on 04/26/17 21:23; Admin Dose 14 UNIT; Start 04/20/17 at 21:00 Amlodipine Besylate (Norvasc) 5 mg BID GTB Last administered on 04/27/17 08:57 ; Admin Dose 5 MG; Start 04/21/17 at 21:00 Metronidazole (Flagyl) 500 mg Q8 PO Last administered on 04/27/17 06:14; Admin Dose 500 MG; Start 04/22/17 at 22:00 Metoprolol Tartrate (Lopressor) 25 mg BID PO Last administered on 04/27/17 08: 57; Admin Dose 25 MG; Start 04/23/17 at 09:00 Hydralazine HCl (Apresoline) 25 mg Q8 PO Last administered on 04/27/17 06:14; Admin Dose 25 MG; Start 04/22/17 at 22:00 Hydralazine HCl 10 mg 10 mg Q4H PRN IV SBP>170; Start 04/22/17 at 22:00 Dextrose/Sodium Chloride (D5-1/2ns) 1,000 ml @ 50 mls/hr Q20H IV Last administered on 04/27/17 01:22; Admin Dose 50 MLS/HR; Start 04/26/17 at 04:30 MARCY WEINER Apr 27, 2017 10:35
[2017-04-27] MEDS: BISACODYL 10 MG SUPP PR SCH (16:41)
--- NOTE | 2017-04-27 19:25 | CONS ---
Date/Time of Note Date/Time of Note DATE: 04/27/17 TIME: 19:23 Assessment/Plan Assessment/Plan Chief Complaint/Hosp Course 1.BISI on CKD with baseline Cr 2.48 > improving 2.Hypernatremia >improving 3.HTN 4 Ecoli UTI 5 Sepsis 6 Chronic Afib 7 CVA s/p G tube placement 8 Renal cyst plan peg feeding Problems: Consultation Date/Type/Reason Admit Date/Time Apr 17, 2017 at 16:39 Type of Consultation: renal Referring Provider: PORTIA OLIVER MD 24 HR Interval Summary Constitutional: no complaints, No chills, No diaphoresis Exam/Review of Systems Vital Signs Vitals Vital Signs Date Time Temp Pulse Resp B/P Pulse Ox O2 Delivery O2 Flow Rate FiO2 04/27/17 16:24 98.0 74 20 114/60 98 04/25/17 14:00 Room Air Intake and Output 04/26/17 04/26/17 04/27/17 14:59 22:59 06:59 Intake Total 740 ml Output Total 700 ml Balance 40 ml Exam Neck: supple Respiratory: clear to auscultation Cardiovascular: regular rate and rhythm Gastrointestinal: other (peg+), soft Extremities: normal pulses Results Result Diagram: 04/27/17 0643 04/27/17 0643 Results 24 hrs Laboratory Tests Test 04/26/17 21:15 04/27/17 00:35 04/27/17 06:11 04/27/17 06:43 Bedside Glucose 131 134 110 White Blood Count 13.4 H Red Blood Count 3.20 L Hemoglobin 8.3 L Hematocrit 26.2 L Mean Corpuscular Volume 81.9 L Mean Corpuscular Hemoglobin 25.9 L Mean Corpuscular Hemoglobin Concent 31.7 L Red Cell Distribution Width 19.5 H Platelet Count 249 Mean Platelet Volume 12.0 H Neutrophils % 79.0 H Lymphocytes % 11.6 L Monocytes % 6.1 Eosinophils % 2.2 Basophils % 0.6 Nucleated Red Blood Cells % 0.0 Neutrophils # (Manual) 10.6 H Lymphocytes # 1.6 Monocytes # 0.8 Eosinophils # 0.3 Basophils # 0.1 Nucleated Red Blood Cells # 0.0 Sodium Level 132 L Potassium Level 3.6 Chloride Level 104 Carbon Dioxide Level 20 L Anion Gap 12 Blood Urea Nitrogen 90 H Creatinine 2.90 H Glucose Level 100 Calcium Level 7.9 L Test 04/27/17 07:56 04/27/17 11:34 04/27/17 17:07 Bedside Glucose 108 85 114 Medications Medications Current Medications Acetaminophen (Tylenol Tab) 650 mg Q6H PRN GTB PAIN AND OR ELEVATED TEMP Last administered on 04/26/17 14:25; Admin Dose 650 MG; Start 04/17/17 at 18:00 Amiodarone HCl (Cordarone) 100 mg DAILY GTB Last administered on 04/27/17 08:57 ; Admin Dose 100 MG; Start 04/18/17 at 09:00 Bisacodyl (Dulcolax Supp) 10 mg Q24H [place] Last administered on 04/27/17 16:41; Admin Dose 10 MG; Start 04/17/17 at 18:00 Diphenhydramine HCl (Benadryl) 25 mg Q6H PRN GTB ITCHING Last administered on 21:33; Admin Dose 25 MG; Start 04/17/17 at 18:00 Hydralazine HCl (Apresoline) 50 mg Q8 PRN GTB ELEVATED BLOOD PRESSURE Last administered on 04/18/17 13:18; Admin Dose 50 MG; Start 04/17/17 at 18:00 Multivitamins Therapeutic (Theragran) 1 tab DAILY GTB Last administered on 08:56; Admin Dose 1 TAB; Start 04/18/17 at 09:00 Tamsulosin HCl (Flomax) 0.4 mg DAILY PO Last administered on 04/27/17 08:57; Admin Dose 0.4 MG; Start 04/18/17 at 09:00 Diagnostic Test (Pha) (Accu-Chek) 1 ea 02 XX Last administered on 04/26/17 02: 20; Admin Dose 1 EA; Start 04/18/17 at 02:00 Miscellaneous Information 1 ea NOTE XX ; Start 04/17/17 at 21:00 Glucose (Glutose) 15 gm Q15M PRN PO DECREASED GLUCOSE; Start 04/17/17 at 21:00 Glucose (Glutose) 22.5 gm Q15M PRN PO DECREASED GLUCOSE; Start 04/17/17 at 21: 00 Dextrose (D50w Syringe) 25 ml Q15M PRN IV DECREASED GLUCOSE Last administered on 04/20/17 17:22; Admin Dose 25 ML; Start 04/17/17 at 21:00 Dextrose (D50w Syringe) 50 ml Q15M PRN IV DECREASED GLUCOSE; Start 04/17/17 at 21:00 Glucagon (Glucagen) 1 mg Q15M PRN IM DECREASED GLUCOSE; Start 04/17/17 at 21:00 Glucose (Glutose) 15 gm Q15M PRN BUCCAL DECREASED GLUCOSE; Start 04/17/17 at 21 :00 Ondansetron HCl (Zofran Inj) 4 mg Q6H PRN IV NAUSEA AND/OR VOMITING; Start at 00:30 Insulin Aspart (Novolog Insulin Pen) (Adult SC Insulin - Mild Algorithm)... Q6 SC Last administered on 04/25/17 22:08; Admin Dose 1 UNIT; Start 04/20/17 at 00 :00 Insulin Glargine (Lantus) 14 unit QHS SC Last administered on 04/26/17 21:23; Admin Dose 14 UNIT; Start 04/20/17 at 21:00 Amlodipine Besylate (Norvasc) 5 mg BID GTB Last administered on 04/27/17 08:57 ; Admin Dose 5 MG; Start 04/21/17 at 21:00 Metronidazole (Flagyl) 500 mg Q8 PO Last administered on 04/27/17 13:09; Admin Dose 500 MG; Start 04/22/17 at 22:00 Metoprolol Tartrate (Lopressor) 25 mg BID PO Last administered on 04/27/17 08: 57; Admin Dose 25 MG; Start 04/23/17 at 09:00 Hydralazine HCl (Apresoline) 25 mg Q8 PO Last administered on 04/27/17 06:14; Admin Dose 25 MG; Start 04/22/17 at 22:00 Hydralazine HCl 10 mg 10 mg Q4H PRN IV SBP>170; Start 04/22/17 at 22:00 Dextrose/Sodium Chloride (D5-1/2ns) 1,000 ml @ 50 mls/hr Q20H IV Last administered on 04/27/17 16:41; Admin Dose 50 MLS/HR; Start 04/26/17 at 04:30 ABBY RAMOS MD Apr 27, 2017 19:25
[2017-04-27] MEDS: INSULIN GLARGINE [LANtus] 3 ML PEN SC SCH (22:12)
--- NOTE | 2017-04-27 22:12 | PN ---
DATE: 04/27/2017 SUBJECTIVE DATA: No acute changes overnight. No fevers. Patient is lying comfortably in bed. According to staff, on and off having episodes of restlessness. VITAL SIGNS: Temperature 98, pulse 74, respirations 20, blood pressure 114/60, saturation 98 percent. LABORATORY AND DIAGNOSTIC DATA: WBC 13.4, H and H 8.3 and 26.2, platelets 249, neutrophils 79. BUN 90, creatinine 2.90. MICROBIOLOGY: Repeat blood and urine culture on April 22 negative. DIAGNOSTICS: Abdominal x-ray revealed nonspecific gas pattern. INDWELLING: Flores, PEG. ANTIMICROBIALS: Patient is on Flagyl. PHYSICAL EXAMINATION: GENERAL: Well-developed, chronically ill-appearing, elderly man, who is in no distress. HEENT: Head atraumatic, normocephalic. Sclerae anicteric. Buccal mucosa dry. NECK: Supple. CHEST: Rise symmetrical. Breath sounds diminished at the bases. HEART: S1, S2. ABDOMEN: Soft, bowel sounds present. EXTREMITIES: Wasted, without cyanosis. ASSESSMENT: 1. Persistent leukocytosis, on empiric Flagyl for possible Clostridium difficile, given diarrhea. 2. Status post urinary tract infection. 3. Dysphagia. 4. Dementia. 5. Acute renal failure. 6. Encephalopathy. 7. Atrial fibrillation. PLAN: Patient remains stable. Continue present care. Anti- aspiration measures. Follow recommendations of consultants. Dictated By: Maria Brothers NP /[email or web address]/[email or web address] /Document#: [id number]
[2017-04-28] VITALS (12 sets, daily range): BP systolic 103–130; BP diastolic 52–62; PULSE 40–71; RESP 17–20
[2017-04-28] MEDS: Insulin NOVOLOG SS MILD Algorithm (NPO/TPN/ENTERAL FEEDS) SC SCH ×4 (01:08→17:27)
[2017-04-28] MEDS: metroNIDAZOLE 500 MG TAB PO SCH ×3 (06:01→21:28)
[2017-04-28 07:41] LABS: BASOPHIL # 0.1 10^3/ul (0.0-0.1); BASOPHILS % 0.6 % (0.0-2.0); EOSINOPHILS # 0.5 10^3/ul (0.0-0.5); EOSINOPHILS % 3.9 % (0.0-7.0); HEMATOCRIT 25.3 % (42.0-52.0); HEMOGLOBIN 8.1 g/dl (14.0-18.0); LYMPHOCYTES # 1.7 10^3/ul (0.8-2.9); LYMPHOCYTES % 13.5 % (15.0-51.0); MEAN CORPUSCULAR VOLUME 81.4 fl (82.0-101.0); MEAN PLATELET VOLUME 11.3 fl (7.4-10.4); MONOCYTES % 7.6 % (0.0-11.0); NEUTROPHILS % 73.8 % (39.0-77.0); PLATELET COUNT 254 10^3/UL (140-415); RED BLOOD COUNT 3.11 10^6/ul (4.70-6.10); RED CELL DISTRIBUTION WIDTH 19.9 % (11.5-14.5); WHITE BLOOD COUNT 12.7 10^3/ul (4.8-10.8)
[2017-04-28 08:06] LABS: CALCIUM 7.8 mg/dl (8.4-10.2); CREATININE 3.01 mg/dl (0.61-1.24); POTASSIUM 3.7 mmol/L (3.5-5.1)
[2017-04-28] MEDS: MULTIVITAMINS THERAPEUTIC TAB GTB SCH (08:14)
[2017-04-28] MEDS: METOPROLOL 25 MG TAB PO SCH (08:14)
[2017-04-28] MEDS: AMIODARONE 200 MG TAB GTB SCH (08:14)
[2017-04-28] MEDS: TAMSULOSIN (SR) 0.4 MG CAP PO SCH (08:14)
[2017-04-28] MEDS: AMLODIPINE 5 MG TAB GTB SCH (08:15)
--- NOTE | 2017-04-28 11:11 | PN ---
Date/Time of Note Date/Time of Note DATE: 04/28/17 TIME: 11:04 Assessment/Plan VTE Prophylaxis VTE Prophylaxis Intervention: other Lines/Catheters IV Catheter Type (from [facility]): Peripheral IV Urinary Cath still in place: Yes Assessment/Plan Assessment/Plan - Anemia- Hgb dropped. - gi CONSULT- Dr CERNA NOTIFIED - stool OB. DW STAFF - Leukocytosis sec to UTI- maira Albicans - -Acute cystitis without hematuria - sp Vanco/Zosyn - fu urine c/s - ID consult- Dr Garcia notified - am labs -Acute weakness sec to Dizziness - cardiology consult - 2D Echo am- LVEF 65% - Electrolyte imbalance- per nephrology - Hyperkalemia- RESOLVED - Hypernatremia - Hyperphosphatemia - Acute renal failure on Chronic Kidney disease - per nephro consult- dr Cheema - Dysphagia - sp PEG placement - aspiration precautions - cont tube feeding - History of paroxysmal atrial fibrillation.- no acute issues. SR at present - Diabetes mellitus. - Glycemic control - Dietary consult - nursing educator consult - Chronic kidney disease. - History of cerebrovascular accident- no acute issues reported - Hx AMS Plan of care dw Dr Patel/staff Subjective 24 Hr Interval Summary Free Text/Dictation afebrile, tolerates GT feeding at 35 cc/hr- residual 10 cc. Hgb dropped.will gi CONSULT, get stool OB. DW STAFF Exam/Review of Systems Vital Signs Vitals Vital Signs Date Time Temp Pulse Resp B/P Pulse Ox O2 Delivery O2 Flow Rate FiO2 04/28/17 08:31 67 04/28/17 08:00 97.7 18 115/58 97 04/25/17 14:00 Room Air Intake and Output 04/27/17 04/27/17 04/28/17 15:00 23:00 07:00 Intake Total 700 ml 1240 ml 1320 ml Output Total 650 ml 600 ml 850 ml Balance 50 ml 640 ml 470 ml Exam Constitutional: well developed Respiratory: diminished breath sounds Cardiovascular: nl pulses, regular rate and rhythm Gastrointestinal: non-tender, soft Musculoskeletal: nl extremities to inspection Extremities: normal pulses Neurological: other Results Result Diagram: 04/28/17 0722 04/28/17 0722 Results 24 hrs Laboratory Tests Test 04/27/17 11:34 04/27/17 17:07 04/27/17 22:06 04/28/17 00:52 Bedside Glucose 85 114 171 173 Test 04/28/17 05:38 04/28/17 07:22 04/28/17 07:45 Bedside Glucose 140 137 White Blood Count 12.7 H Red Blood Count 3.11 L Hemoglobin 8.1 L Hematocrit 25.3 L Mean Corpuscular Volume 81.4 L Mean Corpuscular Hemoglobin 26.0 L Mean Corpuscular Hemoglobin Concent 32.0 Red Cell Distribution Width 19.9 H Platelet Count 254 Mean Platelet Volume 11.3 H Neutrophils % 73.8 Lymphocytes % 13.5 L Monocytes % 7.6 Eosinophils % 3.9 Basophils % 0.6 Nucleated Red Blood Cells % 0.0 Neutrophils # (Manual) 9.4 H Lymphocytes # 1.7 Monocytes # 1.0 H Eosinophils # 0.5 Basophils # 0.1 Nucleated Red Blood Cells # 0.0 Sodium Level 131 L Potassium Level 3.7 Chloride Level 105 Carbon Dioxide Level 20 L Anion Gap 10 Blood Urea Nitrogen 89 H Creatinine 3.01 H Glucose Level 120 Calcium Level 7.8 L Medications Medications Current Medications Acetaminophen (Tylenol Tab) 650 mg Q6H PRN GTB PAIN AND OR ELEVATED TEMP Last administered on 04/26/17 14:25; Admin Dose 650 MG; Start 04/17/17 at 18:00 Amiodarone HCl (Cordarone) 100 mg DAILY GTB Last administered on 04/28/17 08:14 ; Admin Dose 100 MG; Start 04/18/17 at 09:00 Bisacodyl (Dulcolax Supp) 10 mg Q24H [place] Last administered on 04/27/17 16:41; Admin Dose 10 MG; Start 04/17/17 at 18:00 Diphenhydramine HCl (Benadryl) 25 mg Q6H PRN GTB ITCHING Last administered on 21:33; Admin Dose 25 MG; Start 04/17/17 at 18:00 Hydralazine HCl (Apresoline) 50 mg Q8 PRN GTB ELEVATED BLOOD PRESSURE Last administered on 04/18/17 13:18; Admin Dose 50 MG; Start 04/17/17 at 18:00 Multivitamins Therapeutic (Theragran) 1 tab DAILY GTB Last administered on 08:14; Admin Dose 1 TAB; Start 04/18/17 at 09:00 Tamsulosin HCl (Flomax) 0.4 mg DAILY PO Last administered on 04/28/17 08:14; Admin Dose 0.4 MG; Start 04/18/17 at 09:00 Miscellaneous Information 1 ea NOTE XX ; Start 04/17/17 at 21:00 Glucose (Glutose) 15 gm Q15M PRN PO DECREASED GLUCOSE; Start 04/17/17 at 21:00 Glucose (Glutose) 22.5 gm Q15M PRN PO DECREASED GLUCOSE; Start 04/17/17 at 21: 00 Dextrose (D50w Syringe) 25 ml Q15M PRN IV DECREASED GLUCOSE Last administered on 04/20/17 17:22; Admin Dose 25 ML; Start 04/17/17 at 21:00 Dextrose (D50w Syringe) 50 ml Q15M PRN IV DECREASED GLUCOSE; Start 04/17/17 at 21:00 Glucagon (Glucagen) 1 mg Q15M PRN IM DECREASED GLUCOSE; Start 04/17/17 at 21:00 Glucose (Glutose) 15 gm Q15M PRN BUCCAL DECREASED GLUCOSE; Start 04/17/17 at 21 :00 Ondansetron HCl (Zofran Inj) 4 mg Q6H PRN IV NAUSEA AND/OR VOMITING; Start at 00:30 Insulin Aspart (Novolog Insulin Pen) (Adult SC Insulin - Mild Algorithm)... Q6 SC Last administered on 04/28/17 01:08; Admin Dose 1 UNIT; Start 04/20/17 at 00 :00 Insulin Glargine (Lantus) 14 unit QHS SC Last administered on 04/27/17 22:12; Admin Dose 14 UNIT; Start 04/20/17 at 21:00 Amlodipine Besylate (Norvasc) 5 mg BID GTB Last administered on 04/27/17 08:57 ; Admin Dose 5 MG; Start 04/21/17 at 21:00 Metronidazole (Flagyl) 500 mg Q8 PO Last administered on 04/28/17 06:01; Admin Dose 500 MG; Start 04/22/17 at 22:00 Metoprolol Tartrate (Lopressor) 25 mg BID PO Last administered on 04/28/17 08: 14; Admin Dose 25 MG; Start 04/23/17 at 09:00 Hydralazine HCl (Apresoline) 25 mg Q8 PO Last administered on 04/28/17 06:01; Admin Dose 25 MG; Start 04/22/17 at 22:00 Hydralazine HCl 10 mg 10 mg Q4H PRN IV SBP>170; Start 04/22/17 at 22:00 Dextrose/Sodium Chloride (D5-1/2ns) 1,000 ml @ 50 mls/hr Q20H IV Last administered on 04/27/17 16:41; Admin Dose 50 MLS/HR; Start 04/26/17 at 04:30 MARCY WEINER Apr 28, 2017 11:11
--- NOTE | 2017-04-28 11:14 | PN ---
Date/Time of Note Date/Time of Note DATE: 04/28/17 TIME: 10:54 Assessment/Plan Lines/Catheters IV Catheter Type (from Nrsg): Peripheral IV Urinary Cath still in place: Yes Subjective 24 Hr Interval Summary Constitutional: requiring O2 Exam/Review of Systems Vital Signs Vitals Vital Signs Date Time Temp Pulse Resp B/P Pulse Ox O2 Delivery O2 Flow Rate FiO2 04/28/17 08:31 67 04/28/17 08:00 97.7 18 115/58 97 04/25/17 14:00 Room Air Intake and Output 04/27/17 04/27/17 04/28/17 15:00 23:00 07:00 Intake Total 700 ml 1240 ml 1320 ml Output Total 650 ml 600 ml 850 ml Balance 50 ml 640 ml 470 ml Results Result Diagram: 04/28/1772104/28/17721 Results 24 hrs Laboratory Tests Test 04/27/17 11:34 04/27/17 17:07 04/27/17 22:06 04/28/17 00:52 Bedside Glucose 85 114 171 173 Test 04/28/17 05:38 04/28/17 07:22 04/28/17 07:45 Bedside Glucose 140 137 White Blood Count 12.7 H Red Blood Count 3.11 L Hemoglobin 8.1 L Hematocrit 25.3 L Mean Corpuscular Volume 81.4 L Mean Corpuscular Hemoglobin 26.0 L Mean Corpuscular Hemoglobin Concent 32.0 Red Cell Distribution Width 19.9 H Platelet Count 254 Mean Platelet Volume 11.3 H Neutrophils % 73.8 Lymphocytes % 13.5 L Monocytes % 7.6 Eosinophils % 3.9 Basophils % 0.6 Nucleated Red Blood Cells % 0.0 Neutrophils # (Manual) 9.4 H Lymphocytes # 1.7 Monocytes # 1.0 H Eosinophils # 0.5 Basophils # 0.1 Nucleated Red Blood Cells # 0.0 Sodium Level 131 L Potassium Level 3.7 Chloride Level 105 Carbon Dioxide Level 20 L Anion Gap 10 Blood Urea Nitrogen 89 H Creatinine 3.01 H Glucose Level 120 Calcium Level 7.8 L Medications Medications Current Medications Acetaminophen (Tylenol Tab) 650 mg Q6H PRN GTB PAIN AND OR ELEVATED TEMP Last administered on 04/26/17t 14:25; Admin Dose 650 MG; Start 04/17/17 at 18:00 Amiodarone HCl (Cordarone) 100 mg DAILY GTB Last administered on 04/28/17 08:14 ; Admin Dose 100 MG; Start 04/18/17 at 09:00 Bisacodyl (Dulcolax Supp) 10 mg Q24H [place] Last administered on 04/27/17 16:41; Admin Dose 10 MG; Start 04/17/17 at 18:00 Diphenhydramine HCl (Benadryl) 25 mg Q6H PRN GTB ITCHING Last administered on 21:33; Admin Dose 25 MG; Start 04/17/17 at 18:00 Hydralazine HCl (Apresoline) 50 mg Q8 PRN GTB ELEVATED BLOOD PRESSURE Last administered on 04/18/17 13:18; Admin Dose 50 MG; Start 04/17/17 at 18:00 Multivitamins Therapeutic (Theragran) 1 tab DAILY GTB Last administered on 08:14; Admin Dose 1 TAB; Start 04/18/17 at 09:00 Tamsulosin HCl (Flomax) 0.4 mg DAILY PO Last administered on 04/28/17 08:14; Admin Dose 0.4 MG; Start 04/18/17 at 09:00 Miscellaneous Information 1 ea NOTE XX ; Start 04/17/17 at 21:00 Glucose (Glutose) 15 gm Q15M PRN PO DECREASED GLUCOSE; Start 04/17/17 at 21:00 Glucose (Glutose) 22.5 gm Q15M PRN PO DECREASED GLUCOSE; Start 04/17/17 at 21: 00 Dextrose (D50w Syringe) 25 ml Q15M PRN IV DECREASED GLUCOSE Last administered on 04/20/17 17:22; Admin Dose 25 ML; Start 04/17/17 at 21:00 Dextrose (D50w Syringe) 50 ml Q15M PRN IV DECREASED GLUCOSE; Start 04/17/17 at 21:00 Glucagon (Glucagen) 1 mg Q15M PRN IM DECREASED GLUCOSE; Start 04/17/17 at 21:00 Glucose (Glutose) 15 gm Q15M PRN BUCCAL DECREASED GLUCOSE; Start 04/17/17 at 21 :00 Ondansetron HCl (Zofran Inj) 4 mg Q6H PRN IV NAUSEA AND/OR VOMITING; Start at 00:30 Insulin Aspart (Novolog Insulin Pen) (Adult SC Insulin - Mild Algorithm)... Q6 SC Last administered on 04/28/17 01:08; Admin Dose 1 UNIT; Start 04/20/17 at 00 :00 Insulin Glargine (Lantus) 14 unit QHS SC Last administered on 04/27/17 22:12; Admin Dose 14 UNIT; Start 04/20/17 at 21:00 Amlodipine Besylate (Norvasc) 5 mg BID GTB Last administered on 04/27/17 08:57 ; Admin Dose 5 MG; Start 04/21/17 at 21:00 Metronidazole (Flagyl) 500 mg Q8 PO Last administered on 04/28/17 06:01; Admin Dose 500 MG; Start 04/22/17 at 22:00 Metoprolol Tartrate (Lopressor) 25 mg BID PO Last administered on 04/28/17 08: 14; Admin Dose 25 MG; Start 04/23/17 at 09:00 Hydralazine HCl (Apresoline) 25 mg Q8 PO Last administered on 04/28/17 06:01; Admin Dose 25 MG; Start 04/22/17 at 22:00 Hydralazine HCl 10 mg 10 mg Q4H PRN IV SBP>170; Start 04/22/17 at 22:00 Dextrose/Sodium Chloride (D5-1/2ns) 1,000 ml @ 50 mls/hr Q20H IV Last administered on 04/27/17 16:41; Admin Dose 50 MLS/HR; Start 04/26/17 at 04:30 MARCY WEINER Apr 28, 2017 11:14
[2017-04-28 11:49] LABS: ALBUMIN 2.5 g/dl (3.3-4.9); TOTAL PROTEIN 6.3 g/dl (6.1-8.1)
[2017-04-28] MEDS: DEXTROSE 5%-0.45% NACL 1,000 ML IV SCH (11:56)
--- NOTE | 2017-04-28 13:30 | PN ---
DATE: 04/28/2017 SUBJECTIVE DATA: No acute changes overnight per report. The patient is sleeping, looks comfortable. No fevers. WBC today 12.7, no shift, no bands. BUN 89, creatinine 3.01. INDWELLING: Flores, PEG. ANTIMICROBIALS: The patient is on oral Flagyl. OBJECTIVE DATA: PHYSICAL EXAMINATION: This is a chronically ill-appearing, wasted, elderly man, who is in no distress. HEENT: Head atraumatic, normocephalic. Sclerae anicteric. Buccal mucosa dry. NECK: Supple. CHEST: Rise symmetrical. Breath sounds diminished at the bases. HEART: S1, S2. ABDOMEN: Soft, bowel sounds present. EXTREMITIES: Without cyanosis. ASSESSMENT: 1. Status post-urinary tract infection. 2. Systemic inflammatory response syndrome with ongoing leukocytosis, on empiric Flagyl for possible Clostridium difficile, WBC tracing down. 3. Dysphagia. 4. Dementia. 5. Acute renal failure. PLAN: The patient remains stable. Continue present care. Antibiotics. Follow nephrology recommendations. Continue anti- aspiration measures. Dictated By: Maria Brothers NP /jackelin/yaron /Document#: [id number]
--- NOTE | 2017-04-28 17:22 | RADRPT ---
PROCEDURE: XR Chest 1 view. CLINICAL INDICATION: Chest pain TECHNIQUE: AP views of the chest were obtained. COMPARISON: April 22, 2017 FINDINGS: The heart is large. Calcified atherosclerosis is noted in the aorta. Chronic mild interstitial prom inence is seen in both lungs. Atelectasis is seen at the right lung base and in the left upper lobe. No consolidations are identified. No pneumothorax is seen. Osseous structures are intact. IMPRESSION: Cardiomegaly with calcified atherosclerosis in the aorta. Chronic mild interstitial prominence in both lungs. Atelectasis at the right lung base and scattered in the left upper lobe. RPTAT: AA .Lance Barcenas MD, MD Date Time Electronically viewed and signed by .Lance Barcenas MD, on 04/28/2017 17:22 .P/
--- NOTE | 2017-04-28 17:27 | CONS ---
Date/Time of Note Date/Time of Note DATE: 04/28/17 TIME: 17:22 Assessment/Plan Assessment/Plan Chief Complaint/Hosp Course IMP: 1.HTN-uncontrolled-? component of agitation 2.H/O PAF 3.renal failure 4.dysphagia 5. AMS 6. Heart block-wenkebach REcc: -Tele -serial ecg's -Continue amio low dose 100 mg as tolerated only -follow rhythm closely -Continue norvasc/hydralazine -Hold BB given wenkebach -Follow volume status closelyt Problems: Consultation Date/Type/Reason Admit Date/Time Apr 17, 2017 at 16:39 Initial Consult Date 04/18/17 Type of Consultation: cardiology Reason for Consultation heart block Referring Provider: PORTIA OLIVER MD Exam/Review of Systems Vital Signs Vitals Vital Signs Date Time Temp Pulse Resp B/P Pulse Ox O2 Delivery O2 Flow Rate FiO2 04/28/17 16:06 63 04/28/17 15:25 98.6 18 103/52 96 04/25/17 14:00 Room Air Intake and Output 04/27/17 04/27/17 04/28/17 15:00 23:00 07:00 Intake Total 700 ml 1240 ml 1320 ml Output Total 650 ml 600 ml 850 ml Balance 50 ml 640 ml 470 ml Exam Review of Systems: CONSTITUTIONAL: No fevers, chills. PULMONARY: No sob CARDIOVASCULAR: No chest pain/palpitations GASTROINTESTINAL: No nausea/vomiting. GENITOURINARY: No hematuria/dysuria. MUSCULOSKELETAL: No myagias/arthalgias. PSYCHIATRIC: The patient denies depression. NEUROLOGIC: lethargic Constitutional: other (sleeping, arousable) Head: normocephalic ENMT: mucosa pink and moist Neck: jvd (9 cm water), supple Respiratory: diminished breath sounds (at bases/N) Cardiovascular: regular rate and rhythm Gastrointestinal: non-tender, soft Musculoskeletal: muscle tone Extremities: edema (none) Neurological: other (No focal deficits) Results Result Diagram: 04/28/17 0722 04/28/17 0722 Results 24 hrs Laboratory Tests Test 04/27/17 22:06 04/28/17 00:52 04/28/17 05:38 04/28/17 07:22 Bedside Glucose 171 173 140 White Blood Count 12.7 H Red Blood Count 3.11 L Hemoglobin 8.1 L Hematocrit 25.3 L Mean Corpuscular Volume 81.4 L Mean Corpuscular Hemoglobin 26.0 L Mean Corpuscular Hemoglobin Concent 32.0 Red Cell Distribution Width 19.9 H Platelet Count 254 Mean Platelet Volume 11.3 H Neutrophils % 73.8 Lymphocytes % 13.5 L Monocytes % 7.6 Eosinophils % 3.9 Basophils % 0.6 Nucleated Red Blood Cells % 0.0 Neutrophils # (Manual) 9.4 H Lymphocytes # 1.7 Monocytes # 1.0 H Eosinophils # 0.5 Basophils # 0.1 Nucleated Red Blood Cells # 0.0 Sodium Level 131 L Potassium Level 3.7 Chloride Level 105 Carbon Dioxide Level 20 L Anion Gap 10 Blood Urea Nitrogen 89 H Creatinine 3.01 H Glucose Level 120 Calcium Level 7.8 L Total Bilirubin 0.0 L Direct Bilirubin 0.00 Indirect Bilirubin 0.0 Aspartate Amino Transf (AST/SGOT) 47 H Alanine Aminotransferase (ALT/SGPT) 57 Alkaline Phosphatase 182 H Total Protein 6.3 Albumin 2.5 L Test 04/28/17 07:45 04/28/17 11:53 04/28/17 17:01 Bedside Glucose 137 144 159 Medications Medications Current Medications Acetaminophen (Tylenol Tab) 650 mg Q6H PRN GTB PAIN AND OR ELEVATED TEMP Last administered on 04/26/17 14:25; Admin Dose 650 MG; Start 04/17/17 at 18:00 Amiodarone HCl (Cordarone) 100 mg DAILY GTB Last administered on 04/28/17 08:14 ; Admin Dose 100 MG; Start 04/18/17 at 09:00 Bisacodyl (Dulcolax Supp) 10 mg Q24H [place] Last administered on 04/27/17 16:41; Admin Dose 10 MG; Start 04/17/17 at 18:00 Diphenhydramine HCl (Benadryl) 25 mg Q6H PRN GTB ITCHING Last administered on 21:33; Admin Dose 25 MG; Start 04/17/17 at 18:00 Hydralazine HCl (Apresoline) 50 mg Q8 PRN GTB ELEVATED BLOOD PRESSURE Last administered on 04/18/17 13:18; Admin Dose 50 MG; Start 04/17/17 at 18:00 Multivitamins Therapeutic (Theragran) 1 tab DAILY GTB Last administered on 08:14; Admin Dose 1 TAB; Start 04/18/17 at 09:00 Tamsulosin HCl (Flomax) 0.4 mg DAILY PO Last administered on 04/28/17 08:14; Admin Dose 0.4 MG; Start 04/18/17 at 09:00 Miscellaneous Information 1 ea NOTE XX ; Start 04/17/17 at 21:00 Glucose (Glutose) 15 gm Q15M PRN PO DECREASED GLUCOSE; Start 04/17/17 at 21:00 Glucose (Glutose) 22.5 gm Q15M PRN PO DECREASED GLUCOSE; Start 04/17/17 at 21: 00 Dextrose (D50w Syringe) 25 ml Q15M PRN IV DECREASED GLUCOSE Last administered on 04/20/17 17:22; Admin Dose 25 ML; Start 04/17/17 at 21:00 Dextrose (D50w Syringe) 50 ml Q15M PRN IV DECREASED GLUCOSE; Start 04/17/17 at 21:00 Glucagon (Glucagen) 1 mg Q15M PRN IM DECREASED GLUCOSE; Start 04/17/17 at 21:00 Glucose (Glutose) 15 gm Q15M PRN BUCCAL DECREASED GLUCOSE; Start 04/17/17 at 21 :00 Ondansetron HCl (Zofran Inj) 4 mg Q6H PRN IV NAUSEA AND/OR VOMITING; Start at 00:30 Insulin Aspart (Novolog Insulin Pen) (Adult SC Insulin - Mild Algorithm)... Q6 SC Last administered on 04/28/17 11:57; Admin Dose 1 UNIT; Start 04/20/17 at 00 :00 Insulin Glargine (Lantus) 14 unit QHS SC Last administered on 04/27/17 22:12; Admin Dose 14 UNIT; Start 04/20/17 at 21:00 Amlodipine Besylate (Norvasc) 5 mg BID GTB Last administered on 04/27/17 08:57 ; Admin Dose 5 MG; Start 04/21/17 at 21:00 Metronidazole (Flagyl) 500 mg Q8 PO Last administered on 04/28/17 12:59; Admin Dose 500 MG; Start 04/22/17 at 22:00 Metoprolol Tartrate (Lopressor) 25 mg BID PO Last administered on 04/28/17 08: 14; Admin Dose 25 MG; Start 04/23/17 at 09:00 Hydralazine HCl (Apresoline) 25 mg Q8 PO Last administered on 04/28/17 06:01; Admin Dose 25 MG; Start 04/22/17 at 22:00 Hydralazine HCl 10 mg 10 mg Q4H PRN IV SBP>170; Start 04/22/17 at 22:00 Dextrose/Sodium Chloride (D5-1/2ns) 1,000 ml @ 50 mls/hr Q20H IV Last administered on 04/28/17 11:56; Admin Dose 50 MLS/HR; Start 04/26/17 at 04:30 LESLI SHEA Apr 28, 2017 17:27
[2017-04-28] MEDS ORDERED: NITROGLYCERIN (SL) 0.4 MG TAB SL PRN (18:00)
[2017-04-28] MEDS: BISACODYL 10 MG SUPP PR SCH (18:33)
--- NOTE | 2017-04-28 19:04 | CONS ---
DATE OF ADMISSION: 04/17/2017 DATE OF CONSULTATION: 04/28/2017 REASON FOR CONSULTATION: Anemia. HISTORY OF PRESENT ILLNESS: A 72-year-old male with a history of atrial fibrillation, diabetes mellitus, hypertension, and chronic kidney disease, status post G-tube, legally blind, admitted to the hospital complaining of dizziness. Patient was unable to stand so was admitted to the hospital for further management. No chest pain. No shortness of breath. No gross GI bleeding. 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 PAST MEDICAL HISTORY: As described history of altered mental status, history of CVA, chronic kidney disease, diabetes mellitus, atrial fibrillation. ALLERGIES: NONE. REVIEW OF SYSTEMS: Negative. SOCIAL HISTORY: No alcohol. No smoker. Resident of retirement. PHYSICAL EXAMINATION: VITAL SIGNS: Stable. GENERAL APPEARANCE: He is alert, awake, not in distress. HEART: No murmur, gallop, or click. LUNGS: Clear. ABDOMEN: Benign. G-tube is in place. CENTRAL NERVOUS SYSTEM: Moves all the extremities and communicates. LABORATORY: His hematocrit which was 34 on 04/22 within 5 days dropped down to 25. As per the staff, no evidence of gross GI bleeding, no black stool and G-tube aspirate was negative for blood. Liver functions were normal except for a mild elevation of alkaline phosphatase which was 182. KUB was negative. IMPRESSION: 1. Anemia may be anemia of chronic disease. Rule out gastrointestinal blood loss. 2. Dysphagia status post percutaneous endoscopic gastrostomy. 3. Diabetes mellitus. 4. Cerebrovascular accident. 5. End-stage renal disease, on dialysis. 6. Diabetes mellitus. 7. Legally blind. 8. Status post urinary tract infection. PLAN: At this point is to work him up for the anemia, stool for occult blood, B12, folic acid, and retic count. Patient never had a colonoscopy in the past so he may need a colonoscopy as an outpatient or inpatient. Dictated By: Nixon Cabral MD /jackelin/cate /Document#: [id number] CC: Aravind Patel MD;*EndCC*
--- NOTE | 2017-04-28 19:20 | RADRPT ---
Vent Rate: 68 bpm RR Interval: 0 msec [place] Interval: 258 msec QRS Duration: 114 msec QT Interval: 462 msec QTC Interval: 491 msec P-R-T [place]: 77 - 86 - 42 degrees Sinus rhythm with 1st degree AV block Right bundle branch block Abnormal ECG Electronically Signed By: Feliberto Mcgrath [id number]
[2017-04-28] MEDS: INSULIN GLARGINE [LANtus] 3 ML PEN SC SCH (21:31)
--- NOTE | 2017-04-28 23:19 | PN ---
Date/Time of Note Date/Time of Note DATE: 04/28/17 TIME: 23:18 Assessment/Plan VTE Prophylaxis VTE Prophylaxis Intervention: other Lines/Catheters IV Catheter Type (from Nrs): Saline Lock Urinary Cath still in place: Yes Reason Cath still needed: other (indicate) Assessment/Plan Chief Complaint/Hosp Course 1.BISI on CKD with baseline Cr 2.48 > improving 2.Hypernatremia >improving 3.HTN 4 Ecoli UTI 5 Sepsis 6 Chronic Afib 7 CVA s/p G tube placement 8 Renal cyst plan peg feeding CK BMP Problems: Subjective 24 Hr Interval Summary Respiratory: no complaints Cardiovascular: no complaints Exam/Review of Systems Vital Signs Vitals Vital Signs Date Time Temp Pulse Resp B/P Pulse Ox O2 Delivery O2 Flow Rate FiO2 04/28/17 20:00 71 04/28/17 20:00 98.4 17 130/59 97 04/25/17 14:00 Room Air Intake and Output 04/27/17 04/27/17 04/28/17 15:00 23:00 07:00 Intake Total 700 ml 1240 ml 1320 ml Output Total 650 ml 600 ml 850 ml Balance 50 ml 640 ml 470 ml Exam Respiratory: clear to auscultation Cardiovascular: regular rate and rhythm Gastrointestinal: bowel sounds (+), soft Results Result Diagram: 04/28/1772104/28/1722 Results 24 hrs Laboratory Tests Test 04/28/17 00:52 04/28/17 05:38 04/28/17 07:22 04/28/17 07:45 Bedside Glucose 173 140 137 White Blood Count 12.7 H Red Blood Count 3.11 L Hemoglobin 8.1 L Hematocrit 25.3 L Mean Corpuscular Volume 81.4 L Mean Corpuscular Hemoglobin 26.0 L Mean Corpuscular Hemoglobin Concent 32.0 Red Cell Distribution Width 19.9 H Platelet Count 254 Mean Platelet Volume 11.3 H Neutrophils % 73.8 Lymphocytes % 13.5 L Monocytes % 7.6 Eosinophils % 3.9 Basophils % 0.6 Nucleated Red Blood Cells % 0.0 Neutrophils # (Manual) 9.4 H Lymphocytes # 1.7 Monocytes # 1.0 H Eosinophils # 0.5 Basophils # 0.1 Nucleated Red Blood Cells # 0.0 Sodium Level 131 L Potassium Level 3.7 Chloride Level 105 Carbon Dioxide Level 20 L Anion Gap 10 Blood Urea Nitrogen 89 H Creatinine 3.01 H Glucose Level 120 Calcium Level 7.8 L Total Bilirubin 0.0 L Direct Bilirubin 0.00 Indirect Bilirubin 0.0 Aspartate Amino Transf (AST/SGOT) 47 H Alanine Aminotransferase (ALT/SGPT) 57 Alkaline Phosphatase 182 H Total Protein 6.3 Albumin 2.5 L Test 04/28/17 11:53 04/28/17 16:14 04/28/17 16:44 04/28/17 17:01 Bedside Glucose 144 159 Thyroid Stimulating Hormone (TSH) 2.210 Troponin I 0.040 Medications Medications Current Medications Acetaminophen (Tylenol Tab) 650 mg Q6H PRN GTB PAIN AND OR ELEVATED TEMP Last administered on 04/26/17 14:25; Admin Dose 650 MG; Start 04/17/17 at 18:00 Amiodarone HCl (Cordarone) 100 mg DAILY GTB Last administered on 04/28/17 08:14 ; Admin Dose 100 MG; Start 04/18/17 at 09:00 Bisacodyl (Dulcolax Supp) 10 mg Q24H [place] Last administered on 04/28/17 18:33; Admin Dose 10 MG; Start 04/17/17 at 18:00 Diphenhydramine HCl (Benadryl) 25 mg Q6H PRN GTB ITCHING Last administered on 21:33; Admin Dose 25 MG; Start 04/17/17 at 18:00 Hydralazine HCl (Apresoline) 50 mg Q8 PRN GTB ELEVATED BLOOD PRESSURE Last administered on 04/18/17 13:18; Admin Dose 50 MG; Start 04/17/17 at 18:00 Multivitamins Therapeutic (Theragran) 1 tab DAILY GTB Last administered on 08:14; Admin Dose 1 TAB; Start 04/18/17 at 09:00 Tamsulosin HCl (Flomax) 0.4 mg DAILY PO Last administered on 04/28/17 08:14; Admin Dose 0.4 MG; Start 04/18/17 at 09:00 Miscellaneous Information 1 ea NOTE XX ; Start 04/17/17 at 21:00 Glucose (Glutose) 15 gm Q15M PRN PO DECREASED GLUCOSE; Start 04/17/17 at 21:00 Glucose (Glutose) 22.5 gm Q15M PRN PO DECREASED GLUCOSE; Start 04/17/17 at 21: 00 Dextrose (D50w Syringe) 25 ml Q15M PRN IV DECREASED GLUCOSE Last administered on 04/20/17 17:22; Admin Dose 25 ML; Start 04/17/17 at 21:00 Dextrose (D50w Syringe) 50 ml Q15M PRN IV DECREASED GLUCOSE; Start 04/17/17 at 21:00 Glucagon (Glucagen) 1 mg Q15M PRN IM DECREASED GLUCOSE; Start 04/17/17 at 21:00 Glucose (Glutose) 15 gm Q15M PRN BUCCAL DECREASED GLUCOSE; Start 04/17/17 at 21 :00 Ondansetron HCl (Zofran Inj) 4 mg Q6H PRN IV NAUSEA AND/OR VOMITING; Start at 00:30 Insulin Aspart (Novolog Insulin Pen) (Adult SC Insulin - Mild Algorithm)... Q6 SC Last administered on 04/28/17 17:27; Admin Dose 1 UNIT; Start 04/20/17 at 00 :00 Insulin Glargine (Lantus) 14 unit QHS SC Last administered on 04/28/17 21:31; Admin Dose 14 UNIT; Start 04/20/17 at 21:00 Metronidazole (Flagyl) 500 mg Q8 PO Last administered on 04/28/17 21:28; Admin Dose 500 MG; Start 04/22/17 at 22:00 Metoprolol Tartrate (Lopressor) 25 mg BID PO Last administered on 04/28/17 08: 14; Admin Dose 25 MG; Start 04/23/17 at 09:00; Status Future Hold Hydralazine HCl (Apresoline) 25 mg Q8 PO Last administered on 04/28/17 21:29; Admin Dose 25 MG; Start 04/22/17 at 22:00 Hydralazine HCl 10 mg 10 mg Q4H PRN IV SBP>170; Start 04/22/17 at 22:00 Dextrose/Sodium Chloride (D5-1/2ns) 1,000 ml @ 50 mls/hr Q20H IV Last administered on 04/28/17 11:56; Admin Dose 50 MLS/HR; Start 04/26/17 at 04:30 Amlodipine Besylate (Norvasc) 5 mg DAILY GTB ; Start 04/29/17 at 09:00 Nitroglycerin (Nitroglycerin (Sl Tab) 0.4 Mg) 1 tab Q5M PRN SL ANGINA; Start at 18:00 ABBY RAMOS MD Apr 28, 2017 23:19
[2017-04-29] VITALS (10 sets, daily range): BP systolic 113–144; BP diastolic 57–78; PULSE 67–78; RESP 16–18
[2017-04-29] MEDS: Insulin NOVOLOG SS MILD Algorithm (NPO/TPN/ENTERAL FEEDS) SC SCH ×4 (01:06→17:55)
[2017-04-29] MEDS: metroNIDAZOLE 500 MG TAB PO SCH ×3 (05:24→22:00)
[2017-04-29] MEDS: DEXTROSE 5%-0.45% NACL 1,000 ML IV SCH ×2 (06:19→11:59)
[2017-04-29 08:34] LABS: BASOPHIL # 0.1 10^3/ul (0.0-0.1); BASOPHILS % 0.5 % (0.0-2.0); EOSINOPHILS # 0.5 10^3/ul (0.0-0.5); EOSINOPHILS % 3.7 % (0.0-7.0); HEMATOCRIT 25.1 % (42.0-52.0); HEMOGLOBIN 8.1 g/dl (14.0-18.0); LYMPHOCYTES # 1.6 10^3/ul (0.8-2.9); LYMPHOCYTES % 12.1 % (15.0-51.0); MEAN CORPUSCULAR HGB CONC 32.3 g/dl (32.0-37.0); MEAN CORPUSCULAR VOLUME 83.7 fl (82.0-101.0); MEAN PLATELET VOLUME 10.8 fl (7.4-10.4); MONOCYTE # 1.1 10^3/ul (0.3-0.9); MONOCYTES % 7.9 % (0.0-11.0); NEUTROPHILS % 75.1 % (39.0-77.0); PLATELET COUNT 266 10^3/UL (140-415); RED CELL DISTRIBUTION WIDTH 19.9 % (11.5-14.5); WHITE BLOOD COUNT 13.3 10^3/ul (4.8-10.8)
[2017-04-29 08:36] LABS: RETICULOCYTE COUNT % 2.4 % (0.5-1.5)
[2017-04-29] MEDS: AMIODARONE 200 MG TAB GTB SCH (08:54)
[2017-04-29] MEDS: MULTIVITAMINS THERAPEUTIC TAB GTB SCH (08:55)
[2017-04-29] MEDS: AMLODIPINE 5 MG TAB GTB SCH (08:55)
[2017-04-29] MEDS: TAMSULOSIN (SR) 0.4 MG CAP PO SCH (08:55)
[2017-04-29 08:59] LABS: CALCIUM 7.7 mg/dl (8.4-10.2); CREATININE 2.99 mg/dl (0.61-1.24); IRON 33 ug/dl (35-150); POTASSIUM 3.3 mmol/L (3.5-5.1)
[2017-04-29 09:08] LABS: TOTAL IRON BINDING CAPACITY 186 ug/dl (241-421)
--- NOTE | 2017-04-29 10:01 | CONS ---
Date/Time of Note Date/Time of Note DATE: 04/29/17 TIME: 10:01 Assessment/Plan Assessment/Plan Additional Assessment/Plan IMPRESSION: 1. Anemia may be anemia of chronic disease. Rule out gastrointestinal blood loss. 2. Dysphagia status post percutaneous endoscopic gastrostomy. 3. Diabetes mellitus. 4. Cerebrovascular accident. 5. End-stage renal disease, on dialysis. 6. Diabetes mellitus. 7. Legally blind. 8. Status post urinary tract infection. PLAN: At this point is to work him up for the anemia, stool for occult blood, B12, folic acid, and retic count. Consultation Date/Type/Reason Admit Date/Time Apr 17, 2017 at 16:39 Initial Consult Date 04/18/17 Type of Consultation: cardiology Referring Provider: PORTIA OLIVER MD 24 HR Interval Summary Constitutional: no complaints Exam/Review of Systems Vital Signs Vitals Vital Signs Date Time Temp Pulse Resp B/P Pulse Ox O2 Delivery O2 Flow Rate FiO2 04/29/17 08:12 75 04/29/17 07:42 98.4 18 122/59 97 04/25/17 14:00 Room Air Intake and Output 04/28/17 04/28/17 04/29/17 15:00 23:00 07:00 Intake Total 1370 ml 1220 ml Output Total 450 ml 900 ml Balance 920 ml 320 ml Exam Constitutional: alert, oriented, well developed Psych: nl mood/affect, no complaints Head: atraumatic, normocephalic Eyes: EOMI, PERRL, nl conjunctiva, nl lids, nl sclera ENMT: nl external ears & nose, nl lips & teeth, nl nasal mucosa & septum Neck: non-tender, supple Respiratory: clear to auscultation, normal air movement Cardiovascular: nl pulses, regular rate and rhythm Gastrointestinal: nl liver, spleen, non-tender, soft Musculoskeletal: nl extremities to inspection, nl gait and stance Extremities: normal pulses Neurological: PULMONARY CARE NURSE II-XII intact, nl mental status, nl speech, nl strength Skin: nl turgor, No rash or lesions Lymph: nl lymph nodes Results Result Diagram: 04/29/17 0818 04/29/17 0818 Results 24 hrs Laboratory Tests Test 04/28/17 11:53 04/28/17 16:14 04/28/17 16:44 04/28/17 17:01 Bedside Glucose 144 159 Thyroid Stimulating Hormone (TSH) 2.210 Troponin I 0.040 Test 04/28/17 22:57 04/29/17 00:58 04/29/17 05:36 04/29/17 08:18 Troponin I 0.051 0.063 Bedside Glucose 165 172 White Blood Count 13.3 H Red Blood Count 3.00 L Hemoglobin 8.1 L Hematocrit 25.1 L Mean Corpuscular Volume 83.7 Mean Corpuscular Hemoglobin 27.0 L Mean Corpuscular Hemoglobin Concent 32.3 Red Cell Distribution Width 19.9 H Platelet Count 266 Mean Platelet Volume 10.8 H Neutrophils % 75.1 Lymphocytes % 12.1 L Monocytes % 7.9 Eosinophils % 3.7 Basophils % 0.5 Nucleated Red Blood Cells % 0.0 Neutrophils # (Manual) 10.0 H Lymphocytes # 1.6 Monocytes # 1.1 H Eosinophils # 0.5 Basophils # 0.1 Nucleated Red Blood Cells # 0.0 Absolute Reticulocyte Count 0.070 Percent Reticulocyte Count 2.4 H Sodium Level 132 L Potassium Level 3.3 L Chloride Level 107 Carbon Dioxide Level 20 L Anion Gap 8 Blood Urea Nitrogen 92 H Creatinine 2.99 H Glucose Level 167 Calcium Level 7.7 L Iron Level 33 L Total Iron Binding Capacity 186 L Percent Iron Saturation 18 L Ferritin 271.0 H Vitamin B12 Level Pending Folate Pending Medications Medications Current Medications Acetaminophen (Tylenol Tab) 650 mg Q6H PRN GTB PAIN AND OR ELEVATED TEMP Last administered on 04/26/17 14:25; Admin Dose 650 MG; Start 04/17/17 at 18:00 Amiodarone HCl (Cordarone) 100 mg DAILY GTB Last administered on 04/29/17 08:54 ; Admin Dose 100 MG; Start 04/18/17 at 09:00 Bisacodyl (Dulcolax Supp) 10 mg Q24H [place] Last administered on 04/28/17 18:33; Admin Dose 10 MG; Start 04/17/17 at 18:00 Diphenhydramine HCl (Benadryl) 25 mg Q6H PRN GTB ITCHING Last administered on 21:33; Admin Dose 25 MG; Start 04/17/17 at 18:00 Hydralazine HCl (Apresoline) 50 mg Q8 PRN GTB ELEVATED BLOOD PRESSURE Last administered on 04/18/17 13:18; Admin Dose 50 MG; Start 04/17/17 at 18:00 Multivitamins Therapeutic (Theragran) 1 tab DAILY GTB Last administered on 08:55; Admin Dose 1 TAB; Start 04/18/17 at 09:00 Tamsulosin HCl (Flomax) 0.4 mg DAILY PO Last administered on 04/29/17 08:55; Admin Dose 0.4 MG; Start 04/18/17 at 09:00 Miscellaneous Information 1 ea NOTE XX ; Start 04/17/17 at 21:00 Glucose (Glutose) 15 gm Q15M PRN PO DECREASED GLUCOSE; Start 04/17/17 at 21:00 Glucose (Glutose) 22.5 gm Q15M PRN PO DECREASED GLUCOSE; Start 04/17/17 at 21: 00 Dextrose (D50w Syringe) 25 ml Q15M PRN IV DECREASED GLUCOSE Last administered on 04/20/17 17:22; Admin Dose 25 ML; Start 04/17/17 at 21:00 Dextrose (D50w Syringe) 50 ml Q15M PRN IV DECREASED GLUCOSE; Start 04/17/17 at 21:00 Glucagon (Glucagen) 1 mg Q15M PRN IM DECREASED GLUCOSE; Start 04/17/17 at 21:00 Glucose (Glutose) 15 gm Q15M PRN BUCCAL DECREASED GLUCOSE; Start 04/17/17 at 21 :00 Ondansetron HCl (Zofran Inj) 4 mg Q6H PRN IV NAUSEA AND/OR VOMITING; Start at 00:30 Insulin Aspart (Novolog Insulin Pen) (Adult SC Insulin - Mild Algorithm)... Q6 SC Last administered on 04/29/17 05:45; Admin Dose 1 UNIT; Start 04/20/17 at 00 :00 Insulin Glargine (Lantus) 14 unit QHS SC Last administered on 04/28/17 21:31; Admin Dose 14 UNIT; Start 04/20/17 at 21:00 Metronidazole (Flagyl) 500 mg Q8 PO Last administered on 04/29/17 05:24; Admin Dose 500 MG; Start 04/22/17 at 22:00 Metoprolol Tartrate (Lopressor) 25 mg BID PO Last administered on 04/28/17 08: 14; Admin Dose 25 MG; Start 04/23/17 at 09:00; Status Future Hold Hydralazine HCl (Apresoline) 25 mg Q8 PO Last administered on 04/29/17 05:25; Admin Dose 25 MG; Start 04/22/17 at 22:00 Hydralazine HCl 10 mg 10 mg Q4H PRN IV SBP>170; Start 04/22/17 at 22:00 Dextrose/Sodium Chloride (D5-1/2ns) 1,000 ml @ 50 mls/hr Q20H IV Last administered on 04/29/17 06:19; Admin Dose 50 MLS/HR; Start 04/26/17 at 04:30 Amlodipine Besylate (Norvasc) 5 mg DAILY GTB Last administered on 04/29/17 08: 55; Admin Dose 5 MG; Start 04/29/17 at 09:00 Nitroglycerin (Nitroglycerin (Sl Tab) 0.4 Mg) 1 tab Q5M PRN SL ANGINA; Start at 18:00 JEFRY CERNA MD Apr 29, 2017 10:01
[2017-04-29 10:06] LABS: FOLATE > 20.0 ng/ml (2.8-20.0)
--- NOTE | 2017-04-29 10:30 | CONS ---
Date/Time of Note Date/Time of Note DATE: 04/29/17 TIME: 10:27 Assessment/Plan Assessment/Plan Chief Complaint/Hosp Course IMP: 1.HTN-Now improved and tolerating current medications 2.H/O PAF 3.renal failure 4.dysphagia 5. AMS 6. Heart [id number] HR.improved with holding BB REcc: -Tele -serial ecg's -Continue amio low dose 100 mg as tolerated only -follow rhythm closely -Continue norvasc/hydralazine at current doses -Continue to Hold BB given wenkebach -Follow volume status closely -Ongoing eval of anemia Problems: Consultation Date/Type/Reason Admit Date/Time Apr 17, 2017 at 16:39 Initial Consult Date 04/18/17 Type of Consultation: cardiology Reason for Consultation AF/chest pain Referring Provider: PORTIA OLIVER MD Exam/Review of Systems Vital Signs Vitals Vital Signs Date Time Temp Pulse Resp B/P Pulse Ox O2 Delivery O2 Flow Rate FiO2 04/29/17 08:12 75 04/29/17 07:42 98.4 18 122/59 97 04/25/17 14:00 Room Air Intake and Output 04/28/17 04/28/17 04/29/17 15:00 23:00 07:00 Intake Total 1370 ml 1220 ml Output Total 450 ml 900 ml Balance 920 ml 320 ml Exam Review of Systems: CONSTITUTIONAL: No fevers, chills. PULMONARY: No sob CARDIOVASCULAR: No chest pain/palpitations GASTROINTESTINAL: No nausea/vomiting. GENITOURINARY: No hematuria/dysuria. MUSCULOSKELETAL: No myagias/arthalgias. PSYCHIATRIC: The patient denies depression. NEUROLOGIC: No weakness Constitutional: other (sleeping) ENMT: mucosa pink and moist Neck: jvd (8-9 cm water), supple Respiratory: clear to auscultation Cardiovascular: regular rate and rhythm Gastrointestinal: non-tender, soft Musculoskeletal: muscle weakness (generalized) Extremities: edema (none) Neurological: other (No focal deficits) Results Result Diagram: 04/29/1718 04/29/1718 Results 24 hrs Laboratory Tests Test 04/28/17 11:53 04/28/17 16:14 04/28/17 16:44 04/28/17 17:01 Bedside Glucose 144 159 Thyroid Stimulating Hormone (TSH) 2.210 Troponin I 0.040 Test 04/28/17 22:57 04/29/17 00:58 04/29/17 05:36 04/29/17 08:18 Troponin I 0.051 0.063 Bedside Glucose 165 172 White Blood Count 13.3 H Red Blood Count 3.00 L Hemoglobin 8.1 L Hematocrit 25.1 L Mean Corpuscular Volume 83.7 Mean Corpuscular Hemoglobin 27.0 L Mean Corpuscular Hemoglobin Concent 32.3 Red Cell Distribution Width 19.9 H Platelet Count 266 Mean Platelet Volume 10.8 H Neutrophils % 75.1 Lymphocytes % 12.1 L Monocytes % 7.9 Eosinophils % 3.7 Basophils % 0.5 Nucleated Red Blood Cells % 0.0 Neutrophils # (Manual) 10.0 H Lymphocytes # 1.6 Monocytes # 1.1 H Eosinophils # 0.5 Basophils # 0.1 Nucleated Red Blood Cells # 0.0 Absolute Reticulocyte Count 0.070 Percent Reticulocyte Count 2.4 H Sodium Level 132 L Potassium Level 3.3 L Chloride Level 107 Carbon Dioxide Level 20 L Anion Gap 8 Blood Urea Nitrogen 92 H Creatinine 2.99 H Glucose Level 167 Calcium Level 7.7 L Iron Level 33 L Total Iron Binding Capacity 186 L Percent Iron Saturation 18 L Ferritin 271.0 H Vitamin B12 Level 981 H Folate > 20.0 H Medications Medications Current Medications Acetaminophen (Tylenol Tab) 650 mg Q6H PRN GTB PAIN AND OR ELEVATED TEMP Last administered on 04/26/17 14:25; Admin Dose 650 MG; Start 04/17/17 at 18:00 Amiodarone HCl (Cordarone) 100 mg DAILY GTB Last administered on 04/29/17 08:54 ; Admin Dose 100 MG; Start 04/18/17 at 09:00 Bisacodyl (Dulcolax Supp) 10 mg Q24H [place] Last administered on 04/28/17 18:33; Admin Dose 10 MG; Start 04/17/17 at 18:00 Diphenhydramine HCl (Benadryl) 25 mg Q6H PRN GTB ITCHING Last administered on 21:33; Admin Dose 25 MG; Start 04/17/17 at 18:00 Hydralazine HCl (Apresoline) 50 mg Q8 PRN GTB ELEVATED BLOOD PRESSURE Last administered on 04/18/17 13:18; Admin Dose 50 MG; Start 04/17/17 at 18:00 Multivitamins Therapeutic (Theragran) 1 tab DAILY GTB Last administered on 08:55; Admin Dose 1 TAB; Start 04/18/17 at 09:00 Tamsulosin HCl (Flomax) 0.4 mg DAILY PO Last administered on 04/29/17 08:55; Admin Dose 0.4 MG; Start 04/18/17 at 09:00 Miscellaneous Information 1 ea NOTE XX ; Start 04/17/17 at 21:00 Glucose (Glutose) 15 gm Q15M PRN PO DECREASED GLUCOSE; Start 04/17/17 at 21:00 Glucose (Glutose) 22.5 gm Q15M PRN PO DECREASED GLUCOSE; Start 04/17/17 at 21: 00 Dextrose (D50w Syringe) 25 ml Q15M PRN IV DECREASED GLUCOSE Last administered on 04/20/17 17:22; Admin Dose 25 ML; Start 04/17/17 at 21:00 Dextrose (D50w Syringe) 50 ml Q15M PRN IV DECREASED GLUCOSE; Start 04/17/17 at 21:00 Glucagon (Glucagen) 1 mg Q15M PRN IM DECREASED GLUCOSE; Start 04/17/17 at 21:00 Glucose (Glutose) 15 gm Q15M PRN BUCCAL DECREASED GLUCOSE; Start 04/17/17 at 21 :00 Ondansetron HCl (Zofran Inj) 4 mg Q6H PRN IV NAUSEA AND/OR VOMITING; Start at 00:30 Insulin Aspart (Novolog Insulin Pen) (Adult SC Insulin - Mild Algorithm)... Q6 SC Last administered on 04/29/17 05:45; Admin Dose 1 UNIT; Start 04/20/17 at 00 :00 Insulin Glargine (Lantus) 14 unit QHS SC Last administered on 04/28/17 21:31; Admin Dose 14 UNIT; Start 04/20/17 at 21:00 Metronidazole (Flagyl) 500 mg Q8 PO Last administered on 04/29/17 05:24; Admin Dose 500 MG; Start 04/22/17 at 22:00 Metoprolol Tartrate (Lopressor) 25 mg BID PO Last administered on 04/28/17 08: 14; Admin Dose 25 MG; Start 04/23/17 at 09:00; Status Future Hold Hydralazine HCl (Apresoline) 25 mg Q8 PO Last administered on 04/29/17 05:25; Admin Dose 25 MG; Start 04/22/17 at 22:00 Hydralazine HCl 10 mg 10 mg Q4H PRN IV SBP>170; Start 04/22/17 at 22:00 Dextrose/Sodium Chloride (D5-1/2ns) 1,000 ml @ 50 mls/hr Q20H IV Last administered on 04/29/17 06:19; Admin Dose 50 MLS/HR; Start 04/26/17 at 04:30 Amlodipine Besylate (Norvasc) 5 mg DAILY GTB Last administered on 04/29/17 08: 55; Admin Dose 5 MG; Start 04/29/17 at 09:00 Nitroglycerin (Nitroglycerin (Sl Tab) 0.4 Mg) 1 tab Q5M PRN SL ANGINA; Start at 18:00 LESLI SHEA Apr 29, 2017 10:29
[2017-04-29] MEDS: ACETAMINOPHEN 325 MG TAB GTB PRN (11:59)
[2017-04-29] MEDS ORDERED: POTASSIUM CHLORIDE (SR) 10 MEQ TAB PO ONE (12:30)
--- NOTE | 2017-04-29 12:39 | PN ---
Date/Time of Note Date/Time of Note DATE: 04/29/17 TIME: 12:36 Assessment/Plan VTE Prophylaxis VTE Prophylaxis Intervention: SCD's Lines/Catheters IV Catheter Type (from Nrs): Peripheral IV Urinary Cath still in place: Yes Assessment/Plan Assessment/Plan -Hypokalemia- replace K, BMP am - Anemia- Hgb dropped. - gi CONSULT- Dr CERNA NOTIFIED - Leukocytosis sec to UTI- maira Albicans - -Acute cystitis without hematuria - sp Vanco/Zosyn - fu urine c/s - ID consult- Dr Garcia notified - am labs -Acute weakness sec to Dizziness - cardiology consult - 2D Echo am- LVEF 65% - Electrolyte imbalance- per nephrology - Hyperkalemia- RESOLVED - Hypernatremia - Hyperphosphatemia - Acute renal failure on Chronic Kidney disease - per nephro consult- dr Cheema - Dysphagia - sp PEG placement - aspiration precautions - cont tube feeding - History of paroxysmal atrial fibrillation.- no acute issues. SR at present - Diabetes mellitus. - Glycemic control - Dietary consult - patient relations representative consult - Chronic kidney disease. - History of cerebrovascular accident- no acute issues reported - Hx AMS Plan of care dw Dr Patel/staff Subjective 24 Hr Interval Summary Respiratory: no complaints Cardiovascular: no complaints Gastrointestinal: no complaints Genitourinary: no complaints Musculoskeletal: no complaints Exam/Review of Systems Vital Signs Vitals Vital Signs Date Time Temp Pulse Resp B/P Pulse Ox O2 Delivery O2 Flow Rate FiO2 04/29/17 12:12 78 04/29/17 07:42 98.4 18 122/59 97 04/25/17 14:00 Room Air Intake and Output 04/28/17 04/28/17 04/29/17 15:00 23:00 07:00 Intake Total 1370 ml 1220 ml Output Total 450 ml 900 ml Balance 920 ml 320 ml Exam Constitutional: alert, well developed Cardiovascular: nl pulses, regular rate and rhythm Gastrointestinal: non-tender, soft Musculoskeletal: nl extremities to inspection Extremities: normal pulses Neurological: confused Results Result Diagram: 04/29/17 0818 04/29/17 0818 Results 24 hrs Laboratory Tests Test 04/28/17 16:14 04/28/17 16:44 04/28/17 17:01 04/28/17 22:57 Thyroid Stimulating Hormone (TSH) 2.210 Troponin I 0.040 0.051 Bedside Glucose 159 Test 04/29/17 00:58 04/29/17 05:36 04/29/17 08:18 04/29/17 11:21 Bedside Glucose 165 172 177 White Blood Count 13.3 H Red Blood Count 3.00 L Hemoglobin 8.1 L Hematocrit 25.1 L Mean Corpuscular Volume 83.7 Mean Corpuscular Hemoglobin 27.0 L Mean Corpuscular Hemoglobin Concent 32.3 Red Cell Distribution Width 19.9 H Platelet Count 266 Mean Platelet Volume 10.8 H Neutrophils % 75.1 Lymphocytes % 12.1 L Monocytes % 7.9 Eosinophils % 3.7 Basophils % 0.5 Nucleated Red Blood Cells % 0.0 Neutrophils # (Manual) 10.0 H Lymphocytes # 1.6 Monocytes # 1.1 H Eosinophils # 0.5 Basophils # 0.1 Nucleated Red Blood Cells # 0.0 Absolute Reticulocyte Count 0.070 Percent Reticulocyte Count 2.4 H Sodium Level 132 L Potassium Level 3.3 L Chloride Level 107 Carbon Dioxide Level 20 L Anion Gap 8 Blood Urea Nitrogen 92 H Creatinine 2.99 H Glucose Level 167 Calcium Level 7.7 L Iron Level 33 L Total Iron Binding Capacity 186 L Percent Iron Saturation 18 L Ferritin 271.0 H Troponin I 0.063 Vitamin B12 Level 981 H Folate > 20.0 H Medications Medications Current Medications Acetaminophen (Tylenol Tab) 650 mg Q6H PRN GTB PAIN AND OR ELEVATED TEMP Last administered on 04/29/17 11:59; Admin Dose 650 MG; Start 04/17/17 at 18:00 Amiodarone HCl (Cordarone) 100 mg DAILY GTB Last administered on 04/29/17 08:54 ; Admin Dose 100 MG; Start 04/18/17 at 09:00 Bisacodyl (Dulcolax Supp) 10 mg Q24H [place] Last administered on 04/28/17 18:33; Admin Dose 10 MG; Start 04/17/17 at 18:00 Diphenhydramine HCl (Benadryl) 25 mg Q6H PRN GTB ITCHING Last administered on 21:33; Admin Dose 25 MG; Start 04/17/17 at 18:00 Hydralazine HCl (Apresoline) 50 mg Q8 PRN GTB ELEVATED BLOOD PRESSURE Last administered on 04/18/17 13:18; Admin Dose 50 MG; Start 04/17/17 at 18:00 Multivitamins Therapeutic (Theragran) 1 tab DAILY GTB Last administered on 08:55; Admin Dose 1 TAB; Start 04/18/17 at 09:00 Tamsulosin HCl (Flomax) 0.4 mg DAILY PO Last administered on 04/29/17 08:55; Admin Dose 0.4 MG; Start 04/18/17 at 09:00 Miscellaneous Information 1 ea NOTE XX ; Start 04/17/17 at 21:00 Glucose (Glutose) 15 gm Q15M PRN PO DECREASED GLUCOSE; Start 04/17/17 at 21:00 Glucose (Glutose) 22.5 gm Q15M PRN PO DECREASED GLUCOSE; Start 04/17/17 at 21: 00 Dextrose (D50w Syringe) 25 ml Q15M PRN IV DECREASED GLUCOSE Last administered on 04/20/17 17:22; Admin Dose 25 ML; Start 04/17/17 at 21:00 Dextrose (D50w Syringe) 50 ml Q15M PRN IV DECREASED GLUCOSE; Start 04/17/17 at 21:00 Glucagon (Glucagen) 1 mg Q15M PRN IM DECREASED GLUCOSE; Start 04/17/17 at 21:00 Glucose (Glutose) 15 gm Q15M PRN BUCCAL DECREASED GLUCOSE; Start 04/17/17 at 21 :00 Ondansetron HCl (Zofran Inj) 4 mg Q6H PRN IV NAUSEA AND/OR VOMITING; Start at 00:30 Insulin Aspart (Novolog Insulin Pen) (Adult SC Insulin - Mild Algorithm)... Q6 SC Last administered on 04/29/17 11:44; Admin Dose 1 UNIT; Start 04/20/17 at 00 :00 Insulin Glargine (Lantus) 14 unit QHS SC Last administered on 04/28/17 21:31; Admin Dose 14 UNIT; Start 04/20/17 at 21:00 Metronidazole (Flagyl) 500 mg Q8 PO Last administered on 04/29/17 05:24; Admin Dose 500 MG; Start 04/22/17 at 22:00 Metoprolol Tartrate (Lopressor) 25 mg BID PO Last administered on 04/28/17 08: 14; Admin Dose 25 MG; Start 04/23/17 at 09:00; Status Future Hold Hydralazine HCl (Apresoline) 25 mg Q8 PO Last administered on 04/29/17 05:25; Admin Dose 25 MG; Start 04/22/17 at 22:00 Hydralazine HCl 10 mg 10 mg Q4H PRN IV SBP>170; Start 04/22/17 at 22:00 Dextrose/Sodium Chloride (D5-1/2ns) 1,000 ml @ 50 mls/hr Q20H IV Last administered on 04/29/17 06:19; Admin Dose 50 MLS/HR; Start 04/26/17 at 04:30 Amlodipine Besylate (Norvasc) 5 mg DAILY GTB Last administered on 04/29/17 08: 55; Admin Dose 5 MG; Start 04/29/17 at 09:00 Nitroglycerin (Nitroglycerin (Sl Tab) 0.4 Mg) 1 tab Q5M PRN SL ANGINA; Start at 18:00 Potassium Chloride (Klor-Con 10) 30 meq ONCE ONCE PO ; Start 04/29/17 at 12:30; Stop 04/29/17 at 12:31; Status MARCY VELAZQUEZ Apr 29, 2017 12:39
--- NOTE | 2017-04-29 17:18 | CONS ---
Date/Time of Note Date/Time of Note DATE: 04/29/17 TIME: 17:16 Assessment/Plan Assessment/Plan Chief Complaint/Hosp Course 1.BISI on CKD 2.Hypernatremia better 3.HTN 4 Ecoli UTI 5 Sepsis 6 Chronic Afib 7 CVA s/p G tube placement 8 Renal cyst 9 uremia plan continue same poss q wk hd for uremia/confusion/weakness/malnutrition Problems: Consultation Date/Type/Reason Admit Date/Time Apr 17, 2017 at 16:39 Type of Consultation: renal Referring Provider: PORTIA OLIVER MD 24 HR Interval Summary Constitutional: no complaints Exam/Review of Systems Vital Signs Vitals Vital Signs Date Time Temp Pulse Resp B/P Pulse Ox O2 Delivery O2 Flow Rate FiO2 04/29/17 16:19 68 04/29/17 15:00 98.6 18 113/58 96 04/25/17 14:00 Room Air Intake and Output 04/28/17 04/28/17 04/29/17 15:00 23:00 07:00 Intake Total 1370 ml 1220 ml Output Total 450 ml 900 ml Balance 920 ml 320 ml Exam Respiratory: clear to auscultation Cardiovascular: regular rate and rhythm Gastrointestinal: soft Musculoskeletal: nl extremities to inspection Extremities: normal pulses Results Result Diagram: 04/29/17 0818 04/29/17 0818 Results 24 hrs Laboratory Tests Test 04/28/17 22:57 04/29/17 00:58 04/29/17 05:36 04/29/17 08:18 Troponin I 0.051 0.063 Bedside Glucose 165 172 White Blood Count 13.3 H Red Blood Count 3.00 L Hemoglobin 8.1 L Hematocrit 25.1 L Mean Corpuscular Volume 83.7 Mean Corpuscular Hemoglobin 27.0 L Mean Corpuscular Hemoglobin Concent 32.3 Red Cell Distribution Width 19.9 H Platelet Count 266 Mean Platelet Volume 10.8 H Neutrophils % 75.1 Lymphocytes % 12.1 L Monocytes % 7.9 Eosinophils % 3.7 Basophils % 0.5 Nucleated Red Blood Cells % 0.0 Neutrophils # (Manual) 10.0 H Lymphocytes # 1.6 Monocytes # 1.1 H Eosinophils # 0.5 Basophils # 0.1 Nucleated Red Blood Cells # 0.0 Absolute Reticulocyte Count 0.070 Percent Reticulocyte Count 2.4 H Sodium Level 132 L Potassium Level 3.3 L Chloride Level 107 Carbon Dioxide Level 20 L Anion Gap 8 Blood Urea Nitrogen 92 H Creatinine 2.99 H Glucose Level 167 Calcium Level 7.7 L Iron Level 33 L Total Iron Binding Capacity 186 L Percent Iron Saturation 18 L Ferritin 271.0 H Vitamin B12 Level 981 H Folate > 20.0 H Test 04/29/17 11:21 Bedside Glucose 177 Medications Medications Current Medications Acetaminophen (Tylenol Tab) 650 mg Q6H PRN GTB PAIN AND OR ELEVATED TEMP Last administered on 04/29/17 11:59; Admin Dose 650 MG; Start 04/17/17 at 18:00 Amiodarone HCl (Cordarone) 100 mg DAILY GTB Last administered on 04/29/17 08:54 ; Admin Dose 100 MG; Start 04/18/17 at 09:00 Bisacodyl (Dulcolax Supp) 10 mg Q24H [place] Last administered on 04/28/17 18:33; Admin Dose 10 MG; Start 04/17/17 at 18:00 Diphenhydramine HCl (Benadryl) 25 mg Q6H PRN GTB ITCHING Last administered on 21:33; Admin Dose 25 MG; Start 04/17/17 at 18:00 Hydralazine HCl (Apresoline) 50 mg Q8 PRN GTB ELEVATED BLOOD PRESSURE Last administered on 04/18/17 13:18; Admin Dose 50 MG; Start 04/17/17 at 18:00 Multivitamins Therapeutic (Theragran) 1 tab DAILY GTB Last administered on 08:55; Admin Dose 1 TAB; Start 04/18/17 at 09:00 Tamsulosin HCl (Flomax) 0.4 mg DAILY PO Last administered on 04/29/17 08:55; Admin Dose 0.4 MG; Start 04/18/17 at 09:00 Miscellaneous Information 1 ea NOTE XX ; Start 04/17/17 at 21:00 Glucose (Glutose) 15 gm Q15M PRN PO DECREASED GLUCOSE; Start 04/17/17 at 21:00 Glucose (Glutose) 22.5 gm Q15M PRN PO DECREASED GLUCOSE; Start 04/17/17 at 21: 00 Dextrose (D50w Syringe) 25 ml Q15M PRN IV DECREASED GLUCOSE Last administered on 04/20/17 17:22; Admin Dose 25 ML; Start 04/17/17 at 21:00 Dextrose (D50w Syringe) 50 ml Q15M PRN IV DECREASED GLUCOSE; Start 04/17/17 at 21:00 Glucagon (Glucagen) 1 mg Q15M PRN IM DECREASED GLUCOSE; Start 04/17/17 at 21:00 Glucose (Glutose) 15 gm Q15M PRN BUCCAL DECREASED GLUCOSE; Start 04/17/17 at 21 :00 Ondansetron HCl (Zofran Inj) 4 mg Q6H PRN IV NAUSEA AND/OR VOMITING; Start at 00:30 Insulin Aspart (Novolog Insulin Pen) (Adult SC Insulin - Mild Algorithm)... Q6 SC Last administered on 04/29/17 11:44; Admin Dose 1 UNIT; Start 04/20/17 at 00 :00 Insulin Glargine (Lantus) 14 unit QHS SC Last administered on 04/28/17 21:31; Admin Dose 14 UNIT; Start 04/20/17 at 21:00 Metronidazole (Flagyl) 500 mg Q8 PO Last administered on 04/29/17 13:18; Admin Dose 500 MG; Start 04/22/17 at 22:00 Metoprolol Tartrate (Lopressor) 25 mg BID PO Last administered on 04/28/17 08: 14; Admin Dose 25 MG; Start 04/23/17 at 09:00; Status Future Hold Hydralazine HCl (Apresoline) 25 mg Q8 PO Last administered on 04/29/17 13:19; Admin Dose 25 MG; Start 04/22/17 at 22:00 Hydralazine HCl 10 mg 10 mg Q4H PRN IV SBP>170; Start 04/22/17 at 22:00 Dextrose/Sodium Chloride (D5-1/2ns) 1,000 ml @ 50 mls/hr Q20H IV Last administered on 04/29/17 06:19; Admin Dose 50 MLS/HR; Start 04/26/17 at 04:30 Amlodipine Besylate (Norvasc) 5 mg DAILY GTB Last administered on 04/29/17 08: 55; Admin Dose 5 MG; Start 04/29/17 at 09:00 Nitroglycerin (Nitroglycerin (Sl Tab) 0.4 Mg) 1 tab Q5M PRN SL ANGINA; Start at 18:00 ABBY RAMOS MD Apr 29, 2017 17:18
[2017-04-29] MEDS: BISACODYL 10 MG SUPP PR SCH (17:26)
--- NOTE | 2017-04-29 17:56 | PN ---
DATE: 04/29/2017 SUBJECTIVE DATA: No events overnight. No fevers. The patient is sleeping. LABORATORY AND DIAGNOSTIC DATA: WBC 13.3, no shift, no bands. BUN 92, creatinine 2.99. INDWELLINGS: Flores, PEG. ANTIMICROBIALS: Flagyl. OBJECTIVE DATA: VITAL SIGNS: Stable. Pulse 66, respirations 18, blood pressure 113/58, saturation 906 percent. GENERAL: Fragile, chronically ill-appearing elderly man who is in no distress. HEENT: Head atraumatic, normocephalic. Sclerae anicteric. Buccal mucosa dry. NECK: Supple. CHEST: Rise symmetrical. Breath sounds diminished at the bases. HEART: S1, S2. ABDOMEN: Soft, bowel sounds present. EXTREMITIES: Without cyanosis. ASSESSMENT: 1. Status post urinary tract infection. 2. Status post diarrhea, on empiric Flagyl. 3. Dysphagia. 4. Dementia. 5. [id number] kidney disease. 6. Systemic inflammatory response syndrome. PLAN: Patient remains stable. We are going to keep him on current antimicrobials for a couple more days. Continue anti aspiration measures. Follow recommendations of consultants. Dictated By: Maria Brothers NP /jackelin/cate /Document#: [id number]
[2017-04-29] MEDS: SOD CHLORIDE 0.45% 1,000 ML IV SCH (18:03)
--- NOTE | 2017-04-29 19:35 | RADRPT ---
Vent Rate: 79 bpm RR Interval: 0 msec SD Interval: 296 msec QRS Duration: 134 msec QT Interval: 438 msec QTC Interval: 502 msec P-R-T [place]: 67 - 84 - 40 degrees Sinus rhythm with 1st degree AV block Right bundle branch block Abnormal ECG Electronically Signed By: Feliberto Mcgrath [id number]
[2017-04-29] MEDS: INSULIN GLARGINE [LANtus] 3 ML PEN SC SCH (22:00)
[2017-04-30] VITALS (13 sets, daily range): BP systolic 103–150; BP diastolic 56–72; PULSE 72–85; RESP 17–20
[2017-04-30] MEDS: Insulin NOVOLOG SS MILD Algorithm (NPO/TPN/ENTERAL FEEDS) SC SCH ×4 (00:05→17:32)
[2017-04-30] MEDS: SOD CHLORIDE 0.45% 1,000 ML IV SCH ×2 (04:00→14:43)
[2017-04-30] MEDS: metroNIDAZOLE 500 MG TAB PO SCH ×2 (06:09→14:40)
[2017-04-30 08:06] LABS: BASOPHIL # 0.1 10^3/ul (0.0-0.1); BASOPHILS % 0.9 % (0.0-2.0); EOSINOPHILS # 0.8 10^3/ul (0.0-0.5); EOSINOPHILS % 6.7 % (0.0-7.0); HEMATOCRIT 25.5 % (42.0-52.0); HEMOGLOBIN 8.4 g/dl (14.0-18.0); LYMPHOCYTES # 1.7 10^3/ul (0.8-2.9); LYMPHOCYTES % 14.2 % (15.0-51.0); MEAN CORPUSCULAR HEMOGLOBIN 27.1 pg (29.0-33.0); MEAN CORPUSCULAR HGB CONC 32.9 g/dl (32.0-37.0); MEAN CORPUSCULAR VOLUME 82.3 fl (82.0-101.0); MEAN PLATELET VOLUME 11.4 fl (7.4-10.4); MONOCYTE # 0.9 10^3/ul (0.3-0.9); MONOCYTES % 7.6 % (0.0-11.0); PLATELET COUNT 278 10^3/UL (140-415); RED CELL DISTRIBUTION WIDTH 20.2 % (11.5-14.5)
[2017-04-30 08:40] LABS: CREATININE 2.83 mg/dl (0.61-1.24); POTASSIUM 4.1 mmol/L (3.5-5.1)
[2017-04-30] MEDS: AMLODIPINE 5 MG TAB GTB SCH (09:00)
[2017-04-30] MEDS: AMIODARONE 200 MG TAB GTB SCH (09:08)
[2017-04-30] MEDS: MULTIVITAMINS THERAPEUTIC TAB GTB SCH (09:09)
[2017-04-30] MEDS: TAMSULOSIN (SR) 0.4 MG CAP PO SCH (09:09)
--- NOTE | 2017-04-30 11:56 | CONS ---
Date/Time of Note Date/Time of Note DATE: 04/30/17 TIME: 11:54 Assessment/Plan Assessment/Plan Chief Complaint/Hosp Course 1. CKD, mild 2. Encephalopathy 3. SIRS 4. UTI 5. Dysphagia Problems: Additional Assessment/Plan 1. Continue current regime Consultation Date/Type/Reason Admit Date/Time Apr 17, 2017 at 16:39 Initial Consult Date 04/18/17 Type of Consultation: renal Reason for Consultation Dr Cheema Referring Provider: PORTIA OLIVER MD Exam/Review of Systems Vital Signs Vitals Vital Signs Date Time Temp Pulse Resp B/P Pulse Ox O2 Delivery O2 Flow Rate FiO2 04/30/17 11:26 97.8 67 18 111/65 100 Intake and Output 04/29/17 04/29/17 04/30/17 15:00 23:00 07:00 Intake Total 765 ml 700 ml Output Total 550 ml 1600 ml Balance 215 ml -900 ml Exam Head: normocephalic Neck: supple Respiratory: clear to auscultation Cardiovascular: regular rate and rhythm Gastrointestinal: other (GT) Results Result Diagram: 04/30/17 0723 04/30/17 0723 Results 24 hrs Laboratory Tests Test 04/29/17 17:25 04/29/17 23:41 04/30/17 06:08 04/30/17 07:23 Bedside Glucose 186 165 152 White Blood Count 12.0 H Red Blood Count 3.10 L Hemoglobin 8.4 L Hematocrit 25.5 L Mean Corpuscular Volume 82.3 Mean Corpuscular Hemoglobin 27.1 L Mean Corpuscular Hemoglobin Concent 32.9 Red Cell Distribution Width 20.2 H Platelet Count 278 Mean Platelet Volume 11.4 H Neutrophils % 70.0 Lymphocytes % 14.2 L Monocytes % 7.6 Eosinophils % 6.7 Basophils % 0.9 Nucleated Red Blood Cells % 0.0 Neutrophils # (Manual) 8.4 H Lymphocytes # 1.7 Monocytes # 0.9 Eosinophils # 0.8 H Basophils # 0.1 Nucleated Red Blood Cells # 0.0 Sodium Level 133 L Potassium Level 4.1 Chloride Level 108 Carbon Dioxide Level 19 L Anion Gap 10 Blood Urea Nitrogen 84 H Creatinine 2.83 H Glucose Level 126 # Calcium Level 8.0 L Medications Medications Current Medications Acetaminophen (Tylenol Tab) 650 mg Q6H PRN GTB PAIN AND OR ELEVATED TEMP Last administered on 04/29/17 11:59; Admin Dose 650 MG; Start 04/17/17 at 18:00 Amiodarone HCl (Cordarone) 100 mg DAILY GTB Last administered on 04/30/17 09:08 ; Admin Dose 100 MG; Start 04/18/17 at 09:00 Bisacodyl (Dulcolax Supp) 10 mg Q24H [place] Last administered on 04/29/17 17:26; Admin Dose 10 MG; Start 04/17/17 at 18:00 Diphenhydramine HCl (Benadryl) 25 mg Q6H PRN GTB ITCHING Last administered on 21:33; Admin Dose 25 MG; Start 04/17/17 at 18:00 Hydralazine HCl (Apresoline) 50 mg Q8 PRN GTB ELEVATED BLOOD PRESSURE Last administered on 04/18/17 13:18; Admin Dose 50 MG; Start 04/17/17 at 18:00 Multivitamins Therapeutic (Theragran) 1 tab DAILY GTB Last administered on 09:09; Admin Dose 1 TAB; Start 04/18/17 at 09:00 Tamsulosin HCl (Flomax) 0.4 mg DAILY PO Last administered on 04/30/17 09:09; Admin Dose 0.4 MG; Start 04/18/17 at 09:00 Miscellaneous Information 1 ea NOTE XX ; Start 04/17/17 at 21:00 Glucose (Glutose) 15 gm Q15M PRN PO DECREASED GLUCOSE; Start 04/17/17 at 21:00 Glucose (Glutose) 22.5 gm Q15M PRN PO DECREASED GLUCOSE; Start 04/17/17 at 21: 00 Dextrose (D50w Syringe) 25 ml Q15M PRN IV DECREASED GLUCOSE Last administered on 04/20/17 17:22; Admin Dose 25 ML; Start 04/17/17 at 21:00 Dextrose (D50w Syringe) 50 ml Q15M PRN IV DECREASED GLUCOSE; Start 04/17/17 at 21:00 Glucagon (Glucagen) 1 mg Q15M PRN IM DECREASED GLUCOSE; Start 04/17/17 at 21:00 Glucose (Glutose) 15 gm Q15M PRN BUCCAL DECREASED GLUCOSE; Start 04/17/17 at 21 :00 Ondansetron HCl (Zofran Inj) 4 mg Q6H PRN IV NAUSEA AND/OR VOMITING; Start at 00:30 Insulin Aspart (Novolog Insulin Pen) (Adult SC Insulin - Mild Algorithm)... Q6 SC Last administered on 04/30/17 06:15; Admin Dose 1 UNIT; Start 04/20/17 at 00 :00 Insulin Glargine (Lantus) 14 unit QHS SC Last administered on 04/29/17 22:00; Admin Dose 14 UNIT; Start 04/20/17 at 21:00 Metronidazole (Flagyl) 500 mg Q8 PO Last administered on 04/30/17 06:09; Admin Dose 500 MG; Start 04/22/17 at 22:00 Metoprolol Tartrate (Lopressor) 25 mg BID PO Last administered on 04/28/17 08: 14; Admin Dose 25 MG; Start 04/23/17 at 09:00; Status Future Hold Hydralazine HCl (Apresoline) 25 mg Q8 PO Last administered on 04/30/17 06:09; Admin Dose 25 MG; Start 04/22/17 at 22:00 Hydralazine HCl (Apresoline) 10 mg Q4H PRN IV SBP>170; Start 04/22/17 at 22:00 Amlodipine Besylate (Norvasc) 5 mg DAILY GTB Last administered on 04/29/17 08: 55; Admin Dose 5 MG; Start 04/29/17 at 09:00 Nitroglycerin 1 tab 1 tab Q5M PRN SL ANGINA; Start 04/28/17 at 18:00 Sodium Chloride (1/2 NS) 1,000 ml @ 100 mls/hr Q10H IV Last administered on 04:00; Admin Dose 100 MLS/HR; Start 04/29/17 at 18:00 CHELSIE HERNÁNDEZ Apr 30, 2017 11:56
--- NOTE | 2017-04-30 15:57 | CONS ---
Date/Time of Note Date/Time of Note DATE: 04/30/17 TIME: 15:54 Assessment/Plan Assessment/Plan Chief Complaint/Hosp Course IMP: 1.HTN-Now improved and tolerating current medications 2.H/O PAF-IN SR at this time 3.renal failure 4.dysphagia 5. AMS 6. Heart iyfrj-[id number] HR.improved with holding BB 7. Chest pain-resolved/negative troponin/no change on serial ecg 8. Occasional PVC's REcc: -Tele -serial ecg's -Continue amio low dose 100 mg as tolerated only -follow rhythm closely -Continue norvasc/hydralazine at current doses -Continue to Hold BB given wenkebach -Follow volume status closely -Ongoing eval of anemia Problems: Consultation Date/Type/Reason Admit Date/Time Apr 17, 2017 at 16:39 Initial Consult Date 04/18/17 Type of Consultation: cardiology Reason for Consultation AF Referring Provider: PORTIA OLIVER MD Exam/Review of Systems Vital Signs Vitals Vital Signs Date Time Temp Pulse Resp B/P Pulse Ox O2 Delivery O2 Flow Rate FiO2 04/30/17 15:27 97.8 77 18 135/63 97 Intake and Output 04/29/17 04/29/17 04/30/17 15:00 23:00 07:00 Intake Total 765 ml 700 ml Output Total 550 ml 1600 ml Balance 215 ml -900 ml Exam Review of Systems: CONSTITUTIONAL: No fevers, chills. PULMONARY: No sob CARDIOVASCULAR: No chest pain/palpitations GASTROINTESTINAL: No nausea/vomiting. GENITOURINARY: No hematuria/dysuria. MUSCULOSKELETAL: No myagias/arthalgias. PSYCHIATRIC: The patient denies depression. NEUROLOGIC: lethargic, non-communicative Constitutional: other (sleeping) Head: normocephalic ENMT: mucosa pink and moist Neck: jvd (8 cm water), supple Respiratory: diminished breath sounds (at bases/B) Cardiovascular: irregular rhythm Gastrointestinal: non-tender, soft Musculoskeletal: muscle weakness (generalized) Extremities: edema (none) Neurological: lethargic Results Result Diagram: 04/30/17 0723 04/30/17 0723 Results 24 hrs Laboratory Tests Test 04/29/17 17:25 04/29/17 23:41 04/30/17 06:08 04/30/17 07:23 Bedside Glucose 186 165 152 White Blood Count 12.0 H Red Blood Count 3.10 L Hemoglobin 8.4 L Hematocrit 25.5 L Mean Corpuscular Volume 82.3 Mean Corpuscular Hemoglobin 27.1 L Mean Corpuscular Hemoglobin Concent 32.9 Red Cell Distribution Width 20.2 H Platelet Count 278 Mean Platelet Volume 11.4 H Neutrophils % 70.0 Lymphocytes % 14.2 L Monocytes % 7.6 Eosinophils % 6.7 Basophils % 0.9 Nucleated Red Blood Cells % 0.0 Neutrophils # (Manual) 8.4 H Lymphocytes # 1.7 Monocytes # 0.9 Eosinophils # 0.8 H Basophils # 0.1 Nucleated Red Blood Cells # 0.0 Sodium Level 133 L Potassium Level 4.1 Chloride Level 108 Carbon Dioxide Level 19 L Anion Gap 10 Blood Urea Nitrogen 84 H Creatinine 2.83 H Glucose Level 126 # Calcium Level 8.0 L Test 04/30/17 12:01 Bedside Glucose 180 Medications Medications Current Medications Acetaminophen (Tylenol Tab) 650 mg Q6H PRN GTB PAIN AND OR ELEVATED TEMP Last administered on 04/29/17 11:59; Admin Dose 650 MG; Start 04/17/17 at 18:00 Amiodarone HCl (Cordarone) 100 mg DAILY GTB Last administered on 04/30/17 09:08 ; Admin Dose 100 MG; Start 04/18/17 at 09:00 Bisacodyl (Dulcolax Supp) 10 mg Q24H [place] Last administered on 04/29/17 17:26; Admin Dose 10 MG; Start 04/17/17 at 18:00 Diphenhydramine HCl (Benadryl) 25 mg Q6H PRN GTB ITCHING Last administered on 21:33; Admin Dose 25 MG; Start 04/17/17 at 18:00 Hydralazine HCl (Apresoline) 50 mg Q8 PRN GTB ELEVATED BLOOD PRESSURE Last administered on 04/18/17 13:18; Admin Dose 50 MG; Start 04/17/17 at 18:00 Multivitamins Therapeutic (Theragran) 1 tab DAILY GTB Last administered on 09:09; Admin Dose 1 TAB; Start 04/18/17 at 09:00 Tamsulosin HCl (Flomax) 0.4 mg DAILY PO Last administered on 04/30/17 09:09; Admin Dose 0.4 MG; Start 04/18/17 at 09:00 Miscellaneous Information 1 ea NOTE XX ; Start 04/17/17 at 21:00 Glucose (Glutose) 15 gm Q15M PRN PO DECREASED GLUCOSE; Start 04/17/17 at 21:00 Glucose (Glutose) 22.5 gm Q15M PRN PO DECREASED GLUCOSE; Start 04/17/17 at 21: 00 Dextrose (D50w Syringe) 25 ml Q15M PRN IV DECREASED GLUCOSE Last administered on 04/20/17 17:22; Admin Dose 25 ML; Start 04/17/17 at 21:00 Dextrose (D50w Syringe) 50 ml Q15M PRN IV DECREASED GLUCOSE; Start 04/17/17 at 21:00 Glucagon (Glucagen) 1 mg Q15M PRN IM DECREASED GLUCOSE; Start 04/17/17 at 21:00 Glucose (Glutose) 15 gm Q15M PRN BUCCAL DECREASED GLUCOSE; Start 04/17/17 at 21 :00 Ondansetron HCl (Zofran Inj) 4 mg Q6H PRN IV NAUSEA AND/OR VOMITING; Start at 00:30 Insulin Aspart (Novolog Insulin Pen) (Adult SC Insulin - Mild Algorithm)... Q6 SC Last administered on 04/30/17 12:13; Admin Dose 1 UNIT; Start 04/20/17 at 00 :00 Insulin Glargine (Lantus) 14 unit QHS SC Last administered on 04/29/17 22:00; Admin Dose 14 UNIT; Start 04/20/17 at 21:00 Metronidazole (Flagyl) 500 mg Q8 PO Last administered on 04/30/17 14:40; Admin Dose 500 MG; Start 04/22/17 at 22:00 Metoprolol Tartrate (Lopressor) 25 mg BID PO Last administered on 04/28/17 08: 14; Admin Dose 25 MG; Start 04/23/17 at 09:00; Status Future Hold Hydralazine HCl (Apresoline) 25 mg Q8 PO Last administered on 04/30/17 14:41; Admin Dose 25 MG; Start 04/22/17 at 22:00 Hydralazine HCl (Apresoline) 10 mg Q4H PRN IV SBP>170; Start 04/22/17 at 22:00 Amlodipine Besylate (Norvasc) 5 mg DAILY GTB Last administered on 04/29/17 08: 55; Admin Dose 5 MG; Start 04/29/17 at 09:00 Nitroglycerin 1 tab 1 tab Q5M PRN SL ANGINA; Start 04/28/17 at 18:00 Sodium Chloride (1/2 NS) 1,000 ml @ 100 mls/hr Q10H IV Last administered on 14:43; Admin Dose 100 MLS/HR; Start 04/29/17 at 18:00 LESLI SHEA Apr 30, 2017 15:56
--- NOTE | 2017-04-30 16:13 | CONS ---
Date/Time of Note Date/Time of Note DATE: 04/30/17 TIME: 16:12 Assessment/Plan Assessment/Plan Chief Complaint/Hosp Course SUBJECTIVE DATA: No events overnight. No fevers. Sleping, looks comfortable INDWELLINGS: Flores, PEG. ANTIMICROBIALS: Flagyl. OBJECTIVE DATA: VITAL SIGNS: Stable. Pulse 66, respirations 18, blood pressure 113/58, saturation 906 percent. GENERAL: Fragile, chronically ill-appearing elderly man who is in no distress. HEENT: Head atraumatic, normocephalic. Sclerae anicteric. Buccal mucosa dry. NECK: Supple. CHEST: Rise symmetrical. Breath sounds diminished at the bases. HEART: S1, S2. ABDOMEN: Soft, bowel sounds present. EXTREMITIES: Without cyanosis. ASSESSMENT: 1. Status post urinary tract infection. 2. Status post diarrhea, on empiric Flagyl. 3. Dysphagia. 4. Dementia. 5. Lrlst-iz-ddrbgaj kidney disease. 6. Systemic inflammatory response syndrome. PLAN: Patient remains stable. Dc Flagyl, continue aspiration precautions, repeat cx's prn Problems: Consultation Date/Type/Reason Admit Date/Time Apr 17, 2017 at 16:39 Initial Consult Date 04/18/17 Type of Consultation: id Referring Provider: PORTIA OLIVER MD Exam/Review of Systems Vital Signs Vitals Vital Signs Date Time Temp Pulse Resp B/P Pulse Ox O2 Delivery O2 Flow Rate FiO2 04/30/17 16:08 80 04/30/17 15:27 97.8 18 135/63 97 Intake and Output 04/29/17 04/29/17 04/30/17 15:00 23:00 07:00 Intake Total 765 ml 700 ml Output Total 550 ml 1600 ml Balance 215 ml -900 ml Results Result Diagram: 04/30/17 0723 04/30/17 0723 Results 24 hrs Laboratory Tests Test 04/29/17 17:25 04/29/17 23:41 04/30/17 06:08 04/30/17 07:23 Bedside Glucose 186 165 152 White Blood Count 12.0 H Red Blood Count 3.10 L Hemoglobin 8.4 L Hematocrit 25.5 L Mean Corpuscular Volume 82.3 Mean Corpuscular Hemoglobin 27.1 L Mean Corpuscular Hemoglobin Concent 32.9 Red Cell Distribution Width 20.2 H Platelet Count 278 Mean Platelet Volume 11.4 H Neutrophils % 70.0 Lymphocytes % 14.2 L Monocytes % 7.6 Eosinophils % 6.7 Basophils % 0.9 Nucleated Red Blood Cells % 0.0 Neutrophils # (Manual) 8.4 H Lymphocytes # 1.7 Monocytes # 0.9 Eosinophils # 0.8 H Basophils # 0.1 Nucleated Red Blood Cells # 0.0 Sodium Level 133 L Potassium Level 4.1 Chloride Level 108 Carbon Dioxide Level 19 L Anion Gap 10 Blood Urea Nitrogen 84 H Creatinine 2.83 H Glucose Level 126 # Calcium Level 8.0 L Test 04/30/17 12:01 Bedside Glucose 180 Medications Medications Current Medications Acetaminophen (Tylenol Tab) 650 mg Q6H PRN GTB PAIN AND OR ELEVATED TEMP Last administered on 04/29/17 11:59; Admin Dose 650 MG; Start 04/17/17 at 18:00 Amiodarone HCl (Cordarone) 100 mg DAILY GTB Last administered on 04/30/17 09:08 ; Admin Dose 100 MG; Start 04/18/17 at 09:00 Bisacodyl (Dulcolax Supp) 10 mg Q24H [place] Last administered on 04/29/17 17:26; Admin Dose 10 MG; Start 04/17/17 at 18:00 Diphenhydramine HCl (Benadryl) 25 mg Q6H PRN GTB ITCHING Last administered on 21:33; Admin Dose 25 MG; Start 04/17/17 at 18:00 Hydralazine HCl (Apresoline) 50 mg Q8 PRN GTB ELEVATED BLOOD PRESSURE Last administered on 04/18/17 13:18; Admin Dose 50 MG; Start 04/17/17 at 18:00 Multivitamins Therapeutic (Theragran) 1 tab DAILY GTB Last administered on 09:09; Admin Dose 1 TAB; Start 04/18/17 at 09:00 Tamsulosin HCl (Flomax) 0.4 mg DAILY PO Last administered on 04/30/17 09:09; Admin Dose 0.4 MG; Start 04/18/17 at 09:00 Miscellaneous Information 1 ea NOTE XX ; Start 04/17/17 at 21:00 Glucose (Glutose) 15 gm Q15M PRN PO DECREASED GLUCOSE; Start 04/17/17 at 21:00 Glucose (Glutose) 22.5 gm Q15M PRN PO DECREASED GLUCOSE; Start 04/17/17 at 21: 00 Dextrose (D50w Syringe) 25 ml Q15M PRN IV DECREASED GLUCOSE Last administered on 04/20/17 17:22; Admin Dose 25 ML; Start 04/17/17 at 21:00 Dextrose (D50w Syringe) 50 ml Q15M PRN IV DECREASED GLUCOSE; Start 04/17/17 at 21:00 Glucagon (Glucagen) 1 mg Q15M PRN IM DECREASED GLUCOSE; Start 04/17/17 at 21:00 Glucose (Glutose) 15 gm Q15M PRN BUCCAL DECREASED GLUCOSE; Start 04/17/17 at 21 :00 Ondansetron HCl (Zofran Inj) 4 mg Q6H PRN IV NAUSEA AND/OR VOMITING; Start at 00:30 Insulin Aspart (Novolog Insulin Pen) (Adult SC Insulin - Mild Algorithm)... Q6 SC Last administered on 04/30/17 12:13; Admin Dose 1 UNIT; Start 04/20/17 at 00 :00 Insulin Glargine (Lantus) 14 unit QHS SC Last administered on 04/29/17 22:00; Admin Dose 14 UNIT; Start 04/20/17 at 21:00 Metronidazole (Flagyl) 500 mg Q8 PO Last administered on 04/30/17 14:40; Admin Dose 500 MG; Start 04/22/17 at 22:00 Metoprolol Tartrate (Lopressor) 25 mg BID PO Last administered on 04/28/17 08: 14; Admin Dose 25 MG; Start 04/23/17 at 09:00; Status Future Hold Hydralazine HCl (Apresoline) 25 mg Q8 PO Last administered on 04/30/17 14:41; Admin Dose 25 MG; Start 04/22/17 at 22:00 Hydralazine HCl (Apresoline) 10 mg Q4H PRN IV SBP>170; Start 04/22/17 at 22:00 Nitroglycerin 1 tab 1 tab Q5M PRN SL ANGINA; Start 04/28/17 at 18:00 Sodium Chloride (1/2 NS) 1,000 ml @ 100 mls/hr Q10H IV Last administered on 14:43; Admin Dose 100 MLS/HR; Start 04/29/17 at 18:00 Amlodipine Besylate (Norvasc) 2.5 mg DAILY GTB ; Start 05/01/17 at 09:00 KAYLA CASTREJON NP Apr 30, 2017 16:13
[2017-04-30] MEDS: BISACODYL 10 MG SUPP PR SCH (17:19)
--- NOTE | 2017-04-30 17:29 | CONS ---
Date/Time of Note Date/Time of Note DATE: 04/30/17 TIME: 17:28 Assessment/Plan Assessment/Plan Additional Assessment/Plan Additional Assessment/Plan IMPRESSION: 1. Anemia may be anemia of chronic disease. Rule out gastrointestinal blood loss. 2. Dysphagia status post percutaneous endoscopic gastrostomy. 3. Diabetes mellitus. 4. Cerebrovascular accident. 5. End-stage renal disease, on dialysis. 6. Diabetes mellitus. 7. Legally blind. 8. Status post urinary tract infection. PLAN: work him up for the anemia, stool for occult blood, B12, folic acid, and retic count Consultation Date/Type/Reason Admit Date/Time Apr 17, 2017 at 16:39 Initial Consult Date 04/18/17 Type of Consultation: id Referring Provider: PORTIA OLIVER MD 24 HR Interval Summary Constitutional: no complaints Exam/Review of Systems Vital Signs Vitals Vital Signs Date Time Temp Pulse Resp B/P Pulse Ox O2 Delivery O2 Flow Rate FiO2 04/30/17 16:08 80 04/30/17 15:27 97.8 18 135/63 97 Intake and Output 04/29/17 04/29/17 04/30/17 15:00 23:00 07:00 Intake Total 765 ml 700 ml Output Total 550 ml 1600 ml Balance 215 ml -900 ml Exam Constitutional: alert, oriented, well developed Psych: nl mood/affect, no complaints Head: atraumatic, normocephalic Eyes: EOMI, PERRL, nl conjunctiva, nl lids, nl sclera ENMT: nl external ears & nose, nl lips & teeth, nl nasal mucosa & septum Neck: non-tender, supple Respiratory: clear to auscultation, normal air movement Cardiovascular: nl pulses, regular rate and rhythm Gastrointestinal: nl liver, spleen, non-tender, soft Musculoskeletal: nl extremities to inspection, nl gait and stance Extremities: normal pulses 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, nl mental status, nl speech, nl strength Skin: nl turgor, No rash or lesions Lymph: nl lymph nodes Results Result Diagram: 04/30/17 0723 04/30/17 0723 Results 24 hrs Laboratory Tests Test 04/29/17 23:41 04/30/17 06:08 04/30/17 07:23 04/30/17 12:01 Bedside Glucose 165 152 180 White Blood Count 12.0 H Red Blood Count 3.10 L Hemoglobin 8.4 L Hematocrit 25.5 L Mean Corpuscular Volume 82.3 Mean Corpuscular Hemoglobin 27.1 L Mean Corpuscular Hemoglobin Concent 32.9 Red Cell Distribution Width 20.2 H Platelet Count 278 Mean Platelet Volume 11.4 H Neutrophils % 70.0 Lymphocytes % 14.2 L Monocytes % 7.6 Eosinophils % 6.7 Basophils % 0.9 Nucleated Red Blood Cells % 0.0 Neutrophils # (Manual) 8.4 H Lymphocytes # 1.7 Monocytes # 0.9 Eosinophils # 0.8 H Basophils # 0.1 Nucleated Red Blood Cells # 0.0 Sodium Level 133 L Potassium Level 4.1 Chloride Level 108 Carbon Dioxide Level 19 L Anion Gap 10 Blood Urea Nitrogen 84 H Creatinine 2.83 H Glucose Level 126 # Calcium Level 8.0 L Test 04/30/17 17:23 Bedside Glucose 209 Medications Medications Current Medications Acetaminophen (Tylenol Tab) 650 mg Q6H PRN GTB PAIN AND OR ELEVATED TEMP Last administered on 04/29/17 11:59; Admin Dose 650 MG; Start 04/17/17 at 18:00 Amiodarone HCl (Cordarone) 100 mg DAILY GTB Last administered on 04/30/17 09:08 ; Admin Dose 100 MG; Start 04/18/17 at 09:00 Bisacodyl (Dulcolax Supp) [address] Last administered on 04/29/17 17:26; Admin Dose 10 MG; Start 04/17/17 at 18:00 Diphenhydramine HCl (Benadryl) 25 mg Q6H PRN GTB ITCHING Last administered on 21:33; Admin Dose 25 MG; Start 04/17/17 at 18:00 Hydralazine HCl (Apresoline) 50 mg Q8 PRN GTB ELEVATED BLOOD PRESSURE Last administered on 04/18/17 13:18; Admin Dose 50 MG; Start 04/17/17 at 18:00 Multivitamins Therapeutic (Theragran) 1 tab DAILY GTB Last administered on 09:09; Admin Dose 1 TAB; Start 04/18/17 at 09:00 Tamsulosin HCl (Flomax) 0.4 mg DAILY PO Last administered on 04/30/17 09:09; Admin Dose 0.4 MG; Start 04/18/17 at 09:00 Miscellaneous Information 1 ea NOTE XX ; Start 04/17/17 at 21:00 Glucose (Glutose) 15 gm Q15M PRN PO DECREASED GLUCOSE; Start 04/17/17 at 21:00 Glucose (Glutose) 22.5 gm Q15M PRN PO DECREASED GLUCOSE; Start 04/17/17 at 21: 00 Dextrose (D50w Syringe) 25 ml Q15M PRN IV DECREASED GLUCOSE Last administered on 04/20/17 17:22; Admin Dose 25 ML; Start 04/17/17 at 21:00 Dextrose (D50w Syringe) 50 ml Q15M PRN IV DECREASED GLUCOSE; Start 04/17/17 at 21:00 Glucagon (Glucagen) 1 mg Q15M PRN IM DECREASED GLUCOSE; Start 04/17/17 at 21:00 Glucose (Glutose) 15 gm Q15M PRN BUCCAL DECREASED GLUCOSE; Start 04/17/17 at 21 :00 Ondansetron HCl (Zofran Inj) 4 mg Q6H PRN IV NAUSEA AND/OR VOMITING; Start at 00:30 Insulin Aspart (Novolog Insulin Pen) (Adult SC Insulin - Mild Algorithm)... Q6 SC Last administered on 04/30/17 12:13; Admin Dose 1 UNIT; Start 04/20/17 at 00 :00 Insulin Glargine (Lantus) 14 unit QHS SC Last administered on 04/29/17 22:00; Admin Dose 14 UNIT; Start 04/20/17 at 21:00 Metoprolol Tartrate (Lopressor) 25 mg BID PO Last administered on 04/28/17 08: 14; Admin Dose 25 MG; Start 04/23/17 at 09:00; Status Future Hold Hydralazine HCl (Apresoline) 25 mg Q8 PO Last administered on 04/30/17 14:41; Admin Dose 25 MG; Start 04/22/17 at 22:00 Hydralazine HCl (Apresoline) 10 mg Q4H PRN IV SBP>170; Start 04/22/17 at 22:00 Nitroglycerin 1 tab 1 tab Q5M PRN SL ANGINA; Start 04/28/17 at 18:00 Sodium Chloride (1/2 NS) 1,000 ml @ 100 mls/hr Q10H IV Last administered on t 14:43; Admin Dose 100 MLS/HR; Start 04/29/17 at 18:00 Amlodipine Besylate (Norvasc) 2.5 mg DAILY GTB ; Start 05/01/17 at 09:00 JEFRY CERNA MD Apr 30, 2017 17:29
[2017-04-30] MEDS: INSULIN GLARGINE [LANtus] 3 ML PEN SC SCH (20:59)
[2017-05-01] VITALS (11 sets, daily range): BP systolic 139–158; BP diastolic 60–67; PULSE 79–85; RESP 20
[2017-05-01] MEDS: SOD CHLORIDE 0.45% 1,000 ML IV SCH ×3 (00:32→21:01)
[2017-05-01] MEDS: Insulin NOVOLOG SS MILD Algorithm (NPO/TPN/ENTERAL FEEDS) SC SCH ×5 (06:00→23:55)
[2017-05-01] MEDS: DIPHENHYDRAMINE 25 MG CAP GTB PRN (06:37)
[2017-05-01] MEDS: MULTIVITAMINS THERAPEUTIC TAB GTB SCH (08:23)
[2017-05-01] MEDS: AMIODARONE 200 MG TAB GTB SCH (08:24)
[2017-05-01] MEDS: TAMSULOSIN (SR) 0.4 MG CAP PO SCH (08:25)
[2017-05-01] MEDS: AMLODIPINE 2.5 MG TAB GTB SCH (08:25)
[2017-05-01 09:50] LABS: FOLATE > 20.0 ng/ml (2.8-20.0)
--- NOTE | 2017-05-01 12:41 | CONS ---
Date/Time of Note Date/Time of Note DATE: 05/01/17 TIME: 12:41 Assessment/Plan Assessment/Plan Additional Assessment/Plan IMPRESSION: 1. Anemia may be anemia of chronic disease. Rule out gastrointestinal blood loss. 2. Dysphagia status post percutaneous endoscopic gastrostomy. 3. Diabetes mellitus. 4. Cerebrovascular accident. 5. End-stage renal disease, on dialysis. 6. Diabetes mellitus. 7. Legally blind. 8. Status post urinary tract infection. PLAN: work him up for the anemia, stool for occult blood, B12, folic acid, and retic count all within normal limit but it appears this is anemia of chronic disease Stool for occult blood is pending Consultation Date/Type/Reason Admit Date/Time Apr 17, 2017 at 16:39 Initial Consult Date 04/18/17 Type of Consultation: id Referring Provider: PORTIA OLIVER MD 24 HR Interval Summary Constitutional: no complaints Exam/Review of Systems Vital Signs Vitals Vital Signs Date Time Temp Pulse Resp B/P Pulse Ox O2 Delivery O2 Flow Rate FiO2 05/01/17 12:07 83 05/01/17 11:26 98.1 20 158/67 99 Intake and Output 04/30/17 04/30/17 05/01/17 14:59 22:59 06:59 Intake Total 1000 ml 1330 ml 2116 ml Output Total 1100 ml 1400 ml Balance 1000 ml 230 ml 716 ml Exam Constitutional: alert, oriented, well developed Psych: nl mood/affect, no complaints Head: atraumatic, normocephalic Eyes: EOMI, PERRL, nl conjunctiva, nl lids, nl sclera ENMT: nl external ears & nose, nl lips & teeth, nl nasal mucosa & septum Neck: non-tender, supple Respiratory: clear to auscultation, normal air movement Cardiovascular: nl pulses, regular rate and rhythm Gastrointestinal: nl liver, spleen, non-tender, soft Musculoskeletal: nl extremities to inspection, nl gait and stance Extremities: normal pulses Neurological: 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-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 intact, nl mental status, nl speech, nl strength Skin: nl turgor, No rash or lesions Lymph: nl lymph nodes Results Result Diagram: 04/30/17 0723 04/30/17 0723 Results 24 hrs Laboratory Tests Test 04/30/17 17:23 04/30/17 17:30 04/30/17 20:57 05/01/17 00:33 Bedside Glucose 209 195 139 Stool Occult Blood NEGATIVE Test 05/01/17 06:20 05/01/17 07:55 05/01/17 11:53 Bedside Glucose 128 170 Ferritin 251.0 Vitamin B12 Level > 1000 H Folate > 20.0 H Medications Medications Current Medications Acetaminophen (Tylenol Tab) 650 mg Q6H PRN GTB PAIN AND OR ELEVATED TEMP Last administered on 04/29/17 11:59; Admin Dose 650 MG; Start 04/17/17 at 18:00 Amiodarone HCl (Cordarone) 100 mg DAILY GTB Last administered on 05/01/17 08:24 ; Admin Dose 100 MG; Start 04/18/17 at 09:00 Bisacodyl (Dulcolax Supp) 10 mg Q24H [place] Last administered on 04/30/17 17:19; Admin Dose 10 MG; Start 04/17/17 at 18:00 Diphenhydramine HCl (Benadryl) 25 mg Q6H PRN GTB ITCHING Last administered on 06:37; Admin Dose 25 MG; Start 04/17/17 at 18:00 Hydralazine HCl (Apresoline) 50 mg Q8 PRN GTB ELEVATED BLOOD PRESSURE Last administered on 04/18/17 13:18; Admin Dose 50 MG; Start 04/17/17 at 18:00 Multivitamins Therapeutic (Theragran) 1 tab DAILY GTB Last administered on 08:23; Admin Dose 1 TAB; Start 04/18/17 at 09:00 Tamsulosin HCl (Flomax) 0.4 mg DAILY PO Last administered on 05/01/17 08:25; Admin Dose 0.4 MG; Start 04/18/17 at 09:00 Miscellaneous Information 1 ea NOTE XX ; Start 04/17/17 at 21:00 Glucose (Glutose) 15 gm Q15M PRN PO DECREASED GLUCOSE; Start 04/17/17 at 21:00 Glucose (Glutose) 22.5 gm Q15M PRN PO DECREASED GLUCOSE; Start 04/17/17 at 21: 00 Dextrose (D50w Syringe) 25 ml Q15M PRN IV DECREASED GLUCOSE Last administered on 04/20/17 17:22; Admin Dose 25 ML; Start 04/17/17 at 21:00 Dextrose (D50w Syringe) 50 ml Q15M PRN IV DECREASED GLUCOSE; Start 04/17/17 at 21:00 Glucagon (Glucagen) 1 mg Q15M PRN IM DECREASED GLUCOSE; Start 04/17/17 at 21:00 Glucose (Glutose) 15 gm Q15M PRN BUCCAL DECREASED GLUCOSE; Start 04/17/17 at 21 :00 Ondansetron HCl (Zofran Inj) 4 mg Q6H PRN IV NAUSEA AND/OR VOMITING; Start at 00:30 Insulin Aspart (Novolog Insulin Pen) (Adult SC Insulin - Mild Algorithm)... Q6 SC Last administered on 05/01/17 12:03; Admin Dose 1 UNIT; Start 04/20/17 at 00 :00 Insulin Glargine (Lantus) 14 unit QHS SC Last administered on 04/30/17 20:59; Admin Dose 14 UNIT; Start 04/20/17 at 21:00 Metoprolol Tartrate (Lopressor) 25 mg BID PO Last administered on 04/28/17 08: 14; Admin Dose 25 MG; Start 04/23/17 at 09:00; Status Future Hold Hydralazine HCl (Apresoline) 25 mg Q8 PO Last administered on 05/01/17 06:18; Admin Dose 25 MG; Start 04/22/17 at 22:00 Hydralazine HCl (Apresoline) 10 mg Q4H PRN IV SBP>170; Start 04/22/17 at 22:00 Nitroglycerin 1 tab 1 tab Q5M PRN SL ANGINA; Start 04/28/17 at 18:00 Sodium Chloride (1/2 NS) 1,000 ml @ 100 mls/hr Q10H IV Last administered on 10:56; Admin Dose 100 MLS/HR; Start 04/29/17 at 18:00 Amlodipine Besylate (Norvasc) 2.5 mg DAILY GTB Last administered on 05/01/17 08 :25; Admin Dose 2.5 MG; Start 05/01/17 at 09:00 JEFRY CERNA MD May 01, 2017 12:41
--- NOTE | 2017-05-01 14:11 | CONS ---
Date/Time of Note Date/Time of Note DATE: 05/01/17 TIME: 14:09 Assessment/Plan Assessment/Plan Chief Complaint/Hosp Course 1. CKD, mild 2. Encephalopathy 3. SIRS 4. UTI 5. Dysphagia Problems: Additional Assessment/Plan 1. continue tube feeding 2. BMP now to determine pt electrolyte balance Consultation Date/Type/Reason Admit Date/Time Apr 17, 2017 at 16:39 Initial Consult Date 04/18/17 Type of Consultation: nephrology Reason for Consultation dr Cheema Referring Provider: PORTIA OLIVER MD Exam/Review of Systems Vital Signs Vitals Vital Signs Date Time Temp Pulse Resp B/P Pulse Ox O2 Delivery O2 Flow Rate FiO2 05/01/17 12:07 83 05/01/17 11:26 98.1 20 158/67 99 Intake and Output 04/30/17 04/30/17 05/01/17 15:00 23:00 07:00 Intake Total 1000 ml 1330 ml 2116 ml Output Total 1100 ml 1400 ml Balance 1000 ml 230 ml 716 ml Exam Constitutional: other (confused) Head: atraumatic, normocephalic Neck: supple Respiratory: diminished breath sounds Cardiovascular: regular rate and rhythm Gastrointestinal: soft Genitourinary - Male: nl penis Results Result Diagram: 04/30/17 0723 04/30/17 0723 Results 24 hrs Laboratory Tests Test 04/30/17 17:23 04/30/17 17:30 04/30/17 20:57 05/01/17 00:33 Bedside Glucose 209 195 139 Stool Occult Blood NEGATIVE Test 05/01/17 06:20 05/01/17 07:55 05/01/17 11:53 Bedside Glucose 128 170 Ferritin 251.0 Vitamin B12 Level > 1000 H Folate > 20.0 H Medications Medications Current Medications Acetaminophen (Tylenol Tab) 650 mg Q6H PRN GTB PAIN AND OR ELEVATED TEMP Last administered on 04/29/17 11:59; Admin Dose 650 MG; Start 04/17/17 at 18:00 Amiodarone HCl (Cordarone) 100 mg DAILY GTB Last administered on 05/01/17 08:24 ; Admin Dose 100 MG; Start 04/18/17 at 09:00 Bisacodyl (Dulcolax Supp) 10 mg Q24H [place] Last administered on 04/30/17 17:19; Admin Dose 10 MG; Start 04/17/17 at 18:00 Diphenhydramine HCl (Benadryl) 25 mg Q6H PRN GTB ITCHING Last administered on 06:37; Admin Dose 25 MG; Start 04/17/17 at 18:00 Hydralazine HCl (Apresoline) 50 mg Q8 PRN GTB ELEVATED BLOOD PRESSURE Last administered on 04/18/17 13:18; Admin Dose 50 MG; Start 04/17/17 at 18:00 Multivitamins Therapeutic (Theragran) 1 tab DAILY GTB Last administered on 08:23; Admin Dose 1 TAB; Start 04/18/17 at 09:00 Tamsulosin HCl (Flomax) 0.4 mg DAILY PO Last administered on 05/01/17 08:25; Admin Dose 0.4 MG; Start 04/18/17 at 09:00 Miscellaneous Information 1 ea NOTE XX ; Start 04/17/17 at 21:00 Glucose (Glutose) 15 gm Q15M PRN PO DECREASED GLUCOSE; Start 04/17/17 at 21:00 Glucose (Glutose) 22.5 gm Q15M PRN PO DECREASED GLUCOSE; Start 04/17/17 at 21: 00 Dextrose (D50w Syringe) 25 ml Q15M PRN IV DECREASED GLUCOSE Last administered on 04/20/17 17:22; Admin Dose 25 ML; Start 04/17/17 at 21:00 Dextrose (D50w Syringe) 50 ml Q15M PRN IV DECREASED GLUCOSE; Start 04/17/17 at 21:00 Glucagon (Glucagen) 1 mg Q15M PRN IM DECREASED GLUCOSE; Start 04/17/17 at 21:00 Glucose (Glutose) 15 gm Q15M PRN BUCCAL DECREASED GLUCOSE; Start 04/17/17 at 21 :00 Ondansetron HCl (Zofran Inj) 4 mg Q6H PRN IV NAUSEA AND/OR VOMITING; Start at 00:30 Insulin Aspart (Novolog Insulin Pen) (Adult SC Insulin - Mild Algorithm)... Q6 SC Last administered on 05/01/17 12:03; Admin Dose 1 UNIT; Start 04/20/17 at 00 :00 Insulin Glargine (Lantus) 14 unit QHS SC Last administered on 04/30/17 20:59; Admin Dose 14 UNIT; Start 04/20/17 at 21:00 Metoprolol Tartrate (Lopressor) 25 mg BID PO Last administered on 04/28/17 08: 14; Admin Dose 25 MG; Start 04/23/17 at 09:00; Status Future Hold Hydralazine HCl (Apresoline) 25 mg Q8 PO Last administered on 05/01/17 13:35; Admin Dose 25 MG; Start 04/22/17 at 22:00 Hydralazine HCl (Apresoline) 10 mg Q4H PRN IV SBP>170; Start 04/22/17 at 22:00 Nitroglycerin 1 tab 1 tab Q5M PRN SL ANGINA; Start 04/28/17 at 18:00 Sodium Chloride (1/2 NS) 1,000 ml @ 100 mls/hr Q10H IV Last administered on 10:56; Admin Dose 100 MLS/HR; Start 04/29/17 at 18:00 Amlodipine Besylate (Norvasc) 2.5 mg DAILY GTB Last administered on 05/01/17 08 :25; Admin Dose 2.5 MG; Start 05/01/17 at 09:00 CHELSIE HERNÁNDEZ May 01, 2017 14:11
[2017-05-01 15:13] LABS: CALCIUM 7.9 mg/dl (8.4-10.2); CREATININE 2.54 mg/dl (0.61-1.24)
--- NOTE | 2017-05-01 15:52 | CONS ---
Date/Time of Note Date/Time of Note DATE: 05/01/17 TIME: 15:48 Assessment/Plan Assessment/Plan Additional Assessment/Plan Atypical chest pain Heart block Mobitz 1 now in first degree heart block PAF in NSR Hypertension Renal failure Dysphagia Avoid AV Annette Medications Stopped amiodarone Continue Hydralazine Continue Norvasc Continue Insulin Consultation Date/Type/Reason Admit Date/Time Apr 17, 2017 at 16:39 Constitutional: no complaints Respiratory: no complaints Cardiovascular: no complaints Gastrointestinal: no complaints Genitourinary: no complaints Musculoskeletal: no complaints Psychological: nl mood/affect, no complaints Past Surgical History Past Surgical Hx: noncontributory Social History Alcohol Use: none Smoking Status: Never smoker Drug Use: none Exam/Review of Systems Vital Signs Vitals Vital Signs Date Time Temp Pulse Resp B/P Pulse Ox O2 Delivery O2 Flow Rate FiO2 05/01/17 12:07 83 05/01/17 11:26 98.1 20 158/67 99 Intake and Output 04/30/17 04/30/17 05/01/17 15:00 23:00 07:00 Intake Total 1000 ml 1330 ml 2116 ml Output Total 1100 ml 1400 ml Balance 1000 ml 230 ml 716 ml Exam Constitutional: non-verbal Head: atraumatic, normocephalic Neck: non-tender, supple Respiratory: clear to auscultation Cardiovascular: regular rate and rhythm Gastrointestinal: nl liver, spleen, non-tender, soft Extremities: normal pulses Results Result Diagram: 04/30/17 0723 05/01/17 1449 Results 24 hrs Laboratory Tests Test 04/30/17 17:23 04/30/17 17:30 04/30/17 20:57 05/01/17 00:33 Bedside Glucose 209 195 139 Stool Occult Blood NEGATIVE Test 05/01/17 06:20 05/01/17 07:55 05/01/17 11:53 05/01/17 14:49 Bedside Glucose 128 170 Ferritin 251.0 Vitamin B12 Level > 1000 H Folate > 20.0 H Sodium Level 131 L Potassium Level 5.0 Chloride Level 107 Carbon Dioxide Level 22 Anion Gap 7 L Blood Urea Nitrogen 74 H Creatinine 2.54 H Glucose Level 166 Calcium Level 7.9 L Medications Medications Current Medications Acetaminophen (Tylenol Tab) 650 mg Q6H PRN GTB PAIN AND OR ELEVATED TEMP Last administered on 04/29/17 11:59; Admin Dose 650 MG; Start 04/17/17 at 18:00 Amiodarone HCl (Cordarone) 100 mg DAILY GTB Last administered on 05/01/17 08:24 ; Admin Dose 100 MG; Start 04/18/17 at 09:00 Bisacodyl (Dulcolax Supp) 10 mg Q24H [place] Last administered on 04/30/17 17:19; Admin Dose 10 MG; Start 04/17/17 at 18:00 Diphenhydramine HCl (Benadryl) 25 mg Q6H PRN GTB ITCHING Last administered on 06:37; Admin Dose 25 MG; Start 04/17/17 at 18:00 Hydralazine HCl (Apresoline) 50 mg Q8 PRN GTB ELEVATED BLOOD PRESSURE Last administered on 04/18/17 13:18; Admin Dose 50 MG; Start 04/17/17 at 18:00 Multivitamins Therapeutic (Theragran) 1 tab DAILY GTB Last administered on 08:23; Admin Dose 1 TAB; Start 04/18/17 at 09:00 Tamsulosin HCl (Flomax) 0.4 mg DAILY PO Last administered on 05/01/17 08:25; Admin Dose 0.4 MG; Start 04/18/17 at 09:00 Miscellaneous Information 1 ea NOTE XX ; Start 04/17/17 at 21:00 Glucose (Glutose) 15 gm Q15M PRN PO DECREASED GLUCOSE; Start 04/17/17 at 21:00 Glucose (Glutose) 22.5 gm Q15M PRN PO DECREASED GLUCOSE; Start 04/17/17 at 21: 00 Dextrose (D50w Syringe) 25 ml Q15M PRN IV DECREASED GLUCOSE Last administered on 04/20/17 17:22; Admin Dose 25 ML; Start 04/17/17 at 21:00 Dextrose (D50w Syringe) 50 ml Q15M PRN IV DECREASED GLUCOSE; Start 04/17/17 at 21:00 Glucagon (Glucagen) 1 mg Q15M PRN IM DECREASED GLUCOSE; Start 04/17/17 at 21:00 Glucose (Glutose) 15 gm Q15M PRN BUCCAL DECREASED GLUCOSE; Start 04/17/17 at 21 :00 Ondansetron HCl (Zofran Inj) 4 mg Q6H PRN IV NAUSEA AND/OR VOMITING; Start at 00:30 Insulin Aspart (Novolog Insulin Pen) (Adult SC Insulin - Mild Algorithm)... Q6 SC Last administered on 05/01/17 12:03; Admin Dose 1 UNIT; Start 04/20/17 at 00 :00 Insulin Glargine (Lantus) 14 unit QHS SC Last administered on 04/30/17 20:59; Admin Dose 14 UNIT; Start 04/20/17 at 21:00 Metoprolol Tartrate (Lopressor) 25 mg BID PO Last administered on 04/28/17 08: 14; Admin Dose 25 MG; Start 04/23/17 at 09:00; Status Future Hold Hydralazine HCl (Apresoline) 25 mg Q8 PO Last administered on 05/01/17 13:35; Admin Dose 25 MG; Start 04/22/17 at 22:00 Hydralazine HCl (Apresoline) 10 mg Q4H PRN IV SBP>170; Start 04/22/17 at 22:00 Nitroglycerin 1 tab 1 tab Q5M PRN SL ANGINA; Start 04/28/17 at 18:00 Sodium Chloride (1/2 NS) 1,000 ml @ 100 mls/hr Q10H IV Last administered on 10:56; Admin Dose 100 MLS/HR; Start 04/29/17 at 18:00 Amlodipine Besylate (Norvasc) 2.5 mg DAILY GTB Last administered on 05/01/17 08 :25; Admin Dose 2.5 MG; Start 05/01/17 at 09:00 MARIA ALEJANDRA BEAL M.D. May 01, 2017 15:52
[2017-05-01] MEDS: BISACODYL 10 MG SUPP PR SCH (17:36)
--- NOTE | 2017-05-01 20:25 | PN ---
Date/Time of Note Date/Time of Note DATE: 05/01/17 TIME: 20:23 Assessment/Plan VTE Prophylaxis VTE Prophylaxis Intervention: SCD's Lines/Catheters IV Catheter Type (from Nrs): Saline Lock Urinary Cath still in place: Yes Assessment/Plan Assessment/Plan - Anemia- Hgb dropped. - per gi CONSULT - Leukocytosis sec to UTI- maira Albicans - -Acute cystitis without hematuria - sp Vanco/Zosyn - fu urine c/s - ID consult- Dr Garcia notified - am labs -Acute weakness sec to Dizziness - cardiology consult - 2D Echo am- LVEF 65% - Electrolyte imbalance- per nephrology - Hyperkalemia- RESOLVED - Hypernatremia - Hyperphosphatemia - Acute renal failure on Chronic Kidney disease - per nephro consult- dr Cheema - Dysphagia - sp PEG placement - aspiration precautions - cont tube feeding - History of paroxysmal atrial fibrillation.- no acute issues. SR at present - Diabetes mellitus. - Glycemic control - Dietary consult - ict teacher consult - Chronic kidney disease. - History of cerebrovascular accident- no acute issues reported - Hx AMS Placement pending, Plan of care dw Dr Patel/staff Exam/Review of Systems Vital Signs Vitals Vital Signs Date Time Temp Pulse Resp B/P Pulse Ox O2 Delivery O2 Flow Rate FiO2 05/01/17 20:06 81 05/01/17 19:57 98.9 20 147/67 97 Intake and Output 04/30/17 04/30/17 05/01/17 15:00 23:00 07:00 Intake Total 1000 ml 1330 ml 2116 ml Output Total 1100 ml 1400 ml Balance 1000 ml 230 ml 716 ml Exam Constitutional: alert, well developed Respiratory: clear to auscultation, normal air movement Cardiovascular: nl pulses, other (SR with Fisr degree/ [place]), regular rate and rhythm Gastrointestinal: soft Extremities: normal pulses Neurological: nl speech Results Result Diagram: 04/30/17 0723 05/01/17 1449 Results 24 hrs Laboratory Tests Test 04/30/17 20:57 05/01/17 00:33 05/01/17 06:20 05/01/17 07:55 Bedside Glucose 195 139 128 Ferritin 251.0 Vitamin B12 Level > 1000 H Folate > 20.0 H Test 05/01/17 11:53 05/01/17 14:49 05/01/17 17:34 Bedside Glucose 170 183 Sodium Level 131 L Potassium Level 5.0 Chloride Level 107 Carbon Dioxide Level 22 Anion Gap 7 L Blood Urea Nitrogen 74 H Creatinine 2.54 H Glucose Level 166 Calcium Level 7.9 L Medications Medications Current Medications Acetaminophen (Tylenol Tab) 650 mg Q6H PRN GTB PAIN AND OR ELEVATED TEMP Last administered on 04/29/17 11:59; Admin Dose 650 MG; Start 04/17/17 at 18:00 Bisacodyl (Dulcolax Supp) 10 mg Q24H [place] Last administered on 05/01/17 17:36; Admin Dose 10 MG; Start 04/17/17 at 18:00 Diphenhydramine HCl (Benadryl) 25 mg Q6H PRN GTB ITCHING Last administered on 06:37; Admin Dose 25 MG; Start 04/17/17 at 18:00 Hydralazine HCl (Apresoline) 50 mg Q8 PRN GTB ELEVATED BLOOD PRESSURE Last administered on 04/18/17 13:18; Admin Dose 50 MG; Start 04/17/17 at 18:00 Multivitamins Therapeutic (Theragran) 1 tab DAILY GTB Last administered on 08:23; Admin Dose 1 TAB; Start 04/18/17 at 09:00 Miscellaneous Information 1 ea NOTE XX ; Start 04/17/17 at 21:00 Glucose (Glutose) 15 gm Q15M PRN PO DECREASED GLUCOSE; Start 04/17/17 at 21:00 Glucose (Glutose) 22.5 gm Q15M PRN PO DECREASED GLUCOSE; Start 04/17/17 at 21: 00 Dextrose (D50w Syringe) 25 ml Q15M PRN IV DECREASED GLUCOSE Last administered on 04/20/17 17:22; Admin Dose 25 ML; Start 04/17/17 at 21:00 Dextrose (D50w Syringe) 50 ml Q15M PRN IV DECREASED GLUCOSE; Start 04/17/17 at 21:00 Glucagon (Glucagen) 1 mg Q15M PRN IM DECREASED GLUCOSE; Start 04/17/17 at 21:00 Glucose (Glutose) 15 gm Q15M PRN BUCCAL DECREASED GLUCOSE; Start 04/17/17 at 21 :00 Ondansetron HCl (Zofran Inj) 4 mg Q6H PRN IV NAUSEA AND/OR VOMITING; Start at 00:30 Insulin Aspart (Novolog Insulin Pen) (Adult SC Insulin - Mild Algorithm)... Q6 SC Last administered on 05/01/17 17:36; Admin Dose 2 UNIT; Start 04/20/17 at 00 :00 Insulin Glargine (Lantus) 14 unit QHS SC Last administered on 04/30/17 20:59; Admin Dose 14 UNIT; Start 04/20/17 at 21:00 Metoprolol Tartrate (Lopressor) 25 mg BID PO Last administered on 04/28/17 08: 14; Admin Dose 25 MG; Start 04/23/17 at 09:00; Status Future Hold Hydralazine HCl (Apresoline) 25 mg Q8 PO Last administered on 05/01/17 13:35; Admin Dose 25 MG; Start 04/22/17 at 22:00 Hydralazine HCl (Apresoline) 10 mg Q4H PRN IV SBP>170; Start 04/22/17 at 22:00 Nitroglycerin 1 tab 1 tab Q5M PRN SL ANGINA; Start 04/28/17 at 18:00 Sodium Chloride (1/2 NS) 1,000 ml @ 100 mls/hr Q10H IV Last administered on 10:56; Admin Dose 100 MLS/HR; Start 04/29/17 at 18:00 Amlodipine Besylate (Norvasc) 2.5 mg DAILY GTB Last administered on 05/01/17 08 :25; Admin Dose 2.5 MG; Start 05/01/17 at 09:00 MARCY WEINER May 01, 2017 20:25
[2017-05-01] MEDS: INSULIN GLARGINE [LANtus] 3 ML PEN SC SCH (21:08)
[2017-05-02] VITALS (12 sets, daily range): BP systolic 150–180; BP diastolic 65–76; PULSE 79–90; RESP 18–22
[2017-05-02] MEDS: SOD CHLORIDE 0.45% 1,000 ML IV SCH ×2 (05:41→16:00)
[2017-05-02] MEDS: Insulin NOVOLOG SS MILD Algorithm (NPO/TPN/ENTERAL FEEDS) SC SCH ×3 (05:53→17:36)
[2017-05-02] MEDS: MULTIVITAMINS THERAPEUTIC TAB GTB SCH (08:19)
[2017-05-02] MEDS: AMLODIPINE 2.5 MG TAB GTB SCH (08:19)
--- NOTE | 2017-05-02 10:54 | PN ---
Date/Time of Note Date/Time of Note DATE: 05/02/17 TIME: 10:54 Assessment/Plan Lines/Catheters IV Catheter Type (from Nrs): Peripheral IV Urinary Cath still in place: Yes Assessment/Plan Assessment/Plan - Anemia- Hgb dropped. - per gi CONSULT - Leukocytosis sec to UTI- maira Albicans - -Acute cystitis without hematuria - sp Vanco/Zosyn - fu urine c/s - ID consult- Dr Garcia notified - am labs -Acute weakness sec to Dizziness - cardiology consult - 2D Echo am- LVEF 65% - Electrolyte imbalance- per nephrology - Hyperkalemia- RESOLVED - Hypernatremia - Hyperphosphatemia - Acute renal failure on Chronic Kidney disease - per nephro consult- dr Cheema - Dysphagia - sp PEG placement - aspiration precautions - cont tube feeding - History of paroxysmal atrial fibrillation.- no acute issues. SR at present - Diabetes mellitus. - Glycemic control - Dietary consult - family living educator consult - Chronic kidney disease. - History of cerebrovascular accident- no acute issues reported - Hx AMS Placement pending, Plan of care dw Dr Patel/staff Subjective 24 Hr Interval Summary Respiratory: no complaints Cardiovascular: no complaints Gastrointestinal: no complaints Exam/Review of Systems Vital Signs Vitals Vital Signs Date Time Temp Pulse Resp B/P Pulse Ox O2 Delivery O2 Flow Rate FiO2 05/02/17 08:24 98.5 88 20 153/67 98 Intake and Output 05/01/17 05/01/17 05/02/17 15:00 23:00 07:00 Intake Total 2125 ml 1830 ml Output Total 1500 ml 1350 ml Balance 625 ml 480 ml Exam Constitutional: alert, well developed Cardiovascular: nl pulses, regular rate and rhythm Gastrointestinal: non-tender, soft Musculoskeletal: nl extremities to inspection Extremities: normal pulses Neurological: nl speech Results Result Diagram: 04/30/17 0723 05/01/17 1449 Results 24 hrs Laboratory Tests Test 05/01/17 11:53 05/01/17 14:49 05/01/17 17:34 05/01/17 21:05 Bedside Glucose 170 183 202 Sodium Level 131 L Potassium Level 5.0 Chloride Level 107 Carbon Dioxide Level 22 Anion Gap 7 L Blood Urea Nitrogen 74 H Creatinine 2.54 H Glucose Level 166 Calcium Level 7.9 L Test 05/01/17 23:53 05/02/17 05:42 05/02/17 08:17 Bedside Glucose 190 165 167 Medications Medications Current Medications Acetaminophen (Tylenol Tab) 650 mg Q6H PRN GTB PAIN AND OR ELEVATED TEMP Last administered on 04/29/17 11:59; Admin Dose 650 MG; Start 04/17/17 at 18:00 Bisacodyl (Dulcolax Supp) 10 mg Q24H [place] Last administered on 05/01/17 17:36; Admin Dose 10 MG; Start 04/17/17 at 18:00 Diphenhydramine HCl (Benadryl) 25 mg Q6H PRN GTB ITCHING Last administered on 06:37; Admin Dose 25 MG; Start 04/17/17 at 18:00 Hydralazine HCl (Apresoline) 50 mg Q8 PRN GTB ELEVATED BLOOD PRESSURE Last administered on 04/18/17 13:18; Admin Dose 50 MG; Start 04/17/17 at 18:00 Multivitamins Therapeutic (Theragran) 1 tab DAILY GTB Last administered on 05/02 08:19; Admin Dose 1 TAB; Start 04/18/17 at 09:00 Miscellaneous Information 1 ea NOTE XX ; Start 04/17/17 at 21:00 Glucose (Glutose) 15 gm Q15M PRN PO DECREASED GLUCOSE; Start 04/17/17 at 21:00 Glucose (Glutose) 22.5 gm Q15M PRN PO DECREASED GLUCOSE; Start 04/17/17 at 21: 00 Dextrose (D50w Syringe) 25 ml Q15M PRN IV DECREASED GLUCOSE Last administered on 04/20/17 17:22; Admin Dose 25 ML; Start 04/17/17 at 21:00 Dextrose (D50w Syringe) 50 ml Q15M PRN IV DECREASED GLUCOSE; Start 04/17/17 at 21:00 Glucagon (Glucagen) 1 mg Q15M PRN IM DECREASED GLUCOSE; Start 04/17/17 at 21:00 Glucose (Glutose) 15 gm Q15M PRN BUCCAL DECREASED GLUCOSE; Start 04/17/17 at 21 :00 Ondansetron HCl (Zofran Inj) 4 mg Q6H PRN IV NAUSEA AND/OR VOMITING; Start at 00:30 Insulin Aspart (Novolog Insulin Pen) (Adult SC Insulin - Mild Algorithm)... Q6 SC Last administered on 05/02/17 05:53; Admin Dose 1 UNIT; Start 04/20/17 at 00:00 Insulin Glargine (Lantus) 14 unit QHS SC Last administered on 05/01/17 21:08; Admin Dose 14 UNIT; Start 04/20/17 at 21:00 Metoprolol Tartrate (Lopressor) 25 mg BID PO Last administered on 04/28/17 08: 14; Admin Dose 25 MG; Start 04/23/17 at 09:00; Status Future Hold Hydralazine HCl (Apresoline) 25 mg Q8 PO Last administered on 05/02/17 05:42; Admin Dose 25 MG; Start 04/22/17 at 22:00 Hydralazine HCl (Apresoline) 10 mg Q4H PRN IV SBP>170; Start 04/22/17 at 22:00 Nitroglycerin 1 tab 1 tab Q5M PRN SL ANGINA; Start 04/28/17 at 18:00 Sodium Chloride (1/2 NS) 1,000 ml @ 100 mls/hr Q10H IV Last administered on 05:41; Admin Dose 100 MLS/HR; Start 04/29/17 at 18:00 Amlodipine Besylate (Norvasc) 2.5 mg DAILY GTB Last administered on 05/02/17 08:19; Admin Dose 2.5 MG; Start 05/01/17 at 09:00 MARCY WEINER May 02, 2017 10:54
--- NOTE | 2017-05-02 13:09 | CONS ---
Date/Time of Note Date/Time of Note DATE: 05/02/17 TIME: 13:07 Assessment/Plan Assessment/Plan Additional Assessment/Plan Atypical chest pain Heart block Mobitz 1 now in first degree heart block PAF in NSR Hypertension Stroke Diabetes Renal failure Dysphagia Avoid AV Annette Medications Started on Eliquis, closely monitor H &H ( CHADS2 score 4) Stopped amiodarone Continue Hydralazine Continue Norvasc Continue Insulin Consultation Date/Type/Reason Admit Date/Time Apr 17, 2017 at 16:39 Initial Consult Date 04/18/17 Type of Consultation: nephrology Referring Provider: PORTIA OLIVER MD Exam/Review of Systems Vital Signs Vitals Vital Signs Date Time Temp Pulse Resp B/P Pulse Ox O2 Delivery O2 Flow Rate FiO2 05/02/17 12:26 97.8 82 18 150/65 98 Intake and Output 05/01/17 05/01/17 05/02/17 15:00 23:00 07:00 Intake Total 2125 ml 1830 ml Output Total 1500 ml 1350 ml Balance 625 ml 480 ml Exam Constitutional: alert Head: atraumatic, normocephalic Neck: non-tender, supple Respiratory: clear to auscultation Cardiovascular: regular rate and rhythm Gastrointestinal: nl liver, spleen, non-tender, soft Extremities: normal pulses Results Result Diagram: 04/30/17 0723 05/01/17 1449 Results 24 hrs Laboratory Tests Test 05/01/17 14:49 05/01/17 17:34 05/01/17 21:05 05/01/17 23:53 Sodium Level 131 L Potassium Level 5.0 Chloride Level 107 Carbon Dioxide Level 22 Anion Gap 7 L Blood Urea Nitrogen 74 H Creatinine 2.54 H Glucose Level 166 Calcium Level 7.9 L Bedside Glucose 183 202 190 Test 05/02/17 05:42 05/02/17 08:17 05/02/17 12:14 Bedside Glucose 165 167 193 Medications Medications Current Medications Acetaminophen (Tylenol Tab) 650 mg Q6H PRN GTB PAIN AND OR ELEVATED TEMP Last administered on 04/29/17 11:59; Admin Dose 650 MG; Start 04/17/17 at 18:00 Bisacodyl (Dulcolax Supp) [address] Last administered on 05/01/17 17:36; Admin Dose 10 MG; Start 04/17/17 at 18:00 Diphenhydramine HCl (Benadryl) 25 mg Q6H PRN GTB ITCHING Last administered on 06:37; Admin Dose 25 MG; Start 04/17/17 at 18:00 Hydralazine HCl (Apresoline) 50 mg Q8 PRN GTB ELEVATED BLOOD PRESSURE Last administered on 04/18/17 13:18; Admin Dose 50 MG; Start 04/17/17 at 18:00 Multivitamins Therapeutic (Theragran) 1 tab DAILY GTB Last administered on 05/02 08:19; Admin Dose 1 TAB; Start 04/18/17 at 09:00 Miscellaneous Information 1 ea NOTE XX ; Start 04/17/17 at 21:00 Glucose (Glutose) 15 gm Q15M PRN PO DECREASED GLUCOSE; Start 04/17/17 at 21:00 Glucose (Glutose) 22.5 gm Q15M PRN PO DECREASED GLUCOSE; Start 04/17/17 at 21: 00 Dextrose (D50w Syringe) 25 ml Q15M PRN IV DECREASED GLUCOSE Last administered on 04/20/17 17:22; Admin Dose 25 ML; Start 04/17/17 at 21:00 Dextrose (D50w Syringe) 50 ml Q15M PRN IV DECREASED GLUCOSE; Start 04/17/17 at 21:00 Glucagon (Glucagen) 1 mg Q15M PRN IM DECREASED GLUCOSE; Start 04/17/17 at 21:00 Glucose (Glutose) 15 gm Q15M PRN BUCCAL DECREASED GLUCOSE; Start 04/17/17 at 21 :00 Ondansetron HCl (Zofran Inj) 4 mg Q6H PRN IV NAUSEA AND/OR VOMITING; Start at 00:30 Insulin Aspart (Novolog Insulin Pen) (Adult SC Insulin - Mild Algorithm)... Q6 SC Last administered on 05/02/17 12:18; Admin Dose 2 UNIT; Start 04/20/17 at 00:00 Insulin Glargine (Lantus) 14 unit QHS SC Last administered on 05/01/17 21:08; Admin Dose 14 UNIT; Start 04/20/17 at 21:00 Metoprolol Tartrate (Lopressor) 25 mg BID PO Last administered on 04/28/17 08: 14; Admin Dose 25 MG; Start 04/23/17 at 09:00; Status Future Hold Hydralazine HCl (Apresoline) 25 mg Q8 PO Last administered on 05/02/17 05:42; Admin Dose 25 MG; Start 04/22/17 at 22:00 Hydralazine HCl (Apresoline) 10 mg Q4H PRN IV SBP>170; Start 04/22/17 at 22:00 Nitroglycerin 1 tab 1 tab Q5M PRN SL ANGINA; Start 04/28/17 at 18:00 Sodium Chloride (1/2 NS) 1,000 ml @ 100 mls/hr Q10H IV Last administered on 05:41; Admin Dose 100 MLS/HR; Start 04/29/17 at 18:00 Amlodipine Besylate (Norvasc) 2.5 mg DAILY GTB Last administered on 05/02/17 08:19; Admin Dose 2.5 MG; Start 05/01/17 at 09:00 MARIA ALEJANDRA BEAL M.D. May 02, 2017 13:09
[2017-05-02] MEDS: APIXABAN 5 MG TABLET PO SCH ×2 (13:59→20:53)
--- NOTE | 2017-05-02 15:31 | CONS ---
Date/Time of Note Date/Time of Note DATE: 05/02/17 TIME: 15:31 Assessment/Plan Assessment/Plan Additional Assessment/Plan Assessment/Plan Additional Assessment/Plan IMPRESSION: 1. Anemia may be anemia of chronic disease. Rule out gastrointestinal blood loss. 2. Dysphagia status post percutaneous endoscopic gastrostomy. 3. Diabetes mellitus. 4. Cerebrovascular accident. 5. End-stage renal disease, on dialysis. 6. Diabetes mellitus. 7. Legally blind. 8. Status post urinary tract infection. PLAN: work him up for the anemia, stool for occult blood, B12, folic acid, and retic count all within normal limit but it appears this is anemia of chronic disease Stool for occult blood is negative Consultation Date/Type/Reason Admit Date/Time Apr 17, 2017 at 16:39 Initial Consult Date 04/18/17 Type of Consultation: nephrology Referring Provider: PORTIA OILVER MD 24 HR Interval Summary Constitutional: no complaints Exam/Review of Systems Vital Signs Vitals Vital Signs Date Time Temp Pulse Resp B/P Pulse Ox O2 Delivery O2 Flow Rate FiO2 05/02/17 12:26 97.8 82 18 150/65 98 Intake and Output 05/01/17 05/01/17 05/02/17 15:00 23:00 07:00 Intake Total 2125 ml 1830 ml Output Total 1500 ml 1350 ml Balance 625 ml 480 ml Exam Constitutional: alert, oriented, well developed Psych: nl mood/affect, no complaints Head: atraumatic, normocephalic Eyes: EOMI, PERRL, nl conjunctiva, nl lids, nl sclera ENMT: nl external ears & nose, nl lips & teeth, nl nasal mucosa & septum Neck: non-tender, supple Respiratory: clear to auscultation, normal air movement Cardiovascular: nl pulses, regular rate and rhythm Gastrointestinal: nl liver, spleen, non-tender, soft Musculoskeletal: nl extremities to inspection, nl gait and stance Extremities: normal pulses Neurological: SURGERY AID II-XII intact, nl mental status, nl speech, nl strength Skin: nl turgor, No rash or lesions Lymph: nl lymph nodes Results Result Diagram: 04/30/17 0723 05/01/17 1449 Results 24 hrs Laboratory Tests Test 05/01/17 17:34 05/01/17 21:05 05/01/17 23:53 05/02/17 05:42 Bedside Glucose 183 202 190 165 Test 05/02/17 08:17 05/02/17 12:14 Bedside Glucose 167 193 Medications Medications Current Medications Acetaminophen (Tylenol Tab) 650 mg Q6H PRN GTB PAIN AND OR ELEVATED TEMP Last administered on 04/29/17 11:59; Admin Dose 650 MG; Start 04/17/17 at 18:00 Bisacodyl (Dulcolax Supp) 10 mg Q24H [place] Last administered on 05/01/17 17:36; Admin Dose 10 MG; Start 04/17/17 at 18:00 Diphenhydramine HCl (Benadryl) 25 mg Q6H PRN GTB ITCHING Last administered on 06:37; Admin Dose 25 MG; Start 04/17/17 at 18:00 Hydralazine HCl (Apresoline) 50 mg Q8 PRN GTB ELEVATED BLOOD PRESSURE Last administered on 04/18/17 13:18; Admin Dose 50 MG; Start 04/17/17 at 18:00 Multivitamins Therapeutic (Theragran) 1 tab DAILY GTB Last administered on 05/02 08:19; Admin Dose 1 TAB; Start 04/18/17 at 09:00 Miscellaneous Information 1 ea NOTE XX ; Start 04/17/17 at 21:00 Glucose (Glutose) 15 gm Q15M PRN PO DECREASED GLUCOSE; Start 04/17/17 at 21:00 Glucose (Glutose) 22.5 gm Q15M PRN PO DECREASED GLUCOSE; Start 04/17/17 at 21: 00 Dextrose (D50w Syringe) 25 ml Q15M PRN IV DECREASED GLUCOSE Last administered on 04/20/17 17:22; Admin Dose 25 ML; Start 04/17/17 at 21:00 Dextrose (D50w Syringe) 50 ml Q15M PRN IV DECREASED GLUCOSE; Start 04/17/17 at 21:00 Glucagon (Glucagen) 1 mg Q15M PRN IM DECREASED GLUCOSE; Start 04/17/17 at 21:00 Glucose (Glutose) 15 gm Q15M PRN BUCCAL DECREASED GLUCOSE; Start 04/17/17 at 21 :00 Ondansetron HCl (Zofran Inj) 4 mg Q6H PRN IV NAUSEA AND/OR VOMITING; Start at 00:30 Insulin Aspart (Novolog Insulin Pen) (Adult SC Insulin - Mild Algorithm)... Q6 SC Last administered on 05/02/17 12:18; Admin Dose 2 UNIT; Start 04/20/17 at 00:00 Insulin Glargine (Lantus) 14 unit QHS SC Last administered on 05/01/17 21:08; Admin Dose 14 UNIT; Start 04/20/17 at 21:00 Metoprolol Tartrate (Lopressor) 25 mg BID PO Last administered on 04/28/17 08: 14; Admin Dose 25 MG; Start 04/23/17 at 09:00; Status Future Hold Hydralazine HCl (Apresoline) 25 mg Q8 PO Last administered on 05/02/17 13:59; Admin Dose 25 MG; Start 04/22/17 at 22:00 Hydralazine HCl (Apresoline) 10 mg Q4H PRN IV SBP>170; Start 04/22/17 at 22:00 Nitroglycerin 1 tab 1 tab Q5M PRN SL ANGINA; Start 04/28/17 at 18:00 Sodium Chloride (1/2 NS) 1,000 ml @ 100 mls/hr Q10H IV Last administered on 05:41; Admin Dose 100 MLS/HR; Start 04/29/17 at 18:00 Amlodipine Besylate (Norvasc) 2.5 mg DAILY GTB Last administered on 05/02/17 08:19; Admin Dose 2.5 MG; Start 05/01/17 at 09:00 Apixaban (Eliquis) 5 mg BID PO Last administered on 05/02/17 13:59; Admin Dose 5 MG; Start 05/02/17 at 13:30 JEFRY CERNA MD May 02, 2017 15:31
[2017-05-02] MEDS: BISACODYL 10 MG SUPP PR SCH (17:33)
--- NOTE | 2017-05-02 18:51 | CONS ---
Date/Time of Note Date/Time of Note DATE: 05/02/17 TIME: 18:48 Assessment/Plan Assessment/Plan Chief Complaint/Hosp Course 72 y/o with 1.BISI on CKD with baseline Cr 2.48 > improving ( elevated BUN/Cr ratio consistent with prerenal) with iv fluids likely pre renal due to dehydration.Renal U./S negative for hydronephrosis 2.Hypernatremia >improving 3.HTN 4 Ecoli UTI o 5 Sepsis due to #4 6 Chronic Afib 7 CVA s/p G tube placement 8 Renal cyst 9 Hyperphos due to reduced renal clearence 10 Leukocytosis> work up per ID Recs - c/w fluids - bp control - Repeat labs - Renal U/S negative for hydronephrosis - Kayexalate prn - No indication of HD currently Problems: Consultation Date/Type/Reason Admit Date/Time Apr 17, 2017 at 16:39 Initial Consult Date 04/18/17 Type of Consultation: nephrology Referring Provider: POTRIA OLIVER MD 24 HR Interval Summary Free Text/Dictation Pt covering his face Exam/Review of Systems Vital Signs Vitals Vital Signs Date Time Temp Pulse Resp B/P Pulse Ox O2 Delivery O2 Flow Rate FiO2 05/02/17 16:20 97.8 88 20 167/76 96 Intake and Output 05/01/17 05/01/17 05/02/17 15:00 23:00 07:00 Intake Total 2125 ml 1830 ml Output Total 1500 ml 1350 ml Balance 625 ml 480 ml Exam Constitutional: other (confused) Head: atraumatic, normocephalic Neck: supple Respiratory: diminished breath sounds Cardiovascular: regular rate and rhythm Gastrointestinal: soft, G tube Results Result Diagram: 04/30/17 0723 05/01/17 1449 Results 24 hrs Laboratory Tests Test 05/01/17 21:05 05/01/17 23:53 05/02/17 05:42 05/02/17 08:17 Bedside Glucose 202 190 165 167 Test 05/02/17 12:14 05/02/17 17:34 Bedside Glucose 193 160 Medications Medications Current Medications Acetaminophen (Tylenol Tab) 650 mg Q6H PRN GTB PAIN AND OR ELEVATED TEMP Last administered on 04/29/17t 11:59; Admin Dose 650 MG; Start 04/17/17 at 18:00 Bisacodyl (Dulcolax Supp) 10 mg Q24H [place] Last administered on 05/01/17 17:36; Admin Dose 10 MG; Start 04/17/17 at 18:00 Diphenhydramine HCl (Benadryl) 25 mg Q6H PRN GTB ITCHING Last administered on 06:37; Admin Dose 25 MG; Start 04/17/17 at 18:00 Hydralazine HCl (Apresoline) 50 mg Q8 PRN GTB ELEVATED BLOOD PRESSURE Last administered on 04/18/17 13:18; Admin Dose 50 MG; Start 04/17/17 at 18:00 Multivitamins Therapeutic (Theragran) 1 tab DAILY GTB Last administered on 05/02 08:19; Admin Dose 1 TAB; Start 04/18/17 at 09:00 Miscellaneous Information 1 ea NOTE XX ; Start 04/17/17 at 21:00 Glucose (Glutose) 15 gm Q15M PRN PO DECREASED GLUCOSE; Start 04/17/17 at 21:00 Glucose (Glutose) 22.5 gm Q15M PRN PO DECREASED GLUCOSE; Start 04/17/17 at 21: 00 Dextrose (D50w Syringe) 25 ml Q15M PRN IV DECREASED GLUCOSE Last administered on 04/20/17 17:22; Admin Dose 25 ML; Start 04/17/17 at 21:00 Dextrose (D50w Syringe) 50 ml Q15M PRN IV DECREASED GLUCOSE; Start 04/17/17 at 21:00 Glucagon (Glucagen) 1 mg Q15M PRN IM DECREASED GLUCOSE; Start 04/17/17 at 21:00 Glucose (Glutose) 15 gm Q15M PRN BUCCAL DECREASED GLUCOSE; Start 04/17/17 at 21 :00 Ondansetron HCl (Zofran Inj) 4 mg Q6H PRN IV NAUSEA AND/OR VOMITING; Start at 00:30 Insulin Aspart (Novolog Insulin Pen) (Adult SC Insulin - Mild Algorithm)... Q6 SC Last administered on 05/02/17 17:36; Admin Dose 1 UNIT; Start 04/20/17 at 00:00 Insulin Glargine (Lantus) 14 unit QHS SC Last administered on 05/01/17 21:08; Admin Dose 14 UNIT; Start 04/20/17 at 21:00 Metoprolol Tartrate (Lopressor) 25 mg BID PO Last administered on 04/28/17 08: 14; Admin Dose 25 MG; Start 04/23/17 at 09:00; Status Future Hold Hydralazine HCl (Apresoline) 25 mg Q8 PO Last administered on 05/02/17 13:59; Admin Dose 25 MG; Start 04/22/17 at 22:00 Hydralazine HCl (Apresoline) 10 mg Q4H PRN IV SBP>170; Start 04/22/17 at 22:00 Nitroglycerin 1 tab 1 tab Q5M PRN SL ANGINA; Start 04/28/17 at 18:00 Sodium Chloride (1/2 NS) 1,000 ml @ 100 mls/hr Q10H IV Last administered on 16:00; Admin Dose 100 MLS/HR; Start 04/29/17 at 18:00 Amlodipine Besylate (Norvasc) 2.5 mg DAILY GTB Last administered on 05/02/17 08:19; Admin Dose 2.5 MG; Start 05/01/17 at 09:00 Apixaban (Eliquis) 5 mg BID PO Last administered on 05/02/17 13:59; Admin Dose 5 MG; Start 05/02/17 at 13:30 PORTIA OLIVER MD May 02, 2017 18:51
[2017-05-02] MEDS: INSULIN GLARGINE [LANtus] 3 ML PEN SC SCH (20:53)
[2017-05-03] VITALS (11 sets, daily range): BP systolic 116–161; BP diastolic 59–72; PULSE 81–90; RESP 16–20
[2017-05-03] MEDS: SOD CHLORIDE 0.45% 1,000 ML IV SCH (03:23)
[2017-05-03] MEDS: HYDROCODONE/APAP (5/325) TAB PO PRN ×2 (03:30→12:31)
[2017-05-03] MEDS ORDERED: ALBUTEROL/IPRATROPIUM (NEB) 3 ML AMP HHN STA (03:57)
[2017-05-03] MEDS ORDERED: FUROSEMIDE 20 MG INJ ONE (03:57)
[2017-05-03] MEDS ORDERED: FUROSEMIDE 40 MG INJ ONE (03:58)
[2017-05-03] MEDS ORDERED: FUROSEMIDE 40 MG INJ IV ONE (04:00)
--- NOTE | 2017-05-03 04:12 | RADRPT ---
PROCEDURE: XR Chest. CLINICAL INDICATION: Shortness of breath. TECHNIQUE: AP Portable chest. COMPARISON: 11/05/2016 FINDINGS: There is mild to moderate cardiomegaly. Atherosclerotic calcifications are noted in the aorta. Some patchy, predominantly perihilar airspace opacities are seen within both lungs. The osseous structu res are unremarkable. IMPRESSION: Bilateral patchy airspace opacities likely due to pulmonary edema. RPTAT: HIKT .Mark Jimenez MD, MD Date Time Electronically viewed and signed by .Mark Jimenez MD, MD on 05/03/2017 04:11 .T/
[2017-05-03] MEDS: Insulin NOVOLOG SS MILD Algorithm (NPO/TPN/ENTERAL FEEDS) SC SCH ×4 (05:45→17:30)
[2017-05-03] MEDS: ALBUTEROL/IPRATROPIUM (NEB) 3 ML AMP HHN SCH ×3 (07:39→20:10)
[2017-05-03] MEDS: AMLODIPINE 2.5 MG TAB GTB SCH (08:48)
[2017-05-03] MEDS: MULTIVITAMINS THERAPEUTIC TAB GTB SCH (08:48)
[2017-05-03] MEDS: APIXABAN 5 MG TABLET PO SCH (08:48)
--- NOTE | 2017-05-03 13:02 | CONS ---
Date/Time of Note Date/Time of Note DATE: 05/03/17 TIME: 12:59 Assessment/Plan Assessment/Plan Chief Complaint/Hosp Course IMP: 1.HTN-Now improved and tolerating current medications 2.H/O PAF-REamons in SR at this time 3.renal failure 4.dysphagia 5. AMS 6. Heart [id number] HR.improved with holding BB 7. Chest pain-resolved/negative troponin/no change on serial ecg 8. Occasional PVC's 9. CHF-diastolic acute on chronic REcc: -Tele -serial ecg's -Continue amio low dose 100 mg as tolerated only -follow rhythm closely -Continue norvasc/hydralazine at current doses -Continue to Hold BB given wenkebach -Follow volume status closely and start standing gentl lasix diuresis -Ongoing eval of anemia Problems: Consultation Date/Type/Reason Admit Date/Time Apr 17, 2017 at 16:39 Initial Consult Date 04/18/17 Type of Consultation: cardiology Reason for Consultation AF/CHF Referring Provider: PORTIA OLIVER MD Exam/Review of Systems Vital Signs Vitals Vital Signs Date Time Temp Pulse Resp B/P Pulse Ox O2 Delivery O2 Flow Rate FiO2 05/03/17 12:12 90 05/03/17 11:53 98.0 20 145/66 100 05/03/17 08:00 Nasal Cannula 2.0 Intake and Output 05/02/17 05/02/17 05/03/17 15:00 23:00 07:00 Intake Total 1980 ml 1180 ml Output Total 1600 ml 1800 ml Balance 380 ml -620 ml Exam Review of Systems: CONSTITUTIONAL: No fevers, chills. PULMONARY: No sob CARDIOVASCULAR: No chest pain/palpitations GASTROINTESTINAL: No nausea/vomiting. GENITOURINARY: No hematuria/dysuria. MUSCULOSKELETAL: No myagias/arthalgias. PSYCHIATRIC: The patient denies depression. NEUROLOGIC: lethargic/encephalopathic Constitutional: alert Psych: no complaints Head: normocephalic ENMT: mucosa pink and moist Neck: jvd (9 cm water), supple Respiratory: diminished breath sounds (at bhases/B) Cardiovascular: regular rate and rhythm Gastrointestinal: soft Musculoskeletal: muscle weakness (generalized weakness) Extremities: edema (none) Neurological: lethargic Results Result Diagram: 04/30/17 0723 05/01/17 1449 Results 24 hrs Laboratory Tests Test 05/02/17 17:34 05/02/17 20:51 05/03/17 00:41 05/03/17 05:44 Bedside Glucose 160 174 146 127 Medications Medications Current Medications Acetaminophen (Tylenol Tab) 650 mg Q6H PRN GTB PAIN AND OR ELEVATED TEMP Last administered on 04/29/17 11:59; Admin Dose 650 MG; Start 04/17/17 at 18:00 Bisacodyl (Dulcolax Supp) 10 mg Q24H [place] Last administered on 05/01/17 17:36; Admin Dose 10 MG; Start 04/17/17 at 18:00 Diphenhydramine HCl (Benadryl) 25 mg Q6H PRN GTB ITCHING Last administered on 06:37; Admin Dose 25 MG; Start 04/17/17 at 18:00 Hydralazine HCl (Apresoline) 50 mg Q8 PRN GTB ELEVATED BLOOD PRESSURE Last administered on 04/18/17 13:18; Admin Dose 50 MG; Start 04/17/17 at 18:00 Multivitamins Therapeutic (Theragran) 1 tab DAILY GTB Last administered on 05/03 08:48; Admin Dose 1 TAB; Start 04/18/17 at 09:00 Miscellaneous Information 1 ea NOTE XX ; Start 04/17/17 at 21:00 Glucose (Glutose) 15 gm Q15M PRN PO DECREASED GLUCOSE; Start 04/17/17 at 21:00 Glucose (Glutose) 22.5 gm Q15M PRN PO DECREASED GLUCOSE; Start 04/17/17 at 21: 00 Dextrose (D50w Syringe) 25 ml Q15M PRN IV DECREASED GLUCOSE Last administered on 04/20/17 17:22; Admin Dose 25 ML; Start 04/17/17 at 21:00 Dextrose (D50w Syringe) 50 ml Q15M PRN IV DECREASED GLUCOSE; Start 04/17/17 at 21:00 Glucagon (Glucagen) 1 mg Q15M PRN IM DECREASED GLUCOSE; Start 04/17/17 at 21:00 Glucose (Glutose) 15 gm Q15M PRN BUCCAL DECREASED GLUCOSE; Start 04/17/17 at 21 :00 Ondansetron HCl (Zofran Inj) 4 mg Q6H PRN IV NAUSEA AND/OR VOMITING; Start at 00:30 Insulin Aspart (Novolog Insulin Pen) (Adult SC Insulin - Mild Algorithm)... Q6 SC Last administered on 05/02/17 17:36; Admin Dose 1 UNIT; Start 04/20/17 at 00:00 Insulin Glargine (Lantus) 14 unit QHS SC Last administered on 05/02/17 20:53; Admin Dose 14 UNIT; Start 04/20/17 at 21:00 Metoprolol Tartrate (Lopressor) 25 mg BID PO Last administered on 04/28/17 08: 14; Admin Dose 25 MG; Start 04/23/17 at 09:00; Status Future Hold Hydralazine HCl (Apresoline) 25 mg Q8 PO Last administered on 05/03/17 05:46; Admin Dose 25 MG; Start 04/22/17 at 22:00 Hydralazine HCl (Apresoline) 10 mg Q4H PRN IV SBP>170; Start 04/22/17 at 22:00 Nitroglycerin (Nitroglycerin (Sl Tab) 0.4 Mg) 1 tab Q5M PRN SL ANGINA; Start at 18:00 Amlodipine Besylate (Norvasc) 2.5 mg DAILY GTB Last administered on 05/03/17 08:48; Admin Dose 2.5 MG; Start 05/01/17 at 09:00 Apixaban (Eliquis) 5 mg BID PO Last administered on 05/03/17 08:48; Admin Dose 5 MG; Start 05/02/17 at 13:30 Acetaminophen/ Hydrocodone Bitart (Casar (5/325)) 1 tab Q6H PRN PO PAIN LEVEL 4 -7 Last administered on 05/03/17 12:31; Admin Dose 1 TAB; Start 05/03/17 at 03: 30 Acetaminophen (Tylenol Liquid) 650 mg Q4H PRN GTB PAIN AND OR ELEVATED TEMP; Start 05/03/17 at 03:30 LESLI SHEA May 03, 2017 13:02
--- NOTE | 2017-05-03 17:14 | PN ---
Date/Time of Note Date/Time of Note DATE: 05/03/17 TIME: 17:14 Assessment/Plan Lines/Catheters IV Catheter Type (from Nrsg): Peripheral IV Urinary Cath still in place: Yes Assessment/Plan Assessment/Plan - Anemia- Hgb dropped. - per gi - Leukocytosis sec to UTI- maria Albicans - -Acute cystitis without hematuria - sp Vanco/Zosyn - fu urine c/s - ID consult- Dr Garcia notified - am labs -Acute weakness sec to Dizziness - cardiology consult - 2D Echo am- LVEF 65% - Electrolyte imbalance- per nephrology - Hyperkalemia- RESOLVED - Hypernatremia - Hyperphosphatemia - Acute renal failure on Chronic Kidney disease - per nephro consult- dr Cheema - Dysphagia - sp PEG placement - aspiration precautions - cont tube feeding - History of paroxysmal atrial fibrillation.- no acute issues. SR at present - Diabetes mellitus. - Glycemic control - Dietary consult - community educator consult - Chronic kidney disease. - History of cerebrovascular accident- no acute issues reported - Hx AMS Placement pending, Plan of care Dr Patel/staff Exam/Review of Systems Vital Signs Vitals Vital Signs Date Time Temp Pulse Resp B/P Pulse Ox O2 Delivery O2 Flow Rate FiO2 05/03/17 16:27 98.8 89 20 127/60 96 05/03/17 13:49 Nasal Cannula 2.0 Intake and Output 05/02/17 05/02/17 05/03/17 15:00 23:00 07:00 Intake Total 1980 ml 1180 ml Output Total 1600 ml 1800 ml Balance 380 ml -620 ml Results Result Diagram: 04/30/17 0723 05/01/17 1449 Results 24 hrs Laboratory Tests Test 05/02/17 17:34 05/02/17 20:51 05/03/17 00:41 05/03/17 05:44 Bedside Glucose 160 174 146 127 Test 05/03/17 12:52 Bedside Glucose 208 Medications Medications Current Medications Acetaminophen (Tylenol Tab) 650 mg Q6H PRN GTB PAIN AND OR ELEVATED TEMP Last administered on 04/29/17 11:59; Admin Dose 650 MG; Start 04/17/17 at 18:00 Bisacodyl (Dulcolax Supp) 10 mg Q24H [place] Last administered on 05/01/17 17:36; Admin Dose 10 MG; Start 04/17/17 at 18:00 Diphenhydramine HCl (Benadryl) 25 mg Q6H PRN GTB ITCHING Last administered on 06:37; Admin Dose 25 MG; Start 04/17/17 at 18:00 Hydralazine HCl (Apresoline) 50 mg Q8 PRN GTB ELEVATED BLOOD PRESSURE Last administered on 04/18/17 13:18; Admin Dose 50 MG; Start 04/17/17 at 18:00 Multivitamins Therapeutic (Theragran) 1 tab DAILY GTB Last administered on 05/03 08:48; Admin Dose 1 TAB; Start 04/18/17 at 09:00 Miscellaneous Information 1 ea NOTE XX ; Start 04/17/17 at 21:00 Glucose (Glutose) 15 gm Q15M PRN PO DECREASED GLUCOSE; Start 04/17/17 at 21:00 Glucose (Glutose) 22.5 gm Q15M PRN PO DECREASED GLUCOSE; Start 04/17/17 at 21: 00 Dextrose (D50w Syringe) 25 ml Q15M PRN IV DECREASED GLUCOSE Last administered on 04/20/17 17:22; Admin Dose 25 ML; Start 04/17/17 at 21:00 Dextrose (D50w Syringe) 50 ml Q15M PRN IV DECREASED GLUCOSE; Start 04/17/17 at 21:00 Glucagon (Glucagen) 1 mg Q15M PRN IM DECREASED GLUCOSE; Start 04/17/17 at 21:00 Glucose (Glutose) 15 gm Q15M PRN BUCCAL DECREASED GLUCOSE; Start 04/17/17 at 21 :00 Ondansetron HCl (Zofran Inj) 4 mg Q6H PRN IV NAUSEA AND/OR VOMITING; Start at 00:30 Insulin Aspart (Novolog Insulin Pen) (Adult SC Insulin - Mild Algorithm)... Q6 [place] Last administered on 05/03/17 13:22; Admin Dose 2 UNIT; Start 04/20/17 at 00:00 Insulin Glargine (Lantus) 14 unit QHS SC Last administered on 05/02/17 20:53; Admin Dose 14 UNIT; Start 04/20/17 at 21:00 Metoprolol Tartrate (Lopressor) 25 mg BID PO Last administered on 04/28/17 08: 14; Admin Dose 25 MG; Start 04/23/17 at 09:00; Status Future Hold Hydralazine HCl (Apresoline) 25 mg Q8 PO Last administered on 05/03/17 13:27; Admin Dose 25 MG; Start 04/22/17 at 22:00 Hydralazine HCl (Apresoline) 10 mg Q4H PRN IV SBP>170; Start 04/22/17 at 22:00 Nitroglycerin (Nitroglycerin (Sl Tab) 0.4 Mg) 1 tab Q5M PRN SL ANGINA; Start at 18:00 Amlodipine Besylate (Norvasc) 2.5 mg DAILY GTB Last administered on 05/03/17 08:48; Admin Dose 2.5 MG; Start 05/01/17 at 09:00 Apixaban (Eliquis) 5 mg BID PO Last administered on 05/03/17 08:48; Admin Dose 5 MG; Start 05/02/17 at 13:30 Acetaminophen/ Hydrocodone Bitart ([place] (5/325)) 1 tab Q6H PRN PO PAIN LEVEL 4 -7 Last administered on 05/03/17 12:31; Admin Dose 1 TAB; Start 05/03/17 at 03: 30 Acetaminophen (Tylenol Liquid) 650 mg Q4H PRN GTB PAIN AND OR ELEVATED TEMP; Start 05/03/17 at 03:30 Furosemide (Lasix) 40 mg DAILY@06 IV ; Start 05/04/17 at 06:00 MARCY WEINER May 03, 2017 17:14
--- NOTE | 2017-05-03 18:25 | CONS ---
Date/Time of Note Date/Time of Note DATE: 05/03/17 TIME: 18:21 Assessment/Plan Assessment/Plan Chief Complaint/Hosp Course 1.BISI on CKD BETTER 2.Hypernatremia better 3.HTN 4 Ecoli UTI 5 Sepsis 6 Chronic Afib 7 CVA s/p G tube placement 8 Renal cyst 9 uremia BETTER plan continue same BMP BETTER FOR NOW HOLD HD FOR NOW Problems: Consultation Date/Type/Reason Admit Date/Time Apr 17, 2017 at 16:39 Type of Consultation: RENAL Referring Provider: PORTIA OLIVER MD 24 HR Interval Summary Constitutional: other (LABS BMP BETTER) Exam/Review of Systems Vital Signs Vitals Vital Signs Date Time Temp Pulse Resp B/P Pulse Ox O2 Delivery O2 Flow Rate FiO2 05/03/17 16:27 98.8 89 20 127/60 96 05/03/17 13:49 Nasal Cannula 2.0 Intake and Output 05/02/17 05/02/17 05/03/17 15:00 23:00 07:00 Intake Total 1980 ml 1180 ml Output Total 1600 ml 1800 ml Balance 380 ml -620 ml Exam Neck: supple Respiratory: clear to auscultation Cardiovascular: regular rate and rhythm Gastrointestinal: soft Musculoskeletal: nl extremities to inspection Extremities: normal pulses Results Result Diagram: 04/30/17 0723 05/01/17 1449 Results 24 hrs Laboratory Tests Test 05/02/17 20:51 05/03/17 00:41 05/03/17 05:44 05/03/17 12:52 Bedside Glucose 174 146 127 208 Test 05/03/17 17:27 Bedside Glucose 219 Medications Medications Current Medications Acetaminophen (Tylenol Tab) 650 mg Q6H PRN GTB PAIN AND OR ELEVATED TEMP Last administered on 04/29/17 11:59; Admin Dose 650 MG; Start 04/17/17 at 18:00 Bisacodyl (Dulcolax Supp) 10 mg Q24H [place] Last administered on 05/01/17 17:36; Admin Dose 10 MG; Start 04/17/17 at 18:00 Diphenhydramine HCl (Benadryl) 25 mg Q6H PRN GTB ITCHING Last administered on 06:37; Admin Dose 25 MG; Start 04/17/17 at 18:00 Hydralazine HCl (Apresoline) 50 mg Q8 PRN GTB ELEVATED BLOOD PRESSURE Last administered on 04/18/17 13:18; Admin Dose 50 MG; Start 04/17/17 at 18:00 Multivitamins Therapeutic (Theragran) 1 tab DAILY GTB Last administered on 05/03 08:48; Admin Dose 1 TAB; Start 04/18/17 at 09:00 Miscellaneous Information 1 ea NOTE XX ; Start 04/17/17 at 21:00 Glucose (Glutose) 15 gm Q15M PRN PO DECREASED GLUCOSE; Start 04/17/17 at 21:00 Glucose (Glutose) 22.5 gm Q15M PRN PO DECREASED GLUCOSE; Start 04/17/17 at 21: 00 Dextrose (D50w Syringe) 25 ml Q15M PRN IV DECREASED GLUCOSE Last administered on 04/20/17 17:22; Admin Dose 25 ML; Start 04/17/17 at 21:00 Dextrose (D50w Syringe) 50 ml Q15M PRN IV DECREASED GLUCOSE; Start 04/17/17 at 21:00 Glucagon (Glucagen) 1 mg Q15M PRN IM DECREASED GLUCOSE; Start 04/17/17 at 21:00 Glucose (Glutose) 15 gm Q15M PRN BUCCAL DECREASED GLUCOSE; Start 04/17/17 at 21 :00 Ondansetron HCl (Zofran Inj) 4 mg Q6H PRN IV NAUSEA AND/OR VOMITING; Start at 00:30 Insulin Aspart (Novolog Insulin Pen) (Adult SC Insulin - Mild Algorithm)... Q6 [place] Last administered on 05/03/17 17:30; Admin Dose 2 UNIT; Start 04/20/17 at 00:00 Insulin Glargine (Lantus) 14 unit QHS SC Last administered on 05/02/17 20:53; Admin Dose 14 UNIT; Start 04/20/17 at 21:00 Metoprolol Tartrate (Lopressor) 25 mg BID PO Last administered on 04/28/17 08: 14; Admin Dose 25 MG; Start 04/23/17 at 09:00; Status Future Hold Hydralazine HCl (Apresoline) 25 mg Q8 PO Last administered on 05/03/17 13:27; Admin Dose 25 MG; Start 04/22/17 at 22:00 Hydralazine HCl (Apresoline) 10 mg Q4H PRN IV SBP>170; Start 04/22/17 at 22:00 Nitroglycerin (Nitroglycerin (Sl Tab) 0.4 Mg) 1 tab Q5M PRN SL ANGINA; Start at 18:00 Amlodipine Besylate (Norvasc) 2.5 mg DAILY GTB Last administered on 05/03/17 08:48; Admin Dose 2.5 MG; Start 05/01/17 at 09:00 Apixaban (Eliquis) 5 mg BID PO Last administered on 05/03/17 08:48; Admin Dose 5 MG; Start 05/02/17 at 13:30 Acetaminophen/ Hydrocodone Bitart ([place] (5/325)) 1 tab Q6H PRN PO PAIN LEVEL 4 -7 Last administered on 05/03/17 12:31; Admin Dose 1 TAB; Start 05/03/17 at 03: 30 Acetaminophen (Tylenol Liquid) 650 mg Q4H PRN GTB PAIN AND OR ELEVATED TEMP; Start 05/03/17 at 03:30 Furosemide (Lasix) 40 mg DAILY@06 IV ; Start 05/04/17 at 06:00 ABBY RAMOS MD May 03, 2017 18:25
[2017-05-03] MEDS: BISACODYL 10 MG SUPP PR SCH (18:47)
[2017-05-03] MEDS: APIXABAN 5 MG TABLET GTB SCH (21:28)
[2017-05-03] MEDS: INSULIN GLARGINE [LANtus] 3 ML PEN SC SCH (21:35)
[2017-05-04] VITALS (11 sets, daily range): BP systolic 128–152; BP diastolic 63–68; PULSE 88–101; RESP 18–20
[2017-05-04] MEDS: Insulin NOVOLOG SS MILD Algorithm (NPO/TPN/ENTERAL FEEDS) SC SCH ×4 (00:23→17:44)
[2017-05-04] MEDS: ALBUTEROL/IPRATROPIUM (NEB) 3 ML AMP HHN SCH ×4 (02:18→19:59)
[2017-05-04] MEDS: FUROSEMIDE 40 MG INJ IV SCH (05:48)
[2017-05-04 07:43] LABS: ABNORMAL IP MESSAGE 1; BASOPHIL # 0.1 10^3/ul (0.0-0.1); BASOPHILS % 0.8 % (0.0-2.0); EOSINOPHILS # 0.9 10^3/ul (0.0-0.5); EOSINOPHILS % 6.5 % (0.0-7.0); HEMATOCRIT 25.2 % (42.0-52.0); HEMOGLOBIN 7.8 g/dl (14.0-18.0); LYMPHOCYTES # 1.3 10^3/ul (0.8-2.9); LYMPHOCYTES % 9.3 % (15.0-51.0); MEAN CORPUSCULAR HEMOGLOBIN 26.3 pg (29.0-33.0); MEAN CORPUSCULAR VOLUME 84.8 fl (82.0-101.0); MEAN PLATELET VOLUME 11.2 fl (7.4-10.4); MONOCYTE # 1.1 10^3/ul (0.3-0.9); MONOCYTES % 7.6 % (0.0-11.0); NEUTROPHILS % 75.2 % (39.0-77.0); PLATELET COUNT 304 10^3/UL (140-415); POSITIVE DIFF @See below; RED BLOOD COUNT 2.97 10^6/ul (4.70-6.10); RED CELL DISTRIBUTION WIDTH 22.2 % (11.5-14.5); WHITE BLOOD COUNT 14.4 10^3/ul (4.8-10.8)
[2017-05-04 08:08] LABS: CALCIUM 8.4 mg/dl (8.4-10.2); CREATININE 2.66 mg/dl (0.61-1.24)
[2017-05-04 08:19] LABS: POTASSIUM 5.3 mmol/L (3.5-5.1)
--- NOTE | 2017-05-04 08:55 | CONS ---
Date/Time of Note Date/Time of Note DATE: 05/04/17 TIME: 08:51 Assessment/Plan Assessment/Plan Additional Assessment/Plan 1.HTN - Now improved and tolerating current medications, will monitor clinically 2.H/O PAF-REamons in SR at this time - in sinus on tele now 3.Renal failure- con't to avoid nephrotoxic medications 4.Dysphagia - Rx as needed 5. AMS - miles alert today 6. Heart [id number] HR.improved with holding BB - no plan for pacer now 7. Chest pain-resolved/negative troponin/no change on serial ecg 8. Occasional PVC's 9. CHF-diastolic acute on chronic, con't gentle diuresis Consultation Date/Type/Reason Admit Date/Time Apr 17, 2017 at 16:39 Initial Consult Date 04/18/17 Type of Consultation: RENAL Referring Provider: PORTIA OLIVER MD 24 HR Interval Summary Free Text/Dictation NO acute events - pt more alert no - con't to keep euvolemic. Sinus at 90s now - no pauses. ROS: No fever, no chills, no nausea, no vomiting, no diarrhea/constipation No recent weight changes No chest pain, no PND, no orthopnea No dizziness, blurred vision No thirst, no heat or cold intolerance Exam/Review of Systems Vital Signs Vitals Vital Signs Date Time Temp Pulse Resp B/P Pulse Ox O2 Delivery O2 Flow Rate FiO2 05/04/17 08:46 97.8 92 20 147/66 98 05/04/17 07:36 Nasal Cannula 2.0 Intake and Output 05/03/17 05/03/17 05/04/17 15:00 23:00 07:00 Intake Total 1180 ml 772 ml Output Total 1200 ml 1200 ml Balance -20 ml -428 ml Exam General: WN/WD/NAD, AOx 3 HEENT: Unicetric/atraumatic/EOMI (follows commands) NECK: JVD elevated, no thyromegaly Lymph: no lymphadenopathy HEART: regular with no S3, II/ systolic murmur at apex LUNGS: Coarse sounds ABD: soft, NT, ND, +BS : Intact Neuro: non focal SKIN: chronic changes EXT: trace edema Results Result Diagram: 05/04/17 0709 05/04/17 0709 Results 24 hrs Laboratory Tests Test 05/03/17 12:52 05/03/17 17:27 05/03/17 21:33 05/04/17 00:19 Bedside Glucose 208 219 208 240 H Test 05/04/17 05:57 05/04/17 07:09 Bedside Glucose 108 White Blood Count 14.4 H Red Blood Count 2.97 L Hemoglobin 7.8 L Hematocrit 25.2 L Mean Corpuscular Volume 84.8 Mean Corpuscular Hemoglobin 26.3 L Mean Corpuscular Hemoglobin Concent 31.0 L Red Cell Distribution Width 22.2 H Platelet Count 304 Mean Platelet Volume 11.2 H Neutrophils % 75.2 Lymphocytes % 9.3 L Monocytes % 7.6 Eosinophils % 6.5 Basophils % 0.8 Nucleated Red Blood Cells % 0.0 Neutrophils # (Manual) 10.8 H Lymphocytes # 1.3 Monocytes # 1.1 H Eosinophils # 0.9 H Basophils # 0.1 Nucleated Red Blood Cells # 0.0 Sodium Level 134 L Potassium Level 5.3 H Chloride Level 104 Carbon Dioxide Level 24 Anion Gap 11 Blood Urea Nitrogen 92 H Creatinine 2.66 H Glucose Level 83 Calcium Level 8.4 Medications Medications Current Medications Acetaminophen (Tylenol Tab) 650 mg Q6H PRN GTB PAIN AND OR ELEVATED TEMP Last administered on 04/29/17 11:59; Admin Dose 650 MG; Start 04/17/17 at 18:00 Bisacodyl (Dulcolax Supp) 10 mg Q24H [place] Last administered on 05/03/17 18:47; Admin Dose 10 MG; Start 04/17/17 at 18:00 Diphenhydramine HCl (Benadryl) 25 mg Q6H PRN GTB ITCHING Last administered on 06:37; Admin Dose 25 MG; Start 04/17/17 at 18:00 Hydralazine HCl (Apresoline) 50 mg Q8 PRN GTB ELEVATED BLOOD PRESSURE Last administered on 04/18/17 13:18; Admin Dose 50 MG; Start 04/17/17 at 18:00 Multivitamins Therapeutic (Theragran) 1 tab DAILY GTB Last administered on 05/03 08:48; Admin Dose 1 TAB; Start 04/18/17 at 09:00 Miscellaneous Information 1 ea NOTE XX ; Start 04/17/17 at 21:00 Glucose (Glutose) 15 gm Q15M PRN PO DECREASED GLUCOSE; Start 04/17/17 at 21:00 Glucose (Glutose) 22.5 gm Q15M PRN PO DECREASED GLUCOSE; Start 04/17/17 at 21: 00 Dextrose (D50w Syringe) 25 ml Q15M PRN IV DECREASED GLUCOSE Last administered on 04/20/17 17:22; Admin Dose 25 ML; Start 04/17/17 at 21:00 Dextrose (D50w Syringe) 50 ml Q15M PRN IV DECREASED GLUCOSE; Start 04/17/17 at 21:00 Glucagon (Glucagen) 1 mg Q15M PRN IM DECREASED GLUCOSE; Start 04/17/17 at 21:00 Glucose (Glutose) 15 gm Q15M PRN BUCCAL DECREASED GLUCOSE; Start 04/17/17 at 21 :00 Ondansetron HCl (Zofran Inj) 4 mg Q6H PRN IV NAUSEA AND/OR VOMITING; Start at 00:30 Insulin Aspart (Novolog Insulin Pen) (Adult SC Insulin - Mild Algorithm)... Q6 SC Last administered on 05/04/17 00:23; Admin Dose 3 UNIT; Start 04/20/17 at 00:00 Insulin Glargine (Lantus) 14 unit QHS SC Last administered on 05/03/17 21:35; Admin Dose 14 UNIT; Start 04/20/17 at 21:00 Metoprolol Tartrate (Lopressor) 25 mg BID PO Last administered on 04/28/17 08: 14; Admin Dose 25 MG; Start 04/23/17 at 09:00; Status Future Hold Hydralazine HCl (Apresoline) 25 mg Q8 PO Last administered on 05/04/17 05:48; Admin Dose 25 MG; Start 04/22/17 at 22:00 Hydralazine HCl (Apresoline) 10 mg Q4H PRN IV SBP>170; Start 04/22/17 at 22:00 Nitroglycerin (Nitroglycerin (Sl Tab) 0.4 Mg) 1 tab Q5M PRN SL ANGINA; Start at 18:00 Amlodipine Besylate (Norvasc) 2.5 mg DAILY GTB Last administered on 05/03/17 08:48; Admin Dose 2.5 MG; Start 05/01/17 at 09:00 Acetaminophen/ Hydrocodone Bitart ([place] (5/325)) 1 tab Q6H PRN PO PAIN LEVEL 4 -7 Last administered on 05/03/17 12:31; Admin Dose 1 TAB; Start 05/03/17 at 03: 30 Acetaminophen (Tylenol Liquid) 650 mg Q4H PRN GTB PAIN AND OR ELEVATED TEMP; Start 05/03/17 at 03:30 Furosemide (Lasix) 40 mg DAILY@06 IV Last administered on 05/04/17 05:48; Admin Dose 40 MG; Start 05/04/17 at 06:00 Apixaban (Eliquis) 5 mg BID GTB Last administered on 05/03/17 21:28; Admin Dose 5 MG; Start 05/03/17 at 21:00 HERBERTH ZUNIGA MD May 04, 2017 08:55
[2017-05-04] MEDS: AMLODIPINE 2.5 MG TAB GTB SCH (09:09)
[2017-05-04] MEDS: APIXABAN 5 MG TABLET GTB SCH ×2 (09:09→22:02)
[2017-05-04] MEDS: MULTIVITAMINS THERAPEUTIC TAB GTB SCH (09:09)
[2017-05-04] MEDS ORDERED: NA POLYST SULFON 15 GM/60 ML BTL PO ONE (10:00)
[2017-05-04 12:00] LABS: HEMATOCRIT 24.8 % (42.0-52.0); HEMOGLOBIN 8.1 g/dl (14.0-18.0)
[2017-05-04] MEDS: BISACODYL 10 MG SUPP PR SCH (17:45)
--- NOTE | 2017-05-04 17:55 | CONS ---
Date/Time of Note Date/Time of Note DATE: 05/04/17 TIME: 17:54 Assessment/Plan Assessment/Plan Chief Complaint/Hosp Course 1.BISI on CKD BETTER 2.Hypernatremia better 3.HTN 4 Ecoli UTI 5 Sepsis 6 Chronic Afib 7 CVA s/p G tube placement 8 Renal cyst 9 uremia 10 pul edema plan continue same will need hd on diuretic Problems: Consultation Date/Type/Reason Admit Date/Time Apr 17, 2017 at 16:39 Type of Consultation: RENAL Referring Provider: PORTIA OLIVER MD 24 HR Interval Summary Constitutional: no complaints Exam/Review of Systems Vital Signs Vitals Vital Signs Date Time Temp Pulse Resp B/P Pulse Ox O2 Delivery O2 Flow Rate FiO2 05/04/17 16:33 96 05/04/17 14:19 22 94 21 05/04/17 12:15 97.8 152/68 05/04/17 07:36 Nasal Cannula 2.0 Intake and Output 05/03/17 05/03/17 05/04/17 15:00 23:00 07:00 Intake Total 1180 ml 772 ml Output Total 1200 ml 1200 ml Balance -20 ml -428 ml Exam Respiratory: diminished breath sounds Cardiovascular: regular rate and rhythm Gastrointestinal: soft Musculoskeletal: nl extremities to inspection Extremities: edema (+) Results Result Diagram: 05/04/17 1137 05/04/17 0709 Results 24 hrs Laboratory Tests Test 05/03/17 21:33 05/04/17 00:19 05/04/17 05:57 05/04/17 07:09 Bedside Glucose 208 240 H 108 White Blood Count 14.4 H Red Blood Count 2.97 L Hemoglobin 7.8 L Hematocrit 25.2 L Mean Corpuscular Volume 84.8 Mean Corpuscular Hemoglobin 26.3 L Mean Corpuscular Hemoglobin Concent 31.0 L Red Cell Distribution Width 22.2 H Platelet Count 304 Mean Platelet Volume 11.2 H Neutrophils % 75.2 Lymphocytes % 9.3 L Monocytes % 7.6 Eosinophils % 6.5 Basophils % 0.8 Nucleated Red Blood Cells % 0.0 Neutrophils # (Manual) 10.8 H Lymphocytes # 1.3 Monocytes # 1.1 H Eosinophils # 0.9 H Basophils # 0.1 Nucleated Red Blood Cells # 0.0 Sodium Level 134 L Potassium Level 5.3 H Chloride Level 104 Carbon Dioxide Level 24 Anion Gap 11 Blood Urea Nitrogen 92 H Creatinine 2.66 H Glucose Level 83 Calcium Level 8.4 Test 05/04/17 11:37 05/04/17 12:12 05/04/17 17:20 Hemoglobin 8.1 L Hematocrit 24.8 L Bedside Glucose 92 141 Medications Medications Current Medications Acetaminophen (Tylenol Tab) 650 mg Q6H PRN GTB PAIN AND OR ELEVATED TEMP Last administered on 04/29/17 11:59; Admin Dose 650 MG; Start 04/17/17 at 18:00 Bisacodyl (Dulcolax Supp) 10 mg Q24H [place] Last administered on 05/03/17 18:47; Admin Dose 10 MG; Start 04/17/17 at 18:00 Diphenhydramine HCl (Benadryl) 25 mg Q6H PRN GTB ITCHING Last administered on 06:37; Admin Dose 25 MG; Start 04/17/17 at 18:00 Hydralazine HCl (Apresoline) 50 mg Q8 PRN GTB ELEVATED BLOOD PRESSURE Last administered on 04/18/17 13:18; Admin Dose 50 MG; Start 04/17/17 at 18:00 Multivitamins Therapeutic (Theragran) 1 tab DAILY GTB Last administered on 05/04 09:09; Admin Dose 1 TAB; Start 04/18/17 at 09:00 Miscellaneous Information 1 ea NOTE XX ; Start 04/17/17 at 21:00 Glucose (Glutose) 15 gm Q15M PRN PO DECREASED GLUCOSE; Start 04/17/17 at 21:00 Glucose (Glutose) 22.5 gm Q15M PRN PO DECREASED GLUCOSE; Start 04/17/17 at 21: 00 Dextrose (D50w Syringe) 25 ml Q15M PRN IV DECREASED GLUCOSE Last administered on 04/20/17 17:22; Admin Dose 25 ML; Start 04/17/17 at 21:00 Dextrose (D50w Syringe) 50 ml Q15M PRN IV DECREASED GLUCOSE; Start 04/17/17 at 21:00 Glucagon (Glucagen) 1 mg Q15M PRN IM DECREASED GLUCOSE; Start 04/17/17 at 21:00 Glucose (Glutose) 15 gm Q15M PRN BUCCAL DECREASED GLUCOSE; Start 04/17/17 at 21 :00 Ondansetron HCl (Zofran Inj) 4 mg Q6H PRN IV NAUSEA AND/OR VOMITING; Start at 00:30 Insulin Aspart (Novolog Insulin Pen) (Adult SC Insulin - Mild Algorithm)... Q6 SC Last administered on 05/04/17 17:44; Admin Dose 1 UNIT; Start 04/20/17 at 00:00 Insulin Glargine (Lantus) 14 unit QHS SC Last administered on 05/03/17 21:35; Admin Dose 14 UNIT; Start 04/20/17 at 21:00 Metoprolol Tartrate (Lopressor) 25 mg BID PO Last administered on 04/28/17 08: 14; Admin Dose 25 MG; Start 04/23/17 at 09:00; Status Future Hold Hydralazine HCl (Apresoline) 25 mg Q8 PO Last administered on 05/04/17 15:39; Admin Dose 25 MG; Start 04/22/17 at 22:00 Hydralazine HCl (Apresoline) 10 mg Q4H PRN IV SBP>170; Start 04/22/17 at 22:00 Nitroglycerin (Nitroglycerin (Sl Tab) 0.4 Mg) 1 tab Q5M PRN SL ANGINA; Start at 18:00 Amlodipine Besylate (Norvasc) 2.5 mg DAILY GTB Last administered on 05/04/17 09:09; Admin Dose 2.5 MG; Start 05/01/17 at 09:00 Acetaminophen/ Hydrocodone Bitart ([place] (5/325)) 1 tab Q6H PRN PO PAIN LEVEL 4 -7 Last administered on 05/03/17 12:31; Admin Dose 1 TAB; Start 05/03/17 at 03: 30 Acetaminophen (Tylenol Liquid) 650 mg Q4H PRN GTB PAIN AND OR ELEVATED TEMP; Start 05/03/17 at 03:30 Furosemide (Lasix) 40 mg DAILY@06 IV Last administered on 05/04/17 05:48; Admin Dose 40 MG; Start 05/04/17 at 06:00 Apixaban (Eliquis) 5 mg BID GTB Last administered on 05/04/17 09:09; Admin Dose 5 MG; Start 05/03/17 at 21:00 ABBY RAMOS MD May 04, 2017 17:55
--- NOTE | 2017-05-04 18:40 | CONS ---
Date/Time of Note Date/Time of Note DATE: 05/04/17 TIME: 18:39 Assessment/Plan Assessment/Plan Chief Complaint/Hosp Course SUBJECTIVE DATA: No events overnight. No fevers. Sleeping, looks comfortable INDWELLINGS: [place], PEG. GENERAL: Fragile, chronically ill-appearing elderly man who is in no distress. HEENT: Head atraumatic, normocephalic. Sclerae anicteric. Buccal mucosa dry. NECK: Supple. CHEST: Rise symmetrical. Breath sounds diminished at the bases. HEART: S1, S2. ABDOMEN: Soft, bowel sounds present. EXTREMITIES: Without cyanosis. ASSESSMENT: 1. Status post urinary tract infection. 2. Status post diarrhea 3. Dysphagia. 4. Dementia. 5. [id number] kidney disease. 6. Systemic inflammatory response syndrome. PLAN: Patient remains stable, off abx, continue aspiration precautions, repeat cx's prn DW staff Problems: Consultation Date/Type/Reason Admit Date/Time Apr 17, 2017 at 16:39 Initial Consult Date 04/18/17 Type of Consultation: ID Referring Provider: PORTIA OLIVER MD Exam/Review of Systems Vital Signs Vitals Vital Signs Date Time Temp Pulse Resp B/P Pulse Ox O2 Delivery O2 Flow Rate FiO2 05/04/17 18:38 97.4 100 20 141/65 94 05/04/17 14:19 21 05/04/17 07:36 Nasal Cannula 2.0 Intake and Output 05/03/17 05/03/17 05/04/17 14:59 22:59 06:59 Intake Total 1180 ml 772 ml Output Total 1200 ml 1200 ml Balance -20 ml -428 ml Results Result Diagram: 05/04/17 1137 05/04/17 0709 Results 24 hrs Laboratory Tests Test 05/03/17 21:33 05/04/17 00:19 05/04/17 05:57 05/04/17 07:09 Bedside Glucose 208 240 H 108 White Blood Count 14.4 H Red Blood Count 2.97 L Hemoglobin 7.8 L Hematocrit 25.2 L Mean Corpuscular Volume 84.8 Mean Corpuscular Hemoglobin 26.3 L Mean Corpuscular Hemoglobin Concent 31.0 L Red Cell Distribution Width 22.2 H Platelet Count 304 Mean Platelet Volume 11.2 H Neutrophils % 75.2 Lymphocytes % 9.3 L Monocytes % 7.6 Eosinophils % 6.5 Basophils % 0.8 Nucleated Red Blood Cells % 0.0 Neutrophils # (Manual) 10.8 H Lymphocytes # 1.3 Monocytes # 1.1 H Eosinophils # 0.9 H Basophils # 0.1 Nucleated Red Blood Cells # 0.0 Sodium Level 134 L Potassium Level 5.3 H Chloride Level 104 Carbon Dioxide Level 24 Anion Gap 11 Blood Urea Nitrogen 92 H Creatinine 2.66 H Glucose Level 83 Calcium Level 8.4 Test 05/04/17 11:37 05/04/17 12:12 05/04/17 17:20 Hemoglobin 8.1 L Hematocrit 24.8 L Bedside Glucose 92 141 Medications Medications Current Medications Acetaminophen (Tylenol Tab) 650 mg Q6H PRN GTB PAIN AND OR ELEVATED TEMP Last administered on 04/29/17 11:59; Admin Dose 650 MG; Start 04/17/17 at 18:00 Bisacodyl (Dulcolax Supp) 10 mg Q24H [place] Last administered on 05/03/17 18:47; Admin Dose 10 MG; Start 04/17/17 at 18:00 Diphenhydramine HCl (Benadryl) 25 mg Q6H PRN GTB ITCHING Last administered on 06:37; Admin Dose 25 MG; Start 04/17/17 at 18:00 Hydralazine HCl (Apresoline) 50 mg Q8 PRN GTB ELEVATED BLOOD PRESSURE Last administered on 04/18/17 13:18; Admin Dose 50 MG; Start 04/17/17 at 18:00 Multivitamins Therapeutic (Theragran) 1 tab DAILY GTB Last administered on 05/04 09:09; Admin Dose 1 TAB; Start 04/18/17 at 09:00 Miscellaneous Information 1 ea NOTE XX ; Start 04/17/17 at 21:00 Glucose (Glutose) 15 gm Q15M PRN PO DECREASED GLUCOSE; Start 04/17/17 at 21:00 Glucose (Glutose) 22.5 gm Q15M PRN PO DECREASED GLUCOSE; Start 04/17/17 at 21: 00 Dextrose (D50w Syringe) 25 ml Q15M PRN IV DECREASED GLUCOSE Last administered on 04/20/17 17:22; Admin Dose 25 ML; Start 04/17/17 at 21:00 Dextrose (D50w Syringe) 50 ml Q15M PRN IV DECREASED GLUCOSE; Start 04/17/17 at 21:00 Glucagon (Glucagen) 1 mg Q15M PRN IM DECREASED GLUCOSE; Start 04/17/17 at 21:00 Glucose (Glutose) 15 gm Q15M PRN BUCCAL DECREASED GLUCOSE; Start 04/17/17 at 21 :00 Ondansetron HCl (Zofran Inj) 4 mg Q6H PRN IV NAUSEA AND/OR VOMITING; Start at 00:30 Insulin Aspart (Novolog Insulin Pen) (Adult SC Insulin - Mild Algorithm)... Q6 [place] Last administered on 05/04/17 17:44; Admin Dose 1 UNIT; Start 04/20/17 at 00:00 Insulin Glargine (Lantus) 14 unit QHS SC Last administered on 05/03/17 21:35; Admin Dose 14 UNIT; Start 04/20/17 at 21:00 Metoprolol Tartrate (Lopressor) 25 mg BID PO Last administered on 04/28/17 08: 14; Admin Dose 25 MG; Start 04/23/17 at 09:00; Status Future Hold Hydralazine HCl (Apresoline) 25 mg Q8 PO Last administered on 05/04/17 15:39; Admin Dose 25 MG; Start 04/22/17 at 22:00 Hydralazine HCl (Apresoline) 10 mg Q4H PRN IV SBP>170; Start 04/22/17 at 22:00 Nitroglycerin (Nitroglycerin (Sl Tab) 0.4 Mg) 1 tab Q5M PRN SL ANGINA; Start at 18:00 Amlodipine Besylate (Norvasc) 2.5 mg DAILY GTB Last administered on 05/04/17 09:09; Admin Dose 2.5 MG; Start 05/01/17 at 09:00 Acetaminophen/ Hydrocodone Bitart ([place]'Brien (5/325)) 1 tab Q6H PRN PO PAIN LEVEL 4 -7 Last administered on 05/03/17 12:31; Admin Dose 1 TAB; Start 05/03/17 at 03: 30 Acetaminophen (Tylenol Liquid) 650 mg Q4H PRN GTB PAIN AND OR ELEVATED TEMP; Start 05/03/17 at 03:30 Furosemide (Lasix) 40 mg DAILY@06 IV Last administered on 05/04/17 05:48; Admin Dose 40 MG; Start 05/04/17 at 06:00 Apixaban (Eliquis) 5 mg BID GTB Last administered on 05/04/17 09:09; Admin Dose 5 MG; Start 05/03/17 at 21:00 KAYLA CASTREJON NP May 04, 2017 18:40
[2017-05-04] MEDS: INSULIN GLARGINE [LANtus] 3 ML PEN SC SCH (22:06)
[2017-05-05] VITALS (15 sets, daily range): BP systolic 123–153; BP diastolic 62–72; PULSE 68–98; RESP 18–20
[2017-05-05] MEDS: Insulin NOVOLOG SS MILD Algorithm (NPO/TPN/ENTERAL FEEDS) SC SCH ×4 (00:36→17:41)
[2017-05-05] MEDS: ALBUTEROL/IPRATROPIUM (NEB) 3 ML AMP HHN SCH ×4 (01:51→19:12)
[2017-05-05] MEDS: FUROSEMIDE 40 MG INJ IV SCH (06:56)
[2017-05-05 07:24] LABS: BASOPHIL # 0.1 10^3/ul (0.0-0.1); BASOPHILS % 0.8 % (0.0-2.0); EOSINOPHILS # 0.3 10^3/ul (0.0-0.5); EOSINOPHILS % 2.6 % (0.0-7.0); HEMATOCRIT 26.7 % (42.0-52.0); HEMOGLOBIN 8.5 g/dl (14.0-18.0); LYMPHOCYTES # 1.2 10^3/ul (0.8-2.9); LYMPHOCYTES % 9.6 % (15.0-51.0); MEAN CORPUSCULAR HEMOGLOBIN 26.7 pg (29.0-33.0); MEAN CORPUSCULAR HGB CONC 31.8 g/dl (32.0-37.0); MEAN PLATELET VOLUME 11.2 fl (7.4-10.4); MONOCYTES % 8.2 % (0.0-11.0); NEUTROPHILS % 78.4 % (39.0-77.0); PLATELET COUNT 293 10^3/UL (140-415); RED BLOOD COUNT 3.18 10^6/ul (4.70-6.10); RED CELL DISTRIBUTION WIDTH 20.6 % (11.5-14.5)
[2017-05-05 07:52] LABS: CALCIUM 8.4 mg/dl (8.4-10.2); CREATININE 2.59 mg/dl (0.61-1.24); POTASSIUM 4.7 mmol/L (3.5-5.1)
[2017-05-05] MEDS: APIXABAN 5 MG TABLET GTB SCH (09:03)
[2017-05-05] MEDS: MULTIVITAMINS THERAPEUTIC TAB GTB SCH (09:03)
[2017-05-05] MEDS: AMLODIPINE 2.5 MG TAB GTB SCH (09:03)
--- NOTE | 2017-05-05 11:40 | PN ---
Date/Time of Note Date/Time of Note DATE: 05/05/17 TIME: 11:36 Assessment/Plan VTE Prophylaxis VTE Prophylaxis Intervention: other Lines/Catheters IV Catheter Type (from Nrs): Saline Lock Urinary Cath still in place: Yes Assessment/Plan Assessment/Plan - Anemia- Hgb dropped. - per gi - Leukocytosis sec to UTI- maira Albicans - -Acute cystitis without hematuria - sp Vanco/Zosyn - fu urine c/s - ID consult- Dr Garcia notified - am labs -Acute weakness sec to Dizziness - cardiology consult - 2D Echo am- LVEF 65% - Electrolyte imbalance- per nephrology - Hyperkalemia- RESOLVED - Hypernatremia - Hyperphosphatemia - Acute renal failure on Chronic Kidney disease - per nephro consult- dr Cheema - Dysphagia - sp PEG placement - aspiration precautions - cont tube feeding - History of paroxysmal atrial fibrillation.- no acute issues. SR at present - Diabetes mellitus. - Glycemic control - Dietary consult - art educator consult - Chronic kidney disease. - History of cerebrovascular accident- no acute issues reported - Hx AMS Placement pending, Plan of care dw Dr Patel/staff Subjective 24 Hr Interval Summary Free Text/Dictation Patient has blood clots in stomach aspiration- stat H/H ordered- fu, Dr Cabral notified, dw staff, dw dr cheema- -patient will benefit from once a week HD, awaiting family consent. Constitutional: requiring O2 Respiratory: no complaints Cardiovascular: no complaints Exam/Review of Systems Vital Signs Vitals Vital Signs Date Time Temp Pulse Resp B/P Pulse Ox O2 Delivery O2 Flow Rate FiO2 05/05/17 09:07 89 05/05/17 09:01 20 95 21 05/05/17 07:52 97.9 149/68 05/05/17 01:51 2.0 05/05/17 01:51 Nasal Cannula Intake and Output 05/04/17 05/04/17 05/05/17 15:00 23:00 07:00 Intake Total 800 ml 1000 ml Output Total 2500 ml 2300 ml Balance -1700 ml -1300 ml Exam Constitutional: alert Respiratory: clear to auscultation, normal air movement Cardiovascular: nl pulses, regular rate and rhythm Gastrointestinal: non-tender, soft Musculoskeletal: nl extremities to inspection Extremities: normal pulses Neurological: confused, nl speech Results Result Diagram: 05/05/1711 9/13/17 0711 Results 24 hrs Laboratory Tests Test 05/04/17 11:37 05/04/17 12:12 05/04/17 17:20 05/04/17 21:16 Hemoglobin 8.1 L Hematocrit 24.8 L Bedside Glucose 92 141 190 Test 05/05/17 00:16 05/05/17 05:53 05/05/17 06:40 05/05/17 07:11 Bedside Glucose 209 103 Lab Scanned Report BLOOD TRANSFUSION White Blood Count 12.0 H Red Blood Count 3.18 L Hemoglobin 8.5 L Hematocrit 26.7 L Mean Corpuscular Volume 84.0 Mean Corpuscular Hemoglobin 26.7 L Mean Corpuscular Hemoglobin Concent 31.8 L Red Cell Distribution Width 20.6 H Platelet Count 293 Mean Platelet Volume 11.2 H Neutrophils % 78.4 H Lymphocytes % 9.6 L Monocytes % 8.2 Eosinophils % 2.6 Basophils % 0.8 Nucleated Red Blood Cells % 0.0 Neutrophils # (Manual) 9.4 H Lymphocytes # 1.2 Monocytes # 1.0 H Eosinophils # 0.3 Basophils # 0.1 Nucleated Red Blood Cells # 0.0 Sodium Level 136 Potassium Level 4.7 Chloride Level 104 Carbon Dioxide Level 28 Anion Gap 9 Blood Urea Nitrogen 96 H Creatinine 2.59 H Glucose Level 95 Calcium Level 8.4 Medications Medications Current Medications Acetaminophen (Tylenol Tab) 650 mg Q6H PRN GTB PAIN AND OR ELEVATED TEMP Last administered on 04/29/17 11:59; Admin Dose 650 MG; Start 04/17/17 at 18:00 Bisacodyl (Dulcolax Supp) 10 mg Q24H [place] Last administered on 05/03/17 18:47; Admin Dose 10 MG; Start 04/17/17 at 18:00 Diphenhydramine HCl (Benadryl) 25 mg Q6H PRN GTB ITCHING Last administered on 06:37; Admin Dose 25 MG; Start 04/17/17 at 18:00 Hydralazine HCl (Apresoline) 50 mg Q8 PRN GTB ELEVATED BLOOD PRESSURE Last administered on 04/18/17 13:18; Admin Dose 50 MG; Start 04/17/17 at 18:00 Multivitamins Therapeutic (Theragran) 1 tab DAILY GTB Last administered on 05/05 09:03; Admin Dose 1 TAB; Start 04/18/17 at 09:00 Miscellaneous Information 1 ea NOTE XX ; Start 04/17/17 at 21:00 Glucose (Glutose) 15 gm Q15M PRN PO DECREASED GLUCOSE; Start 04/17/17 at 21:00 Glucose (Glutose) 22.5 gm Q15M PRN PO DECREASED GLUCOSE; Start 04/17/17 at 21: 00 Dextrose (D50w Syringe) 25 ml Q15M PRN IV DECREASED GLUCOSE Last administered on 04/20/17 17:22; Admin Dose 25 ML; Start 04/17/17 at 21:00 Dextrose (D50w Syringe) 50 ml Q15M PRN IV DECREASED GLUCOSE; Start 04/17/17 at 21:00 Glucagon (Glucagen) 1 mg Q15M PRN IM DECREASED GLUCOSE; Start 04/17/17 at 21:00 Glucose (Glutose) 15 gm Q15M PRN BUCCAL DECREASED GLUCOSE; Start 04/17/17 at 21 :00 Ondansetron HCl (Zofran Inj) 4 mg Q6H PRN IV NAUSEA AND/OR VOMITING; Start at 00:30 Insulin Aspart (Novolog Insulin Pen) (Adult SC Insulin - Mild Algorithm)... Q6 [place] Last administered on 05/05/17 00:36; Admin Dose 1 UNIT; Start 04/20/17 at 00:00 Insulin Glargine (Lantus) 14 unit QHS SC Last administered on 05/04/17 22:06; Admin Dose 14 UNIT; Start 04/20/17 at 21:00 Metoprolol Tartrate (Lopressor) 25 mg BID PO Last administered on 04/28/17 08: 14; Admin Dose 25 MG; Start 04/23/17 at 09:00; Status Future Hold Hydralazine HCl (Apresoline) 25 mg Q8 PO Last administered on 05/05/17 06:56; Admin Dose 25 MG; Start 04/22/17 at 22:00 Hydralazine HCl (Apresoline) 10 mg Q4H PRN IV SBP>170; Start 04/22/17 at 22:00 Nitroglycerin (Nitroglycerin (Sl Tab) 0.4 Mg) 1 tab Q5M PRN SL ANGINA; Start at 18:00 Amlodipine Besylate (Norvasc) 2.5 mg DAILY GTB Last administered on 05/05/17 09:03; Admin Dose 2.5 MG; Start 05/01/17 at 09:00 Acetaminophen/ Hydrocodone Bitart ([place] (5/325)) 1 tab Q6H PRN PO PAIN LEVEL 4 -7 Last administered on 05/03/17 12:31; Admin Dose 1 TAB; Start 05/03/17 at 03: 30 Acetaminophen (Tylenol Liquid) 650 mg Q4H PRN GTB PAIN AND OR ELEVATED TEMP; Start 05/03/17 at 03:30 Furosemide (Lasix) 40 mg DAILY@06 IV Last administered on 05/05/17 06:56; Admin Dose 40 MG; Start 05/04/17 at 06:00 Pantoprazole (Protonix Iv) 40 mg BID@06,18 IV ; Start 05/05/17 at 18:00 MARCY WEINER May 05, 2017 11:40
--- NOTE | 2017-05-05 11:44 | PN ---
Date/Time of Note Date/Time of Note DATE: 05/05/17 TIME: 11:42 Assessment/Plan Lines/Catheters IV C[facility]ter Type (from [facility]): Saline Lock Urinary Cath still in place: Yes Assessment/Plan Assessment/Plan - Anemia- Hgb dropped. - per gi - Leukocytosis sec to UTI- maira Albicans - -Acute cystitis without hematuria - sp Vanco/Zosyn - fu urine c/s - ID consult- Dr Garcia notified - am labs -Acute weakness sec to Dizziness - cardiology consult - 2D Echo am- LVEF 65% - Electrolyte imbalance- per nephrology - Hyperkalemia- RESOLVED - Hypernatremia - Hyperphosphatemia - Acute renal failure on Chronic Kidney disease - per nephro consult- dr Cheema - Dysphagia - sp PEG placement - aspiration precautions - cont tube feeding - History of paroxysmal atrial fibrillation.- no acute issues. SR at present - Diabetes mellitus. - Glycemic control - Dietary consult - cosmetology educator consult - Chronic kidney disease. - History of cerebrovascular accident- no acute issues reported - Hx AMS Placement pending, Plan of care dw Dr Patel/staff Subjective 24 Hr Interval Summary Free Text/Dictation Late entry- 05/04/2017 blood noted on sheet while cleaning patient- possible lower GI bleed, stool for ob- fu, K elevated- will give Kayexalalte 15 gm po x1. fu am labs Exam/Review of Systems Vital Signs Vitals Vital Signs Date Time Temp Pulse Resp B/P Pulse Ox O2 Delivery O2 Flow Rate FiO2 05/05/17 09:07 89 05/05/17 09:01 20 95 21 05/05/17 07:52 97.9 149/68 05/05/17 01:51 2.0 05/05/17 01:51 Nasal Cannula Intake and Output 05/04/17 05/04/17 05/05/17 15:00 23:00 07:00 Intake Total 800 ml 1000 ml Output Total 2500 ml 2300 ml Balance -1700 ml -1300 ml Results Result Diagram: 05/05/17 0711 05/05/17 0711 Results 24 hrs Laboratory Tests Test 05/04/17 12:12 05/04/17 17:20 05/04/17 21:16 05/05/17 00:16 Bedside Glucose 92 141 190 209 Test 05/05/17 05:53 05/05/17 06:40 05/05/17 07:11 Lab Scanned Report BLOOD TRANSFUSION Bedside Glucose 103 White Blood Count 12.0 H Red Blood Count 3.18 L Hemoglobin 8.5 L Hematocrit 26.7 L Mean Corpuscular Volume 84.0 Mean Corpuscular Hemoglobin 26.7 L Mean Corpuscular Hemoglobin Concent 31.8 L Red Cell Distribution Width 20.6 H Platelet Count 293 Mean Platelet Volume 11.2 H Neutrophils % 78.4 H Lymphocytes % 9.6 L Monocytes % 8.2 Eosinophils % 2.6 Basophils % 0.8 Nucleated Red Blood Cells % 0.0 Neutrophils # (Manual) 9.4 H Lymphocytes # 1.2 Monocytes # 1.0 H Eosinophils # 0.3 Basophils # 0.1 Nucleated Red Blood Cells # 0.0 Sodium Level 136 Potassium Level 4.7 Chloride Level 104 Carbon Dioxide Level 28 Anion Gap 9 Blood Urea Nitrogen 96 H Creatinine 2.59 H Glucose Level 95 Calcium Level 8.4 Medications Medications Current Medications Acetaminophen (Tylenol Tab) 650 mg Q6H PRN GTB PAIN AND OR ELEVATED TEMP Last administered on 04/29/17 11:59; Admin Dose 650 MG; Start 04/17/17 at 18:00 Bisacodyl (Dulcolax Supp) 10 mg Q24H [place] Last administered on 05/03/17 18:47; Admin Dose 10 MG; Start 04/17/17 at 18:00 Diphenhydramine HCl (Benadryl) 25 mg Q6H PRN GTB ITCHING Last administered on 06:37; Admin Dose 25 MG; Start 04/17/17 at 18:00 Hydralazine HCl (Apresoline) 50 mg Q8 PRN GTB ELEVATED BLOOD PRESSURE Last administered on 04/18/17 13:18; Admin Dose 50 MG; Start 04/17/17 at 18:00 Multivitamins Therapeutic (Theragran) 1 tab DAILY GTB Last administered on 05/05 09:03; Admin Dose 1 TAB; Start 04/18/17 at 09:00 Miscellaneous Information 1 ea NOTE XX ; Start 04/17/17 at 21:00 Glucose (Glutose) 15 gm Q15M PRN PO DECREASED GLUCOSE; Start 04/17/17 at 21:00 Glucose (Glutose) 22.5 gm Q15M PRN PO DECREASED GLUCOSE; Start 04/17/17 at 21: 00 Dextrose (D50w Syringe) 25 ml Q15M PRN IV DECREASED GLUCOSE Last administered on 04/20/17 17:22; Admin Dose 25 ML; Start 04/17/17 at 21:00 Dextrose (D50w Syringe) 50 ml Q15M PRN IV DECREASED GLUCOSE; Start 04/17/17 at 21:00 Glucagon (Glucagen) 1 mg Q15M PRN IM DECREASED GLUCOSE; Start 04/17/17 at 21:00 Glucose (Glutose) 15 gm Q15M PRN BUCCAL DECREASED GLUCOSE; Start 04/17/17 at 21 :00 Ondansetron HCl (Zofran Inj) 4 mg Q6H PRN IV NAUSEA AND/OR VOMITING; Start at 00:30 Insulin Aspart (Novolog Insulin Pen) (Adult SC Insulin - Mild Algorithm)... Q6 [place] Last administered on 05/05/17 00:36; Admin Dose 1 UNIT; Start 04/20/17 at 00:00 Insulin Glargine (Lantus) 14 unit QHS [place] Last administered on 05/04/17 22:06; Admin Dose 14 UNIT; Start 04/20/17 at 21:00 Metoprolol Tartrate (Lopressor) 25 mg BID PO Last administered on 04/28/17 08: 14; Admin Dose 25 MG; Start 04/23/17 at 09:00; Status Future Hold Hydralazine HCl (Apresoline) 25 mg Q8 PO Last administered on 05/05/17 06:56; Admin Dose 25 MG; Start 04/22/17 at 22:00 Hydralazine HCl (Apresoline) 10 mg Q4H PRN IV SBP>170; Start 04/22/17 at 22:00 Nitroglycerin (Nitroglycerin (Sl Tab) 0.4 Mg) 1 tab Q5M PRN SL ANGINA; Start at 18:00 Amlodipine Besylate (Norvasc) 2.5 mg DAILY GTB Last administered on 05/05/17 09:03; Admin Dose 2.5 MG; Start 05/01/17 at 09:00 Acetaminophen/ Hydrocodone Bitart ([place] (5/325)) 1 tab Q6H PRN PO PAIN LEVEL 4 -7 Last administered on 05/03/17 12:31; Admin Dose 1 TAB; Start 05/03/17 at 03: 30 Acetaminophen (Tylenol Liquid) 650 mg Q4H PRN GTB PAIN AND OR ELEVATED TEMP; Start 05/03/17 at 03:30 Furosemide (Lasix) 40 mg DAILY@06 IV Last administered on 05/05/17 06:56; Admin Dose 40 MG; Start 05/04/17 at 06:00 Pantoprazole (Protonix Iv) 40 mg BID@06,18 IV ; Start 05/05/17 at 18:00 MARCY WEINER May 05, 2017 11:44
[2017-05-05 11:53] LABS: BASOPHIL # 0.1 10^3/ul (0.0-0.1); BASOPHILS % 0.6 % (0.0-2.0); EOSINOPHILS # 0.4 10^3/ul (0.0-0.5); EOSINOPHILS % 3.5 % (0.0-7.0); HEMATOCRIT 25.4 % (42.0-52.0); HEMOGLOBIN 8.1 g/dl (14.0-18.0); LYMPHOCYTES # 1.1 10^3/ul (0.8-2.9); LYMPHOCYTES % 8.8 % (15.0-51.0); MEAN CORPUSCULAR HGB CONC 31.9 g/dl (32.0-37.0); MEAN CORPUSCULAR VOLUME 84.7 fl (82.0-101.0); MEAN PLATELET VOLUME 11.1 fl (7.4-10.4); MONOCYTES % 8.3 % (0.0-11.0); NEUTROPHILS % 78.5 % (39.0-77.0); PLATELET COUNT 280 10^3/UL (140-415); RED CELL DISTRIBUTION WIDTH 20.7 % (11.5-14.5); WHITE BLOOD COUNT 12.5 10^3/ul (4.8-10.8)
[2017-05-05] MEDS: ACETAMINOPHEN 325 MG TAB GTB PRN (12:01)
[2017-05-05] MEDS: DEXTROSE 5%-0.45% NACL 1,000 ML IV SCH (12:01)
[2017-05-05] MEDS: METOCLOPRAMIDE 10 MG INJ IV SCH ×2 (12:04→22:14)
[2017-05-05 12:30] LABS: Arterial COHb 0.3 % (0.0-3.0); Arterial Fraction of Oxyhgb 97.4 % (93.0-99.0); Arterial HCO3 23.8 mmol/L (22.0-26.0); Arterial MetHb 0.5 % (0.0-1.5); MODE NASAL CANNULA
--- NOTE | 2017-05-05 15:24 | CONS ---
Date/Time of Note Date/Time of Note DATE: 05/05/17 TIME: 15:16 Assessment/Plan Assessment/Plan Chief Complaint/Hosp Course IMP: 1.HTN-Now improved and tolerating current medications 2.H/O PAF-REamons in SR at this time 3.renal failure 4.dysphagia 5. AMS 6. Heart gfxkg-svirzxdni-xukrzq HR.improved with holding BB 7. Chest pain-resolved/negative troponin/no change on serial ecg 8. Occasional PVC's 9. CHF-diastolic acute on chronic REcc: -Tele -serial ecg's -Continue amio low dose 100 mg as tolerated only -follow rhythm closely -Continue norvasc/hydralazine with slight increase to improve BP control -Continue to Hold BB given wenkebach -Follow volume status closely and increase lasix diuresis and follow volume status closely. Possible initiation of HD -Ongoing eval of anemia Problems: Consultation Date/Type/Reason Admit Date/Time Apr 17, 2017 at 16:39 Initial Consult Date 04/18/17 Type of Consultation: cardiology Reason for Consultation CHF Referring Provider: PORTIA OLIVER MD Exam/Review of Systems Vital Signs Vitals Vital Signs Date Time Temp Pulse Resp B/P Pulse Ox O2 Delivery O2 Flow Rate FiO2 05/05/17 15:08 3.0 05/05/17 15:04 84 20 100 32 05/05/17 14:55 97.5 140/69 Nasal Cannula Intake and Output 05/04/17 05/04/17 05/05/17 15:00 23:00 07:00 Intake Total 800 ml 1000 ml Output Total 2500 ml 2300 ml Balance -1700 ml -1300 ml Exam Review of Systems: CONSTITUTIONAL: No fevers, chills. PULMONARY: No sob CARDIOVASCULAR: No chest pain/palpitations GASTROINTESTINAL: No nausea/vomiting. GENITOURINARY: No hematuria/dysuria. MUSCULOSKELETAL: No myagias/arthalgias. PSYCHIATRIC: The patient denies depression. NEUROLOGIC: No weakness Constitutional: alert Psych: no complaints Head: normocephalic ENMT: mucosa pink and moist Neck: jvd (9-10 cm water), supple Respiratory: diminished breath sounds Cardiovascular: regular rate and rhythm Gastrointestinal: non-tender, soft Musculoskeletal: muscle tone (normal) Extremities: pitting pedal edema (bilateral) Neurological: other (No focal deficits) Results Result Diagram: 05/05/17 1120 05/05/17 0711 Results 24 hrs Laboratory Tests Test 05/04/17 17:20 05/04/17 21:16 05/05/17 00:16 05/05/17 05:53 Bedside Glucose 141 190 209 Lab Scanned Report BLOOD TRANSFUSION Test 05/05/17 06:40 05/05/17 07:11 05/05/17 11:20 05/05/17 11:44 Bedside Glucose 103 166 White Blood Count 12.0 H 12.5 H Red Blood Count 3.18 L 3.00 L Hemoglobin 8.5 L 8.1 L Hematocrit 26.7 L 25.4 L Mean Corpuscular Volume 84.0 84.7 Mean Corpuscular Hemoglobin 26.7 L 27.0 L Mean Corpuscular Hemoglobin Concent 31.8 L 31.9 L Red Cell Distribution Width 20.6 H 20.7 H Platelet Count 293 280 Mean Platelet Volume 11.2 H 11.1 H Neutrophils % 78.4 H 78.5 H Lymphocytes % 9.6 L 8.8 L Monocytes % 8.2 8.3 Eosinophils % 2.6 3.5 Basophils % 0.8 0.6 Nucleated Red Blood Cells % 0.0 0.0 Neutrophils # (Manual) 9.4 H Lymphocytes # 1.2 1.1 Monocytes # 1.0 H 1.0 H Eosinophils # 0.3 0.4 Basophils # 0.1 0.1 Nucleated Red Blood Cells # 0.0 0.0 Sodium Level 136 Potassium Level 4.7 Chloride Level 104 Carbon Dioxide Level 28 Anion Gap 9 Blood Urea Nitrogen 96 H Creatinine 2.59 H Glucose Level 95 Calcium Level 8.4 Test 05/05/17 11:58 05/05/17 13:10 Blood Gas Specimen Source Blood arterial Arterial Blood Date Drawn 05/05/2017 12:10:15 PM Arterial Blood pH (Temp corrected) 7.505 H Arterial Blood pCO2 (Temp correct) 30.9 L Arterial Blood pO2 (Temp corrected) 120.0 H Arterial Blood HCO3 23.8 Arterial Blood Base Excess 1.0 Arterial Blood Oxygen Saturation 98.2 H Ankit Test N/A Arterial Blood Gas Puncture Site Right Brachial Arterial Blood Carboxyhemoglobin 0.3 Arterial Blood Methemoglobin 0.5 Blood Gas A-a O2 Differential 36.0 H Oxyhemoglobin Percent 97.4 Total Hemoglobin 9.0 L Blood Gas Temperature 37.0 Blood Gas Modality NASAL CANNULA FiO2 27.0 Blood Gas Notified Whom JLD Blood Gas Notified Time 05/05/2017 12:30:02 PM Troponin I 0.061 Medications Medications Current Medications Acetaminophen (Tylenol Tab) 650 mg Q6H PRN GTB PAIN AND OR ELEVATED TEMP Last administered on 05/05/17 12:01; Admin Dose 650 MG; Start 04/17/17 at 18:00 Bisacodyl (Dulcolax Supp) 10 mg Q24H [place] Last administered on 05/03/17 18:47; Admin Dose 10 MG; Start 04/17/17 at 18:00 Diphenhydramine HCl (Benadryl) 25 mg Q6H PRN GTB ITCHING Last administered on 06:37; Admin Dose 25 MG; Start 04/17/17 at 18:00 Hydralazine HCl (Apresoline) 50 mg Q8 PRN GTB ELEVATED BLOOD PRESSURE Last administered on 04/18/17 13:18; Admin Dose 50 MG; Start 04/17/17 at 18:00 Multivitamins Therapeutic (Theragran) 1 tab DAILY GTB Last administered on 05/05 09:03; Admin Dose 1 TAB; Start 04/18/17 at 09:00 Miscellaneous Information 1 ea NOTE XX ; Start 04/17/17 at 21:00 Glucose (Glutose) 15 gm Q15M PRN PO DECREASED GLUCOSE; Start 04/17/17 at 21:00 Glucose (Glutose) 22.5 gm Q15M PRN PO DECREASED GLUCOSE; Start 04/17/17 at 21: 00 Dextrose (D50w Syringe) 25 ml Q15M PRN IV DECREASED GLUCOSE Last administered on 04/20/17 17:22; Admin Dose 25 ML; Start 04/17/17 at 21:00 Dextrose (D50w Syringe) 50 ml Q15M PRN IV DECREASED GLUCOSE; Start 04/17/17 at 21:00 Glucagon (Glucagen) 1 mg Q15M PRN IM DECREASED GLUCOSE; Start 04/17/17 at 21:00 Glucose (Glutose) 15 gm Q15M PRN BUCCAL DECREASED GLUCOSE; Start 04/17/17 at 21 :00 Ondansetron HCl (Zofran Inj) 4 mg Q6H PRN IV NAUSEA AND/OR VOMITING; Start at 00:30 Insulin Aspart (Novolog Insulin Pen) (Adult SC Insulin - Mild Algorithm)... Q6 SC Last administered on 05/05/17 11:50; Admin Dose 1 UNIT; Start 04/20/17 at 00:00 Insulin Glargine (Lantus) 14 unit QHS SC Last administered on 05/04/17 22:06; Admin Dose 14 UNIT; Start 04/20/17 at 21:00 Metoprolol Tartrate (Lopressor) 25 mg BID PO Last administered on 04/28/17 08: 14; Admin Dose 25 MG; Start 04/23/17 at 09:00; Status Future Hold Hydralazine HCl (Apresoline) 25 mg Q8 PO Last administered on 05/05/17 14:46; Admin Dose 25 MG; Start 04/22/17 at 22:00 Hydralazine HCl (Apresoline) 10 mg Q4H PRN IV SBP>170; Start 04/22/17 at 22:00 Nitroglycerin (Nitroglycerin (Sl Tab) 0.4 Mg) 1 tab Q5M PRN SL ANGINA; Start at 18:00 Amlodipine Besylate (Norvasc) 2.5 mg DAILY GTB Last administered on 05/05/17 09:03; Admin Dose 2.5 MG; Start 05/01/17 at 09:00 Acetaminophen/ Hydrocodone Bitart ([place] (5/325)) 1 tab Q6H PRN PO PAIN LEVEL 4 -7 Last administered on 05/03/17 12:31; Admin Dose 1 TAB; Start 05/03/17 at 03: 30 Acetaminophen (Tylenol Liquid) 650 mg Q4H PRN GTB PAIN AND OR ELEVATED TEMP; Start 05/03/17 at 03:30 Furosemide (Lasix) 40 mg DAILY@06 IV Last administered on 05/05/17 06:56; Admin Dose 40 MG; Start 05/04/17 at 06:00 Pantoprazole (Protonix Iv) 40 mg BID@06,18 IV ; Start 05/05/17 at 18:00 Metoclopramide HCl 5 mg 5 mg TID IV Last administered on 05/05/17 12:04; Admin Dose 5 MG; Start 05/05/17 at 13:00 Dextrose/Sodium Chloride (D5-1/2ns) 1,000 ml @ 50 mls/hr Q20H IV Last administered on 05/05/17t 12:01; Admin Dose 50 MLS/HR; Start 05/05/17 at 12:00 LESLI SHEA May 05, 2017 15:24
[2017-05-05] MEDS: BISACODYL 10 MG SUPP PR SCH (17:35)
[2017-05-05] MEDS: FUROSEMIDE 20 MG INJ IV SCH (17:35)
[2017-05-05] MEDS: PANTOPRAZOLE 40 MG INJ IV SCH (17:35)
--- NOTE | 2017-05-05 17:57 | CONS ---
Date/Time of Note Date/Time of Note DATE: 05/05/17 TIME: 17:55 Assessment/Plan Assessment/Plan Additional Assessment/Plan Additional Assessment/Plan IMPRESSION: 1. Anemia may be anemia of chronic disease. Rule out gastrointestinal blood loss. 2. Dysphagia status post percutaneous endoscopic gastrostomy. 3. Diabetes mellitus. 4. Cerebrovascular accident. 5. End-stage renal disease, on dialysis. 6. Diabetes mellitus. 7. Legally blind. 8. Status post urinary tract infection. 9. Hematemesis versus hemoptysis PLAN: work him up for the anemia, stool for occult blood, B12, folic acid, and Retic count all within normal limit but it appears this is anemia of chronic disease Stool for occult blood is negative Blood thinner has been stopped Patient was started on Reglan for his hiccup and will monitor H&H Consultation Date/Type/Reason Admit Date/Time Apr 17, 2017 at 16:39 Initial Consult Date 04/18/17 Type of Consultation: cardiology Referring Provider: PORTIA OLIVER MD 24 HR Interval Summary Free Text/Dictation Per staff patient had a hematemesis versus hemoptysis this morning. Exam/Review of Systems Vital Signs Vitals Vital Signs Date Time Temp Pulse Resp B/P Pulse Ox O2 Delivery O2 Flow Rate FiO2 05/05/17 16:30 68 05/05/17 16:21 98.4 20 123/72 99 05/05/17 15:08 3.0 05/05/17 15:04 32 05/05/17 14:55 Nasal Cannula Intake and Output 05/04/17 05/04/17 05/05/17 15:00 23:00 07:00 Intake Total 800 ml 1000 ml Output Total 2500 ml 2300 ml Balance -1700 ml -1300 ml Exam Constitutional: alert, oriented, well developed Psych: nl mood/affect, no complaints Head: atraumatic, normocephalic Eyes: EOMI, PERRL, nl conjunctiva, nl lids, nl sclera ENMT: nl external ears & nose, nl lips & teeth, nl nasal mucosa & septum Neck: non-tender, supple Respiratory: clear to auscultation, normal air movement Cardiovascular: nl pulses, regular rate and rhythm Gastrointestinal: nl liver, spleen, non-tender, soft Musculoskeletal: nl extremities to inspection, nl gait and stance Extremities: normal pulses Neurological: CLAM SHUCKER II-XII intact, nl mental status, nl speech, nl strength Skin: nl turgor, No rash or lesions Lymph: nl lymph nodes Results Result Diagram: 05/05/17 1120 05/05/17 0711 Results 24 hrs Laboratory Tests Test 05/04/17 21:16 05/05/17 00:16 05/05/17 05:53 05/05/17 06:40 Bedside Glucose 190 209 103 Lab Scanned Report BLOOD TRANSFUSION Test 05/05/17 07:11 05/05/17 11:20 05/05/17 11:44 05/05/17 11:58 White Blood Count 12.0 H 12.5 H Red Blood Count 3.18 L 3.00 L Hemoglobin 8.5 L 8.1 L Hematocrit 26.7 L 25.4 L Mean Corpuscular Volume 84.0 84.7 Mean Corpuscular Hemoglobin 26.7 L 27.0 L Mean Corpuscular Hemoglobin Concent 31.8 L 31.9 L Red Cell Distribution Width 20.6 H 20.7 H Platelet Count 293 280 Mean Platelet Volume 11.2 H 11.1 H Neutrophils % 78.4 H 78.5 H Lymphocytes % 9.6 L 8.8 L Monocytes % 8.2 8.3 Eosinophils % 2.6 3.5 Basophils % 0.8 0.6 Nucleated Red Blood Cells % 0.0 0.0 Neutrophils # (Manual) 9.4 H Lymphocytes # 1.2 1.1 Monocytes # 1.0 H 1.0 H Eosinophils # 0.3 0.4 Basophils # 0.1 0.1 Nucleated Red Blood Cells # 0.0 0.0 Sodium Level 136 Potassium Level 4.7 Chloride Level 104 Carbon Dioxide Level 28 Anion Gap 9 Blood Urea Nitrogen 96 H Creatinine 2.59 H Glucose Level 95 Calcium Level 8.4 Bedside Glucose 166 Blood Gas Specimen Source Blood arterial Arterial Blood Date Drawn 05/05/2017 12:10:15 PM Arterial Blood pH (Temp corrected) 7.505 H Arterial Blood pCO2 (Temp correct) 30.9 L Arterial Blood pO2 (Temp corrected) 120.0 H Arterial Blood HCO3 23.8 Arterial Blood Base Excess 1.0 Arterial Blood Oxygen Saturation 98.2 H Ankit Test N/A Arterial Blood Gas Puncture Site Right Brachial Arterial Blood Carboxyhemoglobin 0.3 Arterial Blood Methemoglobin 0.5 Blood Gas A-a O2 Differential 36.0 H Oxyhemoglobin Percent 97.4 Total Hemoglobin 9.0 L Blood Gas Temperature 37.0 Blood Gas Modality NASAL CANNULA FiO2 27.0 Blood Gas Notified Whom JLD Blood Gas Notified Time 05/05/2017 12:30:02 PM Test 05/05/17 13:10 05/05/17 17:33 Troponin I 0.061 Bedside Glucose 142 Medications Medications Current Medications Acetaminophen (Tylenol Tab) 650 mg Q6H PRN GTB PAIN AND OR ELEVATED TEMP Last administered on 05/05/17 12:01; Admin Dose 650 MG; Start 04/17/17 at 18:00 Bisacodyl (Dulcolax Supp) 10 mg Q24H [place] Last administered on 05/05/17 17:35; Admin Dose 10 MG; Start 04/17/17 at 18:00 Diphenhydramine HCl (Benadryl) 25 mg Q6H PRN GTB ITCHING Last administered on 06:37; Admin Dose 25 MG; Start 04/17/17 at 18:00 Hydralazine HCl (Apresoline) 50 mg Q8 PRN GTB ELEVATED BLOOD PRESSURE Last administered on 04/18/17 13:18; Admin Dose 50 MG; Start 04/17/17 at 18:00 Multivitamins Therapeutic (Theragran) 1 tab DAILY GTB Last administered on 05/05 09:03; Admin Dose 1 TAB; Start 04/18/17 at 09:00 Miscellaneous Information 1 ea NOTE XX ; Start 04/17/17 at 21:00 Glucose (Glutose) 15 gm Q15M PRN PO DECREASED GLUCOSE; Start 04/17/17 at 21:00 Glucose (Glutose) 22.5 gm Q15M PRN PO DECREASED GLUCOSE; Start 04/17/17 at 21: 00 Dextrose (D50w Syringe) 25 ml Q15M PRN IV DECREASED GLUCOSE Last administered on 04/20/17 17:22; Admin Dose 25 ML; Start 04/17/17 at 21:00 Dextrose (D50w Syringe) 50 ml Q15M PRN IV DECREASED GLUCOSE; Start 04/17/17 at 21:00 Glucagon (Glucagen) 1 mg Q15M PRN IM DECREASED GLUCOSE; Start 04/17/17 at 21:00 Glucose (Glutose) 15 gm Q15M PRN BUCCAL DECREASED GLUCOSE; Start 04/17/17 at 21 :00 Ondansetron HCl (Zofran Inj) 4 mg Q6H PRN IV NAUSEA AND/OR VOMITING; Start at 00:30 Insulin Aspart (Novolog Insulin Pen) (Adult SC Insulin - Mild Algorithm)... Q6 [place] Last administered on 05/05/17 17:41; Admin Dose 1 UNIT; Start 04/20/17 at 00:00 Insulin Glargine (Lantus) 14 unit QHS SC Last administered on 05/04/17 22:06; Admin Dose 14 UNIT; Start 04/20/17 at 21:00 Metoprolol Tartrate (Lopressor) 25 mg BID PO Last administered on 04/28/17 08: 14; Admin Dose 25 MG; Start 04/23/17 at 09:00; Status Future Hold Hydralazine HCl (Apresoline) 25 mg Q8 PO Last administered on 05/05/17 14:46; Admin Dose 25 MG; Start 04/22/17 at 22:00 Hydralazine HCl (Apresoline) 10 mg Q4H PRN IV SBP>170; Start 04/22/17 at 22:00 Nitroglycerin (Nitroglycerin (Sl Tab) 0.4 Mg) 1 tab Q5M PRN SL ANGINA; Start at 18:00 Acetaminophen/ Hydrocodone Bitart ([place] (5/325)) 1 tab Q6H PRN PO PAIN LEVEL 4 -7 Last administered on 05/03/17 12:31; Admin Dose 1 TAB; Start 05/03/17 at 03: 30 Acetaminophen (Tylenol Liquid) 650 mg Q4H PRN GTB PAIN AND OR ELEVATED TEMP; Start 05/03/17 at 03:30 Furosemide (Lasix) 40 mg DAILY@06 IV Last administered on 05/05/17 06:56; Admin Dose 40 MG; Start 05/04/17 at 06:00 Pantoprazole (Protonix Iv) 40 mg BID@06,18 IV Last administered on 05/05/17 17 :35; Admin Dose 40 MG; Start 05/05/17 at 18:00 Metoclopramide HCl 5 mg 5 mg TID IV Last administered on 05/05/17 12:04; Admin Dose 5 MG; Start 05/05/17 at 13:00 Dextrose/Sodium Chloride (D5-1/2ns) 1,000 ml @ 50 mls/hr Q20H IV Last administered on 05/05/17t 12:01; Admin Dose 50 MLS/HR; Start 05/05/17 at 12:00 Amlodipine Besylate (Norvasc) 5 mg DAILY GTB ; Start 05/06/17 at 09:00 JEFRY CERNA MD May 05, 2017 17:57
--- NOTE | 2017-05-05 19:37 | CONS ---
Date/Time of Note Date/Time of Note DATE: 05/05/17 TIME: 19:35 Assessment/Plan Assessment/Plan Chief Complaint/Hosp Course 1 ckd w uremia 2.Hypernatremia better 3.HTN 4 Ecoli UTI 5 Sepsis 6 Chronic Afib 7 CVA s/p G tube placement 8 Renal cyst 9 uremia 10 pul edema plan continue same will need hd qwk w malnutrition ,uremia,low albumin on diuretic Problems: Consultation Date/Type/Reason Admit Date/Time Apr 17, 2017 at 16:39 Type of Consultation: renal Referring Provider: PORTIA OLIVER MD 24 HR Interval Summary Constitutional: other (no gi bleed,uremic,weak,malnourished) Exam/Review of Systems Vital Signs Vitals Vital Signs Date Time Temp Pulse Resp B/P Pulse Ox O2 Delivery O2 Flow Rate FiO2 05/05/17 19:15 2.0 05/05/17 19:14 86 16 100 Nasal Cannula 05/05/17 16:21 98.4 123/72 05/05/17 15:04 32 Intake and Output 05/04/17 05/04/17 05/05/17 15:00 23:00 07:00 Intake Total 800 ml 1000 ml Output Total 2500 ml 2300 ml Balance -1700 ml -1300 ml Exam Respiratory: clear to auscultation Gastrointestinal: bowel sounds (+), soft Extremities: normal pulses Results Result Diagram: 05/05/17 1120 05/05/17 0711 Results 24 hrs Laboratory Tests Test 05/04/17 21:16 05/05/17 00:16 05/05/17 05:53 05/05/17 06:40 Bedside Glucose 190 209 103 Lab Scanned Report BLOOD TRANSFUSION Test 05/05/17 07:11 05/05/17 11:20 05/05/17 11:44 05/05/17 11:58 White Blood Count 12.0 H 12.5 H Red Blood Count 3.18 L 3.00 L Hemoglobin 8.5 L 8.1 L Hematocrit 26.7 L 25.4 L Mean Corpuscular Volume 84.0 84.7 Mean Corpuscular Hemoglobin 26.7 L 27.0 L Mean Corpuscular Hemoglobin Concent 31.8 L 31.9 L Red Cell Distribution Width 20.6 H 20.7 H Platelet Count 293 280 Mean Platelet Volume 11.2 H 11.1 H Neutrophils % 78.4 H 78.5 H Lymphocytes % 9.6 L 8.8 L Monocytes % 8.2 8.3 Eosinophils % 2.6 3.5 Basophils % 0.8 0.6 Nucleated Red Blood Cells % 0.0 0.0 Neutrophils # (Manual) 9.4 H Lymphocytes # 1.2 1.1 Monocytes # 1.0 H 1.0 H Eosinophils # 0.3 0.4 Basophils # 0.1 0.1 Nucleated Red Blood Cells # 0.0 0.0 Sodium Level 136 Potassium Level 4.7 Chloride Level 104 Carbon Dioxide Level 28 Anion Gap 9 Blood Urea Nitrogen 96 H Creatinine 2.59 H Glucose Level 95 Calcium Level 8.4 Bedside Glucose 166 Blood Gas Specimen Source Blood arterial Arterial Blood Date Drawn 05/05/2017 12:10:15 PM Arterial Blood pH (Temp corrected) 7.505 H Arterial Blood pCO2 (Temp correct) 30.9 L Arterial Blood pO2 (Temp corrected) 120.0 H Arterial Blood HCO3 23.8 Arterial Blood Base Excess 1.0 Arterial Blood Oxygen Saturation 98.2 H Ankti Test N/A Arterial Blood Gas Puncture Site Right Brachial Arterial Blood Carboxyhemoglobin 0.3 Arterial Blood Methemoglobin 0.5 Blood Gas A-a O2 Differential 36.0 H Oxyhemoglobin Percent 97.4 Total Hemoglobin 9.0 L Blood Gas Temperature 37.0 Blood Gas Modality NASAL CANNULA FiO2 27.0 Blood Gas Notified Whom JLD Blood Gas Notified Time 05/05/2017 12:30:02 PM Test 05/05/17 13:10 05/05/17 17:33 Troponin I 0.061 Bedside Glucose 142 Medications Medications Current Medications Acetaminophen (Tylenol Tab) 650 mg Q6H PRN GTB PAIN AND OR ELEVATED TEMP Last administered on 05/05/17 12:01; Admin Dose 650 MG; Start 04/17/17 at 18:00 Bisacodyl (Dulcolax Supp) 10 mg Q24H [place] Last administered on 05/05/17 17:35; Admin Dose 10 MG; Start 04/17/17 at 18:00 Diphenhydramine HCl (Benadryl) 25 mg Q6H PRN GTB ITCHING Last administered on 06:37; Admin Dose 25 MG; Start 04/17/17 at 18:00 Hydralazine HCl (Apresoline) 50 mg Q8 PRN GTB ELEVATED BLOOD PRESSURE Last administered on 04/18/17 13:18; Admin Dose 50 MG; Start 04/17/17 at 18:00 Multivitamins Therapeutic (Theragran) 1 tab DAILY GTB Last administered on 05/05 09:03; Admin Dose 1 TAB; Start 04/18/17 at 09:00 Miscellaneous Information 1 ea NOTE XX ; Start 04/17/17 at 21:00 Glucose (Glutose) 15 gm Q15M PRN PO DECREASED GLUCOSE; Start 04/17/17 at 21:00 Glucose (Glutose) 22.5 gm Q15M PRN PO DECREASED GLUCOSE; Start 04/17/17 at 21: 00 Dextrose (D50w Syringe) 25 ml Q15M PRN IV DECREASED GLUCOSE Last administered on 04/20/17 17:22; Admin Dose 25 ML; Start 04/17/17 at 21:00 Dextrose (D50w Syringe) 50 ml Q15M PRN IV DECREASED GLUCOSE; Start 04/17/17 at 21:00 Glucagon (Glucagen) 1 mg Q15M PRN IM DECREASED GLUCOSE; Start 04/17/17 at 21:00 Glucose (Glutose) 15 gm Q15M PRN BUCCAL DECREASED GLUCOSE; Start 04/17/17 at 21 :00 Ondansetron HCl (Zofran Inj) 4 mg Q6H PRN IV NAUSEA AND/OR VOMITING; Start at 00:30 Insulin Aspart (Novolog Insulin Pen) (Adult SC Insulin - Mild Algorithm)... Q6 SC Last administered on 05/05/17 17:41; Admin Dose 1 UNIT; Start 04/20/17 at 00:00 Insulin Glargine (Lantus) 14 unit QHS SC Last administered on 05/04/17 22:06; Admin Dose 14 UNIT; Start 04/20/17 at 21:00 Metoprolol Tartrate (Lopressor) 25 mg BID PO Last administered on 04/28/17 08: 14; Admin Dose 25 MG; Start 04/23/17 at 09:00; Status Future Hold Hydralazine HCl (Apresoline) 25 mg Q8 PO Last administered on 05/05/17 14:46; Admin Dose 25 MG; Start 04/22/17 at 22:00 Hydralazine HCl (Apresoline) 10 mg Q4H PRN IV SBP>170; Start 04/22/17 at 22:00 Nitroglycerin (Nitroglycerin (Sl Tab) 0.4 Mg) 1 tab Q5M PRN SL ANGINA; Start at 18:00 Acetaminophen/ Hydrocodone Bitart ([place] (5/325)) 1 tab Q6H PRN PO PAIN LEVEL 4 -7 Last administered on 05/03/17 12:31; Admin Dose 1 TAB; Start 05/03/17 at 03: 30 Acetaminophen (Tylenol Liquid) 650 mg Q4H PRN GTB PAIN AND OR ELEVATED TEMP; Start 05/03/17 at 03:30 Furosemide (Lasix) 40 mg DAILY@06 IV Last administered on 05/05/17 06:56; Admin Dose 40 MG; Start 05/04/17 at 06:00 Pantoprazole (Protonix Iv) 40 mg BID@06,18 IV Last administered on 05/05/17 17 :35; Admin Dose 40 MG; Start 05/05/17 at 18:00 Metoclopramide HCl 5 mg 5 mg TID IV Last administered on 05/05/17 12:04; Admin Dose 5 MG; Start 05/05/17 at 13:00 Dextrose/Sodium Chloride (D5-1/2ns) 1,000 ml @ 50 mls/hr Q20H IV Last administered on 05/05/17 12:01; Admin Dose 50 MLS/HR; Start 05/05/17 at 12:00 Amlodipine Besylate (Norvasc) 5 mg DAILY GTB ; Start 05/06/17 at 09:00 ABBY RAMOS MD May 05, 2017 19:37
--- NOTE | 2017-05-05 19:55 | RADRPT ---
PROCEDURE: XR Chest. CLINICAL INDICATION: Shortness of breath. TECHNIQUE: A single portable view of the chest was obtained. COMPARISON: 05/03/2017 FINDINGS: The aorta is tortuous and atherosclerotic. The cardiomediastinal silhouette is otherwise enlarged a nd is stable. Diffuse pulmonary vascular congestion is seen with likely underlying pulmonary edema and is decreased. Bilateral pleural effusions are again noted and are improved. The soft tissues and osseous structures demonstrate benign age related senescent changes. IMPRESSION: Radiographic findings of congestive heart failure again seen which is improved. RPTAT: HPNM Physician Nichole Date Time Electronically viewed and signed by Physician Nichole on 05/05/2017 19:55 /
[2017-05-05] MEDS: INSULIN GLARGINE [LANtus] 3 ML PEN SC SCH (22:11)
[2017-05-06] VITALS (26 sets, daily range): BP systolic 104–150; BP diastolic 57–78; PULSE 76–132; RESP 12–27
[2017-05-06] MEDS: ALBUTEROL/IPRATROPIUM (NEB) 3 ML AMP HHN SCH ×4 (01:26→19:43)
[2017-05-06] MEDS: Insulin NOVOLOG SS MILD Algorithm (NPO/TPN/ENTERAL FEEDS) SC SCH ×4 (06:00→18:00)
[2017-05-06] MEDS: PANTOPRAZOLE 40 MG INJ IV SCH ×2 (06:04→18:15)
[2017-05-06] MEDS: FUROSEMIDE 20 MG INJ IV SCH ×2 (06:04→18:18)
[2017-05-06] MEDS: DEXTROSE 5%-0.45% NACL 1,000 ML IV SCH (06:42)
[2017-05-06 08:17] LABS: WHITE BLOOD COUNT 9.6 10^3/ul (4.8-10.8)
[2017-05-06 08:18] LABS: BASOPHIL # 0.1 10^3/ul (0.0-0.1); EOSINOPHILS # 0.8 10^3/ul (0.0-0.5); EOSINOPHILS % 8.8 % (0.0-7.0); HEMATOCRIT 25.9 % (42.0-52.0); HEMOGLOBIN 8.1 g/dl (14.0-18.0); LYMPHOCYTES % 10.6 % (15.0-51.0); MEAN CORPUSCULAR HGB CONC 31.3 g/dl (32.0-37.0); MEAN CORPUSCULAR VOLUME 86.3 fl (82.0-101.0); MEAN PLATELET VOLUME 11.9 fl (7.4-10.4); MONOCYTE # 0.9 10^3/ul (0.3-0.9); MONOCYTES % 9.6 % (0.0-11.0); NEUTROPHIL # 6.6 10^3/ul (1.6-7.5); NEUTROPHILS % 69.5 % (39.0-77.0); PLATELET COUNT 289 10^3/UL (140-415); RED CELL DISTRIBUTION WIDTH 20.5 % (11.5-14.5)
[2017-05-06 08:42] LABS: CALCIUM 8.3 mg/dl (8.4-10.2); CREATININE 2.55 mg/dl (0.61-1.24); POTASSIUM 4.5 mmol/L (3.5-5.1)
[2017-05-06] MEDS: MULTIVITAMINS THERAPEUTIC TAB GTB SCH (08:58)
[2017-05-06] MEDS ORDERED: AMLODIPINE 2.5 MG TAB GTB SCH (09:00)
[2017-05-06] MEDS: METOCLOPRAMIDE 10 MG INJ IV SCH ×3 (09:00→21:19)
[2017-05-06] MEDS ORDERED: SOD CHLORIDE 0.9% 100 ML ONE (10:13)
[2017-05-06] MEDS ORDERED: HEPARIN 1000 UNITS/ML 10 ML INJ ONE ×2 (10:14→13:16)
--- NOTE | 2017-05-06 11:13 | RADRPT ---
Vent Rate: 93 bpm RR Interval: 0 msec [place] Interval: 226 msec QRS Duration: 124 msec QT Interval: 396 msec QTC Interval: 492 msec P-R-T [place]: 43 - 80 - 56 degrees Sinus rhythm with 1st degree AV block Right bundle branch block Cannot rule out Anterior infarct , age undetermined Abnormal ECG Electronically Signed By: Harmeet Tesfaye [id number]
--- NOTE | 2017-05-06 11:17 | CONS ---
Date/Time of Note Date/Time of Note DATE: 05/06/17 TIME: 11:17 Assessment/Plan Assessment/Plan Additional Assessment/Plan IMPRESSION: 1. Anemia may be anemia of chronic disease. Rule out gastrointestinal blood loss. 2. Dysphagia status post percutaneous endoscopic gastrostomy. 3. Diabetes mellitus. 4. Cerebrovascular accident. 5. End-stage renal disease, on dialysis. 6. Diabetes mellitus. 7. Legally blind. 8. Status post urinary tract infection. 9. Hematemesis versus hemoptysis PLAN: work him up for the anemia, stool for occult blood, B12, folic acid, and Retic count all within normal limit but it appears this is anemia of chronic disease Stool for occult blood is negative Blood thinner has been stopped Patient was started on Reglan for his hiccup and will monitor H&H Consultation Date/Type/Reason Admit Date/Time Apr 17, 2017 at 16:39 Initial Consult Date 04/18/17 Type of Consultation: renal Referring Provider: PORTIA OLIVER MD 24 HR Interval Summary Free Text/Dictation no further bleeding Exam/Review of Systems Vital Signs Vitals Vital Signs Date Time Temp Pulse Resp B/P Pulse Ox O2 Delivery O2 Flow Rate FiO2 05/06/17 08:33 89 05/06/17 08:17 2.0 05/06/17 08:17 20 97 Nasal Cannula 05/06/17 07:56 97.6 123/61 05/05/17 15:04 32 Intake and Output 05/05/17 05/05/17 05/06/17 15:00 23:00 07:00 Intake Total 640 ml 660 ml Output Total 1800 ml 1650 ml Balance -1160 ml -990 ml Exam Constitutional: alert, oriented, well developed Psych: nl mood/affect, no complaints Head: atraumatic, normocephalic Eyes: EOMI, PERRL, nl conjunctiva, nl lids, nl sclera ENMT: nl external ears & nose, nl lips & teeth, nl nasal mucosa & septum Neck: non-tender, supple Respiratory: clear to auscultation, normal air movement Cardiovascular: nl pulses, regular rate and rhythm Gastrointestinal: nl liver, spleen, non-tender, soft Musculoskeletal: nl extremities to inspection, nl gait and stance Extremities: normal pulses Neurological: LIME KILN TENDER II-XII intact, nl mental status, nl speech, nl strength Skin: nl turgor, No rash or lesions Lymph: nl lymph nodes Results Result Diagram: 05/06/17 0655 05/06/17 0655 Results 24 hrs Laboratory Tests Test 05/05/17 11:20 05/05/17 11:44 05/05/17 11:58 05/05/17 13:10 White Blood Count 12.5 H Red Blood Count 3.00 L Hemoglobin 8.1 L Hematocrit 25.4 L Mean Corpuscular Volume 84.7 Mean Corpuscular Hemoglobin 27.0 L Mean Corpuscular Hemoglobin Concent 31.9 L Red Cell Distribution Width 20.7 H Platelet Count 280 Mean Platelet Volume 11.1 H Neutrophils % 78.5 H Lymphocytes % 8.8 L Monocytes % 8.3 Eosinophils % 3.5 Basophils % 0.6 Nucleated Red Blood Cells % 0.0 Lymphocytes # 1.1 Monocytes # 1.0 H Eosinophils # 0.4 Basophils # 0.1 Nucleated Red Blood Cells # 0.0 Bedside Glucose 166 Blood Gas Specimen Source Blood arterial Arterial Blood Date Drawn 05/05/2017 12:10:15 PM Arterial Blood pH (Temp corrected) 7.505 H Arterial Blood pCO2 (Temp correct) 30.9 L Arterial Blood pO2 (Temp corrected) 120.0 H Arterial Blood HCO3 23.8 Arterial Blood Base Excess 1.0 Arterial Blood Oxygen Saturation 98.2 H Ankit Test N/A Arterial Blood Gas Puncture Site Right Brachial Arterial Blood Carboxyhemoglobin 0.3 Arterial Blood Methemoglobin 0.5 Blood Gas A-a O2 Differential 36.0 H Oxyhemoglobin Percent 97.4 Total Hemoglobin 9.0 L Blood Gas Temperature 37.0 Blood Gas Modality NASAL CANNULA FiO2 27.0 Blood Gas Notified Whom JLD Blood Gas Notified Time 05/05/2017 12:30:02 PM Troponin I 0.061 Test 05/05/17 17:33 05/05/17 21:58 05/05/17 22:46 05/06/17 00:08 Bedside Glucose 142 161 127 Troponin I 0.052 Test 05/06/17 06:20 05/06/17 06:47 05/06/17 06:55 05/06/17 07:07 Bedside Glucose 46 *L 179 153 White Blood Count 9.6 # Red Blood Count 3.00 L Hemoglobin 8.1 L Hematocrit 25.9 L Mean Corpuscular Volume 86.3 Mean Corpuscular Hemoglobin 27.0 L Mean Corpuscular Hemoglobin Concent 31.3 L Red Cell Distribution Width 20.5 H Platelet Count 289 Mean Platelet Volume 11.9 H Neutrophils % 69.5 Lymphocytes % 10.6 L Monocytes % 9.6 Eosinophils % 8.8 H Basophils % 1.0 Nucleated Red Blood Cells % 0.0 Neutrophils # 6.6 Lymphocytes # 1.0 Monocytes # 0.9 Eosinophils # 0.8 H Basophils # 0.1 Nucleated Red Blood Cells # 0.0 Sodium Level 136 Potassium Level 4.5 Chloride Level 103 Carbon Dioxide Level 28 Anion Gap 10 Blood Urea Nitrogen 90 H Creatinine 2.55 H Glucose Level 157 Calcium Level 8.3 L Troponin I 0.057 Hepatitis B Surface Antigen NEGATIVE Hepatitis C Antibody NEGATIVE Test 05/06/17 07:58 Bedside Glucose 121 Medications Medications Current Medications Acetaminophen (Tylenol Tab) 650 mg Q6H PRN GTB PAIN AND OR ELEVATED TEMP Last administered on 05/05/17 12:01; Admin Dose 650 MG; Start 04/17/17 at 18:00 Bisacodyl (Dulcolax Supp) 10 mg Q24H [place] Last administered on 05/05/17 17:35; Admin Dose 10 MG; Start 04/17/17 at 18:00 Diphenhydramine HCl (Benadryl) 25 mg Q6H PRN GTB ITCHING Last administered on 06:37; Admin Dose 25 MG; Start 04/17/17 at 18:00 Hydralazine HCl (Apresoline) 50 mg Q8 PRN GTB ELEVATED BLOOD PRESSURE Last administered on 04/18/17 13:18; Admin Dose 50 MG; Start 04/17/17 at 18:00 Multivitamins Therapeutic (Theragran) 1 tab DAILY GTB Last administered on 05/06 08:58; Admin Dose 1 TAB; Start 04/18/17 at 09:00 Miscellaneous Information 1 ea NOTE XX ; Start 04/17/17 at 21:00 Glucose (Glutose) 15 gm Q15M PRN PO DECREASED GLUCOSE; Start 04/17/17 at 21:00 Glucose (Glutose) 22.5 gm Q15M PRN PO DECREASED GLUCOSE; Start 04/17/17 at 21: 00 Dextrose (D50w Syringe) 25 ml Q15M PRN IV DECREASED GLUCOSE Last administered on 04/20/17 17:22; Admin Dose 25 ML; Start 04/17/17 at 21:00 Dextrose (D50w Syringe) 50 ml Q15M PRN IV DECREASED GLUCOSE Last administered on 05/06/17 06:24; Admin Dose 50 ML; Start 04/17/17 at 21:00 Glucagon (Glucagen) 1 mg Q15M PRN IM DECREASED GLUCOSE; Start 04/17/17 at 21:00 Glucose (Glutose) 15 gm Q15M PRN BUCCAL DECREASED GLUCOSE; Start 04/17/17 at 21 :00 Ondansetron HCl (Zofran Inj) 4 mg Q6H PRN IV NAUSEA AND/OR VOMITING; Start at 00:30 Insulin Aspart (Novolog Insulin Pen) (Adult SC Insulin - Mild Algorithm)... Q6 SC Last administered on 05/05/17 17:41; Admin Dose 1 UNIT; Start 04/20/17 at 00:00 Insulin Glargine (Lantus) 14 unit QHS SC Last administered on 05/05/17 22:11; Admin Dose 14 UNIT; Start 04/20/17 at 21:00 Metoprolol Tartrate (Lopressor) 25 mg BID PO Last administered on 04/28/17 08: 14; Admin Dose 25 MG; Start 04/23/17 at 09:00; Status Future Hold Hydralazine HCl (Apresoline) 25 mg Q8 PO Last administered on 05/06/17 06:05; Admin Dose 25 MG; Start 04/22/17 at 22:00 Hydralazine HCl (Apresoline) 10 mg Q4H PRN IV SBP>170; Start 04/22/17 at 22:00 Nitroglycerin (Nitroglycerin (Sl Tab) 0.4 Mg) 1 tab Q5M PRN SL ANGINA; Start at 18:00 Acetaminophen/ Hydrocodone Bitart ([place] (5/325)) 1 tab Q6H PRN PO PAIN LEVEL 4 -7 Last administered on 05/03/17 12:31; Admin Dose 1 TAB; Start 05/03/17 at 03: 30 Acetaminophen (Tylenol Liquid) 650 mg Q4H PRN GTB PAIN AND OR ELEVATED TEMP; Start 05/03/17 at 03:30 Pantoprazole (Protonix Iv) 40 mg BID@06,18 IV Last administered on 05/06/17 06 :04; Admin Dose 40 MG; Start 05/05/17 at 18:00 Metoclopramide HCl 5 mg 5 mg TID IV Last administered on 05/06/17 09:00; Admin Dose 5 MG; Start 05/05/17 at 13:00 Dextrose/Sodium Chloride (D5-1/2ns) 1,000 ml @ 50 mls/hr Q20H IV Last administered on 05/06/17 06:42; Admin Dose 50 MLS/HR; Start 05/05/17 at 12:00 Amlodipine Besylate (Norvasc) 5 mg DAILY GTB Last administered on 05/06/17 08: 59; Admin Dose 5 MG; Start 05/06/17 at 09:00 JEFRY CERNA MD May 06, 2017 11:17
[2017-05-06] MEDS ORDERED: LIDOCAINE 1% (MDV) 20 ML INJ ONE (13:16)
[2017-05-06] MEDS ORDERED: PROPOFOL 20 ML ONE (14:54)
[2017-05-06] MEDS ORDERED: EPHEDrine SULFATE 50 MG/5 ML SYG ONE (14:54)
[2017-05-06] MEDS ORDERED: FENTAnyl 50 MCG/ML VIAL ONE ×2 (14:55)
[2017-05-06] MEDS ORDERED: CEFAZOLIN 1 GM/50 ML (PMX) 50 ML IVPB ONE (15:35)
--- NOTE | 2017-05-06 16:30 | RADRPT ---
PROCEDURE: Ultrasound guidance for placement of needle in right internal jugular vein. CLINICAL INDICATION: Venous access. TECHNIQUE: Prior to the procedure, informed consent was obtained. Risks including bleeding, infection, and pneu mothorax were explained to the patient. The patient understood and was willing to proceed. A procedu ral pause was performed. The patient's name, date of , and procedure to be performed were verif ied. The central line was inserted with all elements of maximal sterile barrier technique. All of th e following were used: head covering, facial mask, sterile gown, sterile gloves, a large sterile she et, hand hygiene, and 2% chlorhexidine for cutaneous antisepsis. The right neck and anterior/super ior chest wall was prepped and draped in usual sterile fashion. Limited sonography of the right neck was then performed. Noted is a patent right internal jugular ve in. Ultrasound images were recorded and stored in the patient's medical record. Following the local injection of Xylocaine, the right internal jugular vein was punctured under sono graphic guidance with a 20-gauge needle through which a 0.018 inch floppy tip guidewire was advanced into the superior vena cava. The patient tolerated the procedure well. The remainder of the proce dure was performed and dictated under separate cover. COMPARISON: None. FINDINGS: The ultrasound images demonstrate a patent right internal jugular vein. The subsequent images demon strate the needle entering the right internal jugular vein. IMPRESSION: 1. Ultrasound guidance for a needle placement in right internal jugular vein. RPTAT: QQ .Allen Maceky MD, Date Time Electronically viewed and signed by .Allen Mackey MD, on 05/06/2017 16:30 .R/
--- NOTE | 2017-05-06 16:31 | RADRPT ---
PROCEDURE: PLACEMENT OF RIGHT INTERNAL JUGULAR VENOUS TUNNELED DIALYSIS CATHETER. CLINICAL INDICATION: Renal failure. TECHNIQUE: Prior to the procedure, informed consent was obtained. Risks including bleeding, infection, and pneu mothorax were explained to the patient and/or the patient's family. The patient and/or the patient's family understood and was willing to proceed. A procedural pause was performed. The patient's name, date of , and procedure to be performed were verified. The central line was inserted with all elements of maximal sterile barrier technique. All of the following were used: head covering, facial mask, sterile gown, sterile gloves, a large sterile sheet, hand hygiene, and 2% chlorhexidine for cutaneous antisepsis. The right neck and anterior/superior chest wall was prepped and draped in usu al sterile fashion. Limited sonography of the right neck was then performed. Noted is a patent right internal jugular ve in. Ultrasound images were recorded and stored in the patient's medical record. Following the local injection of Xylocaine, the right internal jugular vein was punctured under sono graphic guidance with a 20-gauge needle through which a 0.018 inch floppy tip guidewire was advanced into the superior vena cava. The tract was dilated to 5 Estonian and the wire was then replaced with a 0.035 in Amplatz guidewire. A tunnel was then created from the anterior lateral aspect of the sup erior right chest wall to the puncture site in the neck and the catheter was pulled through the trac t. Serial dilatation was then performed and a 16 Estonian peel away sheath was introduced. The 14.5 Estonian 23cm tip to cuff Angiodynamics BioFlo DuraMax dialysis catheter was advanced through the 16 F rench peel-away sheath. The tip of the catheter was confirmed in position within the right atrium. T he peel-away sheath was removed. The 2 ports were each flushed with 2.3 ml of 1:1000 heparin. The c atheter was secured to the skin with 2-0 silk. The wound in the neck was closed with 4-0 Vicryl suture using subcuticular running technique. The site was dressed. The patient tolerated the proce dure well. COMPARISON: None. FINDINGS: Final radiographic images demonstrate the tip of the catheter in the upper right atrium. A total of 0.2 minutes of fluoroscopy time was used. The ultrasound images demonstrate the needle entering th e jugular vein. Ultrasound images were recorded and stored in the patient's medical record. 8 image s of the chest were obtained with image intensifier. IMPRESSION: 1. Percutaneous insertion of right internal jugular dialysis tunneled dialysis catheter under fluoro scopic and sonographic guidance. RPTAT: QQ .Allen Mackey MD, MD Date Time Electronically viewed and signed by .Allen Mackey MD, MD on 05/06/2017 16:31 .R/
[2017-05-06] MEDS ORDERED: EPHEDrine SULFATE 50 MG/5 ML SYG IV PRN (17:00)
[2017-05-06] MEDS ORDERED: hydrALAzine 20 MG INJ IV PRN (17:00)
[2017-05-06] MEDS ORDERED: LABETALOL HCL 20MG INJ IV PRN (17:00)
[2017-05-06] MEDS ORDERED: INSULIN ASPART [NOVOLOG] 3 ML PEN SC ONE (17:00)
[2017-05-06] MEDS ORDERED: FENTAnyl 50 MCG/ML VIAL IV PRN ×3 (17:00)
[2017-05-06] MEDS ORDERED: ONDANSETRON 4 MG INJ IV PRN (17:00)
--- NOTE | 2017-05-06 18:10 | CONS ---
Date/Time of Note Date/Time of Note DATE: 05/06/17 TIME: 18:09 Assessment/Plan Assessment/Plan Chief Complaint/Hosp Course 1 ckd w uremia 2.Hypernatremia better 3.HTN 4 Ecoli UTI 5 Sepsis 6 Chronic Afib 7 CVA s/p G tube placement 8 Renal cyst 9 uremia 10 pul edema plan continue same will need hd qwk w malnutrition ,uremia,low albumin on diuretic HD Problems: Consultation Date/Type/Reason Admit Date/Time Apr 17, 2017 at 16:39 Type of Consultation: renal Referring Provider: PORTIA OLIVER MD 24 HR Interval Summary Constitutional: other (WEAKNESS) Exam/Review of Systems Vital Signs Vitals Vital Signs Date Time Temp Pulse Resp B/P Pulse Ox O2 Delivery O2 Flow Rate FiO2 05/06/17 17:27 76 13 148/71 100 Room Air 05/06/17 16:47 98.0 05/06/17 13:46 2.0 05/05/17 15:04 32 Intake and Output 05/05/17 05/05/17 05/06/17 14:59 22:59 06:59 Intake Total 640 ml 660 ml Output Total 1800 ml 1650 ml Balance -1160 ml -990 ml Exam Neck: supple Respiratory: diminished breath sounds Cardiovascular: regular rate and rhythm Gastrointestinal: bowel sounds (+), soft Extremities: No edema Results Result Diagram: 05/06/17 0655 05/06/17 0655 Results 24 hrs Laboratory Tests Test 05/05/17 21:58 05/05/17 22:46 05/06/17 00:08 05/06/17 06:20 Bedside Glucose 161 127 46 *L Troponin I 0.052 Test 05/06/17 06:47 05/06/17 06:55 05/06/17 07:07 05/06/17 07:58 Bedside Glucose 179 153 121 White Blood Count 9.6 # Red Blood Count 3.00 L Hemoglobin 8.1 L Hematocrit 25.9 L Mean Corpuscular Volume 86.3 Mean Corpuscular Hemoglobin 27.0 L Mean Corpuscular Hemoglobin Concent 31.3 L Red Cell Distribution Width 20.5 H Platelet Count 289 Mean Platelet Volume 11.9 H Neutrophils % 69.5 Lymphocytes % 10.6 L Monocytes % 9.6 Eosinophils % 8.8 H Basophils % 1.0 Nucleated Red Blood Cells % 0.0 Neutrophils # 6.6 Lymphocytes # 1.0 Monocytes # 0.9 Eosinophils # 0.8 H Basophils # 0.1 Nucleated Red Blood Cells # 0.0 Sodium Level 136 Potassium Level 4.5 Chloride Level 103 Carbon Dioxide Level 28 Anion Gap 10 Blood Urea Nitrogen 90 H Creatinine 2.55 H Glucose Level 157 Calcium Level 8.3 L Troponin I 0.057 Hepatitis B Surface Antigen NEGATIVE Hepatitis C Antibody NEGATIVE Test 05/06/17 12:19 Bedside Glucose 89 Medications Medications Current Medications Acetaminophen (Tylenol Tab) 650 mg Q6H PRN GTB PAIN AND OR ELEVATED TEMP Last administered on 05/05/17 12:01; Admin Dose 650 MG; Start 04/17/17 at 18:00 Bisacodyl (Dulcolax Supp) 10 mg Q24H [place] Last administered on 05/05/17 17:35; Admin Dose 10 MG; Start 04/17/17 at 18:00 Diphenhydramine HCl (Benadryl) 25 mg Q6H PRN GTB ITCHING Last administered on 06:37; Admin Dose 25 MG; Start 04/17/17 at 18:00 Hydralazine HCl (Apresoline) 50 mg Q8 PRN GTB ELEVATED BLOOD PRESSURE Last administered on 04/18/17 13:18; Admin Dose 50 MG; Start 04/17/17 at 18:00 Multivitamins Therapeutic (Theragran) 1 tab DAILY GTB Last administered on 05/06 08:58; Admin Dose 1 TAB; Start 04/18/17 at 09:00 Miscellaneous Information 1 ea NOTE XX ; Start 04/17/17 at 21:00 Glucose (Glutose) 15 gm Q15M PRN PO DECREASED GLUCOSE; Start 04/17/17 at 21:00 Glucose (Glutose) 22.5 gm Q15M PRN PO DECREASED GLUCOSE; Start 04/17/17 at 21: 00 Dextrose (D50w Syringe) 25 ml Q15M PRN IV DECREASED GLUCOSE Last administered on 04/20/17 17:22; Admin Dose 25 ML; Start 04/17/17 at 21:00 Dextrose (D50w Syringe) 50 ml Q15M PRN IV DECREASED GLUCOSE Last administered on 05/06/17 06:24; Admin Dose 50 ML; Start 04/17/17 at 21:00 Glucagon (Glucagen) 1 mg Q15M PRN IM DECREASED GLUCOSE; Start 04/17/17 at 21:00 Glucose (Glutose) 15 gm Q15M PRN BUCCAL DECREASED GLUCOSE; Start 04/17/17 at 21 :00 Ondansetron HCl (Zofran Inj) 4 mg Q6H PRN IV NAUSEA AND/OR VOMITING; Start at 00:30 Insulin Aspart (Novolog Insulin Pen) (Adult SC Insulin - Mild Algorithm)... Q6 [place] Last administered on 05/05/17 17:41; Admin Dose 1 UNIT; Start 04/20/17 at 00:00 Insulin Glargine (Lantus) 14 unit QHS [place] Last administered on 05/05/17 22:11; Admin Dose 14 UNIT; Start 04/20/17 at 21:00 Metoprolol Tartrate (Lopressor) 25 mg BID PO Last administered on 04/28/17 08: 14; Admin Dose 25 MG; Start 04/23/17 at 09:00; Status Future Hold Hydralazine HCl (Apresoline) 25 mg Q8 PO Last administered on 05/06/17 06:05; Admin Dose 25 MG; Start 04/22/17 at 22:00 Hydralazine HCl (Apresoline) 10 mg Q4H PRN IV SBP>170; Start 04/22/17 at 22:00 Nitroglycerin (Nitroglycerin (Sl Tab) 0.4 Mg) 1 tab Q5M PRN SL ANGINA; Start at 18:00 Acetaminophen/ Hydrocodone Bitart ([place] (5/325)) 1 tab Q6H PRN PO PAIN LEVEL 4 -7 Last administered on 05/03/17 12:31; Admin Dose 1 TAB; Start 05/03/17 at 03: 30 Acetaminophen (Tylenol Liquid) 650 mg Q4H PRN GTB PAIN AND OR ELEVATED TEMP; Start 05/03/17 at 03:30 Pantoprazole (Protonix Iv) 40 mg BID@06,18 IV Last administered on 05/06/17 06 :04; Admin Dose 40 MG; Start 05/05/17 at 18:00 Metoclopramide HCl 5 mg 5 mg TID IV Last administered on 05/06/17 09:00; Admin Dose 5 MG; Start 05/05/17 at 13:00 Dextrose/Sodium Chloride (D5-1/2ns) 1,000 ml @ 50 mls/hr Q20H IV Last administered on 05/06/17t 06:42; Admin Dose 50 MLS/HR; Start 05/05/17 at 12:00 Amlodipine Besylate (Norvasc) 5 mg DAILY GTB ; Start 05/07/17 at 09:00 ABBY RAMOS MD May 06, 2017 18:10
[2017-05-06] MEDS: BISACODYL 10 MG SUPP PR SCH ×2 (18:12→21:19)
--- NOTE | 2017-05-06 19:14 | PN ---
Date/Time of Note Date/Time of Note DATE: 05/06/17 TIME: 19:08 Assessment/Plan Lines/Catheters IV Catheter Type (from Nrs): Peripheral IV Urinary Cath still in place: Yes Assessment/Plan Assessment/Plan - Acute renal failure on Chronic Kidney disease-sp right chest Perma cath placement, Getting HD- tolerating well. - per nephro consult- dr Cheema - Anemia- Hgb dropped. - per gi - Leukocytosis sec to UTI- maira Albicans - -Acute cystitis without hematuria - sp Vanco/Zosyn - fu urine c/s - ID consult- Dr Garcia notified - am labs -Acute weakness sec to Dizziness - cardiology consult - 2D Echo am- LVEF 65% - Electrolyte imbalance- per nephrology - Hyperkalemia- RESOLVED - Hypernatremia - Hyperphosphatemia - Dysphagia - sp PEG placement - aspiration precautions - cont tube feeding - History of paroxysmal atrial fibrillation.- no acute issues. SR at present - Diabetes mellitus. - Glycemic control - Dietary consult - health educator consult - Chronic kidney disease. - History of cerebrovascular accident- no acute issues reported - Hx AMS Placement pending, Plan of care dw Dr Patel/staff Subjective 24 Hr Interval Summary Free Text/Dictation sp right chest Perma cath placement, Getting HD- tolerating well. dw staff- mental status at baseline. Constitutional: requiring O2 Respiratory: no complaints Cardiovascular: no complaints Gastrointestinal: no complaints Genitourinary: no complaints Musculoskeletal: no complaints Exam/Review of Systems Vital Signs Vitals Vital Signs Date Time Temp Pulse Resp B/P Pulse Ox O2 Delivery O2 Flow Rate FiO2 05/06/17 17:27 76 13 148/71 100 Room Air 05/06/17 16:47 98.0 05/06/17 13:46 2.0 05/05/17 15:04 32 Intake and Output 05/05/17 05/05/17 05/06/17 15:00 23:00 07:00 Intake Total 640 ml 660 ml Output Total 1800 ml 1650 ml Balance -1160 ml -990 ml Exam Constitutional: alert, frail Respiratory: diminished breath sounds Cardiovascular: nl pulses, regular rate and rhythm Gastrointestinal: non-tender, soft Musculoskeletal: nl extremities to inspection Extremities: normal pulses Neurological: nl speech Results Result Diagram: 05/06/17 0655 05/06/17 0655 Results 24 hrs Laboratory Tests Test 05/05/17 21:58 05/05/17 22:46 05/06/17 00:08 05/06/17 06:20 Bedside Glucose 161 127 46 *L Troponin I 0.052 Test 05/06/17 06:47 05/06/17 06:55 05/06/17 07:07 05/06/17 07:58 Bedside Glucose 179 153 121 White Blood Count 9.6 # Red Blood Count 3.00 L Hemoglobin 8.1 L Hematocrit 25.9 L Mean Corpuscular Volume 86.3 Mean Corpuscular Hemoglobin 27.0 L Mean Corpuscular Hemoglobin Concent 31.3 L Red Cell Distribution Width 20.5 H Platelet Count 289 Mean Platelet Volume 11.9 H Neutrophils % 69.5 Lymphocytes % 10.6 L Monocytes % 9.6 Eosinophils % 8.8 H Basophils % 1.0 Nucleated Red Blood Cells % 0.0 Neutrophils # 6.6 Lymphocytes # 1.0 Monocytes # 0.9 Eosinophils # 0.8 H Basophils # 0.1 Nucleated Red Blood Cells # 0.0 Sodium Level 136 Potassium Level 4.5 Chloride Level 103 Carbon Dioxide Level 28 Anion Gap 10 Blood Urea Nitrogen 90 H Creatinine 2.55 H Glucose Level 157 Calcium Level 8.3 L Troponin I 0.057 Hepatitis B Surface Antigen NEGATIVE Hepatitis C Antibody NEGATIVE Test 05/06/17 12:19 05/06/17 18:09 Bedside Glucose 89 81 Medications Medications Current Medications Acetaminophen (Tylenol Tab) 650 mg Q6H PRN GTB PAIN AND OR ELEVATED TEMP Last administered on 05/05/17 12:01; Admin Dose 650 MG; Start 04/17/17 at 18:00 Bisacodyl (Dulcolax Supp) 10 mg Q24H [place] Last administered on 05/06/17 18:12; Admin Dose 10 MG; Start 04/17/17 at 18:00 Diphenhydramine HCl (Benadryl) 25 mg Q6H PRN GTB ITCHING Last administered on 06:37; Admin Dose 25 MG; Start 04/17/17 at 18:00 Hydralazine HCl (Apresoline) 50 mg Q8 PRN GTB ELEVATED BLOOD PRESSURE Last administered on 04/18/17 13:18; Admin Dose 50 MG; Start 04/17/17 at 18:00 Multivitamins Therapeutic (Theragran) 1 tab DAILY GTB Last administered on 05/06 08:58; Admin Dose 1 TAB; Start 04/18/17 at 09:00 Miscellaneous Information 1 ea NOTE XX ; Start 04/17/17 at 21:00 Glucose (Glutose) 15 gm Q15M PRN PO DECREASED GLUCOSE; Start 04/17/17 at 21:00 Glucose (Glutose) 22.5 gm Q15M PRN PO DECREASED GLUCOSE; Start 04/17/17 at 21: 00 Dextrose (D50w Syringe) 25 ml Q15M PRN IV DECREASED GLUCOSE Last administered on 04/20/17 17:22; Admin Dose 25 ML; Start 04/17/17 at 21:00 Dextrose (D50w Syringe) 50 ml Q15M PRN IV DECREASED GLUCOSE Last administered on 05/06/17 06:24; Admin Dose 50 ML; Start 04/17/17 at 21:00 Glucagon (Glucagen) 1 mg Q15M PRN IM DECREASED GLUCOSE; Start 04/17/17 at 21:00 Glucose (Glutose) 15 gm Q15M PRN BUCCAL DECREASED GLUCOSE; Start 04/17/17 at 21 :00 Ondansetron HCl (Zofran Inj) 4 mg Q6H PRN IV NAUSEA AND/OR VOMITING; Start at 00:30 Insulin Aspart (Novolog Insulin Pen) (Adult SC Insulin - Mild Algorithm)... Q6 [place] Last administered on 05/05/17 17:41; Admin Dose 1 UNIT; Start 04/20/17 at 00:00 Insulin Glargine (Lantus) 14 unit QHS [place] Last administered on 05/05/17 22:11; Admin Dose 14 UNIT; Start 04/20/17 at 21:00 Metoprolol Tartrate (Lopressor) 25 mg BID PO Last administered on 04/28/17 08: 14; Admin Dose 25 MG; Start 04/23/17 at 09:00; Status Future Hold Hydralazine HCl (Apresoline) 25 mg Q8 PO Last administered on 05/06/17 06:05; Admin Dose 25 MG; Start 04/22/17 at 22:00 Hydralazine HCl (Apresoline) 10 mg Q4H PRN IV SBP>170; Start 04/22/17 at 22:00 Nitroglycerin (Nitroglycerin (Sl Tab) 0.4 Mg) 1 tab Q5M PRN SL ANGINA; Start at 18:00 Acetaminophen/ Hydrocodone Bitart ([place] (5/325)) 1 tab Q6H PRN PO PAIN LEVEL 4 -7 Last administered on 05/03/17 12:31; Admin Dose 1 TAB; Start 05/03/17 at 03: 30 Acetaminophen (Tylenol Liquid) 650 mg Q4H PRN GTB PAIN AND OR ELEVATED TEMP; Start 05/03/17 at 03:30 Pantoprazole (Protonix Iv) 40 mg BID@06,18 IV Last administered on 05/06/17 18 :15; Admin Dose 40 MG; Start 05/05/17 at 18:00 Metoclopramide HCl 5 mg 5 mg TID IV Last administered on 05/06/17 09:00; Admin Dose 5 MG; Start 05/05/17 at 13:00 Dextrose/Sodium Chloride (D5-1/2ns) 1,000 ml @ 50 mls/hr Q20H IV Last administered on 05/06/17 06:42; Admin Dose 50 MLS/HR; Start 05/05/17 at 12:00 Amlodipine Besylate (Norvasc) 5 mg DAILY GTB ; Start 05/07/17 at 09:00 Mannitol (Mannitol 25%) 12.5 gm ONCE ONCE IV* ; Start 05/06/17 at 20:00; Stop 05/06/17 at 20:01 MARCY WEINER May 06, 2017 19:14
[2017-05-06] MEDS ORDERED: MANNITOL 25% 50 ML INJ IV* ONE (20:00)
--- NOTE | 2017-05-06 21:14 | CONS ---
Date/Time of Note Date/Time of Note DATE: 05/06/17 TIME: 21:10 Assessment/Plan Assessment/Plan Chief Complaint/Hosp Course IMP: 1.HTN-somewhat labile today 2.H/O PAF-Remains in SR at this time 3.renal failure 4.dysphagia 5. AMS 6. Heart [id number] HR.improved with holding BB overall some intermittent recurrence 7. Chest pain-resolved/negative troponin/no change on serial ecg 8. Occasional PVC's 9. CHF-diastolic acute on chronic 10.UTI 11.anemia REcc: -Tele -serial ecg's -follow rhythm closely -Continue norvasc/hydralazine and follow labile BP closely -Continue to Hold BB given wenkebach -Follow volume status closely and continue lasix with HD to be initiated s/p catheter placement Problems: Consultation Date/Type/Reason Admit Date/Time Apr 17, 2017 at 16:39 Initial Consult Date 04/18/17 Type of Consultation: cardiology Reason for Consultation CHF Referring Provider: PORTIA OLIVER MD Exam/Review of Systems Vital Signs Vitals Vital Signs Date Time Temp Pulse Resp B/P Pulse Ox O2 Delivery O2 Flow Rate FiO2 05/06/17 20:20 90 20 05/06/17 19:44 98.0 104/58 94 05/06/17 17:27 Room Air 05/06/17 13:46 2.0 05/05/17 15:04 32 Intake and Output 05/05/17 05/05/17 05/06/17 15:00 23:00 07:00 Intake Total 640 ml 660 ml Output Total 1800 ml 1650 ml Balance -1160 ml -990 ml Exam Review of Systems: CONSTITUTIONAL: No fevers, chills. PULMONARY: No sob CARDIOVASCULAR: No chest pain/palpitations GASTROINTESTINAL: No nausea/vomiting. GENITOURINARY: No hematuria/dysuria. MUSCULOSKELETAL: No myagias/arthalgias. PSYCHIATRIC: The patient denies depression. NEUROLOGIC: lethargic Constitutional: other (sleeping, arousable) Psych: no complaints Head: normocephalic ENMT: mucosa pink and moist Neck: jvd (9-10 cm water), supple Respiratory: diminished breath sounds (at bases/B) Cardiovascular: regular rate and rhythm Gastrointestinal: non-tender, soft Musculoskeletal: muscle weakness (generalized) Extremities: edema (none/B) Neurological: lethargic Results Result Diagram: 05/06/17 0655 05/06/17 0655 Results 24 hrs Laboratory Tests Test 05/05/17 21:58 05/05/17 22:46 05/06/17 00:08 05/06/17 06:20 Bedside Glucose 161 127 46 *L Troponin I 0.052 Test 05/06/17 06:47 05/06/17 06:55 05/06/17 07:07 05/06/17 07:58 Bedside Glucose 179 153 121 White Blood Count 9.6 # Red Blood Count 3.00 L Hemoglobin 8.1 L Hematocrit 25.9 L Mean Corpuscular Volume 86.3 Mean Corpuscular Hemoglobin 27.0 L Mean Corpuscular Hemoglobin Concent 31.3 L Red Cell Distribution Width 20.5 H Platelet Count 289 Mean Platelet Volume 11.9 H Neutrophils % 69.5 Lymphocytes % 10.6 L Monocytes % 9.6 Eosinophils % 8.8 H Basophils % 1.0 Nucleated Red Blood Cells % 0.0 Neutrophils # 6.6 Lymphocytes # 1.0 Monocytes # 0.9 Eosinophils # 0.8 H Basophils # 0.1 Nucleated Red Blood Cells # 0.0 Sodium Level 136 Potassium Level 4.5 Chloride Level 103 Carbon Dioxide Level 28 Anion Gap 10 Blood Urea Nitrogen 90 H Creatinine 2.55 H Glucose Level 157 Calcium Level 8.3 L Troponin I 0.057 Hepatitis B Surface Antigen NEGATIVE Hepatitis C Antibody NEGATIVE Test 05/06/17 12:19 05/06/17 18:09 Bedside Glucose 89 81 Medications Medications Current Medications Acetaminophen (Tylenol Tab) 650 mg Q6H PRN GTB PAIN AND OR ELEVATED TEMP Last administered on 05/05/17 12:01; Admin Dose 650 MG; Start 04/17/17 at 18:00 Bisacodyl (Dulcolax Supp) 10 mg Q24H [place] Last administered on 05/05/17 17:35; Admin Dose 10 MG; Start 04/17/17 at 18:00 Diphenhydramine HCl (Benadryl) 25 mg Q6H PRN GTB ITCHING Last administered on 06:37; Admin Dose 25 MG; Start 04/17/17 at 18:00 Hydralazine HCl (Apresoline) 50 mg Q8 PRN GTB ELEVATED BLOOD PRESSURE Last administered on 04/18/17 13:18; Admin Dose 50 MG; Start 04/17/17 at 18:00 Multivitamins Therapeutic (Theragran) 1 tab DAILY GTB Last administered on 05/06 08:58; Admin Dose 1 TAB; Start 04/18/17 at 09:00 Miscellaneous Information 1 ea NOTE XX ; Start 04/17/17 at 21:00 Glucose (Glutose) 15 gm Q15M PRN PO DECREASED GLUCOSE; Start 04/17/17 at 21:00 Glucose (Glutose) 22.5 gm Q15M PRN PO DECREASED GLUCOSE; Start 04/17/17 at 21: 00 Dextrose (D50w Syringe) 25 ml Q15M PRN IV DECREASED GLUCOSE Last administered on 04/20/17 17:22; Admin Dose 25 ML; Start 04/17/17 at 21:00 Dextrose (D50w Syringe) 50 ml Q15M PRN IV DECREASED GLUCOSE Last administered on 05/06/17 06:24; Admin Dose 50 ML; Start 04/17/17 at 21:00 Glucagon (Glucagen) 1 mg Q15M PRN IM DECREASED GLUCOSE; Start 04/17/17 at 21:00 Glucose (Glutose) 15 gm Q15M PRN BUCCAL DECREASED GLUCOSE; Start 04/17/17 at 21 :00 Ondansetron HCl (Zofran Inj) 4 mg Q6H PRN IV NAUSEA AND/OR VOMITING; Start at 00:30 Insulin Aspart (Novolog Insulin Pen) (Adult SC Insulin - Mild Algorithm)... Q6 [place] Last administered on 05/05/17 17:41; Admin Dose 1 UNIT; Start 04/20/17 at 00:00 Insulin Glargine (Lantus) 14 unit QHS [place] Last administered on 05/05/17 22:11; Admin Dose 14 UNIT; Start 04/20/17 at 21:00 Metoprolol Tartrate (Lopressor) 25 mg BID PO Last administered on 04/28/17 08: 14; Admin Dose 25 MG; Start 04/23/17 at 09:00; Status Future Hold Hydralazine HCl (Apresoline) 25 mg Q8 PO Last administered on 05/06/17 06:05; Admin Dose 25 MG; Start 04/22/17 at 22:00 Hydralazine HCl (Apresoline) 10 mg Q4H PRN IV SBP>170; Start 04/22/17 at 22:00 Nitroglycerin (Nitroglycerin (Sl Tab) 0.4 Mg) 1 tab Q5M PRN SL ANGINA; Start at 18:00 Acetaminophen/ Hydrocodone Bitart ([place] (5/325)) 1 tab Q6H PRN PO PAIN LEVEL 4 -7 Last administered on 05/03/17 12:31; Admin Dose 1 TAB; Start 05/03/17 at 03: 30 Acetaminophen (Tylenol Liquid) 650 mg Q4H PRN GTB PAIN AND OR ELEVATED TEMP; Start 05/03/17 at 03:30 Pantoprazole (Protonix Iv) 40 mg BID@06,18 IV Last administered on 05/06/17 18 :15; Admin Dose 40 MG; Start 05/05/17 at 18:00 Metoclopramide HCl 5 mg 5 mg TID IV Last administered on 05/06/17 09:00; Admin Dose 5 MG; Start 05/05/17 at 13:00 Dextrose/Sodium Chloride (D5-1/2ns) 1,000 ml @ 50 mls/hr Q20H IV Last administered on 05/06/17 06:42; Admin Dose 50 MLS/HR; Start 05/05/17 at 12:00 Amlodipine Besylate (Norvasc) 5 mg DAILY GTB ; Start 05/07/17 at 09:00 LESLI SHEA May 06, 2017 21:14
[2017-05-06] MEDS: INSULIN GLARGINE [LANtus] 3 ML PEN SC SCH (21:29)
[2017-05-07] VITALS (17 sets, daily range): BP systolic 115–150; BP diastolic 56–72; PULSE 75–97; RESP 17–20
[2017-05-07] MEDS: Insulin NOVOLOG SS MILD Algorithm (NPO/TPN/ENTERAL FEEDS) SC SCH ×4 (00:34→18:37)
[2017-05-07] MEDS: ALBUTEROL/IPRATROPIUM (NEB) 3 ML AMP HHN SCH ×4 (01:28→20:22)
[2017-05-07] MEDS: PANTOPRAZOLE 40 MG INJ IV SCH ×2 (06:02→18:00)
[2017-05-07] MEDS: FUROSEMIDE 20 MG INJ IV SCH ×2 (06:04→18:00)
[2017-05-07] MEDS: DEXTROSE 5%-0.45% NACL 1,000 ML IV SCH ×2 (06:05→23:53)
[2017-05-07] MEDS: MULTIVITAMINS THERAPEUTIC TAB GTB SCH (08:43)
[2017-05-07] MEDS: AMLODIPINE 5 MG TAB GTB SCH (08:43)
[2017-05-07] MEDS: METOCLOPRAMIDE 10 MG INJ IV SCH ×3 (08:43→21:05)
[2017-05-07] MEDS ORDERED: MANNITOL 25% 50 ML INJ IV* ONE (09:30)
--- NOTE | 2017-05-07 10:28 | PN ---
Date/Time of Note Date/Time of Note DATE: 05/07/17 TIME: 10:04 Assessment/Plan VTE Prophylaxis VTE Prophylaxis Intervention: SCD's Lines/Catheters IV Catheter Type (from Nrsg): Perma CATH roght chest Urinary Cath still in place: Yes Reason Cath still needed: urinary retention Assessment/Plan Assessment/Plan - Acute renal failure on Chronic Kidney disease-sp right chest Perma cath placement, SP HD yesterday- tolerated well. - per nephro consult- dr Cheema - Anemia- Hgb dropped. - per gi - Leukocytosis sec to UTI- maira Albicans - -Acute cystitis without hematuria - sp Vanco/Zosyn - fu urine c/s - ID consult- Dr Garcia notified - am labs -Acute weakness sec to Dizziness - cardiology consult - 2D Echo am- LVEF 65% - Electrolyte imbalance- per nephrology - Hyperkalemia- RESOLVED - Hypernatremia - Hyperphosphatemia - Dysphagia - sp PEG placement - aspiration precautions - cont tube feeding - History of paroxysmal atrial fibrillation.- no acute issues. SR at present - Diabetes mellitus. - Glycemic control - Dietary consult - speech lang path therapist consult - Chronic kidney disease. - History of cerebrovascular accident- no acute issues reported - Hx AMS Placement pending, Plan of care dw Dr Patel/staff Subjective 24 Hr Interval Summary Respiratory: no complaints Cardiovascular: no complaints Gastrointestinal: no complaints Genitourinary: no complaints Musculoskeletal: no complaints Exam/Review of Systems Vital Signs Vitals Vital Signs Date Time Temp Pulse Resp B/P Pulse Ox O2 Delivery O2 Flow Rate FiO2 05/07/17 08:09 86 05/07/17 07:55 16 96 21 05/07/17 07:40 98.3 145/66 05/06/17 20:00 Nasal Cannula 2.0 Intake and Output 05/06/17 05/06/17 05/07/17 15:00 23:00 07:00 Intake Total 500 ml 1680 ml Output Total 1000 ml 1200 ml Balance -500 ml 480 ml Exam Constitutional: alert Respiratory: clear to auscultation, diminished breath sounds Cardiovascular: nl pulses, regular rate and rhythm Musculoskeletal: nl extremities to inspection Extremities: normal pulses Neurological: confused, nl speech Results Result Diagram: 05/06/17 0655 05/06/17 0655 Results 24 hrs Laboratory Tests Test 05/06/17 12:19 05/06/17 18:09 05/06/17 21:26 05/07/17 00:22 Bedside Glucose 89 81 196 209 Test 05/07/17 05:50 Bedside Glucose 166 Medications Medications Current Medications Acetaminophen (Tylenol Tab) 650 mg Q6H PRN GTB PAIN AND OR ELEVATED TEMP Last administered on 05/05/17 12:01; Admin Dose 650 MG; Start 04/17/17 at 18:00 Bisacodyl (Dulcolax Supp) 10 mg Q24H [place] Last administered on 05/06/17 21:19; Admin Dose 10 MG; Start 04/17/17 at 18:00 Diphenhydramine HCl (Benadryl) 25 mg Q6H PRN GTB ITCHING Last administered on 06:37; Admin Dose 25 MG; Start 04/17/17 at 18:00 Hydralazine HCl (Apresoline) 50 mg Q8 PRN GTB ELEVATED BLOOD PRESSURE Last administered on 04/18/17 13:18; Admin Dose 50 MG; Start 04/17/17 at 18:00 Multivitamins Therapeutic (Theragran) 1 tab DAILY GTB Last administered on 05/07 08:43; Admin Dose 1 TAB; Start 04/18/17 at 09:00 Miscellaneous Information 1 ea NOTE XX ; Start 04/17/17 at 21:00 Glucose (Glutose) 15 gm Q15M PRN PO DECREASED GLUCOSE; Start 04/17/17 at 21:00 Glucose (Glutose) 22.5 gm Q15M PRN PO DECREASED GLUCOSE; Start 04/17/17 at 21: 00 Dextrose (D50w Syringe) 25 ml Q15M PRN IV DECREASED GLUCOSE Last administered on 04/20/17 17:22; Admin Dose 25 ML; Start 04/17/17 at 21:00 Dextrose (D50w Syringe) 50 ml Q15M PRN IV DECREASED GLUCOSE Last administered on 05/06/17 06:24; Admin Dose 50 ML; Start 04/17/17 at 21:00 Glucagon (Glucagen) 1 mg Q15M PRN IM DECREASED GLUCOSE; Start 04/17/17 at 21:00 Glucose (Glutose) 15 gm Q15M PRN BUCCAL DECREASED GLUCOSE; Start 04/17/17 at 21 :00 Ondansetron HCl (Zofran Inj) 4 mg Q6H PRN IV NAUSEA AND/OR VOMITING; Start at 00:30 Insulin Aspart (Novolog Insulin Pen) (Adult SC Insulin - Mild Algorithm)... Q6 SC Last administered on 05/07/17 05:58; Admin Dose 1 UNIT; Start 04/20/17 at 00:00 Insulin Glargine (Lantus) 14 unit QHS SC Last administered on 05/06/17 21:29; Admin Dose 14 UNIT; Start 04/20/17 at 21:00 Metoprolol Tartrate (Lopressor) 25 mg BID PO Last administered on 04/28/17 08: 14; Admin Dose 25 MG; Start 04/23/17 at 09:00; Status Future Hold Hydralazine HCl (Apresoline) 25 mg Q8 PO Last administered on 05/07/17 06:05; Admin Dose 25 MG; Start 04/22/17 at 22:00 Hydralazine HCl (Apresoline) 10 mg Q4H PRN IV SBP>170; Start 04/22/17 at 22:00 Nitroglycerin (Nitroglycerin (Sl Tab) 0.4 Mg) 1 tab Q5M PRN SL ANGINA; Start at 18:00 Acetaminophen/ Hydrocodone Bitart ([place] (5/325)) 1 tab Q6H PRN PO PAIN LEVEL 4 -7 Last administered on 05/03/17 12:31; Admin Dose 1 TAB; Start 05/03/17 at 03: 30 Acetaminophen (Tylenol Liquid) 650 mg Q4H PRN GTB PAIN AND OR ELEVATED TEMP; Start 05/03/17 at 03:30 Pantoprazole (Protonix Iv) 40 mg BID@06,18 IV Last administered on 05/07/17 06 :02; Admin Dose 40 MG; Start 05/05/17 at 18:00 Metoclopramide HCl 5 mg 5 mg TID IV Last administered on 05/07/17 08:43; Admin Dose 5 MG; Start 05/05/17 at 13:00 Dextrose/Sodium Chloride (D5-1/2ns) 1,000 ml @ 50 mls/hr Q20H IV Last administered on 05/07/17 06:05; Admin Dose 50 MLS/HR; Start 05/05/17 at 12:00 Amlodipine Besylate (Norvasc) 5 mg DAILY GTB Last administered on 05/07/17t 08: 43; Admin Dose 5 MG; Start 05/07/17 at 09:00 MARCY WEINER May 07, 2017 10:16
--- NOTE | 2017-05-07 10:39 | CONS ---
Date/Time of Note Date/Time of Note DATE: 05/07/17 TIME: 10:37 Assessment/Plan Assessment/Plan Chief Complaint/Hosp Course 1. CKD, mild 2. Encephalopathy 3. SIRS 4. UTI 5. Dysphagia Problems: Additional Assessment/Plan 1.HD q week Consultation Date/Type/Reason Admit Date/Time Apr 17, 2017 at 16:39 Initial Consult Date 04/18/17 Type of Consultation: nephrology Reason for Consultation Dr Cheema Referring Provider: PORTIA OLIVER MD 24 HR Interval Summary Constitutional: other (itching on absomen) Exam/Review of Systems Vital Signs Vitals Vital Signs Date Time Temp Pulse Resp B/P Pulse Ox O2 Delivery O2 Flow Rate FiO2 05/07/17 08:09 86 05/07/17 07:55 16 96 21 05/07/17 07:40 98.3 145/66 05/06/17 20:00 Nasal Cannula 2.0 Intake and Output 05/06/17 05/06/17 05/07/17 14:59 22:59 06:59 Intake Total 500 ml 1680 ml Output Total 1000 ml 1200 ml Balance -500 ml 480 ml Exam Constitutional: other (confused) Gastrointestinal: other (GT), soft Genitourinary - Male: other (R chest HD cath) Results Result Diagram: 05/06/17 0655 05/06/17 0655 Results 24 hrs Laboratory Tests Test 05/06/17 12:19 05/06/17 18:09 05/06/17 21:26 05/07/17 00:22 Bedside Glucose 89 81 196 209 Test 05/07/17 05:50 Bedside Glucose 166 Medications Medications Current Medications Acetaminophen (Tylenol Tab) 650 mg Q6H PRN GTB PAIN AND OR ELEVATED TEMP Last administered on 05/05/17 12:01; Admin Dose 650 MG; Start 04/17/17 at 18:00 Bisacodyl (Dulcolax Supp) 10 mg Q24H [place] Last administered on 05/06/17 21:19; Admin Dose 10 MG; Start 04/17/17 at 18:00 Diphenhydramine HCl (Benadryl) 25 mg Q6H PRN GTB ITCHING Last administered on 06:37; Admin Dose 25 MG; Start 04/17/17 at 18:00 Hydralazine HCl (Apresoline) 50 mg Q8 PRN GTB ELEVATED BLOOD PRESSURE Last administered on 04/18/17 13:18; Admin Dose 50 MG; Start 04/17/17 at 18:00 Multivitamins Therapeutic (Theragran) 1 tab DAILY GTB Last administered on 05/07 08:43; Admin Dose 1 TAB; Start 04/18/17 at 09:00 Miscellaneous Information 1 ea NOTE XX ; Start 04/17/17 at 21:00 Glucose (Glutose) 15 gm Q15M PRN PO DECREASED GLUCOSE; Start 04/17/17 at 21:00 Glucose (Glutose) 22.5 gm Q15M PRN PO DECREASED GLUCOSE; Start 04/17/17 at 21: 00 Dextrose (D50w Syringe) 25 ml Q15M PRN IV DECREASED GLUCOSE Last administered on 04/20/17 17:22; Admin Dose 25 ML; Start 04/17/17 at 21:00 Dextrose (D50w Syringe) 50 ml Q15M PRN IV DECREASED GLUCOSE Last administered on 05/06/17 06:24; Admin Dose 50 ML; Start 04/17/17 at 21:00 Glucagon (Glucagen) 1 mg Q15M PRN IM DECREASED GLUCOSE; Start 04/17/17 at 21:00 Glucose (Glutose) 15 gm Q15M PRN BUCCAL DECREASED GLUCOSE; Start 04/17/17 at 21 :00 Ondansetron HCl (Zofran Inj) 4 mg Q6H PRN IV NAUSEA AND/OR VOMITING; Start at 00:30 Insulin Aspart (Novolog Insulin Pen) (Adult SC Insulin - Mild Algorithm)... Q6 SC Last administered on 05/07/17 05:58; Admin Dose 1 UNIT; Start 04/20/17 at 00:00 Insulin Glargine (Lantus) 14 unit QHS SC Last administered on 05/06/17 21:29; Admin Dose 14 UNIT; Start 04/20/17 at 21:00 Metoprolol Tartrate (Lopressor) 25 mg BID PO Last administered on 04/28/17 08: 14; Admin Dose 25 MG; Start 04/23/17 at 09:00; Status Future Hold Hydralazine HCl (Apresoline) 25 mg Q8 PO Last administered on 05/07/17 06:05; Admin Dose 25 MG; Start 04/22/17 at 22:00 Hydralazine HCl (Apresoline) 10 mg Q4H PRN IV SBP>170; Start 04/22/17 at 22:00 Nitroglycerin (Nitroglycerin (Sl Tab) 0.4 Mg) 1 tab Q5M PRN SL ANGINA; Start at 18:00 Acetaminophen/ Hydrocodone Bitart ([place] (5/325)) 1 tab Q6H PRN PO PAIN LEVEL 4 -7 Last administered on 05/03/17 12:31; Admin Dose 1 TAB; Start 05/03/17 at 03: 30 Acetaminophen (Tylenol Liquid) 650 mg Q4H PRN GTB PAIN AND OR ELEVATED TEMP; Start 05/03/17 at 03:30 Pantoprazole (Protonix Iv) 40 mg BID@06,18 IV Last administered on 05/07/17 06 :02; Admin Dose 40 MG; Start 05/05/17 at 18:00 Metoclopramide HCl 5 mg 5 mg TID IV Last administered on 05/07/17 08:43; Admin Dose 5 MG; Start 05/05/17 at 13:00 Dextrose/Sodium Chloride (D5-1/2ns) 1,000 ml @ 50 mls/hr Q20H IV Last administered on 05/07/17 06:05; Admin Dose 50 MLS/HR; Start 05/05/17 at 12:00 Amlodipine Besylate (Norvasc) 5 mg DAILY GTB Last administered on 05/07/17 08: 43; Admin Dose 5 MG; Start 05/07/17 at 09:00 CHELSIE HERNÁNDEZ May 07, 2017 10:39
[2017-05-07] MEDS: DIPHENHYDRAMINE 2%/ZINC 28.4 GM CR TOP PRN (12:16)
--- NOTE | 2017-05-07 15:02 | CONS ---
Date/Time of Note Date/Time of Note DATE: 05/07/17 TIME: 15:00 Assessment/Plan Assessment/Plan Additional Assessment/Plan 1.HTN-somewhat labile today - HD as needed, will monitor clinically now 2.H/O PAF-Remains in SR at this time - in sinus on tele now 3.renal failure - renal team follows 4.dysphagia 5. AMS - more alert 6. Heart pgygt-unecicgil-hnbuox HR.improved with holding BB overall some intermittent recurrence 7. Chest pain-resolved/negative troponin/no change on serial ecg 8. Occasional PVC's 9. CHF-diastolic CHRIONIC - good fluid status now 10.UTI 11.anemia Consultation Date/Type/Reason Admit Date/Time Apr 17, 2017 at 16:39 Initial Consult Date 04/18/17 Type of Consultation: nephrology Referring Provider: PORTIA OLIVER MD 24 HR Interval Summary Free Text/Dictation NO acute events - not in CHF buy exam ROS: No fever, no chills, no nausea, no vomiting, no diarrhea/constipation No recent weight changes No chest pain, no PND, no orthopnea No dizziness, blurred vision No thirst, no heat or cold intolerance Exam/Review of Systems Vital Signs Vitals Vital Signs Date Time Temp Pulse Resp B/P Pulse Ox O2 Delivery O2 Flow Rate FiO2 05/07/17 13:14 77 05/07/17 12:50 18 05/07/17 11:54 98.2 144/68 96 05/07/17 07:55 21 05/06/17 20:00 Nasal Cannula 2.0 Intake and Output 05/06/17 05/06/17 05/07/17 15:00 23:00 07:00 Intake Total 500 ml 1680 ml Output Total 1000 ml 1200 ml Balance -500 ml 480 ml Exam General: WN/WD/NAD, AOx 1-2 HEENT: Unicetric/atraumatic/EOMI (does not follow commands) NECK: JVD elevated, no thyromegaly Lymph: no lymphadenopathy HEART: regular with no S3, II/ systolic murmur at apex LUNGS: Coarse sounds ABD: soft, NT, ND, +BS : Intact Neuro: non focal SKIN: chronic changes EXT: trace edema Results Result Diagram: 05/06/17 0655 05/06/17 0655 Results 24 hrs Laboratory Tests Test 05/06/17 18:09 05/06/17 21:26 05/07/17 00:22 05/07/17 05:50 Bedside Glucose 81 196 209 166 Test 05/07/17 12:26 Bedside Glucose 146 Medications Medications Current Medications Acetaminophen (Tylenol Tab) 650 mg Q6H PRN GTB PAIN AND OR ELEVATED TEMP Last administered on 05/05/17 12:01; Admin Dose 650 MG; Start 04/17/17 at 18:00 Bisacodyl (Dulcolax Supp) 10 mg Q24H [place] Last administered on 05/06/17 21:19; Admin Dose 10 MG; Start 04/17/17 at 18:00 Diphenhydramine HCl (Benadryl) 25 mg Q6H PRN GTB ITCHING Last administered on 06:37; Admin Dose 25 MG; Start 04/17/17 at 18:00 Hydralazine HCl (Apresoline) 50 mg Q8 PRN GTB ELEVATED BLOOD PRESSURE Last administered on 04/18/17 13:18; Admin Dose 50 MG; Start 04/17/17 at 18:00 Multivitamins Therapeutic (Theragran) 1 tab DAILY GTB Last administered on 05/07 08:43; Admin Dose 1 TAB; Start 04/18/17 at 09:00 Miscellaneous Information 1 ea NOTE XX ; Start 04/17/17 at 21:00 Glucose (Glutose) 15 gm Q15M PRN PO DECREASED GLUCOSE; Start 04/17/17 at 21:00 Glucose (Glutose) 22.5 gm Q15M PRN PO DECREASED GLUCOSE; Start 04/17/17 at 21: 00 Dextrose (D50w Syringe) 25 ml Q15M PRN IV DECREASED GLUCOSE Last administered on 04/20/17 17:22; Admin Dose 25 ML; Start 04/17/17 at 21:00 Dextrose (D50w Syringe) 50 ml Q15M PRN IV DECREASED GLUCOSE Last administered on 05/06/17 06:24; Admin Dose 50 ML; Start 04/17/17 at 21:00 Glucagon (Glucagen) 1 mg Q15M PRN IM DECREASED GLUCOSE; Start 04/17/17 at 21:00 Glucose (Glutose) 15 gm Q15M PRN BUCCAL DECREASED GLUCOSE; Start 04/17/17 at 21 :00 Ondansetron HCl (Zofran Inj) 4 mg Q6H PRN IV NAUSEA AND/OR VOMITING; Start at 00:30 Insulin Aspart (Novolog Insulin Pen) (Adult SC Insulin - Mild Algorithm)... Q6 SC Last administered on 05/07/17 12:27; Admin Dose 1 UNIT; Start 04/20/17 at 00:00 Insulin Glargine (Lantus) 14 unit QHS SC Last administered on 05/06/17 21:29; Admin Dose 14 UNIT; Start 04/20/17 at 21:00 Metoprolol Tartrate (Lopressor) 25 mg BID PO Last administered on 04/28/17 08: 14; Admin Dose 25 MG; Start 04/23/17 at 09:00; Status Future Hold Hydralazine HCl (Apresoline) 25 mg Q8 PO Last administered on 05/07/17 14:56; Admin Dose 25 MG; Start 04/22/17 at 22:00 Hydralazine HCl (Apresoline) 10 mg Q4H PRN IV SBP>170; Start 04/22/17 at 22:00 Nitroglycerin (Nitroglycerin (Sl Tab) 0.4 Mg) 1 tab Q5M PRN SL ANGINA; Start at 18:00 Acetaminophen/ Hydrocodone Bitart ([place] (5/325)) 1 tab Q6H PRN PO PAIN LEVEL 4 -7 Last administered on 05/03/17 12:31; Admin Dose 1 TAB; Start 05/03/17 at 03: 30 Acetaminophen (Tylenol Liquid) 650 mg Q4H PRN GTB PAIN AND OR ELEVATED TEMP; Start 05/03/17 at 03:30 Pantoprazole (Protonix Iv) 40 mg BID@06,18 IV Last administered on 05/07/17 06 :02; Admin Dose 40 MG; Start 05/05/17 at 18:00 Metoclopramide HCl 5 mg 5 mg TID IV Last administered on 05/07/17 14:51; Admin Dose 5 MG; Start 05/05/17 at 13:00 Dextrose/Sodium Chloride (D5-1/2ns) 1,000 ml @ 50 mls/hr Q20H IV Last administered on 05/07/17 06:05; Admin Dose 50 MLS/HR; Start 05/05/17 at 12:00 Amlodipine Besylate (Norvasc) 5 mg DAILY GTB Last administered on 05/07/17 08: 43; Admin Dose 5 MG; Start 05/07/17 at 09:00 Zinc Acetate/ Diphenhydramine (Benadryl 2% Cr) 1 applic Q8 PRN TOP ITCHING Last administered on 05/07/17 12:16; Admin Dose 1 APPLIC; Start 05/07/17 at 11: 00 HERBERTH ZUNIGA MD May 07, 2017 15:02
[2017-05-07 17:14] LABS: BASOPHIL # 0.1 10^3/ul (0.0-0.1); BASOPHILS % 0.9 % (0.0-2.0); EOSINOPHILS # 0.9 10^3/ul (0.0-0.5); EOSINOPHILS % 8.3 % (0.0-7.0); HEMATOCRIT 26.4 % (42.0-52.0); HEMOGLOBIN 8.6 g/dl (14.0-18.0); LYMPHOCYTES # 1.4 10^3/ul (0.8-2.9); LYMPHOCYTES % 12.5 % (15.0-51.0); MEAN CORPUSCULAR HEMOGLOBIN 27.9 pg (29.0-33.0); MEAN CORPUSCULAR HGB CONC 32.6 g/dl (32.0-37.0); MEAN CORPUSCULAR VOLUME 85.7 fl (82.0-101.0); MEAN PLATELET VOLUME 10.8 fl (7.4-10.4); MONOCYTES % 8.8 % (0.0-11.0); NEUTROPHIL # 7.6 10^3/ul (1.6-7.5); PLATELET COUNT 222 10^3/UL (140-415); RED BLOOD COUNT 3.08 10^6/ul (4.70-6.10); RED CELL DISTRIBUTION WIDTH 19.7 % (11.5-14.5)
[2017-05-07 17:32] LABS: CALCIUM 8.6 mg/dl (8.4-10.2); CREATININE 1.21 mg/dl (0.61-1.24); POTASSIUM 3.2 mmol/L (3.5-5.1)
[2017-05-07] MEDS: BISACODYL 10 MG SUPP PR SCH (18:00)
[2017-05-07] MEDS ORDERED: HYDROCODONE/APAP (5/325) TAB PO PRN (19:00)
[2017-05-07] MEDS ORDERED: POTASSIUM CHLORIDE (SR) 10 MEQ TAB GTB ONE (20:00)
[2017-05-07] MEDS: INSULIN GLARGINE [LANtus] 3 ML PEN SC SCH (21:19)
--- NOTE | 2017-05-07 22:32 | RADRPT ---
PROCEDURE: XR Chest. CLINICAL INDICATION: Shortness of breath TECHNIQUE: Single AP portable chest. COMPARISON: 11/05/2016 Chest x-ray FINDINGS: The cardiomediastinal silhouette is within normal limits of size. Hyperexpansion of the suggestive o f COPD. Vascular congestion with right dialysis catheter tip overlying the mid superior vena cava. Atherosclerotic calcification of the aorta. The lungs are clear without pleural effusion or focal c onsolidation. No pneumothorax. The osseous structures and soft tissues are unremarkable. IMPRESSION: 1. No evidence for active cardiopulmonary disease. 2. Mild vascular congestion. RPTAT:AAJJ Physician Kyra Date Time Electronically viewed and signed by Physician Kyra on 05/07/2017 22:31 SIN/
[2017-05-08] VITALS (17 sets, daily range): BP systolic 125–162; BP diastolic 65–77; PULSE 85–96; RESP 16–19
[2017-05-08] MEDS: Insulin NOVOLOG SS MILD Algorithm (NPO/TPN/ENTERAL FEEDS) SC SCH ×4 (00:07→18:26)
[2017-05-08] MEDS: ALBUTEROL/IPRATROPIUM (NEB) 3 ML AMP HHN SCH ×4 (01:43→19:32)
[2017-05-08] MEDS: PANTOPRAZOLE 40 MG INJ IV SCH (05:52)
[2017-05-08] MEDS: FUROSEMIDE 20 MG INJ IV SCH ×2 (05:53→18:05)
[2017-05-08] MEDS: AMLODIPINE 5 MG TAB GTB SCH (08:28)
[2017-05-08] MEDS: METOCLOPRAMIDE 10 MG INJ IV SCH ×3 (08:28→20:55)
[2017-05-08] MEDS: MULTIVITAMINS THERAPEUTIC TAB GTB SCH (08:28)
[2017-05-08 08:47] LABS: BASOPHIL # 0.1 10^3/ul (0.0-0.1); BASOPHILS % 0.8 % (0.0-2.0); EOSINOPHILS # 1.2 10^3/ul (0.0-0.5); EOSINOPHILS % 9.9 % (0.0-7.0); HEMATOCRIT 28.9 % (42.0-52.0); HEMOGLOBIN 9.2 g/dl (14.0-18.0); LYMPHOCYTES # 1.5 10^3/ul (0.8-2.9); LYMPHOCYTES % 12.4 % (15.0-51.0); MEAN CORPUSCULAR HGB CONC 31.8 g/dl (32.0-37.0); MEAN CORPUSCULAR VOLUME 87.8 fl (82.0-101.0); MEAN PLATELET VOLUME 11.5 fl (7.4-10.4); MONOCYTES % 8.1 % (0.0-11.0); NEUTROPHIL # 8.3 10^3/ul (1.6-7.5); NEUTROPHILS % 68.5 % (39.0-77.0); PLATELET COUNT 266 10^3/UL (140-415); RED BLOOD COUNT 3.29 10^6/ul (4.70-6.10); RED CELL DISTRIBUTION WIDTH 19.8 % (11.5-14.5); WHITE BLOOD COUNT 12.2 10^3/ul (4.8-10.8)
[2017-05-08 09:07] LABS: CALCIUM 8.5 mg/dl (8.4-10.2); CREATININE 1.69 mg/dl (0.61-1.24); POTASSIUM 3.6 mmol/L (3.5-5.1)
--- NOTE | 2017-05-08 12:41 | PN ---
Date/Time of Note Date/Time of Note DATE: 05/08/17 TIME: 12:41 Assessment/Plan VTE Prophylaxis VTE Prophylaxis Intervention: other Lines/Catheters IV Catheter Type (from Nrsg): Permacath Urinary Cath still in place: Yes Reason Cath still needed: skin wounds contaminated by urine Assessment/Plan Chief Complaint/Hosp Course - Acute renal failure on Chronic Kidney disease-sp right chest Perma cath placement, SP HD yesterday- tolerated well. - per nephro consult- dr Cheema - Anemia- Hgb dropped. - per gi - Leukocytosis sec to UTI- maira Albicans - -Acute cystitis without hematuria - sp Vanco/Zosyn - fu urine c/s - ID consult- Dr Garcia notified - am labs -Acute weakness sec to Dizziness - cardiology consult - 2D Echo am- LVEF 65% - Electrolyte imbalance- per nephrology - Hyperkalemia- RESOLVED - Hypernatremia - Hyperphosphatemia - Dysphagia - sp PEG placement - aspiration precautions - cont tube feeding - History of paroxysmal atrial fibrillation.- no acute issues. SR at present - Diabetes mellitus. - Glycemic control - Dietary consult - inside sales associate consult - Chronic kidney disease. - History of cerebrovascular accident- no acute issues reported - Hx AMS Problems: Subjective 24 Hr Interval Summary Free Text/Dictation Patient is awake but not verbally responsive Exam/Review of Systems Vital Signs Vitals Vital Signs Date Time Temp Pulse Resp B/P Pulse Ox O2 Delivery O2 Flow Rate FiO2 05/08/17 12:06 92 05/08/17 11:37 98.5 16 160/74 97 05/08/17 07:50 21 05/06/17 20:00 Nasal Cannula 2.0 Intake and Output 05/07/17 05/07/17 05/08/17 15:00 23:00 07:00 Intake Total 900 ml 850 ml 1515 ml Output Total 900 ml 1000 ml 1400 ml Balance 0 ml -150 ml 115 ml Exam Constitutional: well developed Head: atraumatic, normocephalic Neck: supple Respiratory: diminished breath sounds Cardiovascular: regular rate and rhythm Gastrointestinal: non-tender, soft Extremities: normal pulses Results Result Diagram: 05/08/17 0807 05/08/17 0807 Results 24 hrs Laboratory Tests Test 05/07/17 17:05 05/07/17 18:30 05/07/17 21:09 05/07/17 23:49 White Blood Count 11.0 H Red Blood Count 3.08 L Hemoglobin 8.6 L Hematocrit 26.4 L Mean Corpuscular Volume 85.7 Mean Corpuscular Hemoglobin 27.9 L Mean Corpuscular Hemoglobin Concent 32.6 Red Cell Distribution Width 19.7 H Platelet Count 222 # Mean Platelet Volume 10.8 H Neutrophils % 69.0 Lymphocytes % 12.5 L Monocytes % 8.8 Eosinophils % 8.3 H Basophils % 0.9 Nucleated Red Blood Cells % 0.0 Neutrophils # 7.6 H Lymphocytes # 1.4 Monocytes # 1.0 H Eosinophils # 0.9 H Basophils # 0.1 Nucleated Red Blood Cells # 0.0 Sodium Level 143 Potassium Level 3.2 L Chloride Level 107 Carbon Dioxide Level 32 H Anion Gap 7 L Blood Urea Nitrogen 22 #H Creatinine 1.21 # Glucose Level 215 Calcium Level 8.6 Bedside Glucose 221 H 128 160 Test 05/08/17 05:51 05/08/17 08:07 05/08/17 12:33 Bedside Glucose 159 209 White Blood Count 12.2 H Red Blood Count 3.29 L Hemoglobin 9.2 L Hematocrit 28.9 L Mean Corpuscular Volume 87.8 Mean Corpuscular Hemoglobin 28.0 L Mean Corpuscular Hemoglobin Concent 31.8 L Red Cell Distribution Width 19.8 H Platelet Count 266 Mean Platelet Volume 11.5 H Neutrophils % 68.5 Lymphocytes % 12.4 L Monocytes % 8.1 Eosinophils % 9.9 H Basophils % 0.8 Nucleated Red Blood Cells % 0.0 Neutrophils # 8.3 H Lymphocytes # 1.5 Monocytes # 1.0 H Eosinophils # 1.2 H Basophils # 0.1 Nucleated Red Blood Cells # 0.0 Sodium Level 140 Potassium Level 3.6 Chloride Level 104 Carbon Dioxide Level 32 H Anion Gap 8 Blood Urea Nitrogen 30 H Creatinine 1.69 H Glucose Level 131 # Calcium Level 8.5 Medications Medications Current Medications Acetaminophen (Tylenol Tab) 650 mg Q6H PRN GTB PAIN AND OR ELEVATED TEMP Last administered on 05/05/17 12:01; Admin Dose 650 MG; Start 04/17/17 at 18:00 Bisacodyl (Dulcolax Supp) 10 mg Q24H [place] Last administered on 05/07/17 18:00; Admin Dose 10 MG; Start 04/17/17 at 18:00 Diphenhydramine HCl (Benadryl) 25 mg Q6H PRN GTB ITCHING Last administered on 06:37; Admin Dose 25 MG; Start 04/17/17 at 18:00 Hydralazine HCl (Apresoline) 50 mg Q8 PRN GTB ELEVATED BLOOD PRESSURE Last administered on 04/18/17 13:18; Admin Dose 50 MG; Start 04/17/17 at 18:00 Multivitamins Therapeutic (Theragran) 1 tab DAILY GTB Last administered on 05/08 08:28; Admin Dose 1 TAB; Start 04/18/17 at 09:00 Miscellaneous Information 1 ea NOTE XX ; Start 04/17/17 at 21:00 Glucose (Glutose) 15 gm Q15M PRN PO DECREASED GLUCOSE; Start 04/17/17 at 21:00 Glucose (Glutose) 22.5 gm Q15M PRN PO DECREASED GLUCOSE; Start 04/17/17 at 21: 00 Dextrose (D50w Syringe) 25 ml Q15M PRN IV DECREASED GLUCOSE Last administered on 04/20/17 17:22; Admin Dose 25 ML; Start 04/17/17 at 21:00 Dextrose (D50w Syringe) 50 ml Q15M PRN IV DECREASED GLUCOSE Last administered on 05/06/17 06:24; Admin Dose 50 ML; Start 04/17/17 at 21:00 Glucagon (Glucagen) 1 mg Q15M PRN IM DECREASED GLUCOSE; Start 04/17/17 at 21:00 Glucose (Glutose) 15 gm Q15M PRN BUCCAL DECREASED GLUCOSE; Start 04/17/17 at 21 :00 Ondansetron HCl (Zofran Inj) 4 mg Q6H PRN IV NAUSEA AND/OR VOMITING; Start at 00:30 Insulin Aspart (Novolog Insulin Pen) (Adult SC Insulin - Mild Algorithm)... Q6 SC Last administered on 05/08/17 06:14; Admin Dose 1 UNIT; Start 04/20/17 at 00:00 Insulin Glargine (Lantus) 14 unit QHS SC Last administered on 05/07/17 21:19; Admin Dose 14 UNIT; Start 04/20/17 at 21:00 Metoprolol Tartrate (Lopressor) 25 mg BID PO Last administered on 04/28/17 08: 14; Admin Dose 25 MG; Start 04/23/17 at 09:00; Status Future Hold Hydralazine HCl (Apresoline) 25 mg Q8 PO Last administered on 05/08/17 05:53; Admin Dose 25 MG; Start 04/22/17 at 22:00 Hydralazine HCl (Apresoline) 10 mg Q4H PRN IV SBP>170; Start 04/22/17 at 22:00 Nitroglycerin (Nitroglycerin (Sl Tab) 0.4 Mg) 1 tab Q5M PRN SL ANGINA; Start at 18:00 Acetaminophen/ Hydrocodone Bitart ([place] (5/325)) 1 tab Q6H PRN PO PAIN LEVEL 4 -7 Last administered on 05/03/17 12:31; Admin Dose 1 TAB; Start 05/03/17 at 03: 30 Acetaminophen (Tylenol Liquid) 650 mg Q4H PRN GTB PAIN AND OR ELEVATED TEMP; Start 05/03/17 at 03:30 Pantoprazole (Protonix Iv) 40 mg BID@06,18 IV Last administered on 05/08/17 05 :52; Admin Dose 40 MG; Start 05/05/17 at 18:00 Metoclopramide HCl 5 mg 5 mg TID IV Last administered on 05/08/17 08:28; Admin Dose 5 MG; Start 05/05/17 at 13:00 Dextrose/Sodium Chloride (D5-1/2ns) 1,000 ml @ 50 mls/hr Q20H IV Last administered on 05/07/17 23:53; Admin Dose 50 MLS/HR; Start 05/05/17 at 12:00 Amlodipine Besylate (Norvasc) 5 mg DAILY GTB Last administered on 05/08/17 08: 28; Admin Dose 5 MG; Start 05/07/17 at 09:00 Zinc Acetate/ Diphenhydramine (Benadryl 2% Cr) 1 applic Q8 PRN TOP ITCHING Last administered on 05/07/17 12:16; Admin Dose 1 APPLIC; Start 05/07/17 at 11: 00 AURA CALL May 08, 2017 12:41
--- NOTE | 2017-05-08 13:02 | CONS ---
Date/Time of Note Date/Time of Note DATE: 05/08/17 TIME: 13:01 Assessment/Plan Assessment/Plan Chief Complaint/Hosp Course 1. CKD, mild 2. Encephalopathy 3. SIRS 4. UTI 5. Dysphagia Problems: Additional Assessment/Plan 1. Pt tolerated HD well 2. Continue as needed Consultation Date/Type/Reason Admit Date/Time Apr 17, 2017 at 16:39 Initial Consult Date 04/18/17 Type of Consultation: nephrology Reason for Consultation Dr Cheema Referring Provider: PORTIA OLIVER MD 24 HR Interval Summary Subjective hx not possible: pt non-verbal Exam/Review of Systems Vital Signs Vitals Vital Signs Date Time Temp Pulse Resp B/P Pulse Ox O2 Delivery O2 Flow Rate FiO2 05/08/17 12:06 92 05/08/17 11:37 98.5 16 160/74 97 05/08/17 07:50 21 05/06/17 20:00 Nasal Cannula 2.0 Intake and Output 05/07/17 05/07/17 05/08/17 15:00 23:00 07:00 Intake Total 900 ml 850 ml 1515 ml Output Total 900 ml 1000 ml 1400 ml Balance 0 ml -150 ml 115 ml Exam Constitutional: frail, other (confused) Respiratory: diminished breath sounds Cardiovascular: regular rate and rhythm Gastrointestinal: other (g t) Results Result Diagram: 05/08/17 0807 05/08/17 0807 Results 24 hrs Laboratory Tests Test 05/07/17 17:05 05/07/17 18:30 05/07/17 21:09 05/07/17 23:49 White Blood Count 11.0 H Red Blood Count 3.08 L Hemoglobin 8.6 L Hematocrit 26.4 L Mean Corpuscular Volume 85.7 Mean Corpuscular Hemoglobin 27.9 L Mean Corpuscular Hemoglobin Concent 32.6 Red Cell Distribution Width 19.7 H Platelet Count 222 # Mean Platelet Volume 10.8 H Neutrophils % 69.0 Lymphocytes % 12.5 L Monocytes % 8.8 Eosinophils % 8.3 H Basophils % 0.9 Nucleated Red Blood Cells % 0.0 Neutrophils # 7.6 H Lymphocytes # 1.4 Monocytes # 1.0 H Eosinophils # 0.9 H Basophils # 0.1 Nucleated Red Blood Cells # 0.0 Sodium Level 143 Potassium Level 3.2 L Chloride Level 107 Carbon Dioxide Level 32 H Anion Gap 7 L Blood Urea Nitrogen 22 #H Creatinine 1.21 # Glucose Level 215 Calcium Level 8.6 Bedside Glucose 221 H 128 160 Test 05/08/17 05:51 05/08/17 08:07 05/08/17 12:33 Bedside Glucose 159 209 White Blood Count 12.2 H Red Blood Count 3.29 L Hemoglobin 9.2 L Hematocrit 28.9 L Mean Corpuscular Volume 87.8 Mean Corpuscular Hemoglobin 28.0 L Mean Corpuscular Hemoglobin Concent 31.8 L Red Cell Distribution Width 19.8 H Platelet Count 266 Mean Platelet Volume 11.5 H Neutrophils % 68.5 Lymphocytes % 12.4 L Monocytes % 8.1 Eosinophils % 9.9 H Basophils % 0.8 Nucleated Red Blood Cells % 0.0 Neutrophils # 8.3 H Lymphocytes # 1.5 Monocytes # 1.0 H Eosinophils # 1.2 H Basophils # 0.1 Nucleated Red Blood Cells # 0.0 Sodium Level 140 Potassium Level 3.6 Chloride Level 104 Carbon Dioxide Level 32 H Anion Gap 8 Blood Urea Nitrogen 30 H Creatinine 1.69 H Glucose Level 131 # Calcium Level 8.5 Medications Medications Current Medications Acetaminophen (Tylenol Tab) 650 mg Q6H PRN GTB PAIN AND OR ELEVATED TEMP Last administered on 05/05/17 12:01; Admin Dose 650 MG; Start 04/17/17 at 18:00 Bisacodyl (Dulcolax Supp) 10 mg Q24H [place] Last administered on 05/07/17 18:00; Admin Dose 10 MG; Start 04/17/17 at 18:00 Diphenhydramine HCl (Benadryl) 25 mg Q6H PRN GTB ITCHING Last administered on 06:37; Admin Dose 25 MG; Start 04/17/17 at 18:00 Hydralazine HCl (Apresoline) 50 mg Q8 PRN GTB ELEVATED BLOOD PRESSURE Last administered on 04/18/17 13:18; Admin Dose 50 MG; Start 04/17/17 at 18:00 Multivitamins Therapeutic (Theragran) 1 tab DAILY GTB Last administered on 05/08 08:28; Admin Dose 1 TAB; Start 04/18/17 at 09:00 Miscellaneous Information 1 ea NOTE XX ; Start 04/17/17 at 21:00 Glucose (Glutose) 15 gm Q15M PRN PO DECREASED GLUCOSE; Start 04/17/17 at 21:00 Glucose (Glutose) 22.5 gm Q15M PRN PO DECREASED GLUCOSE; Start 04/17/17 at 21: 00 Dextrose (D50w Syringe) 25 ml Q15M PRN IV DECREASED GLUCOSE Last administered on 04/20/17 17:22; Admin Dose 25 ML; Start 04/17/17 at 21:00 Dextrose (D50w Syringe) 50 ml Q15M PRN IV DECREASED GLUCOSE Last administered on 05/06/17 06:24; Admin Dose 50 ML; Start 04/17/17 at 21:00 Glucagon (Glucagen) 1 mg Q15M PRN IM DECREASED GLUCOSE; Start 04/17/17 at 21:00 Glucose (Glutose) 15 gm Q15M PRN BUCCAL DECREASED GLUCOSE; Start 04/17/17 at 21 :00 Ondansetron HCl (Zofran Inj) 4 mg Q6H PRN IV NAUSEA AND/OR VOMITING; Start at 00:30 Insulin Aspart (Novolog Insulin Pen) (Adult SC Insulin - Mild Algorithm)... Q6 SC Last administered on 05/08/17 12:46; Admin Dose 2 UNIT; Start 04/20/17 at 00:00 Insulin Glargine (Lantus) 14 unit QHS SC Last administered on 05/07/17 21:19; Admin Dose 14 UNIT; Start 04/20/17 at 21:00 Metoprolol Tartrate (Lopressor) 25 mg BID PO Last administered on 04/28/17 08: 14; Admin Dose 25 MG; Start 04/23/17 at 09:00; Status Future Hold Hydralazine HCl (Apresoline) 25 mg Q8 PO Last administered on 05/08/17 05:53; Admin Dose 25 MG; Start 04/22/17 at 22:00 Hydralazine HCl (Apresoline) 10 mg Q4H PRN IV SBP>170; Start 04/22/17 at 22:00 Nitroglycerin (Nitroglycerin (Sl Tab) 0.4 Mg) 1 tab Q5M PRN SL ANGINA; Start at 18:00 Acetaminophen/ Hydrocodone Bitart ([place] (5/325)) 1 tab Q6H PRN PO PAIN LEVEL 4 -7 Last administered on 05/03/17 12:31; Admin Dose 1 TAB; Start 05/03/17 at 03: 30 Acetaminophen (Tylenol Liquid) 650 mg Q4H PRN GTB PAIN AND OR ELEVATED TEMP; Start 05/03/17 at 03:30 Pantoprazole (Protonix Iv) 40 mg BID@06,18 IV Last administered on 05/08/17 05 :52; Admin Dose 40 MG; Start 05/05/17 at 18:00 Metoclopramide HCl 5 mg 5 mg TID IV Last administered on 05/08/17 12:39; Admin Dose 5 MG; Start 05/05/17 at 13:00 Dextrose/Sodium Chloride (D5-1/2ns) 1,000 ml @ 50 mls/hr Q20H IV Last administered on 05/07/17 23:53; Admin Dose 50 MLS/HR; Start 05/05/17 at 12:00 Amlodipine Besylate (Norvasc) 5 mg DAILY GTB Last administered on 05/08/17 08: 28; Admin Dose 5 MG; Start 05/07/17 at 09:00 Zinc Acetate/ Diphenhydramine (Benadryl 2% Cr) 1 applic Q8 PRN TOP ITCHING Last administered on 05/07/17 12:16; Admin Dose 1 APPLIC; Start 05/07/17 at 11: 00 CHELSIE HERNÁNDEZ May 08, 2017 13:02
--- NOTE | 2017-05-08 14:30 | CONS ---
Date/Time of Note Date/Time of Note DATE: 05/08/17 TIME: 14:29 Assessment/Plan Assessment/Plan Additional Assessment/Plan 1.HTN-somewhat labile today - HD as needed, will monitor clinically now - consider clonidine patch now 2.H/O PAF-Remains in SR at this time - in sinus on tele now 3.renal failure - renal team follows 4.dysphagia 5. AMS - more alert - stable 6. Heart [id number] HR.improved with holding BB overall some intermittent recurrence 7. Chest pain-resolved/negative troponin/no change on serial ecg - no intervention planned 8. Occasional PVC's 9. CHF-diastolic CHRIONIC - good fluid status now 10.UTI 11.anemia Consultation Date/Type/Reason Admit Date/Time Apr 17, 2017 at 16:39 Initial Consult Date 04/18/17 Type of Consultation: nephrology Referring Provider: PORTIA OLIVER MD 24 HR Interval Summary Free Text/Dictation NO acute events - BP high - will consider clonidine patch. ROS: No fever, no chills, no nausea, no vomiting, no diarrhea/constipation No recent weight changes No chest pain, no PND, no orthopnea No dizziness, blurred vision No thirst, no heat or cold intolerance (per nurse) Exam/Review of Systems Vital Signs Vitals Vital Signs Date Time Temp Pulse Resp B/P Pulse Ox O2 Delivery O2 Flow Rate FiO2 05/08/17 12:06 92 05/08/17 11:37 98.5 16 160/74 97 05/08/17 07:50 21 05/06/17 20:00 Nasal Cannula 2.0 Intake and Output 05/07/17 05/07/17 05/08/17 15:00 23:00 07:00 Intake Total 900 ml 850 ml 1515 ml Output Total 900 ml 1000 ml 1400 ml Balance 0 ml -150 ml 115 ml Exam General: WN/WD/NAD, AOx 1 HEENT: Unicetric/atraumatic/EOMI (does not follow commands) NECK: JVD elevated, no thyromegaly Lymph: no lymphadenopathy HEART: regular with no S3, II/ systolic murmur at apex LUNGS: Coarse sounds ABD: soft, NT, ND, +BS : Intact Neuro: non focal SKIN: chronic changes EXT: trace edema Results Result Diagram: 05/08/17 0807 05/08/17 0807 Results 24 hrs Laboratory Tests Test 05/07/17 17:05 05/07/17 18:30 05/07/17 21:09 05/07/17 23:49 White Blood Count 11.0 H Red Blood Count 3.08 L Hemoglobin 8.6 L Hematocrit 26.4 L Mean Corpuscular Volume 85.7 Mean Corpuscular Hemoglobin 27.9 L Mean Corpuscular Hemoglobin Concent 32.6 Red Cell Distribution Width 19.7 H Platelet Count 222 # Mean Platelet Volume 10.8 H Neutrophils % 69.0 Lymphocytes % 12.5 L Monocytes % 8.8 Eosinophils % 8.3 H Basophils % 0.9 Nucleated Red Blood Cells % 0.0 Neutrophils # 7.6 H Lymphocytes # 1.4 Monocytes # 1.0 H Eosinophils # 0.9 H Basophils # 0.1 Nucleated Red Blood Cells # 0.0 Sodium Level 143 Potassium Level 3.2 L Chloride Level 107 Carbon Dioxide Level 32 H Anion Gap 7 L Blood Urea Nitrogen 22 #H Creatinine 1.21 # Glucose Level 215 Calcium Level 8.6 Bedside Glucose 221 H 128 160 Test 05/08/17 05:51 05/08/17 08:07 05/08/17 12:33 Bedside Glucose 159 209 White Blood Count 12.2 H Red Blood Count 3.29 L Hemoglobin 9.2 L Hematocrit 28.9 L Mean Corpuscular Volume 87.8 Mean Corpuscular Hemoglobin 28.0 L Mean Corpuscular Hemoglobin Concent 31.8 L Red Cell Distribution Width 19.8 H Platelet Count 266 Mean Platelet Volume 11.5 H Neutrophils % 68.5 Lymphocytes % 12.4 L Monocytes % 8.1 Eosinophils % 9.9 H Basophils % 0.8 Nucleated Red Blood Cells % 0.0 Neutrophils # 8.3 H Lymphocytes # 1.5 Monocytes # 1.0 H Eosinophils # 1.2 H Basophils # 0.1 Nucleated Red Blood Cells # 0.0 Sodium Level 140 Potassium Level 3.6 Chloride Level 104 Carbon Dioxide Level 32 H Anion Gap 8 Blood Urea Nitrogen 30 H Creatinine 1.69 H Glucose Level 131 # Calcium Level 8.5 Medications Medications Current Medications Acetaminophen (Tylenol Tab) 650 mg Q6H PRN GTB PAIN AND OR ELEVATED TEMP Last administered on 05/05/17t 12:01; Admin Dose 650 MG; Start 04/17/17 at 18:00 Bisacodyl (Dulcolax Supp) 10 mg Q24H [place] Last administered on 05/07/17 18:00; Admin Dose 10 MG; Start 04/17/17 at 18:00 Diphenhydramine HCl (Benadryl) 25 mg Q6H PRN GTB ITCHING Last administered on 06:37; Admin Dose 25 MG; Start 04/17/17 at 18:00 Hydralazine HCl (Apresoline) 50 mg Q8 PRN GTB ELEVATED BLOOD PRESSURE Last administered on 04/18/17 13:18; Admin Dose 50 MG; Start 04/17/17 at 18:00 Multivitamins Therapeutic (Theragran) 1 tab DAILY GTB Last administered on 05/08 08:28; Admin Dose 1 TAB; Start 04/18/17 at 09:00 Miscellaneous Information 1 ea NOTE XX ; Start 04/17/17 at 21:00 Glucose (Glutose) 15 gm Q15M PRN PO DECREASED GLUCOSE; Start 04/17/17 at 21:00 Glucose (Glutose) 22.5 gm Q15M PRN PO DECREASED GLUCOSE; Start 04/17/17 at 21: 00 Dextrose (D50w Syringe) 25 ml Q15M PRN IV DECREASED GLUCOSE Last administered on 04/20/17 17:22; Admin Dose 25 ML; Start 04/17/17 at 21:00 Dextrose (D50w Syringe) 50 ml Q15M PRN IV DECREASED GLUCOSE Last administered on 05/06/17 06:24; Admin Dose 50 ML; Start 04/17/17 at 21:00 Glucagon (Glucagen) 1 mg Q15M PRN IM DECREASED GLUCOSE; Start 04/17/17 at 21:00 Glucose (Glutose) 15 gm Q15M PRN BUCCAL DECREASED GLUCOSE; Start 04/17/17 at 21 :00 Ondansetron HCl (Zofran Inj) 4 mg Q6H PRN IV NAUSEA AND/OR VOMITING; Start at 00:30 Insulin Aspart (Novolog Insulin Pen) (Adult SC Insulin - Mild Algorithm)... Q6 SC Last administered on 05/08/17 12:46; Admin Dose 2 UNIT; Start 04/20/17 at 00:00 Insulin Glargine (Lantus) 14 unit QHS SC Last administered on 05/07/17 21:19; Admin Dose 14 UNIT; Start 04/20/17 at 21:00 Metoprolol Tartrate (Lopressor) 25 mg BID PO Last administered on 04/28/17 08: 14; Admin Dose 25 MG; Start 04/23/17 at 09:00; Status Future Hold Hydralazine HCl (Apresoline) 25 mg Q8 PO Last administered on 05/08/17 05:53; Admin Dose 25 MG; Start 04/22/17 at 22:00 Hydralazine HCl (Apresoline) 10 mg Q4H PRN IV SBP>170; Start 04/22/17 at 22:00 Nitroglycerin (Nitroglycerin (Sl Tab) 0.4 Mg) 1 tab Q5M PRN SL ANGINA; Start at 18:00 Acetaminophen/ Hydrocodone Bitart ([place] (5/325)) 1 tab Q6H PRN PO PAIN LEVEL 4 -7 Last administered on 05/03/17 12:31; Admin Dose 1 TAB; Start 05/03/17 at 03: 30 Acetaminophen (Tylenol Liquid) 650 mg Q4H PRN GTB PAIN AND OR ELEVATED TEMP; Start 05/03/17 at 03:30 Pantoprazole (Protonix Iv) 40 mg BID@06,18 IV Last administered on 05/08/17 05 :52; Admin Dose 40 MG; Start 05/05/17 at 18:00 Metoclopramide HCl 5 mg 5 mg TID IV Last administered on 05/08/17 12:39; Admin Dose 5 MG; Start 05/05/17 at 13:00 Dextrose/Sodium Chloride (D5-1/2ns) 1,000 ml @ 50 mls/hr Q20H IV Last administered on 05/07/17 23:53; Admin Dose 50 MLS/HR; Start 05/05/17 at 12:00 Amlodipine Besylate (Norvasc) 5 mg DAILY GTB Last administered on 05/08/17 08: 28; Admin Dose 5 MG; Start 05/07/17 at 09:00 Zinc Acetate/ Diphenhydramine (Benadryl 2% Cr) 1 applic Q8 PRN TOP ITCHING Last administered on 05/07/17 12:16; Admin Dose 1 APPLIC; Start 05/07/17 at 11: 00 HERBERTH ZUNIGA MD May 08, 2017 14:30
[2017-05-08] MEDS: CLONIDINE 0.1 MG/24 HR PATCH TRANSDERM SCH (18:01)
[2017-05-08] MEDS: BISACODYL 10 MG SUPP PR SCH (18:04)
[2017-05-08] MEDS: LANSOPRAZOLE 30 MG CAP GTB SCH (18:05)
[2017-05-08] MEDS: INSULIN GLARGINE [LANtus] 3 ML PEN SC SCH (21:08)
[2017-05-09] VITALS (13 sets, daily range): BP systolic 97–156; BP diastolic 54–80; PULSE 77–117; RESP 14–19
[2017-05-09] MEDS: Insulin NOVOLOG SS MILD Algorithm (NPO/TPN/ENTERAL FEEDS) SC SCH ×4 (00:28→17:49)
[2017-05-09] MEDS: ALBUTEROL/IPRATROPIUM (NEB) 3 ML AMP HHN SCH ×4 (02:13→20:27)
[2017-05-09] MEDS: LANSOPRAZOLE 30 MG CAP GTB SCH ×2 (05:41→17:36)
[2017-05-09] MEDS: FUROSEMIDE 20 MG INJ IV SCH ×2 (05:42→17:36)
[2017-05-09] MEDS: AMLODIPINE 5 MG TAB GTB SCH (09:00)
[2017-05-09] MEDS: MULTIVITAMINS THERAPEUTIC TAB GTB SCH (09:05)
[2017-05-09] MEDS: METOCLOPRAMIDE 10 MG INJ IV SCH ×3 (09:05→20:54)
--- NOTE | 2017-05-09 12:46 | PN ---
Date/Time of Note Date/Time of Note DATE: 05/09/17 TIME: 12:46 Assessment/Plan VTE Prophylaxis VTE Prophylaxis Intervention: other Lines/Catheters IV Catheter Type (from Nrsg): Perm Cath Urinary Cath still in place: Yes Reason Cath still needed: skin wounds contaminated by urine Assessment/Plan Chief Complaint/Hosp Course - Acute renal failure on Chronic Kidney disease-sp right chest Perma cath placement, SP HD yesterday- tolerated well. - per nephro consult- dr Cheema - Anemia- Hgb dropped. - per gi - Leukocytosis sec to UTI- maira Albicans - -Acute cystitis without hematuria - sp Vanco/Zosyn - fu urine c/s - ID consult- Dr Garcia notified - am labs -Acute weakness sec to Dizziness - cardiology consult - 2D Echo am- LVEF 65% - Electrolyte imbalance- per nephrology - Hyperkalemia- RESOLVED - Hypernatremia - Hyperphosphatemia - Dysphagia - sp PEG placement - aspiration precautions - cont tube feeding - History of paroxysmal atrial fibrillation.- no acute issues. SR at present - Diabetes mellitus. - Glycemic control - Dietary consult - religious educator consult - Chronic kidney disease. - History of cerebrovascular accident- no acute issues reported - Hx AMS Problems: Subjective 24 Hr Interval Summary Free Text/Dictation Patient is not in room so unable to interview patient Exam/Review of Systems Vital Signs Vitals Vital Signs Date Time Temp Pulse Resp B/P Pulse Ox O2 Delivery O2 Flow Rate FiO2 05/09/17 12:08 82 05/09/17 11:45 98.3 16 136/62 94 05/09/17 07:53 21 05/06/17 20:00 Nasal Cannula 2.0 Intake and Output 05/08/17 05/08/17 05/09/17 15:00 23:00 07:00 Intake Total 1280 ml 980 ml Output Total 1700 ml 800 ml Balance -420 ml 180 ml Exam Patient not in room so unable to examine patient Results Result Diagram: 05/08/17 0807 05/08/17 0807 Results 24 hrs Laboratory Tests Test 05/08/17 18:21 05/08/17 20:57 05/09/17 00:18 05/09/17 05:38 Bedside Glucose 230 H 239 H 223 H 119 Medications Medications Current Medications Acetaminophen (Tylenol Tab) 650 mg Q6H PRN GTB PAIN AND OR ELEVATED TEMP Last administered on 05/05/17 12:01; Admin Dose 650 MG; Start 04/17/17 at 18:00 Bisacodyl (Dulcolax Supp) 10 mg Q24H [place] Last administered on 05/08/17 18:04; Admin Dose 10 MG; Start 04/17/17 at 18:00 Diphenhydramine HCl (Benadryl) 25 mg Q6H PRN GTB ITCHING Last administered on 06:37; Admin Dose 25 MG; Start 04/17/17 at 18:00 Hydralazine HCl (Apresoline) 50 mg Q8 PRN GTB ELEVATED BLOOD PRESSURE Last administered on 04/18/17 13:18; Admin Dose 50 MG; Start 04/17/17 at 18:00 Multivitamins Therapeutic (Theragran) 1 tab DAILY GTB Last administered on 05/09 09:05; Admin Dose 1 TAB; Start 04/18/17 at 09:00 Miscellaneous Information 1 ea NOTE XX ; Start 04/17/17 at 21:00 Glucose (Glutose) 15 gm Q15M PRN PO DECREASED GLUCOSE; Start 04/17/17 at 21:00 Glucose (Glutose) 22.5 gm Q15M PRN PO DECREASED GLUCOSE; Start 04/17/17 at 21: 00 Dextrose (D50w Syringe) 25 ml Q15M PRN IV DECREASED GLUCOSE Last administered on 04/20/17 17:22; Admin Dose 25 ML; Start 04/17/17 at 21:00 Dextrose (D50w Syringe) 50 ml Q15M PRN IV DECREASED GLUCOSE Last administered on 05/06/17 06:24; Admin Dose 50 ML; Start 04/17/17 at 21:00 Glucagon (Glucagen) 1 mg Q15M PRN IM DECREASED GLUCOSE; Start 04/17/17 at 21:00 Glucose (Glutose) 15 gm Q15M PRN BUCCAL DECREASED GLUCOSE; Start 04/17/17 at 21 :00 Ondansetron HCl (Zofran Inj) 4 mg Q6H PRN IV NAUSEA AND/OR VOMITING; Start at 00:30 Insulin Aspart (Novolog Insulin Pen) (Adult SC Insulin - Mild Algorithm)... Q6 SC Last administered on 05/09/17 00:28; Admin Dose 3 UNIT; Start 04/20/17 at 00:00 Insulin Glargine (Lantus) 14 unit QHS SC Last administered on 05/08/17 21:08; Admin Dose 14 UNIT; Start 04/20/17 at 21:00 Metoprolol Tartrate (Lopressor) 25 mg BID PO Last administered on 04/28/17 08: 14; Admin Dose 25 MG; Start 04/23/17 at 09:00; Status Future Hold Hydralazine HCl (Apresoline) 25 mg Q8 PO Last administered on 05/09/17 05:43; Admin Dose 25 MG; Start 04/22/17 at 22:00 Hydralazine HCl (Apresoline) 10 mg Q4H PRN IV SBP>170; Start 04/22/17 at 22:00 Nitroglycerin (Nitroglycerin (Sl Tab) 0.4 Mg) 1 tab Q5M PRN SL ANGINA; Start at 18:00 Acetaminophen/ Hydrocodone Bitart ([place] (5/325)) 1 tab Q6H PRN PO PAIN LEVEL 4 -7 Last administered on 05/03/17 12:31; Admin Dose 1 TAB; Start 05/03/17 at 03: 30 Acetaminophen (Tylenol Liquid) 650 mg Q4H PRN GTB PAIN AND OR ELEVATED TEMP; Start 05/03/17 at 03:30 Metoclopramide HCl (Reglan) 5 mg TID IV Last administered on 05/09/17 09:05; Admin Dose 5 MG; Start 05/05/17 at 13:00 Amlodipine Besylate (Norvasc) 5 mg DAILY GTB Last administered on 05/08/17 08: 28; Admin Dose 5 MG; Start 05/07/17 at 09:00 Zinc Acetate/ Diphenhydramine (Benadryl 2% Cr) 1 applic Q8 PRN TOP ITCHING Last administered on 05/07/17 12:16; Admin Dose 1 APPLIC; Start 05/07/17 at 11: 00 Lansoprazole (Prevacid) 30 mg BID@,18 GTB Last administered on 05/09/17 05: 41; Admin Dose 30 MG; Start 05/08/17 at 18:00 Clonidine HCl (Catapres-Tts 1 Patch) 1 patch Q7D TRANSDERM Last administered on 05/08/17t 18:01; Admin Dose 1 PATCH; Start 05/08/17 at 15:00 AURA CALL May 09, 2017 12:46
--- NOTE | 2017-05-09 13:21 | CONS ---
Date/Time of Note Date/Time of Note DATE: 05/09/17 TIME: 13:20 Assessment/Plan Assessment/Plan Additional Assessment/Plan 1.HTN-somewhat labile today - HD as needed, will monitor clinically now - consider clonidine patch now - will monitor closely 2.H/O PAF-Remains in SR at this time - in sinus on tele now - rate controlled 3.renal failure - renal team follows 4.dysphagia 5. AMS - more alert - stable 6. Heart [id number]-numrgt HR.improved with holding BB overall some intermittent recurrence 7. Chest pain-resolved/negative troponin/no change on serial ecg - no intervention planned 8. Occasional PVC's 9. CHF-diastolic CHRIONIC - good fluid status now 10.UTI 11.anemia Consultation Date/Type/Reason Admit Date/Time Apr 17, 2017 at 16:39 Initial Consult Date 04/18/17 Type of Consultation: nephrology Referring Provider: PORTIA OLIVER MD 24 HR Interval Summary Free Text/Dictation NO acute events - BP somewhat better now - still confused ROS: No fever, no chills, no nausea, no vomiting, no diarrhea/constipation No recent weight changes No chest pain, no PND, no orthopnea No dizziness, blurred vision No thirst, no heat or cold intolerance (per nurse, agitated) Exam/Review of Systems Vital Signs Vitals Vital Signs Date Time Temp Pulse Resp B/P Pulse Ox O2 Delivery O2 Flow Rate FiO2 05/09/17 12:08 82 05/09/17 11:45 98.3 16 136/62 94 05/09/17 07:53 21 05/06/17 20:00 Nasal Cannula 2.0 Intake and Output 05/08/17 05/08/17 05/09/17 15:00 23:00 07:00 Intake Total 1280 ml 980 ml Output Total 1700 ml 800 ml Balance -420 ml 180 ml Exam General: WN/WD/NAD, AOx confused HEENT: Unicetric/atraumatic/EOMI (does not follow commands) NECK: JVD elevated, no thyromegaly Lymph: no lymphadenopathy HEART: regular with no S3, II/ systolic murmur at apex LUNGS: Coarse sounds ABD: soft, NT, ND, +BS : Intact Neuro: non focal SKIN: chronic changes EXT: trace edema Results Result Diagram: 05/08/17 0807 05/08/17 0807 Results 24 hrs Laboratory Tests Test 05/08/17 18:21 05/08/17 20:57 05/09/17 00:18 05/09/17 05:38 Bedside Glucose 230 H 239 H 223 H 119 Medications Medications Current Medications Acetaminophen (Tylenol Tab) 650 mg Q6H PRN GTB PAIN AND OR ELEVATED TEMP Last administered on 05/05/17 12:01; Admin Dose 650 MG; Start 04/17/17 at 18:00 Bisacodyl (Dulcolax Supp) 10 mg Q24H [place] Last administered on 05/08/17 18:04; Admin Dose 10 MG; Start 04/17/17 at 18:00 Diphenhydramine HCl (Benadryl) 25 mg Q6H PRN GTB ITCHING Last administered on 06:37; Admin Dose 25 MG; Start 04/17/17 at 18:00 Hydralazine HCl (Apresoline) 50 mg Q8 PRN GTB ELEVATED BLOOD PRESSURE Last administered on 04/18/17 13:18; Admin Dose 50 MG; Start 04/17/17 at 18:00 Multivitamins Therapeutic (Theragran) 1 tab DAILY GTB Last administered on 05/09 09:05; Admin Dose 1 TAB; Start 04/18/17 at 09:00 Miscellaneous Information 1 ea NOTE XX ; Start 04/17/17 at 21:00 Glucose (Glutose) 15 gm Q15M PRN PO DECREASED GLUCOSE; Start 04/17/17 at 21:00 Glucose (Glutose) 22.5 gm Q15M PRN PO DECREASED GLUCOSE; Start 04/17/17 at 21: 00 Dextrose (D50w Syringe) 25 ml Q15M PRN IV DECREASED GLUCOSE Last administered on 04/20/17 17:22; Admin Dose 25 ML; Start 04/17/17 at 21:00 Dextrose (D50w Syringe) 50 ml Q15M PRN IV DECREASED GLUCOSE Last administered on 05/06/17 06:24; Admin Dose 50 ML; Start 04/17/17 at 21:00 Glucagon (Glucagen) 1 mg Q15M PRN IM DECREASED GLUCOSE; Start 04/17/17 at 21:00 Glucose (Glutose) 15 gm Q15M PRN BUCCAL DECREASED GLUCOSE; Start 04/17/17 at 21 :00 Ondansetron HCl (Zofran Inj) 4 mg Q6H PRN IV NAUSEA AND/OR VOMITING; Start at 00:30 Insulin Aspart (Novolog Insulin Pen) (Adult SC Insulin - Mild Algorithm)... Q6 SC Last administered on 05/09/17 00:28; Admin Dose 3 UNIT; Start 04/20/17 at 00:00 Insulin Glargine (Lantus) 14 unit QHS SC Last administered on 05/08/17 21:08; Admin Dose 14 UNIT; Start 04/20/17 at 21:00 Metoprolol Tartrate (Lopressor) 25 mg BID PO Last administered on 04/28/17 08: 14; Admin Dose 25 MG; Start 04/23/17 at 09:00; Status Future Hold Hydralazine HCl (Apresoline) 25 mg Q8 PO Last administered on 05/09/17 05:43; Admin Dose 25 MG; Start 04/22/17 at 22:00 Hydralazine HCl (Apresoline) 10 mg Q4H PRN IV SBP>170; Start 04/22/17 at 22:00 Nitroglycerin (Nitroglycerin (Sl Tab) 0.4 Mg) 1 tab Q5M PRN SL ANGINA; Start at 18:00 Acetaminophen/ Hydrocodone Bitart ([place] (5/325)) 1 tab Q6H PRN PO PAIN LEVEL 4 -7 Last administered on 05/03/17 12:31; Admin Dose 1 TAB; Start 05/03/17 at 03: 30 Acetaminophen (Tylenol Liquid) 650 mg Q4H PRN GTB PAIN AND OR ELEVATED TEMP; Start 05/03/17 at 03:30 Metoclopramide HCl (Reglan) 5 mg TID IV Last administered on 05/09/17 09:05; Admin Dose 5 MG; Start 05/05/17 at 13:00 Amlodipine Besylate (Norvasc) 5 mg DAILY GTB Last administered on 05/08/17 08: 28; Admin Dose 5 MG; Start 05/07/17 at 09:00 Zinc Acetate/ Diphenhydramine (Benadryl 2% Cr) 1 applic Q8 PRN TOP ITCHING Last administered on 05/07/17 12:16; Admin Dose 1 APPLIC; Start 05/07/17 at 11: 00 Lansoprazole (Prevacid) 30 mg BID@06,18 GTB Last administered on 05/09/17 05: 41; Admin Dose 30 MG; Start 05/08/17 at 18:00 Clonidine HCl (Catapres-Tts 1 Patch) 1 patch Q7D TRANSDERM Last administered on 05/08/17 18:01; Admin Dose 1 PATCH; Start 05/08/17 at 15:00 HERBERTH ZUNIGA MD May 09, 2017 13:21
[2017-05-09] MEDS: BISACODYL 10 MG SUPP PR SCH (17:37)
[2017-05-09] MEDS: ACETAMINOPHEN 650MG/20.3ML CUP GTB PRN (17:50)
--- NOTE | 2017-05-09 19:14 | CONS ---
Date/Time of Note Date/Time of Note DATE: 05/09/17 TIME: 19:13 Assessment/Plan Assessment/Plan Chief Complaint/Hosp Course 1 ckd w uremia BETTER 2.Hypernatremia better 3.HTN 4 Ecoli UTI 5 Sepsis 6 Chronic Afib 7 CVA s/p G tube placement 8 Renal cyst 9 uremia 10 pul edema plan continue HD FOR NOW Problems: Consultation Date/Type/Reason Admit Date/Time Apr 17, 2017 at 16:39 Type of Consultation: nephrology Referring Provider: PORTIA OLIVER MD 24 HR Interval Summary Constitutional: no complaints, other (AWAKE AND ALERT) Exam/Review of Systems Vital Signs Vitals Vital Signs Date Time Temp Pulse Resp B/P Pulse Ox O2 Delivery O2 Flow Rate FiO2 05/09/17 16:06 77 05/09/17 15:37 98.4 14 117/72 98 05/09/17 14:18 21 05/06/17 20:00 Nasal Cannula 2.0 Intake and Output 05/08/17 05/08/17 05/09/17 15:00 23:00 07:00 Intake Total 1280 ml 980 ml Output Total 1700 ml 800 ml Balance -420 ml 180 ml Exam Respiratory: clear to auscultation Cardiovascular: regular rate and rhythm Gastrointestinal: soft Musculoskeletal: nl extremities to inspection Extremities: normal pulses Results Result Diagram: 05/08/17 0807 05/08/17 0807 Results 24 hrs Laboratory Tests Test 05/08/17 20:57 05/09/17 00:18 05/09/17 05:38 05/09/17 13:51 Bedside Glucose 239 H 223 H 119 152 Test 05/09/17 17:34 Bedside Glucose 164 Medications Medications Current Medications Acetaminophen (Tylenol Tab) 650 mg Q6H PRN GTB PAIN AND OR ELEVATED TEMP Last administered on 05/05/17 12:01; Admin Dose 650 MG; Start 04/17/17 at 18:00 Bisacodyl (Dulcolax Supp) 10 mg Q24H [place] Last administered on 05/09/17 17:37; Admin Dose 10 MG; Start 04/17/17 at 18:00 Diphenhydramine HCl (Benadryl) 25 mg Q6H PRN GTB ITCHING Last administered on 06:37; Admin Dose 25 MG; Start 04/17/17 at 18:00 Hydralazine HCl (Apresoline) 50 mg Q8 PRN GTB ELEVATED BLOOD PRESSURE Last administered on 04/18/17 13:18; Admin Dose 50 MG; Start 04/17/17 at 18:00 Multivitamins Therapeutic (Theragran) 1 tab DAILY GTB Last administered on 05/09 09:05; Admin Dose 1 TAB; Start 04/18/17 at 09:00 Miscellaneous Information 1 ea NOTE XX ; Start 04/17/17 at 21:00 Glucose (Glutose) 15 gm Q15M PRN PO DECREASED GLUCOSE; Start 04/17/17 at 21:00 Glucose (Glutose) 22.5 gm Q15M PRN PO DECREASED GLUCOSE; Start 04/17/17 at 21: 00 Dextrose (D50w Syringe) 25 ml Q15M PRN IV DECREASED GLUCOSE Last administered on 04/20/17 17:22; Admin Dose 25 ML; Start 04/17/17 at 21:00 Dextrose (D50w Syringe) 50 ml Q15M PRN IV DECREASED GLUCOSE Last administered on 05/06/17 06:24; Admin Dose 50 ML; Start 04/17/17 at 21:00 Glucagon (Glucagen) 1 mg Q15M PRN IM DECREASED GLUCOSE; Start 04/17/17 at 21:00 Glucose (Glutose) 15 gm Q15M PRN BUCCAL DECREASED GLUCOSE; Start 04/17/17 at 21 :00 Ondansetron HCl (Zofran Inj) 4 mg Q6H PRN IV NAUSEA AND/OR VOMITING; Start at 00:30 Insulin Aspart (Novolog Insulin Pen) (Adult SC Insulin - Mild Algorithm)... Q6 SC Last administered on 05/09/17 17:49; Admin Dose 1 UNIT; Start 04/20/17 at 00:00 Insulin Glargine (Lantus) 14 unit QHS SC Last administered on 05/08/17 21:08; Admin Dose 14 UNIT; Start 04/20/17 at 21:00 Metoprolol Tartrate (Lopressor) 25 mg BID PO Last administered on 04/28/17 08: 14; Admin Dose 25 MG; Start 04/23/17 at 09:00; Status Future Hold Hydralazine HCl (Apresoline) 25 mg Q8 PO Last administered on 05/09/17 13:55; Admin Dose 25 MG; Start 04/22/17 at 22:00 Hydralazine HCl (Apresoline) 10 mg Q4H PRN IV SBP>170; Start 04/22/17 at 22:00 Nitroglycerin (Nitroglycerin (Sl Tab) 0.4 Mg) 1 tab Q5M PRN SL ANGINA; Start at 18:00 Acetaminophen/ Hydrocodone Bitart ([place] (5/325)) 1 tab Q6H PRN PO PAIN LEVEL 4 -7 Last administered on 05/03/17 12:31; Admin Dose 1 TAB; Start 05/03/17 at 03: 30 Acetaminophen (Tylenol Liquid) 650 mg Q4H PRN GTB PAIN AND OR ELEVATED TEMP Last administered on 05/09/17 17:50; Admin Dose 650 MG; Start 05/03/17 at 03:30 Metoclopramide HCl (Reglan) 5 mg TID IV Last administered on 05/09/17 13:54; Admin Dose 5 MG; Start 05/05/17 at 13:00 Amlodipine Besylate (Norvasc) 5 mg DAILY GTB Last administered on 05/08/17 08: 28; Admin Dose 5 MG; Start 05/07/17 at 09:00 Zinc Acetate/ Diphenhydramine (Benadryl 2% Cr) 1 applic Q8 PRN TOP ITCHING Last administered on 05/07/17 12:16; Admin Dose 1 APPLIC; Start 05/07/17 at 11: 00 Lansoprazole (Prevacid) 30 mg BID@18 GTB Last administered on 05/09/17 17: 36; Admin Dose 30 MG; Start 05/08/17 at 18:00 Clonidine HCl (Catapres-Tts 1 Patch) 1 patch Q7D TRANSDERM Last administered on 05/08/17 18:01; Admin Dose 1 PATCH; Start 05/08/17 at 15:00 ABBY RAMOS MD May 09, 2017 19:14
[2017-05-09] MEDS: INSULIN GLARGINE [LANtus] 3 ML PEN SC SCH (21:02)
[2017-05-09] MEDS: DIPHENHYDRAMINE 25 MG CAP GTB PRN (21:41)
[2017-05-10] VITALS (13 sets, daily range): BP systolic 124–140; BP diastolic 59–79; PULSE 75–110; RESP 18–20
[2017-05-10] MEDS: Insulin NOVOLOG SS MILD Algorithm (NPO/TPN/ENTERAL FEEDS) SC SCH ×4 (00:54→17:46)
[2017-05-10] MEDS: ALBUTEROL/IPRATROPIUM (NEB) 3 ML AMP HHN SCH ×4 (01:47→19:29)
[2017-05-10] MEDS: LANSOPRAZOLE 30 MG CAP GTB SCH ×2 (05:58→17:45)
[2017-05-10] MEDS: FUROSEMIDE 20 MG INJ IV SCH ×2 (05:59→17:45)
[2017-05-10 08:17] LABS: BASOPHIL # 0.1 10^3/ul (0.0-0.1); BASOPHILS % 0.9 % (0.0-2.0); EOSINOPHILS % 10.5 % (0.0-7.0); HEMATOCRIT 27.8 % (42.0-52.0); HEMOGLOBIN 8.6 g/dl (14.0-18.0); LYMPHOCYTES # 1.7 10^3/ul (0.8-2.9); LYMPHOCYTES % 17.6 % (15.0-51.0); MEAN CORPUSCULAR HEMOGLOBIN 27.3 pg (29.0-33.0); MEAN CORPUSCULAR HGB CONC 30.9 g/dl (32.0-37.0); MEAN CORPUSCULAR VOLUME 88.3 fl (82.0-101.0); MEAN PLATELET VOLUME 11.4 fl (7.4-10.4); MONOCYTE # 0.7 10^3/ul (0.3-0.9); MONOCYTES % 6.8 % (0.0-11.0); NEUTROPHIL # 6.2 10^3/ul (1.6-7.5); NEUTROPHILS % 63.8 % (39.0-77.0); PLATELET COUNT 230 10^3/UL (140-415); RED BLOOD COUNT 3.15 10^6/ul (4.70-6.10); RED CELL DISTRIBUTION WIDTH 19.9 % (11.5-14.5); WHITE BLOOD COUNT 9.7 10^3/ul (4.8-10.8)
[2017-05-10 08:54] LABS: ALBUMIN 2.8 g/dl (3.3-4.9); ALBUMIN/GLOBULIN RATIO 0.68; BILIRUBIN,INDIRECT 0.2 mg/dl (0-1.1); BILIRUBIN,TOTAL 0.2 mg/dl (0.2-1.3); CALCIUM 8.4 mg/dl (8.4-10.2); CREATININE 2.32 mg/dl (0.61-1.24); POTASSIUM 4.4 mmol/L (3.5-5.1); TOTAL PROTEIN 6.9 g/dl (6.1-8.1)
[2017-05-10] MEDS: METOCLOPRAMIDE 10 MG INJ IV SCH ×3 (09:28→21:34)
[2017-05-10] MEDS: MULTIVITAMINS THERAPEUTIC TAB GTB SCH (09:28)
[2017-05-10] MEDS: AMLODIPINE 5 MG TAB GTB SCH (09:28)
--- NOTE | 2017-05-10 16:11 | CONS ---
Date/Time of Note Date/Time of Note DATE: 05/10/17 TIME: 16:07 Assessment/Plan Assessment/Plan Chief Complaint/Hosp Course 72 y/o with 1.BISI on CKD s/p Hd initiated on 05/06 2.Hypernatremia >improving 3.HTN 4 Ecoli UTI 5 Sepsis due to #4 6 Chronic Afib 7 CVA s/p G tube placement 8 Renal cyst 9 Hyperphosphetemia 10 Leukocytosis> work up per ID Recs - HD tmw - Plan is to do HD twice per week T/Th - HD placement - c/w Clonidine/norvasc/hydralzine/iv lasix - Labs am Problems: Consultation Date/Type/Reason Admit Date/Time Apr 17, 2017 at 16:39 Initial Consult Date 04/18/17 Type of Consultation: nephrology Referring Provider: PORTIA OLIVER MD 24 HR Interval Summary Free Text/Dictation No new complains Exam/Review of Systems Vital Signs Vitals Vital Signs Date Time Temp Pulse Resp B/P Pulse Ox O2 Delivery O2 Flow Rate FiO2 05/10/17 16:05 106 05/10/17 14:00 16 97 21 05/10/17 11:53 98.9 131/60 05/10/17 07:52 Room Air 05/06/17 20:00 2.0 Intake and Output 05/09/17 05/09/17 05/10/17 15:00 23:00 07:00 Intake Total 920 ml 1080 ml Output Total 450 ml 300 ml Balance 470 ml 780 ml Exam Gen:awake,alert Neck:supple CVS:Regular rate and rthym Lungs:clear Abdomen:soft, non tender Ext: no edema Results Result Diagram: 05/10/17 0710 05/10/17 0710 Results 24 hrs Laboratory Tests Test 05/09/17 17:34 05/09/17 20:40 05/10/17 00:33 05/10/17 06:27 Bedside Glucose 164 247 H 181 141 Test 05/10/17 07:10 05/10/17 11:59 White Blood Count 9.7 # Red Blood Count 3.15 L Hemoglobin 8.6 L Hematocrit 27.8 L Mean Corpuscular Volume 88.3 Mean Corpuscular Hemoglobin 27.3 L Mean Corpuscular Hemoglobin Concent 30.9 L Red Cell Distribution Width 19.9 H Platelet Count 230 Mean Platelet Volume 11.4 H Neutrophils % 63.8 Lymphocytes % 17.6 Monocytes % 6.8 Eosinophils % 10.5 H Basophils % 0.9 Nucleated Red Blood Cells % 0.0 Neutrophils # 6.2 Lymphocytes # 1.7 Monocytes # 0.7 Eosinophils # 1.0 H Basophils # 0.1 Nucleated Red Blood Cells # 0.0 Sodium Level 133 L Potassium Level 4.4 Chloride Level 100 Carbon Dioxide Level 29 Anion Gap 8 Blood Urea Nitrogen 49 #H Creatinine 2.32 H Glucose Level 141 Calcium Level 8.4 Total Bilirubin 0.2 Direct Bilirubin 0.00 Indirect Bilirubin 0.2 Aspartate Amino Transf (AST/SGOT) 34 Alanine Aminotransferase (ALT/SGPT) 32 Alkaline Phosphatase 155 H Total Protein 6.9 Albumin 2.8 L Globulin 4.10 H Albumin/Globulin Ratio 0.68 Bedside Glucose 161 Medications Medications Current Medications Acetaminophen (Tylenol Tab) 650 mg Q6H PRN GTB PAIN AND OR ELEVATED TEMP Last administered on 05/05/17 12:01; Admin Dose 650 MG; Start 04/17/17 at 18:00 Bisacodyl (Dulcolax Supp) 10 mg Q24H [place] Last administered on 05/09/17 17:37; Admin Dose 10 MG; Start 04/17/17 at 18:00 Diphenhydramine HCl (Benadryl) 25 mg Q6H PRN GTB ITCHING Last administered on 21:41; Admin Dose 25 MG; Start 04/17/17 at 18:00 Hydralazine HCl (Apresoline) 50 mg Q8 PRN GTB ELEVATED BLOOD PRESSURE Last administered on 04/18/17 13:18; Admin Dose 50 MG; Start 04/17/17 at 18:00 Multivitamins Therapeutic (Theragran) 1 tab DAILY GTB Last administered on 05/10 09:28; Admin Dose 1 TAB; Start 04/18/17 at 09:00 Miscellaneous Information 1 ea NOTE XX ; Start 04/17/17 at 21:00 Glucose (Glutose) 15 gm Q15M PRN PO DECREASED GLUCOSE; Start 04/17/17 at 21:00 Glucose (Glutose) 22.5 gm Q15M PRN PO DECREASED GLUCOSE; Start 04/17/17 at 21: 00 Dextrose (D50w Syringe) 25 ml Q15M PRN IV DECREASED GLUCOSE Last administered on 04/20/17 17:22; Admin Dose 25 ML; Start 04/17/17 at 21:00 Dextrose (D50w Syringe) 50 ml Q15M PRN IV DECREASED GLUCOSE Last administered on 05/06/17 06:24; Admin Dose 50 ML; Start 04/17/17 at 21:00 Glucagon (Glucagen) 1 mg Q15M PRN IM DECREASED GLUCOSE; Start 04/17/17 at 21:00 Glucose (Glutose) 15 gm Q15M PRN BUCCAL DECREASED GLUCOSE; Start 04/17/17 at 21 :00 Ondansetron HCl (Zofran Inj) 4 mg Q6H PRN IV NAUSEA AND/OR VOMITING; Start at 00:30 Insulin Aspart (Novolog Insulin Pen) (Adult SC Insulin - Mild Algorithm)... Q6 SC Last administered on 05/10/17 12:03; Admin Dose 1 UNIT; Start 04/20/17 at 00:00 Insulin Glargine (Lantus) 14 unit QHS SC Last administered on 05/09/17 21:02; Admin Dose 14 UNIT; Start 04/20/17 at 21:00 Metoprolol Tartrate (Lopressor) 25 mg BID PO Last administered on 04/28/17 08: 14; Admin Dose 25 MG; Start 04/23/17 at 09:00; Status Future Hold Hydralazine HCl (Apresoline) 25 mg Q8 PO Last administered on 05/10/17 14:44; Admin Dose 25 MG; Start 04/22/17 at 22:00 Hydralazine HCl (Apresoline) 10 mg Q4H PRN IV SBP>170; Start 04/22/17 at 22:00 Nitroglycerin (Nitroglycerin (Sl Tab) 0.4 Mg) 1 tab Q5M PRN SL ANGINA; Start at 18:00 Acetaminophen/ Hydrocodone Bitart ([place] (5/325)) 1 tab Q6H PRN PO PAIN LEVEL 4 -7 Last administered on 05/03/17 12:31; Admin Dose 1 TAB; Start 05/03/17 at 03: 30 Acetaminophen (Tylenol Liquid) 650 mg Q4H PRN GTB PAIN AND OR ELEVATED TEMP Last administered on 05/09/17 17:50; Admin Dose 650 MG; Start 05/03/17 at 03:30 Metoclopramide HCl (Reglan) 5 mg TID IV Last administered on 05/10/17 12:00; Admin Dose 5 MG; Start 05/05/17 at 13:00 Amlodipine Besylate (Norvasc) 5 mg DAILY GTB Last administered on 05/10/17 09: 28; Admin Dose 5 MG; Start 05/07/17 at 09:00 Zinc Acetate/ Diphenhydramine (Benadryl 2% Cr) 1 applic Q8 PRN TOP ITCHING Last administered on 05/07/17 12:16; Admin Dose 1 APPLIC; Start 05/07/17 at 11: 00 Lansoprazole (Prevacid) 30 mg BID@,18 GTB Last administered on 05/10/17 05: 58; Admin Dose 30 MG; Start 05/08/17 at 18:00 Clonidine HCl (Catapres-Tts 1 Patch) 1 patch Q7D TRANSDERM Last administered on 05/08/17 18:01; Admin Dose 1 PATCH; Start 05/08/17 at 15:00 PORTIA OLIVER MD May 10, 2017 16:11
--- NOTE | 2017-05-10 16:17 | PN ---
Date/Time of Note Date/Time of Note DATE: 05/10/17 TIME: 16:09 Assessment/Plan VTE Prophylaxis VTE Prophylaxis Intervention: SCD's Lines/Catheters IV Catheter Type (from [facility]): DIALYSIS CATH Urinary Cath still in place: Yes Reason Cath still needed: urinary retention Assessment/Plan Chief Complaint/Hosp Course Patient remains hemodynamically stable however had 8 beats of V. tach, sinus rhythm, telemetry monitoring. Assessment/Plan - Acute kidney injury on chronic kidney disease. Continue hemodialysis per renal. Dr. Cheema is following in nephrology consultation. - Status post post urinary tract infection. - History of cerebrovascular accident - Diabetes mellitus. Continue Lantus and NovoLog. - Diastolic congestive heart failure. Continue to monitor intake and output. - Paroxysmal atrial fibrillation, currently in sinus rhythm. - Hypertension. Continue Norvasc. - Hyperlipidemia. Continue statin. - Urinary retention with Flores catheter. - Dysphagia, status post PEG placement - Anemia, continue to monitor hemoglobin and hematocrit. Further recommendations based on clinical course. Plan of care discussed with Dr. Patel Problems: Exam/Review of Systems Vital Signs Vitals Vital Signs Date Time Temp Pulse Resp B/P Pulse Ox O2 Delivery O2 Flow Rate FiO2 05/10/17 16:05 106 05/10/17 14:00 16 97 21 05/10/17 11:53 98.9 131/60 05/10/17 07:52 Room Air 05/06/17 20:00 2.0 Intake and Output 05/09/17 05/09/17 05/10/17 15:00 23:00 07:00 Intake Total 920 ml 1080 ml Output Total 450 ml 300 ml Balance 470 ml 780 ml Exam Constitutional: alert Neck: supple Respiratory: normal air movement Cardiovascular: regular rate and rhythm Gastrointestinal: other, soft Extremities: normal pulses (Tube) Additional Comments Right IJ permacath Results Result Diagram: 05/10/17 0710 05/10/17 0710 Results 24 hrs Laboratory Tests Test 05/09/17 17:34 05/09/17 20:40 05/10/17 00:33 05/10/17 06:27 Bedside Glucose 164 247 H 181 141 Test 05/10/17 07:10 05/10/17 11:59 White Blood Count 9.7 # Red Blood Count 3.15 L Hemoglobin 8.6 L Hematocrit 27.8 L Mean Corpuscular Volume 88.3 Mean Corpuscular Hemoglobin 27.3 L Mean Corpuscular Hemoglobin Concent 30.9 L Red Cell Distribution Width 19.9 H Platelet Count 230 Mean Platelet Volume 11.4 H Neutrophils % 63.8 Lymphocytes % 17.6 Monocytes % 6.8 Eosinophils % 10.5 H Basophils % 0.9 Nucleated Red Blood Cells % 0.0 Neutrophils # 6.2 Lymphocytes # 1.7 Monocytes # 0.7 Eosinophils # 1.0 H Basophils # 0.1 Nucleated Red Blood Cells # 0.0 Sodium Level 133 L Potassium Level 4.4 Chloride Level 100 Carbon Dioxide Level 29 Anion Gap 8 Blood Urea Nitrogen 49 #H Creatinine 2.32 H Glucose Level 141 Calcium Level 8.4 Total Bilirubin 0.2 Direct Bilirubin 0.00 Indirect Bilirubin 0.2 Aspartate Amino Transf (AST/SGOT) 34 Alanine Aminotransferase (ALT/SGPT) 32 Alkaline Phosphatase 155 H Total Protein 6.9 Albumin 2.8 L Globulin 4.10 H Albumin/Globulin Ratio 0.68 Bedside Glucose 161 Medications Medications Current Medications Acetaminophen (Tylenol Tab) 650 mg Q6H PRN GTB PAIN AND OR ELEVATED TEMP Last administered on 05/05/17 12:01; Admin Dose 650 MG; Start 04/17/17 at 18:00 Bisacodyl (Dulcolax Supp) 10 mg Q24H [place] Last administered on 05/09/17 17:37; Admin Dose 10 MG; Start 04/17/17 at 18:00 Diphenhydramine HCl (Benadryl) 25 mg Q6H PRN GTB ITCHING Last administered on 21:41; Admin Dose 25 MG; Start 04/17/17 at 18:00 Hydralazine HCl (Apresoline) 50 mg Q8 PRN GTB ELEVATED BLOOD PRESSURE Last administered on 04/18/17 13:18; Admin Dose 50 MG; Start 04/17/17 at 18:00 Multivitamins Therapeutic (Theragran) 1 tab DAILY GTB Last administered on 05/10 09:28; Admin Dose 1 TAB; Start 04/18/17 at 09:00 Miscellaneous Information 1 ea NOTE XX ; Start 04/17/17 at 21:00 Glucose (Glutose) 15 gm Q15M PRN PO DECREASED GLUCOSE; Start 04/17/17 at 21:00 Glucose (Glutose) 22.5 gm Q15M PRN PO DECREASED GLUCOSE; Start 04/17/17 at 21: 00 Dextrose (D50w Syringe) 25 ml Q15M PRN IV DECREASED GLUCOSE Last administered on 04/20/17 17:22; Admin Dose 25 ML; Start 04/17/17 at 21:00 Dextrose (D50w Syringe) 50 ml Q15M PRN IV DECREASED GLUCOSE Last administered on 05/06/17 06:24; Admin Dose 50 ML; Start 04/17/17 at 21:00 Glucagon (Glucagen) 1 mg Q15M PRN IM DECREASED GLUCOSE; Start 04/17/17 at 21:00 Glucose (Glutose) 15 gm Q15M PRN BUCCAL DECREASED GLUCOSE; Start 04/17/17 at 21 :00 Ondansetron HCl (Zofran Inj) 4 mg Q6H PRN IV NAUSEA AND/OR VOMITING; Start at 00:30 Insulin Aspart (Novolog Insulin Pen) (Adult SC Insulin - Mild Algorithm)... Q6 [place] Last administered on 05/10/17 12:03; Admin Dose 1 UNIT; Start 04/20/17 at 00:00 Insulin Glargine (Lantus) 14 unit QHS SC Last administered on 05/09/17 21:02; Admin Dose 14 UNIT; Start 04/20/17 at 21:00 Metoprolol Tartrate (Lopressor) 25 mg BID PO Last administered on 04/28/17 08: 14; Admin Dose 25 MG; Start 04/23/17 at 09:00; Status Future Hold Hydralazine HCl (Apresoline) 25 mg Q8 PO Last administered on 05/10/17 14:44; Admin Dose 25 MG; Start 04/22/17 at 22:00 Hydralazine HCl (Apresoline) 10 mg Q4H PRN IV SBP>170; Start 04/22/17 at 22:00 Nitroglycerin (Nitroglycerin (Sl Tab) 0.4 Mg) 1 tab Q5M PRN SL ANGINA; Start at 18:00 Acetaminophen/ Hydrocodone Bitart ([place] (5/325)) 1 tab Q6H PRN PO PAIN LEVEL 4 -7 Last administered on 05/03/17 12:31; Admin Dose 1 TAB; Start 05/03/17 at 03: 30 Acetaminophen (Tylenol Liquid) 650 mg Q4H PRN GTB PAIN AND OR ELEVATED TEMP Last administered on 05/09/17 17:50; Admin Dose 650 MG; Start 05/03/17 at 03:30 Metoclopramide HCl (Reglan) 5 mg TID IV Last administered on 05/10/17 12:00; Admin Dose 5 MG; Start 05/05/17 at 13:00 Amlodipine Besylate (Norvasc) 5 mg DAILY GTB Last administered on 05/10/17 09: 28; Admin Dose 5 MG; Start 05/07/17 at 09:00 Zinc Acetate/ Diphenhydramine (Benadryl 2% Cr) 1 applic Q8 PRN TOP ITCHING Last administered on 05/07/17 12:16; Admin Dose 1 APPLIC; Start 05/07/17 at 11: 00 Lansoprazole (Prevacid) 30 mg BID@06,18 GTB Last administered on 05/10/17 05: 58; Admin Dose 30 MG; Start 05/08/17 at 18:00 Clonidine HCl (Catapres-Tts 1 Patch) 1 patch Q7D TRANSDERM Last administered on 05/08/17 18:01; Admin Dose 1 PATCH; Start 05/08/17 at 15:00 GEOVANY IBARRA May 10, 2017 16:17
[2017-05-10] MEDS: BISACODYL 10 MG SUPP PR SCH (17:30)
[2017-05-10] MEDS: INSULIN GLARGINE [LANtus] 3 ML PEN SC SCH (21:47)
[2017-05-11] VITALS (16 sets, daily range): BP systolic 90–141; BP diastolic 50–73; PULSE 79–91; RESP 18–20
[2017-05-11] MEDS: Insulin NOVOLOG SS MILD Algorithm (NPO/TPN/ENTERAL FEEDS) SC SCH ×4 (01:29→17:06)
[2017-05-11] MEDS: ALBUTEROL/IPRATROPIUM (NEB) 3 ML AMP HHN SCH ×4 (02:00→19:37)
[2017-05-11] MEDS: LANSOPRAZOLE 30 MG CAP GTB SCH ×2 (06:04→17:04)
[2017-05-11] MEDS: FUROSEMIDE 20 MG INJ IV SCH ×2 (06:05→17:04)
[2017-05-11 08:11] LABS: BASOPHIL # 0.1 10^3/ul (0.0-0.1); BASOPHILS % 0.8 % (0.0-2.0); EOSINOPHILS % 9.9 % (0.0-7.0); HEMATOCRIT 28.9 % (42.0-52.0); HEMOGLOBIN 9.3 g/dl (14.0-18.0); LYMPHOCYTES # 1.5 10^3/ul (0.8-2.9); LYMPHOCYTES % 14.9 % (15.0-51.0); MEAN CORPUSCULAR HEMOGLOBIN 28.3 pg (29.0-33.0); MEAN CORPUSCULAR HGB CONC 32.2 g/dl (32.0-37.0); MEAN CORPUSCULAR VOLUME 87.8 fl (82.0-101.0); MEAN PLATELET VOLUME 11.5 fl (7.4-10.4); MONOCYTE # 0.8 10^3/ul (0.3-0.9); MONOCYTES % 7.3 % (0.0-11.0); NEUTROPHIL # 6.8 10^3/ul (1.6-7.5); NEUTROPHILS % 66.8 % (39.0-77.0); PLATELET COUNT 288 10^3/UL (140-415); RED BLOOD COUNT 3.29 10^6/ul (4.70-6.10); RED CELL DISTRIBUTION WIDTH 19.9 % (11.5-14.5); WHITE BLOOD COUNT 10.2 10^3/ul (4.8-10.8)
[2017-05-11] MEDS ORDERED: HEPARIN 1000 UNITS/ML 10 ML INJ CATHETER SCH (09:00)
[2017-05-11] MEDS ORDERED: ALBUMIN HUMAN 25% 100 ML IV PRN (09:00)
[2017-05-11 09:33] LABS: CALCIUM 8.5 mg/dl (8.4-10.2); CREATININE 2.56 mg/dl (0.61-1.24); POTASSIUM 4.9 mmol/L (3.5-5.1)
[2017-05-11] MEDS: METOCLOPRAMIDE 10 MG INJ IV SCH ×3 (09:42→21:24)
[2017-05-11] MEDS: AMLODIPINE 5 MG TAB GTB SCH (09:42)
[2017-05-11] MEDS: MULTIVITAMINS THERAPEUTIC TAB GTB SCH (09:42)
--- NOTE | 2017-05-11 12:46 | CONS ---
Date/Time of Note Date/Time of Note DATE: 05/11/17 TIME: 12:44 Assessment/Plan Assessment/Plan Chief Complaint/Hosp Course 72 y/o with 1.BISI on CKD s/p Hd initiated on 05/06 2.Hypernatremia >improving 3.HTN 4 Ecoli UTI 5 Sepsis due to #4 6 Chronic Afib 7 CVA s/p G tube placement 8 Renal cyst 9 Hyperphosphetemia 10 Leukocytosis> work up per ID Recs - HD today with no UF - Plan is to do HD twice per week T/Th - HD placement - Hold BP meds before HD - Labs am Problems: Consultation Date/Type/Reason Admit Date/Time Apr 17, 2017 at 16:39 Initial Consult Date 04/18/17 Type of Consultation: nephrology Referring Provider: PORTIA OLIVER MD 24 HR Interval Summary Free Text/Dictation Some leg pain Due for HD today Exam/Review of Systems Vital Signs Vitals Vital Signs Date Time Temp Pulse Resp B/P Pulse Ox O2 Delivery O2 Flow Rate FiO2 05/11/17 12:12 80 05/11/17 11:48 98.6 18 124/61 99 05/11/17 08:15 Room Air 05/11/17 08:13 21 Intake and Output 05/10/17 05/10/17 05/11/17 15:00 23:00 07:00 Intake Total 1080 ml 1080 ml Output Total 700 ml 900 ml Balance 380 ml 180 ml Exam Gen:awake,alert Neck:supple CVS:Regular rate and rthym Lungs:clear Abdomen:soft, non tender Ext: no edema Results Result Diagram: 05/11/17 0730 05/11/17 0730 Results 24 hrs Laboratory Tests Test 05/10/17 17:42 05/10/17 21:33 05/11/17 01:25 05/11/17 06:03 Bedside Glucose 198 168 165 115 Test 05/11/17 07:30 White Blood Count 10.2 Red Blood Count 3.29 L Hemoglobin 9.3 L Hematocrit 28.9 L Mean Corpuscular Volume 87.8 Mean Corpuscular Hemoglobin 28.3 L Mean Corpuscular Hemoglobin Concent 32.2 Red Cell Distribution Width 19.9 H Platelet Count 288 # Mean Platelet Volume 11.5 H Neutrophils % 66.8 Lymphocytes % 14.9 L Monocytes % 7.3 Eosinophils % 9.9 H Basophils % 0.8 Nucleated Red Blood Cells % 0.0 Neutrophils # 6.8 Lymphocytes # 1.5 Monocytes # 0.8 Eosinophils # 1.0 H Basophils # 0.1 Nucleated Red Blood Cells # 0.0 Sodium Level 135 Potassium Level 4.9 Chloride Level 99 Carbon Dioxide Level 30 Anion Gap 11 Blood Urea Nitrogen 66 H Creatinine 2.56 H Glucose Level 120 Calcium Level 8.5 Medications Medications Current Medications Acetaminophen (Tylenol Tab) 650 mg Q6H PRN GTB PAIN AND OR ELEVATED TEMP Last administered on 05/05/17 12:01; Admin Dose 650 MG; Start 04/17/17 at 18:00 Bisacodyl (Dulcolax Supp) 10 mg Q24H [place] Last administered on 05/09/17 17:37; Admin Dose 10 MG; Start 04/17/17 at 18:00 Diphenhydramine HCl (Benadryl) 25 mg Q6H PRN GTB ITCHING Last administered on 21:41; Admin Dose 25 MG; Start 04/17/17 at 18:00 Hydralazine HCl (Apresoline) 50 mg Q8 PRN GTB ELEVATED BLOOD PRESSURE Last administered on 04/18/17 13:18; Admin Dose 50 MG; Start 04/17/17 at 18:00 Multivitamins Therapeutic (Theragran) 1 tab DAILY GTB Last administered on 05/11 09:42; Admin Dose 1 TAB; Start 04/18/17 at 09:00 Miscellaneous Information 1 ea NOTE XX ; Start 04/17/17 at 21:00 Glucose (Glutose) 15 gm Q15M PRN PO DECREASED GLUCOSE; Start 04/17/17 at 21:00 Glucose (Glutose) 22.5 gm Q15M PRN PO DECREASED GLUCOSE; Start 04/17/17 at 21: 00 Dextrose (D50w Syringe) 25 ml Q15M PRN IV DECREASED GLUCOSE Last administered on 04/20/17 17:22; Admin Dose 25 ML; Start 04/17/17 at 21:00 Dextrose (D50w Syringe) 50 ml Q15M PRN IV DECREASED GLUCOSE Last administered on 05/06/17 06:24; Admin Dose 50 ML; Start 04/17/17 at 21:00 Glucagon (Glucagen) 1 mg Q15M PRN IM DECREASED GLUCOSE; Start 04/17/17 at 21:00 Glucose (Glutose) 15 gm Q15M PRN BUCCAL DECREASED GLUCOSE; Start 04/17/17 at 21 :00 Ondansetron HCl (Zofran Inj) 4 mg Q6H PRN IV NAUSEA AND/OR VOMITING; Start at 00:30 Insulin Aspart (Novolog Insulin Pen) (Adult SC Insulin - Mild Algorithm)... Q6 [place] Last administered on 05/11/17 12:16; Admin Dose 2 UNIT; Start 04/20/17 at 00:00 Insulin Glargine (Lantus) 14 unit QHS SC Last administered on 05/10/17 21:47; Admin Dose 14 UNIT; Start 04/20/17 at 21:00 Metoprolol Tartrate (Lopressor) 25 mg BID PO Last administered on 04/28/17 08: 14; Admin Dose 25 MG; Start 04/23/17 at 09:00; Status Future Hold Hydralazine HCl (Apresoline) 25 mg Q8 PO Last administered on 05/11/17 06:04; Admin Dose 25 MG; Start 04/22/17 at 22:00 Hydralazine HCl (Apresoline) 10 mg Q4H PRN IV SBP>170; Start 04/22/17 at 22:00 Nitroglycerin (Nitroglycerin (Sl Tab) 0.4 Mg) 1 tab Q5M PRN SL ANGINA; Start at 18:00 Acetaminophen/ Hydrocodone Bitart ([place] (5/325)) 1 tab Q6H PRN PO PAIN LEVEL 4 -7 Last administered on 05/03/17 12:31; Admin Dose 1 TAB; Start 05/03/17 at 03: 30 Acetaminophen (Tylenol Liquid) 650 mg Q4H PRN GTB PAIN AND OR ELEVATED TEMP Last administered on 05/09/17 17:50; Admin Dose 650 MG; Start 05/03/17 at 03:30 Metoclopramide HCl (Reglan) 5 mg TID IV Last administered on 05/11/17 12:15; Admin Dose 5 MG; Start 05/05/17 at 13:00 Amlodipine Besylate (Norvasc) 5 mg DAILY GTB Last administered on 05/11/17 09: 42; Admin Dose 5 MG; Start 05/07/17 at 09:00 Zinc Acetate/ Diphenhydramine (Benadryl 2% Cr) 1 applic Q8 PRN TOP ITCHING Last administered on 05/07/17 12:16; Admin Dose 1 APPLIC; Start 05/07/17 at 11: 00 Lansoprazole (Prevacid) 30 mg BID@06,18 GTB Last administered on 05/11/17 06: 04; Admin Dose 30 MG; Start 05/08/17 at 18:00 Clonidine HCl (Catapres-Tts 1 Patch) 1 patch Q7D TRANSDERM Last administered on 05/08/17 18:01; Admin Dose 1 PATCH; Start 05/08/17 at 15:00 PORTIA OLIVER MD May 11, 2017 12:46
[2017-05-11] MEDS: BISACODYL 10 MG SUPP PR SCH (17:04)
--- NOTE | 2017-05-11 19:00 | PN ---
Date/Time of Note Date/Time of Note DATE: 05/11/17 TIME: 18:59 Assessment/Plan VTE Prophylaxis VTE Prophylaxis Intervention: SCD's Lines/Catheters [facility] Urinary Cath still in place: Yes Reason Cath still needed: urinary retention Assessment/Plan Chief Complaint/Hosp Course No acute events overnight, remains afebrile and hemodynamically stable, pending shelter facility placement Assessment/Plan - Acute kidney injury on chronic kidney disease. Continue hemodialysis per renal. Dr. Cheema is following in nephrology consultation. - Status post post urinary tract infection. - History of cerebrovascular accident - Diabetes mellitus. Continue Lantus and NovoLog. - Diastolic congestive heart failure. Continue to monitor intake and output. - Paroxysmal atrial fibrillation, currently in sinus rhythm. - Hypertension. Continue Norvasc. - Hyperlipidemia. Continue statin. - Urinary retention with Flores catheter. - Dysphagia, status post PEG placement - Anemia, continue to monitor hemoglobin and hematocrit. Further recommendations based on clinical course. Plan of care discussed with Dr. Patel Problems: Exam/Review of Systems Vital Signs Vitals Vital Signs Date Time Temp Pulse Resp B/P Pulse Ox O2 Delivery O2 Flow Rate FiO2 05/11/17 16:39 Room Air 05/11/17 16:23 91 05/11/17 15:52 98.0 18 109/57 96 05/11/17 14:06 21 Intake and Output 05/10/17 05/10/17 05/11/17 15:00 23:00 07:00 Intake Total 1080 ml 1080 ml Output Total 700 ml 900 ml Balance 380 ml 180 ml Exam Constitutional: alert Neck: supple Respiratory: normal air movement Cardiovascular: regular rate and rhythm Gastrointestinal: other, soft Extremities: normal pulses (Tube) Additional Comments Right IJ permacath Results Result Diagram: 05/11/17 0730 05/11/17 0730 Results 24 hrs Laboratory Tests Test 05/10/17 21:33 05/11/17 01:25 05/11/17 06:03 05/11/17 07:30 Bedside Glucose 168 165 115 White Blood Count 10.2 Red Blood Count 3.29 L Hemoglobin 9.3 L Hematocrit 28.9 L Mean Corpuscular Volume 87.8 Mean Corpuscular Hemoglobin 28.3 L Mean Corpuscular Hemoglobin Concent 32.2 Red Cell Distribution Width 19.9 H Platelet Count 288 # Mean Platelet Volume 11.5 H Neutrophils % 66.8 Lymphocytes % 14.9 L Monocytes % 7.3 Eosinophils % 9.9 H Basophils % 0.8 Nucleated Red Blood Cells % 0.0 Neutrophils # 6.8 Lymphocytes # 1.5 Monocytes # 0.8 Eosinophils # 1.0 H Basophils # 0.1 Nucleated Red Blood Cells # 0.0 Sodium Level 135 Potassium Level 4.9 Chloride Level 99 Carbon Dioxide Level 30 Anion Gap 11 Blood Urea Nitrogen 66 H Creatinine 2.56 H Glucose Level 120 Calcium Level 8.5 Test 05/11/17 12:13 05/11/17 16:57 Bedside Glucose 216 171 Medications Medications Current Medications Acetaminophen (Tylenol Tab) 650 mg Q6H PRN GTB PAIN AND OR ELEVATED TEMP Last administered on 05/05/17 12:01; Admin Dose 650 MG; Start 04/17/17 at 18:00 Bisacodyl (Dulcolax Supp) 10 mg Q24H [place] Last administered on 05/09/17 17:37; Admin Dose 10 MG; Start 04/17/17 at 18:00 Diphenhydramine HCl (Benadryl) 25 mg Q6H PRN GTB ITCHING Last administered on 21:41; Admin Dose 25 MG; Start 04/17/17 at 18:00 Hydralazine HCl (Apresoline) 50 mg Q8 PRN GTB ELEVATED BLOOD PRESSURE Last administered on 04/18/17 13:18; Admin Dose 50 MG; Start 04/17/17 at 18:00 Multivitamins Therapeutic (Theragran) 1 tab DAILY GTB Last administered on 05/11 09:42; Admin Dose 1 TAB; Start 04/18/17 at 09:00 Miscellaneous Information 1 ea NOTE XX ; Start 04/17/17 at 21:00 Glucose (Glutose) 15 gm Q15M PRN PO DECREASED GLUCOSE; Start 04/17/17 at 21:00 Glucose (Glutose) 22.5 gm Q15M PRN PO DECREASED GLUCOSE; Start 04/17/17 at 21: 00 Dextrose (D50w Syringe) 25 ml Q15M PRN IV DECREASED GLUCOSE Last administered on 04/20/17 17:22; Admin Dose 25 ML; Start 04/17/17 at 21:00 Dextrose (D50w Syringe) 50 ml Q15M PRN IV DECREASED GLUCOSE Last administered on 05/06/17 06:24; Admin Dose 50 ML; Start 04/17/17 at 21:00 Glucagon (Glucagen) 1 mg Q15M PRN IM DECREASED GLUCOSE; Start 04/17/17 at 21:00 Glucose (Glutose) 15 gm Q15M PRN BUCCAL DECREASED GLUCOSE; Start 04/17/17 at 21 :00 Ondansetron HCl (Zofran Inj) 4 mg Q6H PRN IV NAUSEA AND/OR VOMITING; Start at 00:30 Insulin Aspart (Novolog Insulin Pen) (Adult SC Insulin - Mild Algorithm)... Q6 [place] Last administered on 05/11/17 17:06; Admin Dose 1 UNIT; Start 04/20/17 at 00:00 Insulin Glargine (Lantus) 14 unit QHS [place] Last administered on 05/10/17 21:47; Admin Dose 14 UNIT; Start 04/20/17 at 21:00 Metoprolol Tartrate (Lopressor) 25 mg BID PO Last administered on 04/28/17 08: 14; Admin Dose 25 MG; Start 04/23/17 at 09:00; Status Future Hold Hydralazine HCl (Apresoline) 10 mg Q4H PRN IV SBP>170; Start 04/22/17 at 22:00 Nitroglycerin (Nitroglycerin (Sl Tab) 0.4 Mg) 1 tab Q5M PRN SL ANGINA; Start at 18:00 Acetaminophen/ Hydrocodone Bitart ([place] (5/325)) 1 tab Q6H PRN PO PAIN LEVEL 4 -7 Last administered on 05/03/17 12:31; Admin Dose 1 TAB; Start 05/03/17 at 03: 30 Acetaminophen (Tylenol Liquid) 650 mg Q4H PRN GTB PAIN AND OR ELEVATED TEMP Last administered on 05/09/17 17:50; Admin Dose 650 MG; Start 05/03/17 at 03:30 Metoclopramide HCl (Reglan) 5 mg TID IV Last administered on 05/11/17 12:15; Admin Dose 5 MG; Start 05/05/17 at 13:00 Amlodipine Besylate (Norvasc) 5 mg DAILY GTB Last administered on 05/11/17 09: 42; Admin Dose 5 MG; Start 05/07/17 at 09:00 Zinc Acetate/ Diphenhydramine (Benadryl 2% Cr) 1 applic Q8 PRN TOP ITCHING Last administered on 05/07/17 12:16; Admin Dose 1 APPLIC; Start 05/07/17 at 11: 00 Lansoprazole (Prevacid) 30 mg BID@06,18 GTB Last administered on 05/11/17 17: 04; Admin Dose 30 MG; Start 05/08/17 at 18:00 Clonidine HCl (Catapres-Tts 1 Patch) 1 patch Q7D TRANSDERM Last administered on 05/08/17 18:01; Admin Dose 1 PATCH; Start 05/08/17 at 15:00 GEOVANY IBARRA May 11, 2017 19:00
[2017-05-11] MEDS: INSULIN GLARGINE [LANtus] 3 ML PEN SC SCH (21:30)
[2017-05-12] MEDS: Insulin NOVOLOG SS MILD Algorithm (NPO/TPN/ENTERAL FEEDS) SC SCH ×4 (00:02→17:55)
[2017-05-12 00:55] VITALS: BP 150/67; PULSE 88; RESP 18
[2017-05-12] MEDS: ALBUTEROL/IPRATROPIUM (NEB) 3 ML AMP HHN SCH ×4 (02:53→19:46)
[2017-05-12] MEDS: LANSOPRAZOLE 30 MG CAP GTB SCH ×2 (05:14→17:56)
[2017-05-12] MEDS: FUROSEMIDE 20 MG INJ IV SCH ×2 (05:15→17:58)
[2017-05-12 05:39] LABS: CALCIUM 8.6 mg/dl (8.4-10.2); CREATININE 1.84 mg/dl (0.61-1.24); POTASSIUM 4.7 mmol/L (3.5-5.1)
[2017-05-12 05:51] VITALS: BP 139/64; PULSE 84; RESP 18
[2017-05-12 07:36] VITALS: BP 153/75; RESP 20
[2017-05-12] MEDS: METOCLOPRAMIDE 10 MG INJ IV SCH ×3 (09:16→20:31)
[2017-05-12] MEDS: AMLODIPINE 5 MG TAB GTB SCH (09:17)
[2017-05-12] MEDS: MULTIVITAMINS THERAPEUTIC TAB GTB SCH (09:17)
--- NOTE | 2017-05-12 16:23 | CONS ---
Date/Time of Note Date/Time of Note DATE: 05/12/17 TIME: 16:20 Assessment/Plan Assessment/Plan Chief Complaint/Hosp Course IMP: 1.HTN-reasonable control 2.H/O PAF-Remains in SR at this time by exam 3.renal failure 4.dysphagia 5. AMS 6. Heart [id number] HR.improved with holding BB overall some intermittent recurrence 7. Chest pain-resolved/negative troponin/no change on serial ecg 8. Occasional PVC's 9. CHF-diastolic acute on chronic 10.UTI 11.anemia REcc: -Tele -serial ecg's -follow rhythm closely -Continue norvasc/clondine TTS and follow BP closely -Continue to Hold BB given wenkebach -Follow volume status closely with HD today Problems: Consultation Date/Type/Reason Admit Date/Time Apr 17, 2017 at 16:39 Initial Consult Date 04/18/17 Type of Consultation: cardiology Reason for Consultation AF Referring Provider: PORTIA OLIVER MD Exam/Review of Systems Vital Signs Vitals Vital Signs Date Time Temp Pulse Resp B/P Pulse Ox O2 Delivery O2 Flow Rate FiO2 05/12/17 14:07 83 18 95 21 05/12/17 07:36 98.9 153/75 05/12/17 05:51 Room Air Intake and Output 05/11/17 05/11/17 05/12/17 15:00 23:00 07:00 Intake Total 1580 ml 575 ml Output Total 1500 ml 500 ml Balance 80 ml 75 ml Exam Review of Systems: CONSTITUTIONAL: No fevers, chills. PULMONARY: No sob CARDIOVASCULAR: No chest pain/palpitations GASTROINTESTINAL: No nausea/vomiting. GENITOURINARY: No hematuria/dysuria. MUSCULOSKELETAL: No myagias/arthalgias. PSYCHIATRIC: The patient denies depression. NEUROLOGIC: lethargic Constitutional: other (sleeping) Psych: no complaints Head: normocephalic ENMT: mucosa pink and moist Neck: jvd (9 cm water), supple Respiratory: diminished breath sounds Cardiovascular: regular rate and rhythm Gastrointestinal: non-tender, soft Musculoskeletal: muscle weakness (generalized) Extremities: edema (none) Neurological: lethargic Results Result Diagram: 05/11/17 0730 05/12/17 0442 Results 24 hrs Laboratory Tests Test 05/11/17 16:57 05/11/17 20:05 05/11/17 23:54 05/12/17 04:42 Bedside Glucose 171 116 195 Sodium Level 136 Potassium Level 4.7 Chloride Level 101 Carbon Dioxide Level 31 Anion Gap 9 Blood Urea Nitrogen 43 #H Creatinine 1.84 H Glucose Level 125 Calcium Level 8.6 Test 05/12/17 05:17 05/12/17 12:28 Bedside Glucose 108 204 Medications Medications Current Medications Acetaminophen (Tylenol Tab) 650 mg Q6H PRN GTB PAIN AND OR ELEVATED TEMP Last administered on 05/05/17 12:01; Admin Dose 650 MG; Start 04/17/17 at 18:00 Bisacodyl (Dulcolax Supp) 10 mg Q24H [place] Last administered on 05/09/17 17:37; Admin Dose 10 MG; Start 04/17/17 at 18:00 Diphenhydramine HCl (Benadryl) 25 mg Q6H PRN GTB ITCHING Last administered on 21:41; Admin Dose 25 MG; Start 04/17/17 at 18:00 Hydralazine HCl (Apresoline) 50 mg Q8 PRN GTB ELEVATED BLOOD PRESSURE Last administered on 04/18/17 13:18; Admin Dose 50 MG; Start 04/17/17 at 18:00 Multivitamins Therapeutic (Theragran) 1 tab DAILY GTB Last administered on 05/12 09:17; Admin Dose 1 TAB; Start 04/18/17 at 09:00 Miscellaneous Information 1 ea NOTE XX ; Start 04/17/17 at 21:00 Glucose (Glutose) 15 gm Q15M PRN PO DECREASED GLUCOSE; Start 04/17/17 at 21:00 Glucose (Glutose) 22.5 gm Q15M PRN PO DECREASED GLUCOSE; Start 04/17/17 at 21: 00 Dextrose (D50w Syringe) 25 ml Q15M PRN IV DECREASED GLUCOSE Last administered on 04/20/17 17:22; Admin Dose 25 ML; Start 04/17/17 at 21:00 Dextrose (D50w Syringe) 50 ml Q15M PRN IV DECREASED GLUCOSE Last administered on 05/06/17 06:24; Admin Dose 50 ML; Start 04/17/17 at 21:00 Glucagon (Glucagen) 1 mg Q15M PRN IM DECREASED GLUCOSE; Start 04/17/17 at 21:00 Glucose (Glutose) 15 gm Q15M PRN BUCCAL DECREASED GLUCOSE; Start 04/17/17 at 21 :00 Ondansetron HCl (Zofran Inj) 4 mg Q6H PRN IV NAUSEA AND/OR VOMITING; Start at 00:30 Insulin Aspart (Novolog Insulin Pen) (Adult SC Insulin - Mild Algorithm)... Q6 [place] Last administered on 05/12/17 12:35; Admin Dose 2 UNIT; Start 04/20/17 at 00:00 Insulin Glargine (Lantus) 14 unit QHS [place] Last administered on 05/11/17 21:30; Admin Dose 14 UNIT; Start 04/20/17 at 21:00 Metoprolol Tartrate (Lopressor) 25 mg BID PO Last administered on 04/28/17 08: 14; Admin Dose 25 MG; Start 04/23/17 at 09:00; Status Future Hold Hydralazine HCl (Apresoline) 10 mg Q4H PRN IV SBP>170; Start 04/22/17 at 22:00 Nitroglycerin (Nitroglycerin (Sl Tab) 0.4 Mg) 1 tab Q5M PRN SL ANGINA; Start at 18:00 Acetaminophen/ Hydrocodone Bitart ([place] (5/325)) 1 tab Q6H PRN PO PAIN LEVEL 4 -7 Last administered on 05/03/17 12:31; Admin Dose 1 TAB; Start 05/03/17 at 03: 30 Acetaminophen (Tylenol Liquid) 650 mg Q4H PRN GTB PAIN AND OR ELEVATED TEMP Last administered on 05/09/17 17:50; Admin Dose 650 MG; Start 05/03/17 at 03:30 Metoclopramide HCl (Reglan) 5 mg TID IV Last administered on 05/12/17 12:35; Admin Dose 5 MG; Start 05/05/17 at 13:00 Amlodipine Besylate (Norvasc) 5 mg DAILY GTB Last administered on 05/12/17 09: 17; Admin Dose 5 MG; Start 05/07/17 at 09:00 Zinc Acetate/ Diphenhydramine (Benadryl 2% Cr) 1 applic Q8 PRN TOP ITCHING Last administered on 05/07/17 12:16; Admin Dose 1 APPLIC; Start 05/07/17 at 11: 00 Lansoprazole (Prevacid) 30 mg BID@06,18 GTB Last administered on 05/12/17 05: 14; Admin Dose 30 MG; Start 05/08/17 at 18:00 Clonidine HCl (Catapres-Tts 1 Patch) 1 patch Q7D TRANSDERM Last administered on 05/08/17 18:01; Admin Dose 1 PATCH; Start 05/08/17 at 15:00 LESLI SHEA May 12, 2017 16:23
[2017-05-12 16:25] VITALS: Ht 170.2 cm; Wt 50.3 kg
--- NOTE | 2017-05-12 17:06 | CONS ---
Date/Time of Note Date/Time of Note DATE: 05/12/17 TIME: 17:04 Assessment/Plan Assessment/Plan Chief Complaint/Hosp Course 72 y/o with 1.BISI on CKD s/p Hd initiated on 05/06 2.Hypernatremia >improving 3.HTN 4 Ecoli UTI 5 Sepsis due to #4 6 Chronic Afib 7 CVA s/p G tube placement 8 Renal cyst 9 Hyperphosphetemia 10 Leukocytosis> work up per ID Recs - Plan is to do HD twice per week T/Th - HD placement - Hold BP meds before HD - Labs am Problems: Consultation Date/Type/Reason Admit Date/Time Apr 17, 2017 at 16:39 Initial Consult Date 04/18/17 Type of Consultation: cardiology Referring Provider: PORTIA OLIVER MD 24 HR Interval Summary Free Text/Dictation No acute events s/p HD yesterday with removal of 500 ml Exam/Review of Systems Vital Signs Vitals Vital Signs Date Time Temp Pulse Resp B/P Pulse Ox O2 Delivery O2 Flow Rate FiO2 05/12/17 14:07 83 18 95 21 05/12/17 07:36 98.9 153/75 05/12/17 05:51 Room Air Intake and Output 05/11/17 05/11/17 05/12/17 15:00 23:00 07:00 Intake Total 1580 ml 575 ml Output Total 1500 ml 500 ml Balance 80 ml 75 ml Exam Gen:awake,alert, covers his face with sheet Neck:supple CVS:Regular rate and rthym Lungs:clear Abdomen:soft, non tender Ext: no edema Results Result Diagram: 05/11/17 0730 05/12/17 0442 Results 24 hrs Laboratory Tests Test 05/11/17 20:05 05/11/17 23:54 05/12/17 04:42 05/12/17 05:17 Bedside Glucose 116 195 108 Sodium Level 136 Potassium Level 4.7 Chloride Level 101 Carbon Dioxide Level 31 Anion Gap 9 Blood Urea Nitrogen 43 #H Creatinine 1.84 H Glucose Level 125 Calcium Level 8.6 Test 05/12/17 12:28 Bedside Glucose 204 Medications Medications Current Medications Acetaminophen (Tylenol Tab) 650 mg Q6H PRN GTB PAIN AND OR ELEVATED TEMP Last administered on 05/05/17t 12:01; Admin Dose 650 MG; Start 04/17/17 at 18:00 Bisacodyl (Dulcolax Supp) 10 mg Q24H [place] Last administered on 05/09/17 17:37; Admin Dose 10 MG; Start 04/17/17 at 18:00 Diphenhydramine HCl (Benadryl) 25 mg Q6H PRN GTB ITCHING Last administered on 21:41; Admin Dose 25 MG; Start 04/17/17 at 18:00 Hydralazine HCl (Apresoline) 50 mg Q8 PRN GTB ELEVATED BLOOD PRESSURE Last administered on 04/18/17 13:18; Admin Dose 50 MG; Start 04/17/17 at 18:00 Multivitamins Therapeutic (Theragran) 1 tab DAILY GTB Last administered on 05/12 09:17; Admin Dose 1 TAB; Start 04/18/17 at 09:00 Miscellaneous Information 1 ea NOTE XX ; Start 04/17/17 at 21:00 Glucose (Glutose) 15 gm Q15M PRN PO DECREASED GLUCOSE; Start 04/17/17 at 21:00 Glucose (Glutose) 22.5 gm Q15M PRN PO DECREASED GLUCOSE; Start 04/17/17 at 21: 00 Dextrose (D50w Syringe) 25 ml Q15M PRN IV DECREASED GLUCOSE Last administered on 04/20/17 17:22; Admin Dose 25 ML; Start 04/17/17 at 21:00 Dextrose (D50w Syringe) 50 ml Q15M PRN IV DECREASED GLUCOSE Last administered on 05/06/17 06:24; Admin Dose 50 ML; Start 04/17/17 at 21:00 Glucagon (Glucagen) 1 mg Q15M PRN IM DECREASED GLUCOSE; Start 04/17/17 at 21:00 Glucose (Glutose) 15 gm Q15M PRN BUCCAL DECREASED GLUCOSE; Start 04/17/17 at 21 :00 Ondansetron HCl (Zofran Inj) 4 mg Q6H PRN IV NAUSEA AND/OR VOMITING; Start at 00:30 Insulin Aspart (Novolog Insulin Pen) (Adult SC Insulin - Mild Algorithm)... Q6 SC Last administered on 05/12/17 12:35; Admin Dose 2 UNIT; Start 04/20/17 at 00:00 Insulin Glargine (Lantus) 14 unit QHS SC Last administered on 05/11/17 21:30; Admin Dose 14 UNIT; Start 04/20/17 at 21:00 Metoprolol Tartrate (Lopressor) 25 mg BID PO Last administered on 04/28/17 08: 14; Admin Dose 25 MG; Start 04/23/17 at 09:00; Status Future Hold Hydralazine HCl (Apresoline) 10 mg Q4H PRN IV SBP>170; Start 04/22/17 at 22:00 Nitroglycerin (Nitroglycerin (Sl Tab) 0.4 Mg) 1 tab Q5M PRN SL ANGINA; Start at 18:00 Acetaminophen/ Hydrocodone Bitart ([place] (5/325)) 1 tab Q6H PRN PO PAIN LEVEL 4 -7 Last administered on 05/03/17 12:31; Admin Dose 1 TAB; Start 05/03/17 at 03: 30 Acetaminophen (Tylenol Liquid) 650 mg Q4H PRN GTB PAIN AND OR ELEVATED TEMP Last administered on 05/09/17 17:50; Admin Dose 650 MG; Start 05/03/17 at 03:30 Metoclopramide HCl (Reglan) 5 mg TID IV Last administered on 05/12/17 12:35; Admin Dose 5 MG; Start 05/05/17 at 13:00 Amlodipine Besylate (Norvasc) 5 mg DAILY GTB Last administered on 05/12/17 09: 17; Admin Dose 5 MG; Start 05/07/17 at 09:00 Zinc Acetate/ Diphenhydramine (Benadryl 2% Cr) 1 applic Q8 PRN TOP ITCHING Last administered on 05/07/17 12:16; Admin Dose 1 APPLIC; Start 05/07/17 at 11: 00 Lansoprazole (Prevacid) 30 mg BID@ GTB Last administered on 05/12/17 05: 14; Admin Dose 30 MG; Start 05/08/17 at 18:00 Clonidine HCl (Catapres-Tts 1 Patch) 1 patch Q7D TRANSDERM Last administered on 05/08/17 18:01; Admin Dose 1 PATCH; Start 05/08/17 at 15:00 PORTIA OLIVER MD May 12, 2017 17:06
--- NOTE | 2017-05-12 17:48 | PN ---
Date/Time of Note Date/Time of Note DATE: 05/12/17 TIME: 17:46 Assessment/Plan VTE Prophylaxis VTE Prophylaxis Intervention: SCD's Lines/Catheters IV Catheter Type (from Nrs): [place] Urinary Cath still in place: Yes Reason Cath still needed: urinary retention Assessment/Plan Chief Complaint/Hosp Course Remains hemodynamically stable, on hemodialysis 2 times per week Tuesdays and , able to work with physical therapy, pending senior care facility placement Assessment/Plan - Acute kidney injury on chronic kidney disease. Continue hemodialysis per renal. Dr. Cheema is following in nephrology consultation. - Protein calorie malnutrition, increase G-tube feeding according to driver starting gate recommendations - Status post post urinary tract infection. - History of cerebrovascular accident - Diabetes mellitus. Continue Lantus and NovoLog. - Diastolic congestive heart failure. Continue to monitor intake and output. - Paroxysmal atrial fibrillation, currently in sinus rhythm. - Hypertension. Continue Norvasc. - Hyperlipidemia. Continue statin. - Urinary retention with Flores catheter. - Dysphagia, status post PEG placement - Anemia, continue to monitor hemoglobin and hematocrit. Further recommendations based on clinical course. Plan of care discussed with Dr. Patel Problems: Exam/Review of Systems Vital Signs Vitals Vital Signs Date Time Temp Pulse Resp B/P Pulse Ox O2 Delivery O2 Flow Rate FiO2 05/12/17 14:07 83 18 95 21 05/12/17 07:36 98.9 153/75 05/12/17 05:51 Room Air Intake and Output 05/11/17 05/11/17 05/12/17 14:59 22:59 06:59 Intake Total 1580 ml 575 ml Output Total 1500 ml 500 ml Balance 80 ml 75 ml Exam Constitutional: alert Neck: supple Respiratory: normal air movement Cardiovascular: regular rate and rhythm Gastrointestinal: other, soft Extremities: normal pulses (Tube) Additional Comments Right IJ permacath Results Result Diagram: 05/11/17 0730 05/12/17 0442 Results 24 hrs Laboratory Tests Test 05/11/17 20:05 05/11/17 23:54 05/12/17 04:42 05/12/17 05:17 Bedside Glucose 116 195 108 Sodium Level 136 Potassium Level 4.7 Chloride Level 101 Carbon Dioxide Level 31 Anion Gap 9 Blood Urea Nitrogen 43 #H Creatinine 1.84 H Glucose Level 125 Calcium Level 8.6 Test 05/12/17 12:28 Bedside Glucose 204 Medications Medications Current Medications Acetaminophen (Tylenol Tab) 650 mg Q6H PRN GTB PAIN AND OR ELEVATED TEMP Last administered on 05/05/17 12:01; Admin Dose 650 MG; Start 04/17/17 at 18:00 Bisacodyl (Dulcolax Supp) 10 mg Q24H [place] Last administered on 05/09/17 17:37; Admin Dose 10 MG; Start 04/17/17 at 18:00 Diphenhydramine HCl (Benadryl) 25 mg Q6H PRN GTB ITCHING Last administered on 21:41; Admin Dose 25 MG; Start 04/17/17 at 18:00 Hydralazine HCl (Apresoline) 50 mg Q8 PRN GTB ELEVATED BLOOD PRESSURE Last administered on 04/18/17 13:18; Admin Dose 50 MG; Start 04/17/17 at 18:00 Multivitamins Therapeutic (Theragran) 1 tab DAILY GTB Last administered on 05/12 09:17; Admin Dose 1 TAB; Start 04/18/17 at 09:00 Miscellaneous Information 1 ea NOTE XX ; Start 04/17/17 at 21:00 Glucose (Glutose) 15 gm Q15M PRN PO DECREASED GLUCOSE; Start 04/17/17 at 21:00 Glucose (Glutose) 22.5 gm Q15M PRN PO DECREASED GLUCOSE; Start 04/17/17 at 21: 00 Dextrose (D50w Syringe) 25 ml Q15M PRN IV DECREASED GLUCOSE Last administered on 04/20/17 17:22; Admin Dose 25 ML; Start 04/17/17 at 21:00 Dextrose (D50w Syringe) 50 ml Q15M PRN IV DECREASED GLUCOSE Last administered on 05/06/17 06:24; Admin Dose 50 ML; Start 04/17/17 at 21:00 Glucagon (Glucagen) 1 mg Q15M PRN IM DECREASED GLUCOSE; Start 04/17/17 at 21:00 Glucose (Glutose) 15 gm Q15M PRN BUCCAL DECREASED GLUCOSE; Start 04/17/17 at 21 :00 Ondansetron HCl (Zofran Inj) 4 mg Q6H PRN IV NAUSEA AND/OR VOMITING; Start at 00:30 Insulin Aspart (Novolog Insulin Pen) (Adult SC Insulin - Mild Algorithm)... Q6 [place] Last administered on 05/12/17 12:35; Admin Dose 2 UNIT; Start 04/20/17 at 00:00 Insulin Glargine (Lantus) 14 unit QHS [place] Last administered on 05/11/17 21:30; Admin Dose 14 UNIT; Start 04/20/17 at 21:00 Metoprolol Tartrate (Lopressor) 25 mg BID PO Last administered on 04/28/17 08: 14; Admin Dose 25 MG; Start 04/23/17 at 09:00; Status Future Hold Hydralazine HCl (Apresoline) 10 mg Q4H PRN IV SBP>170; Start 04/22/17 at 22:00 Nitroglycerin (Nitroglycerin (Sl Tab) 0.4 Mg) 1 tab Q5M PRN SL ANGINA; Start at 18:00 Acetaminophen/ Hydrocodone Bitart ([place] (5/325)) 1 tab Q6H PRN PO PAIN LEVEL 4 -7 Last administered on 05/03/17 12:31; Admin Dose 1 TAB; Start 05/03/17 at 03: 30 Acetaminophen (Tylenol Liquid) 650 mg Q4H PRN GTB PAIN AND OR ELEVATED TEMP Last administered on 05/09/17 17:50; Admin Dose 650 MG; Start 05/03/17 at 03:30 Metoclopramide HCl (Reglan) 5 mg TID IV Last administered on 05/12/17 12:35; Admin Dose 5 MG; Start 05/05/17 at 13:00 Amlodipine Besylate (Norvasc) 5 mg DAILY GTB Last administered on 05/12/17 09: 17; Admin Dose 5 MG; Start 05/07/17 at 09:00 Zinc Acetate/ Diphenhydramine (Benadryl 2% Cr) 1 applic Q8 PRN TOP ITCHING Last administered on 05/07/17 12:16; Admin Dose 1 APPLIC; Start 05/07/17 at 11: 00 Lansoprazole (Prevacid) 30 mg BID@06,18 GTB Last administered on 05/12/17 05: 14; Admin Dose 30 MG; Start 05/08/17 at 18:00 Clonidine HCl (Catapres-Tts 1 Patch) 1 patch Q7D TRANSDERM Last administered on 05/08/17t 18:01; Admin Dose 1 PATCH; Start 05/08/17 at 15:00 GEOVANY IBARRA May 12, 2017 17:48
[2017-05-12] MEDS: BISACODYL 10 MG SUPP PR SCH (17:56)
[2017-05-12] MEDS: ACETAMINOPHEN 650MG/20.3ML CUP GTB PRN (18:12)
[2017-05-12 20:05] VITALS: BP 146/69; RESP 18
[2017-05-12] MEDS: INSULIN GLARGINE [LANtus] 3 ML PEN SC SCH (20:33)
[2017-05-13] VITALS (14 sets, daily range): BP systolic 110–141; BP diastolic 48–66; PULSE 78–88; RESP 18–21
[2017-05-13] MEDS: Insulin NOVOLOG SS MILD Algorithm (NPO/TPN/ENTERAL FEEDS) SC SCH ×4 (00:30→18:13)
[2017-05-13] MEDS: ALBUTEROL/IPRATROPIUM (NEB) 3 ML AMP HHN SCH ×4 (01:58→20:26)
[2017-05-13] MEDS: LANSOPRAZOLE 30 MG CAP GTB SCH ×2 (05:50→18:09)
[2017-05-13] MEDS: FUROSEMIDE 20 MG INJ IV SCH ×2 (05:51→18:09)
[2017-05-13 08:02] LABS: CALCIUM 8.5 mg/dl (8.4-10.2); CREATININE 2.38 mg/dl (0.61-1.24); POTASSIUM 5.2 mmol/L (3.5-5.1)
[2017-05-13] MEDS: METOCLOPRAMIDE 10 MG INJ IV SCH ×3 (12:25→20:12)
[2017-05-13] MEDS: MULTIVITAMINS THERAPEUTIC TAB GTB SCH (12:26)
[2017-05-13] MEDS: AMLODIPINE 5 MG TAB GTB SCH (12:26)
--- NOTE | 2017-05-13 13:05 | CONS ---
Date/Time of Note Date/Time of Note DATE: 05/13/17 TIME: 13:02 Assessment/Plan Assessment/Plan Chief Complaint/Hosp Course IMP: 1.HTN-reasonable control 2.H/O PAF-Remains in SR at this time by exam 3.renal failure 4.dysphagia 5. AMS 6. Heart [id number] HR.improved with holding BB overall some intermittent recurrence 7. Chest pain-resolved/negative troponin/no change on serial ecg 8. Occasional PVC's 9. CHF-diastolic acute on chronic 10.UTI 11.anemia REcc: -Tele -serial ecg's -follow rhythm closely -Continue norvasc/clondine TTS and follow BP closely -Continue to Hold BB given wenkebach -Follow volume status closely with HD today -HD for volume removal -Follow MS kam Problems: Consultation Date/Type/Reason Admit Date/Time Apr 17, 2017 at 16:39 Initial Consult Date 04/18/17 Type of Consultation: cardiology Reason for Consultation AF Referring Provider: PORTIA OLIVER MD Exam/Review of Systems Vital Signs Vitals Vital Signs Date Time Temp Pulse Resp B/P Pulse Ox O2 Delivery O2 Flow Rate FiO2 05/13/17 12:12 78 05/13/17 09:00 18 05/13/17 07:53 98.2 128/ 98 05/13/17 07:43 21 05/13/17 06:29 Room Air Intake and Output 05/12/17 05/12/17 05/13/17 15:00 23:00 07:00 Intake Total 915 ml Output Total 600 ml Balance 315 ml Exam Review of Systems: CONSTITUTIONAL: No fevers, chills. PULMONARY: No sob CARDIOVASCULAR: No chest pain/palpitations GASTROINTESTINAL: No nausea/vomiting. GENITOURINARY: No hematuria/dysuria. MUSCULOSKELETAL: No myagias/arthalgias. PSYCHIATRIC: The patient denies depression. NEUROLOGIC: lethargic Constitutional: other (sleeping) Psych: no complaints Head: normocephalic ENMT: mucosa pink and moist Neck: jvd (9 cm water), supple Respiratory: clear to auscultation Cardiovascular: regular rate and rhythm Gastrointestinal: non-tender, soft Musculoskeletal: muscle tone (normal) Extremities: edema (none) Neurological: other (No focal deficits) Results Result Diagram: 05/11/17 0730 05/13/17 0430 Results 24 hrs Laboratory Tests Test 05/12/17 17:52 05/12/17 20:29 05/13/17 00:25 05/13/17 04:30 Bedside Glucose 216 164 196 Sodium Level 134 L Potassium Level 5.2 H Chloride Level 98 Carbon Dioxide Level 30 Anion Gap 11 Blood Urea Nitrogen 63 H Creatinine 2.38 H Glucose Level 194 Calcium Level 8.5 Test 05/13/17 05:56 05/13/17 12:17 Bedside Glucose 202 244 H Medications Medications Current Medications Acetaminophen (Tylenol Tab) 650 mg Q6H PRN GTB PAIN AND OR ELEVATED TEMP Last administered on 05/05/17 12:01; Admin Dose 650 MG; Start 04/17/17 at 18:00 Bisacodyl (Dulcolax Supp) 10 mg Q24H SD Last administered on 05/12/17 17:56; Admin Dose 10 MG; Start 04/17/17 at 18:00 Diphenhydramine HCl (Benadryl) 25 mg Q6H PRN GTB ITCHING Last administered on 21:41; Admin Dose 25 MG; Start 04/17/17 at 18:00 Hydralazine HCl (Apresoline) 50 mg Q8 PRN GTB ELEVATED BLOOD PRESSURE Last administered on 04/18/17 13:18; Admin Dose 50 MG; Start 04/17/17 at 18:00 Multivitamins Therapeutic (Theragran) 1 tab DAILY GTB Last administered on 05/13 12:26; Admin Dose 1 TAB; Start 04/18/17 at 09:00 Miscellaneous Information 1 ea NOTE XX ; Start 04/17/17 at 21:00 Glucose (Glutose) 15 gm Q15M PRN PO DECREASED GLUCOSE; Start 04/17/17 at 21:00 Glucose (Glutose) 22.5 gm Q15M PRN PO DECREASED GLUCOSE; Start 04/17/17 at 21: 00 Dextrose (D50w Syringe) 25 ml Q15M PRN IV DECREASED GLUCOSE Last administered on 04/20/17 17:22; Admin Dose 25 ML; Start 04/17/17 at 21:00 Dextrose (D50w Syringe) 50 ml Q15M PRN IV DECREASED GLUCOSE Last administered on 05/06/17 06:24; Admin Dose 50 ML; Start 04/17/17 at 21:00 Glucagon (Glucagen) 1 mg Q15M PRN IM DECREASED GLUCOSE; Start 04/17/17 at 21:00 Glucose (Glutose) 15 gm Q15M PRN BUCCAL DECREASED GLUCOSE; Start 04/17/17 at 21 :00 Ondansetron HCl (Zofran Inj) 4 mg Q6H PRN IV NAUSEA AND/OR VOMITING; Start at 00:30 Insulin Aspart (Novolog Insulin Pen) (Adult SC Insulin - Mild Algorithm)... Q6 SC Last administered on 05/13/17 12:30; Admin Dose 3 UNIT; Start 04/20/17 at 00:00 Insulin Glargine (Lantus) 14 unit QHS SC Last administered on 05/12/17 20:33; Admin Dose 14 UNIT; Start 04/20/17 at 21:00 Metoprolol Tartrate (Lopressor) 25 mg BID PO Last administered on 04/28/17 08: 14; Admin Dose 25 MG; Start 04/23/17 at 09:00; Status Future Hold Hydralazine HCl (Apresoline) 10 mg Q4H PRN IV SBP>170; Start 04/22/17 at 22:00 Nitroglycerin (Nitroglycerin (Sl Tab) 0.4 Mg) 1 tab Q5M PRN SL ANGINA; Start at 18:00 Acetaminophen/ Hydrocodone Bitart ([place] (5/325)) 1 tab Q6H PRN PO PAIN LEVEL 4 -7 Last administered on 05/03/17 12:31; Admin Dose 1 TAB; Start 05/03/17 at 03: 30 Acetaminophen (Tylenol Liquid) 650 mg Q4H PRN GTB PAIN AND OR ELEVATED TEMP Last administered on 05/12/17 18:12; Admin Dose 650 MG; Start 05/03/17 at 03:30 Metoclopramide HCl (Reglan) 5 mg TID IV Last administered on 05/13/17 12:25; Admin Dose 5 MG; Start 05/05/17 at 13:00 Amlodipine Besylate (Norvasc) 5 mg DAILY GTB Last administered on 05/13/17 12: 26; Admin Dose 5 MG; Start 05/07/17 at 09:00 Zinc Acetate/ Diphenhydramine (Benadryl 2% Cr) 1 applic Q8 PRN TOP ITCHING Last administered on 05/07/17 12:16; Admin Dose 1 APPLIC; Start 05/07/17 at 11: 00 Lansoprazole (Prevacid) 30 mg BID@06,18 GTB Last administered on 05/13/17 05: 50; Admin Dose 30 MG; Start 05/08/17 at 18:00 Clonidine HCl (Catapres-Tts 1 Patch) 1 patch Q7D TRANSDERM Last administered on 05/08/17 18:01; Admin Dose 1 PATCH; Start 05/08/17 at 15:00 LESLI SHEA May 13, 2017 13:05
--- NOTE | 2017-05-13 15:10 | CONS ---
Date/Time of Note Date/Time of Note DATE: 05/13/17 TIME: 15:09 Assessment/Plan Assessment/Plan Chief Complaint/Hosp Course 72 y/o with 1.BISI on CKD s/p Hd initiated on 05/06 2.Hypernatremia >improving 3.HTN 4 Ecoli UTI 5 Sepsis due to #4 6 Chronic Afib 7 CVA s/p G tube placement 8 Renal cyst 9 Hyperphosphetemia 10 Leukocytosis> work up per ID Recs - Plan is to do HD twice per week T/ - HD today - HD placement - Hold BP meds before HD - Labs am - Pending snif placement Problems: Consultation Date/Type/Reason Admit Date/Time Apr 17, 2017 at 16:39 Initial Consult Date 04/18/17 Type of Consultation: cardiology Referring Provider: PORTIA OLIVER MD 24 HR Interval Summary Free Text/Dictation No acute events Had HD this am Exam/Review of Systems Vital Signs Vitals Vital Signs Date Time Temp Pulse Resp B/P Pulse Ox O2 Delivery O2 Flow Rate FiO2 05/13/17 14:56 78 97 21 05/13/17 09:00 18 05/13/17 07:53 98.2 128/ 05/13/17 06:29 Room Air Intake and Output 05/12/17 05/12/17 05/13/17 15:00 23:00 07:00 Intake Total 915 ml Output Total 600 ml Balance 315 ml Exam xam Gen:awake,alert, covers his face with sheet Neck:supple CVS:Regular rate and rthym Lungs:clear Abdomen:soft, non tender Ext: no edema Results Result Diagram: 05/11/17 0730 05/13/17 0430 Results 24 hrs Laboratory Tests Test 05/12/17 17:52 05/12/17 20:29 05/13/17 00:25 05/13/17 04:30 Bedside Glucose 216 164 196 Sodium Level 134 L Potassium Level 5.2 H Chloride Level 98 Carbon Dioxide Level 30 Anion Gap 11 Blood Urea Nitrogen 63 H Creatinine 2.38 H Glucose Level 194 Calcium Level 8.5 Test 05/13/17 05:56 05/13/17 12:17 Bedside Glucose 202 244 H Medications Medications Current Medications Acetaminophen (Tylenol Tab) 650 mg Q6H PRN GTB PAIN AND OR ELEVATED TEMP Last administered on 05/05/17t 12:01; Admin Dose 650 MG; Start 04/17/17 at 18:00 Bisacodyl (Dulcolax Supp) 10 mg Q24H [place] Last administered on 05/12/17 17:56; Admin Dose 10 MG; Start 04/17/17 at 18:00 Diphenhydramine HCl (Benadryl) 25 mg Q6H PRN GTB ITCHING Last administered on 21:41; Admin Dose 25 MG; Start 04/17/17 at 18:00 Hydralazine HCl (Apresoline) 50 mg Q8 PRN GTB ELEVATED BLOOD PRESSURE Last administered on 04/18/17 13:18; Admin Dose 50 MG; Start 04/17/17 at 18:00 Multivitamins Therapeutic (Theragran) 1 tab DAILY GTB Last administered on 05/13 12:26; Admin Dose 1 TAB; Start 04/18/17 at 09:00 Miscellaneous Information 1 ea NOTE XX ; Start 04/17/17 at 21:00 Glucose (Glutose) 15 gm Q15M PRN PO DECREASED GLUCOSE; Start 04/17/17 at 21:00 Glucose (Glutose) 22.5 gm Q15M PRN PO DECREASED GLUCOSE; Start 04/17/17 at 21: 00 Dextrose (D50w Syringe) 25 ml Q15M PRN IV DECREASED GLUCOSE Last administered on 04/20/17 17:22; Admin Dose 25 ML; Start 04/17/17 at 21:00 Dextrose (D50w Syringe) 50 ml Q15M PRN IV DECREASED GLUCOSE Last administered on 05/06/17 06:24; Admin Dose 50 ML; Start 04/17/17 at 21:00 Glucagon (Glucagen) 1 mg Q15M PRN IM DECREASED GLUCOSE; Start 04/17/17 at 21:00 Glucose (Glutose) 15 gm Q15M PRN BUCCAL DECREASED GLUCOSE; Start 04/17/17 at 21 :00 Ondansetron HCl (Zofran Inj) 4 mg Q6H PRN IV NAUSEA AND/OR VOMITING; Start at 00:30 Insulin Aspart (Novolog Insulin Pen) (Adult SC Insulin - Mild Algorithm)... Q6 SC Last administered on 05/13/17 12:30; Admin Dose 3 UNIT; Start 04/20/17 at 00:00 Insulin Glargine (Lantus) 14 unit QHS SC Last administered on 05/12/17 20:33; Admin Dose 14 UNIT; Start 04/20/17 at 21:00 Metoprolol Tartrate (Lopressor) 25 mg BID PO Last administered on 04/28/17 08: 14; Admin Dose 25 MG; Start 04/23/17 at 09:00; Status Future Hold Hydralazine HCl (Apresoline) 10 mg Q4H PRN IV SBP>170; Start 04/22/17 at 22:00 Nitroglycerin (Nitroglycerin (Sl Tab) 0.4 Mg) 1 tab Q5M PRN SL ANGINA; Start at 18:00 Acetaminophen/ Hydrocodone Bitart ([place] (5/325)) 1 tab Q6H PRN PO PAIN LEVEL 4 -7 Last administered on 05/03/17 12:31; Admin Dose 1 TAB; Start 05/03/17 at 03: 30 Acetaminophen (Tylenol Liquid) 650 mg Q4H PRN GTB PAIN AND OR ELEVATED TEMP Last administered on 05/12/17 18:12; Admin Dose 650 MG; Start 05/03/17 at 03:30 Metoclopramide HCl (Reglan) 5 mg TID IV Last administered on 05/13/17 12:25; Admin Dose 5 MG; Start 05/05/17 at 13:00 Amlodipine Besylate (Norvasc) 5 mg DAILY GTB Last administered on 05/13/17 12: 26; Admin Dose 5 MG; Start 05/07/17 at 09:00 Zinc Acetate/ Diphenhydramine (Benadryl 2% Cr) 1 applic Q8 PRN TOP ITCHING Last administered on 05/07/17 12:16; Admin Dose 1 APPLIC; Start 05/07/17 at 11: 00 Lansoprazole (Prevacid) 30 mg BID@18 GTB Last administered on 05/13/17 05: 50; Admin Dose 30 MG; Start 05/08/17 at 18:00 Clonidine HCl (Catapres-Tts 1 Patch) 1 patch Q7D TRANSDERM Last administered on 05/08/17 18:01; Admin Dose 1 PATCH; Start 05/08/17 at 15:00 PORTIA OLIVER MD May 13, 2017 15:10
[2017-05-13] MEDS: BISACODYL 10 MG SUPP PR SCH (18:09)
--- NOTE | 2017-05-13 18:23 | PN ---
Date/Time of Note Date/Time of Note DATE: 05/13/17 TIME: 18:14 Assessment/Plan VTE Prophylaxis VTE Prophylaxis Intervention: other Lines/Catheters IV Catheter Type (from Nrs): Saline Lock Urinary Cath still in place: Yes Reason Cath still needed: urinary retention Assessment/Plan Assessment/Plan - Hyperkalemia- sp HD today, bmp am - Acute kidney injury on chronic kidney disease. Continue hemodialysis per renal. Dr. Cheema is following in nephrology consultation. - Protein calorie malnutrition, increase G-tube feeding according to rn postpartum recommendations - Status post post urinary tract infection. - History of cerebrovascular accident - Diabetes mellitus. Continue Lantus and NovoLog. - Diastolic congestive heart failure. Continue to monitor intake and output. - Paroxysmal atrial fibrillation, currently in sinus rhythm. - Hypertension. Continue Norvasc. - Hyperlipidemia. Continue statin. - Urinary retention with Flores catheter. - Dysphagia, status post PEG placement - Anemia, continue to monitor hemoglobin and hematocrit. Further recommendations based on clinical course. Plan of care discussed with Dr. Patel Subjective 24 Hr Interval Summary Free Text/Dictation sitter at bed side, VSS,seems comfortable, no scratching noted, HD X 2 times per week Tuesdays and , tolerates physical therapy, pending assisted facility placement- dw staff Respiratory: no complaints Cardiovascular: no complaints Gastrointestinal: no complaints Exam/Review of Systems Vital Signs Vitals Vital Signs Date Time Temp Pulse Resp B/P Pulse Ox O2 Delivery O2 Flow Rate FiO2 05/13/17 18:04 98.1 82 20 141/65 99 05/13/17 14:56 21 05/13/17 06:29 Room Air Intake and Output 05/12/17 05/12/17 05/13/17 15:00 23:00 07:00 Intake Total 915 ml Output Total 600 ml Balance 315 ml Exam Constitutional: frail Neck: non-tender Respiratory: clear to auscultation Cardiovascular: nl pulses Gastrointestinal: non-tender Musculoskeletal: nl extremities to inspection Extremities: normal pulses Neurological: confused, nl speech Results Result Diagram: 05/11/17 0730 05/13/17 0430 Results 24 hrs Laboratory Tests Test 05/12/17 20:29 05/13/17 00:25 05/13/17 04:30 05/13/17 05:56 Bedside Glucose 164 196 202 Sodium Level 134 L Potassium Level 5.2 H Chloride Level 98 Carbon Dioxide Level 30 Anion Gap 11 Blood Urea Nitrogen 63 H Creatinine 2.38 H Glucose Level 194 Calcium Level 8.5 Test 05/13/17 12:17 05/13/17 18:02 Bedside Glucose 244 H 223 H Medications Medications Current Medications Acetaminophen (Tylenol Tab) 650 mg Q6H PRN GTB PAIN AND OR ELEVATED TEMP Last administered on 05/05/17 12:01; Admin Dose 650 MG; Start 04/17/17 at 18:00 Bisacodyl (Dulcolax Supp) 10 mg Q24H [place] Last administered on 05/12/17 17:56; Admin Dose 10 MG; Start 04/17/17 at 18:00 Diphenhydramine HCl (Benadryl) 25 mg Q6H PRN GTB ITCHING Last administered on 21:41; Admin Dose 25 MG; Start 04/17/17 at 18:00 Hydralazine HCl (Apresoline) 50 mg Q8 PRN GTB ELEVATED BLOOD PRESSURE Last administered on 04/18/17 13:18; Admin Dose 50 MG; Start 04/17/17 at 18:00 Multivitamins Therapeutic (Theragran) 1 tab DAILY GTB Last administered on 05/13 12:26; Admin Dose 1 TAB; Start 04/18/17 at 09:00 Miscellaneous Information 1 ea NOTE XX ; Start 04/17/17 at 21:00 Glucose (Glutose) 15 gm Q15M PRN PO DECREASED GLUCOSE; Start 04/17/17 at 21:00 Glucose (Glutose) 22.5 gm Q15M PRN PO DECREASED GLUCOSE; Start 04/17/17 at 21: 00 Dextrose (D50w Syringe) 25 ml Q15M PRN IV DECREASED GLUCOSE Last administered on 04/20/17 17:22; Admin Dose 25 ML; Start 04/17/17 at 21:00 Dextrose (D50w Syringe) 50 ml Q15M PRN IV DECREASED GLUCOSE Last administered on 05/06/17 06:24; Admin Dose 50 ML; Start 04/17/17 at 21:00 Glucagon (Glucagen) 1 mg Q15M PRN IM DECREASED GLUCOSE; Start 04/17/17 at 21:00 Glucose (Glutose) 15 gm Q15M PRN BUCCAL DECREASED GLUCOSE; Start 04/17/17 at 21 :00 Ondansetron HCl (Zofran Inj) 4 mg Q6H PRN IV NAUSEA AND/OR VOMITING; Start at 00:30 Insulin Aspart (Novolog Insulin Pen) (Adult SC Insulin - Mild Algorithm)... Q6 SC Last administered on 05/13/17 12:30; Admin Dose 3 UNIT; Start 04/20/17 at 00:00 Insulin Glargine (Lantus) 14 unit QHS SC Last administered on 05/12/17 20:33; Admin Dose 14 UNIT; Start 04/20/17 at 21:00 Metoprolol Tartrate (Lopressor) 25 mg BID PO Last administered on 04/28/17 08: 14; Admin Dose 25 MG; Start 04/23/17 at 09:00; Status Future Hold Hydralazine HCl (Apresoline) 10 mg Q4H PRN IV SBP>170; Start 04/22/17 at 22:00 Nitroglycerin (Nitroglycerin (Sl Tab) 0.4 Mg) 1 tab Q5M PRN SL ANGINA; Start at 18:00 Acetaminophen/ Hydrocodone Bitart ([place] (5/325)) 1 tab Q6H PRN PO PAIN LEVEL 4 -7 Last administered on 05/03/17 12:31; Admin Dose 1 TAB; Start 05/03/17 at 03: 30 Acetaminophen (Tylenol Liquid) 650 mg Q4H PRN GTB PAIN AND OR ELEVATED TEMP Last administered on 05/12/17 18:12; Admin Dose 650 MG; Start 05/03/17 at 03:30 Metoclopramide HCl (Reglan) 5 mg TID IV Last administered on 05/13/17 12:25; Admin Dose 5 MG; Start 05/05/17 at 13:00 Amlodipine Besylate (Norvasc) 5 mg DAILY GTB Last administered on 05/13/17 12: 26; Admin Dose 5 MG; Start 05/07/17 at 09:00 Zinc Acetate/ Diphenhydramine (Benadryl 2% Cr) 1 applic Q8 PRN TOP ITCHING Last administered on 05/07/17 12:16; Admin Dose 1 APPLIC; Start 05/07/17 at 11: 00 Lansoprazole (Prevacid) 30 mg BID@06,18 GTB Last administered on 05/13/17 05: 50; Admin Dose 30 MG; Start 05/08/17 at 18:00 Clonidine HCl (Catapres-Tts 1 Patch) 1 patch Q7D TRANSDERM Last administered on 05/08/17 18:01; Admin Dose 1 PATCH; Start 05/08/17 at 15:00 MARCY WEINER May 13, 2017 18:23
[2017-05-13] MEDS: INSULIN GLARGINE [LANtus] 3 ML PEN SC SCH (20:33)
[2017-05-14] MEDS: ALBUTEROL/IPRATROPIUM (NEB) 3 ML AMP HHN SCH ×4 (01:30→19:54)
[2017-05-14 02:15] VITALS: BP 129/59; RESP 19
[2017-05-14] MEDS: Insulin NOVOLOG SS MILD Algorithm (NPO/TPN/ENTERAL FEEDS) SC SCH ×4 (06:00→17:36)
[2017-05-14 06:05] LABS: BASOPHIL # 0.1 10^3/ul (0.0-0.1); BASOPHILS % 0.9 % (0.0-2.0); EOSINOPHILS # 0.8 10^3/ul (0.0-0.5); EOSINOPHILS % 9.3 % (0.0-7.0); HEMATOCRIT 27.8 % (42.0-52.0); HEMOGLOBIN 8.7 g/dl (14.0-18.0); LYMPHOCYTES # 1.6 10^3/ul (0.8-2.9); MEAN CORPUSCULAR HEMOGLOBIN 28.2 pg (29.0-33.0); MEAN CORPUSCULAR HGB CONC 31.3 g/dl (32.0-37.0); MEAN CORPUSCULAR VOLUME 90.3 fl (82.0-101.0); MEAN PLATELET VOLUME 11.8 fl (7.4-10.4); MONOCYTE # 0.7 10^3/ul (0.3-0.9); MONOCYTES % 9.1 % (0.0-11.0); NEUTROPHIL # 4.9 10^3/ul (1.6-7.5); NEUTROPHILS % 60.2 % (39.0-77.0); PLATELET COUNT 220 10^3/UL (140-415); RED BLOOD COUNT 3.08 10^6/ul (4.70-6.10); RED CELL DISTRIBUTION WIDTH 19.9 % (11.5-14.5); WHITE BLOOD COUNT 8.2 10^3/ul (4.8-10.8)
[2017-05-14] MEDS: LANSOPRAZOLE 30 MG CAP GTB SCH ×2 (06:22→17:23)
[2017-05-14] MEDS: FUROSEMIDE 20 MG INJ IV SCH ×2 (06:22→17:27)
[2017-05-14 06:52] LABS: CALCIUM 8.7 mg/dl (8.4-10.2); CREATININE 2.06 mg/dl (0.61-1.24); POTASSIUM 4.8 mmol/L (3.5-5.1)
[2017-05-14 08:00] VITALS: BP 163/76; RESP 16
[2017-05-14] MEDS: AMLODIPINE 5 MG TAB GTB SCH (08:21)
[2017-05-14] MEDS: METOCLOPRAMIDE 10 MG INJ IV SCH ×3 (08:21→20:18)
[2017-05-14] MEDS: MULTIVITAMINS THERAPEUTIC TAB GTB SCH (08:21)
[2017-05-14 11:30] VITALS: BP 144/67; PULSE 88; RESP 16
--- NOTE | 2017-05-14 14:26 | CONS ---
Date/Time of Note Date/Time of Note DATE: 05/14/17 TIME: 14:24 Assessment/Plan Assessment/Plan Chief Complaint/Hosp Course 1.BISI on CKD s/p Hd initiated on 05/06 2.Hypernatremia >improving 3.HTN 4 Ecoli UTI 5 Sepsis due to #4 6 Chronic Afib 7 CVA s/p G tube placement 8 Renal cyst 9 Hyperphosphatemia. 10 Leukocytosis> work up per ID Problems: Additional Assessment/Plan 1. continue current regime, HD twice a week Consultation Date/Type/Reason Admit Date/Time Apr 17, 2017 at 16:39 Initial Consult Date 04/18/17 Type of Consultation: nephrology Reason for Consultation Dr Cheema Referring Provider: PORTIA OLIVER MD Exam/Review of Systems Vital Signs Vitals Vital Signs Date Time Temp Pulse Resp B/P Pulse Ox O2 Delivery O2 Flow Rate FiO2 05/14/17 13:49 72 20 96 21 05/14/17 11:30 144/67 Room Air 05/14/17 08:00 98.3 Intake and Output 05/13/17 05/13/17 05/14/17 15:00 23:00 07:00 Intake Total 200 ml 1000 ml 1000 ml Output Total 1000 ml 600 ml 400 ml Balance -800 ml 400 ml 600 ml Exam Constitutional: frail Psych: other (lethargic) ENMT: nl external ears & nose Neck: supple Respiratory: diminished breath sounds Cardiovascular: irregular rhythm Genitourinary - Male: nl penis, nl scrotum Results Result Diagram: 05/14/17 0449 05/14/179 Results 24 hrs Laboratory Tests Test 05/13/17 18:02 05/13/17 20:16 05/14/17 00:31 05/14/17 04:49 Bedside Glucose 223 H 71 114 White Blood Count 8.2 Red Blood Count 3.08 L Hemoglobin 8.7 L Hematocrit 27.8 L Mean Corpuscular Volume 90.3 Mean Corpuscular Hemoglobin 28.2 L Mean Corpuscular Hemoglobin Concent 31.3 L Red Cell Distribution Width 19.9 H Platelet Count 220 # Mean Platelet Volume 11.8 H Neutrophils % 60.2 Lymphocytes % 20.0 Monocytes % 9.1 Eosinophils % 9.3 H Basophils % 0.9 Nucleated Red Blood Cells % 0.0 Neutrophils # 4.9 Lymphocytes # 1.6 Monocytes # 0.7 Eosinophils # 0.8 H Basophils # 0.1 Nucleated Red Blood Cells # 0.0 Sodium Level 135 Potassium Level 4.8 Chloride Level 98 Carbon Dioxide Level 34 H Anion Gap 8 Blood Urea Nitrogen 51 H Creatinine 2.06 H Glucose Level 93 # Calcium Level 8.7 Test 05/14/17 06:19 05/14/17 12:26 Bedside Glucose 104 285 H Medications Medications Current Medications Acetaminophen (Tylenol Tab) 650 mg Q6H PRN GTB PAIN AND OR ELEVATED TEMP Last administered on 05/05/17 12:01; Admin Dose 650 MG; Start 04/17/17 at 18:00 Bisacodyl (Dulcolax Supp) 10 mg Q24H [place] Last administered on 05/13/17 18:09; Admin Dose 10 MG; Start 04/17/17 at 18:00 Diphenhydramine HCl (Benadryl) 25 mg Q6H PRN GTB ITCHING Last administered on 21:41; Admin Dose 25 MG; Start 04/17/17 at 18:00 Hydralazine HCl (Apresoline) 50 mg Q8 PRN GTB ELEVATED BLOOD PRESSURE Last administered on 04/18/17 13:18; Admin Dose 50 MG; Start 04/17/17 at 18:00 Multivitamins Therapeutic (Theragran) 1 tab DAILY GTB Last administered on 05/14 08:21; Admin Dose 1 TAB; Start 04/18/17 at 09:00 Miscellaneous Information 1 ea NOTE XX ; Start 04/17/17 at 21:00 Glucose (Glutose) 15 gm Q15M PRN PO DECREASED GLUCOSE; Start 04/17/17 at 21:00 Glucose (Glutose) 22.5 gm Q15M PRN PO DECREASED GLUCOSE; Start 04/17/17 at 21: 00 Dextrose (D50w Syringe) 25 ml Q15M PRN IV DECREASED GLUCOSE Last administered on 04/20/17 17:22; Admin Dose 25 ML; Start 04/17/17 at 21:00 Dextrose (D50w Syringe) 50 ml Q15M PRN IV DECREASED GLUCOSE Last administered on 05/06/17 06:24; Admin Dose 50 ML; Start 04/17/17 at 21:00 Glucagon (Glucagen) 1 mg Q15M PRN IM DECREASED GLUCOSE; Start 04/17/17 at 21:00 Glucose (Glutose) 15 gm Q15M PRN BUCCAL DECREASED GLUCOSE; Start 04/17/17 at 21 :00 Ondansetron HCl (Zofran Inj) 4 mg Q6H PRN IV NAUSEA AND/OR VOMITING; Start at 00:30 Insulin Aspart (Novolog Insulin Pen) (Adult SC Insulin - Mild Algorithm)... Q6 SC Last administered on 05/14/17 12:33; Admin Dose 4 UNIT; Start 04/20/17 at 00:00 Insulin Glargine (Lantus) 14 unit QHS SC Last administered on 05/13/17 20:33; Admin Dose 14 UNIT; Start 04/20/17 at 21:00 Metoprolol Tartrate (Lopressor) 25 mg BID PO Last administered on 04/28/17 08: 14; Admin Dose 25 MG; Start 04/23/17 at 09:00; Status Future Hold Hydralazine HCl (Apresoline) 10 mg Q4H PRN IV SBP>170; Start 04/22/17 at 22:00 Nitroglycerin (Nitroglycerin (Sl Tab) 0.4 Mg) 1 tab Q5M PRN SL ANGINA; Start at 18:00 Acetaminophen/ Hydrocodone Bitart ([place] (5/325)) 1 tab Q6H PRN PO PAIN LEVEL 4 -7 Last administered on 05/03/17 12:31; Admin Dose 1 TAB; Start 05/03/17 at 03: 30 Acetaminophen (Tylenol Liquid) 650 mg Q4H PRN GTB PAIN AND OR ELEVATED TEMP Last administered on 05/12/17 18:12; Admin Dose 650 MG; Start 05/03/17 at 03:30 Metoclopramide HCl (Reglan) 5 mg TID IV Last administered on 05/14/17 12:27; Admin Dose 5 MG; Start 05/05/17 at 13:00 Amlodipine Besylate (Norvasc) 5 mg DAILY GTB Last administered on 05/14/17 08: 21; Admin Dose 5 MG; Start 05/07/17 at 09:00 Zinc Acetate/ Diphenhydramine (Benadryl 2% Cr) 1 applic Q8 PRN TOP ITCHING Last administered on 05/07/17 12:16; Admin Dose 1 APPLIC; Start 05/07/17 at 11: 00 Lansoprazole (Prevacid) 30 mg BID@06,18 GTB Last administered on 05/14/17 06: 22; Admin Dose 30 MG; Start 05/08/17 at 18:00 Clonidine HCl (Catapres-Tts 1 Patch) 1 patch Q7D TRANSDERM Last administered on 05/08/17 18:01; Admin Dose 1 PATCH; Start 05/08/17 at 15:00 CHELSIE HERNÁNDEZ May 14, 2017 14:26
[2017-05-14 14:30] VITALS: BP 113/58; RESP 16
--- NOTE | 2017-05-14 14:51 | CONS ---
Date/Time of Note Date/Time of Note DATE: 05/14/17 TIME: 14:50 Assessment/Plan Assessment/Plan Chief Complaint/Hosp Course IMP: 1.HTN-reasonable control but labile 2.H/O PAF-Remains in SR at this time by exam 3.renal failure 4.dysphagia 5. AMS 6. Heart [id number]-gaceqc HR.improved with holding BB overall some intermittent recurrence 7. Chest pain-resolved/negative troponin/no change on serial ecg 8. Occasional PVC's 9. CHF-diastolic acute on chronic 10.UTI 11.anemia REcc: -Tele -serial ecg's to document rhythm -Continue norvasc/clondine TTS and follow BP closely -Continue to Hold BB given wenkebach -Follow volume status closely with HD today -HD for volume removal -Follow MS kam Problems: Consultation Date/Type/Reason Admit Date/Time Apr 17, 2017 at 16:39 Initial Consult Date 04/18/17 Type of Consultation: cardiology Reason for Consultation AF Referring Provider: PORTIA OLIVER MD Exam/Review of Systems Vital Signs Vitals Vital Signs Date Time Temp Pulse Resp B/P Pulse Ox O2 Delivery O2 Flow Rate FiO2 05/14/17 13:49 72 20 96 21 05/14/17 11:30 144/67 Room Air 05/14/17 08:00 98.3 Intake and Output 05/13/17 05/13/17 05/14/17 15:00 23:00 07:00 Intake Total 200 ml 1000 ml 1000 ml Output Total 1000 ml 600 ml 400 ml Balance -800 ml 400 ml 600 ml Exam Review of Systems: CONSTITUTIONAL: No fevers, chills. PULMONARY: No sob CARDIOVASCULAR: No chest pain/palpitations GASTROINTESTINAL: No nausea/vomiting. GENITOURINARY: No hematuria/dysuria. MUSCULOSKELETAL: No myagias/arthalgias. PSYCHIATRIC: The patient denies depression. NEUROLOGIC: No weakness Constitutional: other (sleeping) Psych: no complaints Head: normocephalic ENMT: mucosa pink and moist Neck: jvd (9 cm water), supple Respiratory: diminished breath sounds (at bases/B) Cardiovascular: regular rate and rhythm Gastrointestinal: non-tender, soft Musculoskeletal: muscle tone (normal) Extremities: edema (none) Neurological: lethargic Results Result Diagram: 05/14/1744805/14/17448 Results 24 hrs Laboratory Tests Test 05/13/17 18:02 05/13/17 20:16 05/14/17 00:31 05/14/17 04:49 Bedside Glucose 223 H 71 114 White Blood Count 8.2 Red Blood Count 3.08 L Hemoglobin 8.7 L Hematocrit 27.8 L Mean Corpuscular Volume 90.3 Mean Corpuscular Hemoglobin 28.2 L Mean Corpuscular Hemoglobin Concent 31.3 L Red Cell Distribution Width 19.9 H Platelet Count 220 # Mean Platelet Volume 11.8 H Neutrophils % 60.2 Lymphocytes % 20.0 Monocytes % 9.1 Eosinophils % 9.3 H Basophils % 0.9 Nucleated Red Blood Cells % 0.0 Neutrophils # 4.9 Lymphocytes # 1.6 Monocytes # 0.7 Eosinophils # 0.8 H Basophils # 0.1 Nucleated Red Blood Cells # 0.0 Sodium Level 135 Potassium Level 4.8 Chloride Level 98 Carbon Dioxide Level 34 H Anion Gap 8 Blood Urea Nitrogen 51 H Creatinine 2.06 H Glucose Level 93 # Calcium Level 8.7 Test 05/14/17 06:19 05/14/17 12:26 Bedside Glucose 104 285 H Medications Medications Current Medications Acetaminophen (Tylenol Tab) 650 mg Q6H PRN GTB PAIN AND OR ELEVATED TEMP Last administered on 05/05/17 12:01; Admin Dose 650 MG; Start 04/17/17 at 18:00 Bisacodyl (Dulcolax Supp) 10 mg Q24H [place] Last administered on 05/13/17 18:09; Admin Dose 10 MG; Start 04/17/17 at 18:00 Diphenhydramine HCl (Benadryl) 25 mg Q6H PRN GTB ITCHING Last administered on 21:41; Admin Dose 25 MG; Start 04/17/17 at 18:00 Hydralazine HCl (Apresoline) 50 mg Q8 PRN GTB ELEVATED BLOOD PRESSURE Last administered on 04/18/17 13:18; Admin Dose 50 MG; Start 04/17/17 at 18:00 Multivitamins Therapeutic (Theragran) 1 tab DAILY GTB Last administered on 05/14 08:21; Admin Dose 1 TAB; Start 04/18/17 at 09:00 Miscellaneous Information 1 ea NOTE XX ; Start 04/17/17 at 21:00 Glucose (Glutose) 15 gm Q15M PRN PO DECREASED GLUCOSE; Start 04/17/17 at 21:00 Glucose (Glutose) 22.5 gm Q15M PRN PO DECREASED GLUCOSE; Start 04/17/17 at 21: 00 Dextrose (D50w Syringe) 25 ml Q15M PRN IV DECREASED GLUCOSE Last administered on 04/20/17 17:22; Admin Dose 25 ML; Start 04/17/17 at 21:00 Dextrose (D50w Syringe) 50 ml Q15M PRN IV DECREASED GLUCOSE Last administered on 05/06/17 06:24; Admin Dose 50 ML; Start 04/17/17 at 21:00 Glucagon (Glucagen) 1 mg Q15M PRN IM DECREASED GLUCOSE; Start 04/17/17 at 21:00 Glucose (Glutose) 15 gm Q15M PRN BUCCAL DECREASED GLUCOSE; Start 04/17/17 at 21 :00 Ondansetron HCl (Zofran Inj) 4 mg Q6H PRN IV NAUSEA AND/OR VOMITING; Start at 00:30 Insulin Aspart (Novolog Insulin Pen) (Adult SC Insulin - Mild Algorithm)... Q6 SC Last administered on 05/14/17 12:33; Admin Dose 4 UNIT; Start 04/20/17 at 00:00 Insulin Glargine (Lantus) 14 unit QHS SC Last administered on 05/13/17 20:33; Admin Dose 14 UNIT; Start 04/20/17 at 21:00 Metoprolol Tartrate (Lopressor) 25 mg BID PO Last administered on 04/28/17 08: 14; Admin Dose 25 MG; Start 04/23/17 at 09:00; Status Future Hold Hydralazine HCl (Apresoline) 10 mg Q4H PRN IV SBP>170; Start 04/22/17 at 22:00 Nitroglycerin (Nitroglycerin (Sl Tab) 0.4 Mg) 1 tab Q5M PRN SL ANGINA; Start at 18:00 Acetaminophen/ Hydrocodone Bitart ([place] (5/325)) 1 tab Q6H PRN PO PAIN LEVEL 4 -7 Last administered on 05/03/17 12:31; Admin Dose 1 TAB; Start 05/03/17 at 03: 30 Acetaminophen (Tylenol Liquid) 650 mg Q4H PRN GTB PAIN AND OR ELEVATED TEMP Last administered on 05/12/17 18:12; Admin Dose 650 MG; Start 05/03/17 at 03:30 Metoclopramide HCl (Reglan) 5 mg TID IV Last administered on 05/14/17 12:27; Admin Dose 5 MG; Start 05/05/17 at 13:00 Amlodipine Besylate (Norvasc) 5 mg DAILY GTB Last administered on 05/14/17 08: 21; Admin Dose 5 MG; Start 05/07/17 at 09:00 Zinc Acetate/ Diphenhydramine (Benadryl 2% Cr) 1 applic Q8 PRN TOP ITCHING Last administered on 05/07/17 12:16; Admin Dose 1 APPLIC; Start 05/07/17 at 11: 00 Lansoprazole (Prevacid) 30 mg BID@06,18 GTB Last administered on 05/14/17 06: 22; Admin Dose 30 MG; Start 05/08/17 at 18:00 Clonidine HCl (Catapres-Tts 1 Patch) 1 patch Q7D TRANSDERM Last administered on 05/08/17 18:01; Admin Dose 1 PATCH; Start 05/08/17 at 15:00 LESLI SHEA May 14, 2017 14:51
--- NOTE | 2017-05-14 16:10 | PN ---
Date/Time of Note Date/Time of Note DATE: 05/14/17 TIME: 16:06 Assessment/Plan VTE Prophylaxis VTE Prophylaxis Intervention: SCD's Lines/Catheters IV [facility]ter [facility]from [facility] [facility] Urinary Cath still in place: Yes Reason Cath still needed: urinary retention Assessment/Plan Chief Complaint/Hosp Course No acute events overnight, patient with one-to-one sitter for safety, continues on hemodialysis 2 times per week Tuesdays and , pending group home facility placement Assessment/Plan - Acute kidney injury on chronic kidney disease. Continue hemodialysis per renal. Dr. Cheema is following in nephrology consultation. - Protein calorie malnutrition, increase G-tube feeding according to manager traffic recommendations - Status post post urinary tract infection. - History of cerebrovascular accident - Diabetes mellitus. Continue Lantus and NovoLog. - Diastolic congestive heart failure. Continue to monitor intake and output. - Paroxysmal atrial fibrillation, currently in sinus rhythm. - Hypertension. Continue Norvasc. - Hyperlipidemia. Continue statin. - Urinary retention with Flores catheter. - Dysphagia, status post PEG placement - Anemia, continue to monitor hemoglobin and hematocrit. Further recommendations based on clinical course. Plan of care discussed with Dr. Patel Problems: Exam/Review of Systems Vital Signs Vitals Vital Signs Date Time Temp Pulse Resp B/P Pulse Ox O2 Delivery O2 Flow Rate FiO2 05/14/17 14:30 98.8 81 16 113/58 96 05/14/17 13:49 21 05/14/17 11:30 Room Air Intake and Output 05/13/17 05/13/17 05/14/17 15:00 23:00 07:00 Intake Total 200 ml 1000 ml 1000 ml Output Total 1000 ml 600 ml 400 ml Balance -800 ml 400 ml 600 ml Exam Constitutional: alert Neck: supple Respiratory: normal air movement Cardiovascular: regular rate and rhythm Gastrointestinal: other, soft Extremities: normal pulses (Tube) Additional Comments Right IJ permacath Results Result Diagram: 05/14/17 0449 05/14/17 0449 Results 24 hrs Laboratory Tests Test 05/13/17 18:02 05/13/17 20:16 05/14/17 00:31 05/14/17 04:49 Bedside Glucose 223 H 71 114 White Blood Count 8.2 Red Blood Count 3.08 L Hemoglobin 8.7 L Hematocrit 27.8 L Mean Corpuscular Volume 90.3 Mean Corpuscular Hemoglobin 28.2 L Mean Corpuscular Hemoglobin Concent 31.3 L Red Cell Distribution Width 19.9 H Platelet Count 220 # Mean Platelet Volume 11.8 H Neutrophils % 60.2 Lymphocytes % 20.0 Monocytes % 9.1 Eosinophils % 9.3 H Basophils % 0.9 Nucleated Red Blood Cells % 0.0 Neutrophils # 4.9 Lymphocytes # 1.6 Monocytes # 0.7 Eosinophils # 0.8 H Basophils # 0.1 Nucleated Red Blood Cells # 0.0 Sodium Level 135 Potassium Level 4.8 Chloride Level 98 Carbon Dioxide Level 34 H Anion Gap 8 Blood Urea Nitrogen 51 H Creatinine 2.06 H Glucose Level 93 # Calcium Level 8.7 Test 05/14/17 06:19 05/14/17 12:26 Bedside Glucose 104 285 H Medications Medications Current Medications Acetaminophen (Tylenol Tab) 650 mg Q6H PRN GTB PAIN AND OR ELEVATED TEMP Last administered on 05/05/17 12:01; Admin Dose 650 MG; Start 04/17/17 at 18:00 Bisacodyl (Dulcolax Supp) 10 mg Q24H [place] Last administered on 05/13/17 18:09; Admin Dose 10 MG; Start 04/17/17 at 18:00 Diphenhydramine HCl (Benadryl) 25 mg Q6H PRN GTB ITCHING Last administered on 21:41; Admin Dose 25 MG; Start 04/17/17 at 18:00 Hydralazine HCl (Apresoline) 50 mg Q8 PRN GTB ELEVATED BLOOD PRESSURE Last administered on 04/18/17 13:18; Admin Dose 50 MG; Start 04/17/17 at 18:00 Multivitamins Therapeutic (Theragran) 1 tab DAILY GTB Last administered on 05/14 08:21; Admin Dose 1 TAB; Start 04/18/17 at 09:00 Miscellaneous Information 1 ea NOTE XX ; Start 04/17/17 at 21:00 Glucose (Glutose) 15 gm Q15M PRN PO DECREASED GLUCOSE; Start 04/17/17 at 21:00 Glucose (Glutose) 22.5 gm Q15M PRN PO DECREASED GLUCOSE; Start 04/17/17 at 21: 00 Dextrose (D50w Syringe) 25 ml Q15M PRN IV DECREASED GLUCOSE Last administered on 04/20/17 17:22; Admin Dose 25 ML; Start 04/17/17 at 21:00 Dextrose (D50w Syringe) 50 ml Q15M PRN IV DECREASED GLUCOSE Last administered on 05/06/17 06:24; Admin Dose 50 ML; Start 04/17/17 at 21:00 Glucagon (Glucagen) 1 mg Q15M PRN IM DECREASED GLUCOSE; Start 04/17/17 at 21:00 Glucose (Glutose) 15 gm Q15M PRN BUCCAL DECREASED GLUCOSE; Start 04/17/17 at 21 :00 Ondansetron HCl (Zofran Inj) 4 mg Q6H PRN IV NAUSEA AND/OR VOMITING; Start at 00:30 Insulin Aspart (Novolog Insulin Pen) (Adult SC Insulin - Mild Algorithm)... Q6 SC Last administered on 05/14/17 12:33; Admin Dose 4 UNIT; Start 04/20/17 at 00:00 Insulin Glargine (Lantus) 14 unit QHS SC Last administered on 05/13/17 20:33; Admin Dose 14 UNIT; Start 04/20/17 at 21:00 Metoprolol Tartrate (Lopressor) 25 mg BID PO Last administered on 04/28/17 08: 14; Admin Dose 25 MG; Start 04/23/17 at 09:00; Status Future Hold Hydralazine HCl (Apresoline) 10 mg Q4H PRN IV SBP>170; Start 04/22/17 at 22:00 Nitroglycerin (Nitroglycerin (Sl Tab) 0.4 Mg) 1 tab Q5M PRN SL ANGINA; Start at 18:00 Acetaminophen/ Hydrocodone Bitart ([place] (5/325)) 1 tab Q6H PRN PO PAIN LEVEL 4 -7 Last administered on 05/03/17 12:31; Admin Dose 1 TAB; Start 05/03/17 at 03: 30 Acetaminophen (Tylenol Liquid) 650 mg Q4H PRN GTB PAIN AND OR ELEVATED TEMP Last administered on 05/12/17 18:12; Admin Dose 650 MG; Start 05/03/17 at 03:30 Metoclopramide HCl (Reglan) 5 mg TID IV Last administered on 05/14/17 12:27; Admin Dose 5 MG; Start 05/05/17 at 13:00 Amlodipine Besylate (Norvasc) 5 mg DAILY GTB Last administered on 05/14/17 08: 21; Admin Dose 5 MG; Start 05/07/17 at 09:00 Zinc Acetate/ Diphenhydramine (Benadryl 2% Cr) 1 applic Q8 PRN TOP ITCHING Last administered on 05/07/17 12:16; Admin Dose 1 APPLIC; Start 05/07/17 at 11: 00 Lansoprazole (Prevacid) 30 mg BID@06,18 GTB Last administered on 05/14/17 06: 22; Admin Dose 30 MG; Start 05/08/17 at 18:00 Clonidine HCl (Catapres-Tts 1 Patch) 1 patch Q7D TRANSDERM Last administered on 05/08/17 18:01; Admin Dose 1 PATCH; Start 05/08/17 at 15:00 GEOVANY IBARRA May 14, 2017 16:10
--- NOTE | 2017-05-14 16:32 | RADRPT ---
Vent Rate: 90 bpm RR Interval: 0 msec CO Interval: 234 msec QRS Duration: 120 msec QT Interval: 402 msec QTC Interval: 491 msec P-R-T [place]: 83 - 83 - 65 degrees Sinus rhythm with 1st degree AV block Right bundle branch block Abnormal ECG Electronically Signed By: Neville Gurrola [id number]
[2017-05-14] MEDS: BISACODYL 10 MG SUPP PR SCH (17:23)
[2017-05-14 20:07] VITALS: BP 126/60; RESP 19
[2017-05-14] MEDS: INSULIN GLARGINE [LANtus] 3 ML PEN SC SCH (20:22)
[2017-05-15] MEDS: ALBUTEROL/IPRATROPIUM (NEB) 3 ML AMP HHN SCH ×4 (01:14→20:04)
[2017-05-15] MEDS: Insulin NOVOLOG SS MILD Algorithm (NPO/TPN/ENTERAL FEEDS) SC SCH ×4 (01:24→18:00)
[2017-05-15 02:01] VITALS: BP 126/57; RESP 18
[2017-05-15 05:37] LABS: BASOPHIL # 0.1 10^3/ul (0.0-0.1); BASOPHILS % 0.8 % (0.0-2.0); EOSINOPHILS # 0.8 10^3/ul (0.0-0.5); HEMATOCRIT 27.8 % (42.0-52.0); HEMOGLOBIN 8.8 g/dl (14.0-18.0); MEAN CORPUSCULAR HEMOGLOBIN 28.3 pg (29.0-33.0); MEAN CORPUSCULAR HGB CONC 31.7 g/dl (32.0-37.0); MEAN CORPUSCULAR VOLUME 89.4 fl (82.0-101.0); MEAN PLATELET VOLUME 11.6 fl (7.4-10.4); MONOCYTE # 0.8 10^3/ul (0.3-0.9); NEUTROPHIL # 5.3 10^3/ul (1.6-7.5); NEUTROPHILS % 58.8 % (39.0-77.0); PLATELET COUNT 253 10^3/UL (140-415); RED BLOOD COUNT 3.11 10^6/ul (4.70-6.10); RED CELL DISTRIBUTION WIDTH 19.9 % (11.5-14.5); WHITE BLOOD COUNT 8.9 10^3/ul (4.8-10.8)
[2017-05-15] MEDS: FUROSEMIDE 20 MG INJ IV SCH ×2 (05:46→17:27)
[2017-05-15] MEDS: LANSOPRAZOLE 30 MG CAP GTB SCH ×2 (05:46→18:32)
[2017-05-15 06:16] LABS: CALCIUM 8.4 mg/dl (8.4-10.2); CREATININE 2.8 mg/dl (0.61-1.24); POTASSIUM 5.4 mmol/L (3.5-5.1)
[2017-05-15 08:21] VITALS: BP 140/66; RESP 20
[2017-05-15] MEDS: METOCLOPRAMIDE 10 MG INJ IV SCH ×3 (10:37→21:41)
[2017-05-15] MEDS: MULTIVITAMINS THERAPEUTIC TAB GTB SCH (10:37)
[2017-05-15] MEDS: AMLODIPINE 5 MG TAB GTB SCH (10:37)
--- NOTE | 2017-05-15 13:50 | CONS ---
Date/Time of Note Date/Time of Note DATE: 05/15/17 TIME: 13:49 Assessment/Plan Assessment/Plan Chief Complaint/Hosp Course 1.BISI on CKD s/p Hd initiated on 05/06 2.Hypernatremia >improving 3.HTN 4 Ecoli UTI 5 Sepsis due to #4 6 Chronic Afib 7 CVA s/p G tube placement 8 Renal cyst 9 Hyperphosphatemia. 10 Leukocytosis> work up per ID Problems: Additional Assessment/Plan 1. continue HD 2. Optimization of kidney function Consultation Date/Type/Reason Admit Date/Time Apr 17, 2017 at 16:39 Initial Consult Date 04/18/17 Type of Consultation: nephrology Reason for Consultation Dr Cheema Referring Provider: PORTIA OLIVER MD Exam/Review of Systems Vital Signs Vitals Vital Signs Date Time Temp Pulse Resp B/P Pulse Ox O2 Delivery O2 Flow Rate FiO2 05/15/17 13:07 83 20 97 21 05/15/17 08:21 97.6 140/66 05/14/17 11:30 Room Air Intake and Output 05/14/17 05/14/17 05/15/17 15:00 23:00 07:00 Intake Total 1180 ml 1050 ml Output Total 600 ml 400 ml Balance 580 ml 650 ml Exam trashing in the bed Constitutional: frail Psych: confusion ENMT: nl external ears & nose Respiratory: diminished breath sounds Cardiovascular: regular rate and rhythm Results Result Diagram: 05/15/17 0421 05/15/17 0440 Results 24 hrs Laboratory Tests Test 05/14/17 20:20 05/15/17 00:32 05/15/17 01:05 05/15/17 04:21 Bedside Glucose 248 H 163 155 White Blood Count 8.9 Red Blood Count 3.11 L Hemoglobin 8.8 L Hematocrit 27.8 L Mean Corpuscular Volume 89.4 Mean Corpuscular Hemoglobin 28.3 L Mean Corpuscular Hemoglobin Concent 31.7 L Red Cell Distribution Width 19.9 H Platelet Count 253 Mean Platelet Volume 11.6 H Neutrophils % 58.8 Lymphocytes % 22.0 Monocytes % 9.0 Eosinophils % 9.0 H Basophils % 0.8 Nucleated Red Blood Cells % 0.0 Neutrophils # 5.3 Lymphocytes # 2.0 Monocytes # 0.8 Eosinophils # 0.8 H Basophils # 0.1 Nucleated Red Blood Cells # 0.0 Test 05/15/17 04:40 05/15/17 05:40 Sodium Level 137 Potassium Level 5.4 H Chloride Level 99 Carbon Dioxide Level 33 H Anion Gap 10 Blood Urea Nitrogen 69 H Creatinine 2.80 H Glucose Level 140 # Calcium Level 8.4 Bedside Glucose 188 Medications Medications Current Medications Acetaminophen (Tylenol Tab) 650 mg Q6H PRN GTB PAIN AND OR ELEVATED TEMP Last administered on 05/05/17 12:01; Admin Dose 650 MG; Start 04/17/17 at 18:00 Bisacodyl (Dulcolax Supp) 10 mg Q24H [place] Last administered on 05/14/17 17:23; Admin Dose 10 MG; Start 04/17/17 at 18:00 Diphenhydramine HCl (Benadryl) 25 mg Q6H PRN GTB ITCHING Last administered on 21:41; Admin Dose 25 MG; Start 04/17/17 at 18:00 Hydralazine HCl (Apresoline) 50 mg Q8 PRN GTB ELEVATED BLOOD PRESSURE Last administered on 04/18/17 13:18; Admin Dose 50 MG; Start 04/17/17 at 18:00 Multivitamins Therapeutic (Theragran) 1 tab DAILY GTB Last administered on 05/15 10:37; Admin Dose 1 TAB; Start 04/18/17 at 09:00 Miscellaneous Information 1 ea NOTE XX ; Start 04/17/17 at 21:00 Glucose (Glutose) 15 gm Q15M PRN PO DECREASED GLUCOSE; Start 04/17/17 at 21:00 Glucose (Glutose) 22.5 gm Q15M PRN PO DECREASED GLUCOSE; Start 04/17/17 at 21: 00 Dextrose (D50w Syringe) 25 ml Q15M PRN IV DECREASED GLUCOSE Last administered on 04/20/17 17:22; Admin Dose 25 ML; Start 04/17/17 at 21:00 Dextrose (D50w Syringe) 50 ml Q15M PRN IV DECREASED GLUCOSE Last administered on 05/06/17 06:24; Admin Dose 50 ML; Start 04/17/17 at 21:00 Glucagon (Glucagen) 1 mg Q15M PRN IM DECREASED GLUCOSE; Start 04/17/17 at 21:00 Glucose (Glutose) 15 gm Q15M PRN BUCCAL DECREASED GLUCOSE; Start 04/17/17 at 21 :00 Ondansetron HCl (Zofran Inj) 4 mg Q6H PRN IV NAUSEA AND/OR VOMITING; Start at 00:30 Insulin Aspart (Novolog Insulin Pen) (Adult SC Insulin - Mild Algorithm)... Q6 SC Last administered on 05/15/17 05:48; Admin Dose 2 UNIT; Start 04/20/17 at 00:00 Insulin Glargine (Lantus) 14 unit QHS SC Last administered on 05/14/17 20:22; Admin Dose 14 UNIT; Start 04/20/17 at 21:00 Metoprolol Tartrate (Lopressor) 25 mg BID PO Last administered on 04/28/17 08: 14; Admin Dose 25 MG; Start 04/23/17 at 09:00; Status Future Hold Hydralazine HCl (Apresoline) 10 mg Q4H PRN IV SBP>170; Start 04/22/17 at 22:00 Nitroglycerin (Nitroglycerin (Sl Tab) 0.4 Mg) 1 tab Q5M PRN SL ANGINA; Start at 18:00 Acetaminophen/ Hydrocodone Bitart ([place] (5/325)) 1 tab Q6H PRN PO PAIN LEVEL 4 -7 Last administered on 05/03/17 12:31; Admin Dose 1 TAB; Start 05/03/17 at 03: 30 Acetaminophen (Tylenol Liquid) 650 mg Q4H PRN GTB PAIN AND OR ELEVATED TEMP Last administered on 05/12/17 18:12; Admin Dose 650 MG; Start 05/03/17 at 03:30 Metoclopramide HCl (Reglan) 5 mg TID IV Last administered on 05/15/17 10:37; Admin Dose 5 MG; Start 05/05/17 at 13:00 Amlodipine Besylate (Norvasc) 5 mg DAILY GTB Last administered on 05/15/17 10: 37; Admin Dose 5 MG; Start 05/07/17 at 09:00 Zinc Acetate/ Diphenhydramine (Benadryl 2% Cr) 1 applic Q8 PRN TOP ITCHING Last administered on 05/07/17 12:16; Admin Dose 1 APPLIC; Start 05/07/17 at 11: 00 Lansoprazole (Prevacid) 30 mg BID@06,18 GTB Last administered on 05/15/17 05: 46; Admin Dose 30 MG; Start 05/08/17 at 18:00 Clonidine HCl (Catapres-Tts 1 Patch) 1 patch Q7D TRANSDERM Last administered on 05/08/17 18:01; Admin Dose 1 PATCH; Start 05/08/17 at 15:00 CHELSIE HERNÁNDEZ May 15, 2017 13:50
[2017-05-15] MEDS: CLONIDINE 0.1 MG/24 HR PATCH TRANSDERM SCH (15:11)
[2017-05-15 15:16] VITALS: BP 128/72; PULSE 88; RESP 18
--- NOTE | 2017-05-15 15:24 | CONS ---
Date/Time of Note Date/Time of Note DATE: 05/15/17 TIME: 15:22 Assessment/Plan Assessment/Plan Additional Assessment/Plan 1.HTN-reasonable control 2.H/O PAF-Remains in SR at this time by exam 3.renal failure 4.dysphagia 5. AMS 6. Heart emhew-qjzngpubi-iezmru HR.improved with holding BB overall some intermittent recurrence 7. Chest pain-resolved/negative troponin/no change on serial ecg 8. Occasional PVC's 9. CHF-diastolic acute on chronic 10.UTI 11.anemia REcc: Same Rx Consultation Date/Type/Reason Admit Date/Time Apr 17, 2017 at 16:39 Initial Consult Date 04/18/17 Type of Consultation: nephrology Referring Provider: PORTIA OLIVER MD 24 HR Interval Summary Free Text/Dictation Non Verbal Exam/Review of Systems Vital Signs Vitals Vital Signs Date Time Temp Pulse Resp B/P Pulse Ox O2 Delivery O2 Flow Rate FiO2 05/15/17 15:16 98.0 88 18 128/72 98 Room Air 05/15/17 13:07 21 Intake and Output 05/14/17 05/14/17 05/15/17 15:00 23:00 07:00 Intake Total 1180 ml 1050 ml Output Total 600 ml 400 ml Balance 580 ml 650 ml Exam General: WN/WD HEENT: Unicetric/atraumatic/ no assymetry NECK: JVD not elevated, no thyromegaly, carotids revealed normal upstrokes Lymph: no lymphadenopathy HEART: regular with no S3, I/ systolic murmur at apex LUNGS: clear ABD: soft, NT, ND, +BS, no organomegaly SKIN: no leisons EXT: no edema Results Result Diagram: 05/15/17 0421 05/15/17 0440 Results 24 hrs Laboratory Tests Test 05/14/17 20:20 05/15/17 00:32 05/15/17 01:05 05/15/17 04:21 Bedside Glucose 248 H 163 155 White Blood Count 8.9 Red Blood Count 3.11 L Hemoglobin 8.8 L Hematocrit 27.8 L Mean Corpuscular Volume 89.4 Mean Corpuscular Hemoglobin 28.3 L Mean Corpuscular Hemoglobin Concent 31.7 L Red Cell Distribution Width 19.9 H Platelet Count 253 Mean Platelet Volume 11.6 H Neutrophils % 58.8 Lymphocytes % 22.0 Monocytes % 9.0 Eosinophils % 9.0 H Basophils % 0.8 Nucleated Red Blood Cells % 0.0 Neutrophils # 5.3 Lymphocytes # 2.0 Monocytes # 0.8 Eosinophils # 0.8 H Basophils # 0.1 Nucleated Red Blood Cells # 0.0 Test 05/15/17 04:40 05/15/17 05:40 05/15/17 15:06 Sodium Level 137 Potassium Level 5.4 H Chloride Level 99 Carbon Dioxide Level 33 H Anion Gap 10 Blood Urea Nitrogen 69 H Creatinine 2.80 H Glucose Level 140 # Calcium Level 8.4 Bedside Glucose 188 136 Medications Medications Current Medications Acetaminophen (Tylenol Tab) 650 mg Q6H PRN GTB PAIN AND OR ELEVATED TEMP Last administered on 05/05/17 12:01; Admin Dose 650 MG; Start 04/17/17 at 18:00 Bisacodyl (Dulcolax Supp) 10 mg Q24H [place] Last administered on 05/14/17 17:23; Admin Dose 10 MG; Start 04/17/17 at 18:00 Diphenhydramine HCl (Benadryl) 25 mg Q6H PRN GTB ITCHING Last administered on 21:41; Admin Dose 25 MG; Start 04/17/17 at 18:00 Hydralazine HCl (Apresoline) 50 mg Q8 PRN GTB ELEVATED BLOOD PRESSURE Last administered on 04/18/17 13:18; Admin Dose 50 MG; Start 04/17/17 at 18:00 Multivitamins Therapeutic (Theragran) 1 tab DAILY GTB Last administered on 05/15 10:37; Admin Dose 1 TAB; Start 04/18/17 at 09:00 Miscellaneous Information 1 ea NOTE XX ; Start 04/17/17 at 21:00 Glucose (Glutose) 15 gm Q15M PRN PO DECREASED GLUCOSE; Start 04/17/17 at 21:00 Glucose (Glutose) 22.5 gm Q15M PRN PO DECREASED GLUCOSE; Start 04/17/17 at 21: 00 Dextrose (D50w Syringe) 25 ml Q15M PRN IV DECREASED GLUCOSE Last administered on 04/20/17 17:22; Admin Dose 25 ML; Start 04/17/17 at 21:00 Dextrose (D50w Syringe) 50 ml Q15M PRN IV DECREASED GLUCOSE Last administered on 05/06/17 06:24; Admin Dose 50 ML; Start 04/17/17 at 21:00 Glucagon (Glucagen) 1 mg Q15M PRN IM DECREASED GLUCOSE; Start 04/17/17 at 21:00 Glucose (Glutose) 15 gm Q15M PRN BUCCAL DECREASED GLUCOSE; Start 04/17/17 at 21 :00 Ondansetron HCl (Zofran Inj) 4 mg Q6H PRN IV NAUSEA AND/OR VOMITING; Start at 00:30 Insulin Aspart (Novolog Insulin Pen) (Adult SC Insulin - Mild Algorithm)... Q6 SC Last administered on 05/15/17 05:48; Admin Dose 2 UNIT; Start 04/20/17 at 00:00 Insulin Glargine (Lantus) 14 unit QHS SC Last administered on 05/14/17 20:22; Admin Dose 14 UNIT; Start 04/20/17 at 21:00 Metoprolol Tartrate (Lopressor) 25 mg BID PO Last administered on 04/28/17 08: 14; Admin Dose 25 MG; Start 04/23/17 at 09:00; Status Future Hold Hydralazine HCl (Apresoline) 10 mg Q4H PRN IV SBP>170; Start 04/22/17 at 22:00 Nitroglycerin (Nitroglycerin (Sl Tab) 0.4 Mg) 1 tab Q5M PRN SL ANGINA; Start at 18:00 Acetaminophen/ Hydrocodone Bitart ([place] (5/325)) 1 tab Q6H PRN PO PAIN LEVEL 4 -7 Last administered on 05/03/17 12:31; Admin Dose 1 TAB; Start 05/03/17 at 03: 30 Acetaminophen (Tylenol Liquid) 650 mg Q4H PRN GTB PAIN AND OR ELEVATED TEMP Last administered on 05/12/17 18:12; Admin Dose 650 MG; Start 05/03/17 at 03:30 Metoclopramide HCl (Reglan) 5 mg TID IV Last administered on 05/15/17 15:08; Admin Dose 5 MG; Start 05/05/17 at 13:00 Amlodipine Besylate (Norvasc) 5 mg DAILY GTB Last administered on 05/15/17 10: 37; Admin Dose 5 MG; Start 05/07/17 at 09:00 Zinc Acetate/ Diphenhydramine (Benadryl 2% Cr) 1 applic Q8 PRN TOP ITCHING Last administered on 05/07/17 12:16; Admin Dose 1 APPLIC; Start 05/07/17 at 11: 00 Lansoprazole (Prevacid) 30 mg BID@06,18 GTB Last administered on 05/15/17 05: 46; Admin Dose 30 MG; Start 05/08/17 at 18:00 Clonidine HCl (Catapres-Tts 1 Patch) 1 patch Q7D TRANSDERM Last administered on 05/15/17 15:11; Admin Dose 1 PATCH; Start 05/08/17 at 15:00 DEBORAH GLASER MD May 15, 2017 15:24
--- NOTE | 2017-05-15 16:22 | PN ---
Date/Time of Note Date/Time of Note DATE: 05/15/17 TIME: 16:18 Assessment/Plan VTE Prophylaxis VTE Prophylaxis Intervention: SCD's Lines/Catheters IV Catheter Type (from [facility] Saline Lock Urinary Cath still in place: Yes Reason Cath still needed: urinary retention Assessment/Plan Assessment/Plan - Hyperkalemia - Kayexalate 15 gm po x1, bmp am - Acute kidney injury on chronic kidney disease. Continue hemodialysis per renal. Dr. Cheema is following in nephrology consultation. 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 - History of cerebrovascular accident - Diabetes mellitus. Continue Lantus and NovoLog. - Diastolic congestive heart failure. Continue to monitor intake and output. - Paroxysmal atrial fibrillation, currently in sinus rhythm. - Hypertension. Continue Norvasc. - Hyperlipidemia. Continue statin. - Urinary retention with Flores catheter. - Dysphagia, status post PEG placement - Anemia, continue to monitor hemoglobin and hematocrit. Further recommendations based on clinical course. Plan of care discussed with Dr. Patel Subjective 24 Hr Interval Summary Free Text/Dictation afebrile, [id number]- kayexalate 15 gm via gt x 1; 1:1 sitter for safety as he pulls his HD catheter- refused benadryl today as he stated feel fine, on HD X2 /Week, pending [facility]- No acute events overnight, Respiratory: no complaints Cardiovascular: no complaints Gastrointestinal: no complaints Exam/Review of Systems Vital Signs Vitals Vital Signs Date Time Temp Pulse Resp B/P Pulse Ox O2 Delivery O2 Flow Rate FiO2 05/15/17 15:16 98.0 88 18 128/72 98 Room Air 05/15/17 13:07 21 Intake and Output 05/14/17 05/14/17 05/15/17 15:00 23:00 07:00 Intake Total 1180 ml 1050 ml Output Total 600 ml 400 ml Balance 580 ml 650 ml Exam Constitutional: alert Respiratory: clear to auscultation, normal air movement Cardiovascular: nl pulses, regular rate and rhythm Gastrointestinal: non-tender, soft Musculoskeletal: nl extremities to inspection Extremities: normal pulses Neurological: confused, nl mental status Results Result Diagram: 05/15/17 0421 05/15/17 0440 Results 24 hrs Laboratory Tests Test 05/14/17 20:20 05/15/17 00:32 05/15/17 01:05 05/15/17 04:21 Bedside Glucose 248 H 163 155 White Blood Count 8.9 Red Blood Count 3.11 L Hemoglobin 8.8 L Hematocrit 27.8 L Mean Corpuscular Volume 89.4 Mean Corpuscular Hemoglobin 28.3 L Mean Corpuscular Hemoglobin Concent 31.7 L Red Cell Distribution Width 19.9 H Platelet Count 253 Mean Platelet Volume 11.6 H Neutrophils % 58.8 Lymphocytes % 22.0 Monocytes % 9.0 Eosinophils % 9.0 H Basophils % 0.8 Nucleated Red Blood Cells % 0.0 Neutrophils # 5.3 Lymphocytes # 2.0 Monocytes # 0.8 Eosinophils # 0.8 H Basophils # 0.1 Nucleated Red Blood Cells # 0.0 Test 05/15/17 04:40 05/15/17 05:40 05/15/17 15:06 Sodium Level 137 Potassium Level 5.4 H Chloride Level 99 Carbon Dioxide Level 33 H Anion Gap 10 Blood Urea Nitrogen 69 H Creatinine 2.80 H Glucose Level 140 # Calcium Level 8.4 Bedside Glucose 188 136 Medications Medications Current Medications Acetaminophen (Tylenol Tab) 650 mg Q6H PRN GTB PAIN AND OR ELEVATED TEMP Last administered on 05/05/17 12:01; Admin Dose 650 MG; Start 04/17/17 at 18:00 Bisacodyl (Dulcolax Supp) 10 mg Q24H [place] Last administered on 05/14/17 17:23; Admin Dose 10 MG; Start 04/17/17 at 18:00 Diphenhydramine HCl (Benadryl) 25 mg Q6H PRN GTB ITCHING Last administered on 21:41; Admin Dose 25 MG; Start 04/17/17 at 18:00 Hydralazine HCl (Apresoline) 50 mg Q8 PRN GTB ELEVATED BLOOD PRESSURE Last administered on 04/18/17 13:18; Admin Dose 50 MG; Start 04/17/17 at 18:00 Multivitamins Therapeutic (Theragran) 1 tab DAILY GTB Last administered on 05/15 10:37; Admin Dose 1 TAB; Start 04/18/17 at 09:00 Miscellaneous Information 1 ea NOTE XX ; Start 04/17/17 at 21:00 Glucose (Glutose) 15 gm Q15M PRN PO DECREASED GLUCOSE; Start 04/17/17 at 21:00 Glucose (Glutose) 22.5 gm Q15M PRN PO DECREASED GLUCOSE; Start 04/17/17 at 21: 00 Dextrose (D50w Syringe) 25 ml Q15M PRN IV DECREASED GLUCOSE Last administered on 04/20/17 17:22; Admin Dose 25 ML; Start 04/17/17 at 21:00 Dextrose (D50w Syringe) 50 ml Q15M PRN IV DECREASED GLUCOSE Last administered on 05/06/17 06:24; Admin Dose 50 ML; Start 04/17/17 at 21:00 Glucagon (Glucagen) 1 mg Q15M PRN IM DECREASED GLUCOSE; Start 04/17/17 at 21:00 Glucose (Glutose) 15 gm Q15M PRN BUCCAL DECREASED GLUCOSE; Start 04/17/17 at 21 :00 Ondansetron HCl (Zofran Inj) 4 mg Q6H PRN IV NAUSEA AND/OR VOMITING; Start at 00:30 Insulin Aspart (Novolog Insulin Pen) (Adult SC Insulin - Mild Algorithm)... Q6 [place] Last administered on 05/15/17 05:48; Admin Dose 2 UNIT; Start 04/20/17 at 00:00 Insulin Glargine (Lantus) 14 unit QHS [place] Last administered on 05/14/17 20:22; Admin Dose 14 UNIT; Start 04/20/17 at 21:00 Metoprolol Tartrate (Lopressor) 25 mg BID PO Last administered on 04/28/17 08: 14; Admin Dose 25 MG; Start 04/23/17 at 09:00; Status Future Hold Hydralazine HCl (Apresoline) 10 mg Q4H PRN IV SBP>170; Start 04/22/17 at 22:00 Nitroglycerin (Nitroglycerin (Sl Tab) 0.4 Mg) 1 tab Q5M PRN SL ANGINA; Start at 18:00 Acetaminophen/ Hydrocodone Bitart ([place] (5/325)) 1 tab Q6H PRN PO PAIN LEVEL 4 -7 Last administered on 05/03/17 12:31; Admin Dose 1 TAB; Start 05/03/17 at 03: 30 Acetaminophen (Tylenol Liquid) 650 mg Q4H PRN GTB PAIN AND OR ELEVATED TEMP Last administered on 05/12/17 18:12; Admin Dose 650 MG; Start 05/03/17 at 03:30 Metoclopramide HCl (Reglan) 5 mg TID IV Last administered on 05/15/17 15:08; Admin Dose 5 MG; Start 05/05/17 at 13:00 Amlodipine Besylate (Norvasc) 5 mg DAILY GTB Last administered on 05/15/17 10: 37; Admin Dose 5 MG; Start 05/07/17 at 09:00 Zinc Acetate/ Diphenhydramine (Benadryl 2% Cr) 1 applic Q8 PRN TOP ITCHING Last administered on 05/07/17 12:16; Admin Dose 1 APPLIC; Start 05/07/17 at 11: 00 Lansoprazole (Prevacid) 30 mg BID@06,18 GTB Last administered on 05/15/17 05: 46; Admin Dose 30 MG; Start 05/08/17 at 18:00 Clonidine HCl (Catapres-Tts 1 Patch) 1 patch Q7D TRANSDERM Last administered on 05/15/17 15:11; Admin Dose 1 PATCH; Start 05/08/17 at 15:00 MARCY WEINER May 15, 2017 16:21
[2017-05-15] MEDS ORDERED: NA POLYST SULFON 15 GM/60 ML BTL PO ONE (16:30)
[2017-05-15] MEDS: BISACODYL 10 MG SUPP PR SCH (18:32)
[2017-05-15 19:30] VITALS: BP 137/63; RESP 16
[2017-05-15] MEDS: INSULIN GLARGINE [LANtus] 3 ML PEN SC SCH (21:45)
[2017-05-16] MEDS: Insulin NOVOLOG SS MILD Algorithm (NPO/TPN/ENTERAL FEEDS) SC SCH ×4 (00:40→18:00)
[2017-05-16] MEDS ORDERED: VITAMIN A & D 5 GM OINT PACKET TOP ONE (00:56)
[2017-05-16] MEDS: ALBUTEROL/IPRATROPIUM (NEB) 3 ML AMP HHN SCH ×4 (01:43→19:45)
[2017-05-16 02:08] VITALS: BP 111/59; RESP 18
[2017-05-16 05:27] LABS: BASOPHIL # 0.1 10^3/ul (0.0-0.1); BASOPHILS % 0.9 % (0.0-2.0); EOSINOPHILS # 0.9 10^3/ul (0.0-0.5); EOSINOPHILS % 11.1 % (0.0-7.0); HEMATOCRIT 25.9 % (42.0-52.0); HEMOGLOBIN 8.2 g/dl (14.0-18.0); LYMPHOCYTES # 1.7 10^3/ul (0.8-2.9); LYMPHOCYTES % 21.1 % (15.0-51.0); MEAN CORPUSCULAR HEMOGLOBIN 28.2 pg (29.0-33.0); MEAN CORPUSCULAR HGB CONC 31.7 g/dl (32.0-37.0); MEAN PLATELET VOLUME 11.9 fl (7.4-10.4); MONOCYTE # 0.8 10^3/ul (0.3-0.9); MONOCYTES % 10.3 % (0.0-11.0); NEUTROPHIL # 4.4 10^3/ul (1.6-7.5); NEUTROPHILS % 56.2 % (39.0-77.0); PLATELET COUNT 285 10^3/UL (140-415); RED BLOOD COUNT 2.91 10^6/ul (4.70-6.10); RED CELL DISTRIBUTION WIDTH 19.7 % (11.5-14.5); WHITE BLOOD COUNT 7.9 10^3/ul (4.8-10.8)
[2017-05-16 05:46] LABS: CALCIUM 8.1 mg/dl (8.4-10.2); CREATININE 3.45 mg/dl (0.61-1.24)
[2017-05-16] MEDS: FUROSEMIDE 20 MG INJ IV SCH (06:18)
[2017-05-16] MEDS: LANSOPRAZOLE 30 MG CAP GTB SCH ×2 (06:18→17:52)
[2017-05-16 08:10] VITALS: BP 116/56; RESP 18
[2017-05-16] MEDS: MULTIVITAMINS THERAPEUTIC TAB GTB SCH (09:23)
[2017-05-16] MEDS: AMLODIPINE 5 MG TAB GTB SCH (09:23)
[2017-05-16] MEDS: METOCLOPRAMIDE 10 MG INJ IV SCH ×3 (09:23→21:06)
[2017-05-16] MEDS: DIPHENHYDRAMINE 2%/ZINC 28.4 GM CR TOP PRN (10:44)
--- NOTE | 2017-05-16 12:19 | CONS ---
Date/Time of Note Date/Time of Note DATE: 05/16/17 TIME: 12:17 Assessment/Plan Assessment/Plan Chief Complaint/Hosp Course 1. ESRD Hd initiated on 05/06 2.Hypernatremia >improving 3.HTN, controlled 4 Ecoli UTI 5. Sepsis due to #4 6. Chronic Afib 7. CVA s/p G tube placement 8. Renal cyst 9 Hyperphosphatemia. Problems: Additional Assessment/Plan 1. continue Hd 2. Continue tube feeding 3. Placement issue Consultation Date/Type/Reason Admit Date/Time Apr 17, 2017 at 16:39 Initial Consult Date 04/18/17 Type of Consultation: nephrology Reason for Consultation Dr Cheema Referring Provider: PORTIA OLIVER MD Exam/Review of Systems Vital Signs Vitals Vital Signs Date Time Temp Pulse Resp B/P Pulse Ox O2 Delivery O2 Flow Rate FiO2 05/16/17 10:15 70 16 97 21 05/16/17 08:10 97.9 116/56 05/15/17 15:16 Room Air Intake and Output 05/15/17 05/15/17 05/16/17 15:00 23:00 07:00 Intake Total 1030 ml 1130 ml Output Total 750 ml 650 ml Balance 280 ml 480 ml Exam Constitutional: frail Respiratory: diminished breath sounds Gastrointestinal: other (gt), soft Neurological: confused Results Result Diagram: 05/16/17 0450 05/16/17 0450 Results 24 hrs Laboratory Tests Test 05/15/17 15:06 05/15/17 21:40 05/16/17 00:35 05/16/17 04:50 Bedside Glucose 136 208 219 White Blood Count 7.9 Red Blood Count 2.91 L Hemoglobin 8.2 L Hematocrit 25.9 L Mean Corpuscular Volume 89.0 Mean Corpuscular Hemoglobin 28.2 L Mean Corpuscular Hemoglobin Concent 31.7 L Red Cell Distribution Width 19.7 H Platelet Count 285 Mean Platelet Volume 11.9 H Neutrophils % 56.2 Lymphocytes % 21.1 Monocytes % 10.3 Eosinophils % 11.1 H Basophils % 0.9 Nucleated Red Blood Cells % 0.0 Neutrophils # 4.4 Lymphocytes # 1.7 Monocytes # 0.8 Eosinophils # 0.9 H Basophils # 0.1 Nucleated Red Blood Cells # 0.0 Sodium Level 139 Potassium Level 5.0 Chloride Level 99 Carbon Dioxide Level 33 H Anion Gap 12 Blood Urea Nitrogen 85 H Creatinine 3.45 H Glucose Level 161 Calcium Level 8.1 L Test 05/16/17 06:17 05/16/17 11:57 Bedside Glucose 167 238 H Medications Medications Current Medications Acetaminophen (Tylenol Tab) 650 mg Q6H PRN GTB PAIN AND OR ELEVATED TEMP Last administered on 05/05/17 12:01; Admin Dose 650 MG; Start 04/17/17 at 18:00 Bisacodyl (Dulcolax Supp) 10 mg Q24H [place] Last administered on 05/15/17 18:32; Admin Dose 10 MG; Start 04/17/17 at 18:00 Diphenhydramine HCl (Benadryl) 25 mg Q6H PRN GTB ITCHING Last administered on 21:41; Admin Dose 25 MG; Start 04/17/17 at 18:00 Hydralazine HCl (Apresoline) 50 mg Q8 PRN GTB ELEVATED BLOOD PRESSURE Last administered on 04/18/17 13:18; Admin Dose 50 MG; Start 04/17/17 at 18:00 Multivitamins Therapeutic (Theragran) 1 tab DAILY GTB Last administered on 05/16 09:23; Admin Dose 1 TAB; Start 04/18/17 at 09:00 Miscellaneous Information 1 ea NOTE XX ; Start 04/17/17 at 21:00 Glucose (Glutose) 15 gm Q15M PRN PO DECREASED GLUCOSE; Start 04/17/17 at 21:00 Glucose (Glutose) 22.5 gm Q15M PRN PO DECREASED GLUCOSE; Start 04/17/17 at 21: 00 Dextrose (D50w Syringe) 25 ml Q15M PRN IV DECREASED GLUCOSE Last administered on 04/20/17 17:22; Admin Dose 25 ML; Start 04/17/17 at 21:00 Dextrose (D50w Syringe) 50 ml Q15M PRN IV DECREASED GLUCOSE Last administered on 05/06/17 06:24; Admin Dose 50 ML; Start 04/17/17 at 21:00 Glucagon (Glucagen) 1 mg Q15M PRN IM DECREASED GLUCOSE; Start 04/17/17 at 21:00 Glucose (Glutose) 15 gm Q15M PRN BUCCAL DECREASED GLUCOSE; Start 04/17/17 at 21 :00 Ondansetron HCl (Zofran Inj) 4 mg Q6H PRN IV NAUSEA AND/OR VOMITING; Start at 00:30 Insulin Aspart (Novolog Insulin Pen) (Adult SC Insulin - Mild Algorithm)... Q6 [place] Last administered on 05/16/17 12:09; Admin Dose 3 UNIT; Start 04/20/17 at 00:00 Insulin Glargine (Lantus) 14 unit QHS [place] Last administered on 05/15/17 21:45; Admin Dose 14 UNIT; Start 04/20/17 at 21:00 Metoprolol Tartrate (Lopressor) 25 mg BID PO Last administered on 04/28/17 08: 14; Admin Dose 25 MG; Start 04/23/17 at 09:00; Status Future Hold Hydralazine HCl (Apresoline) 10 mg Q4H PRN IV SBP>170; Start 04/22/17 at 22:00 Nitroglycerin (Nitroglycerin (Sl Tab) 0.4 Mg) 1 tab Q5M PRN SL ANGINA; Start at 18:00 Acetaminophen/ Hydrocodone Bitart ([place] (5/325)) 1 tab Q6H PRN PO PAIN LEVEL 4 -7 Last administered on 05/03/17 12:31; Admin Dose 1 TAB; Start 05/03/17 at 03: 30 Acetaminophen (Tylenol Liquid) 650 mg Q4H PRN GTB PAIN AND OR ELEVATED TEMP Last administered on 05/12/17 18:12; Admin Dose 650 MG; Start 05/03/17 at 03:30 Metoclopramide HCl (Reglan) 5 mg TID IV Last administered on 05/16/17 09:23; Admin Dose 5 MG; Start 05/05/17 at 13:00 Amlodipine Besylate (Norvasc) 5 mg DAILY GTB Last administered on 05/16/17 09: 23; Admin Dose 5 MG; Start 05/07/17 at 09:00 Zinc Acetate/ Diphenhydramine (Benadryl 2% Cr) 1 applic Q8 PRN TOP ITCHING Last administered on 05/16/17 10:44; Admin Dose 1 APPLIC; Start 05/07/17 at 11: 00 Lansoprazole (Prevacid) 30 mg BID@,18 GTB Last administered on 05/16/17 06: 18; Admin Dose 30 MG; Start 05/08/17 at 18:00 Clonidine HCl (Catapres-Tts 1 Patch) 1 patch Q7D TRANSDERM Last administered on 05/15/17 15:11; Admin Dose 1 PATCH; Start 05/08/17 at 15:00 CHELSIE HERNÁNDEZ May 16, 2017 12:19
[2017-05-16 14:28] VITALS: BP 106/56; RESP 20
--- NOTE | 2017-05-16 14:58 | PN ---
Date/Time of Note Date/Time of Note DATE: 05/16/17 TIME: 14:53 Assessment/Plan VTE Prophylaxis VTE Prophylaxis Intervention: SCD's Lines/Catheters IV Catheter Type (from [facility]): Saline Lock Urinary Cath still in place: Yes Reason Cath still needed: urinary retention Assessment/Plan Assessment/Plan - Hyperkalemia- resolved - Hyperglycemia sec to [place] - Novolog 5 units q6hr SQ - Acute kidney injury on chronic kidney disease. Continue hemodialysis per renal. Dr. Cheema is following in nephrology consultation. 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 - History of cerebrovascular accident - Diabetes mellitus. Continue Lantus and NovoLog. - Diastolic congestive heart failure. Continue to monitor intake and output. - Paroxysmal atrial fibrillation, currently in sinus rhythm. - Hypertension. Continue Norvasc. - Hyperlipidemia. Continue statin. - Urinary retention with Flores catheter. - Dysphagia, status post PEG placement - aspiration precautions - Anemia, continue to monitor hemoglobin and hematocrit. Further recommendations based on clinical course. Plan of care discussed with Dr. Patel Subjective 24 Hr Interval Summary Free Text/Dictation afebrile,nad, 1:1 sitter for safety as he pulls his HD catheter, on HD X2 /Week , Hyperglycemia- will add Novolog 5 units sc q6 hr ; pending [facility] facility placement [facility]- No acute events overnight, Respiratory: no complaints Cardiovascular: no complaints Gastrointestinal: no complaints Exam/Review of Systems Vital Signs Vitals Vital Signs Date Time Temp Pulse Resp B/P Pulse Ox O2 Delivery O2 Flow Rate FiO2 05/16/17 14:51 71 18 97 21 05/16/17 14:28 97.7 106/56 05/15/17 15:16 Room Air Intake and Output 05/15/17 05/15/17 05/16/17 15:00 23:00 07:00 Intake Total 1030 ml 1130 ml Output Total 750 ml 650 ml Balance 280 ml 480 ml Exam Constitutional: alert Respiratory: clear to auscultation, normal air movement Cardiovascular: nl pulses, regular rate and rhythm Gastrointestinal: non-tender, other (gt intact), soft Musculoskeletal: nl extremities to inspection Extremities: normal pulses Neurological: confused, nl speech Results Result Diagram: 05/16/17 0450 05/16/17 0450 Results 24 hrs Laboratory Tests Test 05/15/17 15:06 05/15/17 21:40 05/16/17 00:35 05/16/17 04:50 Bedside Glucose 136 208 219 White Blood Count 7.9 Red Blood Count 2.91 L Hemoglobin 8.2 L Hematocrit 25.9 L Mean Corpuscular Volume 89.0 Mean Corpuscular Hemoglobin 28.2 L Mean Corpuscular Hemoglobin Concent 31.7 L Red Cell Distribution Width 19.7 H Platelet Count 285 Mean Platelet Volume 11.9 H Neutrophils % 56.2 Lymphocytes % 21.1 Monocytes % 10.3 Eosinophils % 11.1 H Basophils % 0.9 Nucleated Red Blood Cells % 0.0 Neutrophils # 4.4 Lymphocytes # 1.7 Monocytes # 0.8 Eosinophils # 0.9 H Basophils # 0.1 Nucleated Red Blood Cells # 0.0 Sodium Level 139 Potassium Level 5.0 Chloride Level 99 Carbon Dioxide Level 33 H Anion Gap 12 Blood Urea Nitrogen 85 H Creatinine 3.45 H Glucose Level 161 Calcium Level 8.1 L Test 05/16/17 06:17 05/16/17 11:57 Bedside Glucose 167 238 H Medications Medications Current Medications Acetaminophen (Tylenol Tab) 650 mg Q6H PRN GTB PAIN AND OR ELEVATED TEMP Last administered on 05/05/17 12:01; Admin Dose 650 MG; Start 04/17/17 at 18:00 Bisacodyl (Dulcolax Supp) 10 mg Q24H [place] Last administered on 05/15/17 18:32; Admin Dose 10 MG; Start 04/17/17 at 18:00 Diphenhydramine HCl (Benadryl) 25 mg Q6H PRN GTB ITCHING Last administered on 21:41; Admin Dose 25 MG; Start 04/17/17 at 18:00 Hydralazine HCl (Apresoline) 50 mg Q8 PRN GTB ELEVATED BLOOD PRESSURE Last administered on 04/18/17 13:18; Admin Dose 50 MG; Start 04/17/17 at 18:00 Multivitamins Therapeutic (Theragran) 1 tab DAILY GTB Last administered on 05/16 09:23; Admin Dose 1 TAB; Start 04/18/17 at 09:00 Miscellaneous Information 1 ea NOTE XX ; Start 04/17/17 at 21:00 Glucose (Glutose) 15 gm Q15M PRN PO DECREASED GLUCOSE; Start 04/17/17 at 21:00 Glucose (Glutose) 22.5 gm Q15M PRN PO DECREASED GLUCOSE; Start 04/17/17 at 21: 00 Dextrose (D50w Syringe) 25 ml Q15M PRN IV DECREASED GLUCOSE Last administered on 04/20/17 17:22; Admin Dose 25 ML; Start 04/17/17 at 21:00 Dextrose (D50w Syringe) 50 ml Q15M PRN IV DECREASED GLUCOSE Last administered on 05/06/17 06:24; Admin Dose 50 ML; Start 04/17/17 at 21:00 Glucagon (Glucagen) 1 mg Q15M PRN IM DECREASED GLUCOSE; Start 04/17/17 at 21:00 Glucose (Glutose) 15 gm Q15M PRN BUCCAL DECREASED GLUCOSE; Start 04/17/17 at 21 :00 Ondansetron HCl (Zofran Inj) 4 mg Q6H PRN IV NAUSEA AND/OR VOMITING; Start at 00:30 Insulin Aspart (Novolog Insulin Pen) (Adult SC Insulin - Mild Algorithm)... Q6 SC Last administered on 05/16/17 12:09; Admin Dose 3 UNIT; Start 04/20/17 at 00:00 Insulin Glargine (Lantus) 14 unit QHS SC Last administered on 05/15/17 21:45; Admin Dose 14 UNIT; Start 04/20/17 at 21:00 Metoprolol Tartrate (Lopressor) 25 mg BID PO Last administered on 04/28/17 08: 14; Admin Dose 25 MG; Start 04/23/17 at 09:00; Status Future Hold Hydralazine HCl (Apresoline) 10 mg Q4H PRN IV SBP>170; Start 04/22/17 at 22:00 Nitroglycerin (Nitroglycerin (Sl Tab) 0.4 Mg) 1 tab Q5M PRN SL ANGINA; Start at 18:00 Acetaminophen/ Hydrocodone Bitart ([place] (5/325)) 1 tab Q6H PRN PO PAIN LEVEL 4 -7 Last administered on 05/03/17 12:31; Admin Dose 1 TAB; Start 05/03/17 at 03: 30 Acetaminophen (Tylenol Liquid) 650 mg Q4H PRN GTB PAIN AND OR ELEVATED TEMP Last administered on 05/12/17 18:12; Admin Dose 650 MG; Start 05/03/17 at 03:30 Metoclopramide HCl (Reglan) 5 mg TID IV Last administered on 05/16/17 13:25; Admin Dose 5 MG; Start 05/05/17 at 13:00 Amlodipine Besylate (Norvasc) 5 mg DAILY GTB Last administered on 05/16/17 09: 23; Admin Dose 5 MG; Start 05/07/17 at 09:00 Zinc Acetate/ Diphenhydramine (Benadryl 2% Cr) 1 applic Q8 PRN TOP ITCHING Last administered on 05/16/17 10:44; Admin Dose 1 APPLIC; Start 05/07/17 at 11: 00 Lansoprazole (Prevacid) 30 mg BID@,18 GTB Last administered on 05/16/17 06: 18; Admin Dose 30 MG; Start 05/08/17 at 18:00 Clonidine HCl (Catapres-Tts 1 Patch) 1 patch Q7D TRANSDERM Last administered on 05/15/17 15:11; Admin Dose 1 PATCH; Start 05/08/17 at 15:00 MARCY WEINER May 16, 2017 14:58
--- NOTE | 2017-05-16 15:21 | CONS ---
Date/Time of Note Date/Time of Note DATE: 05/16/17 TIME: 15:19 Assessment/Plan Assessment/Plan Additional Assessment/Plan Additional Assessment/Plan 1.HTN-reasonable control 2.H/O PAF-Remains in SR at this time by exam 3.renal failure 4.dysphagia 5. AMS 6. Heart [id number] HR.improved with holding BB overall some intermittent recurrence 7. Chest pain-resolved/negative troponin/no change on serial ecg 8. Occasional PVC's 9. CHF-diastolic acute on chronic 10.UTI 11.anemia REcc: Same Rx Consultation Date/Type/Reason Admit Date/Time Apr 17, 2017 at 16:39 Initial Consult Date 04/18/17 Type of Consultation: nephrology Referring Provider: PORTIA OLIVER MD 24 HR Interval Summary Free Text/Dictation ROS: Non communicating so the ROS was obtained from family No fever, no chills, no nausea, no vomiting, no diarrhea/constipation No recent weight changes No edema, no palpitations No chest pain, no PND, no SOB No dizziness, blurred vision No thirst, no heat or cold intolerance Exam/Review of Systems Vital Signs Vitals Vital Signs Date Time Temp Pulse Resp B/P Pulse Ox O2 Delivery O2 Flow Rate FiO2 05/16/17 14:51 71 18 97 21 05/16/17 14:28 97.7 106/56 05/15/17 15:16 Room Air Intake and Output 05/15/17 05/15/17 05/16/17 15:00 23:00 07:00 Intake Total 1030 ml 1130 ml Output Total 750 ml 650 ml Balance 280 ml 480 ml Exam General: Thin built/WD HEENT: Unicetric/atraumatic/ no assymetry NECK: JVD not elevated, no thyromegaly, carotids revealed normal upstrokes Lymph: no lymphadenopathy HEART: regular with no S3, I/ systolic murmur at apex LUNGS: clear ABD: soft, NT, ND, +BS, no organomegaly Neuro: no deficit SKIN: no leisons EXT: no edema Results Result Diagram: 05/16/17 0450 05/16/17 0450 Results 24 hrs Laboratory Tests Test 05/15/17 21:40 05/16/17 00:35 05/16/17 04:50 05/16/17 06:17 Bedside Glucose 208 219 167 White Blood Count 7.9 Red Blood Count 2.91 L Hemoglobin 8.2 L Hematocrit 25.9 L Mean Corpuscular Volume 89.0 Mean Corpuscular Hemoglobin 28.2 L Mean Corpuscular Hemoglobin Concent 31.7 L Red Cell Distribution Width 19.7 H Platelet Count 285 Mean Platelet Volume 11.9 H Neutrophils % 56.2 Lymphocytes % 21.1 Monocytes % 10.3 Eosinophils % 11.1 H Basophils % 0.9 Nucleated Red Blood Cells % 0.0 Neutrophils # 4.4 Lymphocytes # 1.7 Monocytes # 0.8 Eosinophils # 0.9 H Basophils # 0.1 Nucleated Red Blood Cells # 0.0 Sodium Level 139 Potassium Level 5.0 Chloride Level 99 Carbon Dioxide Level 33 H Anion Gap 12 Blood Urea Nitrogen 85 H Creatinine 3.45 H Glucose Level 161 Calcium Level 8.1 L Test 05/16/17 11:57 Bedside Glucose 238 H Medications Medications Current Medications Acetaminophen (Tylenol Tab) 650 mg Q6H PRN GTB PAIN AND OR ELEVATED TEMP Last administered on 05/05/17 12:01; Admin Dose 650 MG; Start 04/17/17 at 18:00 Bisacodyl (Dulcolax Supp) 10 mg Q24H [place] Last administered on 05/15/17 18:32; Admin Dose 10 MG; Start 04/17/17 at 18:00 Diphenhydramine HCl (Benadryl) 25 mg Q6H PRN GTB ITCHING Last administered on 21:41; Admin Dose 25 MG; Start 04/17/17 at 18:00 Hydralazine HCl (Apresoline) 50 mg Q8 PRN GTB ELEVATED BLOOD PRESSURE Last administered on 04/18/17 13:18; Admin Dose 50 MG; Start 04/17/17 at 18:00 Multivitamins Therapeutic (Theragran) 1 tab DAILY GTB Last administered on 05/16 09:23; Admin Dose 1 TAB; Start 04/18/17 at 09:00 Miscellaneous Information 1 ea NOTE XX ; Start 04/17/17 at 21:00 Glucose (Glutose) 15 gm Q15M PRN PO DECREASED GLUCOSE; Start 04/17/17 at 21:00 Glucose (Glutose) 22.5 gm Q15M PRN PO DECREASED GLUCOSE; Start 04/17/17 at 21: 00 Dextrose (D50w Syringe) 25 ml Q15M PRN IV DECREASED GLUCOSE Last administered on 04/20/17 17:22; Admin Dose 25 ML; Start 04/17/17 at 21:00 Dextrose (D50w Syringe) 50 ml Q15M PRN IV DECREASED GLUCOSE Last administered on 05/06/17 06:24; Admin Dose 50 ML; Start 04/17/17 at 21:00 Glucagon (Glucagen) 1 mg Q15M PRN IM DECREASED GLUCOSE; Start 04/17/17 at 21:00 Glucose (Glutose) 15 gm Q15M PRN BUCCAL DECREASED GLUCOSE; Start 04/17/17 at 21 :00 Ondansetron HCl (Zofran Inj) 4 mg Q6H PRN IV NAUSEA AND/OR VOMITING; Start at 00:30 Insulin Aspart (Novolog Insulin Pen) (Adult SC Insulin - Mild Algorithm)... Q6 [place] Last administered on 05/16/17 12:09; Admin Dose 3 UNIT; Start 04/20/17 at 00:00 Insulin Glargine (Lantus) 14 unit QHS SC Last administered on 05/15/17 21:45; Admin Dose 14 UNIT; Start 04/20/17 at 21:00 Metoprolol Tartrate (Lopressor) 25 mg BID PO Last administered on 04/28/17 08: 14; Admin Dose 25 MG; Start 04/23/17 at 09:00; Status Future Hold Hydralazine HCl (Apresoline) 10 mg Q4H PRN IV SBP>170; Start 04/22/17 at 22:00 Nitroglycerin (Nitroglycerin (Sl Tab) 0.4 Mg) 1 tab Q5M PRN SL ANGINA; Start at 18:00 Acetaminophen/ Hydrocodone Bitart ([place] (5/325)) 1 tab Q6H PRN PO PAIN LEVEL 4 -7 Last administered on 05/03/17 12:31; Admin Dose 1 TAB; Start 05/03/17 at 03: 30 Acetaminophen (Tylenol Liquid) 650 mg Q4H PRN GTB PAIN AND OR ELEVATED TEMP Last administered on 05/12/17 18:12; Admin Dose 650 MG; Start 05/03/17 at 03:30 Metoclopramide HCl (Reglan) 5 mg TID IV Last administered on 05/16/17 13:25; Admin Dose 5 MG; Start 05/05/17 at 13:00 Amlodipine Besylate (Norvasc) 5 mg DAILY GTB Last administered on 05/16/17 09: 23; Admin Dose 5 MG; Start 05/07/17 at 09:00 Zinc Acetate/ Diphenhydramine (Benadryl 2% Cr) 1 applic Q8 PRN TOP ITCHING Last administered on 05/16/17 10:44; Admin Dose 1 APPLIC; Start 05/07/17 at 11: 00 Lansoprazole (Prevacid) 30 mg BID@,18 GTB Last administered on 05/16/17 06: 18; Admin Dose 30 MG; Start 05/08/17 at 18:00 Clonidine HCl (Catapres-Tts 1 Patch) 1 patch Q7D TRANSDERM Last administered on 05/15/17 15:11; Admin Dose 1 PATCH; Start 05/08/17 at 15:00 Insulin Aspart (Novolog Insulin Pen) 5 unit Q6 SC ; Start 05/16/17 at 18:00 DEBORAH GLASER MD May 16, 2017 15:21
[2017-05-16] MEDS: BISACODYL 10 MG SUPP PR SCH (17:53)
[2017-05-16] MEDS: INSULIN ASPART [NOVOLOG] 3 ML PEN SC SCH (17:58)
[2017-05-16 19:29] VITALS: BP 145/69; RESP 18
[2017-05-16] MEDS: INSULIN GLARGINE [LANtus] 3 ML PEN SC SCH (22:02)
[2017-05-17] VITALS (13 sets, daily range): BP systolic 90–136; BP diastolic 51–72; PULSE 62–72; RESP 16–20
[2017-05-17] MEDS: Insulin NOVOLOG SS MILD Algorithm (NPO/TPN/ENTERAL FEEDS) SC SCH ×4 (00:21→18:18)
[2017-05-17] MEDS: INSULIN ASPART [NOVOLOG] 3 ML PEN SC SCH ×4 (00:23→18:16)
[2017-05-17] MEDS: ALBUTEROL/IPRATROPIUM (NEB) 3 ML AMP HHN SCH ×4 (02:32→20:21)
[2017-05-17] MEDS: HYDROCODONE/APAP (5/325) TAB PO PRN (05:18)
[2017-05-17] MEDS: LANSOPRAZOLE 30 MG CAP GTB SCH ×2 (05:18→18:29)
[2017-05-17 05:52] LABS: BASOPHIL # 0.1 10^3/ul (0.0-0.1); BASOPHILS % 0.8 % (0.0-2.0); EOSINOPHILS # 0.9 10^3/ul (0.0-0.5); EOSINOPHILS % 10.4 % (0.0-7.0); HEMATOCRIT 25.8 % (42.0-52.0); HEMOGLOBIN 7.9 g/dl (14.0-18.0); LYMPHOCYTES # 1.9 10^3/ul (0.8-2.9); LYMPHOCYTES % 22.2 % (15.0-51.0); MEAN CORPUSCULAR HEMOGLOBIN 27.7 pg (29.0-33.0); MEAN CORPUSCULAR HGB CONC 30.6 g/dl (32.0-37.0); MEAN CORPUSCULAR VOLUME 90.5 fl (82.0-101.0); MEAN PLATELET VOLUME 12.1 fl (7.4-10.4); MONOCYTE # 0.8 10^3/ul (0.3-0.9); NEUTROPHIL # 4.7 10^3/ul (1.6-7.5); NEUTROPHILS % 56.1 % (39.0-77.0); PLATELET COUNT 291 10^3/UL (140-415); RED BLOOD COUNT 2.85 10^6/ul (4.70-6.10); RED CELL DISTRIBUTION WIDTH 19.8 % (11.5-14.5); WHITE BLOOD COUNT 8.4 10^3/ul (4.8-10.8)
[2017-05-17 06:22] LABS: CALCIUM 8.2 mg/dl (8.4-10.2); CREATININE 3.79 mg/dl (0.61-1.24); POTASSIUM 5.2 mmol/L (3.5-5.1)
--- NOTE | 2017-05-17 08:38 | RADRPT ---
Vent Rate: 79 bpm RR Interval: 0 msec GA Interval: 236 msec QRS Duration: 118 msec QT Interval: 392 msec QTC Interval: 449 msec P-R-T [place]: 58 - 80 - 58 degrees Sinus rhythm with 1st degree AV block Right bundle branch block Abnormal ECG Electronically Signed By: Neville Gurrola [id number]
[2017-05-17] MEDS: AMLODIPINE 5 MG TAB GTB SCH (09:59)
[2017-05-17] MEDS: MULTIVITAMINS THERAPEUTIC TAB GTB SCH (10:17)
[2017-05-17] MEDS: METOCLOPRAMIDE 10 MG INJ IV SCH ×3 (10:18→22:20)
[2017-05-17] MEDS ORDERED: HEPARIN 1000 UNITS/ML 10 ML INJ CATHETER SCH (12:30)
[2017-05-17] MEDS ORDERED: ALBUMIN HUMAN 25% 50 ML IV PRN (13:00)
[2017-05-17] MEDS ORDERED: MANNITOL 25% 50 ML IV PRN (13:00)
--- NOTE | 2017-05-17 13:11 | CONS ---
Date/Time of Note Date/Time of Note DATE: 05/17/17 TIME: 13:08 Assessment/Plan Assessment/Plan Chief Complaint/Hosp Course 72 y/o with 1.BISI on CKD s/p Hd initiated on 05/06 2.Hypernatremia on HD now 3.HTN > Normotensive 4 Ecoli UTI 5 Sepsis due to #4 resolved 6 Chronic Afib 7 CVA s/p G tube placement 8 Renal cyst 9 Hyperphosphetemia Recs - Pt is much more sleepy, lethargic> HD today for BUN>100 - Pt unable to tolerate 2 session, will switch to M/W/F thrice weekly - Epogen with HD today( Hb 7.9) - Change fibersource to Diabeticsource - Insulin manegment per primary - Hold BP meds before HD - Labs am - Pending snif placement Problems: Consultation Date/Type/Reason Admit Date/Time Apr 17, 2017 at 16:39 Initial Consult Date 04/18/17 Type of Consultation: nephrology Referring Provider: PORTIA OLIVER MD 24 HR Interval Summary Free Text/Dictation Pt more sleepy and lethargic On fibersource sugar >200 Exam/Review of Systems Vital Signs Vitals Vital Signs Date Time Temp Pulse Resp B/P Pulse Ox O2 Delivery O2 Flow Rate FiO2 05/17/17 08:42 70 20 90 21 05/17/17 08:20 97.0 101/56 05/15/17 15:16 Room Air Intake and Output 05/16/17 05/16/17 05/17/17 15:00 23:00 07:00 Intake Total 1130 ml 1100 ml Output Total 400 ml 400 ml Balance 730 ml 700 ml Exam Constitutional: frail Respiratory: diminished breath sounds Gastrointestinal: other (gt), soft, G t tube Neurological: confused : Flores Results Result Diagram: 05/17/17 0450 05/17/17 0450 Results 24 hrs Laboratory Tests Test 05/16/17 17:50 05/16/17 21:03 05/16/17 21:58 05/17/17 00:14 Bedside Glucose 342 H 76 131 234 H Test 05/17/17 04:50 05/17/17 05:16 05/17/17 12:01 White Blood Count 8.4 Red Blood Count 2.85 L Hemoglobin 7.9 L Hematocrit 25.8 L Mean Corpuscular Volume 90.5 Mean Corpuscular Hemoglobin 27.7 L Mean Corpuscular Hemoglobin Concent 30.6 L Red Cell Distribution Width 19.8 H Platelet Count 291 Mean Platelet Volume 12.1 H Neutrophils % 56.1 Lymphocytes % 22.2 Monocytes % 10.0 Eosinophils % 10.4 H Basophils % 0.8 Nucleated Red Blood Cells % 0.0 Neutrophils # 4.7 Lymphocytes # 1.9 Monocytes # 0.8 Eosinophils # 0.9 H Basophils # 0.1 Nucleated Red Blood Cells # 0.0 Sodium Level 138 Potassium Level 5.2 H Chloride Level 99 Carbon Dioxide Level 33 H Anion Gap 11 Blood Urea Nitrogen 108 H Creatinine 3.79 H Glucose Level 232 H Calcium Level 8.2 L Phosphorus Level 4.9 Bedside Glucose 251 H 263 H Medications Medications Current Medications Acetaminophen (Tylenol Tab) 650 mg Q6H PRN GTB PAIN AND OR ELEVATED TEMP Last administered on 05/05/17 12:01; Admin Dose 650 MG; Start 04/17/17 at 18:00 Bisacodyl (Dulcolax Supp) 10 mg Q24H [place] Last administered on 05/16/17 17:53; Admin Dose 10 MG; Start 04/17/17 at 18:00 Diphenhydramine HCl (Benadryl) 25 mg Q6H PRN GTB ITCHING Last administered on 21:41; Admin Dose 25 MG; Start 04/17/17 at 18:00 Hydralazine HCl (Apresoline) 50 mg Q8 PRN GTB ELEVATED BLOOD PRESSURE Last administered on 04/18/17 13:18; Admin Dose 50 MG; Start 04/17/17 at 18:00 Multivitamins Therapeutic (Theragran) 1 tab DAILY GTB Last administered on 05/17 10:17; Admin Dose 1 TAB; Start 04/18/17 at 09:00 Miscellaneous Information 1 ea NOTE XX ; Start 04/17/17 at 21:00 Glucose (Glutose) 15 gm Q15M PRN PO DECREASED GLUCOSE; Start 04/17/17 at 21:00 Glucose (Glutose) 22.5 gm Q15M PRN PO DECREASED GLUCOSE; Start 04/17/17 at 21: 00 Dextrose (D50w Syringe) 25 ml Q15M PRN IV DECREASED GLUCOSE Last administered on 04/20/17 17:22; Admin Dose 25 ML; Start 04/17/17 at 21:00 Dextrose (D50w Syringe) 50 ml Q15M PRN IV DECREASED GLUCOSE Last administered on 05/06/17 06:24; Admin Dose 50 ML; Start 04/17/17 at 21:00 Glucagon (Glucagen) 1 mg Q15M PRN IM DECREASED GLUCOSE; Start 04/17/17 at 21:00 Glucose (Glutose) 15 gm Q15M PRN BUCCAL DECREASED GLUCOSE; Start 04/17/17 at 21 :00 Ondansetron HCl (Zofran Inj) 4 mg Q6H PRN IV NAUSEA AND/OR VOMITING; Start at 00:30 Insulin Aspart (Novolog Insulin Pen) (Adult SC Insulin - Mild Algorithm)... Q6 [place] Last administered on 05/17/17 12:18; Admin Dose 4 UNIT; Start 04/20/17 at 00:00 Insulin Glargine (Lantus) 14 unit QHS [place] Last administered on 05/16/17 22:02; Admin Dose 14 UNIT; Start 04/20/17 at 21:00 Metoprolol Tartrate (Lopressor) 25 mg BID PO Last administered on 04/28/17 08: 14; Admin Dose 25 MG; Start 04/23/17 at 09:00; Status Future Hold Hydralazine HCl (Apresoline) 10 mg Q4H PRN IV SBP>170; Start 04/22/17 at 22:00 Nitroglycerin (Nitroglycerin (Sl Tab) 0.4 Mg) 1 tab Q5M PRN SL ANGINA; Start at 18:00 Acetaminophen/ Hydrocodone Bitart ([place] (5/325)) 1 tab Q6H PRN PO PAIN LEVEL 4 -7 Last administered on 05/17/17 05:18; Admin Dose 1 TAB; Start 05/03/17 at 03: 30 Acetaminophen (Tylenol Liquid) 650 mg Q4H PRN GTB PAIN AND OR ELEVATED TEMP Last administered on 05/12/17 18:12; Admin Dose 650 MG; Start 05/03/17 at 03:30 Metoclopramide HCl (Reglan) 5 mg TID IV Last administered on 05/17/17 12:18; Admin Dose 5 MG; Start 05/05/17 at 13:00 Amlodipine Besylate (Norvasc) 5 mg DAILY GTB Last administered on 05/16/17 09: 23; Admin Dose 5 MG; Start 05/07/17 at 09:00 Zinc Acetate/ Diphenhydramine (Benadryl 2% Cr) 1 applic Q8 PRN TOP ITCHING Last administered on 05/16/17 10:44; Admin Dose 1 APPLIC; Start 05/07/17 at 11: 00 Lansoprazole (Prevacid) 30 mg BID@06,18 GTB Last administered on 05/17/17 05: 18; Admin Dose 30 MG; Start 05/08/17 at 18:00 Clonidine HCl (Catapres-Tts 1 Patch) 1 patch Q7D TRANSDERM Last administered on 05/15/17 15:11; Admin Dose 1 PATCH; Start 05/08/17 at 15:00 Insulin Aspart (Novolog Insulin Pen) 5 unit Q6 [place] Last administered on 12:18; Admin Dose 5 UNIT; Start 05/16/17 at 18:00 Epoetin Taqueria (Epogen (Esrd)) 2,000 units MoWeFr@17 [place] ; Start 05/17/17 at 17:00 ; Status PORTIA PULLIAM MD May 17, 2017 13:11
[2017-05-17] MEDS: DIPHENHYDRAMINE 2%/ZINC 28.4 GM CR TOP PRN (14:31)
[2017-05-17] MEDS ORDERED: EPOETIN 3000 UNITS/1 ML INJ (ESRD) SC SCH (17:00)
--- NOTE | 2017-05-17 18:26 | CONS ---
Date/Time of Note Date/Time of Note DATE: 05/17/17 TIME: 18:24 Assessment/Plan Assessment/Plan Chief Complaint/Hosp Course IMP: 1.HTN-reasonable control on lower end today s/p HD 2.H/O PAF-Remains in SR at this time by exam 3.renal failure 4.dysphagia 5. AMS 6. Heart [id number]-neikfh HR.improved with holding BB overall some intermittent recurrence when on Tele still 7. Chest pain-resolved/negative troponin/no change on serial ecg 8. Occasional PVC's 9. CHF-diastolic acute on chronic 10.UTI 11.anemia REcc: -Now on med-surg -serial ecg's to document rhythm -Continue norvasc/clondine TTS and follow BP closely -Continue to Hold BB given wenkebach -Follow volume status closely with HD today -HD for volume removal -Follow MS kam Problems: Consultation Date/Type/Reason Admit Date/Time Apr 17, 2017 at 16:39 Initial Consult Date 04/18/17 Type of Consultation: cardiology Reason for Consultation PAF Referring Provider: PORTIA OLIVER MD Exam/Review of Systems Vital Signs Vitals Vital Signs Date Time Temp Pulse Resp B/P Pulse Ox O2 Delivery O2 Flow Rate FiO2 05/17/17 17:45 70 15 05/17/17 14:23 97.3 104/56 98 05/17/17 14:09 21 05/15/17 15:16 Room Air Intake and Output 05/16/17 05/16/17 05/17/17 15:00 23:00 07:00 Intake Total 1130 ml 1100 ml Output Total 400 ml 400 ml Balance 730 ml 700 ml Exam Review of Systems: CONSTITUTIONAL: No fevers, chills. PULMONARY: No sob CARDIOVASCULAR: No chest pain/palpitations GASTROINTESTINAL: No nausea/vomiting. GENITOURINARY: No hematuria/dysuria. MUSCULOSKELETAL: No myagias/arthalgias. PSYCHIATRIC: The patient denies depression. NEUROLOGIC: No weakness Constitutional: alert, other (noncommunicative) Psych: no complaints Head: normocephalic ENMT: mucosa pink and moist Neck: jvd (8 cm water), supple Respiratory: diminished breath sounds (at bases/B) Cardiovascular: regular rate and rhythm Gastrointestinal: soft Musculoskeletal: muscle tone (normal) Extremities: edema (none) Neurological: lethargic Results Result Diagram: 05/17/17 0450 05/17/17 0450 Results 24 hrs Laboratory Tests Test 05/16/17 21:03 05/16/17 21:58 05/17/17 00:14 05/17/17 04:50 Bedside Glucose 76 131 234 H White Blood Count 8.4 Red Blood Count 2.85 L Hemoglobin 7.9 L Hematocrit 25.8 L Mean Corpuscular Volume 90.5 Mean Corpuscular Hemoglobin 27.7 L Mean Corpuscular Hemoglobin Concent 30.6 L Red Cell Distribution Width 19.8 H Platelet Count 291 Mean Platelet Volume 12.1 H Neutrophils % 56.1 Lymphocytes % 22.2 Monocytes % 10.0 Eosinophils % 10.4 H Basophils % 0.8 Nucleated Red Blood Cells % 0.0 Neutrophils # 4.7 Lymphocytes # 1.9 Monocytes # 0.8 Eosinophils # 0.9 H Basophils # 0.1 Nucleated Red Blood Cells # 0.0 Sodium Level 138 Potassium Level 5.2 H Chloride Level 99 Carbon Dioxide Level 33 H Anion Gap 11 Blood Urea Nitrogen 108 H Creatinine 3.79 H Glucose Level 232 H Calcium Level 8.2 L Phosphorus Level 4.9 Test 05/17/17 05:16 05/17/17 12:01 05/17/17 18:13 Bedside Glucose 251 H 263 H 184 Medications Medications Current Medications Acetaminophen (Tylenol Tab) 650 mg Q6H PRN GTB PAIN AND OR ELEVATED TEMP Last administered on 05/05/17 12:01; Admin Dose 650 MG; Start 04/17/17 at 18:00 Bisacodyl (Dulcolax Supp) 10 mg Q24H [place] Last administered on 05/16/17 17:53; Admin Dose 10 MG; Start 04/17/17 at 18:00 Diphenhydramine HCl (Benadryl) 25 mg Q6H PRN GTB ITCHING Last administered on 21:41; Admin Dose 25 MG; Start 04/17/17 at 18:00 Hydralazine HCl (Apresoline) 50 mg Q8 PRN GTB ELEVATED BLOOD PRESSURE Last administered on 04/18/17 13:18; Admin Dose 50 MG; Start 04/17/17 at 18:00 Multivitamins Therapeutic (Theragran) 1 tab DAILY GTB Last administered on 05/17 10:17; Admin Dose 1 TAB; Start 04/18/17 at 09:00 Miscellaneous Information 1 ea NOTE XX ; Start 04/17/17 at 21:00 Glucose (Glutose) 15 gm Q15M PRN PO DECREASED GLUCOSE; Start 04/17/17 at 21:00 Glucose (Glutose) 22.5 gm Q15M PRN PO DECREASED GLUCOSE; Start 04/17/17 at 21: 00 Dextrose (D50w Syringe) 25 ml Q15M PRN IV DECREASED GLUCOSE Last administered on 04/20/17 17:22; Admin Dose 25 ML; Start 04/17/17 at 21:00 Dextrose (D50w Syringe) 50 ml Q15M PRN IV DECREASED GLUCOSE Last administered on 05/06/17 06:24; Admin Dose 50 ML; Start 04/17/17 at 21:00 Glucagon (Glucagen) 1 mg Q15M PRN IM DECREASED GLUCOSE; Start 04/17/17 at 21:00 Glucose (Glutose) 15 gm Q15M PRN BUCCAL DECREASED GLUCOSE; Start 04/17/17 at 21 :00 Ondansetron HCl (Zofran Inj) 4 mg Q6H PRN IV NAUSEA AND/OR VOMITING; Start at 00:30 Insulin Aspart (Novolog Insulin Pen) (Adult SC Insulin - Mild Algorithm)... Q6 [place] Last administered on 05/17/17 18:18; Admin Dose 2 UNIT; Start 04/20/17 at 00:00 Insulin Glargine (Lantus) 14 unit QHS [place] Last administered on 05/16/17 22:02; Admin Dose 14 UNIT; Start 04/20/17 at 21:00 Metoprolol Tartrate (Lopressor) 25 mg BID PO Last administered on 04/28/17 08: 14; Admin Dose 25 MG; Start 04/23/17 at 09:00; Status Future Hold Hydralazine HCl (Apresoline) 10 mg Q4H PRN IV SBP>170; Start 04/22/17 at 22:00 Nitroglycerin (Nitroglycerin (Sl Tab) 0.4 Mg) 1 tab Q5M PRN SL ANGINA; Start at 18:00 Acetaminophen/ Hydrocodone Bitart ([place] (5/325)) 1 tab Q6H PRN PO PAIN LEVEL 4 -7 Last administered on 05/17/17 05:18; Admin Dose 1 TAB; Start 05/03/17 at 03: 30 Acetaminophen (Tylenol Liquid) 650 mg Q4H PRN GTB PAIN AND OR ELEVATED TEMP Last administered on 05/12/17 18:12; Admin Dose 650 MG; Start 05/03/17 at 03:30 Metoclopramide HCl (Reglan) 5 mg TID IV Last administered on 05/17/17 12:18; Admin Dose 5 MG; Start 05/05/17 at 13:00 Amlodipine Besylate (Norvasc) 5 mg DAILY GTB Last administered on 05/16/17 09: 23; Admin Dose 5 MG; Start 05/07/17 at 09:00 Zinc Acetate/ Diphenhydramine (Benadryl 2% Cr) 1 applic Q8 PRN TOP ITCHING Last administered on 05/17/17 14:31; Admin Dose 1 APPLIC; Start 05/07/17 at 11: 00 Lansoprazole (Prevacid) 30 mg BID@06,18 GTB Last administered on 05/17/17 05: 18; Admin Dose 30 MG; Start 05/08/17 at 18:00 Clonidine HCl (Catapres-Tts 1 Patch) 1 patch Q7D TRANSDERM Last administered on 05/15/17 15:11; Admin Dose 1 PATCH; Start 05/08/17 at 15:00 Insulin Aspart (Novolog Insulin Pen) 5 unit Q6 SC Last administered on 18:16; Admin Dose 5 UNIT; Start 05/16/17 at 18:00 Epoetin Tqaueria (Epogen (Esrd)) 2,000 units MoWeFr@17 SC ; Start 05/17/17 at 17:00 LESLI SHEA May 17, 2017 18:26
[2017-05-17] MEDS: BISACODYL 10 MG SUPP PR SCH (18:29)
[2017-05-17] MEDS: EPOETIN 2000 UNITS/1 ML INJ (ESRD) SC SCH (18:31)
[2017-05-17] MEDS: INSULIN GLARGINE [LANtus] 3 ML PEN SC SCH (22:20)
[2017-05-18] MEDS: INSULIN ASPART [NOVOLOG] 3 ML PEN SC SCH ×4 (00:19→17:45)
[2017-05-18] MEDS: Insulin NOVOLOG SS MILD Algorithm (NPO/TPN/ENTERAL FEEDS) SC SCH ×4 (00:20→17:45)
[2017-05-18] MEDS: ALBUTEROL/IPRATROPIUM (NEB) 3 ML AMP HHN SCH ×4 (01:36→20:00)
[2017-05-18 02:04] VITALS: BP 107/56; RESP 16
[2017-05-18] MEDS: DIPHENHYDRAMINE 2%/ZINC 28.4 GM CR TOP PRN (03:31)
[2017-05-18] MEDS: LANSOPRAZOLE 30 MG CAP GTB SCH ×2 (06:23→17:11)
[2017-05-18] MEDS: AMLODIPINE 5 MG TAB GTB SCH (08:30)
[2017-05-18] MEDS: METOCLOPRAMIDE 10 MG INJ IV SCH ×3 (08:30→20:55)
[2017-05-18] MEDS: MULTIVITAMINS THERAPEUTIC TAB GTB SCH (08:30)
--- NOTE | 2017-05-18 09:35 | CONS ---
Date/Time of Note Date/Time of Note DATE: 05/18/17 TIME: 09:33 Assessment/Plan Assessment/Plan Additional Assessment/Plan 1.HTN-somewhat labile today - HD as needed, will monitor clinically now 2.H/O PAF-Remains in SR at this time - OFF TELE NOW 3.renal failure - renal team follows 4.dysphagia 5. AMS - more alert - stable 6. Heart qwrvx-kjyfjizyz-oyehnk HR.improved with holding BB overall some intermittent recurrence - now rate stable 7. Chest pain-resolved/negative troponin/no change on serial ecg - no intervention planned 8. Occasional PVC's 9. CHF-diastolic CHRIONIC - good fluid status now 10.UTI 11.anemia Consultation Date/Type/Reason Admit Date/Time Apr 17, 2017 at 16:39 Initial Consult Date 04/18/17 Type of Consultation: cardiology Referring Provider: PORTIA OLIVER MD 24 HR Interval Summary Free Text/Dictation NO acute events - OFF TELE - con't to monitor. Agitated, with sitter now ROS: No fever, no chills, no nausea, no vomiting, no diarrhea/constipation No recent weight changes No chest pain, no PND, no orthopnea No dizziness, blurred vision No thirst, no heat or cold intolerance (agitated) Exam/Review of Systems Vital Signs Vitals Vital Signs Date Time Temp Pulse Resp B/P Pulse Ox O2 Delivery O2 Flow Rate FiO2 05/18/17 08:08 80 20 21 05/18/17 02:04 98.1 107/56 99 05/15/17 15:16 Room Air Intake and Output 05/17/17 05/17/17 05/18/17 15:00 23:00 07:00 Intake Total 1760 ml 1100 ml Output Total 3050 ml 450 ml Balance -1290 ml 650 ml Exam General: WN/WD/NAD, AOx 0 - confused HEENT: Unicetric/atraumatic/EOMI (does not follow commands) NECK: JVD elevated, no thyromegaly Lymph: no lymphadenopathy HEART: regular with no S3, II/ systolic murmur at apex LUNGS: Coarse sounds ABD: soft, NT, ND, +BS : Intact Neuro: non focal SKIN: chronic changes EXT: trace edema, amput Results Result Diagram: 05/17/170 05/17/17 0450 Results 24 hrs Laboratory Tests Test 05/17/17 12:01 05/17/17 18:13 05/17/17 22:18 05/18/17 00:08 Bedside Glucose 263 H 184 111 141 Test 05/18/17 01:21 05/18/17 06:21 Bedside Glucose 104 136 Medications Medications Current Medications Acetaminophen (Tylenol Tab) 650 mg Q6H PRN GTB PAIN AND OR ELEVATED TEMP Last administered on 05/05/17 12:01; Admin Dose 650 MG; Start 04/17/17 at 18:00 Bisacodyl (Dulcolax Supp) 10 mg Q24H [place] Last administered on 05/17/17 18:29; Admin Dose 10 MG; Start 04/17/17 at 18:00 Diphenhydramine HCl (Benadryl) 25 mg Q6H PRN GTB ITCHING Last administered on 21:41; Admin Dose 25 MG; Start 04/17/17 at 18:00 Hydralazine HCl (Apresoline) 50 mg Q8 PRN GTB ELEVATED BLOOD PRESSURE Last administered on 04/18/17 13:18; Admin Dose 50 MG; Start 04/17/17 at 18:00 Multivitamins Therapeutic (Theragran) 1 tab DAILY GTB Last administered on 05/18 08:30; Admin Dose 1 TAB; Start 04/18/17 at 09:00 Miscellaneous Information 1 ea NOTE XX ; Start 04/17/17 at 21:00 Glucose (Glutose) 15 gm Q15M PRN PO DECREASED GLUCOSE; Start 04/17/17 at 21:00 Glucose (Glutose) 22.5 gm Q15M PRN PO DECREASED GLUCOSE; Start 04/17/17 at 21: 00 Dextrose (D50w Syringe) 25 ml Q15M PRN IV DECREASED GLUCOSE Last administered on 04/20/17 17:22; Admin Dose 25 ML; Start 04/17/17 at 21:00 Dextrose (D50w Syringe) 50 ml Q15M PRN IV DECREASED GLUCOSE Last administered on 05/06/17 06:24; Admin Dose 50 ML; Start 04/17/17 at 21:00 Glucagon (Glucagen) 1 mg Q15M PRN IM DECREASED GLUCOSE; Start 04/17/17 at 21:00 Glucose (Glutose) 15 gm Q15M PRN BUCCAL DECREASED GLUCOSE; Start 04/17/17 at 21 :00 Ondansetron HCl (Zofran Inj) 4 mg Q6H PRN IV NAUSEA AND/OR VOMITING; Start at 00:30 Insulin Aspart (Novolog Insulin Pen) (Adult SC Insulin - Mild Algorithm)... Q6 [place] Last administered on 05/18/17 00:20; Admin Dose 1 UNIT; Start 04/20/17 at 00:00 Insulin Glargine (Lantus) 14 unit QHS SC Last administered on 05/17/17 22:20; Admin Dose 14 UNIT; Start 04/20/17 at 21:00 Metoprolol Tartrate (Lopressor) 25 mg BID PO Last administered on 04/28/17 08: 14; Admin Dose 25 MG; Start 04/23/17 at 09:00; Status Future Hold Hydralazine HCl (Apresoline) 10 mg Q4H PRN IV SBP>170; Start 04/22/17 at 22:00 Nitroglycerin (Nitroglycerin (Sl Tab) 0.4 Mg) 1 tab Q5M PRN SL ANGINA; Start at 18:00 Acetaminophen/ Hydrocodone Bitart ([place] (5/325)) 1 tab Q6H PRN PO PAIN LEVEL 4 -7 Last administered on 05/17/17 05:18; Admin Dose 1 TAB; Start 05/03/17 at 03: 30 Acetaminophen (Tylenol Liquid) 650 mg Q4H PRN GTB PAIN AND OR ELEVATED TEMP Last administered on 05/12/17 18:12; Admin Dose 650 MG; Start 05/03/17 at 03:30 Metoclopramide HCl (Reglan) 5 mg TID IV Last administered on 05/18/17 08:30; Admin Dose 5 MG; Start 05/05/17 at 13:00 Amlodipine Besylate (Norvasc) 5 mg DAILY GTB Last administered on 05/18/17 08: 30; Admin Dose 5 MG; Start 05/07/17 at 09:00 Zinc Acetate/ Diphenhydramine (Benadryl 2% Cr) 1 applic Q8 PRN TOP ITCHING Last administered on 05/18/17 03:31; Admin Dose 1 APPLIC; Start 05/07/17 at 11: 00 Lansoprazole (Prevacid) 30 mg BID@06,18 GTB Last administered on 05/18/17 06: 23; Admin Dose 30 MG; Start 05/08/17 at 18:00 Clonidine HCl (Catapres-Tts 1 Patch) 1 patch Q7D TRANSDERM Last administered on 05/15/17 15:11; Admin Dose 1 PATCH; Start 05/08/17 at 15:00 Insulin Aspart (Novolog Insulin Pen) 5 unit Q6 [place] Last administered on 06:24; Admin Dose 5 UNIT; Start 05/16/17 at 18:00 Epoetin Taqueria (Epogen (Esrd)) 2,000 units MoWeFr@17 [place] Last administered on 05/17 18:31; Admin Dose 2,000 UNITS; Start 05/17/17 at 17:00 HERBERTH ZUNIGA MD May 18, 2017 09:35
--- NOTE | 2017-05-18 13:39 | PN ---
Date/Time of Note Date/Time of Note DATE: 05/18/17 TIME: 13:37 Assessment/Plan VTE Prophylaxis VTE Prophylaxis Intervention: SCD's Lines/Catheters IV Catheter Type (from Nrsg): PERMACATH Urinary Cath still in place: Yes Reason Cath still needed: urinary retention Assessment/Plan Chief Complaint/Hosp Course No acute events overnight, pt looks comfortable. No SNIF awailable today per conversation with CM. Assessment/Plan - Acute kidney injury on chronic kidney disease. Continue hemodialysis per renal. Dr. Cheema is following in nephrology consultation. - Protein calorie malnutrition, increase G-tube feeding according to spindle repairer recommendations - Status post post urinary tract infection. - History of cerebrovascular accident - Diabetes mellitus. Continue Lantus and NovoLog. - Diastolic congestive heart failure. Continue to monitor intake and output. - Paroxysmal atrial fibrillation, currently in sinus rhythm. - Hypertension. Continue Norvasc. - Hyperlipidemia. Continue statin. - Urinary retention with Flores catheter. - Dysphagia, status post PEG placement - Anemia of chronic disease, continue Epogen. Further recommendations based on clinical course. Plan of care discussed with Dr. Patel Problems: Exam/Review of Systems Vital Signs Vitals Vital Signs Date Time Temp Pulse Resp B/P Pulse Ox O2 Delivery O2 Flow Rate FiO2 05/18/17 08:08 80 20 21 05/18/17 02:04 98.1 107/56 99 05/15/17 15:16 Room Air Intake and Output 05/17/17 05/17/17 05/18/17 15:00 23:00 07:00 Intake Total 1760 ml 1100 ml Output Total 3050 ml 450 ml Balance -1290 ml 650 ml Exam Constitutional: alert Neck: supple Respiratory: normal air movement Cardiovascular: RRR Gastrointestinal: other, soft Extremities: normal pulses (Tube) Additional Comments Right IJ permacath Results Result Diagram: 05/17/17 0450 05/17/17 0450 Results 24 hrs Laboratory Tests Test 05/17/17 18:13 05/17/17 22:18 05/18/17 00:08 05/18/17 01:21 Bedside Glucose 184 111 141 104 Test 05/18/17 06:21 05/18/17 12:32 Bedside Glucose 136 140 Medications Medications Current Medications Acetaminophen (Tylenol Tab) 650 mg Q6H PRN GTB PAIN AND OR ELEVATED TEMP Last administered on 05/05/17 12:01; Admin Dose 650 MG; Start 04/17/17 at 18:00 Bisacodyl (Dulcolax Supp) 10 mg Q24H [place] Last administered on 05/17/17 18:29; Admin Dose 10 MG; Start 04/17/17 at 18:00 Diphenhydramine HCl (Benadryl) 25 mg Q6H PRN GTB ITCHING Last administered on 21:41; Admin Dose 25 MG; Start 04/17/17 at 18:00 Hydralazine HCl (Apresoline) 50 mg Q8 PRN GTB ELEVATED BLOOD PRESSURE Last administered on 04/18/17 13:18; Admin Dose 50 MG; Start 04/17/17 at 18:00 Multivitamins Therapeutic (Theragran) 1 tab DAILY GTB Last administered on 05/18 08:30; Admin Dose 1 TAB; Start 04/18/17 at 09:00 Miscellaneous Information 1 ea NOTE XX ; Start 04/17/17 at 21:00 Glucose (Glutose) 15 gm Q15M PRN PO DECREASED GLUCOSE; Start 04/17/17 at 21:00 Glucose (Glutose) 22.5 gm Q15M PRN PO DECREASED GLUCOSE; Start 04/17/17 at 21: 00 Dextrose (D50w Syringe) 25 ml Q15M PRN IV DECREASED GLUCOSE Last administered on 04/20/17 17:22; Admin Dose 25 ML; Start 04/17/17 at 21:00 Dextrose (D50w Syringe) 50 ml Q15M PRN IV DECREASED GLUCOSE Last administered on 05/06/17 06:24; Admin Dose 50 ML; Start 04/17/17 at 21:00 Glucagon (Glucagen) 1 mg Q15M PRN IM DECREASED GLUCOSE; Start 04/17/17 at 21:00 Glucose (Glutose) 15 gm Q15M PRN BUCCAL DECREASED GLUCOSE; Start 04/17/17 at 21 :00 Ondansetron HCl (Zofran Inj) 4 mg Q6H PRN IV NAUSEA AND/OR VOMITING; Start at 00:30 Insulin Aspart (Novolog Insulin Pen) (Adult SC Insulin - Mild Algorithm)... Q6 [place] Last administered on 05/18/17 00:20; Admin Dose 1 UNIT; Start 04/20/17 at 00:00 Insulin Glargine (Lantus) 14 unit QHS [place] Last administered on 05/17/17 22:20; Admin Dose 14 UNIT; Start 04/20/17 at 21:00 Metoprolol Tartrate (Lopressor) 25 mg BID PO Last administered on 04/28/17 08: 14; Admin Dose 25 MG; Start 04/23/17 at 09:00; Status Future Hold Hydralazine HCl (Apresoline) 10 mg Q4H PRN IV SBP>170; Start 04/22/17 at 22:00 Nitroglycerin (Nitroglycerin (Sl Tab) 0.4 Mg) 1 tab Q5M PRN SL ANGINA; Start at 18:00 Acetaminophen/ Hydrocodone Bitart ([place] (5/325)) 1 tab Q6H PRN PO PAIN LEVEL 4 -7 Last administered on 05/17/17 05:18; Admin Dose 1 TAB; Start 05/03/17 at 03: 30 Acetaminophen (Tylenol Liquid) 650 mg Q4H PRN GTB PAIN AND OR ELEVATED TEMP Last administered on 05/12/17 18:12; Admin Dose 650 MG; Start 05/03/17 at 03:30 Metoclopramide HCl (Reglan) 5 mg TID IV Last administered on 05/18/17 12:33; Admin Dose 5 MG; Start 05/05/17 at 13:00 Amlodipine Besylate (Norvasc) 5 mg DAILY GTB Last administered on 05/18/17 08: 30; Admin Dose 5 MG; Start 05/07/17 at 09:00 Zinc Acetate/ Diphenhydramine (Benadryl 2% Cr) 1 applic Q8 PRN TOP ITCHING Last administered on 05/18/17 03:31; Admin Dose 1 APPLIC; Start 05/07/17 at 11: 00 Lansoprazole (Prevacid) 30 mg BID@,18 GTB Last administered on 05/18/17 06: 23; Admin Dose 30 MG; Start 05/08/17 at 18:00 Clonidine HCl (Catapres-Tts 1 Patch) 1 patch Q7D TRANSDERM Last administered on 05/15/17 15:11; Admin Dose 1 PATCH; Start 05/08/17 at 15:00 Insulin Aspart (Novolog Insulin Pen) 5 unit Q6 [place] Last administered on 12:38; Admin Dose 5 UNIT; Start 05/16/17 at 18:00 Epoetin Taqueria (Epogen (Esrd)) 2,000 units MoWeFr@17 [place] Last administered on 05/17 18:31; Admin Dose 2,000 UNITS; Start 05/17/17 at 17:00 GEOVANY IBARRA May 18, 2017 13:39
[2017-05-18 13:58] VITALS: BP 122/61; RESP 17
--- NOTE | 2017-05-18 14:29 | CONS ---
Date/Time of Note Date/Time of Note DATE: 05/18/17 TIME: 14:26 Assessment/Plan Assessment/Plan Chief Complaint/Hosp Course 72 y/o with 1.BISI on CKD s/p Hd initiated on 05/06 2.Hypernatremia on HD now 3.HTN > Normotensive 4 Ecoli UTI 5 Sepsis due to #4 resolved 6 Chronic Afib 7 CVA s/p G tube placement 8 Renal cyst 9 Hyperphosphetemia Recs - Next HD tmw - c/w Epogen - c/w Diabeticsource - Insulin manegment per primary - Hold BP meds before HD - Labs am - Pending snif placement Problems: Consultation Date/Type/Reason Admit Date/Time Apr 17, 2017 at 16:39 Initial Consult Date 04/18/17 Type of Consultation: cardiology Referring Provider: PORTIA OLIVER MD 24 HR Interval Summary Free Text/Dictation s/p HD yesterday, tolerated well Exam/Review of Systems Vital Signs Vitals Vital Signs Date Time Temp Pulse Resp B/P Pulse Ox O2 Delivery O2 Flow Rate FiO2 05/18/17 14:09 71 18 99 21 05/18/17 13:58 98.0 122/61 05/15/17 15:16 Room Air Intake and Output 05/17/17 05/17/17 05/18/17 15:00 23:00 07:00 Intake Total 1760 ml 1100 ml Output Total 3050 ml 450 ml Balance -1290 ml 650 ml Exam Exam Constitutional: frail Respiratory: diminished breath sounds Gastrointestinal: other (gt), soft, G t tube Neurological: confused : Flores Results Result Diagram: 05/17/17 0450 05/17/17 0450 Results 24 hrs Laboratory Tests Test 05/17/17 18:13 05/17/17 22:18 05/18/17 00:08 05/18/17 01:21 Bedside Glucose 184 111 141 104 Test 05/18/17 06:21 05/18/17 12:32 Bedside Glucose 136 140 Medications Medications Current Medications Acetaminophen (Tylenol Tab) 650 mg Q6H PRN GTB PAIN AND OR ELEVATED TEMP Last administered on 05/05/17 12:01; Admin Dose 650 MG; Start 04/17/17 at 18:00 Bisacodyl (Dulcolax Supp) 10 mg Q24H [place] Last administered on 05/17/17 18:29; Admin Dose 10 MG; Start 04/17/17 at 18:00 Diphenhydramine HCl (Benadryl) 25 mg Q6H PRN GTB ITCHING Last administered on 21:41; Admin Dose 25 MG; Start 04/17/17 at 18:00 Hydralazine HCl (Apresoline) 50 mg Q8 PRN GTB ELEVATED BLOOD PRESSURE Last administered on 04/18/17 13:18; Admin Dose 50 MG; Start 04/17/17 at 18:00 Multivitamins Therapeutic (Theragran) 1 tab DAILY GTB Last administered on 05/18 08:30; Admin Dose 1 TAB; Start 04/18/17 at 09:00 Miscellaneous Information 1 ea NOTE XX ; Start 04/17/17 at 21:00 Glucose (Glutose) 15 gm Q15M PRN PO DECREASED GLUCOSE; Start 04/17/17 at 21:00 Glucose (Glutose) 22.5 gm Q15M PRN PO DECREASED GLUCOSE; Start 04/17/17 at 21: 00 Dextrose (D50w Syringe) 25 ml Q15M PRN IV DECREASED GLUCOSE Last administered on 04/20/17 17:22; Admin Dose 25 ML; Start 04/17/17 at 21:00 Dextrose (D50w Syringe) 50 ml Q15M PRN IV DECREASED GLUCOSE Last administered on 05/06/17 06:24; Admin Dose 50 ML; Start 04/17/17 at 21:00 Glucagon (Glucagen) 1 mg Q15M PRN IM DECREASED GLUCOSE; Start 04/17/17 at 21:00 Glucose (Glutose) 15 gm Q15M PRN BUCCAL DECREASED GLUCOSE; Start 04/17/17 at 21 :00 Ondansetron HCl (Zofran Inj) 4 mg Q6H PRN IV NAUSEA AND/OR VOMITING; Start at 00:30 Insulin Aspart (Novolog Insulin Pen) (Adult SC Insulin - Mild Algorithm)... Q6 [place] Last administered on 05/18/17 00:20; Admin Dose 1 UNIT; Start 04/20/17 at 00:00 Insulin Glargine (Lantus) 14 unit QHS [place] Last administered on 05/17/17 22:20; Admin Dose 14 UNIT; Start 04/20/17 at 21:00 Metoprolol Tartrate (Lopressor) 25 mg BID PO Last administered on 04/28/17 08: 14; Admin Dose 25 MG; Start 04/23/17 at 09:00; Status Future Hold Hydralazine HCl (Apresoline) 10 mg Q4H PRN IV SBP>170; Start 04/22/17 at 22:00 Nitroglycerin (Nitroglycerin (Sl Tab) 0.4 Mg) 1 tab Q5M PRN SL ANGINA; Start at 18:00 Acetaminophen/ Hydrocodone Bitart ([place] (5/325)) 1 tab Q6H PRN PO PAIN LEVEL 4 -7 Last administered on 05/17/17 05:18; Admin Dose 1 TAB; Start 05/03/17 at 03: 30 Acetaminophen (Tylenol Liquid) 650 mg Q4H PRN GTB PAIN AND OR ELEVATED TEMP Last administered on 05/12/17 18:12; Admin Dose 650 MG; Start 05/03/17 at 03:30 Metoclopramide HCl (Reglan) 5 mg TID IV Last administered on 05/18/17 12:33; Admin Dose 5 MG; Start 05/05/17 at 13:00 Amlodipine Besylate (Norvasc) 5 mg DAILY GTB Last administered on 05/18/17 08: 30; Admin Dose 5 MG; Start 05/07/17 at 09:00 Zinc Acetate/ Diphenhydramine (Benadryl 2% Cr) 1 applic Q8 PRN TOP ITCHING Last administered on 05/18/17 03:31; Admin Dose 1 APPLIC; Start 05/07/17 at 11: 00 Lansoprazole (Prevacid) 30 mg BID@06,18 GTB Last administered on 05/18/17 06: 23; Admin Dose 30 MG; Start 05/08/17 at 18:00 Clonidine HCl (Catapres-Tts 1 Patch) 1 patch Q7D TRANSDERM Last administered on 05/15/17 15:11; Admin Dose 1 PATCH; Start 05/08/17 at 15:00 Insulin Aspart (Novolog Insulin Pen) 5 unit Q6 [place] Last administered on 12:38; Admin Dose 5 UNIT; Start 05/16/17 at 18:00 Epoetin Taqueria (Epogen (Esrd)) 2,000 units MoWeFr@17 [place] Last administered on 05/17t 18:31; Admin Dose 2,000 UNITS; Start 05/17/17 at 17:00 PORTIA OLIVER MD May 18, 2017 14:29
[2017-05-18] MEDS: BISACODYL 10 MG SUPP PR SCH (17:11)
[2017-05-18 19:36] VITALS: BP 166/74; RESP 18
[2017-05-18] MEDS: DEXTROSE 50% 50 ML SYRINGE IV PRN (20:46)
[2017-05-18 21:09] VITALS: BP 120/56; RESP 18
[2017-05-18] MEDS: INSULIN GLARGINE [LANtus] 3 ML PEN SC SCH (21:33)
[2017-05-19] MEDS: INSULIN ASPART [NOVOLOG] 3 ML PEN SC SCH ×4 (00:34→18:11)
[2017-05-19] MEDS: ALBUTEROL/IPRATROPIUM (NEB) 3 ML AMP HHN SCH ×4 (01:16→19:00)
[2017-05-19 01:59] VITALS: BP 136/64; RESP 19
[2017-05-19 05:30] LABS: BASOPHIL # 0.1 10^3/ul (0.0-0.1); BASOPHILS % 0.5 % (0.0-2.0); EOSINOPHILS # 1.2 10^3/ul (0.0-0.5); EOSINOPHILS % 10.5 % (0.0-7.0); HEMATOCRIT 27.4 % (42.0-52.0); HEMOGLOBIN 8.6 g/dl (14.0-18.0); LYMPHOCYTES % 18.2 % (15.0-51.0); MEAN CORPUSCULAR HEMOGLOBIN 28.9 pg (29.0-33.0); MEAN CORPUSCULAR HGB CONC 31.4 g/dl (32.0-37.0); MEAN CORPUSCULAR VOLUME 91.9 fl (82.0-101.0); MEAN PLATELET VOLUME 11.7 fl (7.4-10.4); MONOCYTES % 9.5 % (0.0-11.0); NEUTROPHIL # 6.6 10^3/ul (1.6-7.5); NEUTROPHILS % 60.4 % (39.0-77.0); PLATELET COUNT 256 10^3/UL (140-415); RED BLOOD COUNT 2.98 10^6/ul (4.70-6.10); RED CELL DISTRIBUTION WIDTH 19.9 % (11.5-14.5); WHITE BLOOD COUNT 10.9 10^3/ul (4.8-10.8)
[2017-05-19] MEDS: Insulin NOVOLOG SS MILD Algorithm (NPO/TPN/ENTERAL FEEDS) SC SCH ×4 (05:47→18:12)
[2017-05-19] MEDS: LANSOPRAZOLE 30 MG CAP GTB SCH ×2 (05:48→18:03)
[2017-05-19 06:11] LABS: CALCIUM 8.4 mg/dl (8.4-10.2); CREATININE 2.84 mg/dl (0.61-1.24); POTASSIUM 5.5 mmol/L (3.5-5.1)
[2017-05-19 06:15] VITALS: BP 141/71; RESP 19
[2017-05-19 07:32] VITALS: BP 140/63; RESP 18
[2017-05-19] MEDS: METOCLOPRAMIDE 10 MG INJ IV SCH ×3 (08:31→21:10)
[2017-05-19] MEDS: AMLODIPINE 5 MG TAB GTB SCH (08:31)
[2017-05-19] MEDS: MULTIVITAMINS THERAPEUTIC TAB GTB SCH (08:31)
--- NOTE | 2017-05-19 10:01 | CONS ---
Date/Time of Note Date/Time of Note DATE: 05/19/17 TIME: 10:00 Assessment/Plan Assessment/Plan Additional Assessment/Plan 1.HTN-somewhat labile today - HD as needed, will monitor clinically now - will monitor clinically 2.H/O PAF-Remains in SR at this time - OFF TELE NOW - rate controled 3.renal failure - renal team follows 4.dysphagia 5. AMS - more alert - stable - with agitioon now 6. Heart acaql-hdbfgdjpi-yfethn HR.improved with holding BB overall some intermittent recurrence - now rate stable 7. Chest pain-resolved/negative troponin/no change on serial ecg - no intervention planned 8. Occasional PVC's 9. CHF-diastolic CHRIONIC - good fluid status now 10.UTI 11.anemia Consultation Date/Type/Reason Admit Date/Time Apr 17, 2017 at 16:39 Initial Consult Date 04/18/17 Type of Consultation: cardiology Referring Provider: PORTIA OLIVER MD 24 HR Interval Summary Free Text/Dictation NO acute events - VS stable - agitated when awake ROS: No fever, no chills, no nausea, no vomiting, no diarrhea/constipation No recent weight changes No chest pain, no PND, no orthopnea No dizziness, blurred vision No thirst, no heat or cold intolerance (per nurse) Exam/Review of Systems Vital Signs Vitals Vital Signs Date Time Temp Pulse Resp B/P Pulse Ox O2 Delivery O2 Flow Rate FiO2 05/19/17 08:36 81 20 98 21 05/19/17 07:32 97.7 140/63 05/15/17 15:16 Room Air Intake and Output 05/18/17 05/18/17 05/19/17 15:00 23:00 07:00 Intake Total 1180 ml 1100 ml Output Total 900 ml 1100 ml Balance 280 ml 0 ml Exam General: WN/WD/NAD, AOx 0 HEENT: Unicetric/atraumatic/EOMI (does not follow commands) NECK: JVD elevated, no thyromegaly Lymph: no lymphadenopathy HEART: regular with no S3, II/ systolic murmur at apex LUNGS: Coarse sounds ABD: soft, NT, ND, +BS : Intact Neuro: non focal SKIN: chronic changes EXT: trace edema Results Result Diagram: 05/19/17 0443 05/19/17442 Results 24 hrs Laboratory Tests Test 05/18/17 12:32 05/18/17 17:41 05/18/17 20:41 05/18/17 21:06 Bedside Glucose 140 118 61 L 179 Test 05/18/17 21:21 05/19/17 00:30 05/19/17 04:43 05/19/17 05:46 Bedside Glucose 162 165 134 White Blood Count 10.9 #H Red Blood Count 2.98 L Hemoglobin 8.6 L Hematocrit 27.4 L Mean Corpuscular Volume 91.9 Mean Corpuscular Hemoglobin 28.9 L Mean Corpuscular Hemoglobin Concent 31.4 L Red Cell Distribution Width 19.9 H Platelet Count 256 Mean Platelet Volume 11.7 H Neutrophils % 60.4 Lymphocytes % 18.2 Monocytes % 9.5 Eosinophils % 10.5 H Basophils % 0.5 Nucleated Red Blood Cells % 0.0 Neutrophils # 6.6 Lymphocytes # 2.0 Monocytes # 1.0 H Eosinophils # 1.2 H Basophils # 0.1 Nucleated Red Blood Cells # 0.0 Sodium Level 140 Potassium Level 5.5 H Chloride Level 104 Carbon Dioxide Level 32 H Anion Gap 10 Blood Urea Nitrogen 79 H Creatinine 2.84 H Glucose Level 103 # Calcium Level 8.4 Medications Medications Current Medications Acetaminophen (Tylenol Tab) 650 mg Q6H PRN GTB PAIN AND OR ELEVATED TEMP Last administered on 05/05/17 12:01; Admin Dose 650 MG; Start 04/17/17 at 18:00 Bisacodyl (Dulcolax Supp) 10 mg Q24H [place] Last administered on 05/18/17 17:11; Admin Dose 10 MG; Start 04/17/17 at 18:00 Diphenhydramine HCl (Benadryl) 25 mg Q6H PRN GTB ITCHING Last administered on 21:41; Admin Dose 25 MG; Start 04/17/17 at 18:00 Hydralazine HCl (Apresoline) 50 mg Q8 PRN GTB ELEVATED BLOOD PRESSURE Last administered on 04/18/17 13:18; Admin Dose 50 MG; Start 04/17/17 at 18:00 Multivitamins Therapeutic (Theragran) 1 tab DAILY GTB Last administered on 05/19 08:31; Admin Dose 1 TAB; Start 04/18/17 at 09:00 Miscellaneous Information 1 ea NOTE XX ; Start 04/17/17 at 21:00 Glucose (Glutose) 15 gm Q15M PRN PO DECREASED GLUCOSE; Start 04/17/17 at 21:00 Glucose (Glutose) 22.5 gm Q15M PRN PO DECREASED GLUCOSE; Start 04/17/17 at 21: 00 Dextrose (D50w Syringe) 25 ml Q15M PRN IV DECREASED GLUCOSE Last administered on 05/18/17 20:46; Admin Dose 25 ML; Start 04/17/17 at 21:00 Dextrose (D50w Syringe) 50 ml Q15M PRN IV DECREASED GLUCOSE Last administered on 05/06/17 06:24; Admin Dose 50 ML; Start 04/17/17 at 21:00 Glucagon (Glucagen) 1 mg Q15M PRN IM DECREASED GLUCOSE; Start 04/17/17 at 21:00 Glucose (Glutose) 15 gm Q15M PRN BUCCAL DECREASED GLUCOSE; Start 04/17/17 at 21 :00 Ondansetron HCl (Zofran Inj) 4 mg Q6H PRN IV NAUSEA AND/OR VOMITING; Start at 00:30 Insulin Aspart (Novolog Insulin Pen) (Adult SC Insulin - Mild Algorithm)... Q6 [place] Last administered on 05/18/17 00:20; Admin Dose 1 UNIT; Start 04/20/17 at 00:00 Insulin Glargine (Lantus) 14 unit QHS [place] Last administered on 05/18/17 21:33; Admin Dose 14 UNIT; Start 04/20/17 at 21:00 Metoprolol Tartrate (Lopressor) 25 mg BID PO Last administered on 04/28/17 08: 14; Admin Dose 25 MG; Start 04/23/17 at 09:00; Status Future Hold Hydralazine HCl (Apresoline) 10 mg Q4H PRN IV SBP>170; Start 04/22/17 at 22:00 Nitroglycerin (Nitroglycerin (Sl Tab) 0.4 Mg) 1 tab Q5M PRN SL ANGINA; Start at 18:00 Acetaminophen/ Hydrocodone Bitart ([place] (5/325)) 1 tab Q6H PRN PO PAIN LEVEL 4 -7 Last administered on 05/17/17 05:18; Admin Dose 1 TAB; Start 05/03/17 at 03: 30 Acetaminophen (Tylenol Liquid) 650 mg Q4H PRN GTB PAIN AND OR ELEVATED TEMP Last administered on 05/12/17 18:12; Admin Dose 650 MG; Start 05/03/17 at 03:30 Metoclopramide HCl (Reglan) 5 mg TID IV Last administered on 05/19/17 08:31; Admin Dose 5 MG; Start 05/05/17 at 13:00 Amlodipine Besylate (Norvasc) 5 mg DAILY GTB Last administered on 05/19/17 08: 31; Admin Dose 5 MG; Start 05/07/17 at 09:00 Zinc Acetate/ Diphenhydramine (Benadryl 2% Cr) 1 applic Q8 PRN TOP ITCHING Last administered on 05/18/17 03:31; Admin Dose 1 APPLIC; Start 05/07/17 at 11: 00 Lansoprazole (Prevacid) 30 mg BID@06,18 GTB Last administered on 05/19/17 05: 48; Admin Dose 30 MG; Start 05/08/17 at 18:00 Clonidine HCl (Catapres-Tts 1 Patch) 1 patch Q7D TRANSDERM Last administered on 05/15/17 15:11; Admin Dose 1 PATCH; Start 05/08/17 at 15:00 Epoetin Taqueria (Epogen (Esrd)) 2,000 units MoWeFr@17 [place] Last administered on 05/17 18:31; Admin Dose 2,000 UNITS; Start 05/17/17 at 17:00 Insulin Aspart (Novolog Insulin Pen) 3 unit Q6 [place] Last administered on 06:17; Admin Dose 3 UNIT; Start 05/19/17 at 00:00 HERBERTH ZUNIGA MD May 19, 2017 10:01
[2017-05-19] MEDS: DIPHENHYDRAMINE 25 MG CAP GTB PRN (12:30)
--- NOTE | 2017-05-19 12:50 | CONS ---
Date/Time of Note Date/Time of Note DATE: 05/19/17 TIME: 12:47 Assessment/Plan Assessment/Plan Chief Complaint/Hosp Course 72 y/o with 1.BISI on CKD s/p Hd initiated on 05/06 2. H/O of Hypernatremia on HD now 3.HTN > Normotensive 4 Ecoli UTI 5 Sepsis due to #4 resolved 6 Chronic Afib 7 CVA s/p G tube placement 8 Renal cyst 9 Hyperphosphetemia Recs - Will give Kayexalte today - Plans were to do HD twice/ week but might be thrice a week now - Reassess again after Kayexalte - c/w Epogen - c/w Diabeticsource - Insulin manegment per primary - Hold BP meds before HD - Labs am - Pending snif placement Problems: Consultation Date/Type/Reason Admit Date/Time Apr 17, 2017 at 16:39 Initial Consult Date 04/18/17 Type of Consultation: Renal Referring Provider: PORTIA OLIVER MD 24 HR Interval Summary Free Text/Dictation No acute events K 5.5 today Exam/Review of Systems Vital Signs Vitals Vital Signs Date Time Temp Pulse Resp B/P Pulse Ox O2 Delivery O2 Flow Rate FiO2 05/19/17 08:36 81 20 98 21 05/19/17 07:32 97.7 140/63 05/15/17 15:16 Room Air Intake and Output 05/18/17 05/18/17 05/19/17 15:00 23:00 07:00 Intake Total 1180 ml 1100 ml Output Total 900 ml 1100 ml Balance 280 ml 0 ml Exam Constitutional: frail Respiratory: diminished breath sounds Gastrointestinal: other (gt), soft, G t tube Neurological: confused : Flores Results Result Diagram: 05/19/17 0443 05/19/17 0443 Results 24 hrs Laboratory Tests Test 05/18/17 17:41 05/18/17 20:41 05/18/17 21:06 05/18/17 21:21 Bedside Glucose 118 61 L 179 162 Test 05/19/17 00:30 05/19/17 04:43 05/19/17 05:46 05/19/17 12:25 Bedside Glucose 165 134 141 White Blood Count 10.9 #H Red Blood Count 2.98 L Hemoglobin 8.6 L Hematocrit 27.4 L Mean Corpuscular Volume 91.9 Mean Corpuscular Hemoglobin 28.9 L Mean Corpuscular Hemoglobin Concent 31.4 L Red Cell Distribution Width 19.9 H Platelet Count 256 Mean Platelet Volume 11.7 H Neutrophils % 60.4 Lymphocytes % 18.2 Monocytes % 9.5 Eosinophils % 10.5 H Basophils % 0.5 Nucleated Red Blood Cells % 0.0 Neutrophils # 6.6 Lymphocytes # 2.0 Monocytes # 1.0 H Eosinophils # 1.2 H Basophils # 0.1 Nucleated Red Blood Cells # 0.0 Sodium Level 140 Potassium Level 5.5 H Chloride Level 104 Carbon Dioxide Level 32 H Anion Gap 10 Blood Urea Nitrogen 79 H Creatinine 2.84 H Glucose Level 103 # Calcium Level 8.4 Medications Medications Current Medications Acetaminophen (Tylenol Tab) 650 mg Q6H PRN GTB PAIN AND OR ELEVATED TEMP Last administered on 05/05/17 12:01; Admin Dose 650 MG; Start 04/17/17 at 18:00 Bisacodyl (Dulcolax Supp) 10 mg Q24H [place] Last administered on 05/18/17 17:11; Admin Dose 10 MG; Start 04/17/17 at 18:00 Diphenhydramine HCl (Benadryl) 25 mg Q6H PRN GTB ITCHING Last administered on 12:30; Admin Dose 25 MG; Start 04/17/17 at 18:00 Hydralazine HCl (Apresoline) 50 mg Q8 PRN GTB ELEVATED BLOOD PRESSURE Last administered on 04/18/17 13:18; Admin Dose 50 MG; Start 04/17/17 at 18:00 Multivitamins Therapeutic (Theragran) 1 tab DAILY GTB Last administered on 05/19 08:31; Admin Dose 1 TAB; Start 04/18/17 at 09:00 Miscellaneous Information 1 ea NOTE XX ; Start 04/17/17 at 21:00 Glucose (Glutose) 15 gm Q15M PRN PO DECREASED GLUCOSE; Start 04/17/17 at 21:00 Glucose (Glutose) 22.5 gm Q15M PRN PO DECREASED GLUCOSE; Start 04/17/17 at 21: 00 Dextrose (D50w Syringe) 25 ml Q15M PRN IV DECREASED GLUCOSE Last administered on 05/18/17 20:46; Admin Dose 25 ML; Start 04/17/17 at 21:00 Dextrose (D50w Syringe) 50 ml Q15M PRN IV DECREASED GLUCOSE Last administered on 05/06/17 06:24; Admin Dose 50 ML; Start 04/17/17 at 21:00 Glucagon (Glucagen) 1 mg Q15M PRN IM DECREASED GLUCOSE; Start 04/17/17 at 21:00 Glucose (Glutose) 15 gm Q15M PRN BUCCAL DECREASED GLUCOSE; Start 04/17/17 at 21 :00 Ondansetron HCl (Zofran Inj) 4 mg Q6H PRN IV NAUSEA AND/OR VOMITING; Start at 00:30 Insulin Aspart (Novolog Insulin Pen) (Adult SC Insulin - Mild Algorithm)... Q6 [place] Last administered on 05/19/17 12:32; Admin Dose 1 UNIT; Start 04/20/17 at 00:00 Insulin Glargine (Lantus) 14 unit QHS [place] Last administered on 05/18/17 21:33; Admin Dose 14 UNIT; Start 04/20/17 at 21:00 Metoprolol Tartrate (Lopressor) 25 mg BID PO Last administered on 04/28/17 08: 14; Admin Dose 25 MG; Start 04/23/17 at 09:00; Status Future Hold Hydralazine HCl (Apresoline) 10 mg Q4H PRN IV SBP>170; Start 04/22/17 at 22:00 Nitroglycerin (Nitroglycerin (Sl Tab) 0.4 Mg) 1 tab Q5M PRN SL ANGINA; Start at 18:00 Acetaminophen/ Hydrocodone Bitart ([place] (5/325)) 1 tab Q6H PRN PO PAIN LEVEL 4 -7 Last administered on 05/17/17 05:18; Admin Dose 1 TAB; Start 05/03/17 at 03: 30 Acetaminophen (Tylenol Liquid) 650 mg Q4H PRN GTB PAIN AND OR ELEVATED TEMP Last administered on 05/12/17 18:12; Admin Dose 650 MG; Start 05/03/17 at 03:30 Metoclopramide HCl (Reglan) 5 mg TID IV Last administered on 05/19/17 12:30; Admin Dose 5 MG; Start 05/05/17 at 13:00 Amlodipine Besylate (Norvasc) 5 mg DAILY GTB Last administered on 05/19/17 08: 31; Admin Dose 5 MG; Start 05/07/17 at 09:00 Zinc Acetate/ Diphenhydramine (Benadryl 2% Cr) 1 applic Q8 PRN TOP ITCHING Last administered on 05/18/17 03:31; Admin Dose 1 APPLIC; Start 05/07/17 at 11: 00 Lansoprazole (Prevacid) 30 mg BID@06,18 GTB Last administered on 05/19/17 05: 48; Admin Dose 30 MG; Start 05/08/17 at 18:00 Clonidine HCl (Catapres-Tts 1 Patch) 1 patch Q7D TRANSDERM Last administered on 05/15/17 15:11; Admin Dose 1 PATCH; Start 05/08/17 at 15:00 Epoetin Taqueria (Epogen (Esrd)) 2,000 units MoWeFr@17 [place] Last administered on 05/17 18:31; Admin Dose 2,000 UNITS; Start 05/17/17 at 17:00 Insulin Aspart (Novolog Insulin Pen) 3 unit Q6 [place] Last administered on 12:31; Admin Dose 3 UNIT; Start 05/19/17 at 00:00 PORTIA OLIVER MD May 19, 2017 12:50
[2017-05-19] MEDS ORDERED: NA POLYST SULFON 15 GM/60 ML BTL GTB ONE (13:00)
[2017-05-19 14:00] VITALS: BP 129/62; RESP 18
--- NOTE | 2017-05-19 14:10 | RADRPT ---
Vent Rate: 84 bpm RR Interval: 0 msec ND Interval: 264 msec QRS Duration: 122 msec QT Interval: 402 msec QTC Interval: 475 msec P-R-T [place]: 81 - 74 - 65 degrees Sinus rhythm with 1st degree AV block Right bundle branch block Abnormal ECG Electronically Signed By: Parish Brumfield [id number]
[2017-05-19 16:44] LABS: CALCIUM 8.8 mg/dl (8.4-10.2); CREATININE 3.16 mg/dl (0.61-1.24); POTASSIUM 5.5 mmol/L (3.5-5.1)
[2017-05-19] MEDS: BISACODYL 10 MG SUPP PR SCH (18:00)
[2017-05-19] MEDS: EPOETIN 2000 UNITS/1 ML INJ (ESRD) SC SCH (18:05)
--- NOTE | 2017-05-19 18:10 | PN ---
Date/Time of Note Date/Time of Note DATE: 05/19/17 TIME: 18:09 Assessment/Plan VTE Prophylaxis VTE Prophylaxis Intervention: SCD's Lines/Catheters IV Catheter Type (from Nrs): permacath Urinary Cath still in place: Yes Reason Cath still needed: urinary retention Assessment/Plan Chief Complaint/Hosp Course Patient remains hemodynamically stable, with periods of agitation due to anxiety , patient denies pain. Assessment/Plan - Acute kidney injury on chronic kidney disease. Continue hemodialysis per renal. Dr. Cheema is following in nephrology consultation. - Protein calorie malnutrition, increase G-tube feeding according to nursing home aide recommendations - Status post post urinary tract infection. - History of cerebrovascular accident - Diabetes mellitus. Continue Lantus and NovoLog. - Diastolic congestive heart failure. Continue to monitor intake and output. - Paroxysmal atrial fibrillation, currently in sinus rhythm. - Hypertension. Continue Norvasc. - Hyperlipidemia. Continue statin. - Urinary retention with Flores catheter. - Dysphagia, status post PEG placement - Anemia of chronic disease, continue Epogen. 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 Plan of care discussed with Dr. Patel Problems: Exam/Review of Systems Vital Signs Vitals Vital Signs Date Time Temp Pulse Resp B/P Pulse Ox O2 Delivery O2 Flow Rate FiO2 05/19/17 14:31 88 20 99 21 05/19/17 14:00 98.0 129/62 05/15/17 15:16 Room Air Intake and Output 05/18/17 05/18/17 05/19/17 15:00 23:00 07:00 Intake Total 1180 ml 1100 ml Output Total 900 ml 1100 ml Balance 280 ml 0 ml Exam Constitutional: alert Neck: supple Respiratory: normal air movement Cardiovascular: RRR Gastrointestinal: other, soft Extremities: normal pulses (Tube) Additional Comments Right IJ permacath Results Result Diagram: 05/19/17 0443 05/19/17 1534 Results 24 hrs Laboratory Tests Test 05/18/17 20:41 05/18/17 21:06 05/18/17 21:21 05/19/17 00:30 Bedside Glucose 61 L 179 162 165 Test 05/19/17 04:43 05/19/17 05:46 05/19/17 12:25 05/19/17 15:34 White Blood Count 10.9 #H Red Blood Count 2.98 L Hemoglobin 8.6 L Hematocrit 27.4 L Mean Corpuscular Volume 91.9 Mean Corpuscular Hemoglobin 28.9 L Mean Corpuscular Hemoglobin Concent 31.4 L Red Cell Distribution Width 19.9 H Platelet Count 256 Mean Platelet Volume 11.7 H Neutrophils % 60.4 Lymphocytes % 18.2 Monocytes % 9.5 Eosinophils % 10.5 H Basophils % 0.5 Nucleated Red Blood Cells % 0.0 Neutrophils # 6.6 Lymphocytes # 2.0 Monocytes # 1.0 H Eosinophils # 1.2 H Basophils # 0.1 Nucleated Red Blood Cells # 0.0 Sodium Level 140 142 Potassium Level 5.5 H 5.5 H Chloride Level 104 105 Carbon Dioxide Level 32 H 31 Anion Gap 10 12 Blood Urea Nitrogen 79 H 84 H Creatinine 2.84 H 3.16 H Glucose Level 103 # 95 Calcium Level 8.4 8.8 Bedside Glucose 134 141 Medications Medications Current Medications Acetaminophen (Tylenol Tab) 650 mg Q6H PRN GTB PAIN AND OR ELEVATED TEMP Last administered on 05/05/17 12:01; Admin Dose 650 MG; Start 04/17/17 at 18:00 Bisacodyl (Dulcolax Supp) 10 mg Q24H [place] Last administered on 05/18/17 17:11; Admin Dose 10 MG; Start 04/17/17 at 18:00 Diphenhydramine HCl (Benadryl) 25 mg Q6H PRN GTB ITCHING Last administered on 12:30; Admin Dose 25 MG; Start 04/17/17 at 18:00 Hydralazine HCl (Apresoline) 50 mg Q8 PRN GTB ELEVATED BLOOD PRESSURE Last administered on 04/18/17 13:18; Admin Dose 50 MG; Start 04/17/17 at 18:00 Multivitamins Therapeutic (Theragran) 1 tab DAILY GTB Last administered on 05/19 08:31; Admin Dose 1 TAB; Start 04/18/17 at 09:00 Miscellaneous Information 1 ea NOTE XX ; Start 04/17/17 at 21:00 Glucose (Glutose) 15 gm Q15M PRN PO DECREASED GLUCOSE; Start 04/17/17 at 21:00 Glucose (Glutose) 22.5 gm Q15M PRN PO DECREASED GLUCOSE; Start 04/17/17 at 21: 00 Dextrose (D50w Syringe) 25 ml Q15M PRN IV DECREASED GLUCOSE Last administered on 05/18/17 20:46; Admin Dose 25 ML; Start 04/17/17 at 21:00 Dextrose (D50w Syringe) 50 ml Q15M PRN IV DECREASED GLUCOSE Last administered on 05/06/17 06:24; Admin Dose 50 ML; Start 04/17/17 at 21:00 Glucagon (Glucagen) 1 mg Q15M PRN IM DECREASED GLUCOSE; Start 04/17/17 at 21:00 Glucose (Glutose) 15 gm Q15M PRN BUCCAL DECREASED GLUCOSE; Start 04/17/17 at 21 :00 Ondansetron HCl (Zofran Inj) 4 mg Q6H PRN IV NAUSEA AND/OR VOMITING; Start at 00:30 Insulin Aspart (Novolog Insulin Pen) (Adult SC Insulin - Mild Algorithm)... Q6 [place] Last administered on 05/19/17 12:32; Admin Dose 1 UNIT; Start 04/20/17 at 00:00 Insulin Glargine (Lantus) 14 unit QHS [place] Last administered on 05/18/17 21:33; Admin Dose 14 UNIT; Start 04/20/17 at 21:00 Metoprolol Tartrate (Lopressor) 25 mg BID PO Last administered on 04/28/17 08: 14; Admin Dose 25 MG; Start 04/23/17 at 09:00; Status Future Hold Hydralazine HCl (Apresoline) 10 mg Q4H PRN IV SBP>170; Start 04/22/17 at 22:00 Nitroglycerin (Nitroglycerin (Sl Tab) 0.4 Mg) 1 tab Q5M PRN SL ANGINA; Start at 18:00 Acetaminophen/ Hydrocodone Bitart ([place] (5/325)) 1 tab Q6H PRN PO PAIN LEVEL 4 -7 Last administered on 05/17/17 05:18; Admin Dose 1 TAB; Start 05/03/17 at 03: 30 Acetaminophen (Tylenol Liquid) 650 mg Q4H PRN GTB PAIN AND OR ELEVATED TEMP Last administered on 05/12/17 18:12; Admin Dose 650 MG; Start 05/03/17 at 03:30 Metoclopramide HCl (Reglan) 5 mg TID IV Last administered on 05/19/17 12:30; Admin Dose 5 MG; Start 05/05/17 at 13:00 Amlodipine Besylate (Norvasc) 5 mg DAILY GTB Last administered on 05/19/17 08: 31; Admin Dose 5 MG; Start 05/07/17 at 09:00 Zinc Acetate/ Diphenhydramine (Benadryl 2% Cr) 1 applic Q8 PRN TOP ITCHING Last administered on 05/18/17 03:31; Admin Dose 1 APPLIC; Start 05/07/17 at 11: 00 Lansoprazole (Prevacid) 30 mg BID@06,18 GTB Last administered on 05/19/17 18: 03; Admin Dose 30 MG; Start 05/08/17 at 18:00 Clonidine HCl (Catapres-Tts 1 Patch) 1 patch Q7D TRANSDERM Last administered on 05/15/17 15:11; Admin Dose 1 PATCH; Start 05/08/17 at 15:00 Epoetin Taqueria (Epogen (Esrd)) 2,000 units MoWeFr@17 [place] Last administered on 05/19 18:05; Admin Dose 2,000 UNITS; Start 05/17/17 at 17:00 Insulin Aspart (Novolog Insulin Pen) 3 unit Q6 [place] Last administered on 12:31; Admin Dose 3 UNIT; Start 05/19/17 at 00:00 Alprazolam (Xanax) 0.5 mg Q6H PRN JT ANXIETY; Start 05/19/17 at 18:30; Status GEOVANY ARBOLEDA May 19, 2017 18:10
[2017-05-19] MEDS: ALPRAZOLAM 0.5 MG TAB JT PRN (18:49)
[2017-05-19 19:52] VITALS: BP 130/61; RESP 19
[2017-05-19] MEDS: INSULIN GLARGINE [LANtus] 3 ML PEN SC SCH (21:22)
[2017-05-20] VITALS (9 sets, daily range): BP systolic 96–138; BP diastolic 50–77; PULSE 78–93; RESP 18–19
[2017-05-20] MEDS: ALBUTEROL/IPRATROPIUM (NEB) 3 ML AMP HHN SCH ×4 (01:13→21:08)
[2017-05-20] MEDS: INSULIN ASPART [NOVOLOG] 3 ML PEN SC SCH ×5 (01:16→23:57)
[2017-05-20] MEDS: Insulin NOVOLOG SS MILD Algorithm (NPO/TPN/ENTERAL FEEDS) SC SCH ×5 (01:17→23:59)
[2017-05-20 05:19] LABS: BASOPHIL # 0.1 10^3/ul (0.0-0.1); BASOPHILS % 0.6 % (0.0-2.0); EOSINOPHILS # 1.3 10^3/ul (0.0-0.5); EOSINOPHILS % 11.8 % (0.0-7.0); HEMATOCRIT 26.7 % (42.0-52.0); HEMOGLOBIN 8.2 g/dl (14.0-18.0); LYMPHOCYTES % 19.1 % (15.0-51.0); MEAN CORPUSCULAR HEMOGLOBIN 28.3 pg (29.0-33.0); MEAN CORPUSCULAR HGB CONC 30.7 g/dl (32.0-37.0); MEAN CORPUSCULAR VOLUME 92.1 fl (82.0-101.0); MEAN PLATELET VOLUME 12.4 fl (7.4-10.4); MONOCYTES % 9.2 % (0.0-11.0); NEUTROPHIL # 6.2 10^3/ul (1.6-7.5); NEUTROPHILS % 58.2 % (39.0-77.0); PLATELET COUNT 279 10^3/UL (140-415); RED CELL DISTRIBUTION WIDTH 20.4 % (11.5-14.5); WHITE BLOOD COUNT 10.6 10^3/ul (4.8-10.8)
[2017-05-20 05:41] LABS: CALCIUM 8.4 mg/dl (8.4-10.2); CREATININE 3.19 mg/dl (0.61-1.24); POTASSIUM 4.2 mmol/L (3.5-5.1)
[2017-05-20] MEDS: LANSOPRAZOLE 30 MG CAP GTB SCH ×2 (05:59→17:55)
[2017-05-20] MEDS ORDERED: VITAMIN A & D 5 GM OINT PACKET TOP ONE (06:33)
[2017-05-20] MEDS: AMLODIPINE 5 MG TAB GTB SCH (08:12)
[2017-05-20] MEDS: METOCLOPRAMIDE 10 MG INJ IV SCH ×3 (08:21→21:26)
[2017-05-20] MEDS: MULTIVITAMINS THERAPEUTIC TAB GTB SCH (08:21)
[2017-05-20] MEDS: ALPRAZOLAM 0.5 MG TAB JT PRN (10:20)
--- NOTE | 2017-05-20 11:09 | CONS ---
Date/Time of Note Date/Time of Note DATE: 05/20/17 TIME: 11:09 Assessment/Plan Assessment/Plan Chief Complaint/Hosp Course 72 y/o with 1.BISI on CKD s/p Hd initiated on 05/06 2. H/O of Hypernatremia on HD now 3.HTN > Normotensive 4 Ecoli UTI 5 Sepsis due to #4 resolved 6 Chronic Afib 7 CVA s/p G tube placement 8 Renal cyst 9 Hyperphosphetemia Recs - HD today - Plans were to do HD twice/ week but might be thrice a week now - c/w Epogen - c/w Diabeticsource - Insulin manegment per primary - Hold BP meds before HD - Labs am - Pending snif placement Problems: Consultation Date/Type/Reason Admit Date/Time Apr 17, 2017 at 16:39 Initial Consult Date 04/18/17 Type of Consultation: Renal Referring Provider: PORTIA OLIVER MD 24 HR Interval Summary Free Text/Dictation No acute events Exam/Review of Systems Vital Signs Vitals Vital Signs Date Time Temp Pulse Resp B/P Pulse Ox O2 Delivery O2 Flow Rate FiO2 05/20/17 07:33 84 22 97 05/20/17 02:00 98.4 117/59 05/19/17 19:00 21 Intake and Output 05/19/17 05/19/17 05/20/17 15:00 23:00 07:00 Intake Total 1260 ml 880 ml Output Total 1000 ml 700 ml Balance 260 ml 180 ml Exam Constitutional: frail Respiratory: diminished breath sounds Gastrointestinal: other (gt), soft, G t tube Neurological: confused : Flores Results Result Diagram: 05/20/17 0440 05/20/17 0440 Results 24 hrs Laboratory Tests Test 05/19/17 12:25 05/19/17 15:34 05/19/17 18:08 05/19/17 21:18 Bedside Glucose 141 157 149 Sodium Level 142 Potassium Level 5.5 H Chloride Level 105 Carbon Dioxide Level 31 Anion Gap 12 Blood Urea Nitrogen 84 H Creatinine 3.16 H Glucose Level 95 Calcium Level 8.8 Test 05/20/17 01:09 05/20/17 04:40 05/20/17 05:51 Bedside Glucose 154 118 White Blood Count 10.6 Red Blood Count 2.90 L Hemoglobin 8.2 L Hematocrit 26.7 L Mean Corpuscular Volume 92.1 Mean Corpuscular Hemoglobin 28.3 L Mean Corpuscular Hemoglobin Concent 30.7 L Red Cell Distribution Width 20.4 H Platelet Count 279 Mean Platelet Volume 12.4 H Neutrophils % 58.2 Lymphocytes % 19.1 Monocytes % 9.2 Eosinophils % 11.8 H Basophils % 0.6 Nucleated Red Blood Cells % 0.0 Neutrophils # 6.2 Lymphocytes # 2.0 Monocytes # 1.0 H Eosinophils # 1.3 H Basophils # 0.1 Nucleated Red Blood Cells # 0.0 Sodium Level 144 Potassium Level 4.2 Chloride Level 104 Carbon Dioxide Level 34 H Anion Gap 10 Blood Urea Nitrogen 90 H Creatinine 3.19 H Glucose Level 53 #L Calcium Level 8.4 Medications Medications Current Medications Acetaminophen (Tylenol Tab) 650 mg Q6H PRN GTB PAIN AND OR ELEVATED TEMP Last administered on 05/05/17 12:01; Admin Dose 650 MG; Start 04/17/17 at 18:00 Bisacodyl (Dulcolax Supp) 10 mg Q24H [place] Last administered on 05/18/17 17:11; Admin Dose 10 MG; Start 04/17/17 at 18:00 Diphenhydramine HCl (Benadryl) 25 mg Q6H PRN GTB ITCHING Last administered on 12:30; Admin Dose 25 MG; Start 04/17/17 at 18:00 Hydralazine HCl (Apresoline) 50 mg Q8 PRN GTB ELEVATED BLOOD PRESSURE Last administered on 04/18/17 13:18; Admin Dose 50 MG; Start 04/17/17 at 18:00 Multivitamins Therapeutic (Theragran) 1 tab DAILY GTB Last administered on 05/20 08:21; Admin Dose 1 TAB; Start 04/18/17 at 09:00 Miscellaneous Information 1 ea NOTE XX ; Start 04/17/17 at 21:00 Glucose (Glutose) 15 gm Q15M PRN PO DECREASED GLUCOSE; Start 04/17/17 at 21:00 Glucose (Glutose) 22.5 gm Q15M PRN PO DECREASED GLUCOSE; Start 04/17/17 at 21: 00 Dextrose (D50w Syringe) 25 ml Q15M PRN IV DECREASED GLUCOSE Last administered on 05/18/17 20:46; Admin Dose 25 ML; Start 04/17/17 at 21:00 Dextrose (D50w Syringe) 50 ml Q15M PRN IV DECREASED GLUCOSE Last administered on 05/06/17 06:24; Admin Dose 50 ML; Start 04/17/17 at 21:00 Glucagon (Glucagen) 1 mg Q15M PRN IM DECREASED GLUCOSE; Start 04/17/17 at 21:00 Glucose (Glutose) 15 gm Q15M PRN BUCCAL DECREASED GLUCOSE; Start 04/17/17 at 21 :00 Ondansetron HCl (Zofran Inj) 4 mg Q6H PRN IV NAUSEA AND/OR VOMITING; Start at 00:30 Insulin Aspart (Novolog Insulin Pen) (Adult SC Insulin - Mild Algorithm)... Q6 [place] Last administered on 05/20/17 01:17; Admin Dose 1 UNIT; Start 04/20/17 at 00:00 Insulin Glargine (Lantus) 14 unit QHS SC Last administered on 05/19/17 21:22; Admin Dose 14 UNIT; Start 04/20/17 at 21:00 Metoprolol Tartrate (Lopressor) 25 mg BID PO Last administered on 04/28/17 08: 14; Admin Dose 25 MG; Start 04/23/17 at 09:00; Status Future Hold Hydralazine HCl (Apresoline) 10 mg Q4H PRN IV SBP>170; Start 04/22/17 at 22:00 Nitroglycerin (Nitroglycerin (Sl Tab) 0.4 Mg) 1 tab Q5M PRN SL ANGINA; Start at 18:00 Acetaminophen/ Hydrocodone Bitart ([place] (5/325)) 1 tab Q6H PRN PO PAIN LEVEL 4 -7 Last administered on 05/17/17 05:18; Admin Dose 1 TAB; Start 05/03/17 at 03: 30 Acetaminophen (Tylenol Liquid) 650 mg Q4H PRN GTB PAIN AND OR ELEVATED TEMP Last administered on 05/12/17 18:12; Admin Dose 650 MG; Start 05/03/17 at 03:30 Metoclopramide HCl (Reglan) 5 mg TID IV Last administered on 05/20/17 08:21; Admin Dose 5 MG; Start 05/05/17 at 13:00 Amlodipine Besylate (Norvasc) 5 mg DAILY GTB Last administered on 05/19/17 08: 31; Admin Dose 5 MG; Start 05/07/17 at 09:00 Zinc Acetate/ Diphenhydramine (Benadryl 2% Cr) 1 applic Q8 PRN TOP ITCHING Last administered on 05/18/17 03:31; Admin Dose 1 APPLIC; Start 05/07/17 at 11: 00 Lansoprazole (Prevacid) 30 mg BID@06,18 GTB Last administered on 05/20/17 05: 59; Admin Dose 30 MG; Start 05/08/17 at 18:00 Clonidine HCl (Catapres-Tts 1 Patch) 1 patch Q7D TRANSDERM Last administered on 05/15/17 15:11; Admin Dose 1 PATCH; Start 05/08/17 at 15:00 Epoetin Taqueria (Epogen (Esrd)) 2,000 units MoWeFr@17 SC Last administered on 05/19 18:05; Admin Dose 2,000 UNITS; Start 05/17/17 at 17:00 Insulin Aspart (Novolog Insulin Pen) 3 unit Q6 SC Last administered on 05:59; Admin Dose 3 UNIT; Start 05/19/17 at 00:00 Alprazolam (Xanax) 0.5 mg Q6H PRN JT ANXIETY Last administered on 05/20/17 10: 20; Admin Dose 0.5 MG; Start 05/19/17 at 18:30 PORTIA OLIVER MD May 20, 2017 11:09
--- NOTE | 2017-05-20 11:54 | CONS ---
Date/Time of Note Date/Time of Note DATE: 05/20/17 TIME: 11:51 Assessment/Plan Assessment/Plan Additional Assessment/Plan 1.HTN-somewhat labile today - HD as needed, will monitor clinically now - will monitor clinically - stable overall 2.H/O PAF-Remains in SR at this time - OFF TELE NOW - rate controled 3.renal failure - renal team follows 4.dysphagia 5. AMS - more alert - stable - with agitioon now 6. Heart gmqju-sgfhvjoqe-bzerjc HR.improved with holding BB overall some intermittent recurrence - now rate stable 7. Chest pain-resolved/negative troponin/no change on serial ecg - no intervention planned 8. Occasional PVC's 9. CHF-diastolic CHRIONIC - good fluid status now - BETTER fluid status now 10.UTI 11.anemia Consultation Date/Type/Reason Admit Date/Time Apr 17, 2017 at 16:39 Initial Consult Date 04/18/17 Type of Consultation: Renal Referring Provider: PORTIA OLIVER MD 24 HR Interval Summary Free Text/Dictation NO acute events - BP in good range - no CP, will monitor clinically ROS: No fever, no chills, no nausea, no vomiting, no diarrhea/constipation No recent weight changes No chest pain, no PND, no orthopnea No dizziness, blurred vision No thirst, no heat or cold intolerance (per nurse) Exam/Review of Systems Vital Signs Vitals Vital Signs Date Time Temp Pulse Resp B/P Pulse Ox O2 Delivery O2 Flow Rate FiO2 05/20/17 07:33 84 22 97 05/20/17 02:00 98.4 117/59 05/19/17 19:00 21 Intake and Output 05/19/17 05/19/17 05/20/17 15:00 23:00 07:00 Intake Total 1260 ml 880 ml Output Total 1000 ml 700 ml Balance 260 ml 180 ml Exam General: WN/WD/NAD, AOx confused HEENT: Unicetric/atraumatic/EOMI (follow some commands) NECK: JVD elevated, no thyromegaly Lymph: no lymphadenopathy HEART: regular with no S3, II/ systolic murmur at apex LUNGS: Coarse sounds ABD: soft, NT, ND, +BS : Intact Neuro: non focal SKIN: chronic changes EXT: trace edema Results Result Diagram: 05/20/170 9/28/17 0440 Results 24 hrs Laboratory Tests Test 05/19/17 12:25 05/19/17 15:34 05/19/17 18:08 05/19/17 21:18 Bedside Glucose 141 157 149 Sodium Level 142 Potassium Level 5.5 H Chloride Level 105 Carbon Dioxide Level 31 Anion Gap 12 Blood Urea Nitrogen 84 H Creatinine 3.16 H Glucose Level 95 Calcium Level 8.8 Test 05/20/17 01:09 05/20/17 04:40 05/20/17 05:51 Bedside Glucose 154 118 White Blood Count 10.6 Red Blood Count 2.90 L Hemoglobin 8.2 L Hematocrit 26.7 L Mean Corpuscular Volume 92.1 Mean Corpuscular Hemoglobin 28.3 L Mean Corpuscular Hemoglobin Concent 30.7 L Red Cell Distribution Width 20.4 H Platelet Count 279 Mean Platelet Volume 12.4 H Neutrophils % 58.2 Lymphocytes % 19.1 Monocytes % 9.2 Eosinophils % 11.8 H Basophils % 0.6 Nucleated Red Blood Cells % 0.0 Neutrophils # 6.2 Lymphocytes # 2.0 Monocytes # 1.0 H Eosinophils # 1.3 H Basophils # 0.1 Nucleated Red Blood Cells # 0.0 Sodium Level 144 Potassium Level 4.2 Chloride Level 104 Carbon Dioxide Level 34 H Anion Gap 10 Blood Urea Nitrogen 90 H Creatinine 3.19 H Glucose Level 53 #L Calcium Level 8.4 Medications Medications Current Medications Acetaminophen (Tylenol Tab) 650 mg Q6H PRN GTB PAIN AND OR ELEVATED TEMP Last administered on 05/05/17 12:01; Admin Dose 650 MG; Start 04/17/17 at 18:00 Bisacodyl (Dulcolax Supp) 10 mg Q24H [place] Last administered on 05/18/17 17:11; Admin Dose 10 MG; Start 04/17/17 at 18:00 Diphenhydramine HCl (Benadryl) 25 mg Q6H PRN GTB ITCHING Last administered on 12:30; Admin Dose 25 MG; Start 04/17/17 at 18:00 Hydralazine HCl (Apresoline) 50 mg Q8 PRN GTB ELEVATED BLOOD PRESSURE Last administered on 04/18/17 13:18; Admin Dose 50 MG; Start 04/17/17 at 18:00 Multivitamins Therapeutic (Theragran) 1 tab DAILY GTB Last administered on 05/20 08:21; Admin Dose 1 TAB; Start 04/18/17 at 09:00 Miscellaneous Information 1 ea NOTE XX ; Start 04/17/17 at 21:00 Glucose (Glutose) 15 gm Q15M PRN PO DECREASED GLUCOSE; Start 04/17/17 at 21:00 Glucose (Glutose) 22.5 gm Q15M PRN PO DECREASED GLUCOSE; Start 04/17/17 at 21: 00 Dextrose (D50w Syringe) 25 ml Q15M PRN IV DECREASED GLUCOSE Last administered on 05/18/17 20:46; Admin Dose 25 ML; Start 04/17/17 at 21:00 Dextrose (D50w Syringe) 50 ml Q15M PRN IV DECREASED GLUCOSE Last administered on 05/06/17 06:24; Admin Dose 50 ML; Start 04/17/17 at 21:00 Glucagon (Glucagen) 1 mg Q15M PRN IM DECREASED GLUCOSE; Start 04/17/17 at 21:00 Glucose (Glutose) 15 gm Q15M PRN BUCCAL DECREASED GLUCOSE; Start 04/17/17 at 21 :00 Ondansetron HCl (Zofran Inj) 4 mg Q6H PRN IV NAUSEA AND/OR VOMITING; Start at 00:30 Insulin Aspart (Novolog Insulin Pen) (Adult SC Insulin - Mild Algorithm)... Q6 [place] Last administered on 05/20/17 01:17; Admin Dose 1 UNIT; Start 04/20/17 at 00:00 Insulin Glargine (Lantus) 14 unit QHS SC Last administered on 05/19/17 21:22; Admin Dose 14 UNIT; Start 04/20/17 at 21:00 Metoprolol Tartrate (Lopressor) 25 mg BID PO Last administered on 04/28/17 08: 14; Admin Dose 25 MG; Start 04/23/17 at 09:00; Status Future Hold Hydralazine HCl (Apresoline) 10 mg Q4H PRN IV SBP>170; Start 04/22/17 at 22:00 Nitroglycerin (Nitroglycerin (Sl Tab) 0.4 Mg) 1 tab Q5M PRN SL ANGINA; Start at 18:00 Acetaminophen/ Hydrocodone Bitart ([place] (5/325)) 1 tab Q6H PRN PO PAIN LEVEL 4 -7 Last administered on 05/17/17 05:18; Admin Dose 1 TAB; Start 05/03/17 at 03: 30 Acetaminophen (Tylenol Liquid) 650 mg Q4H PRN GTB PAIN AND OR ELEVATED TEMP Last administered on 05/12/17 18:12; Admin Dose 650 MG; Start 05/03/17 at 03:30 Metoclopramide HCl (Reglan) 5 mg TID IV Last administered on 05/20/17 08:21; Admin Dose 5 MG; Start 05/05/17 at 13:00 Amlodipine Besylate (Norvasc) 5 mg DAILY GTB Last administered on 05/19/17 08: 31; Admin Dose 5 MG; Start 05/07/17 at 09:00 Zinc Acetate/ Diphenhydramine (Benadryl 2% Cr) 1 applic Q8 PRN TOP ITCHING Last administered on 05/18/17 03:31; Admin Dose 1 APPLIC; Start 05/07/17 at 11: 00 Lansoprazole (Prevacid) 30 mg BID@06,18 GTB Last administered on 05/20/17 05: 59; Admin Dose 30 MG; Start 05/08/17 at 18:00 Clonidine HCl (Catapres-Tts 1 Patch) 1 patch Q7D TRANSDERM Last administered on 05/15/17 15:11; Admin Dose 1 PATCH; Start 05/08/17 at 15:00 Epoetin Taqueria (Epogen (Esrd)) 2,000 units MoWeFr@17 SC Last administered on 05/19 18:05; Admin Dose 2,000 UNITS; Start 05/17/17 at 17:00 Insulin Aspart (Novolog Insulin Pen) 3 unit Q6 SC Last administered on 05:59; Admin Dose 3 UNIT; Start 05/19/17 at 00:00 Alprazolam (Xanax) 0.5 mg Q6H PRN JT ANXIETY Last administered on 05/20/17 10: 20; Admin Dose 0.5 MG; Start 05/19/17 at 18:30 HERBERTH ZUNIGA MD May 20, 2017 11:53
[2017-05-20] MEDS: DIPHENHYDRAMINE 25 MG CAP GTB PRN (15:20)
[2017-05-20] MEDS: BISACODYL 10 MG SUPP PR SCH (17:56)
[2017-05-20] MEDS: INSULIN GLARGINE [LANtus] 3 ML PEN SC SCH (21:38)
--- NOTE | 2017-05-20 21:43 | PN ---
Date/Time of Note Date/Time of Note DATE: 05/20/17 TIME: 21:42 Assessment/Plan Lines/Catheters IV [facility] Type [facility] [place] Lock Urinary Cath still in place: Yes Assessment/Plan Assessment/Plan - Acute kidney injury on chronic kidney disease. Continue hemodialysis per renal. Dr. Cheema is following in nephrology consultation. - Protein calorie malnutrition, increase G-tube feeding according to crozer operator recommendations - Status post post urinary tract infection. - History of cerebrovascular accident - Diabetes mellitus. Continue Lantus and NovoLog. - Diastolic congestive heart failure. Continue to monitor intake and output. - Paroxysmal atrial fibrillation, currently in sinus rhythm. - Hypertension. Continue Norvasc. - Hyperlipidemia. Continue statin. - Urinary retention with Flores catheter. - Dysphagia, status post PEG placement - Anemia of chronic disease, continue Epogen. 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 Plan of care discussed with Dr. Patel Subjective 24 Hr Interval Summary Free Text/Dictation Patient seen at 1320 Exam/Review of Systems Vital Signs Vitals Vital Signs Date Time Temp Pulse Resp B/P Pulse Ox O2 Delivery O2 Flow Rate FiO2 05/20/17 21:08 89 18 99 21 05/20/17 19:31 98.3 125/62 Intake and Output 05/19/17 05/19/17 05/20/17 15:00 23:00 07:00 Intake Total 1260 ml 880 ml Output Total 1000 ml 700 ml Balance 260 ml 180 ml Results Result Diagram: 05/20/17 0440 05/20/17 0440 Results 24 hrs Laboratory Tests Test 05/20/17 01:09 05/20/17 04:40 05/20/17 05:51 05/20/17 12:24 Bedside Glucose 154 118 141 White Blood Count 10.6 Red Blood Count 2.90 L Hemoglobin 8.2 L Hematocrit 26.7 L Mean Corpuscular Volume 92.1 Mean Corpuscular Hemoglobin 28.3 L Mean Corpuscular Hemoglobin Concent 30.7 L Red Cell Distribution Width 20.4 H Platelet Count 279 Mean Platelet Volume 12.4 H Neutrophils % 58.2 Lymphocytes % 19.1 Monocytes % 9.2 Eosinophils % 11.8 H Basophils % 0.6 Nucleated Red Blood Cells % 0.0 Neutrophils # 6.2 Lymphocytes # 2.0 Monocytes # 1.0 H Eosinophils # 1.3 H Basophils # 0.1 Nucleated Red Blood Cells # 0.0 Sodium Level 144 Potassium Level 4.2 Chloride Level 104 Carbon Dioxide Level 34 H Anion Gap 10 Blood Urea Nitrogen 90 H Creatinine 3.19 H Glucose Level 53 #L Calcium Level 8.4 Test 05/20/17 17:52 05/20/17 21:25 Bedside Glucose 129 127 Medications Medications Current Medications Acetaminophen (Tylenol Tab) 650 mg Q6H PRN GTB PAIN AND OR ELEVATED TEMP Last administered on 05/05/17 12:01; Admin Dose 650 MG; Start 04/17/17 at 18:00 Bisacodyl (Dulcolax Supp) 10 mg Q24H [place] Last administered on 05/20/17 17:56; Admin Dose 10 MG; Start 04/17/17 at 18:00 Diphenhydramine HCl (Benadryl) 25 mg Q6H PRN GTB ITCHING Last administered on 15:20; Admin Dose 25 MG; Start 04/17/17 at 18:00 Hydralazine HCl (Apresoline) 50 mg Q8 PRN GTB ELEVATED BLOOD PRESSURE Last administered on 04/18/17 13:18; Admin Dose 50 MG; Start 04/17/17 at 18:00 Multivitamins Therapeutic (Theragran) 1 tab DAILY GTB Last administered on 05/20 08:21; Admin Dose 1 TAB; Start 04/18/17 at 09:00 Miscellaneous Information 1 ea NOTE XX ; Start 04/17/17 at 21:00 Glucose (Glutose) 15 gm Q15M PRN PO DECREASED GLUCOSE; Start 04/17/17 at 21:00 Glucose (Glutose) 22.5 gm Q15M PRN PO DECREASED GLUCOSE; Start 04/17/17 at 21: 00 Dextrose (D50w Syringe) 25 ml Q15M PRN IV DECREASED GLUCOSE Last administered on 05/18/17 20:46; Admin Dose 25 ML; Start 04/17/17 at 21:00 Dextrose (D50w Syringe) 50 ml Q15M PRN IV DECREASED GLUCOSE Last administered on 05/06/17 06:24; Admin Dose 50 ML; Start 04/17/17 at 21:00 Glucagon (Glucagen) 1 mg Q15M PRN IM DECREASED GLUCOSE; Start 04/17/17 at 21:00 Glucose (Glutose) 15 gm Q15M PRN BUCCAL DECREASED GLUCOSE; Start 04/17/17 at 21 :00 Ondansetron HCl (Zofran Inj) 4 mg Q6H PRN IV NAUSEA AND/OR VOMITING; Start at 00:30 Insulin Aspart (Novolog Insulin Pen) (Adult SC Insulin - Mild Algorithm)... Q6 SC Last administered on 05/20/17 12:56; Admin Dose 1 UNIT; Start 04/20/17 at 00:00 Insulin Glargine (Lantus) 14 unit QHS SC Last administered on 05/20/17 21:38; Admin Dose 14 UNIT; Start 04/20/17 at 21:00 Metoprolol Tartrate (Lopressor) 25 mg BID PO Last administered on 04/28/17 08: 14; Admin Dose 25 MG; Start 04/23/17 at 09:00; Status Future Hold Hydralazine HCl (Apresoline) 10 mg Q4H PRN IV SBP>170; Start 04/22/17 at 22:00 Nitroglycerin (Nitroglycerin (Sl Tab) 0.4 Mg) 1 tab Q5M PRN SL ANGINA; Start at 18:00 Acetaminophen/ Hydrocodone Bitart ([place] (5/325)) 1 tab Q6H PRN PO PAIN LEVEL 4 -7 Last administered on 05/17/17 05:18; Admin Dose 1 TAB; Start 05/03/17 at 03: 30 Acetaminophen (Tylenol Liquid) 650 mg Q4H PRN GTB PAIN AND OR ELEVATED TEMP Last administered on 05/12/17 18:12; Admin Dose 650 MG; Start 05/03/17 at 03:30 Metoclopramide HCl (Reglan) 5 mg TID IV Last administered on 05/20/17 21:26; Admin Dose 5 MG; Start 05/05/17 at 13:00 Amlodipine Besylate (Norvasc) 5 mg DAILY GTB Last administered on 05/19/17 08: 31; Admin Dose 5 MG; Start 05/07/17 at 09:00 Zinc Acetate/ Diphenhydramine (Benadryl 2% Cr) 1 applic Q8 PRN TOP ITCHING Last administered on 9/26/17at 03:31; Admin Dose 1 APPLIC; Start 05/07/17 at 11: 00 Lansoprazole (Prevacid) 30 mg BID@06,18 GTB Last administered on 05/20/17 17: 55; Admin Dose 30 MG; Start 05/08/17 at 18:00 Clonidine HCl (Catapres-Tts 1 Patch) 1 patch Q7D TRANSDERM Last administered on 05/15/17 15:11; Admin Dose 1 PATCH; Start 05/08/17 at 15:00 Epoetin Taqueria (Epogen (Esrd)) 2,000 units MoWeFr@17 SC Last administered on 05/19 18:05; Admin Dose 2,000 UNITS; Start 05/17/17 at 17:00 Insulin Aspart (Novolog Insulin Pen) 3 unit Q6 SC Last administered on 17:59; Admin Dose 3 UNIT; Start 05/19/17 at 00:00 Alprazolam (Xanax) 0.5 mg Q6H PRN JT ANXIETY Last administered on 05/20/17 10: 20; Admin Dose 0.5 MG; Start 05/19/17 at 18:30 MARCY WEINER May 20, 2017 21:43
[2017-05-21] MEDS: ALBUTEROL/IPRATROPIUM (NEB) 3 ML AMP HHN SCH ×3 (01:48→13:03)
[2017-05-21 01:58] VITALS: BP 125/63; RESP 18
[2017-05-21] MEDS: Insulin NOVOLOG SS MILD Algorithm (NPO/TPN/ENTERAL FEEDS) SC SCH ×3 (06:00→17:58)
[2017-05-21] MEDS: INSULIN ASPART [NOVOLOG] 3 ML PEN SC SCH (06:00)
[2017-05-21] MEDS: LANSOPRAZOLE 30 MG CAP GTB SCH ×2 (06:01→17:48)
[2017-05-21] MEDS: METOCLOPRAMIDE 10 MG INJ IV SCH ×3 (08:56→21:23)
[2017-05-21] MEDS: AMLODIPINE 5 MG TAB GTB SCH (08:56)
[2017-05-21] MEDS: MULTIVITAMINS THERAPEUTIC TAB GTB SCH (08:56)
[2017-05-21 09:03] VITALS: BP 151/67; RESP 18
--- NOTE | 2017-05-21 12:35 | CONS ---
Date/Time of Note Date/Time of Note DATE: 05/21/17 TIME: 12:33 Assessment/Plan Assessment/Plan Chief Complaint/Hosp Course IMP: 1.HTN-well controlled 2.H/O PAF-Remains in SR at this time by exam 3.renal failure 4.dysphagia 5. AMS 6. Heart [id number]-xmqaxj HR.improved with holding BB overall some intermittent recurrence when on Tele still 7. Chest pain-resolved/negative troponin/no change on serial ecg 8. Occasional PVC's-when on tele 9. CHF-diastolic acute on chronic 10.UTI 11.anemia REcc: -Now on med-surg -serial ecg's to document rhythm -Continue norvasc/clondine TTS and follow BP closely -Continue to Hold BB given wenkebach -Follow volume status closely with HD today -HD for volume removal -Follow MS kam Problems: Consultation Date/Type/Reason Admit Date/Time Apr 17, 2017 at 16:39 Initial Consult Date 04/18/17 Type of Consultation: cardiology Reason for Consultation Amanda Referring Provider: PORTIA OLIVER MD Exam/Review of Systems Vital Signs Vitals Vital Signs Date Time Temp Pulse Resp B/P Pulse Ox O2 Delivery O2 Flow Rate FiO2 05/21/17 09:03 98.0 86 18 151/67 98 05/21/17 07:25 21 Intake and Output 05/20/17 05/20/17 05/21/17 15:00 23:00 07:00 Intake Total 500 ml 1100 ml 1160 ml Output Total 1500 ml 400 ml 400 ml Balance -1000 ml 700 ml 760 ml Exam Review of Systems: CONSTITUTIONAL: No fevers, chills. PULMONARY: No sob CARDIOVASCULAR: No chest pain/palpitations GASTROINTESTINAL: No nausea/vomiting. GENITOURINARY: No hematuria/dysuria. MUSCULOSKELETAL: No myagias/arthalgias. PSYCHIATRIC: The patient denies depression. NEUROLOGIC: lethargic Constitutional: other (sleeping) Psych: no complaints Head: normocephalic ENMT: mucosa pink and moist Neck: jvd (9 cm water), supple Respiratory: diminished breath sounds (at bases/B) Cardiovascular: regular rate and rhythm Gastrointestinal: non-tender, soft Musculoskeletal: muscle tone (normal) Extremities: edema (none) Neurological: lethargic, other Results Result Diagram: 05/20/17 0440 05/20/17 0440 Results 24 hrs Laboratory Tests Test 05/20/17 17:52 05/20/17 21:25 05/20/17 23:51 05/21/17 06:05 Bedside Glucose 129 127 148 95 Test 05/21/17 12:26 Bedside Glucose 82 Medications Medications Current Medications Acetaminophen (Tylenol Tab) 650 mg Q6H PRN GTB PAIN AND OR ELEVATED TEMP Last administered on 05/05/17 12:01; Admin Dose 650 MG; Start 04/17/17 at 18:00 Bisacodyl (Dulcolax Supp) 10 mg Q24H [place] Last administered on 05/20/17 17:56; Admin Dose 10 MG; Start 04/17/17 at 18:00 Diphenhydramine HCl (Benadryl) 25 mg Q6H PRN GTB ITCHING Last administered on 15:20; Admin Dose 25 MG; Start 04/17/17 at 18:00 Hydralazine HCl (Apresoline) 50 mg Q8 PRN GTB ELEVATED BLOOD PRESSURE Last administered on 04/18/17 13:18; Admin Dose 50 MG; Start 04/17/17 at 18:00 Multivitamins Therapeutic (Theragran) 1 tab DAILY GTB Last administered on 05/21 08:56; Admin Dose 1 TAB; Start 04/18/17 at 09:00 Miscellaneous Information 1 ea NOTE XX ; Start 04/17/17 at 21:00 Glucose (Glutose) 15 gm Q15M PRN PO DECREASED GLUCOSE; Start 04/17/17 at 21:00 Glucose (Glutose) 22.5 gm Q15M PRN PO DECREASED GLUCOSE; Start 04/17/17 at 21: 00 Dextrose (D50w Syringe) 25 ml Q15M PRN IV DECREASED GLUCOSE Last administered on 05/18/17 20:46; Admin Dose 25 ML; Start 04/17/17 at 21:00 Dextrose (D50w Syringe) 50 ml Q15M PRN IV DECREASED GLUCOSE Last administered on 05/06/17 06:24; Admin Dose 50 ML; Start 04/17/17 at 21:00 Glucagon (Glucagen) 1 mg Q15M PRN IM DECREASED GLUCOSE; Start 04/17/17 at 21:00 Glucose (Glutose) 15 gm Q15M PRN BUCCAL DECREASED GLUCOSE; Start 04/17/17 at 21 :00 Ondansetron HCl (Zofran Inj) 4 mg Q6H PRN IV NAUSEA AND/OR VOMITING; Start at 00:30 Insulin Aspart (Novolog Insulin Pen) (Adult SC Insulin - Mild Algorithm)... Q6 SC Last administered on 05/20/17 23:59; Admin Dose 1 UNIT; Start 04/20/17 at 00:00 Insulin Glargine (Lantus) 14 unit QHS SC Last administered on 05/20/17 21:38; Admin Dose 14 UNIT; Start 04/20/17 at 21:00 Metoprolol Tartrate (Lopressor) 25 mg BID PO Last administered on 04/28/17 08: 14; Admin Dose 25 MG; Start 04/23/17 at 09:00; Status Future Hold Hydralazine HCl (Apresoline) 10 mg Q4H PRN IV SBP>170; Start 04/22/17 at 22:00 Nitroglycerin (Nitroglycerin (Sl Tab) 0.4 Mg) 1 tab Q5M PRN SL ANGINA; Start at 18:00 Acetaminophen/ Hydrocodone Bitart ([place] (5/325)) 1 tab Q6H PRN PO PAIN LEVEL 4 -7 Last administered on 05/17/17 05:18; Admin Dose 1 TAB; Start 05/03/17 at 03: 30 Acetaminophen (Tylenol Liquid) 650 mg Q4H PRN GTB PAIN AND OR ELEVATED TEMP Last administered on 05/12/17 18:12; Admin Dose 650 MG; Start 05/03/17 at 03:30 Metoclopramide HCl (Reglan) 5 mg TID IV Last administered on 05/21/17 08:56; Admin Dose 5 MG; Start 05/05/17 at 13:00 Amlodipine Besylate (Norvasc) 5 mg DAILY GTB Last administered on 05/21/17 08: 56; Admin Dose 5 MG; Start 05/07/17 at 09:00 Zinc Acetate/ Diphenhydramine (Benadryl 2% Cr) 1 applic Q8 PRN TOP ITCHING Last administered on 05/18/17 03:31; Admin Dose 1 APPLIC; Start 05/07/17 at 11: 00 Lansoprazole (Prevacid) 30 mg BID@06,18 GTB Last administered on 05/21/17 06: 01; Admin Dose 30 MG; Start 05/08/17 at 18:00 Clonidine HCl (Catapres-Tts 1 Patch) 1 patch Q7D TRANSDERM Last administered on 05/15/17 15:11; Admin Dose 1 PATCH; Start 05/08/17 at 15:00 Epoetin [employer] (Epogen (Esrd)) 2,000 units MoWeFr@17 SC Last administered on 05/19 18:05; Admin Dose 2,000 UNITS; Start 05/17/17 at 17:00 Insulin Aspart (Novolog Insulin Pen) 3 unit Q6 SC Last administered on 23:57; Admin Dose 3 UNIT; Start 05/19/17 at 00:00 Alprazolam (Xanax) 0.5 mg Q6H PRN JT ANXIETY Last administered on 05/20/17 10: 20; Admin Dose 0.5 MG; Start 05/19/17 at 18:30 LESLI SHEA May 21, 2017 12:35
--- NOTE | 2017-05-21 13:36 | CONS ---
CHELSIE HERNÁNDEZ 05/21/17 1336: Date/Time of Note Date/Time of Note DATE: 05/21/17 TIME: 13:35 Assessment/Plan Assessment/Plan Chief Complaint/Hosp Course 1. ESRD Hd initiated on 05/06 2.Hypernatremia >improving 3.HTN, controlled 4 Ecoli UTI 5. Sepsis due to #4 6. Chronic Afib 7. CVA s/p G tube placement 8. Renal cyst 9 Hyperphosphatemia. Problems: Additional Assessment/Plan 1. continue HD per schedule 2. Optimization of kidney function Consultation Date/Type/Reason Admit Date/Time Apr 17, 2017 at 16:39 Initial Consult Date 04/18/17 Type of Consultation: nephrology Reason for Consultation Dr Cheema Referring Provider: PORTIA OLIVER MD Exam/Review of Systems Vital Signs Vitals Vital Signs Date Time Temp Pulse Resp B/P Pulse Ox O2 Delivery O2 Flow Rate FiO2 05/21/17 13:05 81 16 98 21 05/21/17 09:03 98.0 151/67 Intake and Output 05/20/17 05/20/17 05/21/17 15:00 23:00 07:00 Intake Total 500 ml 1100 ml 1160 ml Output Total 1500 ml 400 ml 400 ml Balance -1000 ml 700 ml 760 ml Exam sleeping/lethargic Neck: supple Respiratory: diminished breath sounds Cardiovascular: irregular rhythm Gastrointestinal: other (gt) Results Result Diagram: 05/20/17 0440 05/20/17 0440 Results 24 hrs Laboratory Tests Test 05/20/17 17:52 05/20/17 21:25 05/20/17 23:51 05/21/17 06:05 Bedside Glucose 129 127 148 95 Test 05/21/17 12:26 Bedside Glucose 82 Medications Medications Current Medications Acetaminophen (Tylenol Tab) 650 mg Q6H PRN GTB PAIN AND OR ELEVATED TEMP Last administered on 05/05/17 12:01; Admin Dose 650 MG; Start 04/17/17 at 18:00 Bisacodyl (Dulcolax Supp) 10 mg Q24H [place] Last administered on 05/20/17 17:56; Admin Dose 10 MG; Start 04/17/17 at 18:00 Diphenhydramine HCl (Benadryl) 25 mg Q6H PRN GTB ITCHING Last administered on 15:20; Admin Dose 25 MG; Start 04/17/17 at 18:00 Hydralazine HCl (Apresoline) 50 mg Q8 PRN GTB ELEVATED BLOOD PRESSURE Last administered on 04/18/17 13:18; Admin Dose 50 MG; Start 04/17/17 at 18:00 Multivitamins Therapeutic (Theragran) 1 tab DAILY GTB Last administered on 05/21 08:56; Admin Dose 1 TAB; Start 04/18/17 at 09:00 Miscellaneous Information 1 ea NOTE XX ; Start 04/17/17 at 21:00 Glucose (Glutose) 15 gm Q15M PRN PO DECREASED GLUCOSE; Start 04/17/17 at 21:00 Glucose (Glutose) 22.5 gm Q15M PRN PO DECREASED GLUCOSE; Start 04/17/17 at 21: 00 Dextrose (D50w Syringe) 25 ml Q15M PRN IV DECREASED GLUCOSE Last administered on 05/18/17 20:46; Admin Dose 25 ML; Start 04/17/17 at 21:00 Dextrose (D50w Syringe) 50 ml Q15M PRN IV DECREASED GLUCOSE Last administered on 05/06/17 06:24; Admin Dose 50 ML; Start 04/17/17 at 21:00 Glucagon (Glucagen) 1 mg Q15M PRN IM DECREASED GLUCOSE; Start 04/17/17 at 21:00 Glucose (Glutose) 15 gm Q15M PRN BUCCAL DECREASED GLUCOSE; Start 04/17/17 at 21 :00 Ondansetron HCl (Zofran Inj) 4 mg Q6H PRN IV NAUSEA AND/OR VOMITING; Start at 00:30 Insulin Aspart (Novolog Insulin Pen) (Adult SC Insulin - Mild Algorithm)... Q6 [place] Last administered on 05/20/17 23:59; Admin Dose 1 UNIT; Start 04/20/17 at 00:00 Insulin Glargine (Lantus) 14 unit QHS SC Last administered on 05/20/17 21:38; Admin Dose 14 UNIT; Start 04/20/17 at 21:00 Metoprolol Tartrate (Lopressor) 25 mg BID PO Last administered on 04/28/17 08: 14; Admin Dose 25 MG; Start 04/23/17 at 09:00; Status Future Hold Hydralazine HCl (Apresoline) 10 mg Q4H PRN IV SBP>170; Start 04/22/17 at 22:00 Nitroglycerin (Nitroglycerin (Sl Tab) 0.4 Mg) 1 tab Q5M PRN SL ANGINA; Start at 18:00 Acetaminophen/ Hydrocodone Bitart ([place] (5/325)) 1 tab Q6H PRN PO PAIN LEVEL 4 -7 Last administered on 05/17/17 05:18; Admin Dose 1 TAB; Start 05/03/17 at 03: 30 Acetaminophen (Tylenol Liquid) 650 mg Q4H PRN GTB PAIN AND OR ELEVATED TEMP Last administered on 05/12/17 18:12; Admin Dose 650 MG; Start 05/03/17 at 03:30 Metoclopramide HCl (Reglan) 5 mg TID IV Last administered on 05/21/17 08:56; Admin Dose 5 MG; Start 05/05/17 at 13:00 Amlodipine Besylate (Norvasc) 5 mg DAILY GTB Last administered on 05/21/17 08: 56; Admin Dose 5 MG; Start 05/07/17 at 09:00 Zinc Acetate/ Diphenhydramine (Benadryl 2% Cr) 1 applic Q8 PRN TOP ITCHING Last administered on 05/18/17 03:31; Admin Dose 1 APPLIC; Start 05/07/17 at 11: 00 Lansoprazole (Prevacid) 30 mg BID@06,18 GTB Last administered on 05/21/17 06: 01; Admin Dose 30 MG; Start 05/08/17 at 18:00 Clonidine HCl (Catapres-Tts 1 Patch) 1 patch Q7D TRANSDERM Last administered on 05/15/17 15:11; Admin Dose 1 PATCH; Start 05/08/17 at 15:00 Epoetin Taqueria (Epogen (Esrd)) 2,000 units MoWeFr@17 SC Last administered on 05/19 18:05; Admin Dose 2,000 UNITS; Start 05/17/17 at 17:00 Alprazolam (Xanax) 0.5 mg Q6H PRN JT ANXIETY Last administered on 05/20/17 10: 20; Admin Dose 0.5 MG; Start 05/19/17 at 18:30 PORTIA OLIVER MD 05/21/17 1411: Assessment/Plan Assessment/Plan Additional Assessment/Plan Pt seen and examined with PRODUCT MARKETING COORDINATOR and agree with above Exam/Review of Systems Results Result Diagram: 05/20/17 0440 05/20/17 0440 CHELSIE HERNÁNDEZ May 21, 2017 13:36 PORTIA OLIVER MD May 21, 2017 14:11
[2017-05-21 14:30] VITALS: BP 109/55; RESP 17
--- NOTE | 2017-05-21 15:49 | PN ---
Date/Time of Note Date/Time of Note DATE: 05/21/17 TIME: 15:46 Assessment/Plan VTE Prophylaxis VTE Prophylaxis Intervention: SCD's Lines/Catheters IV Catheter Type (from Nrs): Perma cath Urinary Cath still in place: Yes Reason Cath still needed: urinary retention Assessment/Plan Chief Complaint/Hosp Course No acute events, pending ARU eval. Assessment/Plan - Acute kidney injury on chronic kidney disease. Continue hemodialysis per renal. Dr. Cheema is following in nephrology consultation. - Protein calorie malnutrition, increase G-tube feeding according to rn transitional recommendations - Status post post urinary tract infection. - History of cerebrovascular accident - Diabetes mellitus. Continue Lantus and NovoLog. - Diastolic congestive heart failure. Continue to monitor intake and output. - Paroxysmal atrial fibrillation, currently in sinus rhythm. - Hypertension. Continue Norvasc. - Hyperlipidemia. Continue statin. - Urinary retention with Flores catheter. - Dysphagia, status post PEG placement - Anemia of chronic disease, continue Epogen. 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 Plan of care discussed with Dr. Patel Problems: Exam/Review of Systems Vital Signs Vitals Vital Signs Date Time Temp Pulse Resp B/P Pulse Ox O2 Delivery O2 Flow Rate FiO2 05/21/17 14:30 98.0 78 17 109/55 96 05/21/17 13:05 21 Intake and Output 05/20/17 05/20/17 05/21/17 15:00 23:00 07:00 Intake Total 500 ml 1100 ml 1160 ml Output Total 1500 ml 400 ml 400 ml Balance -1000 ml 700 ml 760 ml Exam Constitutional: alert Neck: supple Respiratory: normal air movement Cardiovascular: RRR Gastrointestinal: other, soft Extremities: normal pulses (Tube) Additional Comments Right IJ permacath Results Result Diagram: 05/20/17 0440 05/20/17 0440 Results 24 hrs Laboratory Tests Test 05/20/17 17:52 05/20/17 21:25 05/20/17 23:51 05/21/17 06:05 Bedside Glucose 129 127 148 95 Test 05/21/17 12:26 Bedside Glucose 82 Medications Medications Current Medications Acetaminophen (Tylenol Tab) 650 mg Q6H PRN GTB PAIN AND OR ELEVATED TEMP Last administered on 05/05/17t 12:01; Admin Dose 650 MG; Start 04/17/17 at 18:00 Bisacodyl (Dulcolax Supp) 10 mg Q24H [place] Last administered on 05/20/17 17:56; Admin Dose 10 MG; Start 04/17/17 at 18:00 Diphenhydramine HCl (Benadryl) 25 mg Q6H PRN GTB ITCHING Last administered on 15:20; Admin Dose 25 MG; Start 04/17/17 at 18:00 Hydralazine HCl (Apresoline) 50 mg Q8 PRN GTB ELEVATED BLOOD PRESSURE Last administered on 04/18/17 13:18; Admin Dose 50 MG; Start 04/17/17 at 18:00 Multivitamins Therapeutic (Theragran) 1 tab DAILY GTB Last administered on 05/21 08:56; Admin Dose 1 TAB; Start 04/18/17 at 09:00 Miscellaneous Information 1 ea NOTE XX ; Start 04/17/17 at 21:00 Glucose (Glutose) 15 gm Q15M PRN PO DECREASED GLUCOSE; Start 04/17/17 at 21:00 Glucose (Glutose) 22.5 gm Q15M PRN PO DECREASED GLUCOSE; Start 04/17/17 at 21: 00 Dextrose (D50w Syringe) 25 ml Q15M PRN IV DECREASED GLUCOSE Last administered on 05/18/17 20:46; Admin Dose 25 ML; Start 04/17/17 at 21:00 Dextrose (D50w Syringe) 50 ml Q15M PRN IV DECREASED GLUCOSE Last administered on 05/06/17 06:24; Admin Dose 50 ML; Start 04/17/17 at 21:00 Glucagon (Glucagen) 1 mg Q15M PRN IM DECREASED GLUCOSE; Start 04/17/17 at 21:00 Glucose (Glutose) 15 gm Q15M PRN BUCCAL DECREASED GLUCOSE; Start 04/17/17 at 21 :00 Ondansetron HCl (Zofran Inj) 4 mg Q6H PRN IV NAUSEA AND/OR VOMITING; Start at 00:30 Insulin Aspart (Novolog Insulin Pen) (Adult SC Insulin - Mild Algorithm)... Q6 SC Last administered on 05/20/17 23:59; Admin Dose 1 UNIT; Start 04/20/17 at 00:00 Insulin Glargine (Lantus) 14 unit QHS SC Last administered on 05/20/17 21:38; Admin Dose 14 UNIT; Start 04/20/17 at 21:00 Metoprolol Tartrate (Lopressor) 25 mg BID PO Last administered on 04/28/17 08: 14; Admin Dose 25 MG; Start 04/23/17 at 09:00; Status Future Hold Hydralazine HCl (Apresoline) 10 mg Q4H PRN IV SBP>170; Start 04/22/17 at 22:00 Nitroglycerin (Nitroglycerin (Sl Tab) 0.4 Mg) 1 tab Q5M PRN SL ANGINA; Start at 18:00 Acetaminophen/ Hydrocodone Bitart ([place] (5/325)) 1 tab Q6H PRN PO PAIN LEVEL 4 -7 Last administered on 05/17/17 05:18; Admin Dose 1 TAB; Start 05/03/17 at 03: 30 Acetaminophen (Tylenol Liquid) 650 mg Q4H PRN GTB PAIN AND OR ELEVATED TEMP Last administered on 05/12/17 18:12; Admin Dose 650 MG; Start 05/03/17 at 03:30 Metoclopramide HCl (Reglan) 5 mg TID IV Last administered on 05/21/17 14:24; Admin Dose 5 MG; Start 05/05/17 at 13:00 Amlodipine Besylate (Norvasc) 5 mg DAILY GTB Last administered on 05/21/17 08: 56; Admin Dose 5 MG; Start 05/07/17 at 09:00 Zinc Acetate/ Diphenhydramine (Benadryl 2% Cr) 1 applic Q8 PRN TOP ITCHING Last administered on 05/18/17 03:31; Admin Dose 1 APPLIC; Start 05/07/17 at 11: 00 Lansoprazole (Prevacid) 30 mg BID@06,18 GTB Last administered on 05/21/17 06: 01; Admin Dose 30 MG; Start 05/08/17 at 18:00 Clonidine HCl (Catapres-Tts 1 Patch) 1 patch Q7D TRANSDERM Last administered on 05/15/17 15:11; Admin Dose 1 PATCH; Start 05/08/17 at 15:00 Epoetin Taqueria (Epogen (Esrd)) 2,000 units MoWeFr@17 SC Last administered on 05/19 18:05; Admin Dose 2,000 UNITS; Start 05/17/17 at 17:00 Alprazolam (Xanax) 0.5 mg Q6H PRN JT ANXIETY Last administered on 05/20/17 10: 20; Admin Dose 0.5 MG; Start 05/19/17 at 18:30 GEOVANY IBARRA May 21, 2017 15:49
[2017-05-21] MEDS: BISACODYL 10 MG SUPP PR SCH (17:48)
[2017-05-21] MEDS: EPOETIN 2000 UNITS/1 ML INJ (ESRD) SC SCH (17:49)
[2017-05-21 19:30] VITALS: BP 125/61; RESP 18
[2017-05-21] MEDS: INSULIN GLARGINE [LANtus] 3 ML PEN SC SCH (21:24)
[2017-05-22] VITALS (12 sets, daily range): BP systolic 102–158; BP diastolic 51–74; PULSE 68–78; RESP 18–20
[2017-05-22] MEDS: DIPHENHYDRAMINE 25 MG CAP GTB PRN ×2 (01:09→09:07)
[2017-05-22] MEDS: LANSOPRAZOLE 30 MG CAP GTB SCH ×2 (05:37→17:38)
[2017-05-22] MEDS: Insulin NOVOLOG SS MILD Algorithm (NPO/TPN/ENTERAL FEEDS) SC SCH ×4 (05:39→18:00)
[2017-05-22] MEDS: ALBUTEROL/IPRATROPIUM (NEB) 3 ML AMP HHN SCH ×3 (08:41→19:34)
[2017-05-22] MEDS: MULTIVITAMINS THERAPEUTIC TAB GTB SCH (09:07)
[2017-05-22] MEDS: METOCLOPRAMIDE 10 MG INJ IV SCH ×3 (09:07→21:20)
[2017-05-22] MEDS: AMLODIPINE 5 MG TAB GTB SCH (09:07)
[2017-05-22 09:55] LABS: CALCIUM 8.5 mg/dl (8.4-10.2); CREATININE 2.71 mg/dl (0.61-1.24); POTASSIUM 3.7 mmol/L (3.5-5.1)
[2017-05-22] MEDS: ALPRAZOLAM 0.5 MG TAB JT PRN (10:03)
--- NOTE | 2017-05-22 12:21 | PN ---
Date/Time of Note Date/Time of Note DATE: 05/22/17 TIME: 12:21 Assessment/Plan VTE Prophylaxis VTE Prophylaxis Intervention: other Lines/Catheters [facility] [place] Urinary Cath still in place: Yes Reason Cath still needed: skin wounds contaminated by urine Assessment/Plan Chief Complaint/Hosp Course - Acute kidney injury on chronic kidney disease. Continue hemodialysis per renal. Dr. Cheema is following in nephrology consultation. - Protein calorie malnutrition, increase G-tube feeding according to repairer shoe sticks recommendations - Status post post urinary tract infection. - History of cerebrovascular accident - Diabetes mellitus. Continue Lantus and NovoLog. - Diastolic congestive heart failure. Continue to monitor intake and output. - Paroxysmal atrial fibrillation, currently in sinus rhythm. - Hypertension. Continue Norvasc. - Hyperlipidemia. Continue statin. - Urinary retention with Flores catheter. - Dysphagia, status post PEG placement - Anemia of chronic disease, continue Epogen. 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 Problems: Subjective 24 Hr Interval Summary Free Text/Dictation Patient is resting comfortably Exam/Review of Systems Vital Signs Vitals Vital Signs Date Time Temp Pulse Resp B/P Pulse Ox O2 Delivery O2 Flow Rate FiO2 05/22/17 08:44 80 20 97 21 05/22/17 07:00 98.9 151/69 Intake and Output 05/21/17 05/21/17 05/22/17 15:00 23:00 07:00 Intake Total 1100 ml 1260 ml Output Total 700 ml 900 ml Balance 400 ml 360 ml Exam Constitutional: well developed Head: atraumatic, normocephalic Neck: supple Respiratory: diminished breath sounds Cardiovascular: regular rate and rhythm Gastrointestinal: non-tender, soft Extremities: normal pulses Results Result Diagram: 05/20/17 0440 05/22/17 0907 Results 24 hrs Laboratory Tests Test 05/21/17 12:26 05/21/17 17:57 05/21/17 21:19 05/22/17 00:18 Bedside Glucose 82 124 130 137 Test 05/22/17 05:31 05/22/17 08:41 05/22/17 09:07 Bedside Glucose 139 138 Sodium Level 141 Potassium Level 3.7 Chloride Level 101 Carbon Dioxide Level 33 H Anion Gap 11 Blood Urea Nitrogen 74 H Creatinine 2.71 H Glucose Level 113 Calcium Level 8.5 Medications Medications Current Medications Acetaminophen (Tylenol Tab) 650 mg Q6H PRN GTB PAIN AND OR ELEVATED TEMP Last administered on 05/05/17 12:01; Admin Dose 650 MG; Start 04/17/17 at 18:00 Bisacodyl (Dulcolax Supp) 10 mg Q24H [place] Last administered on 05/21/17 17:48; Admin Dose 10 MG; Start 04/17/17 at 18:00 Diphenhydramine HCl (Benadryl) 25 mg Q6H PRN GTB ITCHING Last administered on 09:07; Admin Dose 25 MG; Start 04/17/17 at 18:00 Hydralazine HCl (Apresoline) 50 mg Q8 PRN GTB ELEVATED BLOOD PRESSURE Last administered on 05/22/17 05:37; Admin Dose 50 MG; Start 04/17/17 at 18:00 Multivitamins Therapeutic (Theragran) 1 tab DAILY GTB Last administered on 05/22 09:07; Admin Dose 1 TAB; Start 04/18/17 at 09:00 Miscellaneous Information 1 ea NOTE XX ; Start 04/17/17 at 21:00 Glucose (Glutose) 15 gm Q15M PRN PO DECREASED GLUCOSE; Start 04/17/17 at 21:00 Glucose (Glutose) 22.5 gm Q15M PRN PO DECREASED GLUCOSE; Start 04/17/17 at 21: 00 Dextrose (D50w Syringe) 25 ml Q15M PRN IV DECREASED GLUCOSE Last administered on 05/18/17 20:46; Admin Dose 25 ML; Start 04/17/17 at 21:00 Dextrose (D50w Syringe) 50 ml Q15M PRN IV DECREASED GLUCOSE Last administered on 05/06/17 06:24; Admin Dose 50 ML; Start 04/17/17 at 21:00 Glucagon (Glucagen) 1 mg Q15M PRN IM DECREASED GLUCOSE; Start 04/17/17 at 21:00 Glucose (Glutose) 15 gm Q15M PRN BUCCAL DECREASED GLUCOSE; Start 04/17/17 at 21 :00 Ondansetron HCl (Zofran Inj) 4 mg Q6H PRN IV NAUSEA AND/OR VOMITING; Start at 00:30 Insulin Aspart (Novolog Insulin Pen) (Adult SC Insulin - Mild Algorithm)... Q6 SC Last administered on 05/20/17 23:59; Admin Dose 1 UNIT; Start 04/20/17 at 00:00 Insulin Glargine (Lantus) 14 unit QHS SC Last administered on 05/21/17 21:24; Admin Dose 14 UNIT; Start 04/20/17 at 21:00 Metoprolol Tartrate (Lopressor) 25 mg BID PO Last administered on 04/28/17 08: 14; Admin Dose 25 MG; Start 04/23/17 at 09:00; Status Future Hold Hydralazine HCl (Apresoline) 10 mg Q4H PRN IV SBP>170; Start 04/22/17 at 22:00 Nitroglycerin (Nitroglycerin (Sl Tab) 0.4 Mg) 1 tab Q5M PRN SL ANGINA; Start at 18:00 Acetaminophen/ Hydrocodone Bitart ([place] (5/325)) 1 tab Q6H PRN PO PAIN LEVEL 4 -7 Last administered on 05/17/17 05:18; Admin Dose 1 TAB; Start 05/03/17 at 03: 30 Acetaminophen (Tylenol Liquid) 650 mg Q4H PRN GTB PAIN AND OR ELEVATED TEMP Last administered on 05/12/17 18:12; Admin Dose 650 MG; Start 05/03/17 at 03:30 Metoclopramide HCl (Reglan) 5 mg TID IV Last administered on 05/22/17 09:07; Admin Dose 5 MG; Start 05/05/17 at 13:00 Amlodipine Besylate (Norvasc) 5 mg DAILY GTB Last administered on 05/22/17 09: 07; Admin Dose 5 MG; Start 05/07/17 at 09:00 Zinc Acetate/ Diphenhydramine (Benadryl 2% Cr) 1 applic Q8 PRN TOP ITCHING Last administered on 05/18/17 03:31; Admin Dose 1 APPLIC; Start 05/07/17 at 11: 00 Lansoprazole (Prevacid) 30 mg BID@06,18 GTB Last administered on 05/22/17 05: 37; Admin Dose 30 MG; Start 05/08/17 at 18:00 Clonidine HCl (Catapres-Tts 1 Patch) 1 patch Q7D TRANSDERM Last administered on 9/23/17at 15:11; Admin Dose 1 PATCH; Start 05/08/17 at 15:00 Epoetin Taqueria (Epogen (Esrd)) 2,000 units MoWeFr@17 SC Last administered on 05/21 17:49; Admin Dose 2,000 UNITS; Start 05/17/17 at 17:00 Alprazolam (Xanax) 0.5 mg Q6H PRN JT ANXIETY Last administered on 05/22/17 10: 03; Admin Dose 0.5 MG; Start 05/19/17 at 18:30 AURA CALL May 22, 2017 12:21
--- NOTE | 2017-05-22 13:33 | CONS ---
Date/Time of Note Date/Time of Note DATE: 05/22/17 TIME: 13:32 Assessment/Plan Assessment/Plan Chief Complaint/Hosp Course IMP: 1.HTN-somewhat labile but reasonable BP overall 2.H/O PAF-Remains in SR at this time by exam 3.renal failure 4.dysphagia 5. AMS 6. Heart [id number] HR.improved with holding BB overall some intermittent recurrence when on Tele still 7. Chest pain-resolved/negative troponin/no change on serial ecg 8. Occasional PVC's-when on tele 9. CHF-diastolic acute on chronic 10.UTI 11.anemia REcc: -Now on med-surg -serial ecg's to document rhythm -Continue norvasc/clondine TTS and follow BP closely -Continue to Hold BB given wenkebach -Follow volume status closely with HD today -HD for volume removal -Follow MS kam Problems: Consultation Date/Type/Reason Admit Date/Time Apr 17, 2017 at 16:39 Initial Consult Date 04/18/17 Type of Consultation: cardiology Reason for Consultation AF Referring Provider: PORTIA OLIVER MD Exam/Review of Systems Vital Signs Vitals Vital Signs Date Time Temp Pulse Resp B/P Pulse Ox O2 Delivery O2 Flow Rate FiO2 05/22/17 08:44 80 20 97 21 05/22/17 07:00 98.9 151/69 Intake and Output 05/21/17 05/21/17 05/22/17 15:00 23:00 07:00 Intake Total 1100 ml 1260 ml Output Total 700 ml 900 ml Balance 400 ml 360 ml Exam Review of Systems: CONSTITUTIONAL: No fevers, chills. PULMONARY: No sob CARDIOVASCULAR: No chest pain/palpitations GASTROINTESTINAL: No nausea/vomiting. GENITOURINARY: No hematuria/dysuria. MUSCULOSKELETAL: No myagias/arthalgias. PSYCHIATRIC: The patient denies depression. NEUROLOGIC: No weakness Constitutional: other (sleeping) Psych: no complaints Head: normocephalic ENMT: mucosa pink and moist Neck: jvd (8 cm water), supple Respiratory: diminished breath sounds (at bases/B) Cardiovascular: regular rate and rhythm Gastrointestinal: non-tender, soft Musculoskeletal: muscle tone (normal) Extremities: edema (none) Neurological: other (No focal deficits) Results Result Diagram: 05/20/17 0440 05/22/17 0907 Results 24 hrs Laboratory Tests Test 05/21/17 17:57 05/21/17 21:19 05/22/17 00:18 05/22/17 05:31 Bedside Glucose 124 130 137 139 Test 05/22/17 08:41 05/22/17 09:07 05/22/17 12:23 Bedside Glucose 138 92 Sodium Level 141 Potassium Level 3.7 Chloride Level 101 Carbon Dioxide Level 33 H Anion Gap 11 Blood Urea Nitrogen 74 H Creatinine 2.71 H Glucose Level 113 Calcium Level 8.5 Medications Medications Current Medications Acetaminophen (Tylenol Tab) 650 mg Q6H PRN GTB PAIN AND OR ELEVATED TEMP Last administered on 05/05/17 12:01; Admin Dose 650 MG; Start 04/17/17 at 18:00 Bisacodyl (Dulcolax Supp) 10 mg Q24H [place] Last administered on 05/21/17 17:48; Admin Dose 10 MG; Start 04/17/17 at 18:00 Diphenhydramine HCl (Benadryl) 25 mg Q6H PRN GTB ITCHING Last administered on 09:07; Admin Dose 25 MG; Start 04/17/17 at 18:00 Hydralazine HCl (Apresoline) 50 mg Q8 PRN GTB ELEVATED BLOOD PRESSURE Last administered on 05/22/17 05:37; Admin Dose 50 MG; Start 04/17/17 at 18:00 Multivitamins Therapeutic (Theragran) 1 tab DAILY GTB Last administered on 05/22 09:07; Admin Dose 1 TAB; Start 04/18/17 at 09:00 Miscellaneous Information 1 ea NOTE XX ; Start 04/17/17 at 21:00 Glucose (Glutose) 15 gm Q15M PRN PO DECREASED GLUCOSE; Start 04/17/17 at 21:00 Glucose (Glutose) 22.5 gm Q15M PRN PO DECREASED GLUCOSE; Start 04/17/17 at 21: 00 Dextrose (D50w Syringe) 25 ml Q15M PRN IV DECREASED GLUCOSE Last administered on 05/18/17 20:46; Admin Dose 25 ML; Start 04/17/17 at 21:00 Dextrose (D50w Syringe) 50 ml Q15M PRN IV DECREASED GLUCOSE Last administered on 05/06/17 06:24; Admin Dose 50 ML; Start 04/17/17 at 21:00 Glucagon (Glucagen) 1 mg Q15M PRN IM DECREASED GLUCOSE; Start 04/17/17 at 21:00 Glucose (Glutose) 15 gm Q15M PRN BUCCAL DECREASED GLUCOSE; Start 04/17/17 at 21 :00 Ondansetron HCl (Zofran Inj) 4 mg Q6H PRN IV NAUSEA AND/OR VOMITING; Start at 00:30 Insulin Aspart (Novolog Insulin Pen) (Adult SC Insulin - Mild Algorithm)... Q6 SC Last administered on 05/20/17 23:59; Admin Dose 1 UNIT; Start 04/20/17 at 00:00 Insulin Glargine (Lantus) 14 unit QHS SC Last administered on 05/21/17 21:24; Admin Dose 14 UNIT; Start 04/20/17 at 21:00 Metoprolol Tartrate (Lopressor) 25 mg BID PO Last administered on 04/28/17 08: 14; Admin Dose 25 MG; Start 04/23/17 at 09:00; Status Future Hold Hydralazine HCl (Apresoline) 10 mg Q4H PRN IV SBP>170; Start 04/22/17 at 22:00 Nitroglycerin (Nitroglycerin (Sl Tab) 0.4 Mg) 1 tab Q5M PRN SL ANGINA; Start at 18:00 Acetaminophen/ Hydrocodone Bitart ([place] (5/325)) 1 tab Q6H PRN PO PAIN LEVEL 4 -7 Last administered on 05/17/17 05:18; Admin Dose 1 TAB; Start 05/03/17 at 03: 30 Acetaminophen (Tylenol Liquid) 650 mg Q4H PRN GTB PAIN AND OR ELEVATED TEMP Last administered on 05/12/17 18:12; Admin Dose 650 MG; Start 05/03/17 at 03:30 Metoclopramide HCl (Reglan) 5 mg TID IV Last administered on 05/22/17 09:07; Admin Dose 5 MG; Start 05/05/17 at 13:00 Amlodipine Besylate (Norvasc) 5 mg DAILY GTB Last administered on 05/22/17 09: 07; Admin Dose 5 MG; Start 05/07/17 at 09:00 Zinc Acetate/ Diphenhydramine (Benadryl 2% Cr) 1 applic Q8 PRN TOP ITCHING Last administered on 05/18/17 03:31; Admin Dose 1 APPLIC; Start 05/07/17 at 11: 00 Lansoprazole (Prevacid) 30 mg BID@06,18 GTB Last administered on 05/22/17 05: 37; Admin Dose 30 MG; Start 05/08/17 at 18:00 Clonidine HCl (Catapres-Tts 1 Patch) 1 patch Q7D TRANSDERM Last administered on 05/15/17 15:11; Admin Dose 1 PATCH; Start 05/08/17 at 15:00 Epoetin Taqueria (Epogen (Esrd)) 2,000 units MoWeFr@17 SC Last administered on 05/21 17:49; Admin Dose 2,000 UNITS; Start 05/17/17 at 17:00 Alprazolam (Xanax) 0.5 mg Q6H PRN JT ANXIETY Last administered on 05/22/17 10: 03; Admin Dose 0.5 MG; Start 05/19/17 at 18:30 LESLI SHEA May 22, 2017 13:33
[2017-05-22] MEDS: CLONIDINE 0.1 MG/24 HR PATCH TRANSDERM SCH (15:08)
--- NOTE | 2017-05-22 15:36 | CONS ---
Date/Time of Note Date/Time of Note DATE: 05/22/17 TIME: 15:35 Assessment/Plan Assessment/Plan Chief Complaint/Hosp Course 1. ESRD Hd initiated on 05/06 2.Hypernatremia >improving 3.HTN, controlled 4 Ecoli UTI 5. Sepsis due to #4 6. Chronic Afib 7. CVA s/p G tube placement 8. Renal cyst 9 Hyperphosphatemia. Problems: Additional Assessment/Plan 1. continue HD 2. Optimization of kidney function Consultation Date/Type/Reason Admit Date/Time Apr 17, 2017 at 16:39 Initial Consult Date 04/18/17 Type of Consultation: nephrology Reason for Consultation Dr Cheema Referring Provider: PORTIA OLIVER MD Exam/Review of Systems Vital Signs Vitals Vital Signs Date Time Temp Pulse Resp B/P Pulse Ox O2 Delivery O2 Flow Rate FiO2 05/22/17 14:00 98.6 82 20 153/70 98 05/22/17 08:44 21 Intake and Output 05/21/17 05/21/17 05/22/17 15:00 23:00 07:00 Intake Total 1100 ml 1260 ml Output Total 700 ml 900 ml Balance 400 ml 360 ml Exam frail Constitutional: other (confused) Neck: supple Respiratory: diminished breath sounds Cardiovascular: irregular rhythm Gastrointestinal: other (GT), soft Results Result Diagram: 05/20/17 0440 05/22/17 0907 Results 24 hrs Laboratory Tests Test 05/21/17 17:57 05/21/17 21:19 05/22/17 00:18 05/22/17 05:31 Bedside Glucose 124 130 137 139 Test 05/22/17 08:41 05/22/17 09:07 05/22/17 12:23 Bedside Glucose 138 92 Sodium Level 141 Potassium Level 3.7 Chloride Level 101 Carbon Dioxide Level 33 H Anion Gap 11 Blood Urea Nitrogen 74 H Creatinine 2.71 H Glucose Level 113 Calcium Level 8.5 Medications Medications Current Medications Acetaminophen (Tylenol Tab) 650 mg Q6H PRN GTB PAIN AND OR ELEVATED TEMP Last administered on 05/05/17 12:01; Admin Dose 650 MG; Start 04/17/17 at 18:00 Bisacodyl (Dulcolax Supp) 10 mg Q24H [place] Last administered on 05/21/17 17:48; Admin Dose 10 MG; Start 04/17/17 at 18:00 Diphenhydramine HCl (Benadryl) 25 mg Q6H PRN GTB ITCHING Last administered on 09:07; Admin Dose 25 MG; Start 04/17/17 at 18:00 Hydralazine HCl (Apresoline) 50 mg Q8 PRN GTB ELEVATED BLOOD PRESSURE Last administered on 05/22/17 05:37; Admin Dose 50 MG; Start 04/17/17 at 18:00 Multivitamins Therapeutic (Theragran) 1 tab DAILY GTB Last administered on 05/22 09:07; Admin Dose 1 TAB; Start 04/18/17 at 09:00 Miscellaneous Information 1 ea NOTE XX ; Start 04/17/17 at 21:00 Glucose (Glutose) 15 gm Q15M PRN PO DECREASED GLUCOSE; Start 04/17/17 at 21:00 Glucose (Glutose) 22.5 gm Q15M PRN PO DECREASED GLUCOSE; Start 04/17/17 at 21: 00 Dextrose (D50w Syringe) 25 ml Q15M PRN IV DECREASED GLUCOSE Last administered on 05/18/17 20:46; Admin Dose 25 ML; Start 04/17/17 at 21:00 Dextrose (D50w Syringe) 50 ml Q15M PRN IV DECREASED GLUCOSE Last administered on 05/06/17 06:24; Admin Dose 50 ML; Start 04/17/17 at 21:00 Glucagon (Glucagen) 1 mg Q15M PRN IM DECREASED GLUCOSE; Start 04/17/17 at 21:00 Glucose (Glutose) 15 gm Q15M PRN BUCCAL DECREASED GLUCOSE; Start 04/17/17 at 21 :00 Ondansetron HCl (Zofran Inj) 4 mg Q6H PRN IV NAUSEA AND/OR VOMITING; Start at 00:30 Insulin Aspart (Novolog Insulin Pen) (Adult SC Insulin - Mild Algorithm)... Q6 [place] Last administered on 05/20/17 23:59; Admin Dose 1 UNIT; Start 04/20/17 at 00:00 Insulin Glargine (Lantus) 14 unit QHS [place] Last administered on 05/21/17 21:24; Admin Dose 14 UNIT; Start 04/20/17 at 21:00 Metoprolol Tartrate (Lopressor) 25 mg BID PO Last administered on 04/28/17 08: 14; Admin Dose 25 MG; Start 04/23/17 at 09:00; Status Future Hold Hydralazine HCl (Apresoline) 10 mg Q4H PRN IV SBP>170; Start 04/22/17 at 22:00 Nitroglycerin (Nitroglycerin (Sl Tab) 0.4 Mg) 1 tab Q5M PRN SL ANGINA; Start at 18:00 Acetaminophen/ Hydrocodone Bitart ([place] (5/325)) 1 tab Q6H PRN PO PAIN LEVEL 4 -7 Last administered on 05/17/17 05:18; Admin Dose 1 TAB; Start 05/03/17 at 03: 30 Acetaminophen (Tylenol Liquid) 650 mg Q4H PRN GTB PAIN AND OR ELEVATED TEMP Last administered on 05/12/17 18:12; Admin Dose 650 MG; Start 05/03/17 at 03:30 Metoclopramide HCl (Reglan) 5 mg TID IV Last administered on 05/22/17 09:07; Admin Dose 5 MG; Start 05/05/17 at 13:00 Amlodipine Besylate (Norvasc) 5 mg DAILY GTB Last administered on 05/22/17 09: 07; Admin Dose 5 MG; Start 05/07/17 at 09:00 Zinc Acetate/ Diphenhydramine (Benadryl 2% Cr) 1 applic Q8 PRN TOP ITCHING Last administered on 05/18/17 03:31; Admin Dose 1 APPLIC; Start 05/07/17 at 11: 00 Lansoprazole (Prevacid) 30 mg BID@06,18 GTB Last administered on 05/22/17 05: 37; Admin Dose 30 MG; Start 05/08/17 at 18:00 Clonidine HCl (Catapres-Tts 1 Patch) 1 patch Q7D TRANSDERM Last administered on 05/22/17 15:08; Admin Dose 1 PATCH; Start 05/08/17 at 15:00 Epoetin Taqueria (Epogen (Esrd)) 2,000 units MoWeFr@17 SC Last administered on 05/21 17:49; Admin Dose 2,000 UNITS; Start 05/17/17 at 17:00 Alprazolam (Xanax) 0.5 mg Q6H PRN JT ANXIETY Last administered on 05/22/17t 10: 03; Admin Dose 0.5 MG; Start 05/19/17 at 18:30 CHELSIE HERNÁNDEZ May 22, 2017 15:36
[2017-05-22] MEDS: HYDROCODONE/APAP (5/325) TAB PO PRN (17:32)
[2017-05-22] MEDS: BISACODYL 10 MG SUPP PR SCH (17:38)
[2017-05-22] MEDS: INSULIN GLARGINE [LANtus] 3 ML PEN SC SCH (21:21)
[2017-05-23] MEDS: ALBUTEROL/IPRATROPIUM (NEB) 3 ML AMP HHN SCH ×4 (01:35→19:45)
[2017-05-23] MEDS: Insulin NOVOLOG SS MILD Algorithm (NPO/TPN/ENTERAL FEEDS) SC SCH ×5 (06:00→23:58)
[2017-05-23] MEDS: LANSOPRAZOLE 30 MG CAP GTB SCH ×2 (06:01→17:23)
[2017-05-23 08:32] VITALS: BP 159/72; RESP 18
[2017-05-23] MEDS: MULTIVITAMINS THERAPEUTIC TAB GTB SCH (09:19)
[2017-05-23] MEDS: AMLODIPINE 5 MG TAB GTB SCH ×2 (09:19→20:16)
[2017-05-23] MEDS: ALPRAZOLAM 0.5 MG TAB JT PRN (09:20)
[2017-05-23] MEDS: METOCLOPRAMIDE 10 MG INJ IV SCH ×3 (09:20→20:16)
--- NOTE | 2017-05-23 10:48 | PN ---
Date/Time of Note Date/Time of Note DATE: 05/23/17 TIME: 10:48 Assessment/Plan VTE Prophylaxis VTE Prophylaxis Intervention: other Lines/Catheters IV Catheter Type (from Nrs): Sal[place] Lock Urinary Cath still in place: Yes Reason Cath still needed: skin wounds contaminated by urine Assessment/Plan Chief Complaint/Hosp Course - Acute kidney injury on chronic kidney disease. Continue hemodialysis per renal. Dr. Cheema is following in nephrology consultation. - Protein calorie malnutrition, increase G-tube feeding according to blasting [employer]er recommendations - Status post post urinary tract infection. - History of cerebrovascular accident - Diabetes mellitus. Continue Lantus and NovoLog. - Diastolic congestive heart failure. Continue to monitor intake and output. - Paroxysmal atrial fibrillation, currently in sinus rhythm. - Hypertension. Continue Norvasc. - Hyperlipidemia. Continue statin. - Urinary retention with Flores catheter. - Dysphagia, status post PEG placement - Anemia of chronic disease, continue Epogen. 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 Problems: Subjective 24 Hr Interval Summary Free Text/Dictation Patient has no complaints Exam/Review of Systems Vital Signs Vitals Vital Signs Date Time Temp Pulse Resp B/P Pulse Ox O2 Delivery O2 Flow Rate FiO2 05/23/17 08:32 98.6 79 18 159/72 98 05/23/17 01:36 21 05/22/17 19:44 Room Air Intake and Output 05/22/17 05/22/17 05/23/17 15:00 23:00 07:00 Intake Total 500 ml 1260 ml 1080 ml Output Total 1000 ml 550 ml 1100 ml Balance -500 ml 710 ml -20 ml Exam Constitutional: well developed Head: atraumatic, normocephalic Neck: supple Respiratory: clear to auscultation Cardiovascular: regular rate and rhythm Gastrointestinal: non-tender, soft Extremities: normal pulses Results Result Diagram: 05/20/17 0440 05/22/17 0907 Results 24 hrs Laboratory Tests Test 05/22/17 12:23 05/22/17 17:47 05/22/17 21:17 05/22/17 23:47 Bedside Glucose 92 94 124 137 Test 05/23/17 06:03 Bedside Glucose 137 Medications Medications Current Medications Acetaminophen (Tylenol Tab) 650 mg Q6H PRN GTB PAIN AND OR ELEVATED TEMP Last administered on 05/05/17t 12:01; Admin Dose 650 MG; Start 04/17/17 at 18:00 Bisacodyl (Dulcolax Supp) 10 mg Q24H [place] Last administered on 05/22/17 17:38; Admin Dose 10 MG; Start 04/17/17 at 18:00 Diphenhydramine HCl (Benadryl) 25 mg Q6H PRN GTB ITCHING Last administered on 09:07; Admin Dose 25 MG; Start 04/17/17 at 18:00 Hydralazine HCl (Apresoline) 50 mg Q8 PRN GTB ELEVATED BLOOD PRESSURE Last administered on 05/22/17 05:37; Admin Dose 50 MG; Start 04/17/17 at 18:00 Multivitamins Therapeutic (Theragran) 1 tab DAILY GTB Last administered on 05/23 09:19; Admin Dose 1 TAB; Start 04/18/17 at 09:00 Miscellaneous Information 1 ea NOTE XX ; Start 04/17/17 at 21:00 Glucose (Glutose) 15 gm Q15M PRN PO DECREASED GLUCOSE; Start 04/17/17 at 21:00 Glucose (Glutose) 22.5 gm Q15M PRN PO DECREASED GLUCOSE; Start 04/17/17 at 21: 00 Dextrose (D50w Syringe) 25 ml Q15M PRN IV DECREASED GLUCOSE Last administered on 05/18/17 20:46; Admin Dose 25 ML; Start 04/17/17 at 21:00 Dextrose (D50w Syringe) 50 ml Q15M PRN IV DECREASED GLUCOSE Last administered on 05/06/17 06:24; Admin Dose 50 ML; Start 04/17/17 at 21:00 Glucagon (Glucagen) 1 mg Q15M PRN IM DECREASED GLUCOSE; Start 04/17/17 at 21:00 Glucose (Glutose) 15 gm Q15M PRN BUCCAL DECREASED GLUCOSE; Start 04/17/17 at 21 :00 Ondansetron HCl (Zofran Inj) 4 mg Q6H PRN IV NAUSEA AND/OR VOMITING; Start at 00:30 Insulin Aspart (Novolog Insulin Pen) (Adult SC Insulin - Mild Algorithm)... Q6 [place] Last administered on 05/20/17 23:59; Admin Dose 1 UNIT; Start 04/20/17 at 00:00 Insulin Glargine (Lantus) 14 unit QHS SC Last administered on 05/22/17 21:21; Admin Dose 14 UNIT; Start 04/20/17 at 21:00 Metoprolol Tartrate (Lopressor) 25 mg BID PO Last administered on 04/28/17 08: 14; Admin Dose 25 MG; Start 04/23/17 at 09:00; Status Future Hold Hydralazine HCl (Apresoline) 10 mg Q4H PRN IV SBP>170; Start 04/22/17 at 22:00 Nitroglycerin (Nitroglycerin (Sl Tab) 0.4 Mg) 1 tab Q5M PRN SL ANGINA; Start at 18:00 Acetaminophen/ Hydrocodone Bitart ([place] (5/325)) 1 tab Q6H PRN PO PAIN LEVEL 4 -7 Last administered on 05/22/17 17:32; Admin Dose 1 TAB; Start 05/03/17 at 03: 30 Acetaminophen (Tylenol Liquid) 650 mg Q4H PRN GTB PAIN AND OR ELEVATED TEMP Last administered on 05/12/17 18:12; Admin Dose 650 MG; Start 05/03/17 at 03:30 Metoclopramide HCl (Reglan) 5 mg TID IV Last administered on 05/23/17 09:20; Admin Dose 5 MG; Start 05/05/17 at 13:00 Amlodipine Besylate (Norvasc) 5 mg DAILY GTB Last administered on 05/23/17 09: 19; Admin Dose 5 MG; Start 05/07/17 at 09:00 Zinc Acetate/ Diphenhydramine (Benadryl 2% Cr) 1 applic Q8 PRN TOP ITCHING Last administered on 05/18/17 03:31; Admin Dose 1 APPLIC; Start 05/07/17 at 11: 00 Lansoprazole (Prevacid) 30 mg BID@,18 GTB Last administered on 05/23/17 06: 01; Admin Dose 30 MG; Start 05/08/17 at 18:00 Clonidine HCl (Catapres-Tts 1 Patch) 1 patch Q7D TRANSDERM Last administered on 05/22/17 15:08; Admin Dose 1 PATCH; Start 05/08/17 at 15:00 Epoetin Taqueria (Epogen (Esrd)) 2,000 units MoWeFr@17 SC Last administered on 05/21 17:49; Admin Dose 2,000 UNITS; Start 05/17/17 at 17:00 Alprazolam (Xanax) 0.5 mg Q6H PRN JT ANXIETY Last administered on 05/23/17 09: 20; Admin Dose 0.5 MG; Start 05/19/17 at 18:30 AURA CALL May 23, 2017 10:48
--- NOTE | 2017-05-23 11:59 | CONS ---
Date/Time of Note Date/Time of Note DATE: 05/23/17 TIME: 11:58 Assessment/Plan Assessment/Plan Chief Complaint/Hosp Course 1. ESRD Hd initiated on 05/06 2.Hypernatremia >improving 3.HTN, controlled 4 Ecoli UTI 5. Sepsis due to #4 6. Chronic Afib 7. CVA s/p G tube placement 8. Renal cyst 9 Hyperphosphatemia. Problems: Additional Assessment/Plan 1. continue HD 2. Better hypertension control Consultation Date/Type/Reason Admit Date/Time Apr 17, 2017 at 16:39 Initial Consult Date 04/18/17 Type of Consultation: nephrology Reason for Consultation Dr Cheema Referring Provider: PORTIA OLIVER MD 24 HR Interval Summary Free Text/Dictation confused Constitutional: disoriented Exam/Review of Systems Vital Signs Vitals Vital Signs Date Time Temp Pulse Resp B/P Pulse Ox O2 Delivery O2 Flow Rate FiO2 05/23/17 08:32 98.6 79 18 159/72 98 05/23/17 01:36 21 05/22/17 19:44 Room Air Intake and Output 05/22/17 05/22/17 05/23/17 15:00 23:00 07:00 Intake Total 500 ml 1260 ml 1080 ml Output Total 1000 ml 550 ml 1100 ml Balance -500 ml 710 ml -20 ml Exam Constitutional: other (confised) Head: atraumatic, normocephalic Neck: supple Respiratory: diminished breath sounds Cardiovascular: irregular rhythm Gastrointestinal: soft Genitourinary - Male: nl scrotum Musculoskeletal: nl extremities to inspection Results Result Diagram: 05/20/17 0440 05/22/17 0907 Results 24 hrs Laboratory Tests Test 05/22/17 12:23 05/22/17 17:47 05/22/17 21:17 05/22/17 23:47 Bedside Glucose 92 94 124 137 Test 05/23/17 06:03 Bedside Glucose 137 Medications Medications Current Medications Acetaminophen (Tylenol Tab) 650 mg Q6H PRN GTB PAIN AND OR ELEVATED TEMP Last administered on 05/05/17 12:01; Admin Dose 650 MG; Start 04/17/17 at 18:00 Bisacodyl (Dulcolax Supp) 10 mg Q24H [place] Last administered on 05/22/17 17:38; Admin Dose 10 MG; Start 04/17/17 at 18:00 Diphenhydramine HCl (Benadryl) 25 mg Q6H PRN GTB ITCHING Last administered on 09:07; Admin Dose 25 MG; Start 04/17/17 at 18:00 Hydralazine HCl (Apresoline) 50 mg Q8 PRN GTB ELEVATED BLOOD PRESSURE Last administered on 05/22/17 05:37; Admin Dose 50 MG; Start 04/17/17 at 18:00 Multivitamins Therapeutic (Theragran) 1 tab DAILY GTB Last administered on 05/23 09:19; Admin Dose 1 TAB; Start 04/18/17 at 09:00 Miscellaneous Information 1 ea NOTE XX ; Start 04/17/17 at 21:00 Glucose (Glutose) 15 gm Q15M PRN PO DECREASED GLUCOSE; Start 04/17/17 at 21:00 Glucose (Glutose) 22.5 gm Q15M PRN PO DECREASED GLUCOSE; Start 04/17/17 at 21: 00 Dextrose (D50w Syringe) 25 ml Q15M PRN IV DECREASED GLUCOSE Last administered on 05/18/17 20:46; Admin Dose 25 ML; Start 04/17/17 at 21:00 Dextrose (D50w Syringe) 50 ml Q15M PRN IV DECREASED GLUCOSE Last administered on 05/06/17 06:24; Admin Dose 50 ML; Start 04/17/17 at 21:00 Glucagon (Glucagen) 1 mg Q15M PRN IM DECREASED GLUCOSE; Start 04/17/17 at 21:00 Glucose (Glutose) 15 gm Q15M PRN BUCCAL DECREASED GLUCOSE; Start 04/17/17 at 21 :00 Ondansetron HCl (Zofran Inj) 4 mg Q6H PRN IV NAUSEA AND/OR VOMITING; Start at 00:30 Insulin Aspart (Novolog Insulin Pen) (Adult SC Insulin - Mild Algorithm)... Q6 SC Last administered on 05/20/17 23:59; Admin Dose 1 UNIT; Start 04/20/17 at 00:00 Insulin Glargine (Lantus) 14 unit QHS SC Last administered on 05/22/17 21:21; Admin Dose 14 UNIT; Start 04/20/17 at 21:00 Metoprolol Tartrate (Lopressor) 25 mg BID PO Last administered on 04/28/17 08: 14; Admin Dose 25 MG; Start 04/23/17 at 09:00; Status Future Hold Hydralazine HCl (Apresoline) 10 mg Q4H PRN IV SBP>170; Start 04/22/17 at 22:00 Nitroglycerin (Nitroglycerin (Sl Tab) 0.4 Mg) 1 tab Q5M PRN SL ANGINA; Start at 18:00 Acetaminophen/ Hydrocodone Bitart ([place] (5/325)) 1 tab Q6H PRN PO PAIN LEVEL 4 -7 Last administered on 05/22/17 17:32; Admin Dose 1 TAB; Start 05/03/17 at 03: 30 Acetaminophen (Tylenol Liquid) 650 mg Q4H PRN GTB PAIN AND OR ELEVATED TEMP Last administered on 05/12/17 18:12; Admin Dose 650 MG; Start 05/03/17 at 03:30 Metoclopramide HCl (Reglan) 5 mg TID IV Last administered on 05/23/17 09:20; Admin Dose 5 MG; Start 05/05/17 at 13:00 Amlodipine Besylate (Norvasc) 5 mg DAILY GTB Last administered on 05/23/17 09: 19; Admin Dose 5 MG; Start 05/07/17 at 09:00 Zinc Acetate/ Diphenhydramine (Benadryl 2% Cr) 1 applic Q8 PRN TOP ITCHING Last administered on 05/18/17 03:31; Admin Dose 1 APPLIC; Start 05/07/17 at 11: 00 Lansoprazole (Prevacid) 30 mg BID@06,18 GTB Last administered on 05/23/17 06: 01; Admin Dose 30 MG; Start 05/08/17 at 18:00 Clonidine HCl (Catapres-Tts 1 Patch) 1 patch Q7D TRANSDERM Last administered on 05/22/17 15:08; Admin Dose 1 PATCH; Start 05/08/17 at 15:00 Epoetin Taqueria (Epogen (Esrd)) 2,000 units MoWeFr@17 SC Last administered on 05/21 17:49; Admin Dose 2,000 UNITS; Start 05/17/17 at 17:00 Alprazolam (Xanax) 0.5 mg Q6H PRN JT ANXIETY Last administered on 05/23/17t 09: 20; Admin Dose 0.5 MG; Start 05/19/17 at 18:30 CHELSIE HERNÁNDEZ May 23, 2017 11:59
--- NOTE | 2017-05-23 13:13 | CONS ---
Date/Time of Note Date/Time of Note DATE: 05/23/17 TIME: 13:11 Assessment/Plan Assessment/Plan Chief Complaint/Hosp Course IMP: 1.HTN-elevated 2.H/O PAF-Remains in SR at this time by exam 3.renal failure 4.dysphagia 5. AMS 6. Heart azsvs-cfqwnvnlg-[id number] HR.improved with holding BB overall some intermittent recurrence when on Tele still 7. Chest pain-resolved/negative troponin/no change on serial ecg 8. Occasional PVC's-when on tele 9. CHF-diastolic acute on chronic 10.UTI 11.anemia REcc: -Now on med-surg -serial ecg's to document rhythm -Continue clondine TTS and will increase norvasc and f/u BP control -Continue to Hold BB given wenkebach -Follow volume status closely with HD today -HD for volume removal -Follow MS kam Problems: Consultation Date/Type/Reason Admit Date/Time Apr 17, 2017 at 16:39 Initial Consult Date 04/18/17 Type of Consultation: cardiology Reason for Consultation HTN/AF Referring Provider: PORTIA OLIVER MD Exam/Review of Systems Vital Signs Vitals Vital Signs Date Time Temp Pulse Resp B/P Pulse Ox O2 Delivery O2 Flow Rate FiO2 05/23/17 09:33 73 18 98 21 05/23/17 08:32 98.6 159/72 05/22/17 19:44 Room Air Intake and Output 05/22/17 05/22/17 05/23/17 15:00 23:00 07:00 Intake Total 500 ml 1260 ml 1080 ml Output Total 1000 ml 550 ml 1100 ml Balance -500 ml 710 ml -20 ml Exam Review of Systems: CONSTITUTIONAL: No fevers, chills. PULMONARY: No sob CARDIOVASCULAR: No chest pain/palpitations GASTROINTESTINAL: No nausea/vomiting. GENITOURINARY: No hematuria/dysuria. MUSCULOSKELETAL: No myagias/arthalgias. PSYCHIATRIC: The patient denies depression. NEUROLOGIC: lethargic Constitutional: other (sleeping) Head: normocephalic ENMT: mucosa pink and moist Neck: jvd (9 cm water), supple Respiratory: diminished breath sounds (at bases/B) Cardiovascular: regular rate and rhythm Gastrointestinal: non-tender, soft Musculoskeletal: muscle tone (normal) Extremities: edema (none) Neurological: lethargic Results Result Diagram: 05/20/17 0440 05/22/17 0907 Results 24 hrs Laboratory Tests Test 05/22/17 17:47 05/22/17 21:17 05/22/17 23:47 05/23/17 06:03 Bedside Glucose 94 124 137 137 Test 05/23/17 12:06 Bedside Glucose 167 Medications Medications Current Medications Acetaminophen (Tylenol Tab) 650 mg Q6H PRN GTB PAIN AND OR ELEVATED TEMP Last administered on 05/05/17 12:01; Admin Dose 650 MG; Start 04/17/17 at 18:00 Bisacodyl (Dulcolax Supp) 10 mg Q24H [place] Last administered on 05/22/17 17:38; Admin Dose 10 MG; Start 04/17/17 at 18:00 Diphenhydramine HCl (Benadryl) 25 mg Q6H PRN GTB ITCHING Last administered on 09:07; Admin Dose 25 MG; Start 04/17/17 at 18:00 Multivitamins Therapeutic (Theragran) 1 tab DAILY GTB Last administered on 05/23 09:19; Admin Dose 1 TAB; Start 04/18/17 at 09:00 Miscellaneous Information 1 ea NOTE XX ; Start 04/17/17 at 21:00 Glucose (Glutose) 15 gm Q15M PRN PO DECREASED GLUCOSE; Start 04/17/17 at 21:00 Glucose (Glutose) 22.5 gm Q15M PRN PO DECREASED GLUCOSE; Start 04/17/17 at 21: 00 Dextrose (D50w Syringe) 25 ml Q15M PRN IV DECREASED GLUCOSE Last administered on 05/18/17 20:46; Admin Dose 25 ML; Start 04/17/17 at 21:00 Dextrose (D50w Syringe) 50 ml Q15M PRN IV DECREASED GLUCOSE Last administered on 05/06/17 06:24; Admin Dose 50 ML; Start 04/17/17 at 21:00 Glucagon (Glucagen) 1 mg Q15M PRN IM DECREASED GLUCOSE; Start 04/17/17 at 21:00 Glucose (Glutose) 15 gm Q15M PRN BUCCAL DECREASED GLUCOSE; Start 04/17/17 at 21 :00 Ondansetron HCl (Zofran Inj) 4 mg Q6H PRN IV NAUSEA AND/OR VOMITING; Start at 00:30 Insulin Aspart (Novolog Insulin Pen) (Adult SC Insulin - Mild Algorithm)... Q6 SC Last administered on 05/23/17 12:15; Admin Dose 1 UNIT; Start 04/20/17 at 00:00 Insulin Glargine (Lantus) 14 unit QHS SC Last administered on 05/22/17 21:21; Admin Dose 14 UNIT; Start 04/20/17 at 21:00 Metoprolol Tartrate (Lopressor) 25 mg BID PO Last administered on 04/28/17 08: 14; Admin Dose 25 MG; Start 04/23/17 at 09:00; Status Future Hold Hydralazine HCl (Apresoline) 10 mg Q4H PRN IV SBP>170; Start 04/22/17 at 22:00 Nitroglycerin (Nitroglycerin (Sl Tab) 0.4 Mg) 1 tab Q5M PRN SL ANGINA; Start at 18:00 Acetaminophen/ Hydrocodone Bitart ([place] (5/325)) 1 tab Q6H PRN PO PAIN LEVEL 4 -7 Last administered on 05/22/17 17:32; Admin Dose 1 TAB; Start 05/03/17 at 03: 30 Acetaminophen (Tylenol Liquid) 650 mg Q4H PRN GTB PAIN AND OR ELEVATED TEMP Last administered on 05/12/17 18:12; Admin Dose 650 MG; Start 05/03/17 at 03:30 Metoclopramide HCl (Reglan) 5 mg TID IV Last administered on 05/23/17 12:07; Admin Dose 5 MG; Start 05/05/17 at 13:00 Amlodipine Besylate (Norvasc) 5 mg DAILY GTB Last administered on 05/23/17 09: 19; Admin Dose 5 MG; Start 05/07/17 at 09:00 Zinc Acetate/ Diphenhydramine (Benadryl 2% Cr) 1 applic Q8 PRN TOP ITCHING Last administered on 05/18/17 03:31; Admin Dose 1 APPLIC; Start 05/07/17 at 11: 00 Lansoprazole (Prevacid) 30 mg BID@18 GTB Last administered on 05/23/17 06: 01; Admin Dose 30 MG; Start 05/08/17 at 18:00 Clonidine HCl (Catapres-Tts 1 Patch) 1 patch Q7D TRANSDERM Last administered on 05/22/17 15:08; Admin Dose 1 PATCH; Start 05/08/17 at 15:00 Epoetin Taqueria (Epogen (Esrd)) 2,000 units MoWeFr@17 SC Last administered on 05/21 17:49; Admin Dose 2,000 UNITS; Start 05/17/17 at 17:00 Alprazolam (Xanax) 0.5 mg Q6H PRN JT ANXIETY Last administered on 05/23/17 09: 20; Admin Dose 0.5 MG; Start 05/19/17 at 18:30 Hydralazine HCl (Apresoline) 50 mg Q6H PRN GTB ABOVE 160; Start 05/23/17 at 12: 00 LESLI SHEA May 23, 2017 13:12
[2017-05-23] MEDS: BISACODYL 10 MG SUPP PR SCH (17:23)
[2017-05-23 20:05] VITALS: BP 158/73; RESP 18
[2017-05-23] MEDS: INSULIN GLARGINE [LANtus] 3 ML PEN SC SCH (20:18)
[2017-05-24] MEDS: ALBUTEROL/IPRATROPIUM (NEB) 3 ML AMP HHN SCH ×4 (01:13→19:41)
[2017-05-24 02:13] VITALS: BP 136/64; RESP 18
[2017-05-24] MEDS: LANSOPRAZOLE 30 MG CAP GTB SCH ×2 (05:14→17:03)
[2017-05-24 05:16] LABS: BASOPHIL # 0.1 10^3/ul (0.0-0.1); BASOPHILS % 0.8 % (0.0-2.0); EOSINOPHILS # 1.2 10^3/ul (0.0-0.5); HEMATOCRIT 26.3 % (42.0-52.0); HEMOGLOBIN 7.9 g/dl (14.0-18.0); LYMPHOCYTES % 18.7 % (15.0-51.0); MEAN CORPUSCULAR HEMOGLOBIN 28.2 pg (29.0-33.0); MEAN CORPUSCULAR VOLUME 93.9 fl (82.0-101.0); MEAN PLATELET VOLUME 12.5 fl (7.4-10.4); MONOCYTE # 0.9 10^3/ul (0.3-0.9); MONOCYTES % 8.1 % (0.0-11.0); NEUTROPHIL # 6.4 10^3/ul (1.6-7.5); NEUTROPHILS % 60.8 % (39.0-77.0); PLATELET COUNT 231 10^3/UL (140-415); RED CELL DISTRIBUTION WIDTH 20.5 % (11.5-14.5); WHITE BLOOD COUNT 10.6 10^3/ul (4.8-10.8)
[2017-05-24] MEDS: Insulin NOVOLOG SS MILD Algorithm (NPO/TPN/ENTERAL FEEDS) SC SCH ×2 (05:16→12:03)
[2017-05-24 05:34] LABS: CALCIUM 8.8 mg/dl (8.4-10.2); CREATININE 2.41 mg/dl (0.61-1.24); POTASSIUM 4.7 mmol/L (3.5-5.1)
[2017-05-24 07:56] VITALS: BP 141/66; RESP 20
[2017-05-24] MEDS: AMLODIPINE 5 MG TAB GTB SCH ×2 (09:16→21:48)
[2017-05-24] MEDS: MULTIVITAMINS THERAPEUTIC TAB GTB SCH (09:16)
[2017-05-24] MEDS: METOCLOPRAMIDE 10 MG INJ IV SCH ×2 (09:17→12:02)
--- NOTE | 2017-05-24 11:24 | CONS ---
Date/Time of Note Date/Time of Note DATE: 05/24/17 TIME: 11:07 Assessment/Plan Assessment/Plan Chief Complaint/Hosp Course IMP: 1.HTN-elevated 2.H/O PAF-Remains in SR at this time by exam 3.renal failure 4.dysphagia 5. AMS 6. Heart [id number]-vhcdbf HR.improved with holding BB overall some intermittent recurrence when on Tele still 7. Chest pain-resolved/negative troponin/no change on serial ecg 8. Occasional PVC's-when on tele 9. CHF-diastolic acute on chronic 10.UTI 11.anemia REcc: -Now on med-surg -serial ecg's to document rhythm -Continue clondine TTS and norvasc at increased dose and f/u BP control closely -Continue to Hold BB given wenkebach -Follow volume status closely with HD today -HD for volume removal -Follow MS kam Problems: Consultation Date/Type/Reason Admit Date/Time Apr 17, 2017 at 16:39 Initial Consult Date 04/18/17 Type of Consultation: cardiology Reason for Consultation HTN/PAF Referring Provider: PORTIA OLIVER MD Exam/Review of Systems Vital Signs Vitals Vital Signs Date Time Temp Pulse Resp B/P Pulse Ox O2 Delivery O2 Flow Rate FiO2 05/24/17 08:10 74 16 97 21 05/24/17 07:56 98.3 141/66 05/22/17 19:44 Room Air Intake and Output 05/23/17 05/23/17 05/24/17 15:00 23:00 07:00 Intake Total 1060 ml 1220 ml Output Total 700 ml 500 ml Balance 360 ml 720 ml Exam Review of Systems: CONSTITUTIONAL: No fevers, chills. PULMONARY: No sob CARDIOVASCULAR: No chest pain/palpitations GASTROINTESTINAL: No nausea/vomiting. GENITOURINARY: No hematuria/dysuria. MUSCULOSKELETAL: No myagias/arthalgias. PSYCHIATRIC: The patient denies depression. NEUROLOGIC: lethargic Constitutional: alert Psych: no complaints Head: normocephalic ENMT: mucosa pink and moist Neck: jvd (cm water), supple Respiratory: diminished breath sounds (at bases/B) Cardiovascular: regular rate and rhythm Gastrointestinal: non-tender, soft Musculoskeletal: muscle tone (normal) Extremities: edema (none) Neurological: other (No focal deficits) Results Result Diagram: 05/24/17 0441 05/24/17 0441 Results 24 hrs Laboratory Tests Test 05/23/17 12:06 05/23/17 17:21 05/23/17 20:14 05/23/17 23:53 Bedside Glucose 167 179 176 197 Test 05/24/17 04:41 05/24/17 05:12 White Blood Count 10.6 Red Blood Count 2.80 L Hemoglobin 7.9 L Hematocrit 26.3 L Mean Corpuscular Volume 93.9 Mean Corpuscular Hemoglobin 28.2 L Mean Corpuscular Hemoglobin Concent 30.0 L Red Cell Distribution Width 20.5 H Platelet Count 231 Mean Platelet Volume 12.5 H Neutrophils % 60.8 Lymphocytes % 18.7 Monocytes % 8.1 Eosinophils % 11.0 H Basophils % 0.8 Nucleated Red Blood Cells % 0.0 Neutrophils # 6.4 Lymphocytes # 2.0 Monocytes # 0.9 Eosinophils # 1.2 H Basophils # 0.1 Nucleated Red Blood Cells # 0.0 Sodium Level 144 Potassium Level 4.7 Chloride Level 108 Carbon Dioxide Level 31 Anion Gap 10 Blood Urea Nitrogen 70 H Creatinine 2.41 H Glucose Level 152 Calcium Level 8.8 Bedside Glucose 166 Medications Medications Current Medications Acetaminophen (Tylenol Tab) 650 mg Q6H PRN GTB PAIN AND OR ELEVATED TEMP Last administered on 05/05/17 12:01; Admin Dose 650 MG; Start 04/17/17 at 18:00 Bisacodyl (Dulcolax Supp) 10 mg Q24H [place] Last administered on 05/23/17 17:23; Admin Dose 10 MG; Start 04/17/17 at 18:00 Diphenhydramine HCl (Benadryl) 25 mg Q6H PRN GTB ITCHING Last administered on 09:07; Admin Dose 25 MG; Start 04/17/17 at 18:00 Multivitamins Therapeutic (Theragran) 1 tab DAILY GTB Last administered on 05/24 09:16; Admin Dose 1 TAB; Start 04/18/17 at 09:00 Miscellaneous Information 1 ea NOTE XX ; Start 04/17/17 at 21:00 Glucose (Glutose) 15 gm Q15M PRN PO DECREASED GLUCOSE; Start 04/17/17 at 21:00 Glucose (Glutose) 22.5 gm Q15M PRN PO DECREASED GLUCOSE; Start 04/17/17 at 21: 00 Dextrose (D50w Syringe) 25 ml Q15M PRN IV DECREASED GLUCOSE Last administered on 05/18/17 20:46; Admin Dose 25 ML; Start 04/17/17 at 21:00 Dextrose (D50w Syringe) 50 ml Q15M PRN IV DECREASED GLUCOSE Last administered on 05/06/17 06:24; Admin Dose 50 ML; Start 04/17/17 at 21:00 Glucagon (Glucagen) 1 mg Q15M PRN IM DECREASED GLUCOSE; Start 04/17/17 at 21:00 Glucose (Glutose) 15 gm Q15M PRN BUCCAL DECREASED GLUCOSE; Start 04/17/17 at 21 :00 Ondansetron HCl (Zofran Inj) 4 mg Q6H PRN IV NAUSEA AND/OR VOMITING; Start at 00:30 Insulin Aspart (Novolog Insulin Pen) (Adult SC Insulin - Mild Algorithm)... Q6 [place] Last administered on 05/24/17 05:16; Admin Dose 1 UNIT; Start 04/20/17 at 00:00 Insulin Glargine (Lantus) 14 unit QHS [place] Last administered on 05/23/17 20:18; Admin Dose 14 UNIT; Start 04/20/17 at 21:00 Metoprolol Tartrate (Lopressor) 25 mg BID PO Last administered on 04/28/17 08: 14; Admin Dose 25 MG; Start 04/23/17 at 09:00; Status Future Hold Hydralazine HCl (Apresoline) 10 mg Q4H PRN IV SBP>170; Start 04/22/17 at 22:00 Nitroglycerin (Nitroglycerin (Sl Tab) 0.4 Mg) 1 tab Q5M PRN SL ANGINA; Start at 18:00 Acetaminophen/ Hydrocodone Bitart ([place] (5/325)) 1 tab Q6H PRN PO PAIN LEVEL 4 -7 Last administered on 05/22/17 17:32; Admin Dose 1 TAB; Start 05/03/17 at 03: 30 Acetaminophen (Tylenol Liquid) 650 mg Q4H PRN GTB PAIN AND OR ELEVATED TEMP Last administered on 05/12/17 18:12; Admin Dose 650 MG; Start 05/03/17 at 03:30 Metoclopramide HCl (Reglan) 5 mg TID IV Last administered on 05/24/17 09:17; Admin Dose 5 MG; Start 05/05/17 at 13:00 Zinc Acetate/ Diphenhydramine (Benadryl 2% Cr) 1 applic Q8 PRN TOP ITCHING Last administered on 05/18/17 03:31; Admin Dose 1 APPLIC; Start 05/07/17 at 11: 00 Lansoprazole (Prevacid) 30 mg BID@06,18 GTB Last administered on 05/24/17 05: 14; Admin Dose 30 MG; Start 05/08/17 at 18:00 Clonidine HCl (Catapres-Tts 1 Patch) 1 patch Q7D TRANSDERM Last administered on 05/22/17 15:08; Admin Dose 1 PATCH; Start 05/08/17 at 15:00 Epoetin Taqueria (Epogen (Esrd)) 2,000 units MoWeFr@17 SC Last administered on 05/21 17:49; Admin Dose 2,000 UNITS; Start 05/17/17 at 17:00 Alprazolam (Xanax) 0.5 mg Q6H PRN JT ANXIETY Last administered on 05/23/17 09: 20; Admin Dose 0.5 MG; Start 05/19/17 at 18:30 Hydralazine HCl (Apresoline) 50 mg Q6H PRN GTB ABOVE 160; Start 05/23/17 at 12: 00 Amlodipine Besylate (Norvasc) 5 mg BID GTB Last administered on 05/24/17 09:16 ; Admin Dose 5 MG; Start 05/23/17 at 21:00 LESLI SHEA May 24, 2017 11:11
[2017-05-24 15:47] VITALS: BP 156/70; RESP 20
--- NOTE | 2017-05-24 17:02 | PN ---
Date/Time of Note Date/Time of Note DATE: 05/24/17 TIME: 17:01 Assessment/Plan VTE Prophylaxis VTE Prophylaxis Intervention: heparin Lines/Catheters IV [facility] [place] [employer] line still needed: Yes Urinary Cath still in place: Yes Reason Cath still needed: urinary retention Assessment/Plan Chief Complaint/Hosp Course No acute events overnight, patient tolerating G-tube feeding well Assessment/Plan - Acute kidney injury on chronic kidney disease. Continue hemodialysis per renal. Dr. Cheema is following in nephrology consultation. - Protein calorie malnutrition, increase G-tube feeding according to conduit installer recommendations - Status post post urinary tract infection. - History of cerebrovascular accident - Diabetes mellitus. Continue Lantus and NovoLog. - Diastolic congestive heart failure. Continue to monitor intake and output. - Paroxysmal atrial fibrillation, currently in sinus rhythm. - Hypertension. Continue Norvasc. - Hyperlipidemia. Continue statin. - Urinary retention with Flores catheter. - Dysphagia, status post PEG placement - Anemia of chronic disease, continue Epogen. - network program manager for long-term facility placement Further recommendations based on clinical course. Plan of care discussed with Dr. Patel Problems: Exam/Review of Systems Vital Signs Vitals Vital Signs Date Time Temp Pulse Resp B/P Pulse Ox O2 Delivery O2 Flow Rate FiO2 05/24/17 15:47 98.7 78 20 156/70 99 05/24/17 14:04 21 05/22/17 19:44 Room Air Intake and Output 05/23/17 05/23/17 05/24/17 15:00 23:00 07:00 Intake Total 1060 ml 1220 ml Output Total 700 ml 500 ml Balance 360 ml 720 ml Exam Constitutional: alert Neck: supple Respiratory: normal air movement Cardiovascular: nl pulses Gastrointestinal: other, soft Extremities: normal pulses (Tube) Additional Comments Right IJ permacath Results Result Diagram: 05/24/17 0441 05/24/17 0441 Results 24 hrs Laboratory Tests Test 05/23/17 17:21 05/23/17 20:14 05/23/17 23:53 05/24/17 04:41 Bedside Glucose 179 176 197 White Blood Count 10.6 Red Blood Count 2.80 L Hemoglobin 7.9 L Hematocrit 26.3 L Mean Corpuscular Volume 93.9 Mean Corpuscular Hemoglobin 28.2 L Mean Corpuscular Hemoglobin Concent 30.0 L Red Cell Distribution Width 20.5 H Platelet Count 231 Mean Platelet Volume 12.5 H Neutrophils % 60.8 Lymphocytes % 18.7 Monocytes % 8.1 Eosinophils % 11.0 H Basophils % 0.8 Nucleated Red Blood Cells % 0.0 Neutrophils # 6.4 Lymphocytes # 2.0 Monocytes # 0.9 Eosinophils # 1.2 H Basophils # 0.1 Nucleated Red Blood Cells # 0.0 Sodium Level 144 Potassium Level 4.7 Chloride Level 108 Carbon Dioxide Level 31 Anion Gap 10 Blood Urea Nitrogen 70 H Creatinine 2.41 H Glucose Level 152 Calcium Level 8.8 Test 05/24/17 05:12 05/24/17 11:46 Bedside Glucose 166 154 Medications Medications Current Medications Acetaminophen (Tylenol Tab) 650 mg Q6H PRN GTB PAIN AND OR ELEVATED TEMP Last administered on 05/05/17 12:01; Admin Dose 650 MG; Start 04/17/17 at 18:00 Bisacodyl (Dulcolax Supp) 10 mg Q24H [place] Last administered on 05/23/17 17:23; Admin Dose 10 MG; Start 04/17/17 at 18:00 Diphenhydramine HCl (Benadryl) 25 mg Q6H PRN GTB ITCHING Last administered on 09:07; Admin Dose 25 MG; Start 04/17/17 at 18:00 Multivitamins Therapeutic (Theragran) 1 tab DAILY GTB Last administered on 05/24 09:16; Admin Dose 1 TAB; Start 04/18/17 at 09:00 Miscellaneous Information 1 ea NOTE XX ; Start 04/17/17 at 21:00 Glucose (Glutose) 15 gm Q15M PRN PO DECREASED GLUCOSE; Start 04/17/17 at 21:00 Glucose (Glutose) 22.5 gm Q15M PRN PO DECREASED GLUCOSE; Start 04/17/17 at 21: 00 Dextrose (D50w Syringe) 25 ml Q15M PRN IV DECREASED GLUCOSE Last administered on 05/18/17 20:46; Admin Dose 25 ML; Start 04/17/17 at 21:00 Dextrose (D50w Syringe) 50 ml Q15M PRN IV DECREASED GLUCOSE Last administered on 05/06/17 06:24; Admin Dose 50 ML; Start 04/17/17 at 21:00 Glucagon (Glucagen) 1 mg Q15M PRN IM DECREASED GLUCOSE; Start 04/17/17 at 21:00 Glucose (Glutose) 15 gm Q15M PRN BUCCAL DECREASED GLUCOSE; Start 04/17/17 at 21 :00 Ondansetron HCl (Zofran Inj) 4 mg Q6H PRN IV NAUSEA AND/OR VOMITING; Start at 00:30 Insulin Glargine (Lantus) 14 unit QHS SC Last administered on 05/23/17 20:18; Admin Dose 14 UNIT; Start 04/20/17 at 21:00 Metoprolol Tartrate (Lopressor) 25 mg BID PO Last administered on 04/28/17 08: 14; Admin Dose 25 MG; Start 04/23/17 at 09:00; Status Future Hold Hydralazine HCl (Apresoline) 10 mg Q4H PRN IV SBP>170; Start 04/22/17 at 22:00 Nitroglycerin (Nitroglycerin (Sl Tab) 0.4 Mg) 1 tab Q5M PRN SL ANGINA; Start at 18:00 Acetaminophen/ Hydrocodone Bitart ([place] (5/325)) 1 tab Q6H PRN PO PAIN LEVEL 4 -7 Last administered on 05/22/17 17:32; Admin Dose 1 TAB; Start 05/03/17 at 03: 30 Acetaminophen (Tylenol Liquid) 650 mg Q4H PRN GTB PAIN AND OR ELEVATED TEMP Last administered on 05/12/17 18:12; Admin Dose 650 MG; Start 05/03/17 at 03:30 Zinc Acetate/ Diphenhydramine (Benadryl 2% Cr) 1 applic Q8 PRN TOP ITCHING Last administered on 05/18/17 03:31; Admin Dose 1 APPLIC; Start 05/07/17 at 11: 00 Lansoprazole (Prevacid) 30 mg BID@06,18 GTB Last administered on 05/24/17 05: 14; Admin Dose 30 MG; Start 05/08/17 at 18:00 Clonidine HCl (Catapres-Tts 1 Patch) 1 patch Q7D TRANSDERM Last administered on 05/22/17 15:08; Admin Dose 1 PATCH; Start 05/08/17 at 15:00 Epoetin Taqueria (Epogen (Esrd)) 2,000 units MoWeFr@17 SC Last administered on 05/21 17:49; Admin Dose 2,000 UNITS; Start 05/17/17 at 17:00 Alprazolam (Xanax) 0.5 mg Q6H PRN JT ANXIETY Last administered on 05/23/17 09: 20; Admin Dose 0.5 MG; Start 05/19/17 at 18:30 Hydralazine HCl (Apresoline) 50 mg Q6H PRN GTB ABOVE 160; Start 05/23/17 at 12: 00 Amlodipine Besylate (Norvasc) 5 mg BID GTB Last administered on 05/24/17 09:16 ; Admin Dose 5 MG; Start 05/23/17 at 21:00 Metoclopramide HCl (Reglan) 5 mg TID PRN IV NAUSEA; Start 05/25/17 at 13:00 Insulin Aspart (Novolog Insulin Pen) (Adult SC Insulin - Mild Algorithm)... Q4 SC ; Start 05/24/17 at 17:00 GEOVANY IBARRA May 24, 2017 17:02
[2017-05-24] MEDS: EPOETIN 2000 UNITS/1 ML INJ (ESRD) SC SCH (17:03)
[2017-05-24] MEDS: BISACODYL 10 MG SUPP PR SCH (17:03)
[2017-05-24] MEDS: INSULIN ASPART [NOVOLOG] 3 ML PEN SC SCH ×2 (17:15→22:10)
[2017-05-24 19:54] VITALS: BP 129/61; RESP 19
[2017-05-24] MEDS: DIPHENHYDRAMINE 25 MG CAP GTB PRN (21:53)
[2017-05-24] MEDS: INSULIN GLARGINE [LANtus] 3 ML PEN SC SCH (22:11)
[2017-05-25] VITALS (12 sets, daily range): BP systolic 89–150; BP diastolic 53–74; PULSE 68–78; RESP 16–20
[2017-05-25] MEDS: INSULIN ASPART [NOVOLOG] 3 ML PEN SC SCH ×6 (01:32→21:15)
[2017-05-25] MEDS: ALBUTEROL/IPRATROPIUM (NEB) 3 ML AMP HHN SCH ×4 (02:18→19:46)
[2017-05-25] MEDS: LANSOPRAZOLE 30 MG CAP GTB SCH ×2 (05:43→17:02)
[2017-05-25] MEDS: DIPHENHYDRAMINE 25 MG CAP GTB PRN (05:49)
[2017-05-25] MEDS: AMLODIPINE 5 MG TAB GTB SCH ×3 (08:58→20:56)
[2017-05-25] MEDS: MULTIVITAMINS THERAPEUTIC TAB GTB SCH (08:58)
[2017-05-25] MEDS ORDERED: METOCLOPRAMIDE 10 MG INJ IV PRN (13:00)
--- NOTE | 2017-05-25 14:51 | CONS ---
Date/Time of Note Date/Time of Note DATE: 05/25/17 TIME: 14:49 Assessment/Plan Assessment/Plan Additional Assessment/Plan 1.HTN-somewhat labile today - HD NOW - probably 1L to be removed if BP allows. 2.H/O PAF-Remains in SR at this time - OFF TELE NOW - rate controlled 3.renal failure - renal team follows 4.dysphagia 5. AMS - more alert - stable - with agitioon now 6. Heart ftmjd-bjgepigbe-qfdsaw HR.improved with holding BB overall some intermittent recurrence - now rate stable 7. Chest pain-resolved/negative troponin/no change on serial ecg - no intervention planned 8. Occasional PVC's 9. CHF-diastolic CHRIONIC - good fluid status now - BETTER fluid status now 10.UTI 11.anemia Consultation Date/Type/Reason Admit Date/Time Apr 17, 2017 at 16:39 Initial Consult Date 04/18/17 Type of Consultation: RENAL Referring Provider: PORTIA OLIVER MD 24 HR Interval Summary Free Text/Dictation NO acute events - OFF Tele - HD now ROS: No fever, no chills, no nausea, no vomiting, no diarrhea/constipation No recent weight changes No chest pain, no PND, no orthopnea No dizziness, blurred vision No thirst, no heat or cold intolerance (per nurse) Exam/Review of Systems Vital Signs Vitals Vital Signs Date Time Temp Pulse Resp B/P Pulse Ox O2 Delivery O2 Flow Rate FiO2 05/25/17 14:40 73 05/25/17 14:40 16 05/25/17 14:31 96 21 05/25/17 07:48 98.1 141/67 05/22/17 19:44 Room Air Intake and Output 05/24/17 05/24/17 05/25/17 15:00 23:00 07:00 Intake Total 880 ml 960 ml Output Total 700 ml 800 ml Balance 180 ml 160 ml Exam General: WN/WD/NAD, AOx 0 HEENT: Unicetric/atraumatic/EOMI (does not follow commands) NECK: JVD elevated, no thyromegaly Lymph: no lymphadenopathy HEART: regular with no S3, II/ systolic murmur at apex LUNGS: Coarse sounds ABD: soft, NT, ND, +BS : Intact Neuro: non focal SKIN: chronic changes EXT: trace edema Results Result Diagram: 05/24/17 0441 05/24/17 0441 Results 24 hrs Laboratory Tests Test 05/24/17 17:04 05/24/17 22:07 05/25/17 01:28 05/25/17 05:09 Bedside Glucose 180 196 165 164 Test 05/25/17 08:53 05/25/17 12:57 Bedside Glucose 162 197 Medications Medications Current Medications Acetaminophen (Tylenol Tab) 650 mg Q6H PRN GTB PAIN AND OR ELEVATED TEMP Last administered on 05/05/17 12:01; Admin Dose 650 MG; Start 04/17/17 at 18:00 Bisacodyl (Dulcolax Supp) 10 mg Q24H [place] Last administered on 05/24/17 17:03; Admin Dose 10 MG; Start 04/17/17 at 18:00 Diphenhydramine HCl (Benadryl) 25 mg Q6H PRN GTB ITCHING Last administered on 05/25/17 05:49; Admin Dose 25 MG; Start 04/17/17 at 18:00 Multivitamins Therapeutic (Theragran) 1 tab DAILY GTB Last administered on 05/25 08:58; Admin Dose 1 TAB; Start 04/18/17 at 09:00 Miscellaneous Information 1 ea NOTE XX ; Start 04/17/17 at 21:00 Glucose (Glutose) 15 gm Q15M PRN PO DECREASED GLUCOSE; Start 04/17/17 at 21:00 Glucose (Glutose) 22.5 gm Q15M PRN PO DECREASED GLUCOSE; Start 04/17/17 at 21: 00 Dextrose (D50w Syringe) 25 ml Q15M PRN IV DECREASED GLUCOSE Last administered on 05/18/17 20:46; Admin Dose 25 ML; Start 04/17/17 at 21:00 Dextrose (D50w Syringe) 50 ml Q15M PRN IV DECREASED GLUCOSE Last administered on 05/06/17 06:24; Admin Dose 50 ML; Start 04/17/17 at 21:00 Glucagon (Glucagen) 1 mg Q15M PRN IM DECREASED GLUCOSE; Start 04/17/17 at 21:00 Glucose (Glutose) 15 gm Q15M PRN BUCCAL DECREASED GLUCOSE; Start 04/17/17 at 21 :00 Ondansetron HCl (Zofran Inj) 4 mg Q6H PRN IV NAUSEA AND/OR VOMITING; Start at 00:30 Insulin Glargine (Lantus) 14 unit QHS SC Last administered on 05/24/17 22:11; Admin Dose 14 UNIT; Start 04/20/17 at 21:00 Metoprolol Tartrate (Lopressor) 25 mg BID PO Last administered on 04/28/17 08: 14; Admin Dose 25 MG; Start 04/23/17 at 09:00; Status Future Hold Hydralazine HCl (Apresoline) 10 mg Q4H PRN IV SBP>170; Start 04/22/17 at 22:00 Nitroglycerin (Nitroglycerin (Sl Tab) 0.4 Mg) 1 tab Q5M PRN SL ANGINA; Start at 18:00 Acetaminophen/ Hydrocodone Bitart ([place] (5/325)) 1 tab Q6H PRN PO PAIN LEVEL 4 -7 Last administered on 05/22/17 17:32; Admin Dose 1 TAB; Start 05/03/17 at 03: 30 Acetaminophen (Tylenol Liquid) 650 mg Q4H PRN GTB PAIN AND OR ELEVATED TEMP Last administered on 05/12/17 18:12; Admin Dose 650 MG; Start 05/03/17 at 03:30 Zinc Acetate/ Diphenhydramine (Benadryl 2% Cr) 1 applic Q8 PRN TOP ITCHING Last administered on 05/18/17 03:31; Admin Dose 1 APPLIC; Start 05/07/17 at 11: 00 Lansoprazole (Prevacid) 30 mg BID@06,18 GTB Last administered on 05/25/17 05: 43; Admin Dose 30 MG; Start 05/08/17 at 18:00 Clonidine HCl (Catapres-Tts 1 Patch) 1 patch Q7D TRANSDERM Last administered on 05/22/17 15:08; Admin Dose 1 PATCH; Start 05/08/17 at 15:00 Epoetin Taqueria (Epogen (Esrd)) 2,000 units MoWeFr@17 SC Last administered on 05/24 17:03; Admin Dose 2,000 UNITS; Start 05/17/17 at 17:00 Alprazolam (Xanax) 0.5 mg Q6H PRN JT ANXIETY Last administered on 05/23/17 09: 20; Admin Dose 0.5 MG; Start 05/19/17 at 18:30 Hydralazine HCl (Apresoline) 50 mg Q6H PRN GTB ABOVE 160; Start 05/23/17 at 12: 00 Amlodipine Besylate (Norvasc) 5 mg BID GTB Last administered on 05/24/17 21:48 ; Admin Dose 5 MG; Start 05/23/17 at 21:00 Metoclopramide HCl (Reglan) 5 mg TID PRN IV NAUSEA; Start 05/25/17 at 13:00 Insulin Aspart (Novolog Insulin Pen) (Adult SC Insulin - Mild Algorithm)... Q4 [place] Last administered on 05/25/17 13:03; Admin Dose 2 UNIT; Start 05/24/17 at 17:00 HERBERTH ZUNIGA MD May 25, 2017 14:51
--- NOTE | 2017-05-25 16:02 | PN ---
Date/Time of Note Date/Time of Note DATE: 05/25/17 TIME: 15:58 Assessment/Plan VTE Prophylaxis VTE Prophylaxis Intervention: SCD's Lines/Catheters IV Catheter Type (from Nrs): PERMACATH Urinary Cath still in place: Yes Reason Cath still needed: urinary retention Assessment/Plan Chief Complaint/Hosp Course Patient remains hemodynamically stable, impulsive times, tried to pull on lines , continue one-to-one sitter. Will increase Lantus to 17 units for better glycemic control. Unfortunately patient is not a good candidate for acute rehab , evaluate for alf facility placement. Assessment/Plan - Acute kidney injury on chronic kidney disease. Continue hemodialysis per renal. Dr. Cheema is following in nephrology consultation. - Protein calorie malnutrition, increase G-tube feeding according to multi township assessor recommendations - Status post post urinary tract infection. - History of cerebrovascular accident - Diabetes mellitus. Continue Lantus and NovoLog. - Diastolic congestive heart failure. Continue to monitor intake and output. - Paroxysmal atrial fibrillation, currently in sinus rhythm. - Hypertension. Continue Norvasc. - Hyperlipidemia. Continue statin. - Urinary retention with Flores catheter. - Dysphagia, status post PEG placement - Anemia of chronic disease, continue Epogen. - manager pathology for alf facility placement Further recommendations based on clinical course. Plan of care discussed with Dr. Patel Problems: Exam/Review of Systems Vital Signs Vitals Vital Signs Date Time Temp Pulse Resp B/P Pulse Ox O2 Delivery O2 Flow Rate FiO2 05/25/17 14:40 73 05/25/17 14:40 16 05/25/17 14:31 96 21 05/25/17 14:00 97.5 107/55 05/22/17 19:44 Room Air Intake and Output 05/24/17 05/24/17 05/25/17 15:00 23:00 07:00 Intake Total 880 ml 960 ml Output Total 700 ml 800 ml Balance 180 ml 160 ml Exam Constitutional: alert Neck: supple Respiratory: normal air movement Cardiovascular: nl pulses Gastrointestinal: other, soft Extremities: normal pulses (Tube) Additional Comments Right IJ permacath Results Result Diagram: 05/24/17 0441 05/24/17440 Results 24 hrs Laboratory Tests Test 05/24/17 17:04 05/24/17 22:07 05/25/17 01:28 05/25/17 05:09 Bedside Glucose 180 196 165 164 Test 05/25/17 08:53 05/25/17 12:57 Bedside Glucose 162 197 Medications Medications Current Medications Acetaminophen (Tylenol Tab) 650 mg Q6H PRN GTB PAIN AND OR ELEVATED TEMP Last administered on 05/05/17 12:01; Admin Dose 650 MG; Start 04/17/17 at 18:00 Bisacodyl (Dulcolax Supp) 10 mg Q24H [place] Last administered on 05/24/17 17:03; Admin Dose 10 MG; Start 04/17/17 at 18:00 Diphenhydramine HCl (Benadryl) 25 mg Q6H PRN GTB ITCHING Last administered on 05/25/17 05:49; Admin Dose 25 MG; Start 04/17/17 at 18:00 Multivitamins Therapeutic (Theragran) 1 tab DAILY GTB Last administered on 05/25 08:58; Admin Dose 1 TAB; Start 04/18/17 at 09:00 Miscellaneous Information 1 ea NOTE XX ; Start 04/17/17 at 21:00 Glucose (Glutose) 15 gm Q15M PRN PO DECREASED GLUCOSE; Start 04/17/17 at 21:00 Glucose (Glutose) 22.5 gm Q15M PRN PO DECREASED GLUCOSE; Start 04/17/17 at 21: 00 Dextrose (D50w Syringe) 25 ml Q15M PRN IV DECREASED GLUCOSE Last administered on 05/18/17 20:46; Admin Dose 25 ML; Start 04/17/17 at 21:00 Dextrose (D50w Syringe) 50 ml Q15M PRN IV DECREASED GLUCOSE Last administered on 05/06/17 06:24; Admin Dose 50 ML; Start 04/17/17 at 21:00 Glucagon (Glucagen) 1 mg Q15M PRN IM DECREASED GLUCOSE; Start 04/17/17 at 21:00 Glucose (Glutose) 15 gm Q15M PRN BUCCAL DECREASED GLUCOSE; Start 04/17/17 at 21 :00 Ondansetron HCl (Zofran Inj) 4 mg Q6H PRN IV NAUSEA AND/OR VOMITING; Start at 00:30 Insulin Glargine (Lantus) 14 unit QHS SC Last administered on 05/24/17 22:11; Admin Dose 14 UNIT; Start 04/20/17 at 21:00 Metoprolol Tartrate (Lopressor) 25 mg BID PO Last administered on 04/28/17 08: 14; Admin Dose 25 MG; Start 04/23/17 at 09:00; Status Future Hold Hydralazine HCl (Apresoline) 10 mg Q4H PRN IV SBP>170; Start 04/22/17 at 22:00 Nitroglycerin (Nitroglycerin (Sl Tab) 0.4 Mg) 1 tab Q5M PRN SL ANGINA; Start at 18:00 Acetaminophen/ Hydrocodone Bitart ([place] (5/325)) 1 tab Q6H PRN PO PAIN LEVEL 4 -7 Last administered on 05/22/17 17:32; Admin Dose 1 TAB; Start 05/03/17 at 03: 30 Acetaminophen (Tylenol Liquid) 650 mg Q4H PRN GTB PAIN AND OR ELEVATED TEMP Last administered on 05/12/17 18:12; Admin Dose 650 MG; Start 05/03/17 at 03:30 Zinc Acetate/ Diphenhydramine (Benadryl 2% Cr) 1 applic Q8 PRN TOP ITCHING Last administered on 05/18/17 03:31; Admin Dose 1 APPLIC; Start 05/07/17 at 11: 00 Lansoprazole (Prevacid) 30 mg BID@06,18 GTB Last administered on 05/25/17 05: 43; Admin Dose 30 MG; Start 05/08/17 at 18:00 Clonidine HCl (Catapres-Tts 1 Patch) 1 patch Q7D TRANSDERM Last administered on 05/22/17 15:08; Admin Dose 1 PATCH; Start 05/08/17 at 15:00 Epoetin Taqueria (Epogen (Esrd)) 2,000 units MoWeFr@17 SC Last administered on 05/24 17:03; Admin Dose 2,000 UNITS; Start 05/17/17 at 17:00 Alprazolam (Xanax) 0.5 mg Q6H PRN JT ANXIETY Last administered on 05/23/17 09: 20; Admin Dose 0.5 MG; Start 05/19/17 at 18:30 Hydralazine HCl (Apresoline) 50 mg Q6H PRN GTB ABOVE 160; Start 05/23/17 at 12: 00 Amlodipine Besylate (Norvasc) 5 mg BID GTB Last administered on 05/24/17 21:48 ; Admin Dose 5 MG; Start 05/23/17 at 21:00 Metoclopramide HCl (Reglan) 5 mg TID PRN IV NAUSEA; Start 05/25/17 at 13:00 Insulin Aspart (Novolog Insulin Pen) (Adult SC Insulin - Mild Algorithm)... Q4 SC Last administered on 05/25/17 13:03; Admin Dose 2 UNIT; Start 05/24/17 at 17:00 GEOVANY IBARRA May 25, 2017 16:02
[2017-05-25] MEDS: BISACODYL 10 MG SUPP PR SCH (17:02)
--- NOTE | 2017-05-25 19:05 | CONS ---
Date/Time of Note Date/Time of Note DATE: 05/25/17 TIME: 19:04 Assessment/Plan Assessment/Plan Chief Complaint/Hosp Course 1 CKD5 2.Hypernatremia HX 3.HTN 4 Ecoli UTI HX 5 Sepsis BETTER 6 Chronic AfibHX 7 CVA s/p G tube placement 8 Renal cyst 9 uremia 10 pul edemaBETTER plan continue HD FOR NOW NEED SNF PLACEMENT Problems: Consultation Date/Type/Reason Admit Date/Time Apr 17, 2017 at 16:39 Type of Consultation: RENAL Referring Provider: PORTIA OLIVER MD 24 HR Interval Summary Constitutional: no complaints, No diaphoresis, No febrile Exam/Review of Systems Vital Signs Vitals Vital Signs Date Time Temp Pulse Resp B/P Pulse Ox O2 Delivery O2 Flow Rate FiO2 05/25/17 14:40 73 05/25/17 14:40 16 05/25/17 14:31 96 21 05/25/17 14:00 97.5 107/55 05/22/17 19:44 Room Air Intake and Output 05/24/17 05/24/17 05/25/17 15:00 23:00 07:00 Intake Total 880 ml 960 ml Output Total 700 ml 900 ml Balance 180 ml 60 ml Exam Cardiovascular: regular rate and rhythm Gastrointestinal: soft Musculoskeletal: nl extremities to inspection Extremities: normal pulses Results Result Diagram: 05/24/17 0441 05/24/17 0441 Results 24 hrs Laboratory Tests Test 05/24/17 22:07 05/25/17 01:28 05/25/17 05:09 05/25/17 08:53 Bedside Glucose 196 165 164 162 Test 05/25/17 12:57 05/25/17 16:51 Bedside Glucose 197 213 Medications Medications Current Medications Acetaminophen (Tylenol Tab) 650 mg Q6H PRN GTB PAIN AND OR ELEVATED TEMP Last administered on 05/05/17 12:01; Admin Dose 650 MG; Start 04/17/17 at 18:00 Bisacodyl (Dulcolax Supp) 10 mg Q24H [place] Last administered on 05/25/17 17:02; Admin Dose 10 MG; Start 04/17/17 at 18:00 Diphenhydramine HCl (Benadryl) 25 mg Q6H PRN GTB ITCHING Last administered on 05/25/17 05:49; Admin Dose 25 MG; Start 04/17/17 at 18:00 Multivitamins Therapeutic (Theragran) 1 tab DAILY GTB Last administered on 05/25 08:58; Admin Dose 1 TAB; Start 04/18/17 at 09:00 Miscellaneous Information 1 ea NOTE XX ; Start 04/17/17 at 21:00 Glucose (Glutose) 15 gm Q15M PRN PO DECREASED GLUCOSE; Start 04/17/17 at 21:00 Glucose (Glutose) 22.5 gm Q15M PRN PO DECREASED GLUCOSE; Start 04/17/17 at 21: 00 Dextrose (D50w Syringe) 25 ml Q15M PRN IV DECREASED GLUCOSE Last administered on 05/18/17 20:46; Admin Dose 25 ML; Start 04/17/17 at 21:00 Dextrose (D50w Syringe) 50 ml Q15M PRN IV DECREASED GLUCOSE Last administered on 05/06/17 06:24; Admin Dose 50 ML; Start 04/17/17 at 21:00 Glucagon (Glucagen) 1 mg Q15M PRN IM DECREASED GLUCOSE; Start 04/17/17 at 21:00 Glucose (Glutose) 15 gm Q15M PRN BUCCAL DECREASED GLUCOSE; Start 04/17/17 at 21 :00 Ondansetron HCl (Zofran Inj) 4 mg Q6H PRN IV NAUSEA AND/OR VOMITING; Start at 00:30 Metoprolol Tartrate (Lopressor) 25 mg BID PO Last administered on 04/28/17 08: 14; Admin Dose 25 MG; Start 04/23/17 at 09:00; Status Future Hold Hydralazine HCl (Apresoline) 10 mg Q4H PRN IV SBP>170; Start 04/22/17 at 22:00 Nitroglycerin (Nitroglycerin (Sl Tab) 0.4 Mg) 1 tab Q5M PRN SL ANGINA; Start at 18:00 Acetaminophen/ Hydrocodone Bitart ([place] (5/325)) 1 tab Q6H PRN PO PAIN LEVEL 4 -7 Last administered on 05/22/17 17:32; Admin Dose 1 TAB; Start 05/03/17 at 03: 30 Acetaminophen (Tylenol Liquid) 650 mg Q4H PRN GTB PAIN AND OR ELEVATED TEMP Last administered on 05/12/17 18:12; Admin Dose 650 MG; Start 05/03/17 at 03:30 Zinc Acetate/ Diphenhydramine (Benadryl 2% Cr) 1 applic Q8 PRN TOP ITCHING Last administered on 05/18/17 03:31; Admin Dose 1 APPLIC; Start 05/07/17 at 11: 00 Lansoprazole (Prevacid) 30 mg BID@06,18 GTB Last administered on 05/25/17 17: 02; Admin Dose 30 MG; Start 05/08/17 at 18:00 Clonidine HCl (Catapres-Tts 1 Patch) 1 patch Q7D TRANSDERM Last administered on 05/22/17 15:08; Admin Dose 1 PATCH; Start 05/08/17 at 15:00 Epoetin Taqueria (Epogen (Esrd)) 2,000 units MoWeFr@17 SC Last administered on 05/24 17:03; Admin Dose 2,000 UNITS; Start 05/17/17 at 17:00 Alprazolam (Xanax) 0.5 mg Q6H PRN JT ANXIETY Last administered on 05/23/17 09: 20; Admin Dose 0.5 MG; Start 05/19/17 at 18:30 Hydralazine HCl (Apresoline) 50 mg Q6H PRN GTB ABOVE 160; Start 05/23/17 at 12: 00 Amlodipine Besylate (Norvasc) 5 mg BID GTB Last administered on 05/24/17 21:48 ; Admin Dose 5 MG; Start 05/23/17 at 21:00 Metoclopramide HCl (Reglan) 5 mg TID PRN IV NAUSEA; Start 05/25/17 at 13:00 Insulin Aspart (Novolog Insulin Pen) (Adult SC Insulin - Mild Algorithm)... Q4 SC Last administered on 05/25/17 17:04; Admin Dose 2 UNIT; Start 05/24/17 at 17:00 Insulin Glargine (Lantus) 17 unit QHS SC ; Start 05/25/17 at 21:00 ABBY RAMOS MD May 25, 2017 19:05
[2017-05-25] MEDS: INSULIN GLARGINE [LANtus] 3 ML PEN SC SCH (21:14)
[2017-05-26] MEDS: INSULIN ASPART [NOVOLOG] 3 ML PEN SC SCH ×6 (01:04→21:00)
[2017-05-26] MEDS: ALBUTEROL/IPRATROPIUM (NEB) 3 ML AMP HHN SCH ×4 (01:33→19:41)
[2017-05-26 02:11] VITALS: BP 157/71; RESP 19
[2017-05-26] MEDS: LANSOPRAZOLE 30 MG CAP GTB SCH ×2 (05:16→17:43)
[2017-05-26] MEDS: DIPHENHYDRAMINE 25 MG CAP GTB PRN ×3 (05:16→21:22)
[2017-05-26 05:24] LABS: BASOPHIL # 0.1 10^3/ul (0.0-0.1); BASOPHILS % 0.7 % (0.0-2.0); EOSINOPHILS # 1.4 10^3/ul (0.0-0.5); EOSINOPHILS % 11.2 % (0.0-7.0); HEMATOCRIT 27.1 % (42.0-52.0); HEMOGLOBIN 8.4 g/dl (14.0-18.0); LYMPHOCYTES # 2.2 10^3/ul (0.8-2.9); LYMPHOCYTES % 17.9 % (15.0-51.0); MEAN CORPUSCULAR HEMOGLOBIN 29.9 pg (29.0-33.0); MEAN CORPUSCULAR VOLUME 96.4 fl (82.0-101.0); MEAN PLATELET VOLUME 12.5 fl (7.4-10.4); MONOCYTE # 0.9 10^3/ul (0.3-0.9); MONOCYTES % 7.5 % (0.0-11.0); NEUTROPHIL # 7.7 10^3/ul (1.6-7.5); NEUTROPHILS % 62.2 % (39.0-77.0); PLATELET COUNT 186 10^3/UL (140-415); RED BLOOD COUNT 2.81 10^6/ul (4.70-6.10); RED CELL DISTRIBUTION WIDTH 20.4 % (11.5-14.5); WHITE BLOOD COUNT 12.4 10^3/ul (4.8-10.8)
[2017-05-26 05:55] LABS: CALCIUM 8.6 mg/dl (8.4-10.2); CREATININE 2.14 mg/dl (0.61-1.24); POTASSIUM 5.6 mmol/L (3.5-5.1)
[2017-05-26] MEDS: MULTIVITAMINS THERAPEUTIC TAB GTB SCH (08:47)
[2017-05-26] MEDS: AMLODIPINE 5 MG TAB GTB SCH ×2 (08:48→21:23)
[2017-05-26] MEDS ORDERED: NA POLYST SULFON 15 GM/60 ML BTL GTB ONE (09:30)
--- NOTE | 2017-05-26 12:29 | CONS ---
Date/Time of Note Date/Time of Note DATE: 05/26/17 TIME: 12:28 Assessment/Plan Assessment/Plan Chief Complaint/Hosp Course 1 CKD5 2.Hypernatremia HX 3.HTN 4 Ecoli UTI HX 5 Sepsis BETTER 6 Chronic AfibHX 7 CVA s/p G tube placement 8 Renal cyst 9 uremia 10 pul edemaBETTER plan continue HD FOR NOW NEED SNF PLACEMENT Problems: Consultation Date/Type/Reason Admit Date/Time Apr 17, 2017 at 16:39 Type of Consultation: RENAL Referring Provider: PORTIA OLIVER MD 24 HR Interval Summary Constitutional: improved Exam/Review of Systems Vital Signs Vitals Vital Signs Date Time Temp Pulse Resp B/P Pulse Ox O2 Delivery O2 Flow Rate FiO2 05/26/17 09:03 70 18 98 21 05/26/17 02:11 97.9 157/71 05/22/17 19:44 Room Air Intake and Output 05/25/17 05/25/17 05/26/17 15:00 23:00 07:00 Intake Total 700 ml 1160 ml 1100 ml Output Total 1900 ml 550 ml 350 ml Balance -1200 ml 610 ml 750 ml Exam Neck: supple Respiratory: clear to auscultation Cardiovascular: regular rate and rhythm Gastrointestinal: soft Musculoskeletal: nl extremities to inspection Extremities: normal pulses Results Result Diagram: 05/26/17 0453 05/26/17 0453 Results 24 hrs Laboratory Tests Test 05/25/17 12:57 05/25/17 16:51 05/25/17 20:58 05/26/17 01:01 Bedside Glucose 197 213 142 158 Test 05/26/17 04:53 05/26/17 05:12 05/26/17 08:43 White Blood Count 12.4 H Red Blood Count 2.81 L Hemoglobin 8.4 L Hematocrit 27.1 L Mean Corpuscular Volume 96.4 Mean Corpuscular Hemoglobin 29.9 Mean Corpuscular Hemoglobin Concent 31.0 L Red Cell Distribution Width 20.4 H Platelet Count 186 Mean Platelet Volume 12.5 H Neutrophils % 62.2 Lymphocytes % 17.9 Monocytes % 7.5 Eosinophils % 11.2 H Basophils % 0.7 Nucleated Red Blood Cells % 0.0 Neutrophils # 7.7 H Lymphocytes # 2.2 Monocytes # 0.9 Eosinophils # 1.4 H Basophils # 0.1 Nucleated Red Blood Cells # 0.0 Sodium Level 139 Potassium Level 5.6 H Chloride Level 103 Carbon Dioxide Level 33 H Anion Gap 9 Blood Urea Nitrogen 63 H Creatinine 2.14 H Glucose Level 135 Calcium Level 8.6 Bedside Glucose 161 118 Medications Medications Current Medications Acetaminophen (Tylenol Tab) 650 mg Q6H PRN GTB PAIN AND OR ELEVATED TEMP Last administered on 05/05/17 12:01; Admin Dose 650 MG; Start 04/17/17 at 18:00 Bisacodyl (Dulcolax Supp) 10 mg Q24H [place] Last administered on 05/25/17 17:02; Admin Dose 10 MG; Start 04/17/17 at 18:00 Diphenhydramine HCl (Benadryl) 25 mg Q6H PRN GTB ITCHING Last administered on 05/26/17 05:16; Admin Dose 25 MG; Start 04/17/17 at 18:00 Multivitamins Therapeutic (Theragran) 1 tab DAILY GTB Last administered on 05/26 08:47; Admin Dose 1 TAB; Start 04/18/17 at 09:00 Miscellaneous Information 1 ea NOTE XX ; Start 04/17/17 at 21:00 Glucose (Glutose) 15 gm Q15M PRN PO DECREASED GLUCOSE; Start 04/17/17 at 21:00 Glucose (Glutose) 22.5 gm Q15M PRN PO DECREASED GLUCOSE; Start 04/17/17 at 21: 00 Dextrose (D50w Syringe) 25 ml Q15M PRN IV DECREASED GLUCOSE Last administered on 05/18/17 20:46; Admin Dose 25 ML; Start 04/17/17 at 21:00 Dextrose (D50w Syringe) 50 ml Q15M PRN IV DECREASED GLUCOSE Last administered on 05/06/17 06:24; Admin Dose 50 ML; Start 04/17/17 at 21:00 Glucagon (Glucagen) 1 mg Q15M PRN IM DECREASED GLUCOSE; Start 04/17/17 at 21:00 Glucose (Glutose) 15 gm Q15M PRN BUCCAL DECREASED GLUCOSE; Start 04/17/17 at 21 :00 Ondansetron HCl (Zofran Inj) 4 mg Q6H PRN IV NAUSEA AND/OR VOMITING; Start at 00:30 Metoprolol Tartrate (Lopressor) 25 mg BID PO Last administered on 04/28/17 08: 14; Admin Dose 25 MG; Start 04/23/17 at 09:00; Status Future Hold Hydralazine HCl (Apresoline) 10 mg Q4H PRN IV SBP>170; Start 04/22/17 at 22:00 Nitroglycerin (Nitroglycerin (Sl Tab) 0.4 Mg) 1 tab Q5M PRN SL ANGINA; Start at 18:00 Acetaminophen/ Hydrocodone Bitart ([place] (5/325)) 1 tab Q6H PRN PO PAIN LEVEL 4 -7 Last administered on 05/22/17 17:32; Admin Dose 1 TAB; Start 05/03/17 at 03: 30 Acetaminophen (Tylenol Liquid) 650 mg Q4H PRN GTB PAIN AND OR ELEVATED TEMP Last administered on 05/12/17 18:12; Admin Dose 650 MG; Start 05/03/17 at 03:30 Zinc Acetate/ Diphenhydramine (Benadryl 2% Cr) 1 applic Q8 PRN TOP ITCHING Last administered on 05/18/17 03:31; Admin Dose 1 APPLIC; Start 05/07/17 at 11: 00 Lansoprazole (Prevacid) 30 mg BID@06,18 GTB Last administered on 05/26/17 05: 16; Admin Dose 30 MG; Start 05/08/17 at 18:00 Clonidine HCl (Catapres-Tts 1 Patch) 1 patch Q7D TRANSDERM Last administered on 05/22/17 15:08; Admin Dose 1 PATCH; Start 05/08/17 at 15:00 Epoetin Taqueria (Epogen (Esrd)) 2,000 units MoWeFr@17 SC Last administered on 05/24 17:03; Admin Dose 2,000 UNITS; Start 05/17/17 at 17:00 Alprazolam (Xanax) 0.5 mg Q6H PRN JT ANXIETY Last administered on 05/23/17 09: 20; Admin Dose 0.5 MG; Start 05/19/17 at 18:30 Hydralazine HCl (Apresoline) 50 mg Q6H PRN GTB ABOVE 160; Start 05/23/17 at 12: 00 Amlodipine Besylate (Norvasc) 5 mg BID GTB Last administered on 05/26/17 08:48 ; Admin Dose 5 MG; Start 05/23/17 at 21:00 Metoclopramide HCl (Reglan) 5 mg TID PRN IV NAUSEA; Start 05/25/17 at 13:00 Insulin Aspart (Novolog Insulin Pen) (Adult SC Insulin - Mild Algorithm)... Q4 SC Last administered on 05/26/17 05:32; Admin Dose 1 UNIT; Start 05/24/17 at 17:00 Insulin Glargine (Lantus) 17 unit QHS SC Last administered on 05/25/17 21:14; Admin Dose 17 UNIT; Start 05/25/17 at 21:00 ABBY RAMOS MD May 26, 2017 12:29
--- NOTE | 2017-05-26 13:00 | CONS ---
Date/Time of Note Date/Time of Note DATE: 05/26/17 TIME: 12:55 Assessment/Plan Assessment/Plan Chief Complaint/Hosp Course IMP: 1.HTN-elevated 2.H/O PAF-Remains in SR at this time by exam 3.renal failure 4.dysphagia 5. AMS 6. Heart pixem-[id number] HR.improved with holding BB overall some intermittent recurrence when on Tele still 7. Chest pain-resolved/negative troponin/no change on serial ecg 8. Occasional PVC's-when on tele 9. CHF-diastolic acute on chronic 10.UTI 11.anemia 12. Hyperkalemia REcc: -Now on med-surg -serial ecg's to document rhythm -Continue clondine TTS and norvasc at increased dose and f/u labile BP control closely -Continue to Hold BB given wenkebach -Follow volume status closely with HD today -HD for volume removal -Follow MS closely -f/u k after receiving kayexalate Problems: Consultation Date/Type/Reason Admit Date/Time Apr 17, 2017 at 16:39 Initial Consult Date 04/18/17 Type of Consultation: cardiology Reason for Consultation AF Referring Provider: PORTIA OLIVER MD Exam/Review of Systems Vital Signs Vitals Vital Signs Date Time Temp Pulse Resp B/P Pulse Ox O2 Delivery O2 Flow Rate FiO2 05/26/17 09:03 70 18 98 21 05/26/17 02:11 97.9 157/71 05/22/17 19:44 Room Air Intake and Output 05/25/17 05/25/17 05/26/17 15:00 23:00 07:00 Intake Total 700 ml 1160 ml 1100 ml Output Total 1900 ml 550 ml 350 ml Balance -1200 ml 610 ml 750 ml Exam Review of Systems: CONSTITUTIONAL: No fevers, chills. PULMONARY: No sob CARDIOVASCULAR: No chest pain/palpitations GASTROINTESTINAL: No nausea/vomiting. GENITOURINARY: No hematuria/dysuria. MUSCULOSKELETAL: No myagias/arthalgias. PSYCHIATRIC: The patient denies depression. NEUROLOGIC: encephalopathic Constitutional: other (sleeping) Psych: no complaints Head: normocephalic ENMT: mucosa pink and moist Neck: jvd (9 cm water), supple Respiratory: diminished breath sounds (at bases/B) Cardiovascular: regular rate and rhythm Gastrointestinal: non-tender, soft Musculoskeletal: muscle tone (normal) Extremities: edema (none) Neurological: other Results Result Diagram: 05/26/17 0453 05/26/17 0453 Results 24 hrs Laboratory Tests Test 05/25/17 12:57 05/25/17 16:51 05/25/17 20:58 05/26/17 01:01 Bedside Glucose 197 213 142 158 Test 05/26/17 04:53 05/26/17 05:12 05/26/17 08:43 White Blood Count 12.4 H Red Blood Count 2.81 L Hemoglobin 8.4 L Hematocrit 27.1 L Mean Corpuscular Volume 96.4 Mean Corpuscular Hemoglobin 29.9 Mean Corpuscular Hemoglobin Concent 31.0 L Red Cell Distribution Width 20.4 H Platelet Count 186 Mean Platelet Volume 12.5 H Neutrophils % 62.2 Lymphocytes % 17.9 Monocytes % 7.5 Eosinophils % 11.2 H Basophils % 0.7 Nucleated Red Blood Cells % 0.0 Neutrophils # 7.7 H Lymphocytes # 2.2 Monocytes # 0.9 Eosinophils # 1.4 H Basophils # 0.1 Nucleated Red Blood Cells # 0.0 Sodium Level 139 Potassium Level 5.6 H Chloride Level 103 Carbon Dioxide Level 33 H Anion Gap 9 Blood Urea Nitrogen 63 H Creatinine 2.14 H Glucose Level 135 Calcium Level 8.6 Bedside Glucose 161 118 Medications Medications Current Medications Acetaminophen (Tylenol Tab) 650 mg Q6H PRN GTB PAIN AND OR ELEVATED TEMP Last administered on 05/05/17 12:01; Admin Dose 650 MG; Start 04/17/17 at 18:00 Bisacodyl (Dulcolax Supp) 10 mg Q24H [place] Last administered on 05/25/17 17:02; Admin Dose 10 MG; Start 04/17/17 at 18:00 Diphenhydramine HCl (Benadryl) 25 mg Q6H PRN GTB ITCHING Last administered on 05/26/17 05:16; Admin Dose 25 MG; Start 04/17/17 at 18:00 Multivitamins Therapeutic (Theragran) 1 tab DAILY GTB Last administered on 05/26 08:47; Admin Dose 1 TAB; Start 04/18/17 at 09:00 Miscellaneous Information 1 ea NOTE XX ; Start 04/17/17 at 21:00 Glucose (Glutose) 15 gm Q15M PRN PO DECREASED GLUCOSE; Start 04/17/17 at 21:00 Glucose (Glutose) 22.5 gm Q15M PRN PO DECREASED GLUCOSE; Start 04/17/17 at 21: 00 Dextrose (D50w Syringe) 25 ml Q15M PRN IV DECREASED GLUCOSE Last administered on 05/18/17 20:46; Admin Dose 25 ML; Start 04/17/17 at 21:00 Dextrose (D50w Syringe) 50 ml Q15M PRN IV DECREASED GLUCOSE Last administered on 05/06/17 06:24; Admin Dose 50 ML; Start 04/17/17 at 21:00 Glucagon (Glucagen) 1 mg Q15M PRN IM DECREASED GLUCOSE; Start 04/17/17 at 21:00 Glucose (Glutose) 15 gm Q15M PRN BUCCAL DECREASED GLUCOSE; Start 04/17/17 at 21 :00 Ondansetron HCl (Zofran Inj) 4 mg Q6H PRN IV NAUSEA AND/OR VOMITING; Start at 00:30 Metoprolol Tartrate (Lopressor) 25 mg BID PO Last administered on 04/28/17 08: 14; Admin Dose 25 MG; Start 04/23/17 at 09:00; Status Future Hold Hydralazine HCl (Apresoline) 10 mg Q4H PRN IV SBP>170; Start 04/22/17 at 22:00 Nitroglycerin (Nitroglycerin (Sl Tab) 0.4 Mg) 1 tab Q5M PRN SL ANGINA; Start at 18:00 Acetaminophen/ Hydrocodone Bitart ([place] (5/325)) 1 tab Q6H PRN PO PAIN LEVEL 4 -7 Last administered on 05/22/17 17:32; Admin Dose 1 TAB; Start 05/03/17 at 03: 30 Acetaminophen (Tylenol Liquid) 650 mg Q4H PRN GTB PAIN AND OR ELEVATED TEMP Last administered on 05/12/17 18:12; Admin Dose 650 MG; Start 05/03/17 at 03:30 Zinc Acetate/ Diphenhydramine (Benadryl 2% Cr) 1 applic Q8 PRN TOP ITCHING Last administered on 05/18/17 03:31; Admin Dose 1 APPLIC; Start 05/07/17 at 11: 00 Lansoprazole (Prevacid) 30 mg BID@06,18 GTB Last administered on 05/26/17 05: 16; Admin Dose 30 MG; Start 05/08/17 at 18:00 Clonidine HCl (Catapres-Tts 1 Patch) 1 patch Q7D TRANSDERM Last administered on 05/22/17 15:08; Admin Dose 1 PATCH; Start 05/08/17 at 15:00 Epoetin Taqueria (Epogen (Esrd)) 2,000 units MoWeFr@17 SC Last administered on 05/24 17:03; Admin Dose 2,000 UNITS; Start 05/17/17 at 17:00 Alprazolam (Xanax) 0.5 mg Q6H PRN JT ANXIETY Last administered on 05/23/17 09: 20; Admin Dose 0.5 MG; Start 05/19/17 at 18:30 Hydralazine HCl (Apresoline) 50 mg Q6H PRN GTB ABOVE 160; Start 05/23/17 at 12: 00 Amlodipine Besylate (Norvasc) 5 mg BID GTB Last administered on 05/26/17 08:48 ; Admin Dose 5 MG; Start 05/23/17 at 21:00 Metoclopramide HCl (Reglan) 5 mg TID PRN IV NAUSEA; Start 05/25/17 at 13:00 Insulin Aspart (Novolog Insulin Pen) (Adult SC Insulin - Mild Algorithm)... Q4 SC Last administered on 05/26/17 05:32; Admin Dose 1 UNIT; Start 05/24/17 at 17:00 Insulin Glargine (Lantus) 17 unit QHS SC Last administered on 05/25/17 21:14; Admin Dose 17 UNIT; Start 05/25/17 at 21:00 LESLI SHEA May 26, 2017 13:00
--- NOTE | 2017-05-26 13:44 | PN ---
Date/Time of Note Date/Time of Note DATE: 05/26/17 TIME: 13:43 Assessment/Plan VTE Prophylaxis VTE Prophylaxis Intervention: SCD's Lines/Catheters IV [facility] PERMACATH Urinary Cath still in place: Yes Reason Cath still needed: urinary retention Assessment/Plan Chief Complaint/Hosp Course Blood sugar is better controlled, pt tolerates GT feeding well, hyperkalemia, s/ p Kayexalate. Assessment/Plan - Acute kidney injury on chronic kidney disease. Continue hemodialysis per renal. Dr. Cheema is following in nephrology consultation. - Protein calorie malnutrition, increase G-tube feeding according to electric mule driver recommendations - Status post post urinary tract infection. - History of cerebrovascular accident - Diabetes mellitus. Continue Lantus and NovoLog. - Diastolic congestive heart failure. Continue to monitor intake and output. - Paroxysmal atrial fibrillation, currently in sinus rhythm. - Hypertension. Continue Norvasc. - Hyperlipidemia. Continue statin. - Urinary retention with Flores catheter. - Dysphagia, status post PEG placement - Anemia of chronic disease, continue Epogen. 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 Plan of care discussed with Dr. Patel Problems: Exam/Review of Systems Vital Signs Vitals Vital Signs Date Time Temp Pulse Resp B/P Pulse Ox O2 Delivery O2 Flow Rate FiO2 05/26/17 09:03 70 18 98 21 05/26/17 02:11 97.9 157/71 05/22/17 19:44 Room Air Intake and Output 05/25/17 05/25/17 05/26/17 15:00 23:00 07:00 Intake Total 700 ml 1160 ml 1100 ml Output Total 1900 ml 550 ml 350 ml Balance -1200 ml 610 ml 750 ml Exam Constitutional: alert Neck: supple Respiratory: normal air movement Cardiovascular: nl pulses Gastrointestinal: other, soft Extremities: normal pulses (Tube) Additional Comments Right IJ permacath Results Result Diagram: 05/26/17 0453 05/26/17 0453 Results 24 hrs Laboratory Tests Test 05/25/17 16:51 05/25/17 20:58 05/26/17 01:01 05/26/17 04:53 Bedside Glucose 213 142 158 White Blood Count 12.4 H Red Blood Count 2.81 L Hemoglobin 8.4 L Hematocrit 27.1 L Mean Corpuscular Volume 96.4 Mean Corpuscular Hemoglobin 29.9 Mean Corpuscular Hemoglobin Concent 31.0 L Red Cell Distribution Width 20.4 H Platelet Count 186 Mean Platelet Volume 12.5 H Neutrophils % 62.2 Lymphocytes % 17.9 Monocytes % 7.5 Eosinophils % 11.2 H Basophils % 0.7 Nucleated Red Blood Cells % 0.0 Neutrophils # 7.7 H Lymphocytes # 2.2 Monocytes # 0.9 Eosinophils # 1.4 H Basophils # 0.1 Nucleated Red Blood Cells # 0.0 Sodium Level 139 Potassium Level 5.6 H Chloride Level 103 Carbon Dioxide Level 33 H Anion Gap 9 Blood Urea Nitrogen 63 H Creatinine 2.14 H Glucose Level 135 Calcium Level 8.6 Test 05/26/17 05:12 05/26/17 08:43 Bedside Glucose 161 118 Medications Medications Current Medications Acetaminophen (Tylenol Tab) 650 mg Q6H PRN GTB PAIN AND OR ELEVATED TEMP Last administered on 05/05/17 12:01; Admin Dose 650 MG; Start 04/17/17 at 18:00 Bisacodyl (Dulcolax Supp) 10 mg Q24H SC Last administered on 05/25/17 17:02; Admin Dose 10 MG; Start 04/17/17 at 18:00 Diphenhydramine HCl (Benadryl) 25 mg Q6H PRN GTB ITCHING Last administered on 05/26/17 12:55; Admin Dose 25 MG; Start 04/17/17 at 18:00 Multivitamins Therapeutic (Theragran) 1 tab DAILY GTB Last administered on 05/26 08:47; Admin Dose 1 TAB; Start 04/18/17 at 09:00 Miscellaneous Information 1 ea NOTE XX ; Start 04/17/17 at 21:00 Glucose (Glutose) 15 gm Q15M PRN PO DECREASED GLUCOSE; Start 04/17/17 at 21:00 Glucose (Glutose) 22.5 gm Q15M PRN PO DECREASED GLUCOSE; Start 04/17/17 at 21: 00 Dextrose (D50w Syringe) 25 ml Q15M PRN IV DECREASED GLUCOSE Last administered on 05/18/17 20:46; Admin Dose 25 ML; Start 04/17/17 at 21:00 Dextrose (D50w Syringe) 50 ml Q15M PRN IV DECREASED GLUCOSE Last administered on 05/06/17 06:24; Admin Dose 50 ML; Start 04/17/17 at 21:00 Glucagon (Glucagen) 1 mg Q15M PRN IM DECREASED GLUCOSE; Start 04/17/17 at 21:00 Glucose (Glutose) 15 gm Q15M PRN BUCCAL DECREASED GLUCOSE; Start 04/17/17 at 21 :00 Ondansetron HCl (Zofran Inj) 4 mg Q6H PRN IV NAUSEA AND/OR VOMITING; Start at 00:30 Metoprolol Tartrate (Lopressor) 25 mg BID PO Last administered on 04/28/17 08: 14; Admin Dose 25 MG; Start 04/23/17 at 09:00; Status Future Hold Hydralazine HCl (Apresoline) 10 mg Q4H PRN IV SBP>170; Start 04/22/17 at 22:00 Nitroglycerin (Nitroglycerin (Sl Tab) 0.4 Mg) 1 tab Q5M PRN SL ANGINA; Start at 18:00 Acetaminophen/ Hydrocodone Bitart ([place] (5/325)) 1 tab Q6H PRN PO PAIN LEVEL 4 -7 Last administered on 05/22/17 17:32; Admin Dose 1 TAB; Start 05/03/17 at 03: 30 Acetaminophen (Tylenol Liquid) 650 mg Q4H PRN GTB PAIN AND OR ELEVATED TEMP Last administered on 05/12/17 18:12; Admin Dose 650 MG; Start 05/03/17 at 03:30 Zinc Acetate/ Diphenhydramine (Benadryl 2% Cr) 1 applic Q8 PRN TOP ITCHING Last administered on 05/18/17 03:31; Admin Dose 1 APPLIC; Start 05/07/17 at 11: 00 Lansoprazole (Prevacid) 30 mg BID@06,18 GTB Last administered on 05/26/17 05: 16; Admin Dose 30 MG; Start 05/08/17 at 18:00 Clonidine HCl (Catapres-Tts 1 Patch) 1 patch Q7D TRANSDERM Last administered on 05/22/17 15:08; Admin Dose 1 PATCH; Start 05/08/17 at 15:00 Epoetin Taqueria (Epogen (Esrd)) 2,000 units MoWeFr@17 SC Last administered on 05/24 17:03; Admin Dose 2,000 UNITS; Start 05/17/17 at 17:00 Alprazolam (Xanax) 0.5 mg Q6H PRN JT ANXIETY Last administered on 05/23/17 09: 20; Admin Dose 0.5 MG; Start 05/19/17 at 18:30 Hydralazine HCl (Apresoline) 50 mg Q6H PRN GTB ABOVE 160; Start 05/23/17 at 12: 00 Amlodipine Besylate (Norvasc) 5 mg BID GTB Last administered on 05/26/17 08:48 ; Admin Dose 5 MG; Start 05/23/17 at 21:00 Metoclopramide HCl (Reglan) 5 mg TID PRN IV NAUSEA; Start 05/25/17 at 13:00 Insulin Aspart (Novolog Insulin Pen) (Adult SC Insulin - Mild Algorithm)... Q4 SC Last administered on 05/26/17 05:32; Admin Dose 1 UNIT; Start 05/24/17 at 17:00 Insulin Glargine (Lantus) 17 unit QHS SC Last administered on 05/25/17 21:14; Admin Dose 17 UNIT; Start 05/25/17 at 21:00 GEOVANY IBARRA May 26, 2017 13:44
[2017-05-26] MEDS: BISACODYL 10 MG SUPP PR SCH (17:34)
[2017-05-26] MEDS: EPOETIN 2000 UNITS/1 ML INJ (ESRD) SC SCH (17:40)
[2017-05-26 19:18] VITALS: BP 119/58; RESP 18
[2017-05-26] MEDS: INSULIN GLARGINE [LANtus] 3 ML PEN SC SCH (21:32)
[2017-05-27] VITALS (10 sets, daily range): BP systolic 85–174; BP diastolic 49–86; PULSE 81–96; RESP 17–18
[2017-05-27] MEDS: INSULIN ASPART [NOVOLOG] 3 ML PEN SC SCH ×6 (01:00→20:39)
[2017-05-27] MEDS: ALBUTEROL/IPRATROPIUM (NEB) 3 ML AMP HHN SCH ×4 (01:29→19:39)
[2017-05-27 05:41] LABS: BASOPHIL # 0.1 10^3/ul (0.0-0.1); BASOPHILS % 0.8 % (0.0-2.0); EOSINOPHILS # 1.6 10^3/ul (0.0-0.5); HEMATOCRIT 30.8 % (42.0-52.0); HEMOGLOBIN 9.5 g/dl (14.0-18.0); LYMPHOCYTES # 1.8 10^3/ul (0.8-2.9); LYMPHOCYTES % 15.1 % (15.0-51.0); MEAN CORPUSCULAR HEMOGLOBIN 29.4 pg (29.0-33.0); MEAN CORPUSCULAR HGB CONC 30.8 g/dl (32.0-37.0); MEAN CORPUSCULAR VOLUME 95.4 fl (82.0-101.0); MEAN PLATELET VOLUME 12.5 fl (7.4-10.4); MONOCYTE # 0.8 10^3/ul (0.3-0.9); MONOCYTES % 6.9 % (0.0-11.0); NEUTROPHIL # 7.7 10^3/ul (1.6-7.5); NEUTROPHILS % 63.7 % (39.0-77.0); PLATELET COUNT 210 10^3/UL (140-415); RED BLOOD COUNT 3.23 10^6/ul (4.70-6.10); RED CELL DISTRIBUTION WIDTH 19.9 % (11.5-14.5); WHITE BLOOD COUNT 12.1 10^3/ul (4.8-10.8)
[2017-05-27] MEDS: LANSOPRAZOLE 30 MG CAP GTB SCH ×2 (06:15→17:44)
[2017-05-27 06:20] LABS: CALCIUM 8.9 mg/dl (8.4-10.2); CREATININE 2.75 mg/dl (0.61-1.24); POTASSIUM 3.9 mmol/L (3.5-5.1)
[2017-05-27] MEDS: AMLODIPINE 5 MG TAB GTB SCH ×2 (09:00→20:31)
[2017-05-27] MEDS: MULTIVITAMINS THERAPEUTIC TAB GTB SCH (09:01)
--- NOTE | 2017-05-27 11:25 | CONS ---
Date/Time of Note Date/Time of Note DATE: 05/27/17 TIME: 11:23 Assessment/Plan Assessment/Plan Chief Complaint/Hosp Course IMP: 1.HTN-elevated 2.H/O PAF-Remains in SR at this time by exam 3.renal failure 4.dysphagia 5. AMS 6. Heart tjdrz-deaaydtwg-tdgphu HR.improved with holding BB overall some intermittent recurrence when on Tele still 7. Chest pain-resolved/negative troponin/no change on serial ecg 8. Occasional PVC's-when on tele 9. CHF-diastolic acute on chronic 10.UTI 11.anemia 12. Hyperkalemia-improved s/p kayexalate dose REcc: -Now on med-surg -serial ecg's to document rhythm -Continue clondine TTS and norvasc at increased dose and f/u labile BP control closely which is currently reasonable -Continue to Hold BB given wenkebach -Follow volume status closely with HD today -HD for volume removal -Follow MS closely Problems: Consultation Date/Type/Reason Admit Date/Time Apr 17, 2017 at 16:39 Initial Consult Date 04/18/17 Type of Consultation: cardiology Reason for Consultation AF/cad Referring Provider: PORTIA OLIVER MD Exam/Review of Systems Vital Signs Vitals Vital Signs Date Time Temp Pulse Resp B/P Pulse Ox O2 Delivery O2 Flow Rate FiO2 05/27/17 08:40 88 18 98 21 05/27/17 07:30 98.2 129/62 Intake and Output 05/26/17 05/26/17 05/27/17 15:00 23:00 07:00 Intake Total 480 ml 540 ml 800 ml Output Total 650 ml 750 ml Balance 480 ml -110 ml 50 ml Exam Review of Systems: CONSTITUTIONAL: No fevers, chills. PULMONARY: No sob CARDIOVASCULAR: No chest pain/palpitations GASTROINTESTINAL: No nausea/vomiting. GENITOURINARY: No hematuria/dysuria. MUSCULOSKELETAL: No myagias/arthalgias. PSYCHIATRIC: The patient denies depression. NEUROLOGIC: lethargic Constitutional: alert Psych: no complaints Head: normocephalic ENMT: mucosa pink and moist Neck: jvd (9 cm water), supple Respiratory: diminished breath sounds (at bases/B) Cardiovascular: regular rate and rhythm Gastrointestinal: non-tender, soft Musculoskeletal: muscle tone (normal) Extremities: edema (none) Neurological: lethargic Results Result Diagram: 05/27/17 0437 05/27/17 0441 Results 24 hrs Laboratory Tests Test 05/26/17 13:58 05/26/17 17:30 05/26/17 21:29 05/27/17 01:17 Bedside Glucose 122 171 129 108 Test 05/27/17 04:37 05/27/17 04:41 05/27/17 05:41 05/27/17 09:06 White Blood Count 12.1 H Red Blood Count 3.23 L Hemoglobin 9.5 L Hematocrit 30.8 L Mean Corpuscular Volume 95.4 Mean Corpuscular Hemoglobin 29.4 Mean Corpuscular Hemoglobin Concent 30.8 L Red Cell Distribution Width 19.9 H Platelet Count 210 Mean Platelet Volume 12.5 H Neutrophils % 63.7 Lymphocytes % 15.1 Monocytes % 6.9 Eosinophils % 13.0 H Basophils % 0.8 Nucleated Red Blood Cells % 0.0 Neutrophils # 7.7 H Lymphocytes # 1.8 Monocytes # 0.8 Eosinophils # 1.6 H Basophils # 0.1 Nucleated Red Blood Cells # 0.0 Sodium Level 141 Potassium Level 3.9 Chloride Level 102 Carbon Dioxide Level 32 H Anion Gap 11 Blood Urea Nitrogen 78 H Creatinine 2.75 H Glucose Level 107 Calcium Level 8.9 Bedside Glucose 117 102 Medications Medications Current Medications Acetaminophen (Tylenol Tab) 650 mg Q6H PRN GTB PAIN AND OR ELEVATED TEMP Last administered on 05/05/17 12:01; Admin Dose 650 MG; Start 04/17/17 at 18:00 Bisacodyl (Dulcolax Supp) 10 mg Q24H [place] Last administered on 05/25/17 17:02; Admin Dose 10 MG; Start 04/17/17 at 18:00 Diphenhydramine HCl (Benadryl) 25 mg Q6H PRN GTB ITCHING Last administered on 05/26/17 21:22; Admin Dose 25 MG; Start 04/17/17 at 18:00 Multivitamins Therapeutic (Theragran) 1 tab DAILY GTB Last administered on 05/27 09:01; Admin Dose 1 TAB; Start 04/18/17 at 09:00 Miscellaneous Information 1 ea NOTE XX ; Start 04/17/17 at 21:00 Glucose (Glutose) 15 gm Q15M PRN PO DECREASED GLUCOSE; Start 04/17/17 at 21:00 Glucose (Glutose) 22.5 gm Q15M PRN PO DECREASED GLUCOSE; Start 04/17/17 at 21: 00 Dextrose (D50w Syringe) 25 ml Q15M PRN IV DECREASED GLUCOSE Last administered on 05/18/17 20:46; Admin Dose 25 ML; Start 04/17/17 at 21:00 Dextrose (D50w Syringe) 50 ml Q15M PRN IV DECREASED GLUCOSE Last administered on 05/06/17 06:24; Admin Dose 50 ML; Start 04/17/17 at 21:00 Glucagon (Glucagen) 1 mg Q15M PRN IM DECREASED GLUCOSE; Start 04/17/17 at 21:00 Glucose (Glutose) 15 gm Q15M PRN BUCCAL DECREASED GLUCOSE; Start 04/17/17 at 21 :00 Ondansetron HCl (Zofran Inj) 4 mg Q6H PRN IV NAUSEA AND/OR VOMITING; Start at 00:30 Metoprolol Tartrate (Lopressor) 25 mg BID PO Last administered on 04/28/17 08: 14; Admin Dose 25 MG; Start 04/23/17 at 09:00; Status Future Hold Hydralazine HCl (Apresoline) 10 mg Q4H PRN IV SBP>170; Start 04/22/17 at 22:00 Nitroglycerin (Nitroglycerin (Sl Tab) 0.4 Mg) 1 tab Q5M PRN SL ANGINA; Start at 18:00 Acetaminophen/ Hydrocodone Bitart ([place] (5/325)) 1 tab Q6H PRN PO PAIN LEVEL 4 -7 Last administered on 05/22/17 17:32; Admin Dose 1 TAB; Start 05/03/17 at 03: 30 Acetaminophen (Tylenol Liquid) 650 mg Q4H PRN GTB PAIN AND OR ELEVATED TEMP Last administered on 05/12/17 18:12; Admin Dose 650 MG; Start 05/03/17 at 03:30 Zinc Acetate/ Diphenhydramine (Benadryl 2% Cr) 1 applic Q8 PRN TOP ITCHING Last administered on 05/18/17 03:31; Admin Dose 1 APPLIC; Start 05/07/17 at 11: 00 Lansoprazole (Prevacid) 30 mg BID@06,18 GTB Last administered on 05/27/17 06: 15; Admin Dose 30 MG; Start 05/08/17 at 18:00 Clonidine HCl (Catapres-Tts 1 Patch) 1 patch Q7D TRANSDERM Last administered on 05/22/17 15:08; Admin Dose 1 PATCH; Start 05/08/17 at 15:00 Epoetin Taqueria (Epogen (Esrd)) 2,000 units MoWeFr@17 [place] Last administered on 05/26 17:40; Admin Dose 2,000 UNITS; Start 05/17/17 at 17:00 Alprazolam (Xanax) 0.5 mg Q6H PRN JT ANXIETY Last administered on 05/23/17 09: 20; Admin Dose 0.5 MG; Start 05/19/17 at 18:30 Hydralazine HCl (Apresoline) 50 mg Q6H PRN GTB ABOVE 160; Start 05/23/17 at 12: 00 Amlodipine Besylate (Norvasc) 5 mg BID GTB Last administered on 05/26/17 21:23 ; Admin Dose 5 MG; Start 05/23/17 at 21:00 Metoclopramide HCl (Reglan) 5 mg TID PRN IV NAUSEA; Start 05/25/17 at 13:00 Insulin Aspart (Novolog Insulin Pen) (Adult SC Insulin - Mild Algorithm)... Q4 [place] Last administered on 05/26/17 17:46; Admin Dose 1 UNIT; Start 05/24/17 at 17:00 Insulin Glargine (Lantus) 17 unit QHS [place] Last administered on 05/26/17 21:32; Admin Dose 17 UNIT; Start 05/25/17 at 21:00 LESLI SHEA May 27, 2017 11:25
--- NOTE | 2017-05-27 16:57 | CONS ---
Date/Time of Note Date/Time of Note DATE: 05/27/17 TIME: 16:56 Assessment/Plan Assessment/Plan Chief Complaint/Hosp Course 1 CKD5 2.Hypernatremia HX 3.HTN 4 Ecoli UTI HX 5 Sepsis BETTER 6 Chronic AfibHX 7 CVA s/p G tube placement 8 Renal cyst 9 uremia 10 pul edemaBETTER plan continue HD FOR NOW NEED SNF PLACEMENT Problems: Consultation Date/Type/Reason Admit Date/Time Apr 17, 2017 at 16:39 Type of Consultation: RENAL Referring Provider: PORTIA OLIVER MD 24 HR Interval Summary Constitutional: improved Exam/Review of Systems Vital Signs Vitals Vital Signs Date Time Temp Pulse Resp B/P Pulse Ox O2 Delivery O2 Flow Rate FiO2 05/27/17 15:05 81 16 05/27/17 08:40 98 21 05/27/17 07:30 98.2 129/62 Intake and Output 05/26/17 05/26/17 05/27/17 15:00 23:00 07:00 Intake Total 480 ml 540 ml 800 ml Output Total 650 ml 750 ml Balance 480 ml -110 ml 50 ml Exam Respiratory: clear to auscultation Cardiovascular: regular rate and rhythm Gastrointestinal: bowel sounds (+), soft Extremities: No edema Results Result Diagram: 05/27/17 0437 05/27/17 0441 Results 24 hrs Laboratory Tests Test 05/26/17 17:30 05/26/17 21:29 05/27/17 01:17 05/27/17 04:37 Bedside Glucose 171 129 108 White Blood Count 12.1 H Red Blood Count 3.23 L Hemoglobin 9.5 L Hematocrit 30.8 L Mean Corpuscular Volume 95.4 Mean Corpuscular Hemoglobin 29.4 Mean Corpuscular Hemoglobin Concent 30.8 L Red Cell Distribution Width 19.9 H Platelet Count 210 Mean Platelet Volume 12.5 H Neutrophils % 63.7 Lymphocytes % 15.1 Monocytes % 6.9 Eosinophils % 13.0 H Basophils % 0.8 Nucleated Red Blood Cells % 0.0 Neutrophils # 7.7 H Lymphocytes # 1.8 Monocytes # 0.8 Eosinophils # 1.6 H Basophils # 0.1 Nucleated Red Blood Cells # 0.0 Test 05/27/17 04:41 05/27/17 05:41 05/27/17 09:06 05/27/17 13:15 Sodium Level 141 Potassium Level 3.9 Chloride Level 102 Carbon Dioxide Level 32 H Anion Gap 11 Blood Urea Nitrogen 78 H Creatinine 2.75 H Glucose Level 107 Calcium Level 8.9 Bedside Glucose 117 102 72 Medications Medications Current Medications Acetaminophen (Tylenol Tab) 650 mg Q6H PRN GTB PAIN AND OR ELEVATED TEMP Last administered on 05/05/17 12:01; Admin Dose 650 MG; Start 04/17/17 at 18:00 Bisacodyl (Dulcolax Supp) 10 mg Q24H [place] Last administered on 05/25/17 17:02; Admin Dose 10 MG; Start 04/17/17 at 18:00 Diphenhydramine HCl (Benadryl) 25 mg Q6H PRN GTB ITCHING Last administered on 05/26/17 21:22; Admin Dose 25 MG; Start 04/17/17 at 18:00 Multivitamins Therapeutic (Theragran) 1 tab DAILY GTB Last administered on 05/27 09:01; Admin Dose 1 TAB; Start 04/18/17 at 09:00 Miscellaneous Information 1 ea NOTE XX ; Start 04/17/17 at 21:00 Glucose (Glutose) 15 gm Q15M PRN PO DECREASED GLUCOSE; Start 04/17/17 at 21:00 Glucose (Glutose) 22.5 gm Q15M PRN PO DECREASED GLUCOSE; Start 04/17/17 at 21: 00 Dextrose (D50w Syringe) 25 ml Q15M PRN IV DECREASED GLUCOSE Last administered on 05/18/17 20:46; Admin Dose 25 ML; Start 04/17/17 at 21:00 Dextrose (D50w Syringe) 50 ml Q15M PRN IV DECREASED GLUCOSE Last administered on 05/06/17 06:24; Admin Dose 50 ML; Start 04/17/17 at 21:00 Glucagon (Glucagen) 1 mg Q15M PRN IM DECREASED GLUCOSE; Start 04/17/17 at 21:00 Glucose (Glutose) 15 gm Q15M PRN BUCCAL DECREASED GLUCOSE; Start 04/17/17 at 21 :00 Ondansetron HCl (Zofran Inj) 4 mg Q6H PRN IV NAUSEA AND/OR VOMITING; Start at 00:30 Metoprolol Tartrate (Lopressor) 25 mg BID PO Last administered on 04/28/17 08: 14; Admin Dose 25 MG; Start 04/23/17 at 09:00; Status Future Hold Hydralazine HCl (Apresoline) 10 mg Q4H PRN IV SBP>170; Start 04/22/17 at 22:00 Nitroglycerin (Nitroglycerin (Sl Tab) 0.4 Mg) 1 tab Q5M PRN SL ANGINA; Start at 18:00 Acetaminophen/ Hydrocodone Bitart ([place] (5/325)) 1 tab Q6H PRN PO PAIN LEVEL 4 -7 Last administered on 05/22/17 17:32; Admin Dose 1 TAB; Start 05/03/17 at 03: 30 Acetaminophen (Tylenol Liquid) 650 mg Q4H PRN GTB PAIN AND OR ELEVATED TEMP Last administered on 05/12/17 18:12; Admin Dose 650 MG; Start 05/03/17 at 03:30 Zinc Acetate/ Diphenhydramine (Benadryl 2% Cr) 1 applic Q8 PRN TOP ITCHING Last administered on 05/18/17 03:31; Admin Dose 1 APPLIC; Start 05/07/17 at 11: 00 Lansoprazole (Prevacid) 30 mg BID@06,18 GTB Last administered on 05/27/17 06: 15; Admin Dose 30 MG; Start 05/08/17 at 18:00 Clonidine HCl (Catapres-Tts 1 Patch) 1 patch Q7D TRANSDERM Last administered on 05/22/17 15:08; Admin Dose 1 PATCH; Start 05/08/17 at 15:00 Epoetin Taqueria (Epogen (Esrd)) 2,000 units MoWeFr@17 SC Last administered on 05/26 17:40; Admin Dose 2,000 UNITS; Start 05/17/17 at 17:00 Alprazolam (Xanax) 0.5 mg Q6H PRN JT ANXIETY Last administered on 05/23/17 09: 20; Admin Dose 0.5 MG; Start 05/19/17 at 18:30 Hydralazine HCl (Apresoline) 50 mg Q6H PRN GTB ABOVE 160; Start 05/23/17 at 12: 00 Amlodipine Besylate (Norvasc) 5 mg BID GTB Last administered on 05/26/17 21:23 ; Admin Dose 5 MG; Start 05/23/17 at 21:00 Metoclopramide HCl (Reglan) 5 mg TID PRN IV NAUSEA; Start 05/25/17 at 13:00 Insulin Aspart (Novolog Insulin Pen) (Adult SC Insulin - Mild Algorithm)... Q4 [place] Last administered on 05/26/17 17:46; Admin Dose 1 UNIT; Start 05/24/17 at 17:00 Insulin Glargine (Lantus) 17 unit QHS [place] Last administered on 05/26/17 21:32; Admin Dose 17 UNIT; Start 05/25/17 at 21:00 ABBY RAMOS MD May 27, 2017 16:57
[2017-05-27] MEDS: BISACODYL 10 MG SUPP PR SCH (17:40)
[2017-05-27] MEDS: DIPHENHYDRAMINE 25 MG CAP GTB PRN (20:31)
[2017-05-27] MEDS: ALPRAZOLAM 0.5 MG TAB JT PRN (20:31)
[2017-05-27] MEDS: INSULIN GLARGINE [LANtus] 3 ML PEN SC SCH (20:49)
[2017-05-28] MEDS: HYDROCODONE/APAP (5/325) TAB PO PRN (00:25)
[2017-05-28] MEDS: INSULIN ASPART [NOVOLOG] 3 ML PEN SC SCH ×6 (01:11→21:00)
[2017-05-28] MEDS: ALBUTEROL/IPRATROPIUM (NEB) 3 ML AMP HHN SCH ×4 (01:18→21:52)
[2017-05-28 02:00] VITALS: BP 145/69; RESP 20
[2017-05-28] MEDS: LANSOPRAZOLE 30 MG CAP GTB SCH ×2 (05:36→17:22)
[2017-05-28 08:30] VITALS: BP 175/79; RESP 20
[2017-05-28] MEDS: MULTIVITAMINS THERAPEUTIC TAB GTB SCH (09:45)
[2017-05-28] MEDS: AMLODIPINE 5 MG TAB GTB SCH ×2 (09:45→21:05)
[2017-05-28 15:00] VITALS: BP 139/67; RESP 20
--- NOTE | 2017-05-28 16:41 | CONS ---
Date/Time of Note Date/Time of Note DATE: 05/28/17 TIME: 16:40 Assessment/Plan Assessment/Plan Chief Complaint/Hosp Course 1. ESRD Hd initiated on 05/06 2.Hypernatremia >improving 3.HTN, controlled 4 Ecoli UTI 5. Sepsis due to #4 6. Chronic Afib 7. CVA s/p G tube placement 8. Renal cyst 9 Hyperphosphatemia. Problems: Additional Assessment/Plan 1. Continue HD 2. COntinue tube feeding Consultation Date/Type/Reason Admit Date/Time Apr 17, 2017 at 16:39 Initial Consult Date 04/18/17 Type of Consultation: RENAL Reason for Consultation Dr Cheema Referring Provider: PORTIA OLIVER MD Exam/Review of Systems Vital Signs Vitals Vital Signs Date Time Temp Pulse Resp B/P Pulse Ox O2 Delivery O2 Flow Rate FiO2 05/28/17 14:45 92 20 98 21 05/28/17 08:30 98.3 175/79 Intake and Output 05/27/17 05/27/17 05/28/17 15:00 23:00 07:00 Intake Total 1430 ml 710 ml Output Total 1700 ml 275 ml Balance -270 ml 435 ml Exam Constitutional: other (confused) Gastrointestinal: other (GT), soft Results Result Diagram: 05/27/17 0437 05/27/17 0441 Results 24 hrs Laboratory Tests Test 05/27/17 17:10 05/27/17 20:29 05/28/17 01:07 05/28/17 04:40 Bedside Glucose 146 171 145 77 Test 05/28/17 04:41 05/28/17 09:43 05/28/17 13:14 Bedside Glucose 83 88 125 Medications Medications Current Medications Acetaminophen (Tylenol Tab) 650 mg Q6H PRN GTB PAIN AND OR ELEVATED TEMP Last administered on 05/05/17 12:01; Admin Dose 650 MG; Start 04/17/17 at 18:00 Bisacodyl (Dulcolax Supp) 10 mg Q24H [place] Last administered on 05/25/17 17:02; Admin Dose 10 MG; Start 04/17/17 at 18:00 Diphenhydramine HCl (Benadryl) 25 mg Q6H PRN GTB ITCHING Last administered on 05/27/17 20:31; Admin Dose 25 MG; Start 04/17/17 at 18:00 Multivitamins Therapeutic (Theragran) 1 tab DAILY GTB Last administered on 05/28 09:45; Admin Dose 1 TAB; Start 04/18/17 at 09:00 Miscellaneous Information 1 ea NOTE XX ; Start 04/17/17 at 21:00 Glucose (Glutose) 15 gm Q15M PRN PO DECREASED GLUCOSE; Start 04/17/17 at 21:00 Glucose (Glutose) 22.5 gm Q15M PRN PO DECREASED GLUCOSE; Start 04/17/17 at 21: 00 Dextrose (D50w Syringe) 25 ml Q15M PRN IV DECREASED GLUCOSE Last administered on 05/18/17 20:46; Admin Dose 25 ML; Start 04/17/17 at 21:00 Dextrose (D50w Syringe) 50 ml Q15M PRN IV DECREASED GLUCOSE Last administered on 05/06/17 06:24; Admin Dose 50 ML; Start 04/17/17 at 21:00 Glucagon (Glucagen) 1 mg Q15M PRN IM DECREASED GLUCOSE; Start 04/17/17 at 21:00 Glucose (Glutose) 15 gm Q15M PRN BUCCAL DECREASED GLUCOSE; Start 04/17/17 at 21 :00 Ondansetron HCl (Zofran Inj) 4 mg Q6H PRN IV NAUSEA AND/OR VOMITING; Start at 00:30 Metoprolol Tartrate (Lopressor) 25 mg BID PO Last administered on 04/28/17 08: 14; Admin Dose 25 MG; Start 04/23/17 at 09:00; Status Future Hold Hydralazine HCl (Apresoline) 10 mg Q4H PRN IV SBP>170; Start 04/22/17 at 22:00 Nitroglycerin (Nitroglycerin (Sl Tab) 0.4 Mg) 1 tab Q5M PRN SL ANGINA; Start at 18:00 Acetaminophen/ Hydrocodone Bitart ([place] (5/325)) 1 tab Q6H PRN PO PAIN LEVEL 4 -7 Last administered on 05/28/17 00:25; Admin Dose 1 TAB; Start 05/03/17 at 03: 30 Acetaminophen (Tylenol Liquid) 650 mg Q4H PRN GTB PAIN AND OR ELEVATED TEMP Last administered on 9/20/17at 18:12; Admin Dose 650 MG; Start 05/03/17 at 03:30 Zinc Acetate/ Diphenhydramine (Benadryl 2% Cr) 1 applic Q8 PRN TOP ITCHING Last administered on 05/18/17 03:31; Admin Dose 1 APPLIC; Start 05/07/17 at 11: 00 Lansoprazole (Prevacid) 30 mg BID@06,18 GTB Last administered on 05/28/17 05: 36; Admin Dose 30 MG; Start 05/08/17 at 18:00 Clonidine HCl (Catapres-Tts 1 Patch) 1 patch Q7D TRANSDERM Last administered on 05/22/17 15:08; Admin Dose 1 PATCH; Start 05/08/17 at 15:00 Epoetin Taqueria (Epogen (Esrd)) 2,000 units MoWeFr@17 SC Last administered on 05/26 17:40; Admin Dose 2,000 UNITS; Start 05/17/17 at 17:00 Alprazolam (Xanax) 0.5 mg Q6H PRN JT ANXIETY Last administered on 05/27/17 20: 31; Admin Dose 0.5 MG; Start 05/19/17 at 18:30 Hydralazine HCl (Apresoline) 50 mg Q6H PRN GTB ABOVE 160; Start 05/23/17 at 12: 00 Amlodipine Besylate (Norvasc) 5 mg BID GTB Last administered on 05/28/17 09:45 ; Admin Dose 5 MG; Start 05/23/17 at 21:00 Metoclopramide HCl (Reglan) 5 mg TID PRN IV NAUSEA; Start 05/25/17 at 13:00 Insulin Aspart (Novolog Insulin Pen) (Adult SC Insulin - Mild Algorithm)... Q4 SC Last administered on 05/28/17 01:11; Admin Dose 1 UNIT; Start 05/24/17 at 17:00 Insulin Glargine (Lantus) 17 unit QHS [place] Last administered on 05/27/17 20:49; Admin Dose 17 UNIT; Start 05/25/17 at 21:00 CHELSIE HERNÁNDEZ May 28, 2017 16:41
[2017-05-28] MEDS: BISACODYL 10 MG SUPP PR SCH (17:22)
[2017-05-28] MEDS: EPOETIN 2000 UNITS/1 ML INJ (ESRD) SC SCH (17:22)
--- NOTE | 2017-05-28 17:45 | PN ---
Date/Time of Note Date/Time of Note DATE: 05/28/17 TIME: 17:43 Assessment/Plan VTE Prophylaxis VTE Prophylaxis Intervention: SCD's Lines/Catheters IV [facility]from [facility] PERMACATH Urinary Cath still in place: Yes Reason Cath still needed: urinary retention Assessment/Plan Chief Complaint/Hosp Course Patient remains afebrile, vital elevation of white blood cells, will obtain chest x-ray. Patient tolerated G-tube feeding well. Assessment/Plan - Acute kidney injury on chronic kidney disease. Continue hemodialysis per renal. Dr. Cheema is following in nephrology consultation. - Protein calorie malnutrition, increase G-tube feeding according to legal librarian recommendations - Status post post urinary tract infection. - History of cerebrovascular accident - Diabetes mellitus. Continue Lantus and NovoLog. - Diastolic congestive heart failure. Continue to monitor intake and output. - Paroxysmal atrial fibrillation, currently in sinus rhythm. - Hypertension. Continue Norvasc. - Hyperlipidemia. Continue statin. - Urinary retention with Flores catheter. - Dysphagia, status post PEG placement - Anemia of chronic disease, continue Epogen. 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 Plan of care discussed with Dr. Patel Problems: Exam/Review of Systems Vital Signs Vitals Vital Signs Date Time Temp Pulse Resp B/P Pulse Ox O2 Delivery O2 Flow Rate FiO2 05/28/17 15:00 98.1 85 20 139/67 98 05/28/17 14:45 21 Intake and Output 05/27/17 05/27/17 05/28/17 15:00 23:00 07:00 Intake Total 1430 ml 710 ml Output Total 1700 ml 275 ml Balance -270 ml 435 ml Exam Constitutional: alert Neck: supple Respiratory: normal air movement Cardiovascular: nl pulses Gastrointestinal: other, soft Extremities: normal pulses (Tube) Additional Comments Right IJ permacath Results Result Diagram: 05/27/17 0437 05/27/17 0441 Results 24 hrs Laboratory Tests Test 05/27/17 20:29 05/28/17 01:07 05/28/17 04:40 05/28/17 04:41 Bedside Glucose 171 145 77 83 Test 05/28/17 09:43 05/28/17 13:14 05/28/17 17:19 Bedside Glucose 88 125 131 Medications Medications Current Medications Acetaminophen (Tylenol Tab) 650 mg Q6H PRN GTB PAIN AND OR ELEVATED TEMP Last administered on 05/05/17 12:01; Admin Dose 650 MG; Start 04/17/17 at 18:00 Bisacodyl (Dulcolax Supp) 10 mg Q24H [place] Last administered on 05/28/17 17:22; Admin Dose 10 MG; Start 04/17/17 at 18:00 Diphenhydramine HCl (Benadryl) 25 mg Q6H PRN GTB ITCHING Last administered on 05/27/17 20:31; Admin Dose 25 MG; Start 04/17/17 at 18:00 Multivitamins Therapeutic (Theragran) 1 tab DAILY GTB Last administered on 05/28 09:45; Admin Dose 1 TAB; Start 04/18/17 at 09:00 Miscellaneous Information 1 ea NOTE XX ; Start 04/17/17 at 21:00 Glucose (Glutose) 15 gm Q15M PRN PO DECREASED GLUCOSE; Start 04/17/17 at 21:00 Glucose (Glutose) 22.5 gm Q15M PRN PO DECREASED GLUCOSE; Start 04/17/17 at 21: 00 Dextrose (D50w Syringe) 25 ml Q15M PRN IV DECREASED GLUCOSE Last administered on 05/18/17 20:46; Admin Dose 25 ML; Start 04/17/17 at 21:00 Dextrose (D50w Syringe) 50 ml Q15M PRN IV DECREASED GLUCOSE Last administered on 05/06/17 06:24; Admin Dose 50 ML; Start 04/17/17 at 21:00 Glucagon (Glucagen) 1 mg Q15M PRN IM DECREASED GLUCOSE; Start 04/17/17 at 21:00 Glucose (Glutose) 15 gm Q15M PRN BUCCAL DECREASED GLUCOSE; Start 04/17/17 at 21 :00 Ondansetron HCl (Zofran Inj) 4 mg Q6H PRN IV NAUSEA AND/OR VOMITING; Start at 00:30 Metoprolol Tartrate (Lopressor) 25 mg BID PO Last administered on 04/28/17 08: 14; Admin Dose 25 MG; Start 04/23/17 at 09:00; Status Future Hold Hydralazine HCl (Apresoline) 10 mg Q4H PRN IV SBP>170; Start 04/22/17 at 22:00 Nitroglycerin (Nitroglycerin (Sl Tab) 0.4 Mg) 1 tab Q5M PRN SL ANGINA; Start at 18:00 Acetaminophen/ Hydrocodone Bitart ([place] (5/325)) 1 tab Q6H PRN PO PAIN LEVEL 4 -7 Last administered on 05/28/17 00:25; Admin Dose 1 TAB; Start 05/03/17 at 03: 30 Acetaminophen (Tylenol Liquid) 650 mg Q4H PRN GTB PAIN AND OR ELEVATED TEMP Last administered on 05/12/17 18:12; Admin Dose 650 MG; Start 05/03/17 at 03:30 Zinc Acetate/ Diphenhydramine (Benadryl 2% Cr) 1 applic Q8 PRN TOP ITCHING Last administered on 05/18/17 03:31; Admin Dose 1 APPLIC; Start 05/07/17 at 11: 00 Lansoprazole (Prevacid) 30 mg BID@06,18 GTB Last administered on 05/28/17 17: 22; Admin Dose 30 MG; Start 05/08/17 at 18:00 Clonidine HCl (Catapres-Tts 1 Patch) 1 patch Q7D TRANSDERM Last administered on 05/22/17 15:08; Admin Dose 1 PATCH; Start 05/08/17 at 15:00 Epoetin Taqueria (Epogen (Esrd)) 2,000 units MoWeFr@17 SC Last administered on 05/28 17:22; Admin Dose 2,000 UNITS; Start 05/17/17 at 17:00 Alprazolam (Xanax) 0.5 mg Q6H PRN JT ANXIETY Last administered on 05/27/17 20: 31; Admin Dose 0.5 MG; Start 05/19/17 at 18:30 Hydralazine HCl (Apresoline) 50 mg Q6H PRN GTB ABOVE 160; Start 05/23/17 at 12: 00 Amlodipine Besylate (Norvasc) 5 mg BID GTB Last administered on 05/28/17 09:45 ; Admin Dose 5 MG; Start 05/23/17 at 21:00 Metoclopramide HCl (Reglan) 5 mg TID PRN IV NAUSEA; Start 05/25/17 at 13:00 Insulin Aspart (Novolog Insulin Pen) (Adult SC Insulin - Mild Algorithm)... Q4 [place] Last administered on 05/28/17 01:11; Admin Dose 1 UNIT; Start 05/24/17 at 17:00 Insulin Glargine (Lantus) 17 unit QHS [place] Last administered on 05/27/17 20:49; Admin Dose 17 UNIT; Start 05/25/17 at 21:00 GEOVANY IBARRA May 28, 2017 17:45
--- NOTE | 2017-05-28 17:56 | CONS ---
Date/Time of Note Date/Time of Note DATE: 05/28/17 TIME: 17:53 Assessment/Plan Assessment/Plan Chief Complaint/Hosp Course IMP: 1.HTN-elevated 2.H/O PAF-Remains in SR at this time by exam 3.renal failure 4.dysphagia 5. AMS 6. Heart vttlk-wevfvjvvh-uojcky HR.improved with holding BB overall some intermittent recurrence when on Tele still 7. Chest pain-resolved/negative troponin/no change on serial ecg 8. Occasional PVC's-when on tele 9. CHF-diastolic acute on chronic 10.UTI 11.anemia 12. Hyperkalemia-improved s/p kayexalate dose REcc: -Now on med-surg -serial ecg's to document rhythm -Continue clondine TTS with slight increase and norvasc at current dose and f/u labile BP control closely -Continue to Hold BB given wenkebach -Follow volume status closely with HD today -HD for volume removal -Follow MS closely Problems: Consultation Date/Type/Reason Admit Date/Time Apr 17, 2017 at 16:39 Initial Consult Date 04/18/17 Type of Consultation: cardiology Reason for Consultation HTN/AFL Referring Provider: PORTIA OLIVER MD Exam/Review of Systems Vital Signs Vitals Vital Signs Date Time Temp Pulse Resp B/P Pulse Ox O2 Delivery O2 Flow Rate FiO2 05/28/17 15:00 98.1 85 20 139/67 98 05/28/17 14:45 21 Intake and Output 05/27/17 05/27/17 05/28/17 15:00 23:00 07:00 Intake Total 1430 ml 710 ml Output Total 1700 ml 275 ml Balance -270 ml 435 ml Exam Review of Systems: CONSTITUTIONAL: No fevers, chills. PULMONARY: No sob CARDIOVASCULAR: No chest pain/palpitations GASTROINTESTINAL: No nausea/vomiting. GENITOURINARY: No hematuria/dysuria. MUSCULOSKELETAL: No myagias/arthalgias. PSYCHIATRIC: The patient denies depression. NEUROLOGIC: No weakness Constitutional: other (sleeping) Psych: no complaints Head: normocephalic ENMT: mucosa pink and moist Neck: jvd (9 cm water), supple Respiratory: diminished breath sounds (at bases/B) Cardiovascular: regular rate and rhythm Gastrointestinal: non-tender, soft Musculoskeletal: muscle weakness (generalized) Extremities: edema (none) Neurological: lethargic Results Result Diagram: 05/27/17 0437 05/27/17 0441 Results 24 hrs Laboratory Tests Test 05/27/17 20:29 05/28/17 01:07 05/28/17 04:40 05/28/17 04:41 Bedside Glucose 171 145 77 83 Test 05/28/17 09:43 05/28/17 13:14 05/28/17 17:19 Bedside Glucose 88 125 131 Medications Medications Current Medications Acetaminophen (Tylenol Tab) 650 mg Q6H PRN GTB PAIN AND OR ELEVATED TEMP Last administered on 05/05/17 12:01; Admin Dose 650 MG; Start 04/17/17 at 18:00 Bisacodyl (Dulcolax Supp) 10 mg Q24H [place] Last administered on 05/28/17 17:22; Admin Dose 10 MG; Start 04/17/17 at 18:00 Diphenhydramine HCl (Benadryl) 25 mg Q6H PRN GTB ITCHING Last administered on 05/27/17 20:31; Admin Dose 25 MG; Start 04/17/17 at 18:00 Multivitamins Therapeutic (Theragran) 1 tab DAILY GTB Last administered on 05/28 09:45; Admin Dose 1 TAB; Start 04/18/17 at 09:00 Miscellaneous Information 1 ea NOTE XX ; Start 04/17/17 at 21:00 Glucose (Glutose) 15 gm Q15M PRN PO DECREASED GLUCOSE; Start 04/17/17 at 21:00 Glucose (Glutose) 22.5 gm Q15M PRN PO DECREASED GLUCOSE; Start 04/17/17 at 21: 00 Dextrose (D50w Syringe) 25 ml Q15M PRN IV DECREASED GLUCOSE Last administered on 05/18/17 20:46; Admin Dose 25 ML; Start 04/17/17 at 21:00 Dextrose (D50w Syringe) 50 ml Q15M PRN IV DECREASED GLUCOSE Last administered on 05/06/17 06:24; Admin Dose 50 ML; Start 04/17/17 at 21:00 Glucagon (Glucagen) 1 mg Q15M PRN IM DECREASED GLUCOSE; Start 04/17/17 at 21:00 Glucose (Glutose) 15 gm Q15M PRN BUCCAL DECREASED GLUCOSE; Start 04/17/17 at 21 :00 Ondansetron HCl (Zofran Inj) 4 mg Q6H PRN IV NAUSEA AND/OR VOMITING; Start at 00:30 Metoprolol Tartrate (Lopressor) 25 mg BID PO Last administered on 04/28/17 08: 14; Admin Dose 25 MG; Start 04/23/17 at 09:00; Status Future Hold Hydralazine HCl (Apresoline) 10 mg Q4H PRN IV SBP>170; Start 04/22/17 at 22:00 Nitroglycerin (Nitroglycerin (Sl Tab) 0.4 Mg) 1 tab Q5M PRN SL ANGINA; Start at 18:00 Acetaminophen/ Hydrocodone Bitart ([place] (5/325)) 1 tab Q6H PRN PO PAIN LEVEL 4 -7 Last administered on 05/28/17 00:25; Admin Dose 1 TAB; Start 05/03/17 at 03: 30 Acetaminophen (Tylenol Liquid) 650 mg Q4H PRN GTB PAIN AND OR ELEVATED TEMP Last administered on 05/12/17 18:12; Admin Dose 650 MG; Start 05/03/17 at 03:30 Zinc Acetate/ Diphenhydramine (Benadryl 2% Cr) 1 applic Q8 PRN TOP ITCHING Last administered on 05/18/17 03:31; Admin Dose 1 APPLIC; Start 05/07/17 at 11: 00 Lansoprazole (Prevacid) 30 mg BID@06,18 GTB Last administered on 05/28/17 17: 22; Admin Dose 30 MG; Start 05/08/17 at 18:00 Clonidine HCl (Catapres-Tts 1 Patch) 1 patch Q7D TRANSDERM Last administered on 05/22/17 15:08; Admin Dose 1 PATCH; Start 05/08/17 at 15:00 Epoetin Taqueria (Epogen (Esrd)) 2,000 units MoWeFr@17 [place] Last administered on 05/28 17:22; Admin Dose 2,000 UNITS; Start 05/17/17 at 17:00 Alprazolam (Xanax) 0.5 mg Q6H PRN JT ANXIETY Last administered on 05/27/17 20: 31; Admin Dose 0.5 MG; Start 05/19/17 at 18:30 Hydralazine HCl (Apresoline) 50 mg Q6H PRN GTB ABOVE 160; Start 05/23/17 at 12: 00 Amlodipine Besylate (Norvasc) 5 mg BID GTB Last administered on 05/28/17 09:45 ; Admin Dose 5 MG; Start 05/23/17 at 21:00 Metoclopramide HCl (Reglan) 5 mg TID PRN IV NAUSEA; Start 05/25/17 at 13:00 Insulin Aspart (Novolog Insulin Pen) (Adult SC Insulin - Mild Algorithm)... Q4 [place] Last administered on 05/28/17 01:11; Admin Dose 1 UNIT; Start 05/24/17 at 17:00 Insulin Glargine (Lantus) 17 unit QHS [place] Last administered on 05/27/17 20:49; Admin Dose 17 UNIT; Start 05/25/17 at 21:00 LESLI SHEA May 28, 2017 17:56
--- NOTE | 2017-05-28 18:15 | RADRPT ---
PROCEDURE: XR Chest. CLINICAL INDICATION: Shortness of breath. TECHNIQUE: Single frontal view. COMPARISON: 05/07/2017. FINDINGS: There is a tunneled right internal jugular vein dialysis catheter with the tip in the upper right at rium in satisfactory position. The lungs are clear. The heart size is normal. There is calcification in the aorta consistent with atherosclerosis. There is no pleural effusion. There is no pneumothorax. IMPRESSION: 1. Dialysis catheter in satisfactory position. 2. Atherosclerosis. 3. Clear lungs. RPTAT: QQ .Allen Mackey MD, MD Date Time Electronically viewed and signed by .Allen Mackey MD, MD on 05/28/2017 18:15 .R/
[2017-05-28] MEDS: CLONIDINE 0.2 MG/24 HR PATCH TRANSDERM SCH (18:51)
[2017-05-28 20:02] VITALS: BP 159/76; RESP 20
[2017-05-28] MEDS: INSULIN GLARGINE [LANtus] 3 ML PEN SC SCH ×2 (21:00→22:02)
[2017-05-29] VITALS (12 sets, daily range): BP systolic 95–127; BP diastolic 50–71; PULSE 69–93; RESP 17–18
[2017-05-29] MEDS: INSULIN ASPART [NOVOLOG] 3 ML PEN SC SCH ×6 (01:31→21:15)
[2017-05-29] MEDS: ALBUTEROL/IPRATROPIUM (NEB) 3 ML AMP HHN SCH ×4 (02:00→19:25)
[2017-05-29] MEDS: LANSOPRAZOLE 30 MG CAP GTB SCH ×2 (05:24→17:26)
[2017-05-29 05:32] LABS: BASOPHIL # 0.1 10^3/ul (0.0-0.1); EOSINOPHILS # 0.8 10^3/ul (0.0-0.5); EOSINOPHILS % 7.5 % (0.0-7.0); HEMATOCRIT 29.4 % (42.0-52.0); LYMPHOCYTES # 1.9 10^3/ul (0.8-2.9); LYMPHOCYTES % 17.1 % (15.0-51.0); MEAN CORPUSCULAR HGB CONC 30.6 g/dl (32.0-37.0); MEAN CORPUSCULAR VOLUME 94.8 fl (82.0-101.0); MEAN PLATELET VOLUME 12.4 fl (7.4-10.4); MONOCYTE # 0.7 10^3/ul (0.3-0.9); MONOCYTES % 6.3 % (0.0-11.0); NEUTROPHIL # 7.5 10^3/ul (1.6-7.5); NEUTROPHILS % 67.8 % (39.0-77.0); PLATELET COUNT 169 10^3/UL (140-415); RED CELL DISTRIBUTION WIDTH 19.5 % (11.5-14.5)
[2017-05-29 05:55] LABS: CALCIUM 8.6 mg/dl (8.4-10.2); CREATININE 2.72 mg/dl (0.61-1.24); POTASSIUM 3.9 mmol/L (3.5-5.1)
[2017-05-29] MEDS: MULTIVITAMINS THERAPEUTIC TAB GTB SCH (08:33)
[2017-05-29] MEDS: AMLODIPINE 5 MG TAB GTB SCH ×2 (08:34→21:00)
--- NOTE | 2017-05-29 13:54 | PN ---
Date/Time of Note Date/Time of Note DATE: 05/29/17 TIME: 13:50 Assessment/Plan VTE Prophylaxis VTE Prophylaxis Intervention: other Lines/Catheters IV [facility] PERMACATH Urinary Cath still in place: Yes Assessment/Plan Assessment/Plan - Acute kidney injury on chronic kidney disease. Continue hemodialysis per renal. Dr. Cheema is following in nephrology consultation. - Protein calorie malnutrition, increase G-tube feeding according to coffee grower recommendations - Status post post urinary tract infection. - History of cerebrovascular accident - Diabetes mellitus. Continue Lantus and NovoLog. - Diastolic congestive heart failure. Continue to monitor intake and output. - Paroxysmal atrial fibrillation, currently in sinus rhythm. - Hypertension. Continue Norvasc. - Hyperlipidemia. Continue statin. - Urinary retention with Flores catheter. - Dysphagia, status post PEG placement - Anemia of chronic disease, continue Epogen. 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 Plan of care discussed with Dr. Patel Subjective 24 Hr Interval Summary Free Text/Dictation afebrile, pending placement- mno new issues Cardiovascular: edema, no complaints Exam/Review of Systems Vital Signs Vitals Vital Signs Date Time Temp Pulse Resp B/P Pulse Ox O2 Delivery O2 Flow Rate FiO2 05/29/17 08:54 84 20 21 05/29/17 07:56 98.7 117/71 98 Intake and Output 05/28/17 05/28/17 05/29/17 15:00 23:00 07:00 Intake Total 690 ml 690 ml Output Total 400 ml 400 ml Balance 290 ml 290 ml Exam Constitutional: alert Respiratory: clear to auscultation, diminished breath sounds Gastrointestinal: non-tender, other, soft Musculoskeletal: nl extremities to inspection Extremities: normal pulses Neurological: nl speech Results Result Diagram: 05/29/17 0449 05/29/17 0449 Results 24 hrs Laboratory Tests Test 05/28/17 17:19 05/28/17 21:07 05/29/17 01:27 05/29/17 04:49 Bedside Glucose 131 111 197 White Blood Count 11.0 H Red Blood Count 3.10 L Hemoglobin 9.0 L Hematocrit 29.4 L Mean Corpuscular Volume 94.8 Mean Corpuscular Hemoglobin 29.0 Mean Corpuscular Hemoglobin Concent 30.6 L Red Cell Distribution Width 19.5 H Platelet Count 169 Mean Platelet Volume 12.4 H Neutrophils % 67.8 Lymphocytes % 17.1 Monocytes % 6.3 Eosinophils % 7.5 H Basophils % 1.0 Nucleated Red Blood Cells % 0.0 Neutrophils # 7.5 Lymphocytes # 1.9 Monocytes # 0.7 Eosinophils # 0.8 H Basophils # 0.1 Nucleated Red Blood Cells # 0.0 Sodium Level 139 Potassium Level 3.9 Chloride Level 101 Carbon Dioxide Level 29 Anion Gap 13 Blood Urea Nitrogen 74 H Creatinine 2.72 H Glucose Level 200 Calcium Level 8.6 Test 05/29/17 05:25 05/29/17 09:14 05/29/17 13:08 Bedside Glucose 188 137 191 Medications Medications Current Medications Acetaminophen (Tylenol Tab) 650 mg Q6H PRN GTB PAIN AND OR ELEVATED TEMP Last administered on 05/05/17 12:01; Admin Dose 650 MG; Start 04/17/17 at 18:00 Bisacodyl (Dulcolax Supp) 10 mg Q24H [place] Last administered on 05/28/17 17:22; Admin Dose 10 MG; Start 04/17/17 at 18:00 Diphenhydramine HCl (Benadryl) 25 mg Q6H PRN GTB ITCHING Last administered on 05/27/17 20:31; Admin Dose 25 MG; Start 04/17/17 at 18:00 Multivitamins Therapeutic (Theragran) 1 tab DAILY GTB Last administered on 05/29 08:33; Admin Dose 1 TAB; Start 04/18/17 at 09:00 Miscellaneous Information 1 ea NOTE XX ; Start 04/17/17 at 21:00 Glucose (Glutose) 15 gm Q15M PRN PO DECREASED GLUCOSE; Start 04/17/17 at 21:00 Glucose (Glutose) 22.5 gm Q15M PRN PO DECREASED GLUCOSE; Start 04/17/17 at 21: 00 Dextrose (D50w Syringe) 25 ml Q15M PRN IV DECREASED GLUCOSE Last administered on 05/18/17 20:46; Admin Dose 25 ML; Start 04/17/17 at 21:00 Dextrose (D50w Syringe) 50 ml Q15M PRN IV DECREASED GLUCOSE Last administered on 05/06/17 06:24; Admin Dose 50 ML; Start 04/17/17 at 21:00 Glucagon (Glucagen) 1 mg Q15M PRN IM DECREASED GLUCOSE; Start 04/17/17 at 21:00 Glucose (Glutose) 15 gm Q15M PRN BUCCAL DECREASED GLUCOSE; Start 04/17/17 at 21 :00 Ondansetron HCl (Zofran Inj) 4 mg Q6H PRN IV NAUSEA AND/OR VOMITING; Start at 00:30 Metoprolol Tartrate (Lopressor) 25 mg BID PO Last administered on 04/28/17 08: 14; Admin Dose 25 MG; Start 04/23/17 at 09:00; Status Future Hold Hydralazine HCl (Apresoline) 10 mg Q4H PRN IV SBP>170; Start 04/22/17 at 22:00 Nitroglycerin (Nitroglycerin (Sl Tab) 0.4 Mg) 1 tab Q5M PRN SL ANGINA; Start at 18:00 Acetaminophen/ Hydrocodone Bitart ([place] (5/325)) 1 tab Q6H PRN PO PAIN LEVEL 4 -7 Last administered on 05/28/17 00:25; Admin Dose 1 TAB; Start 05/03/17 at 03: 30 Acetaminophen (Tylenol Liquid) 650 mg Q4H PRN GTB PAIN AND OR ELEVATED TEMP Last administered on 05/12/17 18:12; Admin Dose 650 MG; Start 05/03/17 at 03:30 Zinc Acetate/ Diphenhydramine (Benadryl 2% Cr) 1 applic Q8 PRN TOP ITCHING Last administered on 05/18/17 03:31; Admin Dose 1 APPLIC; Start 05/07/17 at 11: 00 Lansoprazole (Prevacid) 30 mg BID@06,18 GTB Last administered on 05/29/17 05: 24; Admin Dose 30 MG; Start 05/08/17 at 18:00 Epoetin Taqueria (Epogen (Esrd)) 2,000 units MoWeFr@17 [place] Last administered on 05/28 17:22; Admin Dose 2,000 UNITS; Start 05/17/17 at 17:00 Alprazolam (Xanax) 0.5 mg Q6H PRN JT ANXIETY Last administered on 05/27/17 20: 31; Admin Dose 0.5 MG; Start 9/27/17 at 18:30 Hydralazine HCl (Apresoline) 50 mg Q6H PRN GTB ABOVE 160; Start 05/23/17 at 12: 00 Amlodipine Besylate (Norvasc) 5 mg BID GTB Last administered on 05/29/17 08:34 ; Admin Dose 5 MG; Start 05/23/17 at 21:00 Metoclopramide HCl (Reglan) 5 mg TID PRN IV NAUSEA; Start 05/25/17 at 13:00 Insulin Aspart (Novolog Insulin Pen) (Adult SC Insulin - Mild Algorithm)... Q4 [place] Last administered on 05/29/17 13:16; Admin Dose 2 UNIT; Start 05/24/17 at 17:00 Clonidine HCl (Catapres-Tts 2 Patch) 1 patch Q7D TRANSDERM Last administered on 05/28/17 18:51; Admin Dose 1 PATCH; Start 05/28/17 at 18:00 Insulin Glargine (Lantus) 14 unit QHS@21 [place] Last administered on 05/28/17 22: 02; Admin Dose 14 UNIT; Start 05/28/17 at 21:30 MARCY WEINER May 29, 2017 13:54
--- NOTE | 2017-05-29 16:30 | CONS ---
Date/Time of Note Date/Time of Note DATE: 05/29/17 TIME: 16:24 Assessment/Plan Assessment/Plan Additional Assessment/Plan Atypical chest pain resolved CHF clinically compensated Hypertension PAF in NSR Renal failure second degree heart block [place] 1 UTI Anemia Continue clondine TTS Continue Norvasc Continue Insulin No AV Annette Blockers HD as scheduled Consultation Date/Type/Reason Admit Date/Time Apr 17, 2017 at 16:39 Constitutional: improved Respiratory: no complaints Cardiovascular: edema, no complaints Gastrointestinal: no complaints Genitourinary: no complaints Musculoskeletal: no complaints Psychological: no complaints Past Surgical History Past Surgical Hx: noncontributory Social History Alcohol Use: none Smoking Status: Never smoker Drug Use: none Exam/Review of Systems Vital Signs Vitals Vital Signs Date Time Temp Pulse Resp B/P Pulse Ox O2 Delivery O2 Flow Rate FiO2 05/29/17 14:01 80 18 96 21 05/29/17 07:56 98.7 117/71 Intake and Output 05/28/17 05/28/17 05/29/17 15:00 23:00 07:00 Intake Total 690 ml 690 ml Output Total 400 ml 400 ml Balance 290 ml 290 ml Exam Constitutional: other (lethargic) Head: atraumatic, normocephalic Neck: non-tender, supple Respiratory: clear to auscultation Cardiovascular: regular rate and rhythm Gastrointestinal: nl liver, spleen, non-tender, soft Extremities: normal pulses Results Result Diagram: 05/29/17 0449 05/29/17 0449 Results 24 hrs Laboratory Tests Test 05/28/17 17:19 05/28/17 21:07 05/29/17 01:27 05/29/17 04:49 Bedside Glucose 131 111 197 White Blood Count 11.0 H Red Blood Count 3.10 L Hemoglobin 9.0 L Hematocrit 29.4 L Mean Corpuscular Volume 94.8 Mean Corpuscular Hemoglobin 29.0 Mean Corpuscular Hemoglobin Concent 30.6 L Red Cell Distribution Width 19.5 H Platelet Count 169 Mean Platelet Volume 12.4 H Neutrophils % 67.8 Lymphocytes % 17.1 Monocytes % 6.3 Eosinophils % 7.5 H Basophils % 1.0 Nucleated Red Blood Cells % 0.0 Neutrophils # 7.5 Lymphocytes # 1.9 Monocytes # 0.7 Eosinophils # 0.8 H Basophils # 0.1 Nucleated Red Blood Cells # 0.0 Sodium Level 139 Potassium Level 3.9 Chloride Level 101 Carbon Dioxide Level 29 Anion Gap 13 Blood Urea Nitrogen 74 H Creatinine 2.72 H Glucose Level 200 Calcium Level 8.6 Test 05/29/17 05:25 05/29/17 09:14 05/29/17 13:08 Bedside Glucose 188 137 191 Medications Medications Current Medications Acetaminophen (Tylenol Tab) 650 mg Q6H PRN GTB PAIN AND OR ELEVATED TEMP Last administered on 05/05/17 12:01; Admin Dose 650 MG; Start 04/17/17 at 18:00 Bisacodyl (Dulcolax Supp) 10 mg Q24H [place] Last administered on 05/28/17 17:22; Admin Dose 10 MG; Start 04/17/17 at 18:00 Diphenhydramine HCl (Benadryl) 25 mg Q6H PRN GTB ITCHING Last administered on 05/27/17 20:31; Admin Dose 25 MG; Start 04/17/17 at 18:00 Multivitamins Therapeutic (Theragran) 1 tab DAILY GTB Last administered on 05/29 08:33; Admin Dose 1 TAB; Start 04/18/17 at 09:00 Miscellaneous Information 1 ea NOTE XX ; Start 04/17/17 at 21:00 Glucose (Glutose) 15 gm Q15M PRN PO DECREASED GLUCOSE; Start 04/17/17 at 21:00 Glucose (Glutose) 22.5 gm Q15M PRN PO DECREASED GLUCOSE; Start 04/17/17 at 21: 00 Dextrose (D50w Syringe) 25 ml Q15M PRN IV DECREASED GLUCOSE Last administered on 05/18/17 20:46; Admin Dose 25 ML; Start 04/17/17 at 21:00 Dextrose (D50w Syringe) 50 ml Q15M PRN IV DECREASED GLUCOSE Last administered on 05/06/17 06:24; Admin Dose 50 ML; Start 04/17/17 at 21:00 Glucagon (Glucagen) 1 mg Q15M PRN IM DECREASED GLUCOSE; Start 04/17/17 at 21:00 Glucose (Glutose) 15 gm Q15M PRN BUCCAL DECREASED GLUCOSE; Start 04/17/17 at 21 :00 Ondansetron HCl (Zofran Inj) 4 mg Q6H PRN IV NAUSEA AND/OR VOMITING; Start at 00:30 Metoprolol Tartrate (Lopressor) 25 mg BID PO Last administered on 04/28/17 08: 14; Admin Dose 25 MG; Start 04/23/17 at 09:00; Status Future Hold Hydralazine HCl (Apresoline) 10 mg Q4H PRN IV SBP>170; Start 04/22/17 at 22:00 Nitroglycerin (Nitroglycerin (Sl Tab) 0.4 Mg) 1 tab Q5M PRN SL ANGINA; Start at 18:00 Acetaminophen/ Hydrocodone Bitart ([place] (5/325)) 1 tab Q6H PRN PO PAIN LEVEL 4 -7 Last administered on 05/28/17 00:25; Admin Dose 1 TAB; Start 05/03/17 at 03: 30 Acetaminophen (Tylenol Liquid) 650 mg Q4H PRN GTB PAIN AND OR ELEVATED TEMP Last administered on 05/12/17 18:12; Admin Dose 650 MG; Start 05/03/17 at 03:30 Zinc Acetate/ Diphenhydramine (Benadryl 2% Cr) 1 applic Q8 PRN TOP ITCHING Last administered on 05/18/17 03:31; Admin Dose 1 APPLIC; Start 05/07/17 at 11: 00 Lansoprazole (Prevacid) 30 mg BID@06,18 GTB Last administered on 05/29/17 05: 24; Admin Dose 30 MG; Start 05/08/17 at 18:00 Epoetin Taqueria (Epogen (Esrd)) 2,000 units MoWeFr@17 SC Last administered on 05/28 17:22; Admin Dose 2,000 UNITS; Start 05/17/17 at 17:00 Alprazolam (Xanax) 0.5 mg Q6H PRN JT ANXIETY Last administered on 05/27/17 20: 31; Admin Dose 0.5 MG; Start 05/19/17 at 18:30 Hydralazine HCl (Apresoline) 50 mg Q6H PRN GTB ABOVE 160; Start 05/23/17 at 12: 00 Amlodipine Besylate (Norvasc) 5 mg BID GTB Last administered on 05/29/17 08:34 ; Admin Dose 5 MG; Start 05/23/17 at 21:00 Metoclopramide HCl (Reglan) 5 mg TID PRN IV NAUSEA; Start 05/25/17 at 13:00 Insulin Aspart (Novolog Insulin Pen) (Adult SC Insulin - Mild Algorithm)... Q4 [place] Last administered on 05/29/17 13:16; Admin Dose 2 UNIT; Start 05/24/17 at 17:00 Clonidine HCl (Catapres-Tts 2 Patch) 1 patch Q7D TRANSDERM Last administered on 05/28/17 18:51; Admin Dose 1 PATCH; Start 05/28/17 at 18:00 Insulin Glargine (Lantus) 14 unit QHS@21 SC Last administered on 05/28/17 22: 02; Admin Dose 14 UNIT; Start 05/28/17 at 21:30 MARIA ALEJANDRA BEAL M.D. May 29, 2017 16:30
[2017-05-29] MEDS ORDERED: VITAMIN A & D 5 GM OINT PACKET TOP ONE (17:20)
--- NOTE | 2017-05-29 17:24 | CONS ---
Date/Time of Note Date/Time of Note DATE: 05/29/17 TIME: 17:24 Assessment/Plan Assessment/Plan Chief Complaint/Hosp Course 1. ESRD Hd initiated on 05/06 2.Hypernatremia >improving 3.HTN, controlled 4 Ecoli UTI 5. Sepsis due to #4 6. Chronic Afib 7. CVA s/p G tube placement 8. Renal cyst 9 Hyperphosphatemia. Problems: Additional Assessment/Plan 1. Continue HD Consultation Date/Type/Reason Admit Date/Time Apr 17, 2017 at 16:39 Initial Consult Date 04/18/17 Type of Consultation: nephrology Reason for Consultation Dr Cheema Referring Provider: PORTIA OLIVER MD Exam/Review of Systems Vital Signs Vitals Vital Signs Date Time Temp Pulse Resp B/P Pulse Ox O2 Delivery O2 Flow Rate FiO2 05/29/17 17:00 82 05/29/17 17:00 16 05/29/17 14:01 96 21 05/29/17 14:00 97.2 127/65 Intake and Output 05/28/17 05/28/17 05/29/17 15:00 23:00 07:00 Intake Total 690 ml 690 ml Output Total 400 ml 400 ml Balance 290 ml 290 ml Exam Constitutional: non-verbal Neck: supple Respiratory: clear to auscultation Cardiovascular: regular rate and rhythm Results Result Diagram: 05/29/17 0449 05/29/17 0449 Results 24 hrs Laboratory Tests Test 05/28/17 21:07 05/29/17 01:27 05/29/17 04:49 05/29/17 05:25 Bedside Glucose 111 197 188 White Blood Count 11.0 H Red Blood Count 3.10 L Hemoglobin 9.0 L Hematocrit 29.4 L Mean Corpuscular Volume 94.8 Mean Corpuscular Hemoglobin 29.0 Mean Corpuscular Hemoglobin Concent 30.6 L Red Cell Distribution Width 19.5 H Platelet Count 169 Mean Platelet Volume 12.4 H Neutrophils % 67.8 Lymphocytes % 17.1 Monocytes % 6.3 Eosinophils % 7.5 H Basophils % 1.0 Nucleated Red Blood Cells % 0.0 Neutrophils # 7.5 Lymphocytes # 1.9 Monocytes # 0.7 Eosinophils # 0.8 H Basophils # 0.1 Nucleated Red Blood Cells # 0.0 Sodium Level 139 Potassium Level 3.9 Chloride Level 101 Carbon Dioxide Level 29 Anion Gap 13 Blood Urea Nitrogen 74 H Creatinine 2.72 H Glucose Level 200 Calcium Level 8.6 Test 05/29/17 09:14 05/29/17 13:08 Bedside Glucose 137 191 Medications Medications Current Medications Acetaminophen (Tylenol Tab) 650 mg Q6H PRN GTB PAIN AND OR ELEVATED TEMP Last administered on 05/05/17 12:01; Admin Dose 650 MG; Start 04/17/17 at 18:00 Bisacodyl (Dulcolax Supp) 10 mg Q24H [place] Last administered on 05/28/17 17:22; Admin Dose 10 MG; Start 04/17/17 at 18:00 Diphenhydramine HCl (Benadryl) 25 mg Q6H PRN GTB ITCHING Last administered on 05/27/17 20:31; Admin Dose 25 MG; Start 04/17/17 at 18:00 Multivitamins Therapeutic (Theragran) 1 tab DAILY GTB Last administered on 05/29 08:33; Admin Dose 1 TAB; Start 04/18/17 at 09:00 Miscellaneous Information 1 ea NOTE XX ; Start 04/17/17 at 21:00 Glucose (Glutose) 15 gm Q15M PRN PO DECREASED GLUCOSE; Start 04/17/17 at 21:00 Glucose (Glutose) 22.5 gm Q15M PRN PO DECREASED GLUCOSE; Start 04/17/17 at 21: 00 Dextrose (D50w Syringe) 25 ml Q15M PRN IV DECREASED GLUCOSE Last administered on 05/18/17 20:46; Admin Dose 25 ML; Start 04/17/17 at 21:00 Dextrose (D50w Syringe) 50 ml Q15M PRN IV DECREASED GLUCOSE Last administered on 05/06/17 06:24; Admin Dose 50 ML; Start 04/17/17 at 21:00 Glucagon (Glucagen) 1 mg Q15M PRN IM DECREASED GLUCOSE; Start 04/17/17 at 21:00 Glucose (Glutose) 15 gm Q15M PRN BUCCAL DECREASED GLUCOSE; Start 04/17/17 at 21 :00 Ondansetron HCl (Zofran Inj) 4 mg Q6H PRN IV NAUSEA AND/OR VOMITING; Start at 00:30 Metoprolol Tartrate (Lopressor) 25 mg BID PO Last administered on 04/28/17 08: 14; Admin Dose 25 MG; Start 04/23/17 at 09:00; Status Future Hold Hydralazine HCl (Apresoline) 10 mg Q4H PRN IV SBP>170; Start 04/22/17 at 22:00 Nitroglycerin (Nitroglycerin (Sl Tab) 0.4 Mg) 1 tab Q5M PRN SL ANGINA; Start at 18:00 Acetaminophen/ Hydrocodone Bitart ([place] (5/325)) 1 tab Q6H PRN PO PAIN LEVEL 4 -7 Last administered on 05/28/17 00:25; Admin Dose 1 TAB; Start 05/03/17 at 03: 30 Acetaminophen (Tylenol Liquid) 650 mg Q4H PRN GTB PAIN AND OR ELEVATED TEMP Last administered on 05/12/17 18:12; Admin Dose 650 MG; Start 05/03/17 at 03:30 Zinc Acetate/ Diphenhydramine (Benadryl 2% Cr) 1 applic Q8 PRN TOP ITCHING Last administered on 05/18/17 03:31; Admin Dose 1 APPLIC; Start 05/07/17 at 11: 00 Lansoprazole (Prevacid) 30 mg BID@06,18 GTB Last administered on 05/29/17 05: 24; Admin Dose 30 MG; Start 05/08/17 at 18:00 Epoetin Taqueria (Epogen (Esrd)) 2,000 units MoWeFr@17 [place] Last administered on 05/28 17:22; Admin Dose 2,000 UNITS; Start 05/17/17 at 17:00 Alprazolam (Xanax) 0.5 mg Q6H PRN JT ANXIETY Last administered on 05/27/17 20: 31; Admin Dose 0.5 MG; Start 05/19/17 at 18:30 Hydralazine HCl (Apresoline) 50 mg Q6H PRN GTB ABOVE 160; Start 05/23/17 at 12: 00 Amlodipine Besylate (Norvasc) 5 mg BID GTB Last administered on 05/29/17 08:34 ; Admin Dose 5 MG; Start 05/23/17 at 21:00 Metoclopramide HCl (Reglan) 5 mg TID PRN IV NAUSEA; Start 10/3/17 at 13:00 Insulin Aspart (Novolog Insulin Pen) (Adult SC Insulin - Mild Algorithm)... Q4 [place] Last administered on 05/29/17 13:16; Admin Dose 2 UNIT; Start 05/24/17 at 17:00 Clonidine HCl (Catapres-Tts 2 Patch) 1 patch Q7D TRANSDERM Last administered on 05/28/17 18:51; Admin Dose 1 PATCH; Start 05/28/17 at 18:00 Insulin Glargine (Lantus) 14 unit QHS@21 [place] Last administered on 05/28/17 22: 02; Admin Dose 14 UNIT; Start 05/28/17 at 21:30 CHELSIE HERNÁNDEZ May 29, 2017 17:24
[2017-05-29] MEDS: HYDROCODONE/APAP (5/325) TAB PO PRN (17:25)
[2017-05-29] MEDS: BISACODYL 10 MG SUPP PR SCH (17:26)
[2017-05-29] MEDS: INSULIN GLARGINE [LANtus] 3 ML PEN SC SCH (21:16)
[2017-05-30] MEDS: INSULIN ASPART [NOVOLOG] 3 ML PEN SC SCH ×6 (01:15→21:20)
[2017-05-30] MEDS: ALBUTEROL/IPRATROPIUM (NEB) 3 ML AMP HHN SCH ×4 (01:34→19:58)
[2017-05-30 04:34] VITALS: BP_SYST 118
[2017-05-30 04:35] VITALS: BP 116/60; RESP 18
[2017-05-30] MEDS: LANSOPRAZOLE 30 MG CAP GTB SCH ×2 (05:06→17:41)
[2017-05-30 05:22] LABS: ABNORMAL IP MESSAGE 1; BASOPHIL # 0.1 10^3/ul (0.0-0.1); EOSINOPHILS # 1.1 10^3/ul (0.0-0.5); EOSINOPHILS % 11.1 % (0.0-7.0); HEMATOCRIT 28.7 % (42.0-52.0); LYMPHOCYTES # 1.6 10^3/ul (0.8-2.9); LYMPHOCYTES % 15.9 % (15.0-51.0); MEAN CORPUSCULAR HEMOGLOBIN 29.6 pg (29.0-33.0); MEAN CORPUSCULAR HGB CONC 31.4 g/dl (32.0-37.0); MEAN CORPUSCULAR VOLUME 94.4 fl (82.0-101.0); MEAN PLATELET VOLUME 13.1 fl (7.4-10.4); MONOCYTE # 0.8 10^3/ul (0.3-0.9); MONOCYTES % 8.1 % (0.0-11.0); NEUTROPHIL # 6.2 10^3/ul (1.6-7.5); NEUTROPHILS % 63.5 % (39.0-77.0); POSITIVE DIFF @See below; RED BLOOD COUNT 3.04 10^6/ul (4.70-6.10); RED CELL DISTRIBUTION WIDTH 19.4 % (11.5-14.5); WHITE BLOOD COUNT 9.8 10^3/ul (4.8-10.8)
[2017-05-30 05:45] LABS: CALCIUM 8.5 mg/dl (8.4-10.2); CREATININE 2.17 mg/dl (0.61-1.24); POTASSIUM 3.5 mmol/L (3.5-5.1)
[2017-05-30 06:06] LABS: PLATELET COUNT 132 10^3/UL (140-415)
[2017-05-30 07:22] VITALS: BP 113/58; RESP 19
[2017-05-30] MEDS: AMLODIPINE 5 MG TAB GTB SCH ×2 (09:25→21:18)
[2017-05-30] MEDS: MULTIVITAMINS THERAPEUTIC TAB GTB SCH (09:25)
--- NOTE | 2017-05-30 13:15 | PN ---
Date/Time of Note Date/Time of Note DATE: 05/30/17 TIME: 13:13 Assessment/Plan VTE Prophylaxis VTE Prophylaxis Intervention: other Lines/Catheters IV [facility] Type ([facility] PERM.CATH Urinary Cath still in place: Yes Assessment/Plan Assessment/Plan - Acute kidney injury on chronic kidney disease. Continue hemodialysis per renal. Dr. Cheema is following in nephrology consultation. - Protein calorie malnutrition, increase G-tube feeding according to veneer sample maker recommendations - Status post post urinary tract infection. - History of cerebrovascular accident - Diabetes mellitus. Continue Lantus and NovoLog. - Diastolic congestive heart failure. Continue to monitor intake and output. - Paroxysmal atrial fibrillation, currently in sinus rhythm. - Hypertension. Continue Norvasc. - Hyperlipidemia. Continue statin. - Urinary retention with Flores catheter. - Dysphagia, status post PEG placement - Anemia of chronic disease, continue Epogen. 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 Plan of care discussed with Dr. Patel Subjective 24 Hr Interval Summary Free Text/Dictation afebrile, sitter needed at bed side, pulls lines pending placement- no new issues per staff Constitutional: requiring O2 Respiratory: no complaints Cardiovascular: no complaints Gastrointestinal: no complaints Genitourinary: no complaints Exam/Review of Systems Vital Signs Vitals Vital Signs Date Time Temp Pulse Resp B/P Pulse Ox O2 Delivery O2 Flow Rate FiO2 05/30/17 07:25 77 20 99 21 05/30/17 07:22 98.1 113/58 05/29/17 22:00 Room Air Intake and Output 05/29/17 05/29/17 05/30/17 15:00 23:00 07:00 Intake Total 980 ml 670 ml Output Total 1100 ml 100 ml Balance -120 ml 570 ml Exam Constitutional: alert Psych: nl mood/affect Respiratory: clear to auscultation, diminished breath sounds Cardiovascular: nl pulses Gastrointestinal: non-tender, other, soft Musculoskeletal: nl extremities to inspection Extremities: normal pulses Results Result Diagram: 05/30/17 04305/30/17 0430 Results 24 hrs Laboratory Tests Test 05/29/17 17:44 05/29/17 21:11 05/30/17 01:11 05/30/17 04:30 Bedside Glucose 180 223 H 255 H White Blood Count 9.8 Red Blood Count 3.04 L Hemoglobin 9.0 L Hematocrit 28.7 L Mean Corpuscular Volume 94.4 Mean Corpuscular Hemoglobin 29.6 Mean Corpuscular Hemoglobin Concent 31.4 L Red Cell Distribution Width 19.4 H Platelet Count 132 #L Mean Platelet Volume 13.1 H Neutrophils % 63.5 Lymphocytes % 15.9 Monocytes % 8.1 Eosinophils % 11.1 H Basophils % 1.0 Nucleated Red Blood Cells % 0.0 Neutrophils # 6.2 Lymphocytes # 1.6 Monocytes # 0.8 Eosinophils # 1.1 H Basophils # 0.1 Nucleated Red Blood Cells # 0.0 Sodium Level 139 Potassium Level 3.5 Chloride Level 102 Carbon Dioxide Level 30 Anion Gap 11 Blood Urea Nitrogen 52 H Creatinine 2.17 H Glucose Level 152 Calcium Level 8.5 Test 05/30/17 05:04 05/30/17 08:17 05/30/17 12:42 Bedside Glucose 189 190 152 Medications Medications Current Medications Acetaminophen (Tylenol Tab) 650 mg Q6H PRN GTB PAIN AND OR ELEVATED TEMP Last administered on 05/05/17 12:01; Admin Dose 650 MG; Start 04/17/17 at 18:00 Bisacodyl (Dulcolax Supp) 10 mg Q24H [place] Last administered on 05/29/17 17:26; Admin Dose 10 MG; Start 04/17/17 at 18:00 Diphenhydramine HCl (Benadryl) 25 mg Q6H PRN GTB ITCHING Last administered on 05/27/17 20:31; Admin Dose 25 MG; Start 04/17/17 at 18:00 Multivitamins Therapeutic (Theragran) 1 tab DAILY GTB Last administered on 05/30 09:25; Admin Dose 1 TAB; Start 04/18/17 at 09:00 Miscellaneous Information 1 ea NOTE XX ; Start 04/17/17 at 21:00 Glucose (Glutose) 15 gm Q15M PRN PO DECREASED GLUCOSE; Start 04/17/17 at 21:00 Glucose (Glutose) 22.5 gm Q15M PRN PO DECREASED GLUCOSE; Start 04/17/17 at 21: 00 Dextrose (D50w Syringe) 25 ml Q15M PRN IV DECREASED GLUCOSE Last administered on 05/18/17 20:46; Admin Dose 25 ML; Start 04/17/17 at 21:00 Dextrose (D50w Syringe) 50 ml Q15M PRN IV DECREASED GLUCOSE Last administered on 05/06/17 06:24; Admin Dose 50 ML; Start 04/17/17 at 21:00 Glucagon (Glucagen) 1 mg Q15M PRN IM DECREASED GLUCOSE; Start 04/17/17 at 21:00 Glucose (Glutose) 15 gm Q15M PRN BUCCAL DECREASED GLUCOSE; Start 04/17/17 at 21 :00 Ondansetron HCl (Zofran Inj) 4 mg Q6H PRN IV NAUSEA AND/OR VOMITING; Start at 00:30 Metoprolol Tartrate (Lopressor) 25 mg BID PO Last administered on 04/28/17 08: 14; Admin Dose 25 MG; Start 04/23/17 at 09:00; Status Future Hold Hydralazine HCl (Apresoline) 10 mg Q4H PRN IV SBP>170; Start 04/22/17 at 22:00 Nitroglycerin (Nitroglycerin (Sl Tab) 0.4 Mg) 1 tab Q5M PRN SL ANGINA; Start at 18:00 Acetaminophen/ Hydrocodone Bitart ([place] (5/325)) 1 tab Q6H PRN PO PAIN LEVEL 4 -7 Last administered on 05/29/17 17:25; Admin Dose 1 TAB; Start 05/03/17 at 03: 30 Acetaminophen (Tylenol Liquid) 650 mg Q4H PRN GTB PAIN AND OR ELEVATED TEMP Last administered on 05/12/17 18:12; Admin Dose 650 MG; Start 05/03/17 at 03:30 Zinc Acetate/ Diphenhydramine (Benadryl 2% Cr) 1 applic Q8 PRN TOP ITCHING Last administered on 05/18/17 03:31; Admin Dose 1 APPLIC; Start 05/07/17 at 11: 00 Lansoprazole (Prevacid) 30 mg BID@06,18 GTB Last administered on 05/30/17 05: 06; Admin Dose 30 MG; Start 05/08/17 at 18:00 Epoetin Taqueria (Epogen (Esrd)) 2,000 units MoWeFr@17 [place] Last administered on 05/28 17:22; Admin Dose 2,000 UNITS; Start 05/17/17 at 17:00 Alprazolam (Xanax) 0.5 mg Q6H PRN JT ANXIETY Last administered on 05/27/17 20: 31; Admin Dose 0.5 MG; Start 05/19/17 at 18:30 Hydralazine HCl (Apresoline) 50 mg Q6H PRN GTB ABOVE 160; Start 05/23/17 at 12: 00 Amlodipine Besylate (Norvasc) 5 mg BID GTB Last administered on 05/30/17 09:25 ; Admin Dose 5 MG; Start 05/23/17 at 21:00 Metoclopramide HCl (Reglan) 5 mg TID PRN IV NAUSEA; Start 05/25/17 at 13:00 Insulin Aspart (Novolog Insulin Pen) (Adult SC Insulin - Mild Algorithm)... Q4 [place] Last administered on 05/30/17 09:27; Admin Dose 2 UNIT; Start 05/24/17 at 17:00 Clonidine HCl (Catapres-Tts 2 Patch) 1 patch Q7D TRANSDERM Last administered on 05/28/17 18:51; Admin Dose 1 PATCH; Start 05/28/17 at 18:00 Insulin Glargine (Lantus) 14 unit QHS@21 [place] Last administered on 05/29/17 21: 16; Admin Dose 14 UNIT; Start 05/28/17 at 21:30 MARCY WEINER May 30, 2017 13:15
[2017-05-30 13:57] VITALS: BP 123/62; RESP 18
--- NOTE | 2017-05-30 15:26 | CONS ---
Date/Time of Note Date/Time of Note DATE: 05/30/17 TIME: 15:25 Assessment/Plan Assessment/Plan Chief Complaint/Hosp Course 1. ESRD Hd initiated on 05/06 2.Hypernatremia >improving 3.HTN, controlled 4 Ecoli UTI 5. Sepsis due to #4 6. Chronic Afib 7. CVA s/p G tube placement 8. Renal cyst 9 Hyperphosphatemia. Problems: Additional Assessment/Plan 1. continue HD 2. optimization of remaining kidney function Consultation Date/Type/Reason Admit Date/Time Apr 17, 2017 at 16:39 Initial Consult Date 04/18/17 Type of Consultation: nephrology Reason for Consultation Dr Cheema Referring Provider: PORTIA OLIVER MD Exam/Review of Systems Vital Signs Vitals Vital Signs Date Time Temp Pulse Resp B/P Pulse Ox O2 Delivery O2 Flow Rate FiO2 05/30/17 13:57 97.6 79 18 123/62 97 05/30/17 13:22 21 05/29/17 22:00 Room Air Intake and Output 05/29/17 05/29/17 05/30/17 14:59 22:59 06:59 Intake Total 980 ml 670 ml Output Total 1100 ml 100 ml Balance -120 ml 570 ml Exam Constitutional: frail, other (confused) Head: atraumatic, normocephalic Neck: supple Respiratory: diminished breath sounds Cardiovascular: irregular rhythm Gastrointestinal: other (g tube) Skin: other (poor turgor) Results Result Diagram: 05/30/17 0430 05/30/17 0430 Results 24 hrs Laboratory Tests Test 05/29/17 17:44 05/29/17 21:11 05/30/17 01:11 05/30/17 04:30 Bedside Glucose 180 223 H 255 H White Blood Count 9.8 Red Blood Count 3.04 L Hemoglobin 9.0 L Hematocrit 28.7 L Mean Corpuscular Volume 94.4 Mean Corpuscular Hemoglobin 29.6 Mean Corpuscular Hemoglobin Concent 31.4 L Red Cell Distribution Width 19.4 H Platelet Count 132 #L Mean Platelet Volume 13.1 H Neutrophils % 63.5 Lymphocytes % 15.9 Monocytes % 8.1 Eosinophils % 11.1 H Basophils % 1.0 Nucleated Red Blood Cells % 0.0 Neutrophils # 6.2 Lymphocytes # 1.6 Monocytes # 0.8 Eosinophils # 1.1 H Basophils # 0.1 Nucleated Red Blood Cells # 0.0 Sodium Level 139 Potassium Level 3.5 Chloride Level 102 Carbon Dioxide Level 30 Anion Gap 11 Blood Urea Nitrogen 52 H Creatinine 2.17 H Glucose Level 152 Calcium Level 8.5 Test 05/30/17 05:04 05/30/17 08:17 05/30/17 12:42 Bedside Glucose 189 190 152 Medications Medications Current Medications Acetaminophen (Tylenol Tab) 650 mg Q6H PRN GTB PAIN AND OR ELEVATED TEMP Last administered on 05/05/17 12:01; Admin Dose 650 MG; Start 04/17/17 at 18:00 Bisacodyl (Dulcolax Supp) 10 mg Q24H [place] Last administered on 05/29/17 17:26; Admin Dose 10 MG; Start 04/17/17 at 18:00 Diphenhydramine HCl (Benadryl) 25 mg Q6H PRN GTB ITCHING Last administered on 05/27/17 20:31; Admin Dose 25 MG; Start 04/17/17 at 18:00 Multivitamins Therapeutic (Theragran) 1 tab DAILY GTB Last administered on 05/30 09:25; Admin Dose 1 TAB; Start 04/18/17 at 09:00 Miscellaneous Information 1 ea NOTE XX ; Start 04/17/17 at 21:00 Glucose (Glutose) 15 gm Q15M PRN PO DECREASED GLUCOSE; Start 04/17/17 at 21:00 Glucose (Glutose) 22.5 gm Q15M PRN PO DECREASED GLUCOSE; Start 04/17/17 at 21: 00 Dextrose (D50w Syringe) 25 ml Q15M PRN IV DECREASED GLUCOSE Last administered on 05/18/17 20:46; Admin Dose 25 ML; Start 04/17/17 at 21:00 Dextrose (D50w Syringe) 50 ml Q15M PRN IV DECREASED GLUCOSE Last administered on 05/06/17 06:24; Admin Dose 50 ML; Start 04/17/17 at 21:00 Glucagon (Glucagen) 1 mg Q15M PRN IM DECREASED GLUCOSE; Start 04/17/17 at 21:00 Glucose (Glutose) 15 gm Q15M PRN BUCCAL DECREASED GLUCOSE; Start 04/17/17 at 21 :00 Ondansetron HCl (Zofran Inj) 4 mg Q6H PRN IV NAUSEA AND/OR VOMITING; Start at 00:30 Metoprolol Tartrate (Lopressor) 25 mg BID PO Last administered on 04/28/17 08: 14; Admin Dose 25 MG; Start 04/23/17 at 09:00; Status Future Hold Hydralazine HCl (Apresoline) 10 mg Q4H PRN IV SBP>170; Start 04/22/17 at 22:00 Nitroglycerin (Nitroglycerin (Sl Tab) 0.4 Mg) 1 tab Q5M PRN SL ANGINA; Start at 18:00 Acetaminophen/ Hydrocodone Bitart ([place] (5/325)) 1 tab Q6H PRN PO PAIN LEVEL 4 -7 Last administered on 05/29/17 17:25; Admin Dose 1 TAB; Start 05/03/17 at 03: 30 Acetaminophen (Tylenol Liquid) 650 mg Q4H PRN GTB PAIN AND OR ELEVATED TEMP Last administered on 05/12/17 18:12; Admin Dose 650 MG; Start 05/03/17 at 03:30 Zinc Acetate/ Diphenhydramine (Benadryl 2% Cr) 1 applic Q8 PRN TOP ITCHING Last administered on 05/18/17 03:31; Admin Dose 1 APPLIC; Start 05/07/17 at 11: 00 Lansoprazole (Prevacid) 30 mg BID@06,18 GTB Last administered on 05/30/17 05: 06; Admin Dose 30 MG; Start 05/08/17 at 18:00 Epoetin Taqueria (Epogen (Esrd)) 2,000 units MoWeFr@17 [place] Last administered on 05/28 17:22; Admin Dose 2,000 UNITS; Start 05/17/17 at 17:00 Alprazolam (Xanax) 0.5 mg Q6H PRN JT ANXIETY Last administered on 05/27/17 20: 31; Admin Dose 0.5 MG; Start 05/19/17 at 18:30 Hydralazine HCl (Apresoline) 50 mg Q6H PRN GTB ABOVE 160; Start 05/23/17 at 12: 00 Amlodipine Besylate (Norvasc) 5 mg BID GTB Last administered on 05/30/17 09:25 ; Admin Dose 5 MG; Start 05/23/17 at 21:00 Metoclopramide HCl (Reglan) 5 mg TID PRN IV NAUSEA; Start 05/25/17 at 13:00 Insulin Aspart (Novolog Insulin Pen) (Adult SC Insulin - Mild Algorithm)... Q4 [place] Last administered on 05/30/17 13:17; Admin Dose 1 UNIT; Start 05/24/17 at 17:00 Clonidine HCl (Catapres-Tts 2 Patch) 1 patch Q7D TRANSDERM Last administered on 05/28/17 18:51; Admin Dose 1 PATCH; Start 05/28/17 at 18:00 Insulin Glargine (Lantus) 14 unit QHS@21 [place] Last administered on 05/29/17 21: 16; Admin Dose 14 UNIT; Start 05/28/17 at 21:30 CHELSIE HERNÁNDEZ May 30, 2017 15:26
--- NOTE | 2017-05-30 16:11 | CONS ---
Date/Time of Note Date/Time of Note DATE: 05/30/17 TIME: 16:09 Assessment/Plan Assessment/Plan Additional Assessment/Plan Atypical chest pain resolved CHF clinically compensated Hypertension PAF in NSR Renal failure second degree heart block Mobitz 1 UTI Anemia Hemodynamically stable Continue clonidine TTS Continue Norvasc Continue Insulin No AV Annette Blockers HD as scheduled Consultation Date/Type/Reason Admit Date/Time Apr 17, 2017 at 16:39 Initial Consult Date 04/18/17 Type of Consultation: nephrology Referring Provider: PORTIA OLIVER MD Exam/Review of Systems Vital Signs Vitals Vital Signs Date Time Temp Pulse Resp B/P Pulse Ox O2 Delivery O2 Flow Rate FiO2 05/30/17 13:57 97.6 79 18 123/62 97 05/30/17 13:22 21 05/29/17 22:00 Room Air Intake and Output 05/29/17 05/29/17 05/30/17 15:00 23:00 07:00 Intake Total 980 ml 670 ml Output Total 1100 ml 100 ml Balance -120 ml 570 ml Exam Constitutional: other (lethargic) Head: atraumatic, normocephalic Neck: non-tender, supple Respiratory: clear to auscultation Cardiovascular: regular rate and rhythm Gastrointestinal: nl liver, spleen, non-tender, soft Extremities: normal pulses Results Result Diagram: 05/30/17 0430 05/30/17 0430 Results 24 hrs Laboratory Tests Test 05/29/17 17:44 05/29/17 21:11 05/30/17 01:11 05/30/17 04:30 Bedside Glucose 180 223 H 255 H White Blood Count 9.8 Red Blood Count 3.04 L Hemoglobin 9.0 L Hematocrit 28.7 L Mean Corpuscular Volume 94.4 Mean Corpuscular Hemoglobin 29.6 Mean Corpuscular Hemoglobin Concent 31.4 L Red Cell Distribution Width 19.4 H Platelet Count 132 #L Mean Platelet Volume 13.1 H Neutrophils % 63.5 Lymphocytes % 15.9 Monocytes % 8.1 Eosinophils % 11.1 H Basophils % 1.0 Nucleated Red Blood Cells % 0.0 Neutrophils # 6.2 Lymphocytes # 1.6 Monocytes # 0.8 Eosinophils # 1.1 H Basophils # 0.1 Nucleated Red Blood Cells # 0.0 Sodium Level 139 Potassium Level 3.5 Chloride Level 102 Carbon Dioxide Level 30 Anion Gap 11 Blood Urea Nitrogen 52 H Creatinine 2.17 H Glucose Level 152 Calcium Level 8.5 Test 05/30/17 05:04 05/30/17 08:17 05/30/17 12:42 Bedside Glucose 189 190 152 Medications Medications Current Medications Acetaminophen (Tylenol Tab) 650 mg Q6H PRN GTB PAIN AND OR ELEVATED TEMP Last administered on 05/05/17 12:01; Admin Dose 650 MG; Start 04/17/17 at 18:00 Bisacodyl (Dulcolax Supp) 10 mg Q24H [place] Last administered on 05/29/17 17:26; Admin Dose 10 MG; Start 04/17/17 at 18:00 Diphenhydramine HCl (Benadryl) 25 mg Q6H PRN GTB ITCHING Last administered on 05/27/17 20:31; Admin Dose 25 MG; Start 04/17/17 at 18:00 Multivitamins Therapeutic (Theragran) 1 tab DAILY GTB Last administered on 05/30 09:25; Admin Dose 1 TAB; Start 04/18/17 at 09:00 Miscellaneous Information 1 ea NOTE XX ; Start 04/17/17 at 21:00 Glucose (Glutose) 15 gm Q15M PRN PO DECREASED GLUCOSE; Start 04/17/17 at 21:00 Glucose (Glutose) 22.5 gm Q15M PRN PO DECREASED GLUCOSE; Start 04/17/17 at 21: 00 Dextrose (D50w Syringe) 25 ml Q15M PRN IV DECREASED GLUCOSE Last administered on 05/18/17 20:46; Admin Dose 25 ML; Start 04/17/17 at 21:00 Dextrose (D50w Syringe) 50 ml Q15M PRN IV DECREASED GLUCOSE Last administered on 05/06/17 06:24; Admin Dose 50 ML; Start 04/17/17 at 21:00 Glucagon (Glucagen) 1 mg Q15M PRN IM DECREASED GLUCOSE; Start 04/17/17 at 21:00 Glucose (Glutose) 15 gm Q15M PRN BUCCAL DECREASED GLUCOSE; Start 04/17/17 at 21 :00 Ondansetron HCl (Zofran Inj) 4 mg Q6H PRN IV NAUSEA AND/OR VOMITING; Start at 00:30 Metoprolol Tartrate (Lopressor) 25 mg BID PO Last administered on 04/28/17 08: 14; Admin Dose 25 MG; Start 04/23/17 at 09:00; Status Future Hold Hydralazine HCl (Apresoline) 10 mg Q4H PRN IV SBP>170; Start 04/22/17 at 22:00 Nitroglycerin (Nitroglycerin (Sl Tab) 0.4 Mg) 1 tab Q5M PRN SL ANGINA; Start at 18:00 Acetaminophen/ Hydrocodone Bitart ([place] (5/325)) 1 tab Q6H PRN PO PAIN LEVEL 4 -7 Last administered on 05/29/17 17:25; Admin Dose 1 TAB; Start 05/03/17 at 03: 30 Acetaminophen (Tylenol Liquid) 650 mg Q4H PRN GTB PAIN AND OR ELEVATED TEMP Last administered on 05/12/17 18:12; Admin Dose 650 MG; Start 05/03/17 at 03:30 Zinc Acetate/ Diphenhydramine (Benadryl 2% Cr) 1 applic Q8 PRN TOP ITCHING Last administered on 05/18/17 03:31; Admin Dose 1 APPLIC; Start 05/07/17 at 11: 00 Lansoprazole (Prevacid) 30 mg BID@06,18 GTB Last administered on 05/30/17 05: 06; Admin Dose 30 MG; Start 05/08/17 at 18:00 Epoetin Taqueria (Epogen (Esrd)) 2,000 units MoWeFr@17 [place] Last administered on 05/28 17:22; Admin Dose 2,000 UNITS; Start 05/17/17 at 17:00 Alprazolam (Xanax) 0.5 mg Q6H PRN JT ANXIETY Last administered on 05/27/17 20: 31; Admin Dose 0.5 MG; Start 05/19/17 at 18:30 Hydralazine HCl (Apresoline) 50 mg Q6H PRN GTB ABOVE 160; Start 05/23/17 at 12: 00 Amlodipine Besylate (Norvasc) 5 mg BID GTB Last administered on 05/30/17 09:25 ; Admin Dose 5 MG; Start 05/23/17 at 21:00 Metoclopramide HCl (Reglan) 5 mg TID PRN IV NAUSEA; Start 05/25/17 at 13:00 Insulin Aspart (Novolog Insulin Pen) (Adult SC Insulin - Mild Algorithm)... Q4 [place] Last administered on 05/30/17 13:17; Admin Dose 1 UNIT; Start 05/24/17 at 17:00 Clonidine HCl (Catapres-Tts 2 Patch) 1 patch Q7D TRANSDERM Last administered on 05/28/17 18:51; Admin Dose 1 PATCH; Start 05/28/17 at 18:00 Insulin Glargine (Lantus) 14 unit QHS@21 SC Last administered on 05/29/17 21: 16; Admin Dose 14 UNIT; Start 05/28/17 at 21:30 MARIA ALEJANDRA BEAL M.D. May 30, 2017 16:11
[2017-05-30] MEDS: BISACODYL 10 MG SUPP PR SCH (17:41)
[2017-05-30 19:14] VITALS: BP 142/71; RESP 18
[2017-05-30] MEDS: INSULIN GLARGINE [LANtus] 3 ML PEN SC SCH (21:19)
[2017-05-31] MEDS: INSULIN ASPART [NOVOLOG] 3 ML PEN SC SCH ×6 (01:44→21:13)
[2017-05-31 01:48] VITALS: BP 114/57; RESP 18
[2017-05-31] MEDS: ALBUTEROL/IPRATROPIUM (NEB) 3 ML AMP HHN SCH ×4 (03:02→20:00)
[2017-05-31] MEDS: LANSOPRAZOLE 30 MG CAP GTB SCH ×2 (05:06→09:39)
[2017-05-31 05:13] LABS: BASOPHIL # 0.1 10^3/ul (0.0-0.1); BASOPHILS % 0.9 % (0.0-2.0); EOSINOPHILS # 1.8 10^3/ul (0.0-0.5); EOSINOPHILS % 16.1 % (0.0-7.0); HEMATOCRIT 24.9 % (42.0-52.0); HEMOGLOBIN 7.9 g/dl (14.0-18.0); MEAN CORPUSCULAR HEMOGLOBIN 29.2 pg (29.0-33.0); MEAN CORPUSCULAR HGB CONC 31.7 g/dl (32.0-37.0); MEAN CORPUSCULAR VOLUME 91.9 fl (82.0-101.0); MEAN PLATELET VOLUME 12.8 fl (7.4-10.4); MONOCYTE # 0.8 10^3/ul (0.3-0.9); MONOCYTES % 7.5 % (0.0-11.0); NEUTROPHIL # 6.4 10^3/ul (1.6-7.5); NEUTROPHILS % 57.1 % (39.0-77.0); PLATELET COUNT 157 10^3/UL (140-415); RED BLOOD COUNT 2.71 10^6/ul (4.70-6.10); RED CELL DISTRIBUTION WIDTH 18.8 % (11.5-14.5); WHITE BLOOD COUNT 11.2 10^3/ul (4.8-10.8)
[2017-05-31 05:18] LABS: CALCIUM 8.4 mg/dl (8.4-10.2); CREATININE 2.88 mg/dl (0.61-1.24); POTASSIUM 3.4 mmol/L (3.5-5.1)
[2017-05-31 07:37] VITALS: BP 128/62; RESP 18
[2017-05-31] MEDS ORDERED: POTASSIUM CHLORIDE (SR) 10 MEQ TAB PO ONE (09:30)
[2017-05-31] MEDS: MULTIVITAMINS THERAPEUTIC TAB GTB SCH (09:41)
[2017-05-31] MEDS: AMLODIPINE 5 MG TAB GTB SCH ×2 (09:41→21:08)
[2017-05-31 12:00] VITALS: BP 118/60; PULSE 65; RESP 16
[2017-05-31 14:14] VITALS: BP 110/58; PULSE 67; RESP 16
--- NOTE | 2017-05-31 14:36 | PN ---
Date/Time of Note Date/Time of Note DATE: 05/31/17 TIME: 14:34 Assessment/Plan VTE Prophylaxis VTE Prophylaxis Intervention: SCD's Lines/Catheters IV Catheter Type (from [facility], [place]): [place] Urinary Cath still in place: Yes Reason Cath still needed: urinary retention Assessment/Plan Chief Complaint/Hosp Course Patient remains hemodynamically stable, afebrile, tolerates G-tube feeding well. Patient is impulsive try to remove the HD catheter Assessment/Plan - Acute kidney injury on chronic kidney disease. Continue hemodialysis per renal. Dr. Cheema is following in nephrology consultation. - Protein calorie malnutrition, increase G-tube feeding according to hr shared services consultant recommendations - Status post post urinary tract infection. - History of cerebrovascular accident - Diabetes mellitus. Continue Lantus and NovoLog. - Diastolic congestive heart failure. Continue to monitor intake and output. - Paroxysmal atrial fibrillation, currently in sinus rhythm. - Hypertension. Continue Norvasc. - Hyperlipidemia. Continue statin. - Urinary retention with Flores catheter. - Dysphagia, status post PEG placement - Anemia of chronic disease, continue Epogen. 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 Plan of care discussed with Dr. Patel Problems: Exam/Review of Systems Vital Signs Vitals Vital Signs Date Time Temp Pulse Resp B/P Pulse Ox O2 Delivery O2 Flow Rate FiO2 05/31/17 14:14 98.1 67 16 110/58 Room Air 05/31/17 12:00 99 05/31/17 08:39 21 Intake and Output 05/30/17 05/30/17 05/31/17 15:00 23:00 07:00 Intake Total 480 ml 740 ml Output Total 150 ml 250 ml Balance 330 ml 490 ml Exam Constitutional: alert Neck: supple Respiratory: normal air movement Cardiovascular: nl pulses Gastrointestinal: other, soft Extremities: normal pulses (Tube) Additional Comments Right IJ permacath Results Result Diagram: 05/31/174 05/31/17423 Results 24 hrs Laboratory Tests Test 05/30/17 17:32 05/30/17 21:14 05/31/17 01:40 05/31/17 04:24 Bedside Glucose 224 H 246 H 194 White Blood Count 11.2 H Red Blood Count 2.71 L Hemoglobin 7.9 L Hematocrit 24.9 L Mean Corpuscular Volume 91.9 Mean Corpuscular Hemoglobin 29.2 Mean Corpuscular Hemoglobin Concent 31.7 L Red Cell Distribution Width 18.8 H Platelet Count 157 Mean Platelet Volume 12.8 H Neutrophils % 57.1 Lymphocytes % 18.0 Monocytes % 7.5 Eosinophils % 16.1 H Basophils % 0.9 Nucleated Red Blood Cells % 0.0 Neutrophils # 6.4 Lymphocytes # 2.0 Monocytes # 0.8 Eosinophils # 1.8 H Basophils # 0.1 Nucleated Red Blood Cells # 0.0 Sodium Level 137 Potassium Level 3.4 L Chloride Level 101 Carbon Dioxide Level 28 Anion Gap 11 Blood Urea Nitrogen 78 H Creatinine 2.88 H Glucose Level 158 Calcium Level 8.4 Test 05/31/17 05:03 05/31/17 09:11 05/31/17 13:00 Bedside Glucose 178 152 151 Medications Medications Current Medications Acetaminophen (Tylenol Tab) 650 mg Q6H PRN GTB PAIN AND OR ELEVATED TEMP Last administered on 05/05/17 12:01; Admin Dose 650 MG; Start 04/17/17 at 18:00 Bisacodyl (Dulcolax Supp) 10 mg Q24H [place] Last administered on 05/30/17 17:41; Admin Dose 10 MG; Start 04/17/17 at 18:00 Diphenhydramine HCl (Benadryl) 25 mg Q6H PRN GTB ITCHING Last administered on 05/27/17 20:31; Admin Dose 25 MG; Start 04/17/17 at 18:00 Multivitamins Therapeutic (Theragran) 1 tab DAILY GTB Last administered on 05/31 09:41; Admin Dose 1 TAB; Start 04/18/17 at 09:00 Miscellaneous Information 1 ea NOTE XX ; Start 04/17/17 at 21:00 Glucose (Glutose) 15 gm Q15M PRN PO DECREASED GLUCOSE; Start 04/17/17 at 21:00 Glucose (Glutose) 22.5 gm Q15M PRN PO DECREASED GLUCOSE; Start 04/17/17 at 21: 00 Dextrose (D50w Syringe) 25 ml Q15M PRN IV DECREASED GLUCOSE Last administered on 05/18/17 20:46; Admin Dose 25 ML; Start 04/17/17 at 21:00 Dextrose (D50w Syringe) 50 ml Q15M PRN IV DECREASED GLUCOSE Last administered on 05/06/17 06:24; Admin Dose 50 ML; Start 04/17/17 at 21:00 Glucagon (Glucagen) 1 mg Q15M PRN IM DECREASED GLUCOSE; Start 04/17/17 at 21:00 Glucose (Glutose) 15 gm Q15M PRN BUCCAL DECREASED GLUCOSE; Start 04/17/17 at 21 :00 Ondansetron HCl (Zofran Inj) 4 mg Q6H PRN IV NAUSEA AND/OR VOMITING; Start at 00:30 Metoprolol Tartrate (Lopressor) 25 mg BID PO Last administered on 04/28/17 08: 14; Admin Dose 25 MG; Start 04/23/17 at 09:00; Status Future Hold Hydralazine HCl (Apresoline) 10 mg Q4H PRN IV SBP>170; Start 04/22/17 at 22:00 Nitroglycerin (Nitroglycerin (Sl Tab) 0.4 Mg) 1 tab Q5M PRN SL ANGINA; Start at 18:00 Acetaminophen/ Hydrocodone Bitart ([place] (5/325)) 1 tab Q6H PRN PO PAIN LEVEL 4 -7 Last administered on 05/29/17 17:25; Admin Dose 1 TAB; Start 05/03/17 at 03: 30 Acetaminophen (Tylenol Liquid) 650 mg Q4H PRN GTB PAIN AND OR ELEVATED TEMP Last administered on 05/12/17 18:12; Admin Dose 650 MG; Start 05/03/17 at 03:30 Zinc Acetate/ Diphenhydramine (Benadryl 2% Cr) 1 applic Q8 PRN TOP ITCHING Last administered on 05/18/17 03:31; Admin Dose 1 APPLIC; Start 05/07/17 at 11: 00 Lansoprazole (Prevacid) 30 mg BID@06,18 GTB Last administered on 05/31/17 09: 39; Admin Dose 30 MG; Start 05/08/17 at 18:00 Epoetin Taqueria (Epogen (Esrd)) 2,000 units MoWeFr@17 [place] Last administered on 05/28 17:22; Admin Dose 2,000 UNITS; Start 05/17/17 at 17:00 Alprazolam (Xanax) 0.5 mg Q6H PRN JT ANXIETY Last administered on 05/27/17 20: 31; Admin Dose 0.5 MG; Start 05/19/17 at 18:30 Hydralazine HCl (Apresoline) 50 mg Q6H PRN GTB ABOVE 160; Start 05/23/17 at 12: 00 Amlodipine Besylate (Norvasc) 5 mg BID GTB Last administered on 05/31/17 09:41 ; Admin Dose 5 MG; Start 05/23/17 at 21:00 Metoclopramide HCl (Reglan) 5 mg TID PRN IV NAUSEA; Start 05/25/17 at 13:00 Insulin Aspart (Novolog Insulin Pen) (Adult SC Insulin - Mild Algorithm)... Q4 [place] Last administered on 05/31/17 13:04; Admin Dose 1 UNIT; Start 05/24/17 at 17:00 Clonidine HCl (Catapres-Tts 2 Patch) 1 patch Q7D TRANSDERM Last administered on 05/28/17 18:51; Admin Dose 1 PATCH; Start 05/28/17 at 18:00 Insulin Glargine (Lantus) 14 unit QHS@21 [place] Last administered on 05/30/17 21: 19; Admin Dose 14 UNIT; Start 05/28/17 at 21:30 GEOVANY IBARRA May 31, 2017 14:36
[2017-05-31 15:34] VITALS: BP 118/60; RESP 18
[2017-05-31] MEDS: EPOETIN 2000 UNITS/1 ML INJ (ESRD) SC SCH (17:02)
[2017-05-31] MEDS: BISACODYL 10 MG SUPP PR SCH (17:07)
[2017-05-31 19:02] VITALS: BP 120/56; RESP 18
--- NOTE | 2017-05-31 20:58 | CONS ---
Date/Time of Note Date/Time of Note DATE: 05/31/17 TIME: 20:58 Assessment/Plan Assessment/Plan Chief Complaint/Hosp Course 1 CKD5 2.Hypernatremia HX 3.HTN 4 Ecoli UTI HX 5 Sepsis BETTER 6 Chronic AfibHX 7 CVA s/p G tube placement 8 Renal cyst 9 uremia 10 pul edemaBETTER plan continue HD FOR NOW NEED SNF PLACEMENT KCL Problems: Consultation Date/Type/Reason Admit Date/Time Apr 17, 2017 at 16:39 Type of Consultation: nephrology Referring Provider: PORTIA OLIVER MD 24 HR Interval Summary Constitutional: no complaints Exam/Review of Systems Vital Signs Vitals Vital Signs Date Time Temp Pulse Resp B/P Pulse Ox O2 Delivery O2 Flow Rate FiO2 05/31/17 19:02 97.6 65 18 120/56 99 05/31/17 14:36 21 05/31/17 14:14 Room Air Intake and Output 05/30/17 05/30/17 05/31/17 14:59 22:59 06:59 Intake Total 480 ml 740 ml Output Total 150 ml 250 ml Balance 330 ml 490 ml Exam Respiratory: clear to auscultation Cardiovascular: regular rate and rhythm Gastrointestinal: soft Musculoskeletal: nl extremities to inspection Extremities: normal pulses Results Result Diagram: 05/31/17 0424 05/31/17 0424 Results 24 hrs Laboratory Tests Test 05/30/17 21:14 05/31/17 01:40 05/31/17 04:24 05/31/17 05:03 Bedside Glucose 246 H 194 178 White Blood Count 11.2 H Red Blood Count 2.71 L Hemoglobin 7.9 L Hematocrit 24.9 L Mean Corpuscular Volume 91.9 Mean Corpuscular Hemoglobin 29.2 Mean Corpuscular Hemoglobin Concent 31.7 L Red Cell Distribution Width 18.8 H Platelet Count 157 Mean Platelet Volume 12.8 H Neutrophils % 57.1 Lymphocytes % 18.0 Monocytes % 7.5 Eosinophils % 16.1 H Basophils % 0.9 Nucleated Red Blood Cells % 0.0 Neutrophils # 6.4 Lymphocytes # 2.0 Monocytes # 0.8 Eosinophils # 1.8 H Basophils # 0.1 Nucleated Red Blood Cells # 0.0 Sodium Level 137 Potassium Level 3.4 L Chloride Level 101 Carbon Dioxide Level 28 Anion Gap 11 Blood Urea Nitrogen 78 H Creatinine 2.88 H Glucose Level 158 Calcium Level 8.4 Test 05/31/17 09:11 05/31/17 13:00 05/31/17 17:00 Bedside Glucose 152 151 170 Medications Medications Current Medications Acetaminophen (Tylenol Tab) 650 mg Q6H PRN GTB PAIN AND OR ELEVATED TEMP Last administered on 05/05/17 12:01; Admin Dose 650 MG; Start 04/17/17 at 18:00 Bisacodyl (Dulcolax Supp) 10 mg Q24H [place] Last administered on 05/30/17 17:41; Admin Dose 10 MG; Start 04/17/17 at 18:00 Diphenhydramine HCl (Benadryl) 25 mg Q6H PRN GTB ITCHING Last administered on 05/27/17 20:31; Admin Dose 25 MG; Start 04/17/17 at 18:00 Multivitamins Therapeutic (Theragran) 1 tab DAILY GTB Last administered on 05/31 09:41; Admin Dose 1 TAB; Start 04/18/17 at 09:00 Miscellaneous Information 1 ea NOTE XX ; Start 04/17/17 at 21:00 Glucose (Glutose) 15 gm Q15M PRN PO DECREASED GLUCOSE; Start 04/17/17 at 21:00 Glucose (Glutose) 22.5 gm Q15M PRN PO DECREASED GLUCOSE; Start 04/17/17 at 21: 00 Dextrose (D50w Syringe) 25 ml Q15M PRN IV DECREASED GLUCOSE Last administered on 05/18/17 20:46; Admin Dose 25 ML; Start 04/17/17 at 21:00 Dextrose (D50w Syringe) 50 ml Q15M PRN IV DECREASED GLUCOSE Last administered on 05/06/17 06:24; Admin Dose 50 ML; Start 04/17/17 at 21:00 Glucagon (Glucagen) 1 mg Q15M PRN IM DECREASED GLUCOSE; Start 04/17/17 at 21:00 Glucose (Glutose) 15 gm Q15M PRN BUCCAL DECREASED GLUCOSE; Start 04/17/17 at 21 :00 Ondansetron HCl (Zofran Inj) 4 mg Q6H PRN IV NAUSEA AND/OR VOMITING; Start at 00:30 Metoprolol Tartrate (Lopressor) 25 mg BID PO Last administered on 04/28/17 08: 14; Admin Dose 25 MG; Start 04/23/17 at 09:00; Status Future Hold Hydralazine HCl (Apresoline) 10 mg Q4H PRN IV SBP>170; Start 04/22/17 at 22:00 Nitroglycerin (Nitroglycerin (Sl Tab) 0.4 Mg) 1 tab Q5M PRN SL ANGINA; Start at 18:00 Acetaminophen/ Hydrocodone Bitart ([place] (5/325)) 1 tab Q6H PRN PO PAIN LEVEL 4 -7 Last administered on 05/29/17 17:25; Admin Dose 1 TAB; Start 05/03/17 at 03: 30 Acetaminophen (Tylenol Liquid) 650 mg Q4H PRN GTB PAIN AND OR ELEVATED TEMP Last administered on 05/12/17 18:12; Admin Dose 650 MG; Start 05/03/17 at 03:30 Zinc Acetate/ Diphenhydramine (Benadryl 2% Cr) 1 applic Q8 PRN TOP ITCHING Last administered on 05/18/17 03:31; Admin Dose 1 APPLIC; Start 05/07/17 at 11: 00 Lansoprazole (Prevacid) 30 mg BID@06,18 GTB Last administered on 05/31/17 09: 39; Admin Dose 30 MG; Start 05/08/17 at 18:00 Epoetin Taqueria (Epogen (Esrd)) 2,000 units MoWeFr@17 [place] Last administered on 05/31 17:02; Admin Dose 2,000 UNITS; Start 05/17/17 at 17:00 Alprazolam (Xanax) 0.5 mg Q6H PRN JT ANXIETY Last administered on 05/27/17 20: 31; Admin Dose 0.5 MG; Start 05/19/17 at 18:30 Hydralazine HCl (Apresoline) 50 mg Q6H PRN GTB ABOVE 160; Start 05/23/17 at 12: 00 Amlodipine Besylate (Norvasc) 5 mg BID GTB Last administered on 05/31/17 09:41 ; Admin Dose 5 MG; Start 05/23/17 at 21:00 Metoclopramide HCl (Reglan) 5 mg TID PRN IV NAUSEA; Start 05/25/17 at 13:00 Insulin Aspart (Novolog Insulin Pen) (Adult SC Insulin - Mild Algorithm)... Q4 [place] Last administered on 05/31/17 17:04; Admin Dose 1 UNIT; Start 05/24/17 at 17:00 Clonidine HCl (Catapres-Tts 2 Patch) 1 patch Q7D TRANSDERM Last administered on 05/28/17 18:51; Admin Dose 1 PATCH; Start 05/28/17 at 18:00 Insulin Glargine (Lantus) 14 unit QHS@21 [place] Last administered on 05/30/17 21: 19; Admin Dose 14 UNIT; Start 05/28/17 at 21:30 ABBY RAMOS MD May 31, 2017 20:58
--- NOTE | 2017-05-31 21:05 | CONS ---
Date/Time of Note Date/Time of Note DATE: 05/31/17 TIME: 21:02 Assessment/Plan Assessment/Plan Chief Complaint/Hosp Course IMP: 1.HTN-elevated 2.H/O PAF-Remains in SR at this time by exam 3.renal failure 4.dysphagia 5. AMS 6. Heart [id number] HR.improved with holding BB overall some intermittent recurrence when on Tele still 7. Chest pain-resolved/negative troponin/no change on serial ecg 8. Occasional PVC's-when on tele 9. CHF-diastolic acute on chronic 10.UTI 11.anemia 12. Hyperkalemia-improved s/p kayexalate dose REcc: -Now on med-surg -serial ecg's to document rhythm -Continue clondine TTS and norvasc at current dose and follow BP closely -Continue to Hold BB given wenkebach -Follow volume status closely -HD for volume removal -Follow MS closely Problems: Consultation Date/Type/Reason Admit Date/Time Apr 17, 2017 at 16:39 Initial Consult Date 04/18/17 Type of Consultation: cardiology Reason for Consultation HTN Referring Provider: PORTIA OLIVER MD Exam/Review of Systems Vital Signs Vitals Vital Signs Date Time Temp Pulse Resp B/P Pulse Ox O2 Delivery O2 Flow Rate FiO2 05/31/17 19:02 97.6 65 18 120/56 99 05/31/17 14:36 21 05/31/17 14:14 Room Air Intake and Output 05/30/17 05/30/17 05/31/17 15:00 23:00 07:00 Intake Total 480 ml 740 ml Output Total 150 ml 250 ml Balance 330 ml 490 ml Exam Review of Systems: CONSTITUTIONAL: No fevers, chills. PULMONARY: No sob CARDIOVASCULAR: No chest pain/palpitations GASTROINTESTINAL: No nausea/vomiting. GENITOURINARY: No hematuria/dysuria. MUSCULOSKELETAL: No myagias/arthalgias. PSYCHIATRIC: The patient denies depression. NEUROLOGIC: lethargic Constitutional: other (sleeping) Psych: no complaints Head: normocephalic ENMT: mucosa pink and moist Neck: jvd (8-9 cm water), supple Respiratory: clear to auscultation Cardiovascular: regular rate and rhythm Gastrointestinal: non-tender, soft Musculoskeletal: muscle weakness (generalized) Extremities: edema (none) Neurological: lethargic Results Result Diagram: 05/31/17 0424 05/31/17 0424 Results 24 hrs Laboratory Tests Test 05/30/17 21:14 05/31/17 01:40 05/31/17 04:24 05/31/17 05:03 Bedside Glucose 246 H 194 178 White Blood Count 11.2 H Red Blood Count 2.71 L Hemoglobin 7.9 L Hematocrit 24.9 L Mean Corpuscular Volume 91.9 Mean Corpuscular Hemoglobin 29.2 Mean Corpuscular Hemoglobin Concent 31.7 L Red Cell Distribution Width 18.8 H Platelet Count 157 Mean Platelet Volume 12.8 H Neutrophils % 57.1 Lymphocytes % 18.0 Monocytes % 7.5 Eosinophils % 16.1 H Basophils % 0.9 Nucleated Red Blood Cells % 0.0 Neutrophils # 6.4 Lymphocytes # 2.0 Monocytes # 0.8 Eosinophils # 1.8 H Basophils # 0.1 Nucleated Red Blood Cells # 0.0 Sodium Level 137 Potassium Level 3.4 L Chloride Level 101 Carbon Dioxide Level 28 Anion Gap 11 Blood Urea Nitrogen 78 H Creatinine 2.88 H Glucose Level 158 Calcium Level 8.4 Test 05/31/17 09:11 05/31/17 13:00 05/31/17 17:00 Bedside Glucose 152 151 170 Medications Medications Current Medications Acetaminophen (Tylenol Tab) 650 mg Q6H PRN GTB PAIN AND OR ELEVATED TEMP Last administered on 05/05/17 12:01; Admin Dose 650 MG; Start 04/17/17 at 18:00 Bisacodyl (Dulcolax Supp) 10 mg Q24H [place] Last administered on 05/30/17 17:41; Admin Dose 10 MG; Start 04/17/17 at 18:00 Diphenhydramine HCl (Benadryl) 25 mg Q6H PRN GTB ITCHING Last administered on 05/27/17 20:31; Admin Dose 25 MG; Start 04/17/17 at 18:00 Multivitamins Therapeutic (Theragran) 1 tab DAILY GTB Last administered on 05/31 09:41; Admin Dose 1 TAB; Start 04/18/17 at 09:00 Miscellaneous Information 1 ea NOTE XX ; Start 04/17/17 at 21:00 Glucose (Glutose) 15 gm Q15M PRN PO DECREASED GLUCOSE; Start 04/17/17 at 21:00 Glucose (Glutose) 22.5 gm Q15M PRN PO DECREASED GLUCOSE; Start 04/17/17 at 21: 00 Dextrose (D50w Syringe) 25 ml Q15M PRN IV DECREASED GLUCOSE Last administered on 05/18/17 20:46; Admin Dose 25 ML; Start 04/17/17 at 21:00 Dextrose (D50w Syringe) 50 ml Q15M PRN IV DECREASED GLUCOSE Last administered on 05/06/17 06:24; Admin Dose 50 ML; Start 04/17/17 at 21:00 Glucagon (Glucagen) 1 mg Q15M PRN IM DECREASED GLUCOSE; Start 04/17/17 at 21:00 Glucose (Glutose) 15 gm Q15M PRN BUCCAL DECREASED GLUCOSE; Start 04/17/17 at 21 :00 Ondansetron HCl (Zofran Inj) 4 mg Q6H PRN IV NAUSEA AND/OR VOMITING; Start at 00:30 Metoprolol Tartrate (Lopressor) 25 mg BID PO Last administered on 04/28/17 08: 14; Admin Dose 25 MG; Start 04/23/17 at 09:00; Status Future Hold Hydralazine HCl (Apresoline) 10 mg Q4H PRN IV SBP>170; Start 04/22/17 at 22:00 Nitroglycerin (Nitroglycerin (Sl Tab) 0.4 Mg) 1 tab Q5M PRN SL ANGINA; Start at 18:00 Acetaminophen/ Hydrocodone Bitart ([place] (5/325)) 1 tab Q6H PRN PO PAIN LEVEL 4 -7 Last administered on 05/29/17 17:25; Admin Dose 1 TAB; Start 05/03/17 at 03: 30 Acetaminophen (Tylenol Liquid) 650 mg Q4H PRN GTB PAIN AND OR ELEVATED TEMP Last administered on 05/12/17 18:12; Admin Dose 650 MG; Start 05/03/17 at 03:30 Zinc Acetate/ Diphenhydramine (Benadryl 2% Cr) 1 applic Q8 PRN TOP ITCHING Last administered on 05/18/17 03:31; Admin Dose 1 APPLIC; Start 05/07/17 at 11: 00 Lansoprazole (Prevacid) 30 mg BID@06,18 GTB Last administered on 05/31/17 09: 39; Admin Dose 30 MG; Start 05/08/17 at 18:00 Epoetin Taqueria (Epogen (Esrd)) 2,000 units MoWeFr@17 [place] Last administered on 05/31 17:02; Admin Dose 2,000 UNITS; Start 05/17/17 at 17:00 Alprazolam (Xanax) 0.5 mg Q6H PRN JT ANXIETY Last administered on 05/27/17 20: 31; Admin Dose 0.5 MG; Start 05/19/17 at 18:30 Hydralazine HCl (Apresoline) 50 mg Q6H PRN GTB ABOVE 160; Start 05/23/17 at 12: 00 Amlodipine Besylate (Norvasc) 5 mg BID GTB Last administered on 05/31/17 09:41 ; Admin Dose 5 MG; Start 05/23/17 at 21:00 Metoclopramide HCl (Reglan) 5 mg TID PRN IV NAUSEA; Start 05/25/17 at 13:00 Insulin Aspart (Novolog Insulin Pen) (Adult SC Insulin - Mild Algorithm)... Q4 [place] Last administered on 05/31/17 17:04; Admin Dose 1 UNIT; Start 05/24/17 at 17:00 Clonidine HCl (Catapres-Tts 2 Patch) 1 patch Q7D TRANSDERM Last administered on 05/28/17 18:51; Admin Dose 1 PATCH; Start 05/28/17 at 18:00 Insulin Glargine (Lantus) 14 unit QHS@21 [place] Last administered on 05/30/17 21: 19; Admin Dose 14 UNIT; Start 05/28/17 at 21:30 LESLI SHEA May 31, 2017 21:05
[2017-05-31] MEDS: INSULIN GLARGINE [LANtus] 3 ML PEN SC SCH (21:12)
[2017-06-01] VITALS (8 sets, daily range): BP systolic 80–133; BP diastolic 44–68; PULSE 64–84; RESP 18
[2017-06-01] MEDS: ALBUTEROL/IPRATROPIUM (NEB) 3 ML AMP HHN SCH ×4 (01:10→19:25)
[2017-06-01] MEDS: INSULIN ASPART [NOVOLOG] 3 ML PEN SC SCH ×6 (01:47→20:33)
[2017-06-01 05:20] LABS: ABNORMAL IP MESSAGE 1; BASOPHIL # 0.1 10^3/ul (0.0-0.1); BASOPHILS % 0.8 % (0.0-2.0); EOSINOPHILS # 2.4 10^3/ul (0.0-0.5); EOSINOPHILS % 18.1 % (0.0-7.0); HEMATOCRIT 26.8 % (42.0-52.0); HEMOGLOBIN 8.5 g/dl (14.0-18.0); LYMPHOCYTES # 1.7 10^3/ul (0.8-2.9); MEAN CORPUSCULAR HEMOGLOBIN 29.4 pg (29.0-33.0); MEAN CORPUSCULAR HGB CONC 31.7 g/dl (32.0-37.0); MEAN CORPUSCULAR VOLUME 92.7 fl (82.0-101.0); MEAN PLATELET VOLUME 12.9 fl (7.4-10.4); MONOCYTE # 0.9 10^3/ul (0.3-0.9); MONOCYTES % 6.5 % (0.0-11.0); NEUTROPHIL # 8.2 10^3/ul (1.6-7.5); NEUTROPHILS % 61.2 % (39.0-77.0); PLATELET COUNT 175 10^3/UL (140-415); POSITIVE DIFF @See below; RED BLOOD COUNT 2.89 10^6/ul (4.70-6.10); RED CELL DISTRIBUTION WIDTH 18.1 % (11.5-14.5); WHITE BLOOD COUNT 13.4 10^3/ul (4.8-10.8)
[2017-06-01] MEDS: LANSOPRAZOLE 30 MG CAP GTB SCH ×2 (05:27→17:44)
[2017-06-01 05:53] LABS: CALCIUM 8.4 mg/dl (8.4-10.2); CREATININE 3.23 mg/dl (0.61-1.24); POTASSIUM 3.8 mmol/L (3.5-5.1)
[2017-06-01] MEDS: AMLODIPINE 5 MG TAB GTB SCH ×2 (09:16→20:32)
[2017-06-01] MEDS: MULTIVITAMINS THERAPEUTIC TAB GTB SCH (09:16)
--- NOTE | 2017-06-01 09:41 | CONS ---
Date/Time of Note Date/Time of Note DATE: 06/01/17 TIME: 09:40 Assessment/Plan Assessment/Plan Additional Assessment/Plan 1.HTN-labile, better now - gloria adjust Rx as needed 2.H/O PAF-Remains in SR at this time by exam - off tele, sinus by exam now 3.renal failure - renal team follows 4.dysphagia 5. AMS - unchanged 6. Heart [id number] HR.improved with holding BB overall some intermittent recurrence when on Tele still - no indication for pacer now 7. Chest pain-resolved/negative troponin/no change on serial ecg 8. Occasional PVC's-when on tele 9. CHF-diastolic acute on chronic 10.UTI 11.anemia 12. Hyperkalemia-improved s/p kayexalate dose Consultation Date/Type/Reason Admit Date/Time Apr 17, 2017 at 16:39 Initial Consult Date 04/18/17 Type of Consultation: cardiology Referring Provider: PORTIA OLIVER MD 24 HR Interval Summary Free Text/Dictation NO acute events - BP stable - awaiting placement ROS: No fever, no chills, no nausea, no vomiting, no diarrhea/constipation No recent weight changes No chest pain, no PND, no orthopnea No dizziness, blurred vision No thirst, no heat or cold intolerance Exam/Review of Systems Vital Signs Vitals Vital Signs Date Time Temp Pulse Resp B/P Pulse Ox O2 Delivery O2 Flow Rate FiO2 06/01/17 08:43 98.5 71 18 129/60 98 06/01/17 08:39 21 05/31/17 14:14 Room Air Intake and Output 05/31/17 05/31/17 06/01/17 15:00 23:00 07:00 Intake Total 735 ml 600 ml Output Total 250 ml 450 ml Balance 485 ml 150 ml Exam General: WN/WD/NAD, AOx 0-1 comfortable HEENT: Unicetric/atraumatic/EOMI (does not follow commands) NECK: JVD elevated, no thyromegaly Lymph: no lymphadenopathy HEART: regular with no S3, II/ systolic murmur at apex LUNGS: Coarse sounds ABD: soft, NT, ND, +BS : Intact Neuro: non focal SKIN: chronic changes EXT: trace edema Results Result Diagram: 06/01/17 04506/01/17 045 Results 24 hrs Laboratory Tests Test 05/31/17 13:00 05/31/17 17:00 05/31/17 21:02 06/01/17 01:20 Bedside Glucose 151 170 187 144 Test 06/01/17 04:53 06/01/17 05:23 06/01/17 09:11 White Blood Count 13.4 H Red Blood Count 2.89 L Hemoglobin 8.5 L Hematocrit 26.8 L Mean Corpuscular Volume 92.7 Mean Corpuscular Hemoglobin 29.4 Mean Corpuscular Hemoglobin Concent 31.7 L Red Cell Distribution Width 18.1 H Platelet Count 175 Mean Platelet Volume 12.9 H Neutrophils % 61.2 Lymphocytes % 13.0 L Monocytes % 6.5 Eosinophils % 18.1 H Basophils % 0.8 Nucleated Red Blood Cells % 0.0 Neutrophils # 8.2 H Lymphocytes # 1.7 Monocytes # 0.9 Eosinophils # 2.4 H Basophils # 0.1 Nucleated Red Blood Cells # 0.0 Sodium Level 136 Potassium Level 3.8 Chloride Level 101 Carbon Dioxide Level 28 Anion Gap 11 Blood Urea Nitrogen 100 H Creatinine 3.23 H Glucose Level 153 Calcium Level 8.4 Bedside Glucose 144 181 Medications Medications Current Medications Acetaminophen (Tylenol Tab) 650 mg Q6H PRN GTB PAIN AND OR ELEVATED TEMP Last administered on 05/05/17 12:01; Admin Dose 650 MG; Start 04/17/17 at 18:00 Bisacodyl (Dulcolax Supp) 10 mg Q24H [place] Last administered on 05/30/17 17:41; Admin Dose 10 MG; Start 04/17/17 at 18:00 Diphenhydramine HCl (Benadryl) 25 mg Q6H PRN GTB ITCHING Last administered on 05/27/17 20:31; Admin Dose 25 MG; Start 04/17/17 at 18:00 Multivitamins Therapeutic (Theragran) 1 tab DAILY GTB Last administered on 09:16; Admin Dose 1 TAB; Start 04/18/17 at 09:00 Miscellaneous Information 1 ea NOTE XX ; Start 04/17/17 at 21:00 Glucose (Glutose) 15 gm Q15M PRN PO DECREASED GLUCOSE; Start 04/17/17 at 21:00 Glucose (Glutose) 22.5 gm Q15M PRN PO DECREASED GLUCOSE; Start 04/17/17 at 21: 00 Dextrose (D50w Syringe) 25 ml Q15M PRN IV DECREASED GLUCOSE Last administered on 05/18/17 20:46; Admin Dose 25 ML; Start 04/17/17 at 21:00 Dextrose (D50w Syringe) 50 ml Q15M PRN IV DECREASED GLUCOSE Last administered on 05/06/17 06:24; Admin Dose 50 ML; Start 04/17/17 at 21:00 Glucagon (Glucagen) 1 mg Q15M PRN IM DECREASED GLUCOSE; Start 04/17/17 at 21:00 Glucose (Glutose) 15 gm Q15M PRN BUCCAL DECREASED GLUCOSE; Start 04/17/17 at 21 :00 Ondansetron HCl (Zofran Inj) 4 mg Q6H PRN IV NAUSEA AND/OR VOMITING; Start at 00:30 Metoprolol Tartrate (Lopressor) 25 mg BID PO Last administered on 04/28/17 08: 14; Admin Dose 25 MG; Start 04/23/17 at 09:00; Status Future Hold Hydralazine HCl (Apresoline) 10 mg Q4H PRN IV SBP>170; Start 04/22/17 at 22:00 Nitroglycerin (Nitroglycerin (Sl Tab) 0.4 Mg) 1 tab Q5M PRN SL ANGINA; Start at 18:00 Acetaminophen/ Hydrocodone Bitart ([place] (5/325)) 1 tab Q6H PRN PO PAIN LEVEL 4 -7 Last administered on 05/29/17 17:25; Admin Dose 1 TAB; Start 05/03/17 at 03: 30 Acetaminophen (Tylenol Liquid) 650 mg Q4H PRN GTB PAIN AND OR ELEVATED TEMP Last administered on 05/12/17 18:12; Admin Dose 650 MG; Start 05/03/17 at 03:30 Zinc Acetate/ Diphenhydramine (Benadryl 2% Cr) 1 applic Q8 PRN TOP ITCHING Last administered on 05/18/17 03:31; Admin Dose 1 APPLIC; Start 05/07/17 at 11: 00 Lansoprazole (Prevacid) 30 mg BID@,18 GTB Last administered on 06/01/17 05: 27; Admin Dose 30 MG; Start 05/08/17 at 18:00 Epoetin Taqueria (Epogen (Esrd)) 2,000 units MoWeFr@17 [place] Last administered on 05/31 17:02; Admin Dose 2,000 UNITS; Start 05/17/17 at 17:00 Alprazolam (Xanax) 0.5 mg Q6H PRN JT ANXIETY Last administered on 05/27/17 20: 31; Admin Dose 0.5 MG; Start 05/19/17 at 18:30 Hydralazine HCl (Apresoline) 50 mg Q6H PRN GTB ABOVE 160; Start 05/23/17 at 12: 00 Amlodipine Besylate (Norvasc) 5 mg BID GTB Last administered on 06/01/17 09: 16; Admin Dose 5 MG; Start 05/23/17 at 21:00 Metoclopramide HCl (Reglan) 5 mg TID PRN IV NAUSEA; Start 05/25/17 at 13:00 Insulin Aspart (Novolog Insulin Pen) (Adult SC Insulin - Mild Algorithm)... Q4 [place] Last administered on 06/01/17 09:18; Admin Dose 2 UNIT; Start 05/24/17 at 17:00 Clonidine HCl (Catapres-Tts 2 Patch) 1 patch Q7D TRANSDERM Last administered on 05/28/17 18:51; Admin Dose 1 PATCH; Start 05/28/17 at 18:00 Insulin Glargine (Lantus) 14 unit QHS@21 [place] Last administered on 05/31/17 21: 12; Admin Dose 14 UNIT; Start 05/28/17 at 21:30 HERBERTH ZUNIGA MD Jun 01, 2017 09:41
[2017-06-01] MEDS: DIPHENHYDRAMINE 25 MG CAP GTB PRN (15:27)
--- NOTE | 2017-06-01 16:04 | PN ---
Date/Time of Note Date/Time of Note DATE: 06/01/17 TIME: 16:03 Assessment/Plan VTE Prophylaxis VTE Prophylaxis Intervention: SCD's Lines/Catheters [facility]ter Type [facility] Permacath- HD cath Urinary Cath still in place: Yes Reason Cath still needed: urinary retention Assessment/Plan Chief Complaint/Hosp Course Patient is undergoing HD, clinically stable, anticipate d/c to SNIF when bed is available. Assessment/Plan - Acute kidney injury on chronic kidney disease. Continue hemodialysis per renal. Dr. Cheema is following in nephrology consultation. - Protein calorie malnutrition, increase G-tube feeding according to workers' compensation hearings officer recommendations - Status post post urinary tract infection. - History of cerebrovascular accident - Diabetes mellitus. Continue Lantus and NovoLog. - Diastolic congestive heart failure. Continue to monitor intake and output. - Paroxysmal atrial fibrillation, currently in sinus rhythm. - Hypertension. Continue Norvasc. - Hyperlipidemia. Continue statin. - Urinary retention with Flores catheter. - Dysphagia, status post PEG placement - Anemia of chronic disease, continue Epogen. 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 Plan of care discussed with Dr. Patel Problems: Exam/Review of Systems Vital Signs Vitals Vital Signs Date Time Temp Pulse Resp B/P Pulse Ox O2 Delivery O2 Flow Rate FiO2 06/01/17 15:00 97.5 73 18 119/58 98 06/01/17 14:13 21 05/31/17 14:14 Room Air Intake and Output 05/31/17 05/31/17 06/01/17 15:00 23:00 07:00 Intake Total 735 ml 600 ml Output Total 250 ml 450 ml Balance 485 ml 150 ml Exam Constitutional: alert Neck: supple Respiratory: normal air movement Cardiovascular: nl pulses Gastrointestinal: other, soft Extremities: normal pulses (Tube) Additional Comments Right IJ permacath Results Result Diagram: 06/01/17 0453 06/01/17 0453 Results 24 hrs Laboratory Tests Test 05/31/17 17:00 05/31/17 21:02 06/01/17 01:20 06/01/17 04:53 Bedside Glucose 170 187 144 White Blood Count 13.4 H Red Blood Count 2.89 L Hemoglobin 8.5 L Hematocrit 26.8 L Mean Corpuscular Volume 92.7 Mean Corpuscular Hemoglobin 29.4 Mean Corpuscular Hemoglobin Concent 31.7 L Red Cell Distribution Width 18.1 H Platelet Count 175 Mean Platelet Volume 12.9 H Neutrophils % 61.2 Lymphocytes % 13.0 L Monocytes % 6.5 Eosinophils % 18.1 H Basophils % 0.8 Nucleated Red Blood Cells % 0.0 Neutrophils # 8.2 H Lymphocytes # 1.7 Monocytes # 0.9 Eosinophils # 2.4 H Basophils # 0.1 Nucleated Red Blood Cells # 0.0 Sodium Level 136 Potassium Level 3.8 Chloride Level 101 Carbon Dioxide Level 28 Anion Gap 11 Blood Urea Nitrogen 100 H Creatinine 3.23 H Glucose Level 153 Calcium Level 8.4 Test 06/01/17 05:23 06/01/17 09:11 06/01/17 13:02 Bedside Glucose 144 181 141 Medications Medications Current Medications Acetaminophen (Tylenol Tab) 650 mg Q6H PRN GTB PAIN AND OR ELEVATED TEMP Last administered on 05/05/17 12:01; Admin Dose 650 MG; Start 04/17/17 at 18:00 Bisacodyl (Dulcolax Supp) 10 mg Q24H [place] Last administered on 05/30/17 17:41; Admin Dose 10 MG; Start 04/17/17 at 18:00 Diphenhydramine HCl (Benadryl) 25 mg Q6H PRN GTB ITCHING Last administered on 06/01/17 15:27; Admin Dose 25 MG; Start 04/17/17 at 18:00 Multivitamins Therapeutic (Theragran) 1 tab DAILY GTB Last administered on 09:16; Admin Dose 1 TAB; Start 04/18/17 at 09:00 Miscellaneous Information 1 ea NOTE XX ; Start 04/17/17 at 21:00 Glucose (Glutose) 15 gm Q15M PRN PO DECREASED GLUCOSE; Start 04/17/17 at 21:00 Glucose (Glutose) 22.5 gm Q15M PRN PO DECREASED GLUCOSE; Start 04/17/17 at 21: 00 Dextrose (D50w Syringe) 25 ml Q15M PRN IV DECREASED GLUCOSE Last administered on 05/18/17 20:46; Admin Dose 25 ML; Start 04/17/17 at 21:00 Dextrose (D50w Syringe) 50 ml Q15M PRN IV DECREASED GLUCOSE Last administered on 05/06/17 06:24; Admin Dose 50 ML; Start 04/17/17 at 21:00 Glucagon (Glucagen) 1 mg Q15M PRN IM DECREASED GLUCOSE; Start 04/17/17 at 21:00 Glucose (Glutose) 15 gm Q15M PRN BUCCAL DECREASED GLUCOSE; Start 04/17/17 at 21 :00 Ondansetron HCl (Zofran Inj) 4 mg Q6H PRN IV NAUSEA AND/OR VOMITING; Start at 00:30 Metoprolol Tartrate (Lopressor) 25 mg BID PO Last administered on 04/28/17 08: 14; Admin Dose 25 MG; Start 04/23/17 at 09:00; Status Future Hold Hydralazine HCl (Apresoline) 10 mg Q4H PRN IV SBP>170; Start 04/22/17 at 22:00 Nitroglycerin (Nitroglycerin (Sl Tab) 0.4 Mg) 1 tab Q5M PRN SL ANGINA; Start at 18:00 Acetaminophen/ Hydrocodone Bitart ([place] (5/325)) 1 tab Q6H PRN PO PAIN LEVEL 4 -7 Last administered on 05/29/17 17:25; Admin Dose 1 TAB; Start 05/03/17 at 03: 30 Acetaminophen (Tylenol Liquid) 650 mg Q4H PRN GTB PAIN AND OR ELEVATED TEMP Last administered on 05/12/17 18:12; Admin Dose 650 MG; Start 05/03/17 at 03:30 Zinc Acetate/ Diphenhydramine (Benadryl 2% Cr) 1 applic Q8 PRN TOP ITCHING Last administered on 05/18/17 03:31; Admin Dose 1 APPLIC; Start 05/07/17 at 11: 00 Lansoprazole (Prevacid) 30 mg BID@06,18 GTB Last administered on 06/01/17 05: 27; Admin Dose 30 MG; Start 05/08/17 at 18:00 Epoetin Taqueria (Epogen (Esrd)) 2,000 units MoWeFr@17 [place] Last administered on 05/31 17:02; Admin Dose 2,000 UNITS; Start 05/17/17 at 17:00 Alprazolam (Xanax) 0.5 mg Q6H PRN JT ANXIETY Last administered on 05/27/17 20: 31; Admin Dose 0.5 MG; Start 05/19/17 at 18:30 Hydralazine HCl (Apresoline) 50 mg Q6H PRN GTB ABOVE 160; Start 05/23/17 at 12: 00 Amlodipine Besylate (Norvasc) 5 mg BID GTB Last administered on 06/01/17 09: 16; Admin Dose 5 MG; Start 05/23/17 at 21:00 Metoclopramide HCl (Reglan) 5 mg TID PRN IV NAUSEA; Start 05/25/17 at 13:00 Insulin Aspart (Novolog Insulin Pen) (Adult SC Insulin - Mild Algorithm)... Q4 [place] Last administered on 06/01/17 13:04; Admin Dose 1 UNIT; Start 05/24/17 at 17:00 Clonidine HCl (Catapres-Tts 2 Patch) 1 patch Q7D TRANSDERM Last administered on 05/28/17 18:51; Admin Dose 1 PATCH; Start 05/28/17 at 18:00 Insulin Glargine (Lantus) 14 unit QHS@21 [place] Last administered on 05/31/17 21: 12; Admin Dose 14 UNIT; Start 05/28/17 at 21:30 GEOVANY IBARRA Jun 01, 2017 16:04
[2017-06-01] MEDS: BISACODYL 10 MG SUPP PR SCH (17:44)
--- NOTE | 2017-06-01 18:19 | CONS ---
Date/Time of Note Date/Time of Note DATE: 06/01/17 TIME: 18:18 Assessment/Plan Assessment/Plan Chief Complaint/Hosp Course 1 CKD5 2.Hypernatremia HX 3.HTN 4 Ecoli UTI HX 5 Sepsis BETTER 6 Chronic AfibHX 7 CVA s/p G tube placement 8 Renal cyst 9 uremia 10 pul edemaBETTER plan continue HD FOR NOW NEED SNF PLACEMENT HD Problems: Consultation Date/Type/Reason Admit Date/Time Apr 17, 2017 at 16:39 Type of Consultation: RENAL Referring Provider: PORTIA OLIVER MD Exam/Review of Systems Vital Signs Vitals Vital Signs Date Time Temp Pulse Resp B/P Pulse Ox O2 Delivery O2 Flow Rate FiO2 06/01/17 15:30 81 06/01/17 15:00 97.5 18 119/58 98 06/01/17 14:13 21 05/31/17 14:14 Room Air Intake and Output 05/31/17 05/31/17 06/01/17 15:00 23:00 07:00 Intake Total 735 ml 600 ml Output Total 250 ml 450 ml Balance 485 ml 150 ml Exam Neck: supple Respiratory: clear to auscultation Cardiovascular: regular rate and rhythm Gastrointestinal: soft Musculoskeletal: nl extremities to inspection Extremities: normal pulses Results Result Diagram: 06/01/17 0453 06/01/17 0453 Results 24 hrs Laboratory Tests Test 05/31/17 21:02 06/01/17 01:20 06/01/17 04:53 06/01/17 05:23 Bedside Glucose 187 144 144 White Blood Count 13.4 H Red Blood Count 2.89 L Hemoglobin 8.5 L Hematocrit 26.8 L Mean Corpuscular Volume 92.7 Mean Corpuscular Hemoglobin 29.4 Mean Corpuscular Hemoglobin Concent 31.7 L Red Cell Distribution Width 18.1 H Platelet Count 175 Mean Platelet Volume 12.9 H Neutrophils % 61.2 Lymphocytes % 13.0 L Monocytes % 6.5 Eosinophils % 18.1 H Basophils % 0.8 Nucleated Red Blood Cells % 0.0 Neutrophils # 8.2 H Lymphocytes # 1.7 Monocytes # 0.9 Eosinophils # 2.4 H Basophils # 0.1 Nucleated Red Blood Cells # 0.0 Sodium Level 136 Potassium Level 3.8 Chloride Level 101 Carbon Dioxide Level 28 Anion Gap 11 Blood Urea Nitrogen 100 H Creatinine 3.23 H Glucose Level 153 Calcium Level 8.4 Test 06/01/17 09:11 06/01/17 13:02 06/01/17 17:35 Bedside Glucose 181 141 179 Medications Medications Current Medications Acetaminophen (Tylenol Tab) 650 mg Q6H PRN GTB PAIN AND OR ELEVATED TEMP Last administered on 05/05/17 12:01; Admin Dose 650 MG; Start 04/17/17 at 18:00 Bisacodyl (Dulcolax Supp) 10 mg Q24H [place] Last administered on 06/01/17 17:44; Admin Dose 10 MG; Start 04/17/17 at 18:00 Diphenhydramine HCl (Benadryl) 25 mg Q6H PRN GTB ITCHING Last administered on 06/01/17 15:27; Admin Dose 25 MG; Start 04/17/17 at 18:00 Multivitamins Therapeutic (Theragran) 1 tab DAILY GTB Last administered on 09:16; Admin Dose 1 TAB; Start 04/18/17 at 09:00 Miscellaneous Information 1 ea NOTE XX ; Start 04/17/17 at 21:00 Glucose (Glutose) 15 gm Q15M PRN PO DECREASED GLUCOSE; Start 04/17/17 at 21:00 Glucose (Glutose) 22.5 gm Q15M PRN PO DECREASED GLUCOSE; Start 04/17/17 at 21: 00 Dextrose (D50w Syringe) 25 ml Q15M PRN IV DECREASED GLUCOSE Last administered on 05/18/17 20:46; Admin Dose 25 ML; Start 04/17/17 at 21:00 Dextrose (D50w Syringe) 50 ml Q15M PRN IV DECREASED GLUCOSE Last administered on 05/06/17 06:24; Admin Dose 50 ML; Start 04/17/17 at 21:00 Glucagon (Glucagen) 1 mg Q15M PRN IM DECREASED GLUCOSE; Start 04/17/17 at 21:00 Glucose (Glutose) 15 gm Q15M PRN BUCCAL DECREASED GLUCOSE; Start 04/17/17 at 21 :00 Ondansetron HCl (Zofran Inj) 4 mg Q6H PRN IV NAUSEA AND/OR VOMITING; Start at 00:30 Metoprolol Tartrate (Lopressor) 25 mg BID PO Last administered on 04/28/17 08: 14; Admin Dose 25 MG; Start 04/23/17 at 09:00; Status Future Hold Hydralazine HCl (Apresoline) 10 mg Q4H PRN IV SBP>170; Start 04/22/17 at 22:00 Nitroglycerin (Nitroglycerin (Sl Tab) 0.4 Mg) 1 tab Q5M PRN SL ANGINA; Start at 18:00 Acetaminophen/ Hydrocodone Bitart ([place] (5/325)) 1 tab Q6H PRN PO PAIN LEVEL 4 -7 Last administered on 05/29/17 17:25; Admin Dose 1 TAB; Start 05/03/17 at 03: 30 Acetaminophen (Tylenol Liquid) 650 mg Q4H PRN GTB PAIN AND OR ELEVATED TEMP Last administered on 05/12/17 18:12; Admin Dose 650 MG; Start 05/03/17 at 03:30 Zinc Acetate/ Diphenhydramine (Benadryl 2% Cr) 1 applic Q8 PRN TOP ITCHING Last administered on 05/18/17 03:31; Admin Dose 1 APPLIC; Start 05/07/17 at 11: 00 Lansoprazole (Prevacid) 30 mg BID@06,18 GTB Last administered on 06/01/17 17: 44; Admin Dose 30 MG; Start 05/08/17 at 18:00 Epoetin Taqueria (Epogen (Esrd)) 2,000 units MoWeFr@17 SC Last administered on 05/31 17:02; Admin Dose 2,000 UNITS; Start 05/17/17 at 17:00 Alprazolam (Xanax) 0.5 mg Q6H PRN JT ANXIETY Last administered on 05/27/17 20: 31; Admin Dose 0.5 MG; Start 05/19/17 at 18:30 Hydralazine HCl (Apresoline) 50 mg Q6H PRN GTB ABOVE 160; Start 05/23/17 at 12: 00 Amlodipine Besylate (Norvasc) 5 mg BID GTB Last administered on 06/01/17 09: 16; Admin Dose 5 MG; Start 05/23/17 at 21:00 Metoclopramide HCl (Reglan) 5 mg TID PRN IV NAUSEA; Start 05/25/17 at 13:00 Insulin Aspart (Novolog Insulin Pen) (Adult SC Insulin - Mild Algorithm)... Q4 [place] Last administered on 06/01/17 17:39; Admin Dose 1 UNIT; Start 05/24/17 at 17:00 Clonidine HCl (Catapres-Tts 2 Patch) 1 patch Q7D TRANSDERM Last administered on 05/28/17 18:51; Admin Dose 1 PATCH; Start 05/28/17 at 18:00 Insulin Glargine (Lantus) 14 unit QHS@21 SC Last administered on 05/31/17 21: 12; Admin Dose 14 UNIT; Start 05/28/17 at 21:30 ABBY RAMOS MD Jun 01, 2017 18:19
[2017-06-01] MEDS: INSULIN GLARGINE [LANtus] 3 ML PEN SC SCH (20:36)
[2017-06-02 01:43] VITALS: BP 136/65; RESP 18
[2017-06-02] MEDS: INSULIN ASPART [NOVOLOG] 3 ML PEN SC SCH ×6 (01:51→20:33)
[2017-06-02] MEDS: ALBUTEROL/IPRATROPIUM (NEB) 3 ML AMP HHN SCH ×4 (02:06→21:17)
[2017-06-02] MEDS: LANSOPRAZOLE 30 MG CAP GTB SCH ×2 (05:04→18:24)
[2017-06-02 06:22] LABS: CALCIUM 8.4 mg/dl (8.4-10.2); CREATININE 2.08 mg/dl (0.61-1.24); POTASSIUM 3.9 mmol/L (3.5-5.1)
[2017-06-02 07:00] VITALS: BP 147/66; RESP 18
[2017-06-02] MEDS: AMLODIPINE 5 MG TAB GTB SCH ×2 (08:53→20:31)
[2017-06-02] MEDS: MULTIVITAMINS THERAPEUTIC TAB GTB SCH (08:53)
[2017-06-02 14:00] VITALS: BP 127/59; RESP 18
--- NOTE | 2017-06-02 16:19 | CONS ---
Date/Time of Note Date/Time of Note DATE: 06/02/17 TIME: 16:15 Assessment/Plan Assessment/Plan Chief Complaint/Hosp Course IMP: 1.HTN-elevated 2.H/O PAF-Remains in SR at this time by exam 3.renal failure 4.dysphagia 5. AMS 6. Heart [id number] HR.improved with holding BB overall some intermittent recurrence when on Tele still 7. Chest pain-resolved/negative troponin/no change on serial ecg 8. Occasional PVC's-when on tele 9. CHF-diastolic acute on chronic 10.UTI 11.anemia 12. Hyperkalemia-improved s/p kayexalate dose REcc: -Now on med-surg -serial ecg's to document rhythm -Continue clondine TTS and norvasc at current dose and follow BP closely -Continue to Hold BB given wenkebach -Follow volume status closely -HD for volume removal -Follow MS closely -12 lead ecg to document most recent rhythm Problems: Consultation Date/Type/Reason Admit Date/Time Apr 17, 2017 at 16:39 Initial Consult Date 04/18/17 Type of Consultation: cardiology Reason for Consultation PAF Referring Provider: PORTIA OLIVER MD Exam/Review of Systems Vital Signs Vitals Vital Signs Date Time Temp Pulse Resp B/P Pulse Ox O2 Delivery O2 Flow Rate FiO2 06/02/17 14:00 98.6 83 18 127/59 100 06/02/17 13:19 21 05/31/17 14:14 Room Air Intake and Output 06/01/17 06/01/17 06/02/17 15:00 23:00 07:00 Intake Total 1020 ml 620 ml Output Total 1650 ml 415 ml Balance -630 ml 205 ml Exam Review of Systems: CONSTITUTIONAL: No fevers, chills. PULMONARY: No sob CARDIOVASCULAR: No chest pain/palpitations GASTROINTESTINAL: No nausea/vomiting. GENITOURINARY: No hematuria/dysuria. MUSCULOSKELETAL: No myagias/arthalgias. PSYCHIATRIC: The patient denies depression. NEUROLOGIC: lethargic Constitutional: alert Psych: no complaints Head: normocephalic ENMT: mucosa pink and moist Neck: jvd (9 cm water), supple Respiratory: diminished breath sounds (at bases/B) Cardiovascular: regular rate and rhythm Gastrointestinal: non-tender, soft Musculoskeletal: muscle weakness (generalized) Extremities: edema (none) Neurological: other (No focal deficits) Results Result Diagram: 06/01/17 0453 06/02/17 0502 Results 24 hrs Laboratory Tests Test 06/01/17 17:35 06/01/17 20:31 06/02/17 01:48 06/02/17 05:02 Bedside Glucose 179 177 209 Sodium Level 138 Potassium Level 3.9 Chloride Level 102 Carbon Dioxide Level 28 Anion Gap 12 Blood Urea Nitrogen 60 #H Creatinine 2.08 #H Glucose Level 222 H Calcium Level 8.4 Test 06/02/17 05:05 06/02/17 08:23 06/02/17 12:38 Bedside Glucose 233 H 194 181 Medications Medications Current Medications Acetaminophen (Tylenol Tab) 650 mg Q6H PRN GTB PAIN AND OR ELEVATED TEMP Last administered on 05/05/17 12:01; Admin Dose 650 MG; Start 04/17/17 at 18:00 Bisacodyl (Dulcolax Supp) 10 mg Q24H [place] Last administered on 06/01/17 17:44; Admin Dose 10 MG; Start 04/17/17 at 18:00 Diphenhydramine HCl (Benadryl) 25 mg Q6H PRN GTB ITCHING Last administered on 06/01/17 15:27; Admin Dose 25 MG; Start 04/17/17 at 18:00 Multivitamins Therapeutic (Theragran) 1 tab DAILY GTB Last administered on 08:53; Admin Dose 1 TAB; Start 04/18/17 at 09:00 Miscellaneous Information 1 ea NOTE XX ; Start 04/17/17 at 21:00 Glucose (Glutose) 15 gm Q15M PRN PO DECREASED GLUCOSE; Start 04/17/17 at 21:00 Glucose (Glutose) 22.5 gm Q15M PRN PO DECREASED GLUCOSE; Start 04/17/17 at 21: 00 Dextrose (D50w Syringe) 25 ml Q15M PRN IV DECREASED GLUCOSE Last administered on 05/18/17 20:46; Admin Dose 25 ML; Start 04/17/17 at 21:00 Dextrose (D50w Syringe) 50 ml Q15M PRN IV DECREASED GLUCOSE Last administered on 05/06/17 06:24; Admin Dose 50 ML; Start 04/17/17 at 21:00 Glucagon (Glucagen) 1 mg Q15M PRN IM DECREASED GLUCOSE; Start 04/17/17 at 21:00 Glucose (Glutose) 15 gm Q15M PRN BUCCAL DECREASED GLUCOSE; Start 04/17/17 at 21 :00 Ondansetron HCl (Zofran Inj) 4 mg Q6H PRN IV NAUSEA AND/OR VOMITING; Start at 00:30 Metoprolol Tartrate (Lopressor) 25 mg BID PO Last administered on 04/28/17 08: 14; Admin Dose 25 MG; Start 04/23/17 at 09:00; Status Future Hold Hydralazine HCl (Apresoline) 10 mg Q4H PRN IV SBP>170; Start 04/22/17 at 22:00 Nitroglycerin (Nitroglycerin (Sl Tab) 0.4 Mg) 1 tab Q5M PRN SL ANGINA; Start at 18:00 Acetaminophen/ Hydrocodone Bitart ([place] (5/325)) 1 tab Q6H PRN PO PAIN LEVEL 4 -7 Last administered on 05/29/17 17:25; Admin Dose 1 TAB; Start 05/03/17 at 03: 30 Acetaminophen (Tylenol Liquid) 650 mg Q4H PRN GTB PAIN AND OR ELEVATED TEMP Last administered on 05/12/17 18:12; Admin Dose 650 MG; Start 05/03/17 at 03:30 Zinc Acetate/ Diphenhydramine (Benadryl 2% Cr) 1 applic Q8 PRN TOP ITCHING Last administered on 05/18/17 03:31; Admin Dose 1 APPLIC; Start 05/07/17 at 11: 00 Lansoprazole (Prevacid) 30 mg BID@06,18 GTB Last administered on 06/02/17 05: 04; Admin Dose 30 MG; Start 05/08/17 at 18:00 Epoetin Taqueria (Epogen (Esrd)) 2,000 units MoWeFr@17 [place] Last administered on 05/31 17:02; Admin Dose 2,000 UNITS; Start 05/17/17 at 17:00 Alprazolam (Xanax) 0.5 mg Q6H PRN JT ANXIETY Last administered on 05/27/17 20: 31; Admin Dose 0.5 MG; Start 05/19/17 at 18:30 Hydralazine HCl (Apresoline) 50 mg Q6H PRN GTB ABOVE 160; Start 05/23/17 at 12: 00 Amlodipine Besylate (Norvasc) 5 mg BID GTB Last administered on 06/02/17 08: 53; Admin Dose 5 MG; Start 05/23/17 at 21:00 Metoclopramide HCl (Reglan) 5 mg TID PRN IV NAUSEA; Start 05/25/17 at 13:00 Insulin Aspart (Novolog Insulin Pen) (Adult SC Insulin - Mild Algorithm)... Q4 [place] Last administered on 06/02/17 12:43; Admin Dose 2 UNIT; Start 05/24/17 at 17:00 Clonidine HCl (Catapres-Tts 2 Patch) 1 patch Q7D TRANSDERM Last administered on 05/28/17 18:51; Admin Dose 1 PATCH; Start 05/28/17 at 18:00 Insulin Glargine (Lantus) 18 unit DAILY@20 SC ; Start 06/02/17 at 20:00 LESLI SHEA Jun 02, 2017 16:19
[2017-06-02] MEDS: BISACODYL 10 MG SUPP PR SCH (18:25)
[2017-06-02] MEDS: EPOETIN 2000 UNITS/1 ML INJ (ESRD) SC SCH (18:26)
[2017-06-02] MEDS: INSULIN GLARGINE [LANtus] 3 ML PEN SC SCH (20:34)
--- NOTE | 2017-06-02 20:41 | CONS ---
Date/Time of Note Date/Time of Note DATE: 06/02/17 TIME: 20:41 Assessment/Plan Assessment/Plan Chief Complaint/Hosp Course 1 CKD5 2.Hypernatremia HX 3.HTN 4 Ecoli UTI HX 5 Sepsis BETTER 6 Chronic AfibHX 7 CVA s/p G tube placement 8 Renal cyst 9 uremia 10 pul edemaBETTER plan continue HD FOR NOW NEED SNF PLACEMENT HD AM CK LABS Problems: Consultation Date/Type/Reason Admit Date/Time Apr 17, 2017 at 16:39 Type of Consultation: RENAL Referring Provider: PORTIA OLIVER MD Exam/Review of Systems Vital Signs Vitals Vital Signs Date Time Temp Pulse Resp B/P Pulse Ox O2 Delivery O2 Flow Rate FiO2 06/02/17 14:00 98.6 83 18 127/59 100 06/02/17 13:19 21 05/31/17 14:14 Room Air Intake and Output 06/01/17 06/01/17 06/02/17 15:00 23:00 07:00 Intake Total 1020 ml 620 ml Output Total 1650 ml 415 ml Balance -630 ml 205 ml Exam Neck: supple Respiratory: clear to auscultation Cardiovascular: regular rate and rhythm Gastrointestinal: soft Musculoskeletal: nl extremities to inspection Extremities: normal pulses Results Result Diagram: 06/01/17 0453 06/02/17 0502 Results 24 hrs Laboratory Tests Test 06/02/17 01:48 06/02/17 05:02 06/02/17 05:05 06/02/17 08:23 Bedside Glucose 209 233 H 194 Sodium Level 138 Potassium Level 3.9 Chloride Level 102 Carbon Dioxide Level 28 Anion Gap 12 Blood Urea Nitrogen 60 #H Creatinine 2.08 #H Glucose Level 222 H Calcium Level 8.4 Test 06/02/17 12:38 06/02/17 17:39 Bedside Glucose 181 171 Medications Medications Current Medications Acetaminophen (Tylenol Tab) 650 mg Q6H PRN GTB PAIN AND OR ELEVATED TEMP Last administered on 05/05/17 12:01; Admin Dose 650 MG; Start 04/17/17 at 18:00 Bisacodyl (Dulcolax Supp) 10 mg Q24H [place] Last administered on 06/02/17 18:25; Admin Dose 10 MG; Start 04/17/17 at 18:00 Diphenhydramine HCl (Benadryl) 25 mg Q6H PRN GTB ITCHING Last administered on 06/01/17 15:27; Admin Dose 25 MG; Start 04/17/17 at 18:00 Multivitamins Therapeutic (Theragran) 1 tab DAILY GTB Last administered on 08:53; Admin Dose 1 TAB; Start 04/18/17 at 09:00 Miscellaneous Information 1 ea NOTE XX ; Start 04/17/17 at 21:00 Glucose (Glutose) 15 gm Q15M PRN PO DECREASED GLUCOSE; Start 04/17/17 at 21:00 Glucose (Glutose) 22.5 gm Q15M PRN PO DECREASED GLUCOSE; Start 04/17/17 at 21: 00 Dextrose (D50w Syringe) 25 ml Q15M PRN IV DECREASED GLUCOSE Last administered on 05/18/17 20:46; Admin Dose 25 ML; Start 04/17/17 at 21:00 Dextrose (D50w Syringe) 50 ml Q15M PRN IV DECREASED GLUCOSE Last administered on 05/06/17 06:24; Admin Dose 50 ML; Start 04/17/17 at 21:00 Glucagon (Glucagen) 1 mg Q15M PRN IM DECREASED GLUCOSE; Start 04/17/17 at 21:00 Glucose (Glutose) 15 gm Q15M PRN BUCCAL DECREASED GLUCOSE; Start 04/17/17 at 21 :00 Ondansetron HCl (Zofran Inj) 4 mg Q6H PRN IV NAUSEA AND/OR VOMITING; Start at 00:30 Metoprolol Tartrate (Lopressor) 25 mg BID PO Last administered on 04/28/17 08: 14; Admin Dose 25 MG; Start 04/23/17 at 09:00; Status Future Hold Hydralazine HCl (Apresoline) 10 mg Q4H PRN IV SBP>170; Start 04/22/17 at 22:00 Nitroglycerin (Nitroglycerin (Sl Tab) 0.4 Mg) 1 tab Q5M PRN SL ANGINA; Start at 18:00 Acetaminophen/ Hydrocodone Bitart ([place] (5/325)) 1 tab Q6H PRN PO PAIN LEVEL 4 -7 Last administered on 05/29/17 17:25; Admin Dose 1 TAB; Start 05/03/17 at 03: 30 Acetaminophen (Tylenol Liquid) 650 mg Q4H PRN GTB PAIN AND OR ELEVATED TEMP Last administered on 05/12/17 18:12; Admin Dose 650 MG; Start 05/03/17 at 03:30 Zinc Acetate/ Diphenhydramine (Benadryl 2% Cr) 1 applic Q8 PRN TOP ITCHING Last administered on 05/18/17 03:31; Admin Dose 1 APPLIC; Start 05/07/17 at 11: 00 Lansoprazole (Prevacid) 30 mg BID@06,18 GTB Last administered on 06/02/17 18: 24; Admin Dose 30 MG; Start 05/08/17 at 18:00 Epoetin Taqueria (Epogen (Esrd)) 2,000 units MoWeFr@17 SC Last administered on 18:26; Admin Dose 2,000 UNITS; Start 05/17/17 at 17:00 Alprazolam (Xanax) 0.5 mg Q6H PRN JT ANXIETY Last administered on 05/27/17 20: 31; Admin Dose 0.5 MG; Start 05/19/17 at 18:30 Hydralazine HCl (Apresoline) 50 mg Q6H PRN GTB ABOVE 160; Start 05/23/17 at 12: 00 Amlodipine Besylate (Norvasc) 5 mg BID GTB Last administered on 06/02/17 20: 31; Admin Dose 5 MG; Start 05/23/17 at 21:00 Metoclopramide HCl (Reglan) 5 mg TID PRN IV NAUSEA; Start 05/25/17 at 13:00 Insulin Aspart (Novolog Insulin Pen) (Adult SC Insulin - Mild Algorithm)... Q4 [place] Last administered on 06/02/17 20:33; Admin Dose 2 UNIT; Start 05/24/17 at 17:00 Clonidine HCl (Catapres-Tts 2 Patch) 1 patch Q7D TRANSDERM Last administered on 05/28/17 18:51; Admin Dose 1 PATCH; Start 05/28/17 at 18:00 Insulin Glargine (Lantus) 18 unit DAILY@20 SC Last administered on 06/02/17 20:34; Admin Dose 18 UNIT; Start 06/02/17 at 20:00 ABBY RAMOS MD Jun 02, 2017 20:41
[2017-06-02 20:46] VITALS: BP 136/64; RESP 18
--- NOTE | 2017-06-02 21:57 | PN ---
Date/Time of Note Date/Time of Note DATE: 06/02/17 TIME: 21:56 Assessment/Plan VTE Prophylaxis VTE Prophylaxis Intervention: SCD's Lines/Catheters IV [facility] permacath Urinary Cath still in place: Yes Reason Cath still needed: urinary retention Assessment/Plan Chief Complaint/Hosp Course Patient is clinically stable, anticipate d/c to SNIF when bed is available. Assessment/Plan - Acute kidney injury on chronic kidney disease. Continue hemodialysis per renal. Dr. Cheema is following in nephrology consultation. - Protein calorie malnutrition, increase G-tube feeding according to anesthetist recommendations - Status post post urinary tract infection. - History of cerebrovascular accident - Diabetes mellitus. Continue Lantus and NovoLog. - Diastolic congestive heart failure. Continue to monitor intake and output. - Paroxysmal atrial fibrillation, currently in sinus rhythm. - Hypertension. Continue Norvasc. - Hyperlipidemia. Continue statin. - Urinary retention with Flores catheter. - Dysphagia, status post PEG placement - Anemia of chronic disease, continue Epogen. 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 Plan of care discussed with Dr. Patel Problems: Exam/Review of Systems Vital Signs Vitals Vital Signs Date Time Temp Pulse Resp B/P Pulse Ox O2 Delivery O2 Flow Rate FiO2 06/02/17 21:19 82 18 96 21 06/02/17 20:46 97.7 136/64 05/31/17 14:14 Room Air Intake and Output 06/01/17 06/01/17 06/02/17 15:00 23:00 07:00 Intake Total 1020 ml 620 ml Output Total 1650 ml 415 ml Balance -630 ml 205 ml Exam Constitutional: alert Head: normocephalic Neck: supple Respiratory: normal air movement Cardiovascular: nl pulses Gastrointestinal: non-tender, other (Gtube), soft Results Result Diagram: 06/01/17 0453 06/02/17 0502 Results 24 hrs Laboratory Tests Test 06/02/17 01:48 06/02/17 05:02 06/02/17 05:05 06/02/17 08:23 Bedside Glucose 209 233 H 194 Sodium Level 138 Potassium Level 3.9 Chloride Level 102 Carbon Dioxide Level 28 Anion Gap 12 Blood Urea Nitrogen 60 #H Creatinine 2.08 #H Glucose Level 222 H Calcium Level 8.4 Test 06/02/17 12:38 06/02/17 17:39 06/02/17 20:29 Bedside Glucose 181 171 192 Medications Medications Current Medications Acetaminophen (Tylenol Tab) 650 mg Q6H PRN GTB PAIN AND OR ELEVATED TEMP Last administered on 05/05/17 12:01; Admin Dose 650 MG; Start 04/17/17 at 18:00 Bisacodyl (Dulcolax Supp) 10 mg Q24H [place] Last administered on 06/02/17 18:25; Admin Dose 10 MG; Start 04/17/17 at 18:00 Diphenhydramine HCl (Benadryl) 25 mg Q6H PRN GTB ITCHING Last administered on 06/01/17 15:27; Admin Dose 25 MG; Start 04/17/17 at 18:00 Multivitamins Therapeutic (Theragran) 1 tab DAILY GTB Last administered on 08:53; Admin Dose 1 TAB; Start 04/18/17 at 09:00 Miscellaneous Information 1 ea NOTE XX ; Start 04/17/17 at 21:00 Glucose (Glutose) 15 gm Q15M PRN PO DECREASED GLUCOSE; Start 04/17/17 at 21:00 Glucose (Glutose) 22.5 gm Q15M PRN PO DECREASED GLUCOSE; Start 04/17/17 at 21: 00 Dextrose (D50w Syringe) 25 ml Q15M PRN IV DECREASED GLUCOSE Last administered on 05/18/17 20:46; Admin Dose 25 ML; Start 04/17/17 at 21:00 Dextrose (D50w Syringe) 50 ml Q15M PRN IV DECREASED GLUCOSE Last administered on 05/06/17 06:24; Admin Dose 50 ML; Start 04/17/17 at 21:00 Glucagon (Glucagen) 1 mg Q15M PRN IM DECREASED GLUCOSE; Start 04/17/17 at 21:00 Glucose (Glutose) 15 gm Q15M PRN BUCCAL DECREASED GLUCOSE; Start 04/17/17 at 21 :00 Ondansetron HCl (Zofran Inj) 4 mg Q6H PRN IV NAUSEA AND/OR VOMITING; Start at 00:30 Metoprolol Tartrate (Lopressor) 25 mg BID PO Last administered on 04/28/17 08: 14; Admin Dose 25 MG; Start 04/23/17 at 09:00; Status Future Hold Hydralazine HCl (Apresoline) 10 mg Q4H PRN IV SBP>170; Start 04/22/17 at 22:00 Nitroglycerin (Nitroglycerin (Sl Tab) 0.4 Mg) 1 tab Q5M PRN SL ANGINA; Start at 18:00 Acetaminophen/ Hydrocodone Bitart ([place] (5/325)) 1 tab Q6H PRN PO PAIN LEVEL 4 -7 Last administered on 05/29/17 17:25; Admin Dose 1 TAB; Start 05/03/17 at 03: 30 Acetaminophen (Tylenol Liquid) 650 mg Q4H PRN GTB PAIN AND OR ELEVATED TEMP Last administered on 05/12/17 18:12; Admin Dose 650 MG; Start 05/03/17 at 03:30 Zinc Acetate/ Diphenhydramine (Benadryl 2% Cr) 1 applic Q8 PRN TOP ITCHING Last administered on 05/18/17 03:31; Admin Dose 1 APPLIC; Start 05/07/17 at 11: 00 Lansoprazole (Prevacid) 30 mg BID@06,18 GTB Last administered on 06/02/17 18: 24; Admin Dose 30 MG; Start 05/08/17 at 18:00 Epoetin Taqueria (Epogen (Esrd)) 2,000 units MoWeFr@17 SC Last administered on 18:26; Admin Dose 2,000 UNITS; Start 05/17/17 at 17:00 Alprazolam (Xanax) 0.5 mg Q6H PRN JT ANXIETY Last administered on 05/27/17 20: 31; Admin Dose 0.5 MG; Start 05/19/17 at 18:30 Hydralazine HCl (Apresoline) 50 mg Q6H PRN GTB ABOVE 160; Start 05/23/17 at 12: 00 Amlodipine Besylate (Norvasc) 5 mg BID GTB Last administered on 06/02/17 20: 31; Admin Dose 5 MG; Start 05/23/17 at 21:00 Metoclopramide HCl (Reglan) 5 mg TID PRN IV NAUSEA; Start 05/25/17 at 13:00 Insulin Aspart (Novolog Insulin Pen) (Adult SC Insulin - Mild Algorithm)... Q4 [place] Last administered on 06/02/17 20:33; Admin Dose 2 UNIT; Start 05/24/17 at 17:00 Clonidine HCl (Catapres-Tts 2 Patch) 1 patch Q7D TRANSDERM Last administered on 05/28/17 18:51; Admin Dose 1 PATCH; Start 05/28/17 at 18:00 Insulin Glargine (Lantus) 18 unit DAILY@20 SC Last administered on 06/02/17 20:34; Admin Dose 18 UNIT; Start 06/02/17 at 20:00 GEOVANY IBARRA Jun 02, 2017 21:57
[2017-06-03] VITALS (11 sets, daily range): BP systolic 101–148; BP diastolic 63–82; PULSE 69–81; RESP 18–20
[2017-06-03] MEDS: INSULIN ASPART [NOVOLOG] 3 ML PEN SC SCH ×6 (01:14→21:02)
[2017-06-03] MEDS: ALBUTEROL/IPRATROPIUM (NEB) 3 ML AMP HHN SCH ×4 (03:23→21:07)
[2017-06-03] MEDS: LANSOPRAZOLE 30 MG CAP GTB SCH ×2 (04:57→17:52)
[2017-06-03 05:22] LABS: ABNORMAL IP MESSAGE 1; BASOPHIL # 0.1 10^3/ul (0.0-0.1); EOSINOPHILS # 2.5 10^3/ul (0.0-0.5); EOSINOPHILS % 20.4 % (0.0-7.0); HEMATOCRIT 28.3 % (42.0-52.0); LYMPHOCYTES # 1.9 10^3/ul (0.8-2.9); LYMPHOCYTES % 15.6 % (15.0-51.0); MEAN CORPUSCULAR HEMOGLOBIN 28.9 pg (29.0-33.0); MEAN CORPUSCULAR HGB CONC 31.8 g/dl (32.0-37.0); MEAN PLATELET VOLUME 13.4 fl (7.4-10.4); MONOCYTE # 0.9 10^3/ul (0.3-0.9); NEUTROPHIL # 6.8 10^3/ul (1.6-7.5); NEUTROPHILS % 55.6 % (39.0-77.0); PLATELET COUNT 155 10^3/UL (140-415); POSITIVE DIFF @See below; RED BLOOD COUNT 3.11 10^6/ul (4.70-6.10); WHITE BLOOD COUNT 12.3 10^3/ul (4.8-10.8)
[2017-06-03] MEDS: MULTIVITAMINS THERAPEUTIC TAB GTB SCH (09:15)
[2017-06-03] MEDS: AMLODIPINE 5 MG TAB GTB SCH ×2 (09:16→20:58)
--- NOTE | 2017-06-03 14:04 | CONS ---
Date/Time of Note Date/Time of Note DATE: 06/03/17 TIME: 14:02 Assessment/Plan Assessment/Plan Chief Complaint/Hosp Course IMP: 1.HTN-currently reasonable control 2.H/O PAF-Remains in SR by ECG 06/02 3.renal failure 4.dysphagia 5. AMS 6. Heart fmimr-ikvecjlhv-ewsfii HR.improved with holding BB overall some intermittent recurrence when on Tele still 7. Chest pain-resolved/negative troponin/no change on serial ecg 8. Occasional PVC's-when on tele 9. CHF-diastolic acute on chronic 10.UTI 11.anemia 12. Hyperkalemia-improved s/p kayexalate dose REcc: -Now on med-surg -serial ecg's to document rhythm -Continue clondine TTS and norvasc at current dose and follow BP closely -Continue to Hold BB given wenkebach -Follow volume status closely -HD for volume removal -Follow MS closely Problems: Consultation Date/Type/Reason Admit Date/Time Apr 17, 2017 at 16:39 Initial Consult Date 04/18/17 Type of Consultation: cardiology Reason for Consultation PAFL Referring Provider: PORTIA OLIVER MD Exam/Review of Systems Vital Signs Vitals Vital Signs Date Time Temp Pulse Resp B/P Pulse Ox O2 Delivery O2 Flow Rate FiO2 06/03/17 13:20 74 06/03/17 10:20 19 06/03/17 08:54 100 21 06/03/17 08:14 98.2 148/66 05/31/17 14:14 Room Air Intake and Output 06/02/17 06/02/17 06/03/17 15:00 23:00 07:00 Intake Total 600 ml Output Total 200 ml 400 ml Balance -200 ml 200 ml Exam Review of Systems: CONSTITUTIONAL: No fevers, chills. PULMONARY: No sob CARDIOVASCULAR: No chest pain/palpitations GASTROINTESTINAL: No nausea/vomiting. GENITOURINARY: No hematuria/dysuria. MUSCULOSKELETAL: No myagias/arthalgias. PSYCHIATRIC: The patient denies depression. NEUROLOGIC: No weakness Constitutional: other (lethargic) Psych: no complaints Head: normocephalic ENMT: mucosa pink and moist Neck: jvd (9 cm water), supple Respiratory: diminished breath sounds (at bbases/B) Cardiovascular: regular rate and rhythm Gastrointestinal: non-tender, soft Musculoskeletal: muscle weakness (generalized) Extremities: edema (none) Neurological: lethargic Results Result Diagram: 06/03/17 0433 06/02/17 0502 Results 24 hrs Laboratory Tests Test 06/02/17 17:39 06/02/17 20:29 06/03/17 01:11 06/03/17 04:33 Bedside Glucose 171 192 197 White Blood Count 12.3 H Red Blood Count 3.11 L Hemoglobin 9.0 L Hematocrit 28.3 L Mean Corpuscular Volume 91.0 Mean Corpuscular Hemoglobin 28.9 L Mean Corpuscular Hemoglobin Concent 31.8 L Red Cell Distribution Width 18.0 H Platelet Count 155 Mean Platelet Volume 13.4 H Neutrophils % 55.6 Lymphocytes % 15.6 Monocytes % 7.0 Eosinophils % 20.4 H Basophils % 1.0 Nucleated Red Blood Cells % 0.0 Neutrophils # 6.8 Lymphocytes # 1.9 Monocytes # 0.9 Eosinophils # 2.5 H Basophils # 0.1 Nucleated Red Blood Cells # 0.0 Test 06/03/17 04:37 06/03/17 09:14 06/03/17 13:09 Bedside Glucose 186 155 188 Medications Medications Current Medications Acetaminophen (Tylenol Tab) 650 mg Q6H PRN GTB PAIN AND OR ELEVATED TEMP Last administered on 05/05/17 12:01; Admin Dose 650 MG; Start 04/17/17 at 18:00 Bisacodyl (Dulcolax Supp) 10 mg Q24H [place] Last administered on 06/02/17 18:25; Admin Dose 10 MG; Start 04/17/17 at 18:00 Diphenhydramine HCl (Benadryl) 25 mg Q6H PRN GTB ITCHING Last administered on 06/01/17 15:27; Admin Dose 25 MG; Start 04/17/17 at 18:00 Multivitamins Therapeutic (Theragran) 1 tab DAILY GTB Last administered on 09:15; Admin Dose 1 TAB; Start 04/18/17 at 09:00 Miscellaneous Information 1 ea NOTE XX ; Start 04/17/17 at 21:00 Glucose (Glutose) 15 gm Q15M PRN PO DECREASED GLUCOSE; Start 04/17/17 at 21:00 Glucose (Glutose) 22.5 gm Q15M PRN PO DECREASED GLUCOSE; Start 04/17/17 at 21: 00 Dextrose (D50w Syringe) 25 ml Q15M PRN IV DECREASED GLUCOSE Last administered on 05/18/17 20:46; Admin Dose 25 ML; Start 04/17/17 at 21:00 Dextrose (D50w Syringe) 50 ml Q15M PRN IV DECREASED GLUCOSE Last administered on 05/06/17 06:24; Admin Dose 50 ML; Start 04/17/17 at 21:00 Glucagon (Glucagen) 1 mg Q15M PRN IM DECREASED GLUCOSE; Start 04/17/17 at 21:00 Glucose (Glutose) 15 gm Q15M PRN BUCCAL DECREASED GLUCOSE; Start 04/17/17 at 21 :00 Ondansetron HCl (Zofran Inj) 4 mg Q6H PRN IV NAUSEA AND/OR VOMITING; Start at 00:30 Metoprolol Tartrate (Lopressor) 25 mg BID PO Last administered on 04/28/17 08: 14; Admin Dose 25 MG; Start 04/23/17 at 09:00; Status Future Hold Hydralazine HCl (Apresoline) 10 mg Q4H PRN IV SBP>170; Start 04/22/17 at 22:00 Nitroglycerin (Nitroglycerin (Sl Tab) 0.4 Mg) 1 tab Q5M PRN SL ANGINA; Start at 18:00 Acetaminophen/ Hydrocodone Bitart ([place] (5/325)) 1 tab Q6H PRN PO PAIN LEVEL 4 -7 Last administered on 05/29/17 17:25; Admin Dose 1 TAB; Start 05/03/17 at 03: 30 Acetaminophen (Tylenol Liquid) 650 mg Q4H PRN GTB PAIN AND OR ELEVATED TEMP Last administered on 05/12/17 18:12; Admin Dose 650 MG; Start 05/03/17 at 03:30 Zinc Acetate/ Diphenhydramine (Benadryl 2% Cr) 1 applic Q8 PRN TOP ITCHING Last administered on 05/18/17 03:31; Admin Dose 1 APPLIC; Start 05/07/17 at 11: 00 Lansoprazole (Prevacid) 30 mg BID@,18 GTB Last administered on 06/03/17 04: 57; Admin Dose 30 MG; Start 05/08/17 at 18:00 Epoetin Taqueria (Epogen (Esrd)) 2,000 units MoWeFr@17 SC Last administered on 18:26; Admin Dose 2,000 UNITS; Start 05/17/17 at 17:00 Alprazolam (Xanax) 0.5 mg Q6H PRN JT ANXIETY Last administered on 05/27/17 20: 31; Admin Dose 0.5 MG; Start 05/19/17 at 18:30 Hydralazine HCl (Apresoline) 50 mg Q6H PRN GTB ABOVE 160; Start 05/23/17 at 12: 00 Amlodipine Besylate (Norvasc) 5 mg BID GTB Last administered on 06/03/17 09: 16; Admin Dose 5 MG; Start 05/23/17 at 21:00 Metoclopramide HCl (Reglan) 5 mg TID PRN IV NAUSEA; Start 05/25/17 at 13:00 Insulin Aspart (Novolog Insulin Pen) (Adult SC Insulin - Mild Algorithm)... Q4 [place] Last administered on 06/03/17 13:15; Admin Dose 2 UNIT; Start 05/24/17 at 17:00 Clonidine HCl (Catapres-Tts 2 Patch) 1 patch Q7D TRANSDERM Last administered on 05/28/17 18:51; Admin Dose 1 PATCH; Start 05/28/17 at 18:00 Insulin Glargine (Lantus) 18 unit DAILY@20 SC Last administered on 06/02/17 20:34; Admin Dose 18 UNIT; Start 06/02/17 at 20:00 LESLI SHEA Jun 03, 2017 14:04
--- NOTE | 2017-06-03 17:28 | CONS ---
Date/Time of Note Date/Time of Note DATE: 06/03/17 TIME: 17:24 Assessment/Plan Assessment/Plan Chief Complaint/Hosp Course 1 CKD5 2.Hypernatremia HX 3.HTN 4 Ecoli UTI HX 5 Sepsis BETTER 6 Chronic AfibHX 7 CVA s/p G tube placement 8 Renal cyst 9 uremia 10 pul edemaBETTER plan continue HD FOR NOW NEED SNF PLACEMENT HD Problems: Consultation Date/Type/Reason Admit Date/Time Apr 17, 2017 at 16:39 Type of Consultation: renal Referring Provider: PORTIA OLIVER MD 24 HR Interval Summary Constitutional: no complaints Exam/Review of Systems Vital Signs Vitals Vital Signs Date Time Temp Pulse Resp B/P Pulse Ox O2 Delivery O2 Flow Rate FiO2 06/03/17 14:40 78 18 100 21 06/03/17 14:37 98.0 145/67 05/31/17 14:14 Room Air Intake and Output 06/02/17 06/02/17 06/03/17 15:00 23:00 07:00 Intake Total 600 ml Output Total 200 ml 400 ml Balance -200 ml 200 ml Exam Respiratory: clear to auscultation, normal air movement Cardiovascular: regular rate and rhythm Gastrointestinal: bowel sounds, soft Musculoskeletal: nl extremities to inspection Extremities: normal pulses Results Result Diagram: 06/03/17 0433 06/02/17 0502 Results 24 hrs Laboratory Tests Test 06/02/17 17:39 06/02/17 20:29 06/03/17 01:11 06/03/17 04:33 Bedside Glucose 171 192 197 White Blood Count 12.3 H Red Blood Count 3.11 L Hemoglobin 9.0 L Hematocrit 28.3 L Mean Corpuscular Volume 91.0 Mean Corpuscular Hemoglobin 28.9 L Mean Corpuscular Hemoglobin Concent 31.8 L Red Cell Distribution Width 18.0 H Platelet Count 155 Mean Platelet Volume 13.4 H Neutrophils % 55.6 Lymphocytes % 15.6 Monocytes % 7.0 Eosinophils % 20.4 H Basophils % 1.0 Nucleated Red Blood Cells % 0.0 Neutrophils # 6.8 Lymphocytes # 1.9 Monocytes # 0.9 Eosinophils # 2.5 H Basophils # 0.1 Nucleated Red Blood Cells # 0.0 Test 06/03/17 04:37 06/03/17 09:14 06/03/17 13:09 Bedside Glucose 186 155 188 Medications Medications Current Medications Acetaminophen (Tylenol Tab) 650 mg Q6H PRN GTB PAIN AND OR ELEVATED TEMP Last administered on 05/05/17 12:01; Admin Dose 650 MG; Start 04/17/17 at 18:00 Bisacodyl (Dulcolax Supp) 10 mg Q24H [place] Last administered on 06/02/17 18:25; Admin Dose 10 MG; Start 04/17/17 at 18:00 Diphenhydramine HCl (Benadryl) 25 mg Q6H PRN GTB ITCHING Last administered on 06/01/17 15:27; Admin Dose 25 MG; Start 04/17/17 at 18:00 Multivitamins Therapeutic (Theragran) 1 tab DAILY GTB Last administered on 09:15; Admin Dose 1 TAB; Start 04/18/17 at 09:00 Miscellaneous Information 1 ea NOTE XX ; Start 04/17/17 at 21:00 Glucose (Glutose) 15 gm Q15M PRN PO DECREASED GLUCOSE; Start 04/17/17 at 21:00 Glucose (Glutose) 22.5 gm Q15M PRN PO DECREASED GLUCOSE; Start 04/17/17 at 21: 00 Dextrose (D50w Syringe) 25 ml Q15M PRN IV DECREASED GLUCOSE Last administered on 05/18/17 20:46; Admin Dose 25 ML; Start 04/17/17 at 21:00 Dextrose (D50w Syringe) 50 ml Q15M PRN IV DECREASED GLUCOSE Last administered on 05/06/17 06:24; Admin Dose 50 ML; Start 04/17/17 at 21:00 Glucagon (Glucagen) 1 mg Q15M PRN IM DECREASED GLUCOSE; Start 04/17/17 at 21:00 Glucose (Glutose) 15 gm Q15M PRN BUCCAL DECREASED GLUCOSE; Start 04/17/17 at 21 :00 Ondansetron HCl (Zofran Inj) 4 mg Q6H PRN IV NAUSEA AND/OR VOMITING; Start at 00:30 Metoprolol Tartrate (Lopressor) 25 mg BID PO Last administered on 04/28/17 08: 14; Admin Dose 25 MG; Start 04/23/17 at 09:00; Status Future Hold Hydralazine HCl (Apresoline) 10 mg Q4H PRN IV SBP>170; Start 04/22/17 at 22:00 Nitroglycerin (Nitroglycerin (Sl Tab) 0.4 Mg) 1 tab Q5M PRN SL ANGINA; Start at 18:00 Acetaminophen/ Hydrocodone Bitart ([place] (5/325)) 1 tab Q6H PRN PO PAIN LEVEL 4 -7 Last administered on 05/29/17 17:25; Admin Dose 1 TAB; Start 05/03/17 at 03: 30 Acetaminophen (Tylenol Liquid) 650 mg Q4H PRN GTB PAIN AND OR ELEVATED TEMP Last administered on 05/12/17 18:12; Admin Dose 650 MG; Start 05/03/17 at 03:30 Zinc Acetate/ Diphenhydramine (Benadryl 2% Cr) 1 applic Q8 PRN TOP ITCHING Last administered on 05/18/17 03:31; Admin Dose 1 APPLIC; Start 05/07/17 at 11: 00 Lansoprazole (Prevacid) 30 mg BID@06,18 GTB Last administered on 06/03/17 04: 57; Admin Dose 30 MG; Start 05/08/17 at 18:00 Epoetin Taqueria (Epogen (Esrd)) 2,000 units MoWeFr@17 SC Last administered on 18:26; Admin Dose 2,000 UNITS; Start 05/17/17 at 17:00 Alprazolam (Xanax) 0.5 mg Q6H PRN JT ANXIETY Last administered on 05/27/17 20: 31; Admin Dose 0.5 MG; Start 05/19/17 at 18:30 Hydralazine HCl (Apresoline) 50 mg Q6H PRN GTB ABOVE 160; Start 05/23/17 at 12: 00 Amlodipine Besylate (Norvasc) 5 mg BID GTB Last administered on 06/03/17 09: 16; Admin Dose 5 MG; Start 05/23/17 at 21:00 Metoclopramide HCl (Reglan) 5 mg TID PRN IV NAUSEA; Start 05/25/17 at 13:00 Insulin Aspart (Novolog Insulin Pen) (Adult SC Insulin - Mild Algorithm)... Q4 [place] Last administered on 10/12/17at 13:15; Admin Dose 2 UNIT; Start 05/24/17 at 17:00 Clonidine HCl (Catapres-Tts 2 Patch) 1 patch Q7D TRANSDERM Last administered on 05/28/17 18:51; Admin Dose 1 PATCH; Start 05/28/17 at 18:00 Insulin Glargine (Lantus) 18 unit DAILY@20 SC Last administered on 06/02/17 20:34; Admin Dose 18 UNIT; Start 06/02/17 at 20:00 ABBY RAMOS MD Jun 03, 2017 17:28
[2017-06-03] MEDS: BISACODYL 10 MG SUPP PR SCH (17:52)
--- NOTE | 2017-06-03 20:39 | PN ---
Date/Time of Note Date/Time of Note DATE: 06/03/17 TIME: 20:39 Assessment/Plan Lines/Catheters IV Catheter Type (from Rust): Permacath Urinary Cath still in place: Yes Assessment/Plan Chief Complaint/Hosp Course - Acute kidney injury on chronic kidney disease. Continue hemodialysis per renal. Dr. Cheema is following in nephrology consultation. - Protein calorie malnutrition, increase G-tube feeding according to automatic winder operator recommendations - Status post post urinary tract infection. - History of cerebrovascular accident - Diabetes mellitus. Continue Lantus and NovoLog. - Diastolic congestive heart failure. Continue to monitor intake and output. - Paroxysmal atrial fibrillation, currently in sinus rhythm. - Hypertension. Continue Norvasc. - Hyperlipidemia. Continue statin. - Urinary retention with Flores catheter. - Dysphagia, status post PEG placement - Anemia of chronic disease, continue Epogen. - counseling services manager for half-way facility placement Further recommendations based on clinical course. Plan of care discussed with Dr. Patel Problems: Exam/Review of Systems Vital Signs Vitals Vital Signs Date Time Temp Pulse Resp B/P Pulse Ox O2 Delivery O2 Flow Rate FiO2 06/03/17 20:00 98.6 80 20 124/75 98 06/03/17 14:40 21 05/31/17 14:14 Room Air Intake and Output 06/02/17 06/02/17 06/03/17 15:00 23:00 07:00 Intake Total 600 ml Output Total 200 ml 400 ml Balance -200 ml 200 ml Results Result Diagram: 06/03/17 0433 06/02/17 0502 Results 24 hrs Laboratory Tests Test 06/03/17 01:11 06/03/17 04:33 06/03/17 04:37 06/03/17 09:14 Bedside Glucose 197 186 155 White Blood Count 12.3 H Red Blood Count 3.11 L Hemoglobin 9.0 L Hematocrit 28.3 L Mean Corpuscular Volume 91.0 Mean Corpuscular Hemoglobin 28.9 L Mean Corpuscular Hemoglobin Concent 31.8 L Red Cell Distribution Width 18.0 H Platelet Count 155 Mean Platelet Volume 13.4 H Neutrophils % 55.6 Lymphocytes % 15.6 Monocytes % 7.0 Eosinophils % 20.4 H Basophils % 1.0 Nucleated Red Blood Cells % 0.0 Neutrophils # 6.8 Lymphocytes # 1.9 Monocytes # 0.9 Eosinophils # 2.5 H Basophils # 0.1 Nucleated Red Blood Cells # 0.0 Test 06/03/17 13:09 06/03/17 17:19 Bedside Glucose 188 210 Medications Medications Current Medications Acetaminophen (Tylenol Tab) 650 mg Q6H PRN GTB PAIN AND OR ELEVATED TEMP Last administered on 05/05/17 12:01; Admin Dose 650 MG; Start 04/17/17 at 18:00 Bisacodyl (Dulcolax Supp) 10 mg Q24H [place] Last administered on 06/02/17 18:25; Admin Dose 10 MG; Start 04/17/17 at 18:00 Diphenhydramine HCl (Benadryl) 25 mg Q6H PRN GTB ITCHING Last administered on 06/01/17 15:27; Admin Dose 25 MG; Start 04/17/17 at 18:00 Multivitamins Therapeutic (Theragran) 1 tab DAILY GTB Last administered on 09:15; Admin Dose 1 TAB; Start 04/18/17 at 09:00 Miscellaneous Information 1 ea NOTE XX ; Start 04/17/17 at 21:00 Glucose (Glutose) 15 gm Q15M PRN PO DECREASED GLUCOSE; Start 04/17/17 at 21:00 Glucose (Glutose) 22.5 gm Q15M PRN PO DECREASED GLUCOSE; Start 04/17/17 at 21: 00 Dextrose (D50w Syringe) 25 ml Q15M PRN IV DECREASED GLUCOSE Last administered on 05/18/17 20:46; Admin Dose 25 ML; Start 04/17/17 at 21:00 Dextrose (D50w Syringe) 50 ml Q15M PRN IV DECREASED GLUCOSE Last administered on 05/06/17 06:24; Admin Dose 50 ML; Start 04/17/17 at 21:00 Glucagon (Glucagen) 1 mg Q15M PRN IM DECREASED GLUCOSE; Start 04/17/17 at 21:00 Glucose (Glutose) 15 gm Q15M PRN BUCCAL DECREASED GLUCOSE; Start 04/17/17 at 21 :00 Ondansetron HCl (Zofran Inj) 4 mg Q6H PRN IV NAUSEA AND/OR VOMITING; Start at 00:30 Metoprolol Tartrate (Lopressor) 25 mg BID PO Last administered on 04/28/17 08: 14; Admin Dose 25 MG; Start 04/23/17 at 09:00; Status Future Hold Hydralazine HCl (Apresoline) 10 mg Q4H PRN IV SBP>170; Start 04/22/17 at 22:00 Nitroglycerin (Nitroglycerin (Sl Tab) 0.4 Mg) 1 tab Q5M PRN SL ANGINA; Start at 18:00 Acetaminophen/ Hydrocodone Bitart ([place] (5/325)) 1 tab Q6H PRN PO PAIN LEVEL 4 -7 Last administered on 05/29/17 17:25; Admin Dose 1 TAB; Start 05/03/17 at 03: 30 Acetaminophen (Tylenol Liquid) 650 mg Q4H PRN GTB PAIN AND OR ELEVATED TEMP Last administered on 05/12/17 18:12; Admin Dose 650 MG; Start 05/03/17 at 03:30 Zinc Acetate/ Diphenhydramine (Benadryl 2% Cr) 1 applic Q8 PRN TOP ITCHING Last administered on 05/18/17 03:31; Admin Dose 1 APPLIC; Start 05/07/17 at 11: 00 Lansoprazole (Prevacid) 30 mg BID@06,18 GTB Last administered on 06/03/17 17: 52; Admin Dose 30 MG; Start 05/08/17 at 18:00 Epoetin Taqueria (Epogen (Esrd)) 2,000 units MoWeFr@17 SC Last administered on 18:26; Admin Dose 2,000 UNITS; Start 05/17/17 at 17:00 Alprazolam (Xanax) 0.5 mg Q6H PRN JT ANXIETY Last administered on 05/27/17 20: 31; Admin Dose 0.5 MG; Start 05/19/17 at 18:30 Hydralazine HCl (Apresoline) 50 mg Q6H PRN GTB ABOVE 160; Start 05/23/17 at 12: 00 Amlodipine Besylate (Norvasc) 5 mg BID GTB Last administered on 06/03/17 09: 16; Admin Dose 5 MG; Start 05/23/17 at 21:00 Metoclopramide HCl (Reglan) 5 mg TID PRN IV NAUSEA; Start 05/25/17 at 13:00 Insulin Aspart (Novolog Insulin Pen) (Adult SC Insulin - Mild Algorithm)... Q4 [place] Last administered on 06/03/17 17:24; Admin Dose 2 UNIT; Start 05/24/17 at 17:00 Clonidine HCl (Catapres-Tts 2 Patch) 1 patch Q7D TRANSDERM Last administered on 05/28/17 18:51; Admin Dose 1 PATCH; Start 05/28/17 at 18:00 Insulin Glargine (Lantus) 18 unit DAILY@20 SC Last administered on 06/02/17 20:34; Admin Dose 18 UNIT; Start 06/02/17 at 20:00 MARCY WEINER Jun 03, 2017 20:39
[2017-06-03] MEDS: INSULIN GLARGINE [LANtus] 3 ML PEN SC SCH (21:01)
[2017-06-04] MEDS: INSULIN ASPART [NOVOLOG] 3 ML PEN SC SCH ×5 (01:43→17:30)
[2017-06-04] MEDS: ALBUTEROL/IPRATROPIUM (NEB) 3 ML AMP HHN SCH ×3 (01:53→14:44)
[2017-06-04 03:14] VITALS: BP 124/61; RESP 18
[2017-06-04] MEDS: LANSOPRAZOLE 30 MG CAP GTB SCH ×2 (05:37→17:27)
[2017-06-04 07:00] VITALS: BP 136/65; RESP 18
[2017-06-04 08:00] VITALS: BP 124/60; PULSE 90; RESP 16
[2017-06-04] MEDS: MULTIVITAMINS THERAPEUTIC TAB GTB SCH (09:01)
[2017-06-04] MEDS: AMLODIPINE 5 MG TAB GTB SCH (09:03)
[2017-06-04 14:00] VITALS: BP 104/69; RESP 18
[2017-06-04 14:37] LABS: HAAIG REFLEX REFLEX FILED
--- NOTE | 2017-06-04 15:13 | CONS ---
Date/Time of Note Date/Time of Note DATE: 06/04/17 TIME: 15:12 Assessment/Plan Assessment/Plan Chief Complaint/Hosp Course IMP: 1.HTN-currently reasonable control 2.H/O PAF-Remains in SR by ECG 06/02 3.renal failure 4.dysphagia 5. AMS 6. Heart bbfxf-itkesfowu-ghhwoh HR.improved with holding BB overall some intermittent recurrence when on Tele still 7. Chest pain-resolved/negative troponin/no change on serial ecg 8. Occasional PVC's-when on tele 9. CHF-diastolic acute on chronic 10.UTI 11.anemia 12. Hyperkalemia-improved s/p kayexalate dose REcc: -Now on med-surg -serial ecg's to document rhythm -Continue clonidine TTS and norvasc at current dose and follow BP closely -Continue to Hold BB given wenkebach -Follow volume status closely -HD for volume removal -Follow MS closely Problems: Consultation Date/Type/Reason Admit Date/Time Apr 17, 2017 at 16:39 Initial Consult Date 04/18/17 Type of Consultation: cardiology Reason for Consultation PAFL Referring Provider: PORTAI OLIVER MD Exam/Review of Systems Vital Signs Vitals Vital Signs Date Time Temp Pulse Resp B/P Pulse Ox O2 Delivery O2 Flow Rate FiO2 06/04/17 14:44 81 20 99 21 06/04/17 08:00 98.8 124/60 Room Air Intake and Output 06/03/17 06/03/17 06/04/17 15:00 23:00 07:00 Intake Total 300 ml 600 ml 690 ml Output Total 1800 ml 450 ml 250 ml Balance -1500 ml 150 ml 440 ml Exam Review of Systems: CONSTITUTIONAL: No fevers, chills. PULMONARY: No sob CARDIOVASCULAR: No chest pain/palpitations GASTROINTESTINAL: No nausea/vomiting. GENITOURINARY: No hematuria/dysuria. MUSCULOSKELETAL: No myagias/arthalgias. PSYCHIATRIC: The patient denies depression. NEUROLOGIC: lethargic Constitutional: other (sleeping) Psych: no complaints Head: normocephalic ENMT: mucosa pink and moist Neck: jvd (9 cm water), supple Respiratory: diminished breath sounds (at bases/B) Cardiovascular: regular rate and rhythm Gastrointestinal: non-tender, soft Musculoskeletal: muscle tone (normal) Extremities: edema (none) Neurological: other (No focal deficits) Results Result Diagram: 06/03/17 0433 06/02/17 0502 Results 24 hrs Laboratory Tests Test 06/03/17 17:19 06/03/17 20:59 06/04/17 01:39 06/04/17 05:38 Bedside Glucose 210 185 201 175 Test 06/04/17 09:00 06/04/17 12:58 06/04/17 13:53 Bedside Glucose 200 151 Hepatitis B Surface Antigen Pending Hepatitis B Core Total Antibody Pending Hepatitis C Antibody Pending Medications Medications Current Medications Acetaminophen (Tylenol Tab) 650 mg Q6H PRN GTB PAIN AND OR ELEVATED TEMP Last administered on 05/05/17 12:01; Admin Dose 650 MG; Start 04/17/17 at 18:00 Bisacodyl (Dulcolax Supp) 10 mg Q24H [place] Last administered on 06/02/17 18:25; Admin Dose 10 MG; Start 04/17/17 at 18:00 Diphenhydramine HCl (Benadryl) 25 mg Q6H PRN GTB ITCHING Last administered on 06/01/17 15:27; Admin Dose 25 MG; Start 04/17/17 at 18:00 Multivitamins Therapeutic (Theragran) 1 tab DAILY GTB Last administered on 09:01; Admin Dose 1 TAB; Start 04/18/17 at 09:00 Miscellaneous Information 1 ea NOTE XX ; Start 04/17/17 at 21:00 Glucose (Glutose) 15 gm Q15M PRN PO DECREASED GLUCOSE; Start 04/17/17 at 21:00 Glucose (Glutose) 22.5 gm Q15M PRN PO DECREASED GLUCOSE; Start 04/17/17 at 21: 00 Dextrose (D50w Syringe) 25 ml Q15M PRN IV DECREASED GLUCOSE Last administered on 05/18/17 20:46; Admin Dose 25 ML; Start 04/17/17 at 21:00 Dextrose (D50w Syringe) 50 ml Q15M PRN IV DECREASED GLUCOSE Last administered on 05/06/17 06:24; Admin Dose 50 ML; Start 04/17/17 at 21:00 Glucagon (Glucagen) 1 mg Q15M PRN IM DECREASED GLUCOSE; Start 04/17/17 at 21:00 Glucose (Glutose) 15 gm Q15M PRN BUCCAL DECREASED GLUCOSE; Start 04/17/17 at 21 :00 Ondansetron HCl (Zofran Inj) 4 mg Q6H PRN IV NAUSEA AND/OR VOMITING; Start at 00:30 Metoprolol Tartrate (Lopressor) 25 mg BID PO Last administered on 04/28/17 08: 14; Admin Dose 25 MG; Start 04/23/17 at 09:00; Status Future Hold Hydralazine HCl (Apresoline) 10 mg Q4H PRN IV SBP>170; Start 04/22/17 at 22:00 Nitroglycerin (Nitroglycerin (Sl Tab) 0.4 Mg) 1 tab Q5M PRN SL ANGINA; Start at 18:00 Acetaminophen/ Hydrocodone Bitart ([place] (5/325)) 1 tab Q6H PRN PO PAIN LEVEL 4 -7 Last administered on 05/29/17 17:25; Admin Dose 1 TAB; Start 05/03/17 at 03: 30 Acetaminophen (Tylenol Liquid) 650 mg Q4H PRN GTB PAIN AND OR ELEVATED TEMP Last administered on 05/12/17 18:12; Admin Dose 650 MG; Start 05/03/17 at 03:30 Zinc Acetate/ Diphenhydramine (Benadryl 2% Cr) 1 applic Q8 PRN TOP ITCHING Last administered on 05/18/17 03:31; Admin Dose 1 APPLIC; Start 05/07/17 at 11: 00 Lansoprazole (Prevacid) 30 mg BID@06,18 GTB Last administered on 06/04/17 05: 37; Admin Dose 30 MG; Start 05/08/17 at 18:00 Epoetin Taqueria (Epogen (Esrd)) 2,000 units MoWeFr@17 SC Last administered on 18:26; Admin Dose 2,000 UNITS; Start 05/17/17 at 17:00 Alprazolam (Xanax) 0.5 mg Q6H PRN JT ANXIETY Last administered on 05/27/17 20: 31; Admin Dose 0.5 MG; Start 05/19/17 at 18:30 Hydralazine HCl (Apresoline) 50 mg Q6H PRN GTB ABOVE 160; Start 05/23/17 at 12: 00 Amlodipine Besylate (Norvasc) 5 mg BID GTB Last administered on 06/04/17 09: 03; Admin Dose 5 MG; Start 05/23/17 at 21:00 Metoclopramide HCl (Reglan) 5 mg TID PRN IV NAUSEA; Start 05/25/17 at 13:00 Insulin Aspart (Novolog Insulin Pen) (Adult SC Insulin - Mild Algorithm)... Q4 [place] Last administered on 06/04/17 13:01; Admin Dose 1 UNIT; Start 05/24/17 at 17:00 Clonidine HCl (Catapres-Tts 2 Patch) 1 patch Q7D TRANSDERM Last administered on 05/28/17 18:51; Admin Dose 1 PATCH; Start 05/28/17 at 18:00 Insulin Glargine (Lantus) 22 unit DAILY@20 SC ; Start 06/04/17 at 20:00 LESLI SHAE Jun 04, 2017 15:13
[2017-06-04 15:51] LABS: HEPATITIS B CORE ANTIBODY NEGATIVE (NEGATIVE)
--- NOTE | 2017-06-04 16:01 | RADRPT ---
Vent Rate: 74 bpm RR Interval: 0 msec AR Interval: 240 msec QRS Duration: 134 msec QT Interval: 444 msec QTC Interval: 492 msec P-R-T [place]: 5 - 45 - 13 degrees Sinus rhythm with 1st degree AV block Right bundle branch block Abnormal ECG Electronically Signed By: Romulo Wilkes [id number]
[2017-06-04] MEDS: EPOETIN 2000 UNITS/1 ML INJ (ESRD) SC SCH (16:34)
[2017-06-04] MEDS: BISACODYL 10 MG SUPP PR SCH (17:23)
[2017-06-04] MEDS: CLONIDINE 0.2 MG/24 HR PATCH TRANSDERM SCH (17:28)
[2017-06-04 17:30] VITALS: BP 111/54; PULSE 80; RESP 16
--- NOTE | 2017-06-04 17:50 | PN ---
Date/Time of Note Date/Time of Note DATE: 06/04/17 TIME: 17:49 Assessment/Plan VTE Prophylaxis VTE Prophylaxis Intervention: other Lines/Catheters IV Catheter Type (from Nrsg): PERMACATH Central line still needed: Yes Urinary Cath still in place: Yes Reason Cath still needed: other (indicate) Assessment/Plan Chief Complaint/Hosp Course 1 CKD5 2.Hypernatremia HX 3.HTN 4 Ecoli UTI HX 5 Sepsis BETTER 6 Chronic AfibHX 7 CVA s/p G tube placement 8 Renal cyst 9 uremia 10 pul edemaBETTER plan continue HD FOR NOW NEED SNF PLACEMENT HD D/W STAFF Problems: Subjective 24 Hr Interval Summary Subjective hx not possible: other (NO DISTRESS) Exam/Review of Systems Vital Signs Vitals Vital Signs Date Time Temp Pulse Resp B/P Pulse Ox O2 Delivery O2 Flow Rate FiO2 06/04/17 17:30 98.6 80 16 111/54 95 Room Air 06/04/17 14:44 21 Intake and Output 06/03/17 06/03/17 06/04/17 15:00 23:00 07:00 Intake Total 300 ml 600 ml 690 ml Output Total 1800 ml 450 ml 250 ml Balance -1500 ml 150 ml 440 ml Exam Neck: supple Respiratory: clear to auscultation Cardiovascular: regular rate and rhythm Gastrointestinal: soft Musculoskeletal: nl extremities to inspection Extremities: normal pulses Results Result Diagram: 06/03/17 0433 06/02/17 0502 Results 24 hrs Laboratory Tests Test 06/03/17 20:59 06/04/17 01:39 06/04/17 05:38 06/04/17 09:00 Bedside Glucose 185 201 175 200 Test 06/04/17 12:58 06/04/17 13:53 06/04/17 17:20 Bedside Glucose 151 150 Hepatitis B Surface Antigen NEGATIVE Hepatitis B Core Total Antibody NEGATIVE Hepatitis C Antibody NEGATIVE Medications Medications Current Medications Acetaminophen (Tylenol Tab) 650 mg Q6H PRN GTB PAIN AND OR ELEVATED TEMP Last administered on 05/05/17 12:01; Admin Dose 650 MG; Start 04/17/17 at 18:00 Bisacodyl (Dulcolax Supp) 10 mg Q24H SC Last administered on 06/02/17 18:25; Admin Dose 10 MG; Start 04/17/17 at 18:00 Diphenhydramine HCl (Benadryl) 25 mg Q6H PRN GTB ITCHING Last administered on 06/01/17 15:27; Admin Dose 25 MG; Start 04/17/17 at 18:00 Multivitamins Therapeutic (Theragran) 1 tab DAILY GTB Last administered on 09:01; Admin Dose 1 TAB; Start 04/18/17 at 09:00 Miscellaneous Information 1 ea NOTE XX ; Start 04/17/17 at 21:00 Glucose (Glutose) 15 gm Q15M PRN PO DECREASED GLUCOSE; Start 04/17/17 at 21:00 Glucose (Glutose) 22.5 gm Q15M PRN PO DECREASED GLUCOSE; Start 04/17/17 at 21: 00 Dextrose (D50w Syringe) 25 ml Q15M PRN IV DECREASED GLUCOSE Last administered on 05/18/17 20:46; Admin Dose 25 ML; Start 04/17/17 at 21:00 Dextrose (D50w Syringe) 50 ml Q15M PRN IV DECREASED GLUCOSE Last administered on 05/06/17 06:24; Admin Dose 50 ML; Start 04/17/17 at 21:00 Glucagon (Glucagen) 1 mg Q15M PRN IM DECREASED GLUCOSE; Start 04/17/17 at 21:00 Glucose (Glutose) 15 gm Q15M PRN BUCCAL DECREASED GLUCOSE; Start 04/17/17 at 21 :00 Ondansetron HCl (Zofran Inj) 4 mg Q6H PRN IV NAUSEA AND/OR VOMITING; Start at 00:30 Metoprolol Tartrate (Lopressor) 25 mg BID PO Last administered on 04/28/17 08: 14; Admin Dose 25 MG; Start 04/23/17 at 09:00; Status Future Hold Hydralazine HCl (Apresoline) 10 mg Q4H PRN IV SBP>170; Start 04/22/17 at 22:00 Nitroglycerin (Nitroglycerin (Sl Tab) 0.4 Mg) 1 tab Q5M PRN SL ANGINA; Start at 18:00 Acetaminophen/ Hydrocodone Bitart ([place] (5/325)) 1 tab Q6H PRN PO PAIN LEVEL 4 -7 Last administered on 05/29/17 17:25; Admin Dose 1 TAB; Start 05/03/17 at 03: 30 Acetaminophen (Tylenol Liquid) 650 mg Q4H PRN GTB PAIN AND OR ELEVATED TEMP Last administered on 05/12/17 18:12; Admin Dose 650 MG; Start 05/03/17 at 03:30 Zinc Acetate/ Diphenhydramine (Benadryl 2% Cr) 1 applic Q8 PRN TOP ITCHING Last administered on 05/18/17 03:31; Admin Dose 1 APPLIC; Start 05/07/17 at 11: 00 Lansoprazole (Prevacid) 30 mg BID@06,18 GTB Last administered on 06/04/17 17: 27; Admin Dose 30 MG; Start 05/08/17 at 18:00 Epoetin [place] (Epogen (Esrd)) 2,000 units MoWeFr@17 SC Last administered on 16:34; Admin Dose 2,000 UNITS; Start 05/17/17 at 17:00 Alprazolam (Xanax) 0.5 mg Q6H PRN JT ANXIETY Last administered on 05/27/17 20: 31; Admin Dose 0.5 MG; Start 05/19/17 at 18:30 Hydralazine HCl (Apresoline) 50 mg Q6H PRN GTB ABOVE 160; Start 05/23/17 at 12: 00 Amlodipine Besylate (Norvasc) 5 mg BID GTB Last administered on 06/04/17 09: 03; Admin Dose 5 MG; Start 05/23/17 at 21:00 Metoclopramide HCl (Reglan) 5 mg TID PRN IV NAUSEA; Start 05/25/17 at 13:00 Insulin Aspart (Novolog Insulin Pen) (Adult SC Insulin - Mild Algorithm)... Q4 SC Last administered on 06/04/17 17:30; Admin Dose 1 UNIT; Start 05/24/17 at 17:00 Clonidine HCl (Catapres-Tts 2 Patch) 1 patch Q7D TRANSDERM Last administered on 05/28/17 18:51; Admin Dose 1 PATCH; Start 05/28/17 at 18:00 Insulin Glargine (Lantus) 22 unit DAILY@20 SC ; Start 06/04/17 at 20:00 ABBY RMAOS MD Jun 04, 2017 17:50
--- NOTE | 2017-06-04 19:33 | DS ---
Date/Time of Note Date/Time of Note DATE: 06/04/17 TIME: 19:32 Discharge Summary Admission/Discharge Info Admit Date/Time Apr 17, 2017 at 16:39 Discharge Date/Time Jun 04, 2017 at 17:50 Patient Condition: Stable Hx of Present Illness HPI This is a 72-year-old male with extensive medical history including AMS, paroxysmal atrial fibrillation, hypertension, diabetes, history of stroke with lower extremity weakness, history of GI bleed and chronic kidney disease, sP PEG tube placement urinary retention with indwelling FC , and with a known history of blindness, hematemesis. Patient is admitted with complaining of dizziness upon awakening this morning. He was not able to stand today eavestrough, normally he ambulates with a walker, No shortness of breath at rest or exertion reported. He denied a headache, chest pain, fevers or shaking no chills. He has an indwelling Flores catheter that was changed roughly 1 month ago. He also has a PEG tube. No coughing, choking reported. No antipyretics were given prior to arrival. The patient has not had any recent hospitalizations. ROS All systems reviewed and are negative except as per history of present illness. Allergies No Known Allergy (Unverified , 04/17/17) Hospital Course - Acute kidney injury on chronic kidney disease. Continue hemodialysis per renal. Dr. Cheema is following in nephrology consultation. - Protein calorie malnutrition, increase G-tube feeding according to rivet tester recommendations - Status post post urinary tract infection. - History of cerebrovascular accident - Diabetes mellitus. Continue Lantus and NovoLog. - Diastolic congestive heart failure. Continue to monitor intake and output. - Paroxysmal atrial fibrillation, currently in sinus rhythm. - Hypertension. Continue Norvasc. - Hyperlipidemia. Continue statin. - Urinary retention with Flores catheter. - Dysphagia, status post PEG placement - Anemia of chronic disease, continue Epogen. - manager analysis for [facility] facility placement Home Meds Reported Medications Multivitamin (MULTI VITAMIN DAILY) 1 Each Tablet, 1 TAB GTB DAILY, TAB 04/17/17 Glucagon,Human Recombinant (Glucagon Emergency Kit) 1 Mg Kit, 1 MG IJ PRN, KIT 04/17/17 Alendronate Sodium* (Fosamax*) 70 Mg Tablet, 70 MG GTB EVERY WEDNESDAY, #4 TAB 04/17/17 Tamsulosin Hcl* (Flomax*) 0.4 Mg Cap.er.24h, 0.4 MG GTB DAILY, CAP 04/17/17 Cranberry Extract (Cranberry) 425 Mg Capsule, 425 MG GTB DAILY, CAP 04/17/17 Bisacodyl* (Bisacodyl*) 10 Mg Supp, 10 MG KS Q24H for CONSTIPATION, SUPP 04/17/17 Diphenhydramine Hcl* (Benadryl*) 25 Mg Cap, 25 MG GTB Q6H Y for ITCHING, CAP 04/17/17 Discontinued Reported Medications Omeprazole* (Omeprazole*) 20 Mg Capsule.dr, 20 MG GTB DAILY, #30 CAP 04/17/17 Gabapentin* (Neurontin*) 300 Mg Capsule, 300 MG GTB DAILY, #60 CAP 04/17/17 Melatonin (Melatonin) 3 Mg Tablet.sa, 3 MG GTB HS, TAB.SA 04/17/17 Insulin Glargine* (Lantus*) 100 Unit/Ml Soln, 20 UNIT SC QHS, #1 VIAL 04/17/17 Hydralazine Hcl* (Hydralazine Hcl*) 50 Mg Tab, 50 MG GTB Q8 Y for ELEVATED BLOOD PRESSURE, #90 TAB HOLD FOR SBP BELOW 110 HR BELOW 60 04/17/17 Atorvastatin Calcium* (Atorvastatin Calcium*) 20 Mg Tablet, 20 MG GTB QHS, #30 TAB 04/17/17 Amiodarone Hcl* (Amiodarone Hcl*) 100 Mg Tablet, 100 MG GTB DAILY, #30 TAB 04/17/17 Acetaminophen* (Acetaminophen*) 650 Mg Tablet, 650 MG GTB Q6H Y for PAIN AND OR ELEVATED TEMP, #30 TAB 04/17/17 Insulin Aspart* (Novolog Insulin Pen*) 100 Unit/Ml Soln, 0 SC .SLIDING SCALE AC for DIABETES, EA INJECT PER SLIDING SCALE: IF 150-200=1UNIT; 201-250= 2UNITS; 251-300=3UNITS; 301-350=4UNITS; 351-400=5UNITS;BG>400=6UNITS AND CALL MD, BG<70 MAY GIVE NECTAR 8oz ORANGE JUICE IF CONSCIOUS, SC BEFORE MEALS FOR DIABETES ROTATE SITE 12/29/16 Follow-up Plan Follow-up with PMD in 2 weeks, follow-up in hemodialysis center for next hemodialysis Primary Care Provider Aravind Patel MD Pending Labs Laboratory Tests Test 06/03/17 20:59 06/04/17 01:39 06/04/17 05:38 06/04/17 09:00 Bedside Glucose 185mg/dL (70-220) 201mg/dL (70-220) 175mg/dL (70-220) 200mg/dL (70-220) Test 06/04/17 12:58 06/04/17 13:53 06/04/17 17:20 Bedside Glucose 151mg/dL (70-220) 150mg/dL (70-220) Hepatitis B Surface Antigen NEGATIVE (NEGATIVE) Hepatitis B Core Total Antibody NEGATIVE (NEGATIVE) Hepatitis C Antibody NEGATIVE (NEGATIVE) GEOVANY IBARRA Jun 04, 2017 19:33
[2017-06-04] MEDS ORDERED: INSULIN GLARGINE [LANtus] 3 ML PEN SC SCH (20:00)
== END 2017-06-04 17:50 | DRG 871 ==
LOC: E/R 13:37 → MS4 16:39 → MS1 05-12 00:30
PROVIDERS: ADMIT Internal Medicine; ATTEND Internal Medicine
PROC: 0JH63XZ Insertion of Tunneled Vascular Access Device into Chest Subcutaneous Tissue and Fascia, Percutaneous Approach (ICD-10-PCS; principal; 2017-04-26)
PROC: 02H633Z Insertion of Infusion Device into Right Atrium, Percutaneous Approach (ICD-10-PCS; 2017-04-26)
PROC: B214YZZ Fluoroscopy of Right Heart using Other Contrast (ICD-10-PCS; 2017-04-26)
PROC: 30233N1 Transfusion of Nonautologous Red Blood Cells into Peripheral Vein, Percutaneous Approach (ICD-10-PCS; 2017-05-04)
PROC: 5A1D70Z Performance of Urinary Filtration, Intermittent, Less than 6 Hours Per Day (ICD-10-PCS; 2017-05-06)
DX: A41.9 Sepsis, unspecified organism (principal); I50.33 Acute on chronic diastolic (congestive) heart failure; L89.152 Pressure ulcer of sacral region, stage 2; G93.49 Other encephalopathy; N17.9 Acute kidney failure, unspecified; E87.0 Hyperosmolality and hypernatremia; N18.6 End stage renal disease; E44.0 Moderate protein-calorie malnutrition; F03.90 Unspecified dementia, unspecified severity, without behavioral disturbance, psychotic disturbance, mood disturbance, and anxiety; I13.2 Hypertensive heart and chronic kidney disease with heart failure and with stage 5 chronic kidney disease, or end stage renal disease; N30.00 Acute cystitis without hematuria; Z68.1 Body mass index [BMI] 19.9 or less, adult; E11.22 Type 2 diabetes mellitus with diabetic chronic kidney disease; I48.0 Paroxysmal atrial fibrillation; E83.39 Other disorders of phosphorus metabolism; E87.5 Hyperkalemia; E11.65 Type 2 diabetes mellitus with hyperglycemia; R13.10 Dysphagia, unspecified; I44.1 Atrioventricular block, second degree; E86.0 Dehydration; N28.1 Cyst of kidney, acquired; Z93.1 Gastrostomy status; N31.9 Neuromuscular dysfunction of bladder, unspecified; D63.8 Anemia in other chronic diseases classified elsewhere; I25.10 Atherosclerotic heart disease of native coronary artery without angina pectoris; R33.9 Retention of urine, unspecified; E78.5 Hyperlipidemia, unspecified; E87.6 Hypokalemia; B96.20 Unspecified Escherichia coli [E. coli] as the cause of diseases classified elsewhere; H54.8 Legal blindness, as defined in USA; Z99.2 Dependence on renal dialysis; Z79.4 Long term (current) use of insulin
CPT/HCPCS: 36430; 36558; 36600; 71010; 74000; 76775; 76942; 80048; 80053; 80076; 81001; 81003; 82150; 82270; 82570; 82607; 82728; 82746; 82803; 82962; 83540; 83605; 83690; 83735; 84100; 84132; 84155; 84300; 84443; 84484; 84560; 85014; 85018; 85025; 85045; 85610; 85730; 86644; 86704; 86709; 86803; 86850; 86900; 86901; 86920; 87040; 87081; 87086; 87340; 90935; 93005; 93306; 94640; 94664; 96374; 96375; 97110; 97116; 97162; 97530; J1940; A4310; C9113; J0690; J0692; J0696; J0886; J1644; J1815; J2060; J2150; J2765; J3010; J3370; J7030; J7042; J7050; P9016; P9047

== ENCOUNTER 2017-06-30 14:19 | Inpatient (IN) | payer OTHER ==
[~2017-06-30] VITALS: Ht 162.6 cm; Wt 48.1 kg
[~2017-06-30 14:19] MED LIST changes: -ACET325T45 PO; +ALEN70TA30 GTB; -AMIO100T4 PO; -ATOR40TA68 PO; +BEN25 GTB; +BISA10SU75 PR; +CRAN425C2 GTB; -CRAN425C2 PO; -DOCU-159 PO; -GABA300C16 PO; +GLUC1KIT IJ; -HYDR-3671 PO; -IPRA3AMP INHALATION; -MEGE40TA PO; -MELA3TAB51 PO; -MULT-105 PO; +MULT-761 GTB; -NOVO3I SC; -ONDA4TAB95 PO; -PANT40TA3 PO; +TAMS-14 GTB; -TAMS0.4C2 PO; -[UNRECOGNIZED DRUG - CODE] RC
[2017-06-30] MEDS ORDERED: AMLO5TAB4 GTB (14:55)
[2017-06-30] MEDS ORDERED: ACET-2047 GTB (14:55)
[2017-06-30] MEDS ORDERED: CLON0.2T5 PO (14:56)
[2017-06-30] MEDS ORDERED: DOCU-144 GTB (14:57)
[2017-06-30] MEDS ORDERED: HYDR-905 PO (14:58)
[2017-06-30] MEDS ORDERED: LANT3I SC (14:58)
[2017-06-30] MEDS ORDERED: HYDR-3672 PO (14:58)
[2017-06-30] MEDS ORDERED: NITR0.4T32 SL (14:59)
[2017-06-30] MEDS ORDERED: LANS30CA GTB (14:59)
[2017-06-30] MEDS ORDERED: CRAN3875 GTB (15:00)
[2017-06-30] MEDS ORDERED: ASCO500C7 GTB (15:00)
[2017-06-30] MEDS ORDERED: ZINC220T GTB (15:00)
[2017-06-30] MEDS ORDERED: IODIXANOL LOCM 100 ML BTL ONE (16:11)
[2017-06-30] MEDS ORDERED: SOD CHLORIDE 0.9% 100 ML ONE (16:11)
[2017-06-30 16:16] LABS: BASOPHIL # 0.1 10^3/ul (0.0-0.1); BASOPHILS % 0.3 % (0.0-2.0); EOSINOPHILS # 0.2 10^3/ul (0.0-0.5); EOSINOPHILS % 0.9 % (0.0-7.0); HEMATOCRIT 28.3 % (42.0-52.0); HEMOGLOBIN 9.3 g/dl (14.0-18.0); LYMPHOCYTES # 1.7 10^3/ul (0.8-2.9); LYMPHOCYTES % 7.1 % (15.0-51.0); MEAN CORPUSCULAR HEMOGLOBIN 30.1 pg (29.0-33.0); MEAN CORPUSCULAR HGB CONC 32.9 g/dl (32.0-37.0); MEAN CORPUSCULAR VOLUME 91.6 fl (82.0-101.0); MEAN PLATELET VOLUME 11.4 fl (7.4-10.4); MONOCYTE # 1.3 10^3/ul (0.3-0.9); MONOCYTES % 5.6 % (0.0-11.0); NEUTROPHIL # 19.8 10^3/ul (1.6-7.5); NEUTROPHILS % 85.2 % (39.0-77.0); PLATELET COUNT 437 10^3/UL (140-415); RED BLOOD COUNT 3.09 10^6/ul (4.70-6.10); WHITE BLOOD COUNT 23.2 10^3/ul (4.8-10.8)
[2017-06-30 16:38] LABS: ALBUMIN 3.2 g/dl (3.3-4.9); ALBUMIN/GLOBULIN RATIO 0.68; CALCIUM 8.8 mg/dl (8.4-10.2); CREATININE 5.01 mg/dl (0.61-1.24); INR 1.03; POTASSIUM 3.4 mmol/L (3.5-5.1); PROTIME 13.5 Sec (12.2-14.2); PT RATIO 1.1; TOTAL PROTEIN 7.9 g/dl (6.1-8.1)
[2017-06-30 16:39] LABS: PARTIAL THROMBOPLASTIN TIME 42.2 Sec (25.0-35.0)
[2017-06-30 16:40] LABS: ADD UMIC YES; UR ASCORBIC ACID 40 mg/dL (NEGATIVE); UR BACTERIA MODERATE /HPF (NONE SEEN); UR BILIRUBIN (Dip) NEGATIVE (NEGATIVE); UR BLOOD (Dip) NEGATIVE (NEGATIVE); UR CLARITY CLOUDY (CLEAR); UR COLOR YELLOW (YELLOW); UR GLUCOSE (Dip) NEGATIVE (NEGATIVE); UR KETONES (Dip) NEGATIVE (NEGATIVE); UR LEUKOCYTE ESTERASE (Dip) 3+ Leu/ul (NEGATIVE); UR MUCUS FEW /HPF (NONE SEEN); UR NITRITE (Dip) NEGATIVE (NEGATIVE); UR RBC 4 /HPF (0-5); UR SPECIFIC GRAVITY (Dip) 1.014 (1.003-1.030); UR TOTAL PROTEIN (Dip) 3+ mg/dl (NEGATIVE); UR UROBILINOGEN (Dip) NEGATIVE (NEGATIVE)
--- NOTE | 2017-06-30 17:05 | RADRPT ---
PROCEDURE: XR Chest. CLINICAL INDICATION: Sepsis. TECHNIQUE: Single frontal view. COMPARISON: 05/28/2017. FINDINGS: There is a tunneled right internal jugular vein dialysis catheter with the tip in the upper right at rium in satisfactory position. The lungs are clear. The heart size is normal. There is calcification in the aorta consistent with atherosclerosis. There is no pleural effusion. There is no pneumothorax. IMPRESSION: 1. Dialysis catheter in satisfactory position. 2. Atherosclerosis. 3. Clear lungs. 4. No change from 05/28/2017. RPTAT: QQ .Allen Mackey MD, MD Date Time Electronically viewed and signed by .Allen Mackey MD, MD on 06/30/2017 17:04 .R/
--- NOTE | 2017-06-30 17:08 | RADRPT ---
AMENDMENT: 06/30/2017 5:14:41 PM Anand Kc M.d Impression: 5. Gallbladder wall thickening with minimal pericholecystic edema. Consider ultrasound correlation a s clinically warranted. PROCEDURE: CT of the abdomen and pelvis CLINICAL INDICATION: Abdominal pain TECHNIQUE: The study was performed utilizing a GE [employer] 64-slice multidetector CT scanner. Dir ect spiral axial sections were obtained through the abdomen and pelvis with intravenous contrast. Af ter administration of 80 cc of Visipaque 320, postcontrast images were obtained. Coronal and sagitt al reformatted images were performed. The CTDI vol is 7.28 mGy and the DLP is 407.39 mGy-cm. The im ages were reviewed on a PACS workstation. One or more of the following dose reduction techniques were used: Automated exposure control. Adjustment of the mA and/or kV according to patient size. Use of iterative reconstruction technique. COMPARISON: 11/05/2016 FINDINGS: CT abdomen: Patchy bibasilar air space disease is seen. The heart is enlarged. No pericardial effus ion is seen. Aortic and coronary vascular calcifications are seen. A central venous catheter is seen in the right atrium and is incompletely visualized. The liver is normal in size and contour. No focal liver lesions or intrahepatic biliary dilatation is seen. The gallbladder wall appears to be thickened with minimal pericholecystic edema. No gallsto ne is seen. A small calcification in the spleen is once again seen. Small punctate calcifications in the pancreas are once again seen. The spleen, pancreas, and adrenal glands are otherwise unremarka ble in appearance. The kidneys are normal in size and contour enhance normally. No evidence of hydr onephrosis or nephrolithiasis is seen. Small bilateral renal cysts are once again seen. A gastrostomy tube is seen in the gastric lumen. The stomach is otherwise unremarkable. The large b owel is stool-filled. Right hemicolon diverticulosis is seen without evidence of diverticulitis. The small and remainder of the large bowel are otherwise unremarkable in course and caliber. No inflam matory changes in the periappendiceal region is seen. No enlarged lymph nodes or fluid collections a re seen. The aorta is normal in caliber. Aortic calcifications are seen. CT pelvis: No pelvic mass, adenopathy, or focal fluid collection is seen. There is no free fluid. A Flores catheter is seen in the urinary bladder. Nondependent air in the urinary bladder is seen wh ich may be from the bladder instrumentation. The pelvic organs are unremarkable. No osseous lesions are seen. Degenerative spondylosis of the lumbar spine is seen. IMPRESSION: 1. Patchy bibasilar air space disease which may represent infiltrates. Continued chest x-ray follow -up is suggested. 2. Otherwise, no acute pathology in the abdomen and pelvis. 3. Stool filled large bowel with diverticulosis in the right hemicolon. 4. Flores catheter and gastrostomy tube identified. RPTAT: HPNM Physician Nichole Date Time Electronically viewed and signed by Physician Nichole on 06/30/2017 17:15 /
[2017-06-30] MEDS ORDERED: ONDANSETRON 4 MG INJ IV STA (17:13)
[2017-06-30] MEDS ORDERED: CEFEPIME 1GM/50 ML (PMX) 50 ML IVPB ONE (17:30)
--- NOTE | 2017-06-30 18:58 | ERD ---
ER Documentation Chief Complaint Chief Complaint pt from [facility] for elevated WBC HPI 72-year-old male with history of end-stage renal disease on dialysis MWF, paroxysmal atrial fibrillation, hypertension, diabetes, CVA and anemia presents to the ED from [facility] for evaluation of worsening leukocytosis. Patient complains of generalized, abdominal pain which he has had intermittently for some time. Denies nausea or vomiting. Recently diagnosed with urinary tract infection and treated with Levaquin but leukocytosis has been worsening. No chest pain, shortness of breath or palpitations. No hematemesis, hematochezia or melanotic stools. No documented fevers or chills. ROS All systems reviewed and are negative except as per history of present illness. Medications Home Meds Reported Medications Zinc Sulfate* (Zinc Sulfate*) 220 Mg Tablet, 220 MG GTB DAILY, TAB 06/30/17 Ascorbic Acid* (Vitamin C*) 500 Mg Capsule.sa, 500 MG GTB DAILY, CAP 06/30/17 Cran/Vitc/Mannose/Inulin/Brom (Uti-Stat Liquid) 3,875 Mg/30 Ml Liquid, 3875 MG GTB TID 06/30/17 Lansoprazole* (Lansoprazole*) 30 Mg Capsule.dr, 30 MG GTB BID, CAP 06/30/17 Nitroglycerin* (Nitroglycerin* SL) 0.4 Mg Tab.subl, 0.4 MG SL Q5MIN Y for CHEST PAIN, BOTTLE 06/30/17 Insulin Glargine* (Lantus*) 100 Unit/Ml Soln, 18 UNIT SC QHS, #1 VIAL 06/30/17 Hydrocodone/Acetaminophen (Vass 7.5-325 Tablet) 1 Each Tablet, 1 EACH PO Q6 Y for SEVERE PAIN LEVEL 7-10, TAB 06/30/17 Hydralazine Hcl* (Hydralazine Hcl*) 50 Mg Tab, 50 MG PO Q6 Y for ELEVATED BLOOD PRESSURE, #120 TAB 06/30/17 Docusate Sodium* (Colace*) 100 Mg Capsule, 200 MG GTB QHS Y for CONSTIPATION, # 30 CAP 06/30/17 Clonidine Hcl* (Clonidine Hcl*) 0.2 Mg Tablet, 0.2 MG PO DAILY, TAB 06/30/17 Amlodipine Besylate* (Norvasc*) 5 Mg Tablet, 5 MG GTB BID, TAB 06/30/17 Acetaminophen* (Acetaminophen*) 650 Mg Tablet, 650 MG GTB DAILY Y for PAIN AND OR ELEVATED TEMP, #30 TAB 06/30/17 Glucagon,Human Recombinant (Glucagon Emergency Kit) 1 Mg Kit, 1 MG IJ PRN, KIT 04/17/17 Alendronate Sodium* (Fosamax*) 70 Mg Tablet, 70 MG GTB EVERY WEDNESDAY, #4 TAB 04/17/17 Tamsulosin Hcl* (Flomax*) 0.4 Mg Cap.er.24h, 0.4 MG GTB DAILY, CAP 04/17/17 Cranberry Extract (Cranberry) 425 Mg Capsule, 425 MG GTB DAILY, CAP 04/17/17 Bisacodyl* (Bisacodyl*) 10 Mg Supp, 10 MG DE Q24H for CONSTIPATION, SUPP 04/17/17 Diphenhydramine Hcl* (Benadryl*) 25 Mg Cap, 25 MG GTB Q6H Y for ITCHING, CAP 04/17/17 Discontinued Reported Medications Multivitamin (MULTI VITAMIN DAILY) 1 Each Tablet, 1 TAB GTB DAILY, TAB 04/17/17 Allergies Allergies: Coded Allergies: No Known Allergy (Unverified , 04/17/17) PMhx/Soc Reviewed in chart. As per HPI. History of Surgery: Yes (Peg placement) Anesthesia Reaction: No Hx Neurological Disorder: Yes (Neuropathy) Hx Respiratory Disorders: No Hx Cardiac Disorders: Yes (A.fib, HTN) Hx Psychiatric Problems: No Hx Miscellaneous Medical Probl: No Hx Alcohol Use: No Hx Substance Use: No Hx Tobacco Use: No Smoking Status: Never smoker FmHx No stroke or cancer Physical Exam Vitals Vital Signs Date Time Temp Pulse Resp B/P Pulse Ox O2 Delivery O2 Flow Rate FiO2 06/30/17 19:00 98.7 87 18 137/51 100 Room Air 06/30/17 15:24 98.6 77 20 119/65 99 Room Air 06/30/17 14:32 98.1 83 18 119/65 98 Physical Exam Const: Alert, moderate distress. Head: Atraumatic Eyes: Normal Conjunctiva ENT: Normal External Ears, Nose and Mouth. Neck: Full range of motion. Resp: Clear to auscultation bilaterally. Dialysis catheter without erythema , induration or drainage. Cardio: Regular rate and rhythm, no murmurs Abd: Soft, mild, generalized tenderness. No rebound or guarding. Skin: No petechiae or rashes Back: No midline or flank tenderness Ext: No cyanosis, or edema Neur: Awake and alert Psych: Normal Mood and Affect Result Diagram: 07/01/17 0506 07/01/17 0506 Results 24 hrs Laboratory Tests Test 06/30/17 15:40 06/30/17 15:45 White Blood Count 23.210^3/ul Red Blood Count 3.0910^6/ul Hemoglobin 9.3g/dl Hematocrit 28.3% Mean Corpuscular Volume 91.6fl Mean Corpuscular Hemoglobin 30.1pg Mean Corpuscular Hemoglobin Concent 32.9g/dl Red Cell Distribution Width 14.0% Platelet Count 96616^3/UL Mean Platelet Volume 11.4fl Neutrophils % 85.2% Lymphocytes % 7.1% Monocytes % 5.6% Eosinophils % 0.9% Basophils % 0.3% Nucleated Red Blood Cells % 0.0/100WBC Neutrophils # 19.810^3/ul Lymphocytes # 1.710^3/ul Monocytes # 1.310^3/ul Eosinophils # 0.210^3/ul Basophils # 0.110^3/ul Nucleated Red Blood Cells # 0.010^3/ul Prothrombin Time 13.5Sec Prothrombin Time Ratio 1.1 INR International Normalized Ratio 1.03 Activated Partial Thromboplast Time 42.2Sec Urine Color YELLOW Urine Clarity CLOUDY Urine pH 5.0 Urine Specific [place] 1.014 Urine Ketones NEGATIVEmg/dL Urine Nitrite NEGATIVEmg/dL Urine Bilirubin NEGATIVEmg/dL Urine Urobilinogen NEGATIVEmg/dL Urine Leukocyte Esterase 3+Lisa/ul Urine Microscopic RBC 4/HPF Urine Microscopic WBC > 182/HPF Urine Bacteria MODERATE/HPF Urine Mucus FEW/HPF Urine Hemoglobin NEGATIVEmg/dL Urine Glucose NEGATIVEmg/dL Urine Total Protein 3+mg/dl Sodium Level 133mmol/L Potassium Level 3.4mmol/L Chloride Level 90mmol/L Carbon Dioxide Level 29mmol/L Anion Gap 17 Blood Urea Nitrogen 119mg/dl Creatinine 5.01mg/dl Glucose Level 175mg/dl Calcium Level 8.8mg/dl Total Bilirubin 0.0mg/dl Direct Bilirubin 0.00mg/dl Indirect Bilirubin 0.0mg/dl Aspartate Amino Transf (AST/SGOT) 37IU/L Alanine Aminotransferase (ALT/SGPT) 33IU/L Alkaline Phosphatase 331IU/L Total Protein 7.9g/dl Albumin 3.2g/dl Globulin 4.70g/dl Albumin/Globulin Ratio 0.68 Lipase 98U/L Current Medications Medications (Trade) Dose Ordered Sig/Joan Route PRN Reason Start Time Stop Time Status Last Admin Dose Admin IV Flush 10 ml 10 ml STK-MED ONCE .ROUTE 06/30/17 16:11 06/30/17 16:12 DC 06/30/17 16:46 Sodium Chloride (NS) 100 ml @ ud STK-MED ONCE .ROUTE 06/30/17 16:11 06/30/17 16:12 DC 06/30/17 16:47 Iodixanol (Visipaque Locm) 100 ml STK-MED ONCE .ROUTE 06/30/17 16:11 06/30/17 16:12 DC 06/30/17 16:47 Ondansetron HCl 4 mg 4 mg ONCE STAT IV 06/30/17 17:13 06/30/17 17:15 DC 06/30/17 17:19 Cefepime HCl (Maxipime 1gm/50 ml (Pmx)) 50 ml @ 100 mls/hr ONCE ONCE IVPB 06/30/17 17:30 06/30/17 17:59 DC 06/30/17 17:19 Ondansetron HCl (Zofran Inj) 4 mg BRIDGE ORDER PRN IV NAUSEA AND/OR VOMITING 06/30/17 19:00 07/01/17 18:59 07/01/17 05:15 Acetaminophen (Tylenol Tab) 650 mg ER BRIDGE PRN PO MILD PAIN/FEVER 06/30/17 19:00 07/01/17 18:59 EKG: Time: 14:42. Sinus rhythm with sinus arrhythmia. Right bundle branch block. Q-wave in lead V2. No acute ST segment invasion or depression. No ectopy. EP interpretation: Abnormal ECG. AMENDMENT: 06/30/2017 5:14:41 PM Anand Kc M.d Impression: 5. Gallbladder wall thickening with minimal pericholecystic edema. Consider ultrasound correlation as clinically warranted. PROCEDURE: CT of the abdomen and pelvis CLINICAL INDICATION: Abdominal pain TECHNIQUE: The study was performed utilizing a [employer] 64-slice multidetector CT scanner. Direct spiral axial sections were obtained through the abdomen and pelvis with intravenous contrast. After administration of 80 cc of Visipaque 320, postcontrast images were obtained. Coronal and sagittal reformatted images were performed. The CTDI vol is 7.28 mGy and the DLP is 407.39 mGy-cm. The images were reviewed on a PACS workstation. One or more of the following dose reduction techniques were used: Automated exposure control. Adjustment of the mA and/or kV according to patient size. Use of iterative reconstruction technique. COMPARISON: 11/05/2016 FINDINGS: CT abdomen: Patchy bibasilar air space disease is seen. The heart is enlarged. No pericardial effusion is seen. Aortic and coronary vascular calcifications are seen. A central venous catheter is seen in the right atrium and is incompletely visualized. The liver is normal in size and contour. No focal liver lesions or intrahepatic biliary dilatation is seen. The gallbladder wall appears to be thickened with minimal pericholecystic edema. No gallstone is seen. A small calcification in the spleen is once again seen. Small punctate calcifications in the pancreas are once again seen. The spleen, pancreas, and adrenal glands are otherwise unremarkable in appearance. The kidneys are normal in size and contour enhance normally. No evidence of hydronephrosis or nephrolithiasis is seen. Small bilateral renal cysts are once again seen. A gastrostomy tube is seen in the gastric lumen. The stomach is otherwise unremarkable. The large bowel is stool-filled. Right hemicolon diverticulosis is seen without evidence of diverticulitis. The small and remainder of the large bowel are otherwise unremarkable in course and caliber. No inflammatory changes in the periappendiceal region is seen. No enlarged lymph nodes or fluid collections are seen. The aorta is normal in caliber. Aortic calcifications are seen. CT pelvis: No pelvic mass, adenopathy, or focal fluid collection is seen. There is no free fluid. A Flores catheter is seen in the urinary bladder. Nondependent air in the urinary bladder is seen which may be from the bladder instrumentation. The pelvic organs are unremarkable. No osseous lesions are seen. Degenerative spondylosis of the lumbar spine is seen. IMPRESSION: 1. Patchy bibasilar air space disease which may represent infiltrates. Continued chest x-ray follow-up is suggested. 2. Otherwise, no acute pathology in the abdomen and pelvis. 3. Stool filled large bowel with diverticulosis in the right hemicolon. 4. Flores catheter and gastrostomy tube identified. RPTAT: HPNM Physician Nichole Date Time Electronically viewed and signed by Physician Nichole on 06/30/2017 17 :15 / PROCEDURE: XR Chest. CLINICAL INDICATION: Sepsis. TECHNIQUE: Single frontal view. COMPARISON: 05/28/2017. FINDINGS: There is a tunneled right internal jugular vein dialysis catheter with the tip in the upper right atrium in satisfactory position. The lungs are clear. The heart size is normal. There is calcification in the aorta consistent with atherosclerosis. There is no pleural effusion. There is no pneumothorax. IMPRESSION: 1. Dialysis catheter in satisfactory position. 2. Atherosclerosis. 3. Clear lungs. 4. No change from 05/28/2017. RPTAT: QQ .Allen Mackey MD, Date Time Electronically viewed and signed by .Allen Mackey MD, on 06/30/2017 17:04 .R/ ] PROCEDURE: US Abdomen. CLINICAL INDICATION: Abdominal pain. TECHNIQUE: Multiple real-time images were acquired of the patient's right upper quadrant utilizing a high resolution transducer. The images were reviewed on a high-resolution PACS workstation. COMPARISON: None FINDINGS: The liver demonstrates normal echogenicity and size and no focal lesions are seen. The liver measures 13.2 cm in size. Multiple gallstones are seen. Suggestion of a polyp in the gallbladder lumen is also noted. There is no pericholecystic fluid. The gallbladder wall measures 7.5 mm in size. No intrahepatic biliary dilatation is seen. The common bile duct measures 3.1 mm in maximal dimension. The visualized portions of the pancreas are unremarkable. No free fluid is identified. The right kidney is of normal size, and demonstrate normal echogenicity and morphology. The right kidney measures 9.4 x 6.7 x 4.3 cm. A simple cyst is seen in the right kidney measuring 1.3 x 1.6 x 1.3 cm in size. There are is no dilatation of the right collecting system. There are no perinephric fluid collections. There are no areas of increased echogenicity to suggest nephrolithiasis. IMPRESSION: 1. Sonographic findings which in the correct clinical setting would be consistent with acute cholecystitis as described above. 2. Suggestion of a polyp in the gallbladder lumen. Consider a 6-12 month follow -up as clinically warranted. 3. Right renal cyst. RPTAT: HPNM Physician Nichole Date Time Electronically viewed and signed by Physician Nichole on 06/30/2017 19 :27 / Procedures/MDM DOCUMENTS REVIEWED: ED nurse, prior ED, prior records MEDICAL DECISION MAKIN-year-old male with history of end-stage renal disease on dialysis MWF, paroxysmal atrial fibrillation, hypertension, diabetes , CVA and anemia presents to the ED from [facility] for evaluation of worsening leukocytosis. Urinary tract infection and cystitis. Significant leukocytosis and anemia but no evidence of acute blood loss. Chronic renal failure on dialysis. Due to the patient's ongoing abdominal pain a CT the abdomen pelvis was performed to evaluate for an acute process including but not limited to abdominal aortic aneurysm, obstruction, diverticulitis, mass, cholelithiasis and reveals evidence of possible cholecystitis. Ultrasound of the right upper quadrant confirms cholelithiasis with evidence of cholecystitis. Antibiotics already administered. He will require surgical consultation. Admitted to [facility] for further evaluation and management. Counseled patient regarding diagnosis, diagnostic results and plan for admission. CALLS/CONSULTS: Time 17:45, Dr. Patel, Recommends patient to [facility]. PATIENT CARE TRANSITIONED: Time: 18:30 Dr. Patel. Departure Diagnosis: Primary Impression: Abdominal pain Abdominal location: unspecified location Qualified Code: R10.9 - Abdominal pain, unspecified abdominal location Additional Impressions: Acute cholecystitis Leukocytosis Leukocytosis type: unspecified Qualified Code: D72.829 - Leukocytosis, unspecified type End stage renal disease on dialysis UTI (urinary tract infection) Urinary tract infection type: acute cystitis Hematuria presence: without hematuria Qualified Code: N30.00 - Acute cystitis without hematuria Condition: Serious MAKAYLA MONTOYA MD Jun 30, 2017 18:58
[2017-06-30 19:00] VITALS: TEMP 98.7
[2017-06-30] MEDS ORDERED: ACETAMINOPHEN 325 MG TAB PO PRN (19:00)
[2017-06-30] MEDS ORDERED: ONDANSETRON 4 MG INJ IV PRN (19:00)
--- NOTE | 2017-06-30 19:28 | RADRPT ---
PROCEDURE: US Abdomen. CLINICAL INDICATION: Abdominal pain. TECHNIQUE: Multiple real-time images were acquired of the patient's right upper quadrant utilizing a high resolution transducer. The images were reviewed on a high-resolution PACS workstation. COMPARISON: None FINDINGS: The liver demonstrates normal echogenicity and size and no focal lesions are seen. The liver measure s 13.2 cm in size. Multiple gallstones are seen. Suggestion of a polyp in the gallbladder lumen is a lso noted. There is no pericholecystic fluid. The gallbladder wall measures 7.5 mm in size. No intr ahepatic biliary dilatation is seen. The common bile duct measures 3.1 mm in maximal dimension. Th e visualized portions of the pancreas are unremarkable. No free fluid is identified. The right kidney is of normal size, and demonstrate normal echogenicity and morphology. The right k idney measures 9.4 x 6.7 x 4.3 cm. A simple cyst is seen in the right kidney measuring 1.3 x 1.6 x 1 .3 cm in size. There are is no dilatation of the right collecting system. There are no perinephric fluid collections. There are no areas of increased echogenicity to suggest nephrolithiasis. IMPRESSION: 1. Sonographic findings which in the correct clinical setting would be consistent with acute cholec ystitis as described above. 2. Suggestion of a polyp in the gallbladder lumen. Consider a 6-12 month follow-up as clinically wa rranted. 3. Right renal cyst. RPTAT: HPNM Physician Nichole Date Time Electronically viewed and signed by Physician Nichole on 06/30/2017 19:27 /
[2017-06-30 20:55] VITALS: BP 140/66; PULSE 90; RESP 20; Ht 162.6 cm; Wt 48.1 kg
[2017-06-30] MEDS ORDERED: ACETAMINOPHEN 1000MG/100ML IV 100 ML IVPB PRN (22:00)
[2017-06-30] MEDS ORDERED: morphine 2 MG INJ IV PRN (22:00)
[2017-06-30] MEDS ORDERED: CYCLOBENZAPRINE 10 MG TAB PEG PRN (22:00)
[2017-06-30] MEDS: DEXTROSE 5%-0.45% NACL 1,000 ML IV SCH (22:33)
[2017-06-30] MEDS: PIPER-TAZO 2.25 GM (PMX) 50 ML IVPB SCH (23:46)
[2017-06-30] MEDS: ONDANSETRON 4 MG INJ IV PRN (23:53)
[2017-07-01] VITALS (10 sets, daily range): BP systolic 118–147; BP diastolic 62–71; PULSE 89–102; RESP 18–20
[2017-07-01] MEDS ORDERED: INSULIN ASPART [NOVOLOG] 3 ML PEN SC SCH
[2017-07-01] MEDS: Insulin NOVOLOG SS MILD Algorithm (NPO/TPN/ENTERAL FEEDS) SC SCH ×4 (00:33→18:37)
--- NOTE | 2017-07-01 01:18 | HP ---
DATE OF ADMISSION: 06/30/2017 CHIEF COMPLAINT AND HISTORY OF PRESENT ILLNESS: The patient is a 72-year-old gentleman with a histo ry of CVA, end-stage renal disease on hemodialysis, diabetes, diastolic heart failure, paroxysmal at rial fibrillation, hypertension, dyslipidemia, urinary retention, needing Flores catheter, dysphagia status post G-tube placement, who was recently admitted at [facility] due to urina ry tract infection and [id number]-[id number] kidney disease, and was started on hemodialysis. The patien t was recuperating at [facility], for the last few days he had a cough and chest conge stion and was thought to have upper respiratory infection; however, chest x-ray was unremarkable. T he patient was started on Levaquin as an outpatient and [facility] revealed WBC count of 21,000. Chest x-ray revealed no acute cardiopulmonary disease. The patient was sent to [facility] ER for evaluation. Patient was seen by Dr. Issac Gerard i n the ER, and initially was thought to have urinary tract infection and white count was 23.2. UA wa s positive for 3+ leukocyte esterase, more than 182 WBC; however, the patient had vague upper abdomi nal symptoms and therefore, CT of the abdomen and ultrasound of the abdomen were ordered. Patient w as noted to have gallstones and some pericholecystic fluid, and patient was diagnosed with possible acute cholecystitis. The patient also had bibasilar infiltrate on CT scan. The patient was also th ought to have a pneumonia. Therefore, patient will be admitted for further evaluation and managemen t. The patient did not have any vomiting today. The patient was seen by me in the [facility] yesterday and did report nausea also. No reported fever or chills today. No bleeding from any site. The patient is a poor historian. The patient is awake, alert and follows simple command s. Patient is hard of hearing, review of system was therefore rather limited. PAST MEDICAL HISTORY: As stated above. PAST SURGICAL HISTORY: Patient is status post G-tube placement and also dialysis catheter placement . The patient also has a history of hip surgery, history of severe GI bleed in the past. PHYSICAL EXAMINATION: GENERAL: The patient awake, responsive. VITAL SIGNS: Temperature 98.7, pulse 87, respirations 18, blood pressure 137/51, O2 saturation 100% on room air. HEENT: Atraumatic, normocephalic head. No eye discharge or redness. Nose and ears normal. NECK: No mass. CHEST: Revealed diminished air entry at bases with a few rales. CARDIOVASCULAR: S1, S2 normal. No murmur. ABDOMEN: Soft, nondistended. G-tube in place. Mild upper abdominal tenderness present. No guardi ng or rigidity. EXTREMITIES: No edema. Pedal pulses could not be felt. SKIN: Without acute rash. NEUROLOGIC: The patient is awake, alert, follows simple commands and has generalized weakness. LABORATORY DATA: WBC in the ER 23.2, hemoglobin 9.2, platelets 437. Sodium 133, potassium 3.4, BUN 111, creatinine 5, glucose 175. AST 34, ALT 33, alkaline phosphatase 331. Serum bilirubin normal. IMPRESSION: 1. Possible acute cholecystitis due to gallstones. 2. Possible pneumonia. 3. Hypertension. 4. Diabetes. 5. Chronic kidney disease stage V. 6. History of upper gastrointestinal bleed. 7. Paroxysmal atrial fibrillation. 8. Diastolic heart failure. 9. History of cerebrovascular accident. 10. Possible peripheral vascular disease. PLAN: The patient admitted on medical floor. Patient will be kept n.p.o. Patient will be given IV fluid cautiously. We will put him on sliding scale insulin. We will also start IV Zosyn, IV Nicki nix. No anticoagulant or antiplatelet agents due to history of severe GI bleed in the past. We gloria l notify Dr. Rock Cheema from nephrology standpoint. We will also obtain surgical consult. Meanwh ile, we will order a HIDA scan for further workup. Continue symptomatic treatment. Dictated By: KE BECK/INOCENCIO Conf#: [id number] DID#: [id number]
[2017-07-01] MEDS ORDERED: ACCU-CHEK XX SCH (02:00)
[2017-07-01] MEDS: PIPER-TAZO 2.25 GM (PMX) 50 ML IVPB SCH ×3 (05:15→21:53)
[2017-07-01] MEDS ORDERED: PANTOPRAZOLE 40 MG INJ IV SCH (06:00)
[2017-07-01 06:07] LABS: BASOPHIL # 0.1 10^3/ul (0.0-0.1); BASOPHILS % 0.3 % (0.0-2.0); EOSINOPHILS # 0.2 10^3/ul (0.0-0.5); EOSINOPHILS % 0.9 % (0.0-7.0); HEMATOCRIT 30.8 % (42.0-52.0); HEMOGLOBIN 10.3 g/dl (14.0-18.0); LYMPHOCYTES # 1.6 10^3/ul (0.8-2.9); LYMPHOCYTES % 8.1 % (15.0-51.0); MEAN CORPUSCULAR HEMOGLOBIN 30.2 pg (29.0-33.0); MEAN CORPUSCULAR HGB CONC 33.4 g/dl (32.0-37.0); MEAN CORPUSCULAR VOLUME 90.3 fl (82.0-101.0); MEAN PLATELET VOLUME 11.6 fl (7.4-10.4); MONOCYTE # 0.9 10^3/ul (0.3-0.9); MONOCYTES % 4.4 % (0.0-11.0); NEUTROPHIL # 17.1 10^3/ul (1.6-7.5); NEUTROPHILS % 85.5 % (39.0-77.0); PLATELET COUNT 467 10^3/UL (140-415); RED BLOOD COUNT 3.41 10^6/ul (4.70-6.10); RED CELL DISTRIBUTION WIDTH 13.7 % (11.5-14.5)
[2017-07-01 06:41] LABS: ALBUMIN/GLOBULIN RATIO 0.65; CALCIUM 8.7 mg/dl (8.4-10.2); CREATININE 5.61 mg/dl (0.61-1.24); POTASSIUM 3.7 mmol/L (3.5-5.1); TOTAL PROTEIN 7.6 g/dl (6.1-8.1)
--- NOTE | 2017-07-01 11:39 | PN ---
Date/Time of Note Date/Time of Note DATE: 07/01/17 TIME: 11:32 Assessment/Plan VTE Prophylaxis VTE Prophylaxis Intervention: other Lines/Catheters IV Catheter Type (from Nrsg): midline Urinary Cath still in place: Yes Reason Cath still needed: urinary retention Assessment/Plan Assessment/Plan 1. Possible acute cholecystitis due to gallstones. - surgery consult- Dr Bojorquez notified - HIDA scan- fu - Continue symptomatic treatment. - IV Zosyn 2. Possible pneumonia. 3. Hypertension. 4. Diabetes. - Glycemic control 5. Chronic kidney disease stage V. - per nephro 6. History of upper gastrointestinal bleed. 7. Paroxysmal atrial fibrillation. 8. Diastolic heart failure. 9. History of cerebrovascular accident. 10. Possible peripheral vascular disease. 11, GI prophylaxis - cont. IV Protonix. 12. No anticoagulant or antiplatelet agents due to history of severe GI bleed in the past. Tono Patel/staff Subjective 24 Hr Interval Summary Free Text/Dictation nad, resting, WBC elevated, slightly febrile-ID follows. dw staff Exam/Review of Systems Vital Signs Vitals Vital Signs Date Time Temp Pulse Resp B/P Pulse Ox O2 Delivery O2 Flow Rate FiO2 07/01/17 09:07 99.3 07/01/17 07:44 98 20 129/62 98 06/30/17 20:55 Room Air Intake and Output 06/30/17 06/30/17 07/01/17 15:00 23:00 07:00 Intake Total 450 ml Output Total 200 ml Balance 250 ml Exam Constitutional: alert Respiratory: clear to auscultation, diminished breath sounds Cardiovascular: nl pulses, other (s1s2) Gastrointestinal: other (gt intact), soft Musculoskeletal: nl extremities to inspection Extremities: normal pulses Neurological: confused Results Result Diagram: 07/01/17 0506 07/01/17 0506 Results 24 hrs Laboratory Tests Test 06/30/17 15:40 06/30/17 15:45 06/30/17 21:15 07/01/17 00:00 White Blood Count 23.2 #H Red Blood Count 3.09 L Hemoglobin 9.3 L Hematocrit 28.3 L Mean Corpuscular Volume 91.6 Mean Corpuscular Hemoglobin 30.1 Mean Corpuscular Hemoglobin Concent 32.9 Red Cell Distribution Width 14.0 # Platelet Count 437 #H Mean Platelet Volume 11.4 H Neutrophils % 85.2 H Lymphocytes % 7.1 L Monocytes % 5.6 Eosinophils % 0.9 Basophils % 0.3 Nucleated Red Blood Cells % 0.0 Neutrophils # 19.8 H Lymphocytes # 1.7 Monocytes # 1.3 H Eosinophils # 0.2 Basophils # 0.1 Nucleated Red Blood Cells # 0.0 Prothrombin Time 13.5 Prothrombin Time Ratio 1.1 INR International Normalized Ratio 1.03 Activated Partial Thromboplast Time 42.2 H Urine Color YELLOW Urine Clarity CLOUDY A Urine pH 5.0 Urine Specific [place] 1.014 Urine Ketones NEGATIVE Urine Nitrite NEGATIVE Urine Bilirubin NEGATIVE Urine Urobilinogen NEGATIVE Urine Leukocyte Esterase 3+ H Urine Microscopic RBC 4 Urine Microscopic WBC > 182 H Urine Bacteria MODERATE Urine Mucus FEW A Urine Hemoglobin NEGATIVE Urine Glucose NEGATIVE Urine Total Protein 3+ H Sodium Level 133 L Potassium Level 3.4 L Chloride Level 90 L Carbon Dioxide Level 29 Anion Gap 17 H Blood Urea Nitrogen 119 H Creatinine 5.01 H Glucose Level 175 Calcium Level 8.8 Total Bilirubin 0.0 L Direct Bilirubin 0.00 Indirect Bilirubin 0.0 Aspartate Amino Transf (AST/SGOT) 37 Alanine Aminotransferase (ALT/SGPT) 33 Alkaline Phosphatase 331 H Total Protein 7.9 Albumin 3.2 L Globulin 4.70 H Albumin/Globulin Ratio 0.68 Lipase 98 Bedside Glucose 213 219 Test 07/01/17 05:06 07/01/17 05:23 White Blood Count 20.0 H Red Blood Count 3.41 L Hemoglobin 10.3 L Hematocrit 30.8 L Mean Corpuscular Volume 90.3 Mean Corpuscular Hemoglobin 30.2 Mean Corpuscular Hemoglobin Concent 33.4 Red Cell Distribution Width 13.7 Platelet Count 467 H Mean Platelet Volume 11.6 H Neutrophils % 85.5 H Lymphocytes % 8.1 L Monocytes % 4.4 Eosinophils % 0.9 Basophils % 0.3 Nucleated Red Blood Cells % 0.0 Neutrophils # 17.1 H Lymphocytes # 1.6 Monocytes # 0.9 Eosinophils # 0.2 Basophils # 0.1 Nucleated Red Blood Cells # 0.0 Sodium Level 134 L Potassium Level 3.7 Chloride Level 94 L Carbon Dioxide Level 26 Anion Gap 18 H Blood Urea Nitrogen 118 H Creatinine 5.61 H Glucose Level 161 Calcium Level 8.7 Total Bilirubin 0.0 L Direct Bilirubin 0.00 Indirect Bilirubin 0.0 Aspartate Amino Transf (AST/SGOT) 24 Alanine Aminotransferase (ALT/SGPT) 24 Alkaline Phosphatase 269 H Total Protein 7.6 Albumin 3.0 L Globulin 4.60 H Albumin/Globulin Ratio 0.65 Amylase Level 87 Lipase 77 Bedside Glucose 205 Medications Medications Current Medications Dextrose/Sodium Chloride (D5-1/2ns) 1,000 ml @ 50 mls/hr Q20H IV Last administered on 06/30/17 22:33; Admin Dose 50 MLS/HR; Start 06/30/17 at 22:00 Miscellaneous Information Z[facility] PHARMACY TO DOSE ONCE XX ; Start 06/30/17 at 22: 00 Acetaminophen (Ofirmev 1000mg/ 100ml Iv) 100 ml @ 400 mls/hr Q6H PRN IVPB PAIN /FEVER Last administered on 06/30/17 23:53; Admin Dose 400 MLS/HR; Start at 22:00 Morphine Sulfate (morphine) 2 mg Q4H PRN IV PAIN; Start 06/30/17 at 22:00 Ondansetron HCl (Zofran Inj) 4 mg Q6H PRN IV NAUSEA AND/OR VOMITING Last administered on 06/30/17 23:53; Admin Dose 4 MG; Start 06/30/17 at 22:00 Cyclobenzaprine HCl (Flexeril) 5 mg TID PRN PEG HICCUPS Last administered on 06:00; Admin Dose 5 MG; Start 06/30/17 at 22:00 Pantoprazole (Protonix Iv) 40 mg DAILY@06 IV Last administered on 07/01/17 05: 15; Admin Dose 40 MG; Start 07/01/17 at 06:00 Hydralazine HCl 10 mg 10 mg Q6 PRN IV ELEVATED SYSTOLIC BP; Start 06/30/17 at 22:00 Piperacillin Sod/ Tazobactam Sod (Zosyn 2.25gm/ 50ml (Pmx)) 50 ml @ 100 mls/hr Q8 IVPB Last administered on 07/01/17 05:15; Admin Dose 100 MLS/HR; Start 06/30/17 at 23:00 Insulin Aspart (Novolog Insulin Pen) (Adult SC Insulin - Mild Algorithm)... Q6 SC Last administered on 07/01/17 05:25; Admin Dose 2 UNIT; Start 07/01/17 at 00:00 MARCY WEINER Jul 01, 2017 11:39
--- NOTE | 2017-07-01 11:56 | CONS ---
Date/Time of Note Date/Time of Note DATE: 07/01/17 TIME: 11:41 Assessment/Plan Assessment/Plan Chief Complaint/Hosp Course 1. Cholelithiasis with ?cholecystitis: pending HIDA -possible lap avery-will discuss with family: pending HIDA -ivf -abx -pain management -npo 2. UTI: -abx per sensitivity -frequent bladder emptying/cath care 3. Leukocytosis: likely 2/2 #1,2 -as above -supportive 4. Anemia: no acute bleed noted -monitor -transfuse as needed 5. ESRD on HD -HD per renal -avoid/limit nephrotoxic meds -judicious fluids -renally dose meds 6. Electrolyte imbalance: -optimize lytes 7. Elevated LFT: -as above Thank you. Patient seen and examined in collaboration with Dr. Abraham Bojorquez. Problems: Consultation Date/Type/Reason Admit Date/Time Jun 30, 2017 at 19:01 Date of Consultation: Jul 01, 2017 Type of Consultation: Surgical Reason for Consultation Cholecystitis Referring Provider: KE JAVED MD Hx of Present Illness Daquan Duran is a 72-year-old gentleman with multiple comorbidities, residing [facility], who for the last few days he had a cough and chest congestion and was thought to have upper respiratory infection; however, chest x-ray was unremarkable. He also had WBC count of 21,000. He was sent to [facility] ER for evaluation. He was found to have a uti.With further evaluation he also had vague upper abdominal symptoms. CT of the abdomen and ultrasound of the abdomen were ordered. Patient was noted to have gallstones and some pericholecystic fluid, and patient was diagnosed with possible acute cholecystitis. He was noted to have mild temps as well. No reports of vomiting, diarrhea, hematochezia or melena. General surgery was asked to evaluate. Subjective hx not possible: pt non-verbal Constitutional: No febrile Eyes: No visual change ENT: No congestion Respiratory: No cough, No shortness of breath Gastrointestinal: No diarrhea, No vomiting Genitourinary: No hematuria Skin: No bruising, No erythema Psychological: No confusion Past Medical History CVA end-stage renal disease on hemodialysis diabetes, diastolic heart failure paroxysmal atrial fibrillation hypertension dyslipidemia urinary retention Flores catheter dysphagia status post G-tube placement Past Surgical History peg Family History Significant Family History: no pertinent family hx Social History Alcohol Use: none Smoking Status: Never smoker Exam/Review of Systems Vital Signs Vitals Vital Signs Date Time Temp Pulse Resp B/P Pulse Ox O2 Delivery O2 Flow Rate FiO2 07/01/17 09:07 99.3 07/01/17 07:44 98 20 129/62 98 06/30/17 20:55 Room Air Intake and Output 06/30/17 06/30/17 07/01/17 15:00 23:00 07:00 Intake Total 450 ml Output Total 200 ml Balance 250 ml Exam Constitutional: alert, No oriented Head: atraumatic, normocephalic Eyes: nl lids, nl sclera ENMT: mucosa pink and moist, nl nasal mucosa & septum Neck: non-tender, supple Respiratory: normal air movement, No labored breathing Cardiovascular: regular rate and rhythm Gastrointestinal: non-tender, other (peg), soft, No tender Genitourinary - Male: nl penis, nl scrotum Musculoskeletal: nl extremities to inspection Extremities: normal pulses Neurological: No nl mental status, No nl speech Skin: nl turgor Results Result Diagram: 07/01/17 0506 07/01/17 0506 Results 24 hrs Laboratory Tests Test 06/30/17 15:40 06/30/17 15:45 06/30/17 21:15 07/01/17 00:00 White Blood Count 23.2 #H Red Blood Count 3.09 L Hemoglobin 9.3 L Hematocrit 28.3 L Mean Corpuscular Volume 91.6 Mean Corpuscular Hemoglobin 30.1 Mean Corpuscular Hemoglobin Concent 32.9 Red Cell Distribution Width 14.0 # Platelet Count 437 #H Mean Platelet Volume 11.4 H Neutrophils % 85.2 H Lymphocytes % 7.1 L Monocytes % 5.6 Eosinophils % 0.9 Basophils % 0.3 Nucleated Red Blood Cells % 0.0 Neutrophils # 19.8 H Lymphocytes # 1.7 Monocytes # 1.3 H Eosinophils # 0.2 Basophils # 0.1 Nucleated Red Blood Cells # 0.0 Prothrombin Time 13.5 Prothrombin Time Ratio 1.1 INR International Normalized Ratio 1.03 Activated Partial Thromboplast Time 42.2 H Urine Color YELLOW Urine Clarity CLOUDY A Urine pH 5.0 Urine Specific [place] 1.014 Urine Ketones NEGATIVE Urine Nitrite NEGATIVE Urine Bilirubin NEGATIVE Urine Urobilinogen NEGATIVE Urine Leukocyte Esterase 3+ H Urine Microscopic RBC 4 Urine Microscopic WBC > 182 H Urine Bacteria MODERATE Urine Mucus FEW A Urine Hemoglobin NEGATIVE Urine Glucose NEGATIVE Urine Total Protein 3+ H Sodium Level 133 L Potassium Level 3.4 L Chloride Level 90 L Carbon Dioxide Level 29 Anion Gap 17 H Blood Urea Nitrogen 119 H Creatinine 5.01 H Glucose Level 175 Calcium Level 8.8 Total Bilirubin 0.0 L Direct Bilirubin 0.00 Indirect Bilirubin 0.0 Aspartate Amino Transf (AST/SGOT) 37 Alanine Aminotransferase (ALT/SGPT) 33 Alkaline Phosphatase 331 H Total Protein 7.9 Albumin 3.2 L Globulin 4.70 H Albumin/Globulin Ratio 0.68 Lipase 98 Bedside Glucose 213 219 Test 07/01/17 05:06 07/01/17 05:23 White Blood Count 20.0 H Red Blood Count 3.41 L Hemoglobin 10.3 L Hematocrit 30.8 L Mean Corpuscular Volume 90.3 Mean Corpuscular Hemoglobin 30.2 Mean Corpuscular Hemoglobin Concent 33.4 Red Cell Distribution Width 13.7 Platelet Count 467 H Mean Platelet Volume 11.6 H Neutrophils % 85.5 H Lymphocytes % 8.1 L Monocytes % 4.4 Eosinophils % 0.9 Basophils % 0.3 Nucleated Red Blood Cells % 0.0 Neutrophils # 17.1 H Lymphocytes # 1.6 Monocytes # 0.9 Eosinophils # 0.2 Basophils # 0.1 Nucleated Red Blood Cells # 0.0 Sodium Level 134 L Potassium Level 3.7 Chloride Level 94 L Carbon Dioxide Level 26 Anion Gap 18 H Blood Urea Nitrogen 118 H Creatinine 5.61 H Glucose Level 161 Calcium Level 8.7 Total Bilirubin 0.0 L Direct Bilirubin 0.00 Indirect Bilirubin 0.0 Aspartate Amino Transf (AST/SGOT) 24 Alanine Aminotransferase (ALT/SGPT) 24 Alkaline Phosphatase 269 H Total Protein 7.6 Albumin 3.0 L Globulin 4.60 H Albumin/Globulin Ratio 0.65 Amylase Level 87 Lipase 77 Bedside Glucose 205 Medications Medications Current Medications Dextrose/Sodium Chloride (D5-1/2ns) 1,000 ml @ 50 mls/hr Q20H IV Last administered on 06/30/17t 22:33; Admin Dose 50 MLS/HR; Start 06/30/17 at 22:00 Miscellaneous Information [facility] TO DOSE ONCE XX ; Start 06/30/17 at 22: 00 Acetaminophen (Ofirmev 1000mg/ 100ml Iv) 100 ml @ 400 mls/hr Q6H PRN IVPB PAIN /FEVER Last administered on 06/30/17 23:53; Admin Dose 400 MLS/HR; Start at 22:00 Morphine Sulfate (morphine) 2 mg Q4H PRN IV PAIN; Start 06/30/17 at 22:00 Ondansetron HCl (Zofran Inj) 4 mg Q6H PRN IV NAUSEA AND/OR VOMITING Last administered on 06/30/17 23:53; Admin Dose 4 MG; Start 06/30/17 at 22:00 Cyclobenzaprine HCl (Flexeril) 5 mg TID PRN PEG HICCUPS Last administered on 06:00; Admin Dose 5 MG; Start 06/30/17 at 22:00 Pantoprazole (Protonix Iv) 40 mg DAILY@06 IV Last administered on 07/01/17 05: 15; Admin Dose 40 MG; Start 07/01/17 at 06:00 Hydralazine HCl 10 mg 10 mg Q6 PRN IV ELEVATED SYSTOLIC BP; Start 06/30/17 at 22:00 Piperacillin Sod/ Tazobactam Sod (Zosyn 2.25gm/ 50ml (Pmx)) 50 ml @ 100 mls/hr Q8 IVPB Last administered on 07/01/17 05:15; Admin Dose 100 MLS/HR; Start 06/30/17 at 23:00 Insulin Aspart (Novolog Insulin Pen) (Adult SC Insulin - Mild Algorithm)... Q6 SC Last administered on 07/01/17 05:25; Admin Dose 2 UNIT; Start 07/01/17 at 00:00 SUSSY PAL NP Jul 01, 2017 11:51
--- NOTE | 2017-07-01 16:18 | RADRPT ---
PROCEDURE: HIDA scan CLINICAL INDICATION: 72 -year-old patient with abdominal pain. TECHNIQUE: Following the intravenous injection of approximately 7.0 mCi of Tc-99m Mebrofenin, mult iple anterior dynamic images of the abdomen along with numerous planar spot images of the abdomen we re obtained up to 90 minutes post injection. COMPARISON: No prior HIDA scans. FINDINGS: The liver is promptly visualized, demonstrates homogeneous distribution of radionuclide. There is a visualization of the common bile duct, gallbladder and gastrointestinal activity within n ormal time. IMPRESSION: No evidence to suggest the presence of common bile or cystic ducts obstruction. RPTAT: HH .Luanne Cope MD, Date Time Electronically viewed and signed by .Luanne Cope MD, on 07/01/2017 16:18 .L/
[2017-07-01] MEDS: DEXTROSE 5%-0.45% NACL 1,000 ML IV SCH (18:00)
--- NOTE | 2017-07-01 18:19 | CONS ---
Date/Time of Note Date/Time of Note DATE: 07/01/17 TIME: 18:18 Consultation Date/Type/Reason Admit Date/Time Jun 30, 2017 at 19:01 Initial Consult Date 07/01/17 Type of Consultation: renal [id number] Referring Provider: KE JAVED MD 24 HR Interval Summary Subjective hx not possible: pt non-verbal Exam/Review of Systems Vital Signs Vitals Vital Signs Date Time Temp Pulse Resp B/P Pulse Ox O2 Delivery O2 Flow Rate FiO2 07/01/17 13:45 92 20 147/70 97 Room Air 07/01/17 13:30 98.0 Intake and Output 06/30/17 06/30/17 07/01/17 15:00 23:00 07:00 Intake Total 450 ml Output Total 200 ml Balance 250 ml Results Result Diagram: 07/01/17 0506 07/01/17 0506 Results 24 hrs Laboratory Tests Test 06/30/17 21:15 07/01/17 00:00 07/01/17 05:06 07/01/17 05:23 Bedside Glucose 213 219 205 White Blood Count 20.0 H Red Blood Count 3.41 L Hemoglobin 10.3 L Hematocrit 30.8 L Mean Corpuscular Volume 90.3 Mean Corpuscular Hemoglobin 30.2 Mean Corpuscular Hemoglobin Concent 33.4 Red Cell Distribution Width 13.7 Platelet Count 467 H Mean Platelet Volume 11.6 H Neutrophils % 85.5 H Lymphocytes % 8.1 L Monocytes % 4.4 Eosinophils % 0.9 Basophils % 0.3 Nucleated Red Blood Cells % 0.0 Neutrophils # 17.1 H Lymphocytes # 1.6 Monocytes # 0.9 Eosinophils # 0.2 Basophils # 0.1 Nucleated Red Blood Cells # 0.0 Sodium Level 134 L Potassium Level 3.7 Chloride Level 94 L Carbon Dioxide Level 26 Anion Gap 18 H Blood Urea Nitrogen 118 H Creatinine 5.61 H Glucose Level 161 Calcium Level 8.7 Total Bilirubin 0.0 L Direct Bilirubin 0.00 Indirect Bilirubin 0.0 Aspartate Amino Transf (AST/SGOT) 24 Alanine Aminotransferase (ALT/SGPT) 24 Alkaline Phosphatase 269 H Total Protein 7.6 Albumin 3.0 L Globulin 4.60 H Albumin/Globulin Ratio 0.65 Amylase Level 87 Lipase 77 Test 07/01/17 13:38 Bedside Glucose 216 Medications Medications Current Medications Dextrose/Sodium Chloride (D5-1/2ns) 1,000 ml @ 50 mls/hr Q20H IV Last administered on 06/30/17 22:33; Admin Dose 50 MLS/HR; Start 06/30/17 at 22:00 Miscellaneous Information ZOSYN PHARMACY TO DOSE ONCE XX ; Start 06/30/17 at 22: 00 Acetaminophen (Ofirmev 1000mg/ 100ml Iv) 100 ml @ 400 mls/hr Q6H PRN IVPB PAIN /FEVER Last administered on 06/30/17 23:53; Admin Dose 400 MLS/HR; Start at 22:00 Morphine Sulfate (morphine) 2 mg Q4H PRN IV PAIN; Start 06/30/17 at 22:00 Ondansetron HCl (Zofran Inj) 4 mg Q6H PRN IV NAUSEA AND/OR VOMITING Last administered on 06/30/17 23:53; Admin Dose 4 MG; Start 06/30/17 at 22:00 Cyclobenzaprine HCl (Flexeril) 5 mg TID PRN PEG HICCUPS Last administered on 06:00; Admin Dose 5 MG; Start 06/30/17 at 22:00 Hydralazine HCl 10 mg 10 mg Q6 PRN IV ELEVATED SYSTOLIC BP; Start 06/30/17 at 22:00 Piperacillin Sod/ Tazobactam Sod (Zosyn 2.25gm/ 50ml (Pmx)) 50 ml @ 100 mls/hr Q8 IVPB Last administered on 07/01/17 16:44; Admin Dose 100 MLS/HR; Start 06/30/17 at 23:00 Insulin Aspart (Novolog Insulin Pen) (Adult SC Insulin - Mild Algorithm)... Q6 SC Last administered on 07/01/17 13:41; Admin Dose 2 UNIT; Start 07/01/17 at 00:00 Famotidine (Pepcid Iv) 10 mg DAILY IV ; Start 07/02/17 at 09:00 ABBY RAMOS MD Jul 01, 2017 18:19
--- NOTE | 2017-07-01 18:25 | CONS ---
Date/Time of Note Date/Time of Note DATE: 07/01/17 TIME: 18:23 Assessment/Plan Assessment/Plan Chief Complaint/Hosp Course ESRD SEPSIS CHOLECYSTITIS PEG ANEMIA PLAN ANTIBIOTIC HD Problems: Consultation Date/Type/Reason Admit Date/Time Jun 30, 2017 at 19:01 Initial Consult Date 07/01/17 Type of Consultation: renal [id number] Referring Provider: KE JAVED MD 24 HR Interval Summary Constitutional: other Exam/Review of Systems Vital Signs Vitals Vital Signs Date Time Temp Pulse Resp B/P Pulse Ox O2 Delivery O2 Flow Rate FiO2 07/01/17 13:45 92 20 147/70 97 Room Air 07/01/17 13:30 98.0 Intake and Output 06/30/17 06/30/17 07/01/17 15:00 23:00 07:00 Intake Total 450 ml Output Total 200 ml Balance 250 ml Exam Neck: supple Cardiovascular: regular rate and rhythm Gastrointestinal: bowel sounds (+), non-tender, soft Musculoskeletal: muscle weakness Extremities: edema (+) Neurological: confused Results Result Diagram: 07/01/17 0506 07/01/17 0506 Results 24 hrs Laboratory Tests Test 06/30/17 21:15 07/01/17 00:00 07/01/17 05:06 07/01/17 05:23 Bedside Glucose 213 219 205 White Blood Count 20.0 H Red Blood Count 3.41 L Hemoglobin 10.3 L Hematocrit 30.8 L Mean Corpuscular Volume 90.3 Mean Corpuscular Hemoglobin 30.2 Mean Corpuscular Hemoglobin Concent 33.4 Red Cell Distribution Width 13.7 Platelet Count 467 H Mean Platelet Volume 11.6 H Neutrophils % 85.5 H Lymphocytes % 8.1 L Monocytes % 4.4 Eosinophils % 0.9 Basophils % 0.3 Nucleated Red Blood Cells % 0.0 Neutrophils # 17.1 H Lymphocytes # 1.6 Monocytes # 0.9 Eosinophils # 0.2 Basophils # 0.1 Nucleated Red Blood Cells # 0.0 Sodium Level 134 L Potassium Level 3.7 Chloride Level 94 L Carbon Dioxide Level 26 Anion Gap 18 H Blood Urea Nitrogen 118 H Creatinine 5.61 H Glucose Level 161 Calcium Level 8.7 Total Bilirubin 0.0 L Direct Bilirubin 0.00 Indirect Bilirubin 0.0 Aspartate Amino Transf (AST/SGOT) 24 Alanine Aminotransferase (ALT/SGPT) 24 Alkaline Phosphatase 269 H Total Protein 7.6 Albumin 3.0 L Globulin 4.60 H Albumin/Globulin Ratio 0.65 Amylase Level 87 Lipase 77 Test 07/01/17 13:38 Bedside Glucose 216 Medications Medications Current Medications Dextrose/Sodium Chloride (D5-1/2ns) 1,000 ml @ 50 mls/hr Q20H IV Last administered on 06/30/17 22:33; Admin Dose 50 MLS/HR; Start 06/30/17 at 22:00 Miscellaneous Information [facility] PHARMACY TO DOSE ONCE XX ; Start 06/30/17 at 22: 00 Acetaminophen (Ofirmev 1000mg/ 100ml Iv) 100 ml @ 400 mls/hr Q6H PRN IVPB PAIN /FEVER Last administered on 06/30/17 23:53; Admin Dose 400 MLS/HR; Start at 22:00 Morphine Sulfate (morphine) 2 mg Q4H PRN IV PAIN; Start 06/30/17 at 22:00 Ondansetron HCl (Zofran Inj) 4 mg Q6H PRN IV NAUSEA AND/OR VOMITING Last administered on 06/30/17 23:53; Admin Dose 4 MG; Start 06/30/17 at 22:00 Cyclobenzaprine HCl (Flexeril) 5 mg TID PRN PEG HICCUPS Last administered on 06:00; Admin Dose 5 MG; Start 06/30/17 at 22:00 Hydralazine HCl 10 mg 10 mg Q6 PRN IV ELEVATED SYSTOLIC BP; Start 06/30/17 at 22:00 Piperacillin Sod/ Tazobactam Sod (Zosyn 2.25gm/ 50ml (Pmx)) 50 ml @ 100 mls/hr Q8 IVPB Last administered on 07/01/17 16:44; Admin Dose 100 MLS/HR; Start 06/30/17 at 23:00 Insulin Aspart (Novolog Insulin Pen) (Adult SC Insulin - Mild Algorithm)... Q6 SC Last administered on 07/01/17 13:41; Admin Dose 2 UNIT; Start 07/01/17 at 00:00 Famotidine (Pepcid Iv) 10 mg DAILY IV ; Start 07/02/17 at 09:00 ABBY RAMOS MD Jul 01, 2017 18:25
--- NOTE | 2017-07-01 19:01 | CONS ---
DATE OF ADMISSION: 06/30/2017 DATE OF CONSULTATION: TYPE OF CONSULTATION: Nephrology. Thank you, Dr. Ke Patel, for kindly asking me to see this patient in nephrology consultation . The patient is well known to us with a history of ESRD, hypertension. Recently discharged from [facility] with diagnosis of protein calorie malnutrition, UTI, history of CVA, diabetes mellitus, diastolic congestive heart failure, paroxysmal atrial fibrillation, hypertension, dyslipidemia, UTI , G-tube placement. ALLERGY HISTORY: NEGATIVE. FAMILY HISTORY: Noncontributory at this point. SOCIAL HISTORY: Cannot be obtained. MEDICATION HISTORY: The patient is currently on: 1. Flexeril. 2. Pepcid. 3. Hydralazine. 4. Insulin. 5. Morphine. 6. Zofran at home. 7. Bisacodyl. 8. Clonidine. 9. Cranberry extract. 10. Diphenhydramine. REVIEW OF SYSTEMS: The review of systems cannot be obtained. PHYSICAL EXAMINATION: GENERAL: The patient is awake, alert, at times lethargic and weak. VITAL SIGNS: Pulse 92, blood pressure 147/70. HEENT: Head is atraumatic, normocephalic. Pupils equal, reactive. NECK: Supple. LUNGS: Clear. CARDIOVASCULAR: S1, S2 normal. ABDOMEN: Soft, nontender. Bowel sounds positive. No palpable mass. EXTREMITIES: No cyanosis, clubbing. Edema positive. CENTRAL NERVOUS SYSTEM: The patient is awake, alert. Moving both upper and lower extremities. LABORATORY DATA: WBC 23.2, hematocrit 28.3, platelet count of 437. Sodium 131, potassium 3.7, BUN 118, creatinine 5.61. Gallbladder ultrasound shows acute cholecystitis, of polyp in the gallbladder lumen. Chest x- ray negative. CT abdomen: Patchy bibasilar airspace disease, stool filled large bowel. HIDA scan is reported as negative. IMPRESSION: 1. Sepsis. 2. Pneumonia. 3. The patient has cholecystitis. 4. Leukocytosis. 5. Anemia. 6. Chronic kidney disease 5. 7. G-tube placement. PLAN: Continue antibiotics, wound care. Hemodialysis has been ordered. Other recommendations per Dr. Patel. Dictated By: ABBY HERNANDEZ/INOCENCIO Conf#: [id number] DID#: [id number] CC: KE PATEL MD;*[facility]*
[2017-07-01] MEDS: BALSAM PERU/CASTOR OIL 60 GM TUBE TOP SCH (21:53)
[2017-07-02] MEDS: DEXTROSE 5%-0.45% NACL 1,000 ML IV SCH ×2 (00:09→20:43)
[2017-07-02] MEDS: CYCLOBENZAPRINE 10 MG TAB GTB PRN ×2 (00:14→20:43)
[2017-07-02] MEDS: Insulin NOVOLOG SS MILD Algorithm (NPO/TPN/ENTERAL FEEDS) SC SCH ×5 (00:47→23:57)
[2017-07-02 02:00] VITALS: BP 156/70; RESP 18
[2017-07-02 05:31] LABS: BASOPHIL # 0.1 10^3/ul (0.0-0.1); BASOPHILS % 0.7 % (0.0-2.0); EOSINOPHILS # 0.2 10^3/ul (0.0-0.5); EOSINOPHILS % 1.5 % (0.0-7.0); HEMATOCRIT 30.7 % (42.0-52.0); HEMOGLOBIN 10.1 g/dl (14.0-18.0); LYMPHOCYTES # 1.7 10^3/ul (0.8-2.9); MEAN CORPUSCULAR HEMOGLOBIN 29.6 pg (29.0-33.0); MEAN CORPUSCULAR HGB CONC 32.9 g/dl (32.0-37.0); MEAN PLATELET VOLUME 11.2 fl (7.4-10.4); MONOCYTE # 0.9 10^3/ul (0.3-0.9); MONOCYTES % 5.7 % (0.0-11.0); NEUTROPHILS % 80.2 % (39.0-77.0); PLATELET COUNT 511 10^3/UL (140-415); RED BLOOD COUNT 3.41 10^6/ul (4.70-6.10); RED CELL DISTRIBUTION WIDTH 13.6 % (11.5-14.5)
[2017-07-02 05:54] LABS: ALBUMIN 3.1 g/dl (3.3-4.9); ALBUMIN/GLOBULIN RATIO 0.67; BILIRUBIN,INDIRECT 0.1 mg/dl (0-1.1); BILIRUBIN,TOTAL 0.1 mg/dl (0.2-1.3); CALCIUM 8.4 mg/dl (8.4-10.2); CREATININE 3.29 mg/dl (0.61-1.24); POTASSIUM 3.5 mmol/L (3.5-5.1); TOTAL PROTEIN 7.7 g/dl (6.1-8.1)
[2017-07-02] MEDS: PIPER-TAZO 2.25 GM (PMX) 50 ML IVPB SCH ×2 (05:55→14:30)
[2017-07-02 08:00] VITALS: BP 149/65; RESP 18
[2017-07-02] MEDS: FAMOTIDINE 20 MG INJ IV SCH (09:30)
[2017-07-02] MEDS: BALSAM PERU/CASTOR OIL 60 GM TUBE TOP SCH ×2 (09:30→21:11)
--- NOTE | 2017-07-02 11:03 | CONS ---
Date/Time of Note Date/Time of Note DATE: 07/02/17 TIME: 11:02 Assessment/Plan Assessment/Plan Chief Complaint/Hosp Course 1. Sepsis, better. 2. Pneumonia. 3. The patient has cholecystitis. 4. G tube status 5. Anemia. 6. Chronic kidney disease 5. Problems: Additional Assessment/Plan 1.Continue HD 2. continue current regime Consultation Date/Type/Reason Admit Date/Time Jun 30, 2017 at 19:01 Initial Consult Date 07/01/17 Type of Consultation: renal Reason for Consultation Dr Cheema Referring Provider: KE JAVED MD 24 HR Interval Summary Subjective hx not possible: pt non-verbal Exam/Review of Systems Vital Signs Vitals Vital Signs Date Time Temp Pulse Resp B/P Pulse Ox O2 Delivery O2 Flow Rate FiO2 07/02/17 08:00 98.4 90 18 149/65 97 07/01/17 13:45 Room Air Intake and Output 07/01/17 07/01/17 07/02/17 14:59 22:59 06:59 Intake Total 1000 ml 800 ml Output Total 1620 ml 50 ml Balance -620 ml 750 ml Exam Constitutional: frail, other (confused) Head: atraumatic, normocephalic Eyes: nl conjunctiva ENMT: nl external ears & nose Neck: supple Respiratory: diminished breath sounds Cardiovascular: regular rate and rhythm Gastrointestinal: other (g tube), soft Results Result Diagram: 07/02/17 0458 07/02/17 0458 Results 24 hrs Laboratory Tests Test 07/01/17 13:38 07/01/17 18:33 07/02/17 00:34 07/02/17 04:58 Bedside Glucose 216 182 156 White Blood Count 15.0 #H Red Blood Count 3.41 L Hemoglobin 10.1 L Hematocrit 30.7 L Mean Corpuscular Volume 90.0 Mean Corpuscular Hemoglobin 29.6 Mean Corpuscular Hemoglobin Concent 32.9 Red Cell Distribution Width 13.6 Platelet Count 511 H Mean Platelet Volume 11.2 H Neutrophils % 80.2 H Lymphocytes % 11.0 L Monocytes % 5.7 Eosinophils % 1.5 Basophils % 0.7 Nucleated Red Blood Cells % 0.0 Neutrophils # 12.0 H Lymphocytes # 1.7 Monocytes # 0.9 Eosinophils # 0.2 Basophils # 0.1 Nucleated Red Blood Cells # 0.0 Sodium Level 143 Potassium Level 3.5 Chloride Level 102 Carbon Dioxide Level 28 Anion Gap 17 H Blood Urea Nitrogen 46 #H Creatinine 3.29 #H Glucose Level 151 Calcium Level 8.4 Total Bilirubin 0.1 L Direct Bilirubin 0.00 Indirect Bilirubin 0.1 Aspartate Amino Transf (AST/SGOT) 23 Alanine Aminotransferase (ALT/SGPT) 21 Alkaline Phosphatase 227 H Total Protein 7.7 Albumin 3.1 L Globulin 4.60 H Albumin/Globulin Ratio 0.67 Test 07/02/17 05:57 07/02/17 07:48 Bedside Glucose 140 Lab Scanned Report REFERENCE LAB Medications Medications Current Medications Dextrose/Sodium Chloride (D5-1/2ns) 1,000 ml @ 50 mls/hr Q20H IV Last administered on 07/02/17 00:09; Admin Dose 50 MLS/HR; Start 06/30/17 at 22:00 Miscellaneous Information [facility] TO DOSE ONCE XX ; Start 06/30/17 at 22: 00 Acetaminophen (Ofirmev 1000mg/ 100ml Iv) 100 ml @ 400 mls/hr Q6H PRN IVPB PAIN /FEVER Last administered on 06/30/17 23:53; Admin Dose 400 MLS/HR; Start at 22:00 Morphine Sulfate (morphine) 2 mg Q4H PRN IV PAIN; Start 06/30/17 at 22:00 Ondansetron HCl (Zofran Inj) 4 mg Q6H PRN IV NAUSEA AND/OR VOMITING Last administered on 06/30/17 23:53; Admin Dose 4 MG; Start 06/30/17 at 22:00 Hydralazine HCl 10 mg 10 mg Q6 PRN IV ELEVATED SYSTOLIC BP; Start 06/30/17 at 22:00 Piperacillin Sod/ Tazobactam Sod (Zosyn 2.25gm/ 50ml (Pmx)) 50 ml @ 100 mls/hr Q8 IVPB Last administered on 07/02/17 05:55; Admin Dose 100 MLS/HR; Start at 23:00 Insulin Aspart (Novolog Insulin Pen) (Adult SC Insulin - Mild Algorithm)... Q6 SC Last administered on 07/02/17 00:47; Admin Dose 1 UNIT; Start 07/01/17 at 00:00 Famotidine (Pepcid Iv) 10 mg DAILY IV Last administered on 07/02/17 09:30; Admin Dose 10 MG; Start 07/02/17 at 09:00 Cyclobenzaprine HCl (Flexeril) 10 mg BID PRN GTB Hiccups Last administered on 07/02/17 00:14; Admin Dose 10 MG; Start 07/01/17 at 22:00 CHELSIE HERNÁNDEZ Jul 02, 2017 11:03
--- NOTE | 2017-07-02 11:06 | PN ---
Date/Time of Note Date/Time of Note DATE: 07/02/17 TIME: 11:01 Assessment/Plan Lines/Catheters IV Catheter Type (from Nrs): midline Flores in Place (from Nrs): Yes Assessment/Plan Chief Complaint/Hosp Course 1. Cholelithiasis with ?cholecystitis: HIDA negative -possible lap avery: discussed with family and patient-wanting to manage conservatively at this point -ivf -abx -pain management -npo 2. UTI: -abx per sensitivity -frequent bladder emptying/cath care 3. Leukocytosis: likely 2/2 #1,2: improving -as above -supportive 4. Anemia: no acute bleed noted -monitor -transfuse as needed 5. ESRD on HD -HD per renal -avoid/limit nephrotoxic meds -judicious fluids -renally dose meds 6. Electrolyte imbalance: -optimize lytes 7. Elevated LFT: -as above 8. Hypoalbuminemia: multifactorial -optimize nutrition as able -management of infection/inflammation Thank you. Patient seen and examined in collaboration with Dr. Abraham Bojorquez. Problems: Subjective 24 Hr Interval Summary Abdominal pain improved but burn out tender lace. Leukocytosis improved. No fevers, chills, sob, congested cough, cp, palpitations, hernandez, dizziness, n/v/d/dysuria. Exam/Review of Systems Vital Signs Vitals Vital Signs Date Time Temp Pulse Resp B/P Pulse Ox O2 Delivery O2 Flow Rate FiO2 07/02/17 08:00 98.4 90 18 149/65 97 07/01/17 13:45 Room Air Intake and Output 07/01/17 07/01/17 07/02/17 14:59 22:59 06:59 Intake Total 1000 ml 800 ml Output Total 1620 ml 50 ml Balance -620 ml 750 ml Exam Free Text/Dictation Constitutional: alert, oriented Head: atraumatic, normocephalic Eyes: nl lids, nl sclera ENMT: mucosa pink and moist, nl nasal mucosa & septum Neck: non-tender, supple Respiratory: normal air movement, No labored breathing Cardiovascular: regular rate and rhythm Gastrointestinal: mod-tender right upper quad, other (peg), soft, No tender Genitourinary - Male: nl penis, nl scrotum Musculoskeletal: nl extremities to inspection Extremities: normal pulses Neurological: No nl mental status, No nl speech Skin: nl turgor Results Result Diagram: 07/02/17 0458 07/02/17 0458 SUSSY PAL NP Jul 02, 2017 11:06
[2017-07-02 14:00] VITALS: BP 141/63; RESP 17
--- NOTE | 2017-07-02 17:57 | PN ---
Date/Time of Note Date/Time of Note DATE: 07/02/17 TIME: 17:50 Assessment/Plan VTE Prophylaxis VTE Prophylaxis Intervention: SCD's Lines/Catheters IV Catheter Type (from [facility]): Mid Line Urinary Cath still in place: Yes Reason Cath still needed: urinary retention Assessment/Plan Chief Complaint/Hosp Course Assessment/Plan - Possible acute cholecystitis, continue abx. Dr. Bojorquez is following in general surgery consultation. Possible laparoscopic cholecystectomy family agrees. - E. coli UTI, change antibiotics to meropenem. - Acute kidney injury on chronic kidney disease. Continue hemodialysis per renal. Dr. Cheema is following in nephrology consultation. - History of cerebrovascular accident - Diabetes mellitus. Continue Lantus and NovoLog. - Diastolic congestive heart failure. Continue to monitor intake and output. - Paroxysmal atrial fibrillation, currently in sinus rhythm. - Hypertension. - Hyperlipidemia. - Dysphagia with G-tube. Further recommendations based on clinical course. Plan of care discussed with Dr. Patel Problems: Exam/Review of Systems Vital Signs Vitals Vital Signs Date Time Temp Pulse Resp B/P Pulse Ox O2 Delivery O2 Flow Rate FiO2 07/02/17 14:00 97.9 82 17 141/63 99 07/01/17 13:45 Room Air Intake and Output 07/01/17 07/01/17 07/02/17 15:00 23:00 07:00 Intake Total 1000 ml 800 ml Output Total 1620 ml 50 ml Balance -620 ml 750 ml Exam Constitutional: alert Neck: supple Respiratory: normal air movement Cardiovascular: nl pulses Gastrointestinal: other (G-tube), soft, tender Musculoskeletal: muscle weakness Extremities: normal pulses Results Result Diagram: 07/02/17 0458 07/02/17 0458 Results 24 hrs Laboratory Tests Test 07/01/17 18:33 07/02/17 00:34 07/02/17 04:58 07/02/17 05:57 Bedside Glucose 182 156 140 White Blood Count 15.0 #H Red Blood Count 3.41 L Hemoglobin 10.1 L Hematocrit 30.7 L Mean Corpuscular Volume 90.0 Mean Corpuscular Hemoglobin 29.6 Mean Corpuscular Hemoglobin Concent 32.9 Red Cell Distribution Width 13.6 Platelet Count 511 H Mean Platelet Volume 11.2 H Neutrophils % 80.2 H Lymphocytes % 11.0 L Monocytes % 5.7 Eosinophils % 1.5 Basophils % 0.7 Nucleated Red Blood Cells % 0.0 Neutrophils # 12.0 H Lymphocytes # 1.7 Monocytes # 0.9 Eosinophils # 0.2 Basophils # 0.1 Nucleated Red Blood Cells # 0.0 Sodium Level 143 Potassium Level 3.5 Chloride Level 102 Carbon Dioxide Level 28 Anion Gap 17 H Blood Urea Nitrogen 46 #H Creatinine 3.29 #H Glucose Level 151 Calcium Level 8.4 Total Bilirubin 0.1 L Direct Bilirubin 0.00 Indirect Bilirubin 0.1 Aspartate Amino Transf (AST/SGOT) 23 Alanine Aminotransferase (ALT/SGPT) 21 Alkaline Phosphatase 227 H Total Protein 7.7 Albumin 3.1 L Globulin 4.60 H Albumin/Globulin Ratio 0.67 Test 07/02/17 07:48 07/02/17 11:42 Lab Scanned Report REFERENCE LAB Bedside Glucose 159 Medications Medications Current Medications Dextrose/Sodium Chloride (D5-1/2ns) 1,000 ml @ 50 mls/hr Q20H IV Last administered on 07/02/17 00:09; Admin Dose 50 MLS/HR; Start 06/30/17 at 22:00 Miscellaneous Information [facility] ; Start 06/30/17 at 22: 00 Acetaminophen (Ofirmev 1000mg/ 100ml Iv) 100 ml @ 400 mls/hr Q6H PRN IVPB PAIN /FEVER Last administered on 06/30/17 23:53; Admin Dose 400 MLS/HR; Start at 22:00 Morphine Sulfate (morphine) 2 mg Q4H PRN IV PAIN; Start 06/30/17 at 22:00 Ondansetron HCl (Zofran Inj) 4 mg Q6H PRN IV NAUSEA AND/OR VOMITING Last administered on 06/30/17 23:53; Admin Dose 4 MG; Start 06/30/17 at 22:00 Hydralazine HCl 10 mg 10 mg Q6 PRN IV ELEVATED SYSTOLIC BP; Start 06/30/17 at 22:00 Piperacillin Sod/ Tazobactam Sod (Zosyn 2.25gm/ 50ml (Pmx)) 50 ml @ 100 mls/hr Q8 IVPB Last administered on 07/02/17 14:30; Admin Dose 100 MLS/HR; Start at 23:00 Insulin Aspart (Novolog Insulin Pen) (Adult SC Insulin - Mild Algorithm)... Q6 SC Last administered on 07/02/17 12:03; Admin Dose 1 UNIT; Start 07/01/17 at 00:00 Famotidine (Pepcid Iv) 10 mg DAILY IV Last administered on 07/02/17 09:30; Admin Dose 10 MG; Start 07/02/17 at 09:00 Cyclobenzaprine HCl (Flexeril) 10 mg BID PRN GTB Hiccups Last administered on 07/02/17 00:14; Admin Dose 10 MG; Start 07/01/17 at 22:00 GEOVANY IBARRA Jul 02, 2017 17:57
[2017-07-02 20:00] VITALS: BP 145/69; RESP 19
[2017-07-02] MEDS: MEROPENEM 500MG/50 ML (PMX) 50 ML IVPB SCH (20:43)
[2017-07-03] VITALS (12 sets, daily range): BP systolic 139–172; BP diastolic 70–83; PULSE 88–114; RESP 17–19
[2017-07-03] MEDS: hydrALAzine 20 MG INJ IV PRN (04:18)
[2017-07-03] MEDS: Insulin NOVOLOG SS MILD Algorithm (NPO/TPN/ENTERAL FEEDS) SC SCH ×3 (06:20→17:31)
[2017-07-03] MEDS: FAMOTIDINE 20 MG INJ IV SCH (08:28)
[2017-07-03] MEDS: MEROPENEM 500MG/50 ML (PMX) 50 ML IVPB SCH ×2 (08:29→20:53)
[2017-07-03] MEDS: BALSAM PERU/CASTOR OIL 60 GM TUBE TOP SCH ×2 (08:34→20:53)
[2017-07-03] MEDS: CYCLOBENZAPRINE 10 MG TAB GTB PRN (08:40)
--- NOTE | 2017-07-03 09:42 | PN ---
Date/Time of Note Date/Time of Note DATE: 07/03/17 TIME: 09:42 Assessment/Plan VTE Prophylaxis VTE Prophylaxis Intervention: other Lines/Catheters IV [facility] Type [facility]from [facility] Mid Line Urinary Cath still in place: Yes Reason Cath still needed: skin wounds contaminated by urine Assessment/Plan Chief Complaint/Hosp Course - Possible acute cholecystitis, continue abx. Dr. Bojorquez is following in general surgery consultation. Possible laparoscopic cholecystectomy family agrees. - E. coli UTI, change antibiotics to meropenem. - Acute kidney injury on chronic kidney disease. Continue hemodialysis per renal. Dr. Cheema is following in nephrology consultation. - History of cerebrovascular accident - Diabetes mellitus. Continue Lantus and NovoLog. - Diastolic congestive heart failure. Continue to monitor intake and output. - Paroxysmal atrial fibrillation, currently in sinus rhythm. - Hypertension. - Hyperlipidemia. - Dysphagia with G-tube. Problems: Subjective 24 Hr Interval Summary Free Text/Dictation Patient is resting, has no complaints Exam/Review of Systems Vital Signs Vitals Vital Signs Date Time Temp Pulse Resp B/P Pulse Ox O2 Delivery O2 Flow Rate FiO2 07/03/17 08:00 97.7 100 17 139/81 100 07/01/17 13:45 Room Air Intake and Output 07/02/17 07/02/17 07/03/17 15:00 23:00 07:00 Intake Total 50 ml 800 ml 950 ml Output Total 100 ml 2600 ml Balance 50 ml 700 ml -1650 ml Exam Constitutional: well developed Head: atraumatic, normocephalic Neck: supple Respiratory: clear to auscultation Cardiovascular: regular rate and rhythm Gastrointestinal: non-tender, soft Extremities: normal pulses Results Result Diagram: 07/02/17 0458 07/02/17 0458 Results 24 hrs Laboratory Tests Test 07/02/17 11:42 07/02/17 18:01 07/02/17 23:51 07/03/17 06:16 Bedside Glucose 159 150 177 161 Medications Medications Current Medications Dextrose/Sodium Chloride (D5-1/2ns) 1,000 ml @ 50 mls/hr Q20H IV Last administered on 07/02/17t 20:43; Admin Dose 50 MLS/HR; Start 06/30/17 at 22:00 Miscellaneous Information [facility] ; Start 06/30/17 at 22: 00 Acetaminophen (Ofirmev 1000mg/ 100ml Iv) 100 ml @ 400 mls/hr Q6H PRN IVPB PAIN /FEVER Last administered on 06/30/17 23:53; Admin Dose 400 MLS/HR; Start at 22:00 Morphine Sulfate (morphine) 2 mg Q4H PRN IV PAIN; Start 06/30/17 at 22:00 Ondansetron HCl (Zofran Inj) 4 mg Q6H PRN IV NAUSEA AND/OR VOMITING Last administered on 06/30/17 23:53; Admin Dose 4 MG; Start 06/30/17 at 22:00 Hydralazine HCl (Apresoline) 10 mg Q6 PRN IV ELEVATED SYSTOLIC BP Last administered on 07/03/17 04:18; Admin Dose 10 MG; Start 06/30/17 at 22:00 Insulin Aspart (Novolog Insulin Pen) (Adult SC Insulin - Mild Algorithm)... Q6 SC Last administered on 07/03/17 06:20; Admin Dose 1 UNIT; Start 07/01/17 at 00:00 Famotidine (Pepcid Iv) 10 mg DAILY IV Last administered on 07/03/17 08:28; Admin Dose 10 MG; Start 07/02/17 at 09:00 Cyclobenzaprine HCl 10 mg 10 mg BID PRN GTB Hiccups Last administered on 08:40; Admin Dose 10 MG; Start 07/01/17 at 22:00 Meropenem/Sodium Chloride (Merrem 500mg/50 ml(Pmx)) 50 ml @ 100 mls/hr Q12 IVPB Last administered on 07/03/17 08:29; Admin Dose 100 MLS/HR; Start 07/02 at 21:00 AURA CALL Jul 03, 2017 09:42
--- NOTE | 2017-07-03 11:18 | CONS ---
Date/Time of Note Date/Time of Note DATE: 07/03/17 TIME: : Assessment/Plan Assessment/Plan Chief Complaint/Hosp Course 1. Sepsis, better. 2. Pneumonia. 3. The patient has cholecystitis. 4. G tube status 5. Anemia. 6. Chronic kidney disease 5. Problems: Additional Assessment/Plan 1. Continue HD Consultation Date/Type/Reason Admit Date/Time Jun 30, 2017 at 19:01 Initial Consult Date 07/01/17 Type of Consultation: renal Referring Provider: KE JAVED MD 24 HR Interval Summary Subjective hx not possible: other (pt is confused) Exam/Review of Systems Vital Signs Vitals Vital Signs Date Time Temp Pulse Resp B/P Pulse Ox O2 Delivery O2 Flow Rate FiO2 07/03/17 08:00 97.7 100 17 139/81 100 07/01/17 13:45 Room Air Intake and Output 07/02/17 07/02/17 07/03/17 15:00 23:00 07:00 Intake Total 50 ml 800 ml 950 ml Output Total 100 ml 2600 ml Balance 50 ml 700 ml -1650 ml Exam Constitutional: frail, other (confused) Neck: supple Respiratory: diminished breath sounds Cardiovascular: regular rate and rhythm Gastrointestinal: other (VG tube) Results Result Diagram: 07/02/17 0458 07/02/17 0458 Results 24 hrs Laboratory Tests Test 07/02/17 11:42 07/02/17 18:01 07/02/17 23:51 07/03/17 06:16 Bedside Glucose 159 150 177 161 Medications Medications Current Medications Dextrose/Sodium Chloride (D5-1/2ns) 1,000 ml @ 50 mls/hr Q20H IV Last administered on 07/02/17 20:43; Admin Dose 50 MLS/HR; Start 06/30/17 at 22:00 Miscellaneous Information [facility] TO DOSE ONCE XX ; Start 06/30/17 at 22: 00 Acetaminophen (Ofirmev 1000mg/ 100ml Iv) 100 ml @ 400 mls/hr Q6H PRN IVPB PAIN /FEVER Last administered on 06/30/17 23:53; Admin Dose 400 MLS/HR; Start at 22:00 Morphine Sulfate (morphine) 2 mg Q4H PRN IV PAIN; Start 11/8/17 at 22:00 Ondansetron HCl (Zofran Inj) 4 mg Q6H PRN IV NAUSEA AND/OR VOMITING Last administered on 06/30/17 23:53; Admin Dose 4 MG; Start 06/30/17 at 22:00 Hydralazine HCl (Apresoline) 10 mg Q6 PRN IV ELEVATED SYSTOLIC BP Last administered on 07/03/17 04:18; Admin Dose 10 MG; Start 06/30/17 at 22:00 Insulin Aspart (Novolog Insulin Pen) (Adult SC Insulin - Mild Algorithm)... Q6 SC Last administered on 07/03/17 06:20; Admin Dose 1 UNIT; Start 07/01/17 at 00:00 Famotidine (Pepcid Iv) 10 mg DAILY IV Last administered on 07/03/17 08:28; Admin Dose 10 MG; Start 07/02/17 at 09:00 Cyclobenzaprine HCl 10 mg 10 mg BID PRN GTB Hiccups Last administered on 08:40; Admin Dose 10 MG; Start 07/01/17 at 22:00 Meropenem/Sodium Chloride (Merrem 500mg/50 ml(Pmx)) 50 ml @ 100 mls/hr Q12 IVPB Last administered on 07/03/17 08:29; Admin Dose 100 MLS/HR; Start 07/02 at 21:00 CHELSIE HERNÁNDEZ Jul 03, 2017 11:18
--- NOTE | 2017-07-03 14:52 | PN ---
Date/Time of Note Date/Time of Note DATE: 07/03/17 TIME: 14:49 Assessment/Plan Lines/Catheters IV Catheter Type (from Nrs): Mid Line Flores in Place (from Nrs): Yes Assessment/Plan Chief Complaint/Hosp Course 1. Cholelithiasis with Negative HIDA (no acute cholecystitis) -no lap avery: previously discussed with family and patient-wanting to manage conservatively at this point -ivf -pain management 2. UTI: -abx per sensitivity -frequent bladder emptying/cath care 3. Leukocytosis: likely 2/2 #2, ? 1, ? other: improving -as above -abx -supportive 4. Anemia: no acute bleed noted -monitor -transfuse as needed 5. ESRD on HD -HD per renal -avoid/limit nephrotoxic meds -judicious fluids -renally dose meds 6. Electrolyte imbalance: -optimize lytes 7. Elevated LFT: -as above 8. Hypoalbuminemia: multifactorial -optimize nutrition as able -management of infection/inflammation Thank you, Problems: Subjective 24 Hr Interval Summary Abdominal pain improved but grout machine tender. Leukocytosis improving. No fevers, chills, sob, congested cough, cp, palpitations, hernandez, dizziness, n/v/d/dysuria. Exam/Review of Systems Vital Signs Vitals Vital Signs Date Time Temp Pulse Resp B/P Pulse Ox O2 Delivery O2 Flow Rate FiO2 07/03/17 08:00 97.7 100 17 139/81 100 07/01/17 13:45 Room Air Intake and Output 07/02/17 07/02/17 07/03/17 15:00 23:00 07:00 Intake Total 50 ml 800 ml 950 ml Output Total 100 ml 2600 ml Balance 50 ml 700 ml -1650 ml Exam Free Text/Dictation Constitutional: alert, oriented Head: atraumatic, normocephalic Eyes: nl lids, nl sclera ENMT: mucosa pink and moist, nl nasal mucosa & septum Neck: non-tender, supple Respiratory: normal air movement, No labored breathing Cardiovascular: regular rate and rhythm Gastrointestinal: mod-tender right upper quad, other (peg), soft, No tender Genitourinary - Male: nl penis, nl scrotum Musculoskeletal: nl extremities to inspection Extremities: normal pulses Neurological: No nl mental status, No nl speech Skin: nl turgor Results Result Diagram: 07/02/17 0458 07/02/17 0458 LIZ PARKER MD Jul 03, 2017 14:52
[2017-07-03] MEDS: DEXTROSE 5%-0.45% NACL 1,000 ML IV SCH (17:33)
[2017-07-04 02:00] VITALS: BP 160/75; RESP 18
[2017-07-04] MEDS: DEXTROSE 5%-0.45% NACL 1,000 ML IV SCH ×2 (06:00→15:15)
[2017-07-04] MEDS: Insulin NOVOLOG SS MILD Algorithm (NPO/TPN/ENTERAL FEEDS) SC SCH ×4 (06:00→17:49)
[2017-07-04 07:25] VITALS: BP 178/82; RESP 18
[2017-07-04] MEDS: hydrALAzine 20 MG INJ IV PRN ×2 (07:59→20:47)
--- NOTE | 2017-07-04 08:09 | CONS ---
Date/Time of Note Date/Time of Note DATE: 07/04/17 TIME: 08:08 Assessment/Plan Assessment/Plan Chief Complaint/Hosp Course 1. Sepsis, better. 2. Pneumonia. 3. The patient has cholecystitis. 4. G tube status 5. Anemia. 6. Chronic kidney disease 5. Problems: Additional Assessment/Plan 1. HD was yesterday. 2. continue HD Consultation Date/Type/Reason Admit Date/Time Jun 30, 2017 at 19:01 Initial Consult Date 07/01/17 Type of Consultation: renal Reason for Consultation Dr Cheema Referring Provider: KE JAVED MD 24 HR Interval Summary Free Text/Dictation non comprehensive Exam/Review of Systems Vital Signs Vitals Vital Signs Date Time Temp Pulse Resp B/P Pulse Ox O2 Delivery O2 Flow Rate FiO2 07/04/17 07:25 98.1 96 18 178/82 99 07/01/17 13:45 Room Air Intake and Output 07/03/17 07/03/17 07/04/17 14:59 22:59 06:59 Intake Total 550 ml 650 ml 575 ml Output Total 2300 ml 250 ml 200 ml Balance -1750 ml 400 ml 375 ml Exam Constitutional: alert (name) Neck: supple Respiratory: clear to auscultation Cardiovascular: regular rate and rhythm Gastrointestinal: other (g tube), soft, surgical scars Results Result Diagram: 07/02/17 0458 07/02/17 0458 Results 24 hrs Laboratory Tests Test 07/03/17 11:56 07/03/17 17:30 07/04/17 00:30 07/04/17 05:50 Bedside Glucose 176 139 124 119 Medications Medications Current Medications Dextrose/Sodium Chloride (D5-1/2ns) 1,000 ml @ 50 mls/hr Q20H IV Last administered on 07/03/17 17:33; Admin Dose 50 MLS/HR; Start 06/30/17 at 22:00 Miscellaneous Information [facility] TO DOSE ONCE XX ; Start 06/30/17 at 22: 00 Acetaminophen (Ofirmev 1000mg/ 100ml Iv) 100 ml @ 400 mls/hr Q6H PRN IVPB PAIN /FEVER Last administered on 06/30/17 23:53; Admin Dose 400 MLS/HR; Start at 22:00 Morphine Sulfate (morphine) 2 mg Q4H PRN IV PAIN; Start 06/30/17 at 22:00 Ondansetron HCl (Zofran Inj) 4 mg Q6H PRN IV NAUSEA AND/OR VOMITING Last administered on 06/30/17 23:53; Admin Dose 4 MG; Start 06/30/17 at 22:00 Hydralazine HCl (Apresoline) 10 mg Q6 PRN IV ELEVATED SYSTOLIC BP Last administered on 07/04/17 07:59; Admin Dose 10 MG; Start 06/30/17 at 22:00 Insulin Aspart (Novolog Insulin Pen) (Adult SC Insulin - Mild Algorithm)... Q6 SC Last administered on 07/03/17 12:01; Admin Dose 1 UNIT; Start 07/01/17 at 00:00 Famotidine (Pepcid Iv) 10 mg DAILY IV Last administered on 07/03/17 08:28; Admin Dose 10 MG; Start 07/02/17 at 09:00 Cyclobenzaprine HCl 10 mg 10 mg BID PRN GTB Hiccups Last administered on 08:40; Admin Dose 10 MG; Start 07/01/17 at 22:00 Meropenem/Sodium Chloride (Merrem 500mg/50 ml(Pmx)) 50 ml @ 100 mls/hr Q12 IVPB Last administered on 07/03/17 20:53; Admin Dose 100 MLS/HR; Start 07/02 at 21:00 CHELSIE HERNÁNDEZ Jul 04, 2017 08:09
[2017-07-04 08:30] VITALS: BP 156/72; PULSE 94
[2017-07-04] MEDS ORDERED: BISACODYL 10 MG SUPP PR ONE (08:30)
[2017-07-04] MEDS: FAMOTIDINE 20 MG INJ IV SCH (09:10)
[2017-07-04] MEDS: MEROPENEM 500MG/50 ML (PMX) 50 ML IVPB SCH ×2 (09:10→20:49)
[2017-07-04] MEDS: BALSAM PERU/CASTOR OIL 60 GM TUBE TOP SCH ×2 (09:10→20:47)
--- NOTE | 2017-07-04 10:24 | PN ---
Date/Time of Note Date/Time of Note DATE: 07/04/17 TIME: 10:24 Assessment/Plan VTE Prophylaxis VTE Prophylaxis Intervention: other Lines/Catheters [facility] Type [facility]from [facility] permacatheter Urinary Cath still in place: Yes Reason Cath still needed: skin wounds contaminated by urine Assessment/Plan Chief Complaint/Hosp Course - Possible acute cholecystitis, continue abx. Dr. Bojroquez is following in general surgery consultation. Possible laparoscopic cholecystectomy family agrees. - E. coli UTI, change antibiotics to meropenem. - Acute kidney injury on chronic kidney disease. Continue hemodialysis per renal. Dr. Cheema is following in nephrology consultation. - History of cerebrovascular accident - Diabetes mellitus. Continue Lantus and NovoLog. - Diastolic congestive heart failure. Continue to monitor intake and output. - Paroxysmal atrial fibrillation, currently in sinus rhythm. - Hypertension. - Hyperlipidemia. - Dysphagia with G-tube. Problems: Subjective 24 Hr Interval Summary Free Text/Dictation Patient not verbally responsive Exam/Review of Systems Vital Signs Vitals Vital Signs Date Time Temp Pulse Resp B/P Pulse Ox O2 Delivery O2 Flow Rate FiO2 07/04/17 08:30 94 156/72 07/04/17 07:25 98.1 18 99 07/01/17 13:45 Room Air Intake and Output 07/03/17 07/03/17 07/04/17 15:00 23:00 07:00 Intake Total 50 ml 650 ml 575 ml Output Total 250 ml 200 ml Balance 50 ml 400 ml 375 ml Exam Constitutional: well developed Head: atraumatic, normocephalic Neck: supple Respiratory: clear to auscultation Cardiovascular: regular rate and rhythm Gastrointestinal: non-tender, soft Extremities: normal pulses Results Result Diagram: 07/02/17 0458 07/02/17 0458 Results 24 hrs Laboratory Tests Test 07/03/17 11:56 07/03/17 17:30 07/04/17 00:30 07/04/17 05:50 Bedside Glucose 176 139 124 119 Medications Medications Current Medications Dextrose/Sodium Chloride (D5-1/2ns) 1,000 ml @ 50 mls/hr Q20H IV Last administered on 07/03/17t 17:33; Admin Dose 50 MLS/HR; Start 06/30/17 at 22:00 Miscellaneous Information [facility] TO DOSE ONCE XX ; Start 06/30/17 at 22: 00 Acetaminophen (Ofirmev 1000mg/ 100ml Iv) 100 ml @ 400 mls/hr Q6H PRN IVPB PAIN /FEVER Last administered on 06/30/17 23:53; Admin Dose 400 MLS/HR; Start at 22:00 Morphine Sulfate (morphine) 2 mg Q4H PRN IV PAIN; Start 06/30/17 at 22:00 Ondansetron HCl (Zofran Inj) 4 mg Q6H PRN IV NAUSEA AND/OR VOMITING Last administered on 06/30/17 23:53; Admin Dose 4 MG; Start 06/30/17 at 22:00 Hydralazine HCl (Apresoline) 10 mg Q6 PRN IV ELEVATED SYSTOLIC BP Last administered on 07/04/17 07:59; Admin Dose 10 MG; Start 06/30/17 at 22:00 Insulin Aspart (Novolog Insulin Pen) (Adult SC Insulin - Mild Algorithm)... Q6 SC Last administered on 07/03/17 12:01; Admin Dose 1 UNIT; Start 07/01/17 at 00:00 Famotidine (Pepcid Iv) 10 mg DAILY IV Last administered on 07/04/17 09:10; Admin Dose 10 MG; Start 07/02/17 at 09:00 Cyclobenzaprine HCl 10 mg 10 mg BID PRN GTB Hiccups Last administered on 08:40; Admin Dose 10 MG; Start 07/01/17 at 22:00 Meropenem/Sodium Chloride (Merrem 500mg/50 ml(Pmx)) 50 ml @ 100 mls/hr Q12 IVPB Last administered on 07/04/17 09:10; Admin Dose 100 MLS/HR; Start 07/02 at 21:00 AURA CALL Jul 04, 2017 10:24
[2017-07-04] MEDS ORDERED: ACETAMINOPHEN 650MG/20.3ML CUP GTB PRN (10:30)
[2017-07-04] MEDS ORDERED: NITROGLYCERIN (SL) 0.4 MG TAB SL PRN (10:30)
[2017-07-04] MEDS: BISACODYL 10 MG SUPP PR SCH (10:30)
[2017-07-04] MEDS ORDERED: DOCUSATE SODIUM 10 MG/ML (10ML CUP) PO PRN (10:30)
[2017-07-04] MEDS ORDERED: DEXTROSE 50% 50 ML SYRINGE IV PRN ×2 (11:00)
[2017-07-04] MEDS ORDERED: GLUCOSE GEL 15 GRAM TUBE BUCCAL PRN (11:00)
[2017-07-04] MEDS ORDERED: GLUCOSE GEL 15 GRAM TUBE PO PRN ×2 (11:00)
[2017-07-04] MEDS ORDERED: GLUCAGON 1 MG INJ IM PRN (11:00)
[2017-07-04 13:40] VITALS: BP 147/69; RESP 17
--- NOTE | 2017-07-04 16:21 | PN ---
Date/Time of Note Date/Time of Note DATE: 07/04/17 TIME: 16:17 Assessment/Plan Lines/Catheters IV Catheter Type (from Nrs): permacatheter Flores in Place (from Nrs): Yes Assessment/Plan Chief Complaint/Hosp Course 1. Cholelithiasis with Negative HIDA (no acute cholecystitis) -no lap avery: previously discussed with family and patient-wanting to manage conservatively at this point -ivf -pain management 2. UTI: -abx per sensitivity -frequent bladder emptying/cath care 3. Leukocytosis: likely 2/2 #2, ? 1, ? other, no fever -as above -abx -supportive -trend 4. Anemia: no acute bleed noted -monitor -transfuse as needed 5. ESRD on HD -HD per renal -avoid/limit nephrotoxic meds -judicious fluids -renally dose meds 6. Electrolyte imbalance: -optimize lytes 7. Elevated LFT: -as above 8. Hypoalbuminemia: multifactorial -optimize nutrition as able -management of infection/inflammation Thank you. Patient seen and examined in collaboration with Dr. Abraham Bojorquez. Problems: Subjective 24 Hr Interval Summary Very sleepy today. Nonverbal indicators of pain not present. Appears comfortable. No fevers, sob, congested cough, cp, hernandez, dizziness, n/v/d/dysuria. Exam/Review of Systems Vital Signs Vitals Vital Signs Date Time Temp Pulse Resp B/P Pulse Ox O2 Delivery O2 Flow Rate FiO2 07/04/17 13:40 98.5 100 17 147/69 96 07/01/17 13:45 Room Air Intake and Output 07/03/17 07/03/17 07/04/17 15:00 23:00 07:00 Intake Total 50 ml 650 ml 575 ml Output Total 250 ml 200 ml Balance 50 ml 400 ml 375 ml Exam Free Text/Dictation Constitutional: alert, oriented, somnolent Head: atraumatic, normocephalic Eyes: nl lids, nl sclera ENMT: mucosa pink and moist, nl nasal mucosa & septum Neck: non-tender, supple Respiratory: normal air movement, No labored breathing Cardiovascular: regular rate and rhythm Gastrointestinal: min-tender right upper quad, other (peg), soft Genitourinary - Male: nl penis, nl scrotum Musculoskeletal: nl extremities to inspection Extremities: normal pulses Neurological: No nl mental status, No nl speech Skin: nl turgor Results Result Diagram: 07/02/17 0458 07/02/17 0458 SUSSY PAL NP Jul 04, 2017 16:21
[2017-07-04] MEDS: LANSOPRAZOLE 30 MG CAP GTB SCH (20:45)
[2017-07-04] MEDS: AMLODIPINE 5 MG TAB GTB SCH (20:45)
[2017-07-04 20:46] VITALS: BP 170/75; RESP 20
[2017-07-04] MEDS: INSULIN GLARGINE [LANtus] 3 ML PEN SC SCH (20:46)
[2017-07-05] VITALS (11 sets, daily range): BP systolic 122–181; BP diastolic 60–80; PULSE 98–101; RESP 18–19
[2017-07-05] MEDS: DEXTROSE 5%-0.45% NACL 1,000 ML IV SCH ×2 (02:00→09:34)
[2017-07-05 05:16] LABS: BASOPHIL # 0.1 10^3/ul (0.0-0.1); BASOPHILS % 0.9 % (0.0-2.0); EOSINOPHILS # 0.6 10^3/ul (0.0-0.5); EOSINOPHILS % 5.3 % (0.0-7.0); HEMATOCRIT 29.8 % (42.0-52.0); HEMOGLOBIN 9.6 g/dl (14.0-18.0); LYMPHOCYTES # 2.2 10^3/ul (0.8-2.9); LYMPHOCYTES % 19.5 % (15.0-51.0); MEAN CORPUSCULAR HEMOGLOBIN 28.8 pg (29.0-33.0); MEAN CORPUSCULAR HGB CONC 32.2 g/dl (32.0-37.0); MEAN CORPUSCULAR VOLUME 89.5 fl (82.0-101.0); MEAN PLATELET VOLUME 10.8 fl (7.4-10.4); MONOCYTE # 0.8 10^3/ul (0.3-0.9); MONOCYTES % 7.1 % (0.0-11.0); NEUTROPHIL # 7.3 10^3/ul (1.6-7.5); NEUTROPHILS % 66.4 % (39.0-77.0); PLATELET COUNT 562 10^3/UL (140-415); RED BLOOD COUNT 3.33 10^6/ul (4.70-6.10); WHITE BLOOD COUNT 11.1 10^3/ul (4.8-10.8)
[2017-07-05 05:37] LABS: CALCIUM 7.7 mg/dl (8.4-10.2); CREATININE 5.31 mg/dl (0.61-1.24)
[2017-07-05] MEDS: Insulin NOVOLOG SS MILD Algorithm (NPO/TPN/ENTERAL FEEDS) SC SCH ×4 (06:00→17:16)
[2017-07-05] MEDS: AMLODIPINE 5 MG TAB GTB SCH ×2 (08:22→21:13)
[2017-07-05] MEDS: MEROPENEM 500MG/50 ML (PMX) 50 ML IVPB SCH ×2 (08:26→21:02)
[2017-07-05] MEDS: BALSAM PERU/CASTOR OIL 60 GM TUBE TOP SCH ×2 (08:27→21:13)
[2017-07-05] MEDS: ZINC SULFATE 220 MG CAP GTB SCH (08:27)
[2017-07-05] MEDS: ASCORBIC ACID 500 MG TAB GTB SCH (08:27)
[2017-07-05] MEDS: FAMOTIDINE 20 MG INJ IV SCH (08:27)
[2017-07-05] MEDS ORDERED: TAMSULOSIN (SR) 0.4 MG CAP PO SCH (09:00)
[2017-07-05] MEDS: LANSOPRAZOLE 30 MG CAP GTB SCH ×2 (09:31→21:13)
[2017-07-05] MEDS: ONDANSETRON 4 MG INJ IV PRN (09:31)
[2017-07-05] MEDS: BISACODYL 10 MG SUPP PR SCH (11:08)
--- NOTE | 2017-07-05 11:28 | PN ---
Date/Time of Note Date/Time of Note DATE: 07/05/17 TIME: 11:25 Assessment/Plan Lines/Catheters IV Catheter Type (from [facility]): permacath Flores in Place (from [facility]): Yes Assessment/Plan Chief Complaint/Hosp Course 1. Cholelithiasis with Negative HIDA (no acute cholecystitis) -no lap avery: family and patient prefer to manage conservatively at this point -diet as tolerated -dc planning per primary team 2. UTI & ? PNA -abx per sensitivity -frequent bladder emptying/cath care -pulmonary toilette 3. Leukocytosis: likely 2/2 #2, ? 1, ? other, no fever. Improving. -as above -abx -supportive -trend 4. Anemia: no acute bleed noted -monitor -transfuse as needed 5. ESRD on HD -HD per renal -avoid/limit nephrotoxic meds -judicious fluids -renally dose meds 6. Electrolyte imbalance: -optimize lytes 7. Elevated LFT: -as above 8. Hypoalbuminemia: multifactorial -optimize nutrition as able -management of infection/inflammation Thank you, Problems: Subjective 24 Hr Interval Summary WBC improving. Drowsy. Nonverbal indicators of pain not present. Appears comfortable. No fevers, sob, congested cough, cp, hernandez, dizziness, n/v/d/dysuria. Exam/Review of Systems Vital Signs Vitals Vital Signs Date Time Temp Pulse Resp B/P Pulse Ox O2 Delivery O2 Flow Rate FiO2 07/05/17 07:47 96.8 100 18 136/61 98 07/01/17 13:45 Room Air Intake and Output 07/04/17 07/04/17 07/05/17 15:00 23:00 07:00 Intake Total 50 ml 550 ml 550 ml Output Total 200 ml Balance 50 ml 550 ml 350 ml Exam Free Text/Dictation Constitutional: alert, oriented, somnolent Head: atraumatic, normocephalic Eyes: nl lids, nl sclera ENMT: mucosa pink and moist, nl nasal mucosa & septum Neck: non-tender, supple Respiratory: normal air movement, No labored breathing Cardiovascular: regular rate and rhythm Gastrointestinal: min-tender right upper quad, other (peg), soft Genitourinary - Male: nl penis, nl scrotum Musculoskeletal: nl extremities to inspection Extremities: normal pulses Neurological: No nl mental status, No nl speech Skin: nl turgor Results Result Diagram: 07/05/17 0430 07/05/17 0430 LIZ PARKER MD Jul 05, 2017 11:28
[2017-07-05] MEDS ORDERED: VITAMIN A & D 5 GM OINT PACKET TOP ONE (13:27)
--- NOTE | 2017-07-05 15:55 | CONS ---
Date/Time of Note Date/Time of Note DATE: 07/05/17 TIME: 15:48 Assessment/Plan Assessment/Plan Chief Complaint/Hosp Course Chief Complaint/Hosp Course - #Possible acute cholecystitis, continue abx. .No surgery per Dr Bojorquez - #E. coli UTI, improving leukocytosis - # ESRD on HD Acute kidney injury on chronic kidney disease. Continue hemodialysis per renal. Dr. Cheema is following in nephrology consultation. - #History of cerebrovascular accident - #Diabetes mellitus. Continue Lantus and NovoLog. - #- Paroxysmal atrial fibrillation, currently in sinus rhythm. - # Dysphagia with G tube Plan - HD tmw - Gentle K repletion - labs am Problems: Consultation Date/Type/Reason Admit Date/Time Jun 30, 2017 at 19:01 Initial Consult Date 07/01/17 Type of Consultation: renal Referring Provider: KE JAVED MD 24 HR Interval Summary Free Text/Dictation No acute complains HD tmw Exam/Review of Systems Vital Signs Vitals Vital Signs Date Time Temp Pulse Resp B/P Pulse Ox O2 Delivery O2 Flow Rate FiO2 07/05/17 13:44 97.8 93 18 144/71 99 07/01/17 13:45 Room Air Intake and Output 07/04/17 07/04/17 07/05/17 15:00 23:00 07:00 Intake Total 50 ml 550 ml 550 ml Output Total 200 ml Balance 50 ml 550 ml 350 ml Exam Constitutional: alert (name) Neck: supple Respiratory: clear to auscultation Cardiovascular: regular rate and rhythm Gastrointestinal: other (g tube), soft, surgical scars permacath Results Result Diagram: 07/05/17 0430 07/05/17 0430 Results 24 hrs Laboratory Tests Test 07/04/17 17:43 07/04/17 20:44 07/05/17 00:29 07/05/17 04:30 Bedside Glucose 129 114 96 White Blood Count 11.1 #H Red Blood Count 3.33 L Hemoglobin 9.6 L Hematocrit 29.8 L Mean Corpuscular Volume 89.5 Mean Corpuscular Hemoglobin 28.8 L Mean Corpuscular Hemoglobin Concent 32.2 Red Cell Distribution Width 14.0 Platelet Count 562 H Mean Platelet Volume 10.8 H Neutrophils % 66.4 Lymphocytes % 19.5 Monocytes % 7.1 Eosinophils % 5.3 Basophils % 0.9 Nucleated Red Blood Cells % 0.0 Neutrophils # 7.3 Lymphocytes # 2.2 Monocytes # 0.8 Eosinophils # 0.6 H Basophils # 0.1 Nucleated Red Blood Cells # 0.0 Sodium Level 142 Potassium Level 3.0 L Chloride Level 106 Carbon Dioxide Level 26 Anion Gap 13 Blood Urea Nitrogen 40 H Creatinine 5.31 H Glucose Level 69 L Calcium Level 7.7 L Test 07/05/17 06:09 07/05/17 11:23 Bedside Glucose 70 139 Medications Medications Current Medications Dextrose/Sodium Chloride (D5-1/2ns) 1,000 ml @ 50 mls/hr Q20H IV Last administered on 07/05/17 09:34; Admin Dose 50 MLS/HR; Start 06/30/17 at 22:00 Miscellaneous Information [facility] TO DOSE ONCE XX ; Start 06/30/17 at 22: 00 Acetaminophen (Ofirmev 1000mg/ 100ml Iv) 100 ml @ 400 mls/hr Q6H PRN IVPB PAIN /FEVER Last administered on 06/30/17 23:53; Admin Dose 400 MLS/HR; Start at 22:00 Morphine Sulfate (morphine) 2 mg Q4H PRN IV PAIN; Start 06/30/17 at 22:00 Ondansetron HCl (Zofran Inj) 4 mg Q6H PRN IV NAUSEA AND/OR VOMITING Last administered on 07/05/17 09:31; Admin Dose 4 MG; Start 06/30/17 at 22:00 Hydralazine HCl (Apresoline) 10 mg Q6 PRN IV ELEVATED SYSTOLIC BP Last administered on 07/04/17 20:47; Admin Dose 10 MG; Start 06/30/17 at 22:00 Insulin Aspart (Novolog Insulin Pen) (Adult SC Insulin - Mild Algorithm)... Q6 SC Last administered on 07/03/17 12:01; Admin Dose 1 UNIT; Start 07/01/17 at 00:00 Famotidine (Pepcid Iv) 10 mg DAILY IV Last administered on 07/05/17 08:27; Admin Dose 10 MG; Start 07/02/17 at 09:00 Cyclobenzaprine HCl (Flexeril) 10 mg BID PRN GTB Hiccups Last administered on 11/11/17at 08:40; Admin Dose 10 MG; Start 07/01/17 at 22:00 Acetaminophen (Tylenol Liquid) 650 mg DAILY PRN GTB PAIN AND OR ELEVATED TEMP; Start 07/04/17 at 10:30 Amlodipine Besylate (Norvasc) 5 mg BID GTB Last administered on 07/04/17 20: 45; Admin Dose 5 MG; Start 07/04/17 at 21:00 Ascorbic Acid (Vitamin C) 500 mg DAILY GTB Last administered on 07/05/17 08: 27; Admin Dose 500 MG; Start 07/05/17 at 09:00 Bisacodyl (Dulcolax Supp) 10 mg Q24H IL Last administered on 07/05/17 11:08; Admin Dose 10 MG; Start 07/04/17 at 10:30 Clonidine (Catapres) 0.2 mg DAILY GTB ; Start 07/05/17 at 09:00 Diphenhydramine HCl (Benadryl) 25 mg Q6H PRN GTB ITCHING; Start 07/04/17 at 10 :30 Hydralazine HCl (Apresoline) 50 mg Q6H PRN PO ELEVATED BLOOD PRESSURE; Start 07/04/17 at 10:30 Insulin Glargine (Lantus) 18 unit QHS SC Last administered on 07/04/17 20:46 ; Admin Dose 18 UNIT; Start 07/04/17 at 21:00 Lansoprazole (Prevacid) 30 mg BID GTB Last administered on 07/05/17 09:31; Admin Dose 30 MG; Start 07/04/17 at 21:00 Nitroglycerin (Nitroglycerin (Sl Tab) 0.4 Mg) 0.4 tab [id number] PRN SL CHEST PAIN; Start 07/04/17 at 10:30 Tamsulosin HCl (Flomax) 0.4 mg DAILY PO ; Start 07/05/17 at 09:00 Zinc Sulfate (Zinc Sulfate) 220 mg DAILY GTB Last administered on 07/05/17 08 :27; Admin Dose 220 MG; Start 07/05/17 at 09:00 Docusate Sodium (Colace Liquid Cup) 200 mg QHS PRN GTB CONSTIPATION; Start 08/08 at 10:37 Miscellaneous Information 1 ea NOTE XX ; Start 07/04/17 at 11:00 Glucose (Glutose) 15 gm Q15M PRN PO DECREASED GLUCOSE; Start 07/04/17 at 11:00 Glucose (Glutose) 22.5 gm Q15M PRN PO DECREASED GLUCOSE; Start 07/04/17 at 11: 00 Dextrose (D50w Syringe) 25 ml Q15M PRN IV DECREASED GLUCOSE; Start 07/04/17 at 11:00 Dextrose (D50w Syringe) 50 ml Q15M PRN IV DECREASED GLUCOSE; Start 07/04/17 at 11:00 Glucagon (Glucagen) 1 mg Q15M PRN IM DECREASED GLUCOSE; Start 07/04/17 at 11: 00 Glucose 15 gm 15 gm Q15M PRN BUCCAL DECREASED GLUCOSE; Start 07/04/17 at 11:00 Meropenem/Sodium Chloride (Merrem 500mg/50 ml(Pmx)) 50 ml @ 100 mls/hr Q24H IVPB ; Start 07/05/17 at 21:00 PORTIA OLIVER MD Jul 05, 2017 15:55
[2017-07-05] MEDS ORDERED: POTASSIUM CHLORIDE (SR) 20 MEQ TAB PO SCH (16:00)
[2017-07-05] MEDS ORDERED: POTASSIUM CHLORIDE 20 MEQ POWDER FOR ORAL SOLN GTB SCH (16:30)
--- NOTE | 2017-07-05 17:00 | PN ---
Date/Time of Note Date/Time of Note DATE: 07/05/17 TIME: 16:58 Assessment/Plan VTE Prophylaxis VTE Prophylaxis Intervention: SCD's Lines/Catheters IV Catheter Type (from Nrs): permacath Urinary Cath still in place: Yes Reason Cath still needed: urinary retention Assessment/Plan Chief Complaint/Hosp Course Assessment/Plan - Possible acute cholecystitis, continue abx. Dr. Bojorquez is following in general surgery consultation. Family prefer to manage conservatively versus surgery. - E. coli UTI, continue meropenem. - Acute kidney injury on chronic kidney disease. Continue hemodialysis per renal. Dr. Cheema is following in nephrology consultation. - History of cerebrovascular accident - Diabetes mellitus. Continue Lantus and NovoLog. - Diastolic congestive heart failure. Continue to monitor intake and output. - Paroxysmal atrial fibrillation, currently in sinus rhythm. - Hypertension. - Hyperlipidemia. - Dysphagia with G-tube. Further recommendations based on clinical course. Plan of care discussed with Dr. Patel Problems: Exam/Review of Systems Vital Signs Vitals Vital Signs Date Time Temp Pulse Resp B/P Pulse Ox O2 Delivery O2 Flow Rate FiO2 07/05/17 13:44 97.8 93 18 144/71 99 07/01/17 13:45 Room Air Intake and Output 07/04/17 07/04/17 07/05/17 15:00 23:00 07:00 Intake Total 50 ml 550 ml 550 ml Output Total 200 ml Balance 50 ml 550 ml 350 ml Exam Constitutional: alert Neck: supple Respiratory: normal air movement Cardiovascular: nl pulses Gastrointestinal: other (G-tube), soft, tender Musculoskeletal: muscle weakness Extremities: normal pulses Results Result Diagram: 07/05/17 0430 07/05/17 0430 Results 24 hrs Laboratory Tests Test 07/04/17 17:43 07/04/17 20:44 07/05/17 00:29 07/05/17 04:30 Bedside Glucose 129 114 96 White Blood Count 11.1 #H Red Blood Count 3.33 L Hemoglobin 9.6 L Hematocrit 29.8 L Mean Corpuscular Volume 89.5 Mean Corpuscular Hemoglobin 28.8 L Mean Corpuscular Hemoglobin Concent 32.2 Red Cell Distribution Width 14.0 Platelet Count 562 H Mean Platelet Volume 10.8 H Neutrophils % 66.4 Lymphocytes % 19.5 Monocytes % 7.1 Eosinophils % 5.3 Basophils % 0.9 Nucleated Red Blood Cells % 0.0 Neutrophils # 7.3 Lymphocytes # 2.2 Monocytes # 0.8 Eosinophils # 0.6 H Basophils # 0.1 Nucleated Red Blood Cells # 0.0 Sodium Level 142 Potassium Level 3.0 L Chloride Level 106 Carbon Dioxide Level 26 Anion Gap 13 Blood Urea Nitrogen 40 H Creatinine 5.31 H Glucose Level 69 L Calcium Level 7.7 L Test 07/05/17 06:09 07/05/17 11:23 Bedside Glucose 70 139 Medications Medications Current Medications Dextrose/Sodium Chloride (D5-1/2ns) 1,000 ml @ 50 mls/hr Q20H IV Last administered on 07/05/17 09:34; Admin Dose 50 MLS/HR; Start 06/30/17 at 22:00 Miscellaneous Information [facility] TO DOSE ONCE XX ; Start 06/30/17 at 22: 00 Acetaminophen (Ofirmev 1000mg/ 100ml Iv) 100 ml @ 400 mls/hr Q6H PRN IVPB PAIN /FEVER Last administered on 06/30/17 23:53; Admin Dose 400 MLS/HR; Start at 22:00 Morphine Sulfate (morphine) 2 mg Q4H PRN IV PAIN; Start 06/30/17 at 22:00 Ondansetron HCl (Zofran Inj) 4 mg Q6H PRN IV NAUSEA AND/OR VOMITING Last administered on 07/05/17 09:31; Admin Dose 4 MG; Start 06/30/17 at 22:00 Hydralazine HCl (Apresoline) 10 mg Q6 PRN IV ELEVATED SYSTOLIC BP Last administered on 07/04/17 20:47; Admin Dose 10 MG; Start 06/30/17 at 22:00 Insulin Aspart (Novolog Insulin Pen) (Adult SC Insulin - Mild Algorithm)... Q6 SC Last administered on 07/03/17 12:01; Admin Dose 1 UNIT; Start 07/01/17 at 00:00 Famotidine (Pepcid Iv) 10 mg DAILY IV Last administered on 07/05/17 08:27; Admin Dose 10 MG; Start 07/02/17 at 09:00 Cyclobenzaprine HCl (Flexeril) 10 mg BID PRN GTB Hiccups Last administered on 07/03/17 08:40; Admin Dose 10 MG; Start 07/01/17 at 22:00 Acetaminophen (Tylenol Liquid) 650 mg DAILY PRN GTB PAIN AND OR ELEVATED TEMP; Start 07/04/17 at 10:30 Amlodipine Besylate (Norvasc) 5 mg BID GTB Last administered on 07/04/17 20: 45; Admin Dose 5 MG; Start 07/04/17 at 21:00 Ascorbic Acid (Vitamin C) 500 mg DAILY GTB Last administered on 07/05/17 08: 27; Admin Dose 500 MG; Start 07/05/17 at 09:00 Bisacodyl (Dulcolax Supp) 10 mg Q24H NM Last administered on 07/05/17 11:08; Admin Dose 10 MG; Start 07/04/17 at 10:30 Clonidine (Catapres) 0.2 mg DAILY GTB ; Start 07/05/17 at 09:00 Diphenhydramine HCl (Benadryl) 25 mg Q6H PRN GTB ITCHING; Start 07/04/17 at 10 :30 Hydralazine HCl (Apresoline) 50 mg Q6H PRN PO ELEVATED BLOOD PRESSURE; Start 07/04/17 at 10:30 Insulin Glargine (Lantus) 18 unit QHS SC Last administered on 07/04/17 20:46 ; Admin Dose 18 UNIT; Start 07/04/17 at 21:00 Lansoprazole (Prevacid) 30 mg BID GTB Last administered on 07/05/17 09:31; Admin Dose 30 MG; Start 07/04/17 at 21:00 Nitroglycerin (Nitroglycerin (Sl Tab) 0.4 Mg) 0.4 tab [id number] PRN SL CHEST PAIN; Start 07/04/17 at 10:30 Tamsulosin HCl (Flomax) 0.4 mg DAILY PO ; Start 07/05/17 at 09:00 Zinc Sulfate (Zinc Sulfate) 220 mg DAILY GTB Last administered on 07/05/17 08 :27; Admin Dose 220 MG; Start 07/05/17 at 09:00 Docusate Sodium (Colace Liquid Cup) 200 mg QHS PRN GTB CONSTIPATION; Start 08/08 at 10:37 Miscellaneous Information 1 ea NOTE XX ; Start 07/04/17 at 11:00 Glucose (Glutose) 15 gm Q15M PRN PO DECREASED GLUCOSE; Start 07/04/17 at 11:00 Glucose (Glutose) 22.5 gm Q15M PRN PO DECREASED GLUCOSE; Start 07/04/17 at 11: 00 Dextrose (D50w Syringe) 25 ml Q15M PRN IV DECREASED GLUCOSE; Start 07/04/17 at 11:00 Dextrose (D50w Syringe) 50 ml Q15M PRN IV DECREASED GLUCOSE; Start 07/04/17 at 11:00 Glucagon (Glucagen) 1 mg Q15M PRN IM DECREASED GLUCOSE; Start 07/04/17 at 11: 00 Glucose 15 gm 15 gm Q15M PRN BUCCAL DECREASED GLUCOSE; Start 07/04/17 at 11:00 Meropenem/Sodium Chloride (Merrem 500mg/50 ml(Pmx)) 50 ml @ 100 mls/hr Q24H IVPB ; Start 07/05/17 at 21:00 Potassium Chloride (Potassium Chloride Pwd/Soln) 20 meq ONCE GTB Last administered on 07/05/17t 16:22; Admin Dose 20 MEQ; Start 07/05/17 at 16:30; Stop 07/05/17 at 17:00 GEOVANY IBARRA Jul 05, 2017 17:00
[2017-07-05] MEDS: INSULIN GLARGINE [LANtus] 3 ML PEN SC SCH (21:11)
[2017-07-06 02:23] VITALS: BP 154/73; RESP 18
[2017-07-06] MEDS: DEXTROSE 5%-0.45% NACL 1,000 ML IV SCH (05:01)
[2017-07-06] MEDS: Insulin NOVOLOG SS MILD Algorithm (NPO/TPN/ENTERAL FEEDS) SC SCH ×4 (06:00→17:14)
[2017-07-06 06:26] LABS: BASOPHIL # 0.1 10^3/ul (0.0-0.1); BASOPHILS % 0.8 % (0.0-2.0); EOSINOPHILS # 0.7 10^3/ul (0.0-0.5); EOSINOPHILS % 6.1 % (0.0-7.0); HEMATOCRIT 33.1 % (42.0-52.0); HEMOGLOBIN 10.5 g/dl (14.0-18.0); LYMPHOCYTES # 1.8 10^3/ul (0.8-2.9); LYMPHOCYTES % 16.6 % (15.0-51.0); MEAN CORPUSCULAR HEMOGLOBIN 29.7 pg (29.0-33.0); MEAN CORPUSCULAR HGB CONC 31.7 g/dl (32.0-37.0); MEAN CORPUSCULAR VOLUME 93.8 fl (82.0-101.0); MEAN PLATELET VOLUME 10.2 fl (7.4-10.4); MONOCYTE # 0.7 10^3/ul (0.3-0.9); MONOCYTES % 6.7 % (0.0-11.0); NEUTROPHIL # 7.6 10^3/ul (1.6-7.5); NEUTROPHILS % 69.1 % (39.0-77.0); PLATELET COUNT 502 10^3/UL (140-415); RED BLOOD COUNT 3.53 10^6/ul (4.70-6.10); RED CELL DISTRIBUTION WIDTH 14.6 % (11.5-14.5)
[2017-07-06 07:06] LABS: CALCIUM 8.7 mg/dl (8.4-10.2); CREATININE 4.09 mg/dl (0.61-1.24); POTASSIUM 3.8 mmol/L (3.5-5.1)
[2017-07-06 07:59] VITALS: BP 139/69; RESP 16
[2017-07-06] MEDS: ZINC SULFATE 220 MG CAP GTB SCH (08:02)
[2017-07-06] MEDS: AMLODIPINE 5 MG TAB GTB SCH ×2 (08:02→20:26)
[2017-07-06] MEDS: FAMOTIDINE 20 MG INJ IV SCH (08:02)
[2017-07-06] MEDS: ASCORBIC ACID 500 MG TAB GTB SCH (08:02)
[2017-07-06] MEDS: LANSOPRAZOLE 30 MG CAP GTB SCH ×2 (08:02→20:26)
[2017-07-06] MEDS: BALSAM PERU/CASTOR OIL 60 GM TUBE TOP SCH ×2 (08:03→20:27)
[2017-07-06] MEDS: BISACODYL 10 MG SUPP PR SCH (11:30)
--- NOTE | 2017-07-06 13:54 | CONS ---
DATE OF ADMISSION: 06/30/2017 DATE OF CONSULTATION: 07/06/2017 TYPE OF CONSULTATION: Infectious Disease. REASON FOR CONSULTATION: Antibiotic management. HISTORY OF PRESENT ILLNESS: Daquan Duran is a 72-year-old male who presented to the em ergency room with leukocytosis and possible cholecystitis. His past problems include: 1. History of CVA. 2. End-stage renal disease on hemodialysis. 3. Adult-onset diabetes mellitus. 4. Diastolic heart failure. 5. Paroxysmal atrial fibrillation. 6. Hypertension. 7. Dyslipidemia. 8. Urinary retention requiring Flores catheter. 9. Dysphagia, status post G-tube placement. The patient recently had a urinary tract infection at [facility]. He also has acute on chr onic renal disease and he was started on hemodialysis. He developed a cough while in the nursing ho nv with congestion and was thought to have upper respiratory tract infection. Chest x-ray was unrem arkable. He was started on Levaquin as an outpatient. His white count, however, on admission was 2 1,000. Chest x-ray: No acute cardiopulmonary disease. The patient was thought to have urinary tract infec tion. UA was ordered and was positive for 3+ leukocyte esterase, more than 182 white cells. He als o had vague upper abdominal symptoms, a CT scan of the abdomen and ultrasound of the abdomen were do ne. The patient had gallstones and some pericholecystic fluid and was diagnosed with possible acute cholecystitis. He also had bibasilar infiltrates on CT scan and therefore was thought to have pneu monia. HOSPITAL COURSE: The patient had a urine culture that was positive for E. coli, sensitive to ampici llin and also to cefazolin. His chest x-ray shows a dialysis catheter tunneled right internal jugul ar vein dialysis catheter tip in the right atrium. Lungs were clear. The CT scan of the abdomen an d pelvis is as previously noted with patchy bibasilar airspace disease. HIDA showed no evidence to suggest common bile or cystic duct obstruction. Blood cultures were negative. Currently, patient w as thought to have possible acute cholecystitis. Dr. Bojorquez is following, but the HIDA scan is aga inst that. He has E. coli urinary tract infection, on meropenem. PAST MEDICAL HISTORY: Operations as outlined. FAMILY HISTORY: Noncontributory. SOCIAL HISTORY: No history of smoking, drinking or abuse of drugs. ALLERGIES: NONE TO PENICILLIN, SULFA OR FOODS. MEDICATIONS: Per chart. REVIEW OF SYSTEMS: As per HPI. PHYSICAL EXAMINATION: GENERAL: The patient is an elderly ill-appearing male with multiple problems. He has a dialysis ca theter in place. VITAL SIGNS: Stable. He is afebrile. SKIN: Without generalized rash. HEENT: Within normal limits. NECK: Supple. LYMPH NODES: None palpable. CHEST: Decreased breath sounds at the bases. HEART: Without murmur or gallop. ABDOMEN: Soft, nontender. He has a G-tube in place. He has mild upper abdominal tenderness. EXTREMITIES: Without cyanosis, clubbing, or edema. RECTAL AND GENITAL: Deferred. NEUROLOGIC: The patient has generalized weakness. IMPRESSION AND PLAN: Currently, the patient has Escherichia coli urinary tract infection and also e vidence of pneumonitis. He is currently on meropenem. He could be on cefepime, but meropenem would cover both the pneumonia which would be healthcare-associated, as well as a urinary tract infection . I will dictate my findings to Dr. Javed and to the consultants. Dictated By: NUBIA PUGH MD, JD/INOCENCIO Conf#: [id number] DID#: [id number] CC: KE JAVED MD;*End*
[2017-07-06 14:12] VITALS: BP 122/80; RESP 18
--- NOTE | 2017-07-06 16:59 | CONS ---
Date/Time of Note Date/Time of Note DATE: 07/06/17 TIME: 16:58 Assessment/Plan Assessment/Plan Chief Complaint/Hosp Course Chief Complaint/Hosp Course - #Possible acute cholecystitis, continue abx. .No surgery per Dr Bojorquez - #E. coli UTI, improving leukocytosis - # ESRD on HD Acute kidney injury on chronic kidney disease. Continue hemodialysis per renal. Dr. Cheema is following in nephrology consultation. - #History of cerebrovascular accident - #Diabetes mellitus. Continue Lantus and NovoLog. - #- Paroxysmal atrial fibrillation, currently in sinus rhythm. - # Dysphagia with G tube Plan - HD tmw - iv per I.D - labs am Problems: Consultation Date/Type/Reason Admit Date/Time Jun 30, 2017 at 19:01 Initial Consult Date 07/01/17 Type of Consultation: renal Referring Provider: KE JAVED MD 24 HR Interval Summary Free Text/Dictation No acute events hd yesterday Exam/Review of Systems Vital Signs Vitals Vital Signs Date Time Temp Pulse Resp B/P Pulse Ox O2 Delivery O2 Flow Rate FiO2 07/06/17 14:12 97.8 72 18 122/80 98 Intake and Output 07/05/17 07/05/17 07/06/17 14:59 22:59 06:59 Intake Total 750 ml 580 ml 650 ml Output Total 2500 ml 150 ml 100 ml Balance -1750 ml 430 ml 550 ml Exam Constitutional: alert (name) Neck: supple Respiratory: clear to auscultation Cardiovascular: regular rate and rhythm Gastrointestinal: other (g tube), soft, surgical scars permacath Results Result Diagram: 07/06/17 0600 07/06/17 0600 Results 24 hrs Laboratory Tests Test 07/05/17 17:15 07/05/17 21:08 07/06/17 00:19 07/06/17 06:00 Bedside Glucose 87 100 93 White Blood Count 11.0 H Red Blood Count 3.53 L Hemoglobin 10.5 L Hematocrit 33.1 L Mean Corpuscular Volume 93.8 Mean Corpuscular Hemoglobin 29.7 Mean Corpuscular Hemoglobin Concent 31.7 L Red Cell Distribution Width 14.6 H Platelet Count 502 H Mean Platelet Volume 10.2 Neutrophils % 69.1 Lymphocytes % 16.6 Monocytes % 6.7 Eosinophils % 6.1 Basophils % 0.8 Nucleated Red Blood Cells % 0.0 Neutrophils # 7.6 H Lymphocytes # 1.8 Monocytes # 0.7 Eosinophils # 0.7 H Basophils # 0.1 Nucleated Red Blood Cells # 0.0 Sodium Level 141 Potassium Level 3.8 Chloride Level 105 Carbon Dioxide Level 25 Anion Gap 15 Blood Urea Nitrogen 25 #H Creatinine 4.09 #H Glucose Level 84 Calcium Level 8.7 Test 07/06/17 06:05 07/06/17 11:54 Bedside Glucose 83 92 Medications Medications Current Medications Dextrose/Sodium Chloride (D5-1/2ns) 1,000 ml @ 50 mls/hr Q20H IV Last administered on 07/06/17 05:01; Admin Dose 50 MLS/HR; Start 06/30/17 at 22:00 Miscellaneous Information [facility] TO DOSE ONCE XX ; Start 06/30/17 at 22: 00 Acetaminophen (Ofirmev 1000mg/ 100ml Iv) 100 ml @ 400 mls/hr Q6H PRN IVPB PAIN /FEVER Last administered on 06/30/17 23:53; Admin Dose 400 MLS/HR; Start at 22:00 Morphine Sulfate (morphine) 2 mg Q4H PRN IV PAIN; Start 06/30/17 at 22:00 Ondansetron HCl (Zofran Inj) 4 mg Q6H PRN IV NAUSEA AND/OR VOMITING Last administered on 07/05/17 09:31; Admin Dose 4 MG; Start 06/30/17 at 22:00 Hydralazine HCl (Apresoline) 10 mg Q6 PRN IV ELEVATED SYSTOLIC BP Last administered on 07/04/17 20:47; Admin Dose 10 MG; Start 06/30/17 at 22:00 Insulin Aspart (Novolog Insulin Pen) (Adult SC Insulin - Mild Algorithm)... Q6 SC Last administered on 07/03/17 12:01; Admin Dose 1 UNIT; Start 07/01/17 at 00:00 Famotidine (Pepcid Iv) 10 mg DAILY IV Last administered on 07/06/17 08:02; Admin Dose 10 MG; Start 07/02/17 at 09:00 Cyclobenzaprine HCl (Flexeril) 10 mg BID PRN GTB Hiccups Last administered on 07/03/17 08:40; Admin Dose 10 MG; Start 07/01/17 at 22:00 Acetaminophen (Tylenol Liquid) 650 mg DAILY PRN GTB PAIN AND OR ELEVATED TEMP; Start 07/04/17 at 10:30 Amlodipine Besylate (Norvasc) 5 mg BID GTB Last administered on 07/06/17 08: 02; Admin Dose 5 MG; Start 07/04/17 at 21:00 Ascorbic Acid (Vitamin C) 500 mg DAILY GTB Last administered on 07/06/17 08: 02; Admin Dose 500 MG; Start 07/05/17 at 09:00 Bisacodyl (Dulcolax Supp) 10 mg Q24H [place] Last administered on 07/06/17 11:30; Admin Dose 10 MG; Start 07/04/17 at 10:30 Clonidine (Catapres) 0.2 mg DAILY GTB Last administered on 07/06/17 08:03; Admin Dose 0.2 MG; Start 07/05/17 at 09:00 Diphenhydramine HCl (Benadryl) 25 mg Q6H PRN GTB ITCHING; Start 07/04/17 at 10 :30 Hydralazine HCl (Apresoline) 50 mg Q6H PRN PO ELEVATED BLOOD PRESSURE; Start 07/04/17 at 10:30 Insulin Glargine (Lantus) 18 unit QHS SC Last administered on 07/05/17 21:11 ; Admin Dose 18 UNIT; Start 07/04/17 at 21:00 Lansoprazole (Prevacid) 30 mg BID GTB Last administered on 07/06/17 08:02; Admin Dose 30 MG; Start 07/04/17 at 21:00 Nitroglycerin (Nitroglycerin (Sl Tab) 0.4 Mg) 0.4 tab [id number] PRN SL CHEST PAIN; Start 07/04/17 at 10:30 Tamsulosin HCl (Flomax) 0.4 mg DAILY PO ; Start 07/05/17 at 09:00 Zinc Sulfate (Zinc Sulfate) 220 mg DAILY GTB Last administered on 07/06/17 08 :02; Admin Dose 220 MG; Start 07/05/17 at 09:00 Docusate Sodium (Colace Liquid Cup) 200 mg QHS PRN GTB CONSTIPATION; Start 08/08 at 10:37 Miscellaneous Information 1 ea NOTE XX ; Start 07/04/17 at 11:00 Glucose (Glutose) 15 gm Q15M PRN PO DECREASED GLUCOSE; Start 07/04/17 at 11:00 Glucose (Glutose) 22.5 gm Q15M PRN PO DECREASED GLUCOSE; Start 07/04/17 at 11: 00 Dextrose (D50w Syringe) 25 ml Q15M PRN IV DECREASED GLUCOSE; Start 07/04/17 at 11:00 Dextrose (D50w Syringe) 50 ml Q15M PRN IV DECREASED GLUCOSE; Start 07/04/17 at 11:00 Glucagon (Glucagen) 1 mg Q15M PRN IM DECREASED GLUCOSE; Start 07/04/17 at 11: 00 Glucose 15 gm 15 gm Q15M PRN BUCCAL DECREASED GLUCOSE; Start 07/04/17 at 11:00 Meropenem/Sodium Chloride (Merrem 500mg/50 ml(Pmx)) 50 ml @ 100 mls/hr Q24H IVPB Last administered on 07/05/17t 21:02; Admin Dose 100 MLS/HR; Start 07/05 at 21:00 PORTIA OLIVER MD Jul 06, 2017 16:59
--- NOTE | 2017-07-06 17:58 | PN ---
Date/Time of Note Date/Time of Note DATE: 07/06/17 TIME: 17:57 Assessment/Plan Lines/Catheters IV Catheter Type (from [facility]): permacath Flores in Place (from [facility]): Yes Assessment/Plan Chief Complaint/Hosp Course 1. Cholelithiasis with Negative HIDA (no acute cholecystitis) -no lap avery: family and patient prefer to manage conservatively at this point -diet as tolerated -dc planning per primary team 2. UTI & ? PNA -abx per sensitivity -frequent bladder emptying/cath care -pulmonary toilette 3. Leukocytosis: likely 2/2 #2, ? 1, ? other, no fever. Improving. -as above -abx -supportive -trend 4. Anemia: no acute bleed noted -monitor -transfuse as needed 5. ESRD on HD -HD per renal -avoid/limit nephrotoxic meds -judicious fluids -renally dose meds 6. Electrolyte imbalance: -optimize lytes 7. Elevated LFT: -as above 8. Hypoalbuminemia: multifactorial -optimize nutrition as able -management of infection/inflammation Thank you, Problems: Subjective 24 Hr Interval Summary Nonverbal indicators of pain not present. Appears comfortable. No fevers, sob , congested cough, cp, hernandez, dizziness, n/v/d/dysuria. Exam/Review of Systems Vital Signs Vitals Vital Signs Date Time Temp Pulse Resp B/P Pulse Ox O2 Delivery O2 Flow Rate FiO2 07/06/17 14:12 97.8 72 18 122/80 98 Intake and Output 07/05/17 07/05/17 07/06/17 14:59 22:59 06:59 Intake Total 750 ml 580 ml 650 ml Output Total 2500 ml 150 ml 100 ml Balance -1750 ml 430 ml 550 ml Exam Free Text/Dictation Constitutional: alert, oriented, somnolent Head: atraumatic, normocephalic Eyes: nl lids, nl sclera ENMT: mucosa pink and moist, nl nasal mucosa & septum Neck: non-tender, supple Respiratory: normal air movement, No labored breathing Cardiovascular: regular rate and rhythm Gastrointestinal: min-tender right upper quad, other (peg), soft Genitourinary - Male: nl penis, nl scrotum Musculoskeletal: nl extremities to inspection Extremities: normal pulses Neurological: No nl mental status, No nl speech Skin: nl turgor Results Result Diagram: 07/06/17 0600 07/06/17 0600 LIZ PARKER MD Jul 06, 2017 17:58
--- NOTE | 2017-07-06 18:00 | PN ---
Date/Time of Note Date/Time of Note DATE: 07/06/17 TIME: 17:59 Assessment/Plan VTE Prophylaxis VTE Prophylaxis Intervention: SCD's Lines/Catheters IV C[facility]ter Type (from [facility]): permacath Urinary Cath still in place: Yes Reason Cath still needed: urinary retention Assessment/Plan Chief Complaint/Hosp Course Patient tolerates G-tube feeding well, remains afebrile. Assessment/Plan - Possible acute cholecystitis, continue abx. Dr. Bojorquez is following in general surgery consultation. Family prefer to manage conservatively versus surgery. - E. coli UTI, continue meropenem. - Acute kidney injury on chronic kidney disease. Continue hemodialysis per renal. Dr. Cheema is following in nephrology consultation. - History of cerebrovascular accident - Diabetes mellitus. Continue Lantus and NovoLog. - Diastolic congestive heart failure. Continue to monitor intake and output. - Paroxysmal atrial fibrillation, currently in sinus rhythm. - Hypertension. - Hyperlipidemia. - Dysphagia with G-tube. Further recommendations based on clinical course. Plan of care discussed with Dr. Patel Problems: Exam/Review of Systems Vital Signs Vitals Vital Signs Date Time Temp Pulse Resp B/P Pulse Ox O2 Delivery O2 Flow Rate FiO2 07/06/17 14:12 97.8 72 18 122/80 98 Intake and Output 07/05/17 07/05/17 07/06/17 14:59 22:59 06:59 Intake Total 750 ml 580 ml 650 ml Output Total 2500 ml 150 ml 100 ml Balance -1750 ml 430 ml 550 ml Exam Constitutional: alert Neck: supple Respiratory: normal air movement Cardiovascular: nl pulses Gastrointestinal: other (G-tube), soft, tender Musculoskeletal: muscle weakness Extremities: normal pulses Results Result Diagram: 07/06/17 0600 07/06/17 0600 Results 24 hrs Laboratory Tests Test 07/05/17 21:08 07/06/17 00:19 07/06/17 06:00 07/06/17 06:05 Bedside Glucose 100 93 83 White Blood Count 11.0 H Red Blood Count 3.53 L Hemoglobin 10.5 L Hematocrit 33.1 L Mean Corpuscular Volume 93.8 Mean Corpuscular Hemoglobin 29.7 Mean Corpuscular Hemoglobin Concent 31.7 L Red Cell Distribution Width 14.6 H Platelet Count 502 H Mean Platelet Volume 10.2 Neutrophils % 69.1 Lymphocytes % 16.6 Monocytes % 6.7 Eosinophils % 6.1 Basophils % 0.8 Nucleated Red Blood Cells % 0.0 Neutrophils # 7.6 H Lymphocytes # 1.8 Monocytes # 0.7 Eosinophils # 0.7 H Basophils # 0.1 Nucleated Red Blood Cells # 0.0 Sodium Level 141 Potassium Level 3.8 Chloride Level 105 Carbon Dioxide Level 25 Anion Gap 15 Blood Urea Nitrogen 25 #H Creatinine 4.09 #H Glucose Level 84 Calcium Level 8.7 Test 07/06/17 11:54 07/06/17 17:13 Bedside Glucose 92 105 Medications Medications Current Medications Dextrose/Sodium Chloride (D5-1/2ns) 1,000 ml @ 50 mls/hr Q20H IV Last administered on 07/06/17 05:01; Admin Dose 50 MLS/HR; Start 06/30/17 at 22:00 Miscellaneous Information [facility] TO DOSE ONCE XX ; Start 06/30/17 at 22: 00 Acetaminophen (Ofirmev 1000mg/ 100ml Iv) 100 ml @ 400 mls/hr Q6H PRN IVPB PAIN /FEVER Last administered on 06/30/17 23:53; Admin Dose 400 MLS/HR; Start at 22:00 Morphine Sulfate (morphine) 2 mg Q4H PRN IV PAIN; Start 06/30/17 at 22:00 Ondansetron HCl (Zofran Inj) 4 mg Q6H PRN IV NAUSEA AND/OR VOMITING Last administered on 07/05/17 09:31; Admin Dose 4 MG; Start 06/30/17 at 22:00 Hydralazine HCl (Apresoline) 10 mg Q6 PRN IV ELEVATED SYSTOLIC BP Last administered on 07/04/17 20:47; Admin Dose 10 MG; Start 06/30/17 at 22:00 Insulin Aspart (Novolog Insulin Pen) (Adult SC Insulin - Mild Algorithm)... Q6 SC Last administered on 07/03/17 12:01; Admin Dose 1 UNIT; Start 07/01/17 at 00:00 Famotidine (Pepcid Iv) 10 mg DAILY IV Last administered on 07/06/17 08:02; Admin Dose 10 MG; Start 07/02/17 at 09:00 Cyclobenzaprine HCl (Flexeril) 10 mg BID PRN GTB Hiccups Last administered on 07/03/17 08:40; Admin Dose 10 MG; Start 07/01/17 at 22:00 Acetaminophen (Tylenol Liquid) 650 mg DAILY PRN GTB PAIN AND OR ELEVATED TEMP; Start 07/04/17 at 10:30 Amlodipine Besylate (Norvasc) 5 mg BID GTB Last administered on 07/06/17 08: 02; Admin Dose 5 MG; Start 07/04/17 at 21:00 Ascorbic Acid (Vitamin C) 500 mg DAILY GTB Last administered on 07/06/17 08: 02; Admin Dose 500 MG; Start 07/05/17 at 09:00 Bisacodyl (Dulcolax Supp) 10 mg Q24H [place] Last administered on 07/06/17 11:30; Admin Dose 10 MG; Start 07/04/17 at 10:30 Clonidine (Catapres) 0.2 mg DAILY GTB Last administered on 07/06/17 08:03; Admin Dose 0.2 MG; Start 07/05/17 at 09:00 Diphenhydramine HCl (Benadryl) 25 mg Q6H PRN GTB ITCHING; Start 07/04/17 at 10 :30 Hydralazine HCl (Apresoline) 50 mg Q6H PRN PO ELEVATED BLOOD PRESSURE; Start 07/04/17 at 10:30 Insulin Glargine (Lantus) 18 unit QHS SC Last administered on 07/05/17 21:11 ; Admin Dose 18 UNIT; Start 07/04/17 at 21:00 Lansoprazole (Prevacid) 30 mg BID GTB Last administered on 07/06/17 08:02; Admin Dose 30 MG; Start 07/04/17 at 21:00 Nitroglycerin (Nitroglycerin (Sl Tab) 0.4 Mg) 0.4 tab [id number] PRN SL CHEST PAIN; Start 07/04/17 at 10:30 Tamsulosin HCl (Flomax) 0.4 mg DAILY PO ; Start 07/05/17 at 09:00 Zinc Sulfate (Zinc Sulfate) 220 mg DAILY GTB Last administered on 07/06/17 08 :02; Admin Dose 220 MG; Start 07/05/17 at 09:00 Docusate Sodium (Colace Liquid Cup) 200 mg QHS PRN GTB CONSTIPATION; Start 08/08 at 10:37 Miscellaneous Information 1 ea NOTE XX ; Start 07/04/17 at 11:00 Glucose (Glutose) 15 gm Q15M PRN PO DECREASED GLUCOSE; Start 07/04/17 at 11:00 Glucose (Glutose) 22.5 gm Q15M PRN PO DECREASED GLUCOSE; Start 07/04/17 at 11: 00 Dextrose (D50w Syringe) 25 ml Q15M PRN IV DECREASED GLUCOSE; Start 07/04/17 at 11:00 Dextrose (D50w Syringe) 50 ml Q15M PRN IV DECREASED GLUCOSE; Start 07/04/17 at 11:00 Glucagon (Glucagen) 1 mg Q15M PRN IM DECREASED GLUCOSE; Start 07/04/17 at 11: 00 Glucose 15 gm 15 gm Q15M PRN BUCCAL DECREASED GLUCOSE; Start 07/04/17 at 11:00 Meropenem/Sodium Chloride (Merrem 500mg/50 ml(Pmx)) 50 ml @ 100 mls/hr Q24H IVPB Last administered on 07/05/17t 21:02; Admin Dose 100 MLS/HR; Start 07/05 at 21:00 GEOVANY IBARRA Jul 06, 2017 18:00
[2017-07-06 20:10] VITALS: BP 140/63; RESP 18
[2017-07-06] MEDS: MEROPENEM 500MG/50 ML (PMX) 50 ML IVPB SCH (20:26)
[2017-07-06] MEDS: INSULIN GLARGINE [LANtus] 3 ML PEN SC SCH (20:29)
[2017-07-07] VITALS (12 sets, daily range): BP systolic 100–148; BP diastolic 55–69; PULSE 81–95; RESP 18–20
[2017-07-07] MEDS: DEXTROSE 5%-0.45% NACL 1,000 ML IV SCH ×2 (00:54→20:24)
[2017-07-07] MEDS: Insulin NOVOLOG SS MILD Algorithm (NPO/TPN/ENTERAL FEEDS) SC SCH ×5 (05:30→23:32)
[2017-07-07] MEDS: DIPHENHYDRAMINE 25 MG CAP GTB PRN ×2 (05:33→23:31)
[2017-07-07 06:24] LABS: BASOPHIL # 0.1 10^3/ul (0.0-0.1); EOSINOPHILS # 0.8 10^3/ul (0.0-0.5); EOSINOPHILS % 7.2 % (0.0-7.0); HEMATOCRIT 39.8 % (42.0-52.0); HEMOGLOBIN 13.2 g/dl (14.0-18.0); LYMPHOCYTES # 2.1 10^3/ul (0.8-2.9); LYMPHOCYTES % 19.6 % (15.0-51.0); MEAN CORPUSCULAR HEMOGLOBIN 29.7 pg (29.0-33.0); MEAN CORPUSCULAR HGB CONC 33.2 g/dl (32.0-37.0); MEAN CORPUSCULAR VOLUME 89.4 fl (82.0-101.0); MEAN PLATELET VOLUME 10.6 fl (7.4-10.4); MONOCYTE # 0.6 10^3/ul (0.3-0.9); MONOCYTES % 5.4 % (0.0-11.0); PLATELET COUNT 465 10^3/UL (140-415); RED BLOOD COUNT 4.45 10^6/ul (4.70-6.10); RED CELL DISTRIBUTION WIDTH 14.1 % (11.5-14.5); WHITE BLOOD COUNT 10.5 10^3/ul (4.8-10.8)
[2017-07-07 06:48] LABS: CALCIUM 8.6 mg/dl (8.4-10.2); CREATININE 4.96 mg/dl (0.61-1.24); POTASSIUM 3.6 mmol/L (3.5-5.1)
[2017-07-07] MEDS: ZINC SULFATE 220 MG CAP GTB SCH (08:45)
[2017-07-07] MEDS: LANSOPRAZOLE 30 MG CAP GTB SCH ×2 (08:45→20:20)
[2017-07-07] MEDS: FAMOTIDINE 20 MG INJ IV SCH (08:45)
[2017-07-07] MEDS: AMLODIPINE 5 MG TAB GTB SCH ×2 (08:46→20:20)
[2017-07-07] MEDS: ASCORBIC ACID 500 MG TAB GTB SCH (08:46)
[2017-07-07] MEDS: BALSAM PERU/CASTOR OIL 60 GM TUBE TOP SCH ×2 (08:48→20:24)
--- NOTE | 2017-07-07 09:23 | CONS ---
Date/Time of Note Date/Time of Note DATE: 07/07/17 TIME: 09:23 Assessment/Plan Assessment/Plan Chief Complaint/Hosp Course Chief Complaint/Hosp Course - #Possible acute cholecystitis, continue abx. .No surgery per Dr Bojorquez - #E. coli UTI, improving leukocytosis - # ESRD on HD Acute kidney injury on chronic kidney disease. Continue hemodialysis per renal. Dr. Cheema is following in nephrology consultation. - #History of cerebrovascular accident - #Diabetes mellitus. Continue Lantus and NovoLog. - #- Paroxysmal atrial fibrillation, currently in sinus rhythm. - # Dysphagia with G tube Plan - HD today - iv per I.D - labs am Problems: Consultation Date/Type/Reason Admit Date/Time Jun 30, 2017 at 19:01 Initial Consult Date 07/01/17 Type of Consultation: renal Referring Provider: KE JAVED MD 24 HR Interval Summary Free Text/Dictation No new complains Exam/Review of Systems Vital Signs Vitals Vital Signs Date Time Temp Pulse Resp B/P Pulse Ox O2 Delivery O2 Flow Rate FiO2 07/07/17 08:00 97.5 91 18 129/65 100 Intake and Output 07/06/17 07/06/17 07/07/17 15:00 23:00 07:00 Intake Total 830 ml 1050 ml Output Total 400 ml 300 ml Balance 430 ml 750 ml Exam Constitutional: alert (name) Neck: supple Respiratory: clear to auscultation Cardiovascular: regular rate and rhythm Gastrointestinal: other (g tube), soft, surgical scars permacath Results Result Diagram: 07/07/17 0536 07/07/17 0536 Results 24 hrs Laboratory Tests Test 07/06/17 11:54 07/06/17 17:13 07/06/17 20:28 07/07/17 00:50 Bedside Glucose 92 105 107 93 Test 07/07/17 05:12 07/07/17 05:36 Bedside Glucose 90 White Blood Count 10.5 Red Blood Count 4.45 #L Hemoglobin 13.2 #L Hematocrit 39.8 #L Mean Corpuscular Volume 89.4 Mean Corpuscular Hemoglobin 29.7 Mean Corpuscular Hemoglobin Concent 33.2 Red Cell Distribution Width 14.1 Platelet Count 465 H Mean Platelet Volume 10.6 H Neutrophils % 66.0 Lymphocytes % 19.6 Monocytes % 5.4 Eosinophils % 7.2 H Basophils % 1.0 Nucleated Red Blood Cells % 0.0 Neutrophils # 7.0 Lymphocytes # 2.1 Monocytes # 0.6 Eosinophils # 0.8 H Basophils # 0.1 Nucleated Red Blood Cells # 0.0 Sodium Level 140 Potassium Level 3.6 Chloride Level 103 Carbon Dioxide Level 26 Anion Gap 15 Blood Urea Nitrogen 34 H Creatinine 4.96 H Glucose Level 86 Calcium Level 8.6 Medications Medications Current Medications Dextrose/Sodium Chloride (D5-1/2ns) 1,000 ml @ 50 mls/hr Q20H IV Last administered on 07/07/17 00:54; Admin Dose 50 MLS/HR; Start 06/30/17 at 22:00 Miscellaneous Information [facility] TO DOSE ONCE XX ; Start 06/30/17 at 22: 00 Acetaminophen (Ofirmev 1000mg/ 100ml Iv) 100 ml @ 400 mls/hr Q6H PRN IVPB PAIN /FEVER Last administered on 06/30/17 23:53; Admin Dose 400 MLS/HR; Start at 22:00 Morphine Sulfate (morphine) 2 mg Q4H PRN IV PAIN; Start 06/30/17 at 22:00 Ondansetron HCl (Zofran Inj) 4 mg Q6H PRN IV NAUSEA AND/OR VOMITING Last administered on 07/05/17 09:31; Admin Dose 4 MG; Start 06/30/17 at 22:00 Hydralazine HCl (Apresoline) 10 mg Q6 PRN IV ELEVATED SYSTOLIC BP Last administered on 07/04/17 20:47; Admin Dose 10 MG; Start 06/30/17 at 22:00 Insulin Aspart (Novolog Insulin Pen) (Adult SC Insulin - Mild Algorithm)... Q6 SC Last administered on 07/03/17 12:01; Admin Dose 1 UNIT; Start 07/01/17 at 00:00 Famotidine (Pepcid Iv) 10 mg DAILY IV Last administered on 07/07/17 08:45; Admin Dose 10 MG; Start 07/02/17 at 09:00 Cyclobenzaprine HCl (Flexeril) 10 mg BID PRN GTB Hiccups Last administered on 07/03/17 08:40; Admin Dose 10 MG; Start 07/01/17 at 22:00 Acetaminophen (Tylenol Liquid) 650 mg DAILY PRN GTB PAIN AND OR ELEVATED TEMP; Start 07/04/17 at 10:30 Amlodipine Besylate (Norvasc) 5 mg BID GTB Last administered on 07/07/17 08: 46; Admin Dose 5 MG; Start 07/04/17 at 21:00 Ascorbic Acid (Vitamin C) 500 mg DAILY GTB Last administered on 07/07/17 08: 46; Admin Dose 500 MG; Start 07/05/17 at 09:00 Bisacodyl (Dulcolax Supp) 10 mg Q24H [place] Last administered on 07/06/17 11:30; Admin Dose 10 MG; Start 07/04/17 at 10:30 Clonidine (Catapres) 0.2 mg DAILY GTB Last administered on 07/07/17 08:46; Admin Dose 0.2 MG; Start 07/05/17 at 09:00 Diphenhydramine HCl (Benadryl) 25 mg Q6H PRN GTB ITCHING Last administered on 07/07/17 05:33; Admin Dose 25 MG; Start 07/04/17 at 10:30 Hydralazine HCl (Apresoline) 50 mg Q6H PRN PO ELEVATED BLOOD PRESSURE; Start 07/04/17 at 10:30 Insulin Glargine (Lantus) 18 unit QHS SC Last administered on 07/06/17 20:29 ; Admin Dose 18 UNIT; Start 07/04/17 at 21:00 Lansoprazole (Prevacid) 30 mg BID GTB Last administered on 07/07/17 08:45; Admin Dose 30 MG; Start 07/04/17 at 21:00 Nitroglycerin (Nitroglycerin (Sl Tab) 0.4 Mg) 0.4 tab [id number] PRN SL CHEST PAIN; Start 07/04/17 at 10:30 Tamsulosin HCl (Flomax) 0.4 mg DAILY PO ; Start 07/05/17 at 09:00 Zinc Sulfate (Zinc Sulfate) 220 mg DAILY GTB Last administered on 07/07/17 08 :45; Admin Dose 220 MG; Start 07/05/17 at 09:00 Docusate Sodium (Colace Liquid Cup) 200 mg QHS PRN GTB CONSTIPATION; Start 08/08 at 10:37 Miscellaneous Information 1 ea NOTE XX ; Start 07/04/17 at 11:00 Glucose (Glutose) 15 gm Q15M PRN PO DECREASED GLUCOSE; Start 07/04/17 at 11:00 Glucose (Glutose) 22.5 gm Q15M PRN PO DECREASED GLUCOSE; Start 07/04/17 at 11: 00 Dextrose (D50w Syringe) 25 ml Q15M PRN IV DECREASED GLUCOSE; Start 07/04/17 at 11:00 Dextrose (D50w Syringe) 50 ml Q15M PRN IV DECREASED GLUCOSE; Start 07/04/17 at 11:00 Glucagon (Glucagen) 1 mg Q15M PRN IM DECREASED GLUCOSE; Start 07/04/17 at 11: 00 Glucose 15 gm 15 gm Q15M PRN BUCCAL DECREASED GLUCOSE; Start 07/04/17 at 11:00 Meropenem/Sodium Chloride (Merrem 500mg/50 ml(Pmx)) 50 ml @ 100 mls/hr Q24H IVPB Last administered on 07/06/17t 20:26; Admin Dose 100 MLS/HR; Start 07/05 at 21:00 PORTIA OLIVER MD Jul 07, 2017 09:23
--- NOTE | 2017-07-07 10:34 | PN ---
Date/Time of Note Date/Time of Note DATE: 07/07/17 TIME: 10:29 Assessment/Plan Lines/Catheters IV Catheter Type (from Nrs): permqacath Flores in Place (from Nrs): Yes Assessment/Plan Chief Complaint/Hosp Course 1. Cholelithiasis with Negative HIDA (no acute cholecystitis) -no lap avery: previously discussed with family and patient-wanting to manage conservatively at this point -ivf -pain management 2. UTI: -abx per sensitivity -frequent bladder emptying/cath care 3. Leukocytosis: likely 2/2 #2, ? 1, ? other, normalized -as above -monitor 4. Anemia: no acute bleed noted -monitor -transfuse as needed 5. ESRD on HD -HD per renal -avoid/limit nephrotoxic meds -judicious fluids -renally dose meds 6. Electrolyte imbalance: -optimize lytes 7. Elevated LFT: -as above 8. Hypoalbuminemia: multifactorial -optimize nutrition as able -management of infection/inflammation Thank you. Patient seen and examined in collaboration with Dr. Abraham Bojorquez. Problems: Subjective 24 Hr Interval Summary Receiving dialysis. Comfortable. No abdominal pain/tenderness. Tolerating feeding. +bowel function. No fevers, chills, sob, congested cough, cp, palpitations, hernandez, dizziness, n/v/d/dysuria. Exam/Review of Systems Vital Signs Vitals Vital Signs Date Time Temp Pulse Resp B/P Pulse Ox O2 Delivery O2 Flow Rate FiO2 07/07/17 08:00 97.5 91 18 129/65 100 Intake and Output 07/06/17 07/06/17 07/07/17 14:59 22:59 06:59 Intake Total 830 ml 1050 ml Output Total 400 ml 300 ml Balance 430 ml 750 ml Exam Free Text/Dictation Constitutional: alert, oriented, responsive Head: atraumatic, normocephalic Eyes: nl lids, nl sclera ENMT: mucosa pink and moist, nl nasal mucosa & septum Neck: non-tender, supple Respiratory: normal air movement, No labored breathing Cardiovascular: regular rate and rhythm Gastrointestinal: non-tender, other (peg), soft Genitourinary - Male: nl penis, nl scrotum Musculoskeletal: nl extremities to inspection Extremities: normal pulses Neurological: No nl mental status, No nl speech Skin: nl turgor Results Result Diagram: 07/07/17 0536 07/07/17 0536 SUSSY [facility] Jul 07, 2017 10:34
[2017-07-07] MEDS: BISACODYL 10 MG SUPP PR SCH (12:10)
--- NOTE | 2017-07-07 14:03 | PN ---
DATE: 07/07/2017 SUBJECTIVE: No acute changes. The patient is in hemodialysis, lethargic, looks comfortable, no fev ers. WBC 10.5, no shift, no bands. INDWELLINGS: Right chest PermCath, PEG, Flores. MICROBIOLOGY: Urine culture on admission grew E. coli. Blood cultures have been negative. ANTIMICROBIALS: The patient is on IV Merrem. PHYSICAL EXAMINATION: GENERAL: This is a chronically ill-appearing, elderly man who is in no distress. HEENT: Head atraumatic, normocephalic. Sclerae anicteric. Buccal mucosa dry. NECK: Supple. CHEST: Rise symmetrical. Breath sounds diminished to bases. HEART: S1, S2. ABDOMEN: Soft, bowel tones present. EXTREMITIES: Without cyanosis. ASSESSMENT: 1. Resolving sepsis. 2. Healthcare-associated pneumonia, possibly aspiration. 3. Urinary tract infection. 4. End-stage renal disease. 5. Dysphagia. 6. Encephalopathy. 7. Diabetes. PLAN: The patient remains stable, overall improving on current antibiotics. Dictated By: KAYLA CASTREJON TRAFFIC SIGN SUPERVISOR for NUBIA VALLECILLO/INOCENCIO Conf#: [id number] DID#: [id number]
--- NOTE | 2017-07-07 16:09 | PN ---
Date/Time of Note Date/Time of Note DATE: 07/07/17 TIME: 16:07 Assessment/Plan VTE Prophylaxis VTE Prophylaxis Intervention: SCD's Lines/Catheters IV Catheter Type (from Nrs): permacath Urinary Cath still in place: Yes Reason Cath still needed: urinary retention Assessment/Plan Chief Complaint/Hosp Course Pt tolerates feeding without nausea. S/p HD today. Assessment/Plan - Possible acute cholecystitis, continue abx. Dr. Bojorquez is following in general surgery consultation. Family prefer to manage conservatively versus surgery. - E. coli UTI, continue meropenem. - Acute kidney injury on chronic kidney disease. Continue hemodialysis per renal. Dr. Cheema is following in nephrology consultation. - History of cerebrovascular accident - Diabetes mellitus. Continue Lantus and NovoLog. - Diastolic congestive heart failure. Continue to monitor intake and output. - Paroxysmal atrial fibrillation, currently in sinus rhythm. - Hypertension. - Hyperlipidemia. - Dysphagia with G-tube. Further recommendations based on clinical course. Plan of care discussed with Dr. Patel Problems: Exam/Review of Systems Vital Signs Vitals Vital Signs Date Time Temp Pulse Resp B/P Pulse Ox O2 Delivery O2 Flow Rate FiO2 07/07/17 14:00 98.6 86 20 136/64 96 Intake and Output 07/06/17 07/06/17 07/07/17 15:00 23:00 07:00 Intake Total 830 ml 1050 ml Output Total 400 ml 300 ml Balance 430 ml 750 ml Exam Constitutional: alert Neck: supple Respiratory: normal air movement Cardiovascular: nl pulses Gastrointestinal: other (G-tube), soft, tender Musculoskeletal: muscle weakness Extremities: normal pulses Results Result Diagram: 07/07/17 0536 07/07/17 0536 Results 24 hrs Laboratory Tests Test 07/06/17 17:13 07/06/17 20:28 07/07/17 00:50 07/07/17 05:12 Bedside Glucose 105 107 93 90 Test 07/07/17 05:36 07/07/17 12:00 White Blood Count 10.5 Red Blood Count 4.45 #L Hemoglobin 13.2 #L Hematocrit 39.8 #L Mean Corpuscular Volume 89.4 Mean Corpuscular Hemoglobin 29.7 Mean Corpuscular Hemoglobin Concent 33.2 Red Cell Distribution Width 14.1 Platelet Count 465 H Mean Platelet Volume 10.6 H Neutrophils % 66.0 Lymphocytes % 19.6 Monocytes % 5.4 Eosinophils % 7.2 H Basophils % 1.0 Nucleated Red Blood Cells % 0.0 Neutrophils # 7.0 Lymphocytes # 2.1 Monocytes # 0.6 Eosinophils # 0.8 H Basophils # 0.1 Nucleated Red Blood Cells # 0.0 Sodium Level 140 Potassium Level 3.6 Chloride Level 103 Carbon Dioxide Level 26 Anion Gap 15 Blood Urea Nitrogen 34 H Creatinine 4.96 H Glucose Level 86 Calcium Level 8.6 Bedside Glucose 165 Medications Medications Current Medications Dextrose/Sodium Chloride (D5-1/2ns) 1,000 ml @ 50 mls/hr Q20H IV Last administered on 07/07/17 00:54; Admin Dose 50 MLS/HR; Start 06/30/17 at 22:00 Miscellaneous Information [facility] TO DOSE ONCE XX ; Start 06/30/17 at 22: 00 Acetaminophen (Ofirmev 1000mg/ 100ml Iv) 100 ml @ 400 mls/hr Q6H PRN IVPB PAIN /FEVER Last administered on 06/30/17 23:53; Admin Dose 400 MLS/HR; Start at 22:00 Morphine Sulfate (morphine) 2 mg Q4H PRN IV PAIN; Start 06/30/17 at 22:00 Ondansetron HCl (Zofran Inj) 4 mg Q6H PRN IV NAUSEA AND/OR VOMITING Last administered on 07/05/17 09:31; Admin Dose 4 MG; Start 06/30/17 at 22:00 Hydralazine HCl (Apresoline) 10 mg Q6 PRN IV ELEVATED SYSTOLIC BP Last administered on 07/04/17 20:47; Admin Dose 10 MG; Start 06/30/17 at 22:00 Insulin Aspart (Novolog Insulin Pen) (Adult SC Insulin - Mild Algorithm)... Q6 SC Last administered on 07/07/17 12:09; Admin Dose 1 UNIT; Start 07/01/17 at 00:00 Cyclobenzaprine HCl (Flexeril) 10 mg BID PRN GTB Hiccups Last administered on 07/03/17 08:40; Admin Dose 10 MG; Start 07/01/17 at 22:00 Acetaminophen (Tylenol Liquid) 650 mg DAILY PRN GTB PAIN AND OR ELEVATED TEMP; Start 07/04/17 at 10:30 Amlodipine Besylate (Norvasc) 5 mg BID GTB Last administered on 07/07/17 08: 46; Admin Dose 5 MG; Start 07/04/17 at 21:00 Ascorbic Acid (Vitamin C) 500 mg DAILY GTB Last administered on 07/07/17 08: 46; Admin Dose 500 MG; Start 07/05/17 at 09:00 Bisacodyl (Dulcolax Supp) 10 mg Q24H [place] Last administered on 07/07/17 12:10; Admin Dose 10 MG; Start 07/04/17 at 10:30 Clonidine (Catapres) 0.2 mg DAILY GTB Last administered on 07/07/17 08:46; Admin Dose 0.2 MG; Start 07/05/17 at 09:00 Diphenhydramine HCl (Benadryl) 25 mg Q6H PRN GTB ITCHING Last administered on 07/07/17 05:33; Admin Dose 25 MG; Start 07/04/17 at 10:30 Hydralazine HCl (Apresoline) 50 mg Q6H PRN PO ELEVATED BLOOD PRESSURE; Start 07/04/17 at 10:30 Insulin Glargine (Lantus) 18 unit QHS SC Last administered on 07/06/17 20:29 ; Admin Dose 18 UNIT; Start 07/04/17 at 21:00 Lansoprazole (Prevacid) 30 mg BID GTB Last administered on 07/07/17 08:45; Admin Dose 30 MG; Start 07/04/17 at 21:00 Nitroglycerin (Nitroglycerin (Sl Tab) 0.4 Mg) 0.4 tab [id number] PRN SL CHEST PAIN; Start 07/04/17 at 10:30 Tamsulosin HCl (Flomax) 0.4 mg DAILY PO ; Start 07/05/17 at 09:00 Zinc Sulfate (Zinc Sulfate) 220 mg DAILY GTB Last administered on 07/07/17 08 :45; Admin Dose 220 MG; Start 07/05/17 at 09:00 Docusate Sodium (Colace Liquid Cup) 200 mg QHS PRN GTB CONSTIPATION; Start 08/08 at 10:37 Miscellaneous Information 1 ea NOTE XX ; Start 07/04/17 at 11:00 Glucose (Glutose) 15 gm Q15M PRN PO DECREASED GLUCOSE; Start 07/04/17 at 11:00 Glucose (Glutose) 22.5 gm Q15M PRN PO DECREASED GLUCOSE; Start 07/04/17 at 11: 00 Dextrose (D50w Syringe) 25 ml Q15M PRN IV DECREASED GLUCOSE; Start 07/04/17 at 11:00 Dextrose (D50w Syringe) 50 ml Q15M PRN IV DECREASED GLUCOSE; Start 07/04/17 at 11:00 Glucagon (Glucagen) 1 mg Q15M PRN IM DECREASED GLUCOSE; Start 07/04/17 at 11: 00 Glucose 15 gm 15 gm Q15M PRN BUCCAL DECREASED GLUCOSE; Start 07/04/17 at 11:00 Meropenem/Sodium Chloride (Merrem 500mg/50 ml(Pmx)) 50 ml @ 100 mls/hr Q24H IVPB Last administered on 07/06/17t 20:26; Admin Dose 100 MLS/HR; Start 07/05 at 21:00 Famotidine (Pepcid) 10 mg DAILY GTB ; Start 07/08/17 at 09:00 GEOVANY IBARRA Jul 07, 2017 16:09
[2017-07-07] MEDS: MEROPENEM 500MG/50 ML (PMX) 50 ML IVPB SCH (20:21)
[2017-07-07] MEDS: DOCUSATE SODIUM 10 MG/ML (10ML CUP) GTB PRN (20:24)
[2017-07-07] MEDS: INSULIN GLARGINE [LANtus] 3 ML PEN SC SCH (20:26)
[2017-07-08 03:00] VITALS: BP 131/60; RESP 18
[2017-07-08] MEDS: Insulin NOVOLOG SS MILD Algorithm (NPO/TPN/ENTERAL FEEDS) SC SCH ×3 (05:25→18:00)
[2017-07-08 07:15] VITALS: BP 155/69; RESP 16
[2017-07-08] MEDS: AMLODIPINE 5 MG TAB GTB SCH ×2 (09:54→21:09)
[2017-07-08] MEDS: FAMOTIDINE 20 MG TAB GTB SCH (09:54)
[2017-07-08] MEDS: BALSAM PERU/CASTOR OIL 60 GM TUBE TOP SCH ×2 (09:55→21:10)
[2017-07-08] MEDS: ASCORBIC ACID 500 MG TAB GTB SCH (09:55)
[2017-07-08] MEDS: ZINC SULFATE 220 MG CAP GTB SCH (09:55)
[2017-07-08] MEDS: BISACODYL 10 MG SUPP PR SCH ×3 (09:55→13:11)
[2017-07-08] MEDS: LANSOPRAZOLE 30 MG CAP GTB SCH ×2 (09:55→21:08)
--- NOTE | 2017-07-08 10:06 | CONS ---
Date/Time of Note Date/Time of Note DATE: 07/08/17 TIME: 10:06 Assessment/Plan Assessment/Plan Chief Complaint/Hosp Course Chief Complaint/Hosp Course - #Possible acute cholecystitis, continue abx. .No surgery per Dr Bojorquez - #E. coli UTI, improving leukocytosis - # ESRD on HD Acute kidney injury on chronic kidney disease. Continue hemodialysis per renal. Dr. Cheema is following in nephrology consultation. - #History of cerebrovascular accident - #Diabetes mellitus. Continue Lantus and NovoLog. - #- Paroxysmal atrial fibrillation, currently in sinus rhythm. - # Dysphagia with G tube Plan - HD tmw - iv per I.D - labs am Problems: Consultation Date/Type/Reason Admit Date/Time Jun 30, 2017 at 19:01 Initial Consult Date 07/01/17 Type of Consultation: renal Referring Provider: KE JAVED MD 24 HR Interval Summary Free Text/Dictation HD planned tmw Exam/Review of Systems Vital Signs Vitals Vital Signs Date Time Temp Pulse Resp B/P Pulse Ox O2 Delivery O2 Flow Rate FiO2 07/08/17 07:15 98.0 87 16 155/69 100 Intake and Output 07/07/17 07/07/17 07/08/17 14:59 22:59 06:59 Intake Total 500 ml 1230 ml 1130 ml Output Total 2500 ml 250 ml 400 ml Balance -2000 ml 980 ml 730 ml Exam Constitutional: alert (name) Neck: supple Respiratory: clear to auscultation Cardiovascular: regular rate and rhythm Gastrointestinal: other (g tube), soft, surgical scars permacath Results Result Diagram: 07/07/17 0536 07/07/17 0536 Results 24 hrs Laboratory Tests Test 07/07/17 12:00 07/07/17 17:24 07/07/17 20:18 07/07/17 23:32 Bedside Glucose 165 165 129 134 Test 07/08/17 05:25 Bedside Glucose 89 Medications Medications Current Medications Dextrose/Sodium Chloride (D5-1/2ns) 1,000 ml @ 50 mls/hr Q20H IV Last administered on 07/07/17t 20:24; Admin Dose 50 MLS/HR; Start 06/30/17 at 22:00 Miscellaneous Information [facility] TO DOSE ONCE XX ; Start 06/30/17 at 22: 00 Acetaminophen (Ofirmev 1000mg/ 100ml Iv) 100 ml @ 400 mls/hr Q6H PRN IVPB PAIN /FEVER Last administered on 06/30/17 23:53; Admin Dose 400 MLS/HR; Start at 22:00 Morphine Sulfate (morphine) 2 mg Q4H PRN IV PAIN; Start 06/30/17 at 22:00 Ondansetron HCl (Zofran Inj) 4 mg Q6H PRN IV NAUSEA AND/OR VOMITING Last administered on 07/05/17 09:31; Admin Dose 4 MG; Start 06/30/17 at 22:00 Hydralazine HCl (Apresoline) 10 mg Q6 PRN IV ELEVATED SYSTOLIC BP Last administered on 07/04/17 20:47; Admin Dose 10 MG; Start 06/30/17 at 22:00 Insulin Aspart (Novolog Insulin Pen) (Adult SC Insulin - Mild Algorithm)... Q6 SC Last administered on 07/07/17 17:26; Admin Dose 1 UNIT; Start 07/01/17 at 00:00 Cyclobenzaprine HCl (Flexeril) 10 mg BID PRN GTB Hiccups Last administered on 07/03/17 08:40; Admin Dose 10 MG; Start 07/01/17 at 22:00 Acetaminophen (Tylenol Liquid) 650 mg DAILY PRN GTB PAIN AND OR ELEVATED TEMP; Start 07/04/17 at 10:30 Amlodipine Besylate (Norvasc) 5 mg BID GTB Last administered on 07/07/17 20: 20; Admin Dose 5 MG; Start 07/04/17 at 21:00 Ascorbic Acid (Vitamin C) 500 mg DAILY GTB Last administered on 07/07/17 08: 46; Admin Dose 500 MG; Start 07/05/17 at 09:00 Bisacodyl (Dulcolax Supp) 10 mg Q24H [place] Last administered on 07/07/17 12:10; Admin Dose 10 MG; Start 07/04/17 at 10:30 Clonidine (Catapres) 0.2 mg DAILY GTB Last administered on 07/07/17 08:46; Admin Dose 0.2 MG; Start 07/05/17 at 09:00 Diphenhydramine HCl (Benadryl) 25 mg Q6H PRN GTB ITCHING Last administered on 07/07/17 23:31; Admin Dose 25 MG; Start 07/04/17 at 10:30 Hydralazine HCl (Apresoline) 50 mg Q6H PRN PO ELEVATED BLOOD PRESSURE; Start 07/04/17 at 10:30 Insulin Glargine (Lantus) 18 unit QHS SC Last administered on 07/07/17 20:26 ; Admin Dose 18 UNIT; Start 07/04/17 at 21:00 Lansoprazole (Prevacid) 30 mg BID GTB Last administered on 07/07/17 20:20; Admin Dose 30 MG; Start 07/04/17 at 21:00 Nitroglycerin (Nitroglycerin (Sl Tab) 0.4 Mg) 0.4 tab [id number] PRN SL CHEST PAIN; Start 07/04/17 at 10:30 Tamsulosin HCl (Flomax) 0.4 mg DAILY PO ; Start 07/05/17 at 09:00 Zinc Sulfate (Zinc Sulfate) 220 mg DAILY GTB Last administered on 07/07/17 08 :45; Admin Dose 220 MG; Start 07/05/17 at 09:00 Docusate Sodium (Colace Liquid Cup) 200 mg QHS PRN GTB CONSTIPATION Last administered on 07/07/17 20:24; Admin Dose 200 MG; Start 07/04/17 at 10:37 Miscellaneous Information 1 ea NOTE XX ; Start 07/04/17 at 11:00 Glucose (Glutose) 15 gm Q15M PRN PO DECREASED GLUCOSE; Start 07/04/17 at 11:00 Glucose (Glutose) 22.5 gm Q15M PRN PO DECREASED GLUCOSE; Start 07/04/17 at 11: 00 Dextrose (D50w Syringe) 25 ml Q15M PRN IV DECREASED GLUCOSE; Start 07/04/17 at 11:00 Dextrose (D50w Syringe) 50 ml Q15M PRN IV DECREASED GLUCOSE; Start 07/04/17 at 11:00 Glucagon (Glucagen) 1 mg Q15M PRN IM DECREASED GLUCOSE; Start 07/04/17 at 11: 00 Glucose 15 gm 15 gm Q15M PRN BUCCAL DECREASED GLUCOSE; Start 07/04/17 at 11:00 Meropenem/Sodium Chloride (Merrem 500mg/50 ml(Pmx)) 50 ml @ 100 mls/hr Q24H IVPB Last administered on 07/07/17t 20:21; Admin Dose 100 MLS/HR; Start 07/05 at 21:00 Famotidine (Pepcid) 10 mg DAILY GTB ; Start 07/08/17 at 09:00 PORTIA OLIVER MD Jul 08, 2017 10:06
--- NOTE | 2017-07-08 13:02 | PN ---
Date/Time of Note Date/Time of Note DATE: 07/08/17 TIME: 12:59 Assessment/Plan Lines/Catheters IV Catheter Type (from Nrs): PERMACATH Flores in Place (from Nrs): Yes Assessment/Plan Chief Complaint/Hosp Course 1. Cholelithiasis with Negative HIDA (no acute cholecystitis) -no lap avery: previously discussed with family and patient-wanting to manage conservatively at this point -ivf -pain management 2. UTI: -abx per sensitivity -frequent bladder emptying/cath care 3. Leukocytosis: likely 2/2 #2, ? 1, ? other, normalized -as above -monitor 4. Anemia: no acute bleed noted -monitor -transfuse as needed 5. ESRD on HD -HD per renal -avoid/limit nephrotoxic meds -judicious fluids -renally dose meds 6. Electrolyte imbalance: -optimize lytes 7. Elevated LFT: -as above 8. Hypoalbuminemia: multifactorial -optimize nutrition as able -management of infection/inflammation 9. Dysphagia with feeding tube: on tube feeds -continue tf with aspiration precautions Thank you. Patient seen and examined in collaboration with Dr. Abraham Bojorquez. Problems: Subjective 24 Hr Interval Summary Nonverbal indicators of pain not present. No fevers, chills, sob, congested cough, cp, palpitations, hernandez, dizziness, n/v/d/dysuria. Tolerating tf with min residual. Exam/Review of Systems Vital Signs Vitals Vital Signs Date Time Temp Pulse Resp B/P Pulse Ox O2 Delivery O2 Flow Rate FiO2 07/08/17 07:15 98.0 87 16 155/69 100 Intake and Output 07/07/17 07/07/17 07/08/17 15:00 23:00 07:00 Intake Total 500 ml 1230 ml 1130 ml Output Total 2500 ml 250 ml 400 ml Balance -2000 ml 980 ml 730 ml Exam Free Text/Dictation Constitutional: alert, oriented, responsive Head: atraumatic, normocephalic Eyes: nl lids, nl sclera ENMT: mucosa pink and moist, nl nasal mucosa & septum Neck: non-tender, supple Respiratory: normal air movement, No labored breathing Cardiovascular: regular rate and rhythm Gastrointestinal: non-tender, other (peg), soft Genitourinary - Male: nl penis, nl scrotum Musculoskeletal: nl extremities to inspection Extremities: normal pulses Neurological: No nl mental status, No nl speech (delayed) Skin: nl turgor Results Result Diagram: 07/07/17 0536 07/07/17 0536 SUSSY PAL NP Jul 08, 2017 13:01
--- NOTE | 2017-07-08 14:30 | CONS ---
Date/Time of Note Date/Time of Note DATE: 07/08/17 TIME: 14:29 Consult Date/Type/Reason Admit Date/Time Jun 30, 2017 at 19:01 Initial Consult Date 07/01/17 Type of Consultation: id Ordering Provider: KE JAVED MD Objective Vital Signs Date Time Temp Pulse Resp B/P Pulse Ox O2 Delivery O2 Flow Rate FiO2 07/08/17 07:15 98.0 87 16 155/69 100 Intake and Output 07/07/17 07/07/17 07/08/17 15:00 23:00 07:00 Intake Total 500 ml 1230 ml 1130 ml Output Total 2500 ml 250 ml 400 ml Balance -2000 ml 980 ml 730 ml Results/Medications Result Diagram: 07/07/1736 07/07/17 0536 Results 24 hrs Laboratory Tests Test 07/07/17 17:24 07/07/17 20:18 07/07/17 23:32 07/08/17 05:25 Bedside Glucose 165 129 134 89 Test 07/08/17 12:31 Bedside Glucose 92 Medications Current Medications Dextrose/Sodium Chloride (D5-1/2ns) 1,000 ml @ 50 mls/hr Q20H IV Last administered on 07/07/17 20:24; Admin Dose 50 MLS/HR; Start 06/30/17 at 22:00 Miscellaneous Information [facility] TO DOSE ONCE XX ; Start 06/30/17 at 22: 00 Acetaminophen (Ofirmev 1000mg/ 100ml Iv) 100 ml @ 400 mls/hr Q6H PRN IVPB PAIN /FEVER Last administered on 06/30/17 23:53; Admin Dose 400 MLS/HR; Start at 22:00 Morphine Sulfate (morphine) 2 mg Q4H PRN IV PAIN; Start 06/30/17 at 22:00 Ondansetron HCl (Zofran Inj) 4 mg Q6H PRN IV NAUSEA AND/OR VOMITING Last administered on 07/05/17 09:31; Admin Dose 4 MG; Start 06/30/17 at 22:00 Hydralazine HCl (Apresoline) 10 mg Q6 PRN IV ELEVATED SYSTOLIC BP Last administered on 07/04/17 20:47; Admin Dose 10 MG; Start 06/30/17 at 22:00 Insulin Aspart (Novolog Insulin Pen) (Adult SC Insulin - Mild Algorithm)... Q6 SC Last administered on 07/07/17 17:26; Admin Dose 1 UNIT; Start 07/01/17 at 00:00 Cyclobenzaprine HCl (Flexeril) 10 mg BID PRN GTB Hiccups Last administered on 07/03/17 08:40; Admin Dose 10 MG; Start 07/01/17 at 22:00 Acetaminophen (Tylenol Liquid) 650 mg DAILY PRN GTB PAIN AND OR ELEVATED TEMP; Start 07/04/17 at 10:30 Amlodipine Besylate (Norvasc) 5 mg BID GTB Last administered on 07/08/17 09: 54; Admin Dose 5 MG; Start 07/04/17 at 21:00 Ascorbic Acid (Vitamin C) 500 mg DAILY GTB Last administered on 07/08/17 09: 55; Admin Dose 500 MG; Start 07/05/17 at 09:00 Bisacodyl (Dulcolax Supp) 10 mg Q24H [place] Last administered on 07/08/17 13:11; Admin Dose 10 MG; Start 07/04/17 at 10:30 Clonidine (Catapres) 0.2 mg DAILY GTB Last administered on 07/08/17 09:54; Admin Dose 0.2 MG; Start 07/05/17 at 09:00 Diphenhydramine HCl (Benadryl) 25 mg Q6H PRN GTB ITCHING Last administered on 07/07/17 23:31; Admin Dose 25 MG; Start 07/04/17 at 10:30 Hydralazine HCl (Apresoline) 50 mg Q6H PRN PO ELEVATED BLOOD PRESSURE; Start 07/04/17 at 10:30 Insulin Glargine (Lantus) 18 unit QHS SC Last administered on 07/07/17 20:26 ; Admin Dose 18 UNIT; Start 07/04/17 at 21:00 Lansoprazole (Prevacid) 30 mg BID GTB Last administered on 07/08/17 09:55; Admin Dose 30 MG; Start 07/04/17 at 21:00 Nitroglycerin (Nitroglycerin (Sl Tab) 0.4 Mg) 0.4 tab [id number] PRN SL CHEST PAIN; Start 07/04/17 at 10:30 Tamsulosin HCl (Flomax) 0.4 mg DAILY PO ; Start 07/05/17 at 09:00 Zinc Sulfate (Zinc Sulfate) 220 mg DAILY GTB Last administered on 07/08/17 09 :55; Admin Dose 220 MG; Start 07/05/17 at 09:00 Docusate Sodium (Colace Liquid Cup) 200 mg QHS PRN GTB CONSTIPATION Last administered on 07/07/17 20:24; Admin Dose 200 MG; Start 07/04/17 at 10:37 Miscellaneous Information 1 ea NOTE XX ; Start 07/04/17 at 11:00 Glucose (Glutose) 15 gm Q15M PRN PO DECREASED GLUCOSE; Start 07/04/17 at 11:00 Glucose (Glutose) 22.5 gm Q15M PRN PO DECREASED GLUCOSE; Start 07/04/17 at 11: 00 Dextrose (D50w Syringe) 25 ml Q15M PRN IV DECREASED GLUCOSE; Start 07/04/17 at 11:00 Dextrose (D50w Syringe) 50 ml Q15M PRN IV DECREASED GLUCOSE; Start 07/04/17 at 11:00 Glucagon (Glucagen) 1 mg Q15M PRN IM DECREASED GLUCOSE; Start 07/04/17 at 11: 00 Glucose 15 gm 15 gm Q15M PRN BUCCAL DECREASED GLUCOSE; Start 07/04/17 at 11:00 Meropenem/Sodium Chloride (Merrem 500mg/50 ml(Pmx)) 50 ml @ 100 mls/hr Q24H IVPB Last administered on 07/07/17 20:21; Admin Dose 100 MLS/HR; Start 07/05 at 21:00 Famotidine (Pepcid) 10 mg DAILY GTB Last administered on 07/08/17 09:54; Admin Dose 10 MG; Start 07/08/17 at 09:00 Assessment/Plan Chief Complaint/Hosp Course SUBJECTIVE: No acute changes. The patient is lethargic, looks comfortable, no fevers. INDWELLINGS: Right chest PermCath, PEG, Flores. MICROBIOLOGY: Urine culture on admission grew E. coli. Blood cultures have been negative. ANTIMICROBIALS: Merrem. PHYSICAL EXAMINATION: GENERAL: This is a chronically ill-appearing, elderly man who is in no distress. HEENT: Head atraumatic, normocephalic. Sclerae anicteric. Buccal mucosa dry. NECK: Supple. CHEST: Rise symmetrical. Breath sounds diminished to bases. HEART: S1, S2. ABDOMEN: Soft, bowel tones present. EXTREMITIES: Without cyanosis. ASSESSMENT: 1. Resolving sepsis. 2. Healthcare-associated pneumonia, possibly aspiration. 3. Urinary tract infection. 4. End-stage renal disease. 5. Dysphagia. 6. Encephalopathy. 7. Diabetes. PLAN: The patient remains stable, continue antibiotics, HD, aspiration precautions. Dw staff Problems: KAYLA CASTREJON NP Jul 08, 2017 14:30
[2017-07-08 14:45] VITALS: BP 126/61; RESP 16
--- NOTE | 2017-07-08 16:13 | PN ---
Date/Time of Note Date/Time of Note DATE: 07/08/17 TIME: 16:13 Assessment/Plan VTE Prophylaxis VTE Prophylaxis Intervention: SCD's Lines/Catheters IV Catheter Type (from Nrs): PERMACATH Urinary Cath still in place: Yes Reason Cath still needed: urinary retention Assessment/Plan Chief Complaint/Hosp Course No acute events overnight. Assessment/Plan - Possible acute cholecystitis, continue abx. Dr. Bojorquez is following in general surgery consultation. Family prefer to manage conservatively versus surgery. - E. coli UTI, continue meropenem. - Acute kidney injury on chronic kidney disease. Continue hemodialysis per renal. Dr. Cheema is following in nephrology consultation. - History of cerebrovascular accident - Diabetes mellitus. Continue Lantus and NovoLog. - Diastolic congestive heart failure. Continue to monitor intake and output. - Paroxysmal atrial fibrillation, currently in sinus rhythm. - Hypertension. - Hyperlipidemia. - Dysphagia with G-tube. Further recommendations based on clinical course. Plan of care discussed with Dr. Patel Problems: Exam/Review of Systems Vital Signs Vitals Vital Signs Date Time Temp Pulse Resp B/P Pulse Ox O2 Delivery O2 Flow Rate FiO2 07/08/17 14:45 97.8 90 16 126/61 98 Intake and Output 07/07/17 07/07/17 07/08/17 14:59 22:59 06:59 Intake Total 500 ml 1230 ml 1130 ml Output Total 2500 ml 250 ml 400 ml Balance -2000 ml 980 ml 730 ml Results Result Diagram: 07/07/17 0536 07/07/17 0536 Results 24 hrs Laboratory Tests Test 07/07/17 17:24 07/07/17 20:18 07/07/17 23:32 07/08/17 05:25 Bedside Glucose 165 129 134 89 Test 07/08/17 12:31 Bedside Glucose 92 Medications Medications Current Medications Dextrose/Sodium Chloride (D5-1/2ns) 1,000 ml @ 50 mls/hr Q20H IV Last administered on 07/07/17t 20:24; Admin Dose 50 MLS/HR; Start 06/30/17 at 22:00 Miscellaneous Information [facility] TO DOSE ONCE XX ; Start 06/30/17 at 22: 00 Acetaminophen (Ofirmev 1000mg/ 100ml Iv) 100 ml @ 400 mls/hr Q6H PRN IVPB PAIN /FEVER Last administered on 06/30/17 23:53; Admin Dose 400 MLS/HR; Start at 22:00 Morphine Sulfate (morphine) 2 mg Q4H PRN IV PAIN; Start 06/30/17 at 22:00 Ondansetron HCl (Zofran Inj) 4 mg Q6H PRN IV NAUSEA AND/OR VOMITING Last administered on 07/05/17 09:31; Admin Dose 4 MG; Start 06/30/17 at 22:00 Hydralazine HCl (Apresoline) 10 mg Q6 PRN IV ELEVATED SYSTOLIC BP Last administered on 07/04/17 20:47; Admin Dose 10 MG; Start 06/30/17 at 22:00 Insulin Aspart (Novolog Insulin Pen) (Adult SC Insulin - Mild Algorithm)... Q6 SC Last administered on 07/07/17 17:26; Admin Dose 1 UNIT; Start 07/01/17 at 00:00 Cyclobenzaprine HCl (Flexeril) 10 mg BID PRN GTB Hiccups Last administered on 07/03/17 08:40; Admin Dose 10 MG; Start 07/01/17 at 22:00 Acetaminophen (Tylenol Liquid) 650 mg DAILY PRN GTB PAIN AND OR ELEVATED TEMP; Start 07/04/17 at 10:30 Amlodipine Besylate (Norvasc) 5 mg BID GTB Last administered on 07/08/17 09: 54; Admin Dose 5 MG; Start 07/04/17 at 21:00 Ascorbic Acid (Vitamin C) 500 mg DAILY GTB Last administered on 07/08/17 09: 55; Admin Dose 500 MG; Start 07/05/17 at 09:00 Bisacodyl (Dulcolax Supp) 10 mg Q24H [place] Last administered on 07/08/17 13:11; Admin Dose 10 MG; Start 07/04/17 at 10:30 Clonidine (Catapres) 0.2 mg DAILY GTB Last administered on 07/08/17 09:54; Admin Dose 0.2 MG; Start 07/05/17 at 09:00 Diphenhydramine HCl (Benadryl) 25 mg Q6H PRN GTB ITCHING Last administered on 07/07/17 23:31; Admin Dose 25 MG; Start 07/04/17 at 10:30 Hydralazine HCl (Apresoline) 50 mg Q6H PRN PO ELEVATED BLOOD PRESSURE; Start 07/04/17 at 10:30 Insulin Glargine (Lantus) 18 unit QHS SC Last administered on 07/07/17 20:26 ; Admin Dose 18 UNIT; Start 07/04/17 at 21:00 Lansoprazole (Prevacid) 30 mg BID GTB Last administered on 07/08/17 09:55; Admin Dose 30 MG; Start 07/04/17 at 21:00 Nitroglycerin (Nitroglycerin (Sl Tab) 0.4 Mg) 0.4 tab [id number] PRN SL CHEST PAIN; Start 07/04/17 at 10:30 Tamsulosin HCl (Flomax) 0.4 mg DAILY PO ; Start 07/05/17 at 09:00 Zinc Sulfate (Zinc Sulfate) 220 mg DAILY GTB Last administered on 07/08/17 09 :55; Admin Dose 220 MG; Start 07/05/17 at 09:00 Docusate Sodium (Colace Liquid Cup) 200 mg QHS PRN GTB CONSTIPATION Last administered on 07/07/17 20:24; Admin Dose 200 MG; Start 07/04/17 at 10:37 Miscellaneous Information 1 ea NOTE XX ; Start 07/04/17 at 11:00 Glucose (Glutose) 15 gm Q15M PRN PO DECREASED GLUCOSE; Start 07/04/17 at 11:00 Glucose (Glutose) 22.5 gm Q15M PRN PO DECREASED GLUCOSE; Start 07/04/17 at 11: 00 Dextrose (D50w Syringe) 25 ml Q15M PRN IV DECREASED GLUCOSE; Start 07/04/17 at 11:00 Dextrose (D50w Syringe) 50 ml Q15M PRN IV DECREASED GLUCOSE; Start 07/04/17 at 11:00 Glucagon (Glucagen) 1 mg Q15M PRN IM DECREASED GLUCOSE; Start 07/04/17 at 11: 00 Glucose 15 gm 15 gm Q15M PRN BUCCAL DECREASED GLUCOSE; Start 07/04/17 at 11:00 Meropenem/Sodium Chloride (Merrem 500mg/50 ml(Pmx)) 50 ml @ 100 mls/hr Q24H IVPB Last administered on 07/07/17 20:21; Admin Dose 100 MLS/HR; Start 07/05 at 21:00 Famotidine (Pepcid) 10 mg DAILY GTB Last administered on 07/08/17t 09:54; Admin Dose 10 MG; Start 07/08/17 at 09:00 GEOVANY IBARRA Jul 08, 2017 16:13
[2017-07-08] MEDS: DEXTROSE 5%-0.45% NACL 1,000 ML IV SCH (18:15)
[2017-07-08 20:00] VITALS: BP 132/62; RESP 19
[2017-07-08] MEDS: MEROPENEM 500MG/50 ML (PMX) 50 ML IVPB SCH (21:08)
[2017-07-08] MEDS: INSULIN GLARGINE [LANtus] 3 ML PEN SC SCH (21:09)
[2017-07-09] VITALS (13 sets, daily range): BP systolic 132–168; BP diastolic 61–87; PULSE 86–106; RESP 16–19
[2017-07-09] MEDS: DEXTROSE 5%-0.45% NACL 1,000 ML IV SCH ×2 (05:25→23:15)
[2017-07-09] MEDS: Insulin NOVOLOG SS MILD Algorithm (NPO/TPN/ENTERAL FEEDS) SC SCH ×5 (05:25→23:54)
[2017-07-09] MEDS: AMLODIPINE 5 MG TAB GTB SCH ×2 (09:00→22:09)
[2017-07-09] MEDS: BALSAM PERU/CASTOR OIL 60 GM TUBE TOP SCH ×2 (09:35→22:12)
[2017-07-09] MEDS: LANSOPRAZOLE 30 MG CAP GTB SCH ×2 (09:36→22:10)
[2017-07-09] MEDS: FAMOTIDINE 20 MG TAB GTB SCH (09:36)
[2017-07-09] MEDS: ASCORBIC ACID 500 MG TAB GTB SCH (09:37)
[2017-07-09] MEDS: ZINC SULFATE 220 MG CAP GTB SCH (09:37)
[2017-07-09] MEDS: BISACODYL 10 MG SUPP PR SCH (09:51)
--- NOTE | 2017-07-09 11:24 | CONS ---
Date/Time of Note Date/Time of Note DATE: 07/09/17 TIME: 11:22 Assessment/Plan Assessment/Plan Chief Complaint/Hosp Course 1. Sepsis, better. 2. Pneumonia. 3. The patient has cholecystitis. 4. G tube status 5. Anemia. 6. Chronic kidney disease 5. 7. ESRD Problems: Additional Assessment/Plan 1. Continue HD Consultation Date/Type/Reason Admit Date/Time Jun 30, 2017 at 19:01 Initial Consult Date 07/01/17 Type of Consultation: nephrology Reason for Consultation Dr Cheema Referring Provider: KE JAVED MD 24 HR Interval Summary Subjective hx not possible: other (confused) Exam/Review of Systems Vital Signs Vitals Vital Signs Date Time Temp Pulse Resp B/P Pulse Ox O2 Delivery O2 Flow Rate FiO2 07/09/17 08:44 97.6 88 16 152/70 99 Intake and Output 07/08/17 07/08/17 07/09/17 15:00 23:00 07:00 Intake Total 1160 ml 600 ml Output Total 300 ml 400 ml Balance 860 ml 200 ml Exam Constitutional: frail Cardiovascular: irregular rhythm Gastrointestinal: other (g tube), soft Results Result Diagram: 07/07/17 0536 07/07/17 0536 Results 24 hrs Laboratory Tests Test 07/08/17 12:31 07/08/17 18:19 07/08/17 21:07 07/09/17 00:36 Bedside Glucose 92 88 121 104 Test 07/09/17 05:24 Bedside Glucose 86 Medications Medications Current Medications Dextrose/Sodium Chloride (D5-1/2ns) 1,000 ml @ 50 mls/hr Q20H IV Last administered on 07/08/17 18:15; Admin Dose 50 MLS/HR; Start 06/30/17 at 22:00 Miscellaneous Information [facility] TO DOSE ONCE XX ; Start 06/30/17 at 22: 00 Acetaminophen (Ofirmev 1000mg/ 100ml Iv) 100 ml @ 400 mls/hr Q6H PRN IVPB PAIN /FEVER Last administered on 06/30/17 23:53; Admin Dose 400 MLS/HR; Start at 22:00 Morphine Sulfate (morphine) 2 mg Q4H PRN IV PAIN; Start 06/30/17 at 22:00 Ondansetron HCl (Zofran Inj) 4 mg Q6H PRN IV NAUSEA AND/OR VOMITING Last administered on 07/05/17 09:31; Admin Dose 4 MG; Start 06/30/17 at 22:00 Hydralazine HCl (Apresoline) 10 mg Q6 PRN IV ELEVATED SYSTOLIC BP Last administered on 07/04/17 20:47; Admin Dose 10 MG; Start 06/30/17 at 22:00 Insulin Aspart (Novolog Insulin Pen) (Adult SC Insulin - Mild Algorithm)... Q6 SC Last administered on 07/07/17 17:26; Admin Dose 1 UNIT; Start 07/01/17 at 00:00 Cyclobenzaprine HCl (Flexeril) 10 mg BID PRN GTB Hiccups Last administered on 07/03/17 08:40; Admin Dose 10 MG; Start 07/01/17 at 22:00 Acetaminophen (Tylenol Liquid) 650 mg DAILY PRN GTB PAIN AND OR ELEVATED TEMP; Start 07/04/17 at 10:30 Amlodipine Besylate (Norvasc) 5 mg BID GTB Last administered on 07/08/17 21: 09; Admin Dose 5 MG; Start 07/04/17 at 21:00 Ascorbic Acid (Vitamin C) 500 mg DAILY GTB Last administered on 07/09/17 09: 37; Admin Dose 500 MG; Start 07/05/17 at 09:00 Bisacodyl (Dulcolax Supp) 10 mg Q24H [place] Last administered on 07/08/17 13:11; Admin Dose 10 MG; Start 07/04/17 at 10:30 Clonidine (Catapres) 0.2 mg DAILY GTB Last administered on 07/08/17 09:54; Admin Dose 0.2 MG; Start 07/05/17 at 09:00 Diphenhydramine HCl (Benadryl) 25 mg Q6H PRN GTB ITCHING Last administered on 07/07/17 23:31; Admin Dose 25 MG; Start 07/04/17 at 10:30 Hydralazine HCl (Apresoline) 50 mg Q6H PRN PO ELEVATED BLOOD PRESSURE; Start 07/04/17 at 10:30 Insulin Glargine (Lantus) 18 unit QHS SC Last administered on 07/08/17 21:09 ; Admin Dose 18 UNIT; Start 07/04/17 at 21:00 Lansoprazole (Prevacid) 30 mg BID GTB Last administered on 07/09/17 09:36; Admin Dose 30 MG; Start 07/04/17 at 21:00 Nitroglycerin (Nitroglycerin (Sl Tab) 0.4 Mg) 0.4 tab [id number] PRN SL CHEST PAIN; Start 07/04/17 at 10:30 Tamsulosin HCl (Flomax) 0.4 mg DAILY PO ; Start 07/05/17 at 09:00 Zinc Sulfate (Zinc Sulfate) 220 mg DAILY GTB Last administered on 07/09/17 09 :37; Admin Dose 220 MG; Start 07/05/17 at 09:00 Docusate Sodium (Colace Liquid Cup) 200 mg QHS PRN GTB CONSTIPATION Last administered on 07/07/17 20:24; Admin Dose 200 MG; Start 07/04/17 at 10:37 Miscellaneous Information 1 ea NOTE XX ; Start 07/04/17 at 11:00 Glucose (Glutose) 15 gm Q15M PRN PO DECREASED GLUCOSE; Start 07/04/17 at 11:00 Glucose (Glutose) 22.5 gm Q15M PRN PO DECREASED GLUCOSE; Start 07/04/17 at 11: 00 Dextrose (D50w Syringe) 25 ml Q15M PRN IV DECREASED GLUCOSE; Start 07/04/17 at 11:00 Dextrose (D50w Syringe) 50 ml Q15M PRN IV DECREASED GLUCOSE; Start 07/04/17 at 11:00 Glucagon (Glucagen) 1 mg Q15M PRN IM DECREASED GLUCOSE; Start 07/04/17 at 11: 00 Glucose 15 gm 15 gm Q15M PRN BUCCAL DECREASED GLUCOSE; Start 07/04/17 at 11:00 Meropenem/Sodium Chloride (Merrem 500mg/50 ml(Pmx)) 50 ml @ 100 mls/hr Q24H IVPB Last administered on 07/08/17 21:08; Admin Dose 100 MLS/HR; Start 07/05 at 21:00 Famotidine (Pepcid) 10 mg DAILY GTB Last administered on 07/09/17 09:36; Admin Dose 10 MG; Start 07/08/17 at 09:00 CHELSIE HERNÁNDEZ Jul 09, 2017 11:24
--- NOTE | 2017-07-09 11:55 | PN ---
Date/Time of Note Date/Time of Note DATE: 07/09/17 TIME: 11:54 Assessment/Plan VTE Prophylaxis VTE Prophylaxis Intervention: SCD's Lines/Catheters IV Catheter Type (from Nrs): Peripheral IV Urinary Cath still in place: Yes Reason Cath still needed: urinary retention Assessment/Plan Chief Complaint/Hosp Course Patient is undergoing hemodialysis, lethargic but easily arousable, stable vital signs. Assessment/Plan - Possible acute cholecystitis, continue abx. Dr. Bojorquez is following in general surgery consultation. Family prefer to manage conservatively versus surgery. - E. coli UTI, continue meropenem. - Acute kidney injury on chronic kidney disease. Continue hemodialysis per renal. Dr. Cheema is following in nephrology consultation. - History of cerebrovascular accident - Diabetes mellitus. Continue Lantus and NovoLog. - Diastolic congestive heart failure. Continue to monitor intake and output. - Paroxysmal atrial fibrillation, currently in sinus rhythm. - Hypertension. - Hyperlipidemia. - Dysphagia with G-tube. Further recommendations based on clinical course. Plan of care discussed with Dr. Patel Problems: Exam/Review of Systems Vital Signs Vitals Vital Signs Date Time Temp Pulse Resp B/P Pulse Ox O2 Delivery O2 Flow Rate FiO2 07/09/17 08:44 97.6 88 16 152/70 99 Intake and Output 07/08/17 07/08/17 07/09/17 15:00 23:00 07:00 Intake Total 1160 ml 600 ml Output Total 300 ml 400 ml Balance 860 ml 200 ml Exam Constitutional: alert Neck: supple Respiratory: normal air movement Cardiovascular: nl pulses Gastrointestinal: other (G-tube), soft, tender Musculoskeletal: muscle weakness Extremities: normal pulses Results Result Diagram: 07/07/17 0536 07/07/17 0536 Results 24 hrs Laboratory Tests Test 07/08/17 12:31 07/08/17 18:19 07/08/17 21:07 07/09/17 00:36 Bedside Glucose 92 88 121 104 Test 07/09/17 05:24 Bedside Glucose 86 Medications Medications Current Medications Dextrose/Sodium Chloride (D5-1/2ns) 1,000 ml @ 50 mls/hr Q20H IV Last administered on 07/08/17t 18:15; Admin Dose 50 MLS/HR; Start 06/30/17 at 22:00 Miscellaneous Information [facility] TO DOSE ONCE XX ; Start 06/30/17 at 22: 00 Acetaminophen (Ofirmev 1000mg/ 100ml Iv) 100 ml @ 400 mls/hr Q6H PRN IVPB PAIN /FEVER Last administered on 06/30/17 23:53; Admin Dose 400 MLS/HR; Start at 22:00 Morphine Sulfate (morphine) 2 mg Q4H PRN IV PAIN; Start 06/30/17 at 22:00 Ondansetron HCl (Zofran Inj) 4 mg Q6H PRN IV NAUSEA AND/OR VOMITING Last administered on 07/05/17 09:31; Admin Dose 4 MG; Start 06/30/17 at 22:00 Hydralazine HCl (Apresoline) 10 mg Q6 PRN IV ELEVATED SYSTOLIC BP Last administered on 07/04/17 20:47; Admin Dose 10 MG; Start 06/30/17 at 22:00 Insulin Aspart (Novolog Insulin Pen) (Adult SC Insulin - Mild Algorithm)... Q6 SC Last administered on 07/07/17 17:26; Admin Dose 1 UNIT; Start 07/01/17 at 00:00 Cyclobenzaprine HCl (Flexeril) 10 mg BID PRN GTB Hiccups Last administered on 07/03/17 08:40; Admin Dose 10 MG; Start 07/01/17 at 22:00 Acetaminophen (Tylenol Liquid) 650 mg DAILY PRN GTB PAIN AND OR ELEVATED TEMP; Start 07/04/17 at 10:30 Amlodipine Besylate (Norvasc) 5 mg BID GTB Last administered on 07/08/17 21: 09; Admin Dose 5 MG; Start 07/04/17 at 21:00 Ascorbic Acid (Vitamin C) 500 mg DAILY GTB Last administered on 07/09/17 09: 37; Admin Dose 500 MG; Start 07/05/17 at 09:00 Bisacodyl (Dulcolax Supp) 10 mg Q24H [place] Last administered on 07/08/17 13:11; Admin Dose 10 MG; Start 07/04/17 at 10:30 Clonidine (Catapres) 0.2 mg DAILY GTB Last administered on 07/08/17 09:54; Admin Dose 0.2 MG; Start 07/05/17 at 09:00 Diphenhydramine HCl (Benadryl) 25 mg Q6H PRN GTB ITCHING Last administered on 07/07/17 23:31; Admin Dose 25 MG; Start 07/04/17 at 10:30 Hydralazine HCl (Apresoline) 50 mg Q6H PRN PO ELEVATED BLOOD PRESSURE; Start 07/04/17 at 10:30 Insulin Glargine (Lantus) 18 unit QHS SC Last administered on 07/08/17 21:09 ; Admin Dose 18 UNIT; Start 07/04/17 at 21:00 Lansoprazole (Prevacid) 30 mg BID GTB Last administered on 07/09/17 09:36; Admin Dose 30 MG; Start 07/04/17 at 21:00 Nitroglycerin (Nitroglycerin (Sl Tab) 0.4 Mg) 0.4 tab [id number] PRN SL CHEST PAIN; Start 07/04/17 at 10:30 Tamsulosin HCl (Flomax) 0.4 mg DAILY PO ; Start 07/05/17 at 09:00 Zinc Sulfate (Zinc Sulfate) 220 mg DAILY GTB Last administered on 07/09/17 09 :37; Admin Dose 220 MG; Start 07/05/17 at 09:00 Docusate Sodium (Colace Liquid Cup) 200 mg QHS PRN GTB CONSTIPATION Last administered on 07/07/17 20:24; Admin Dose 200 MG; Start 07/04/17 at 10:37 Miscellaneous Information 1 ea NOTE XX ; Start 07/04/17 at 11:00 Glucose (Glutose) 15 gm Q15M PRN PO DECREASED GLUCOSE; Start 07/04/17 at 11:00 Glucose (Glutose) 22.5 gm Q15M PRN PO DECREASED GLUCOSE; Start 07/04/17 at 11: 00 Dextrose (D50w Syringe) 25 ml Q15M PRN IV DECREASED GLUCOSE; Start 07/04/17 at 11:00 Dextrose (D50w Syringe) 50 ml Q15M PRN IV DECREASED GLUCOSE; Start 07/04/17 at 11:00 Glucagon (Glucagen) 1 mg Q15M PRN IM DECREASED GLUCOSE; Start 07/04/17 at 11: 00 Glucose 15 gm 15 gm Q15M PRN BUCCAL DECREASED GLUCOSE; Start 07/04/17 at 11:00 Meropenem/Sodium Chloride (Merrem 500mg/50 ml(Pmx)) 50 ml @ 100 mls/hr Q24H IVPB Last administered on 07/08/17 21:08; Admin Dose 100 MLS/HR; Start 07/05 at 21:00 Famotidine (Pepcid) 10 mg DAILY GTB Last administered on 07/09/17 09:36; Admin Dose 10 MG; Start 07/08/17 at 09:00 GEOVANY IBARRA Jul 09, 2017 11:55
--- NOTE | 2017-07-09 14:27 | CONS ---
Date/Time of Note Date/Time of Note DATE: 07/09/17 TIME: 14:26 Consult Date/Type/Reason Admit Date/Time Jun 30, 2017 at 19:01 Initial Consult Date 07/01/17 Type of Consultation: ID Ordering Provider: KE JAVED MD Objective Vital Signs Date Time Temp Pulse Resp B/P Pulse Ox O2 Delivery O2 Flow Rate FiO2 07/09/17 12:00 104 07/09/17 09:30 18 07/09/17 08:44 97.6 152/70 99 Intake and Output 07/08/17 07/08/17 07/09/17 14:59 22:59 06:59 Intake Total 1160 ml 600 ml Output Total 300 ml 400 ml Balance 860 ml 200 ml Results/Medications Result Diagram: 07/07/1736 07/07/17 0536 Results 24 hrs Laboratory Tests Test 07/08/17 18:19 07/08/17 21:07 07/09/17 00:36 07/09/17 05:24 Bedside Glucose 88 121 104 86 Test 07/09/17 12:14 Bedside Glucose 128 Medications Current Medications Dextrose/Sodium Chloride (D5-1/2ns) 1,000 ml @ 50 mls/hr Q20H IV Last administered on 07/08/17 18:15; Admin Dose 50 MLS/HR; Start 06/30/17 at 22:00 Miscellaneous Information [facility] TO DOSE ONCE XX ; Start 06/30/17 at 22: 00 Acetaminophen (Ofirmev 1000mg/ 100ml Iv) 100 ml @ 400 mls/hr Q6H PRN IVPB PAIN /FEVER Last administered on 06/30/17 23:53; Admin Dose 400 MLS/HR; Start at 22:00 Morphine Sulfate (morphine) 2 mg Q4H PRN IV PAIN; Start 06/30/17 at 22:00 Ondansetron HCl (Zofran Inj) 4 mg Q6H PRN IV NAUSEA AND/OR VOMITING Last administered on 07/05/17 09:31; Admin Dose 4 MG; Start 06/30/17 at 22:00 Hydralazine HCl (Apresoline) 10 mg Q6 PRN IV ELEVATED SYSTOLIC BP Last administered on 07/04/17 20:47; Admin Dose 10 MG; Start 06/30/17 at 22:00 Insulin Aspart (Novolog Insulin Pen) (Adult SC Insulin - Mild Algorithm)... Q6 SC Last administered on 07/07/17 17:26; Admin Dose 1 UNIT; Start 07/01/17 at 00:00 Cyclobenzaprine HCl (Flexeril) 10 mg BID PRN GTB Hiccups Last administered on 07/03/17 08:40; Admin Dose 10 MG; Start 07/01/17 at 22:00 Acetaminophen (Tylenol Liquid) 650 mg DAILY PRN GTB PAIN AND OR ELEVATED TEMP; Start 07/04/17 at 10:30 Amlodipine Besylate (Norvasc) 5 mg BID GTB Last administered on 07/08/17 21: 09; Admin Dose 5 MG; Start 07/04/17 at 21:00 Ascorbic Acid (Vitamin C) 500 mg DAILY GTB Last administered on 07/09/17 09: 37; Admin Dose 500 MG; Start 07/05/17 at 09:00 Bisacodyl (Dulcolax Supp) 10 mg Q24H [place] Last administered on 07/08/17 13:11; Admin Dose 10 MG; Start 07/04/17 at 10:30 Clonidine (Catapres) 0.2 mg DAILY GTB Last administered on 07/08/17 09:54; Admin Dose 0.2 MG; Start 07/05/17 at 09:00 Diphenhydramine HCl (Benadryl) 25 mg Q6H PRN GTB ITCHING Last administered on 07/07/17 23:31; Admin Dose 25 MG; Start 07/04/17 at 10:30 Hydralazine HCl (Apresoline) 50 mg Q6H PRN PO ELEVATED BLOOD PRESSURE; Start 07/04/17 at 10:30 Insulin Glargine (Lantus) 18 unit QHS SC Last administered on 07/08/17 21:09 ; Admin Dose 18 UNIT; Start 07/04/17 at 21:00 Lansoprazole (Prevacid) 30 mg BID GTB Last administered on 07/09/17 09:36; Admin Dose 30 MG; Start 07/04/17 at 21:00 Nitroglycerin (Nitroglycerin (Sl Tab) 0.4 Mg) 0.4 tab [id number] PRN SL CHEST PAIN; Start 07/04/17 at 10:30 Tamsulosin HCl (Flomax) 0.4 mg DAILY PO ; Start 07/05/17 at 09:00 Zinc Sulfate (Zinc Sulfate) 220 mg DAILY GTB Last administered on 07/09/17 09 :37; Admin Dose 220 MG; Start 07/05/17 at 09:00 Docusate Sodium (Colace Liquid Cup) 200 mg QHS PRN GTB CONSTIPATION Last administered on 07/07/17 20:24; Admin Dose 200 MG; Start 07/04/17 at 10:37 Miscellaneous Information 1 ea NOTE XX ; Start 07/04/17 at 11:00 Glucose (Glutose) 15 gm Q15M PRN PO DECREASED GLUCOSE; Start 07/04/17 at 11:00 Glucose (Glutose) 22.5 gm Q15M PRN PO DECREASED GLUCOSE; Start 07/04/17 at 11: 00 Dextrose (D50w Syringe) 25 ml Q15M PRN IV DECREASED GLUCOSE; Start 07/04/17 at 11:00 Dextrose (D50w Syringe) 50 ml Q15M PRN IV DECREASED GLUCOSE; Start 07/04/17 at 11:00 Glucagon (Glucagen) 1 mg Q15M PRN IM DECREASED GLUCOSE; Start 07/04/17 at 11: 00 Glucose 15 gm 15 gm Q15M PRN BUCCAL DECREASED GLUCOSE; Start 07/04/17 at 11:00 Meropenem/Sodium Chloride (Merrem 500mg/50 ml(Pmx)) 50 ml @ 100 mls/hr Q24H IVPB Last administered on 07/08/17 21:08; Admin Dose 100 MLS/HR; Start 07/05 at 21:00 Famotidine (Pepcid) 10 mg DAILY GTB Last administered on 07/09/17 09:36; Admin Dose 10 MG; Start 07/08/17 at 09:00 Assessment/Plan Chief Complaint/Hosp Course SUBJECTIVE: No acute changes. In HD, noncommunicative, no fevers, nad INDWELLINGS: Right chest PermCath, PEG, Flores. MICROBIOLOGY: Urine culture on admission grew E. coli. Blood cultures have been negative. ANTIMICROBIALS: Merrem ==> abx #10. PHYSICAL EXAMINATION: GENERAL: This is a chronically ill-appearing, elderly man who is in no distress. HEENT: Head atraumatic, normocephalic. Sclerae anicteric. Buccal mucosa dry. NECK: Supple. CHEST: Rise symmetrical. Breath sounds diminished to bases. HEART: S1, S2. ABDOMEN: Soft, bowel tones present. EXTREMITIES: Without cyanosis. ASSESSMENT: 1. Resolving sepsis. 2. Healthcare-associated pneumonia, possibly aspiration. 3. Urinary tract infection. 4. End-stage renal disease. 5. Dysphagia. 6. Encephalopathy. 7. Diabetes. PLAN: The patient remains stable, completing antibiotics, continue HD per renal , aspiration precautions. Dw staff Problems: KAYLA CASTREJON NP Jul 09, 2017 14:27
--- NOTE | 2017-07-09 17:24 | PN ---
Date/Time of Note Date/Time of Note DATE: 07/09/17 TIME: 17:21 Assessment/Plan Lines/Catheters IV Catheter Type (from [email or web address] Peripheral IV Flores in Place (from [facility] [[email or web address] Yes Assessment/Plan Chief Complaint/Hosp Course 1. Cholelithiasis with Negative HIDA (no acute cholecystitis); no abdominal pain /tenderness -no lap avery: previously discussed with family and patient-wanting to manage conservatively at this point -pain management 2. UTI: -abx per sensitivity -frequent bladder emptying/cath care 3. Leukocytosis: likely 2/2 #2, ? 1, ? other, normalized -as above -monitor 4. Anemia: no acute bleed noted -monitor -transfuse as needed 5. ESRD on HD -HD per renal -avoid/limit nephrotoxic meds -judicious fluids -renally dose meds 6. Electrolyte imbalance: -optimize lytes 7. Elevated LFT: -as above 8. Hypoalbuminemia: multifactorial -optimize nutrition as able -management of infection/inflammation 9. Dysphagia with feeding tube: on tube feeds -continue tf with aspiration precautions Thank you. Patient seen and examined in collaboration with Dr. Abraham Bojorquez. Problems: Subjective 24 Hr Interval Summary Pending discharge - awaiting bed. Tolerating feeding. +bowel function. No fevers , chills, sob, congested cough, cp, palpitations, hernandez, dizziness, n/v/d/dysuria. Exam/Review of Systems Vital Signs Vitals Vital Signs Date Time Temp Pulse Resp B/P Pulse Ox O2 Delivery O2 Flow Rate FiO2 07/09/17 15:45 132/66 07/09/17 15:32 98.3 95 17 100 Intake and Output 07/08/17 07/08/17 07/09/17 15:00 23:00 07:00 Intake Total 1160 ml 600 ml Output Total 300 ml 400 ml Balance 860 ml 200 ml Exam Free Text/Dictation Constitutional: alert, oriented, responsive Head: atraumatic, normocephalic Eyes: nl lids, nl sclera ENMT: mucosa pink and moist, nl nasal mucosa & septum Neck: non-tender, supple Respiratory: normal air movement, No labored breathing Cardiovascular: regular rate and rhythm Gastrointestinal: non-tender, other (peg), soft Genitourinary - Male: nl penis, nl scrotum Musculoskeletal: nl extremities to inspection Extremities: normal pulses Neurological: No nl mental status, No nl speech (delayed) Skin: nl turgor Results Result Diagram: 07/07/17 0536 07/07/17 0536 SUSSY PAL NP Jul 09, 2017 17:24
[2017-07-09] MEDS: MEROPENEM 500MG/50 ML (PMX) 50 ML IVPB SCH (22:08)
[2017-07-09] MEDS: INSULIN GLARGINE [LANtus] 3 ML PEN SC SCH (22:11)
[2017-07-10 02:00] VITALS: BP 153/78; RESP 19
[2017-07-10 05:59] LABS: BASOPHIL # 0.1 10^3/ul (0.0-0.1); BASOPHILS % 0.5 % (0.0-2.0); EOSINOPHILS # 0.5 10^3/ul (0.0-0.5); HEMOGLOBIN 11.1 g/dl (14.0-18.0); LYMPHOCYTES # 2.1 10^3/ul (0.8-2.9); MEAN CORPUSCULAR HEMOGLOBIN 29.8 pg (29.0-33.0); MEAN CORPUSCULAR HGB CONC 32.6 g/dl (32.0-37.0); MEAN CORPUSCULAR VOLUME 91.2 fl (82.0-101.0); MEAN PLATELET VOLUME 10.6 fl (7.4-10.4); MONOCYTE # 0.8 10^3/ul (0.3-0.9); MONOCYTES % 5.9 % (0.0-11.0); NEUTROPHIL # 9.7 10^3/ul (1.6-7.5); PLATELET COUNT 389 10^3/UL (140-415); RED BLOOD COUNT 3.73 10^6/ul (4.70-6.10); RED CELL DISTRIBUTION WIDTH 14.4 % (11.5-14.5); WHITE BLOOD COUNT 13.3 10^3/ul (4.8-10.8)
[2017-07-10] MEDS: Insulin NOVOLOG SS MILD Algorithm (NPO/TPN/ENTERAL FEEDS) SC SCH ×3 (06:15→17:22)
[2017-07-10 07:10] LABS: CALCIUM 8.5 mg/dl (8.4-10.2); CREATININE 3.2 mg/dl (0.61-1.24)
[2017-07-10 07:41] VITALS: BP 166/77; RESP 18
[2017-07-10] MEDS: LANSOPRAZOLE 30 MG CAP GTB SCH ×2 (08:02→21:06)
[2017-07-10] MEDS: ZINC SULFATE 220 MG CAP GTB SCH (08:02)
[2017-07-10] MEDS: FAMOTIDINE 20 MG TAB GTB SCH (08:03)
[2017-07-10] MEDS: BALSAM PERU/CASTOR OIL 60 GM TUBE TOP SCH ×2 (08:03→21:07)
[2017-07-10] MEDS: ASCORBIC ACID 500 MG TAB GTB SCH (08:04)
[2017-07-10] MEDS: AMLODIPINE 5 MG TAB GTB SCH ×2 (08:04→21:07)
--- NOTE | 2017-07-10 10:31 | CONS ---
Date/Time of Note Date/Time of Note DATE: 07/10/17 TIME: 10:31 Assessment/Plan Assessment/Plan Chief Complaint/Hosp Course 1. Sepsis, better. 2. Pneumonia. 3. The patient has cholecystitis. 4. G tube status 5. Anemia. 6. Chronic kidney disease 5. 7. ESRD Problems: Additional Assessment/Plan 1. Primary has d/c planning 2. Continue HD outpatient Consultation Date/Type/Reason Admit Date/Time Jun 30, 2017 at 19:01 Initial Consult Date 07/01/17 Type of Consultation: nephrology Reason for Consultation Dr Cheema Referring Provider: KE JAVED MD 24 HR Interval Summary Constitutional: disoriented, poor po Exam/Review of Systems Vital Signs Vitals Vital Signs Date Time Temp Pulse Resp B/P Pulse Ox O2 Delivery O2 Flow Rate FiO2 07/10/17 07:41 98.3 99 18 166/77 99 Intake and Output 07/09/17 07/09/17 07/10/17 14:59 22:59 06:59 Intake Total 500 ml 610 ml 1980 ml Output Total 1000 ml 350 ml 800 ml Balance -500 ml 260 ml 1180 ml Exam Constitutional: frail Eyes: nl conjunctiva ENMT: nl external ears & nose Gastrointestinal: other (g tube), soft Neurological: confused Results Result Diagram: 07/10/17 0547 07/10/17 0547 Results 24 hrs Laboratory Tests Test 07/09/17 12:14 07/09/17 18:05 07/09/17 23:50 07/10/17 05:47 Bedside Glucose 128 153 174 White Blood Count 13.3 #H Red Blood Count 3.73 L Hemoglobin 11.1 L Hematocrit 34.0 L Mean Corpuscular Volume 91.2 Mean Corpuscular Hemoglobin 29.8 Mean Corpuscular Hemoglobin Concent 32.6 Red Cell Distribution Width 14.4 Platelet Count 389 Mean Platelet Volume 10.6 H Neutrophils % 73.0 Lymphocytes % 16.0 Monocytes % 5.9 Eosinophils % 4.0 Basophils % 0.5 Nucleated Red Blood Cells % 0.0 Neutrophils # 9.7 H Lymphocytes # 2.1 Monocytes # 0.8 Eosinophils # 0.5 Basophils # 0.1 Nucleated Red Blood Cells # 0.0 Sodium Level 136 Potassium Level 5.0 Chloride Level 103 Carbon Dioxide Level 24 Anion Gap 14 Blood Urea Nitrogen 37 H Creatinine 3.20 H Glucose Level 175 Calcium Level 8.5 Test 07/10/17 06:11 Bedside Glucose 160 Medications Medications Current Medications Miscellaneous Information [facility] TO DOSE ONCE XX ; Start 06/30/17 at 22: 00 Acetaminophen (Ofirmev 1000mg/ 100ml Iv) 100 ml @ 400 mls/hr Q6H PRN IVPB PAIN /FEVER Last administered on 06/30/17 23:53; Admin Dose 400 MLS/HR; Start at 22:00 Morphine Sulfate (morphine) 2 mg Q4H PRN IV PAIN; Start 06/30/17 at 22:00 Ondansetron HCl (Zofran Inj) 4 mg Q6H PRN IV NAUSEA AND/OR VOMITING Last administered on 07/05/17 09:31; Admin Dose 4 MG; Start 06/30/17 at 22:00 Hydralazine HCl (Apresoline) 10 mg Q6 PRN IV ELEVATED SYSTOLIC BP Last administered on 07/04/17 20:47; Admin Dose 10 MG; Start 06/30/17 at 22:00 Insulin Aspart (Novolog Insulin Pen) (Adult SC Insulin - Mild Algorithm)... Q6 SC Last administered on 07/10/17 06:15; Admin Dose 1 UNIT; Start 07/01/17 at 00:00 Cyclobenzaprine HCl (Flexeril) 10 mg BID PRN GTB Hiccups Last administered on 07/03/17 08:40; Admin Dose 10 MG; Start 07/01/17 at 22:00 Acetaminophen (Tylenol Liquid) 650 mg DAILY PRN GTB PAIN AND OR ELEVATED TEMP; Start 07/04/17 at 10:30 Amlodipine Besylate (Norvasc) 5 mg BID GTB Last administered on 07/10/17 08: 04; Admin Dose 5 MG; Start 07/04/17 at 21:00 Ascorbic Acid (Vitamin C) 500 mg DAILY GTB Last administered on 07/10/17 08: 04; Admin Dose 500 MG; Start 07/05/17 at 09:00 Bisacodyl (Dulcolax Supp) 10 mg Q24H [place] Last administered on 07/08/17 13:11; Admin Dose 10 MG; Start 07/04/17 at 10:30 Clonidine (Catapres) 0.2 mg DAILY GTB Last administered on 07/10/17 08:03; Admin Dose 0.2 MG; Start 07/05/17 at 09:00 Diphenhydramine HCl (Benadryl) 25 mg Q6H PRN GTB ITCHING Last administered on 07/07/17 23:31; Admin Dose 25 MG; Start 07/04/17 at 10:30 Hydralazine HCl (Apresoline) 50 mg Q6H PRN PO ELEVATED BLOOD PRESSURE; Start 07/04/17 at 10:30 Insulin Glargine (Lantus) 18 unit QHS SC Last administered on 07/09/17 22:11 ; Admin Dose 18 UNIT; Start 07/04/17 at 21:00 Lansoprazole (Prevacid) 30 mg BID GTB Last administered on 07/10/17 08:02; Admin Dose 30 MG; Start 07/04/17 at 21:00 Nitroglycerin (Nitroglycerin (Sl Tab) 0.4 Mg) 0.4 tab [id number] PRN SL CHEST PAIN; Start 07/04/17 at 10:30 Tamsulosin HCl (Flomax) 0.4 mg DAILY PO ; Start 07/05/17 at 09:00 Zinc Sulfate (Zinc Sulfate) 220 mg DAILY GTB Last administered on 07/10/17 08 :02; Admin Dose 220 MG; Start 07/05/17 at 09:00 Docusate Sodium (Colace Liquid Cup) 200 mg QHS PRN GTB CONSTIPATION Last administered on 07/07/17 20:24; Admin Dose 200 MG; Start 07/04/17 at 10:37 Miscellaneous Information 1 ea NOTE XX ; Start 07/04/17 at 11:00 Glucose (Glutose) 15 gm Q15M PRN PO DECREASED GLUCOSE; Start 07/04/17 at 11:00 Glucose (Glutose) 22.5 gm Q15M PRN PO DECREASED GLUCOSE; Start 07/04/17 at 11: 00 Dextrose (D50w Syringe) 25 ml Q15M PRN IV DECREASED GLUCOSE; Start 07/04/17 at 11:00 Dextrose (D50w Syringe) 50 ml Q15M PRN IV DECREASED GLUCOSE; Start 07/04/17 at 11:00 Glucagon (Glucagen) 1 mg Q15M PRN IM DECREASED GLUCOSE; Start 07/04/17 at 11: 00 Glucose 15 gm 15 gm Q15M PRN BUCCAL DECREASED GLUCOSE; Start 07/04/17 at 11:00 Meropenem/Sodium Chloride (Merrem 500mg/50 ml(Pmx)) 50 ml @ 100 mls/hr Q24H IVPB Last administered on 07/09/17 22:08; Admin Dose 100 MLS/HR; Start 07/05 at 21:00 Famotidine (Pepcid) 10 mg DAILY GTB Last administered on 07/10/17 08:03; Admin Dose 10 MG; Start 07/08/17 at 09:00 CHELSIE HERNÁNDEZ Jul 10, 2017 10:31
[2017-07-10] MEDS: BISACODYL 10 MG SUPP PR SCH (11:31)
--- NOTE | 2017-07-10 11:54 | PN ---
Date/Time of Note Date/Time of Note DATE: 07/10/17 TIME: 11:53 Assessment/Plan VTE Prophylaxis VTE Prophylaxis Intervention: other Lines/Catheters [facility] [place] Urinary Cath still in place: Yes Reason Cath still needed: urinary retention Assessment/Plan Assessment/Plan - Possible acute cholecystitis, continue abx. Dr. Bojorquez is following in general surgery consultation. Family prefer to manage conservatively versus surgery. - E. coli UTI, continue meropenem. - Acute kidney injury on chronic kidney disease. Continue hemodialysis per renal. Dr. Cheema is following in nephrology consultation. - History of cerebrovascular accident - Diabetes mellitus. Continue Lantus and NovoLog. - Diastolic congestive heart failure. Continue to monitor intake and output. - Paroxysmal atrial fibrillation, currently in sinus rhythm. - Hypertension. - Hyperlipidemia. - Dysphagia with G-tube. Further recommendations based on clinical course. Plan of care discussed with Dr. Patel Subjective 24 Hr Interval Summary Free Text/Dictation nad, afebrile, lethargic. WBC up- hold transfer- staff Exam/Review of Systems Vital Signs Vitals Vital Signs Date Time Temp Pulse Resp B/P Pulse Ox O2 Delivery O2 Flow Rate FiO2 07/10/17 07:41 98.3 99 18 166/77 99 Intake and Output 07/09/17 07/09/17 07/10/17 15:00 23:00 07:00 Intake Total 500 ml 610 ml 1980 ml Output Total 1000 ml 350 ml 800 ml Balance -500 ml 260 ml 1180 ml Exam Constitutional: alert Cardiovascular: nl pulses, other (s1s2) Gastrointestinal: non-tender, other, soft Musculoskeletal: nl extremities to inspection Extremities: normal pulses Neurological: confused Results Result Diagram: 07/10/17 0547 07/10/17 0547 Results 24 hrs Laboratory Tests Test 07/09/17 12:14 07/09/17 18:05 07/09/17 23:50 07/10/17 05:47 Bedside Glucose 128 153 174 White Blood Count 13.3 #H Red Blood Count 3.73 L Hemoglobin 11.1 L Hematocrit 34.0 L Mean Corpuscular Volume 91.2 Mean Corpuscular Hemoglobin 29.8 Mean Corpuscular Hemoglobin Concent 32.6 Red Cell Distribution Width 14.4 Platelet Count 389 Mean Platelet Volume 10.6 H Neutrophils % 73.0 Lymphocytes % 16.0 Monocytes % 5.9 Eosinophils % 4.0 Basophils % 0.5 Nucleated Red Blood Cells % 0.0 Neutrophils # 9.7 H Lymphocytes # 2.1 Monocytes # 0.8 Eosinophils # 0.5 Basophils # 0.1 Nucleated Red Blood Cells # 0.0 Sodium Level 136 Potassium Level 5.0 Chloride Level 103 Carbon Dioxide Level 24 Anion Gap 14 Blood Urea Nitrogen 37 H Creatinine 3.20 H Glucose Level 175 Calcium Level 8.5 Test 07/10/17 06:11 07/10/17 11:47 Bedside Glucose 160 162 Medications Medications Current Medications Miscellaneous Information [facility] TO DOSE ONCE XX ; Start 06/30/17 at 22: 00 Acetaminophen (Ofirmev 1000mg/ 100ml Iv) 100 ml @ 400 mls/hr Q6H PRN IVPB PAIN /FEVER Last administered on 06/30/17 23:53; Admin Dose 400 MLS/HR; Start at 22:00 Morphine Sulfate (morphine) 2 mg Q4H PRN IV PAIN; Start 06/30/17 at 22:00 Ondansetron HCl (Zofran Inj) 4 mg Q6H PRN IV NAUSEA AND/OR VOMITING Last administered on 07/05/17 09:31; Admin Dose 4 MG; Start 06/30/17 at 22:00 Hydralazine HCl (Apresoline) 10 mg Q6 PRN IV ELEVATED SYSTOLIC BP Last administered on 07/04/17 20:47; Admin Dose 10 MG; Start 06/30/17 at 22:00 Insulin Aspart (Novolog Insulin Pen) (Adult SC Insulin - Mild Algorithm)... Q6 SC Last administered on 07/10/17 11:51; Admin Dose 1 UNIT; Start 07/01/17 at 00:00 Cyclobenzaprine HCl (Flexeril) 10 mg BID PRN GTB Hiccups Last administered on 07/03/17 08:40; Admin Dose 10 MG; Start 07/01/17 at 22:00 Acetaminophen (Tylenol Liquid) 650 mg DAILY PRN GTB PAIN AND OR ELEVATED TEMP; Start 07/04/17 at 10:30 Amlodipine Besylate (Norvasc) 5 mg BID GTB Last administered on 07/10/17 08: 04; Admin Dose 5 MG; Start 07/04/17 at 21:00 Ascorbic Acid (Vitamin C) 500 mg DAILY GTB Last administered on 07/10/17 08: 04; Admin Dose 500 MG; Start 07/05/17 at 09:00 Bisacodyl (Dulcolax Supp) 10 mg Q24H [place] Last administered on 07/10/17 11:31; Admin Dose 10 MG; Start 07/04/17 at 10:30 Clonidine (Catapres) 0.2 mg DAILY GTB Last administered on 07/10/17 08:03; Admin Dose 0.2 MG; Start 07/05/17 at 09:00 Diphenhydramine HCl (Benadryl) 25 mg Q6H PRN GTB ITCHING Last administered on 07/07/17 23:31; Admin Dose 25 MG; Start 07/04/17 at 10:30 Hydralazine HCl (Apresoline) 50 mg Q6H PRN PO ELEVATED BLOOD PRESSURE; Start 07/04/17 at 10:30 Insulin Glargine (Lantus) 18 unit QHS SC Last administered on 07/09/17 22:11 ; Admin Dose 18 UNIT; Start 07/04/17 at 21:00 Lansoprazole (Prevacid) 30 mg BID GTB Last administered on 07/10/17 08:02; Admin Dose 30 MG; Start 07/04/17 at 21:00 Nitroglycerin (Nitroglycerin (Sl Tab) 0.4 Mg) 0.4 tab [id number] PRN SL CHEST PAIN; Start 07/04/17 at 10:30 Tamsulosin HCl (Flomax) 0.4 mg DAILY PO ; Start 07/05/17 at 09:00 Zinc Sulfate (Zinc Sulfate) 220 mg DAILY GTB Last administered on 07/10/17 08 :02; Admin Dose 220 MG; Start 07/05/17 at 09:00 Docusate Sodium (Colace Liquid Cup) 200 mg QHS PRN GTB CONSTIPATION Last administered on 07/07/17 20:24; Admin Dose 200 MG; Start 07/04/17 at 10:37 Miscellaneous Information 1 ea NOTE XX ; Start 07/04/17 at 11:00 Glucose (Glutose) 15 gm Q15M PRN PO DECREASED GLUCOSE; Start 07/04/17 at 11:00 Glucose (Glutose) 22.5 gm Q15M PRN PO DECREASED GLUCOSE; Start 07/04/17 at 11: 00 Dextrose (D50w Syringe) 25 ml Q15M PRN IV DECREASED GLUCOSE; Start 07/04/17 at 11:00 Dextrose (D50w Syringe) 50 ml Q15M PRN IV DECREASED GLUCOSE; Start 07/04/17 at 11:00 Glucagon (Glucagen) 1 mg Q15M PRN IM DECREASED GLUCOSE; Start 07/04/17 at 11: 00 Glucose 15 gm 15 gm Q15M PRN BUCCAL DECREASED GLUCOSE; Start 07/04/17 at 11:00 Meropenem/Sodium Chloride (Merrem 500mg/50 ml(Pmx)) 50 ml @ 100 mls/hr Q24H IVPB Last administered on 07/09/17 22:08; Admin Dose 100 MLS/HR; Start 07/05 at 21:00 Famotidine (Pepcid) 10 mg DAILY GTB Last administered on 07/10/17 08:03; Admin Dose 10 MG; Start 07/08/17 at 09:00 MARCY WEINER Jul 10, 2017 11:54
--- NOTE | 2017-07-10 15:23 | PN ---
Date/Time of Note Date/Time of Note DATE: 07/10/17 TIME: 15:21 Assessment/Plan Lines/Catheters IV Catheter Type (from [facility]): permacath Flores in Place (from [facility]): Yes Assessment/Plan Chief Complaint/Hosp Course 1. Cholelithiasis with Negative HIDA (no acute cholecystitis); no abdominal pain /tenderness -no lap avery: previously discussed with family and patient-wanting to manage conservatively at this point -pain management 2. UTI: -abx per sensitivity -frequent bladder emptying/cath care 3. Leukocytosis: likely 2/2 #2, ? 1, ? other -as above -monitor -? kelly cx 4. Anemia: no acute bleed noted -monitor -transfuse as needed 5. ESRD on HD -HD per renal -avoid/limit nephrotoxic meds -judicious fluids -renally dose meds 6. Electrolyte imbalance: -optimize lytes 7. Elevated LFT: -as above 8. Hypoalbuminemia: multifactorial -optimize nutrition as able -management of infection/inflammation 9. Dysphagia with feeding tube: on tube feeds -continue tf with aspiration precautions Thank you Problems: Subjective 24 Hr Interval Summary WBC. Tolerating feeding. +bowel function. No fevers, chills, sob, congested cough, cp, palpitations, hernandez, dizziness, n/v/d/dysuria. Exam/Review of Systems Vital Signs Vitals Vital Signs Date Time Temp Pulse Resp B/P Pulse Ox O2 Delivery O2 Flow Rate FiO2 07/10/17 07:41 98.3 99 18 166/77 99 Intake and Output 07/09/17 07/09/17 07/10/17 15:00 23:00 07:00 Intake Total 500 ml 610 ml 1980 ml Output Total 1000 ml 350 ml 800 ml Balance -500 ml 260 ml 1180 ml Exam Free Text/Dictation Constitutional: alert, oriented, responsive Head: atraumatic, normocephalic Eyes: nl lids, nl sclera ENMT: mucosa pink and moist, nl nasal mucosa & septum Neck: non-tender, supple Respiratory: normal air movement, No labored breathing Cardiovascular: regular rate and rhythm Gastrointestinal: non-tender, other (peg), soft Genitourinary - Male: nl penis, nl scrotum Musculoskeletal: nl extremities to inspection Extremities: normal pulses Neurological: No nl mental status, No nl speech (delayed) Skin: nl turgor Results Result Diagram: 07/10/17 0547 07/10/17 0547 LIZ PARKER MD Jul 10, 2017 15:23
--- NOTE | 2017-07-10 17:50 | CONS ---
Date/Time of Note Date/Time of Note DATE: 07/10/17 TIME: 17:35 Assessment/Plan Assessment/Plan Chief Complaint/Hosp Course .ID PROGRESS NOTE ABX DAY #11=> Merrem 24H INTERVAL SUMMARY * A/A/ responsive, requesting bed pain for stool, no fevers,-- no new issues -- frail, debilitated, moves extremities, VSS, NAD * Chart reviewed, WBC 13 PHYSICAL EXAMINATION: GENERAL: Thin appearing debilitated M, calm, looks comfortable HEENT: Unremarkable, missing dentition NECK: Trach-> midline, neck supple CHEST: Equal chest rise bilaterally, without dyspnea on observation ABDOMEN: Soft, peg EXTREMITIES: Warm, atrophy & cachexia SKIN: Warm, dry ID ASSESSMENT: 71 yo M w/PMHx CVA w/LE weakness, dementia, dysphagia admitted with: 1. SIRS w/persistent leukocytosis, toxic metabolic encephalopathy => Resolving * Blood Cx (-) * CT ABD (+) patchy bilateral opacities ?infiltrates 2. Recurrent GNR Urinary tract infection-> 2/2 neurogenic bladder w/retention * 06/29/17 URINE CULTURE Final Organism 1 ESCHERICHIA COLI COLONY COUNT >100,000 CFU/ml 3. Dysphagia, status post PEG. 4. HCAP w/CXR 06/30/17: Patchy bibasilar air space disease which may represent infiltrates. * s/p prior admissions MAR 2017 Aspiration PNA w/residual bronchiolitis recent admission 5. Cholelithiasis with Negative HIDA (no acute cholecystitis); no abdominal pain/tenderness-> plan conservative Tx w/pain management 6. Acute on chronic kidney disease. 7. HTN 8. DMII 9. Afib 10. 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 Hx of hip surgery 13. Sacral decub II, heel decub 14. Hx of C.Diff colitis (-)MRSA Nares INVASIVES: Peg, FC, PIV R-AC ABX ALLERGIES: NKDA CURRENT ABX: ABX DAY #11 =>Merrem ID RECOMMENDATIONS: 1. Continue ABX over the weekend 2. ID team will continue to follow. . Problems: Consultation Date/Type/Reason Admit Date/Time Jun 30, 2017 at 19:01 Initial Consult Date 07/01/17 Referring Provider: KE JAVED MD Exam/Review of Systems Vital Signs Vitals Vital Signs Date Time Temp Pulse Resp B/P Pulse Ox O2 Delivery O2 Flow Rate FiO2 07/10/17 07:41 98.3 99 18 166/77 99 Intake and Output 07/09/17 07/09/17 07/10/17 14:59 22:59 06:59 Intake Total 500 ml 610 ml 1980 ml Output Total 1000 ml 350 ml 800 ml Balance -500 ml 260 ml 1180 ml Results Result Diagram: 07/10/17 0547 07/10/17 0547 Results 24 hrs Laboratory Tests Test 07/09/17 18:05 07/09/17 23:50 07/10/17 05:47 07/10/17 06:11 Bedside Glucose 153 174 160 White Blood Count 13.3 #H Red Blood Count 3.73 L Hemoglobin 11.1 L Hematocrit 34.0 L Mean Corpuscular Volume 91.2 Mean Corpuscular Hemoglobin 29.8 Mean Corpuscular Hemoglobin Concent 32.6 Red Cell Distribution Width 14.4 Platelet Count 389 Mean Platelet Volume 10.6 H Neutrophils % 73.0 Lymphocytes % 16.0 Monocytes % 5.9 Eosinophils % 4.0 Basophils % 0.5 Nucleated Red Blood Cells % 0.0 Neutrophils # 9.7 H Lymphocytes # 2.1 Monocytes # 0.8 Eosinophils # 0.5 Basophils # 0.1 Nucleated Red Blood Cells # 0.0 Sodium Level 136 Potassium Level 5.0 Chloride Level 103 Carbon Dioxide Level 24 Anion Gap 14 Blood Urea Nitrogen 37 H Creatinine 3.20 H Glucose Level 175 Calcium Level 8.5 Test 07/10/17 11:47 07/10/17 17:22 Bedside Glucose 162 127 Medications Medications Current Medications Miscellaneous Information [facility] TO DOSE ONCE XX ; Start 06/30/17 at 22: 00 Acetaminophen (Ofirmev 1000mg/ 100ml Iv) 100 ml @ 400 mls/hr Q6H PRN IVPB PAIN /FEVER Last administered on 06/30/17 23:53; Admin Dose 400 MLS/HR; Start at 22:00 Morphine Sulfate (morphine) 2 mg Q4H PRN IV PAIN; Start 06/30/17 at 22:00 Ondansetron HCl (Zofran Inj) 4 mg Q6H PRN IV NAUSEA AND/OR VOMITING Last administered on 07/05/17 09:31; Admin Dose 4 MG; Start 06/30/17 at 22:00 Hydralazine HCl (Apresoline) 10 mg Q6 PRN IV ELEVATED SYSTOLIC BP Last administered on 07/04/17 20:47; Admin Dose 10 MG; Start 06/30/17 at 22:00 Insulin Aspart (Novolog Insulin Pen) (Adult SC Insulin - Mild Algorithm)... Q6 SC Last administered on 07/10/17 11:51; Admin Dose 1 UNIT; Start 07/01/17 at 00:00 Cyclobenzaprine HCl (Flexeril) 10 mg BID PRN GTB Hiccups Last administered on 07/03/17 08:40; Admin Dose 10 MG; Start 07/01/17 at 22:00 Acetaminophen (Tylenol Liquid) 650 mg DAILY PRN GTB PAIN AND OR ELEVATED TEMP; Start 07/04/17 at 10:30 Amlodipine Besylate (Norvasc) 5 mg BID GTB Last administered on 07/10/17 08: 04; Admin Dose 5 MG; Start 07/04/17 at 21:00 Ascorbic Acid (Vitamin C) 500 mg DAILY GTB Last administered on 07/10/17 08: 04; Admin Dose 500 MG; Start 07/05/17 at 09:00 Bisacodyl (Dulcolax Supp) 10 mg Q24H DC Last administered on 07/10/17 11:31; Admin Dose 10 MG; Start 07/04/17 at 10:30 Clonidine (Catapres) 0.2 mg DAILY GTB Last administered on 07/10/17 08:03; Admin Dose 0.2 MG; Start 07/05/17 at 09:00 Diphenhydramine HCl (Benadryl) 25 mg Q6H PRN GTB ITCHING Last administered on 07/07/17 23:31; Admin Dose 25 MG; Start 07/04/17 at 10:30 Hydralazine HCl (Apresoline) 50 mg Q6H PRN PO ELEVATED BLOOD PRESSURE; Start 07/04/17 at 10:30 Insulin Glargine (Lantus) 18 unit QHS SC Last administered on 07/09/17 22:11 ; Admin Dose 18 UNIT; Start 07/04/17 at 21:00 Lansoprazole (Prevacid) 30 mg BID GTB Last administered on 07/10/17 08:02; Admin Dose 30 MG; Start 07/04/17 at 21:00 Nitroglycerin (Nitroglycerin (Sl Tab) 0.4 Mg) 0.4 tab [id number] PRN SL CHEST PAIN; Start 07/04/17 at 10:30 Tamsulosin HCl (Flomax) 0.4 mg DAILY PO ; Start 07/05/17 at 09:00 Zinc Sulfate (Zinc Sulfate) 220 mg DAILY GTB Last administered on 07/10/17 08 :02; Admin Dose 220 MG; Start 07/05/17 at 09:00 Docusate Sodium (Colace Liquid Cup) 200 mg QHS PRN GTB CONSTIPATION Last administered on 07/07/17 20:24; Admin Dose 200 MG; Start 07/04/17 at 10:37 Miscellaneous Information 1 ea NOTE XX ; Start 07/04/17 at 11:00 Glucose (Glutose) 15 gm Q15M PRN PO DECREASED GLUCOSE; Start 07/04/17 at 11:00 Glucose (Glutose) 22.5 gm Q15M PRN PO DECREASED GLUCOSE; Start 07/04/17 at 11: 00 Dextrose (D50w Syringe) 25 ml Q15M PRN IV DECREASED GLUCOSE; Start 07/04/17 at 11:00 Dextrose (D50w Syringe) 50 ml Q15M PRN IV DECREASED GLUCOSE; Start 07/04/17 at 11:00 Glucagon (Glucagen) 1 mg Q15M PRN IM DECREASED GLUCOSE; Start 07/04/17 at 11: 00 Glucose 15 gm 15 gm Q15M PRN BUCCAL DECREASED GLUCOSE; Start 07/04/17 at 11:00 Meropenem/Sodium Chloride (Merrem 500mg/50 ml(Pmx)) 50 ml @ 100 mls/hr Q24H IVPB Last administered on 07/09/17 22:08; Admin Dose 100 MLS/HR; Start 07/05 at 21:00 Famotidine (Pepcid) 10 mg DAILY GTB Last administered on 07/10/17 08:03; Admin Dose 10 MG; Start 07/08/17 at 09:00 ANNE-MARIE PRAKASH NP Jul 10, 2017 17:48
[2017-07-10 20:00] VITALS: BP 147/70; RESP 18
[2017-07-10] MEDS: MEROPENEM 500MG/50 ML (PMX) 50 ML IVPB SCH (21:07)
[2017-07-10] MEDS: INSULIN GLARGINE [LANtus] 3 ML PEN SC SCH (21:12)
[2017-07-11] MEDS: Insulin NOVOLOG SS MILD Algorithm (NPO/TPN/ENTERAL FEEDS) SC SCH ×4 (01:16→17:27)
[2017-07-11 03:40] VITALS: BP 130/71; RESP 21
[2017-07-11 06:33] LABS: BASOPHIL # 0.1 10^3/ul (0.0-0.1); BASOPHILS % 0.7 % (0.0-2.0); EOSINOPHILS # 0.6 10^3/ul (0.0-0.5); EOSINOPHILS % 4.6 % (0.0-7.0); HEMATOCRIT 33.1 % (42.0-52.0); HEMOGLOBIN 10.7 g/dl (14.0-18.0); LYMPHOCYTES # 1.8 10^3/ul (0.8-2.9); LYMPHOCYTES % 13.4 % (15.0-51.0); MEAN CORPUSCULAR HEMOGLOBIN 29.4 pg (29.0-33.0); MEAN CORPUSCULAR HGB CONC 32.3 g/dl (32.0-37.0); MEAN CORPUSCULAR VOLUME 90.9 fl (82.0-101.0); MONOCYTE # 0.8 10^3/ul (0.3-0.9); NEUTROPHIL # 9.9 10^3/ul (1.6-7.5); NEUTROPHILS % 74.8 % (39.0-77.0); PLATELET COUNT 378 10^3/UL (140-415); RED BLOOD COUNT 3.64 10^6/ul (4.70-6.10); RED CELL DISTRIBUTION WIDTH 13.9 % (11.5-14.5); WHITE BLOOD COUNT 13.3 10^3/ul (4.8-10.8)
[2017-07-11 06:53] LABS: CALCIUM 8.8 mg/dl (8.4-10.2); CREATININE 4.09 mg/dl (0.61-1.24)
[2017-07-11 08:21] VITALS: BP 136/100; RESP 17
[2017-07-11] MEDS: DIPHENHYDRAMINE 25 MG CAP GTB PRN ×2 (08:52→20:49)
[2017-07-11] MEDS: LANSOPRAZOLE 30 MG CAP GTB SCH ×2 (08:52→20:49)
[2017-07-11] MEDS: ZINC SULFATE 220 MG CAP GTB SCH (08:52)
[2017-07-11] MEDS: ASCORBIC ACID 500 MG TAB GTB SCH (08:52)
[2017-07-11] MEDS: FAMOTIDINE 20 MG TAB GTB SCH (08:52)
[2017-07-11] MEDS: AMLODIPINE 5 MG TAB GTB SCH ×2 (08:53→20:49)
--- NOTE | 2017-07-11 09:45 | CONS ---
Date/Time of Note Date/Time of Note DATE: 07/11/17 TIME: 09:44 Assessment/Plan Assessment/Plan Chief Complaint/Hosp Course 1. Sepsis, better. 2. Pneumonia. 3. The patient has cholecystitis. 4. G tube status 5. Anemia. 6. Chronic kidney disease 5. 7. ESRD Problems: Additional Assessment/Plan 1. continue HD 2. continue treatment Consultation Date/Type/Reason Admit Date/Time Jun 30, 2017 at 19:01 Initial Consult Date 07/01/17 Type of Consultation: nephrology Reason for Consultation Dr Cheema Referring Provider: KE JAVED MD Exam/Review of Systems Vital Signs Vitals Vital Signs Date Time Temp Pulse Resp B/P Pulse Ox O2 Delivery O2 Flow Rate FiO2 07/11/17 08:21 98.2 93 17 136/100 100 Intake and Output 07/10/17 07/10/17 07/11/17 15:00 23:00 07:00 Intake Total 150 ml 650 ml 680 ml Output Total 500 ml 450 ml Balance 150 ml 150 ml 230 ml Exam Constitutional: frail Head: normocephalic Eyes: nl conjunctiva Neck: supple Respiratory: diminished breath sounds Cardiovascular: nl pulses Gastrointestinal: other (G tube), soft, surgical scars Neurological: confused Results Result Diagram: 07/11/17 0600 07/11/17 0555 Results 24 hrs Laboratory Tests Test 07/10/17 11:47 07/10/17 17:22 07/10/17 21:06 07/11/17 00:11 Bedside Glucose 162 127 176 147 Test 07/11/17 01:14 07/11/17 05:40 07/11/17 05:55 07/11/17 06:00 Bedside Glucose 160 Erythrocyte Sedimentation Rate 99 H Sodium Level 140 Potassium Level 4.0 Chloride Level 103 Carbon Dioxide Level 28 Anion Gap 13 Blood Urea Nitrogen 57 H Creatinine 4.09 H Glucose Level 132 # Calcium Level 8.8 C-Reactive Protein 1.6 H White Blood Count 13.3 H Red Blood Count 3.64 L Hemoglobin 10.7 L Hematocrit 33.1 L Mean Corpuscular Volume 90.9 Mean Corpuscular Hemoglobin 29.4 Mean Corpuscular Hemoglobin Concent 32.3 Red Cell Distribution Width 13.9 Platelet Count 378 Mean Platelet Volume 11.0 H Neutrophils % 74.8 Lymphocytes % 13.4 L Monocytes % 6.0 Eosinophils % 4.6 Basophils % 0.7 Nucleated Red Blood Cells % 0.0 Neutrophils # 9.9 H Lymphocytes # 1.8 Monocytes # 0.8 Eosinophils # 0.6 H Basophils # 0.1 Nucleated Red Blood Cells # 0.0 Test 07/11/17 06:23 Bedside Glucose 134 Medications Medications Current Medications Miscellaneous Information [facility] TO DOSE ONCE XX ; Start 06/30/17 at 22: 00 Acetaminophen (Ofirmev 1000mg/ 100ml Iv) 100 ml @ 400 mls/hr Q6H PRN IVPB PAIN /FEVER Last administered on 06/30/17 23:53; Admin Dose 400 MLS/HR; Start at 22:00 Morphine Sulfate (morphine) 2 mg Q4H PRN IV PAIN; Start 06/30/17 at 22:00 Ondansetron HCl (Zofran Inj) 4 mg Q6H PRN IV NAUSEA AND/OR VOMITING Last administered on 07/05/17 09:31; Admin Dose 4 MG; Start 06/30/17 at 22:00 Hydralazine HCl (Apresoline) 10 mg Q6 PRN IV ELEVATED SYSTOLIC BP Last administered on 07/04/17 20:47; Admin Dose 10 MG; Start 06/30/17 at 22:00 Insulin Aspart (Novolog Insulin Pen) (Adult SC Insulin - Mild Algorithm)... Q6 SC Last administered on 07/11/17 01:16; Admin Dose 1 UNIT; Start 07/01/17 at 00:00 Cyclobenzaprine HCl (Flexeril) 10 mg BID PRN GTB Hiccups Last administered on 07/03/17 08:40; Admin Dose 10 MG; Start 07/01/17 at 22:00 Acetaminophen (Tylenol Liquid) 650 mg DAILY PRN GTB PAIN AND OR ELEVATED TEMP; Start 07/04/17 at 10:30 Amlodipine Besylate (Norvasc) 5 mg BID GTB Last administered on 07/11/17 08: 53; Admin Dose 5 MG; Start 07/04/17 at 21:00 Ascorbic Acid (Vitamin C) 500 mg DAILY GTB Last administered on 07/11/17 08: 52; Admin Dose 500 MG; Start 07/05/17 at 09:00 Bisacodyl (Dulcolax Supp) 10 mg Q24H [place] Last administered on 07/10/17 11:31; Admin Dose 10 MG; Start 07/04/17 at 10:30 Clonidine (Catapres) 0.2 mg DAILY GTB Last administered on 07/11/17 08:53; Admin Dose 0.2 MG; Start 07/05/17 at 09:00 Diphenhydramine HCl (Benadryl) 25 mg Q6H PRN GTB ITCHING Last administered on 07/11/17 08:52; Admin Dose 25 MG; Start 07/04/17 at 10:30 Hydralazine HCl (Apresoline) 50 mg Q6H PRN PO ELEVATED BLOOD PRESSURE; Start 07/04/17 at 10:30 Insulin Glargine (Lantus) 18 unit QHS SC Last administered on 07/10/17 21:12 ; Admin Dose 18 UNIT; Start 07/04/17 at 21:00 Lansoprazole (Prevacid) 30 mg BID GTB Last administered on 07/11/17 08:52; Admin Dose 30 MG; Start 07/04/17 at 21:00 Nitroglycerin (Nitroglycerin (Sl Tab) 0.4 Mg) 0.4 tab [id number] PRN SL CHEST PAIN; Start 07/04/17 at 10:30 Tamsulosin HCl (Flomax) 0.4 mg DAILY PO ; Start 07/05/17 at 09:00 Zinc Sulfate (Zinc Sulfate) 220 mg DAILY GTB Last administered on 07/11/17 08 :52; Admin Dose 220 MG; Start 07/05/17 at 09:00 Docusate Sodium (Colace Liquid Cup) 200 mg QHS PRN GTB CONSTIPATION Last administered on 07/07/17 20:24; Admin Dose 200 MG; Start 07/04/17 at 10:37 Miscellaneous Information 1 ea NOTE XX ; Start 07/04/17 at 11:00 Glucose (Glutose) 15 gm Q15M PRN PO DECREASED GLUCOSE; Start 07/04/17 at 11:00 Glucose (Glutose) 22.5 gm Q15M PRN PO DECREASED GLUCOSE; Start 07/04/17 at 11: 00 Dextrose (D50w Syringe) 25 ml Q15M PRN IV DECREASED GLUCOSE; Start 07/04/17 at 11:00 Dextrose (D50w Syringe) 50 ml Q15M PRN IV DECREASED GLUCOSE; Start 07/04/17 at 11:00 Glucagon (Glucagen) 1 mg Q15M PRN IM DECREASED GLUCOSE; Start 07/04/17 at 11: 00 Glucose 15 gm 15 gm Q15M PRN BUCCAL DECREASED GLUCOSE; Start 07/04/17 at 11:00 Meropenem/Sodium Chloride (Merrem 500mg/50 ml(Pmx)) 50 ml @ 100 mls/hr Q24H IVPB Last administered on 07/10/17 21:07; Admin Dose 100 MLS/HR; Start 07/05 at 21:00 Famotidine (Pepcid) 10 mg DAILY GTB Last administered on 07/11/17 08:52; Admin Dose 10 MG; Start 07/08/17 at 09:00 CHELSIE HERNÁNDEZ Jul 11, 2017 09:45
--- NOTE | 2017-07-11 10:31 | RADRPT ---
PROCEDURE: XR Chest. CLINICAL INDICATION: Leukocytosis TECHNIQUE: Single frontal view of the chest was obtained COMPARISON: 06/30/2017 FINDINGS: Stable hemodialysis catheter with tip projecting over the right atrium. No pleural effusion or pneumothorax. No consolidation. Stable cardiac silhouette. Calcified aortic arch suggestive of chronic systemic hypertension. No acute osseous abnormality. IMPRESSION: No acute cardiopulmonary disease. RPTAT: EE Mary Villa Physician Date Time Electronically viewed and signed by Mary Villa Physician on 07/11/2017 10:31 /
[2017-07-11] MEDS: BISACODYL 10 MG SUPP PR SCH (11:32)
[2017-07-11] MEDS: BALSAM PERU/CASTOR OIL 60 GM TUBE TOP SCH ×2 (11:32→20:50)
--- NOTE | 2017-07-11 12:56 | PN ---
Date/Time of Note Date/Time of Note DATE: 07/11/17 TIME: 12:53 Assessment/Plan VTE Prophylaxis VTE Prophylaxis Intervention: other Lines/Catheters IV C[facility]ter Type (from [facility]): perma cath Urinary Cath still in place: Yes Reason Cath still needed: urinary retention Assessment/Plan Assessment/Plan -Leukocytosis-transfer on hold until WBCs are within normal - Possible acute cholecystitis, continue abx. Dr. Bojorquez is following in general surgery consultation. Family prefer to manage conservatively versus surgery. - E. coli UTI, continue meropenem. - Acute kidney injury on chronic kidney disease. Continue hemodialysis per renal. Dr. Cheema is following in nephrology consultation. - History of cerebrovascular accident - Diabetes mellitus. Continue Lantus and NovoLog. - Diastolic congestive heart failure. Continue to monitor intake and output. - Paroxysmal atrial fibrillation, currently in sinus rhythm. - Hypertension. - Hyperlipidemia. - Dysphagia with G-tube. Further recommendations based on clinical course. Plan of care discussed with Dr. Patel Subjective 24 Hr Interval Summary Free Text/Dictation resting, seems comfortable, wbc elevated, pending transfer - esr- 99 C- reactive protein -1.4 Exam/Review of Systems Vital Signs Vitals Vital Signs Date Time Temp Pulse Resp B/P Pulse Ox O2 Delivery O2 Flow Rate FiO2 07/11/17 08:21 98.2 93 17 136/100 100 Intake and Output 07/10/17 07/10/17 07/11/17 15:00 23:00 07:00 Intake Total 150 ml 650 ml 680 ml Output Total 500 ml 450 ml Balance 150 ml 150 ml 230 ml Exam Constitutional: alert Respiratory: diminished breath sounds, normal air movement Cardiovascular: nl pulses, other (s1s2) Gastrointestinal: non-tender, soft Musculoskeletal: nl extremities to inspection Extremities: normal pulses Results Result Diagram: 07/11/17 0600 07/11/17 0555 Results 24 hrs Laboratory Tests Test 07/10/17 17:22 07/10/17 21:06 07/11/17 00:11 07/11/17 01:14 Bedside Glucose 127 176 147 160 Test 07/11/17 05:40 07/11/17 05:55 07/11/17 06:00 07/11/17 06:23 Erythrocyte Sedimentation Rate 99 H Sodium Level 140 Potassium Level 4.0 Chloride Level 103 Carbon Dioxide Level 28 Anion Gap 13 Blood Urea Nitrogen 57 H Creatinine 4.09 H Glucose Level 132 # Calcium Level 8.8 C-Reactive Protein 1.6 H White Blood Count 13.3 H Red Blood Count 3.64 L Hemoglobin 10.7 L Hematocrit 33.1 L Mean Corpuscular Volume 90.9 Mean Corpuscular Hemoglobin 29.4 Mean Corpuscular Hemoglobin Concent 32.3 Red Cell Distribution Width 13.9 Platelet Count 378 Mean Platelet Volume 11.0 H Neutrophils % 74.8 Lymphocytes % 13.4 L Monocytes % 6.0 Eosinophils % 4.6 Basophils % 0.7 Nucleated Red Blood Cells % 0.0 Neutrophils # 9.9 H Lymphocytes # 1.8 Monocytes # 0.8 Eosinophils # 0.6 H Basophils # 0.1 Nucleated Red Blood Cells # 0.0 Bedside Glucose 134 Test 07/11/17 12:18 Bedside Glucose 111 Medications Medications Current Medications Miscellaneous Information [facility] TO DOSE ONCE XX ; Start 06/30/17 at 22: 00 Acetaminophen (Ofirmev 1000mg/ 100ml Iv) 100 ml @ 400 mls/hr Q6H PRN IVPB PAIN /FEVER Last administered on 06/30/17 23:53; Admin Dose 400 MLS/HR; Start at 22:00 Morphine Sulfate (morphine) 2 mg Q4H PRN IV PAIN; Start 06/30/17 at 22:00 Ondansetron HCl (Zofran Inj) 4 mg Q6H PRN IV NAUSEA AND/OR VOMITING Last administered on 07/05/17 09:31; Admin Dose 4 MG; Start 06/30/17 at 22:00 Hydralazine HCl (Apresoline) 10 mg Q6 PRN IV ELEVATED SYSTOLIC BP Last administered on 07/04/17 20:47; Admin Dose 10 MG; Start 06/30/17 at 22:00 Insulin Aspart (Novolog Insulin Pen) (Adult SC Insulin - Mild Algorithm)... Q6 SC Last administered on 07/11/17 01:16; Admin Dose 1 UNIT; Start 07/01/17 at 00:00 Cyclobenzaprine HCl (Flexeril) 10 mg BID PRN GTB Hiccups Last administered on 07/03/17 08:40; Admin Dose 10 MG; Start 07/01/17 at 22:00 Acetaminophen (Tylenol Liquid) 650 mg DAILY PRN GTB PAIN AND OR ELEVATED TEMP; Start 07/04/17 at 10:30 Amlodipine Besylate (Norvasc) 5 mg BID GTB Last administered on 07/11/17 08: 53; Admin Dose 5 MG; Start 07/04/17 at 21:00 Ascorbic Acid (Vitamin C) 500 mg DAILY GTB Last administered on 07/11/17 08: 52; Admin Dose 500 MG; Start 07/05/17 at 09:00 Bisacodyl (Dulcolax Supp) 10 mg Q24H [place] Last administered on 07/11/17 11:32; Admin Dose 10 MG; Start 07/04/17 at 10:30 Clonidine (Catapres) 0.2 mg DAILY GTB Last administered on 07/11/17 08:53; Admin Dose 0.2 MG; Start 07/05/17 at 09:00 Diphenhydramine HCl (Benadryl) 25 mg Q6H PRN GTB ITCHING Last administered on 07/11/17 08:52; Admin Dose 25 MG; Start 07/04/17 at 10:30 Hydralazine HCl (Apresoline) 50 mg Q6H PRN PO ELEVATED BLOOD PRESSURE; Start 07/04/17 at 10:30 Insulin Glargine (Lantus) 18 unit QHS SC Last administered on 07/10/17 21:12 ; Admin Dose 18 UNIT; Start 07/04/17 at 21:00 Lansoprazole (Prevacid) 30 mg BID GTB Last administered on 07/11/17 08:52; Admin Dose 30 MG; Start 07/04/17 at 21:00 Nitroglycerin (Nitroglycerin (Sl Tab) 0.4 Mg) 0.4 tab [id number] PRN SL CHEST PAIN; Start 07/04/17 at 10:30 Tamsulosin HCl (Flomax) 0.4 mg DAILY PO ; Start 07/05/17 at 09:00 Zinc Sulfate (Zinc Sulfate) 220 mg DAILY GTB Last administered on 07/11/17 08 :52; Admin Dose 220 MG; Start 07/05/17 at 09:00 Docusate Sodium (Colace Liquid Cup) 200 mg QHS PRN GTB CONSTIPATION Last administered on 07/07/17 20:24; Admin Dose 200 MG; Start 07/04/17 at 10:37 Miscellaneous Information 1 ea NOTE XX ; Start 07/04/17 at 11:00 Glucose (Glutose) 15 gm Q15M PRN PO DECREASED GLUCOSE; Start 07/04/17 at 11:00 Glucose (Glutose) 22.5 gm Q15M PRN PO DECREASED GLUCOSE; Start 07/04/17 at 11: 00 Dextrose (D50w Syringe) 25 ml Q15M PRN IV DECREASED GLUCOSE; Start 07/04/17 at 11:00 Dextrose (D50w Syringe) 50 ml Q15M PRN IV DECREASED GLUCOSE; Start 07/04/17 at 11:00 Glucagon (Glucagen) 1 mg Q15M PRN IM DECREASED GLUCOSE; Start 07/04/17 at 11: 00 Glucose 15 gm 15 gm Q15M PRN BUCCAL DECREASED GLUCOSE; Start 07/04/17 at 11:00 Meropenem/Sodium Chloride (Merrem 500mg/50 ml(Pmx)) 50 ml @ 100 mls/hr Q24H IVPB Last administered on 07/10/17 21:07; Admin Dose 100 MLS/HR; Start 07/05 at 21:00 Famotidine (Pepcid) 10 mg DAILY GTB Last administered on 07/11/17 08:52; Admin Dose 10 MG; Start 07/08/17 at 09:00 MARCY WEINER Jul 11, 2017 12:56
[2017-07-11 15:26] VITALS: BP 141/66; RESP 16
--- NOTE | 2017-07-11 18:10 | PN ---
Date/Time of Note Date/Time of Note DATE: 07/11/17 TIME: 18:09 Assessment/Plan Lines/Catheters IV Catheter Type (from [facility]): perma cath [place] in Place (from [facility]): Yes Assessment/Plan Chief Complaint/Hosp Course 1. Cholelithiasis with Negative HIDA (no acute cholecystitis); no abdominal pain /tenderness -no lap avery: previously discussed with family and patient-wanting to manage conservatively at this point -pain management 2. UTI: -abx per sensitivity -frequent bladder emptying/cath care 3. Leukocytosis: likely 2/2 #2, ? 1, ? other -as above -monitor -? kelly cx 4. Anemia: no acute bleed noted -monitor -transfuse as needed 5. ESRD on HD -HD per renal -avoid/limit nephrotoxic meds -judicious fluids -renally dose meds 6. Electrolyte imbalance: -optimize lytes 7. Elevated LFT: -as above 8. Hypoalbuminemia: multifactorial -optimize nutrition as able -management of infection/inflammation 9. Dysphagia with feeding tube: on tube feeds -continue tf with aspiration precautions Thank you Problems: Subjective 24 Hr Interval Summary Leukocytosis. Tolerating feeding. Bowel function. No fevers, chills, sob, congested cough, cp, palpitations, hernandez, dizziness, n/v/d/dysuria. Exam/Review of Systems Vital Signs Vitals Vital Signs Date Time Temp Pulse Resp B/P Pulse Ox O2 Delivery O2 Flow Rate FiO2 07/11/17 15:26 97.8 77 16 141/66 99 Intake and Output 07/10/17 07/10/17 07/11/17 15:00 23:00 07:00 Intake Total 150 ml 650 ml 680 ml Output Total 500 ml 450 ml Balance 150 ml 150 ml 230 ml Exam Free Text/Dictation Constitutional: alert, oriented, responsive Head: atraumatic, normocephalic Eyes: nl lids, nl sclera ENMT: mucosa pink and moist, nl nasal mucosa & septum Neck: non-tender, supple Respiratory: normal air movement, No labored breathing Cardiovascular: regular rate and rhythm Gastrointestinal: non-tender, other (peg), soft Genitourinary - Male: nl penis, nl scrotum Musculoskeletal: nl extremities to inspection Extremities: normal pulses Neurological: No nl mental status, No nl speech (delayed) Skin: nl turgor Results Result Diagram: 07/11/17 0600 07/11/17 0555 LIZ PARKER MD Jul 11, 2017 18:10
--- NOTE | 2017-07-11 18:10 | CONS ---
Date/Time of Note Date/Time of Note DATE: 07/11/17 TIME: 18:05 Assessment/Plan Assessment/Plan Chief Complaint/Hosp Course Assessment/Plan Chief Complaint/Hosp Course .ID PROGRESS NOTE ABX DAY #11=> Merrem 24H INTERVAL SUMMARY 1. Resting Comfortably. Afebrile. No Acute Distress. PHYSICAL EXAMINATION: GENERAL: Thin appearing debilitated M, calm, looks comfortable HEENT: Unremarkable, missing dentition NECK: Trach-> midline, neck supple CHEST: Equal chest rise bilaterally, without dyspnea on observation ABDOMEN: Soft, peg EXTREMITIES: Warm, atrophy & cachexia SKIN: Warm, dry ID ASSESSMENT: 71 yo M w/PMHx CVA w/LE weakness, dementia, dysphagia admitted with: 1. SIRS w/persistent leukocytosis, toxic metabolic encephalopathy => Resolving * Blood Cx (-) * CT ABD (+) patchy bilateral opacities ?infiltrates 2. Recurrent GNR Urinary tract infection-> 2/2 neurogenic bladder w/retention * 06/29/17 URINE CULTURE Final Organism 1 ESCHERICHIA COLI COLONY COUNT >100,000 CFU/ml 3. Dysphagia, status post PEG. 4. HCAP w/CXR 06/30/17: Patchy bibasilar air space disease which may represent infiltrates. * s/p prior admissions MAR 2017 Aspiration PNA w/residual bronchiolitis recent admission 5. Cholelithiasis with Negative HIDA (no acute cholecystitis); no abdominal pain/tenderness-> plan conservative Tx w/pain management 6. Acute on chronic kidney disease. 7. HTN 8. DMII 9. Afib 10. 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 Hx of hip surgery 13. Sacral decub II, heel decub 14. Hx of C.Diff colitis (-)MRSA Nares INVASIVES: Peg, FC, PIV R-AC ABX ALLERGIES: NKDA CURRENT ABX: ABX DAY #11 =>Merrem ID RECOMMENDATIONS: 1. Continue Antibiotics. Monitor Labs. 2. ID team will continue to follow. Problems: Consultation Date/Type/Reason Admit Date/Time Jun 30, 2017 at 19:01 Initial Consult Date 07/01/17 Type of Consultation: id Referring Provider: KE JAVED MD Exam/Review of Systems Vital Signs Vitals Vital Signs Date Time Temp Pulse Resp B/P Pulse Ox O2 Delivery O2 Flow Rate FiO2 07/11/17 15:26 97.8 77 16 141/66 99 Intake and Output 07/10/17 07/10/17 07/11/17 14:59 22:59 06:59 Intake Total 150 ml 650 ml 680 ml Output Total 500 ml 450 ml Balance 150 ml 150 ml 230 ml Results Result Diagram: 07/11/17 0600 07/11/17 0555 Results 24 hrs Laboratory Tests Test 07/10/17 21:06 07/11/17 00:11 07/11/17 01:14 07/11/17 05:40 Bedside Glucose 176 147 160 Erythrocyte Sedimentation Rate 99 H Test 07/11/17 05:55 07/11/17 06:00 07/11/17 06:23 07/11/17 12:18 Sodium Level 140 Potassium Level 4.0 Chloride Level 103 Carbon Dioxide Level 28 Anion Gap 13 Blood Urea Nitrogen 57 H Creatinine 4.09 H Glucose Level 132 # Calcium Level 8.8 C-Reactive Protein 1.6 H White Blood Count 13.3 H Red Blood Count 3.64 L Hemoglobin 10.7 L Hematocrit 33.1 L Mean Corpuscular Volume 90.9 Mean Corpuscular Hemoglobin 29.4 Mean Corpuscular Hemoglobin Concent 32.3 Red Cell Distribution Width 13.9 Platelet Count 378 Mean Platelet Volume 11.0 H Neutrophils % 74.8 Lymphocytes % 13.4 L Monocytes % 6.0 Eosinophils % 4.6 Basophils % 0.7 Nucleated Red Blood Cells % 0.0 Neutrophils # 9.9 H Lymphocytes # 1.8 Monocytes # 0.8 Eosinophils # 0.6 H Basophils # 0.1 Nucleated Red Blood Cells # 0.0 Bedside Glucose 134 111 Test 07/11/17 17:21 Bedside Glucose 92 Medications Medications Current Medications Miscellaneous Information [facility] TO DOSE ONCE XX ; Start 06/30/17 at 22: 00 Acetaminophen (Ofirmev 1000mg/ 100ml Iv) 100 ml @ 400 mls/hr Q6H PRN IVPB PAIN /FEVER Last administered on 06/30/17 23:53; Admin Dose 400 MLS/HR; Start at 22:00 Morphine Sulfate (morphine) 2 mg Q4H PRN IV PAIN; Start 06/30/17 at 22:00 Ondansetron HCl (Zofran Inj) 4 mg Q6H PRN IV NAUSEA AND/OR VOMITING Last administered on 07/05/17 09:31; Admin Dose 4 MG; Start 06/30/17 at 22:00 Hydralazine HCl (Apresoline) 10 mg Q6 PRN IV ELEVATED SYSTOLIC BP Last administered on 07/04/17 20:47; Admin Dose 10 MG; Start 06/30/17 at 22:00 Insulin Aspart (Novolog Insulin Pen) (Adult SC Insulin - Mild Algorithm)... Q6 SC Last administered on 07/11/17 01:16; Admin Dose 1 UNIT; Start 07/01/17 at 00:00 Cyclobenzaprine HCl (Flexeril) 10 mg BID PRN GTB Hiccups Last administered on 07/03/17 08:40; Admin Dose 10 MG; Start 07/01/17 at 22:00 Acetaminophen (Tylenol Liquid) 650 mg DAILY PRN GTB PAIN AND OR ELEVATED TEMP; Start 07/04/17 at 10:30 Amlodipine Besylate (Norvasc) 5 mg BID GTB Last administered on 07/11/17 08: 53; Admin Dose 5 MG; Start 07/04/17 at 21:00 Ascorbic Acid (Vitamin C) 500 mg DAILY GTB Last administered on 07/11/17 08: 52; Admin Dose 500 MG; Start 07/05/17 at 09:00 Bisacodyl (Dulcolax Supp) 10 mg Q24H [place] Last administered on 07/11/17 11:32; Admin Dose 10 MG; Start 07/04/17 at 10:30 Clonidine (Catapres) 0.2 mg DAILY GTB Last administered on 07/11/17 08:53; Admin Dose 0.2 MG; Start 07/05/17 at 09:00 Diphenhydramine HCl (Benadryl) 25 mg Q6H PRN GTB ITCHING Last administered on 07/11/17 08:52; Admin Dose 25 MG; Start 07/04/17 at 10:30 Hydralazine HCl (Apresoline) 50 mg Q6H PRN PO ELEVATED BLOOD PRESSURE; Start 07/04/17 at 10:30 Insulin Glargine (Lantus) 18 unit QHS SC Last administered on 07/10/17 21:12 ; Admin Dose 18 UNIT; Start 07/04/17 at 21:00 Lansoprazole (Prevacid) 30 mg BID GTB Last administered on 07/11/17 08:52; Admin Dose 30 MG; Start 07/04/17 at 21:00 Nitroglycerin (Nitroglycerin (Sl Tab) 0.4 Mg) 0.4 tab [id number] PRN SL CHEST PAIN; Start 07/04/17 at 10:30 Tamsulosin HCl (Flomax) 0.4 mg DAILY PO ; Start 07/05/17 at 09:00 Zinc Sulfate (Zinc Sulfate) 220 mg DAILY GTB Last administered on 07/11/17 08 :52; Admin Dose 220 MG; Start 07/05/17 at 09:00 Docusate Sodium (Colace Liquid Cup) 200 mg QHS PRN GTB CONSTIPATION Last administered on 07/07/17 20:24; Admin Dose 200 MG; Start 07/04/17 at 10:37 Miscellaneous Information 1 ea NOTE XX ; Start 07/04/17 at 11:00 Glucose (Glutose) 15 gm Q15M PRN PO DECREASED GLUCOSE; Start 07/04/17 at 11:00 Glucose (Glutose) 22.5 gm Q15M PRN PO DECREASED GLUCOSE; Start 07/04/17 at 11: 00 Dextrose (D50w Syringe) 25 ml Q15M PRN IV DECREASED GLUCOSE; Start 07/04/17 at 11:00 Dextrose (D50w Syringe) 50 ml Q15M PRN IV DECREASED GLUCOSE; Start 07/04/17 at 11:00 Glucagon (Glucagen) 1 mg Q15M PRN IM DECREASED GLUCOSE; Start 07/04/17 at 11: 00 Glucose 15 gm 15 gm Q15M PRN BUCCAL DECREASED GLUCOSE; Start 07/04/17 at 11:00 Meropenem/Sodium Chloride (Merrem 500mg/50 ml(Pmx)) 50 ml @ 100 mls/hr Q24H IVPB Last administered on 07/10/17 21:07; Admin Dose 100 MLS/HR; Start 07/05 at 21:00 Famotidine (Pepcid) 10 mg DAILY GTB Last administered on 07/11/17 08:52; Admin Dose 10 MG; Start 07/08/17 at 09:00 KATHLEEN ALANIS NP Jul 11, 2017 18:10
[2017-07-11 20:39] VITALS: BP 131/62; RESP 20
[2017-07-11] MEDS: MEROPENEM 500MG/50 ML (PMX) 50 ML IVPB SCH (20:49)
[2017-07-11] MEDS: INSULIN GLARGINE [LANtus] 3 ML PEN SC SCH (20:51)
[2017-07-12] VITALS (13 sets, daily range): BP systolic 97–177; BP diastolic 65–90; PULSE 86–109; RESP 16–19
[2017-07-12 05:06] LABS: WHITE BLOOD COUNT 14.4 10^3/ul (4.8-10.8)
[2017-07-12 05:07] LABS: BASOPHIL # 0.1 10^3/ul (0.0-0.1); BASOPHILS % 0.6 % (0.0-2.0); EOSINOPHILS # 0.5 10^3/ul (0.0-0.5); EOSINOPHILS % 3.6 % (0.0-7.0); HEMATOCRIT 29.5 % (42.0-52.0); HEMOGLOBIN 9.8 g/dl (14.0-18.0); LYMPHOCYTES # 2.5 10^3/ul (0.8-2.9); LYMPHOCYTES % 17.5 % (15.0-51.0); MEAN CORPUSCULAR HEMOGLOBIN 29.6 pg (29.0-33.0); MEAN CORPUSCULAR HGB CONC 33.2 g/dl (32.0-37.0); MEAN CORPUSCULAR VOLUME 89.1 fl (82.0-101.0); MONOCYTE # 0.9 10^3/ul (0.3-0.9); MONOCYTES % 6.5 % (0.0-11.0); NEUTROPHIL # 10.2 10^3/ul (1.6-7.5); NEUTROPHILS % 71.3 % (39.0-77.0); PLATELET COUNT 387 10^3/UL (140-415); RED BLOOD COUNT 3.31 10^6/ul (4.70-6.10); RED CELL DISTRIBUTION WIDTH 13.8 % (11.5-14.5)
[2017-07-12] MEDS: Insulin NOVOLOG SS MILD Algorithm (NPO/TPN/ENTERAL FEEDS) SC SCH ×4 (05:09→18:00)
[2017-07-12 05:25] LABS: CALCIUM 8.3 mg/dl (8.4-10.2); CREATININE 4.57 mg/dl (0.61-1.24); POTASSIUM 3.7 mmol/L (3.5-5.1)
[2017-07-12] MEDS: DIPHENHYDRAMINE 25 MG CAP GTB PRN ×2 (07:30→21:36)
[2017-07-12] MEDS: BISACODYL 10 MG SUPP PR SCH ×2 (07:30→10:22)
[2017-07-12] MEDS: ASCORBIC ACID 500 MG TAB GTB SCH (08:29)
[2017-07-12] MEDS: LANSOPRAZOLE 30 MG CAP GTB SCH ×2 (08:29→21:36)
[2017-07-12] MEDS: ZINC SULFATE 220 MG CAP GTB SCH (08:29)
[2017-07-12] MEDS: FAMOTIDINE 20 MG TAB GTB SCH (08:30)
[2017-07-12] MEDS: AMLODIPINE 5 MG TAB GTB SCH ×2 (09:00→21:36)
--- NOTE | 2017-07-12 09:46 | CONS ---
Date/Time of Note Date/Time of Note DATE: 07/12/17 TIME: 09:44 Assessment/Plan Assessment/Plan Chief Complaint/Hosp Course 1. Sepsis, better. 2. Pneumonia. 3. The patient has cholecystitis. 4. G tube status 5. Anemia. 6. Chronic kidney disease 5. 7. ESRD Problems: Additional Assessment/Plan 1. HD treatment per schedule. Cr is better from 5 to 4.5 2. Optimization of kidney function Consultation Date/Type/Reason Admit Date/Time Jun 30, 2017 at 19:01 Initial Consult Date 07/01/17 Type of Consultation: nephrology Reason for Consultation Dr Cheema Referring Provider: KE JAVED MD Exam/Review of Systems Vital Signs Vitals Vital Signs Date Time Temp Pulse Resp B/P Pulse Ox O2 Delivery O2 Flow Rate FiO2 07/12/17 08:00 97.9 85 18 155/72 98 Intake and Output 07/11/17 07/11/17 07/12/17 14:59 22:59 06:59 Intake Total 730 ml 680 ml Output Total 300 ml 400 ml Balance 430 ml 280 ml Exam Constitutional: alert Neck: supple Respiratory: clear to auscultation Cardiovascular: regular rate and rhythm Gastrointestinal: other (g tube), soft Musculoskeletal: joint tenderness, swelling, No muscle tone, No muscle weakness, No nl extremities to inspection, No nl gait and stance, No other, No range of motion, No spine non-tender Neurological: confused Results Result Diagram: 07/12/17 0434 07/12/17 0434 Results 24 hrs Laboratory Tests Test 07/11/17 12:18 07/11/17 17:21 07/11/17 20:48 07/12/17 00:04 Bedside Glucose 111 92 106 77 Test 07/12/17 04:34 07/12/17 05:09 White Blood Count 14.4 H Red Blood Count 3.31 L Hemoglobin 9.8 L Hematocrit 29.5 L Mean Corpuscular Volume 89.1 Mean Corpuscular Hemoglobin 29.6 Mean Corpuscular Hemoglobin Concent 33.2 Red Cell Distribution Width 13.8 Platelet Count 387 Mean Platelet Volume 11.0 H Neutrophils % 71.3 Lymphocytes % 17.5 Monocytes % 6.5 Eosinophils % 3.6 Basophils % 0.6 Nucleated Red Blood Cells % 0.0 Neutrophils # 10.2 H Lymphocytes # 2.5 Monocytes # 0.9 Eosinophils # 0.5 Basophils # 0.1 Nucleated Red Blood Cells # 0.0 Sodium Level 140 Potassium Level 3.7 Chloride Level 102 Carbon Dioxide Level 27 Anion Gap 15 Blood Urea Nitrogen 70 H Creatinine 4.57 H Glucose Level 71 # Calcium Level 8.3 L Bedside Glucose 73 Medications Medications Current Medications Miscellaneous Information [facility] TO DOSE ONCE XX ; Start 06/30/17 at 22: 00 Acetaminophen (Ofirmev 1000mg/ 100ml Iv) 100 ml @ 400 mls/hr Q6H PRN IVPB PAIN /FEVER Last administered on 06/30/17 23:53; Admin Dose 400 MLS/HR; Start at 22:00 Morphine Sulfate (morphine) 2 mg Q4H PRN IV PAIN; Start 06/30/17 at 22:00 Ondansetron HCl (Zofran Inj) 4 mg Q6H PRN IV NAUSEA AND/OR VOMITING Last administered on 07/05/17 09:31; Admin Dose 4 MG; Start 06/30/17 at 22:00 Hydralazine HCl (Apresoline) 10 mg Q6 PRN IV ELEVATED SYSTOLIC BP Last administered on 07/04/17 20:47; Admin Dose 10 MG; Start 06/30/17 at 22:00 Insulin Aspart (Novolog Insulin Pen) (Adult SC Insulin - Mild Algorithm)... Q6 SC Last administered on 07/11/17 01:16; Admin Dose 1 UNIT; Start 07/01/17 at 00:00 Cyclobenzaprine HCl (Flexeril) 10 mg BID PRN GTB Hiccups Last administered on 07/03/17 08:40; Admin Dose 10 MG; Start 07/01/17 at 22:00 Acetaminophen (Tylenol Liquid) 650 mg DAILY PRN GTB PAIN AND OR ELEVATED TEMP; Start 07/04/17 at 10:30 Amlodipine Besylate (Norvasc) 5 mg BID GTB Last administered on 07/11/17 20: 49; Admin Dose 5 MG; Start 07/04/17 at 21:00 Ascorbic Acid (Vitamin C) 500 mg DAILY GTB Last administered on 07/12/17 08: 29; Admin Dose 500 MG; Start 07/05/17 at 09:00 Bisacodyl (Dulcolax Supp) 10 mg Q24H [place] Last administered on 07/11/17 11:32; Admin Dose 10 MG; Start 07/04/17 at 10:30 Clonidine (Catapres) 0.2 mg DAILY GTB Last administered on 07/11/17 08:53; Admin Dose 0.2 MG; Start 07/05/17 at 09:00 Diphenhydramine HCl (Benadryl) 25 mg Q6H PRN GTB ITCHING Last administered on 07/11/17 20:49; Admin Dose 25 MG; Start 07/04/17 at 10:30 Hydralazine HCl (Apresoline) 50 mg Q6H PRN PO ELEVATED BLOOD PRESSURE; Start 07/04/17 at 10:30 Insulin Glargine (Lantus) 18 unit QHS SC Last administered on 07/11/17 20:51 ; Admin Dose 18 UNIT; Start 07/04/17 at 21:00 Lansoprazole (Prevacid) 30 mg BID GTB Last administered on 07/12/17 08:29; Admin Dose 30 MG; Start 07/04/17 at 21:00 Nitroglycerin (Nitroglycerin (Sl Tab) 0.4 Mg) 0.4 tab [id number] PRN SL CHEST PAIN; Start 07/04/17 at 10:30 Tamsulosin HCl (Flomax) 0.4 mg DAILY PO ; Start 07/05/17 at 09:00 Zinc Sulfate (Zinc Sulfate) 220 mg DAILY GTB Last administered on 07/12/17 08 :29; Admin Dose 220 MG; Start 07/05/17 at 09:00 Docusate Sodium (Colace Liquid Cup) 200 mg QHS PRN GTB CONSTIPATION Last administered on 07/07/17 20:24; Admin Dose 200 MG; Start 07/04/17 at 10:37 Miscellaneous Information 1 ea NOTE XX ; Start 07/04/17 at 11:00 Glucose (Glutose) 15 gm Q15M PRN PO DECREASED GLUCOSE; Start 07/04/17 at 11:00 Glucose (Glutose) 22.5 gm Q15M PRN PO DECREASED GLUCOSE; Start 07/04/17 at 11: 00 Dextrose (D50w Syringe) 25 ml Q15M PRN IV DECREASED GLUCOSE; Start 07/04/17 at 11:00 Dextrose (D50w Syringe) 50 ml Q15M PRN IV DECREASED GLUCOSE; Start 07/04/17 at 11:00 Glucagon (Glucagen) 1 mg Q15M PRN IM DECREASED GLUCOSE; Start 07/04/17 at 11: 00 Glucose 15 gm 15 gm Q15M PRN BUCCAL DECREASED GLUCOSE; Start 07/04/17 at 11:00 Meropenem/Sodium Chloride (Merrem 500mg/50 ml(Pmx)) 50 ml @ 100 mls/hr Q24H IVPB Last administered on 07/11/17 20:49; Admin Dose 100 MLS/HR; Start 07/05 at 21:00 Famotidine (Pepcid) 10 mg DAILY GTB Last administered on 07/12/17 08:30; Admin Dose 10 MG; Start 07/08/17 at 09:00 CHELSIE HERNÁNDEZ Jul 12, 2017 09:46
[2017-07-12] MEDS: BALSAM PERU/CASTOR OIL 60 GM TUBE TOP SCH ×2 (09:53→21:38)
--- NOTE | 2017-07-12 12:33 | PN ---
Date/Time of Note Date/Time of Note DATE: 07/12/17 TIME: 12:31 Assessment/Plan VTE Prophylaxis VTE Prophylaxis Intervention: other Lines/Catheters [facility]from [facility] Saline Lock Urinary Cath still in place: Yes Reason Cath still needed: urinary retention Assessment/Plan Assessment/Plan -Leukocytosis-transfer on hold until WBCs are within normal - Possible acute cholecystitis, continue abx. Dr. Bojorquez is following in general surgery consultation. Family prefer to manage conservatively versus surgery. - E. coli UTI, continue meropenem. - Acute kidney injury on chronic kidney disease. Continue hemodialysis per renal. Dr. Cheema is following in nephrology consultation. - History of cerebrovascular accident - Diabetes mellitus. Continue Lantus and NovoLog. - Diastolic congestive heart failure. Continue to monitor intake and output. - Paroxysmal atrial fibrillation, currently in sinus rhythm. - Hypertension. - Hyperlipidemia. - Dysphagia with G-tube. Further recommendations based on clinical course. Plan of care discussed with Dr. Patel Subjective 24 Hr Interval Summary Free Text/Dictation No acute distress, WBCs are still elevated so we will hold the transfer until get stable, afebrile discussed with staff Exam/Review of Systems Vital Signs Vitals Vital Signs Date Time Temp Pulse Resp B/P Pulse Ox O2 Delivery O2 Flow Rate FiO2 07/12/17 08:00 97.9 85 18 155/72 98 Intake and Output 07/11/17 07/11/17 07/12/17 14:59 22:59 06:59 Intake Total 730 ml 680 ml Output Total 300 ml 400 ml Balance 430 ml 280 ml Exam Constitutional: alert Gastrointestinal: non-tender, other (G-tube intact), soft Musculoskeletal: nl extremities to inspection Neurological: confused Results Result Diagram: 07/12/17 0434 07/12/17 0434 Results 24 hrs Laboratory Tests Test 07/11/17 17:21 07/11/17 20:48 07/12/17 00:04 07/12/17 04:34 Bedside Glucose 92 106 77 White Blood Count 14.4 H Red Blood Count 3.31 L Hemoglobin 9.8 L Hematocrit 29.5 L Mean Corpuscular Volume 89.1 Mean Corpuscular Hemoglobin 29.6 Mean Corpuscular Hemoglobin Concent 33.2 Red Cell Distribution Width 13.8 Platelet Count 387 Mean Platelet Volume 11.0 H Neutrophils % 71.3 Lymphocytes % 17.5 Monocytes % 6.5 Eosinophils % 3.6 Basophils % 0.6 Nucleated Red Blood Cells % 0.0 Neutrophils # 10.2 H Lymphocytes # 2.5 Monocytes # 0.9 Eosinophils # 0.5 Basophils # 0.1 Nucleated Red Blood Cells # 0.0 Sodium Level 140 Potassium Level 3.7 Chloride Level 102 Carbon Dioxide Level 27 Anion Gap 15 Blood Urea Nitrogen 70 H Creatinine 4.57 H Glucose Level 71 # Calcium Level 8.3 L Test 07/12/17 05:09 07/12/17 11:35 Bedside Glucose 73 113 Medications Medications Current Medications Miscellaneous Information [facility] TO DOSE ONCE XX ; Start 06/30/17 at 22: 00 Acetaminophen (Ofirmev 1000mg/ 100ml Iv) 100 ml @ 400 mls/hr Q6H PRN IVPB PAIN /FEVER Last administered on 06/30/17 23:53; Admin Dose 400 MLS/HR; Start at 22:00 Morphine Sulfate (morphine) 2 mg Q4H PRN IV PAIN; Start 06/30/17 at 22:00 Ondansetron HCl (Zofran Inj) 4 mg Q6H PRN IV NAUSEA AND/OR VOMITING Last administered on 07/05/17 09:31; Admin Dose 4 MG; Start 06/30/17 at 22:00 Hydralazine HCl (Apresoline) 10 mg Q6 PRN IV ELEVATED SYSTOLIC BP Last administered on 07/04/17 20:47; Admin Dose 10 MG; Start 06/30/17 at 22:00 Insulin Aspart (Novolog Insulin Pen) (Adult SC Insulin - Mild Algorithm)... Q6 SC Last administered on 07/11/17 01:16; Admin Dose 1 UNIT; Start 07/01/17 at 00:00 Cyclobenzaprine HCl (Flexeril) 10 mg BID PRN GTB Hiccups Last administered on 07/03/17 08:40; Admin Dose 10 MG; Start 07/01/17 at 22:00 Acetaminophen (Tylenol Liquid) 650 mg DAILY PRN GTB PAIN AND OR ELEVATED TEMP; Start 07/04/17 at 10:30 Amlodipine Besylate (Norvasc) 5 mg BID GTB Last administered on 07/11/17 20: 49; Admin Dose 5 MG; Start 07/04/17 at 21:00 Ascorbic Acid (Vitamin C) 500 mg DAILY GTB Last administered on 07/12/17 08: 29; Admin Dose 500 MG; Start 07/05/17 at 09:00 Bisacodyl (Dulcolax Supp) 10 mg Q24H [place] Last administered on 07/12/17 10:22; Admin Dose 10 MG; Start 07/04/17 at 10:30 Clonidine (Catapres) 0.2 mg DAILY GTB Last administered on 07/11/17 08:53; Admin Dose 0.2 MG; Start 07/05/17 at 09:00 Diphenhydramine HCl (Benadryl) 25 mg Q6H PRN GTB ITCHING Last administered on 07/12/17 07:30; Admin Dose 25 MG; Start 07/04/17 at 10:30 Hydralazine HCl (Apresoline) 50 mg Q6H PRN PO ELEVATED BLOOD PRESSURE; Start 07/04/17 at 10:30 Insulin Glargine (Lantus) 18 unit QHS SC Last administered on 07/11/17 20:51 ; Admin Dose 18 UNIT; Start 07/04/17 at 21:00 Lansoprazole (Prevacid) 30 mg BID GTB Last administered on 07/12/17 08:29; Admin Dose 30 MG; Start 07/04/17 at 21:00 Nitroglycerin (Nitroglycerin (Sl Tab) 0.4 Mg) 0.4 tab [id number] PRN SL CHEST PAIN; Start 07/04/17 at 10:30 Tamsulosin HCl (Flomax) 0.4 mg DAILY PO ; Start 07/05/17 at 09:00 Zinc Sulfate (Zinc Sulfate) 220 mg DAILY GTB Last administered on 07/12/17 08 :29; Admin Dose 220 MG; Start 07/05/17 at 09:00 Docusate Sodium (Colace Liquid Cup) 200 mg QHS PRN GTB CONSTIPATION Last administered on 07/07/17 20:24; Admin Dose 200 MG; Start 07/04/17 at 10:37 Miscellaneous Information 1 ea NOTE XX ; Start 07/04/17 at 11:00 Glucose (Glutose) 15 gm Q15M PRN PO DECREASED GLUCOSE; Start 07/04/17 at 11:00 Glucose (Glutose) 22.5 gm Q15M PRN PO DECREASED GLUCOSE; Start 07/04/17 at 11: 00 Dextrose (D50w Syringe) 25 ml Q15M PRN IV DECREASED GLUCOSE; Start 07/04/17 at 11:00 Dextrose (D50w Syringe) 50 ml Q15M PRN IV DECREASED GLUCOSE; Start 07/04/17 at 11:00 Glucagon (Glucagen) 1 mg Q15M PRN IM DECREASED GLUCOSE; Start 07/04/17 at 11: 00 Glucose 15 gm 15 gm Q15M PRN BUCCAL DECREASED GLUCOSE; Start 07/04/17 at 11:00 Meropenem/Sodium Chloride (Merrem 500mg/50 ml(Pmx)) 50 ml @ 100 mls/hr Q24H IVPB Last administered on 07/11/17 20:49; Admin Dose 100 MLS/HR; Start 07/05 at 21:00 Famotidine (Pepcid) 10 mg DAILY GTB Last administered on 07/12/17 08:30; Admin Dose 10 MG; Start 07/08/17 at 09:00 MARCY WEINER Jul 12, 2017 12:33
--- NOTE | 2017-07-12 15:59 | RADRPT ---
PROCEDURE: XR portable chest CLINICAL INDICATION: Shortness of breath TECHNIQUE: Portable upright chest radiograph COMPARISON: Portable chest radiograph 07/11/2017 FINDINGS: The tip of the central venous catheter projects in the right atrium. Slightly low lung volumes. Indistinctness of the lung vessels suggesting interstitial edema. No other significant interval changes seen. IMPRESSION: 1. Indistinctness of the lung vessels suggests interstitial edema RPTAT: TT Paola Seals Physician Date Time Electronically viewed and signed by Paola Seals Physician on 07/12/2017 15:59 JS/
--- NOTE | 2017-07-12 18:17 | PN ---
Date/Time of Note Date/Time of Note DATE: 07/12/17 TIME: 18:15 Assessment/Plan Lines/Catheters IV Catheter Type (from [facility]): Saline Lock Flores in Place (from [facility]): Yes Assessment/Plan Chief Complaint/Hosp Course 1. Cholelithiasis with Negative HIDA (no acute cholecystitis); no abdominal pain /tenderness -no lap avery per family and patient-wanting to manage conservatively at this point 2. UTI: -abx per sensitivity -frequent bladder emptying/cath care 3. Leukocytosis: likely 2/2 #2, ? 1, ? other -as above -monitor -? kelly cx 4. Anemia: no acute bleed noted -monitor -transfuse as needed 5. ESRD on HD -HD per renal -avoid/limit nephrotoxic meds -judicious fluids -renally dose meds 6. Electrolyte imbalance: -optimize lytes 7. Elevated LFT: -as above 8. Hypoalbuminemia: multifactorial -optimize nutrition as able -management of infection/inflammation 9. Dysphagia with feeding tube: on tube feeds -continue tf with aspiration precautions Thank you Problems: Subjective 24 Hr Interval Summary Leukocytosis. Tolerating feeding. Bowel function. No fevers, chills, sob, congested cough, cp, palpitations, hernandez, dizziness, n/v/d/dysuria. Exam/Review of Systems Vital Signs Vitals Vital Signs Date Time Temp Pulse Resp B/P Pulse Ox O2 Delivery O2 Flow Rate FiO2 07/12/17 15:31 98.0 88 153/73 07/12/17 14:05 16 100 Intake and Output 07/11/17 07/11/17 07/12/17 14:59 22:59 06:59 Intake Total 730 ml 680 ml Output Total 300 ml 400 ml Balance 430 ml 280 ml Exam Free Text/Dictation Constitutional: alert, oriented, responsive Head: atraumatic, normocephalic Eyes: nl lids, nl sclera ENMT: mucosa pink and moist, nl nasal mucosa & septum Neck: non-tender, supple Respiratory: normal air movement, No labored breathing Cardiovascular: regular rate and rhythm Gastrointestinal: non-tender, other (peg), soft Genitourinary - Male: nl penis, nl scrotum Musculoskeletal: nl extremities to inspection Extremities: normal pulses Neurological: No nl mental status, No nl speech (delayed) Skin: nl turgor Results Result Diagram: 07/12/17 0434 07/12/17 0434 LIZ PARKER MD Jul 12, 2017 18:17
[2017-07-12] MEDS: MEROPENEM 500MG/50 ML (PMX) 50 ML IVPB SCH (21:36)
[2017-07-12] MEDS: INSULIN GLARGINE [LANtus] 3 ML PEN SC SCH (21:37)
[2017-07-13 02:47] VITALS: BP 157/74; RESP 18
[2017-07-13] MEDS: DIPHENHYDRAMINE 25 MG CAP GTB PRN (05:07)
[2017-07-13] MEDS: DOCUSATE SODIUM 10 MG/ML (10ML CUP) GTB PRN (05:07)
[2017-07-13] MEDS: Insulin NOVOLOG SS MILD Algorithm (NPO/TPN/ENTERAL FEEDS) SC SCH ×4 (05:08→18:00)
--- NOTE | 2017-07-13 07:03 | PN ---
DATE: 07/12/2017 SUBJECTIVE: Patient is lethargic, looks comfortable. Afebrile. WBC today 14.4 without shift to th e left. INDWELLINGS: PEG, Flores. Right chest PermCath. ANTIMICROBIALS: The patient remains on meropenem, day #8. PHYSICAL EXAMINATION: GENERAL: Chronically ill-appearing, elderly man who is in no distress. HEENT: Head atraumatic, normocephalic. Sclerae anicteric. Buccal mucosa dry. NECK: Supple. CHEST: Rise symmetrical. Breath sounds with scattered crackles. HEART: S1, S2. ABDOMEN: Soft, bowel sounds present. EXTREMITIES: Without cyanosis. ASSESSMENT: 1. Systemic inflammatory response syndrome with persistent leukocytosis. 2. Bilateral pneumonia, possibly ongoing aspiration. 3. Chololithiasis without evidence of acute cholecystitis. 4. Urinary tract infection. 5. Anemia. 6. End-stage renal disease, hemodialysis dependent. 7. Encephalopathy. PLAN: Remains stable with worsening leukocytosis. We are going to repeat chest x-ray and urine cul ture. Continue meropenem for now. Continue anti-aspiration measures. Dictated By: KAYLA CASTREJON IT SECURITY MANAGER for NUBIA PUGH MD NI/NTS Conf#: [id number] DID#: [id number] CC: LIZ PARKER MD; KE JAVED MD;*EndCC*
[2017-07-13 07:56] VITALS: BP 171/90; RESP 20
[2017-07-13] MEDS: ASCORBIC ACID 500 MG TAB GTB SCH (08:33)
[2017-07-13] MEDS: ZINC SULFATE 220 MG CAP GTB SCH (08:33)
[2017-07-13] MEDS: AMLODIPINE 5 MG TAB GTB SCH ×2 (08:33→20:26)
[2017-07-13] MEDS: FAMOTIDINE 20 MG TAB GTB SCH (08:33)
[2017-07-13] MEDS: LANSOPRAZOLE 30 MG CAP GTB SCH ×2 (08:33→20:26)
[2017-07-13] MEDS: BALSAM PERU/CASTOR OIL 60 GM TUBE TOP SCH ×2 (08:34→20:34)
[2017-07-13 09:30] VITALS: BP 122/71
[2017-07-13 12:22] LABS: BASOPHIL # 0.1 10^3/ul (0.0-0.1); BASOPHILS % 0.7 % (0.0-2.0); EOSINOPHILS # 0.5 10^3/ul (0.0-0.5); EOSINOPHILS % 4.6 % (0.0-7.0); HEMATOCRIT 31.5 % (42.0-52.0); HEMOGLOBIN 10.1 g/dl (14.0-18.0); LYMPHOCYTES # 1.7 10^3/ul (0.8-2.9); LYMPHOCYTES % 16.6 % (15.0-51.0); MEAN CORPUSCULAR HEMOGLOBIN 29.7 pg (29.0-33.0); MEAN CORPUSCULAR HGB CONC 32.1 g/dl (32.0-37.0); MEAN CORPUSCULAR VOLUME 92.6 fl (82.0-101.0); MEAN PLATELET VOLUME 11.3 fl (7.4-10.4); MONOCYTE # 0.8 10^3/ul (0.3-0.9); MONOCYTES % 7.9 % (0.0-11.0); NEUTROPHIL # 7.2 10^3/ul (1.6-7.5); NEUTROPHILS % 69.7 % (39.0-77.0); PLATELET COUNT 273 10^3/UL (140-415); RED CELL DISTRIBUTION WIDTH 14.5 % (11.5-14.5); WHITE BLOOD COUNT 10.4 10^3/ul (4.8-10.8)
[2017-07-13] MEDS: BISACODYL 10 MG SUPP PR SCH (12:28)
[2017-07-13 12:42] LABS: CALCIUM 8.7 mg/dl (8.4-10.2); CREATININE 3.43 mg/dl (0.61-1.24); POTASSIUM 4.3 mmol/L (3.5-5.1)
--- NOTE | 2017-07-13 13:56 | CONS ---
Date/Time of Note Date/Time of Note DATE: 07/13/17 TIME: 13:55 Assessment/Plan Assessment/Plan Chief Complaint/Hosp Course SUBJECTIVE: No acute changes. Lethargic, noncommunicative, no fevers, nad INDWELLINGS: Right chest PermCath, PEG, Flores. MICROBIOLOGY: Urine culture on admission grew E. coli. Blood cultures have been negative. ANTIMICROBIALS: Merrem ==> abx #11. PHYSICAL EXAMINATION: GENERAL: This is a chronically ill-appearing, elderly man who is in no distress. HEENT: Head atraumatic, normocephalic. Sclerae anicteric. Buccal mucosa dry. NECK: Supple. CHEST: Rise symmetrical. Breath sounds diminished to bases. HEART: S1, S2. ABDOMEN: Soft, bowel tones present. EXTREMITIES: Without cyanosis. ASSESSMENT: 1. Resolving sepsis. 2. Healthcare-associated pneumonia, possibly aspiration. 3. Urinary tract infection. 4. End-stage renal disease. 5. Dysphagia. 6. Encephalopathy. 7. Diabetes. PLAN: The patient remains stable, will dc antibiotics, continue aspiration precautions, repeat cx prn. Dw staff Problems: Consultation Date/Type/Reason Admit Date/Time Jun 30, 2017 at 19:01 Initial Consult Date 07/01/17 Type of Consultation: ID Referring Provider: KE JAVED MD Exam/Review of Systems Vital Signs Vitals Vital Signs Date Time Temp Pulse Resp B/P Pulse Ox O2 Delivery O2 Flow Rate FiO2 07/13/17 07:56 98.0 90 20 171/90 97 07/12/17 20:05 Room Air Intake and Output 07/12/17 07/12/17 07/13/17 15:00 23:00 07:00 Intake Total 550 ml 680 ml Output Total 2500 ml 100 ml Balance -1950 ml 580 ml Results Result Diagram: 07/13/17 1128 07/13/17 1128 Results 24 hrs Laboratory Tests Test 07/12/17 17:36 07/12/17 21:35 07/13/17 00:56 07/13/17 05:07 Bedside Glucose 72 102 106 80 Test 07/13/17 11:28 07/13/17 12:26 White Blood Count 10.4 # Red Blood Count 3.40 L Hemoglobin 10.1 L Hematocrit 31.5 L Mean Corpuscular Volume 92.6 Mean Corpuscular Hemoglobin 29.7 Mean Corpuscular Hemoglobin Concent 32.1 Red Cell Distribution Width 14.5 Platelet Count 273 # Mean Platelet Volume 11.3 H Neutrophils % 69.7 Lymphocytes % 16.6 Monocytes % 7.9 Eosinophils % 4.6 Basophils % 0.7 Nucleated Red Blood Cells % 0.0 Neutrophils # 7.2 Lymphocytes # 1.7 Monocytes # 0.8 Eosinophils # 0.5 Basophils # 0.1 Nucleated Red Blood Cells # 0.0 Sodium Level 134 L Potassium Level 4.3 Chloride Level 99 Carbon Dioxide Level 26 Anion Gap 13 Blood Urea Nitrogen 49 #H Creatinine 3.43 #H Glucose Level 144 # Calcium Level 8.7 Bedside Glucose 128 Medications Medications Current Medications Miscellaneous Information [facility] TO DOSE ONCE XX ; Start 06/30/17 at 22: 00 Acetaminophen (Ofirmev 1000mg/ 100ml Iv) 100 ml @ 400 mls/hr Q6H PRN IVPB PAIN /FEVER Last administered on 06/30/17 23:53; Admin Dose 400 MLS/HR; Start at 22:00 Morphine Sulfate (morphine) 2 mg Q4H PRN IV PAIN; Start 06/30/17 at 22:00 Ondansetron HCl (Zofran Inj) 4 mg Q6H PRN IV NAUSEA AND/OR VOMITING Last administered on 07/05/17 09:31; Admin Dose 4 MG; Start 06/30/17 at 22:00 Hydralazine HCl (Apresoline) 10 mg Q6 PRN IV ELEVATED SYSTOLIC BP Last administered on 07/04/17 20:47; Admin Dose 10 MG; Start 06/30/17 at 22:00 Insulin Aspart (Novolog Insulin Pen) (Adult SC Insulin - Mild Algorithm)... Q6 SC Last administered on 07/11/17 01:16; Admin Dose 1 UNIT; Start 07/01/17 at 00:00 Cyclobenzaprine HCl (Flexeril) 10 mg BID PRN GTB Hiccups Last administered on 07/03/17 08:40; Admin Dose 10 MG; Start 07/01/17 at 22:00 Acetaminophen (Tylenol Liquid) 650 mg DAILY PRN GTB PAIN AND OR ELEVATED TEMP; Start 07/04/17 at 10:30 Amlodipine Besylate (Norvasc) 5 mg BID GTB Last administered on 07/13/17 08: 33; Admin Dose 5 MG; Start 07/04/17 at 21:00 Ascorbic Acid (Vitamin C) 500 mg DAILY GTB Last administered on 07/13/17 08: 33; Admin Dose 500 MG; Start 07/05/17 at 09:00 Bisacodyl (Dulcolax Supp) 10 mg Q24H [place] Last administered on 07/13/17 12:28; Admin Dose 10 MG; Start 07/04/17 at 10:30 Clonidine (Catapres) 0.2 mg DAILY GTB Last administered on 07/13/17 08:33; Admin Dose 0.2 MG; Start 07/05/17 at 09:00 Diphenhydramine HCl (Benadryl) 25 mg Q6H PRN GTB ITCHING Last administered on 07/13/17 05:07; Admin Dose 25 MG; Start 07/04/17 at 10:30 Hydralazine HCl (Apresoline) 50 mg Q6H PRN PO ELEVATED BLOOD PRESSURE; Start 07/04/17 at 10:30 Insulin Glargine (Lantus) 18 unit QHS SC Last administered on 07/12/17 21:37 ; Admin Dose 18 UNIT; Start 07/04/17 at 21:00 Lansoprazole (Prevacid) 30 mg BID GTB Last administered on 07/13/17 08:33; Admin Dose 30 MG; Start 07/04/17 at 21:00 Nitroglycerin (Nitroglycerin (Sl Tab) 0.4 Mg) 0.4 tab [id number] PRN SL CHEST PAIN; Start 07/04/17 at 10:30 Tamsulosin HCl (Flomax) 0.4 mg DAILY PO ; Start 07/05/17 at 09:00 Zinc Sulfate (Zinc Sulfate) 220 mg DAILY GTB Last administered on 07/13/17 08 :33; Admin Dose 220 MG; Start 07/05/17 at 09:00 Docusate Sodium (Colace Liquid Cup) 200 mg QHS PRN GTB CONSTIPATION Last administered on 07/13/17 05:07; Admin Dose 200 MG; Start 07/04/17 at 10:37 Miscellaneous Information 1 ea NOTE XX ; Start 07/04/17 at 11:00 Glucose (Glutose) 15 gm Q15M PRN PO DECREASED GLUCOSE; Start 07/04/17 at 11:00 Glucose (Glutose) 22.5 gm Q15M PRN PO DECREASED GLUCOSE; Start 07/04/17 at 11: 00 Dextrose (D50w Syringe) 25 ml Q15M PRN IV DECREASED GLUCOSE; Start 07/04/17 at 11:00 Dextrose (D50w Syringe) 50 ml Q15M PRN IV DECREASED GLUCOSE; Start 07/04/17 at 11:00 Glucagon (Glucagen) 1 mg Q15M PRN IM DECREASED GLUCOSE; Start 07/04/17 at 11: 00 Glucose 15 gm 15 gm Q15M PRN BUCCAL DECREASED GLUCOSE; Start 07/04/17 at 11:00 Meropenem/Sodium Chloride (Merrem 500mg/50 ml(Pmx)) 50 ml @ 100 mls/hr Q24H IVPB Last administered on 07/12/17 21:36; Admin Dose 100 MLS/HR; Start 07/05 at 21:00 Famotidine (Pepcid) 10 mg DAILY GTB Last administered on 07/13/17 08:33; Admin Dose 10 MG; Start 07/08/17 at 09:00 KAYLA CASTREJON NP Jul 13, 2017 13:56
[2017-07-13 14:30] VITALS: BP 120/61; RESP 16
--- NOTE | 2017-07-13 16:54 | PN ---
Date/Time of Note Date/Time of Note DATE: 07/13/17 TIME: 16:49 Assessment/Plan Lines/Catheters IV Catheter Type (from [facility]): permacath Flores in Place (from [facility]): Yes Assessment/Plan Chief Complaint/Hosp Course 1. Cholelithiasis with Negative HIDA (no acute cholecystitis); no abdominal pain /tenderness -no lap avery: previously discussed with family and patient-wanting to manage conservatively at this point -pain management 2. UTI: -abx per sensitivity -frequent bladder emptying/cath care 3. Leukocytosis: likely 2/2 #2, ? 1, pna, normalized -as above -monitor 4. Anemia: no acute bleed noted -monitor -transfuse as needed 5. ESRD on HD -HD per renal -avoid/limit nephrotoxic meds -judicious fluids -renally dose meds 6. Electrolyte imbalance: -optimize lytes 7. Elevated LFT: -as above 8. Hypoalbuminemia: multifactorial -optimize nutrition as able -management of infection/inflammation 9. Dysphagia with feeding tube: on tube feeds -continue tf with aspiration precautions 10. PNA: ?aspiration, s/p abx -as above Thank you. Patient seen and examined in collaboration with Dr. Abraham Bojorquez. Problems: Exam/Review of Systems Vital Signs Vitals Vital Signs Date Time Temp Pulse Resp B/P Pulse Ox O2 Delivery O2 Flow Rate FiO2 07/13/17 14:30 97.9 74 16 120/61 99 07/12/17 20:05 Room Air Intake and Output 07/12/17 07/12/17 07/13/17 14:59 22:59 06:59 Intake Total 550 ml 680 ml Output Total 2500 ml 100 ml Balance -1950 ml 580 ml Exam Free Text/Dictation Constitutional: alert, oriented, responsive Head: atraumatic, normocephalic Eyes: nl lids, nl sclera ENMT: mucosa pink and moist, nl nasal mucosa & septum Neck: non-tender, supple Respiratory: normal air movement, No labored breathing Cardiovascular: regular rate and rhythm Gastrointestinal: non-tender, other (peg), soft Genitourinary - Male: nl penis, nl scrotum Musculoskeletal: nl extremities to inspection Extremities: normal pulses Neurological: No nl mental status, No nl speech (delayed) Skin: nl turgor Results Result Diagram: 07/13/17 1128 07/13/17 1128 SUSSY PAL NP Jul 13, 2017 16:53
--- NOTE | 2017-07-13 18:24 | PN ---
Date/Time of Note Date/Time of Note DATE: 07/13/17 TIME: 18:23 Assessment/Plan VTE Prophylaxis VTE Prophylaxis Intervention: SCD's Lines/Catheters IV Catheter Type (from [facility]): Saline Lock Urinary Cath still in place: Yes Reason Cath still needed: urinary retention Assessment/Plan Chief Complaint/Hosp Course Patient has completed completed treatment with antibiotics, will check CBC tomorrow, stable anticipate discharge to fdc facility Assessment/Plan - Possible acute cholecystitis, continue abx. Dr. Bojorquez is following in general surgery consultation. Family prefer to manage conservatively versus surgery. - E. coli UTI, continue meropenem. - Acute kidney injury on chronic kidney disease. Continue hemodialysis per renal. Dr. Cheema is following in nephrology consultation. - History of cerebrovascular accident - Diabetes mellitus. Continue Lantus and NovoLog. - Diastolic congestive heart failure. Continue to monitor intake and output. - Paroxysmal atrial fibrillation, currently in sinus rhythm. - Hypertension. - Hyperlipidemia. - Dysphagia with G-tube. Further recommendations based on clinical course. Plan of care discussed with Dr. Patel Problems: Exam/Review of Systems Vital Signs Vitals Vital Signs Date Time Temp Pulse Resp B/P Pulse Ox O2 Delivery O2 Flow Rate FiO2 07/13/17 14:30 97.9 74 16 120/61 99 07/12/17 20:05 Room Air Intake and Output 07/12/17 07/12/17 07/13/17 15:00 23:00 07:00 Intake Total 550 ml 680 ml Output Total 2500 ml 100 ml Balance -1950 ml 580 ml Exam Constitutional: alert Neck: supple Respiratory: normal air movement Cardiovascular: nl pulses Gastrointestinal: other (G-tube), soft, tender Musculoskeletal: muscle weakness Extremities: normal pulses Results Result Diagram: 07/13/17 1128 07/13/17 1128 Results 24 hrs Laboratory Tests Test 07/12/17 21:35 07/13/17 00:56 07/13/17 05:07 07/13/17 11:28 Bedside Glucose 102 106 80 White Blood Count 10.4 # Red Blood Count 3.40 L Hemoglobin 10.1 L Hematocrit 31.5 L Mean Corpuscular Volume 92.6 Mean Corpuscular Hemoglobin 29.7 Mean Corpuscular Hemoglobin Concent 32.1 Red Cell Distribution Width 14.5 Platelet Count 273 # Mean Platelet Volume 11.3 H Neutrophils % 69.7 Lymphocytes % 16.6 Monocytes % 7.9 Eosinophils % 4.6 Basophils % 0.7 Nucleated Red Blood Cells % 0.0 Neutrophils # 7.2 Lymphocytes # 1.7 Monocytes # 0.8 Eosinophils # 0.5 Basophils # 0.1 Nucleated Red Blood Cells # 0.0 Sodium Level 134 L Potassium Level 4.3 Chloride Level 99 Carbon Dioxide Level 26 Anion Gap 13 Blood Urea Nitrogen 49 #H Creatinine 3.43 #H Glucose Level 144 # Calcium Level 8.7 Test 07/13/17 12:26 07/13/17 18:04 Bedside Glucose 128 129 Medications Medications Current Medications Miscellaneous Information [facility] TO DOSE ONCE XX ; Start 06/30/17 at 22: 00 Acetaminophen (Ofirmev 1000mg/ 100ml Iv) 100 ml @ 400 mls/hr Q6H PRN IVPB PAIN /FEVER Last administered on 06/30/17 23:53; Admin Dose 400 MLS/HR; Start at 22:00 Morphine Sulfate (morphine) 2 mg Q4H PRN IV PAIN; Start 06/30/17 at 22:00 Ondansetron HCl (Zofran Inj) 4 mg Q6H PRN IV NAUSEA AND/OR VOMITING Last administered on 07/05/17 09:31; Admin Dose 4 MG; Start 06/30/17 at 22:00 Hydralazine HCl (Apresoline) 10 mg Q6 PRN IV ELEVATED SYSTOLIC BP Last administered on 07/04/17 20:47; Admin Dose 10 MG; Start 06/30/17 at 22:00 Insulin Aspart (Novolog Insulin Pen) (Adult SC Insulin - Mild Algorithm)... Q6 [place] Last administered on 07/11/17 01:16; Admin Dose 1 UNIT; Start 07/01/17 at 00:00 Cyclobenzaprine HCl (Flexeril) 10 mg BID PRN GTB Hiccups Last administered on 07/03/17 08:40; Admin Dose 10 MG; Start 07/01/17 at 22:00 Acetaminophen (Tylenol Liquid) 650 mg DAILY PRN GTB PAIN AND OR ELEVATED TEMP; Start 07/04/17 at 10:30 Amlodipine Besylate (Norvasc) 5 mg BID GTB Last administered on 07/13/17 08: 33; Admin Dose 5 MG; Start 07/04/17 at 21:00 Ascorbic Acid (Vitamin C) 500 mg DAILY GTB Last administered on 07/13/17 08: 33; Admin Dose 500 MG; Start 07/05/17 at 09:00 Bisacodyl (Dulcolax Supp) 10 mg Q24H [place] Last administered on 07/13/17 12:28; Admin Dose 10 MG; Start 07/04/17 at 10:30 Clonidine (Catapres) 0.2 mg DAILY GTB Last administered on 07/13/17 08:33; Admin Dose 0.2 MG; Start 07/05/17 at 09:00 Diphenhydramine HCl (Benadryl) 25 mg Q6H PRN GTB ITCHING Last administered on 07/13/17 05:07; Admin Dose 25 MG; Start 07/04/17 at 10:30 Hydralazine HCl (Apresoline) 50 mg Q6H PRN PO ELEVATED BLOOD PRESSURE; Start 07/04/17 at 10:30 Insulin Glargine (Lantus) 18 unit QHS SC Last administered on 07/12/17 21:37 ; Admin Dose 18 UNIT; Start 07/04/17 at 21:00 Lansoprazole (Prevacid) 30 mg BID GTB Last administered on 07/13/17 08:33; Admin Dose 30 MG; Start 07/04/17 at 21:00 Nitroglycerin (Nitroglycerin (Sl Tab) 0.4 Mg) 0.4 tab [id number] PRN SL CHEST PAIN; Start 07/04/17 at 10:30 Tamsulosin HCl (Flomax) 0.4 mg DAILY PO ; Start 07/05/17 at 09:00 Zinc Sulfate (Zinc Sulfate) 220 mg DAILY GTB Last administered on 07/13/17 08 :33; Admin Dose 220 MG; Start 07/05/17 at 09:00 Docusate Sodium (Colace Liquid Cup) 200 mg QHS PRN GTB CONSTIPATION Last administered on 07/13/17 05:07; Admin Dose 200 MG; Start 07/04/17 at 10:37 Miscellaneous Information 1 ea NOTE XX ; Start 07/04/17 at 11:00 Glucose (Glutose) 15 gm Q15M PRN PO DECREASED GLUCOSE; Start 07/04/17 at 11:00 Glucose (Glutose) 22.5 gm Q15M PRN PO DECREASED GLUCOSE; Start 07/04/17 at 11: 00 Dextrose (D50w Syringe) 25 ml Q15M PRN IV DECREASED GLUCOSE; Start 07/04/17 at 11:00 Dextrose (D50w Syringe) 50 ml Q15M PRN IV DECREASED GLUCOSE; Start 07/04/17 at 11:00 Glucagon (Glucagen) 1 mg Q15M PRN IM DECREASED GLUCOSE; Start 07/04/17 at 11: 00 Glucose (Glutose) 15 gm Q15M PRN BUCCAL DECREASED GLUCOSE; Start 07/04/17 at 11:00 Famotidine (Pepcid) 10 mg DAILY GTB Last administered on 07/13/17t 08:33; Admin Dose 10 MG; Start 07/08/17 at 09:00 GEOVANY IBARRA Jul 13, 2017 18:24
--- NOTE | 2017-07-13 19:00 | CONS ---
Date/Time of Note Date/Time of Note DATE: 07/13/17 TIME: 18:58 Assessment/Plan Assessment/Plan Chief Complaint/Hosp Course 1. Sepsis, better. 2. Pneumonia. 3. The patient has cholecystitis. 4. G tube status 5. Anemia. 6. Chronic kidney disease 5. 7. ESRD Problems: Additional Assessment/Plan 1. continue HD twice a week 2. No nephrotoxic medications found Consultation Date/Type/Reason Admit Date/Time Jun 30, 2017 at 19:01 Initial Consult Date 07/01/17 Type of Consultation: ID Referring Provider: KE JAVED MD 24 HR Interval Summary Subjective hx not possible: other (confused) Exam/Review of Systems Vital Signs Vitals Vital Signs Date Time Temp Pulse Resp B/P Pulse Ox O2 Delivery O2 Flow Rate FiO2 07/13/17 14:30 97.9 74 16 120/61 99 07/12/17 20:05 Room Air Intake and Output 07/12/17 07/12/17 07/13/17 15:00 23:00 07:00 Intake Total 550 ml 680 ml Output Total 2500 ml 100 ml Balance -1950 ml 580 ml Exam Eyes: nl conjunctiva ENMT: nl external ears & nose Respiratory: diminished breath sounds Cardiovascular: irregular rhythm Gastrointestinal: other (gtube) Results Result Diagram: 07/13/17 1128 07/13/17 1128 Results 24 hrs Laboratory Tests Test 07/12/17 21:35 07/13/17 00:56 07/13/17 05:07 07/13/17 11:28 Bedside Glucose 102 106 80 White Blood Count 10.4 # Red Blood Count 3.40 L Hemoglobin 10.1 L Hematocrit 31.5 L Mean Corpuscular Volume 92.6 Mean Corpuscular Hemoglobin 29.7 Mean Corpuscular Hemoglobin Concent 32.1 Red Cell Distribution Width 14.5 Platelet Count 273 # Mean Platelet Volume 11.3 H Neutrophils % 69.7 Lymphocytes % 16.6 Monocytes % 7.9 Eosinophils % 4.6 Basophils % 0.7 Nucleated Red Blood Cells % 0.0 Neutrophils # 7.2 Lymphocytes # 1.7 Monocytes # 0.8 Eosinophils # 0.5 Basophils # 0.1 Nucleated Red Blood Cells # 0.0 Sodium Level 134 L Potassium Level 4.3 Chloride Level 99 Carbon Dioxide Level 26 Anion Gap 13 Blood Urea Nitrogen 49 #H Creatinine 3.43 #H Glucose Level 144 # Calcium Level 8.7 Test 07/13/17 12:26 07/13/17 18:04 Bedside Glucose 128 129 Medications Medications Current Medications Miscellaneous Information [facility] TO DOSE ONCE XX ; Start 06/30/17 at 22: 00 Acetaminophen (Ofirmev 1000mg/ 100ml Iv) 100 ml @ 400 mls/hr Q6H PRN IVPB PAIN /FEVER Last administered on 06/30/17 23:53; Admin Dose 400 MLS/HR; Start at 22:00 Morphine Sulfate (morphine) 2 mg Q4H PRN IV PAIN; Start 06/30/17 at 22:00 Ondansetron HCl (Zofran Inj) 4 mg Q6H PRN IV NAUSEA AND/OR VOMITING Last administered on 07/05/17 09:31; Admin Dose 4 MG; Start 06/30/17 at 22:00 Hydralazine HCl (Apresoline) 10 mg Q6 PRN IV ELEVATED SYSTOLIC BP Last administered on 07/04/17 20:47; Admin Dose 10 MG; Start 06/30/17 at 22:00 Insulin Aspart (Novolog Insulin Pen) (Adult SC Insulin - Mild Algorithm)... Q6 SC Last administered on 07/11/17 01:16; Admin Dose 1 UNIT; Start 07/01/17 at 00:00 Cyclobenzaprine HCl (Flexeril) 10 mg BID PRN GTB Hiccups Last administered on 07/03/17 08:40; Admin Dose 10 MG; Start 07/01/17 at 22:00 Acetaminophen (Tylenol Liquid) 650 mg DAILY PRN GTB PAIN AND OR ELEVATED TEMP; Start 07/04/17 at 10:30 Amlodipine Besylate (Norvasc) 5 mg BID GTB Last administered on 07/13/17 08: 33; Admin Dose 5 MG; Start 07/04/17 at 21:00 Ascorbic Acid (Vitamin C) 500 mg DAILY GTB Last administered on 07/13/17 08: 33; Admin Dose 500 MG; Start 07/05/17 at 09:00 Bisacodyl (Dulcolax Supp) 10 mg Q24H TN Last administered on 07/13/17 12:28; Admin Dose 10 MG; Start 07/04/17 at 10:30 Clonidine (Catapres) 0.2 mg DAILY GTB Last administered on 07/13/17 08:33; Admin Dose 0.2 MG; Start 07/05/17 at 09:00 Diphenhydramine HCl (Benadryl) 25 mg Q6H PRN GTB ITCHING Last administered on 07/13/17 05:07; Admin Dose 25 MG; Start 07/04/17 at 10:30 Hydralazine HCl (Apresoline) 50 mg Q6H PRN PO ELEVATED BLOOD PRESSURE; Start 07/04/17 at 10:30 Insulin Glargine (Lantus) 18 unit QHS SC Last administered on 07/12/17 21:37 ; Admin Dose 18 UNIT; Start 07/04/17 at 21:00 Lansoprazole (Prevacid) 30 mg BID GTB Last administered on 07/13/17 08:33; Admin Dose 30 MG; Start 07/04/17 at 21:00 Nitroglycerin (Nitroglycerin (Sl Tab) 0.4 Mg) 0.4 tab [id number] PRN SL CHEST PAIN; Start 07/04/17 at 10:30 Tamsulosin HCl (Flomax) 0.4 mg DAILY PO ; Start 07/05/17 at 09:00 Zinc Sulfate (Zinc Sulfate) 220 mg DAILY GTB Last administered on 07/13/17 08 :33; Admin Dose 220 MG; Start 07/05/17 at 09:00 Docusate Sodium (Colace Liquid Cup) 200 mg QHS PRN GTB CONSTIPATION Last administered on 07/13/17 05:07; Admin Dose 200 MG; Start 07/04/17 at 10:37 Miscellaneous Information 1 ea NOTE XX ; Start 07/04/17 at 11:00 Glucose (Glutose) 15 gm Q15M PRN PO DECREASED GLUCOSE; Start 07/04/17 at 11:00 Glucose (Glutose) 22.5 gm Q15M PRN PO DECREASED GLUCOSE; Start 07/04/17 at 11: 00 Dextrose (D50w Syringe) 25 ml Q15M PRN IV DECREASED GLUCOSE; Start 07/04/17 at 11:00 Dextrose (D50w Syringe) 50 ml Q15M PRN IV DECREASED GLUCOSE; Start 07/04/17 at 11:00 Glucagon (Glucagen) 1 mg Q15M PRN IM DECREASED GLUCOSE; Start 07/04/17 at 11: 00 Glucose (Glutose) 15 gm Q15M PRN BUCCAL DECREASED GLUCOSE; Start 07/04/17 at 11:00 Famotidine (Pepcid) 10 mg DAILY GTB Last administered on 07/13/17 08:33; Admin Dose 10 MG; Start 07/08/17 at 09:00 CHELSIE HERNÁNDEZ Jul 13, 2017 19:00
[2017-07-13 20:13] VITALS: BP 109/58; RESP 20
[2017-07-13] MEDS: INSULIN GLARGINE [LANtus] 3 ML PEN SC SCH (20:39)
[2017-07-14] VITALS (12 sets, daily range): BP systolic 88–161; BP diastolic 45–76; PULSE 82–92; RESP 16–19
[2017-07-14] MEDS: Insulin NOVOLOG SS MILD Algorithm (NPO/TPN/ENTERAL FEEDS) SC SCH ×4 (06:00→16:55)
[2017-07-14 06:46] LABS: BASOPHIL # 0.1 10^3/ul (0.0-0.1); BASOPHILS % 0.7 % (0.0-2.0); EOSINOPHILS # 0.7 10^3/ul (0.0-0.5); HEMATOCRIT 35.5 % (42.0-52.0); HEMOGLOBIN 11.5 g/dl (14.0-18.0); LYMPHOCYTES # 2.3 10^3/ul (0.8-2.9); LYMPHOCYTES % 17.8 % (15.0-51.0); MEAN CORPUSCULAR HEMOGLOBIN 29.5 pg (29.0-33.0); MEAN CORPUSCULAR HGB CONC 32.4 g/dl (32.0-37.0); MEAN PLATELET VOLUME 11.6 fl (7.4-10.4); MONOCYTE # 1.1 10^3/ul (0.3-0.9); MONOCYTES % 8.2 % (0.0-11.0); NEUTROPHIL # 8.8 10^3/ul (1.6-7.5); NEUTROPHILS % 67.6 % (39.0-77.0); PLATELET COUNT 298 10^3/UL (140-415); RED CELL DISTRIBUTION WIDTH 14.2 % (11.5-14.5)
[2017-07-14 07:12] LABS: CALCIUM 9.1 mg/dl (8.4-10.2); CREATININE 4.56 mg/dl (0.61-1.24); POTASSIUM 4.6 mmol/L (3.5-5.1)
[2017-07-14] MEDS: AMLODIPINE 5 MG TAB GTB SCH ×2 (08:23→22:16)
[2017-07-14] MEDS: ZINC SULFATE 220 MG CAP GTB SCH (08:35)
[2017-07-14] MEDS: FAMOTIDINE 20 MG TAB GTB SCH (08:35)
[2017-07-14] MEDS: DIPHENHYDRAMINE 25 MG CAP GTB PRN ×2 (08:35→17:39)
[2017-07-14] MEDS: ASCORBIC ACID 500 MG TAB GTB SCH (08:35)
[2017-07-14] MEDS: BALSAM PERU/CASTOR OIL 60 GM TUBE TOP SCH ×2 (08:35→22:17)
[2017-07-14] MEDS: LANSOPRAZOLE 30 MG CAP GTB SCH ×2 (08:35→22:16)
--- NOTE | 2017-07-14 10:44 | PN ---
Date/Time of Note Date/Time of Note DATE: 07/14/17 TIME: 10:39 Assessment/Plan Lines/Catheters IV Catheter Type (from [email or web address] Saline Lock Flores in Place (from [facility] [[email or web address] Yes Assessment/Plan Chief Complaint/Hosp Course 1. Cholelithiasis with Negative HIDA (no acute cholecystitis); no abdominal pain /tenderness -no lap avery: previously discussed with family and patient-wanting to manage conservatively at this point -pain management 2. UTI: -abx per sensitivity -frequent bladder emptying/cath care 3. Leukocytosis: likely 2/2 #2, pna, hypoglycemia; up again -as above -monitor 4. Anemia: no acute bleed noted -monitor -transfuse as needed 5. ESRD on HD -HD per renal -avoid/limit nephrotoxic meds -judicious fluids -renally dose meds 6. Electrolyte imbalance: -optimize lytes 7. Elevated LFT: -as above 8. Hypoalbuminemia: multifactorial -optimize nutrition as able -management of infection/inflammation 9. Dysphagia with feeding tube: on tube feeds -continue tf with aspiration precautions 10. PNA: ?aspiration, s/p abx -as above 11. Hypoglycemia: -optimize nutrition -med adjustment Thank you. Patient seen and examined in collaboration with Dr. Abraham Bojorquez. Problems: Subjective 24 Hr Interval Summary Leukocytosis. Hypoglycemia per lab draw. Tolerating feeding. Constipated. No fevers, chills, sob, congested cough, cp, palpitations, hernandez, dizziness, n/v/d/ dysuria. Exam/Review of Systems Vital Signs Vitals Vital Signs Date Time Temp Pulse Resp B/P Pulse Ox O2 Delivery O2 Flow Rate FiO2 07/14/17 08:40 98.6 80 18 116/73 96 07/12/17 20:05 Room Air Intake and Output 07/13/17 07/13/17 07/14/17 15:00 23:00 07:00 Intake Total 680 ml Output Total 100 ml Balance 580 ml Exam Free Text/Dictation Constitutional: alert, oriented, responsive, somnolent Head: atraumatic, normocephalic Eyes: nl lids, nl sclera ENMT: mucosa pink and moist, nl nasal mucosa & septum Neck: non-tender, supple Respiratory: normal air movement, No labored breathing Cardiovascular: regular rate and rhythm Gastrointestinal: non-tender, other (peg), soft Genitourinary - Male: nl penis, nl scrotum Musculoskeletal: nl extremities to inspection Extremities: normal pulses Neurological: No nl mental status, No nl speech (delayed) Skin: nl turgor Results Result Diagram: 07/14/1760107/14/17601 SUSSY PAL NP Jul 14, 2017 10:44
[2017-07-14] MEDS: BISACODYL 10 MG SUPP PR SCH (11:50)
--- NOTE | 2017-07-14 12:56 | CONS ---
Date/Time of Note Date/Time of Note DATE: 07/14/17 TIME: 12:55 Assessment/Plan Assessment/Plan Chief Complaint/Hosp Course 1. Sepsis, better. 2. Pneumonia. 3. The patient has cholecystitis. 4. G tube status 5. Anemia. 6. Chronic kidney disease 5. 7. ESRD Problems: Additional Assessment/Plan 1. Hd today Consultation Date/Type/Reason Admit Date/Time Jun 30, 2017 at 19:01 Initial Consult Date 07/01/17 Type of Consultation: nephrology Reason for Consultation dr Cheema Referring Provider: KE JAVED MD 24 HR Interval Summary Constitutional: disoriented Exam/Review of Systems Vital Signs Vitals Vital Signs Date Time Temp Pulse Resp B/P Pulse Ox O2 Delivery O2 Flow Rate FiO2 07/14/17 08:40 98.6 80 18 116/73 96 07/12/17 20:05 Room Air Intake and Output 07/13/17 07/13/17 07/14/17 15:00 23:00 07:00 Intake Total 680 ml Output Total 100 ml Balance 580 ml Exam Constitutional: frail Neck: supple Respiratory: clear to auscultation, diminished breath sounds Cardiovascular: irregular rhythm Neurological: confused Results Result Diagram: 07/14/17 0602 07/14/17 0602 Results 24 hrs Laboratory Tests Test 07/13/17 18:04 07/13/17 20:35 07/14/17 00:16 07/14/17 05:56 Bedside Glucose 129 140 84 81 Test 07/14/17 06:02 07/14/17 10:42 07/14/17 12:05 White Blood Count 13.0 #H Red Blood Count 3.90 L Hemoglobin 11.5 L Hematocrit 35.5 L Mean Corpuscular Volume 91.0 Mean Corpuscular Hemoglobin 29.5 Mean Corpuscular Hemoglobin Concent 32.4 Red Cell Distribution Width 14.2 Platelet Count 298 Mean Platelet Volume 11.6 H Neutrophils % 67.6 Lymphocytes % 17.8 Monocytes % 8.2 Eosinophils % 5.0 Basophils % 0.7 Nucleated Red Blood Cells % 0.0 Neutrophils # 8.8 H Lymphocytes # 2.3 Monocytes # 1.1 H Eosinophils # 0.7 H Basophils # 0.1 Nucleated Red Blood Cells # 0.0 Sodium Level 137 Potassium Level 4.6 Chloride Level 98 Carbon Dioxide Level 28 Anion Gap 16 Blood Urea Nitrogen 79 #H Creatinine 4.56 #H Glucose Level 61 #L Calcium Level 9.1 Bedside Glucose 89 103 Medications Medications Current Medications Miscellaneous Information [facility] TO DOSE ONCE XX ; Start 06/30/17 at 22: 00 Acetaminophen (Ofirmev 1000mg/ 100ml Iv) 100 ml @ 400 mls/hr Q6H PRN IVPB PAIN /FEVER Last administered on 06/30/17 23:53; Admin Dose 400 MLS/HR; Start at 22:00 Morphine Sulfate (morphine) 2 mg Q4H PRN IV PAIN; Start 06/30/17 at 22:00 Ondansetron HCl (Zofran Inj) 4 mg Q6H PRN IV NAUSEA AND/OR VOMITING Last administered on 07/05/17 09:31; Admin Dose 4 MG; Start 06/30/17 at 22:00 Hydralazine HCl (Apresoline) 10 mg Q6 PRN IV ELEVATED SYSTOLIC BP Last administered on 07/04/17 20:47; Admin Dose 10 MG; Start 06/30/17 at 22:00 Insulin Aspart (Novolog Insulin Pen) (Adult SC Insulin - Mild Algorithm)... Q6 SC Last administered on 07/11/17 01:16; Admin Dose 1 UNIT; Start 07/01/17 at 00:00 Cyclobenzaprine HCl (Flexeril) 10 mg BID PRN GTB Hiccups Last administered on 07/03/17 08:40; Admin Dose 10 MG; Start 07/01/17 at 22:00 Acetaminophen (Tylenol Liquid) 650 mg DAILY PRN GTB PAIN AND OR ELEVATED TEMP; Start 07/04/17 at 10:30 Amlodipine Besylate (Norvasc) 5 mg BID GTB Last administered on 07/13/17 20: 26; Admin Dose 5 MG; Start 07/04/17 at 21:00 Ascorbic Acid (Vitamin C) 500 mg DAILY GTB Last administered on 07/14/17 08: 35; Admin Dose 500 MG; Start 07/05/17 at 09:00 Bisacodyl (Dulcolax Supp) 10 mg Q24H SC Last administered on 07/14/17 11:50; Admin Dose 10 MG; Start 07/04/17 at 10:30 Clonidine (Catapres) 0.2 mg DAILY GTB Last administered on 07/13/17 08:33; Admin Dose 0.2 MG; Start 07/05/17 at 09:00 Diphenhydramine HCl (Benadryl) 25 mg Q6H PRN GTB ITCHING Last administered on 07/14/17 08:35; Admin Dose 25 MG; Start 07/04/17 at 10:30 Hydralazine HCl (Apresoline) 50 mg Q6H PRN PO ELEVATED BLOOD PRESSURE; Start 07/04/17 at 10:30 Insulin Glargine (Lantus) 18 unit QHS SC Last administered on 07/13/17 20:39 ; Admin Dose 18 UNIT; Start 07/04/17 at 21:00 Lansoprazole (Prevacid) 30 mg BID GTB Last administered on 07/14/17 08:35; Admin Dose 30 MG; Start 07/04/17 at 21:00 Nitroglycerin (Nitroglycerin (Sl Tab) 0.4 Mg) 0.4 tab [id number] PRN SL CHEST PAIN; Start 07/04/17 at 10:30 Tamsulosin HCl (Flomax) 0.4 mg DAILY PO ; Start 07/05/17 at 09:00 Zinc Sulfate (Zinc Sulfate) 220 mg DAILY GTB Last administered on 07/14/17 08 :35; Admin Dose 220 MG; Start 07/05/17 at 09:00 Docusate Sodium (Colace Liquid Cup) 200 mg QHS PRN GTB CONSTIPATION Last administered on 07/13/17 05:07; Admin Dose 200 MG; Start 07/04/17 at 10:37 Miscellaneous Information 1 ea NOTE XX ; Start 07/04/17 at 11:00 Glucose (Glutose) 15 gm Q15M PRN PO DECREASED GLUCOSE; Start 07/04/17 at 11:00 Glucose (Glutose) 22.5 gm Q15M PRN PO DECREASED GLUCOSE; Start 07/04/17 at 11: 00 Dextrose (D50w Syringe) 25 ml Q15M PRN IV DECREASED GLUCOSE; Start 07/04/17 at 11:00 Dextrose (D50w Syringe) 50 ml Q15M PRN IV DECREASED GLUCOSE; Start 07/04/17 at 11:00 Glucagon (Glucagen) 1 mg Q15M PRN IM DECREASED GLUCOSE; Start 07/04/17 at 11: 00 Glucose (Glutose) 15 gm Q15M PRN BUCCAL DECREASED GLUCOSE; Start 07/04/17 at 11:00 Famotidine (Pepcid) 10 mg DAILY GTB Last administered on 07/14/17t 08:35; Admin Dose 10 MG; Start 07/08/17 at 09:00 CHELSIE HERNÁNDEZ Jul 14, 2017 12:56
--- NOTE | 2017-07-14 14:41 | CONS ---
Date/Time of Note Date/Time of Note DATE: 07/14/17 TIME: 14:39 Assessment/Plan Assessment/Plan Chief Complaint/Hosp Course SUBJECTIVE: Clinically unchanged. Lethargic, noncommunicative, no fevers, no diarrhea per report INDWELLINGS: Right chest PermCath, PEG, Flores. MICROBIOLOGY: Urine culture on admission grew E. coli. Blood cultures have been negative. ANTIMICROBIALS: NONE, status post Merrem PHYSICAL EXAMINATION: GENERAL: This is a chronically ill-appearing, elderly man who is in no distress. HEENT: Head atraumatic, normocephalic. Sclerae anicteric. Buccal mucosa dry. NECK: Supple. CHEST: Rise symmetrical. Breath sounds diminished to bases. HEART: S1, S2. ABDOMEN: Soft, bowel tones present. EXTREMITIES: Without cyanosis. ASSESSMENT: 1. Status post stable sepsis. 2. Healthcare-associated pneumonia, possibly aspiration. 3. Urinary tract infection. 4. End-stage renal disease. 5. Dysphagia. 6. Encephalopathy. 7. Diabetes. PLAN: The patient remains stable, antibiotics discontinued yesterday, he is afebrile, no diarrhea, repeat urine culture negative, with increased leukocytosis today. We are going to repeat chest x-ray in a.m. order blood cultures with next hemodialysis, continue aspiration precautions. Dw staff Problems: Consultation Date/Type/Reason Admit Date/Time Jun 30, 2017 at 19:01 Initial Consult Date 07/01/17 Type of Consultation: ID Referring Provider: KE JAVED MD Exam/Review of Systems Vital Signs Vitals Vital Signs Date Time Temp Pulse Resp B/P Pulse Ox O2 Delivery O2 Flow Rate FiO2 07/14/17 08:40 98.6 80 18 116/73 96 07/12/17 20:05 Room Air Intake and Output 07/13/17 07/13/17 07/14/17 15:00 23:00 07:00 Intake Total 680 ml Output Total 100 ml Balance 580 ml Results Result Diagram: 07/14/17 0602 07/14/17 0602 Results 24 hrs Laboratory Tests Test 07/13/17 18:04 07/13/17 20:35 07/14/17 00:16 07/14/17 05:56 Bedside Glucose 129 140 84 81 Test 07/14/17 06:02 07/14/17 10:42 07/14/17 12:05 White Blood Count 13.0 #H Red Blood Count 3.90 L Hemoglobin 11.5 L Hematocrit 35.5 L Mean Corpuscular Volume 91.0 Mean Corpuscular Hemoglobin 29.5 Mean Corpuscular Hemoglobin Concent 32.4 Red Cell Distribution Width 14.2 Platelet Count 298 Mean Platelet Volume 11.6 H Neutrophils % 67.6 Lymphocytes % 17.8 Monocytes % 8.2 Eosinophils % 5.0 Basophils % 0.7 Nucleated Red Blood Cells % 0.0 Neutrophils # 8.8 H Lymphocytes # 2.3 Monocytes # 1.1 H Eosinophils # 0.7 H Basophils # 0.1 Nucleated Red Blood Cells # 0.0 Sodium Level 137 Potassium Level 4.6 Chloride Level 98 Carbon Dioxide Level 28 Anion Gap 16 Blood Urea Nitrogen 79 #H Creatinine 4.56 #H Glucose Level 61 #L Calcium Level 9.1 Bedside Glucose 89 103 Medications Medications Current Medications Miscellaneous Information [facility] TO DOSE ONCE XX ; Start 06/30/17 at 22: 00 Acetaminophen (Ofirmev 1000mg/ 100ml Iv) 100 ml @ 400 mls/hr Q6H PRN IVPB PAIN /FEVER Last administered on 06/30/17 23:53; Admin Dose 400 MLS/HR; Start at 22:00 Morphine Sulfate (morphine) 2 mg Q4H PRN IV PAIN; Start 06/30/17 at 22:00 Ondansetron HCl (Zofran Inj) 4 mg Q6H PRN IV NAUSEA AND/OR VOMITING Last administered on 07/05/17 09:31; Admin Dose 4 MG; Start 06/30/17 at 22:00 Hydralazine HCl (Apresoline) 10 mg Q6 PRN IV ELEVATED SYSTOLIC BP Last administered on 07/04/17 20:47; Admin Dose 10 MG; Start 06/30/17 at 22:00 Insulin Aspart (Novolog Insulin Pen) (Adult SC Insulin - Mild Algorithm)... Q6 SC Last administered on 07/11/17 01:16; Admin Dose 1 UNIT; Start 07/01/17 at 00:00 Cyclobenzaprine HCl (Flexeril) 10 mg BID PRN GTB Hiccups Last administered on 07/03/17 08:40; Admin Dose 10 MG; Start 07/01/17 at 22:00 Acetaminophen (Tylenol Liquid) 650 mg DAILY PRN GTB PAIN AND OR ELEVATED TEMP; Start 07/04/17 at 10:30 Amlodipine Besylate (Norvasc) 5 mg BID GTB Last administered on 07/13/17 20: 26; Admin Dose 5 MG; Start 07/04/17 at 21:00 Ascorbic Acid (Vitamin C) 500 mg DAILY GTB Last administered on 07/14/17 08: 35; Admin Dose 500 MG; Start 07/05/17 at 09:00 Bisacodyl (Dulcolax Supp) 10 mg Q24H SC Last administered on 07/14/17 11:50; Admin Dose 10 MG; Start 07/04/17 at 10:30 Clonidine (Catapres) 0.2 mg DAILY GTB Last administered on 07/13/17 08:33; Admin Dose 0.2 MG; Start 07/05/17 at 09:00 Diphenhydramine HCl (Benadryl) 25 mg Q6H PRN GTB ITCHING Last administered on 07/14/17 08:35; Admin Dose 25 MG; Start 07/04/17 at 10:30 Hydralazine HCl (Apresoline) 50 mg Q6H PRN PO ELEVATED BLOOD PRESSURE; Start 07/04/17 at 10:30 Insulin Glargine (Lantus) 18 unit QHS SC Last administered on 07/13/17 20:39 ; Admin Dose 18 UNIT; Start 07/04/17 at 21:00 Lansoprazole (Prevacid) 30 mg BID GTB Last administered on 07/14/17 08:35; Admin Dose 30 MG; Start 07/04/17 at 21:00 Nitroglycerin (Nitroglycerin (Sl Tab) 0.4 Mg) 0.4 tab [id number] PRN SL CHEST PAIN; Start 07/04/17 at 10:30 Tamsulosin HCl (Flomax) 0.4 mg DAILY PO ; Start 07/05/17 at 09:00 Zinc Sulfate (Zinc Sulfate) 220 mg DAILY GTB Last administered on 07/14/17 08 :35; Admin Dose 220 MG; Start 07/05/17 at 09:00 Docusate Sodium (Colace Liquid Cup) 200 mg QHS PRN GTB CONSTIPATION Last administered on 07/13/17 05:07; Admin Dose 200 MG; Start 07/04/17 at 10:37 Miscellaneous Information 1 ea NOTE XX ; Start 07/04/17 at 11:00 Glucose (Glutose) 15 gm Q15M PRN PO DECREASED GLUCOSE; Start 07/04/17 at 11:00 Glucose (Glutose) 22.5 gm Q15M PRN PO DECREASED GLUCOSE; Start 07/04/17 at 11: 00 Dextrose (D50w Syringe) 25 ml Q15M PRN IV DECREASED GLUCOSE; Start 07/04/17 at 11:00 Dextrose (D50w Syringe) 50 ml Q15M PRN IV DECREASED GLUCOSE; Start 07/04/17 at 11:00 Glucagon (Glucagen) 1 mg Q15M PRN IM DECREASED GLUCOSE; Start 07/04/17 at 11: 00 Glucose (Glutose) 15 gm Q15M PRN BUCCAL DECREASED GLUCOSE; Start 07/04/17 at 11:00 Famotidine (Pepcid) 10 mg DAILY GTB Last administered on 07/14/17t 08:35; Admin Dose 10 MG; Start 07/08/17 at 09:00 KAYLA CASTREJON NP Jul 14, 2017 14:41
--- NOTE | 2017-07-14 16:15 | RADRPT ---
PROCEDURE: XR Chest. CLINICAL INDICATION: Cough TECHNIQUE: Single AP view of the chest was obtained COMPARISON: 11/05/2016 FINDINGS: The heart, lungs and osseous structures are unremarkable. Aorta is tortuous and atherosclerotic. Right central line terminates at the right atrium. RPTAT: KK IMPRESSION: No acute disease. Missael Connor Physician Date Time Electronically viewed and signed by Missael Connor, Physician on 07/14/2017 16:15 CO/
--- NOTE | 2017-07-14 17:57 | PN ---
Date/Time of Note Date/Time of Note DATE: 07/14/17 TIME: 17:55 Assessment/Plan VTE Prophylaxis VTE Prophylaxis Intervention: SCD's Lines/Catheters [facility] Urinary Cath still in place: Yes Reason Cath still needed: urinary retention Assessment/Plan Chief Complaint/Hosp Course Patient patient with increased leukocytosis today no fever, completed treatment with antibiotics which was stopped yesterday, follow-up on chest x-ray and cultures. Assessment/Plan - Possible acute cholecystitis, continue abx. Dr. Bojorquez is following in general surgery consultation. Family prefer to manage conservatively versus surgery. - E. coli UTI, continue meropenem. - Acute kidney injury on chronic kidney disease. Continue hemodialysis per renal. Dr. Cheema is following in nephrology consultation. - History of cerebrovascular accident - Diabetes mellitus. Continue Lantus and NovoLog. - Diastolic congestive heart failure. Continue to monitor intake and output. - Paroxysmal atrial fibrillation, currently in sinus rhythm. - Hypertension. - Hyperlipidemia. - Dysphagia with G-tube. Further recommendations based on clinical course. Plan of care discussed with Dr. Patel Problems: Exam/Review of Systems Vital Signs Vitals Vital Signs Date Time Temp Pulse Resp B/P Pulse Ox O2 Delivery O2 Flow Rate FiO2 07/14/17 15:45 90 07/14/17 14:45 16 07/14/17 08:40 98.6 116/73 96 07/12/17 20:05 Room Air Intake and Output 07/13/17 07/13/17 07/14/17 15:00 23:00 07:00 Intake Total 680 ml Output Total 100 ml Balance 580 ml Exam Constitutional: alert Neck: supple Respiratory: normal air movement Cardiovascular: nl pulses Gastrointestinal: other (G-tube), soft, tender Musculoskeletal: muscle weakness Extremities: normal pulses Results Result Diagram: 07/14/17 0602 07/14/17 0602 Results 24 hrs Laboratory Tests Test 07/13/17 18:04 07/13/17 20:35 07/14/17 00:16 07/14/17 05:56 Bedside Glucose 129 140 84 81 Test 07/14/17 06:02 07/14/17 10:42 07/14/17 12:05 07/14/17 16:55 White Blood Count 13.0 #H Red Blood Count 3.90 L Hemoglobin 11.5 L Hematocrit 35.5 L Mean Corpuscular Volume 91.0 Mean Corpuscular Hemoglobin 29.5 Mean Corpuscular Hemoglobin Concent 32.4 Red Cell Distribution Width 14.2 Platelet Count 298 Mean Platelet Volume 11.6 H Neutrophils % 67.6 Lymphocytes % 17.8 Monocytes % 8.2 Eosinophils % 5.0 Basophils % 0.7 Nucleated Red Blood Cells % 0.0 Neutrophils # 8.8 H Lymphocytes # 2.3 Monocytes # 1.1 H Eosinophils # 0.7 H Basophils # 0.1 Nucleated Red Blood Cells # 0.0 Sodium Level 137 Potassium Level 4.6 Chloride Level 98 Carbon Dioxide Level 28 Anion Gap 16 Blood Urea Nitrogen 79 #H Creatinine 4.56 #H Glucose Level 61 #L Calcium Level 9.1 Bedside Glucose 89 103 136 Medications Medications Current Medications Miscellaneous Information [facility] TO DOSE ONCE XX ; Start 06/30/17 at 22: 00 Acetaminophen (Ofirmev 1000mg/ 100ml Iv) 100 ml @ 400 mls/hr Q6H PRN IVPB PAIN /FEVER Last administered on 06/30/17 23:53; Admin Dose 400 MLS/HR; Start at 22:00 Morphine Sulfate (morphine) 2 mg Q4H PRN IV PAIN; Start 06/30/17 at 22:00 Ondansetron HCl (Zofran Inj) 4 mg Q6H PRN IV NAUSEA AND/OR VOMITING Last administered on 07/05/17 09:31; Admin Dose 4 MG; Start 06/30/17 at 22:00 Hydralazine HCl (Apresoline) 10 mg Q6 PRN IV ELEVATED SYSTOLIC BP Last administered on 07/04/17 20:47; Admin Dose 10 MG; Start 06/30/17 at 22:00 Insulin Aspart (Novolog Insulin Pen) (Adult SC Insulin - Mild Algorithm)... Q6 [place] Last administered on 07/11/17 01:16; Admin Dose 1 UNIT; Start 07/01/17 at 00:00 Cyclobenzaprine HCl (Flexeril) 10 mg BID PRN GTB Hiccups Last administered on 07/03/17 08:40; Admin Dose 10 MG; Start 07/01/17 at 22:00 Acetaminophen (Tylenol Liquid) 650 mg DAILY PRN GTB PAIN AND OR ELEVATED TEMP; Start 07/04/17 at 10:30 Amlodipine Besylate (Norvasc) 5 mg BID GTB Last administered on 07/13/17 20: 26; Admin Dose 5 MG; Start 07/04/17 at 21:00 Ascorbic Acid (Vitamin C) 500 mg DAILY GTB Last administered on 07/14/17 08: 35; Admin Dose 500 MG; Start 07/05/17 at 09:00 Bisacodyl (Dulcolax Supp) 10 mg Q24H [place] Last administered on 07/14/17 11:50; Admin Dose 10 MG; Start 07/04/17 at 10:30 Clonidine (Catapres) 0.2 mg DAILY GTB Last administered on 07/13/17 08:33; Admin Dose 0.2 MG; Start 07/05/17 at 09:00 Diphenhydramine HCl (Benadryl) 25 mg Q6H PRN GTB ITCHING Last administered on 07/14/17 17:39; Admin Dose 25 MG; Start 07/04/17 at 10:30 Hydralazine HCl (Apresoline) 50 mg Q6H PRN PO ELEVATED BLOOD PRESSURE; Start 07/04/17 at 10:30 Insulin Glargine (Lantus) 18 unit QHS SC Last administered on 07/13/17 20:39 ; Admin Dose 18 UNIT; Start 07/04/17 at 21:00 Lansoprazole (Prevacid) 30 mg BID GTB Last administered on 07/14/17 08:35; Admin Dose 30 MG; Start 07/04/17 at 21:00 Nitroglycerin (Nitroglycerin (Sl Tab) 0.4 Mg) 0.4 tab [id number] PRN SL CHEST PAIN; Start 07/04/17 at 10:30 Tamsulosin HCl (Flomax) 0.4 mg DAILY PO ; Start 07/05/17 at 09:00 Zinc Sulfate (Zinc Sulfate) 220 mg DAILY GTB Last administered on 07/14/17 08 :35; Admin Dose 220 MG; Start 07/05/17 at 09:00 Docusate Sodium (Colace Liquid Cup) 200 mg QHS PRN GTB CONSTIPATION Last administered on 07/13/17 05:07; Admin Dose 200 MG; Start 07/04/17 at 10:37 Miscellaneous Information 1 ea NOTE XX ; Start 07/04/17 at 11:00 Glucose (Glutose) 15 gm Q15M PRN PO DECREASED GLUCOSE; Start 07/04/17 at 11:00 Glucose (Glutose) 22.5 gm Q15M PRN PO DECREASED GLUCOSE; Start 07/04/17 at 11: 00 Dextrose (D50w Syringe) 25 ml Q15M PRN IV DECREASED GLUCOSE; Start 07/04/17 at 11:00 Dextrose (D50w Syringe) 50 ml Q15M PRN IV DECREASED GLUCOSE; Start 07/04/17 at 11:00 Glucagon (Glucagen) 1 mg Q15M PRN IM DECREASED GLUCOSE; Start 07/04/17 at 11: 00 Glucose (Glutose) 15 gm Q15M PRN BUCCAL DECREASED GLUCOSE; Start 07/04/17 at 11:00 Famotidine (Pepcid) 10 mg DAILY GTB Last administered on 07/14/17t 08:35; Admin Dose 10 MG; Start 07/08/17 at 09:00 GEOVANY IBARRA Jul 14, 2017 17:57
[2017-07-14] MEDS: INSULIN GLARGINE [LANtus] 3 ML PEN SC SCH (21:00)
[2017-07-14] MEDS ORDERED: INSULIN GLARGINE [LANtus] 3 ML PEN SC ONE (22:30)
[2017-07-15] MEDS: hydrALAzine 20 MG INJ IV PRN (01:55)
[2017-07-15 02:00] VITALS: BP 161/72; RESP 18
[2017-07-15 03:14] VITALS: BP 133/78; PULSE 92
[2017-07-15 03:50] VITALS: BP 120/62; PULSE 88
[2017-07-15] MEDS: DIPHENHYDRAMINE 25 MG CAP GTB PRN ×3 (03:51→20:35)
[2017-07-15] MEDS: Insulin NOVOLOG SS MILD Algorithm (NPO/TPN/ENTERAL FEEDS) SC SCH ×5 (05:23→23:56)
[2017-07-15 08:11] VITALS: BP 132/61; RESP 16
[2017-07-15] MEDS: BISACODYL 10 MG SUPP PR SCH (09:29)
[2017-07-15] MEDS: ASCORBIC ACID 500 MG TAB GTB SCH (09:30)
[2017-07-15] MEDS: FAMOTIDINE 20 MG TAB GTB SCH (09:30)
[2017-07-15] MEDS: LANSOPRAZOLE 30 MG CAP GTB SCH ×2 (09:31→20:36)
[2017-07-15] MEDS: ZINC SULFATE 220 MG CAP GTB SCH (09:31)
[2017-07-15] MEDS: AMLODIPINE 5 MG TAB GTB SCH ×2 (09:31→20:36)
[2017-07-15] MEDS: BALSAM PERU/CASTOR OIL 60 GM TUBE TOP SCH ×2 (09:32→20:37)
--- NOTE | 2017-07-15 10:46 | PN ---
Date/Time of Note Date/Time of Note DATE: 07/15/17 TIME: 10:41 Assessment/Plan VTE Prophylaxis VTE Prophylaxis Intervention: other Lines/Catheters IV Catheter Type (from Nrs): Saline Lock Urinary Cath still in place: Yes Reason Cath still needed: urinary retention Assessment/Plan Assessment/Plan -Gallbladder fossa abscess/bile leak. S/p drainage by radiology. Positive HIDA scan. S/p ERCP and stent placement into the right hepatic duct and left hepatic duct on 07/[address] Mills. Cyst fluid culture positive for VRE, continue Zyvox. Dr. Lopes is following in infection disease consultation -S/p laparoscopic cholecystectomy 07/18/17. -Status post ERCP with stent placement status post subsequent stent removal -Hypertension -Hypothyroidism -RA Further recommendations based on clinical course. Plan of care discussed with Dr. Patel Subjective 24 Hr Interval Summary Free Text/Dictation resting, wbc trended up, placement pending, dw staff. Exam/Review of Systems Vital Signs Vitals Vital Signs Date Time Temp Pulse Resp B/P Pulse Ox O2 Delivery O2 Flow Rate FiO2 07/15/17 08:11 97.5 86 16 132/61 99 07/12/17 20:05 Room Air Intake and Output 07/14/17 07/14/17 07/15/17 15:00 23:00 07:00 Intake Total 980 ml 600 ml Output Total 1550 ml 200 ml Balance -570 ml 400 ml Exam Constitutional: alert Respiratory: diminished breath sounds, normal air movement Cardiovascular: nl pulses Gastrointestinal: non-tender, soft Musculoskeletal: nl extremities to inspection Neurological: confused Results Result Diagram: 07/14/17 0602 07/14/17 0602 Results 24 hrs Laboratory Tests Test 07/14/17 10:42 07/14/17 12:05 07/14/17 16:55 07/14/17 22:06 Bedside Glucose 89 103 136 95 Test 07/15/17 00:21 07/15/17 05:21 Bedside Glucose 90 126 Medications Medications Current Medications Miscellaneous Information [facility] TO DOSE ONCE XX ; Start 06/30/17 at 22: 00 Acetaminophen (Ofirmev 1000mg/ 100ml Iv) 100 ml @ 400 mls/hr Q6H PRN IVPB PAIN /FEVER Last administered on 06/30/17t 23:53; Admin Dose 400 MLS/HR; Start at 22:00 Morphine Sulfate (morphine) 2 mg Q4H PRN IV PAIN; Start 06/30/17 at 22:00 Ondansetron HCl (Zofran Inj) 4 mg Q6H PRN IV NAUSEA AND/OR VOMITING Last administered on 07/05/17 09:31; Admin Dose 4 MG; Start 06/30/17 at 22:00 Hydralazine HCl (Apresoline) 10 mg Q6 PRN IV ELEVATED SYSTOLIC BP Last administered on 07/15/17 01:55; Admin Dose 10 MG; Start 06/30/17 at 22:00 Insulin Aspart (Novolog Insulin Pen) (Adult SC Insulin - Mild Algorithm)... Q6 [place] Last administered on 07/11/17 01:16; Admin Dose 1 UNIT; Start 07/01/17 at 00:00 Cyclobenzaprine HCl (Flexeril) 10 mg BID PRN GTB Hiccups Last administered on 07/03/17 08:40; Admin Dose 10 MG; Start 07/01/17 at 22:00 Acetaminophen (Tylenol Liquid) 650 mg DAILY PRN GTB PAIN AND OR ELEVATED TEMP; Start 07/04/17 at 10:30 Amlodipine Besylate (Norvasc) 5 mg BID GTB Last administered on 07/15/17 09: 31; Admin Dose 5 MG; Start 07/04/17 at 21:00 Ascorbic Acid (Vitamin C) 500 mg DAILY GTB Last administered on 07/15/17 09: 30; Admin Dose 500 MG; Start 07/05/17 at 09:00 Bisacodyl (Dulcolax Supp) 10 mg Q24H [place] Last administered on 07/14/17 11:50; Admin Dose 10 MG; Start 07/04/17 at 10:30 Clonidine (Catapres) 0.2 mg DAILY GTB Last administered on 07/15/17 09:31; Admin Dose 0.2 MG; Start 07/05/17 at 09:00 Diphenhydramine HCl (Benadryl) 25 mg Q6H PRN GTB ITCHING Last administered on 07/15/17 03:51; Admin Dose 25 MG; Start 07/04/17 at 10:30 Hydralazine HCl (Apresoline) 50 mg Q6H PRN PO ELEVATED BLOOD PRESSURE; Start 07/04/17 at 10:30 Insulin Glargine (Lantus) 18 unit QHS SC Last administered on 07/13/17 20:39 ; Admin Dose 18 UNIT; Start 07/04/17 at 21:00 Lansoprazole (Prevacid) 30 mg BID GTB Last administered on 07/15/17 09:31; Admin Dose 30 MG; Start 07/04/17 at 21:00 Nitroglycerin (Nitroglycerin (Sl Tab) 0.4 Mg) 0.4 tab [id number] PRN SL CHEST PAIN; Start 07/04/17 at 10:30 Tamsulosin HCl (Flomax) 0.4 mg DAILY PO ; Start 07/05/17 at 09:00 Zinc Sulfate (Zinc Sulfate) 220 mg DAILY GTB Last administered on 07/15/17 09 :31; Admin Dose 220 MG; Start 07/05/17 at 09:00 Docusate Sodium (Colace Liquid Cup) 200 mg QHS PRN GTB CONSTIPATION Last administered on 07/13/17 05:07; Admin Dose 200 MG; Start 07/04/17 at 10:37 Miscellaneous Information 1 ea NOTE XX ; Start 07/04/17 at 11:00 Glucose (Glutose) 15 gm Q15M PRN PO DECREASED GLUCOSE; Start 07/04/17 at 11:00 Glucose (Glutose) 22.5 gm Q15M PRN PO DECREASED GLUCOSE; Start 07/04/17 at 11: 00 Dextrose (D50w Syringe) 25 ml Q15M PRN IV DECREASED GLUCOSE; Start 07/04/17 at 11:00 Dextrose (D50w Syringe) 50 ml Q15M PRN IV DECREASED GLUCOSE; Start 07/04/17 at 11:00 Glucagon (Glucagen) 1 mg Q15M PRN IM DECREASED GLUCOSE; Start 07/04/17 at 11: 00 Glucose (Glutose) 15 gm Q15M PRN BUCCAL DECREASED GLUCOSE; Start 07/04/17 at 11:00 Famotidine (Pepcid) 10 mg DAILY GTB Last administered on 07/15/17 09:30; Admin Dose 10 MG; Start 07/08/17 at 09:00 MARCY WEINER Jul 15, 2017 10:46
--- NOTE | 2017-07-15 11:04 | CONS ---
Date/Time of Note Date/Time of Note DATE: 07/15/17 TIME: 11:03 Assessment/Plan Assessment/Plan Chief Complaint/Hosp Course 1. Sepsis, better. 2. Pneumonia. 3. The patient has cholecystitis. 4. G tube status 5. Anemia. 6. Chronic kidney disease 5. 7. ESRD Problems: Additional Assessment/Plan 1. continue HD 2. Blood sugar and blood pressure are under control Consultation Date/Type/Reason Admit Date/Time Jun 30, 2017 at 19:01 Initial Consult Date 07/01/17 Type of Consultation: ID Referring Provider: KE JAVED MD 24 HR Interval Summary Subjective hx not possible: other (confused) Exam/Review of Systems Vital Signs Vitals Vital Signs Date Time Temp Pulse Resp B/P Pulse Ox O2 Delivery O2 Flow Rate FiO2 07/15/17 08:11 97.5 86 16 132/61 99 07/12/17 20:05 Room Air Intake and Output 07/14/17 07/14/17 07/15/17 15:00 23:00 07:00 Intake Total 980 ml 600 ml Output Total 1550 ml 200 ml Balance -570 ml 400 ml Exam Constitutional: frail Head: normocephalic Eyes: nl conjunctiva ENMT: nl external ears & nose Neck: supple Respiratory: diminished breath sounds Neurological: confused Results Result Diagram: 07/14/17 0602 07/14/17 0602 Results 24 hrs Laboratory Tests Test 07/14/17 12:05 07/14/17 16:55 07/14/17 22:06 07/15/17 00:21 Bedside Glucose 103 136 95 90 Test 07/15/17 05:21 Bedside Glucose 126 Medications Medications Current Medications Miscellaneous Information [facility] TO DOSE ONCE XX ; Start 06/30/17 at 22: 00 Acetaminophen (Ofirmev 1000mg/ 100ml Iv) 100 ml @ 400 mls/hr Q6H PRN IVPB PAIN /FEVER Last administered on 06/30/17 23:53; Admin Dose 400 MLS/HR; Start at 22:00 Morphine Sulfate (morphine) 2 mg Q4H PRN IV PAIN; Start 06/30/17 at 22:00 Ondansetron HCl (Zofran Inj) 4 mg Q6H PRN IV NAUSEA AND/OR VOMITING Last administered on 07/05/17 09:31; Admin Dose 4 MG; Start 06/30/17 at 22:00 Hydralazine HCl (Apresoline) 10 mg Q6 PRN IV ELEVATED SYSTOLIC BP Last administered on 07/15/17 01:55; Admin Dose 10 MG; Start 06/30/17 at 22:00 Insulin Aspart (Novolog Insulin Pen) (Adult SC Insulin - Mild Algorithm)... Q6 [place] Last administered on 07/11/17 01:16; Admin Dose 1 UNIT; Start 07/01/17 at 00:00 Cyclobenzaprine HCl (Flexeril) 10 mg BID PRN GTB Hiccups Last administered on 07/03/17 08:40; Admin Dose 10 MG; Start 07/01/17 at 22:00 Acetaminophen (Tylenol Liquid) 650 mg DAILY PRN GTB PAIN AND OR ELEVATED TEMP; Start 07/04/17 at 10:30 Amlodipine Besylate (Norvasc) 5 mg BID GTB Last administered on 07/15/17 09: 31; Admin Dose 5 MG; Start 07/04/17 at 21:00 Ascorbic Acid (Vitamin C) 500 mg DAILY GTB Last administered on 07/15/17 09: 30; Admin Dose 500 MG; Start 07/05/17 at 09:00 Bisacodyl (Dulcolax Supp) 10 mg Q24H [place] Last administered on 07/14/17 11:50; Admin Dose 10 MG; Start 07/04/17 at 10:30 Clonidine (Catapres) 0.2 mg DAILY GTB Last administered on 07/15/17 09:31; Admin Dose 0.2 MG; Start 07/05/17 at 09:00 Diphenhydramine HCl (Benadryl) 25 mg Q6H PRN GTB ITCHING Last administered on 07/15/17 03:51; Admin Dose 25 MG; Start 07/04/17 at 10:30 Hydralazine HCl (Apresoline) 50 mg Q6H PRN PO ELEVATED BLOOD PRESSURE; Start 07/04/17 at 10:30 Insulin Glargine (Lantus) 18 unit QHS SC Last administered on 07/13/17 20:39 ; Admin Dose 18 UNIT; Start 07/04/17 at 21:00 Lansoprazole (Prevacid) 30 mg BID GTB Last administered on 07/15/17 09:31; Admin Dose 30 MG; Start 07/04/17 at 21:00 Nitroglycerin (Nitroglycerin (Sl Tab) 0.4 Mg) 0.4 tab [id number] PRN SL CHEST PAIN; Start 07/04/17 at 10:30 Tamsulosin HCl (Flomax) 0.4 mg DAILY PO ; Start 07/05/17 at 09:00 Zinc Sulfate (Zinc Sulfate) 220 mg DAILY GTB Last administered on 07/15/17 09 :31; Admin Dose 220 MG; Start 07/05/17 at 09:00 Docusate Sodium (Colace Liquid Cup) 200 mg QHS PRN GTB CONSTIPATION Last administered on 07/13/17 05:07; Admin Dose 200 MG; Start 07/04/17 at 10:37 Miscellaneous Information 1 ea NOTE XX ; Start 07/04/17 at 11:00 Glucose (Glutose) 15 gm Q15M PRN PO DECREASED GLUCOSE; Start 07/04/17 at 11:00 Glucose (Glutose) 22.5 gm Q15M PRN PO DECREASED GLUCOSE; Start 07/04/17 at 11: 00 Dextrose (D50w Syringe) 25 ml Q15M PRN IV DECREASED GLUCOSE; Start 07/04/17 at 11:00 Dextrose (D50w Syringe) 50 ml Q15M PRN IV DECREASED GLUCOSE; Start 07/04/17 at 11:00 Glucagon (Glucagen) 1 mg Q15M PRN IM DECREASED GLUCOSE; Start 07/04/17 at 11: 00 Glucose (Glutose) 15 gm Q15M PRN BUCCAL DECREASED GLUCOSE; Start 07/04/17 at 11:00 Famotidine (Pepcid) 10 mg DAILY GTB Last administered on 07/15/17 09:30; Admin Dose 10 MG; Start 07/08/17 at 09:00 CHELSIE HERNÁNDEZ Jul 15, 2017 11:04
--- NOTE | 2017-07-15 12:42 | CONS ---
Date/Time of Note Date/Time of Note DATE: 07/15/17 TIME: 12:41 Assessment/Plan Assessment/Plan Chief Complaint/Hosp Course SUBJECTIVE: Clinically unchanged. Sleeping, no fevers, no diarrhea per report INDWELLINGS: Right chest PermCath, PEG, Flores. MICROBIOLOGY: Urine culture on admission grew E. coli. Blood cultures have been negative. ANTIMICROBIALS: NONE, status post Merrem PHYSICAL EXAMINATION: GENERAL: This is a chronically ill-appearing, elderly man who is in no distress. HEENT: Head atraumatic, normocephalic. Sclerae anicteric. Buccal mucosa dry. NECK: Supple. CHEST: Rise symmetrical. Breath sounds diminished to bases. HEART: S1, S2. ABDOMEN: Soft, bowel tones present. EXTREMITIES: Without cyanosis. ASSESSMENT: 1. Status post stable sepsis. 2. Status post healthcare-associated pneumonia, possibly aspiration. 3. Status post urinary tract infection. 4. End-stage renal disease. 5. Dysphagia. 6. Encephalopathy. 7. Diabetes. PLAN: The patient remains stable, off antibiotics, chest x-ray yesterday revealed no infiltrates, continue present care, aspiration precautions, repeat blood cultures with next hemodialysis Dw staff Problems: Consultation Date/Type/Reason Admit Date/Time Jun 30, 2017 at 19:01 Initial Consult Date 07/01/17 Type of Consultation: ID Referring Provider: KE JAVED MD Exam/Review of Systems Vital Signs Vitals Vital Signs Date Time Temp Pulse Resp B/P Pulse Ox O2 Delivery O2 Flow Rate FiO2 07/15/17 08:11 97.5 86 16 132/61 99 07/12/17 20:05 Room Air Intake and Output 07/14/17 07/14/17 07/15/17 15:00 23:00 07:00 Intake Total 980 ml 600 ml Output Total 1550 ml 200 ml Balance -570 ml 400 ml Results Result Diagram: 07/14/17 0602 07/14/17 0602 Results 24 hrs Laboratory Tests Test 07/14/17 16:55 07/14/17 22:06 07/15/17 00:21 07/15/17 05:21 Bedside Glucose 136 95 90 126 Test 07/15/17 12:13 Bedside Glucose 132 Medications Medications Current Medications Miscellaneous Information [facility] TO DOSE ONCE XX ; Start 06/30/17 at 22: 00 Acetaminophen (Ofirmev 1000mg/ 100ml Iv) 100 ml @ 400 mls/hr Q6H PRN IVPB PAIN /FEVER Last administered on 06/30/17 23:53; Admin Dose 400 MLS/HR; Start at 22:00 Morphine Sulfate (morphine) 2 mg Q4H PRN IV PAIN; Start 06/30/17 at 22:00 Ondansetron HCl (Zofran Inj) 4 mg Q6H PRN IV NAUSEA AND/OR VOMITING Last administered on 07/05/17 09:31; Admin Dose 4 MG; Start 06/30/17 at 22:00 Hydralazine HCl (Apresoline) 10 mg Q6 PRN IV ELEVATED SYSTOLIC BP Last administered on 07/15/17 01:55; Admin Dose 10 MG; Start 06/30/17 at 22:00 Insulin Aspart (Novolog Insulin Pen) (Adult SC Insulin - Mild Algorithm)... Q6 [place] Last administered on 07/11/17 01:16; Admin Dose 1 UNIT; Start 07/01/17 at 00:00 Cyclobenzaprine HCl (Flexeril) 10 mg BID PRN GTB Hiccups Last administered on 07/03/17 08:40; Admin Dose 10 MG; Start 07/01/17 at 22:00 Acetaminophen (Tylenol Liquid) 650 mg DAILY PRN GTB PAIN AND OR ELEVATED TEMP; Start 07/04/17 at 10:30 Amlodipine Besylate (Norvasc) 5 mg BID GTB Last administered on 07/15/17 09: 31; Admin Dose 5 MG; Start 07/04/17 at 21:00 Ascorbic Acid (Vitamin C) 500 mg DAILY GTB Last administered on 07/15/17 09: 30; Admin Dose 500 MG; Start 07/05/17 at 09:00 Bisacodyl (Dulcolax Supp) 10 mg Q24H [place] Last administered on 07/14/17 11:50; Admin Dose 10 MG; Start 07/04/17 at 10:30 Clonidine (Catapres) 0.2 mg DAILY GTB Last administered on 07/15/17 09:31; Admin Dose 0.2 MG; Start 07/05/17 at 09:00 Diphenhydramine HCl (Benadryl) 25 mg Q6H PRN GTB ITCHING Last administered on 07/15/17 03:51; Admin Dose 25 MG; Start 07/04/17 at 10:30 Hydralazine HCl (Apresoline) 50 mg Q6H PRN PO ELEVATED BLOOD PRESSURE; Start 07/04/17 at 10:30 Insulin Glargine (Lantus) 18 unit QHS SC Last administered on 07/13/17 20:39 ; Admin Dose 18 UNIT; Start 07/04/17 at 21:00 Lansoprazole (Prevacid) 30 mg BID GTB Last administered on 07/15/17 09:31; Admin Dose 30 MG; Start 07/04/17 at 21:00 Nitroglycerin (Nitroglycerin (Sl Tab) 0.4 Mg) 0.4 tab [id number] PRN SL CHEST PAIN; Start 07/04/17 at 10:30 Tamsulosin HCl (Flomax) 0.4 mg DAILY PO ; Start 07/05/17 at 09:00 Zinc Sulfate (Zinc Sulfate) 220 mg DAILY GTB Last administered on 07/15/17 09 :31; Admin Dose 220 MG; Start 07/05/17 at 09:00 Docusate Sodium (Colace Liquid Cup) 200 mg QHS PRN GTB CONSTIPATION Last administered on 07/13/17 05:07; Admin Dose 200 MG; Start 07/04/17 at 10:37 Miscellaneous Information 1 ea NOTE XX ; Start 07/04/17 at 11:00 Glucose (Glutose) 15 gm Q15M PRN PO DECREASED GLUCOSE; Start 07/04/17 at 11:00 Glucose (Glutose) 22.5 gm Q15M PRN PO DECREASED GLUCOSE; Start 07/04/17 at 11: 00 Dextrose (D50w Syringe) 25 ml Q15M PRN IV DECREASED GLUCOSE; Start 07/04/17 at 11:00 Dextrose (D50w Syringe) 50 ml Q15M PRN IV DECREASED GLUCOSE; Start 07/04/17 at 11:00 Glucagon (Glucagen) 1 mg Q15M PRN IM DECREASED GLUCOSE; Start 07/04/17 at 11: 00 Glucose (Glutose) 15 gm Q15M PRN BUCCAL DECREASED GLUCOSE; Start 07/04/17 at 11:00 Famotidine (Pepcid) 10 mg DAILY GTB Last administered on 07/15/17 09:30; Admin Dose 10 MG; Start 07/08/17 at 09:00 KAYLA CASTREJON NP Jul 15, 2017 12:42
[2017-07-15 14:29] VITALS: BP 114/58; RESP 16
[2017-07-15 20:32] VITALS: BP 132/62; RESP 18
[2017-07-15] MEDS: INSULIN GLARGINE [LANtus] 3 ML PEN SC SCH (20:35)
--- NOTE | 2017-07-15 23:44 | PN ---
Date/Time of Note Date/Time of Note DATE: 07/15/17 TIME: 23:43 Assessment/Plan Lines/Catheters IV C[facility] Type (from [facility] permacath Flores in Place (from [facility]): Yes Assessment/Plan Chief Complaint/Hosp Course 1. Cholelithiasis with Negative HIDA (no acute cholecystitis); no abdominal pain /tenderness -no lap avery per family and patient-wanting to manage conservatively at this point 2. UTI: -abx per sensitivity -frequent bladder emptying/cath care 3. Leukocytosis: likely 2/2 #2, ? 1, ? other -as above -monitor -? kelly cx 4. Anemia: no acute bleed noted -monitor -transfuse as needed 5. ESRD on HD -HD per renal -avoid/limit nephrotoxic meds -judicious fluids -renally dose meds 6. Electrolyte imbalance: -optimize lytes 7. Elevated LFT: -as above 8. Hypoalbuminemia: multifactorial -optimize nutrition as able -management of infection/inflammation 9. Dysphagia with feeding tube: on tube feeds -continue tf with aspiration precautions Thank you Problems: Subjective 24 Hr Interval Summary Leukocytosis. Hypoglycemia per lab draw. Tolerating feeding. Constipated. No fevers, chills, sob, congested cough, cp, palpitations, hernandez, dizziness, n/v/d/ dysuria. Exam/Review of Systems Vital Signs Vitals Vital Signs Date Time Temp Pulse Resp B/P Pulse Ox O2 Delivery O2 Flow Rate FiO2 07/15/17 20:32 97.6 66 18 132/62 100 07/12/17 20:05 Room Air Intake and Output 07/14/17 07/14/17 07/15/17 15:00 23:00 07:00 Intake Total 980 ml 600 ml Output Total 1550 ml 200 ml Balance -570 ml 400 ml Exam Free Text/Dictation Constitutional: alert, oriented, responsive, somnolent Head: atraumatic, normocephalic Eyes: nl lids, nl sclera ENMT: mucosa pink and moist, nl nasal mucosa & septum Neck: non-tender, supple Respiratory: normal air movement, No labored breathing Cardiovascular: regular rate and rhythm Gastrointestinal: non-tender, other (peg), soft Genitourinary - Male: nl penis, nl scrotum Musculoskeletal: nl extremities to inspection Extremities: normal pulses Neurological: No nl mental status, No nl speech (delayed) Skin: nl turgor Results Result Diagram: 07/14/1702 07/14/17 0602 LIZ PARKER MD Jul 15, 2017 23:43
[2017-07-16] VITALS (14 sets, daily range): BP systolic 92–150; BP diastolic 45–78; PULSE 65–104; RESP 16–20
[2017-07-16] MEDS: Insulin NOVOLOG SS MILD Algorithm (NPO/TPN/ENTERAL FEEDS) SC SCH ×4 (06:00→23:57)
[2017-07-16 06:09] LABS: BASOPHIL # 0.1 10^3/ul (0.0-0.1); BASOPHILS % 0.7 % (0.0-2.0); EOSINOPHILS % 8.4 % (0.0-7.0); HEMATOCRIT 33.1 % (42.0-52.0); HEMOGLOBIN 11.1 g/dl (14.0-18.0); LYMPHOCYTES # 2.5 10^3/ul (0.8-2.9); LYMPHOCYTES % 20.5 % (15.0-51.0); MEAN CORPUSCULAR HEMOGLOBIN 29.8 pg (29.0-33.0); MEAN CORPUSCULAR HGB CONC 33.5 g/dl (32.0-37.0); MEAN PLATELET VOLUME 11.5 fl (7.4-10.4); MONOCYTES % 7.9 % (0.0-11.0); NEUTROPHIL # 7.5 10^3/ul (1.6-7.5); NEUTROPHILS % 62.1 % (39.0-77.0); PLATELET COUNT 231 10^3/UL (140-415); RED BLOOD COUNT 3.72 10^6/ul (4.70-6.10); RED CELL DISTRIBUTION WIDTH 13.6 % (11.5-14.5); WHITE BLOOD COUNT 12.1 10^3/ul (4.8-10.8)
[2017-07-16] MEDS: DIPHENHYDRAMINE 25 MG CAP GTB PRN (06:21)
[2017-07-16 06:37] LABS: CALCIUM 8.2 mg/dl (8.4-10.2); CREATININE 4.52 mg/dl (0.61-1.24); POTASSIUM 3.9 mmol/L (3.5-5.1)
[2017-07-16] MEDS: AMLODIPINE 5 MG TAB GTB SCH ×2 (08:52→22:01)
[2017-07-16] MEDS: ZINC SULFATE 220 MG CAP GTB SCH (08:53)
[2017-07-16] MEDS: ASCORBIC ACID 500 MG TAB GTB SCH (08:53)
[2017-07-16] MEDS: LANSOPRAZOLE 30 MG CAP GTB SCH ×2 (08:53→22:02)
[2017-07-16] MEDS: BALSAM PERU/CASTOR OIL 60 GM TUBE TOP SCH ×4 (08:53→22:01)
[2017-07-16] MEDS: FAMOTIDINE 20 MG TAB GTB SCH (08:53)
--- NOTE | 2017-07-16 11:03 | CONS ---
Date/Time of Note Date/Time of Note DATE: 07/16/17 TIME: 11:01 Assessment/Plan Assessment/Plan Chief Complaint/Hosp Course 1. ESRD, on HD 2. Pneumonia. 3. The patient has cholecystitis. 4. G tube status 5. Anemia. 6. Chronic kidney disease 5. 7. Sepsis better Problems: Additional Assessment/Plan 1. continue HD 2. Hyponatremia will be decreased after HD Consultation Date/Type/Reason Admit Date/Time Jun 30, 2017 at 19:01 Initial Consult Date 07/01/17 Type of Consultation: nephrology Reason for Consultation Dr Cheema Referring Provider: KE JAVED MD Exam/Review of Systems Vital Signs Vitals Vital Signs Date Time Temp Pulse Resp B/P Pulse Ox O2 Delivery O2 Flow Rate FiO2 07/16/17 08:23 97.4 76 17 147/71 99 07/12/17 20:05 Room Air Intake and Output 07/15/17 07/15/17 07/16/17 14:59 22:59 06:59 Intake Total 680 ml 600 ml Output Total 100 ml 200 ml Balance 580 ml 400 ml Exam Constitutional: frail Neck: supple Respiratory: diminished breath sounds Cardiovascular: regular rate and rhythm Gastrointestinal: soft Neurological: confused Results Result Diagram: 07/16/17 0556 07/16/17 0556 Results 24 hrs Laboratory Tests Test 07/15/17 12:13 07/15/17 16:54 07/15/17 20:25 07/15/17 23:54 Bedside Glucose 132 121 122 104 Test 07/16/17 05:56 07/16/17 06:18 White Blood Count 12.1 H Red Blood Count 3.72 L Hemoglobin 11.1 L Hematocrit 33.1 L Mean Corpuscular Volume 89.0 Mean Corpuscular Hemoglobin 29.8 Mean Corpuscular Hemoglobin Concent 33.5 Red Cell Distribution Width 13.6 Platelet Count 231 # Mean Platelet Volume 11.5 H Neutrophils % 62.1 Lymphocytes % 20.5 Monocytes % 7.9 Eosinophils % 8.4 H Basophils % 0.7 Nucleated Red Blood Cells % 0.0 Neutrophils # 7.5 Lymphocytes # 2.5 Monocytes # 1.0 H Eosinophils # 1.0 H Basophils # 0.1 Nucleated Red Blood Cells # 0.0 Sodium Level 132 L Potassium Level 3.9 Chloride Level 91 L Carbon Dioxide Level 27 Anion Gap 18 H Blood Urea Nitrogen 74 H Creatinine 4.52 H Glucose Level 104 # Calcium Level 8.2 L Bedside Glucose 122 Medications Medications Current Medications Miscellaneous Information [facility] TO DOSE ONCE XX ; Start 06/30/17 at 22: 00 Acetaminophen (Ofirmev 1000mg/ 100ml Iv) 100 ml @ 400 mls/hr Q6H PRN IVPB PAIN /FEVER Last administered on 06/30/17 23:53; Admin Dose 400 MLS/HR; Start at 22:00 Morphine Sulfate (morphine) 2 mg Q4H PRN IV PAIN; Start 06/30/17 at 22:00 Ondansetron HCl (Zofran Inj) 4 mg Q6H PRN IV NAUSEA AND/OR VOMITING Last administered on 07/05/17 09:31; Admin Dose 4 MG; Start 06/30/17 at 22:00 Hydralazine HCl (Apresoline) 10 mg Q6 PRN IV ELEVATED SYSTOLIC BP Last administered on 07/15/17 01:55; Admin Dose 10 MG; Start 06/30/17 at 22:00 Insulin Aspart (Novolog Insulin Pen) (Adult SC Insulin - Mild Algorithm)... Q6 SC Last administered on 07/11/17 01:16; Admin Dose 1 UNIT; Start 07/01/17 at 00:00 Cyclobenzaprine HCl (Flexeril) 10 mg BID PRN GTB Hiccups Last administered on 07/03/17 08:40; Admin Dose 10 MG; Start 07/01/17 at 22:00 Acetaminophen (Tylenol Liquid) 650 mg DAILY PRN GTB PAIN AND OR ELEVATED TEMP; Start 07/04/17 at 10:30 Amlodipine Besylate (Norvasc) 5 mg BID GTB Last administered on 07/15/17 20: 36; Admin Dose 5 MG; Start 07/04/17 at 21:00 Ascorbic Acid (Vitamin C) 500 mg DAILY GTB Last administered on 07/16/17 08: 53; Admin Dose 500 MG; Start 07/05/17 at 09:00 Bisacodyl (Dulcolax Supp) 10 mg Q24H [place] Last administered on 07/14/17 11:50; Admin Dose 10 MG; Start 07/04/17 at 10:30 Clonidine (Catapres) 0.2 mg DAILY GTB Last administered on 07/15/17 09:31; Admin Dose 0.2 MG; Start 07/05/17 at 09:00 Diphenhydramine HCl (Benadryl) 25 mg Q6H PRN GTB ITCHING Last administered on 07/16/17 06:21; Admin Dose 25 MG; Start 07/04/17 at 10:30 Hydralazine HCl (Apresoline) 50 mg Q6H PRN PO ELEVATED BLOOD PRESSURE; Start 07/04/17 at 10:30 Insulin Glargine (Lantus) 18 unit QHS SC Last administered on 07/15/17 20:35 ; Admin Dose 18 UNIT; Start 07/04/17 at 21:00 Lansoprazole (Prevacid) 30 mg BID GTB Last administered on 07/16/17 08:53; Admin Dose 30 MG; Start 07/04/17 at 21:00 Nitroglycerin (Nitroglycerin (Sl Tab) 0.4 Mg) 0.4 tab [id number] PRN SL CHEST PAIN; Start 07/04/17 at 10:30 Tamsulosin HCl (Flomax) 0.4 mg DAILY PO ; Start 07/05/17 at 09:00 Zinc Sulfate (Zinc Sulfate) 220 mg DAILY GTB Last administered on 07/16/17 08 :53; Admin Dose 220 MG; Start 07/05/17 at 09:00 Docusate Sodium (Colace Liquid Cup) 200 mg QHS PRN GTB CONSTIPATION Last administered on 07/13/17 05:07; Admin Dose 200 MG; Start 07/04/17 at 10:37 Miscellaneous Information 1 ea NOTE XX ; Start 07/04/17 at 11:00 Glucose (Glutose) 15 gm Q15M PRN PO DECREASED GLUCOSE; Start 07/04/17 at 11:00 Glucose (Glutose) 22.5 gm Q15M PRN PO DECREASED GLUCOSE; Start 07/04/17 at 11: 00 Dextrose (D50w Syringe) 25 ml Q15M PRN IV DECREASED GLUCOSE; Start 07/04/17 at 11:00 Dextrose (D50w Syringe) 50 ml Q15M PRN IV DECREASED GLUCOSE; Start 07/04/17 at 11:00 Glucagon (Glucagen) 1 mg Q15M PRN IM DECREASED GLUCOSE; Start 07/04/17 at 11: 00 Glucose (Glutose) 15 gm Q15M PRN BUCCAL DECREASED GLUCOSE; Start 07/04/17 at 11:00 Famotidine (Pepcid) 10 mg DAILY GTB Last administered on 07/16/17t 08:53; Admin Dose 10 MG; Start 07/08/17 at 09:00 CHELSIE HERNÁNDEZ Jul 16, 2017 11:03
--- NOTE | 2017-07-16 12:47 | PN ---
Date/Time of Note Date/Time of Note DATE: 07/16/17 TIME: 12:46 Assessment/Plan VTE Prophylaxis VTE Prophylaxis Intervention: SCD's Lines/Catheters IV Catheter Type (from [facility]): [place] [employer] Central line still needed: Yes Urinary Cath still in place: Yes Reason Cath still needed: urinary retention Assessment/Plan Chief Complaint/Hosp Course Patient undergoing hemodialysis, persistent leukocytosis however no fever, follow up on cultures obtained with hemodialysis, if cultures are negative patient can be discharged to group home facility upon bed availability. Assessment/Plan - Possible acute cholecystitis, continue abx. Dr. Bojorquez is following in general surgery consultation. Family prefer to manage conservatively versus surgery. - E. coli UTI, s/p meropenem. - Acute kidney injury on chronic kidney disease. Continue hemodialysis per renal. Dr. Cheema is following in nephrology consultation. - History of cerebrovascular accident - Diabetes mellitus. Continue Lantus and NovoLog. - Diastolic congestive heart failure. Continue to monitor intake and output. - Paroxysmal atrial fibrillation, currently in sinus rhythm. - Hypertension. - Hyperlipidemia. - Dysphagia with G-tube. Further recommendations based on clinical course. Plan of care discussed with Dr. Patel Problems: Exam/Review of Systems Vital Signs Vitals Vital Signs Date Time Temp Pulse Resp B/P Pulse Ox O2 Delivery O2 Flow Rate FiO2 07/16/17 08:23 97.4 76 17 147/71 99 07/12/17 20:05 Room Air Intake and Output 07/15/17 07/15/17 07/16/17 14:59 22:59 06:59 Intake Total 680 ml 600 ml Output Total 100 ml 200 ml Balance 580 ml 400 ml Exam Constitutional: alert Neck: supple Respiratory: normal air movement Cardiovascular: nl pulses Gastrointestinal: other (G-tube), soft, tender Musculoskeletal: muscle weakness Extremities: normal pulses Results Result Diagram: 07/16/17 0556 07/16/17 0556 Results 24 hrs Laboratory Tests Test 07/15/17 16:54 07/15/17 20:25 07/15/17 23:54 07/16/17 05:56 Bedside Glucose 121 122 104 White Blood Count 12.1 H Red Blood Count 3.72 L Hemoglobin 11.1 L Hematocrit 33.1 L Mean Corpuscular Volume 89.0 Mean Corpuscular Hemoglobin 29.8 Mean Corpuscular Hemoglobin Concent 33.5 Red Cell Distribution Width 13.6 Platelet Count 231 # Mean Platelet Volume 11.5 H Neutrophils % 62.1 Lymphocytes % 20.5 Monocytes % 7.9 Eosinophils % 8.4 H Basophils % 0.7 Nucleated Red Blood Cells % 0.0 Neutrophils # 7.5 Lymphocytes # 2.5 Monocytes # 1.0 H Eosinophils # 1.0 H Basophils # 0.1 Nucleated Red Blood Cells # 0.0 Sodium Level 132 L Potassium Level 3.9 Chloride Level 91 L Carbon Dioxide Level 27 Anion Gap 18 H Blood Urea Nitrogen 74 H Creatinine 4.52 H Glucose Level 104 # Calcium Level 8.2 L Test 07/16/17 06:18 07/16/17 11:31 Bedside Glucose 122 165 Medications Medications Current Medications Miscellaneous Information [facility] TO DOSE ONCE XX ; Start 06/30/17 at 22: 00 Acetaminophen (Ofirmev 1000mg/ 100ml Iv) 100 ml @ 400 mls/hr Q6H PRN IVPB PAIN /FEVER Last administered on 06/30/17 23:53; Admin Dose 400 MLS/HR; Start at 22:00 Morphine Sulfate (morphine) 2 mg Q4H PRN IV PAIN; Start 06/30/17 at 22:00 Ondansetron HCl (Zofran Inj) 4 mg Q6H PRN IV NAUSEA AND/OR VOMITING Last administered on 07/05/17 09:31; Admin Dose 4 MG; Start 06/30/17 at 22:00 Hydralazine HCl (Apresoline) 10 mg Q6 PRN IV ELEVATED SYSTOLIC BP Last administered on 07/15/17 01:55; Admin Dose 10 MG; Start 06/30/17 at 22:00 Insulin Aspart (Novolog Insulin Pen) (Adult SC Insulin - Mild Algorithm)... Q6 [place] Last administered on 07/16/17 11:36; Admin Dose 1 UNIT; Start 07/01/17 at 00:00 Cyclobenzaprine HCl (Flexeril) 10 mg BID PRN GTB Hiccups Last administered on 07/03/17 08:40; Admin Dose 10 MG; Start 07/01/17 at 22:00 Acetaminophen (Tylenol Liquid) 650 mg DAILY PRN GTB PAIN AND OR ELEVATED TEMP; Start 07/04/17 at 10:30 Amlodipine Besylate (Norvasc) 5 mg BID GTB Last administered on 07/15/17 20: 36; Admin Dose 5 MG; Start 07/04/17 at 21:00 Ascorbic Acid (Vitamin C) 500 mg DAILY GTB Last administered on 07/16/17 08: 53; Admin Dose 500 MG; Start 07/05/17 at 09:00 Bisacodyl (Dulcolax Supp) 10 mg Q24H [place] Last administered on 07/14/17 11:50; Admin Dose 10 MG; Start 07/04/17 at 10:30 Clonidine (Catapres) 0.2 mg DAILY GTB Last administered on 07/15/17 09:31; Admin Dose 0.2 MG; Start 07/05/17 at 09:00 Diphenhydramine HCl (Benadryl) 25 mg Q6H PRN GTB ITCHING Last administered on 07/16/17 06:21; Admin Dose 25 MG; Start 07/04/17 at 10:30 Hydralazine HCl (Apresoline) 50 mg Q6H PRN PO ELEVATED BLOOD PRESSURE; Start 07/04/17 at 10:30 Insulin Glargine (Lantus) 18 unit QHS SC Last administered on 07/15/17 20:35 ; Admin Dose 18 UNIT; Start 07/04/17 at 21:00 Lansoprazole (Prevacid) 30 mg BID GTB Last administered on 07/16/17 08:53; Admin Dose 30 MG; Start 07/04/17 at 21:00 Nitroglycerin (Nitroglycerin (Sl Tab) 0.4 Mg) 0.4 tab [id number] PRN SL CHEST PAIN; Start 07/04/17 at 10:30 Tamsulosin HCl (Flomax) 0.4 mg DAILY PO ; Start 07/05/17 at 09:00 Zinc Sulfate (Zinc Sulfate) 220 mg DAILY GTB Last administered on 07/16/17 08 :53; Admin Dose 220 MG; Start 07/05/17 at 09:00 Docusate Sodium (Colace Liquid Cup) 200 mg QHS PRN GTB CONSTIPATION Last administered on 07/13/17 05:07; Admin Dose 200 MG; Start 07/04/17 at 10:37 Miscellaneous Information 1 ea NOTE XX ; Start 07/04/17 at 11:00 Glucose (Glutose) 15 gm Q15M PRN PO DECREASED GLUCOSE; Start 07/04/17 at 11:00 Glucose (Glutose) 22.5 gm Q15M PRN PO DECREASED GLUCOSE; Start 07/04/17 at 11: 00 Dextrose (D50w Syringe) 25 ml Q15M PRN IV DECREASED GLUCOSE; Start 07/04/17 at 11:00 Dextrose (D50w Syringe) 50 ml Q15M PRN IV DECREASED GLUCOSE; Start 07/04/17 at 11:00 Glucagon (Glucagen) 1 mg Q15M PRN IM DECREASED GLUCOSE; Start 07/04/17 at 11: 00 Glucose (Glutose) 15 gm Q15M PRN BUCCAL DECREASED GLUCOSE; Start 07/04/17 at 11:00 Famotidine (Pepcid) 10 mg DAILY GTB Last administered on 07/16/17t 08:53; Admin Dose 10 MG; Start 07/08/17 at 09:00 GEOVANY IBARRA Jul 16, 2017 12:47
[2017-07-16] MEDS: BISACODYL 10 MG SUPP PR SCH (15:17)
--- NOTE | 2017-07-16 19:18 | CONS ---
Date/Time of Note Date/Time of Note DATE: 07/16/17 TIME: 19:15 Assessment/Plan Assessment/Plan Chief Complaint/Hosp Course .ID PROGRESS NOTE ABX DAY #=> OFF ABX day #3 s/p Merrem -> DC'd 07/13/17 24H INTERVAL SUMMARY * A/A/ able to communicate needs, frail, no fevers, nad, vss PHYSICAL EXAMINATION: GENERAL: Thin appearing debilitated M, calm, looks comfortable HEENT: Unremarkable, missing dentition NECK: Trach-> midline, neck supple CHEST: Equal chest rise bilaterally, without dyspnea on observation ABDOMEN: Soft, peg EXTREMITIES: Warm, atrophy & cachexia SKIN: Warm, dry ID ASSESSMENT: 71 yo M w/PMHx CVA w/LE weakness, dementia, dysphagia admitted with: 1. SIRS w/persistent leukocytosis, toxic metabolic encephalopathy => Resolving * Blood Cx (-) * CT ABD (+) patchy bilateral opacities ?infiltrates 2. Recurrent GNR Urinary tract infection-> 2/2 neurogenic bladder w/retention * 06/29/17 URINE CULTURE Final Organism 1 ESCHERICHIA COLI COLONY COUNT >100,000 CFU/ml 3. Dysphagia, status post PEG. 4. HCAP w/CXR 06/30/17: Patchy bibasilar air space disease which may represent infiltrates. * s/p prior admissions MAR 2017 Aspiration PNA w/residual bronchiolitis recent admission 5. Cholelithiasis with Negative HIDA (no acute cholecystitis); no abdominal pain/tenderness-> plan conservative Tx w/pain management 6. Acute on chronic kidney disease. 7. HTN 8. DMII 9. Afib 10. 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 Hx of hip surgery 13. Sacral decub II, heel decub 14. Hx of C.Diff colitis (-)MRSA Nares INVASIVES: Peg, FC, PIV R-AC ABX ALLERGIES: NKDA CURRENT ABX: ABX DAY # 3 s/p =>Merrem ->DC'd 07/13/17 ID RECOMMENDATIONS: 1. Continue to monitor OFF ABX, has completed full course for concern HCAP, UTI 2.May DC OFF ABX as long as remains afebrile . Problems: Consultation Date/Type/Reason Admit Date/Time Jun 30, 2017 at 19:01 Initial Consult Date 07/01/17 Type of Consultation: ID Referring Provider: KE JAVED MD Exam/Review of Systems Vital Signs Vitals Vital Signs Date Time Temp Pulse Resp B/P Pulse Ox O2 Delivery O2 Flow Rate FiO2 07/16/17 18:00 97.8 80 17 134/60 96 Room Air Intake and Output 07/15/17 07/15/17 07/16/17 15:00 23:00 07:00 Intake Total 680 ml 600 ml Output Total 100 ml 200 ml Balance 580 ml 400 ml Results Result Diagram: 07/16/17 0556 07/16/17 0556 Results 24 hrs Laboratory Tests Test 07/15/17 20:25 07/15/17 23:54 07/16/17 05:56 07/16/17 06:18 Bedside Glucose 122 104 122 White Blood Count 12.1 H Red Blood Count 3.72 L Hemoglobin 11.1 L Hematocrit 33.1 L Mean Corpuscular Volume 89.0 Mean Corpuscular Hemoglobin 29.8 Mean Corpuscular Hemoglobin Concent 33.5 Red Cell Distribution Width 13.6 Platelet Count 231 # Mean Platelet Volume 11.5 H Neutrophils % 62.1 Lymphocytes % 20.5 Monocytes % 7.9 Eosinophils % 8.4 H Basophils % 0.7 Nucleated Red Blood Cells % 0.0 Neutrophils # 7.5 Lymphocytes # 2.5 Monocytes # 1.0 H Eosinophils # 1.0 H Basophils # 0.1 Nucleated Red Blood Cells # 0.0 Sodium Level 132 L Potassium Level 3.9 Chloride Level 91 L Carbon Dioxide Level 27 Anion Gap 18 H Blood Urea Nitrogen 74 H Creatinine 4.52 H Glucose Level 104 # Calcium Level 8.2 L Test 07/16/17 11:31 07/16/17 18:18 Bedside Glucose 165 157 Medications Medications Current Medications Miscellaneous Information [facility] TO DOSE ONCE XX ; Start 06/30/17 at 22: 00 Acetaminophen (Ofirmev 1000mg/ 100ml Iv) 100 ml @ 400 mls/hr Q6H PRN IVPB PAIN /FEVER Last administered on 06/30/17t 23:53; Admin Dose 400 MLS/HR; Start at 22:00 Morphine Sulfate (morphine) 2 mg Q4H PRN IV PAIN; Start 06/30/17 at 22:00 Ondansetron HCl (Zofran Inj) 4 mg Q6H PRN IV NAUSEA AND/OR VOMITING Last administered on 07/05/17 09:31; Admin Dose 4 MG; Start 06/30/17 at 22:00 Hydralazine HCl (Apresoline) 10 mg Q6 PRN IV ELEVATED SYSTOLIC BP Last administered on 07/15/17 01:55; Admin Dose 10 MG; Start 06/30/17 at 22:00 Insulin Aspart (Novolog Insulin Pen) (Adult SC Insulin - Mild Algorithm)... Q6 SC Last administered on 07/16/17 18:21; Admin Dose 1 UNIT; Start 07/01/17 at 00:00 Cyclobenzaprine HCl (Flexeril) 10 mg BID PRN GTB Hiccups Last administered on 07/03/17 08:40; Admin Dose 10 MG; Start 07/01/17 at 22:00 Acetaminophen (Tylenol Liquid) 650 mg DAILY PRN GTB PAIN AND OR ELEVATED TEMP Last administered on 07/16/17 16:13; Admin Dose 650 MG; Start 07/04/17 at 10: 30 Amlodipine Besylate (Norvasc) 5 mg BID GTB Last administered on 07/15/17 20: 36; Admin Dose 5 MG; Start 07/04/17 at 21:00 Ascorbic Acid (Vitamin C) 500 mg DAILY GTB Last administered on 07/16/17 08: 53; Admin Dose 500 MG; Start 07/05/17 at 09:00 Bisacodyl (Dulcolax Supp) 10 mg Q24H [place] Last administered on 07/16/17 15:17; Admin Dose 10 MG; Start 07/04/17 at 10:30 Clonidine (Catapres) 0.2 mg DAILY GTB Last administered on 07/15/17 09:31; Admin Dose 0.2 MG; Start 07/05/17 at 09:00 Diphenhydramine HCl (Benadryl) 25 mg Q6H PRN GTB ITCHING Last administered on 07/16/17 06:21; Admin Dose 25 MG; Start 07/04/17 at 10:30 Hydralazine HCl (Apresoline) 50 mg Q6H PRN PO ELEVATED BLOOD PRESSURE; Start 07/04/17 at 10:30 Insulin Glargine (Lantus) 18 unit QHS SC Last administered on 07/15/17 20:35 ; Admin Dose 18 UNIT; Start 07/04/17 at 21:00 Lansoprazole (Prevacid) 30 mg BID GTB Last administered on 07/16/17 08:53; Admin Dose 30 MG; Start 07/04/17 at 21:00 Nitroglycerin (Nitroglycerin (Sl Tab) 0.4 Mg) 0.4 tab [id number] PRN SL CHEST PAIN; Start 07/04/17 at 10:30 Tamsulosin HCl (Flomax) 0.4 mg DAILY PO ; Start 07/05/17 at 09:00 Zinc Sulfate (Zinc Sulfate) 220 mg DAILY GTB Last administered on 07/16/17 08 :53; Admin Dose 220 MG; Start 07/05/17 at 09:00 Docusate Sodium (Colace Liquid Cup) 200 mg QHS PRN GTB CONSTIPATION Last administered on 07/13/17 05:07; Admin Dose 200 MG; Start 07/04/17 at 10:37 Miscellaneous Information 1 ea NOTE XX ; Start 07/04/17 at 11:00 Glucose (Glutose) 15 gm Q15M PRN PO DECREASED GLUCOSE; Start 07/04/17 at 11:00 Glucose (Glutose) 22.5 gm Q15M PRN PO DECREASED GLUCOSE; Start 07/04/17 at 11: 00 Dextrose (D50w Syringe) 25 ml Q15M PRN IV DECREASED GLUCOSE; Start 07/04/17 at 11:00 Dextrose (D50w Syringe) 50 ml Q15M PRN IV DECREASED GLUCOSE; Start 07/04/17 at 11:00 Glucagon (Glucagen) 1 mg Q15M PRN IM DECREASED GLUCOSE; Start 07/04/17 at 11: 00 Glucose (Glutose) 15 gm Q15M PRN BUCCAL DECREASED GLUCOSE; Start 07/04/17 at 11:00 Famotidine (Pepcid) 10 mg DAILY GTB Last administered on 07/16/17 08:53; Admin Dose 10 MG; Start 07/08/17 at 09:00 ANNE-MARIE PRAKASH NP Jul 16, 2017 19:18
[2017-07-16] MEDS: INSULIN GLARGINE [LANtus] 3 ML PEN SC SCH (22:01)
[2017-07-17] VITALS (15 sets, daily range): BP systolic 125–156; BP diastolic 61–73; PULSE 68–84; RESP 16–19
[2017-07-17 05:40] LABS: BASOPHIL # 0.1 10^3/ul (0.0-0.1); BASOPHILS % 0.9 % (0.0-2.0); EOSINOPHILS # 1.3 10^3/ul (0.0-0.5); EOSINOPHILS % 9.8 % (0.0-7.0); HEMATOCRIT 33.7 % (42.0-52.0); LYMPHOCYTES # 2.4 10^3/ul (0.8-2.9); LYMPHOCYTES % 18.7 % (15.0-51.0); MEAN CORPUSCULAR HEMOGLOBIN 29.5 pg (29.0-33.0); MEAN CORPUSCULAR HGB CONC 32.6 g/dl (32.0-37.0); MEAN CORPUSCULAR VOLUME 90.3 fl (82.0-101.0); MEAN PLATELET VOLUME 12.5 fl (7.4-10.4); MONOCYTE # 1.1 10^3/ul (0.3-0.9); MONOCYTES % 8.2 % (0.0-11.0); NEUTROPHIL # 7.9 10^3/ul (1.6-7.5); NEUTROPHILS % 61.6 % (39.0-77.0); PLATELET COUNT 218 10^3/UL (140-415); RED BLOOD COUNT 3.73 10^6/ul (4.70-6.10); RED CELL DISTRIBUTION WIDTH 13.9 % (11.5-14.5); WHITE BLOOD COUNT 12.8 10^3/ul (4.8-10.8)
[2017-07-17] MEDS: Insulin NOVOLOG SS MILD Algorithm (NPO/TPN/ENTERAL FEEDS) SC SCH ×3 (06:00→17:51)
[2017-07-17 06:11] LABS: CALCIUM 8.5 mg/dl (8.4-10.2); CREATININE 3.58 mg/dl (0.61-1.24); POTASSIUM 3.8 mmol/L (3.5-5.1)
[2017-07-17] MEDS: FAMOTIDINE 20 MG TAB GTB SCH (08:28)
[2017-07-17] MEDS: DIPHENHYDRAMINE 25 MG CAP GTB PRN ×2 (08:28→22:27)
[2017-07-17] MEDS: ZINC SULFATE 220 MG CAP GTB SCH (08:28)
[2017-07-17] MEDS: ASCORBIC ACID 500 MG TAB GTB SCH (08:28)
[2017-07-17] MEDS: AMLODIPINE 5 MG TAB GTB SCH ×2 (08:28→22:07)
[2017-07-17] MEDS: LANSOPRAZOLE 30 MG CAP GTB SCH ×2 (08:29→22:06)
[2017-07-17] MEDS: BALSAM PERU/CASTOR OIL 60 GM TUBE TOP SCH ×4 (10:06→22:07)
--- NOTE | 2017-07-17 10:34 | CONS ---
Date/Time of Note Date/Time of Note DATE: 07/17/17 TIME: 10:33 Assessment/Plan Assessment/Plan Chief Complaint/Hosp Course 1. ESRD, on HD 2. Pneumonia. 3. The patient has cholecystitis. 4. G tube status 5. Anemia. 6. Chronic kidney disease 5. 7. Sepsis better Problems: Additional Assessment/Plan 1. continue HD 2. Optimization of kidney function Consultation Date/Type/Reason Admit Date/Time Jun 30, 2017 at 19:01 Initial Consult Date 07/01/17 Type of Consultation: nephrology Reason for Consultation Dr Cheema Referring Provider: KE JAVED MD Exam/Review of Systems Vital Signs Vitals Vital Signs Date Time Temp Pulse Resp B/P Pulse Ox O2 Delivery O2 Flow Rate FiO2 07/17/17 08:05 97.8 68 16 131/65 99 07/17/17 06:00 Room Air Intake and Output 07/16/17 07/16/17 07/17/17 15:00 23:00 07:00 Intake Total 600 ml 640 ml 720 ml Output Total 1800 ml 250 ml Balance -1200 ml 640 ml 470 ml Exam Constitutional: frail Psych: confusion Respiratory: clear to auscultation Cardiovascular: regular rate and rhythm Results Result Diagram: 07/17/17 0441 07/17/17 0441 Results 24 hrs Laboratory Tests Test 07/16/17 11:31 07/16/17 18:18 07/16/17 21:59 07/16/17 23:55 Bedside Glucose 165 157 131 124 Test 07/17/17 04:41 07/17/17 06:10 White Blood Count 12.8 H Red Blood Count 3.73 L Hemoglobin 11.0 L Hematocrit 33.7 L Mean Corpuscular Volume 90.3 Mean Corpuscular Hemoglobin 29.5 Mean Corpuscular Hemoglobin Concent 32.6 Red Cell Distribution Width 13.9 Platelet Count 218 Mean Platelet Volume 12.5 H Neutrophils % 61.6 Lymphocytes % 18.7 Monocytes % 8.2 Eosinophils % 9.8 H Basophils % 0.9 Nucleated Red Blood Cells % 0.0 Neutrophils # 7.9 H Lymphocytes # 2.4 Monocytes # 1.1 H Eosinophils # 1.3 H Basophils # 0.1 Nucleated Red Blood Cells # 0.0 Sodium Level 136 Potassium Level 3.8 Chloride Level 96 L Carbon Dioxide Level 26 Anion Gap 18 H Blood Urea Nitrogen 54 H Creatinine 3.58 H Glucose Level 138 Calcium Level 8.5 Bedside Glucose 123 Medications Medications Current Medications Miscellaneous Information [facility] TO DOSE ONCE XX ; Start 06/30/17 at 22: 00 Acetaminophen (Ofirmev 1000mg/ 100ml Iv) 100 ml @ 400 mls/hr Q6H PRN IVPB PAIN /FEVER Last administered on 06/30/17 23:53; Admin Dose 400 MLS/HR; Start at 22:00 Morphine Sulfate (morphine) 2 mg Q4H PRN IV PAIN; Start 06/30/17 at 22:00 Ondansetron HCl (Zofran Inj) 4 mg Q6H PRN IV NAUSEA AND/OR VOMITING Last administered on 07/05/17 09:31; Admin Dose 4 MG; Start 06/30/17 at 22:00 Hydralazine HCl (Apresoline) 10 mg Q6 PRN IV ELEVATED SYSTOLIC BP Last administered on 07/15/17 01:55; Admin Dose 10 MG; Start 06/30/17 at 22:00 Insulin Aspart (Novolog Insulin Pen) (Adult SC Insulin - Mild Algorithm)... Q6 [place] Last administered on 07/16/17 18:21; Admin Dose 1 UNIT; Start 07/01/17 at 00:00 Cyclobenzaprine HCl (Flexeril) 10 mg BID PRN GTB Hiccups Last administered on 07/03/17 08:40; Admin Dose 10 MG; Start 07/01/17 at 22:00 Acetaminophen (Tylenol Liquid) 650 mg DAILY PRN GTB PAIN AND OR ELEVATED TEMP Last administered on 07/16/17 16:13; Admin Dose 650 MG; Start 07/04/17 at 10: 30 Amlodipine Besylate (Norvasc) 5 mg BID GTB Last administered on 07/17/17 08: 28; Admin Dose 5 MG; Start 07/04/17 at 21:00 Ascorbic Acid (Vitamin C) 500 mg DAILY GTB Last administered on 07/17/17 08: 28; Admin Dose 500 MG; Start 07/05/17 at 09:00 Bisacodyl (Dulcolax Supp) 10 mg Q24H [place] Last administered on 07/16/17 15:17; Admin Dose 10 MG; Start 07/04/17 at 10:30 Clonidine (Catapres) 0.2 mg DAILY GTB Last administered on 07/17/17 08:29; Admin Dose 0.2 MG; Start 07/05/17 at 09:00 Diphenhydramine HCl (Benadryl) 25 mg Q6H PRN GTB ITCHING Last administered on 07/17/17 08:28; Admin Dose 25 MG; Start 07/04/17 at 10:30 Hydralazine HCl (Apresoline) 50 mg Q6H PRN PO ELEVATED BLOOD PRESSURE; Start 07/04/17 at 10:30 Insulin Glargine (Lantus) 18 unit QHS SC Last administered on 07/16/17 22:01 ; Admin Dose 18 UNIT; Start 07/04/17 at 21:00 Lansoprazole (Prevacid) 30 mg BID GTB Last administered on 07/17/17 08:29; Admin Dose 30 MG; Start 07/04/17 at 21:00 Nitroglycerin (Nitroglycerin (Sl Tab) 0.4 Mg) 0.4 tab [id number] PRN SL CHEST PAIN; Start 07/04/17 at 10:30 Tamsulosin HCl (Flomax) 0.4 mg DAILY PO ; Start 07/05/17 at 09:00 Zinc Sulfate (Zinc Sulfate) 220 mg DAILY GTB Last administered on 07/17/17 08 :28; Admin Dose 220 MG; Start 07/05/17 at 09:00 Docusate Sodium (Colace Liquid Cup) 200 mg QHS PRN GTB CONSTIPATION Last administered on 07/13/17 05:07; Admin Dose 200 MG; Start 07/04/17 at 10:37 Miscellaneous Information 1 ea NOTE XX ; Start 07/04/17 at 11:00 Glucose (Glutose) 15 gm Q15M PRN PO DECREASED GLUCOSE; Start 07/04/17 at 11:00 Glucose (Glutose) 22.5 gm Q15M PRN PO DECREASED GLUCOSE; Start 07/04/17 at 11: 00 Dextrose (D50w Syringe) 25 ml Q15M PRN IV DECREASED GLUCOSE; Start 07/04/17 at 11:00 Dextrose (D50w Syringe) 50 ml Q15M PRN IV DECREASED GLUCOSE; Start 07/04/17 at 11:00 Glucagon (Glucagen) 1 mg Q15M PRN IM DECREASED GLUCOSE; Start 07/04/17 at 11: 00 Glucose (Glutose) 15 gm Q15M PRN BUCCAL DECREASED GLUCOSE; Start 07/04/17 at 11:00 Famotidine (Pepcid) 10 mg DAILY GTB Last administered on 07/17/17 08:28; Admin Dose 10 MG; Start 07/08/17 at 09:00 CHELSIE HERNÁNDEZ Jul 17, 2017 10:34
[2017-07-17] MEDS: BISACODYL 10 MG SUPP PR SCH (11:03)
--- NOTE | 2017-07-17 12:52 | PN ---
Date/Time of Note Date/Time of Note DATE: 07/17/17 TIME: 12:51 Assessment/Plan VTE Prophylaxis VTE Prophylaxis Intervention: other Lines/Catheters IV C[facility]ter Type (from [facility]): Saline Lock Urinary Cath still in place: Yes Reason Cath still needed: skin wounds contaminated by urine Assessment/Plan Chief Complaint/Hosp Course - Possible acute cholecystitis, continue abx. Dr. Bojorquez is following in general surgery consultation. Family prefer to manage conservatively versus surgery. - E. coli UTI, s/p meropenem. - Acute kidney injury on chronic kidney disease. Continue hemodialysis per renal. Dr. Cheema is following in nephrology consultation. - History of cerebrovascular accident - Diabetes mellitus. Continue Lantus and NovoLog. - Diastolic congestive heart failure. Continue to monitor intake and output. - Paroxysmal atrial fibrillation, currently in sinus rhythm. - Hypertension. - Hyperlipidemia. - Dysphagia with G-tube. Problems: Subjective 24 Hr Interval Summary Free Text/Dictation Patient has no complaints Exam/Review of Systems Vital Signs Vitals Vital Signs Date Time Temp Pulse Resp B/P Pulse Ox O2 Delivery O2 Flow Rate FiO2 07/17/17 10:00 97.9 79 18 129/69 97 Room Air Intake and Output 07/16/17 07/16/17 07/17/17 15:00 23:00 07:00 Intake Total 600 ml 640 ml 720 ml Output Total 1800 ml 250 ml Balance -1200 ml 640 ml 470 ml Exam Constitutional: well developed Head: atraumatic, normocephalic Neck: supple Respiratory: clear to auscultation Cardiovascular: regular rate and rhythm Gastrointestinal: non-tender, soft Extremities: normal pulses Results Result Diagram: 07/17/1744007/17/17 0441 Results 24 hrs Laboratory Tests Test 07/16/17 18:18 07/16/17 21:59 07/16/17 23:55 07/17/17 04:41 Bedside Glucose 157 131 124 White Blood Count 12.8 H Red Blood Count 3.73 L Hemoglobin 11.0 L Hematocrit 33.7 L Mean Corpuscular Volume 90.3 Mean Corpuscular Hemoglobin 29.5 Mean Corpuscular Hemoglobin Concent 32.6 Red Cell Distribution Width 13.9 Platelet Count 218 Mean Platelet Volume 12.5 H Neutrophils % 61.6 Lymphocytes % 18.7 Monocytes % 8.2 Eosinophils % 9.8 H Basophils % 0.9 Nucleated Red Blood Cells % 0.0 Neutrophils # 7.9 H Lymphocytes # 2.4 Monocytes # 1.1 H Eosinophils # 1.3 H Basophils # 0.1 Nucleated Red Blood Cells # 0.0 Sodium Level 136 Potassium Level 3.8 Chloride Level 96 L Carbon Dioxide Level 26 Anion Gap 18 H Blood Urea Nitrogen 54 H Creatinine 3.58 H Glucose Level 138 Calcium Level 8.5 Test 07/17/17 06:10 07/17/17 11:05 Bedside Glucose 123 109 Medications Medications Current Medications Miscellaneous Information [facility] TO DOSE ONCE XX ; Start 06/30/17 at 22: 00 Acetaminophen (Ofirmev 1000mg/ 100ml Iv) 100 ml @ 400 mls/hr Q6H PRN IVPB PAIN /FEVER Last administered on 06/30/17 23:53; Admin Dose 400 MLS/HR; Start at 22:00 Morphine Sulfate (morphine) 2 mg Q4H PRN IV PAIN; Start 06/30/17 at 22:00 Ondansetron HCl (Zofran Inj) 4 mg Q6H PRN IV NAUSEA AND/OR VOMITING Last administered on 07/05/17 09:31; Admin Dose 4 MG; Start 06/30/17 at 22:00 Hydralazine HCl (Apresoline) 10 mg Q6 PRN IV ELEVATED SYSTOLIC BP Last administered on 07/15/17 01:55; Admin Dose 10 MG; Start 06/30/17 at 22:00 Insulin Aspart (Novolog Insulin Pen) (Adult SC Insulin - Mild Algorithm)... Q6 [place] Last administered on 07/16/17 18:21; Admin Dose 1 UNIT; Start 07/01/17 at 00:00 Cyclobenzaprine HCl (Flexeril) 10 mg BID PRN GTB Hiccups Last administered on 07/03/17 08:40; Admin Dose 10 MG; Start 07/01/17 at 22:00 Acetaminophen (Tylenol Liquid) 650 mg DAILY PRN GTB PAIN AND OR ELEVATED TEMP Last administered on 07/16/17 16:13; Admin Dose 650 MG; Start 07/04/17 at 10: 30 Amlodipine Besylate (Norvasc) 5 mg BID GTB Last administered on 07/17/17 08: 28; Admin Dose 5 MG; Start 07/04/17 at 21:00 Ascorbic Acid (Vitamin C) 500 mg DAILY GTB Last administered on 07/17/17 08: 28; Admin Dose 500 MG; Start 07/05/17 at 09:00 Bisacodyl (Dulcolax Supp) 10 mg Q24H [place] Last administered on 07/17/17 11:03; Admin Dose 10 MG; Start 07/04/17 at 10:30 Clonidine (Catapres) 0.2 mg DAILY GTB Last administered on 07/17/17 08:29; Admin Dose 0.2 MG; Start 07/05/17 at 09:00 Diphenhydramine HCl (Benadryl) 25 mg Q6H PRN GTB ITCHING Last administered on 07/17/17 08:28; Admin Dose 25 MG; Start 07/04/17 at 10:30 Hydralazine HCl (Apresoline) 50 mg Q6H PRN PO ELEVATED BLOOD PRESSURE; Start 07/04/17 at 10:30 Insulin Glargine (Lantus) 18 unit QHS SC Last administered on 07/16/17 22:01 ; Admin Dose 18 UNIT; Start 07/04/17 at 21:00 Lansoprazole (Prevacid) 30 mg BID GTB Last administered on 07/17/17 08:29; Admin Dose 30 MG; Start 07/04/17 at 21:00 Nitroglycerin (Nitroglycerin (Sl Tab) 0.4 Mg) 0.4 tab [id number] PRN SL CHEST PAIN; Start 07/04/17 at 10:30 Tamsulosin HCl (Flomax) 0.4 mg DAILY PO ; Start 07/05/17 at 09:00 Zinc Sulfate (Zinc Sulfate) 220 mg DAILY GTB Last administered on 07/17/17 08 :28; Admin Dose 220 MG; Start 07/05/17 at 09:00 Docusate Sodium (Colace Liquid Cup) 200 mg QHS PRN GTB CONSTIPATION Last administered on 07/13/17 05:07; Admin Dose 200 MG; Start 07/04/17 at 10:37 Miscellaneous Information 1 ea NOTE XX ; Start 07/04/17 at 11:00 Glucose (Glutose) 15 gm Q15M PRN PO DECREASED GLUCOSE; Start 07/04/17 at 11:00 Glucose (Glutose) 22.5 gm Q15M PRN PO DECREASED GLUCOSE; Start 07/04/17 at 11: 00 Dextrose (D50w Syringe) 25 ml Q15M PRN IV DECREASED GLUCOSE; Start 07/04/17 at 11:00 Dextrose (D50w Syringe) 50 ml Q15M PRN IV DECREASED GLUCOSE; Start 07/04/17 at 11:00 Glucagon (Glucagen) 1 mg Q15M PRN IM DECREASED GLUCOSE; Start 07/04/17 at 11: 00 Glucose (Glutose) 15 gm Q15M PRN BUCCAL DECREASED GLUCOSE; Start 07/04/17 at 11:00 Famotidine (Pepcid) 10 mg DAILY GTB Last administered on 07/17/17 08:28; Admin Dose 10 MG; Start 07/08/17 at 09:00 AURA CALL Jul 17, 2017 12:52
[2017-07-17] MEDS ORDERED: VITAMIN A & D 5 GM OINT PACKET TOP ONE (14:11)
--- NOTE | 2017-07-17 17:56 | PN ---
Date/Time of Note Date/Time of Note DATE: 07/16/17 TIME: 17:55 Assessment/Plan Lines/Catheters IV Catheter Type (from [facility]): Saline Lock Flores in Place (from [facility]): Yes Assessment/Plan Chief Complaint/Hosp Course 1. Cholelithiasis with Negative HIDA (no acute cholecystitis); no abdominal pain /tenderness -no lap avery per family and patient-wanting to manage conservatively at this point 2. UTI: -abx per sensitivity -frequent bladder emptying/cath care 3. Leukocytosis: likely 2/ #2, ? 1, ? other -as above -monitor -? kelly cx 4. Anemia: no acute bleed noted -monitor -transfuse as needed 5. ESRD on HD -HD per renal -avoid/limit nephrotoxic meds -judicious fluids -renally dose meds 6. Electrolyte imbalance: -optimize lytes 7. Elevated LFT: -as above 8. Hypoalbuminemia: multifactorial -optimize nutrition as able -management of infection/inflammation 9. Dysphagia with feeding tube: on tube feeds -continue tf with aspiration precautions Thank you Late entry 07/16 Problems: Subjective 24 Hr Interval Summary Leukocytosis. Tolerating feeding. No fevers, chills, sob, congested cough, cp, palpitations, hernandez, dizziness, n/v/d/dysuria. Exam/Review of Systems Vital Signs Vitals Vital Signs Date Time Temp Pulse Resp B/P Pulse Ox O2 Delivery O2 Flow Rate FiO2 07/17/17 16:00 98.0 16 140/68 97 Room Air 07/17/17 12:00 70 Intake and Output 07/16/17 07/16/17 07/17/17 15:00 23:00 07:00 Intake Total 600 ml 640 ml 720 ml Output Total 1800 ml 100 ml 250 ml Balance -1200 ml 540 ml 470 ml Exam Free Text/Dictation Constitutional: alert, oriented, responsive, somnolent Head: atraumatic, normocephalic Eyes: nl lids, nl sclera ENMT: mucosa pink and moist, nl nasal mucosa & septum Neck: non-tender, supple Respiratory: normal air movement, No labored breathing Cardiovascular: regular rate and rhythm Gastrointestinal: non-tender, other (peg), soft Genitourinary - Male: nl penis, nl scrotum Musculoskeletal: nl extremities to inspection Extremities: normal pulses Neurological: No nl mental status, No nl speech (delayed) Skin: nl turgor Results Result Diagram: 07/17/17 0441 07/17/17 0441 LIZ PARKER MD Jul 17, 2017 17:56
--- NOTE | 2017-07-17 17:57 | PN ---
Date/Time of Note Date/Time of Note DATE: 07/17/17 TIME: 17:56 Assessment/Plan Lines/Catheters IV Catheter Type (from [facility]): Saline Lock [facility] in Place (from [facility]): Yes Assessment/Plan Chief Complaint/Hosp Course 1. Cholelithiasis with Negative HIDA (no acute cholecystitis); no abdominal pain /tenderness -no lap avery per family and patient-wanting to manage conservatively at this point 2. UTI: -abx per sensitivity -frequent bladder emptying/cath care 3. Leukocytosis: likely 2/2 #2, ? 1, ? other -as above -monitor -? kelly cx 4. Anemia: no acute bleed noted -monitor -transfuse as needed 5. ESRD on HD -HD per renal -avoid/limit nephrotoxic meds -judicious fluids -renally dose meds 6. Electrolyte imbalance: -optimize lytes 7. Elevated LFT: -as above 8. Hypoalbuminemia: multifactorial -optimize nutrition as able -management of infection/inflammation 9. Dysphagia with feeding tube: on tube feeds -continue tf with aspiration precautions Thank you Problems: Subjective 24 Hr Interval Summary Leukocytosis. Tolerating feeding. No fevers, chills, sob, congested cough, cp, palpitations, hernandez, dizziness, n/v/d/dysuria. Exam/Review of Systems Vital Signs Vitals Vital Signs Date Time Temp Pulse Resp B/P Pulse Ox O2 Delivery O2 Flow Rate FiO2 07/17/17 16:00 98.0 16 140/68 97 Room Air 07/17/17 12:00 70 Intake and Output 07/16/17 07/16/17 07/17/17 15:00 23:00 07:00 Intake Total 600 ml 640 ml 720 ml Output Total 1800 ml 100 ml 250 ml Balance -1200 ml 540 ml 470 ml Exam Free Text/Dictation Constitutional: alert, oriented, responsive, somnolent Head: atraumatic, normocephalic Eyes: nl lids, nl sclera ENMT: mucosa pink and moist, nl nasal mucosa & septum Neck: non-tender, supple Respiratory: normal air movement, No labored breathing Cardiovascular: regular rate and rhythm Gastrointestinal: non-tender, other (peg), soft Genitourinary - Male: nl penis, nl scrotum Musculoskeletal: nl extremities to inspection Extremities: normal pulses Neurological: No nl mental status, No nl speech (delayed) Skin: nl turgor Results Result Diagram: 07/17/17 0441 07/17/17 0441 LIZ PARKER MD Jul 17, 2017 17:57
--- NOTE | 2017-07-17 19:13 | CONS ---
Date/Time of Note Date/Time of Note DATE: 07/17/17 TIME: 19:06 Assessment/Plan Assessment/Plan Chief Complaint/Hosp Course .ID PROGRESS NOTE ABX DAY #=> OFF ABX day #4 s/p Merrem -> DC'd 07/13/17 24H INTERVAL SUMMARY * Awake, confused, pulls at PermCath, cachectic * WBC still elevated, no fevers PHYSICAL EXAMINATION: GENERAL: Thin appearing debilitated M, calm, looks comfortable HEENT: Unremarkable, missing dentition NECK: Trach-> midline, neck supple CHEST: Equal chest rise bilaterally, without dyspnea on observation ABDOMEN: Soft, peg EXTREMITIES: Warm, atrophy & cachexia SKIN: Warm, dry ID ASSESSMENT: 71 yo M w/PMHx CVA w/LE weakness, dementia, dysphagia admitted with: 1. SIRS w/persistent leukocytosis, toxic metabolic encephalopathy * Blood Cx (-) * CT ABD (+) patchy bilateral opacities ?infiltrates * Recurrent UTI or other? 2. Recurrent GNR Urinary tract infection-> 2/2 neurogenic bladder w/retention * 06/29/17 URINE CULTURE Final Organism 1 ESCHERICHIA COLI COLONY COUNT >100,000 CFU/ml 3. Dysphagia, status post PEG. 4. HCAP w/CXR 06/30/17: Patchy bibasilar air space disease which may represent infiltrates. * s/p prior admissions MAR 2017 Aspiration PNA w/residual bronchiolitis recent admission 5. Cholelithiasis with Negative HIDA (no acute cholecystitis); no abdominal pain/tenderness-> plan conservative Tx w/pain management 6. Acute on chronic kidney disease. 7. HTN 8. DMII 9. Afib 10. 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 Hx of hip surgery 13. Sacral decub II, heel decub 14. Hx of C.Diff colitis (-)MRSA Nares INVASIVES: Peg, FC, PIV R-AC ABX ALLERGIES: NKDA CURRENT ABX: ABX DAY # 4 s/p =>Merrem ->DC'd 07/13/17 ID RECOMMENDATIONS: 1. Continue to monitor OFF ABX, has completed full course for concern HCAP, UTI 2. If WBC continues to rise and/or temperatures recorded -> Will repeat blood, urine, CXR tomorrow * Otherwise, if WBC normalized, remains afebrile, anticipate DC home OFF ABX . Problems: Consultation Date/Type/Reason Admit Date/Time Jun 30, 2017 at 19:01 Initial Consult Date 07/01/17 Type of Consultation: ID Referring Provider: KE JAVED MD Exam/Review of Systems Vital Signs Vitals Vital Signs Date Time Temp Pulse Resp B/P Pulse Ox O2 Delivery O2 Flow Rate FiO2 07/17/17 18:00 97.4 17 126/70 97 Room Air 07/17/17 12:00 70 Intake and Output 07/16/17 07/16/17 07/17/17 15:00 23:00 07:00 Intake Total 600 ml 640 ml 720 ml Output Total 1800 ml 100 ml 250 ml Balance -1200 ml 540 ml 470 ml Results Result Diagram: 07/17/17 0441 07/17/17 0441 Results 24 hrs Laboratory Tests Test 07/16/17 21:59 07/16/17 23:55 07/17/17 04:41 07/17/17 06:10 Bedside Glucose 131 124 123 White Blood Count 12.8 H Red Blood Count 3.73 L Hemoglobin 11.0 L Hematocrit 33.7 L Mean Corpuscular Volume 90.3 Mean Corpuscular Hemoglobin 29.5 Mean Corpuscular Hemoglobin Concent 32.6 Red Cell Distribution Width 13.9 Platelet Count 218 Mean Platelet Volume 12.5 H Neutrophils % 61.6 Lymphocytes % 18.7 Monocytes % 8.2 Eosinophils % 9.8 H Basophils % 0.9 Nucleated Red Blood Cells % 0.0 Neutrophils # 7.9 H Lymphocytes # 2.4 Monocytes # 1.1 H Eosinophils # 1.3 H Basophils # 0.1 Nucleated Red Blood Cells # 0.0 Sodium Level 136 Potassium Level 3.8 Chloride Level 96 L Carbon Dioxide Level 26 Anion Gap 18 H Blood Urea Nitrogen 54 H Creatinine 3.58 H Glucose Level 138 Calcium Level 8.5 Test 07/17/17 11:05 07/17/17 17:50 Bedside Glucose 109 109 Medications Medications Current Medications Miscellaneous Information [facility] TO DOSE ONCE XX ; Start 06/30/17 at 22: 00 Acetaminophen (Ofirmev 1000mg/ 100ml Iv) 100 ml @ 400 mls/hr Q6H PRN IVPB PAIN /FEVER Last administered on 06/30/17t 23:53; Admin Dose 400 MLS/HR; Start at 22:00 Morphine Sulfate (morphine) 2 mg Q4H PRN IV PAIN; Start 06/30/17 at 22:00 Ondansetron HCl (Zofran Inj) 4 mg Q6H PRN IV NAUSEA AND/OR VOMITING Last administered on 07/05/17 09:31; Admin Dose 4 MG; Start 06/30/17 at 22:00 Hydralazine HCl (Apresoline) 10 mg Q6 PRN IV ELEVATED SYSTOLIC BP Last administered on 07/15/17 01:55; Admin Dose 10 MG; Start 06/30/17 at 22:00 Insulin Aspart (Novolog Insulin Pen) (Adult SC Insulin - Mild Algorithm)... Q6 SC Last administered on 07/16/17 18:21; Admin Dose 1 UNIT; Start 07/01/17 at 00:00 Cyclobenzaprine HCl (Flexeril) 10 mg BID PRN GTB Hiccups Last administered on 07/03/17 08:40; Admin Dose 10 MG; Start 07/01/17 at 22:00 Acetaminophen (Tylenol Liquid) 650 mg DAILY PRN GTB PAIN AND OR ELEVATED TEMP Last administered on 07/16/17 16:13; Admin Dose 650 MG; Start 07/04/17 at 10: 30 Amlodipine Besylate (Norvasc) 5 mg BID GTB Last administered on 07/17/17 08: 28; Admin Dose 5 MG; Start 07/04/17 at 21:00 Ascorbic Acid (Vitamin C) 500 mg DAILY GTB Last administered on 07/17/17 08: 28; Admin Dose 500 MG; Start 07/05/17 at 09:00 Bisacodyl (Dulcolax Supp) 10 mg Q24H [place] Last administered on 07/17/17 11:03; Admin Dose 10 MG; Start 07/04/17 at 10:30 Clonidine (Catapres) 0.2 mg DAILY GTB Last administered on 07/17/17 08:29; Admin Dose 0.2 MG; Start 07/05/17 at 09:00 Diphenhydramine HCl (Benadryl) 25 mg Q6H PRN GTB ITCHING Last administered on 07/17/17 08:28; Admin Dose 25 MG; Start 07/04/17 at 10:30 Hydralazine HCl (Apresoline) 50 mg Q6H PRN PO ELEVATED BLOOD PRESSURE; Start 07/04/17 at 10:30 Insulin Glargine (Lantus) 18 unit QHS SC Last administered on 07/16/17 22:01 ; Admin Dose 18 UNIT; Start 07/04/17 at 21:00 Lansoprazole (Prevacid) 30 mg BID GTB Last administered on 07/17/17 08:29; Admin Dose 30 MG; Start 07/04/17 at 21:00 Nitroglycerin (Nitroglycerin (Sl Tab) 0.4 Mg) 0.4 tab [id number] PRN SL CHEST PAIN; Start 07/04/17 at 10:30 Tamsulosin HCl (Flomax) 0.4 mg DAILY PO ; Start 07/05/17 at 09:00 Zinc Sulfate (Zinc Sulfate) 220 mg DAILY GTB Last administered on 07/17/17 08 :28; Admin Dose 220 MG; Start 07/05/17 at 09:00 Docusate Sodium (Colace Liquid Cup) 200 mg QHS PRN GTB CONSTIPATION Last administered on 07/13/17 05:07; Admin Dose 200 MG; Start 07/04/17 at 10:37 Miscellaneous Information 1 ea NOTE XX ; Start 07/04/17 at 11:00 Glucose (Glutose) 15 gm Q15M PRN PO DECREASED GLUCOSE; Start 07/04/17 at 11:00 Glucose (Glutose) 22.5 gm Q15M PRN PO DECREASED GLUCOSE; Start 07/04/17 at 11: 00 Dextrose (D50w Syringe) 25 ml Q15M PRN IV DECREASED GLUCOSE; Start 07/04/17 at 11:00 Dextrose (D50w Syringe) 50 ml Q15M PRN IV DECREASED GLUCOSE; Start 07/04/17 at 11:00 Glucagon (Glucagen) 1 mg Q15M PRN IM DECREASED GLUCOSE; Start 07/04/17 at 11: 00 Glucose (Glutose) 15 gm Q15M PRN BUCCAL DECREASED GLUCOSE; Start 07/04/17 at 11:00 Famotidine (Pepcid) 10 mg DAILY GTB Last administered on 07/17/17 08:28; Admin Dose 10 MG; Start 07/08/17 at 09:00 ANNE-MARIE PRAKASH NP Jul 17, 2017 19:12
[2017-07-17] MEDS: INSULIN GLARGINE [LANtus] 3 ML PEN SC SCH (22:09)
[2017-07-18] VITALS (14 sets, daily range): BP systolic 42–149; BP diastolic 61–83; PULSE 75–87; RESP 17–20
[2017-07-18] MEDS: Insulin NOVOLOG SS MILD Algorithm (NPO/TPN/ENTERAL FEEDS) SC SCH ×5 (05:35→23:53)
[2017-07-18 05:39] LABS: BASOPHIL # 0.1 10^3/ul (0.0-0.1); BASOPHILS % 1.1 % (0.0-2.0); EOSINOPHILS # 1.7 10^3/ul (0.0-0.5); EOSINOPHILS % 16.8 % (0.0-7.0); HEMATOCRIT 33.8 % (42.0-52.0); LYMPHOCYTES # 2.2 10^3/ul (0.8-2.9); LYMPHOCYTES % 21.2 % (15.0-51.0); MEAN CORPUSCULAR HEMOGLOBIN 29.3 pg (29.0-33.0); MEAN CORPUSCULAR HGB CONC 32.5 g/dl (32.0-37.0); MEAN CORPUSCULAR VOLUME 90.1 fl (82.0-101.0); MEAN PLATELET VOLUME 12.4 fl (7.4-10.4); MONOCYTE # 0.8 10^3/ul (0.3-0.9); NEUTROPHIL # 5.4 10^3/ul (1.6-7.5); NEUTROPHILS % 52.2 % (39.0-77.0); PLATELET COUNT 238 10^3/UL (140-415); RED BLOOD COUNT 3.75 10^6/ul (4.70-6.10); RED CELL DISTRIBUTION WIDTH 13.6 % (11.5-14.5); WHITE BLOOD COUNT 10.3 10^3/ul (4.8-10.8)
[2017-07-18] MEDS: ASCORBIC ACID 500 MG TAB GTB SCH (08:45)
[2017-07-18] MEDS: ZINC SULFATE 220 MG CAP GTB SCH (08:46)
[2017-07-18] MEDS: FAMOTIDINE 20 MG TAB GTB SCH (08:46)
[2017-07-18] MEDS: LANSOPRAZOLE 30 MG CAP GTB SCH ×2 (08:46→21:41)
[2017-07-18] MEDS: BALSAM PERU/CASTOR OIL 60 GM TUBE TOP SCH ×4 (08:46→21:42)
[2017-07-18] MEDS: AMLODIPINE 5 MG TAB GTB SCH ×3 (08:47→21:42)
[2017-07-18] MEDS: BISACODYL 10 MG SUPP PR SCH (11:00)
--- NOTE | 2017-07-18 11:16 | CONS ---
CHELSIE HERNÁNDEZ 07/18/17 1116: Date/Time of Note Date/Time of Note DATE: 07/18/17 TIME: 11:15 Assessment/Plan Assessment/Plan Chief Complaint/Hosp Course 1. ESRD, on HD 2. Pneumonia. 3. The patient has cholecystitis. 4. G tube status 5. Anemia. 6. Chronic kidney disease 5. 7. Sepsis better Problems: Additional Assessment/Plan 1. continue HD Consultation Date/Type/Reason Admit Date/Time Jun 30, 2017 at 19:01 Initial Consult Date 07/01/17 Type of Consultation: nephrology Reason for Consultation Dr Cheema Referring Provider: KE JAVED MD Exam/Review of Systems Vital Signs Vitals Vital Signs Date Time Temp Pulse Resp B/P Pulse Ox O2 Delivery O2 Flow Rate FiO2 07/18/17 09:55 98.0 80 18 135/71 99 Room Air Intake and Output 07/17/17 07/17/17 07/18/17 14:59 22:59 06:59 Intake Total 580 ml Output Total 75 ml Balance 505 ml Exam Constitutional: frail Psych: confusion Neck: supple Respiratory: diminished breath sounds Cardiovascular: regular rate and rhythm Gastrointestinal: soft, surgical scars Results Result Diagram: 07/18/17 0513 07/17/17 0441 Results 24 hrs Laboratory Tests Test 07/17/17 17:50 07/17/17 22:05 07/18/17 00:46 07/18/17 05:13 Bedside Glucose 109 133 123 White Blood Count 10.3 Red Blood Count 3.75 L Hemoglobin 11.0 L Hematocrit 33.8 L Mean Corpuscular Volume 90.1 Mean Corpuscular Hemoglobin 29.3 Mean Corpuscular Hemoglobin Concent 32.5 Red Cell Distribution Width 13.6 Platelet Count 238 Mean Platelet Volume 12.4 H Neutrophils % 52.2 Lymphocytes % 21.2 Monocytes % 8.0 Eosinophils % 16.8 H Basophils % 1.1 Nucleated Red Blood Cells % 0.0 Neutrophils # 5.4 Lymphocytes # 2.2 Monocytes # 0.8 Eosinophils # 1.7 H Basophils # 0.1 Nucleated Red Blood Cells # 0.0 Test 07/18/17 05:31 Bedside Glucose 147 Medications Medications Current Medications Miscellaneous Information [facility] TO DOSE ONCE XX ; Start 06/30/17 at 22: 00 Acetaminophen (Ofirmev 1000mg/ 100ml Iv) 100 ml @ 400 mls/hr Q6H PRN IVPB PAIN /FEVER Last administered on 06/30/17 23:53; Admin Dose 400 MLS/HR; Start at 22:00 Morphine Sulfate (morphine) 2 mg Q4H PRN IV PAIN; Start 06/30/17 at 22:00 Ondansetron HCl (Zofran Inj) 4 mg Q6H PRN IV NAUSEA AND/OR VOMITING Last administered on 07/05/17 09:31; Admin Dose 4 MG; Start 06/30/17 at 22:00 Hydralazine HCl (Apresoline) 10 mg Q6 PRN IV ELEVATED SYSTOLIC BP Last administered on 07/15/17 01:55; Admin Dose 10 MG; Start 06/30/17 at 22:00 Insulin Aspart (Novolog Insulin Pen) (Adult SC Insulin - Mild Algorithm)... Q6 [place] Last administered on 07/16/17 18:21; Admin Dose 1 UNIT; Start 07/01/17 at 00:00 Cyclobenzaprine HCl (Flexeril) 10 mg BID PRN GTB Hiccups Last administered on 07/03/17 08:40; Admin Dose 10 MG; Start 07/01/17 at 22:00 Acetaminophen (Tylenol Liquid) 650 mg DAILY PRN GTB PAIN AND OR ELEVATED TEMP Last administered on 07/16/17 16:13; Admin Dose 650 MG; Start 07/04/17 at 10: 30 Amlodipine Besylate (Norvasc) 5 mg BID GTB Last administered on 07/17/17 22: 07; Admin Dose 5 MG; Start 07/04/17 at 21:00 Ascorbic Acid (Vitamin C) 500 mg DAILY GTB Last administered on 07/18/17 08: 45; Admin Dose 500 MG; Start 07/05/17 at 09:00 Bisacodyl (Dulcolax Supp) 10 mg Q24H [place] Last administered on 07/17/17 11:03; Admin Dose 10 MG; Start 07/04/17 at 10:30 Clonidine (Catapres) 0.2 mg DAILY GTB Last administered on 07/17/17 08:29; Admin Dose 0.2 MG; Start 07/05/17 at 09:00 Diphenhydramine HCl (Benadryl) 25 mg Q6H PRN GTB ITCHING Last administered on 07/17/17 22:27; Admin Dose 25 MG; Start 07/04/17 at 10:30 Hydralazine HCl (Apresoline) 50 mg Q6H PRN PO ELEVATED BLOOD PRESSURE; Start 07/04/17 at 10:30 Insulin Glargine (Lantus) 18 unit QHS SC Last administered on 07/17/17 22:09 ; Admin Dose 18 UNIT; Start 07/04/17 at 21:00 Lansoprazole (Prevacid) 30 mg BID GTB Last administered on 07/18/17 08:46; Admin Dose 30 MG; Start 07/04/17 at 21:00 Nitroglycerin (Nitroglycerin (Sl Tab) 0.4 Mg) 0.4 tab [id number] PRN SL CHEST PAIN; Start 07/04/17 at 10:30 Tamsulosin HCl (Flomax) 0.4 mg DAILY PO ; Start 07/05/17 at 09:00 Zinc Sulfate (Zinc Sulfate) 220 mg DAILY GTB Last administered on 07/18/17 08 :46; Admin Dose 220 MG; Start 07/05/17 at 09:00 Docusate Sodium (Colace Liquid Cup) 200 mg QHS PRN GTB CONSTIPATION Last administered on 07/13/17 05:07; Admin Dose 200 MG; Start 07/04/17 at 10:37 Miscellaneous Information 1 ea NOTE XX ; Start 07/04/17 at 11:00 Glucose (Glutose) 15 gm Q15M PRN PO DECREASED GLUCOSE; Start 07/04/17 at 11:00 Glucose (Glutose) 22.5 gm Q15M PRN PO DECREASED GLUCOSE; Start 07/04/17 at 11: 00 Dextrose (D50w Syringe) 25 ml Q15M PRN IV DECREASED GLUCOSE; Start 07/04/17 at 11:00 Dextrose (D50w Syringe) 50 ml Q15M PRN IV DECREASED GLUCOSE; Start 07/04/17 at 11:00 Glucagon (Glucagen) 1 mg Q15M PRN IM DECREASED GLUCOSE; Start 07/04/17 at 11: 00 Glucose (Glutose) 15 gm Q15M PRN BUCCAL DECREASED GLUCOSE; Start 07/04/17 at 11:00 Famotidine (Pepcid) 10 mg DAILY GTB Last administered on 07/18/17t 08:46; Admin Dose 10 MG; Start 07/08/17 at 09:00 PORTIA OLIVER MD 07/18/17 1521: Assessment/Plan Assessment/Plan Additional Assessment/Plan hd tmw Exam/Review of Systems Results Result Diagram: 07/18/17 0513 07/17/17 0441 CHELSIE HERNÁNDEZ Jul 18, 2017 11:16 PORTIA OLIVER MD Jul 18, 2017 15:21
[2017-07-18] MEDS: DIPHENHYDRAMINE 25 MG CAP GTB PRN (12:00)
--- NOTE | 2017-07-18 12:12 | PN ---
Date/Time of Note Date/Time of Note DATE: 07/18/17 TIME: 12:12 Assessment/Plan VTE Prophylaxis VTE Prophylaxis Intervention: other Lines/Catheters IV Catheter Type (from [facility]): Saline Lock Urinary Cath still in place: Yes Reason Cath still needed: skin wounds contaminated by urine Assessment/Plan Chief Complaint/Hosp Course - Possible acute cholecystitis, continue abx. Dr. Bojorquez is following in general surgery consultation. Family prefer to manage conservatively versus surgery. - E. coli UTI, s/p meropenem. - Acute kidney injury on chronic kidney disease. Continue hemodialysis per renal. Dr. Cheema is following in nephrology consultation. - History of cerebrovascular accident - Diabetes mellitus. Continue Lantus and NovoLog. - Diastolic congestive heart failure. Continue to monitor intake and output. - Paroxysmal atrial fibrillation, currently in sinus rhythm. - Hypertension. - Hyperlipidemia. - Dysphagia with G-tube. Problems: Subjective 24 Hr Interval Summary Free Text/Dictation Patient has no complaints Exam/Review of Systems Vital Signs Vitals Vital Signs Date Time Temp Pulse Resp B/P Pulse Ox O2 Delivery O2 Flow Rate FiO2 07/18/17 09:55 98.0 80 18 135/71 99 Room Air Intake and Output 07/17/17 07/17/17 07/18/17 15:00 23:00 07:00 Intake Total 580 ml Output Total 75 ml Balance 505 ml Exam Constitutional: well developed Head: atraumatic, normocephalic Neck: supple Respiratory: clear to auscultation Cardiovascular: regular rate and rhythm Gastrointestinal: non-tender, soft Extremities: normal pulses Results Result Diagram: 07/18/17 0513 07/17/17 0441 Results 24 hrs Laboratory Tests Test 07/17/17 17:50 07/17/17 22:05 07/18/17 00:46 07/18/17 05:13 Bedside Glucose 109 133 123 White Blood Count 10.3 Red Blood Count 3.75 L Hemoglobin 11.0 L Hematocrit 33.8 L Mean Corpuscular Volume 90.1 Mean Corpuscular Hemoglobin 29.3 Mean Corpuscular Hemoglobin Concent 32.5 Red Cell Distribution Width 13.6 Platelet Count 238 Mean Platelet Volume 12.4 H Neutrophils % 52.2 Lymphocytes % 21.2 Monocytes % 8.0 Eosinophils % 16.8 H Basophils % 1.1 Nucleated Red Blood Cells % 0.0 Neutrophils # 5.4 Lymphocytes # 2.2 Monocytes # 0.8 Eosinophils # 1.7 H Basophils # 0.1 Nucleated Red Blood Cells # 0.0 Test 07/18/17 05:31 Bedside Glucose 147 Medications Medications Current Medications Miscellaneous Information [facility] TO DOSE ONCE XX ; Start 06/30/17 at 22: 00 Acetaminophen (Ofirmev 1000mg/ 100ml Iv) 100 ml @ 400 mls/hr Q6H PRN IVPB PAIN /FEVER Last administered on 06/30/17 23:53; Admin Dose 400 MLS/HR; Start at 22:00 Morphine Sulfate (morphine) 2 mg Q4H PRN IV PAIN; Start 06/30/17 at 22:00 Ondansetron HCl (Zofran Inj) 4 mg Q6H PRN IV NAUSEA AND/OR VOMITING Last administered on 07/05/17 09:31; Admin Dose 4 MG; Start 06/30/17 at 22:00 Hydralazine HCl (Apresoline) 10 mg Q6 PRN IV ELEVATED SYSTOLIC BP Last administered on 07/15/17 01:55; Admin Dose 10 MG; Start 06/30/17 at 22:00 Insulin Aspart (Novolog Insulin Pen) (Adult SC Insulin - Mild Algorithm)... Q6 SC Last administered on 07/16/17 18:21; Admin Dose 1 UNIT; Start 07/01/17 at 00:00 Cyclobenzaprine HCl (Flexeril) 10 mg BID PRN GTB Hiccups Last administered on 07/03/17 08:40; Admin Dose 10 MG; Start 07/01/17 at 22:00 Acetaminophen (Tylenol Liquid) 650 mg DAILY PRN GTB PAIN AND OR ELEVATED TEMP Last administered on 07/16/17 16:13; Admin Dose 650 MG; Start 07/04/17 at 10: 30 Amlodipine Besylate (Norvasc) 5 mg BID GTB Last administered on 07/17/17 22: 07; Admin Dose 5 MG; Start 07/04/17 at 21:00 Ascorbic Acid (Vitamin C) 500 mg DAILY GTB Last administered on 07/18/17 08: 45; Admin Dose 500 MG; Start 07/05/17 at 09:00 Bisacodyl (Dulcolax Supp) 10 mg Q24H [place] Last administered on 07/17/17 11:03; Admin Dose 10 MG; Start 07/04/17 at 10:30 Clonidine (Catapres) 0.2 mg DAILY GTB Last administered on 07/17/17 08:29; Admin Dose 0.2 MG; Start 07/05/17 at 09:00 Diphenhydramine HCl (Benadryl) 25 mg Q6H PRN GTB ITCHING Last administered on 07/17/17 22:27; Admin Dose 25 MG; Start 07/04/17 at 10:30 Hydralazine HCl (Apresoline) 50 mg Q6H PRN PO ELEVATED BLOOD PRESSURE; Start 07/04/17 at 10:30 Insulin Glargine (Lantus) 18 unit QHS SC Last administered on 07/17/17 22:09 ; Admin Dose 18 UNIT; Start 07/04/17 at 21:00 Lansoprazole (Prevacid) 30 mg BID GTB Last administered on 07/18/17 08:46; Admin Dose 30 MG; Start 07/04/17 at 21:00 Nitroglycerin (Nitroglycerin (Sl Tab) 0.4 Mg) 0.4 tab [id number] PRN SL CHEST PAIN; Start 07/04/17 at 10:30 Tamsulosin HCl (Flomax) 0.4 mg DAILY PO ; Start 07/05/17 at 09:00 Zinc Sulfate (Zinc Sulfate) 220 mg DAILY GTB Last administered on 07/18/17 08 :46; Admin Dose 220 MG; Start 07/05/17 at 09:00 Docusate Sodium (Colace Liquid Cup) 200 mg QHS PRN GTB CONSTIPATION Last administered on 07/13/17 05:07; Admin Dose 200 MG; Start 07/04/17 at 10:37 Miscellaneous Information 1 ea NOTE XX ; Start 07/04/17 at 11:00 Glucose (Glutose) 15 gm Q15M PRN PO DECREASED GLUCOSE; Start 07/04/17 at 11:00 Glucose (Glutose) 22.5 gm Q15M PRN PO DECREASED GLUCOSE; Start 07/04/17 at 11: 00 Dextrose (D50w Syringe) 25 ml Q15M PRN IV DECREASED GLUCOSE; Start 07/04/17 at 11:00 Dextrose (D50w Syringe) 50 ml Q15M PRN IV DECREASED GLUCOSE; Start 07/04/17 at 11:00 Glucagon (Glucagen) 1 mg Q15M PRN IM DECREASED GLUCOSE; Start 07/04/17 at 11: 00 Glucose (Glutose) 15 gm Q15M PRN BUCCAL DECREASED GLUCOSE; Start 07/04/17 at 11:00 Famotidine (Pepcid) 10 mg DAILY GTB Last administered on 07/18/17t 08:46; Admin Dose 10 MG; Start 07/08/17 at 09:00 AURA CALL Jul 18, 2017 12:12
--- NOTE | 2017-07-18 18:02 | CONS ---
Date/Time of Note Date/Time of Note DATE: 07/18/17 TIME: 18:01 Assessment/Plan Assessment/Plan Chief Complaint/Hosp Course .ID PROGRESS NOTE ABX DAY #=> OFF ABX day #5 s/p Merrem -> DC'd 07/13/17 24H INTERVAL SUMMARY * No new issues --- Awake, confused, pulls at PermCath, cachectic * WBC down today, no fevers PHYSICAL EXAMINATION: GENERAL: Thin appearing debilitated M, calm, looks comfortable HEENT: Unremarkable, missing dentition NECK: Trach-> midline, neck supple CHEST: Equal chest rise bilaterally, without dyspnea on observation ABDOMEN: Soft, peg EXTREMITIES: Warm, atrophy & cachexia SKIN: Warm, dry ID ASSESSMENT: 71 yo M w/PMHx CVA w/LE weakness, dementia, dysphagia admitted with: 1. SIRS w/persistent leukocytosis, toxic metabolic encephalopathy * Blood Cx (-) * CT ABD (+) patchy bilateral opacities ?infiltrates * Recurrent UTI or other? 2. Recurrent GNR Urinary tract infection-> 2/2 neurogenic bladder w/retention * 06/29/17 URINE CULTURE Final Organism 1 ESCHERICHIA COLI COLONY COUNT >100,000 CFU/ml 3. Dysphagia, status post PEG. 4. HCAP w/CXR 06/30/17: Patchy bibasilar air space disease which may represent infiltrates. * s/p prior admissions MAR 2017 Aspiration PNA w/residual bronchiolitis recent admission 5. Cholelithiasis with Negative HIDA (no acute cholecystitis); no abdominal pain/tenderness-> plan conservative Tx w/pain management 6. Acute on chronic kidney disease. 7. HTN 8. DMII 9. Afib 10. 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 Hx of hip surgery 13. Sacral decub II, heel decub 14. Hx of C.Diff colitis (-)MRSA Nares INVASIVES: Peg, FC, PIV R-AC ABX ALLERGIES: NKDA CURRENT ABX: ABX DAY # 5 s/p =>Merrem ->DC'd 07/13/17 ID RECOMMENDATIONS: 1. Continue to monitor OFF ABX, has completed full course for concern HCAP, UTI 2. If WBC continues to rise and/or temperatures recorded ->repeat blood & urine cx * Otherwise, if WBC normalized, remains afebrile, anticipate DC home OFF ABX . Problems: Consultation Date/Type/Reason Admit Date/Time Jun 30, 2017 at 19:01 Initial Consult Date 07/01/17 Type of Consultation: id Referring Provider: KE JAVED MD Exam/Review of Systems Vital Signs Vitals Vital Signs Date Time Temp Pulse Resp B/P Pulse Ox O2 Delivery O2 Flow Rate FiO2 07/18/17 16:14 98.3 80 18 135/83 98 Room Air Intake and Output 07/17/17 07/17/17 07/18/17 15:00 23:00 07:00 Intake Total 580 ml Output Total 75 ml Balance 505 ml Results Result Diagram: 07/18/17 0513 07/17/17 0441 Results 24 hrs Laboratory Tests Test 07/17/17 22:05 07/18/17 00:46 07/18/17 05:13 07/18/17 05:31 Bedside Glucose 133 123 147 White Blood Count 10.3 Red Blood Count 3.75 L Hemoglobin 11.0 L Hematocrit 33.8 L Mean Corpuscular Volume 90.1 Mean Corpuscular Hemoglobin 29.3 Mean Corpuscular Hemoglobin Concent 32.5 Red Cell Distribution Width 13.6 Platelet Count 238 Mean Platelet Volume 12.4 H Neutrophils % 52.2 Lymphocytes % 21.2 Monocytes % 8.0 Eosinophils % 16.8 H Basophils % 1.1 Nucleated Red Blood Cells % 0.0 Neutrophils # 5.4 Lymphocytes # 2.2 Monocytes # 0.8 Eosinophils # 1.7 H Basophils # 0.1 Nucleated Red Blood Cells # 0.0 Test 07/18/17 12:18 07/18/17 17:22 Bedside Glucose 95 84 Medications Medications Current Medications Miscellaneous Information [facility] TO DOSE ONCE XX ; Start 06/30/17 at 22: 00 Acetaminophen (Ofirmev 1000mg/ 100ml Iv) 100 ml @ 400 mls/hr Q6H PRN IVPB PAIN /FEVER Last administered on 06/30/17 23:53; Admin Dose 400 MLS/HR; Start at 22:00 Morphine Sulfate (morphine) 2 mg Q4H PRN IV PAIN; Start 06/30/17 at 22:00 Ondansetron HCl (Zofran Inj) 4 mg Q6H PRN IV NAUSEA AND/OR VOMITING Last administered on 07/05/17 09:31; Admin Dose 4 MG; Start 06/30/17 at 22:00 Hydralazine HCl (Apresoline) 10 mg Q6 PRN IV ELEVATED SYSTOLIC BP Last administered on 07/15/17 01:55; Admin Dose 10 MG; Start 06/30/17 at 22:00 Insulin Aspart (Novolog Insulin Pen) (Adult SC Insulin - Mild Algorithm)... Q6 SC Last administered on 07/16/17 18:21; Admin Dose 1 UNIT; Start 07/01/17 at 00:00 Cyclobenzaprine HCl (Flexeril) 10 mg BID PRN GTB Hiccups Last administered on 07/03/17 08:40; Admin Dose 10 MG; Start 07/01/17 at 22:00 Acetaminophen (Tylenol Liquid) 650 mg DAILY PRN GTB PAIN AND OR ELEVATED TEMP Last administered on 07/16/17 16:13; Admin Dose 650 MG; Start 07/04/17 at 10: 30 Amlodipine Besylate (Norvasc) 5 mg BID GTB Last administered on 07/18/17 09: 40; Admin Dose 5 MG; Start 07/04/17 at 21:00 Ascorbic Acid (Vitamin C) 500 mg DAILY GTB Last administered on 07/18/17 08: 45; Admin Dose 500 MG; Start 07/05/17 at 09:00 Bisacodyl (Dulcolax Supp) 10 mg Q24H [place] Last administered on 07/18/17 11:00; Admin Dose 10 MG; Start 07/04/17 at 10:30 Clonidine (Catapres) 0.2 mg DAILY GTB Last administered on 07/18/17 09:40; Admin Dose 0.2 MG; Start 07/05/17 at 09:00 Diphenhydramine HCl (Benadryl) 25 mg Q6H PRN GTB ITCHING Last administered on 07/18/17 12:00; Admin Dose 25 MG; Start 07/04/17 at 10:30 Hydralazine HCl (Apresoline) 50 mg Q6H PRN PO ELEVATED BLOOD PRESSURE; Start 07/04/17 at 10:30 Insulin Glargine (Lantus) 18 unit QHS SC Last administered on 07/17/17 22:09 ; Admin Dose 18 UNIT; Start 11/12/17 at 21:00 Lansoprazole (Prevacid) 30 mg BID GTB Last administered on 07/18/17 08:46; Admin Dose 30 MG; Start 07/04/17 at 21:00 Nitroglycerin (Nitroglycerin (Sl Tab) 0.4 Mg) 0.4 tab [id number] PRN SL CHEST PAIN; Start 07/04/17 at 10:30 Tamsulosin HCl (Flomax) 0.4 mg DAILY PO ; Start 07/05/17 at 09:00 Zinc Sulfate (Zinc Sulfate) 220 mg DAILY GTB Last administered on 07/18/17 08 :46; Admin Dose 220 MG; Start 07/05/17 at 09:00 Docusate Sodium (Colace Liquid Cup) 200 mg QHS PRN GTB CONSTIPATION Last administered on 07/13/17 05:07; Admin Dose 200 MG; Start 07/04/17 at 10:37 Miscellaneous Information 1 ea NOTE XX ; Start 07/04/17 at 11:00 Glucose (Glutose) 15 gm Q15M PRN PO DECREASED GLUCOSE; Start 07/04/17 at 11:00 Glucose (Glutose) 22.5 gm Q15M PRN PO DECREASED GLUCOSE; Start 07/04/17 at 11: 00 Dextrose (D50w Syringe) 25 ml Q15M PRN IV DECREASED GLUCOSE; Start 07/04/17 at 11:00 Dextrose (D50w Syringe) 50 ml Q15M PRN IV DECREASED GLUCOSE; Start 07/04/17 at 11:00 Glucagon (Glucagen) 1 mg Q15M PRN IM DECREASED GLUCOSE; Start 07/04/17 at 11: 00 Glucose (Glutose) 15 gm Q15M PRN BUCCAL DECREASED GLUCOSE; Start 07/04/17 at 11:00 Famotidine (Pepcid) 10 mg DAILY GTB Last administered on 07/18/17 08:46; Admin Dose 10 MG; Start 07/08/17 at 09:00 ANNE-MARIE PRAKASH NP Jul 18, 2017 18:02
[2017-07-18] MEDS: INSULIN GLARGINE [LANtus] 3 ML PEN SC SCH (21:46)
--- NOTE | 2017-07-18 21:51 | PN ---
Date/Time of Note Date/Time of Note DATE: 07/18/17 TIME: 21:47 Assessment/Plan Lines/Catheters IV Catheter Type (from [facility]): Saline Lock Flores in Place (from [facility]): Yes Assessment/Plan Chief Complaint/Hosp Course 1. Cholelithiasis with Negative HIDA (no acute cholecystitis); no abdominal pain /tenderness -no lap avery per family and patient-wanting to manage conservatively at this point 2. UTI: -abx per sensitivity -frequent bladder emptying/cath care 3. Leukocytosis: likely 2/2 #2, ? 1, ? other -as above -monitor -? kelly cx 4. Anemia: no acute bleed noted -monitor -transfuse as needed 5. ESRD on HD -HD per renal -avoid/limit nephrotoxic meds -judicious fluids -renally dose meds 6. Electrolyte imbalance: -optimize lytes 7. Elevated LFT: -as above 8. Hypoalbuminemia: multifactorial -optimize nutrition as able -management of infection/inflammation 9. Dysphagia with feeding tube: on tube feeds -continue tf with aspiration precautions Thank you Problems: Subjective 24 Hr Interval Summary Leukocytosis resolved. Tolerating feeding. No fevers, chills, sob, congested cough, cp, palpitations, hernandez, dizziness, n/v/d/dysuria. Exam/Review of Systems Vital Signs Vitals Vital Signs Date Time Temp Pulse Resp B/P Pulse Ox O2 Delivery O2 Flow Rate FiO2 07/18/17 18:05 98.4 76 20 42/82 99 Room Air Intake and Output 07/17/17 07/17/17 07/18/17 15:00 23:00 07:00 Intake Total 580 ml Output Total 75 ml Balance 505 ml Exam Free Text/Dictation Constitutional: alert, oriented, responsive, somnolent Head: atraumatic, normocephalic Eyes: nl lids, nl sclera ENMT: mucosa pink and moist, nl nasal mucosa & septum Neck: non-tender, supple Respiratory: normal air movement, No labored breathing Cardiovascular: regular rate and rhythm Gastrointestinal: non-tender, other (peg), soft Genitourinary - Male: nl penis, nl scrotum Musculoskeletal: nl extremities to inspection Extremities: normal pulses Neurological: No nl mental status, No nl speech (delayed) Skin: nl turgor Results Result Diagram: 07/18/17 0513 07/17/17 0441 LIZ PARKER MD Jul 18, 2017 21:51
[2017-07-19] VITALS (17 sets, daily range): BP systolic 99–176; BP diastolic 50–82; PULSE 60–93; RESP 16–21
[2017-07-19] MEDS: Insulin NOVOLOG SS MILD Algorithm (NPO/TPN/ENTERAL FEEDS) SC SCH ×3 (05:02→17:35)
[2017-07-19 06:42] LABS: ABNORMAL IP MESSAGE 1; BASOPHIL # 0.1 10^3/ul (0.0-0.1); BASOPHILS % 1.1 % (0.0-2.0); EOSINOPHILS # 2.3 10^3/ul (0.0-0.5); HEMATOCRIT 33.5 % (42.0-52.0); LYMPHOCYTES # 2.2 10^3/ul (0.8-2.9); LYMPHOCYTES % 17.7 % (15.0-51.0); MEAN CORPUSCULAR HEMOGLOBIN 29.6 pg (29.0-33.0); MEAN CORPUSCULAR HGB CONC 32.8 g/dl (32.0-37.0); MEAN CORPUSCULAR VOLUME 90.3 fl (82.0-101.0); MEAN PLATELET VOLUME 12.1 fl (7.4-10.4); MONOCYTE # 0.9 10^3/ul (0.3-0.9); MONOCYTES % 7.1 % (0.0-11.0); NEUTROPHILS % 55.5 % (39.0-77.0); PLATELET COUNT 252 10^3/UL (140-415); POSITIVE DIFF @See below; RED BLOOD COUNT 3.71 10^6/ul (4.70-6.10); RED CELL DISTRIBUTION WIDTH 13.7 % (11.5-14.5); WHITE BLOOD COUNT 12.6 10^3/ul (4.8-10.8)
[2017-07-19] MEDS: LANSOPRAZOLE 30 MG CAP GTB SCH ×2 (09:00→21:24)
[2017-07-19] MEDS: BALSAM PERU/CASTOR OIL 60 GM TUBE TOP SCH ×4 (09:00→21:25)
[2017-07-19] MEDS: ASCORBIC ACID 500 MG TAB GTB SCH (09:00)
[2017-07-19] MEDS: AMLODIPINE 5 MG TAB GTB SCH ×3 (09:00→21:24)
[2017-07-19] MEDS: FAMOTIDINE 20 MG TAB GTB SCH (09:00)
[2017-07-19] MEDS: ZINC SULFATE 220 MG CAP GTB SCH (09:00)
--- NOTE | 2017-07-19 10:47 | PN ---
Date/Time of Note Date/Time of Note DATE: 07/19/17 TIME: 10:33 Assessment/Plan Lines/Catheters IV Catheter Type (from [facility]): Saline Lock Flores in Place (from [facility]): Yes Assessment/Plan Chief Complaint/Hosp Course 1. Cholelithiasis with Negative HIDA (no acute cholecystitis); no abdominal pain /tenderness -no lap avery per family and patient-wanting to manage conservatively at this point 2. UTI: -abx per sensitivity -frequent bladder emptying/cath care 3. Leukocytosis: likely 2/2 #2, ? 1, ? other; labile -as above -monitor -per id 4. Anemia: no acute bleed noted -monitor -transfuse as needed 5. ESRD on HD -HD per renal -avoid/limit nephrotoxic meds -judicious fluids -renally dose meds 6. Electrolyte imbalance: -optimize lytes 7. Elevated LFT: -as above 8. Hypoalbuminemia: multifactorial-improving -optimize nutrition as able -management of infection/inflammation 9. Dysphagia with feeding tube: on tube feeds -continue tf with aspiration precautions Thank you. Patient seen and examined in collaboration with Dr. Abraham Bojorquez. Problems: Subjective 24 Hr Interval Summary HD today. Leukocytosis. Intermittently confused. No fevers, chills, sob, congested cough, cp, palpitations, hernandez, dizziness, n/v/d/dysuria. Exam/Review of Systems Vital Signs Vitals Vital Signs Date Time Temp Pulse Resp B/P Pulse Ox O2 Delivery O2 Flow Rate FiO2 07/19/17 10:05 60 07/19/17 07:35 16 07/19/17 07:19 98.0 172/81 96 07/19/17 06:00 Room Air Intake and Output 07/18/17 07/18/17 07/19/17 14:59 22:59 06:59 Intake Total 780 ml 580 ml Output Total 150 ml 200 ml Balance 630 ml 380 ml Exam Free Text/Dictation Constitutional: alert, oriented, responsive Head: atraumatic, normocephalic Eyes: nl lids, nl sclera ENMT: mucosa pink and moist, nl nasal mucosa & septum Neck: non-tender, supple Respiratory: normal air movement, No labored breathing Cardiovascular: regular rate and rhythm Gastrointestinal: non-tender, other (peg), soft Genitourinary - Male: nl penis, nl scrotum Musculoskeletal: nl extremities to inspection Extremities: normal pulses Neurological: No nl mental status, No nl speech (delayed) Results Result Diagram: 07/19/17 0534 07/17/17 0441 SUSSY PAL NP Jul 19, 2017 10:45
[2017-07-19] MEDS: BISACODYL 10 MG SUPP PR SCH (12:01)
--- NOTE | 2017-07-19 13:24 | CONS ---
Date/Time of Note Date/Time of Note DATE: 07/19/17 TIME: 13:22 Assessment/Plan Assessment/Plan Chief Complaint/Hosp Course SUBJECTIVE: No acute events per report patient looks comfortable, no fevers INDWELLINGS: Right chest PermCath, PEG, Flores. MICROBIOLOGY: Repeat blood and urine cultures negative ANTIMICROBIALS: NONE, status post Merrem PHYSICAL EXAMINATION: GENERAL: This is a chronically ill-appearing, elderly man who is in no distress. HEENT: Head atraumatic, normocephalic. Sclerae anicteric. Buccal mucosa dry. NECK: Supple. CHEST: Rise symmetrical. Breath sounds diminished to bases. HEART: S1, S2. ABDOMEN: Soft, bowel tones present. EXTREMITIES: Without cyanosis. ASSESSMENT: 1. Status post stable sepsis. 2. Status post healthcare-associated pneumonia, possibly aspiration. 3. Status post urinary tract infection. 4. End-stage renal disease. 5. Dysphagia. 6. Encephalopathy. 7. Diabetes. PLAN: The patient remains stable, off antibiotics, repeat cultures negative, continue present care, aspiration precautions Dw staff Problems: Consultation Date/Type/Reason Admit Date/Time Jun 30, 2017 at 19:01 Initial Consult Date 07/01/17 Type of Consultation: id Referring Provider: KE JAVED MD Exam/Review of Systems Vital Signs Vitals Vital Signs Date Time Temp Pulse Resp B/P Pulse Ox O2 Delivery O2 Flow Rate FiO2 07/19/17 12:00 98.0 93 16 176/79 96 Room Air Intake and Output 07/18/17 07/18/17 07/19/17 15:00 23:00 07:00 Intake Total 780 ml 580 ml Output Total 150 ml 200 ml Balance 630 ml 380 ml Results Result Diagram: 07/19/17 0534 07/17/17 0441 Results 24 hrs Laboratory Tests Test 07/18/17 17:22 07/18/17 21:44 07/18/17 23:48 07/19/17 05:01 Bedside Glucose 84 138 97 101 Test 07/19/17 05:34 07/19/17 12:13 White Blood Count 12.6 #H Red Blood Count 3.71 L Hemoglobin 11.0 L Hematocrit 33.5 L Mean Corpuscular Volume 90.3 Mean Corpuscular Hemoglobin 29.6 Mean Corpuscular Hemoglobin Concent 32.8 Red Cell Distribution Width 13.7 Platelet Count 252 Mean Platelet Volume 12.1 H Neutrophils % 55.5 Lymphocytes % 17.7 Monocytes % 7.1 Eosinophils % 18.0 H Basophils % 1.1 Nucleated Red Blood Cells % 0.0 Neutrophils # 7.0 Lymphocytes # 2.2 Monocytes # 0.9 Eosinophils # 2.3 H Basophils # 0.1 Nucleated Red Blood Cells # 0.0 Bedside Glucose 196 Medications Medications Current Medications Miscellaneous Information [facility] TO DOSE ONCE XX ; Start 06/30/17 at 22: 00 Acetaminophen (Ofirmev 1000mg/ 100ml Iv) 100 ml @ 400 mls/hr Q6H PRN IVPB PAIN /FEVER Last administered on 06/30/17 23:53; Admin Dose 400 MLS/HR; Start at 22:00 Morphine Sulfate (morphine) 2 mg Q4H PRN IV PAIN; Start 06/30/17 at 22:00 Ondansetron HCl (Zofran Inj) 4 mg Q6H PRN IV NAUSEA AND/OR VOMITING Last administered on 07/05/17 09:31; Admin Dose 4 MG; Start 06/30/17 at 22:00 Hydralazine HCl (Apresoline) 10 mg Q6 PRN IV ELEVATED SYSTOLIC BP Last administered on 07/15/17 01:55; Admin Dose 10 MG; Start 06/30/17 at 22:00 Insulin Aspart (Novolog Insulin Pen) (Adult SC Insulin - Mild Algorithm)... Q6 SC Last administered on 07/19/17 12:19; Admin Dose 2 UNIT; Start 07/01/17 at 00:00 Cyclobenzaprine HCl (Flexeril) 10 mg BID PRN GTB Hiccups Last administered on 07/03/17 08:40; Admin Dose 10 MG; Start 07/01/17 at 22:00 Acetaminophen (Tylenol Liquid) 650 mg DAILY PRN GTB PAIN AND OR ELEVATED TEMP Last administered on 07/16/17 16:13; Admin Dose 650 MG; Start 07/04/17 at 10: 30 Amlodipine Besylate (Norvasc) 5 mg BID GTB Last administered on 07/19/17 12: 01; Admin Dose 5 MG; Start 07/04/17 at 21:00 Ascorbic Acid (Vitamin C) 500 mg DAILY GTB Last administered on 07/19/17 09: 00; Admin Dose 500 MG; Start 07/05/17 at 09:00 Bisacodyl (Dulcolax Supp) 10 mg Q24H [place] Last administered on 07/19/17 12:01; Admin Dose 10 MG; Start 07/04/17 at 10:30 Clonidine (Catapres) 0.2 mg DAILY GTB Last administered on 07/19/17 12:02; Admin Dose 0.2 MG; Start 07/05/17 at 09:00 Diphenhydramine HCl (Benadryl) 25 mg Q6H PRN GTB ITCHING Last administered on 07/18/17 12:00; Admin Dose 25 MG; Start 07/04/17 at 10:30 Hydralazine HCl (Apresoline) 50 mg Q6H PRN PO ELEVATED BLOOD PRESSURE; Start 07/04/17 at 10:30 Insulin Glargine (Lantus) 18 unit QHS SC Last administered on 07/18/17 21:46 ; Admin Dose 18 UNIT; Start 07/04/17 at 21:00 Lansoprazole (Prevacid) 30 mg BID GTB Last administered on 07/19/17 09:00; Admin Dose 30 MG; Start 07/04/17 at 21:00 Nitroglycerin (Nitroglycerin (Sl Tab) 0.4 Mg) 0.4 tab [id number] PRN SL CHEST PAIN; Start 07/04/17 at 10:30 Tamsulosin HCl (Flomax) 0.4 mg DAILY PO ; Start 07/05/17 at 09:00 Zinc Sulfate (Zinc Sulfate) 220 mg DAILY GTB Last administered on 07/19/17 09 :00; Admin Dose 220 MG; Start 07/05/17 at 09:00 Docusate Sodium (Colace Liquid Cup) 200 mg QHS PRN GTB CONSTIPATION Last administered on 07/13/17 05:07; Admin Dose 200 MG; Start 07/04/17 at 10:37 Miscellaneous Information 1 ea NOTE XX ; Start 07/04/17 at 11:00 Glucose (Glutose) 15 gm Q15M PRN PO DECREASED GLUCOSE; Start 07/04/17 at 11:00 Glucose (Glutose) 22.5 gm Q15M PRN PO DECREASED GLUCOSE; Start 11/12/17 at 11: 00 Dextrose (D50w Syringe) 25 ml Q15M PRN IV DECREASED GLUCOSE; Start 07/04/17 at 11:00 Dextrose (D50w Syringe) 50 ml Q15M PRN IV DECREASED GLUCOSE; Start 07/04/17 at 11:00 Glucagon (Glucagen) 1 mg Q15M PRN IM DECREASED GLUCOSE; Start 07/04/17 at 11: 00 Glucose (Glutose) 15 gm Q15M PRN BUCCAL DECREASED GLUCOSE; Start 07/04/17 at 11:00 Famotidine (Pepcid) 10 mg DAILY GTB Last administered on 07/19/17 09:00; Admin Dose 10 MG; Start 07/08/17 at 09:00 KAYLA CASTREJON NP Jul 19, 2017 13:24
--- NOTE | 2017-07-19 17:20 | PN ---
Date/Time of Note Date/Time of Note DATE: 07/19/17 TIME: 17:20 Assessment/Plan VTE Prophylaxis VTE Prophylaxis Intervention: SCD's Lines/Catheters IV Catheter Type (from [facility]): Saline Lock Urinary Cath still in place: Yes Reason Cath still needed: urinary retention Assessment/Plan Chief Complaint/Hosp Course Patient remains afebrile, d/c planning. Assessment/Plan - Possible acute cholecystitis, continue abx. Dr. Bojorquez is following in general surgery consultation. Family prefer to manage conservatively versus surgery. - E. coli UTI, s/p meropenem. - Acute kidney injury on chronic kidney disease. Continue hemodialysis per renal. Dr. Cheema is following in nephrology consultation. - History of cerebrovascular accident - Diabetes mellitus. Continue Lantus and NovoLog. - Diastolic congestive heart failure. Continue to monitor intake and output. - Paroxysmal atrial fibrillation, currently in sinus rhythm. - Hypertension. - Hyperlipidemia. - Dysphagia with G-tube. Further recommendations based on clinical course. Plan of care discussed with Dr. Patel Problems: Exam/Review of Systems Vital Signs Vitals Vital Signs Date Time Temp Pulse Resp B/P Pulse Ox O2 Delivery O2 Flow Rate FiO2 07/19/17 14:51 97.9 77 16 117/63 98 07/19/17 14:00 Room Air Intake and Output 07/18/17 07/18/17 07/19/17 15:00 23:00 07:00 Intake Total 780 ml 580 ml Output Total 150 ml 200 ml Balance 630 ml 380 ml Exam Constitutional: alert Neck: supple Respiratory: normal air movement Cardiovascular: nl pulses Gastrointestinal: other (G-tube), soft, tender Musculoskeletal: muscle weakness Extremities: normal pulses Results Result Diagram: 07/19/17 0534 07/17/17 0441 Results 24 hrs Laboratory Tests Test 07/18/17 17:22 07/18/17 21:44 07/18/17 23:48 07/19/17 05:01 Bedside Glucose 84 138 97 101 Test 07/19/17 05:34 07/19/17 12:13 White Blood Count 12.6 #H Red Blood Count 3.71 L Hemoglobin 11.0 L Hematocrit 33.5 L Mean Corpuscular Volume 90.3 Mean Corpuscular Hemoglobin 29.6 Mean Corpuscular Hemoglobin Concent 32.8 Red Cell Distribution Width 13.7 Platelet Count 252 Mean Platelet Volume 12.1 H Neutrophils % 55.5 Lymphocytes % 17.7 Monocytes % 7.1 Eosinophils % 18.0 H Basophils % 1.1 Nucleated Red Blood Cells % 0.0 Neutrophils # 7.0 Lymphocytes # 2.2 Monocytes # 0.9 Eosinophils # 2.3 H Basophils # 0.1 Nucleated Red Blood Cells # 0.0 Bedside Glucose 196 Medications Medications Current Medications Miscellaneous Information [facility] TO DOSE ONCE XX ; Start 06/30/17 at 22: 00 Acetaminophen (Ofirmev 1000mg/ 100ml Iv) 100 ml @ 400 mls/hr Q6H PRN IVPB PAIN /FEVER Last administered on 06/30/17 23:53; Admin Dose 400 MLS/HR; Start at 22:00 Morphine Sulfate (morphine) 2 mg Q4H PRN IV PAIN; Start 06/30/17 at 22:00 Ondansetron HCl (Zofran Inj) 4 mg Q6H PRN IV NAUSEA AND/OR VOMITING Last administered on 07/05/17 09:31; Admin Dose 4 MG; Start 06/30/17 at 22:00 Hydralazine HCl (Apresoline) 10 mg Q6 PRN IV ELEVATED SYSTOLIC BP Last administered on 07/15/17 01:55; Admin Dose 10 MG; Start 06/30/17 at 22:00 Insulin Aspart (Novolog Insulin Pen) (Adult SC Insulin - Mild Algorithm)... Q6 SC Last administered on 07/19/17 12:19; Admin Dose 2 UNIT; Start 07/01/17 at 00:00 Cyclobenzaprine HCl (Flexeril) 10 mg BID PRN GTB Hiccups Last administered on 07/03/17 08:40; Admin Dose 10 MG; Start 07/01/17 at 22:00 Acetaminophen (Tylenol Liquid) 650 mg DAILY PRN GTB PAIN AND OR ELEVATED TEMP Last administered on 07/16/17 16:13; Admin Dose 650 MG; Start 07/04/17 at 10: 30 Amlodipine Besylate (Norvasc) 5 mg BID GTB Last administered on 07/19/17 12: 01; Admin Dose 5 MG; Start 07/04/17 at 21:00 Ascorbic Acid (Vitamin C) 500 mg DAILY GTB Last administered on 07/19/17 09: 00; Admin Dose 500 MG; Start 07/05/17 at 09:00 Bisacodyl (Dulcolax Supp) 10 mg Q24H CA Last administered on 07/19/17 12:01; Admin Dose 10 MG; Start 07/04/17 at 10:30 Clonidine (Catapres) 0.2 mg DAILY GTB Last administered on 07/19/17 12:02; Admin Dose 0.2 MG; Start 07/05/17 at 09:00 Diphenhydramine HCl (Benadryl) 25 mg Q6H PRN GTB ITCHING Last administered on 07/18/17 12:00; Admin Dose 25 MG; Start 07/04/17 at 10:30 Hydralazine HCl (Apresoline) 50 mg Q6H PRN PO ELEVATED BLOOD PRESSURE; Start 07/04/17 at 10:30 Insulin Glargine (Lantus) 18 unit QHS SC Last administered on 07/18/17 21:46 ; Admin Dose 18 UNIT; Start 07/04/17 at 21:00 Lansoprazole (Prevacid) 30 mg BID GTB Last administered on 07/19/17 09:00; Admin Dose 30 MG; Start 07/04/17 at 21:00 Nitroglycerin (Nitroglycerin (Sl Tab) 0.4 Mg) 0.4 tab [id number] PRN SL CHEST PAIN; Start 07/04/17 at 10:30 Tamsulosin HCl (Flomax) 0.4 mg DAILY PO ; Start 07/05/17 at 09:00 Zinc Sulfate (Zinc Sulfate) 220 mg DAILY GTB Last administered on 07/19/17 09 :00; Admin Dose 220 MG; Start 07/05/17 at 09:00 Docusate Sodium (Colace Liquid Cup) 200 mg QHS PRN GTB CONSTIPATION Last administered on 07/13/17 05:07; Admin Dose 200 MG; Start 07/04/17 at 10:37 Miscellaneous Information 1 ea NOTE XX ; Start 07/04/17 at 11:00 Glucose (Glutose) 15 gm Q15M PRN PO DECREASED GLUCOSE; Start 07/04/17 at 11:00 Glucose (Glutose) 22.5 gm Q15M PRN PO DECREASED GLUCOSE; Start 07/04/17 at 11: 00 Dextrose (D50w Syringe) 25 ml Q15M PRN IV DECREASED GLUCOSE; Start 07/04/17 at 11:00 Dextrose (D50w Syringe) 50 ml Q15M PRN IV DECREASED GLUCOSE; Start 07/04/17 at 11:00 Glucagon (Glucagen) 1 mg Q15M PRN IM DECREASED GLUCOSE; Start 07/04/17 at 11: 00 Glucose (Glutose) 15 gm Q15M PRN BUCCAL DECREASED GLUCOSE; Start 07/04/17 at 11:00 Famotidine (Pepcid) 10 mg DAILY GTB Last administered on 07/19/17 09:00; Admin Dose 10 MG; Start 07/08/17 at 09:00 GEOVANY IBARRA Jul 19, 2017 17:20
--- NOTE | 2017-07-19 19:58 | CONS ---
Date/Time of Note Date/Time of Note DATE: 07/19/17 TIME: 19:56 Assessment/Plan Assessment/Plan Chief Complaint/Hosp Course ESRD S/P UTI GALLSTONE PEG ANEMIA PLAN HD PER ID AND SURGERY Problems: Consultation Date/Type/Reason Admit Date/Time Jun 30, 2017 at 19:01 Initial Consult Date 07/01/17 Type of Consultation: renal Referring Provider: KE JAVED MD 24 HR Interval Summary Constitutional: improved, no complaints Exam/Review of Systems Vital Signs Vitals Vital Signs Date Time Temp Pulse Resp B/P Pulse Ox O2 Delivery O2 Flow Rate FiO2 07/19/17 14:51 97.9 77 16 117/63 98 07/19/17 14:00 Room Air Intake and Output 07/18/17 07/18/17 07/19/17 15:00 23:00 07:00 Intake Total 780 ml 580 ml Output Total 150 ml 200 ml Balance 630 ml 380 ml Exam Neck: supple Respiratory: clear to auscultation Cardiovascular: regular rate and rhythm Gastrointestinal: bowel sounds (+), soft Extremities: No edema Neurological: other (awake no distress) Results Result Diagram: 07/19/17 0534 07/17/17 0441 Results 24 hrs Laboratory Tests Test 07/18/17 21:44 07/18/17 23:48 07/19/17 05:01 07/19/17 05:34 Bedside Glucose 138 97 101 White Blood Count 12.6 #H Red Blood Count 3.71 L Hemoglobin 11.0 L Hematocrit 33.5 L Mean Corpuscular Volume 90.3 Mean Corpuscular Hemoglobin 29.6 Mean Corpuscular Hemoglobin Concent 32.8 Red Cell Distribution Width 13.7 Platelet Count 252 Mean Platelet Volume 12.1 H Neutrophils % 55.5 Lymphocytes % 17.7 Monocytes % 7.1 Eosinophils % 18.0 H Basophils % 1.1 Nucleated Red Blood Cells % 0.0 Neutrophils # 7.0 Lymphocytes # 2.2 Monocytes # 0.9 Eosinophils # 2.3 H Basophils # 0.1 Nucleated Red Blood Cells # 0.0 Test 07/19/17 12:13 07/19/17 17:33 Bedside Glucose 196 126 Medications Medications Current Medications Miscellaneous Information [facility] TO DOSE ONCE XX ; Start 06/30/17 at 22: 00 Acetaminophen (Ofirmev 1000mg/ 100ml Iv) 100 ml @ 400 mls/hr Q6H PRN IVPB PAIN /FEVER Last administered on 06/30/17 23:53; Admin Dose 400 MLS/HR; Start at 22:00 Morphine Sulfate (morphine) 2 mg Q4H PRN IV PAIN; Start 06/30/17 at 22:00 Ondansetron HCl (Zofran Inj) 4 mg Q6H PRN IV NAUSEA AND/OR VOMITING Last administered on 07/05/17 09:31; Admin Dose 4 MG; Start 06/30/17 at 22:00 Hydralazine HCl (Apresoline) 10 mg Q6 PRN IV ELEVATED SYSTOLIC BP Last administered on 07/15/17 01:55; Admin Dose 10 MG; Start 06/30/17 at 22:00 Insulin Aspart (Novolog Insulin Pen) (Adult SC Insulin - Mild Algorithm)... Q6 SC Last administered on 07/19/17 12:19; Admin Dose 2 UNIT; Start 07/01/17 at 00:00 Cyclobenzaprine HCl (Flexeril) 10 mg BID PRN GTB Hiccups Last administered on 07/03/17 08:40; Admin Dose 10 MG; Start 07/01/17 at 22:00 Acetaminophen (Tylenol Liquid) 650 mg DAILY PRN GTB PAIN AND OR ELEVATED TEMP Last administered on 07/16/17 16:13; Admin Dose 650 MG; Start 07/04/17 at 10: 30 Amlodipine Besylate (Norvasc) 5 mg BID GTB Last administered on 07/19/17 12: 01; Admin Dose 5 MG; Start 07/04/17 at 21:00 Ascorbic Acid (Vitamin C) 500 mg DAILY GTB Last administered on 07/19/17 09: 00; Admin Dose 500 MG; Start 07/05/17 at 09:00 Bisacodyl (Dulcolax Supp) 10 mg Q24H MA Last administered on 07/19/17 12:01; Admin Dose 10 MG; Start 07/04/17 at 10:30 Clonidine (Catapres) 0.2 mg DAILY GTB Last administered on 07/19/17 12:02; Admin Dose 0.2 MG; Start 07/05/17 at 09:00 Diphenhydramine HCl (Benadryl) 25 mg Q6H PRN GTB ITCHING Last administered on 07/18/17 12:00; Admin Dose 25 MG; Start 07/04/17 at 10:30 Hydralazine HCl (Apresoline) 50 mg Q6H PRN PO ELEVATED BLOOD PRESSURE; Start 07/04/17 at 10:30 Insulin Glargine (Lantus) 18 unit QHS SC Last administered on 07/18/17 21:46 ; Admin Dose 18 UNIT; Start 07/04/17 at 21:00 Lansoprazole (Prevacid) 30 mg BID GTB Last administered on 07/19/17 09:00; Admin Dose 30 MG; Start 07/04/17 at 21:00 Nitroglycerin (Nitroglycerin (Sl Tab) 0.4 Mg) 0.4 tab [id number] PRN SL CHEST PAIN; Start 07/04/17 at 10:30 Tamsulosin HCl (Flomax) 0.4 mg DAILY PO ; Start 07/05/17 at 09:00 Zinc Sulfate (Zinc Sulfate) 220 mg DAILY GTB Last administered on 07/19/17 09 :00; Admin Dose 220 MG; Start 07/05/17 at 09:00 Docusate Sodium (Colace Liquid Cup) 200 mg QHS PRN GTB CONSTIPATION Last administered on 07/13/17 05:07; Admin Dose 200 MG; Start 07/04/17 at 10:37 Miscellaneous Information 1 ea NOTE XX ; Start 07/04/17 at 11:00 Glucose (Glutose) 15 gm Q15M PRN PO DECREASED GLUCOSE; Start 07/04/17 at 11:00 Glucose (Glutose) 22.5 gm Q15M PRN PO DECREASED GLUCOSE; Start 07/04/17 at 11: 00 Dextrose (D50w Syringe) 25 ml Q15M PRN IV DECREASED GLUCOSE; Start 07/04/17 at 11:00 Dextrose (D50w Syringe) 50 ml Q15M PRN IV DECREASED GLUCOSE; Start 07/04/17 at 11:00 Glucagon (Glucagen) 1 mg Q15M PRN IM DECREASED GLUCOSE; Start 07/04/17 at 11: 00 Glucose (Glutose) 15 gm Q15M PRN BUCCAL DECREASED GLUCOSE; Start 07/04/17 at 11:00 Famotidine (Pepcid) 10 mg DAILY GTB Last administered on 07/19/17t 09:00; Admin Dose 10 MG; Start 07/08/17 at 09:00 ABBY RAMOS MD Jul 19, 2017 19:58
[2017-07-19] MEDS: INSULIN GLARGINE [LANtus] 3 ML PEN SC SCH (21:25)
[2017-07-20] MEDS: Insulin NOVOLOG SS MILD Algorithm (NPO/TPN/ENTERAL FEEDS) SC SCH ×4 (00:32→19:03)
[2017-07-20 02:40] VITALS: BP 149/74; RESP 18
[2017-07-20] MEDS: DIPHENHYDRAMINE 25 MG CAP GTB PRN (03:22)
--- NOTE | 2017-07-20 08:00 | PN ---
Date/Time of Note Date/Time of Note DATE: 07/20/17 TIME: 07:57 Assessment/Plan Lines/Catheters IV Catheter Type (from [facility]): Saline Lock Flores in Place (from [facility]): Yes Assessment/Plan Chief Complaint/Hosp Course 1. Cholelithiasis with Negative HIDA (no acute cholecystitis); no abdominal pain /tenderness -no lap avery per family and patient-wanting to manage conservatively at this point 2. UTI: -abx per sensitivity -frequent bladder emptying/cath care 3. Leukocytosis: likely 2/2 #2, ? 1, ? other; labile; no fevers; -as above -monitor -per id 4. Anemia: no acute bleed noted -monitor -transfuse as needed 5. ESRD on HD -HD per renal -avoid/limit nephrotoxic meds -judicious fluids -renally dose meds 6. Electrolyte imbalance: -optimize lytes 7. Elevated LFT: -as above 8. Hypoalbuminemia: multifactorial-improving -optimize nutrition as able -management of infection/inflammation 9. Dysphagia with feeding tube: on tube feeds -continue tf with aspiration precautions Thank you. Patient seen and examined in collaboration with Dr. Abraham Bojorquez. Problems: Subjective 24 Hr Interval Summary No acute events. Feels ok. Tolerating tf. +bowel function. No fevers, chills, sob, congested cough, cp, palpitations, hernandez, dizziness, n/v/d/dysuria. Exam/Review of Systems Vital Signs Vitals Vital Signs Date Time Temp Pulse Resp B/P Pulse Ox O2 Delivery O2 Flow Rate FiO2 07/20/17 02:40 98.0 84 18 149/74 100 07/19/17 14:00 Room Air Intake and Output 07/19/17 07/19/17 07/20/17 14:59 22:59 06:59 Intake Total 300 ml 520 ml 780 ml Output Total 1800 ml 250 ml Balance -1500 ml 270 ml 780 ml Exam Free Text/Dictation Constitutional: alert, oriented, responsive Head: atraumatic, normocephalic Eyes: nl lids, nl sclera ENMT: mucosa pink and dry, nl nasal mucosa & septum Neck: non-tender, supple Respiratory: normal air movement, No labored breathing Cardiovascular: regular rate and rhythm Gastrointestinal: non-tender, other (peg), soft Genitourinary - Male: nl penis, nl scrotum Musculoskeletal: nl extremities to inspection Extremities: normal pulses Neurological: No nl mental status, No nl speech (delayed) Results Result Diagram: 07/19/17 0534 07/17/17 0441 SUSSY PAL NP Jul 20, 2017 08:00
[2017-07-20 08:09] VITALS: BP 128/58; RESP 18
[2017-07-20] MEDS ORDERED: FOLIC ACID 1 MG TAB GTB SCH (09:00)
[2017-07-20] MEDS ORDERED: MULTIVIT/CA CARB/B CMPLX/FA TAB PO SCH (09:00)
[2017-07-20] MEDS: ASCORBIC ACID 500 MG TAB GTB SCH (09:38)
[2017-07-20] MEDS: FAMOTIDINE 20 MG TAB GTB SCH (09:38)
[2017-07-20] MEDS: ZINC SULFATE 220 MG CAP GTB SCH (09:38)
[2017-07-20] MEDS: AMLODIPINE 5 MG TAB GTB SCH (09:39)
[2017-07-20] MEDS: LANSOPRAZOLE 30 MG CAP GTB SCH (09:39)
[2017-07-20] MEDS: BISACODYL 10 MG SUPP PR SCH (09:40)
[2017-07-20] MEDS: BALSAM PERU/CASTOR OIL 60 GM TUBE TOP SCH ×2 (09:40→09:41)
[2017-07-20 14:42] VITALS: BP 119/70; RESP 20
--- NOTE | 2017-07-20 15:12 | CONS ---
Date/Time of Note Date/Time of Note DATE: 07/20/17 TIME: 15:12 Assessment/Plan Assessment/Plan Chief Complaint/Hosp Course SUBJECTIVE: No acute events per report patient looks comfortable, no fevers INDWELLINGS: Right chest PermCath, PEG, Flores. MICROBIOLOGY: Repeat blood and urine cultures negative ANTIMICROBIALS: NONE PHYSICAL EXAMINATION: GENERAL: This is a chronically ill-appearing, elderly man who is in no distress. HEENT: Head atraumatic, normocephalic. Sclerae anicteric. Buccal mucosa dry. NECK: Supple. CHEST: Rise symmetrical. Breath sounds diminished to bases. HEART: S1, S2. ABDOMEN: Soft, bowel tones present. EXTREMITIES: Without cyanosis. ASSESSMENT: 1. Status postsepsis. 2. Status post healthcare-associated pneumonia, possibly aspiration. 3. Status post urinary tract infection. 4. End-stage renal disease. 5. Dysphagia. 6. Encephalopathy. 7. Diabetes. PLAN: The patient remains stable, off antibiotics, repeat cultures negative, continue present care, aspiration precautions Dw staff Problems: Consultation Date/Type/Reason Admit Date/Time Jun 30, 2017 at 19:01 Initial Consult Date 07/01/17 Type of Consultation: id Referring Provider: KE JAVED MD Exam/Review of Systems Vital Signs Vitals Vital Signs Date Time Temp Pulse Resp B/P Pulse Ox O2 Delivery O2 Flow Rate FiO2 07/20/17 14:42 97.5 20 119/70 97 07/20/17 02:40 84 07/19/17 14:00 Room Air Intake and Output 07/19/17 07/19/17 07/20/17 15:00 23:00 07:00 Intake Total 300 ml 520 ml 780 ml Output Total 1800 ml 250 ml Balance -1500 ml 270 ml 780 ml Results Result Diagram: 07/19/17 0534 07/17/17 0441 Results 24 hrs Laboratory Tests Test 07/19/17 17:33 07/19/17 21:23 07/20/17 00:30 07/20/17 05:45 Bedside Glucose 126 140 147 135 Test 07/20/17 11:56 Bedside Glucose 125 Medications Medications Current Medications Miscellaneous Information [facility] TO DOSE ONCE XX ; Start 06/30/17 at 22: 00 Acetaminophen (Ofirmev 1000mg/ 100ml Iv) 100 ml @ 400 mls/hr Q6H PRN IVPB PAIN /FEVER Last administered on 06/30/17 23:53; Admin Dose 400 MLS/HR; Start at 22:00 Morphine Sulfate (morphine) 2 mg Q4H PRN IV PAIN; Start 06/30/17 at 22:00 Ondansetron HCl (Zofran Inj) 4 mg Q6H PRN IV NAUSEA AND/OR VOMITING Last administered on 07/05/17 09:31; Admin Dose 4 MG; Start 06/30/17 at 22:00 Hydralazine HCl (Apresoline) 10 mg Q6 PRN IV ELEVATED SYSTOLIC BP Last administered on 07/15/17 01:55; Admin Dose 10 MG; Start 06/30/17 at 22:00 Insulin Aspart (Novolog Insulin Pen) (Adult SC Insulin - Mild Algorithm)... Q6 SC Last administered on 07/20/17 00:32; Admin Dose 1 UNIT; Start 07/01/17 at 00:00 Cyclobenzaprine HCl (Flexeril) 10 mg BID PRN GTB Hiccups Last administered on 07/03/17 08:40; Admin Dose 10 MG; Start 07/01/17 at 22:00 Acetaminophen (Tylenol Liquid) 650 mg DAILY PRN GTB PAIN AND OR ELEVATED TEMP Last administered on 07/16/17 16:13; Admin Dose 650 MG; Start 07/04/17 at 10: 30 Amlodipine Besylate (Norvasc) 5 mg BID GTB Last administered on 07/20/17 09: 39; Admin Dose 5 MG; Start 07/04/17 at 21:00 Ascorbic Acid (Vitamin C) 500 mg DAILY GTB Last administered on 07/20/17 09: 38; Admin Dose 500 MG; Start 07/05/17 at 09:00 Bisacodyl (Dulcolax Supp) 10 mg Q24H MD Last administered on 07/20/17 09:40; Admin Dose 10 MG; Start 07/04/17 at 10:30 Clonidine (Catapres) 0.2 mg DAILY GTB Last administered on 07/20/17 09:39; Admin Dose 0.2 MG; Start 07/05/17 at 09:00 Diphenhydramine HCl (Benadryl) 25 mg Q6H PRN GTB ITCHING Last administered on 07/20/17 03:22; Admin Dose 25 MG; Start 07/04/17 at 10:30 Hydralazine HCl (Apresoline) 50 mg Q6H PRN PO ELEVATED BLOOD PRESSURE; Start 07/04/17 at 10:30 Insulin Glargine (Lantus) 18 unit QHS SC Last administered on 07/19/17 21:25 ; Admin Dose 18 UNIT; Start 07/04/17 at 21:00 Lansoprazole (Prevacid) 30 mg BID GTB Last administered on 07/20/17 09:39; Admin Dose 30 MG; Start 07/04/17 at 21:00 Nitroglycerin (Nitroglycerin (Sl Tab) 0.4 Mg) 0.4 tab [id number] PRN SL CHEST PAIN; Start 07/04/17 at 10:30 Tamsulosin HCl (Flomax) 0.4 mg DAILY PO ; Start 07/05/17 at 09:00 Zinc Sulfate (Zinc Sulfate) 220 mg DAILY GTB Last administered on 07/20/17 09 :38; Admin Dose 220 MG; Start 07/05/17 at 09:00 Docusate Sodium (Colace Liquid Cup) 200 mg QHS PRN GTB CONSTIPATION Last administered on 07/13/17 05:07; Admin Dose 200 MG; Start 07/04/17 at 10:37 Miscellaneous Information 1 ea NOTE XX ; Start 07/04/17 at 11:00 Glucose (Glutose) 15 gm Q15M PRN PO DECREASED GLUCOSE; Start 07/04/17 at 11:00 Glucose (Glutose) 22.5 gm Q15M PRN PO DECREASED GLUCOSE; Start 07/04/17 at 11: 00 Dextrose (D50w Syringe) 25 ml Q15M PRN IV DECREASED GLUCOSE; Start 07/04/17 at 11:00 Dextrose (D50w Syringe) 50 ml Q15M PRN IV DECREASED GLUCOSE; Start 07/04/17 at 11:00 Glucagon (Glucagen) 1 mg Q15M PRN IM DECREASED GLUCOSE; Start 07/04/17 at 11: 00 Glucose (Glutose) 15 gm Q15M PRN BUCCAL DECREASED GLUCOSE; Start 07/04/17 at 11:00 Famotidine (Pepcid) 10 mg DAILY GTB Last administered on 07/20/17 09:38; Admin Dose 10 MG; Start 07/08/17 at 09:00 Folic Acid (Folic Acid) 1 mg DAILY GTB Last administered on 07/20/17 09:41; Admin Dose 1 MG; Start 07/20/17 at 09:00 Multivit/Ca Carb/ B Cmplx/FA/Prenat (Mireya-Kael) 1 tab DAILY PO Last administered on 07/20/17 09:40; Admin Dose 1 TAB; Start 07/20/17 at 09:00 KAYLA CASTREJON NP Jul 20, 2017 15:12
--- NOTE | 2017-07-20 17:59 | DS ---
Date/Time of Note Date/Time of Note DATE: 07/20/17 TIME: 17:58 Discharge Summary Admission/Discharge Info Admit Date/Time Jun 30, 2017 at 19:01 Discharge Date/Time Patient Condition: Stable Hx of Present Illness The patient is a 72-year-old gentleman with a history of CVA, end-stage renal disease on hemodialysis, diabetes, diastolic heart failure, paroxysmal atrial fibrillation, hypertension, dyslipidemia, urinary retention, needing Flores catheter, dysphagia status post G-tube placement, who was recently admitted at [facility] due to urinary tract infection and acute-on- chronic kidney disease, and was started on hemodialysis. The patient was recuperating at [facility], for the last few days he had a cough and chest congestion and was thought to have upper respiratory infection; however, chest x-ray was unremarkable. The patient was started on Levaquin as an outpatient and followup labs done at [facility] today revealed WBC count of 21,000. Chest x-ray revealed no acute cardiopulmonary disease. The patient was sent to [facility] ER for evaluation. Patient was seen by Dr. Issac Gerard in the ER, and initially was thought to have urinary tract infection and white count was 23.2. UA was positive for 3+ leukocyte esterase, more than 182 WBC; however, the patient had vague upper abdominal symptoms and therefore, CT of the abdomen and ultrasound of the abdomen were ordered. Patient was noted to have gallstones and some pericholecystic fluid, and patient was diagnosed with possible acute cholecystitis. The patient also had bibasilar infiltrate on CT scan. The patient was also thought to have a pneumonia. Therefore, patient will be admitted for further evaluation and management. The patient did not have any vomiting today. The [facility] and did report nausea also. No reported fever or chills today. No bleeding from any site. The patient is a poor historian. The patient is awake, alert and follows simple commands. Patient is hard of hearing, review of system was therefore rather limited. Hospital Course - Possible acute cholecystitis, completed treatment with antibiotics, is able to tolerate G-tube feeding well. Dr. Bojorquez is following in general surgery consultation. Family prefer to manage conservatively versus surgery. - E. coli UTI, s/p meropenem. - Acute kidney injury on chronic kidney disease. Continue hemodialysis per renal. Dr. Cheema is following in nephrology consultation. - History of cerebrovascular accident - Diabetes mellitus. Continue Lantus and NovoLog. - Diastolic congestive heart failure. Continue to monitor intake and output. - Paroxysmal atrial fibrillation, currently in sinus rhythm. - Hypertension. - Hyperlipidemia. - Dysphagia with G-tube. Home Meds Reported Medications Zinc Sulfate* (Zinc Sulfate*) 220 Mg Tablet, 220 MG GTB DAILY, TAB 06/30/17 Ascorbic Acid* (Vitamin C*) 500 Mg Capsule.sa, 500 MG GTB DAILY, CAP 06/30/17 Cran/Vitc/Mannose/Inulin/Brom (Uti-Stat Liquid) 3,875 Mg/30 Ml Liquid, 3875 MG GTB TID 06/30/17 Lansoprazole* (Lansoprazole*) 30 Mg Capsule.dr, 30 MG GTB BID, CAP 06/30/17 Nitroglycerin* (Nitroglycerin* SL) 0.4 Mg Tab.subl, 0.4 MG SL Q5MIN Y for CHEST PAIN, BOTTLE 06/30/17 Insulin Glargine* (Lantus*) 100 Unit/Ml Soln, 18 UNIT SC QHS, #1 VIAL 06/30/17 Hydrocodone/Acetaminophen (Mcdonough 7.5-325 Tablet) 1 Each Tablet, 1 EACH PO Q6 Y for SEVERE PAIN LEVEL 7-10, TAB 06/30/17 Hydralazine Hcl* (Hydralazine Hcl*) 50 Mg Tab, 50 MG PO Q6 Y for ELEVATED BLOOD PRESSURE, #120 TAB 06/30/17 Docusate Sodium* (Colace*) 100 Mg Capsule, 200 MG GTB QHS Y for CONSTIPATION, # 30 CAP 06/30/17 Clonidine Hcl* (Clonidine Hcl*) 0.2 Mg Tablet, 0.2 MG PO DAILY, TAB 06/30/17 Amlodipine Besylate* (Norvasc*) 5 Mg Tablet, 5 MG GTB BID, TAB 06/30/17 Acetaminophen* (Acetaminophen*) 650 Mg Tablet, 650 MG GTB DAILY Y for PAIN AND OR ELEVATED TEMP, #30 TAB 06/30/17 Glucagon,Human Recombinant (Glucagon Emergency Kit) 1 Mg Kit, 1 MG IJ PRN, KIT 04/17/17 Alendronate Sodium* (Fosamax*) 70 Mg Tablet, 70 MG GTB EVERY WEDNESDAY, #4 TAB 04/17/17 Tamsulosin Hcl* (Flomax*) 0.4 Mg Cap.er.24h, 0.4 MG GTB DAILY, CAP 04/17/17 Cranberry Extract (Cranberry) 425 Mg Capsule, 425 MG GTB DAILY, CAP 04/17/17 Bisacodyl* (Bisacodyl*) 10 Mg Supp, 10 MG ID Q24H for CONSTIPATION, SUPP 04/17/17 Diphenhydramine Hcl* (Benadryl*) 25 Mg Cap, 25 MG GTB Q6H Y for ITCHING, CAP 04/17/17 Follow-up Plan Follow-up in hemodialysis center for next hemodialysis Primary Care Provider Aravind Patel MD Time spent on discharge: > 30 minutes Pending Labs Laboratory Tests Test 07/19/17 21:23 07/20/17 00:30 07/20/17 05:45 07/20/17 11:56 Bedside Glucose 140mg/dL (70-220) 147mg/dL (70-220) 135mg/dL (70-220) 125mg/dL (70-220) GEOVANY IBARRA Jul 20, 2017 17:59
--- NOTE | 2017-07-20 19:16 | CONS ---
Date/Time of Note Date/Time of Note DATE: 07/20/17 TIME: 19:14 Assessment/Plan Assessment/Plan Chief Complaint/Hosp Course ESRD S/P UTI G[place]STONE PEG ANEMIA PLAN HD PER ID AND SURGERY SNF Problems: Consultation Date/Type/Reason Admit Date/Time Jun 30, 2017 at 19:01 Initial Consult Date 07/01/17 Type of Consultation: RENAL Referring Provider: KE JAVED MD 24 HR Interval Summary Constitutional: other (NO DISTRESS) Exam/Review of Systems Vital Signs Vitals Vital Signs Date Time Temp Pulse Resp B/P Pulse Ox O2 Delivery O2 Flow Rate FiO2 07/20/17 14:42 97.5 20 119/70 97 07/20/17 02:40 84 07/19/17 14:00 Room Air Intake and Output 07/19/17 07/19/17 07/20/17 15:00 23:00 07:00 Intake Total 300 ml 520 ml 780 ml Output Total 1800 ml 250 ml Balance -1500 ml 270 ml 780 ml Exam Neck: supple Respiratory: clear to auscultation Cardiovascular: regular rate and rhythm Gastrointestinal: soft Musculoskeletal: nl extremities to inspection Extremities: normal pulses Neurological: confused Results Result Diagram: 07/19/17 0534 07/17/17 0441 Results 24 hrs Laboratory Tests Test 07/19/17 21:23 07/20/17 00:30 07/20/17 05:45 07/20/17 11:56 Bedside Glucose 140 147 135 125 Test 07/20/17 18:52 Bedside Glucose 181 Medications Medications Current Medications Miscellaneous Information [facility] TO DOSE ONCE XX ; Start 06/30/17 at 22: 00 Acetaminophen (Ofirmev 1000mg/ 100ml Iv) 100 ml @ 400 mls/hr Q6H PRN IVPB PAIN /FEVER Last administered on 06/30/17 23:53; Admin Dose 400 MLS/HR; Start at 22:00 Morphine Sulfate (morphine) 2 mg Q4H PRN IV PAIN; Start 06/30/17 at 22:00 Ondansetron HCl (Zofran Inj) 4 mg Q6H PRN IV NAUSEA AND/OR VOMITING Last administered on 07/05/17 09:31; Admin Dose 4 MG; Start 06/30/17 at 22:00 Hydralazine HCl (Apresoline) 10 mg Q6 PRN IV ELEVATED SYSTOLIC BP Last administered on 07/15/17 01:55; Admin Dose 10 MG; Start 06/30/17 at 22:00 Insulin Aspart (Novolog Insulin Pen) (Adult SC Insulin - Mild Algorithm)... Q6 SC Last administered on 07/20/17 19:03; Admin Dose 2 UNIT; Start 07/01/17 at 00:00 Cyclobenzaprine HCl (Flexeril) 10 mg BID PRN GTB Hiccups Last administered on 07/03/17 08:40; Admin Dose 10 MG; Start 07/01/17 at 22:00 Acetaminophen (Tylenol Liquid) 650 mg DAILY PRN GTB PAIN AND OR ELEVATED TEMP Last administered on 07/16/17 16:13; Admin Dose 650 MG; Start 07/04/17 at 10: 30 Amlodipine Besylate (Norvasc) 5 mg BID GTB Last administered on 07/20/17 09: 39; Admin Dose 5 MG; Start 07/04/17 at 21:00 Ascorbic Acid (Vitamin C) 500 mg DAILY GTB Last administered on 07/20/17 09: 38; Admin Dose 500 MG; Start 07/05/17 at 09:00 Bisacodyl (Dulcolax Supp) 10 mg Q24H NC Last administered on 07/20/17 09:40; Admin Dose 10 MG; Start 07/04/17 at 10:30 Clonidine (Catapres) 0.2 mg DAILY GTB Last administered on 07/20/17 09:39; Admin Dose 0.2 MG; Start 07/05/17 at 09:00 Diphenhydramine HCl (Benadryl) 25 mg Q6H PRN GTB ITCHING Last administered on 07/20/17 03:22; Admin Dose 25 MG; Start 07/04/17 at 10:30 Hydralazine HCl (Apresoline) 50 mg Q6H PRN PO ELEVATED BLOOD PRESSURE; Start 07/04/17 at 10:30 Insulin Glargine (Lantus) 18 unit QHS SC Last administered on 07/19/17 21:25 ; Admin Dose 18 UNIT; Start 07/04/17 at 21:00 Lansoprazole (Prevacid) 30 mg BID GTB Last administered on 11/28/17at 09:39; Admin Dose 30 MG; Start 07/04/17 at 21:00 Nitroglycerin (Nitroglycerin (Sl Tab) 0.4 Mg) 0.4 tab [id number] PRN SL CHEST PAIN; Start 07/04/17 at 10:30 Tamsulosin HCl (Flomax) 0.4 mg DAILY PO ; Start 07/05/17 at 09:00 Zinc Sulfate (Zinc Sulfate) 220 mg DAILY GTB Last administered on 07/20/17 09 :38; Admin Dose 220 MG; Start 07/05/17 at 09:00 Docusate Sodium (Colace Liquid Cup) 200 mg QHS PRN GTB CONSTIPATION Last administered on 07/13/17 05:07; Admin Dose 200 MG; Start 07/04/17 at 10:37 Miscellaneous Information 1 ea NOTE XX ; Start 07/04/17 at 11:00 Glucose (Glutose) 15 gm Q15M PRN PO DECREASED GLUCOSE; Start 07/04/17 at 11:00 Glucose (Glutose) 22.5 gm Q15M PRN PO DECREASED GLUCOSE; Start 07/04/17 at 11: 00 Dextrose (D50w Syringe) 25 ml Q15M PRN IV DECREASED GLUCOSE; Start 07/04/17 at 11:00 Dextrose (D50w Syringe) 50 ml Q15M PRN IV DECREASED GLUCOSE; Start 07/04/17 at 11:00 Glucagon (Glucagen) 1 mg Q15M PRN IM DECREASED GLUCOSE; Start 07/04/17 at 11: 00 Glucose (Glutose) 15 gm Q15M PRN BUCCAL DECREASED GLUCOSE; Start 07/04/17 at 11:00 Famotidine (Pepcid) 10 mg DAILY GTB Last administered on 07/20/17 09:38; Admin Dose 10 MG; Start 07/08/17 at 09:00 Folic Acid (Folic Acid) 1 mg DAILY GTB Last administered on 07/20/17 09:41; Admin Dose 1 MG; Start 07/20/17 at 09:00 Multivit/Ca Carb/ B Cmplx/FA/Prenat (Mireya-Kael) 1 tab DAILY PO Last administered on 07/20/17 09:40; Admin Dose 1 TAB; Start 07/20/17 at 09:00 ABBY RAMOS MD Jul 20, 2017 19:16
[2017-07-20 21:01] VITALS: BP 125/58; RESP 18
== END 2017-07-20 21:28 | DRG 871 ==
LOC: E/R 14:19 → PP2 19:01
PROVIDERS: ADMIT Internal Medicine; ATTEND Internal Medicine
PROC: 5A1D70Z Performance of Urinary Filtration, Intermittent, Less than 6 Hours Per Day (ICD-10-PCS; principal; 2017-07-11)
DX: A41.9 Sepsis, unspecified organism (principal); J18.9 Pneumonia, unspecified organism; I13.2 Hypertensive heart and chronic kidney disease with heart failure and with stage 5 chronic kidney disease, or end stage renal disease; N17.9 Acute kidney failure, unspecified; G92 Toxic encephalopathy; N18.6 End stage renal disease; E44.0 Moderate protein-calorie malnutrition; L89.153 Pressure ulcer of sacral region, stage 3; I50.30 Unspecified diastolic (congestive) heart failure; K80.42 Calculus of bile duct with acute cholecystitis without obstruction; N39.0 Urinary tract infection, site not specified; Z68.1 Body mass index [BMI] 19.9 or less, adult; N30.00 Acute cystitis without hematuria; E11.22 Type 2 diabetes mellitus with diabetic chronic kidney disease; I10 Essential (primary) hypertension; D64.9 Anemia, unspecified; Z93.1 Gastrostomy status; Z86.73 Personal history of transient ischemic attack (TIA), and cerebral infarction without residual deficits; B96.20 Unspecified Escherichia coli [E. coli] as the cause of diseases classified elsewhere; L89.621 Pressure ulcer of left heel, stage 1; L89.611 Pressure ulcer of right heel, stage 1
CPT/HCPCS: 36415; 71010; 74177; 76705; 78226; 80048; 80053; 81001; 82150; 82962; 83690; 85025; 85610; 85651; 85730; 86140; 87040; 87081; 87086; 90935; 93005; 96374; 96375; 97110; 97116; 97162; 97530; A9537; C9113; J0131; J0360; J0692; J1815; J2185; J2405; J2543; J7042; Q9967

== ENCOUNTER 2017-08-31 17:25 | Inpatient (IN) | END 2017-09-27 23:25 | DRG 314 ==

== ENCOUNTER 2017-10-05 19:00 | Inpatient (IN) | END 2017-10-06 21:00 | disposition EXP | DRG 871 ==